=== PATIENT | female | born 1990 | race Caucasian/White ===

== ENCOUNTER 2018-01-30 10:51 | Outpatient (REF) | payer MEDICAID, SELFPAY ==
[2018-01-30 13:29] LABS: Bacteria Few HPF (Negative); C & S Indicated? No/Sq. Contamination; Casts Negative LPF (Negative); Crystals Negative HPF (Negative); Epithelial Cells Many HPF (Negative); Mucus Trace (Negative); RBC Negative (0-2); WBC 0-2 HPF (0-5)
== END 2018-01-30 11:11 ==
LOC: NCHCN 10:51
PROVIDERS: PCP Nurse Practitioner Family; Visit Provider Nurse Practitioner Family
DX: N39.0 Urinary tract infection, site not specified (principal); R10.9 Unspecified abdominal pain; Z87.442 Personal history of urinary calculi
CPT/HCPCS: 81015

== ENCOUNTER 2018-02-03 09:24 | Emergency (ER) | payer MEDICAID, SELFPAY ==
[2018-02-03 09:28] VITALS: BP 133/88; PULSE 123; RESP 16; TEMP 36.8; O2SAT 96
[2018-02-03 09:49] LABS: Bilirubin Negative (Negative); Blood Moderate (Negative); Clarity Cloudy; Glucose Negative (Negative); Ketones Trace mg/dL (Negative); Leukocyte Esterase Moderate (Negative); Nitrite Negative (Negative); Specific Gravity >= 1.030 (1.005-1.025); Urobilinogen 0.2 EU/dL (Up TO 0.2)
[2018-02-03 09:59] LABS: Epithelial Cells NT HPF (Negative); RBC NT (0-2)
[2018-02-03 10:00] LABS: Bacteria NT HPF (Negative); C & S Indicated? Yes; Casts NT LPF (Negative); Crystals NT HPF (Negative); Mucus NT (Negative)
--- NOTE | 2018-02-03 10:09 | ED.GENADUL_ITS ---
Discharge Plan Disposition Patient Disposition: HOME Condition: Improving Discharge Details Chief Complaint: FlankPain Clinical Impression: Pyelonephritis Primary Care Provider: Vicky Obrine ED Provider: Perla Abbott Home Meds and New Rx's Prescriptions: New sulfamethoxazole-trimethoprim [Bactrim DS] 800-160 mg tablet 1 tab PO BID 14 Days Qty: 28 RF: 0 ibuprofen [Motrin IB] 200 mg tablet 600 mg PO QID PRN (Reason: pain) Qty: 20 RF: 0 Continue methadone [Dolophine] 10 MG tablet 110 mg PO DAILY RF: 0 ibuprofen 400 MG tablet 800 mg PO TID PRNRF: 0 naproxen sodium [Aleve] 220 MG capsule 220 mg PO BID RF: 0 acetaminophen [Mapap Extra Strength] 500 MG tablet 1,000 mg PO Q6H 5 Days Qty: 60 RF: 0 lidocaine [Lidoderm] 1 PATCH adhesive patch,medicated 1 ea Topical Q24H Qty: 4 RF: 0 gabapentin 600 mg Tablet 600 mg PO BID RF: 0 paroxetine HCl [Paxil] 10 mg Tablet 10 mg PO DAILY RF: 0 amoxicillin 125 mg Tablet,Chewable 250 mg PO TID RF: 0 amitriptyline 10 mg Tablet 10 mg PO DAILY RF: 0 albuterol sulfate 90 mcg/actuation Hfa Aerosol Inhaler 1 puff INHALATION Q6H PRNRF: 0 fluticasone [Flovent HFA] 110 mcg/actuation Hfa Aerosol Inhaler 1 puff INHALATION BID RF: 0 acetaminophen [Tylenol] 325 MG tablet 650 mg PO Q4H PRN PRNRF: 0 polyethylene glycol 3350 17 GM powder in packet 17 gm PO DAILY PRN PRN (Reason: Constipation) RF: 0 Discharge Instructions Instructions: Urinary Tract Infection in Women (ED), Kidney Infection (ED) Additional Instructions: Take the antibiotics until finished. Alternate Tylenol and Motrin as needed and directed for pain. Immediately to the emergency department any worsening or new concerning symptoms. Follow-up with your urology at [place] as directed by your primary care doctor as planned. Discharge Data Discharge Date/Time-TO BE ENTERED AT DEPARTURE: 02/03/18 12:03 Discharge Physician: Perla Abbott Medical Decision Making 27-year-old female with left flank pain times 1 week, left lower and suprapubic abdominal pain with dysuria starting today. States symptoms feel similar to previous kidney stones. Heart rate 123 on arrival in triage, now 105 during evaluation room. Remainder vitals within normal limits. Afebrile. Left CVA tenderness and left lower quadrant and suprapubic tenderness. Differential diagnosis includes kidney stone, UTI, pyelonephritis, diverticulitis, muscle strain. Will place an IV, bolus IV fluids, labs, urinalysis and CT renal colic and will give a dose of Toradol and Compazine. 1100 -- Labs reviewed and urinalysis notes large amount of WBCs that obscure the microscopic exam. test negative. Remainder of labs note a normal white blood cell count of 10. CT negative for acute findings. Patient is complaining of pain. History of opiate drug abuse. As there is no acute findings on CT, she complained of left sided tenderness, this can be due to a UTI/Pyelonephritis. Will give a dose of valium for muscle relaxer and dose of antibiotics. 1120 --patient feels better after dose of Valium. She feels good and is requesting to go home. Was sent home with prescription for Bactrim. She also requests a prescription for Motrin. She is instructed to alternate Tylenol and Motrin, finish antibiotics and follow-up with her planned appointment with urology at [place]. She is instructed to return immediately if worse. HPI General Mode of arrival: ambulatory . Date/Time Provider Initiated Documentation: 02/03/18 09:34 . Limitations to Documentation: no limitations . Information obtained by: patient . HPI Narrative: Patient is a 27-year-old female w/ a h/o kidney stones who presents the ED with a complaint of left flank pain and fatigue times 1 week, and lower abdominal pain and dysuria today. States she had lower abdominal pain with urination 3 weeks ago but that improved and she thought she possibly passed a kidney stone. Patient states her pain for some like previous kidney stones he has had in the past. She states her abdominal pain burning and located in the suprapubic region and left lower quadrant. She admits to nausea but denies any vomiting, diarrhea, hematuria. She states she is sexually active with one partner and does not use protection but denies any vaginal discharge, lesions, or known exposure to STD. She states her last bowel movement was last night and within normal limits and denies any rectal bleeding. Past medical history: Asthma, depression, migraines, fibromyalgia, kidney stones , AVNRT Surgical history: , tubal ligation, thoracic spinal fusion, AV node ablation, lithotripsy, foot surgery Social history: Smokes tobacco, occasional alcohol use, daily marijuana. Previous history of heroin and prescription drug abuse Medications: Methadone, Motrin, Tylenol, amoxicillin for 5 days for a current tooth abscess Allergies: Demerol (anaphylaxis), lithium, Zoloft PCP: Vicky Obrien Related Data Home Medications Medication Instructions Recorded Confirmed methadone [Dolophine] 110 mg PO DAILY 12/25/15 02/03/18 acetaminophen [Tylenol] 650 mg PO Q4H PRN PRN tab 04/27/17 02/03/18 polyethylene glycol 3350 17 gm PO DAILY PRN PRN packet 04/27/17 02/03/18 acetaminophen [Mapap Extra 1,000 mg PO Q6H 5 Days #60 tab 11/19/17 02/03/18 Strength] ibuprofen 800 mg PO TID PRN 11/19/17 02/03/18 lidocaine [Lidoderm] 1 ea TOPICAL Q24H #4 patch 11/19/17 02/03/18 naproxen sodium [Aleve] 220 mg PO BID 11/19/17 02/03/18 albuterol sulfate 1 puff INHALATION Q6H PRN 02/03/18 02/03/18 amitriptyline 10 mg PO DAILY 02/03/18 02/03/18 amoxicillin 250 mg PO TID 02/03/18 02/03/18 fluticasone [Flovent HFA] 1 puff INHALATION BID 02/03/18 02/03/18 gabapentin 600 mg PO BID 02/03/18 02/03/18 ibuprofen [Motrin IB] 600 mg PO QID PRN #20 tab 02/03/18 paroxetine HCl [Paxil] 10 mg PO DAILY 02/03/18 02/03/18 sulfamethoxazole-trimethoprim 1 tab PO BID 14 Days #28 tab 02/03/18 [Bactrim DS] Previous Rx's Medication Instructions Recorded acetaminophen [Tylenol] 650 mg PO Q4H PRN PRN tab 04/27/17 polyethylene glycol 3350 17 gm PO DAILY PRN PRN packet 04/27/17 acetaminophen [Mapap Extra 1,000 mg PO Q6H 5 Days #60 tab 11/19/17 Strength] lidocaine [Lidoderm] 1 ea TOPICAL Q24H #4 patch 11/19/17 ibuprofen [Motrin IB] 600 mg PO QID PRN #20 tab 02/03/18 sulfamethoxazole-trimethoprim 1 tab PO BID 14 Days #28 tab 02/03/18 [Bactrim DS] Allergies Allergy/AdvReac Type Severity Reaction Status Date / Time meperidine HCl [From Demerol] Allergy Severe Anaphylaxsi Unverified 11/19/17 10: 09 s venom-honey bee Allergy Severe anaphylaxis Unverified 11/19/17 10:09 [bee venom (honey bee)] lithium AdvReac Mild NAUSEA Unverified 11/19/17 10:09 sertraline HCl [From Zoloft] AdvReac Mild NIGHTMARES Unverified 11/19/17 10:09 General Stated Complaint: FlankPain KALINA: 3 Review of Systems Review of Systems All systems reviewed & are unremarkable except as noted in HPI and below Constitutional Denies chills, Denies excessive sweating, Reports fatigue, Denies fever(s), Denies weakness and Denies weight loss Eyes Reports system reviewed and no additional complaints, except as docu and Denies blurry vision ENT Denies vertigo, Denies dizziness, Denies otalgia, Denies nasal congestion, Denies sore throat and Denies throat swelling Cardiovascular Denies chest pain, Denies syncope, Denies rapid heart rate and Denies dyspnea Respiratory Denies dyspnea Gastrointestinal Reports abdominal pain, Denies diarrhea, Reports nausea and Denies vomiting Genitourinary Denies hematuria, Denies dysuria and Reports flank pain Musculoskeletal Reports back pain and Denies joint swelling Integumentary/Breasts Denies lesions and Denies rash Neurologic Denies behavioral changes, Denies confusion, Denies vertigo, Denies dizziness, Denies syncope and Denies weakness Psychiatric Denies behavioral changes, Denies confusion and Denies depression Endocrine Denies excessive sweating and Reports fatigue Hematologic/Lymphatic Denies easy bruising and Denies lymphadenopathy Allergic/Immunologic Denies throat swelling PFSH Social History Smoking/Tobacco Use Status: Current every day Exam Const General: cooperative and healthy appearing Orientation: alert and awake HENFL Head: normal to inspection Ears: hearing grossly normal bilaterally and external ears normal General nose exam: external nose normal Face and sinus: normal facial exam Mouth: oral mucosae normal Eyes General: appearance normal, both eyes and all related structures Eyelids: eyelids normal EOM: EOM intact bilaterally Neck Neck: normal visual inspection Lymphatic: no lymphadenopathy noted Chest Chest: normal inspection of the chest Resp Effort & Inspection: normal respiratory effort and able to speak in complete sentences Auscultation: clear to auscultation bilaterally Cardio Rate: regular rate Rhythm: regular rhythm GI Inspection: normal to inspection Palpation: soft, not firm, no guarding, no hepatosplenomegaly, no masses and tender in the LLQ and suprapubicly Auscultation: normal bowel sounds Back/Spine/Pelvis Back: CVA tenderness (Left side) Thoracic/Lumbar Spine: surgical scar(s) present (extending along length of midline thoracic spine) Skin General skin exam: no rashes or lesions noted Neuro General: alert and awake Cognition: normal cognition Speech: speech normal Gait: normal gait Motor: muscle tone normal throughout Sensory Exam: no sensory deficits noted Extrem General: normal to inspection, full ROM and no edema Psych Appearance: grossly normal Mental Status: mental status grossly normal Speech and Movement: speech and movement normal Affect: normal affect Thought Process: normal Course Vital Signs Temperature 98.2 F 02/03/18 09:28 Pulse 123 H 02/03/18 09:28 Respiratory Rate 16 02/03/18 09:28 Blood Pressure 133/88 02/03/18 09:28 Pulse Oximetry 96 02/03/18 09:28 Temperature 98.2 F 02/03/18 09:28 Temperature Source Temporal Artery Scan 02/03/18 09:28 Pulse 123 H 02/03/18 09:28 Respiratory Rate 16 02/03/18 09:28 Respiratory Effort Non-Labored 02/03/18 09:31 Blood Pressure 133/88 02/03/18 09:28 Blood Pressure Position Sitting 02/03/18 09:28 Pulse Oximetry 96 02/03/18 09:28 Oxygen Delivery Method Room Air 02/03/18 09:28 Oxygen Flow Rate 0 02/03/18 09:28 Pain Level 6 02/03/18 09:32 Lab/Test Results Lab/Test Results: 02/03/18 09:41 Urine - Reflex from Ua Urine Culture - Pending Laboratory Tests Range/Units 02/03/18 09:41 Urine Color (Yellow) Yellow Urine Clarity Cloudy Urine pH (5-8) 6.0 Ur Specific [place] (1.005-1.025) >= 1.030 H Urine Protein (Negative) mg/dL 30 H Urine Ketones (Negative) mg/dL Trace H Urine Blood (Negative) Moderate H Urine Nitrite (Negative) Negative Urine Bilirubin (Negative) Negative Urine Urobilinogen (Up TO 0.2) EU/dL 0.2 Ur Leukocyte Esterase (Negative) Moderate H Urine RBC NT Urine WBC (0-5) HPF Ur Epithelial Cells NT Urine Crystals NT Urine Bacteria NT Urine Casts NT Urine Mucus NT Ur Culture Indicated? Yes Urine Glucose (Negative) mg/dL Negative
[2018-02-03 10:16] LABS: Abs Immature Grans 0.04 k/cumm (0.0-0.09); Absolute Basophil Count 0.02 k/cumm (0.0-0.2); Absolute Eosinophil Count 0.25 k/cumm (0.0-0.7); Absolute Lymphocyte Count 2.33 k/cumm (1.2-3.4); Absolute Monocyte Count 0.79 k/cumm (0.11-0.7); Absolute Neutrophil Count 6.85 k/cumm (1.2-6.7); Basophils % 0.2; Eosinophils % 2.4; HCT 39.6 % (36.0-46.0); HGB 13.1 g/dL (12.0-15.5); Immature Grans % 0.4; Lymphocytes % 22.7; Mean Corp. HGB Concentration 33.1 g/dL (32.0-36.0); Mean Corpuscular Hemoglobin 31.7 pg (27.0-33.0); Mean Corpuscular Volume 95.9 fL (80-95); Monocytes % 7.7; Neutrophils % 66.6; Platelet Count 283 x1000/uL (130-400); RBC 4.13 m/cumm (4.00-5.20); RBC Distribution Width 12.3 % (11.7-14.6); White Blood Cell Count 10.28 k/cumm (4.4-10.8)
[2018-02-03] MEDS: Normal Saline 1,000 ML 1000 ML IV (10:16)
[2018-02-03] MEDS: Ketorolac 30 MG/ML VIAL IVP (10:17)
[2018-02-03] MEDS: Prochlorperazine 10 MG/2 ML VIAL IVP (10:17)
[2018-02-03 10:29] LABS: ALT 66 U/L (12-78); AST 40 U/L (15-37); Albumin 3.2 g/dL (3.4-5.0); Alkaline Phosphatase 137 U/L (46-116); Anion Gap 7.5 mmol/L (3-11); BUN 14 mg/dL (7-18); Bilirubin, Total 0.2 mg/dL (0.2-1.0); CO2 30.5 mmol/L (21.0-32.0); CREATININE 0.85 mg/dL (0.55-1.02); Calcium 8.6 mg/dL (8.5-10.1); Chloride 103 mmol/L (98-107); Glucose 119 mg/dL (70-100); Lipase 73 U/L (73-393); Potassium 3.9 mmol/L (3.5-5.1); Sodium 141 mmol/L (136-145); Total Protein 7.6 g/dL (6.4-8.2)
--- NOTE | 2018-02-03 10:32 | DI.CT_ITS ---
SYMPTOMS/DIAGNOSIS: LEFT FLANK PAIN, ? KIDNEY STONE ABDOMINAL AND PELVIC CT: CT examination of the abdomen and pelvis was performed without contrast administration. There are Tejeda rods in the lower thoracic spine. Images obtained through the lung bases are unremarkable. There is biconvex thoracolumbar scoliosis. Visualized portions of the liver and spleen are unremarkable. Gallbladder, bile ducts and pancreas appear unremarkable. Adrenals and kidneys are normal in appearance. No evidence of urinary tract calcification or obstruction. No significant abdominal wall hernia is seen. No significant abdominal or pelvic adenopathy is seen. Appendix appears normal. COLLECTIONS TECHNICIAN structures appear intact. No evidence of diverticulitis or bowel obstruction. CONCLUSION: Negative examination of the abdomen and pelvis. No evidence of urinary tract obstruction or calcification.
--- NOTE | 2018-02-03 10:55 | DI.VRAD_ITS ---
EXAM: CT Abdomen and Pelvis Without Intravenous Contrast CLINICAL HISTORY: 27 years old, female; Pain; Abdominal pain; Flank; Left; Patient HX: Left flank pain x3 days, HX of kidney stones with removal on right side years ago. ; Additional info: Best images obtained due to artifact from scoliosis rodding in mid back. TECHNIQUE: Axial computed tomography images of the abdomen and pelvis without intravenous contrast. All CT scans at this facility use at least one of these dose optimization techniques: automated exposure control; mA and/or kV adjustment per patient size (includes targeted exams where dose is matched to clinical indication); or iterative reconstruction. Coronal and sagittal reformatted images were created and reviewed. COMPARISON: CT CHEST FOR PE, ABD PELVIS W 04/24/2017 12:00 AM FINDINGS: Appendix is normal. No renal or ureteral stones. Extensive sonya fixation of the thoracic spine. Normal appearing solid organs. No intestinal obstruction. No obstructive uropathy. No free fluid. No free air. No inflammatory changes. IMPRESSION: No specific etiology identified for the patient's symptoms. Dictated and Authenticated by: Al Garcia MD. Ordering:HALIMA DUPREE MD
[2018-02-03] MEDS: Diazepam 5 MG TAB PO (11:05)
[2018-02-03] MEDS: Sulfameth/Trimeth DS TAB 1 TAB PO (11:36)
[2018-02-03 12:02] VITALS: BP 126/85; PULSE 60; RESP 12; TEMP 36.6; O2SAT 98
== END 2018-02-03 12:03 | disposition home or self-care (01) ==
PROVIDERS: Emergency Provider Physician Assistant; PCP Nurse Practitioner Family
DX: N10 Acute pyelonephritis (principal); Z87.442 Personal history of urinary calculi
CPT/HCPCS: 36415; 80053; 83690; 87077; 96361; 96374; 96375; 99284; 74176; 81003; 81015; 85025; 87086; 87186; 99285; J0780; J1885

== ENCOUNTER 2018-02-14 22:11 | Emergency (ER) | payer MEDICAID, SELFPAY ==
[2018-02-14] VITALS (10 sets, daily range): BP systolic 126; BP diastolic 77; PULSE 71–94; RESP 11–23; TEMP 36.7; O2SAT 98
[2018-02-14 22:38] LABS: Bilirubin Negative (Negative); Blood Negative (Negative); Clarity Clear; Glucose Negative (Negative); Ketones Negative (Negative); Leukocyte Esterase Trace (Negative); Nitrite Negative (Negative); Specific Gravity 1.025 (1.005-1.025); Urobilinogen 0.2 EU/dL (Up TO 0.2); pH 6.5 (5-8)
[2018-02-14 22:46] LABS: Bacteria Few HPF (Negative); Epithelial Cells Many HPF (Negative); RBC Negative (0-2)
[2018-02-14 22:47] LABS: C & S Indicated? No/Sq. Contamination; Casts Negative LPF (Negative); Crystals Negative HPF (Negative); Mucus Negative (Negative)
[2018-02-14] MEDS: Promethazine 25 MG TAB PO (23:04)
[2018-02-14] MEDS: Ketorolac 15 MG/ML VIAL IVP (23:05)
[2018-02-14] MEDS: Normal Saline 1,000 ML 1000 ML IV (23:05)
[2018-02-14 23:09] LABS: Abs Immature Grans 0.03 k/cumm (0.0-0.09); Absolute Basophil Count 0.02 k/cumm (0.0-0.2); Absolute Eosinophil Count 0.29 k/cumm (0.0-0.7); Absolute Lymphocyte Count 2.44 k/cumm (1.2-3.4); Absolute Monocyte Count 0.58 k/cumm (0.11-0.7); Absolute Neutrophil Count 5.86 k/cumm (1.2-6.7); Basophils % 0.2; Eosinophils % 3.1; HCT 40.1 % (36.0-46.0); HGB 13.3 g/dL (12.0-15.5); Immature Grans % 0.3; Lymphocytes % 26.5; Mean Corp. HGB Concentration 33.2 g/dL (32.0-36.0); Mean Corpuscular Hemoglobin 31.7 pg (27.0-33.0); Mean Corpuscular Volume 95.7 fL (80-95); Mean Platelet Volume 10.5 fL (8.0-11.0); Monocytes % 6.3; Neutrophils % 63.6; Platelet Count 255 x1000/uL (130-400); RBC 4.19 m/cumm (4.00-5.20); RBC Distribution Width 12.4 % (11.7-14.6); White Blood Cell Count 9.22 k/cumm (4.4-10.8)
[2018-02-14 23:16] LABS: ALT 62 U/L (12-78); AST 38 U/L (15-37); Albumin 3.5 g/dL (3.4-5.0); Alkaline Phosphatase 125 U/L (46-116); Anion Gap 8.6 mmol/L (3-11); BUN 18 mg/dL (7-18); Bilirubin, Total 0.3 mg/dL (0.2-1.0); CO2 30.4 mmol/L (21.0-32.0); CREATININE 0.88 mg/dL (0.55-1.02); Chloride 101 mmol/L (98-107); Glucose 121 mg/dL (70-100); Potassium 3.6 mmol/L (3.5-5.1); Sodium 140 mmol/L (136-145); Total Protein 7.6 g/dL (6.4-8.2)
[2018-02-15] VITALS (30 sets, daily range): PULSE 67–95; RESP 8–18
--- NOTE | 2018-02-15 00:50 | W.ED.GENAD ---
Discharge Plan Disposition Patient Disposition: HOME Condition: Stable Discharge Details Chief Complaint: FlankPain Clinical Impression: UTI (urinary tract infection), Back pain Primary Care Provider: Vicky Obrien ED Provider: Macho Hinojosa Home Meds and New Rx's Prescriptions: New sulfamethoxazole-trimethoprim [Bactrim DS] 800-160 mg tablet 1 tab PO BID 7 Days Qty: 14 RF: 0 Continue methadone [Dolophine] 10 MG tablet 110 mg PO DAILY RF: 0 naproxen sodium [Aleve] 220 MG capsule 220 mg PO BID RF: 0 acetaminophen [Mapap Extra Strength] 500 MG tablet 1,000 mg PO Q6H 5 Days Qty: 60 RF: 0 gabapentin 600 mg Tablet 600 mg PO BID RF: 0 paroxetine HCl [Paxil] 10 mg Tablet 10 mg PO DAILY RF: 0 amitriptyline 10 mg Tablet 10 mg PO DAILY RF: 0 albuterol sulfate 90 mcg/actuation Hfa Aerosol Inhaler 1 puff INHALATION Q6H PRNRF: 0 fluticasone [Flovent HFA] 110 mcg/actuation Hfa Aerosol Inhaler 1 puff INHALATION BID RF: 0 ibuprofen [Motrin IB] 200 mg tablet 600 mg PO QID PRN (Reason: pain) Qty: 20 RF: 0 acetaminophen [Tylenol] 325 MG tablet 650 mg PO Q4H PRN PRNRF: 0 polyethylene glycol 3350 17 GM powder in packet 17 gm PO DAILY PRN PRN (Reason: Constipation) RF: 0 Discontinued sulfamethoxazole-trimethoprim [Bactrim DS] 800-160 mg tablet 1 tab PO BID 14 Days Qty: 28 RF: 0 Discharge Instructions Instructions: Urinary Tract Infection in Women (ED), Back Pain (ED) Additional Instructions: Return to the emergency department for any new or worsening symptoms otherwise feel your antibiotics and take them as prescribed. If you are not improving over the next week follow-up with your primary care provider for reassessed Referrals: Vicky Obrien [Primary Care Provider] - (As needed for reassessment or if not improving over the next) Discharge Data Discharge Date/Time-TO BE ENTERED AT DEPARTURE: 02/15/18 05:05 Medical Decision Making Patient presenting to the emergency department for chief complaint of urinary tract infection with back pain. Patient states that she has previously had symptoms like this with urinary frequency and urgency with some slight dysuria and ended up with a kidney infection. Patient states a couple weeks ago she was seen here in the emergency department for urinary tract infection and prescribed antibiotics which she never filled or started. Over the past couple days she has felt increased malaise, increased back pain, and her urinary symptoms. Patient states that she is concerned that she has a kidney infection. Physical exam shows diffuse back tenderness both with CVA testing but also to even light touch of the back which I feel is abnormal. Otherwise physical exam is unremarkable. Plan to check labs, give IV fluids, ketorolac Zofran and check urinalysis After review of urinalysis which shows only mild infection versus contamination and labs are otherwise unremarkable patient reassessed. Patient continues to have diffuse back tenderness to even light palpation. I feel that patient may have a borderline UTI and because she is symptomatic I do feel that she needs treatment. In regards to patient's back pain I doubt this is pyelonephritis due to diffuse even light touch of the shoulders patient states excruciating discomfort. Still plan to place patient on Bactrim DS twice daily for a week. In regards to her back pain, patient is sleeping in a hotel bed which I feel may be the source of the diffuse nonfocal tenderness. Patient is otherwise stable with no emergent concerns I feel that she is stable for discharge. Thoroughly discussed with patient need to complete antibiotic therapy if prescribed and significant risk for sepsis and if she does not follow recommended orders. After discussion of diagnosis and plan of care patient has no further needs, questions, or concerns and states clear understanding to return to the emergency department for any worsening symptoms. HPI General Mode of arrival: EMS. Date/Time Provider Initiated Documentation: 02/14/18 22:31. Limitations to Documentation: no limitations. Information obtained by: RN notes reviewed and old records reviewed. History of Present Illness 27 year old F presents to the emergency department with the chief complaint of UTI, with intensity rated at 6. Quality is described as aching, and is localized to the back. Patient started experiencing this day(s) (3) and it has been constant. No relieving factors improve symptom(s), No exacerbating factors reported . Patient notes no other symptoms.. Patient did receive the following treatments prior to arrival, none Related Data Home Medications Medication Instructions Recorded Confirmed methadone [Dolophine] 110 mg PO DAILY 12/25/15 02/14/18 acetaminophen [Tylenol] 650 mg PO Q4H PRN PRN tab 04/27/17 02/14/18 polyethylene glycol 3350 17 gm PO DAILY PRN PRN packet 04/27/17 02/14/18 acetaminophen [Mapap Extra 1,000 mg PO Q6H 5 Days #60 tab 11/19/17 02/14/18 Strength] naproxen sodium [Aleve] 220 mg PO BID 11/19/17 02/14/18 albuterol sulfate 1 puff INHALATION Q6H PRN 02/03/18 02/14/18 amitriptyline 10 mg PO DAILY 02/03/18 02/14/18 fluticasone [Flovent HFA] 1 puff INHALATION BID 02/03/18 02/14/18 gabapentin 600 mg PO BID 02/03/18 02/14/18 ibuprofen [Motrin IB] 600 mg PO QID PRN #20 tab 02/03/18 02/14/18 paroxetine HCl [Paxil] 10 mg PO DAILY 02/03/18 02/14/18 sulfamethoxazole-trimethoprim 1 tab PO BID 7 Days #14 tab 02/15/18 [Bactrim DS] Previous Rx's Medication Instructions Recorded acetaminophen [Tylenol] 650 mg PO Q4H PRN PRN tab 04/27/17 polyethylene glycol 3350 17 gm PO DAILY PRN PRN packet 04/27/17 acetaminophen [Mapap Extra 1,000 mg PO Q6H 5 Days #60 tab 11/19/17 Strength] ibuprofen [Motrin IB] 600 mg PO QID PRN #20 tab 02/03/18 sulfamethoxazole-trimethoprim 1 tab PO BID 7 Days #14 tab 02/15/18 [Bactrim DS] Allergies Allergy/AdvReac Type Severity Reaction Status Date / Time meperidine HCl [From Demerol] Allergy Severe Anaphylaxsi Unverified 02/14/18 22:24 s venom-honey bee Allergy Severe anaphylaxis Unverified 02/14/18 22:24 [bee venom (honey bee)] lithium AdvReac Mild NAUSEA Unverified 02/14/18 22:24 sertraline HCl [From Zoloft] AdvReac Mild NIGHTMARES Unverified 02/14/18 22:24 General Stated Complaint: FlankPain KALINA: 3 Review of Systems Constitutional Denies body ache(s), Reports chills, Reports fever(s), Denies malaise and Denies weakness Cardiovascular Denies chest pain Respiratory Reports system reviewed and no additional complaints, except as docu Gastrointestinal Denies abdominal pain, Denies nausea and Denies vomiting Genitourinary Reports as per HPI, Denies hematuria, Reports urinary frequency, Reports dysuria, Reports urinary hesitancy, Reports urinary urgency and Denies vaginal discharge Musculoskeletal Reports back pain Neurologic Denies confusion and Denies weakness Psychiatric Denies confusion [facility] Social History Smoking/Tobacco Use Status: Current every day Exam Const General: cooperative and no acute distress Orientation: alert, awake and oriented x3 Resp Effort & Inspection: normal respiratory effort and able to speak in complete sentences Auscultation: clear to auscultation bilaterally Cardio Rate: regular rate Rhythm: regular rhythm Heart Sounds: S1 normal and S2 normal GI Palpation: nontender Back/Spine/Pelvis Back: CVA tenderness and back tenderness (Diffuse nonfocal) Cervical Spine: cervical ROM normal Thoracic/Lumbar Spine: thoraco-lumbar ROM normal Neuro General: alert, awake and oriented x3 Extrem General: normal capillary refill Course Vital Signs Temperature 36.7 C 02/14/18 22:19 Pulse 90 02/14/18 22:19 Respiratory Rate 13 02/14/18 22:19 Blood Pressure 126/77 02/14/18 22:19 Pulse Oximetry 98 02/14/18 22:19 Temperature 36.7 C 02/14/18 22:19 Temperature Source Skin 02/14/18 22:19 Pulse 90 02/14/18 22:19 Respiratory Rate 13 02/14/18 22:19 Respiratory Effort Non-Labored 02/14/18 22:22 Blood Pressure 126/77 02/14/18 22:19 Blood Pressure Position Sitting 02/14/18 22:19 Pulse Oximetry 98 02/14/18 22:19 Oxygen Delivery Method Room Air 02/14/18 22:19 Oxygen Flow Rate 0 02/14/18 22:19 Pain Level 8 02/14/18 23:05 Lab/Test Results Lab/Test Results: Laboratory Tests Range/Units 02/14/18 02/14/18 02/14/18 22:15 22:40 22:40 WBC (4.4-10.8) k/cumm 9.22 RBC (4.00-5.20) m/cumm 4.19 Hgb (12.0-15.5) g/dL 13.3 Hct (36.0-46.0) % 40.1 MCV (80-95) fL 95.7 H MCH (27.0-33.0) pg 31.7 MCHC (32.0-36.0) g/dL 33.2 RDW (11.7-14.6) % 12.4 Plt Count (130-400) x1000/uL 255 MPV (8.0-11.0) fL 10.5 Immature Gran % 0.3 Neutrophils % 63.6 Lymphocytes % 26.5 Monocytes % 6.3 Eosinophils % 3.1 Basophils % 0.2 Absolute Neutrophils (1.2-6.7) k/cumm 5.86 Absolute Lymphocytes (1.2-3.4) k/cumm 2.44 Absolute Monocytes (0.11-0.7) k/cumm 0.58 Absolute Eosinophils (0.0-0.7) k/cumm 0.29 Absolute Basophils (0.0-0.2) k/cumm 0.02 Sodium (136-145) mmol/L 140 Potassium (3.5-5.1) mmol/L 3.6 Chloride (98-107) mmol/L 101 Carbon Dioxide (21.0-32.0) mmol/L 30.4 Anion Gap (3-11) mmol/L 8.6 BUN (7-18) mg/dL 18 Creatinine (0.55-1.02) mg/dL 0.88 Estimated GFR/1.73 m2 (mL/min/1.73m2) >= 60.00 Glucose (70-100) mg/dL 121 H Calcium (8.5-10.1) mg/dL 9.0 Total Bilirubin (0.2-1.0) mg/dL 0.3 AST (15-37) U/L 38 H ALT (12-78) U/L 62 Alkaline Phosphatase (46-116) U/L 125 H Total Protein (6.4-8.2) g/dL 7.6 Albumin (3.4-5.0) g/dL 3.5 Urine Color (Yellow) Yellow Urine Clarity Clear Urine pH (5-8) 6.5 Ur Specific [place] (1.005-1.025) 1.025 Urine Protein (Negative) mg/dL Negative Urine Ketones (Negative) mg/dL Negative Urine Blood (Negative) Negative Urine Nitrite (Negative) Negative Urine Bilirubin (Negative) Negative Urine Urobilinogen (Up TO 0.2) EU/dL 0.2 Ur Leukocyte Esterase (Negative) Trace H Urine RBC (0-2) Negative Urine WBC (0-5) HPF 5-10 Ur Epithelial Cells (Negative) HPF Many Urine Crystals (Negative) HPF Negative Urine Bacteria (Negative) HPF Few Urine Casts (Negative) LPF Negative Urine Mucus (Negative) Negative Ur Culture Indicated? No/sq. contamination Urine Glucose (Negative) mg/dL Negative
[2018-02-15] MEDS: Sulfameth/Trimeth DS TAB 1 TAB PO (01:56)
== END 2018-02-15 05:05 | disposition home or self-care (01) ==
PROVIDERS: Emergency Provider Nurse Practitioner Family; PCP Nurse Practitioner Family
DX: N39.0 Urinary tract infection, site not specified (principal); M54.9 Dorsalgia, unspecified
CPT/HCPCS: 80053; 96361; 96374; 99284; 81003; 81015; 85025; J1885

== ENCOUNTER 2018-03-01 15:54 | Outpatient (REF) | payer MEDICAID, SELFPAY | END 2018-03-01 16:14 | LOC: NCHCN 15:54 | PROVIDERS: PCP Nurse Practitioner Family; Visit Provider Nurse Practitioner | DX: N39.0 Urinary tract infection, site not specified (principal) | CPT/HCPCS: 87086 ==

== ENCOUNTER 2018-03-09 15:04 | Outpatient (CLI) | payer MEDICAID, SELFPAY ==
--- NOTE | 2018-03-09 14:55 | DI.RAD_ITS ---
SYMPTOMS/DIAGNOSIS: SHORTNESS OF BREATH, R06.02 PA AND LATERAL CHEST: Comparison 05/29/17. There are again spinal rods traversing the thoracic spine. There is again seen a right convex scoliosis of the thoracic spine. The heart size and pulmonary vasculature are within normal limits. The lungs are clear and well expanded. No effusions or pneumothoraces are identified. IMPRESSION: No acute pulmonary process.
== END 2018-03-09 15:24 ==
PROVIDERS: PCP Nurse Practitioner Family; Visit Provider Nurse Practitioner Family
DX: R06.02 Shortness of breath (principal)
CPT/HCPCS: 71046

== ENCOUNTER 2018-03-26 12:03 | Emergency (ER) | payer MEDICAID, SELFPAY ==
[2018-03-26] VITALS (32 sets, daily range): BP systolic 102–154; BP diastolic 58–93; PULSE 64–122; RESP 9–25; TEMP 36.8–37.3; O2SAT 85–99
--- NOTE | 2018-03-26 12:15 | W.ED.GENAD ---
Discharge Plan Disposition Patient Disposition: HOME Condition: Stable Discharge Details Chief Complaint: GenMedical Clinical Impression: Community acquired pneumonia Primary Care Provider: Vicky Obrien ED Provider: Charisma Islas Home Meds and New Rx's Prescriptions: New doxycycline hyclate 100 mg tablet 100 mg PO BID Qty: 19 RF: 0 Continue methadone [Dolophine] 10 MG tablet 120 mg PO DAILY RF: 0 naproxen sodium [Aleve] 220 MG capsule 220 mg PO BID RF: 0 acetaminophen [Mapap Extra Strength] 500 MG tablet 1,000 mg PO Q6H 5 Days Qty: 60 RF: 0 gabapentin 600 mg Tablet 600 mg PO BID RF: 0 paroxetine HCl [Paxil] 10 mg Tablet 10 mg PO DAILY RF: 0 albuterol sulfate 90 mcg/actuation Hfa Aerosol Inhaler 1 puff INHALATION Q6H PRNRF: 0 fluticasone [Flovent HFA] 110 mcg/actuation Hfa Aerosol Inhaler 1 puff INHALATION BID RF: 0 ibuprofen [Motrin IB] 200 mg tablet 600 mg PO QID PRN (Reason: pain) Qty: 20 RF: 0 acetaminophen [Tylenol] 325 MG tablet 650 mg PO Q4H PRN PRNRF: 0 polyethylene glycol 3350 17 GM powder in packet 17 gm PO DAILY PRN PRN (Reason: Constipation) RF: 0 Discharge Instructions Instructions: Sleep Apnea (GEN), Community Acquired Pneumonia (ED) Additional Instructions: Please return immediately to the emergency department if you develop any new or worsening symptoms or if you become otherwise concerned. It is extremely important that you make an appointment to be seen in follow-up for this visit by your primary care doctor within the next 1-2 weeks. Referrals: Vicky Obrien [Primary Care Provider] - Medical Decision Making Ghada Ervin is a 27-year-old woman with history of IV drug use, brain aneurysm status post coiling, AVNRT status post ablation, on methadone presenting to the emergency department with 1 month of fevers, cough, shortness of breath and vomiting/diarrhea since yesterday. On exam patient is well and nontoxic appearing. She is tachycardic without murmur, lungs are clear. There is no abdominal tenderness. There is no rash. No posterior calf tenderness. Neuro exam is grossly nonfocal. Patient is afebrile here concern for persistent UTI, pneumonia, metabolic/light derangement, dehydration less likely PE, endocarditis. Exam/history not consistent with meningitis, ACS, acute emergent intra-abdominal process. Plan for EKG, screening labs, IV fluid hydration, chest x-ray, UA. Will monitor and reassess. Chest x-ray shows possible PNA, labs show mild leukocytosis. Patient with intermittent O2 sat drops into high 80s while sleeping. Patient's boyfriend reports that he has noticed. Will patient breathes irregularly at night while sleeping. Possible sleep apnea. Patient with negative d-dimer, however given patient complaining of shortness of breath, chest pain will plan for CT chest. CT chest shows right middle and lower lobe pneumonia. Will treat with doxycycline to avoid QT prolonging medications. Lengthy discussion with patient regarding findings, return to emergency department precautions, and importance of outpatient follow-up with PCP for her pneumonia and possible sleep apnea. Patient is amenable to the plan. Medical Records Medical records reviewed: Yes I reviewed the patient's medical records. Imaging Data Radiologic Study: Attestation: I personally reviewed and interpreted this imaging study as follows: Radiologist's impression: PA AND LATERAL CHEST: Comparison 05/29/17 and 03/09/18. The heart size and pulmonary vasculature are stable. The spinal rods appear stable in position. There is a question of increased lung markings in the right base compared to prior examinations. The left lung is clear. No effusions or pneumothoraces are identified. IMPRESSION: Question of a right basilar infiltrate. This may represent a developing pneumonia. Clinical correlation is recommended. Lab Data Lab results reviewed: Yes I reviewed the patient's lab results. Lab results narrative: urine preg neg per nursing 03/26/18 13:20 Blood Blood Culture - Pending 03/26/18 13:05 Blood Blood Culture - Pending Laboratory Tests Range/Units 03/26/18 03/26/18 03/26/18 13:05 13:05 13:05 WBC (4.4-10.8) k/cumm RBC (4.00-5.20) m/cumm Hgb (12.0-15.5) g/dL Hct (36.0-46.0) % MCV (80-95) fL MCH (27.0-33.0) pg MCHC (32.0-36.0) g/dL RDW (11.7-14.6) % Plt Count (130-400) x1000/uL MPV (8.0-11.0) fL Immature Gran % Neutrophils % Lymphocytes % Monocytes % Eosinophils % Basophils % Absolute Neutrophils (1.2-6.7) k/cumm Absolute Lymphocytes (1.2-3.4) k/cumm Absolute Monocytes (0.11-0.7) k/cumm Absolute Eosinophils (0.0-0.7) k/cumm Absolute Basophils (0.0-0.2) k/cumm D-Dimer (<500) ng/mlFEU 446 Sodium (136-145) mmol/L 139 Potassium (3.5-5.1) mmol/L 4.3 Chloride (98-107) mmol/L 103 Carbon Dioxide (21.0-32.0) mmol/L 27.2 Anion Gap (3-11) mmol/L 8.8 BUN (7-18) mg/dL 19 H Creatinine (0.55-1.02) mg/dL 0.85 Estimated GFR/1.73 m2 (mL/min/1.73m2) >= 60.00 Glucose (70-100) mg/dL 93 Lactate (0.6-1.4) mmol/L Calcium (8.5-10.1) mg/dL 9.1 Total Bilirubin (0.2-1.0) mg/dL 0.3 AST (15-37) U/L 60 H ALT (12-78) U/L 75 Alkaline Phosphatase (46-116) U/L 119 H Troponin I (0.00-0.06) ng/mL < 0.02 Total Protein (6.4-8.2) g/dL 7.2 Albumin (3.4-5.0) g/dL 3.2 L TSH (0.358-3.74) uIU/mL 0.38 Urine Color (Yellow) Urine Clarity Urine pH (5-8) Ur Specific [place] (1.005-1.025) Urine Protein (Negative) mg/dL Urine Ketones (Negative) mg/dL Urine Blood (Negative) Urine Nitrite (Negative) Urine Bilirubin (Negative) Urine Urobilinogen (Up TO 0.2) EU/dL Ur Leukocyte Esterase (Negative) Urine Glucose (Negative) mg/dL Range/Units 03/26/18 03/26/1803/26/18 13:05 13:05 13:10 WBC (4.4-10.8) k/cumm 12.93 H RBC (4.00-5.20) m/cumm 3.78 L Hgb (12.0-15.5) g/dL 12.0 Hct (36.0-46.0) % 36.6 MCV (80-95) fL 96.8 H MCH (27.0-33.0) pg 31.7 MCHC (32.0-36.0) g/dL 32.8 RDW (11.7-14.6) % 13.3 Plt Count (130-400) x1000/uL 236 MPV (8.0-11.0) fL 11.2 H Immature Gran % 0.2 Neutrophils % 81.4 Lymphocytes % 11.5 Monocytes % 5.6 Eosinophils % 1.2 Basophils % 0.1 Absolute Neutrophils (1.2-6.7) k/cumm 10.53 H Absolute Lymphocytes (1.2-3.4) k/cumm 1.49 Absolute Monocytes (0.11-0.7) k/cumm 0.72 H Absolute Eosinophils (0.0-0.7) k/cumm 0.16 Absolute Basophils (0.0-0.2) k/cumm 0.01 D-Dimer (<500) ng/mlFEU Sodium (136-145) mmol/L Potassium (3.5-5.1) mmol/L Chloride (98-107) mmol/L Carbon Dioxide (21.0-32.0) mmol/L Anion Gap (3-11) mmol/L BUN (7-18) mg/dL Creatinine (0.55-1.02) mg/dL Estimated GFR/1.73 m2 (mL/min/1.73m2) Glucose (70-100) mg/dL Lactate (0.6-1.4) mmol/L 1.0 Calcium (8.5-10.1) mg/dL Total Bilirubin (0.2-1.0) mg/dL AST (15-37) U/L ALT (12-78) U/L Alkaline Phosphatase (46-116) U/L Troponin I (0.00-0.06) ng/mL Total Protein (6.4-8.2) g/dL Albumin (3.4-5.0) g/dL TSH (0.358-3.74) uIU/mL Urine Color (Yellow) Yellow Urine Clarity Clear Urine pH (5-8) 8.5 H Ur Specific [place] (1.005-1.025) 1.015 Urine Protein (Negative) mg/dL Negative Urine Ketones (Negative) mg/dL Negative Urine Blood (Negative) Negative Urine Nitrite (Negative) Negative Urine Bilirubin (Negative) Negative Urine Urobilinogen (Up TO 0.2) EU/dL 0.2 Ur Leukocyte Esterase (Negative) Negative Urine Glucose (Negative) mg/dL Negative ECG Data Attestation: I personally reviewed and interpreted this ECG (s) as follows: Interpretation: EKG shows sinus tachycardia at 102 with normal axis, no acute ischemic changes, nondiagnostic EKG HPI General Mode of arrival: ambulatory. Date/Time Provider Initiated Documentation: 03/26/18 12:15. Limitations to Documentation: no limitations. Information obtained by: patient, RN notes reviewed and old records reviewed. HPI Narrative: Ghada Ervin is a 27-year-old woman with history of IVDU in the past, AVNRT status post ablation, brain aneurysm status post coiling presenting to the emergency department with 1 month of fever. Patient reports that she has had daily fevers for the past month. She has also had a cough for a month and a half. She was seen here 02/15/18 and treated for UTI. Patient reports that she finished that course of antibiotics and has not had further urinary symptoms. She developed worsening cough and shortness of breath approximately 3 weeks ago, had a chest x-ray 03/09/18, negative for pneumonia, was treated with steroids which she has also finished. She reports that shortness of breath and cough seem unchanged after antibiotics. Patient reports that since symptoms began 1 month ago she has had increased fatigue and intermittent pleuritic left-sided chest pain. Chest pain is nonexertional. She denies having any other pain. Yesterday she developed vomiting and diarrhea without abdominal pain. She denies recent travel. Was eating and drinking normally up until yesterday when vomiting began. Last IV drug use was over 1 year ago. Related Data Home Medications Medication Instructions Recorded Confirmed methadone [Dolophine] 120 mg PO DAILY 12/25/15 03/26/18 acetaminophen [Tylenol] 650 mg PO Q4H PRN PRN tab 04/27/17 03/26/18 polyethylene glycol 3350 17 gm PO DAILY PRN PRN packet 04/27/17 03/26/18 acetaminophen [Mapap Extra 1,000 mg PO Q6H 5 Days #60 tab 11/19/17 02/14/18 Strength] naproxen sodium [Aleve] 220 mg PO BID 11/19/17 03/26/18 albuterol sulfate 1 puff INHALATION Q6H PRN 02/03/18 03/26/18 fluticasone [Flovent HFA] 1 puff INHALATION BID 02/03/18 03/26/18 gabapentin 600 mg PO BID 02/03/18 03/26/18 ibuprofen [Motrin IB] 600 mg PO QID PRN #20 tab 02/03/18 03/26/18 paroxetine HCl [Paxil] 10 mg PO DAILY 02/03/18 03/26/18 doxycycline hyclate 100 mg PO BID #19 tab 03/26/18 Previous Rx's Medication Instructions Recorded acetaminophen [Tylenol] 650 mg PO Q4H PRN PRN tab 04/27/17 polyethylene glycol 3350 17 gm PO DAILY PRN PRN packet 04/27/17 acetaminophen [Mapap Extra 1,000 mg PO Q6H 5 Days #60 tab 11/19/17 Strength] ibuprofen [Motrin IB] 600 mg PO QID PRN #20 tab 02/03/18 doxycycline hyclate 100 mg PO BID #19 tab 03/26/18 Allergies Allergy/AdvReac Type Severity Reaction Status Date / Time meperidine HCl [From Demerol] Allergy Severe Anaphylaxsi Unverified 03/26/18 12:09 s venom-honey bee Allergy Severe anaphylaxis Unverified 03/26/18 12:09 [bee venom (honey bee)] lithium AdvReac Mild NAUSEA Unverified 03/26/18 12:09 sertraline HCl [From Zoloft] AdvReac Mild NIGHTMARES Unverified 03/26/18 12:09 General Stated Complaint: GenMedical KALINA: 3 Review of Systems Review of Systems Constitutional: reports fatigue, fevers Eyes: denies eye pain ENT: denies facial pain, dental pain, sore throat Cardiovascular: denies edema, reports intermittent sharp chest pain Respiratory: Reports SOB, cough GI: denies abdominal pain, reports vomiting, diarrhea : denies flank pain, dysuria MSK: denies back pain, neck pain, arthralgias, myalgias Skin: denies rash Neuro: denies headaches, lightheadedness, weakness, reports intermittent tingling in all 4 extremities [facility] Social History Smoking/Tobacco Use Status: Current every day Exam Narrative Exam Narrative: Constitutional: well and [id number], pleasant, conversing normally HENT: head atraumatic, normocephalic normal inspection, mucous membranes moist Eyes: conjunctiva normal, sclera normal, pupils 3mm b/l Neck: no stridor, normal ROM, trachea midline Chest: normal inspection Resp: normal work of breathing, LCTAB Cardio: Tachycardic, normal rhythm, no murmur appreciated GI: abdomen soft, non-tender, non-distended Back: normal inspection, no rash Skin: warm, dry, normal color, no rash Neuro: alert, not altered, grossly non-focal, normal tone Ext: no edema, no posterior calf tenderness Psych: normal mood, normal affect, normal behavior Course Vital Signs Temperature 36.8 C 03/26/18 12:05 Pulse 122 H 03/26/18 12:05 Respiratory Rate 16 03/26/18 12:05 Blood Pressure 154/93 H 03/26/18 12:05 Pulse Oximetry 97 03/26/18 12:05 Temperature 36.8 C 03/26/18 12:05 Temperature Source Temporal Artery Scan 03/26/18 12:05 Pulse 122 H 03/26/18 12:05 Respiratory Rate 16 03/26/18 12:05 Respiratory Effort Non-Labored 03/26/18 12:08 Blood Pressure 154/93 H 03/26/18 12:05 Blood Pressure Position Sitting 03/26/18 12:05 Pulse Oximetry 97 03/26/18 12:05 Oxygen Delivery Method Room Air 03/26/18 12:05 Oxygen Flow Rate 0 03/26/18 12:05 Pain Level 0 03/26/18 12:05
[2018-03-26 13:18] LABS: Abs Immature Grans 0.03 k/cumm (0.0-0.09); Absolute Basophil Count 0.01 k/cumm (0.0-0.2); Absolute Lymphocyte Count 1.49 k/cumm (1.2-3.4); Absolute Monocyte Count 0.72 k/cumm (0.11-0.7); Absolute Neutrophil Count 10.53 k/cumm (1.2-6.7); Basophils % 0.1; Eosinophils % 1.2; HCT 36.6 % (36.0-46.0); Immature Grans % 0.2; Lymphocytes % 11.5; Mean Corp. HGB Concentration 32.8 g/dL (32.0-36.0); Mean Corpuscular Hemoglobin 31.7 pg (27.0-33.0); Mean Corpuscular Volume 96.8 fL (80-95); Mean Platelet Volume 11.2 fL (8.0-11.0); Monocytes % 5.6; Neutrophils % 81.4; Platelet Count 236 x1000/uL (130-400); RBC 3.78 m/cumm (4.00-5.20); RBC Distribution Width 13.3 % (11.7-14.6); White Blood Cell Count 12.93 k/cumm (4.4-10.8)
[2018-03-26 13:22] LABS: Bilirubin Negative (Negative); Blood Negative (Negative); Clarity Clear; Glucose Negative (Negative); Ketones Negative (Negative); Leukocyte Esterase Negative (Negative); Nitrite Negative (Negative); Specific Gravity 1.015 (1.005-1.025); Urobilinogen 0.2 EU/dL (Up TO 0.2); pH 8.5 (5-8)
[2018-03-26 13:22] LABS: Absolute Eosinophil Count 0.16 k/cumm (0.0-0.7)
[2018-03-26] MEDS: Normal Saline 1,000 ML 1000 ML IV (13:29)
[2018-03-26 13:34] LABS: ALT 75 U/L (12-78); AST 60 U/L (15-37); Albumin 3.2 g/dL (3.4-5.0); Alkaline Phosphatase 119 U/L (46-116); Anion Gap 8.8 mmol/L (3-11); BUN 19 mg/dL (7-18); Bilirubin, Total 0.3 mg/dL (0.2-1.0); CO2 27.2 mmol/L (21.0-32.0); CREATININE 0.85 mg/dL (0.55-1.02); Calcium 9.1 mg/dL (8.5-10.1); Chloride 103 mmol/L (98-107); Glucose 93 mg/dL (70-100); Potassium 4.3 mmol/L (3.5-5.1); Sodium 139 mmol/L (136-145); Total Protein 7.2 g/dL (6.4-8.2)
--- NOTE | 2018-03-26 13:37 | DI.RAD_ITS ---
SYMPTOMS/DIAGNOSIS: FEVER, COUGH PA AND LATERAL CHEST: Comparison 05/29/17 and 03/09/18. The heart size and pulmonary vasculature are stable. The spinal rods appear stable in position. There is a question of increased lung markings in the right base compared to prior examinations. The left lung is clear. No effusions or pneumothoraces are identified. IMPRESSION: Question of a right basilar infiltrate. This may represent a developing pneumonia. Clinical correlation is recommended.
[2018-03-26 13:41] LABS: TSH (W/Ref FT4) 0.38 uIU/mL (0.358-3.74)
[2018-03-26 13:43] LABS: Troponin I < 0.02 ng/mL (0.00-0.06)
[2018-03-26 13:59] LABS: D-Dimer 446 ng/mlFEU (<500)
--- NOTE | 2018-03-26 14:48 | DI.CT_ITS ---
SYMPTOMS/DIAGNOSIS: CHEST PAIN, FEVER CT SCAN OF THE CHEST: CT angiography was performed with multi slice acquisition and multi planar and 3D reconstruction. CT scan of the chest was performed according to the pulmonary embolus protocol. Comparison chest x-ray is from earlier in the day. There is no evidence of a pulmonary embolus. The thoracic aorta is of normal caliber. No aneurysm or dissection is seen. The heart size is within normal limits. No significant pericardial effusion is seen. No findings to suggest right ventricular dysfunction are present. There is a small hiatal hernia. No pleural effusion, thoracic adenopathy or pneumothorax is identified. There is a reticular nodular infiltrate in the right middle and right lower lobes. The lungs are otherwise clear. The bones are intact. Spinal rods are seen in the thoracic spine. IMPRESSION: 1. No evidence of a pulmonary embolus, thoracic aortic aneurysm or dissection. 2. Right middle and right lower lobe pneumonia.
[2018-03-26] MEDS: Ondansetron 4 MG/2 ML VIAL IVP (14:58)
[2018-03-26] MEDS: Omnipaque 350 MG/ML 100 ML BTL IV (15:31)
[2018-03-26] MEDS: Doxycycline Hyclate 100 MG CAP PO (16:21)
[2018-03-26] MEDS: Ondansetron O.D.T. 4 MG TABEF PO (16:22)
== END 2018-03-26 16:34 | disposition home or self-care (01) ==
PROVIDERS: Emergency Provider Student in an Organized Health Care Education/Training Program; PCP Nurse Practitioner Family
DX: J18.9 Pneumonia, unspecified organism (principal); R00.0 Tachycardia, unspecified; R07.81 Pleurodynia; R11.2 Nausea with vomiting, unspecified
CPT/HCPCS: 36415; 71275; 80053; 81025; 87040; 93005; 96361; 96374; 99285; 71046; 81003; 83605; 84443; 84484; 85025; 85379; 93010; 99284; J2405; J3490

== ENCOUNTER 2018-07-01 15:18 | Emergency (ER) | payer MEDICAID, SELFPAY ==
[2018-07-01 15:20] VITALS: BP 143/88; PULSE 104; RESP 16; TEMP 36.7; O2SAT 98
[2018-07-01 15:38] LABS: Bilirubin Negative (Negative); Blood Negative (Negative); Clarity Clear; Glucose Negative (Negative); Ketones Negative (Negative); Leukocyte Esterase Negative (Negative); Nitrite Negative (Negative); Urobilinogen 0.2 EU/dL (Up TO 0.2)
--- NOTE | 2018-07-01 16:12 | W.ED.GENAD ---
Discharge Plan Disposition Patient Disposition: HOME Discharge Details Chief Complaint: Abd Prob Clinical Impression: Pneumonia, Abdominal pain, epigastric Primary Care Provider: Greg Gresham ED Provider: Иван Islas Home Meds and New Rx's Prescriptions: New doxycycline hyclate 100 mg tablet 100 mg PO BID Qty: 13 RF: 0 docusate sodium [Docusil] 100 mg capsule 100 mg PO DAILY Qty: 60 RF: 0 omeprazole 40 mg capsule,delayed release(DR/EC) 40 mg PO DAILY Qty: 30 RF: 0 Continued methadone [Dolophine] 10 MG tablet 120 mg PO DAILY RF: 0 acetaminophen [Mapap Extra Strength] 500 MG tablet 1,000 mg PO Q6H 5 Days Qty: 60 RF: 0 paroxetine HCl [Paxil] 10 mg Tablet 10 mg PO DAILY RF: 0 albuterol sulfate 90 mcg/actuation Hfa Aerosol Inhaler 1 puff INHALATION Q6H PRNRF: 0 acetaminophen [Tylenol] 325 MG tablet 650 mg PO Q4H PRN PRNRF: 0 Discharge Instructions Instructions: Pneumonia (ED), Epigastric Pain (ED) Additional Instructions: Please drink plenty of fluids and allow for plenty of rest. Take antibiotic as prescribed. Please follow-up with your primary care physician. Call tomorrow. Regarding your epigastric pain, please follow-up with general surgery for scheduling an outpatient endoscopy. Return to the ER for any worsening or new concerning symptoms. Referrals: Greg Gresham [Primary Care Provider] - Edgar Cline MD [ [facility] STAFF PHYSICIAN] - Discharge Data Discharge Date/Time-TO BE ENTERED AT DEPARTURE: 07/01/18 19:10 Medical Decision Making 27yo f here with epigastric abdominal pain and cough. Patient is saturating well and no respiratory distress. Abdominal exam notable for tenderness in epigastrum with no peritoneal findings. Labs reviewed and nondiagnostic. Nl LFTs and lipase. cxr interpreted by radiology: concern for potential PNA. Plan to treat with doxycycline. Plan for close outpatient follow-up. I encouraged patient to contact PCP jeff. Patient verbalized understanding importance of timely followup. I have placed patient on care management referral list to expedite followup. Disposition decision was made weighing the risks and benefits of hospitalization versus outpatient treatment, the risk for further decompensation, and the patient's wishes. The patient was stable and requested discharge. Prior to discharge, my usual and customary return precautions were reviewed with the patient - this included follow-up instructions and reason to return to the emergency department if condition worsens, does not improve as expected, or other new concerns arise. Imaging Data Radiologic Study: Imaging: X-Ray Radiologist's impression: IMPRESSION: Question of possible developing interstitial disease in the right middle lobe. Remainder of the lungs are clear. HPI General Mode of arrival: ambulatory. Date/Time Provider Initiated Documentation: 07/01/18 15:35. Limitations to Documentation: no limitations. Information obtained by: patient. HPI Narrative: 27-year-old female with history of AVNRT, fibromyalgia, presents with abdominal pain and cough. Patient notes chronic abdominal pain. Pain is been present for years. Pain is localized to her upper abdomen. Patient has been informed by primary care physician that she has gastric reflux disease. Patient notes that she also has a cough. Cough is productive of green sputum. Cough is been going on for at least a few days and possibly a week. Has felt feverish at times. No SOB. Related Data Home Medications Medication Instructions Recorded Confirmed methadone [Dolophine] 120 mg PO DAILY 12/25/15 07/01/18 acetaminophen [Tylenol] 650 mg PO Q4H PRN PRN tab 04/27/17 03/26/18 acetaminophen [Mapap Extra 1,000 mg PO Q6H 5 Days #60 tab 11/19/17 02/14/18 Strength] albuterol sulfate 1 puff INHALATION Q6H PRN 02/03/18 03/26/18 paroxetine HCl [Paxil] 10 mg PO DAILY 02/03/18 07/01/18 docusate sodium [Docusil] 100 mg PO DAILY #60 cap 07/01/18 doxycycline hyclate 100 mg PO BID #13 tab 07/01/18 omeprazole 40 mg PO DAILY #30 cap 07/01/18 Previous Rx's Medication Instructions Recorded acetaminophen [Tylenol] 650 mg PO Q4H PRN PRN tab 04/27/17 acetaminophen [Mapap Extra 1,000 mg PO Q6H 5 Days #60 tab 11/19/17 Strength] docusate sodium [Docusil] 100 mg PO DAILY #60 cap 07/01/18 doxycycline hyclate 100 mg PO BID #13 tab 07/01/18 omeprazole 40 mg PO DAILY #30 cap 07/01/18 Allergies Allergy/AdvReac Type Severity Reaction Status Date / Time meperidine HCl [From Demerol] Allergy Severe Anaphylaxsi Unverified 03/26/18 12:09 s venom-honey bee Allergy Severe anaphylaxis Unverified 03/26/18 12:09 [bee venom (honey bee)] lithium AdvReac Mild NAUSEA Unverified 03/26/18 12:09 sertraline HCl [From Zoloft] AdvReac Mild NIGHTMARES Unverified 03/26/18 12:09 General Stated Complaint: Abd Prob KALINA: 3 Review of Systems Review of Systems All systems reviewed & are unremarkable except as noted in HPI and below Cardiovascular Denies dyspnea Respiratory Reports cough and Denies dyspnea Gastrointestinal Reports as per HPI PFSH Social History Smoking/Tobacco Use Status: Current every day Drug use: Socially Do you feel safe in your relationship?: Yes Exam Const General: cooperative and no acute distress HENMT Head: normocephalic and atraumatic Mouth: moist mucous membranes Eyes Conjunctivae: normal conjunctivae Sclera: normal sclerae Neck Neck: trachea midline and supple Resp Effort & Inspection: normal respiratory effort, able to speak in complete sentences and no respiratory distress Auscultation: rales on the right at the base, no rhonchi and no wheezes Cardio Jugular venous pressure: no JVD Rate: regular rate and not tachycardic Rhythm: regular rhythm GI Inspection: non-distended Palpation: soft, not firm, no guarding, no masses, not rigid and tender in the epigastrum (mild) Auscultation: normal bowel sounds Skin General skin exam: no rashes or lesions noted Neuro General: alert, awake, oriented x3 and tone normal Extrem General: no edema Psych Appearance: grossly normal Mental Status: mental status grossly normal Speech and Movement: speech and movement normal Course Vital Signs Temperature 36.7 C 07/01/18 15:20 Pulse 104 H 07/01/18 15:20 Respiratory Rate 16 07/01/18 15:20 Blood Pressure 143/88 H 07/01/18 15:20 Pulse Oximetry 98 07/01/18 15:20 Temperature 36.7 C 07/01/18 15:20 Temperature Source Temporal Artery Scan 07/01/18 15:20 Pulse 104 H 03/10/19 15:20 Respiratory Rate 16 07/01/18 15:20 Respiratory Effort Non-Labored 07/01/18 15:24 Blood Pressure 143/88 H 07/01/18 15:20 Blood Pressure Position Sitting 07/01/18 15:20 Pulse Oximetry 98 07/01/18 15:20 Oxygen Delivery Method Room Air 07/01/18 15:20 Oxygen Flow Rate 0 07/01/18 15:20 Pain Level 6 07/01/18 15:20 Lab/Test Results Lab/Test Results: Laboratory Tests Range/Units 07/01/18 15:30 Urine Color (Yellow) Yellow Urine Clarity Clear Urine pH (5-8) 7.0 Ur Specific [place] (1.005-1.025) 1.020 Urine Protein (Negative) mg/dL Negative Urine Ketones (Negative) mg/dL Negative Urine Blood (Negative) Negative Urine Nitrite (Negative) Negative Urine Bilirubin (Negative) Negative Urine Urobilinogen (Up TO 0.2) EU/dL 0.2 Ur Leukocyte Esterase (Negative) Negative Urine Glucose (Negative) mg/dL Negative POC- Test(urine) Negative
[2018-07-01 16:41] LABS: Lipase 65 U/L (73-393)
[2018-07-01 16:46] LABS: ALT 52 U/L (12-78); AST 37 U/L (15-37); Alkaline Phosphatase 108 U/L (46-116); Anion Gap 6.1 mmol/L (3-11); BUN 19 mg/dL (7-18); Bilirubin, Total 0.1 mg/dL (0.2-1.0); CO2 31.9 mmol/L (21.0-32.0); CREATININE 0.77 mg/dL (0.55-1.02); Calcium 8.8 mg/dL (8.5-10.1); Chloride 103 mmol/L (98-107); Glucose 105 mg/dL (70-100); Potassium 3.8 mmol/L (3.5-5.1); Sodium 141 mmol/L (136-145); Total Protein 7.1 g/dL (6.4-8.2)
[2018-07-01 16:51] LABS: Abs Immature Grans 0.01 k/cumm (0.0-0.09); Absolute Basophil Count 0.01 k/cumm (0.0-0.2); Absolute Eosinophil Count 0.22 k/cumm (0.0-0.7); Absolute Monocyte Count 0.58 k/cumm (0.11-0.7); Absolute Neutrophil Count 4.88 k/cumm (1.2-6.7); Basophils % 0.1; Eosinophils % 2.7; HCT 35.8 % (36.0-46.0); HGB 11.8 g/dL (12.0-15.5); Immature Grans % 0.1; Lymphocytes % 29.6; Mean Corpuscular Hemoglobin 30.8 pg (27.0-33.0); Mean Corpuscular Volume 93.5 fL (80-95); Mean Platelet Volume 10.7 fL (8.0-11.0); Monocytes % 7.2; Neutrophils % 60.3; Platelet Count 233 x1000/uL (130-400); RBC 3.83 m/cumm (4.00-5.20); RBC Distribution Width 12.4 % (11.7-14.6)
[2018-07-01] MEDS: Lactated Ringers 1,000 ML 125 ML IV (16:53)
[2018-07-01] MEDS: FAMOTIDINE 20 MG/50 ML BAG 100 MG IVPB (16:53)
--- NOTE | 2018-07-01 17:10 | DI.RAD_ITS ---
SYMPTOM/DIAGNOSIS: COUGH, CHEST/UPPER ABD PAIN PA AND LATERAL CHEST: Comparison is made with 03/09/18. Heart size and pulmonary vasculature are within normal limits. There are increased lung markings in the right base, not present on the examination from 03/09/18 and a developing infiltrate cannot be excluded. The lungs are otherwise clear. No effusions or pneumothoraces are identified. Spinal fixation instrumentation is again noted. IMPRESSION: Question of a right basilar interstitial infiltrate.
--- NOTE | 2018-07-01 17:21 | DI.VRAD_ITS ---
EXAM: XR Chest, 2 Views EXAM DATE/TIME: 07/01/2018 4:08 PM CLINICAL HISTORY: 27 years old, female; Signs and symptoms; Other: Cough, epigastric abdominal pain TECHNIQUE: XR of the chest, 2 views. COMPARISON: CR XR CHEST 2V PA LATERAL 03/26/2018 1:27 PM FINDINGS: Lungs: There is mild haziness in the right middle lobe with suggestion of mild bronchial wall thickening. Remainder of the lungs are clear. Pleural space: Unremarkable. No pleural effusion. No pneumothorax. Heart/Mediastinum: Stable cardiomediastinal silhouette. Bones/joints: Stable thoracic spine fixation/scoliosis treatment. No acute skeletal abnormality. IMPRESSION: Question of possible developing interstitial disease in the right middle lobe. Remainder of the lungs are clear. Dictated and Authenticated by: Festus Velasquez MD. Ordering:NIMESH Oates MD
[2018-07-01 17:47] VITALS: BP 139/86; PULSE 75; RESP 16; TEMP 36.7; O2SAT 99
[2018-07-01] MEDS: Prochlorperazine 10 MG/2 ML VIAL IVP (18:15)
[2018-07-01] MEDS: diphenhydrAMINE 50 MG/ML VIAL 25 MG IVP (18:15)
--- NOTE | 2018-07-01 18:18 | NUR.NOTE ---
patient medicated per MD order Nursing Note:
[2018-07-01 18:36] VITALS: BP 125/84; PULSE 78; RESP 18; TEMP 36.7; O2SAT 100
--- NOTE | 2018-07-01 18:36 | NUR.NOTE ---
patient reports feeling better, desires to go home and sleep, will inform MD Nursing Note:
[2018-07-01] MEDS: Doxycycline Hyclate 100 MG CAP PO (19:00)
--- NOTE | 2018-07-02 08:04 | CMPROGNOTE_ITS ---
Care Management Progress Note 07/02-Dr. Rafael Islas requested assistance with a PCP (Marga) f/u this week for pneumonia. Referral faxed to [facility] this am.
== END 2018-07-01 19:10 | disposition home or self-care (01) ==
PROVIDERS: Emergency Provider Student in an Organized Health Care Education/Training Program; PCP Specialist/Technologist Athletic Trainer
DX: J18.9 Pneumonia, unspecified organism (principal); R10.13 Epigastric pain
CPT/HCPCS: 36415; 80053; 81025; 83690; 96361; 96365; 96375; 99284; 71046; 81003; 85025; J0780; J1200

== ENCOUNTER 2018-08-30 12:14 | Emergency (ER) | payer MEDICAID, SELFPAY ==
[2018-08-30 12:22] VITALS: BP 112/62; PULSE 107; RESP 16; TEMP 36.7; O2SAT 98
[2018-08-30 12:55] LABS: Bilirubin Small (Negative); Blood Moderate (Negative); Clarity Clear; Glucose Negative (Negative); Ketones Negative (Negative); Leukocyte Esterase Negative (Negative); Nitrite Negative (Negative); Specific Gravity >= 1.030 (1.005-1.025)
[2018-08-30 13:02] LABS: Bacteria Few HPF (Negative); C & S Indicated? No/Sq. Contamination; Casts Negative LPF (Negative); Crystals Negative HPF (Negative); Epithelial Cells Many HPF (Negative); Mucus Moderate (Negative); RBC 0-2 (0-2); WBC 0-2 HPF (0-5)
[2018-08-30 13:16] LABS: Abs Immature Grans 0.02 k/cumm (0.0-0.09); Absolute Basophil Count 0.01 k/cumm (0.0-0.2); Absolute Eosinophil Count 0.22 k/cumm (0.0-0.7); Absolute Lymphocyte Count 1.82 k/cumm (1.2-3.4); Absolute Monocyte Count 0.64 k/cumm (0.11-0.7); Basophils % 0.2; Eosinophils % 3.8; HCT 39.7 % (36.0-46.0); Immature Grans % 0.3; Lymphocytes % 31.3; Mean Corp. HGB Concentration 32.7 g/dL (32.0-36.0); Mean Corpuscular Hemoglobin 30.7 pg (27.0-33.0); Mean Corpuscular Volume 93.6 fL (80-95); Mean Platelet Volume 10.5 fL (8.0-11.0); Neutrophils % 53.4; Platelet Count 296 x1000/uL (130-400); RBC 4.24 m/cumm (4.00-5.20); RBC Distribution Width 13.4 % (11.7-14.6); White Blood Cell Count 5.81 k/cumm (4.4-10.8)
[2018-08-30 13:35] LABS: ALT 66 U/L (12-78); AST 50 U/L (15-37); Albumin 3.2 g/dL (3.4-5.0); Alkaline Phosphatase 157 U/L (46-116); Anion Gap 8.3 mmol/L (3-11); BUN 16 mg/dL (7-18); Bilirubin, Total 0.3 mg/dL (0.2-1.0); CO2 27.7 mmol/L (21.0-32.0); CREATININE 0.81 mg/dL (0.55-1.02); Chloride 102 mmol/L (98-107); Glucose 102 mg/dL (70-100); Lipase 80 U/L (73-393); Potassium 3.7 mmol/L (3.5-5.1); Sodium 138 mmol/L (136-145); Total Protein 7.6 g/dL (6.4-8.2)
[2018-08-30 13:41] LABS: Calcium 8.6 mg/dL (8.5-10.1)
--- NOTE | 2018-08-30 14:04 | DI.CT_ITS ---
SYMPTOMS/DIAGNOSIS: RIGHT LOWER QUADRANT PAIN ABDOMINAL AND PELVIC CT: CT examination of the abdomen and pelvis was performed with an intravenous infusion of 100 cc of Omnipaque 350. Note is made of a thoracolumbar scoliosis with Tejeda rods in place in the thoracic spine. Images obtained through the lung bases are unremarkable. The liver, spleen and pancreas appear normal. Gallbladder and bile ducts are CT normal. Adrenals and kidneys are unremarkable in appearance. Abdominal aorta is of normal diameter and no major vascular abnormality is seen. Small fat-containing umbilical hernia noted. No abdominal or pelvic adenopathy seen. Appendix is normal. No evidence of diverticulitis or bowel obstruction. [employer] structures appear intact. CONCLUSION: No evidence of acute intraabdominal process.
[2018-08-30] MEDS: Ketorolac 30 MG/ML VIAL IVP (14:17)
[2018-08-30] MEDS: Ondansetron 4 MG/2 ML VIAL IVP (14:17)
[2018-08-30] MEDS: Omnipaque 350 MG/ML 100 ML BTL IJ (15:08)
--- NOTE | 2018-08-30 15:24 | W.ED.GENAD ---
Discharge Plan Disposition Patient Disposition: HOME Condition: Stable Discharge Details Chief Complaint: Abd Prob Clinical Impression: Abdominal pain Primary Care Provider: Greg Gresham ED Provider: Macho Hinojosa Home Meds and New Rx's Prescriptions: New promethazine 25 mg tablet 25 mg PO Q6H PRN (Reason: nausea and vomiting) Qty: 10 RF: 0 Continued methadone [Dolophine] 10 MG tablet 120 mg PO DAILY RF: 0 acetaminophen [Mapap Extra Strength] 500 MG tablet 1,000 mg PO Q6H 5 Days Qty: 60 RF: 0 paroxetine HCl [Paxil] 10 mg Tablet 10 mg PO HS RF: 0 albuterol sulfate 90 mcg/actuation Hfa Aerosol Inhaler 1 puff INHALATION Q6H PRNRF: 0 docusate sodium [Docusil] 100 mg capsule 100 mg PO DAILY Qty: 60 RF: 0 omeprazole 40 mg capsule,delayed release(DR/EC) 40 mg PO DAILY Qty: 30 RF: 0 [place] 1 tab PO QID RF: 0 Discharge Instructions Instructions: Abdominal Pain (ED) Additional Instructions: Continue to stay well-hydrated and advance her diet as tolerated. Return to the emergency department for any new or significant worsening of symptoms or further concerns. Otherwise you should follow-up with your primary care provider for reassessment if not improving over the next week. Referrals: Greg Gresham [Primary Care Provider] - (As needed for reassessment or if not improving) Discharge Data Discharge Date/Time-TO BE ENTERED AT DEPARTURE: 08/30/18 15:35 Medical Decision Making Patient presenting to the emergency department for chief complaint of abdominal pain. Patient states that this is been going on for the past 2 days and seemed periumbilical and migrated to the right side of the abdomen. She feels constipated due to her methadone and states subjective chills along with some nausea and decreased appetite. Physical exam shows tenderness to the right lower quadrant at point of McBurney's otherwise physical exam is nondiagnostic. Plan to check labs and CT imaging for concern of appendicitis or intra-abdominal pathology. Pending results patient given IV fluid, ketorolac and Zofran. Review of labs show normal-appearing CBC with no leukocytosis, CMP showing slight elevation of AST and alk phos otherwise nondiagnostic, and urinalysis that does show some blood cells present, no signs of infection, high specific gravity. CT imaging shows no acute intra-abdominal pathology to suggest patient's pain and discomfort. Patient was reassessed and states improvement of discomfort. Given this I feel the patient is able to be safely discharged with close return precautions and for patient to follow-up with primary care provider for reassessment. After discussion of diagnosis and plan of care patient has no further needs, questions, or concerns and states clear understanding to return to the emergency department for any worsening symptoms. HPI General Mode of arrival: ambulatory. Date/Time Provider Initiated Documentation: 08/30/18 12:27. Limitations to Documentation: no limitations. Information obtained by: patient and RN notes reviewed. History of Present Illness 27 year old F presents to the emergency department with the chief complaint of Abdominal pain, right lower quadrant, described as moderate, with intensity rated at 7. Quality is described as aching, and is localized to the abdomen and right (lower). Patient started experiencing this day(s) (2) and it has been constant. Movement worsens symptoms . Patient notes no other symptoms.. Patient did receive the following treatments prior to arrival, none Related Data Home Medications Medication Instructions Recorded Confirmed methadone [Dolophine] 120 mg PO DAILY 12/25/15 09/03/18 acetaminophen [Mapap Extra 1,000 mg PO Q6H 5 Days #60 tab 11/19/17 09/03/18 Strength] albuterol sulfate 1 puff INHALATION Q6H PRN 02/03/18 09/03/18 paroxetine HCl [Paxil] 10 mg PO HS 02/03/18 09/03/18 docusate sodium [Docusil] 100 mg PO DAILY #60 cap 07/01/18 09/03/18 omeprazole 40 mg PO DAILY #30 cap 07/01/18 09/03/18 [place] 1 tab PO QID 08/30/18 09/03/18 promethazine 25 mg PO Q6H PRN #10 tab 08/30/18 09/03/18 Previous Rx's Medication Instructions Recorded acetaminophen [Mapap Extra 1,000 mg PO Q6H 5 Days #60 tab 11/19/17 Strength] docusate sodium [Docusil] 100 mg PO DAILY #60 cap 07/01/18 omeprazole 40 mg PO DAILY #30 cap 07/01/18 promethazine 25 mg PO Q6H PRN #10 tab 08/30/18 Allergies Allergy/AdvReac Type Severity Reaction Status Date / Time meperidine HCl [From Demerol] Allergy Severe Anaphylaxsi Unverified 09/03/18 21:17 s venom-honey bee Allergy Severe anaphylaxis Unverified 09/03/18 21:17 [bee venom (honey bee)] lithium AdvReac Mild NAUSEA Unverified 09/03/18 21:17 sertraline HCl [From Zoloft] AdvReac Mild NIGHTMARES Unverified 09/03/18 21:17 General Stated Complaint: Abd Prob KALINA: 3 Review of Systems Constitutional Reports chills, Denies fever(s) and Reports poor appetite Cardiovascular Denies chest pain and Denies dyspnea Respiratory Denies cough and Denies dyspnea Gastrointestinal Reports as per HPI, Reports abdominal pain, Denies melena, Denies change in bowel habits, Denies constipation, Denies diarrhea, Reports nausea and Denies vomiting Genitourinary Denies hematuria, Denies urinary incontinence, Denies urinary hesitancy and Denies urinary urgency Integumentary/Breasts Denies rash PFSH Social History Smoking/Tobacco Use Status: Current every day Tobacco Type: cigarettes Quit status: considering quitting Drug use: Socially Substance use type: former substance user, marijuana, crack/cocaine, heroin, opiates and IV drugs Details: former heroin and cocaine user, 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 Household members: other Details: lives w/ cousin's ex- and her children Number of Children: 3 Do you feel safe at home: Yes Do you feel safe in your relationship?: Yes History History 2 Para 3 Hx # Term Pregnancies 2 Multiple births Hx # Pregnancies Ectopic pregnancies AB induced Hx Number of Living Children 3 AB spontaneous Exam Const General: cooperative Orientation: alert, awake and oriented x3 Resp Effort & Inspection: normal respiratory effort and able to speak in complete sentences Auscultation: clear to auscultation bilaterally Cardio Rate: regular rate Rhythm: regular rhythm Heart Sounds: S1 normal and S2 normal GI Palpation: soft, no hepatosplenomegaly, not firm, no guarding, no masses, no pulsatile masses, not rigid, no splenomegaly and tender at McBurney's point and periumbilically; Abdi's sign negative and Rovsing's sign negative Auscultation: normal bowel sounds Back/Spine/Pelvis Back: no CVA tenderness Neuro General: alert, awake, oriented x3, gait normal and moves all extremities Course Vital Signs Temperature 36.7 C 08/30/18 12:22 Pulse 107 H 08/30/18 12:22 Respiratory Rate 16 08/30/18 12:22 Blood Pressure 112/62 08/30/18 12:22 Pulse Oximetry 98 08/30/18 12:22 Temperature 36.7 C 08/30/18 12:22 Temperature Source Skin 08/30/18 12:22 Pulse 107 H 08/30/18 12:22 Respiratory Rate 16 08/30/18 12:22 Respiratory Effort 08/30/18 12:34 Blood Pressure 112/62 08/30/18 12:22 Blood Pressure Position Sitting 08/30/18 12:22 Pulse Oximetry 98 08/30/18 12:22 Oxygen Delivery Method Room Air 08/30/18 12:22 Oxygen Flow Rate 0 08/30/18 12:22 Pain Level 7 08/30/18 12:22 Comment 08/30/18 12:22 Lab/Test Results Lab/Test Results: Laboratory Tests Range/Units 08/30/18 08/30/18 08/30/18 12:45 12:50 12:50 WBC (4.4-10.8) k/cumm 5.81 RBC (4.00-5.20) m/cumm 4.24 Hgb (12.0-15.5) g/dL 13.0 Hct (36.0-46.0) % 39.7 MCV (80-95) fL 93.6 MCH (27.0-33.0) pg 30.7 MCHC (32.0-36.0) g/dL 32.7 RDW (11.7-14.6) % 13.4 Plt Count (130-400) x1000/uL 296 MPV (8.0-11.0) fL 10.5 Immature Gran % 0.3 Neutrophils % 53.4 Lymphocytes % 31.3 Monocytes % 11.0 Eosinophils % 3.8 Basophils % 0.2 Absolute Neutrophils (1.2-6.7) k/cumm 3.10 Absolute Lymphocytes (1.2-3.4) k/cumm 1.82 Absolute Monocytes (0.11-0.7) k/cumm 0.64 Absolute Eosinophils (0.0-0.7) k/cumm 0.22 Absolute Basophils (0.0-0.2) k/cumm 0.01 Sodium (136-145) mmol/L 138 Potassium (3.5-5.1) mmol/L 3.7 Chloride (98-107) mmol/L 102 Carbon Dioxide (21.0-32.0) mmol/L 27.7 Anion Gap (3-11) mmol/L 8.3 BUN (7-18) mg/dL 16 Creatinine (0.55-1.02) mg/dL 0.81 Estimated GFR/1.73 m2 (mL/min/1.73m2) >= 60.00 Glucose (70-100) mg/dL 102 H Calcium (8.5-10.1) mg/dL 8.6 Total Bilirubin (0.2-1.0) mg/dL 0.3 AST (15-37) U/L 50 H ALT (12-78) U/L 66 Alkaline Phosphatase (46-116) U/L 157 H Total Protein (6.4-8.2) g/dL 7.6 Albumin (3.4-5.0) g/dL 3.2 L Lipase (73-393) U/L 80 Urine Color (Yellow) Darlene Urine Clarity Clear Urine pH (5-8) 6.0 Ur Specific [place] (1.005-1.025) >= 1.030 H Urine Protein (Negative) mg/dL 30 H Urine Ketones (Negative) mg/dL Negative Urine Blood (Negative) Moderate H Urine Nitrite (Negative) Negative Urine Bilirubin (Negative) Small H Urine Urobilinogen (Up TO 0.2) EU/dL 1.0 H Ur Leukocyte Esterase (Negative) Negative Urine RBC (0-2) 0-2 Urine WBC (0-5) HPF 0-2 Ur Epithelial Cells (Negative) HPF Many Urine Crystals (Negative) HPF Negative Urine Bacteria (Negative) HPF Few Urine Casts (Negative) LPF Negative Urine Mucus (Negative) Moderate Ur Culture Indicated? No/sq. contamination Urine Glucose (Negative) mg/dL Negative POC- Test(urine) Negative
[2018-08-30 15:48] VITALS: BP 118/72; PULSE 84; RESP 16; TEMP 36.7; O2SAT 98
== END 2018-08-30 15:35 | disposition home or self-care (01) ==
PROVIDERS: Emergency Provider Nurse Practitioner Family; PCP Specialist/Technologist Athletic Trainer
DX: R10.33 Periumbilical pain (principal)
CPT/HCPCS: 36415; 80053; 83690; 96374; 96375; 99285; 74177; 81003; 81015; 85025; 99284; J1885; J2405; J3490

== ENCOUNTER 2018-09-03 21:08 | Inpatient (IN) | payer MEDICAID, SELFPAY ==
[2018-09-03] VITALS (13 sets, daily range): BP systolic 144–149; BP diastolic 87–116; PULSE 87–118; RESP 15–28; TEMP 37.5–37.7; O2SAT 97–99
--- NOTE | 2018-09-03 21:12 | W.ED.GENAD ---
Discharge Plan Disposition Patient Disposition: [facility] INPATIENT Condition: Serious Discharge Details Chief Complaint: Headache Clinical Impression: Headache, Pseudotumor cerebri syndrome Admit Date/Time: 09/04/18 02:46 Admit Provider: Mateusz Tucker Attending Provider: Mateusz Tucker Primary Care Provider: Greg Gresham ED Provider: Perla Abbott Hospital Course Hospital Course: Chief Complaint: Headache, Fever HPI: 27 year old woman with a prior history of Cerebral Aneurysm s/p coiling in 2015, admitted from [facility] Emergency Department on 09/04 with complaints of headache and fever. Ms. Ervin has a Past Medical History of Opiate Dependence and IVDA in remission, reportedly sober for over one year. Her other history includes Obesity, Hepatitis C (untreated), depression, Fibromyalgia, and Scoliosis s/p Surgery intervention in 2007. She has undergone an AV Korina Ablation in 2014 for SVTs, and coiling of an intracranial aneurysm in 2015 at [facility]. Patient also has a lengthy history of migraines, which has in the past led to medication overuse. She presented to the ED with worsening headaches and complaints of low grade fevers, found to be mildly febrile but without a source. Her LP was essentially normal - an opening pressure was not obtained due to patient cooperation, but noted elevated closing pressures in obese woman with significant discomfort at the time. Work-up initially also included a negative CT of the head. She was referred for admission for further evaluation and treatment. The patient did not experience any more fevers following admission. Her CXR and Urinalysis were negative, and Blood Cultures remain with no growth X24 hours. Her labwork was unremarkable, with the exception of a CRP that was elevated in the 7's, ESR that was high at 21, and a Procalcitonin value grossly elevated at 35. 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 Of note, the MRI also showed evidence of an old infarct in the right frontal lobe - Of note, old films were reviewed by local neurology, Dr. Zaidi - noted to have a normal CT of the head on 02/13, with evidence of an infarct in the right frontal lobe on 02/16. Following the unexpected discover of acute ischemic changes in the brain, and given patient's age and history, case was discussed with Neurology at [facility] on 09/04, and she was accepted in transfer [facility]. Prior to leaving [facility] Ms. Ervin also underwent further testing with an ECHO to rule out a PFO - results pending at time of admission. She had ultrasound ordered of the lower extremities, not performed as a bed became available at [facility]. At time of discharge she also has C ANCA/P ANCA, and Myeloperoxidase Ab pending. All of her imaging is being pushed electronically to [facility] as well. Discharge Data Discharge Date/Time-TO BE ENTERED AT DEPARTURE: 09/04/18 03:50 Discharge Physician: Perla Abbott Medical Decision Making <RICCO Dunne - Last Filed: 09/06/18 07:56> Patient is a 27 year old female, hx of daily headaches, opioid dependence, presenting today with c/c of headache. states that CUADRA began 30 minutes ago. States it started gradually but did reach maximal severity within a few minutes. states this is much worse than her typical headache. Denies trauma. Patient has history of aneurysm which was clipped. She reports feeling warm since onset of symptoms. Denies recent illness, was feeling well prior to the onset of symptoms. Denies visual changes, has not noted any weakness. Is experiencing nausea, photophobia. She reports that she gets sharp pains that radiate down her back. State that prior ot arrival she found stretching her back as straight as posible was of benefit to her pain. On exam, she is writhing in pain, she appears anxious and distressed. She is moving well, has sharp pain with movements of neck and back, appears meningitic. PERRLA, neuro exam intact. With patietns history, I am concerned for bleed although she did not describe thunderclap CUADRA. She is also endorsing feelign warm and has low grade fever at 37.7. Considered infectious source but the sudden onset of symptoms without any prior sxs is unlikely. Patient has hx of IV drug abuse, has not used in >17 months per her report. Will obtain CT, labs and reevaluate. Gave Compazine, Benadryl, Morphine for pain. Will obtain CT and CTA. CT reviewed by radiologist: FINDINGS: Brain: There is motion artifact on mobile slices overlying the cerebellum and to a lesser extent skull base. This slightly limits evaluation. Ventricles: Normal. No ventriculomegaly. Bones/joints: Unremarkable. No acute fracture. Sinuses: Visualized sinuses are unremarkable. No fluid levels. Mastoid air cells: Visualized mastoid air cells are well aerated. No mastoid effusion. Soft tissues: See Vasculature Finding. 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 There is severe focal metallic artifact which slightly limits evaluation. After accounting for this, no other abnormality is identified. IMPRESSION: 1. There is motion artifact on mobile slices overlying the cerebellum and to a lesser extent skull base. This slightly limits evaluation. 2. 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 There is severe focal metallic artifact which slightly limits evaluation. After accounting for this, no other abnormality is identified. No mass lesions are seen and there is no sinusitis evident in this patient with reported headache. CTA reviewed: FINDINGS: Right internal carotid artery: There is an endovascular coil in the right suprasellar region. Artifact from this limits assessment of the adjacent vasculature. Visualized intracranial segment is patent with no hemodynamically significant stenosis. Right anterior cerebral artery: Unremarkable. No occlusion or significant stenosis. No aneurysm. Right middle cerebral artery: Unremarkable. No occlusion or significant stenosis. No aneurysm. Right posterior cerebral artery: Unremarkable. No occlusion or significant stenosis. No aneurysm. Right vertebral artery: Unremarkable. No occlusion or significant stenosis. No aneurysm. Left internal carotid artery: Unremarkable. Intracranial segment is patent with no significant stenosis. No aneurysm. Left anterior cerebral artery: Unremarkable. No occlusion or significant stenosis. No aneurysm. Left middle cerebral artery: Unremarkable. No occlusion or significant stenosis. No aneurysm. Left posterior cerebral artery: Unremarkable. No occlusion or significant stenosis. No aneurysm. Left vertebral artery: Unremarkable. No occlusion or significant stenosis. No aneurysm. Basilar artery: Unremarkable. No occlusion or significant stenosis. No aneurysm. Other vasculature: Visualized venous structures are unremarkable. HEAD: Brain: There is a stable small region of encephalomalacia in the right parietal cortex. No abnormal intracranial enhancement. IMPRESSION: Right suprasellar endovascular coil. Artifact from this limits assessment of the adjacent vasculature. No other aneurysm, occlusion or dissection seen. Labs significant for minimally elevated ALT and alk phos, this is typical for the patient. Otherwise without signfiicant abnormality, awaiting urine. Patient continues to endorse severe pain despite the above interventions. Plan for LP. She has had one historically. We discussed risks/benefits of the procedure. This was also discussed with Dr. Islas who preformed the LP. Fluid clear. Closing pressure measured at 35. Awaiting CSF results. Patient may have pseudotumor cerebri. She is overweight and of child bearing age. She is much calmer at this time. She is now endorsing some visual changes that she describes as aura that have been present for the past few weeks. No acute change in this with onset of todays headache. At the end of my shift, CSF is pending. Care transitioned to Dr. Abbott <Perla Abbott, DO - Last Filed: 09/04/18 06:26> Please see RICCO Sykes's note for initial presentation, exam and plan. Patient is a 27-year-old female with a history of depression, fibromyalgia, migraines, AVNRT status post ablation in 2014, cerebral aneurysm status post coiling in 2014 who presents for headache for the past 3 days. Patient states that headache started gradually, is sharp and within her entire head. She also admits to intermittent blurry vision which she describes as occasional flashes of light. She also admits to photophobia and nausea and vomiting. States this feels different than her usual migraine in the location of pain as her migraines are usually one-sided and in the intensity and duration. Upon my examination, no focal deficits. Patient is sleepy status post a dose of Dilaudid. She states her headache is improved. Patient had lab work and imaging done on arrival. White blood cell count 4. Bands 8. Normal electrolytes. Urinalysis notes positive opiates. CT head and CTA head and neck noted prior coiling/clip but no other acute findings. Case endorsed to follow-up on CSF to rule out possible subarachnoid hemorrhage due to patient's previous history of cerebral aneurysm. Patient had no history of recorded fevers at home, no meningeal signs here, and normal white count, so appear less likely consistent with meningitis. CSF results noted it to be clear and colorless, WBC 2, RBC 1, monocyte 2, glucose 55, protein 27. Dr. Charisma Islas performed the LP and was unable to obtain an opening pressure but stated the closing pressure was 35. Concern now possibly for pseudotumor cerebri considering patient's body habitus and complaint of visual changes. Visual acuity was not obtained on arrival due to her significant headache and photophobia. Will page [facility] neurology for recommendations. Heart rate 110s. We will continue IV fluids. Patient otherwise sleeping and appears comfortable. 0215 --discussed with [facility] neurology -no beds available there. Agrees with plan for admission for observation. Could be consistent with possible pseudotumor cerebri. Would recommend MRI/MRV in the a.m. to assess for mass, pseudotumor, venous sinus thrombosis, empty sella syndrome. Also recommends a formal eye exam with ophthalmology. Once patient is able to be discharged, she can follow-up with neuro-ophthalmology at [facility]. If patient diagnosed with pseudotumor cerebri/idiopathic intracranial hypertension, would recommend weight loss, Topamax or Diamox if she does not have a history of kidney stones, and follow-up with neurology. 0245 --discussed with hospitalist -accepts patient for admission. Pt unlikely to be able to obtain MRI with h/o coiling. Patient informed of plan and is agreeable with admission. She does states she feels better since arrival. Medical Records Medical records reviewed: Yes I reviewed the patient's medical records. Imaging Data Radiologic Study: Radiologist's impression: CT Head Without Contrast EXAM DATE/TIME: 09/03/2018 9:15 PM FINDINGS: Brain: There is motion artifact on mobile slices overlying the cerebellum and to a lesser extent skull base. This slightly limits evaluation. Ventricles: Normal. No ventriculomegaly. Bones/joints: Unremarkable. No acute fracture. Sinuses: Visualized sinuses are unremarkable. No fluid levels. Mastoid air cells: Visualized mastoid air cells are well aerated. No mastoid effusion. Soft tissues: See Vasculature Finding. 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 There is severe focal metallic artifact which slightly limits evaluation. After accounting for this, no other abnormality is identified. IMPRESSION: 1. There is motion artifact on mobile slices overlying the cerebellum and to a lesser extent skull base. This slightly limits evaluation. 2. 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 There is severe focal metallic artifact which slightly limits evaluation. After accounting for this, no other abnormality is identified. No mass lesions are seen and there is no sinusitis evident in this patient with reported headache. ASSESSMENT: ASPECTS ([place] Stroke Program Early CT Score) is 10. Radiologic Study #2: Radiologist's impression: CT Angiography Head With Contrast EXAM DATE/TIME: 09/03/2018 9:19 PM FINDINGS: Right internal carotid artery: There is an endovascular coil in the right suprasellar region. Artifact from this limits assessment of the adjacent vasculature. Visualized intracranial segment is patent with no hemodynamically significant stenosis. Right anterior cerebral artery: Unremarkable. No occlusion or significant stenosis. No aneurysm. Right middle cerebral artery: Unremarkable. No occlusion or significant stenosis. No aneurysm. Right posterior cerebral artery: Unremarkable. No occlusion or significant stenosis. No aneurysm. Right vertebral artery: Unremarkable. No occlusion or significant stenosis. No aneurysm. Left internal carotid artery: Unremarkable. Intracranial segment is patent with no significant stenosis. No aneurysm. Left anterior cerebral artery: Unremarkable. No occlusion or significant stenosis. No aneurysm. Left middle cerebral artery: Unremarkable. No occlusion or significant stenosis. No aneurysm. Left posterior cerebral artery: Unremarkable. No occlusion or significant stenosis. No aneurysm. Left vertebral artery: Unremarkable. No occlusion or significant stenosis. No aneurysm. Basilar artery: Unremarkable. No occlusion or significant stenosis. No aneurysm. Other vasculature: Visualized venous structures are unremarkable. HEAD: Brain: There is a stable small region of encephalomalacia in the right parietal cortex. No abnormal intracranial enhancement. IMPRESSION: Right suprasellar endovascular coil. Artifact from this limits assessment of the adjacent vasculature. No other aneurysm, occlusion or dissection seen. CT Angiography Neck With Contrast EXAM DATE/TIME: 09/03/2018 9:19 PM FINDINGS: VASCULATURE: Right common carotid artery: Normal. No significant stenosis. No dissection or occlusion. Right internal carotid artery: Normal. Extracranial segment is patent with no significant stenosis. No dissection or occlusion. Right external carotid artery: Normal. No occlusion or significant stenosis. Right vertebral artery: Normal. No significant stenosis. No dissection or occlusion. Left common carotid artery: Normal. No significant stenosis. No dissection or occlusion. Left internal carotid artery: Normal. Extracranial segment is patent with no significant stenosis. No dissection or occlusion. Left external carotid artery: Normal. No occlusion or significant stenosis. Left vertebral artery: Normal. No significant stenosis. No dissection or occlusion. NECK: Bones/joints: Metallic rods are seen in the upper thoracic spine. Soft tissues: Normal. No significant soft tissue swelling. IMPRESSION: Unremarkable CT angiogram of the neck. Lab Data Lab results reviewed: Yes I reviewed the patient's lab results. 09/03/18 23:30 Cerebrospinal Fluid Body Fluid Culture - Pending 09/03/18 23:30 Cerebrospinal Fluid Gram Stain - Final Laboratory Tests Range/Units 09/03/18 09/03/18 09/03/18 21:20 21:20 21:20 WBC (4.4-10.8) k/cumm 4.48 RBC (4.00-5.20) m/cumm 3.97 L Hgb (12.0-15.5) g/dL 12.4 Hct (36.0-46.0) % 37.8 MCV (80-95) fL 95.2 H MCH (27.0-33.0) pg 31.2 MCHC (32.0-36.0) g/dL 32.8 RDW (11.7-14.6) % 13.1 Plt Count (130-400) x1000/uL 237 MPV (8.0-11.0) fL 10.2 Immature Gran % See Differential Neutrophils % 53.0 Band Neutrophils % % 8.0 Lymphocytes % 31.0 Atypical Lymphs % 2 Monocytes % 2.0 Eosinophils % 2.0 Basophils % 0.0 Metamyelocytes % % 2.0 Absolute Neutrophils (1.2-6.7) k/cumm 2.73 Absolute Lymphocytes (1.2-3.4) k/cumm 1.48 Absolute Monocytes (0.11-0.7) k/cumm 0.09 L Absolute Eosinophils (0.0-0.7) k/cumm 0.09 Absolute Basophils (0.0-0.2) k/cumm 0.00 Differential Comment Mandiff RBC Morphology Normal Xanthochromia ESR (0-20) MM/HR 14 PT Cancelled INR Cancelled APTT Cancelled Sodium (136-145) mmol/L 140 Potassium (3.5-5.1) mmol/L 3.6 Chloride (98-107) mmol/L 102 Carbon Dioxide (21.0-32.0) mmol/L 29.9 Anion Gap (3-11) mmol/L 8.1 BUN (7-18) mg/dL 18 Creatinine (0.55-1.02) mg/dL 1.02 Estimated GFR/1.73 m2 (mL/min/1.73m2) >= 60.00 Glucose (70-100) mg/dL 74 Calcium (8.5-10.1) mg/dL 8.5 Total Bilirubin (0.2-1.0) mg/dL 0.2 AST (15-37) U/L 45 H ALT (12-78) U/L 59 Alkaline Phosphatase (46-116) U/L 142 H Total Protein (6.4-8.2) g/dL 7.4 Albumin (3.4-5.0) g/dL 3.1 L CSF Tube Number CSF Color CSF Clarity CSF WBC (0-5) /mm3 CSF RBC (0-5) /mm3 CSF Neutrophils CSF Lymphocytes CSF Monos/Macrophages (3-37) % CSF Other Cells CSF Diff Comment CSF Glucose (40-70) mg/dL CSF Total Protein (15-45) mg/dL Urine Opiates Screen (Negative) Urine Methadone Screen (Negative) Ur Barbiturates Screen (Negative) Ur Tricyclics Screen (Negative) Ur Amphetamines Screen (Negative) U Benzodiazepines Scrn (Negative) Urine Cocaine Screen (Negative) Ur THC Screen (Negative) Ethyl Alcohol (<3) mg/dL < 3.0 Range/Units 09/03/18 09/03/18 09/03/18 22:40 23:30 23:30 WBC (4.4-10.8) k/cumm RBC (4.00-5.20) m/cumm Hgb (12.0-15.5) g/dL Hct (36.0-46.0) % MCV (80-95) fL MCH (27.0-33.0) pg MCHC (32.0-36.0) g/dL RDW (11.7-14.6) % Plt Count (130-400) x1000/uL MPV (8.0-11.0) fL Immature Gran % Neutrophils % Band Neutrophils % % Lymphocytes % Atypical Lymphs % Monocytes % Eosinophils % Basophils % Metamyelocytes % % Absolute Neutrophils (1.2-6.7) k/cumm Absolute Lymphocytes (1.2-3.4) k/cumm Absolute Monocytes (0.11-0.7) k/cumm Absolute Eosinophils (0.0-0.7) k/cumm Absolute Basophils (0.0-0.2) k/cumm Differential Comment RBC Morphology Xanthochromia Absent ESR (0-20) MM/HR PT INR APTT Sodium (136-145) mmol/L Potassium (3.5-5.1) mmol/L Chloride (98-107) mmol/L Carbon Dioxide (21.0-32.0) mmol/L Anion Gap (3-11) mmol/L BUN (7-18) mg/dL Creatinine (0.55-1.02) mg/dL Estimated GFR/1.73 m2 (mL/min/1.73m2) Glucose (70-100) mg/dL Calcium (8.5-10.1) mg/dL Total Bilirubin (0.2-1.0) mg/dL AST (15-37) U/L ALT (12-78) U/L Alkaline Phosphatase (46-116) U/L Total Protein (6.4-8.2) g/dL Albumin (3.4-5.0) g/dL CSF Tube Number 4 CSF Color Colorless CSF Clarity Clear CSF WBC (0-5) /mm3 2 CSF RBC (0-5) /mm3 1 CSF Neutrophils CSF Lymphocytes CSF Monos/Macrophages (3-37) % 2 L CSF Other Cells CSF Diff Comment CSF Glucose (40-70) mg/dL 55 CSF Total Protein (15-45) mg/dL 27 Urine Opiates Screen (Negative) Positive Urine Methadone Screen (Negative) Positive Ur Barbiturates Screen (Negative) Negative Ur Tricyclics Screen (Negative) Negative Ur Amphetamines Screen (Negative) Negative U Benzodiazepines Scrn (Negative) Negative Urine Cocaine Screen (Negative) Negative Ur THC Screen (Negative) Negative Ethyl Alcohol (<3) mg/dL Range/Units 09/03/18 23:40 WBC (4.4-10.8) k/cumm RBC (4.00-5.20) m/cumm Hgb (12.0-15.5) g/dL Hct (36.0-46.0) % MCV (80-95) fL MCH (27.0-33.0) pg MCHC (32.0-36.0) g/dL RDW (11.7-14.6) % Plt Count (130-400) x1000/uL MPV (8.0-11.0) fL Immature Gran % Neutrophils % Band Neutrophils % % Lymphocytes % Atypical Lymphs % Monocytes % Eosinophils % Basophils % Metamyelocytes % % Absolute Neutrophils (1.2-6.7) k/cumm Absolute Lymphocytes (1.2-3.4) k/cumm Absolute Monocytes (0.11-0.7) k/cumm Absolute Eosinophils (0.0-0.7) k/cumm Absolute Basophils (0.0-0.2) k/cumm Differential Comment RBC Morphology Xanthochromia Cancelled ESR (0-20) MM/HR PT INR APTT Sodium (136-145) mmol/L Potassium (3.5-5.1) mmol/L Chloride (98-107) mmol/L Carbon Dioxide (21.0-32.0) mmol/L Anion Gap (3-11) mmol/L BUN (7-18) mg/dL Creatinine (0.55-1.02) mg/dL Estimated GFR/1.73 m2 (mL/min/1.73m2) Glucose (70-100) mg/dL Calcium (8.5-10.1) mg/dL Total Bilirubin (0.2-1.0) mg/dL AST (15-37) U/L ALT (12-78) U/L Alkaline Phosphatase (46-116) U/L Total Protein (6.4-8.2) g/dL Albumin (3.4-5.0) g/dL CSF Tube Number Cancelled CSF Color Cancelled CSF Clarity Cancelled CSF WBC (0-5) /mm3 Cancelled CSF RBC (0-5) /mm3 Cancelled CSF Neutrophils Cancelled CSF Lymphocytes Cancelled CSF Monos/Macrophages (3-37) % Cancelled CSF Other Cells Cancelled CSF Diff Comment Cancelled CSF Glucose (40-70) mg/dL CSF Total Protein (15-45) mg/dL Urine Opiates Screen (Negative) Urine Methadone Screen (Negative) Ur Barbiturates Screen (Negative) Ur Tricyclics Screen (Negative) Ur Amphetamines Screen (Negative) U Benzodiazepines Scrn (Negative) Urine Cocaine Screen (Negative) Ur THC Screen (Negative) Ethyl Alcohol (<3) mg/dL <Charisma Islas MD - Last Filed: 09/04/18 15:19> Pt seen initially by Mony Kelly. Pt presented to the emergency department with progressive headaches in the past few months, but with severe headache that began suddenly today. Patient reports this headache is worse than her other headaches. She reports that she had a subarachnoid hemorrhage in the past, and her headache today feels similar to that. Patient was also found to be febrile upon initial presentation to the emergency department. Neurologic exam is nonfocal. Patient underwent CT of the head, CTA of the brain, and laboratory testing. CT head and CT brain significant for old aneurysm clipping, no acute process, no new aneurysm. Quality of headache and exam are consistent with subarachnoid hemorrhage and meningitis, antibiotics held pending CSF results. LP was performed by me, one attempt, no complications, however patient was moving at the time of initial CSF was obtained and therefore samples were taken without opening pressure. Closing pressure was obtained however and was 35 mmHg. Please see procedure note. Patient reported improvement in pain after LP, however she did receive 1 mg of Dilaudid prior to procedure. Patient was signed out to Dr. Abbott at time of shift change with CSF results pending. HPI <RICCO Dunne - Last Filed: 09/06/18 07:56> General Mode of arrival: wheelchair. Date/Time Provider Initiated Documentation: 09/03/18 21:12. Limitations to Documentation: no limitations. Information obtained by: patient and RN notes reviewed. History of Present Illness 27 year old F presents to the emergency department with the chief complaint of headache, described as severe, with intensity rated at >10. Quality is described as stabbing, and is localized to the head. Patient reports no radiation. Patient started experiencing this minute(s) (30, gradual onset) and it has been constant. No relieving factors improve symptom(s), Movement worsens symptoms (worse with movement of her back) . Patient notes fever/chills (has been feeling warm since onset of symptoms), headaches and nausea/vomiting; denies confusion, chest pain, cough, diaphoresis, rash, seizure, shortness of breath and syncope. Related Data Home Medications Medication Instructions Recorded Confirmed methadone [Dolophine] 120 mg PO DAILY 12/25/15 09/03/18 acetaminophen [Mapap Extra 1,000 mg PO Q6H 5 Days #60 tab 11/19/17 09/03/18 Strength] albuterol sulfate 1 puff INHALATION Q6H PRN 02/03/18 09/03/18 paroxetine HCl [Paxil] 10 mg PO HS 02/03/18 09/03/18 docusate sodium [Docusil] 100 mg PO DAILY #60 cap 07/01/18 09/03/18 omeprazole 40 mg PO DAILY #30 cap 07/01/18 09/03/18 [place] 1 tab PO QID 08/30/18 09/03/18 promethazine 25 mg PO Q6H PRN #10 tab 08/30/18 09/03/18 Previous Rx's Medication Instructions Recorded acetaminophen [Mapap Extra 1,000 mg PO Q6H 5 Days #60 tab 11/19/17 Strength] docusate sodium [Docusil] 100 mg PO DAILY #60 cap 07/01/18 omeprazole 40 mg PO DAILY #30 cap 07/01/18 promethazine 25 mg PO Q6H PRN #10 tab 08/30/18 Allergies Allergy/AdvReac Type Severity Reaction Status Date / Time meperidine HCl [From Demerol] Allergy Severe Anaphylaxsi Unverified 09/03/18 21:17 s venom-honey bee Allergy Severe anaphylaxis Unverified 09/03/18 21:17 [bee venom (honey bee)] lithium AdvReac Mild NAUSEA Unverified 09/03/18 21:17 sertraline HCl [From Zoloft] AdvReac Mild NIGHTMARES Unverified 09/03/18 21:17 General KALINA: 3 Review of Systems <RICCO Dunne - Last Filed: 09/06/18 07:56> Constitutional Reports as per HPI, Reports chills, Reports fatigue, Reports fever(s), Denies frequent falls, Reports headache(s) and Denies weakness Eyes Reports as per HPI, Denies change in vision, Denies eye discharge and Denies irritation ENT Reports as per HPI, Denies abnormal hearing, Denies vertigo, Denies dizziness and Reports headache(s) Cardiovascular Reports as per HPI, Denies chest pain, Denies syncope and Denies dyspnea Respiratory Reports as per HPI, Denies chest congestion, Denies cough and Denies dyspnea Gastrointestinal Reports as per HPI, Denies abdominal pain, Denies change in bowel habits, Denies nausea and Denies vomiting Musculoskeletal Denies abnormal gait, Denies numbness and Denies tingling Integumentary/Breasts Reports as per HPI and Denies rash Neurologic Reports as per HPI, Denies abnormal hearing, Denies abnormal movements, Denies abnormal speech, Denies abnormal gait, Denies confusion, Denies vertigo, Denies dizziness, Denies syncope, Denies frequent falls, Reports headache(s), Denies focal weakness, Denies numbness, Denies radicular pain, Denies sensory deficit, Denies tingling, Denies paresthesias and Denies weakness Psychiatric Denies confusion Endocrine Reports fatigue PFSH <RICCO Dunne - Last Filed: 09/06/18 07:56> Medical History Nephrolithiasis (Chronic) Scoliosis (Chronic) PTSD (post-traumatic stress disorder) (Chronic) History of intravenous drug abuse (Chronic) Depression (Chronic) Asthma (Chronic) Migraine headache with aura (Chronic ~2000) Hepatitis C infection (Chronic) Chronic daily headache (Chronic) Opioid dependence in controlled environment (Chronic) Blood bacterial culture positive (Resolved) Community acquired bacterial pneumonia (Resolved) S/P tubal ligation (Resolved) Therapeutic opioid induced constipation (Resolved) Surgical History History of (Resolved) History of cerebral aneurysm repair (Resolved ~2014) S/P cystoscopy with ureteral stent placement (Resolved) Status post thoracic spinal fusion (Resolved) Family History Paternal Aunt Cerebral aneurysm Social History Smoking/Tobacco Use Status: Current every day Tobacco Type: cigarettes Quit status: considering quitting Drug use: Socially Substance use type: former substance user, marijuana, crack/cocaine, heroin, opiates and IV drugs Details: former heroin and cocaine user, current enrolled in [facility] on methadone treatment program Household members: other Details: lives w/ cousin's ex- and her children Number of Children: 3 Do you feel safe at home: Yes Do you feel safe in your relationship?: Yes History History 2 Para 3 Hx # Term Pregnancies 2 Multiple births Hx # Pregnancies Ectopic pregnancies AB induced Hx Number of Living Children 3 AB spontaneous Exam <RICCO Dunne - Last Filed: 09/06/18 07:56> Const General: cooperative, healthy appearing, well developed, well groomed and acute distress (patient yelling, covering head, very anxious and in pain) moderate Nutritional Appearance: well nourished and overweight Orientation: alert and awake [facility] Head: normal to inspection, normocephalic and atraumatic Ears: hearing grossly normal bilaterally, external ears normal and TM's normal bilaterally General nose exam: external nose normal and nares normal Face and sinus: normal facial exam, sinuses nontender and face symmetric Mouth: oral mucosae normal, lip normal, tongue normal, oropharynx normal and moist mucous membranes Teeth and gingiva: dentition normal Throat: posterior oropharynx normal, tonsils normal and uvula midline Eyes General: appearance normal, both eyes and all related structures (patient has photophobita) Alignment and Position: alignment normal Periorbital: periorbital findings normal Eyelids: eyelids normal Conjunctivae: conjunctivae normal Sclera: sclerae normal Cornea: corneas normal Pupils: PERRL EOM: EOM intact bilaterally Direct ophthalmoscopy: normal light reflex Neck Neck: normal visual inspection, full ROM, no lymphadenopathy, no lymphadenopathy noted, negative Brudzinski's sign and positive Kernig's sign Resp Effort & Inspection: normal respiratory effort, able to speak in complete sentences and no respiratory distress Auscultation: clear to auscultation bilaterally, no rales, no rhonchi and no wheezes Cardio Rate: regular rate Rhythm: regular rhythm Heart Sounds: S1 normal and S2 normal GI Inspection: non-distended and obesity Palpation: soft, no hepatosplenomegaly, not firm, no guarding and nontender Back/Spine/Pelvis Thoracic/Lumbar Spine: thoracic and lumbar spine normal to inspection (no pain with palpation) Skin General skin exam: no rashes or lesions noted Neuro General: alert and awake Cognition: normal cognition Speech: speech normal Gait: normal gait Motor: muscle tone normal throughout, strength 5/5 throughout, no pronator drift, no movement abnormalities noted and no fasciculations Sensory Exam: no sensory deficits noted (no saddle paresthesias) DTR's: Rt Brachioradialis: 2+, Lt Brachioradialis: 2+, Rt Patellar: 2+, Lt Patellar: 2+, Rt Ankle: 2+ and Lt Ankle: 2+ Plantar Reflexes: Downgoing: bilateral Coordination: [id number] test normal, [id number] test normal and rapid alternating movement UE normal Extrem General: normal to inspection, normal capillary refill, no pedal edema and no calf tenderness Psych Appearance: grossly normal and well kempt Mental Status: mental status grossly normal Speech and Movement: speech and movement normal <Charisma Islas MD - Last Filed: 09/04/18 15:19> Lumbar Puncture Time Out Performed: Yes Patient Position: left lateral decubitus Skin Prep: Povidone-Iodine 1% Local Anesthetic: Lidocaine 1% Amount of anesthesia used (mL): 5 Spinal Needle Gauge: 22G Interspace Used: L4-L5 Fluid Initially Obtained: clear Complications: none Additional Comments: Unable to obtain opening pressure, closing pressure 35 Sign Out <RICCO Dunne - Last Filed: 09/06/18 07:56> Sign Out Data: Sign Out Comment: Care transitioned to Dr. Abbott with CSF pending. Last updated by Mony Kelly PA at 09/04/18 01:42
[2018-09-03] MEDS: Normal Saline 1,000 ML 1000 ML IV (21:24)
[2018-09-03] MEDS: diphenhydrAMINE 50 MG/ML VIAL 25 MG IVP (21:25)
[2018-09-03] MEDS: Prochlorperazine 10 MG/2 ML VIAL IVP (21:25)
[2018-09-03] MEDS: MORPHine 10 MG/ML VIAL 2 MG IVP (21:25)
[2018-09-03 21:40] LABS: Abs Immature Grans 0.21 k/cumm (0.0-0.09); HCT 37.8 % (36.0-46.0); HGB 12.4 g/dL (12.0-15.5); Mean Corp. HGB Concentration 32.8 g/dL (32.0-36.0); Mean Corpuscular Hemoglobin 31.2 pg (27.0-33.0); Mean Corpuscular Volume 95.2 fL (80-95); Mean Platelet Volume 10.2 fL (8.0-11.0); Platelet Count 237 x1000/uL (130-400); RBC 3.97 m/cumm (4.00-5.20); RBC Distribution Width 13.1 % (11.7-14.6); White Blood Cell Count 4.48 k/cumm (4.4-10.8)
--- NOTE | 2018-09-03 21:45 | DI.CT_ITS ---
SYMPTOMS/DIAGNOSIS: SUDDEN ONSET HEADACHE NONCONTRAST HEAD CT: Comparison is made with [id number]. The exam is limited by motion artifact. There is artifact from metallic aneurysm clip seen in the right suprasellar region. No intracranial hemorrhage, mass or acute infarct is seen. There is a small area of decreased attenuation in the right frontal region which does not appear changed from the previous exam. The orbits, sinuses and mastoid air cells are grossly unremarkable. IMPRESSION: Limited exam due to motion. No acute abnormality is identified.
--- NOTE | 2018-09-03 21:55 | DI.CT_ITS ---
SYMPTOMS/DIAGNOSIS: SUDDEN ONSET HEADACHE CTA OF THE HEAD AND NECK: CT angiography was performed with multi slice acquisition and multi planar and 3D reconstruction. The patient has an aneurysm coil in the right suprasellar region which creates artifact and limits evaluation of the adjacent vasculature. The visualized intracranial vessels show normal caliber. No occlusion or new aneurysm is identified. There is a small region of low attenuation peripherally in the right superior parietal region which appears unchanged from previous CT's. 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 No aneurysm, stenosis or occlusion is seen involving the visualized vessels. CTA OF THE NECK: There is no evidence of occlusion or significant stenosis or dissection in the common, internal or external carotid arteries. The vertebral arteries are unremarkable as well. Metallic rods are noted in the upper thoracic spine. The visualized portions of the lungs are unremarkable. The sinuses and mastoid air cells appear clear. IMPRESSION: Negative CT Angiography of the neck.
[2018-09-03 21:56] LABS: ALT 59 U/L (12-78); AST 45 U/L (15-37); Albumin 3.1 g/dL (3.4-5.0); Alkaline Phosphatase 142 U/L (46-116); Anion Gap 8.1 mmol/L (3-11); BUN 18 mg/dL (7-18); Bilirubin, Total 0.2 mg/dL (0.2-1.0); CO2 29.9 mmol/L (21.0-32.0); CREATININE 1.02 mg/dL (0.55-1.02); Calcium 8.5 mg/dL (8.5-10.1); Chloride 102 mmol/L (98-107); Glucose 74 mg/dL (70-100); Potassium 3.6 mmol/L (3.5-5.1); Sodium 140 mmol/L (136-145); Total Protein 7.4 g/dL (6.4-8.2)
[2018-09-03] MEDS: Omnipaque 350 MG/ML 100 ML BTL IJ (21:57)
[2018-09-03 22:04] LABS: ETHANOL BLOOD < 3.0 mg/dL (<3)
[2018-09-03 22:05] LABS: Absolute Eosinophil Count 0.09 k/cumm (0.0-0.7); Absolute Lymphocyte Count 1.48 k/cumm (1.2-3.4); Absolute Monocyte Count 0.09 k/cumm (0.11-0.7); Absolute Neutrophil Count 2.73 k/cumm (1.2-6.7); Atypical Lymphocytes % 2; RBC Morphology Normal
--- NOTE | 2018-09-03 22:15 | DI.VRAD_ITS ---
EXAM: CT Head Without Contrast EXAM DATE/TIME: 09/03/2018 9:15 PM CLINICAL HISTORY: 27 years old, female; Pain; Headache not specified; Prior surgery; Surgery type: Aneurysm in 2014 TECHNIQUE: Imaging protocol: Axial computed tomography images of the head without contrast. Coronal and sagittal reformatted images were created and reviewed. Other technique: STROKE PROTOCOL was implemented. COMPARISON: CT HEAD WITHOUT CONTRAST 02/16/2017 1:06 AM FINDINGS: Brain: There is motion artifact on mobile slices overlying the cerebellum and to a lesser extent skull base. This slightly limits evaluation. Ventricles: Normal. No ventriculomegaly. Bones/joints: Unremarkable. No acute fracture. Sinuses: Visualized sinuses are unremarkable. No fluid levels. Mastoid air cells: Visualized mastoid air cells are well aerated. No mastoid effusion. Soft tissues: See Vasculature Finding. 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 There is severe focal metallic artifact which slightly limits evaluation. After accounting for this, no other abnormality is identified. IMPRESSION: 1. There is motion artifact on mobile slices overlying the cerebellum and to a lesser extent skull base. This slightly limits evaluation. 2. 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 There is severe focal metallic artifact which slightly limits evaluation. After accounting for this, no other abnormality is identified. No mass lesions are seen and there is no sinusitis evident in this patient with reported headache. ASSESSMENT: ASPECTS ([place] Stroke Program Early CT Score) is 10. Dictated and Authenticated by: Stuart Ibarra MD. Ordering:RAHEL Sykes MD
[2018-09-03 22:24] LABS: ESR 14 MM/HR (0-20)
--- NOTE | 2018-09-03 22:26 | ED.GENADUL_ITS ---
Discharge Plan Disposition Patient Disposition: [facility] INPATIENT Condition: Serious Discharge Details Chief Complaint: Headache Clinical Impression: Headache, Pseudotumor cerebri syndrome Admit Date/Time: 09/04/18 02:46 Admit Provider: Mateusz Tucker Attending Provider: Mateusz Tucker Primary Care Provider: Greg Gresham ED Provider: Perla Abbott Hospital Course Hospital Course: Chief Complaint: Headache, Fever HPI: 27 year old woman with a prior history of Cerebral Aneurysm s/p coiling in 2015, admitted from [facility] Emergency Department on 09/04 with complaints of headache and fever. Ms. Ervin has a Past Medical History of Opiate Dependence and IVDA in remission, reportedly sober for over one year. Her other history includes Obesity, Hepatitis C (untreated), depression, Fibromyalgia, and Scoliosis s/p Surgery intervention in 2007. She has undergone an AV Korina Ablation in 2014 for SVTs, and coiling of an intracranial aneurysm in 2015 at [facility]. Patient also has a lengthy history of migraines, which has in the past led to medication overuse. She presented to the ED with worsening headaches and complaints of low grade fevers, found to be mildly febrile but without a source. Her LP was essentially normal - an opening pressure was not obtained due to patient cooperation, but noted elevated closing pressures in obese woman with significant discomfort at the time. Work-up initially also included a negative CT of the head. She was r eferred for admission for further evaluation and treatment. The patient did not experience any more fevers following admission. Her CXR and Urinalysis were negative, and Blood Cultures remain with no growth X24 hours. Her labwork was unremarkable, with the exception of a CRP that was elevated in the 7's, ESR that was high at 21, and a Procalcitonin value grossly elevated at 35. 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 Of note, the MRI also showed evidence of an old infarct in the right frontal lobe - Of note, old films were reviewed by local neurology, Dr. Zaidi - noted to have a normal CT of the head on 02/13, with evidence of an infarct in the right frontal lobe on 02/16. Following the unexpected discover of acute ischemic changes in the brain, and given patient's age and history, case was discussed with Neurology at [facility] on 09/04, and she was accepted in transfer for [facility]. Prior to leaving [facility] Ms. Ervin also underwent further testing with an ECHO to rule out a PFO - results pending at time of admission. She had ultrasound ordered of the lower extremities, not performed as a bed became available at [facility]. At time of discharge she also has C ANCA/P ANCA, and Myeloperoxidase Ab pending. All of her imaging is being pushed electronically to [facility] as well. Discharge Data Discharge Date/Time-TO BE ENTERED AT DEPARTURE: 09/04/18 03:50 Discharge Physician: Perla Abbott Medical Decision Making <RICCO Dunne - Last Filed: 09/06/18 07:56> Patient is a 27 year old female, hx of daily headaches, opioid dependence, presenting today with c/c of headache. states that CUADRA began 30 minutes ago. States it started gradually but did reach maximal severity within a few minutes. states this is much worse than her typical headache. Denies trauma. Patient has history of aneurysm which was clipped. She reports feeling warm since onset of symptoms. Denies recent illness, was feeling well prior to the onset of symptoms. Denies visual changes, has not noted any weakness. Is experiencing nausea, photophobia. She reports that she gets sharp pains that radiate down her back. State that prior ot arrival she found stretching her back as straight as posible was of benefit to her pain. On exam, she is writhing in pain, she appears anxious and distressed. She is moving well, has sharp pain with movements of neck and back, appears meningitic. PERRLA, neuro exam intact. With patietns history, I am concerned for bleed although she did not describe thunderclap CUADRA. She is also endorsing feelign warm and has low grade fever at 37.7. Considered infectious source but the sudden onset of symptoms without any prior sxs is unlikely. Patient has hx of IV drug abuse, has not used in >17 months per her report. Will obtain CT, labs and reevaluate. Gave Compazine, Benadryl, Morphine for pain. Will obtain CT and CTA. CT reviewed by radiologist: FINDINGS: Brain: There is motion artifact on mobile slices overlying the cerebellum and to a lesser extent skull base. This slightly limits evaluation. Ventricles: Normal. No ventriculomegaly. Bones/joints: Unremarkable. No acute fracture. Sinuses: Visualized sinuses are unremarkable. No fluid levels. Mastoid air cells: Visualized mastoid air cells are well aerated. No mastoid effusion. Soft tissues: See Vasculature Finding. 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 There is severe focal metallic artifact which slightly limits evaluation. After accounting for this, no other abnormality is identified. IMPRESSION: 1. There is motion artifact on mobile slices overlying the cerebellum and to a lesser extent skull base. This slightly limits evaluation. 2. 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 There is severe focal metallic artifact which slightly limits evaluation. After accounting for this, no other abnormality is identified. No mass lesions are seen and there is no sinusitis evident in this patient with reported headache. CTA reviewed: FINDINGS: Right internal carotid artery: There is an endovascular coil in the right suprasellar region. Artifact from this limits assessment of the adjacent vasculature. Visualized intracranial segment is patent with no hemodynamically significant stenosis. Right anterior cerebral artery: Unremarkable. No occlusion or significant stenosis. No aneurysm. Right middle cerebral artery: Unremarkable. No occlusion or significant stenosis. No aneurysm. Right posterior cerebral artery: Unremarkable. No occlusion or significant stenosis. No aneurysm. Right vertebral artery: Unremarkable. No occlusion or significant stenosis. No aneurysm. Left internal carotid artery: Unremarkable. Intracranial segment is patent with no significant stenosis. No aneurysm. Left anterior cerebral artery: Unremarkable. No occlusion or significant stenosis. No aneurysm. Left middle cerebral artery: Unremarkable. No occlusion or significant stenosis. No aneurysm. Left posterior cerebral artery: Unremarkable. No occlusion or significant stenosis. No aneurysm. Left vertebral artery: Unremarkable. No occlusion or significant stenosis. No aneurysm. Basilar artery: Unremarkable. No occlusion or significant stenosis. No aneurysm. Other vasculature: Visualized venous structures are unremarkable. HEAD: Brain: There is a stable small region of encephalomalacia in the right parietal cortex. No abnormal intracranial enhancement. IMPRESSION: Right suprasellar endovascular coil. Artifact from this limits assessment of the adjacent vasculature. No other aneurysm, occlusion or dissection seen. Labs significant for minimally elevated ALT and alk phos, this is typical for the patient. Otherwise without signfiicant abnormality, awaiting urine. Patient continues to endorse severe pain despite the above interventions. Plan for LP. She has had one historically. We discussed risks/benefits of the procedure. This was also discussed with Dr. Islas who preformed the LP. Fluid clear. Closing pressure measured at 35. Awaiting CSF results. Patient may have pseudotumor cerebri. She is overweight and of child bearing age. She is much calmer at this time. She is now endorsing some visual changes that she describes as aura that have been present for the past few weeks. No acute change in this with onset of todays headache. At the end of my shift, CSF is pending. Care transitioned to Dr. Abbott <Perla Abbott, DO - Last Filed: 09/04/18 06:26> Please see RICCO Sykes's note for initial presentation, exam and plan. Patient is a 27-year-old female with a history of depression, fibromyalgia, migraines, AVNRT status post ablation in 2014, cerebral aneurysm status post coiling in 2014 who presents for headache for the past 3 days. Patient states that headache started gradually, is sharp and within her entire head. She also admits to intermittent blurry vision which she describes as occasional flashes of light. She also admits to photophobia and nausea and vomiting. States this feels different than her usual migraine in the location of pain as her migraines are usually one-sided and in the intensity and duration. Upon my examination, no focal deficits. Patient is sleepy status post a dose of Dilaudid. She states her headache is improved. Patient had lab work and imaging done on arrival. White blood cell count 4. Bands 8. Normal electrolytes. Urinalysis notes positive opiates. CT head and CTA head and neck noted prior coiling/clip but no other acute findings. Case endorsed to follow-up on CSF to rule out possible subarachnoid hemorrhage due to patient's previous history of cerebral aneurysm. Patient had no history of recorded fevers at home, no meningeal signs here, and normal white count, so appear less likely consistent with meningitis. CSF results noted it to be clear and colorless, WBC 2, RBC 1, monocyte 2, glucose 55, protein 27. Dr. Charisma Islas performed the LP and was unable to obtain an opening pressure but stated the closing pressure was 35. Concern now possibly for pseudotumor cerebri considering patient's body habitus and complaint of visual changes. Visual acuity was not obtained on arrival due to her significant headache and photophobia. Will page [facility] neurology for recommendations. Heart rate 110s. We will continue IV fluids. Patient otherwise sleeping and appears comfortable. 0215 --discussed with [facility] neurology -no beds available there. Agrees with plan for admission for observation. Could be consistent with possible pseudotumor cerebri. Would recommend MRI/MRV in the a.m. to assess for mass, pseudotumor, venous sinus thrombosis, empty sella syndrome. Also recommends a formal eye exam with ophthalmology. Once patient is able to be discharged, she can follow-up with neuro-ophthalmology at [facility]. If patient diagnosed with pseudotumor cerebri/idiopathic intracranial hypertension, would recommend weight loss, Topamax or Diamox if she does not have a history of kidney stones, and follow-up with neurology. 0245 --discussed with hospitalist -accepts patient for admission. Pt unlikely to be able to obtain MRI with h/o coiling. Patient informed of plan and is agreeable with admission. She does states she feels better since arrival. Medical Records Medical records reviewed: Yes I reviewed the patient's medical records. Imaging Data Radiologic Study: Radiologist's impression: CT Head Without Contrast EXAM DATE/TIME: 09/03/2018 9:15 PM FINDINGS: Brain: There is motion artifact on mobile slices overlying the cerebellum and to a lesser extent skull base. This slightly limits evaluation. Ventricles: Normal. No ventriculomegaly. Bones/joints: Unremarkable. No acute fracture. Sinuses: Visualized sinuses are unremarkable. No fluid levels. Mastoid air cells: Visualized mastoid air cells are well aerated. No mastoid effusion. Soft tissues: See Vasculature Finding. 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 There is severe focal metallic artifact which slightly limits evaluation. After accounting for this, no other abnormality is identified. IMPRESSION: 1. There is motion artifact on mobile slices overlying the cerebellum and to a lesser extent skull base. This slightly limits evaluation. 2. 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 There is severe focal metallic artifact which slightly limits evaluation. After accounting for this, no other abnormality is identified. No mass lesions are seen and there is no sinusitis evident in this patient with reported headache. ASSESSMENT: ASPECTS (Jocelin Stroke Program Early CT Score) is 10. Radiologic Study #2: Radiologist's impression: CT Angiography Head With Contrast EXAM DATE/TIME: 09/03/2018 9:19 PM FINDINGS: Right internal carotid artery: There is an endovascular coil in the right suprasellar region. Artifact from this limits assessment of the adjacent vasculature. Visualized intracranial segment is patent with no hemodynamically significant stenosis. Right anterior cerebral artery: Unremarkable. No occlusion or significant stenosis. No aneurysm. Right middle cerebral artery: Unremarkable. No occlusion or significant stenosis. No aneurysm. Right posterior cerebral artery: Unremarkable. No occlusion or significant stenosis. No aneurysm. Right vertebral artery: Unremarkable. No occlusion or significant stenosis. No aneurysm. Left internal carotid artery: Unremarkable. Intracranial segment is patent with no significant stenosis. No aneurysm. Left anterior cerebral artery: Unremarkable. No occlusion or significant stenosis. No aneurysm. Left middle cerebral artery: Unremarkable. No occlusion or significant stenosis. No aneurysm. Left posterior cerebral artery: Unremarkable. No occlusion or significant stenosis. No aneurysm. Left vertebral artery: Unremarkable. No occlusion or significant stenosis. No aneurysm. Basilar artery: Unremarkable. No occlusion or significant stenosis. No aneurysm. Other vasculature: Visualized venous structures are unremarkable. HEAD: Brain: There is a stable small region of encephalomalacia in the right parietal cortex. No abnormal intracranial enhancement. IMPRESSION: Right suprasellar endovascular coil. Artifact from this limits assessment of the adjacent vasculature. No other aneurysm, occlusion or dissection seen. CT Angiography Neck With Contrast EXAM DATE/TIME: 09/03/2018 9:19 PM FINDINGS: VASCULATURE: Right common carotid artery: Normal. No significant stenosis. No dissection or occlusion. Right internal carotid artery: Normal. Extracranial segment is patent with no significant stenosis. No dissection or occlusion. Right external carotid artery: Normal. No occlusion or significant stenosis. Right vertebral artery: Normal. No significant stenosis. No dissection or occlusion. Left common carotid artery: Normal. No significant stenosis. No dissection or occlusion. Left internal carotid artery: Normal. Extracranial segment is patent with no significant stenosis. No dissection or occlusion. Left external carotid artery: Normal. No occlusion or significant stenosis. Left vertebral artery: Normal. No significant stenosis. No dissection or occlusion. NECK: Bones/joints: Metallic rods are seen in the upper thoracic spine. Soft tissues: Normal. No significant soft tissue swelling. IMPRESSION: Unremarkable CT angiogram of the neck. Lab Data Lab results reviewed: Yes I reviewed the patient's lab results. 09/03/18 23:30 Cerebrospinal Fluid Body Fluid Culture - Pending 09/03/18 23:30 Cerebrospinal Fluid Gram Stain - Final Laboratory Tests Range/Units 09/03/18 09/03/18 09/03/18 21:20 21:20 21:20 WBC (4.4-10.8) k/cumm 4.48 RBC (4.00-5.20) m/cumm 3.97 L Hgb (12.0-15.5) g/dL 12.4 Hct (36.0-46.0) % 37.8 MCV (80-95) fL 95.2 H MCH (27.0-33.0) pg 31.2 MCHC (32.0-36.0) g/dL 32.8 RDW (11.7-14.6) % 13.1 Plt Count (130-400) x1000/uL 237 MPV (8.0-11.0) fL 10.2 Immature Gran % See Differential Neutrophils % 53.0 Band Neutrophils % % 8.0 Lymphocytes % 31.0 Atypical Lymphs % 2 Monocytes % 2.0 Eosinophils % 2.0 Basophils % 0.0 Metamyelocytes % % 2.0 Absolute Neutrophils (1.2-6.7) k/cumm 2.73 Absolute Lymphocytes (1.2-3.4) k/cumm 1.48 Absolute Monocytes (0.11-0.7) k/cumm 0.09 L Absolute Eosinophils (0.0-0.7) k/cumm 0.09 Absolute Basophils (0.0-0.2) k/cumm 0.00 Differential Comment Mandiff RBC Morphology Normal Xanthochromia ESR (0-20) MM/HR 14 PT Cancelled INR Cancelled APTT Cancelled Sodium (136-145) mmol/L 140 Potassium (3.5-5.1) mmol/L 3.6 Chloride (98-107) mmol/L 102 Carbon Dioxide (21.0-32.0) mmol/L 29.9 Anion Gap (3-11) mmol/L 8.1 BUN (7-18) mg/dL 18 Creatinine (0.55-1.02) mg/dL 1.02 Estimated GFR/1.73 m2 (mL/min/1.73m2) >= 60.00 Glucose (70-100) mg/dL 74 Calcium (8.5-10.1) mg/dL 8.5 Total Bilirubin (0.2-1.0) mg/dL 0.2 AST (15-37) U/L 45 H ALT (12-78) U/L 59 Alkaline Phosphatase (46-116) U/L 142 H Total Protein (6.4-8.2) g/dL 7.4 Albumin (3.4-5.0) g/dL 3.1 L CSF Tube Number CSF Color CSF Clarity CSF WBC (0-5) /mm3 CSF RBC (0-5) /mm3 CSF Neutrophils CSF Lymphocytes CSF Monos/Macrophages (3-37) % CSF Other Cells CSF Diff Comment CSF Glucose (40-70) mg/dL CSF Total Protein (15-45) mg/dL Urine Opiates Screen (Negative) Urine Methadone Screen (Negative) Ur Barbiturates Screen (Negative) Ur Tricyclics Screen (Negative) Ur Amphetamines Screen (Negative) U Benzodiazepines Scrn (Negative) Urine Cocaine Screen (Negative) Ur THC Screen (Negative) Ethyl Alcohol (<3) mg/dL < 3.0 Range/Units 09/03/18 09/03/18 09/03/18 22:40 23:30 23:30 WBC (4.4-10.8) k/cumm RBC (4.00-5.20) m/cumm Hgb (12.0-15.5) g/dL Hct (36.0-46.0) % MCV (80-95) fL MCH (27.0-33.0) pg MCHC (32.0-36.0) g/dL RDW (11.7-14.6) % Plt Count (130-400) x1000/uL MPV (8.0-11.0) fL Immature Gran % Neutrophils % Band Neutrophils % % Lymphocytes % Atypical Lymphs % Monocytes % Eosinophils % Basophils % Metamyelocytes % % Absolute Neutrophils (1.2-6.7) k/cumm Absolute Lymphocytes (1.2-3.4) k/cumm Absolute Monocytes (0.11-0.7) k/cumm Absolute Eosinophils (0.0-0.7) k/cumm Absolute Basophils (0.0-0.2) k/cumm Differential Comment RBC Morphology Xanthochromia Absent ESR (0-20) MM/HR PT INR APTT Sodium (136-145) mmol/L Potassium (3.5-5.1) mmol/L Chloride (98-107) mmol/L Carbon Dioxide (21.0-32.0) mmol/L Anion Gap (3-11) mmol/L BUN (7-18) mg/dL Creatinine (0.55-1.02) mg/dL Estimated GFR/1.73 m2 (mL/min/1.73m2) Glucose (70-100) mg/dL Calcium (8.5-10.1) mg/dL Total Bilirubin (0.2-1.0) mg/dL AST (15-37) U/L ALT (12-78) U/L Alkaline Phosphatase (46-116) U/L Total Protein (6.4-8.2) g/dL Albumin (3.4-5.0) g/dL CSF Tube Number 4 CSF Color Colorless CSF Clarity Clear CSF WBC (0-5) /mm3 2 CSF RBC (0-5) /mm3 1 CSF Neutrophils CSF Lymphocytes CSF Monos/Macrophages (3-37) % 2 L CSF Other Cells CSF Diff Comment CSF Glucose (40-70) mg/dL 55 CSF Total Protein (15-45) mg/dL 27 Urine Opiates Screen (Negative) Positive Urine Methadone Screen (Negative) Positive Ur Barbiturates Screen (Negative) Negative Ur Tricyclics Screen (Negative) Negative Ur Amphetamines Screen (Negative) Negative U Benzodiazepines Scrn (Negative) Negative Urine Cocaine Screen (Negative) Negative Ur THC Screen (Negative) Negative Ethyl Alcohol (<3) mg/dL Range/Units 09/03/18 23:40 WBC (4.4-10.8) k/cumm RBC (4.00-5.20) m/cumm Hgb (12.0-15.5) g/dL Hct (36.0-46.0) % MCV (80-95) fL MCH (27.0-33.0) pg MCHC (32.0-36.0) g/dL RDW (11.7-14.6) % Plt Count (130-400) x1000/uL MPV (8.0-11.0) fL Immature Gran % Neutrophils % Band Neutrophils % % Lymphocytes % Atypical Lymphs % Monocytes % Eosinophils % Basophils % Metamyelocytes % % Absolute Neutrophils (1.2-6.7) k/cumm Absolute Lymphocytes (1.2-3.4) k/cumm Absolute Monocytes (0.11-0.7) k/cumm Absolute Eosinophils (0.0-0.7) k/cumm Absolute Basophils (0.0-0.2) k/cumm Differential Comment RBC Morphology Xanthochromia Cancelled ESR (0-20) MM/HR PT INR APTT Sodium (136-145) mmol/L Potassium (3.5-5.1) mmol/L Chloride (98-107) mmol/L Carbon Dioxide (21.0-32.0) mmol/L Anion Gap (3-11) mmol/L BUN (7-18) mg/dL Creatinine (0.55-1.02) mg/dL Estimated GFR/1.73 m2 (mL/min/1.73m2) Glucose (70-100) mg/dL Calcium (8.5-10.1) mg/dL Total Bilirubin (0.2-1.0) mg/dL AST (15-37) U/L ALT (12-78) U/L Alkaline Phosphatase (46-116) U/L Total Protein (6.4-8.2) g/dL Albumin (3.4-5.0) g/dL CSF Tube Number Cancelled CSF Color Cancelled CSF Clarity Cancelled CSF WBC (0-5) /mm3 Cancelled CSF RBC (0-5) /mm3 Cancelled CSF Neutrophils Cancelled CSF Lymphocytes Cancelled CSF Monos/Macrophages (3-37) % Cancelled CSF Other Cells Cancelled CSF Diff Comment Cancelled CSF Glucose (40-70) mg/dL CSF Total Protein (15-45) mg/dL Urine Opiates Screen (Negative) Urine Methadone Screen (Negative) Ur Barbiturates Screen (Negative) Ur Tricyclics Screen (Negative) Ur Amphetamines Screen (Negative) U Benzodiazepines Scrn (Negative) Urine Cocaine Screen (Negative) Ur THC Screen (Negative) Ethyl Alcohol (<3) mg/dL <Charisma Islas MD - Last Filed: 09/04/18 15:19> Pt seen initially by Mony Kelly. Pt presented to the emergency department with progressive headaches in the past few months, but with severe headache that began suddenly today. Patient reports this headache is worse than her other headaches. She reports that she had a subarachnoid hemorrhage in the past, and her headache today feels similar to that. Patient was also found to be febrile upon initial presentation to the emergency department. Neurologic exam is nonfocal. Patient underwent CT of the head, CTA of the brain, and laboratory testing. CT head and CT brain significant for old aneurysm clipping, no acute process, no new aneurysm. Quality of headache and exam are consistent with subarachnoid hemorrhage and meningitis, antibiotics held pending CSF results. LP was performed by me, one attempt, no complications, however patient was moving at the time of initial CSF was obtained and therefore samples were taken without opening pressure. Closing pressure was obtained however and was 35 mmHg. Please see procedure note. Patient reported improvement in pain after LP, however she did receive 1 mg of Dilaudid prior to procedure. Patient was signed out to Dr. Abbott at time of shift change with CSF results pending. HPI <RICCO Dunne - Last Filed: 09/06/18 07:56> General Mode of arrival: wheelchair . Date/Time Provider Initiated Documentation: 09/03/18 21:12 . Limitations to Documentation: no limitations . Information obtained by: patient and RN notes reviewed . History of Present Illness 27 year old F presents to the emergency department with the chief complaint of headache, described as severe, with intensity rated at >10. Quality is described as stabbing, and is localized to the head. Patient reports no radiation. Patient started experiencing this minute(s) (30, gradual onset) and it has been constant. No relieving factors improve symptom(s), Movement worsens symptoms (worse with movement of her back) . Patient notes fever/chills (has been feeling warm since onset of symptoms), headaches and nausea/vomiting; denies confusion, chest pain, cough, diaphoresis, rash, seizure, shortness of breath and syncope. Related Data Home Medications Medication Instructions Recorded Confirmed methadone [Dolophine] 120 mg PO DAILY 12/25/15 09/03/18 acetaminophen [Mapap Extra 1,000 mg PO Q6H 5 Days #60 tab 11/19/17 09/03/18 Strength] albuterol sulfate 1 puff INHALATION Q6H PRN 02/03/18 09/03/18 paroxetine HCl [Paxil] 10 mg PO HS 02/03/18 09/03/18 docusate sodium [Docusil] 100 mg PO DAILY #60 cap 07/01/18 09/03/18 omeprazole 40 mg PO DAILY #30 cap 07/01/18 09/03/18 [place] 1 tab PO QID 08/30/18 09/03/18 promethazine 25 mg PO Q6H PRN #10 tab 08/30/18 09/03/18 Previous Rx's Medication Instructions Recorded acetaminophen [Mapap Extra 1,000 mg PO Q6H 5 Days #60 tab 11/19/17 Strength] docusate sodium [Docusil] 100 mg PO DAILY #60 cap 07/01/18 omeprazole 40 mg PO DAILY #30 cap 07/01/18 promethazine 25 mg PO Q6H PRN #10 tab 08/30/18 Allergies Allergy/AdvReac Type Severity Reaction Status Date / Time meperidine HCl [From Demerol] Allergy Severe Anaphylaxsi Unverified 09/03/18 21:17 s venom-honey bee Allergy Severe anaphylaxis Unverified 09/03/18 21:17 [bee venom (honey bee)] lithium AdvReac Mild NAUSEA Unverified 09/03/18 21:17 sertraline HCl [From Zoloft] AdvReac Mild NIGHTMARES Unverified 09/03/18 21:17 General KALINA: 3 Review of Systems <RICCO Dunne - Last Filed: 09/06/18 07:56> Constitutional Reports as per HPI, Reports chills, Reports fatigue, Reports fever(s), Denies frequent falls, Reports headache(s) and Denies weakness Eyes Reports as per HPI, Denies change in vision, Denies eye discharge and Denies irritation ENT Reports as per HPI, Denies abnormal hearing, Denies vertigo, Denies dizziness and Reports headache(s) Cardiovascular Reports as per HPI, Denies chest pain, Denies syncope and Denies dyspnea Respiratory Reports as per HPI, Denies chest congestion, Denies cough and Denies dyspnea Gastrointestinal Reports as per HPI, Denies abdominal pain, Denies change in bowel habits, Denies nausea and Denies vomiting Musculoskeletal Denies abnormal gait, Denies numbness and Denies tingling Integumentary/Breasts Reports as per HPI and Denies rash Neurologic Reports as per HPI, Denies abnormal hearing, Denies abnormal movements, Denies abnormal speech, Denies abnormal gait, Denies confusion, Denies vertigo, Denies dizziness, Denies syncope, Denies frequent falls, Reports headache(s), Denies focal weakness, Denies numbness, Denies radicular pain, Denies sensory deficit, Denies tingling, Denies paresthesias and Denies weakness Psychiatric Denies confusion Endocrine Reports fatigue PFSH <RICCO Dunne - Last Filed: 09/06/18 07:56> Medical History Nephrolithiasis (Chronic) Scoliosis (Chronic) PTSD (post-traumatic stress disorder) (Chronic) History of intravenous drug abuse (Chronic) Depression (Chronic) Asthma (Chronic) Migraine headache with aura (Chronic ~2000) Hepatitis C infection (Chronic) Chronic daily headache (Chronic) Opioid dependence in controlled environment (Chronic) Blood bacterial culture positive (Resolved) Community acquired bacterial pneumonia (Resolved) S/P tubal ligation (Resolved) Therapeutic opioid induced constipation (Resolved) Surgical History History of (Resolved) History of cerebral aneurysm repair (Resolved ~2014) S/P cystoscopy with ureteral stent placement (Resolved) Status post thoracic spinal fusion (Resolved) Family History Paternal Aunt Cerebral aneurysm Social History Smoking/Tobacco Use Status: Current every day Tobacco Type: cigarettes Quit status: considering quitting Drug use: Socially Substance use type: former substance user, marijuana, crack/cocaine, heroin, opiates and IV drugs Details: former heroin and cocaine user, current enrolled in [facility] on methadone treatment program Household members: other Details: lives w/ cousin's ex- and her children Number of Children: 3 Do you feel safe at home: Yes Do you feel safe in your relationship?: Yes History History 2 Para 3 Hx # Term Pregnancies 2 Multiple births Hx # Pregnancies Ectopic pregnancies AB induced Hx Number of Living Children 3 AB spontaneous Exam <RICCO Dunne - Last Filed: 09/06/18 07:56> Const General: cooperative, healthy appearing, well developed, well groomed and acute distress (patient yelling, covering head, very anxious and in pain) moderate Nutritional Appearance: well nourished and overweight Orientation: alert and awake [facility] Head: normal to inspection, normocephalic and atraumatic Ears: hearing grossly normal bilaterally, external ears normal and TM's normal bilaterally General nose exam: external nose normal and nares normal Face and sinus: normal facial exam, sinuses nontender and face symmetric Mouth: oral mucosae normal, lip normal, tongue normal, oropharynx normal and moist mucous membranes Teeth and gingiva: dentition normal Throat: posterior oropharynx normal, tonsils normal and uvula midline Eyes General: appearance normal, both eyes and all related structures (patient has photophobita) Alignment and Position: alignment normal Periorbital: periorbital findings normal Eyelids: eyelids normal Conjunctivae: conjunctivae normal Sclera: sclerae normal Cornea: corneas normal Pupils: PERRL EOM: EOM intact bilaterally Direct ophthalmoscopy: normal light reflex Neck Neck: normal visual inspection, full ROM, no lymphadenopathy, no lymphadenopathy noted, negative Brudzinski's sign and positive Kernig's sign Resp Effort & Inspection: normal respiratory effort, able to speak in complete sentences and no respiratory distress Auscultation: clear to auscultation bilaterally, no rales, no rhonchi and no wheezes Cardio Rate: regular rate Rhythm: regular rhythm Heart Sounds: S1 normal and S2 normal GI Inspection: non-distended and obesity Palpation: soft, no hepatosplenomegaly, not firm, no guarding and nontender Back/Spine/Pelvis Thoracic/Lumbar Spine: thoracic and lumbar spine normal to inspection (no pain with palpation) Skin General skin exam: no rashes or lesions noted Neuro General: alert and awake Cognition: normal cognition Speech: speech normal Gait: normal gait Motor: muscle tone normal throughout, strength 5/5 throughout, no pronator drift, no movement abnormalities noted and no fasciculations Sensory Exam: no sensory deficits noted (no saddle paresthesias) DTR's: Rt Brachioradialis: 2+, Lt Brachioradialis: 2+, Rt Patellar: 2+, Lt Patellar: 2+, Rt Ankle: 2+ and Lt Ankle: 2+ Plantar Reflexes: Downgoing: bilateral Coordination: [id number] test normal, [id number] test normal and rapid alternating movement UE normal Extrem General: normal to inspection, normal capillary refill, no pedal edema and no calf tenderness Psych Appearance: grossly normal and well kempt Mental Status: mental status grossly normal Speech and Movement: speech and movement normal <Charisma Islas MD - Last Filed: 09/04/18 15:19> Lumbar Puncture Time Out Performed: Yes Patient Position: left lateral decubitus Skin Prep: Povidone-Iodine 1% Local Anesthetic: Lidocaine 1% Amount of anesthesia used (mL): 5 Spinal Needle Gauge: 22G Interspace Used: L4-L5 Fluid Initially Obtained: clear Complications: none Additional Comments: Unable to obtain opening pressure, closing pressure 35 Sign Out <RICCO Dunne - Last Filed: 09/06/18 07:56> Sign Out Data: Sign Out Comment: Care transitioned to Dr. Abbott with CSF pending. Last updated by Mony Kelly PA at 09/04/18 01:42
--- NOTE | 2018-09-03 22:29 | DI.VRAD_ITS ---
EXAM: CT Angiography Head With Contrast EXAM DATE/TIME: 09/03/2018 9:19 PM CLINICAL HISTORY: 27 years old, female; Pain; Headache; Prior surgery; Surgery date: 6+ months; Surgery type: Aneurysm in 2014 TECHNIQUE: Imaging protocol: Axial computed tomographic angiography images of the head with intravenous contrast using CT angiography protocol. Coronal and sagittal reformatted images were created and reviewed. 3D rendering: MIP reconstructed images were created and reviewed. COMPARISON: CT HEAD WO 09/03/2018 9:39 PM FINDINGS: Right internal carotid artery: There is an endovascular coil in the right suprasellar region. Artifact from this limits assessment of the adjacent vasculature. Visualized intracranial segment is patent with no hemodynamically significant stenosis. Right anterior cerebral artery: Unremarkable. No occlusion or significant stenosis. No aneurysm. Right middle cerebral artery: Unremarkable. No occlusion or significant stenosis. No aneurysm. Right posterior cerebral artery: Unremarkable. No occlusion or significant stenosis. No aneurysm. Right vertebral artery: Unremarkable. No occlusion or significant stenosis. No aneurysm. Left internal carotid artery: Unremarkable. Intracranial segment is patent with no significant stenosis. No aneurysm. Left anterior cerebral artery: Unremarkable. No occlusion or significant stenosis. No aneurysm. Left middle cerebral artery: Unremarkable. No occlusion or significant stenosis. No aneurysm. Left posterior cerebral artery: Unremarkable. No occlusion or significant stenosis. No aneurysm. Left vertebral artery: Unremarkable. No occlusion or significant stenosis. No aneurysm. Basilar artery: Unremarkable. No occlusion or significant stenosis. No aneurysm. Other vasculature: Visualized venous structures are unremarkable. HEAD: Brain: There is a stable small region of encephalomalacia in the right parietal cortex. No abnormal intracranial enhancement. IMPRESSION: Right suprasellar endovascular coil. Artifact from this limits assessment of the adjacent vasculature. No other aneurysm, occlusion or dissection seen. EXAM: CT Angiography Neck With Contrast EXAM DATE/TIME: 09/03/2018 9:19 PM CLINICAL HISTORY: 27 years old, female; Pain; Headache; Prior surgery; Surgery date: 6+ months; Surgery type: Aneurysm in 2014 TECHNIQUE: Imaging protocol: Axial computed tomographic angiography images of the neck with intravenous contrast using CT angiography protocol. Coronal and sagittal reformatted images were created and reviewed. 3D rendering: MIP reconstructed images were created and reviewed. COMPARISON: CT HEAD WO 09/03/2018 9:39 PM FINDINGS: VASCULATURE: Right common carotid artery: Normal. No significant stenosis. No dissection or occlusion. Right internal carotid artery: Normal. Extracranial segment is patent with no significant stenosis. No dissection or occlusion. Right external carotid artery: Normal. No occlusion or significant stenosis. Right vertebral artery: Normal. No significant stenosis. No dissection or occlusion. Left common carotid artery: Normal. No significant stenosis. No dissection or occlusion. Left internal carotid artery: Normal. Extracranial segment is patent with no significant stenosis. No dissection or occlusion. Left external carotid artery: Normal. No occlusion or significant stenosis. Left vertebral artery: Normal. No significant stenosis. No dissection or occlusion. NECK: Bones/joints: Metallic rods are seen in the upper thoracic spine. Soft tissues: Normal. No significant soft tissue swelling. IMPRESSION: Unremarkable CT angiogram of the neck. COMMENT: Reference per NASCET criteria for degree of stenosis: Mild: less than 50% stenosis. Moderate: 50-69% stenosis. Severe: 70-94% stenosis. Near occlusion: 95-99% stenosis. Dictated and Authenticated by: Elise Pedro MD. Ordering:RAHEL Sykes MD
[2018-09-03 22:56] LABS: *AMPHETAMINES SCREEN URINE Negative (Negative); *BARBITURATES SCREEN URINE Negative (Negative); *BENZODIAZEPINES SCREEN URINE Negative (Negative); Cannabinoids THC Negative (Negative); Cocaine Screen,Urine Negative (Negative); METHADONE URINE SCREEN POSITIVE (Negative); OPIATES URINE SCREEN POSITIVE (Negative)
[2018-09-03 22:59] LABS: Tricyclic Antidepressants Negative (Negative)
[2018-09-03] MEDS: Normal Saline Flush 10 ML SYR IVP (23:04)
[2018-09-03] MEDS: Ondansetron 4 MG/2 ML VIAL IVP (23:05)
[2018-09-03] MEDS: HYDROmorphone 2 MG/ML VIAL 1 MG IVP (23:05)
[2018-09-04] VITALS (47 sets, daily range): BP systolic 104–139; BP diastolic 59–80; PULSE 68–129; RESP 10–26; TEMP 36–38.4; O2SAT 88–98
[2018-09-04 00:11] LABS: Glucose (CSF) 55 mg/dL (40-70); Total Protein (CSF) 27 mg/dL (15-45)
[2018-09-04 00:55] LABS: Clarity Clear; RBC 1 /mm3 (0-5); Tube # 4; WBC 2 /mm3 (0-5); Xanthochromia Absent
[2018-09-04] MEDS: Normal Saline 1,000 ML 1000 ML IV (01:04)
[2018-09-04] MEDS: Mylanta Suspension 30 ML CUP PO (04:26)
[2018-09-04] MEDS: Dexamethasone 10 MG/ML VIAL IVP (04:27)
[2018-09-04] MEDS: Normal Saline Flush 10 ML SYR IVP ×2 (04:27→15:41)
[2018-09-04] MEDS: Acetaminophen 500 MG TAB 1000 MG PO ×4 (04:27→21:37)
[2018-09-04] MEDS: Omeprazole 20 MG CAPCR 40 MG PO ×2 (04:27→21:38)
--- NOTE | 2018-09-04 06:47 | W.PM.HP.N ---
Date of service: 09/04/18 Time of Service: 06:47 Assessment and Plan (1) Migraine headache with aura: Current visit: No Status: Chronic although she says that her headaches are different than her migraine headaches in that they are more severe and vise like and bilateral, they are associated w/ visual scotomata, photophobia, nausea and vomiting and sound migraine in nature. However with elevated CSF pressures, and worsening headaches it does raise concern for idiopathic intracranial hypertension. I am not sure that further MRI/MRV imaging can be done in setting of aneurysmal clips and coils. She has history of nephrolithiasis which makes treatment w/Diamox a contraindication. She could be treated w/ Topamax for migraine prevention. I am not sure the role of her fevers has to do w/ her headaches. The CSF appeared to be very benign and not suggestive of viral or bacterial meningoencephalitis. I have placed a call to [facility] transfer center for phone consultation with neurology to discuss further workup given her low grade fevers and benign CSF studies. I have also ordered further blood cultures and inflammatory markers including pro-calcitonin, ESR, CRP and will check UA and CXR to be sure that she has no other source for infection. If we can safely perform the MRI and MRV these should be done to rule out venous sinus thrombosis and tumor. Her CTA did not show any new aneurysms. (2) Acute febrile illness: Current visit: Yes Status: Acute further infectious workup as outlined above. (3) Dyspepsia: Current visit: Yes Status: Acute patient has been experiencing dyspepsia and epigastric abdominal pains and was seen in the ER on 08/30/2018 and this may be related to all the motrin she has been needing for her CUADRA's. She has gotten symptomatic relief w/ Zanatac and Prilosec. I will keep her on Prilosec and add Carafate particularly since she may need further motrin for her headaches. History of Present Illness Chief Complaint: headaches Narrative: 27-year-old female with past medical history of migraines since age of 10, cerebral aneurysm s/p clipping and coils in 2014, asthma, depression, PTSD, previous IV drug abuser who is been abstinent for 17 months, positive hepatitis C yet to be treated, presents with increasing headaches over the last 6 months. Initially she thought this was her usual migraines. She has been getting this couple times a week have been associated with viselike quality all of her head associated with blurred vision visual Renan Andrade strobe like flashing lights along with colored spots associate with nausea and vomiting. Pain comes and goes and goes from the top of her head down to the back of her neck. Last night her headaches were the worst of her life feeling severe pressure behind her eyes. These headaches for last week but accompanied with low-grade fevers up to 101 along with diaphoresis. There is been no history of ill contacts and no recent travel outside the country. Patient does not recall any tick bites or any other rashes. Patient was worked up in the emergency department by Dr. Shazia Islas and Mony Kelly CNP and Dr. Perla Abbott with CT scan of the head, routine labs including CBC chemistry profile and subsequently a lumbar puncture. Labs were unremarkable including normal CBC normal chemistry profile. CT of the head with contrast showed motion artifact over the images of the cerebellum and skull base. Right parasellar area had an aneurysmal clip with severe focal metallic artifact that limited evaluation. There is no mass lesion seen. CTA of the neck and brain was performed. CTA of the brain showed right suprasellar endovascular coil with no evidence of aneurysm occlusion or dissection. CTA of the neck was unremarkable. Patient subsequently underwent spinal tap. CSF was clear colorless with only 2 white cells 1 red cell. With normal glucose and protein levels. However her closing pressure was elevated at 35 mm. This raised the suggestion of possible pseudotumor cerebri also known as idiopathic intracranial hypertension. Treatment in the emergency room included multiple medications for her headache including Compazine, Dilaudid, morphine, Benadryl. Patient did get some symptomatic relief although is not clear whether it was because of the medications given or due to the therapeutic effects of the spinal tap. Dr. Abbott contacted [facility] neurology for possible transfer. No beds were available but she held a discussion with the [facility] neurologist on-call who recommended admission overnight for observation including follow-up MRI/MRV in the morning to assess for mass, pseudotumor, venous sinus thrombosis versus empty sella syndrome. He also recommended formal eye exam with ophthalmology and follow-up with neuro-ophthalmology at [facility] upon discharge. Further recommendations include weight loss and consideration for treatment Topamax or Diamox and follow-up with neurology. Review of Systems Constitutional Reports chills, Reports fatigue, Reports fever(s) and Reports headache(s) Eyes Reports blurry vision, Reports change in vision, Reports other visual disturbances, Reports seeing flashes, Reports photophobia and Reports spots in vision ENT Reports headache(s) Cardiovascular Reports system reviewed and no additional complaints, except as docu and Reports dyspnea on exertion Respiratory Reports dyspnea on exertion and Reports wheezing Gastrointestinal Reports dyspepsia, Reports heartburn, Reports nausea and Reports vomiting Genitourinary Reports system reviewed and no additional complaints, except as docu Musculoskeletal Reports as per HPI and Reports back pain Integumentary/Breasts Reports system reviewed and no additional complaints, except as docu Neurologic Reports as per HPI, Reports headache(s) and Reports other visual disturbances Psychiatric Reports system reviewed and no additional complaints, except as docu Endocrine Reports system reviewed and no additional complaints, except as docu and Reports fatigue Hematologic/Lymphatic Reports system reviewed and no additional complaints, except as docu Allergic/Immunologic Reports system reviewed and no additional complaints, except as docu and Reports wheezing PFSH Medical History Nephrolithiasis (Chronic) Scoliosis (Chronic) PTSD (post-traumatic stress disorder) (Chronic) History of intravenous drug abuse (Chronic) Depression (Chronic) Asthma (Chronic) Migraine headache with aura (Chronic ~2000) Hepatitis C infection (Chronic) Chronic daily headache (Chronic) Opioid dependence in controlled environment (Chronic) Blood bacterial culture positive (Resolved) Community acquired bacterial pneumonia (Resolved) S/P tubal ligation (Resolved) Therapeutic opioid induced constipation (Resolved) Surgical History History of (Resolved) History of cerebral aneurysm repair (Resolved ~2014) S/P cystoscopy with ureteral stent placement (Resolved) Status post thoracic spinal fusion (Resolved) Social History Smoking/Tobacco Use Status: Current every day Tobacco Type: cigarettes Smoking cigarettes per day: 5 Quit status: considering quitting Drug use: Socially Substance use type: former substance user, marijuana, crack/cocaine, heroin, opiates and IV drugs Details: former heroin and cocaine user, current enrolled in [facility] on methadone treatment program Household members: other Details: lives w/ cousin's ex- and her children Number of Children: 3 Do you feel safe at home: Yes Do you feel safe in your relationship?: Yes History History 2 Para 3 Hx # Term Pregnancies 2 Multiple births Hx # Pregnancies Ectopic pregnancies AB induced Hx Number of Living Children 3 AB spontaneous Meds Home Medications Medication Instructions Recorded Confirmed Type methadone [Dolophine] 120 mg PO DAILY 12/25/15 09/03/18 History acetaminophen [Mapap Extra 1,000 mg PO Q6H 5 Days #60 tab 11/19/17 09/03/18 Rx Strength] albuterol sulfate 1 puff INHALATION Q6H PRN 02/03/18 09/03/18 History paroxetine HCl [Paxil] 10 mg PO HS 02/03/18 09/03/18 History docusate sodium [Docusil] 100 mg PO DAILY #60 cap 07/01/18 09/03/18 Rx omeprazole 40 mg PO DAILY #30 cap 07/01/18 09/03/18 Rx [place] 1 tab PO QID 08/30/18 09/03/18 History promethazine 25 mg PO Q6H PRN #10 tab 08/30/18 09/03/18 Rx Allergies Allergy/AdvReac Type Severity Reaction Status Date / Time meperidine HCl [From Demerol] Allergy Severe Anaphylaxsi Unverified 09/03/18 21:17 s venom-honey bee Allergy Severe anaphylaxis Unverified 09/03/18 21:17 [bee venom (honey bee)] lithium AdvReac Mild NAUSEA Unverified 09/03/18 21:17 sertraline HCl [From Zoloft] AdvReac Mild NIGHTMARES Unverified 09/03/18 21:17 Exam Const General: cooperative, ill appearing acutely and lethargic Nutritional Appearance: obese Orientation: alert, awake and oriented x3 HENMT Head: normal to inspection, no palpable skull fracture, normocephalic and atraumatic Ears: hearing grossly normal bilaterally, external ears normal and TM's normal bilaterally General nose exam: external nose normal, nares normal and nasal mucous membranes and turbinates normal Face and sinus: normal facial exam, sinuses nontender and face symmetric Mouth: oral mucosae normal, lip normal, tongue normal, oropharynx normal and moist mucous membranes Teeth and gingiva: fair dentition and multiple restorations Throat: posterior oropharynx normal Eyes General: appearance normal, both eyes and all related structures Alignment and Position: alignment normal Periorbital: periorbital findings normal Eyelids: eyelids normal Conjunctivae: conjunctivae normal Sclera: sclerae normal Cornea: corneas normal Pupils: PERRL and pinpoint bilaterally EOM: EOM intact bilaterally Direct ophthalmoscopy: photophobia (unable to visualize macula and optic nerve d/t photophobia and small pupils) Neck Neck: normal visual inspection, full ROM, no lymphadenopathy, no meningeal signs, trachea midline, supple and no JVD Carotids: normal carotid upstroke Lymphatic: no lymphadenopathy noted Resp Effort & Inspection: normal respiratory effort and able to speak in complete sentences Auscultation: clear to auscultation bilaterally Cardio Jugular venous pressure: no JVD Palpation: normal PMI Rate: regular rate Rhythm: regular rhythm Heart Sounds: S1 normal, S2 normal, normal, physiologic split S2, no murmurs and no rubs Pulses: normal peripheral pulses GI Inspection: normal to inspection and obesity Palpation: soft, no hepatosplenomegaly and nontender Percussion: normal to percussion Auscultation: normal bowel sounds Back/Spine/Pelvis Back: no CVA tenderness Cervical Spine: cervical ROM normal, No cervical muscular tenderness and No cervical spinal tenderness Thoracic/Lumbar Spine: surgical scar(s) present (upper thoracic midline incision well healed) Skin General skin exam: no rashes or lesions noted and other (multiple tatoos over arms and legs and chest) Neuro General: alert, awake, oriented x3, moves all extremities, normal light touch, pain and propioception, no focal motor deficits and other (lethargic but arouseable and oriented) Cognition: normal cognition Speech: speech normal Motor: muscle tone normal throughout, strength 5/5 throughout, no movement abnormalities noted and no fasciculations Sensory Exam: no sensory deficits noted Extrem General: normal to inspection, full ROM, normal capillary refill and no joint enlargement Psych Appearance: grossly normal Mental Status: mental status grossly normal Speech and Movement: speech and movement normal Mood: congruent mood Affect: normal affect Attitude: cooperative Thought Process: normal Thought Content: normal Insight: insight good Judgment: judgment good Results Labs : 09/03/18 21:20 09/03/18 21:20 Laboratory Results - last 24 hr 09/03/18 09/03/18 09/03/18 21:20 21:20 21:20 WBC 4.48 RBC 3.97 L Hgb 12.4 Hct 37.8 MCV 95.2 H MCH 31.2 MCHC 32.8 RDW 13.1 Plt Count 237 MPV 10.2 Immature Gran % See Differential Neutrophils % 53.0 Band Neutrophils % 8.0 Lymphocytes % 31.0 Atypical Lymphs % 2 Monocytes % 2.0 Eosinophils % 2.0 Basophils % 0.0 Metamyelocytes % 2.0 Absolute Neutrophils 2.73 Absolute Lymphocytes 1.48 Absolute Monocytes 0.09 L Absolute Eosinophils 0.09 Absolute Basophils 0.00 Differential Comment Mandiff RBC Morphology Normal Xanthochromia ESR 14 PT Cancelled INR Cancelled APTT Cancelled Sodium 140 Potassium 3.6 Chloride 102 Carbon Dioxide 29.9 Anion Gap 8.1 BUN 18 Creatinine 1.02 Estimated GFR/1.73 m2 >= 60.00 Glucose 74 Calcium 8.5 Total Bilirubin 0.2 AST 45 H ALT 59 Alkaline Phosphatase 142 H Total Protein 7.4 Albumin 3.1 L CSF Tube Number CSF Color CSF Clarity CSF WBC CSF RBC CSF Neutrophils CSF Lymphocytes CSF Monos/Macrophages CSF Other Cells CSF Diff Comment CSF Glucose CSF Total Protein Urine Opiates Screen Urine Methadone Screen Ur Barbiturates Screen Ur Tricyclics Screen Ur Amphetamines Screen U Benzodiazepines Scrn Urine Cocaine Screen Ur THC Screen Ethyl Alcohol < 3.0 09/03/18 09/03/18 09/03/18 22:40 23:30 23:30 WBC RBC Hgb Hct MCV MCH MCHC RDW Plt Count MPV Immature Gran % Neutrophils % Band Neutrophils % Lymphocytes % Atypical Lymphs % Monocytes % Eosinophils % Basophils % Metamyelocytes % Absolute Neutrophils Absolute Lymphocytes Absolute Monocytes Absolute Eosinophils Absolute Basophils Differential Comment RBC Morphology Xanthochromia Absent ESR PT INR APTT Sodium Potassium Chloride Carbon Dioxide Anion Gap BUN Creatinine Estimated GFR/1.73 m2 Glucose Calcium Total Bilirubin AST ALT Alkaline Phosphatase Total Protein Albumin CSF Tube Number 4 CSF Color Colorless CSF Clarity Clear CSF WBC 2 CSF RBC 1 CSF Neutrophils CSF Lymphocytes CSF Monos/Macrophages 2 L CSF Other Cells CSF Diff Comment CSF Glucose 55 CSF Total Protein 27 Urine Opiates Screen Positive Urine Methadone Screen Positive Ur Barbiturates Screen Negative Ur Tricyclics Screen Negative Ur Amphetamines Screen Negative U Benzodiazepines Scrn Negative Urine Cocaine Screen Negative Ur THC Screen Negative Ethyl Alcohol 09/03/18 23:40 WBC RBC Hgb Hct MCV MCH MCHC RDW Plt Count MPV Immature Gran % Neutrophils % Band Neutrophils % Lymphocytes % Atypical Lymphs % Monocytes % Eosinophils % Basophils % Metamyelocytes % Absolute Neutrophils Absolute Lymphocytes Absolute Monocytes Absolute Eosinophils Absolute Basophils Differential Comment RBC Morphology Xanthochromia Cancelled ESR PT INR APTT Sodium Potassium Chloride Carbon Dioxide Anion Gap BUN Creatinine Estimated GFR/1.73 m2 Glucose Calcium Total Bilirubin AST ALT Alkaline Phosphatase Total Protein Albumin CSF Tube Number Cancelled CSF Color Cancelled CSF Clarity Cancelled CSF WBC Cancelled CSF RBC Cancelled CSF Neutrophils Cancelled CSF Lymphocytes Cancelled CSF Monos/Macrophages Cancelled CSF Other Cells Cancelled CSF Diff Comment Cancelled CSF Glucose CSF Total Protein Urine Opiates Screen Urine Methadone Screen Ur Barbiturates Screen Ur Tricyclics Screen Ur Amphetamines Screen U Benzodiazepines Scrn Urine Cocaine Screen Ur THC Screen Ethyl Alcohol Last Vital Signs Temp 37.3 C 09/04/18 05:27 Pulse 93 H 09/04/18 04:01 Resp 21 09/04/18 03:55 BP 116/76 09/04/18 04:01 Pulse Ox 95 09/04/18 04:01
[2018-09-04] MEDS: Methadone 10 MG TAB 120 MG PO (08:57)
[2018-09-04] MEDS: Docusate Sodium 100 MG CAP PO (08:57)
[2018-09-04 09:11] LABS: C-Reactive Protein 7.39 mg/dL (0.0-0.3)
[2018-09-04] MEDS: Topiramate 25 MG TAB PO (09:59)
[2018-09-04 10:02] LABS: ESR 21 MM/HR (0-20)
--- NOTE | 2018-09-04 10:39 | DI.RAD_ITS ---
SYMPTOMS/DIAGNOSIS: FEVERS PA AND LATERAL CHEST: Comparison is made with [id number]. Rods are again noted in the thoracic spine. The heart size is normal. There is no mediastinal widening. The lungs appear clear. IMPRESSION: No acute abnormality.
[2018-09-04] MEDS: Sucralfate 1 GM TAB PO ×2 (11:35→16:49)
--- NOTE | 2018-09-04 11:54 | PDOC.CMIN ---
- If Service Date Differs Date of service: 09/04/18 Time of Service: 11:54 Care Management Initial Assess REASON FOR HOSPITALIZATION:: Headache r/o pseudo tumor history of aneurysum coiling in 2014 PAST MEDICAL HISTORY/PAST SURGICAL HISTORY:: Nephrolithiasis (Chronic). Scoliosis (Chronic). PTSD (post-traumatic stress disorder) (Chronic). History of intravenous drug abuse (Chronic). Depression (Chronic). Asthma (Chronic). Migraine headache with aura (Chronic ~2000). Hepatitis C infection (Chronic). Chronic daily headache (Chronic). Opioid dependence in controlled environment (Chronic). Blood bacterial culture positive (Resolved). Community acquired bacterial pneumonia (Resolved). S/P tubal ligation (Resolved). Therapeutic opioid induced constipation (Resolved). Surgical History. History of . History of cerebral aneurysm repair. S/P cystoscopy with ureteral stent placement. Status post thoracic spinal fusion PREVIOUS FUNCTIONAL STATUS/SOCIAL/FAMILY SUPPORTS:: Ghada lives with a friend in [place], [place]. She has 3 young children that live with her Mom in [place], [place]. 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 She is also receiving services through the [employer] program to return to work. CURRENT FUNCTIONAL STATUS:: Ghada is sitting up in the bed she falls asleep several times during assessment. She is states she is tired and has been able to sleep well. She request contact number for her Chronic Aids Social Worker in the community which is able to provide. She reports good supports through [facility] and [facility]. She states that she is working with manager community outreach for housing. She states that she does not have a good relationship with her Mom or other family members. ADVANCE DIRECTIVES:: None on file Has patient been provided with information about the portal?: Yes Did the patient sign up for the portal?: No CODE STATUS:: Full Code INSURANCE COVERAGE / FINANCIAL ISSUES:: Medicaid [facility]RENT [facility] PRIMARY CARE PHYSICIAN:: RICCO Murray POTENTIAL DISCHARGE NEEDS:: Follow up with neurology and primary care as directed. She will resume services through [facility], and [facility]. PATIENT/FAMILY EDUCATION NEEDS:: Discharge education, limitations and follow up plan of care and ask me three. ANTICIPATED BARRIERS TO DISCHARGE:: None identified. TRANSPORTATION:: Via RCT at time of discharge. PLAN:: Ghada is awaiting to be cleared for a MRI she remains in the ICU as medical surgical patient. She is receiving IV fluids, and her outpatient treatment of methadone. She will be discharged home when she is medically cleared. CM provided information to contact her chronic care nurse. CM will continue to provide support discharge planning.
--- NOTE | 2018-09-04 12:02 | NUR.NOTE ---
MRI form reviewed w/pt and faxed to Radiology. Nursing Note:
--- NOTE | 2018-09-04 12:29 | INITIAL_ITS ---
- If Service Date Differs Date of service: 09/04/18 Time of Service: 11:54 Care Management Initial Assess REASON FOR HOSPITALIZATION:: Headache r/o pseudo tumor history of aneurysum coiling in 2014 PAST MEDICAL HISTORY/PAST SURGICAL HISTORY:: Nephrolithiasis (Chronic). Scoliosis (Chronic). PTSD (post-traumatic stress disorder) (Chronic). History of intravenous drug abuse (Chronic). Depression (Chronic). Asthma (Chronic). Migraine headache with aura (Chronic ~2000). Hepatitis C infection (Chronic). Chronic daily headache (Chronic). Opioid dependence in controlled environment (Chronic). Blood bacterial culture positive (Resolved). Community acquired bacterial pneumonia (Resolved). S/P tubal ligation (Resolved). Therapeutic opioid induced constipation (Resolved). Surgical History. History of C- section. History of cerebral aneurysm repair. S/P cystoscopy with ureteral stent placement. Status post thoracic spinal fusion PREVIOUS FUNCTIONAL STATUS/SOCIAL/FAMILY SUPPORTS:: Ghada lives with a friend in [place], [place]. She has 3 young children that live with her Mom in [place], [place]. 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 She is also receiving services through the [employer] program to return to work. CURRENT FUNCTIONAL STATUS:: Ghada is sitting up in the bed she falls asleep several times during assessment. She is states she is tired and has been able to sleep well. She request contact number for her Chronic Cost And Sales Record Supervisor in the community which is able to provide. She reports good supports through [facility] and [facility]. She states that she is working with community development technician for housing. She states that she does not have a good relationship with her Mom or other family members. ADVANCE DIRECTIVES:: None on file Has patient been provided with information about the portal?: Yes Did the patient sign up for the portal?: No CODE STATUS:: Full Code INSURANCE COVERAGE / FINANCIAL ISSUES:: Medicaid CURRENT [facility]UN[facility] PRIMARY CARE PHYSICIAN:: RICCO Murray POTENTIAL DISCHARGE NEEDS:: Follow up with neurology and primary care as directed. She will resume services through [facility], and [facility]. PATIENT/FAMILY EDUCATION NEEDS:: Discharge education, limitations and follow up plan of care and ask me three. ANTICIPATED BARRIERS TO DISCHARGE:: None identified. TRANSPORTATION:: Via RCT at time of discharge. PLAN:: Ghada is awaiting to be cleared for a MRI she remains in the ICU as medical surgical patient. She is receiving IV fluids, and her outpatient treatment of methadone. She will be discharged home when she is medically cleared. CM provided information to contact her chronic care nurse. CM will continue to provide support discharge planning.
--- NOTE | 2018-09-04 13:14 | PHARADMIT ---
Admission Pharmacy Clinical Review headache, r/o psuedtumor cerebri Code Status Full Code Current Weight 108.1 kg Renally Cleared and Narrow Therapeutic Index Meds Crcl ~ 95 mL/min using adjusted body weight current meds okay QTc Value / Action Taken QTc 443 BP Control, Fever BP 116/67 Tmax 38.4 Electrolytes reviewed within normal limits DVT Prophylaxis none Opiate Usage / Scheduled Bowel Regimen Ordered yovani/ yovani and prn Plt/SCr for Heparin / Enoxaparin plt 237 SCr 1.02 INR for Warfarin n/a H/H stable, WBC/Bands h/h 12.4/37.8 wbc 4.48 Antibiotic appropriateness n/a Cultures and Sensitivities CSF, blood and urine cultures pending Surgical ABX d/c within 24 hr n/a DM control / Insulin Dosing BG 74 none Heart Failure (Check EF%) (OVI's, B-Block, Diuretics) none IV to PO Switch n/a Home Meds Reviewed multiple LIFE MANAGEMENT TEACHER depressants- methadone, promethazine, Home Meds Not Ordered captiva Comments pt waiting to be cleared to have MRI
[2018-09-04 13:35] LABS: Bilirubin Negative (Negative); Blood Negative (Negative); Clarity Clear; Glucose Negative (Negative); Ketones Negative (Negative); Leukocyte Esterase Negative (Negative); Nitrite Negative (Negative); Specific Gravity 1.015 (1.005-1.025); Urobilinogen 0.2 EU/dL (Up TO 0.2); pH 7.5 (5-8)
[2018-09-04] MEDS: LORazepam 2 MG/ML VIAL 1 MG IVP (15:41)
--- NOTE | 2018-09-04 15:55 | DI.MRI_ITS ---
SYMPTOM/DIAGNOSIS: HEADACHE, FEVER, H/O CEREBRAL ANEURYSM MRA REDDING OF [place]: MR angiography of the [place] region was performed according to the usual protocol. The examination is of limited technical quality due to motion, however the internal carotid, middle cerebral, anterior cerebral and posterior cerebral arteries appear grossly unremarkable with no significant aneurysm or occlusion. Visualized vertebral and basilar artery appear intact. CONCLUSION: Limited study. No gross abnormality is seen. BRAIN MRI: MR examination of the brain was performed according to the usual protocol including post contrast coronal and axial T 1 weighted imaging. There is grossly normal flow void in the [place] vasculature. The orbital and temporal bone structures appear intact as does the pituitary. No significant signal abnormality identified on susceptibility weighted imaging to suggest the presence of intracranial hemorrhage. Diffusion weighted imaging shows areas of restricted diffusion in high right frontal and partial lobes, small right occipital foci of abnormal diffusion also noted with probable corresponding ADC map decreased signal. The findings are suggestive of multiple small foci of infarction consistent with embolic disease in the right hemisphere. Mildly abnormal signal seen on FLAIR and T 2 weighted images in the high right frontal region which does not necessarily correspond to any of the aforementioned foci of infarction but which could represent an old infarct or area of ischemia. Prior aneurysm clipping noted. Post contrast imaging shows no evidence of an intracranial mass lesion or enhancing lesion. CONCLUSION: Findings suggesting multiple small cortical infarcts in the right hemisphere which could represent embolic phenomenon. Possible area of ischemia in high right frontal lobe noted as well.
[2018-09-04] MEDS: Gadoterate meglumine 20 ML VIAL IVP (16:38)
--- NOTE | 2018-09-04 17:00 | DI.VRAD_ITS ---
Addendum created by Emily Vasquez MD on 09/04/2018 5:19:42 PM EDT THIS REPORT CONTAINS FINDINGS THAT MAY BE CRITICAL TO PATIENT CARE. The findings were verbally communicated via telephone conference with HESHAM MOODY at 5:19 PM EDT on 09/04/2018. The findings were acknowledged and understood. Initial report created on 09/04/2018 5:00:22 PM EDT EXAM: MR Head Without and With Contrast EXAM DATE/TIME: 09/04/2018 4:39 PM CLINICAL HISTORY: 27 years old, female; Signs and symptoms; Patient HX: Fever, headache TECHNIQUE: Imaging protocol: MR of the head without and with intravenous contrast. Contrast material: DOTAREM; Contrast volume: 20 ml; Contrast route: IV; COMPARISON: HEAD^MRA COW 09/04/2018 3:[address] from 09/03/2018 FINDINGS: Brain: The examination is degraded by patient motion. There is cavitary tissue loss/encephalomalacia noted in the right frontal lobe at the cerebral convexity best seen on axial images 16 through 20. Findings are consistent with remote ischemic change in the right MCA distribution, also seen on prior CT. The patient has had prior right supraclinoid ICA aneurysm coiling. There are also findings consistent with the recent, likely acute ischemic change in the right MCA distribution. There is restricted diffusion noted in the right parietal lobe best seen on series 4, images 65 through 67. There is also a focus of restricted diffusion noted in the posterior right frontal lobe best seen on image 64. Also seen is a small punctate focus of restricted diffusion in the right occipital lobe best seen on image 60. There is no definite corresponding flair, T2 abnormality suggesting recent/acute ischemic change. There is no significant susceptibility identified. No abnormal extra-axial collections are identified. There is no abnormal intracranial contrast enhancement identified. No significant parenchymal abnormality or restricted diffusion is identified within the left cerebral hemisphere, brainstem or posterior fossa. Ventricles: No significant ventricular enlargement. Bones/joints: Craniocervical junction is unremarkable Calvarium is unremarkable Soft tissues: Subcutaneous soft tissues are unremarkable Sinuses: No significant paranasal sinus opacification or fluid level Mastoid air cells: No significant mastoid opacification Orbits: Unremarkable. Sella: Sella, intrasellar structures are within normal limits. Other vasculature: Flow voids in the intracranial vessels are unremarkable on the sequences obtained. IMPRESSION: 1. Findings consistent with multiple small foci of recent/acute ischemic changes right cerebral hemisphere involving the right parietal lobe, posterior frontal lobe and right occipital lobe as described. Involvement of multiple vascular distributions suggests possible embolic disease. No significant mass effect, hemorrhage or shift. No abnormal intracranial contrast enhancement. 2. Remote ischemic changes right frontal lobe/right MCA distribution. 3. No acute findings left cerebral hemisphere, brainstem or posterior fossa Dictated and Authenticated by: Emily Vasquez MD. Ordering:SILVER Garner MD
--- NOTE | 2018-09-04 17:04 | DI.VRAD_ITS ---
EXAM: MR Angiogram Head Without and With Contrast, Arteries EXAM DATE/TIME: 09/04/2018 4:14 PM CLINICAL HISTORY: 27 years old, female; Signs and symptoms; Patient HX: Headache, fever TECHNIQUE: Imaging protocol: MR angiogram head without and with intravenous contrast. Exam focused on the arteries. 3D rendering: MIP reconstructed images were created and reviewed. COMPARISON: CT BRAIN NECK CTA 09/03/2018 9:46 PM FINDINGS: The examination is significantly degraded by patient motion limiting evaluation for subtle abnormality. There is susceptibility and signal dropout in association with the patient's prior supraclinoid right ICA aneurysm embolization. Flow is seen in both intracranial ICAs. A1 segments are present bilaterally and symmetric flow is seen distally in the anterior cerebral arteries. There is no high grade M1 segment stenosis. Flow is seen distally in the middle cerebral arteries. Vertebrobasilar junction is patent. PICA origins are not identified at this field of view. Anterior inferior cerebellar arteries and both superior circular arteries are identified. P1 segments are present bilaterally and relatively symmetric flow is seen distally in the industrial gas servicer. Evaluation for subtle abnormality is limited due to patient motion. No definite residual or recurrent aneurysm is identified. There is no high grade intracranial stenosis identified. IMPRESSION: Exam degraded by patient motion. Motion limits evaluation for subtle abnormality but no definite acute findings appreciated. Dictated and Authenticated by: Emily Vasquez MD. Ordering:SILVER Garner MD
[2018-09-04] MEDS: Aspirin 81 MG CHEW PO (20:22)
[2018-09-04] MEDS: PARoxetine 10 MG TAB PO (21:38)
[2018-09-05] VITALS (9 sets, daily range): BP systolic 97–135; BP diastolic 54–86; PULSE 66–89; RESP 8–18; TEMP 36.6–37; O2SAT 94–98
[2018-09-05] MEDS: Acetaminophen 500 MG TAB 1000 MG PO (04:49)
[2018-09-05] MEDS: Mylanta Suspension 30 ML CUP PO (04:50)
[2018-09-05] MEDS: Ibuprofen 800 MG TAB PO (07:03)
[2018-09-05] MEDS: Promethazine 25 MG TAB PO (07:04)
[2018-09-05 07:58] LABS: PTT Activated 28.3 sec (21.0-31.4)
[2018-09-05 08:32] LABS: Procalcitonin 35.3 ng/mL
--- NOTE | 2018-09-05 08:36 | W.NEUROCONSU ---
Date of service: 09/05/18 Time of Service: 08:36 Assessment and Plan (1) Stroke: Current visit: Yes Status: Chronic Qualifiers: CVA mechanism: unspecified Qualified Code(s): I63.9 - Cerebral infarction, unspecified (2) Status migrainosus: Current visit: Yes Status: Acute Ms. Ervin is a 27-year-old, right-handed woman with a past medical history of opiate dependence, unruptured cerebral aneurysm status post coiling, chronic pain, hepatitis C, and chronic daily migraine headaches complicated by medication overuse. She has 2 major issues at present. #1. Stroke, acute and previous. She has areas of acute ischemia in an embolic pattern in the right hemisphere as well as a history of previous stroke in 2017 under similar circumstances. This is complicated by fever and elevated inflammatory markers including ESR and CRP. This is certainly concerning for a vasculitis. She underwent a CTA head and neck which was complicated by coil artifact as well as an MRA head which is of poor quality study due to lack of dye and further reduced by motion artifact. Despite no obvious vascular findings on the studies, I do not think a vasculitis can be completely ruled out. Given her fevers, septic emboli remain in the differential, though she does not appear as ill as would be expected. Hypercoagulable state and other embolic etiologies remain in the differential. I recommend further work-up with TTE and likely transesophageal echocardiogram. DVTs of the left lower and upper extremities should also be performed. Continue cardiac monitoring. I recommend further laboratory work-up including ALFREDO, rheumatoid factor, LINDA, ANCA, complement panel, serum immunological panel, SPEP, cryoglobulins, Lyme and tick panel, HIV, TSH, and a hypercoagulable panel. I would also consider CT C/A/P if she continues to have fevers without a known source given recent/ongoing abdominal pain. The current plan is to transfer her to [facility]. As most of these are send out tests, we will hold these tests and defer to [facility]. She should continue aspirin 81 mg daily for stroke prevention at present. #2. Headache. She has known chronic daily migraine headaches complicated by medication overuse. She had a lumbar puncture done performed in the emergency room with an elevated closing pressure, however, I am not sure how reliable this is given her body habitus and the fact that this was recorded while she was under duress. Agree with ophthalmological evaluation as further work-up. I suspect that her increased headaches are due to her acute illness above, and I doubt she has IIH. She previously responded to tricyclic antidepressants and that may be worth starting at some point once she is medically stable. She has a questionable IIH diagnosis and I do not think it would be unreasonable to start Diamox or Topamax instead for ppx. She had previously been on Topamax 50 mg twice daily without any improvement in her headaches. She also has a history of renal stones. I would continue to manage headaches at present with current medications. Can consider switching Phenergan to Compazine with the addition of Benadryl which seemed to help in the emergency room. DISCLAIMER: This note was created using [employer] voice recognition software. History of Present Illness Chief Complaint: stroke Narrative: Handedness: right. HPI: Ms. Ervin is a 27-year-old woman with a past medical history of opiate dependence and previous IV drug abuse, sober x17 months, as well as depression, fibromyalgia, severe scoliosis status post Tejeda sonya and thoracic fusion in 2007, AV node ablation for SVT in 2014, PTSD, hepatitis C, and a history of a right paraclinoid/ICA non-ruptured aneurysm coiling with stent-assist in 2 stages in 2016. She has a long history of migraine headaches since age 10. Her headaches are generally right-sided and then progress to involve the entire head. She has a long history of medication overuse associated with her headaches including [id number] medications, Fioricet, Imitrex, and narcotic pain medications. She previously consulted with [facility] in 2014 but has otherwise not had any other neurological care for her headaches. Previous prophylactic medications include amitriptyline, Depakote, Topamax 50 mg twice daily, Lyrica, Savella, and occipital nerve blocks x1 in March 2015. Previous rescue medications include Zomig, Maxalt, Percocet, Fioricet, Imitrex, Excedrin, ibuprofen, Tylenol, Aleve, Excedrin, and hydroxyzine. She initially presented to the [facility] emergency room on 08/30/2018 with 2 days of right lower quadrant abdominal pain and mild fevers. The abdominal pain has improved but persists. She presented back to the ER on 09/03/2018 at which time she was admitted for increased headaches over the last 3 days with ongoing low-grade fevers. That morning she experienced brief bright flashing lights in her vision followed by increased headaches. She was also complaining of blurred vision. Today she expands on her history. She had been having increased headaches for the last several months. She takes a combination of Tylenol, ibuprofen, naproxen, and Excedrin on a daily basis. In addition, in the last 6 months, she has had mild left sided weakness and numbness. In the emergency room, she underwent a CT head which I was able to review and showed an old right frontal hypodensity in addition to artifact from her previous coiling. She has no known history of stroke. In review of her previous records. She presented to [facility] in January 2017 with a similar presentation of increased headaches for several months along with more recent fevers. She had a CT head on 02/13/2017 which was unremarkable. She had a repeat CT head on 02/16/2017 which clearly shows a new right frontal hypodensity that was not noted on the report. She was admitted at that time for headache control and treated with doxepin and hydroxyzine with modest improvement. She had 1 out of 2 blood cultures positive at that time with staph saprophyticus. This was thought to be contaminant. She had an LP that was unremarkable at that time. Further work-up in the emergency room included a lumbar puncture with 2 white blood cells, 1 red blood cell, 55 glucose, and protein 27. An opening pressure was not obtained due to patient discomfort. A closing pressure was obtained and was measured at 35. However, she does have an elevated BMI and was in significant distress at that time. She has not had an ophthalmologic exam as of yet. Laboratory work-up has been significant for an elevated ESR of 21 and a CRP of 7.39. Her serum white blood cell count has been normal. Blood cultures and urine cultures are pending along with CSF cultures. CSF gram stain was negative. Her procalcitonin was 35.3. UDS on admission was significant for methadone and opiates. She had negative cryoglobulins in March 2016. She underwent an MRI brain yesterday which I was able to review. It shows the old right frontal encephalomalacia but additionally shows areas of acute ischemia in the right occipital, parietal, and frontal lobes. An MRA of the head was limited by motion artifact but did not show any significant stenosis or aneurysmal formation. She had a CTA of her head and neck in the emergency room which was also unremarkable but complicated by artifact from her coiling. She is not on control as she had a tubal ligation in 2014. She has a family history of paternal aunt who from cerebral aneurysm in her 30s. She also has a family history of heart disease in her father. Consults Requesting physician: Pascual Barbour Review of Systems Review of Systems All systems reviewed & are unremarkable except as noted in HPI and below PFS Medical History Nephrolithiasis (Chronic) Scoliosis (Chronic) PTSD (post-traumatic stress disorder) (Chronic) History of intravenous drug abuse (Chronic) Depression (Chronic) Asthma (Chronic) Migraine headache with aura (Chronic ~2000) Hepatitis C infection (Chronic) Chronic daily headache (Chronic) Opioid dependence in controlled environment (Chronic) Blood bacterial culture positive (Resolved) Community acquired bacterial pneumonia (Resolved) S/P tubal ligation (Resolved) Therapeutic opioid induced constipation (Resolved) Surgical History History of (Resolved) History of cerebral aneurysm repair (Resolved ~2014) S/P cystoscopy with ureteral stent placement (Resolved) Status post thoracic spinal fusion (Resolved) Family History Paternal Aunt Cerebral aneurysm Social History Smoking/Tobacco Use Status: Current every day Tobacco Type: cigarettes Quit status: considering quitting Drug use: Socially Substance use type: former substance user, marijuana, crack/cocaine, heroin, opiates and IV drugs Details: former heroin and cocaine user, current enrolled in [facility] on methadone treatment program Household members: other Details: lives w/ cousin's ex- and her children Number of Children: 3 Do you feel safe at home: Yes Do you feel safe in your relationship?: Yes History History 2 Para 3 Hx # Term Pregnancies 2 Multiple births Hx # Pregnancies Ectopic pregnancies AB induced Hx Number of Living Children 3 AB spontaneous Visit Medication and Allergies Active Medications Generic Name Dose Route Start Last Admin Trade Name Freq PRN Reason Stop Dose Admin Acetaminophen 1,000 mg 09/04/18 04:00 09/05/18 04:49 Tylenol PO 1,000 mg Q6H SAMIR Administration Al Hydrox/Mg Hydrox/Simethicone 30 ml 09/04/18 02:48 09/05/18 04:50 Mylanta Liquid PO 30 ml Q2H PRN PRN Administration Albuterol Sulfate 1 puff 09/04/18 07:08 Ventolin Hfa IH Q6H PRN PRN Aspirin 81 mg 09/04/18 18:55 09/04/18 20:22 PO 81 mg DAILY SAMIR Administration Dimethicone/Zinc Oxide 0 gm 09/04/18 02:48 Sharon Protect Cream TP PRN PRN Docusate Sodium 100 mg 09/04/18 08:30 09/04/18 08:57 Colace PO 100 mg DAILY SAMIR Administration Sodium Chloride 1,000 mls @ 100 mls/hr 09/04/18 03:00 Saline 1000ml Bag IV INFUSION SAMIR IV Miscellaneous Supplies 1 each 09/03/18 21:15 IV DIRECTED SAMIR Ibuprofen 800 mg 09/04/18 09:08 09/05/18 07:03 Motrin PO 800 mg TID PRN PRN Administration Iohexol 100 ml 09/03/18 22:00 09/03/18 21:57 Omnipaque 350 IJ 10/03/18 23:59 100 ml DIRECTED SAMIR Administration Magnesium Hydroxide 30 ml 09/04/18 02:48 Milk Of Magnesia PO DAILY PRN PRN Methadone HCl 120 mg 09/04/18 08:30 09/04/18 08:57 Dolophine PO 120 mg DAILY SAMIR Administration Nicotine 30 cartridge 09/04/18 19:53 09/04/18 20:37 Nicotrol 30 Cartridges/Pack IH 1 applic Q2H PRN PRN Administration Omeprazole 40 mg 09/04/18 22:00 09/04/18 21:38 Prilosec PO 40 mg HS SAMIR Administration Paroxetine HCl 10 mg 09/04/18 22:00 09/04/18 21:38 Paxil PO 10 mg HS SAMIR Administration Polyethylene Glycol 17 gm 09/04/18 02:48 Miralax PO DAILY PRN PRN Constipation Promethazine HCl 25 mg 09/04/18 13:16 05/15/19 07:04 Phenergan PO 25 mg Q6H PRN PRN Administration nausea and vomiting Sodium Chloride 0 ml 09/03/18 21:12 09/04/18 15:41 Saline Flush 10 Ml Syringe IVP 10 ml PRN PRN Administration Allergies meperidine HCl [From Demerol] Allergy (Severe, Unverified 09/03/18 21:17) Anaphylaxsis venom-honey bee [bee venom (honey bee)] Allergy (Severe, Unverified 09/03/18 21:17) anaphylaxis lithium Adverse Reaction (Mild, Unverified 09/03/18 21:17) NAUSEA sertraline HCl [From Zoloft] Adverse Reaction (Mild, Unverified 09/03/18 21:17) NIGHTMARES Exam Narrative Exam Narrative: Physical Exam: Gen: Patient of apparent stated age, NAD, mild distress, BMI 43 Head and face: no facial or cranial abnormalities Neck: Supple, no meningismus, no occipital tenderness CV: + S1, S2, RRR, no murmur Resp: CTA B/L, +BS Abd: soft, nontender, nondistended Ext: No edema. No clubbing or cyanosis. No bony deformity. Neuro Exam: Language: fluency, naming, repetition, and comprehension intact; Mental Status: AAOx3, current events intact, fund of knowledge intact; Speech: no dysarthria Cranial nerves: Funduscopy: not performed CN II: visual ching intact though noted blurriness in right eye CN III, IV, : extraocular movements intact, no nystagmus, pupils symmetric and reactive to light CN V: face sensation intact to LT with decreased PP in left V1-V3; vibration split across the forehead; CN VII: no facial asymmetry noted CN VIII: hearing intact bilaterally CN IX, X: palate rises symmetrically CN XI: trapezius/SCM 5/5 bilaterally CN XII: protrudes tongue symmetrically Sensory: intact to LT in all extremities; reduced to PP and vibration in left hemibody; absent joint position throughout (gave opposite answers exactly every time) Motor: bulk and tone intact. Fine motor movements reduced on the left. No pronator drift. Strength 5/5 throughout on the right. Left hemibody testing complicated by give way weakness. Full strength distally in the left foot. Reflexes: 2+ at the biceps, triceps, brachioradialis, patella, and achilles tendons bilaterally; toes down going bilaterally; Coordination: FTN and HTS intact bilaterally Gait: deferred Results Last Vital Signs Temp 36.6 C 09/05/18 00:05 Pulse 66 09/05/18 02:01 Resp 18 09/05/18 02:01 BP 97/54 L 09/05/18 02:01 Pulse Ox 94 L 09/05/18 02:01 Labs : 09/03/18 21:20 09/03/18 21:20 Laboratory Results - last 24 hr 09/04/18 09/04/18 09/04/18 08:25 08:25 08:25 ESR 21 H PT INR APTT C-Reactive Protein 7.39 H Procalcitonin 35.3 Urine Color Urine Clarity Urine pH Ur Specific [place] Urine Protein Urine Ketones Urine Blood Urine Nitrite Urine Bilirubin Urine Urobilinogen Ur Leukocyte Esterase Urine Glucose 09/04/18 09/05/18 12:20 06:48 ESR PT 10.0 INR 1.0 APTT 28.3 C-Reactive Protein Procalcitonin Urine Color Yellow Urine Clarity Clear Urine pH 7.5 Ur Specific [place] 1.015 Urine Protein Negative Urine Ketones Negative Urine Blood Negative Urine Nitrite Negative Urine Bilirubin Negative Urine Urobilinogen 0.2 Ur Leukocyte Esterase Negative Urine Glucose Negative
--- NOTE | 2018-09-05 08:54 | NCONE_ITS ---
Date of service: 09/05/18 Time of Service: 08:36 Assessment and Plan (1) Stroke: Current visit: Yes Status: Chronic Qualifiers: CVA mechanism: unspecified Qualified Code(s): I63.9 - Cerebral infarction, unspecified (2) Status migrainosus: Current visit: Yes Status: Acute Ms. Ervin is a 27-year-old, right-handed woman with a past medical history of opiate dependence, unruptured cerebral aneurysm status post coiling, chronic pain, hepatitis C, and chronic daily migraine headaches complicated by medication overuse. She has 2 major issues at present. #1. Stroke, acute and previous. She has areas of acute ischemia in an embolic pattern in the right hemisphere as well as a history of previous stroke in 2017 under similar circumstances. This is complicated by fever and elevated inflammatory markers including ESR and CRP. This is certainly concerning for a vasculitis. She underwent a CTA head and neck which was complicated by coil artifact as well as an MRA head which is of poor quality study due to lack of dye and further reduced by motion artifact. Despite no obvious vascular findings on the studies, I do not think a vasculitis can be completely ruled out. Given her fevers, septic emboli remain in the differential, though she does not appear as ill as would be expected. Hypercoagulable state and other embolic etiologies remain in the differential. I recommend further work-up with TTE and likely transesophageal echocardiogram. DVTs of the left lower and upper extremities should also be performed. Continue cardiac monitoring. I recommend further laboratory work-up including ALFREDO, rheumatoid factor, LINDA, ANCA, complement panel, serum immunological panel, SPEP, cryoglobulins, Lyme and tick panel, HIV, TSH, and a hypercoagulable panel. I would also consider CT C/A/P if she continues to have fevers without a known source given recent/ongoing abdominal pain. The current plan is to transfer her to [facility]. As most of these are send out tests, we will hold these tests and defer to [facility]. She should continue aspirin 81 mg daily for stroke prevention at present. #2. Headache. She has known chronic daily migraine headaches complicated by medication overuse. She had a lumbar puncture done performed in the emergency room with an elevated closing pressure, however, I am not sure how reliable this is given her body habitus and the fact that this was recorded while she was under duress. Agree with ophthalmological evaluation as further work-up. I suspect that her increased headaches are due to her acute illness above, and I doubt she has IIH. She previously responded to tricyclic antidepressants and that may be worth starting at some point once she is medically stable. She has a questionable IIH diagnosis and I do not think it would be unreasonable to s tart Diamox or Topamax instead for ppx. She had previously been on Topamax 50 mg twice daily without any improvement in her headaches. She also has a history of renal stones. I would continue to manage headaches at present with current medications. Can consider switching Phenergan to Compazine with the addition of Benadryl which seemed to help in the emergency room. DISCLAIMER: This note was created using [employer] voice recognition software. History of Present Illness Chief Complaint: stroke Narrative: Handedness: right. HPI: Ms. Ervin is a 27-year-old woman with a past medical history of opiate dependence and previous IV drug abuse, sober x17 months, as well as depression, fibromyalgia, severe scoliosis status post Tejeda sonya and thoracic fusion in 2007, AV node ablation for SVT in 2014, PTSD, hepatitis C, and a history of a right paraclinoid/ICA non-ruptured aneurysm coiling with stent-assist in 2 stages in 2016. She has a long history of migraine headaches since age 10. Her headaches are generally right-sided and then progress to involve the entire head. She has a long history of medication overuse associated with her headaches including yxxm-lok-dhvtkky medications, Fioricet, Imitrex, and narcotic pain medications. She previously consulted with [facility] in 2014 but has otherwise not had any other neurological care for her headaches. Previous prophylactic medications include amitriptyline, Depakote, Topamax 50 mg twice daily, Lyrica, Savella, and occipital nerve blocks x1 in March 2015. Previous rescue medications include Zomig, Maxalt, Percocet, Fioricet, Imitrex, Excedrin, ibuprofen, Tylenol, Aleve, Excedrin, and hydroxyzine. She initially presented to the [facility] emergency room on 08/30/2018 with 2 days of right lower quadrant abdominal pain and mild fevers. The abdominal pain has improved but persists. She presented back to the ER on 09/03/2018 at which time she was admitted for increased headaches over the last 3 days with ongoing low- grade fevers. That morning she experienced brief bright flashing lights in her vision followed by increased headaches. She was also complaining of blurred vision. Today she expands on her history. She had been having increased headaches for the last several months. She takes a combination of Tylenol, ibuprofen, naproxen, and Excedrin on a daily basis. In addition, in the last 6 months, she has had mild left sided weakness and numbness. In the emergency room, she underwent a CT head which I was able to review and showed an old right frontal hypodensity in addition to artifact from her previous coiling. She has no known history of stroke. In review of her previous records. She presented to [facility] in January 2017 with a similar presentation of increased headaches for several months along with more recent fevers. She had a CT head on 02/13/2017 which was unremarkable. She had a repeat CT head on 02/16/2017 which clearly shows a new right frontal hypodensity that was not noted on the report. She was admitted at that time for headache control and treated with doxepin and hydroxyzine with modest improvement. She had 1 out of 2 blood cultures positive at that time with staph saprophyticus. This was thought to be contaminant. She had an LP that was unremarkable at that time. Further work-up in the emergency room included a lumbar puncture with 2 white blood cells, 1 red blood cell, 55 glucose, and protein 27. An opening pressure was not obtained due to patient discomfort. A closing pressure was obtained and was measured at 35. However, she does have an elevated BMI and was in significant distress at that time. She has not had an ophthalmologic exam as of yet. Laboratory work-up has been significant for an elevated ESR of 21 and a CRP of 7.39. Her serum white blood cell count has been normal. Blood cultures and urine cultures are pending along with CSF cultures. CSF gram stain was negative. Her procalcitonin was 35.3. UDS on admission was significant for methadone and opiates. She had negative cryoglobulins in March 2016. She underwent an MRI brain yesterday which I was able to review. It shows the old right frontal encephalomalacia but additionally shows areas of acute ischemia in the right occipital, parietal, and frontal lobes. An MRA of the head was limited by motion artifact but did not show any significant stenosis or aneurysmal formation. She had a CTA of her head and neck in the emergency room which was also unremarkable but complicated by artifact from her coiling. She is not on control as she had a tubal ligation in 2014. She has a family history of paternal aunt who from cerebral aneurysm in her 30s. She also has a family history of heart disease in her father. Consults Requesting physician: Pascual Barbour Review of Systems Review of Systems All systems reviewed & are unremarkable except as noted in HPI and below PFSH Medical History Nephrolithiasis (Chronic) Scoliosis (Chronic) PTSD (post-traumatic stress disorder) (Chronic) History of intravenous drug abuse (Chronic) Depression (Chronic) Asthma (Chronic) Migraine headache with aura (Chronic ~2000) Hepatitis C infection (Chronic) Chronic daily headache (Chronic) Opioid dependence in controlled environment (Chronic) Blood bacterial culture positive (Resolved) Community acquired bacterial pneumonia (Resolved) S/P tubal ligation (Resolved) Therapeutic opioid induced constipation (Resolved) Surgical History History of (Resolved) History of cerebral aneurysm repair (Resolved ~2014) S/P cystoscopy with ureteral stent placement (Resolved) Status post thoracic spinal fusion (Resolved) Family History Paternal Aunt Cerebral aneurysm Social History Smoking/Tobacco Use Status: Current every day Tobacco Type: cigarettes Quit status: considering quitting Drug use: Socially Substance use type: former substance user, marijuana, crack/cocaine, heroin, opiates and IV drugs Details: former heroin and cocaine user, current enrolled in [facility] on methadone treatment program Household members: other Details: lives w/ cousin's ex- and her children Number of Children: 3 Do you feel safe at home: Yes Do you feel safe in your relationship?: Yes History History 2 Para 3 Hx # Term Pregnancies 2 Multiple births Hx # Pregnancies Ectopic pregnancies AB induced Hx Number of Living Children 3 AB spontaneous Visit Medication and Allergies Active Medications Generic Name Dose Route Start Last Admin Trade Name Freq PRN Reason Stop Dose Admin Acetaminophen 1,000 mg 09/04/18 04:00 09/05/18 04:49 Tylenol PO 1,000 mg Q6H SAMIR Administration Al Hydrox/Mg Hydrox/Simethicone 30 ml 09/04/18 02:48 09/05/18 04:50 Mylanta Liquid PO 30 ml Q2H PRN PRN Administration Albuterol Sulfate 1 puff 09/04/18 07:08 Ventolin Hfa IH Q6H PRN PRN Aspirin 81 mg 09/04/18 18:55 09/04/18 20:22 PO 81 mg DAILY SAMIR Administration Dimethicone/Zinc Oxide 0 gm 09/04/18 02:48 Sharon Protect Cream TP PRN PRN Docusate Sodium 100 mg 09/04/18 08:30 09/04/18 08:57 Colace PO 100 mg DAILY SAMIR Administration Sodium Chloride 1,000 mls @ 100 mls/hr 09/04/18 03:00 Saline 1000ml Bag IV INFUSION COUNTS INCLUDE 234 BEDS AT THE [facility] IV Miscellaneous Supplies 1 each 09/03/18 21:15 IV DIRECTED SAMIR Ibuprofen 800 mg 09/04/18 09:08 09/05/18 07:03 Motrin PO 800 mg TID PRN PRN Administration Iohexol 100 ml 09/03/18 22:00 09/03/18 21:57 Omnipaque 350 IJ 10/03/18 23:59 100 ml DIRECTED SAMIR Administration Magnesium Hydroxide 30 ml 09/04/18 02:48 Milk Of Magnesia PO DAILY PRN PRN Methadone HCl 120 mg 09/04/18 08:30 09/04/18 08:57 Dolophine PO 120 mg DAILY SAMIR Administration Nicotine 30 cartridge 09/04/18 19:53 09/04/18 20:37 Nicotrol 30 Cartridges/Pack IH 1 applic Q2H PRN PRN Administration Omeprazole 40 mg 09/04/18 22:00 09/04/18 21:38 Prilosec PO 40 mg HS SAMIR Administration Paroxetine HCl 10 mg 09/04/18 22:00 09/04/18 21:38 Paxil PO 10 mg HS SAMIR Administration Polyethylene Glycol 17 gm 09/04/18 02:48 Miralax PO DAILY PRN PRN Constipation Promethazine HCl 25 mg 09/04/18 13:16 09/05/18 07:04 Phenergan PO 25 mg Q6H PRN PRN Administration nausea and vomiting Sodium Chloride 0 ml 09/03/18 21:12 09/04/18 15:41 Saline Flush 10 Ml Syringe IVP 10 ml PRN PRN Administration Allergies meperidine HCl [From Demerol] Allergy (Severe, Unverified 09/03/18 21:17) Anaphylaxsis venom-honey bee [bee venom (honey bee)] Allergy (Severe, Unverified 09/03/18 21:17) anaphylaxis lithium Adverse Reaction (Mild, Unverified 09/03/18 21:17) NAUSEA sertraline HCl [From Zoloft] Adverse Reaction (Mild, Unverified 09/03/18 21:17) NIGHTMARES Exam Narrative Exam Narrative: Physical Exam: Gen: Patient of apparent stated age, NAD, mild distress, BMI 43 Head and face: no facial or cranial abnormalities Neck: Supple, no meningismus, no occipital tenderness CV: + S1, S2, RRR, no murmur Resp: CTA B/L, +BS Abd: soft, nontender, nondistended Ext: No edema. No clubbing or cyanosis. No bony deformity. Neuro Exam: Language: fluency, naming, repetition, and comprehension intact; Mental Status: AAOx3, current events intact, fund of knowledge intact; Speech: no dysarthria Cranial nerves: Funduscopy: not performed CN II: visual ching intact though noted blurriness in right eye CN III, IV, : extraocular movements intact, no nystagmus, pupils symmetric and reactive to light CN V: face sensation intact to LT with decreased PP in left V1-V3; vibration split across the forehead; CN VII: no facial asymmetry noted CN VIII: hearing intact bilaterally CN IX, X: palate rises symmetrically CN XI: trapezius/SCM 5/5 bilaterally CN XII: protrudes tongue symmetrically Sensory: intact to LT in all extremities; reduced to PP and vibration in left hemibody; absent joint position throughout (gave opposite answers exactly every time) Motor: bulk and tone intact. Fine motor movements reduced on the left. No pronator drift. Strength 5/5 throughout on the right. Left hemibody testing complicated by give way weakness. Full strength distally in the left foot. Reflexes: 2+ at the biceps, triceps, brachioradialis, patella, and achilles tendons bilaterally; toes down going bilaterally; Coordination: FTN and HTS intact bilaterally Gait: deferred Results Last Vital Signs Temp 36.6 C 09/05/18 00:05 Pulse 66 09/05/18 02:01 Resp 18 09/05/18 02:01 BP 97/54 L 09/05/18 02:01 Pulse Ox 94 L 09/05/18 02:01 Labs : 09/03/18 21:20 09/03/18 21:20 Laboratory Results - last 24 hr 09/04/18 09/04/18 09/04/18 08:25 08:25 08:25 ESR 21 H PT INR APTT C-Reactive Protein 7.39 H Procalcitonin 35.3 Urine Color Urine Clarity Urine pH Ur Specific Lindon Urine Protein Urine Ketones Urine Blood Urine Nitrite Urine Bilirubin Urine Urobilinogen Ur Leukocyte Esterase Urine Glucose 09/04/18 09/05/18 12:20 06:48 ESR PT 10.0 INR 1.0 APTT 28.3 C-Reactive Protein Procalcitonin Urine Color Yellow Urine Clarity Clear Urine pH 7.5 Ur Specific [place]on 1.015 Urine Protein Negative Urine Ketones Negative Urine Blood Negative Urine Nitrite Negative Urine Bilirubin Negative Urine Urobilinogen 0.2 Ur Leukocyte Esterase Negative Urine Glucose Negative
--- NOTE | 2018-09-05 09:00 | MERGE_ITS ---
*[facility]* *[facility]* [address] [place] [address] Date of study: 09/05/2018 Transthoracic Echocardiography M-mode, complete 2D, complete spectral Doppler, and color Doppler *STUDY CONCLUSIONS* Summary: 1. Left ventricle: The cavity size was normal. The estimated ejection fraction was 65%. Diastolic parameters were normal. There was no evidence of elevated ventricular filling pressure by Doppler parameters. 2. Left atrium: The atrium was mildly dilated. 3. Right ventricle: The cavity size was normal. Wall thickness was normal. Systolic function was normal. 4. Atrial septum: No defect or patent foramen ovale was identified by color flow Doppler. Agitated saline was not technically adequate to assess atrial septum. 5. Pulmonary arteries: Pulmonary systolic pressure was in the range of 15mm Hg to 25mm Hg. 6. Inferior vena cava: The vessel was patent and normal in size. The respirophasic diameter changes were in the normal range (greater than or equal to 50%), consistent with normal central venous pressure. *PATIENT PRESENTATION* Height: 157.5cm ((62in) ) S/D Pressure: 97 / 54 Weight: 108kg ((237.5lb) ) BSA: 2.24m^2 Test start time: 09:10 AM. Test stop time: 10:10 AM. PERFORMING Unknown ORDERING Pascual Barbour REFERRING Pascual Barbour PERFORMING [facility] CONSULTING Greg Gresham FOOD BAGGING MACHINE OPERATOR RT Ghada (R)(CT), JACKIE *PROCEDURE DATA* Procedure information: The patient was identified by two identifiers. This study was interpreted by [facility]. Pertinent images and digital data are archived for permanent storage and are available for subsequent review. No prior study was available for comparison. Study status: Routine. Transthoracic echocardiography. M-mode, complete 2D, complete spectral Doppler, and color Doppler. A Transthoracic Echocardiogram was performed. Scanning was performed from the parasternal, apical, subcostal, and suprasternal notch acoustic windows. Images were obtained using an [id number] cardiac ultrasound machine. Image quality was adequate. Intravenous contrast (normal saline) was administered. A total amount of 30ml of saline was used. The saline was administered by anay HSU . Study completion: The patient tolerated the procedure well. History: PMH: Acute CVA r/o PFO. bubble study per [place]. *CARDIAC ANATOMY* Left ventricle: The cavity size was normal. The estimated ejection fraction was 65%. The tissue Doppler parameters were normal. Diastolic parameters were normal. There was no evidence of elevated ventricular filling pressure by Doppler parameters. Aortic valve: Trileaflet. Doppler: There was no stenosis. There was no regurgitation. VTI ratio of LVOT to aortic valve: 0.84. Valve area (VTI): 2.7cm^2. Indexed valve area (VTI): 1.2cm^2/m^2. Peak velocity ratio of LVOT to aortic valve: 0.79. Valve area (Vmax): 2.5cm^2. Indexed valve area (Vmax): 1.1cm^2/m^2. Mean velocity ratio of LVOT to aortic valve: 0.71. Valve area (Vmean): 2.2cm^2. Indexed valve area (Vmean): 1cm^2/m^2. Mean gradient (S): 5.4mm Hg. Peak gradient (S): 9.5mm Hg. Aorta: Aortic root: The aortic root was normal in size. Ascending aorta: The ascending aorta was normal in size. Mitral valve: Doppler: There was no evidence for stenosis. There was trivial regurgitation. Valve area by pressure half-time: 4.8cm^2. Indexed valve area by pressure half-time: 2.1cm^2/m^2. Peak gradient (D): 3.9mm Hg. Left atrium: The atrium was mildly dilated. Atrial septum: No defect or patent foramen ovale was identified. Right ventricle: The cavity size was normal. Wall thickness was normal. Systolic function was normal. Pulmonic valve: Doppler: There was no evidence for stenosis. There was no significant regurgitation. Peak gradient (S): 5.7mm Hg. Tricuspid valve: Doppler: There was mild regurgitation. Pulmonary artery: Poorly visualized. Pulmonary systolic pressure was in the range of 15mm Hg to 25mm Hg. Right atrium: The atrium was normal in size. Pericardium: There was no pericardial effusion. Systemic veins: Inferior vena cava: Well visualized. The vessel was patent and normal in size. The respirophasic diameter changes were in the normal range (greater than or equal to 50%), consistent with normal central venous pressure. Baseline ECG: Normal sinus rhythm. Measurements Left ventricle Value Reference LV ID, ED, PLAX 5.1 cm 3.5 - 6.0 LV ID, ES, PLAX 3.3 cm 2.1 - 4.0 LV PW thickness, ED, PLAX 0.9 cm LV end-diastolic volume, 1-p A2C 126 ml LV ejection fraction, 1-p A2C 61 % LV end-diastolic volume, 1-p A4C 144 ml LV ejection fraction, 1-p A4C 69 % LV e', lateral 0.142 m/sec LV E/e', lateral 7 LV e', medial 0.111 m/sec LV E/e', medial 9 LV e', average 0.127 m/sec LV E/e', average 8 Ventricular septum Value Reference IVS thickness, ED, PLAX 1.1 cm LVOT Value Reference LVOT ID, A-P 2.0 cm LVOT area 3.2 cm^2 LVOT peak velocity, S 1.22 m/sec LVOT mean velocity, S 0.78 m/sec LVOT VTI, S 27.8 cm LVOT peak gradient, S 6 mm Hg LVOT mean gradient, S 2.9 mm Hg Stroke volume (SV), LVOT DP 89 ml Stroke index (SV/bsa), LVOT DP 40 ml/m^2 Aortic valve Value Reference Aortic valve peak velocity, S 1.5 m/sec Aortic valve mean velocity, S 1.11 m/sec Aortic valve VTI, S 33.0 cm Aortic mean gradient, S 5.4 mm Hg Aortic peak gradient, S 9.5 mm Hg VTI ratio, LVOT/AV 0.84 Aortic valve area, VTI 2.7 cm^2 Velocity ratio, peak, LVOT/AV 0.79 Aortic valve area, peak velocity 2.5 cm^2 Velocity ratio, mean, LVOT/AV 0.71 Aortic valve area, mean velocity 2.2 cm^2 Aortic valve area/bsa, mean velocity 1 cm^2/m^2 Aorta Value Reference Aortic root ID, ED 2.9 cm Ascending aorta ID, A-P, S 1.9 cm Left atrium Value Reference LA ID, A-P, ES 3.7 cm LA ID/bsa, A-P 1.7 cm/m^2 <=2.2 LA area, ES, A4C (H) 24.8 cm^2 8.8 - 23.4 LA area, ES, A2C 18 cm^2 LA volume/bsa, ES, 1-p A4C 43 ml/m^2 LA volume, ES, 2-p 77 ml LA volume/bsa, ES, 2-p 34 ml/m^2 LA/aortic root ratio 1.29 Mitral valve Value Reference Mitral E-wave peak velocity 0.99 m/sec Mitral A-wave peak velocity 0.68 m/sec Mitral deceleration time 158 ms 150 - 230 Mitral pressure half-time 46 ms Mitral peak gradient, D 3.9 mm Hg Mitral E/A ratio, peak 1.47 Mitral valve area, PHT, DP 4.8 cm^2 Pulmonary veins Value Reference Pulmonary vein peak velocity, S 0.5 m/sec Pulmonary vein peak velocity, D 0.47 m/sec Pulmonary vein velocity ratio, peak, 1.07 S/D Tricuspid valve Value Reference Tricuspid regurg peak velocity 2.2 m/sec Tricuspid peak RV-RA gradient 19.9 mm Hg Right atrium Value Reference RA area, ES, A4C 18.4 cm^2 8.3 - 19.5 Pulmonic valve Value Reference Pulmonic peak gradient, S 5.7 mm Hg Legend: (L) and (H) tim values outside specified reference range. I have personally reviewed the images and have reviewed and edited the reported findings. Electronically signed by Andres Azul MD 09/05/2018 13:16
[2018-09-05] MEDS: Methadone 10 MG TAB 120 MG PO (09:03)
[2018-09-05] MEDS: Docusate Sodium 100 MG CAP PO (09:03)
[2018-09-05] MEDS: Aspirin 81 MG CHEW PO (09:03)
[2018-09-05] MEDS: Normal Saline Flush 10 ML SYR IVP ×2 (09:50→10:50)
--- NOTE | 2018-09-05 11:47 | W.PM.DS.N ---
Date of service: 09/05/18 Time of Service: 11:48 DS: Diagnosis Discharge Diagnosis (1) Stroke: Status: Chronic (2) Status migrainosus: Status: Acute (3) Acute CVA (cerebrovascular accident): Status: Acute Discharge Plan Disposition Patient Disposition: [facility] Condition: Serious Discharge Details Reason For Visit: HEADACHE; R/O PSEUDOTUMOR CEREBRI Admit Date/Time: 09/04/18 02:46 Admit Provider: Mateusz Tucker Attending Provider: Mateusz Tucker Primary Care Provider: Greg Gresham Hospital Course Hospital Course: Chief Complaint: Headache, Fever HPI: 27 year old woman with a prior history of Cerebral Aneurysm s/p coiling in 2015, admitted from [facility] Emergency Department on 09/04 with complaints of headache and fever. Ms. Ervin has a Past Medical History of Opiate Dependence and IVDA in remission, reportedly sober for over one year. Her other history includes Obesity, Hepatitis C (untreated), depression, Fibromyalgia, and Scoliosis s/p Surgery intervention in 2007. She has undergone an AV Korina Ablation in 2014 for SVTs, and coiling of an intracranial aneurysm in 2015 at [facility]. Patient also has a lengthy history of migraines, which has in the past led to medication overuse. She presented to the ED with worsening headaches and complaints of low grade fevers, found to be mildly febrile but without a source. Her LP was essentially normal - an opening pressure was not obtained due to patient cooperation, but noted elevated closing pressures in obese woman with significant discomfort at the time. Work-up initially also included a negative CT of the head. She was referred for admission for further evaluation and treatment. The patient did not experience any more fevers following admission. Her CXR and Urinalysis were negative, and Blood Cultures remain with no growth X24 hours. Her labwork was unremarkable, with the exception of a CRP that was elevated in the 7's, ESR that was high at 21, and a Procalcitonin value grossly elevated at 35. 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 Of note, the MRI also showed evidence of an old infarct in the right frontal lobe - Of note, old films were reviewed by local neurology, Dr. Van Straten - noted to have a normal CT of the head on 02/13, with evidence of an infarct in the right frontal lobe on 02/16. Following the unexpected discover of acute ischemic changes in the brain, and given patient's age and history, case was discussed with Neurology at [facility] on 09/04, and she was accepted in transfer for [facility] evaluation [facility]. Prior to leaving [facility] Ms. Ervin also underwent further testing with an ECHO to rule out a PFO - results pending at time of admission. She had ultrasound ordered of the lower extremities, not performed as a bed became available at [facility]. At time of discharge she also has C ANCA/P ANCA, and Myeloperoxidase Ab pending. All of her imaging is being pushed electronically to [facility] as well. Home Meds and New Rx's Prescriptions: Continued methadone [Dolophine] 10 MG tablet 120 mg PO DAILY RF: 0 acetaminophen [Mapap Extra Strength] 500 MG tablet 1,000 mg PO Q6H 5 Days Qty: 60 RF: 0 paroxetine HCl [Paxil] 10 mg Tablet 10 mg PO HS RF: 0 albuterol sulfate 90 mcg/actuation Hfa Aerosol Inhaler 1 puff INHALATION Q6H PRNRF: 0 docusate sodium [Docusil] 100 mg capsule 100 mg PO DAILY Qty: 60 RF: 0 omeprazole 40 mg capsule,delayed release(DR/EC) 40 mg PO DAILY Qty: 30 RF: 0 [employer] 1 tab PO QID RF: 0 promethazine 25 mg tablet 25 mg PO Q6H PRN (Reason: nausea and vomiting) Qty: 10 RF: 0 Discharge Instructions Activity:: Ambulate with Assistance Diet:: As Tolerated Discharge Orders Discharge Orders: Discharge Order (Routine); Ordered 09/05/18 Ordered By: Pascual Barbour DS: Data Vitals/I&O Vitals and I&O: Vital Signs Temperature 36.6 C 09/05/18 00:05 Temperature Source Temporal Artery Scan 09/05/18 00:05 Pulse 70 09/05/18 10:10 Pulse Rhythm Regular 09/04/18 15:30 Pulse 73 09/05/18 10:10 Respiratory Rate 14 09/05/18 10:10 Respiratory Effort Non-Labored 09/04/18 15:30 Respiratory Depth Normal 09/04/18 15:30 Respiratory Pattern Normal 09/04/18 15:30 Blood Pressure 108/77 09/05/18 10:10 Blood Pressure Mean 85 09/05/18 10:10 Blood Pressure Position Sitting 09/04/18 03:55 Pulse Oximetry 97 09/05/18 08:20 Oxygen Delivery Method Room Air 09/05/18 00:05 Oxygen Flow Rate 0 09/05/18 00:05 Pain Level 10 09/05/18 07:04 Comment 09/05/18 00:05 Intake & Output 09/04/18 09/04/18 09/05/18 11:59 23:59 11:59 Intake Total 1075 / 1315 240 / 1315 960 / 960 Output Total 700 / 1150 450 / 1150 750 / 750 Balance 375 / 165 -210 / 165 210 / 210 Weight 108.1 kg 107.5 kg Intake: IV 1000 / 1000 Oral 75 / 315 240 / 315 960 / 960 Output: Urine 700 / 1150 450 / 1150 750 / 750 Other: Urine Color Light Darlene Yellow Yellow Urine Appearance Clear Clear Clear Urine Odor None None None Comment S/P tubal ligation Voiding Methods Bedside Commode Bedside Commode Bedside Commode Completed studies during hospitalization [Text1]: Exam(s) 09/03/[address]:CT head wo SYMPTOMS/DIAGNOSIS: SUDDEN ONSET HEADACHE NONCONTRAST HEAD CT: Comparison is made with . The exam is limited by motion artifact. There is artifact from metallic aneurysm clip seen in the right suprasellar region. No intracranial hemorrhage, mass or acute infarct is seen. There is a small area of decreased attenuation in the right frontal region which does not appear changed from the previous exam. The orbits, sinuses and mastoid air cells are grossly unremarkable. IMPRESSION: Limited exam due to motion. No acute abnormality is identified. --------- Exam(s) 09/03/[address]:CT brain & neck CTA SYMPTOMS/DIAGNOSIS: SUDDEN ONSET HEADACHE CTA OF THE HEAD AND NECK: CT angiography was performed with multi slice acquisition and multi planar and 3D reconstruction. The patient has an aneurysm clip in the right suprasellar region which creates artifact and limits evaluation of the adjacent vasculature. The visualized intracranial vessels show normal caliber. No occlusion or new aneurysm is identified. There is a small region of low attenuation peripherally in the right superior parietal region which appears unchanged from previous CT's. 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 No aneurysm, stenosis or occlusion is seen involving the visualized vessels. CTA OF THE NECK: There is no evidence of occlusion or significant stenosis or dissection in the common, internal or external carotid arteries. The vertebral arteries are unremarkable as well. Metallic rods are noted in the upper thoracic spine. The visualized portions of the lungs are unremarkable. The sinuses and mastoid air cells appear clear. IMPRESSION: Negative CT Angiography of the neck. Exam(s) 09/04 a RAD:XR chest 2V PA & lateral SYMPTOMS/DIAGNOSIS: FEVERS PA AND LATERAL CHEST: Comparison is made with [id number]. Rods are again noted in the thoracic spine. The heart size is normal. There is no mediastinal widening. The lungs appear clear. IMPRESSION: No acute abnormality. EXAM: MR Angiogram Head Without and With Contrast, Arteries EXAM DATE/TIME: 09/04/2018 4:14 PM CLINICAL HISTORY: 27 years old, female; Signs and symptoms; Patient HX: Headache, fever COMPARISON: CT BRAIN NECK CTA 09/03/2018 9:46 PM FINDINGS: The examination is significantly degraded by patient motion limiting evaluation for subtle abnormality. There is susceptibility and signal dropout in association with the patient's prior supraclinoid right ICA aneurysm embolization. Flow is seen in both intracranial ICAs. A1 segments are present bilaterally and symmetric flow is seen distally in the anterior cerebral arteries. There is no high grade M1 segment stenosis. Flow is seen distally in the middle cerebral arteries. Vertebrobasilar junction is patent. PICA origins are not identified at this field of view. Anterior inferior cerebellar arteries and both superior circular arteries are identified. P1 segments are present bilaterally and relatively symmetric flow is seen distally in the modeling teacher. Evaluation for subtle abnormality is limited due to patient motion. No definite residual or recurrent aneurysm is identified. There is no high grade intracranial stenosis identified. IMPRESSION: Exam degraded by patient motion. Motion limits evaluation for subtle abnormality but no definite acute findings appreciated. Exam(s) 09/04/2018 Addendum created by Emily Vasquez MD on 09/04/2018 5:19:42 PM EDT THIS REPORT CONTAINS FINDINGS THAT MAY BE CRITICAL TO PATIENT CARE. The findings were verbally communicated via telephone conference with PASCUAL BARBOUR at 5:19 PM EDT on 09/04/2018. The findings were acknowledged and understood. Initial report created on 09/04/2018 5:00:22 PM EDT EXAM: MR Head Without and With Contrast EXAM DATE/TIME: 09/04/2018 4:39 PM CLINICAL HISTORY: 27 years old, female; Signs and symptoms; Patient HX: Fever, headache TECHNIQUE: Imaging protocol: MR of the head without and with intravenous contrast. Contrast material: DOTAREM; Contrast volume: 20 ml; Contrast route: IV; COMPARISON: HEAD^MRA COW 09/04/2018 3:[address] from 09/03/2018 FINDINGS: Brain: The examination is degraded by patient motion. There is cavitary tissue loss/encephalomalacia noted in the right frontal lobe at the cerebral convexity best seen on axial images 16 through 20. Findings are consistent with remote ischemic change in the right MCA distribution, also seen on prior CT. The patient has had prior right supraclinoid ICA aneurysm coiling. There are also findings consistent with the recent, likely acute ischemic change in the right MCA distribution. There is restricted diffusion noted in the right parietal lobe best seen on series 4, images 65 through 67. There is also a focus of restricted diffusion noted in the posterior right frontal lobe best seen on image 64. Also seen is a small punctate focus of restricted diffusion in the right occipital lobe best seen on image 60. There is no definite corresponding flair, T2 abnormality suggesting recent/acute ischemic change. There is no significant susceptibility identified. No abnormal extra-axial collections are identified. There is no abnormal intracranial contrast enhancement identified. No significant parenchymal abnormality or restricted diffusion is identified within the left cerebral hemisphere, brainstem or posterior fossa. Ventricles: No significant ventricular enlargement. Bones/joints: Craniocervical junction is unremarkable Calvarium is unremarkable Soft tissues: Subcutaneous soft tissues are unremarkable Sinuses: No significant paranasal sinus opacification or fluid level Mastoid air cells: No significant mastoid opacification Orbits: Unremarkable. Sella: Sella, intrasellar structures are within normal limits. Other vasculature: Flow voids in the intracranial vessels are unremarkable on the sequences obtained. IMPRESSION: 1. Findings consistent with multiple small foci of recent/acute ischemic changes right cerebral hemisphere involving the right parietal lobe, posterior frontal lobe and right occipital lobe as described. Involvement of multiple vascular distributions suggests possible embolic disease. No significant mass effect, hemorrhage or shift. No abnormal intracranial contrast enhancement. 2. Remote ischemic changes right frontal lobe/right MCA distribution. 3. No acute findings left cerebral hemisphere, brainstem or posterior fossa Pending studies at discharge: Blood Culture ( Age => 9 Yrs) Preliminary 09/05/18-1057 NO GROWTH 24 HOURS Fluid Culture Preliminary (CSF) 09/05/18-0859 Day 1 Result NO GROWTH 24 HOURS Day 2 Result NO GROWTH 48 HOURS Gram Stain Final 09/04/18-0024 GRAM STAIN Gram Stain performed on Cytospin concentrated smear Rare White Blood Cells No Bacteria Seen ESR - 21 CRP - 7.39 (Prior 0.83 10/31/2017) Procalcitonin - 35.3 ng/ml Urinalysis negative Labs on day of discharge: Labs from last 24 hours 09/05/18 09/04/18 09/04/18 06:48 19:50 12:20 PT 10.0 INR 1.0 APTT 28.3 Procalcitonin Urine Color Yellow Urine Clarity Clear Urine pH 7.5 Ur Specific Mitchell 1.015 Urine Protein Negative Urine Ketones Negative Urine Blood Negative Urine Nitrite Negative Urine Bilirubin Negative Urine Urobilinogen 0.2 Ur Leukocyte Esterase Negative Urine Glucose Negative Proteinase 3 (PR3) Pending Myeloperoxidase Ab Pending 09/04/18 08:25 PT INR APTT Procalcitonin 35.3 Urine Color Urine Clarity Urine pH Ur Specific Mitchell Urine Protein Urine Ketones Urine Blood Urine Nitrite Urine Bilirubin Urine Urobilinogen Ur Leukocyte Esterase Urine Glucose Proteinase 3 (PR3) Myeloperoxidase Ab 09/04/18 12:20 Urine - Voided Urine Culture - Pending Preliminary micro results at discharge 09/04/18 08:55 Blood Culture - Preliminary Blood NO GROWTH 24 HOURS 09/04/18 08:40 Blood Culture - Preliminary Blood NO GROWTH 24 HOURS 09/04/18 08:25 Blood Culture - Preliminary Blood NO GROWTH 24 HOURS 09/03/18 23:30 Body Fluid Culture - Preliminary Cerebrospinal Fluid 09/04/18 12:20 Urine Culture - Pending Urine - Voided [facility] Medical History Nephrolithiasis (Chronic) Scoliosis (Chronic) PTSD (post-traumatic stress disorder) (Chronic) History of intravenous drug abuse (Chronic) Depression (Chronic) Asthma (Chronic) Migraine headache with aura (Chronic ~2000) Hepatitis C infection (Chronic) Chronic daily headache (Chronic) Opioid dependence in controlled environment (Chronic) Blood bacterial culture positive (Resolved) Community acquired bacterial pneumonia (Resolved) S/P tubal ligation (Resolved) Therapeutic opioid induced constipation (Resolved) Surgical History History of (Resolved) History of cerebral aneurysm repair (Resolved ~2014) S/P cystoscopy with ureteral stent placement (Resolved) Status post thoracic spinal fusion (Resolved) Family History Paternal Aunt Cerebral aneurysm Social History Smoking/Tobacco Use Status: Current every day Tobacco Type: cigarettes Quit status: considering quitting Drug use: Socially Substance use type: former substance user, marijuana, crack/cocaine, heroin, opiates and IV drugs Details: former heroin and cocaine user, current enrolled in [facility] on methadone treatment program Household members: other Details: lives w/ cousin's ex- and her children Number of Children: 3 Do you feel safe at home: Yes Do you feel safe in your relationship?: Yes History History 2 Para 3 Hx # Term Pregnancies 2 Multiple births Hx # Pregnancies Ectopic pregnancies AB induced Hx Number of Living Children 3 AB spontaneous
--- NOTE | 2018-09-05 14:09 | CHAPLAIN ---
Ghada has just received Reiki before I arrived, and so she was sleeping. I left a prayer shawl for as she was being transferred to [facility] within the hour.
--- NOTE | 2018-09-05 16:40 | PDOC.CMPRO ---
- If Service Date Differs Date of service: 09/05/18 Time of Service: 16:40 Care Management Progress Note S/O: Ghada was transferred to [facility] neurology today r/t MRI imaging and needing further work up. Ghada is aware of the transfer and will be transported via ambulance coordinated by [facility]. A: Ghada is a 27 year old female admitted with headache, and found to have had an acute CVA during imaging. Ghada will be transferred to tertiary care. P: Transfer to [facility]. CM contacted chronic health care facilities inspector through [facility] and provide update related to transfer. CM provided contact number to Pt and she will also follow up with [facility] when discharged from [facility].
--- NOTE | 2018-09-05 16:44 | CMPROGNOTE_ITS ---
- If Service Date Differs Date of service: 09/05/18 Time of Service: 16:40 Care Management Progress Note S/O: Ghada was transferred to [facility] neurology today r/t MRI imaging and needing further work up. Ghada is aware of the transfer and will be transported via ambulance coordinated by Claims Collector. A: Ghada is a 27 year old female admitted with headache, and found to have had an acute CVA during imaging. Ghada will be transferred to tertiary care. P: Transfer to [facility]. CM contacted chronic hospice care sales consultant through [facility] and provide update related to transfer. CM provided contact number to Pt and she will also follow up with [facility] when discharged from [facility].
[2018-09-06 11:59] LABS: Myeloperoxidase Ab IgG <0.2 U; Proteinase 3 Ab (PR3) <0.2 U
== END 2018-09-05 12:35 | disposition short-term general hospital (02) | DRG 65 ==
LOC: ER 09-04 03:07 → ICU 09-04 08:44 → MS 09-13 16:18
PROVIDERS: Physician Assistant; Admitting Provider Internal Medicine; Emergency Provider Physician Assistant; PCP Specialist/Technologist Athletic Trainer; Visit Provider Internal Medicine
DX: I63.9 Cerebral infarction, unspecified (principal); F11.20 Opioid dependence, uncomplicated; G43.001 Migraine without aura, not intractable, with status migrainosus; R50.9 Fever, unspecified; E66.9 Obesity, unspecified; B19.20 Unspecified viral hepatitis C without hepatic coma; R10.13 Epigastric pain; Z87.442 Personal history of urinary calculi; F19.11 Other psychoactive substance abuse, in remission
CPT/HCPCS: 36415; 70496; 70498; 70544; 70553; 80053; 80307; 82945; 84145; 85652; 87040; 89050; 89051; 96361; 96374; 96375; 99220; 99239; 99255; 99285; 70450; 71046; 80320; 81003; 83516; 84157; 85025; 85610; 85730; 86140; 87070; 87086; 87205; 93306; 99284; G0378; J0780; J1100; J1200; J2060; J2270; J2405; J3490

== ENCOUNTER 2018-10-17 15:02 | Emergency (ER) | payer MEDICAID, SELFPAY ==
[2018-10-17] VITALS (30 sets, daily range): BP systolic 108–135; BP diastolic 48–78; PULSE 55–72; RESP 10–20; TEMP 36.5–36.6; O2SAT 86–100
[2018-10-17 15:52] LABS: Abs Immature Grans 0.01 k/cumm (0.0-0.09); Absolute Basophil Count 0.01 k/cumm (0.0-0.2); Absolute Eosinophil Count 0.19 k/cumm (0.0-0.7); Absolute Lymphocyte Count 2.63 k/cumm (1.2-3.4); Absolute Monocyte Count 0.53 k/cumm (0.11-0.7); Absolute Neutrophil Count 3.42 k/cumm (1.2-6.7); Basophils % 0.1; Eosinophils % 2.8; HCT 35.2 % (36.0-46.0); HGB 11.3 g/dL (12.0-15.5); Immature Grans % 0.1; Lymphocytes % 38.7; Mean Corp. HGB Concentration 32.1 g/dL (32.0-36.0); Mean Corpuscular Hemoglobin 30.6 pg (27.0-33.0); Mean Corpuscular Volume 95.4 fL (80-95); Mean Platelet Volume 10.3 fL (8.0-11.0); Monocytes % 7.8; Neutrophils % 50.5; Platelet Count 277 x1000/uL (130-400); RBC 3.69 m/cumm (4.00-5.20); RBC Distribution Width 13.3 % (11.7-14.6); White Blood Cell Count 6.79 k/cumm (4.4-10.8)
--- NOTE | 2018-10-17 16:14 | DI.CT_ITS ---
SYMPTOM/DIAGNOSIS: HEADACHE, RT HAND TINGLING, R/O THROMBOSIS CRANIAL CT: 10/[address] was performed. Note is made of an aneurysm slip in the suprasellar region on the right. No intracranial hemorrhage, mass effect or midline shift. Ventricular system is normal in appearance. Paranasal sinuses and mastoid air cells are clear as visualized. Orbital and temporal bone structures appear intact. CONCLUSION: No evidence of acute intracranial process. CT ANGIOGRAPHY CERVICAL CRANIAL REGION: 10/17/18 CT angiography was performed with multi slice acquisition and multi planar and 3D reconstruction. CT angiography of the cervical cranial region was performed with intravenous infusion of 100 cc Omnipaque 350. Images obtained through the lung apices are unremarkable. Tracheolaryngeal structures appear intact. No cervical mass or adenopathy. Salivary glands appear intact. Right thyroid 17 mm heterogeneous lesion noted. Correlation with thyroid ultrasound recommended. Aortic arch and visualized pulmonary arterial circulation appears intact. Common internal and external carotid arteries are unremarkable in the cervical region. Vertebral arteries are normal in the cervical region. There is an aneurysm clip of the right suprasellar region which obscures detail in the region of the [place]. Visualized intracranial internal carotic arteries appear intact. Middle anterior and posterior cerebral arteries appear intact. Basilar and vertebral arteries appear intact. Major vascular branches are unremarkable. CONCLUSION: Negative CT angiography, cervical cranial region. Evaluation of the [place] region somewhat limited due to artifact from right suprasellar aneurysm clip. Incidental 17 mm right thyroid lobe lesion, correlation with thyroid ultrasound recommended.
--- NOTE | 2018-10-17 16:15 | DI.RAD_ITS ---
SYMPTOM/DIAGNOSIS: ; H/O CA, STROKE-LIKE LESIONS, ASSESS MEDIASTINUM PA AND LATERAL CHEST: 10/17 There are Tejeda rods in place in the thoracic spine. Heart is not enlarged. The lungs are clear. No pleural effusion. CONCLUSION: No evidence of acute disease.
--- NOTE | 2018-10-17 16:33 | ED.GENADUL_ITS ---
Discharge Plan Disposition Patient Disposition: HOME Condition: Improving Discharge Details Chief Complaint: CVA/TIA Clinical Impression: Headache, Paresthesia Primary Care Provider: Greg Gresham ED Provider: Perla Abbott Home Meds and New Rx's Prescriptions: Continued methadone [Dolophine] 10 MG tablet 120 mg PO DAILY RF: 0 acetaminophen [Mapap Extra Strength] 500 MG tablet 1,000 mg PO Q6H 5 Days Qty: 60 RF: 0 paroxetine HCl [Paxil] 10 mg Tablet 20 mg PO HS RF: 0 albuterol sulfate 90 mcg/actuation Hfa Aerosol Inhaler 1 puff INHALATION Q6H PRNRF: 0 docusate sodium [Docusil] 100 mg capsule 100 mg PO DAILY Qty: 60 RF: 0 tizanidine 4 mg Tablet 4 mg PO TID RF: 0 sumatriptan succinate [Imitrex] 100 mg Tablet 100 mg PO DIRECTED PRNRF: 0 ondansetron HCl 4 mg Tablet 4 mg PO TID PRNRF: 0 clopidogrel [Plavix] 75 mg Tablet 75 mg PO DAILY RF: 0 aspirin [Aspir-81] 81 mg Tablet,Delayed Release (Dr/Ec) 81 mg PO DAILY RF: 0 amitriptyline 25 mg Tablet 25 mg PO QHS RF: 0 ranitidine HCl 150 mg Tablet 150 mg PO BID RF: 0 hydroxyzine HCl 25 mg Tablet 25 mg PO TID RF: 0 Flovent HFA 220 mcg/actuation Hfa Aerosol Inhaler 1 puff INHALATION BID RF: 0 lisinopril 5 mg Tablet 5 mg PO DAILY RF: 0 gabapentin 100 mg Capsule 100 mg PO TID RF: 0 metoprolol succinate 25 mg Tablet Extended Release 24 Hr 50 mg PO DAILY RF: 0 naproxen 375 mg Tablet,Delayed Release (Dr/Ec) 375 mg PO TID PRNRF: 0 ferrous gluconate 324 mg (37.5 mg iron) Tablet 324 mg PO DAILY RF: 0 Discharge Instructions Instructions: General Headache (ED) Additional Instructions: Drink plenty of fluids and take all of your regular medications as directed. Neurology at [facility] will call you tomorrow to schedule a follow up appointment. An outpatient MRI/MRA of your brain has been ordered. You will be notified by radiology when this has been scheduled. Follow up with RCT for your scheduled appointment with gastroenterology at [facility] tomorrow morning. Return immediately to the emergency department if you develop any worsening or concerning symptoms. Discharge Data Discharge Date/Time-TO BE ENTERED AT DEPARTURE: 10/17/18 21:10 Discharge Physician: Perla Abbott Medical Decision Making 27yo F w/ h/o cerebral aneursym repair in 2014 and acute ischemic cva last month thought to be due to thrombosed aneurysm clip vs cardioembolic due to PFO who presents with difficulty with concentration for the past few days, worse today and now associated with increased fatigue, blurry vision, headache and R distal arm tingling from R elbow to hand since yesterday. Pt is hemodynamically stable. She appears very drowsy, she is on methadone, she is easily arousable and able to answer questions. She has 4/5 MS LUE/LLE which is her new baseline since cva last night. No other focal deficits on exam. She is texting on phone at times. Labs done on arrival and unremarkable. Will send for stat CT head due to history. Will f/u CT head and call neurology for recommendations. She has followed up with cards and no plans for surgical intervention of PFO. Will determine if she had angiogram to assess for thrombosis of aneursym clip. Will d/w care management if she is able to be discharged, for assistance with ride to tomorrow for neuro f/u appt. Pt had a CTV pelvis, CTV brain CTA neck last month at which were negative for venous thrombosis. 1719 --CT head negative. CTA head and neck done due to h/o aneurysm and negative. 1900 --discussed case and imaging w/ [facility] neurology - No indication for any other acute recommendations at this time. Discussed that this could be migrainous in nature, and agrees with plan for treatment of migraine at this time. Discussed that it is concerning with patient's history of PFO, that this could be cardioembolic in nature and would recommend continued follow-up with cardiology for further discussions of any surgical intervention. No indication for admission or transfer at this time and recommends that patient follow-up with her scheduled appointment with neurology tomorrow. 2019 --patient feels much better and is requesting to go home. Her glucose was 62 while in ED and she was given juice and food and she felt much better. She was texting on her phone and easily ambulatory around the ED and to the bathroom and appeared in no acute distress. No focal deficits noted. She denies any headache or complaint of paresthesias or weakness. It was determined that patient's appointment tomorrow is actually with gastroenterology and not neurology. Case again was discussed with [facility] neurology Dr. Wiggins -- they will call patient on her available cell number tomorrow to schedule her appointment. He does not see any indication for emergent or urgent transfer for MRI brain but does recommend one as an outpatient considering her history. An outpatient MRI/MRA brain was ordered and order form given to radiology. Patient states she is now currently going to be staying with a family member this evening and does have an address to give RCT for her appointment with gastroenterology tomorrow. Pt has a follow-up appointment with cardiology on October 30 at [facility]. Medical Records Medical records reviewed: Yes I reviewed the patient's medical records. Imaging Data Radiologic Study: Radiologist's impression: CT head w/o contrast EXAM DATE/TIME: 10/17/2018 4:15 PM CLINICAL HISTORY: 27 years old, female; Prior surgery; Surgery type: Aneurysm 2014; Patient HX: R hand tingling, h/o CVA; Additional info: R/O CVA TECHNIQUE: Imaging protocol: Axial computed tomography images of the head without contrast. Coronal and sagittal reformatted images were created and reviewed. COMPARISON: CT HEAD WO 09/03/2018 9:39 PM FINDINGS: Limitations: Artifact from an aneurysm coil within the anterior right suprasellar region results in artifact slightly limiting evaluation of the basilar portions of the brain. Brain: Small areas of encephalomalacia within the right frontal lobe are unchanged compared to the prior head CT. No intracranial hemorrhage or mass effect is identified. There are prominent perivascular spaces at the inferior edges of the basal ganglia, bilaterally, as demonstrated on prior MRI performed on 09/03/2018. No CT scan evidence of acute stroke. Ventricles: Unremarkable. No ventriculomegaly. Bones/joints: Unremarkable. No acute fracture. Sinuses: Visualized sinuses are unremarkable. No fluid levels. Mastoid air cells: Visualized mastoid air cells are well aerated. No mastoid effusion. Soft tissues: Unremarkable. IMPRESSION: 1. No acute abnormality. Note should be made that early acute stroke may not be visible on initial CT scan. 2. Mild artifact from aneurysm coil as described above. 3. Small areas of encephalomalacia within the right frontal lobe, unchanged. XR Chest, 2 Views EXAM DATE/TIME: 10/17/2018 4:39 PM CLINICAL HISTORY: 27 years old, female; Other: H/o CVA, stroke like symptoms, assess mediastinum; Additional info: R/O CVA TECHNIQUE: Imaging protocol: XR of the chest, 2 views. COMPARISON: CR XR CHEST 2V PA LATERAL 09/04/2018 10:26 AM FINDINGS: Lungs: Unremarkable. No consolidation. Pleural space: Unremarkable. No pleural effusion. No pneumothorax. Heart/Mediastinum: Unremarkable. No cardiomegaly. Bones/joints: Posterior sonya instrumentation from the upper thoracic spine to the lower thoracic spine is present. No hardware failure is identified. There is scoliosis of the thoracic spine, apex to the right, unchanged. IMPRESSION: No acute abnormality. Lab Data Lab results reviewed: Yes I reviewed the patient's lab results. Laboratory Tests Range/Units 10/17/18 10/17/18 10/17/18 15:12 15:12 16:24 WBC (4.4-10.8) k/cumm 6.79 RBC (4.00-5.20) m/cumm 3.69 L Hgb (12.0-15.5) g/dL 11.3 L Hct (36.0-46.0) % 35.2 L MCV (80-95) fL 95.4 H MCH (27.0-33.0) pg 30.6 MCHC (32.0-36.0) g/dL 32.1 RDW (11.7-14.6) % 13.3 Plt Count (130-400) x1000/uL 277 MPV (8.0-11.0) fL 10.3 Immature Gran % 0.1 Neutrophils % 50.5 Lymphocytes % 38.7 Monocytes % 7.8 Eosinophils % 2.8 Basophils % 0.1 Absolute Neutrophils (1.2-6.7) k/cumm 3.42 Absolute Lymphocytes (1.2-3.4) k/cumm 2.63 Absolute Monocytes (0.11-0.7) k/cumm 0.53 Absolute Eosinophils (0.0-0.7) k/cumm 0.19 Absolute Basophils (0.0-0.2) k/cumm 0.01 Sodium (136-145) mmol/L 143 Potassium (3.5-5.1) mmol/L 4.3 Chloride (98-107) mmol/L 105 Carbon Dioxide (21.0-32.0) mmol/L 28.8 Anion Gap (3-11) mmol/L 9.2 BUN (7-18) mg/dL 19 H Creatinine (0.55-1.02) mg/dL 0.76 Estimated GFR/1.73 m2 (mL/min/1.73m2) >= 60.00 Glucose (70-100) mg/dL 76 Calcium (8.5-10.1) mg/dL 8.3 L Magnesium (1.8-2.4) mg/dL 1.8 Total Bilirubin (0.2-1.0) mg/dL 0.2 AST (15-37) U/L 50 H ALT (12-78) U/L 76 Alkaline Phosphatase (46-116) U/L 131 H Troponin I (0.00-0.06) ng/mL < 0.05 Total Protein (6.4-8.2) g/dL 6.6 Albumin (3.4-5.0) g/dL 3.2 L Urine Color (Yellow) Yellow Urine Clarity (Clear) Clear Urine pH (5-8) 5.5 Ur Specific [place] (1.005-1.025) 1.020 Urine Protein (Negative) mg/dL Negative Urine Ketones (Negative) mg/dL Negative Urine Blood (Negative) Negative Urine Nitrite (Negative) Negative Urine Bilirubin (Negative) Negative Urine Urobilinogen (Up TO 0.2) EU/dL 0.2 Ur Leukocyte Esterase (Negative) Negative Urine Glucose (Negative) mg/dL Negative Urine Opiates Screen (Negative) Urine Methadone Screen (Negative) Ur Barbiturates Screen (Negative) Ur Tricyclics Screen (Negative) Ur Amphetamines Screen (Negative) U Benzodiazepines Scrn (Negative) Urine Cocaine Screen (Negative) Ur THC Screen (Negative) Range/Units 10/17/18 16:24 WBC (4.4-10.8) k/cumm RBC (4.00-5.20) m/cumm Hgb (12.0-15.5) g/dL Hct (36.0-46.0) % MCV (80-95) fL MCH (27.0-33.0) pg MCHC (32.0-36.0) g/dL RDW (11.7-14.6) % Plt Count (130-400) x1000/uL MPV (8.0-11.0) fL Immature Gran % Neutrophils % Lymphocytes % Monocytes % Eosinophils % Basophils % Absolute Neutrophils (1.2-6.7) k/cumm Absolute Lymphocytes (1.2-3.4) k/cumm Absolute Monocytes (0.11-0.7) k/cumm Absolute Eosinophils (0.0-0.7) k/cumm Absolute Basophils (0.0-0.2) k/cumm Sodium (136-145) mmol/L Potassium (3.5-5.1) mmol/L Chloride (98-107) mmol/L Carbon Dioxide (21.0-32.0) mmol/L Anion Gap (3-11) mmol/L BUN (7-18) mg/dL Creatinine (0.55-1.02) mg/dL Estimated GFR/1.73 m2 (mL/min/1.73m2) Glucose (70-100) mg/dL Calcium (8.5-10.1) mg/dL Magnesium (1.8-2.4) mg/dL Total Bilirubin (0.2-1.0) mg/dL AST (15-37) U/L ALT (12-78) U/L Alkaline Phosphatase (46-116) U/L Troponin I (0.00-0.06) ng/mL Total Protein (6.4-8.2) g/dL Albumin (3.4-5.0) g/dL Urine Color (Yellow) Urine Clarity (Clear) Urine pH (5-8) Ur Specific [place] (1.005-1.025) Urine Protein (Negative) mg/dL Urine Ketones (Negative) mg/dL Urine Blood (Negative) Urine Nitrite (Negative) Urine Bilirubin (Negative) Urine Urobilinogen (Up TO 0.2) EU/dL Ur Leukocyte Esterase (Negative) Urine Glucose (Negative) mg/dL Urine Opiates Screen (Negative) Negative Urine Methadone Screen (Negative) Positive Ur Barbiturates Screen (Negative) Negative Ur Tricyclics Screen (Negative) Negative Ur Amphetamines Screen (Negative) Negative U Benzodiazepines Scrn (Negative) Negative Urine Cocaine Screen (Negative) Negative Ur THC Screen (Negative) Positive ECG Data Attestation: I personally reviewed and interpreted this ECG (s) as follows: Interpretation: rate of 57, sinus, incomplete RBBB. TWI in III. No acute ST T wave ischemic findings. QTc 440. QRS 112. HPI General Mode of arrival: EMS . Date/Time Provider Initiated Documentation: 10/17/18 15:08 . Limitations to Documentation: no limitations . Information obtained by: patient . HPI Narrative: Pt is a 27 yo F who presents to the ED from pcp office for weakness and stroke like symptoms. Pt has a h/o cerebral aneurysm repair in 2014 and most recently 1 month ago diagnosed with acute ischemic stroke found on MRI in R cerebral hemisphere involving R parietal lobe, posterior frontal lobe, and R occipital lobe transferred to [facility] after admitted to [facility] last month and was thought that her acute ischemic cva was due to either thrombosed aneurysm clip vs cardioembolic as she was found to have PFO on TTE. She has chronic L upper and lower extremity weakness s/p her recent cva. She presents from pcp office where she followed up for difficulty focusing and headaches for the past few days. She states she has a h/o chronic daily headaches due to her migraines but she states her headaches are usually left sided and this current headache since yesterday is R sided and aching and radiating to her R eye. She also admits to blurry vision, generalized weakness, and increased fatigue since this am. She admits to chronic nausea for months. She denies known fever, chest pain, sob, abdominal pain or urinary symptoms. She is on methadone for the past 18 months due to IVDA and prescription drug abuse. She denies any recent increase in the dose or any other change in her meds and states she has been taking all of them as directed. She states she has been sleeping normally and denies any drug use. She states her next neurologist appt is tomorrow but is going to cancel it as she does not have a ride and she states she is homeless and thus unable to use RCT. She states she did f/u with cardiology after her [facility] discharge last month and she states they had no plans for uncoming surgical intervention of her PFO. Related Data Home Medications Medication Instructions Recorded Confirmed methadone [Dolophine] 120 mg PO DAILY 12/25/15 10/17/18 acetaminophen [Mapap Extra 1,000 mg PO Q6H 5 Days #60 tab 11/19/17 10/17/18 Strength] albuterol sulfate 1 puff INHALATION Q6H PRN 02/03/18 10/17/18 paroxetine HCl [Paxil] 20 mg PO HS 02/03/18 10/17/18 docusate sodium [Docusil] 100 mg PO DAILY #60 cap 07/01/18 10/17/18 Flovent HFA 1 puff INHALATION BID 10/17/18 10/17/18 amitriptyline 25 mg PO QHS 10/17/18 10/17/18 aspirin [Aspir-81] 81 mg PO DAILY 10/17/18 10/17/18 clopidogrel [Plavix] 75 mg PO DAILY 10/17/18 10/17/18 ferrous gluconate 324 mg PO DAILY 10/17/18 10/17/18 gabapentin 100 mg PO TID 10/17/18 10/17/18 hydroxyzine HCl 25 mg PO TID 10/17/18 10/17/18 lisinopril 5 mg PO DAILY 10/17/18 10/17/18 metoprolol succinate 50 mg PO DAILY 10/17/18 10/17/18 naproxen 375 mg PO TID PRN 10/17/18 10/17/18 ondansetron HCl 4 mg PO TID PRN 10/17/18 10/17/18 ranitidine HCl 150 mg PO BID 10/17/18 10/17/18 sumatriptan succinate [Imitrex] 100 mg PO DIRECTED PRN 10/17/18 10/17/18 tizanidine 4 mg PO TID 10/17/18 10/17/18 Previous Rx's Medication Instructions Recorded acetaminophen [Mapap Extra 1,000 mg PO Q6H 5 Days #60 tab 11/19/17 Strength] docusate sodium [Docusil] 100 mg PO DAILY #60 cap 07/01/18 Allergies Allergy/AdvReac Type Severity Reaction Status Date / Time meperidine HCl [From Demerol] Allergy Severe Anaphylaxsi Unverified 10/17/18 16:02 s venom-honey bee Allergy Severe anaphylaxis Unverified 10/17/18 16:02 [bee venom (honey bee)] lithium AdvReac Mild NAUSEA Unverified 10/17/18 16:02 sertraline HCl [From Zoloft] AdvReac Mild NIGHTMARES Unverified 10/17/18 16:02 General Stated Complaint: CVA/TIA KALINA: 3 Review of Systems Review of Systems All systems reviewed & are unremarkable except as noted in HPI and below Constitutional Reports as per HPI, Denies chills, Denies fever(s), Reports headache(s) and Denies weakness Eyes Reports blurry vision ENT Denies dizziness, Reports headache(s), Denies sore throat and Denies throat swelling Cardiovascular Denies chest pain and Denies dyspnea Respiratory Denies cough and Denies dyspnea Gastrointestinal Denies abdominal pain, Denies diarrhea and Denies vomiting Genitourinary Denies hematuria and Denies dysuria Musculoskeletal Denies back pain, Denies numbness and Reports tingling Integumentary/Breasts Denies lesions and Denies rash Neurologic Denies dizziness, Reports headache(s), Denies focal weakness, Denies numbness, Reports tingling, Reports paresthesias and Denies weakness Allergic/Immunologic Denies throat swelling [facility] Medical History Nephrolithiasis (Chronic) Scoliosis (Chronic) PTSD (post-traumatic stress disorder) (Chronic) History of intravenous drug abuse (Chronic) Depression (Chronic) Asthma (Chronic) Migraine headache with aura (Chronic ~2000) Hepatitis C infection (Chronic) Chronic daily headache (Chronic) Opioid dependence in controlled environment (Chronic) Blood bacterial culture positive (Resolved) Community acquired bacterial pneumonia (Resolved) S/P tubal ligation (Resolved) Therapeutic opioid induced constipation (Resolved) Surgical History History of (Resolved) History of cerebral aneurysm repair (Resolved ~2014) S/P cystoscopy with ureteral stent placement (Resolved) Status post thoracic spinal fusion (Resolved) Family History Paternal Aunt Cerebral aneurysm Social History Smoking/Tobacco Use Status: Current every day Tobacco Type: cigarettes Quit status: considering quitting Drug use: Socially Substance use type: former substance user, marijuana, crack/cocaine, heroin, opiates and IV drugs Details: former heroin and cocaine user, current enrolled in [facility] on methadone treatment program Household members: other Details: lives w/ cousin's ex- and her children Number of Children: 3 Do you feel safe at home: Yes Do you feel safe in your relationship?: Yes History History 2 Para 3 Hx # Term Pregnancies 2 Multiple births Hx # Pregnancies Ectopic pregnancies AB induced Hx Number of Living Children 3 AB spontaneous Exam Const General: cooperative and healthy appearing Orientation: alert and awake HENMT Head: normal to inspection Ears: hearing grossly normal bilaterally, external ears normal and TM's normal bilaterally General nose exam: external nose normal Face and sinus: normal facial exam Mouth: oral mucosae normal Teeth and gingiva: dentition normal Throat: posterior oropharynx normal Eyes General: appearance normal, both eyes and all related structures Eyelids: eyelids normal Pupils: PERRL EOM: EOM intact bilaterally Neck Neck: normal visual inspection Lymphatic: no lymphadenopathy noted Chest Chest: normal inspection of the chest Resp Effort & Inspection: normal respiratory effort and able to speak in complete sentences Auscultation: clear to auscultation bilaterally Cardio Rate: regular rate Rhythm: regular rhythm GI Inspection: normal to inspection Palpation: soft, not firm, no guarding, no hepatosplenomegaly, no masses and nontender Auscultation: normal bowel sounds Back/Spine/Pelvis Back: no CVA tenderness Skin General skin exam: no rashes or lesions noted Neuro General: oriented x3 and other (drowsy but easily arousable to voice) Cranial Nerves: CN's II-XI intact bilaterally Cognition: normal cognition Speech: speech normal Gait: normal gait Motor: muscle tone normal throughout and strength 5/5 throughout Sensory Exam: no sensory deficits noted Extrem General: normal to inspection, full ROM and normal capillary refill Psych Appearance: grossly normal Mental Status: mental status grossly normal Speech and Movement: speech and movement normal Affect: normal affect Thought Process: normal Course Vital Signs Temperature 97.9 F 10/17/18 15:02 Pulse 59 L 10/17/18 15:02 Respiratory Rate 16 10/17/18 15:02 Blood Pressure 113/53 L 10/17/18 15:02 Pulse Oximetry 93 L 10/17/18 15:02 Temperature 97.9 F 10/17/18 15:02 Temperature Source Temporal Artery Scan 10/17/18 15:02 Pulse 59 L 10/17/18 15:02 Pulse 57 L 10/17/18 15:20 Respiratory Rate 10 L 10/17/18 15:20 Respiratory Effort 10/17/18 15:02 Blood Pressure 113/53 L 10/17/18 15:02 Pulse Oximetry 93 L 10/17/18 15:20 Oxygen Delivery Method Room Air 10/17/18 15:02 Oxygen Flow Rate 0 10/17/18 15:02 Lab/Test Results Lab/Test Results: Laboratory Tests Range/Units 10/17/18 15:12 WBC (4.4-10.8) k/cumm 6.79 RBC (4.00-5.20) m/cumm 3.69 L Hgb (12.0-15.5) g/dL 11.3 L Hct (36.0-46.0) % 35.2 L MCV (80-95) fL 95.4 H MCH (27.0-33.0) pg 30.6 MCHC (32.0-36.0) g/dL 32.1 RDW (11.7-14.6) % 13.3 Plt Count (130-400) x1000/uL 277 MPV (8.0-11.0) fL 10.3 Immature Gran % 0.1 Neutrophils % 50.5 Lymphocytes % 38.7 Monocytes % 7.8 Eosinophils % 2.8 Basophils % 0.1 Absolute Neutrophils (1.2-6.7) k/cumm 3.42 Absolute Lymphocytes (1.2-3.4) k/cumm 2.63 Absolute Monocytes (0.11-0.7) k/cumm 0.53 Absolute Eosinophils (0.0-0.7) k/cumm 0.19 Absolute Basophils (0.0-0.2) k/cumm 0.01
[2018-10-17 16:37] LABS: ALT 76 U/L (12-78); AST 50 U/L (15-37); Albumin 3.2 g/dL (3.4-5.0); Alkaline Phosphatase 131 U/L (46-116); Anion Gap 9.2 mmol/L (3-11); BUN 19 mg/dL (7-18); Bilirubin, Total 0.2 mg/dL (0.2-1.0); CO2 28.8 mmol/L (21.0-32.0); CREATININE 0.76 mg/dL (0.55-1.02); Calcium 8.3 mg/dL (8.5-10.1); Chloride 105 mmol/L (98-107); Glucose 76 mg/dL (70-100); Magnesium 1.8 mg/dL (1.8-2.4); Potassium 4.3 mmol/L (3.5-5.1); Sodium 143 mmol/L (136-145); Total Protein 6.6 g/dL (6.4-8.2)
[2018-10-17 16:42] LABS: Troponin I < 0.05 ng/mL (0.00-0.06)
[2018-10-17 16:47] LABS: Bilirubin Negative (Negative); Blood Negative (Negative); Clarity Clear (Clear); Glucose Negative (Negative); Ketones Negative (Negative); Leukocyte Esterase Negative (Negative); Nitrite Negative (Negative); Urobilinogen 0.2 EU/dL (Up TO 0.2); pH 5.5 (5-8)
--- NOTE | 2018-10-17 16:53 | DI.VRAD_ITS ---
EXAM: CT Head Without Contrast EXAM DATE/TIME: 10/17/2018 4:15 PM CLINICAL HISTORY: 27 years old, female; Prior surgery; Surgery type: Aneurysm 2015; Patient HX: R hand tingling, h/o CVA; Additional info: R/O CVA TECHNIQUE: Imaging protocol: Axial computed tomography images of the head without contrast. Coronal and sagittal reformatted images were created and reviewed. COMPARISON: CT HEAD WO 09/03/2018 9:39 PM FINDINGS: Limitations: Artifact from an aneurysm coil within the anterior right suprasellar region results in artifact slightly limiting evaluation of the basilar portions of the brain. Brain: Small areas of encephalomalacia within the right frontal lobe are unchanged compared to the prior head CT. No intracranial hemorrhage or mass effect is identified. There are prominent perivascular spaces at the inferior edges of the basal ganglia, bilaterally, as demonstrated on prior MRI performed on 09/03/2018. No CT scan evidence of acute stroke. Ventricles: Unremarkable. No ventriculomegaly. Bones/joints: Unremarkable. No acute fracture. Sinuses: Visualized sinuses are unremarkable. No fluid levels. Mastoid air cells: Visualized mastoid air cells are well aerated. No mastoid effusion. Soft tissues: Unremarkable. IMPRESSION: 1. No acute abnormality. Note should be made that early acute stroke may not be visible on initial CT scan. 2. Mild artifact from aneurysm coil as described above. 3. Small areas of encephalomalacia within the right frontal lobe, unchanged. Dictated and Authenticated by: Weston Amanda MD. Ordering:HALIMA Duncan MD
--- NOTE | 2018-10-17 16:55 | DI.VRAD_ITS ---
EXAM: XR Chest, 2 Views EXAM DATE/TIME: 10/17/2018 4:39 PM CLINICAL HISTORY: 27 years old, female; Other: H/o CVA, stroke like symptoms, assess mediastinum; Additional info: R/O CVA TECHNIQUE: Imaging protocol: XR of the chest, 2 views. COMPARISON: CR XR CHEST 2V PA LATERAL 09/04/2018 10:26 AM FINDINGS: Lungs: Unremarkable. No consolidation. Pleural space: Unremarkable. No pleural effusion. No pneumothorax. Heart/Mediastinum: Unremarkable. No cardiomegaly. Bones/joints: Posterior sonya instrumentation from the upper thoracic spine to the lower thoracic spine is present. No hardware failure is identified. There is scoliosis of the thoracic spine, apex to the right, unchanged. IMPRESSION: No acute abnormality. Dictated and Authenticated by: Weston Amanda MD. Ordering:HALIMA Duncan MD
[2018-10-17] MEDS: Normal Saline 500 ML IV ×2 (16:59→19:19)
[2018-10-17 17:21] LABS: *AMPHETAMINES SCREEN URINE Negative (Negative); *BARBITURATES SCREEN URINE Negative (Negative); *BENZODIAZEPINES SCREEN URINE Negative (Negative); Cannabinoids THC POSITIVE (Negative); Cocaine Screen,Urine Negative (Negative); METHADONE URINE SCREEN POSITIVE (Negative); OPIATES URINE SCREEN Negative (Negative); Tricyclic Antidepressants Negative (Negative)
[2018-10-17] MEDS: Omnipaque 350 MG/ML 100 ML BTL IV (18:09)
--- NOTE | 2018-10-17 18:39 | DI.VRAD_ITS ---
EXAM: CT Angiography Head With Contrast EXAM DATE/TIME: 10/17/2018 5:09 PM CLINICAL HISTORY: 27 years old, female; Pain; Prior surgery; Patient HX: Headache, R hand tingling; Additional info: R/O thrombosis TECHNIQUE: Imaging protocol: Axial computed tomographic angiography images of the head with intravenous contrast using CT angiography protocol. Coronal and sagittal reformatted images were created and reviewed. 3D rendering: MIP reconstructed images were created and reviewed. 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 Beam hardening artifact limits evaluation of right inaja of Tang structures. Visualized portions of right ICA are patent. Right anterior cerebral artery: No occlusion or significant stenosis. No aneurysm. Right middle cerebral artery: No occlusion or significant stenosis. No aneurysm. Right posterior cerebral artery: No occlusion or significant stenosis. No aneurysm. Right vertebral artery: No occlusion or significant stenosis. No aneurysm. Left internal carotid artery: Intracranial segment is patent with no evidence of hemodynamically significant stenosis. No aneurysm. Left anterior cerebral artery: No occlusion or significant stenosis. No aneurysm. Left middle cerebral artery: No occlusion or significant stenosis. No aneurysm. Left posterior cerebral artery: No occlusion or significant stenosis. No aneurysm. Left vertebral artery: No occlusion or significant stenosis. No aneurysm. Basilar artery: No occlusion or significant stenosis. No aneurysm. IMPRESSION: 1. No intracranial arterial occlusion or hemodynamically significant stenosis. 2. Other chronic findings, as above. EXAM: CT Angiography Neck With Contrast EXAM DATE/TIME: 10/17/2018 5:09 PM CLINICAL HISTORY: 27 years old, female; Pain; Prior surgery; Patient HX: Headache, R hand tingling; Additional info: R/O thrombosis TECHNIQUE: Imaging protocol: Axial computed tomographic angiography images of the neck with intravenous contrast using CT angiography protocol. Coronal and sagittal reformatted images were created and reviewed. 3D rendering: MIP reconstructed images were created and reviewed. COMPARISON: CT BRAIN NECK CTA 09/03/2018 9:46 PM FINDINGS: VASCULATURE: Right common carotid artery: No significant stenosis. No dissection or occlusion. Right internal carotid artery: Extracranial segment is patent with no significant stenosis (0% stenosis by NASCET criteria). No dissection or occlusion. Right external carotid artery: No occlusion or significant stenosis. Right vertebral artery: No significant stenosis. No dissection or occlusion. Left common carotid artery: No significant stenosis. No dissection or occlusion. Left internal carotid artery: Extracranial segment is patent with no significant stenosis (0% stenosis by NASCET criteria). No dissection or occlusion. Left external carotid artery: No occlusion or significant stenosis. Left vertebral artery: No significant stenosis. No dissection or occlusion. NECK: Thyroid: 1.7 cm heterogeneous nodule in the right lobe of the thyroid gland. Bones/joints: No acute fracture. Soft tissues: Unremarkable. IMPRESSION: 1. No occlusion or hemodynamically significant stenosis in the arteries of the neck. 2. 1.7 cm heterogeneous nodule in the right lobe of the thyroid gland. Recommend correlation with non-emergent thyroid ultrasound. COMMENT: Reference per NASCET criteria for degree of stenosis: Mild: less than 50% stenosis. Moderate: 50-69% stenosis. Severe: 70-94% stenosis. Near occlusion: 95-99% stenosis. Dictated and Authenticated by: Colt Sargent MD. Ordering:HALIMA Duncan MD
[2018-10-17] MEDS: diphenhydrAMINE 50 MG/ML VIAL 25 MG IVP (19:20)
[2018-10-17] MEDS: Dexamethasone 10 MG/ML VIAL IVP (19:20)
[2018-10-17] MEDS: Prochlorperazine 10 MG/2 ML VIAL IVP (19:21)
== END 2018-10-17 21:10 | disposition home or self-care (01) ==
PROVIDERS: Emergency Medicine; Emergency Provider Physician Assistant; PCP Specialist/Technologist Athletic Trainer
DX: R51 Headache (principal); R20.2 Paresthesia of skin; R53.83 Other fatigue; R53.1 Weakness; Z86.73 Personal history of transient ischemic attack (TIA), and cerebral infarction without residual deficits; Z59.0 Homelessness
CPT/HCPCS: 36415; 36416; 70496; 70498; 80053; 80307; 82962; 93005; 96361; 96374; 96375; 99285; 70450; 71046; 81003; 83735; 84484; 85025; 93010; J0780; J1100; J1200; J3490

== ENCOUNTER 2018-10-22 11:27 | Emergency (ER) | payer MEDICAID, SELFPAY ==
[2018-10-22] VITALS (24 sets, daily range): BP systolic 94–129; BP diastolic 53–90; PULSE 66–94; RESP 8–26; TEMP 36.8; O2SAT 89–97
--- NOTE | 2018-10-22 11:36 | W.ED.GENAD ---
Discharge Plan Disposition Patient Disposition: HOME Condition: Good Discharge Details Chief Complaint: Allergic Clinical Impression: Bee sting reaction Primary Care Provider: Greg Gresham ED Provider: Macho Hinojosa Home Meds and New Rx's Prescriptions: New epinephrine 0.3 mg/0.3 mL auto-injector 0.3 mg IM ONCE PRN (Reason: anaphylaxis) Qty: 1 RF: 1 Continued methadone [Dolophine] 10 MG tablet 120 mg PO DAILY RF: 0 acetaminophen [Mapap Extra Strength] 500 MG tablet 1,000 mg PO Q6H 5 Days Qty: 60 RF: 0 paroxetine HCl [Paxil] 10 mg Tablet 20 mg PO HS RF: 0 albuterol sulfate 90 mcg/actuation Hfa Aerosol Inhaler 1 puff INHALATION Q6H PRNRF: 0 docusate sodium [Docusil] 100 mg capsule 100 mg PO DAILY Qty: 60 RF: 0 tizanidine 4 mg Tablet 4 mg PO TID RF: 0 sumatriptan succinate [Imitrex] 100 mg Tablet 100 mg PO DIRECTED PRNRF: 0 ondansetron HCl 4 mg Tablet 4 mg PO TID PRNRF: 0 clopidogrel [Plavix] 75 mg Tablet 75 mg PO DAILY RF: 0 aspirin [Aspir-81] 81 mg Tablet,Delayed Release (Dr/Ec) 81 mg PO DAILY RF: 0 amitriptyline 25 mg Tablet 25 mg PO QHS RF: 0 ranitidine HCl 150 mg Tablet 150 mg PO BID RF: 0 hydroxyzine HCl 25 mg Tablet 25 mg PO TID RF: 0 Flovent HFA 220 mcg/actuation Hfa Aerosol Inhaler 1 puff INHALATION BID RF: 0 lisinopril 5 mg Tablet 5 mg PO DAILY RF: 0 gabapentin 100 mg Capsule 100 mg PO TID RF: 0 metoprolol succinate 25 mg Tablet Extended Release 24 Hr 50 mg PO DAILY RF: 0 naproxen 375 mg Tablet,Delayed Release (Dr/Ec) 375 mg PO TID PRNRF: 0 ferrous gluconate 324 mg (37.5 mg iron) Tablet 324 mg PO DAILY RF: 0 Discharge Instructions Instructions: Insect Bite or Sting (ED), Anaphylaxis (ED) Additional Instructions: Return immediately to the emergency department if you develop any return of shortness of breath or difficulty breathing, swelling to your lips tongue mouth or face, or any further concerns. Otherwise follow-up with your primary care provider as needed for reassessment Referrals: Greg Gresham [Primary Care Provider] - (As needed for reassessment) Discharge Data Discharge Date/Time-TO BE ENTERED AT DEPARTURE: 10/22/18 13:54 Medical Decision Making Patient presenting to the emergency department for chief complaint of bee sting. Patient states approximately 10 minutes prior to arrival she was stung by bee in the left hand. Patient states previous anaphylactic reaction and that she did not have an EpiPen so came straight to the emergency department. Patient has slight sting tim without stinger present onto the left hand with some redness and swelling, exam is otherwise unremarkable with no wheezing, no stridor, no swelling of the lips tongue mouth or face, no respiratory distress. Patient appears highly anxious and does state some shortness of breath but no physical exam findings are noted. Given patient's history patient given 0.4 mg of epinephrine, IV fluids, Benadryl, and Solu-Medrol. While I do not doubt patient having been stung by a bee but given patient's medical history and multiple emergency department visits I also suspect possibly more of anxiety causing her shortness of breath then any anaphylaxis we will continue to observe patient's condition Patient was observed in the emergency department for 2 hours and had full resolution of symptoms. Given that patient is fully improved and denies any symptoms at this time I feel that patient can be safely discharged home. She was represcribed her epinephrine given that she states that she is out of this at home and return precautions were discussed. Patient was informed that she should fill this medication immediately upon discharge from the emergency department. After discussion of diagnosis and plan of care patient has no further needs, questions, or concerns and states clear understanding to return to the emergency department for any worsening symptoms. HPI General Mode of arrival: ambulatory. Date/Time Provider Initiated Documentation: 10/22/18 11:28. Limitations to Documentation: no limitations. Information obtained by: patient and RN notes reviewed. History of Present Illness 27 year old F presents to the emergency department with the chief complaint of Bee sting, described as moderate, Quality is described as sharp, and is localized to the left. Patient started experiencing this minute(s) (10) and it has been constant. Patient notes shortness of breath. Patient did receive the following treatments prior to arrival, none Related Data Home Medications Medication Instructions Recorded Confirmed methadone [Dolophine] 120 mg PO DAILY 12/25/15 10/22/18 acetaminophen [Mapap Extra 1,000 mg PO Q6H 5 Days #60 tab 11/19/17 10/22/18 Strength] albuterol sulfate 1 puff INHALATION Q6H PRN 02/03/18 10/22/18 paroxetine HCl [Paxil] 20 mg PO HS 02/03/18 10/22/18 docusate sodium [Docusil] 100 mg PO DAILY #60 cap 07/01/18 10/22/18 Flovent HFA 1 puff INHALATION BID 10/17/18 10/22/18 amitriptyline 25 mg PO QHS 10/17/18 10/22/18 aspirin [Aspir-81] 81 mg PO DAILY 10/17/18 10/22/18 clopidogrel [Plavix] 75 mg PO DAILY 10/17/18 10/22/18 ferrous gluconate 324 mg PO DAILY 10/17/18 10/22/18 gabapentin 100 mg PO TID 10/17/18 10/22/18 hydroxyzine HCl 25 mg PO TID 10/17/18 10/22/18 lisinopril 5 mg PO DAILY 10/17/18 10/22/18 metoprolol succinate 50 mg PO DAILY 10/17/18 10/22/18 naproxen 375 mg PO TID PRN 10/17/18 10/22/18 ondansetron HCl 4 mg PO TID PRN 10/17/18 10/22/18 ranitidine HCl 150 mg PO BID 10/17/18 10/22/18 sumatriptan succinate [Imitrex] 100 mg PO DIRECTED PRN 10/17/18 10/22/18 tizanidine 4 mg PO TID 10/17/18 10/22/18 epinephrine 0.3 mg IM ONCE PRN #1 each 10/22/18 Previous Rx's Medication Instructions Recorded acetaminophen [Mapap Extra 1,000 mg PO Q6H 5 Days #60 tab 11/19/17 Strength] docusate sodium [Docusil] 100 mg PO DAILY #60 cap 07/01/18 epinephrine 0.3 mg IM ONCE PRN #1 each 10/22/18 Allergies Allergy/AdvReac Type Severity Reaction Status Date / Time meperidine HCl [From Demerol] Allergy Severe Anaphylaxsi Unverified 10/17/18 16:02 s venom-honey bee Allergy Severe anaphylaxis Unverified 10/17/18 16:02 [bee venom (honey bee)] lithium AdvReac Mild NAUSEA Unverified 10/17/18 16:02 sertraline HCl [From Zoloft] AdvReac Mild NIGHTMARES Unverified 10/17/18 16:02 General Stated Complaint: Allergic KALINA: 3 Review of Systems Constitutional Denies chills, Denies fever(s) and Denies malaise Cardiovascular Denies chest pain with activity, Denies irregular heart rhythm and Reports dyspnea Respiratory Reports dyspnea, Denies stridor and Denies wheezing Gastrointestinal Denies nausea and Denies vomiting Integumentary/Breasts Reports as per HPI and Denies rash Allergic/Immunologic Denies wheezing PFSH Medical History Nephrolithiasis (Chronic) Scoliosis (Chronic) PTSD (post-traumatic stress disorder) (Chronic) History of intravenous drug abuse (Chronic) Depression (Chronic) Asthma (Chronic) Migraine headache with aura (Chronic ~2000) Hepatitis C infection (Chronic) Chronic daily headache (Chronic) Opioid dependence in controlled environment (Chronic) Blood bacterial culture positive (Resolved) Community acquired bacterial pneumonia (Resolved) S/P tubal ligation (Resolved) Therapeutic opioid induced constipation (Resolved) Surgical History History of (Resolved) History of cerebral aneurysm repair (Resolved ~2014) S/P cystoscopy with ureteral stent placement (Resolved) Status post thoracic spinal fusion (Resolved) Family History Paternal Aunt Cerebral aneurysm Social History Smoking/Tobacco Use Status: Current every day Tobacco Type: cigarettes Quit status: considering quitting Alcohol Intake: current Alcohol Intake frequency: a few times a week Alcohol type: wine Drug use: Socially Substance use type: former substance user, marijuana, crack/cocaine, heroin, opiates and IV drugs Details: former heroin and cocaine user, current enrolled in [facility] on methadone treatment program Household members: other Details: lives w/ cousin's ex- and her children Number of Children: 3 Do you feel safe at home: Yes Do you feel safe in your relationship?: Yes History History 2 Para 3 Hx # Term Pregnancies 2 Multiple births Hx # Pregnancies Ectopic pregnancies AB induced Hx Number of Living Children 3 AB spontaneous Exam Const General: cooperative, healthy appearing, comfortable, no acute distress, anxious, not diaphoretic and not ill appearing Nutritional Appearance: average body habitus Orientation: alert, awake and oriented x3 HENMT Face and sinus: normal facial exam and no edema Mouth: oral mucosae normal, lip normal and tongue normal Throat: posterior oropharynx normal, tonsils normal and uvula midline Neck Neck: normal visual inspection, full ROM, trachea midline, supple and no anterior neck swelling Thyroid: thyroid normal Carotids: normal carotid upstroke and no bruits Chest Chest: normal inspection of the chest Resp Effort & Inspection: normal respiratory effort and able to speak in complete sentences Auscultation: clear to auscultation bilaterally Cardio Jugular venous pressure: no JVD Palpation: normal PMI Rate: regular rate Rhythm: regular rhythm Heart Sounds: S1 normal, S2 normal, no click, no gallops, no murmurs and no rubs Skin General skin exam: erythema (Circular erythema to left hand, mild swelling) Neuro General: alert, awake, oriented x3, tone normal and moves all extremities Course Vital Signs Temperature 36.8 C 10/22/18 11:29 Pulse 94 H 10/22/18 11:29 Respiratory Rate 22 10/22/18 11:29 Blood Pressure 94/56 L 10/22/18 11:29 Pulse Oximetry 97 10/22/18 11:29 Temperature 36.8 C 10/22/18 11:29 Temperature Source Tympanic 10/22/18 11:29 Pulse 94 H 10/22/18 11:29 Respiratory Rate 22 10/22/18 11:29 Respiratory Effort Non-Labored 10/22/18 11:33 Blood Pressure 94/56 L 10/22/18 11:29 Blood Pressure Position Sitting 10/22/18 11:29 Pulse Oximetry 97 10/22/18 11:29 Oxygen Delivery Method Room Air 10/22/18 11:29 Oxygen Flow Rate 0 10/22/18 11:29 Pain Level 2 10/22/18 11:29
[2018-10-22] MEDS: EPINEPHrine 1 MG/ML AMP pres-free (11:38)
[2018-10-22] MEDS: methylPREDNISolone SUCC 125 MG VIAL IVP (11:46)
[2018-10-22] MEDS: diphenhydrAMINE 50 MG/ML VIAL 25 MG IVP (11:46)
[2018-10-22] MEDS: Normal Saline 1,000 ML 1000 ML IV (11:47)
[2018-10-22] MEDS: Acetaminophen 325 MG TAB (12:29)
== END 2018-10-22 13:54 | disposition home or self-care (01) ==
PROVIDERS: Emergency Provider Nurse Practitioner Family; PCP Specialist/Technologist Athletic Trainer
DX: T63.441A Toxic effect of venom of bees, accidental (unintentional), initial encounter (principal); Z91.030 Bee allergy status
CPT/HCPCS: 96361; 96374; 96375; 99284; J0171; J1200; J2930

== ENCOUNTER 2019-01-02 12:12 | Outpatient (REF) | payer MEDICAID, SELFPAY ==
[2019-01-02 13:16] LABS: HCT 39.8 % (36.0-46.0); HGB 12.9 g/dL (12.0-15.5); Mean Corp. HGB Concentration 32.4 g/dL (32.0-36.0); Mean Corpuscular Hemoglobin 30.1 pg (27.0-33.0); Mean Platelet Volume 11.6 fL (8.0-11.0); Platelet Count 329 x1000/uL (130-400); RBC 4.28 m/cumm (4.00-5.20); RBC Distribution Width 12.4 % (11.7-14.6); White Blood Cell Count 7.88 k/cumm (4.4-10.8)
[2019-01-02 13:40] LABS: ALT 56 U/L (14-59); AST 43 U/L (15-37); Albumin 3.6 g/dL (3.4-5.0); Alkaline Phosphatase 181 U/L (46-116); Anion Gap 6.9 mmol/L (3-11); BUN 21 mg/dL (7-18); Bilirubin, Total 0.3 mg/dL (0.2-1.0); CO2 30.1 mmol/L (21.0-32.0); CREATININE 0.97 mg/dL (0.55-1.02); Calcium 9.4 mg/dL (8.5-10.1); Chloride 101 mmol/L (98-107); Glucose 93 mg/dL (70-100); Magnesium 1.6 mg/dL (1.8-2.4); Potassium 4.2 mmol/L (3.5-5.1); Sodium 138 mmol/L (136-145); Total Protein 7.4 g/dL (6.4-8.2)
[2019-01-03 10:41] LABS: Hepatitis B Surface Ag Negative (NEGAT)
[2019-01-03 10:51] LABS: HIV-1/2 Ag & Ab Screen Negative (NEGAT)
[2019-01-03 11:58] LABS: Hep B Core Antibody Negative (NEGAT)
[2019-01-03 14:44] LABS: HCV RNA Detection Quantitative 144746 IU/mL (UNDECT)
== END 2019-01-02 12:32 ==
LOC: NCHCN 12:12
PROVIDERS: PCP Specialist/Technologist Athletic Trainer; Visit Provider Family Medicine
DX: B18.2 Chronic viral hepatitis C (principal); E83.42 Hypomagnesemia
CPT/HCPCS: 80053; 81596; 85027; 86704; 87340; 87389; 83735; 87522

== ENCOUNTER 2019-01-30 16:56 | Emergency (ER) | payer MEDICAID, SELFPAY ==
[2019-01-30] VITALS (9 sets, daily range): BP systolic 111–151; BP diastolic 64–117; PULSE 94–104; RESP 16–18; TEMP 37; O2SAT 97–100
--- NOTE | 2019-01-30 17:05 | ED.GENADUL_ITS ---
Discharge Plan Disposition Patient Disposition: HOME Condition: Improving Discharge Details Chief Complaint: CVA/TIA Clinical Impression: Fall at home, Syncope, Contusion of multiple sites, Status post brain surgery Primary Care Provider: Frances Sorensen ED Provider: Perla Abbott Home Meds and New Rx's Prescriptions: Continued methadone [Dolophine] 10 MG tablet 120 mg PO DAILY RF: 0 acetaminophen [Mapap Extra Strength] 500 MG tablet 1,000 mg PO Q6H 5 Days Qty: 60 RF: 0 paroxetine HCl [Paxil] 10 mg Tablet 20 mg PO HS RF: 0 albuterol sulfate 90 mcg/actuation Hfa Aerosol Inhaler 1 puff INHALATION Q6H PRNRF: 0 docusate sodium [Docusil] 100 mg capsule 100 mg PO DAILY Qty: 60 RF: 0 epinephrine 0.3 mg/0.3 mL auto-injector 0.3 mg IM ONCE PRN (Reason: anaphylaxis) Qty: 1 RF: 1 sumatriptan succinate [Imitrex] 100 mg Tablet 100 mg PO DIRECTED PRNRF: 0 ondansetron HCl 4 mg Tablet 4 mg PO TID PRNRF: 0 clopidogrel [Plavix] 75 mg Tablet 75 mg PO DAILY RF: 0 aspirin [Aspir-81] 81 mg Tablet,Delayed Release (Dr/Ec) 81 mg PO DAILY RF: 0 amitriptyline 25 mg Tablet 25 mg PO QHS RF: 0 ranitidine HCl 150 mg Tablet 150 mg PO BID RF: 0 hydroxyzine HCl 25 mg Tablet 25 mg PO TID RF: 0 Flovent HFA 220 mcg/actuation Hfa Aerosol Inhaler 1 puff INHALATION BID RF: 0 lisinopril 5 mg Tablet 5 mg PO DAILY RF: 0 gabapentin 100 mg Capsule 100 mg PO TID RF: 0 metoprolol succinate 25 mg Tablet Extended Release 24 Hr 50 mg PO DAILY RF: 0 naproxen 375 mg Tablet,Delayed Release (Dr/Ec) 375 mg PO TID PRNRF: 0 ferrous gluconate 324 mg (37.5 mg iron) Tablet 324 mg PO DAILY RF: 0 Changed tizanidine 4 mg Tablet 4 mg PO TID PRN (Reason: muscle spasticity) Qty: 10 RF: 0 Discharge Instructions Instructions: Syncope (ED), Contusion in Adults (ED) Additional Instructions: Drink plenty of fluids and get plenty of rest. Take Tylenol as needed and directed for pain. Apply ice to the affected area several times daily for 20 minutes at a time. Call your primary care doctor tomorrow to schedule a follow-up appointment for reevaluation and for referral for outpatient quality assurance monitor body. Return immediately to the emergency department if you develop any worsening or new concerning symptoms. Discharge Data Discharge Date/Time-TO BE ENTERED AT DEPARTURE: 01/30/19 23:25 Discharge Physician: Perla Abbott Medical Decision Making 28-year-old female who is 9 days s/p pipeline stenting of left ophthalmic aneurysm at [facility] with history of coiling of right ophthalmic aneurysm in 2016 who presents status post multiple syncopal episodes today at home. Patient states she was standing in the shower today when she felt that she was about to pass out and then fell hitting multiple body parts on the bathtub. Per review of [facility] records from her recent surgical procedure, at time of discharge she was at her neurologic baseline. Hypertensive on arrival, which then normalized and vitals within normal limits. She is moving all extremities without obvious orthopedic deformity. She has multiple areas of ecchymosis to abdomen and bilateral lower extremities. EKG notes a rate of 94, sinus with no acute ST ischemic changes. Will check screening labs, give bolus IV fluids, and check CT head/cervical spine/facial bones/chest/abdomen/pelvis/thoracic and lumbar spine. We will also obtain bilateral femur, right knee, right tib-fib and left foot x-rays to rule out fracture. 2014 --labs and imaging reviewed and unremarkable. 1.5cm nodule in R thyroid gland - advised to f/u for outpatient nonemergent US. She was given a dose of IV Tylenol and felt much better. She was able to ambulate. She was advised to follow-up with her primary care doctor for reevaluation and for referral for outpatient quality assurance monitor body and to return here with any concerns. Medical Records Medical records reviewed: Yes I reviewed the patient's medical records. Imaging Data Radiologic Study: Radiologist's impression: XR Right Knee Exam date and time: 01/30/2019 6:50 PM Clinical history: 28 years old, female; Pain; Knee; Right TECHNIQUE: Imaging protocol: XR Right knee. Views: 3 views. COMPARISON: CR XR TIB/FIB RT 01/30/2019 6:12 PM FINDINGS: Bones/joints: Normal. Soft tissues: Normal. IMPRESSION: No acute findings. XR Left Foot Complete Exam date and time: 01/30/2019 6:49 PM Clinical history: 28 years old, female; Pain; Foot; Left TECHNIQUE: Imaging protocol: XR Left foot. Views: 3 or more views. COMPARISON: No relevant prior studies available. FINDINGS: Bones/joints: The patient is status post left first metatarsal head osteotomy and pinning. No acute fracture or dislocation. The alignment is anatomic. Soft tissues: Normal. IMPRESSION: No acute fracture or dislocation. XR Right Femur Exam date and time: 01/30/2019 6:49 PM Clinical history: 28 years old, female; Pain; Thigh; Right TECHNIQUE: Imaging protocol: XR Right femur. Views: 2 views. COMPARISON: CR XR TIB/FIB RT 01/30/2019 6:12 PM FINDINGS: Bones/joints: Unremarkable. No acute fracture. Soft tissues: Unremarkable. IMPRESSION: No acute findings. XR Right Tibia and Fibula Exam date and time: 01/30/2019 6:50 PM Clinical history: 28 years old, female; Pain; Lower leg; Right TECHNIQUE: Imaging protocol: XR Right tibia and fibula. Views: 2 views. COMPARISON: No relevant prior studies available. FINDINGS: Bones/joints: Normal. Soft tissues: Normal. IMPRESSION: No acute findings. XR Left Femur Exam date and time: 01/30/2019 6:50 PM Clinical history: 28 years old, female; Pain; Thigh; Left TECHNIQUE: Imaging protocol: XR Left femur. Views: 2 views. COMPARISON: No relevant prior studies available. FINDINGS: Bones/joints: Unremarkable. No acute fracture. Soft tissues: Unremarkable. IMPRESSION: No acute findings. CT Chest With Contrast Exam date and time: 01/30/2019 5:53 PM Clinical history: 28 years old, female; Injury or trauma; Fall; Initial encounter; Generalized; Blunt trauma (contusions or hematomas); Injury date: Unknown TECHNIQUE: Imaging protocol: Computed tomography of the chest with intravenous contrast. Radiation optimization: All CT scans at this facility use at least one of these dose optimization techniques: automated exposure control; mA and/or kV adjustment per patient size (includes targeted exams where dose is matched to clinical indication); or iterative reconstruction. COMPARISON: CT Vascular^PE XXL (Adult) 03/26/2018 3:01 PM FINDINGS: Lungs: Unremarkable. No consolidation. No masses. Pleural space: Unremarkable. No pneumothorax. No pleural effusion. Heart: Unremarkable. No cardiomegaly. No pericardial effusion. Aorta: Unremarkable. No aortic aneurysm. Lymph nodes: Unremarkable. No enlarged lymph nodes. Bones/joints: Unremarkable. No acute fracture. Soft tissues: Unremarkable. IMPRESSION: No acute findings. CT Head Without Contrast Exam date and time: 01/30/2019 5:26 PM Clinical history: 28 years old, female; Face pain; Neck pain; Prior surgery; Surgery date: 6+ months; Surgery type: HX of many strokes, TECHNIQUE: Imaging protocol: Computed tomography of the head without contrast. Radiation optimization: All CT scans at this facility use at least one of these dose optimization techniques: automated exposure control; mA and/or kV adjustment per patient size (includes targeted exams where dose is matched to clinical indication); or iterative reconstruction. COMPARISON: CT HEAD WO 10/17/2018 4:28 PM FINDINGS: Brain: A region of encephalomalacia in the right frontal lobe may be from prior infarct. There is no acute intracranial hemorrhage, mass effect or midline shift. Ventricles: Normal. No ventriculomegaly. Bones/joints: Unremarkable. No acute fracture. Sinuses: Visualized sinuses are unremarkable except for mild mucosal thickening in the ethmoid sinuses. No fluid levels. Mastoid air cells: Visualized mastoid air cells are well aerated. Soft tissues: Unremarkable. Vasculature: An aneurysm coil is seen in the region of the right internal carotid artery. There is streak artifact from this coil mass, limiting evaluation of the adjacent brain parenchyma. A left internal carotid artery stent is noted in the cavernous and supraclinoid segments. IMPRESSION: No acute intracranial hemorrhage, mass effect or midline shift. CT Maxillofacial Without Contrast Exam date and time: 01/30/2019 5:26 PM Clinical history: 28 years old, female; Face pain; Neck pain; Prior surgery; Surgery date: 6+ months; Surgery type: HX of many strokes, TECHNIQUE: Imaging protocol: Computed tomography images of the face without contrast. Radiation optimization: All CT scans at this facility use at least one of these dose optimization techniques: automated exposure control; mA and/or kV adjustment per patient size (includes targeted exams where dose is matched to clinical indication); or iterative reconstruction. COMPARISON: CT HEAD WO 10/17/2018 4:28 PM FINDINGS: Orbits: Orbits are normal. Globes are unremarkable. Sinuses: There is mild mucosal thickening in ethmoid sinuses. No air-fluid levels. Bones/joints: There is pneumatization of the right middle turbinate with leftward deviation of the nasal septum. Soft tissues: Unremarkable. IMPRESSION: No acute findings. CT Cervical Spine Without Contrast Exam date and time: 01/30/2019 5:26 PM Clinical history: 28 years old, female; Face pain; Neck pain; Prior surgery; Surgery date: 6+ months; Surgery type: HX of many strokes, TECHNIQUE: Imaging protocol: Computed tomography images of the cervical spine without contrast. Radiation optimization: All CT scans at this facility use at least one of these dose optimization techniques: automated exposure control; mA and/or kV adjustment per patient size (includes targeted exams where dose is matched to clinical indication); or iterative reconstruction. COMPARISON: CT HEAD WO 10/17/2018 4:28 PM FINDINGS: Vertebrae: No acute fracture. Normal alignment. Posterior spinal fusion in the thoracic spine is partially visualized. Discs/Spinal canal/Neural foramina: No spinal stenosis. No neural foraminal narrowing. Soft tissues: Unremarkable. Thyroid: A 1.5 cm region of hypodensity seen in the right thyroid gland, which may represent a nodule. Lungs: Lung apices are normal. IMPRESSION: 1. No acute fracture or listhesis. 2. 1.5 cm region of hypodensity in the right thyroid gland which may represent a nodule. A nonemergent ultrasound is recommended for further evaluation. Lab Data Lab results reviewed: Yes I reviewed the patient's lab results. Labs: Laboratory Tests Range/Units 01/30/19 01/30/19 01/30/19 17:27 17:27 17:27 WBC (4.4-10.8) k/cumm 6.88 RBC (4.00-5.20) m/cumm 3.55 L Hgb (12.0-15.5) g/dL 10.8 L Hct (36.0-46.0) % 33.2 L MCV (80-95) fL 93.5 MCH (27.0-33.0) pg 30.4 MCHC (32.0-36.0) g/dL 32.5 RDW (11.7-14.6) % 12.9 Plt Count (130-400) x1000/uL 305 MPV (8.0-11.0) fL 10.5 Immature Gran % 0.4 Neutrophils % 55.7 Lymphocytes % 31.0 Monocytes % 8.1 Eosinophils % 4.7 Basophils % 0.1 Absolute Neutrophils (1.2-6.7) k/cumm 3.83 Absolute Lymphocytes (1.2-3.4) k/cumm 2.13 Absolute Monocytes (0.11-0.7) k/cumm 0.56 Absolute Eosinophils (0.0-0.7) k/cumm 0.32 Absolute Basophils (0.0-0.2) k/cumm 0.01 Sodium (136-145) mmol/L 143 Potassium (3.5-5.1) mmol/L 3.3 L Chloride (98-107) mmol/L 105 Carbon Dioxide (21.0-32.0) mmol/L 27.6 Anion Gap (3-11) mmol/L 10.4 BUN (7-18) mg/dL 25 H Creatinine (0.55-1.02) mg/dL 1.18 H Estimated GFR/1.73 m2 (mL/min/1.73m2) 54.15 Glucose (70-100) mg/dL 84 Calcium (8.5-10.1) mg/dL 9.1 Magnesium (1.8-2.4) mg/dL 1.8 Total Bilirubin (0.2-1.0) mg/dL 0.7 AST (15-37) U/L 76 H ALT (14-59) U/L 64 H Alkaline Phosphatase (46-116) U/L 144 H Troponin I (0.00-0.06) ng/mL < 0.05 Total Protein (6.4-8.2) g/dL 7.8 Albumin (3.4-5.0) g/dL 3.6 Serum HCG, Qual Negative Range/Units 01/30/19 20:24 WBC (4.4-10.8) k/cumm RBC (4.00-5.20) m/cumm Hgb (12.0-15.5) g/dL Hct (36.0-46.0) % MCV (80-95) fL MCH (27.0-33.0) pg MCHC (32.0-36.0) g/dL RDW (11.7-14.6) % Plt Count (130-400) x1000/uL MPV (8.0-11.0) fL Immature Gran % Neutrophils % Lymphocytes % Monocytes % Eosinophils % Basophils % Absolute Neutrophils (1.2-6.7) k/cumm Absolute Lymphocytes (1.2-3.4) k/cumm Absolute Monocytes (0.11-0.7) k/cumm Absolute Eosinophils (0.0-0.7) k/cumm Absolute Basophils (0.0-0.2) k/cumm Sodium (136-145) mmol/L Potassium (3.5-5.1) mmol/L Chloride (98-107) mmol/L Carbon Dioxide (21.0-32.0) mmol/L Anion Gap (3-11) mmol/L BUN (7-18) mg/dL Creatinine (0.55-1.02) mg/dL Estimated GFR/1.73 m2 (mL/min/1.73m2) Glucose (70-100) mg/dL Calcium (8.5-10.1) mg/dL Magnesium (1.8-2.4) mg/dL Total Bilirubin (0.2-1.0) mg/dL AST (15-37) U/L ALT (14-59) U/L Alkaline Phosphatase (46-116) U/L Troponin I (0.00-0.06) ng/mL Cancelled Total Protein (6.4-8.2) g/dL Albumin (3.4-5.0) g/dL Serum HCG, Qual ECG Data Attestation: I personally reviewed and interpreted this ECG (s) as follows: Interpretation: Rate of 94, sinus, no acute ST elevation or depression. [place] 124. QTc 465. QRS 110. HPI General Mode of arrival: ambulatory . Date/Time Provider Initiated Documentation: 01/30/19 17:02 . Limitations to Documentation: no limitations . Information obtained by: patient . HPI Narrative: Patient is a 28-year-old female who is 3 years status post right ophthalmic aneurysm coiling and 9 days status post left ophthalmic aneurysm coiling who presents with multiple syncopal episodes and fall in bathtub today. Patient states she fell while in the bathtub last night hitting her abdomen and both legs on the edge of the tub. She states today she also had several syncopal episodes up to 15 and number. She admits to headache, neck pain, facial pain, chest pain, abdominal pain, back pain, bilateral thigh, bilateral knee, bilateral lower leg and bilateral feet pain. She is on methadone due to history of IV drug abuse. Related Data Home Medications Medication Instructions Recorded Confirmed methadone [Dolophine] 120 mg PO DAILY 12/25/15 10/22/18 acetaminophen [Mapap Extra 1,000 mg PO Q6H 5 Days #60 tab 11/19/17 10/22/18 Strength] albuterol sulfate 1 puff INHALATION Q6H PRN 02/03/18 10/22/18 paroxetine HCl [Paxil] 20 mg PO HS 02/03/18 10/22/18 docusate sodium [Docusil] 100 mg PO DAILY #60 cap 07/01/18 10/22/18 Flovent HFA 1 puff INHALATION BID 10/17/18 10/22/18 amitriptyline 25 mg PO QHS 10/17/18 10/22/18 aspirin [Aspir-81] 81 mg PO DAILY 10/17/18 10/22/18 clopidogrel [Plavix] 75 mg PO DAILY 10/17/18 10/22/18 ferrous gluconate 324 mg PO DAILY 10/17/18 10/22/18 gabapentin 100 mg PO TID 10/17/18 10/22/18 hydroxyzine HCl 25 mg PO TID 10/17/18 10/22/18 lisinopril 5 mg PO DAILY 10/17/18 10/22/18 metoprolol succinate 50 mg PO DAILY 10/17/18 10/22/18 naproxen 375 mg PO TID PRN 10/17/18 10/22/18 ondansetron HCl 4 mg PO TID PRN 10/17/18 10/22/18 ranitidine HCl 150 mg PO BID 10/17/18 10/22/18 sumatriptan succinate [Imitrex] 100 mg PO DIRECTED PRN 10/17/18 10/22/18 epinephrine 0.3 mg IM ONCE PRN #1 each 10/22/18 tizanidine 4 mg PO TID PRN #10 tab 01/30/19 Previous Rx's Medication Instructions Recorded acetaminophen [Mapap Extra 1,000 mg PO Q6H 5 Days #60 tab 11/19/17 Strength] docusate sodium [Docusil] 100 mg PO DAILY #60 cap 07/01/18 epinephrine 0.3 mg IM ONCE PRN #1 each 10/22/18 tizanidine 4 mg PO TID PRN #10 tab 01/30/19 Allergies Allergy/AdvReac Type Severity Reaction Status Date / Time meperidine HCl [From Demerol] Allergy Severe Anaphylaxsi Unverified 10/17/18 16:02 s venom-honey bee Allergy Severe anaphylaxis Unverified 10/17/18 16:02 [bee venom (honey bee)] lithium AdvReac Mild NAUSEA Unverified 10/17/18 16:02 sertraline HCl [From Zoloft] AdvReac Mild NIGHTMARES Unverified 10/17/18 16:02 General Stated Complaint: CVA/TIA KALINA: 2 Review of Systems Review of Systems ROS Unobtainable: All systems reviewed & are unremarkable except as noted in HPI and below Constitutional Constitutional: Reports as per HPI, Denies chills, Denies fever(s) and Reports headache(s) Eyes Eyes: Denies blurry vision ENT Ears, Nose, Mouth, and Throat: Denies dizziness, Reports headache(s), Reports neck pain, Denies sore throat and Denies throat swelling Cardiovascular Cardiovascular: Reports chest pain and Denies dyspnea Respiratory Respiratory: Denies cough and Denies dyspnea Gastrointestinal Gastrointestinal: Denies abdominal pain, Denies diarrhea and Denies vomiting Genitourinary Genitourinary: Denies hematuria and Denies dysuria Musculoskeletal Musculoskeletal: Reports back pain, Reports neck pain and Denies numbness Comments: b/l arm and leg pain Integumentary/Breasts Skin/Breast: Denies lesions and Denies rash Neurologic Neurologic: Denies dizziness, Reports headache(s), Denies focal weakness and Denies numbness Allergic/Immunologic Allergic/Immunologic: Denies throat swelling [facility] Medical History Asthma (Chronic) Blood bacterial culture positive (Resolved) Chronic daily headache (Chronic) Community acquired bacterial pneumonia (Resolved) Depression (Chronic) Hepatitis C infection (Chronic) History of intravenous drug abuse (Chronic) Migraine headache with aura (Chronic ~2000) Nephrolithiasis (Chronic) Opioid dependence in controlled environment (Chronic) PTSD (post-traumatic stress disorder) (Chronic) Scoliosis (Chronic) Therapeutic opioid induced constipation (Resolved) Surgical History History of (Resolved) History of cerebral aneurysm repair (Resolved ~2014) S/P cystoscopy with ureteral stent placement (Resolved) S/P tubal ligation (Resolved) Status post thoracic spinal fusion (Resolved) Family History Paternal Aunt Cerebral aneurysm Social History Smoking/Tobacco Use Status: Current every day Tobacco Type: cigarettes Quit status: considering quitting Alcohol Intake: current Alcohol Intake frequency: holidays/special occasions only Alcohol type: wine Drug use: Current Sobriety Substance use type: former substance user, marijuana, crack/cocaine, heroin, opiates and IV drugs Details: former heroin and cocaine user, 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 only drugs that she uses currently is marijuana Household members: other Details: lives w/ cousin's ex- and her children Number of Children: 3 Do you feel safe at home: Yes Do you feel safe in your relationship?: Yes History History 2 Para 3 Hx # Term Pregnancies 2 Multiple births Hx # Pregnancies Ectopic pregnancies AB induced Hx Number of Living Children 3 AB spontaneous Exam Const General: cooperative and acute distress mild (saying she has pain all over) Orientation: alert, awake and oriented x3 HENMT Head: normal to inspection Face and sinus: normal facial exam Eyes General: appearance normal, both eyes and all related structures Pupils: PERRL EOM: EOM intact bilaterally Neck Neck: normal visual inspection and No submandibular swelling Lymphatic: no lymphadenopathy noted Chest Chest: normal inspection of the chest and tenderness (anterior) Resp Effort & Inspection: normal respiratory effort and able to speak in complete sentences Auscultation: clear to auscultation bilaterally Cardio Rate: regular rate Rhythm: regular rhythm GI Inspection: normal to inspection Palpation: soft, not firm, not rigid and tender (upper abdomen) Auscultation: normal bowel sounds Back/Spine/Pelvis Back: other Cervical Spine: cervical spinal tenderness Thoracic/Lumbar Spine: thoracic spinal tenderness, lumbar spinal tenderness and other (well healed scar midline T spine) Pelvis: no pain with anterior-posterior compression Skin General skin exam: no rashes or lesions noted Neuro General: alert, awake and oriented x3 Cranial Nerves: CN's II-XI intact bilaterally Cognition: normal cognition Speech: speech normal Motor: muscle tone normal throughout and strength 5/5 throughout Sensory Exam: no sensory deficits noted Extrem General: normal to inspection, full ROM, normal capillary refill, no calf tenderness bilaterally and no edema Other: Multiple areas of scattered ecchymosis to bilateral lower extremities. No obvious orthopedic deformity. Full range of motion of bilateral lower upper extremities without obvious deformity or trauma. Psych Appearance: grossly normal Mental Status: mental status grossly normal Speech and Movement: speech and movement normal Affect: normal affect Course Vital Signs Vital signs: Vital Signs Temperature 98.6 F 01/30/19 16:55 Pulse 100 H 01/30/19 16:55 Respiratory Rate 18 01/30/19 16:55 Blood Pressure 151/117 H 01/30/19 16:55 Pulse Oximetry 99 01/30/19 16:55 Temperature 98.6 F 01/30/19 16:55 Temperature Source Skin 01/30/19 16:55 Pulse 100 H 01/30/19 16:55 Respiratory Rate 18 01/30/19 16:55 Blood Pressure 151/117 H 01/30/19 16:55 Blood Pressure Position Supine 01/30/19 16:55 Pulse Oximetry 99 01/30/19 16:55 Oxygen Delivery Method Room Air 01/30/19 16:55 Oxygen Flow Rate 0 01/30/19 16:55
--- NOTE | 2019-01-30 17:09 | NUR.NOTE ---
Nursing Note: MD Abbott at bedside to asses patient.
--- NOTE | 2019-01-30 17:20 | NUR.NOTE ---
Nursing Note: pt c/o cervical tenderness. pt states that she blacked out 15 times today. pt states that she hit her head ever time that she blacked out
--- NOTE | 2019-01-30 17:21 | DI.RAD_ITS ---
EXAM: XR FOOT LT COMPLETE INDICATION: s/p fall, r/o acute process. COMPARISON: No exams were available for comparison TECHNIQUE: 2D digital imaging was performed. FINDINGS: Three views were obtained. Prior 1st metatarsal osteotomy noted. Two fixation pins in place. No ev idence of acute fracture. IMPRESSION:
--- NOTE | 2019-01-30 17:21 | DI.CT_ITS ---
EXAM: CT CHEST/ABD/PEL W CLINICAL HISTORY: s/p fall, r/o acute process. TECHNIQUE: COMPARISON: CT BRAIN NECK CTA from 10/17/2018 FINDINGS: CT examination of the chest abdomen pelvis was performed with intravenous infusion 100 cc of Omnipaqu e 350. No fracture identified in the region surveyed. Tejeda rods noted in place in the thoraci c spine. No Please note that marked motion artifact limits evaluation of visceral organs. Lungs are clear. No pleural effusion. No he hemo thorax. Note tracheobronchial injury. No mediast inal injury. No vascular injury. Liver and spleen grossly unremarkable. Pancreas grossly intact. Gallbladder and bile ducts normal. Adrenals and kidneys unremarkable. No abdominal or pelvic vascular injury. No abdominal wall herni a or hematoma. Trace free fluid in the pelvis, nonspecific. No bowel injury or obstruction. IMPRESSION: CT reconstructions of the thoracic and lumbar spine were also obtained and show no evidence of fractu re. Conclusion no evidence of injury of the chest abdomen or pelvis.
--- NOTE | 2019-01-30 17:21 | DI.CT_ITS ---
EXAM: CT HEAD CERV SPINE FACIAL WO CLINICAL HISTORY: s/p fall, syncope, r/o acute process. TECHNIQUE: COMPARISON: No exams were available for comparison FINDINGS: Noncontrast cranial CT was performed. There an old area of apparent right frontal encephalomalacia. Prior annulus aneurysm clips in region of the right ICA and left ICA stent noted. No evidence of ac blu intracranial hemorrhage mass effect or midline shift. No calvarial fracture identified. Noncontrast CT examination of the cervical spine was obtained. No cervical adenopathy or mass. One point 2 cm right thyroid gland mass should be evaluated ultrasonographically. No additional mass [place] ntified. Tracheolaryngeal structures appear intact. No cervical fracture or dislocation. Multi slice facial CT obtained. No facial fracture. Orbital structures appear intact. Incidental c oncha bullosa right middle turbinate. Otherwise paranasal sinuses unremarkable as are the mastoid ai r cells. IMPRESSION: No evidence of acute injury to head neck or facial region. No intracranial hemorrhage.
--- NOTE | 2019-01-30 17:27 | DI.RAD_ITS ---
EXAM: XR FEMUR LT INDICATION: s/p fall, r/o acute fracture. COMPARISON: XR FEMUR RT from 01/30/2019 TECHNIQUE: 2D digital imaging was performed. FINDINGS: Four views of the femur were obtained. No fracture or other bony abnormality identified. IMPRESSION:
--- NOTE | 2019-01-30 17:27 | DI.RAD_ITS ---
EXAM: XR KNEE RT 3V AP,LAT,TERENCE INDICATION: s/p fall, r/o acute fracture. COMPARISON: No exams were available for comparison TECHNIQUE: 2D digital imaging was performed. FINDINGS: Three views were obtained. No fracture is identified. IMPRESSION:
--- NOTE | 2019-01-30 17:28 | DI.RAD_ITS ---
EXAM: XR TIB/FIB RT INDICATION: s/p fall, r/o acute fracture. COMPARISON: No exams were available for comparison TECHNIQUE: 2D digital imaging was performed. FINDINGS: Four views were obtained. No fracture is identified. IMPRESSION:
--- NOTE | 2019-01-30 17:33 | NUR.NOTE ---
Nursing Note: call out to CT scan to have patient transported. no answer. will attempt again
[2019-01-30 17:35] LABS: Abs Immature Grans 0.03 k/cumm (0.0-0.09); Absolute Basophil Count 0.01 k/cumm (0.0-0.2); Absolute Eosinophil Count 0.32 k/cumm (0.0-0.7); Absolute Lymphocyte Count 2.13 k/cumm (1.2-3.4); Absolute Monocyte Count 0.56 k/cumm (0.11-0.7); Absolute Neutrophil Count 3.83 k/cumm (1.2-6.7); Basophils % 0.1; Eosinophils % 4.7; HCT 33.2 % (36.0-46.0); HGB 10.8 g/dL (12.0-15.5); Immature Grans % 0.4; Mean Corp. HGB Concentration 32.5 g/dL (32.0-36.0); Mean Corpuscular Hemoglobin 30.4 pg (27.0-33.0); Mean Corpuscular Volume 93.5 fL (80-95); Mean Platelet Volume 10.5 fL (8.0-11.0); Monocytes % 8.1; Neutrophils % 55.7; Platelet Count 305 x1000/uL (130-400); RBC 3.55 m/cumm (4.00-5.20); RBC Distribution Width 12.9 % (11.7-14.6); White Blood Cell Count 6.88 k/cumm (4.4-10.8)
--- NOTE | 2019-01-30 17:45 | NUR.NOTE ---
Nursing Note: pt to CT scan with RN on monitor.
[2019-01-30] MEDS: Omnipaque 350 MG/ML 100 ML BTL IJ (17:53)
[2019-01-30] MEDS: Normal Saline Flush 10 ML SYR IVP (17:53)
[2019-01-30 17:57] LABS: HCG Qual (Serum) Negative
[2019-01-30 17:59] LABS: ALT 64 U/L (14-59); AST 76 U/L (15-37); Albumin 3.6 g/dL (3.4-5.0); Alkaline Phosphatase 144 U/L (46-116); Anion Gap 10.4 mmol/L (3-11); BUN 25 mg/dL (7-18); Bilirubin, Total 0.7 mg/dL (0.2-1.0); CO2 27.6 mmol/L (21.0-32.0); CREATININE 1.18 mg/dL (0.55-1.02); Calcium 9.1 mg/dL (8.5-10.1); Chloride 105 mmol/L (98-107); Estimated GFR 54.15 (mL/min/1.73m2); Glucose 84 mg/dL (70-100); Magnesium 1.8 mg/dL (1.8-2.4); Potassium 3.3 mmol/L (3.5-5.1); Sodium 143 mmol/L (136-145); Total Protein 7.8 g/dL (6.4-8.2)
[2019-01-30 18:04] LABS: Troponin I < 0.05 ng/mL (0.00-0.06)
--- NOTE | 2019-01-30 18:59 | DI.RAD_ITS ---
EXAM: XR FEMUR RT INDICATION: s/p fall, r/o fracture. COMPARISON: XR TIB/FIB RT from 01/30/2019 TECHNIQUE: 2D digital imaging was performed. FINDINGS: Four views were obtained. No fracture is seen. IMPRESSION:
--- NOTE | 2019-01-30 19:09 | DI.VRAD_ITS ---
PROCEDURE INFORMATION: Exam: CT Head Without Contrast Exam date and time: 01/30/2019 5:26 PM Clinical history: 28 years old, female; Face pain; Neck pain; Prior surgery; Surgery date: 6+ months; Surgery type: HX of many strokes, TECHNIQUE: Imaging protocol: Computed tomography of the head without contrast. Radiation optimization: All CT scans at this facility use at least one of these dose optimization techniques: automated exposure control; mA and/or kV adjustment per patient size (includes targeted exams where dose is matched to clinical indication); or iterative reconstruction. COMPARISON: CT HEAD WO 10/17/2018 4:28 PM FINDINGS: Brain: A region of encephalomalacia in the right frontal lobe may be from prior infarct. There is no acute intracranial hemorrhage, mass effect or midline shift. Ventricles: Normal. No ventriculomegaly. Bones/joints: Unremarkable. No acute fracture. Sinuses: Visualized sinuses are unremarkable except for mild mucosal thickening in the ethmoid sinuses. No fluid levels. Mastoid air cells: Visualized mastoid air cells are well aerated. Soft tissues: Unremarkable. Vasculature: An aneurysm coil is seen in the region of the right internal carotid artery. There is streak artifact from this coil mass, limiting evaluation of the adjacent brain parenchyma. A left internal carotid artery stent is noted in the cavernous and supraclinoid segments. IMPRESSION: No acute intracranial hemorrhage, mass effect or midline shift. PROCEDURE INFORMATION: Exam: CT Maxillofacial Without Contrast Exam date and time: 01/30/2019 5:26 PM Clinical history: 28 years old, female; Face pain; Neck pain; Prior surgery; Surgery date: 6+ months; Surgery type: HX of many strokes, TECHNIQUE: Imaging protocol: Computed tomography images of the face without contrast. Radiation optimization: All CT scans at this facility use at least one of these dose optimization techniques: automated exposure control; mA and/or kV adjustment per patient size (includes targeted exams where dose is matched to clinical indication); or iterative reconstruction. COMPARISON: CT HEAD WO 10/17/2018 4:28 PM FINDINGS: Orbits: Orbits are normal. Globes are unremarkable. Sinuses: There is mild mucosal thickening in ethmoid sinuses. No air-fluid levels. Bones/joints: There is pneumatization of the right middle turbinate with leftward deviation of the nasal septum. Soft tissues: Unremarkable. IMPRESSION: No acute findings. PROCEDURE INFORMATION: Exam: CT Cervical Spine Without Contrast Exam date and time: 01/30/2019 5:26 PM Clinical history: 28 years old, female; Face pain; Neck pain; Prior surgery; Surgery date: 6+ months; Surgery type: HX of many strokes, TECHNIQUE: Imaging protocol: Computed tomography images of the cervical spine without contrast. Radiation optimization: All CT scans at this facility use at least one of these dose optimization techniques: automated exposure control; mA and/or kV adjustment per patient size (includes targeted exams where dose is matched to clinical indication); or iterative reconstruction. COMPARISON: CT HEAD WO 10/17/2018 4:28 PM FINDINGS: Vertebrae: No acute fracture. Normal alignment. Posterior spinal fusion in the thoracic spine is partially visualized. Discs/Spinal canal/Neural foramina: No spinal stenosis. No neural foraminal narrowing. Soft tissues: Unremarkable. Thyroid: A 1.5 cm region of hypodensity seen in the right thyroid gland, which may represent a nodule. Lungs: Lung apices are normal. IMPRESSION: 1. No acute fracture or listhesis. 2. 1.5 cm region of hypodensity in the right thyroid gland which may represent a nodule. A nonemergent ultrasound is recommended for further evaluation. Dictated and Authenticated by: Deyanira Barraza MD. Ordering:HALIMA Duncan MD
--- NOTE | 2019-01-30 19:26 | DI.VRAD_ITS ---
PROCEDURE INFORMATION: Exam: XR Left Femur Exam date and time: 01/30/2019 6:50 PM Clinical history: 28 years old, female; Pain; Thigh; Left TECHNIQUE: Imaging protocol: XR Left femur. Views: 2 views. COMPARISON: No relevant prior studies available. FINDINGS: Bones/joints: Unremarkable. No acute fracture. Soft tissues: Unremarkable. IMPRESSION: No acute findings. Dictated and Authenticated by: Deyanira Barraza MD. Ordering:HALIMA Duncan MD
--- NOTE | 2019-01-30 19:26 | DI.VRAD_ITS ---
PROCEDURE INFORMATION: Exam: CT Chest With Contrast Exam date and time: 01/30/2019 5:53 PM Clinical history: 28 years old, female; Injury or trauma; Fall; Initial encounter; Generalized; Blunt trauma (contusions or hematomas); Injury date: Unknown TECHNIQUE: Imaging protocol: Computed tomography of the chest with intravenous contrast. Radiation optimization: All CT scans at this facility use at least one of these dose optimization techniques: automated exposure control; mA and/or kV adjustment per patient size (includes targeted exams where dose is matched to clinical indication); or iterative reconstruction. COMPARISON: CT Vascular^PE XXL (Adult) 03/26/2018 3:01 PM FINDINGS: Lungs: Unremarkable. No consolidation. No masses. Pleural space: Unremarkable. No pneumothorax. No pleural effusion. Heart: Unremarkable. No cardiomegaly. No pericardial effusion. Aorta: Unremarkable. No aortic aneurysm. Lymph nodes: Unremarkable. No enlarged lymph nodes. Bones/joints: Unremarkable. No acute fracture. Soft tissues: Unremarkable. IMPRESSION: No acute findings. PROCEDURE INFORMATION: Exam: CT Abdomen And Pelvis With Contrast Exam date and time: 01/30/2019 5:53 PM Clinical history: 28 years old, female; Injury or trauma; Fall; Initial encounter; Generalized; Blunt trauma (contusions or hematomas); Injury date: Unknown TECHNIQUE: Imaging protocol: Computed tomography of the abdomen and pelvis with intravenous contrast. Radiation optimization: All CT scans at this facility use at least one of these dose optimization techniques: automated exposure control; mA and/or kV adjustment per patient size (includes targeted exams where dose is matched to clinical indication); or iterative reconstruction. Contrast material: OMNIPAQUE 350; Contrast volume: 100 ml; Contrast route: IV; COMPARISON: CT Vascular^PE XXL (Adult) 03/26/2018 3:01 PM FINDINGS: The study is slightly limited secondary to motion and streak artifact from spinal hardware. Liver: Normal. No mass. Gallbladder and bile ducts: Normal. No calcified stones. No ductal dilation. Pancreas: Normal. No ductal dilation. Spleen: Normal. No splenomegaly. Adrenals: Normal. No mass. Kidneys and ureters: Normal. No hydronephrosis. Stomach and bowel: Unremarkable. No obstruction. No mucosal thickening. Appendix: No evidence of appendicitis. Intraperitoneal space: A small amount of fluid is seen in the left pelvis and left groin. No free air. No significant fluid collection. Vasculature: Unremarkable. No abdominal aortic aneurysm. Lymph nodes: Unremarkable. No enlarged lymph nodes. Bladder: Unremarkable as visualized. Reproductive: Unremarkable as visualized. Bones/joints: No acute fracture. There is a dextroscoliotic curvature of the thoracic spine status post posterior fusion. 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 Soft tissues: Unremarkable. IMPRESSION: 1. Limited examination due to motion and streak artifact. Within this limitation, no evidence of solid organ injury. 2. Small amount of fluid in the left pelvis, may be related to trace hematoma from acute trauma versus benign pelvic free fluid. Dictated and Authenticated by: Deyanira Barraza MD. Ordering:HALIMA Duncan MD
--- NOTE | 2019-01-30 19:26 | DI.VRAD_ITS ---
PROCEDURE INFORMATION: Exam: XR Right Tibia and Fibula Exam date and time: 01/30/2019 6:50 PM Clinical history: 28 years old, female; Pain; Lower leg; Right TECHNIQUE: Imaging protocol: XR Right tibia and fibula. Views: 2 views. COMPARISON: No relevant prior studies available. FINDINGS: Bones/joints: Normal. Soft tissues: Normal. IMPRESSION: No acute findings. Dictated and Authenticated by: Deyanira Barraza MD. Ordering:HALIMA Duncan MD
--- NOTE | 2019-01-30 19:27 | DI.VRAD_ITS ---
PROCEDURE INFORMATION: Exam: XR Right Femur Exam date and time: 01/30/2019 6:49 PM Clinical history: 28 years old, female; Pain; Thigh; Right TECHNIQUE: Imaging protocol: XR Right femur. Views: 2 views. COMPARISON: CR XR TIB/FIB RT 01/30/2019 6:12 PM FINDINGS: Bones/joints: Unremarkable. No acute fracture. Soft tissues: Unremarkable. IMPRESSION: No acute findings. Dictated and Authenticated by: Deyanira Barraza MD. Ordering:HALIMA Duncan MD
--- NOTE | 2019-01-30 19:29 | DI.VRAD_ITS ---
PROCEDURE INFORMATION: Exam: XR Left Foot Complete Exam date and time: 01/30/2019 6:49 PM Clinical history: 28 years old, female; Pain; Foot; Left TECHNIQUE: Imaging protocol: XR Left foot. Views: 3 or more views. COMPARISON: No relevant prior studies available. FINDINGS: Bones/joints: The patient is status post left first metatarsal head osteotomy and pinning. No acute fracture or dislocation. The alignment is anatomic. Soft tissues: Normal. IMPRESSION: No acute fracture or dislocation. Dictated and Authenticated by: Deyanira Barraza MD. Ordering:HALIMA Duncan MD
--- NOTE | 2019-01-30 19:31 | DI.VRAD_ITS ---
PROCEDURE INFORMATION: Exam: XR Right Knee Exam date and time: 01/30/2019 6:50 PM Clinical history: 28 years old, female; Pain; Knee; Right TECHNIQUE: Imaging protocol: XR Right knee. Views: 3 views. COMPARISON: CR XR TIB/FIB RT 01/30/2019 6:12 PM FINDINGS: Bones/joints: Normal. Soft tissues: Normal. IMPRESSION: No acute findings. Dictated and Authenticated by: Deyanira Barraza MD. Ordering:HALIMA Duncan MD
[2019-01-30] MEDS: ACETAMINOPHEN 1,000 MG/100 ML BTL 400 MG IVPB (20:15)
--- NOTE | 2019-01-30 20:30 | NUR.NOTE ---
Nursing Note: report given to kayli
--- NOTE | 2019-01-31 14:19 | CMPROGNOTE_ITS ---
Care Management Progress Note Follow up prior authorization for [facility] coordinated transport via the [employer]. Vickie of [employer] called and and requested prior authorization as [facility] will not pay as Ghada found another ride. CM faxed prior authorization.
== END 2019-01-30 23:25 | disposition home or self-care (01) ==
PROVIDERS: Emergency Provider Physician Assistant; PCP Nurse Practitioner Family
DX: R55 Syncope and collapse (principal); S80.01XA Contusion of right knee, initial encounter; S80.11XA Contusion of right lower leg, initial encounter; S70.11XA Contusion of right thigh, initial encounter; S90.32XA Contusion of left foot, initial encounter; I10 Essential (primary) hypertension; W18.2XXA Fall in (into) shower or empty bathtub, initial encounter; Z98.890 Other specified postprocedural states
CPT/HCPCS: 36415; 73552; 73562; 74177; 80053; 93005; 96374; 96375; 99285; 70450; 70486; 71260; 72125; 73590; 73630; 83735; 84484; 84703; 85025; 93010; J0131; J3490

== ENCOUNTER 2019-04-03 10:27 | Outpatient (CLI) | payer MEDICAID, SELFPAY ==
--- NOTE | 2019-04-03 12:40 | DI.US_ITS ---
EXAM: US SOFT TISSUE EXTREMITY CLINICAL HISTORY: LT LEG LUMP R22.9 TECHNIQUE: Ultrasound performed using standard protocol. FINDINGS: There is a 1.2 x 0.7 x 1.2 centimeter irregular hypoechoic region in the subcutaneous tissues of the left calf corresponding to the palpable abnormality. The area appears to represent complex fluid. No solid component is seen. This may represent a resolving hematoma or seroma in the appropriate clinica l setting. IMPRESSION: 1.2 x 0.7 x 1.2 centimeter complex fluid collection in the subcutaneous tissues of the calf. This cor responds to the palpable abnormality. In the appropriate clinical setting, this may represent a hemat ayse or seroma.
== END 2019-04-03 10:47 ==
PROVIDERS: PCP Nurse Practitioner Family; Visit Provider Nurse Practitioner Family
DX: R22.42 Localized swelling, mass and lump, left lower limb (principal)
CPT/HCPCS: 76881

== ENCOUNTER 2019-05-15 15:16 | Emergency (ER) | payer MEDICAID, SELFPAY ==
[2019-05-15 15:28] VITALS: BP 143/84; PULSE 74; RESP 16; TEMP 36.5; O2SAT 96
--- NOTE | 2019-05-15 16:03 | W.ED.GENAD ---
Discharge Plan Disposition Patient Disposition: HOME Condition: Stable Discharge Details Chief Complaint: Headache Clinical Impression: Headache Primary Care Provider: Frances Sorensen ED Provider: Andres Garcia Home Meds and New Rx's Prescriptions: Continued methadone [Dolophine] 10 MG tablet 116 mg PO DAILY RF: 0 acetaminophen [Mapap Extra Strength] 500 MG tablet 1,000 mg PO Q6H 5 Days Qty: 60 RF: 0 paroxetine HCl [Paxil] 10 mg Tablet 20 mg PO HS RF: 0 albuterol sulfate 90 mcg/actuation Hfa Aerosol Inhaler 1 puff INHALATION Q6H PRNRF: 0 docusate sodium [Docusil] 100 mg capsule 100 mg PO DAILY Qty: 60 RF: 0 epinephrine 0.3 mg/0.3 mL auto-injector 0.3 mg IM ONCE PRN (Reason: anaphylaxis) Qty: 1 RF: 1 tizanidine 4 mg Tablet 4 mg PO TID PRN (Reason: muscle spasticity) Qty: 10 RF: 0 ondansetron HCl 4 mg Tablet 4 mg PO TID PRNRF: 0 clopidogrel [Plavix] 75 mg Tablet 75 mg PO DAILY RF: 0 aspirin [Aspir-81] 81 mg Tablet,Delayed Release (Dr/Ec) 81 mg PO DAILY RF: 0 hydroxyzine HCl 25 mg Tablet 25 mg PO TID RF: 0 Flovent HFA 220 mcg/actuation Hfa Aerosol Inhaler 1 puff INHALATION BID RF: 0 lisinopril 5 mg Tablet 5 mg PO DAILY RF: 0 metoprolol succinate 25 mg Tablet Extended Release 24 Hr 50 mg PO DAILY RF: 0 naproxen 375 mg Tablet,Delayed Release (Dr/Ec) 375 mg PO TID PRNRF: 0 ferrous gluconate 324 mg (37.5 mg iron) Tablet 324 mg PO DAILY RF: 0 pregabalin [Lyrica] 75 mg Capsule See Rx Instructions .ROUTE .COMPLEX RF: 0 Discharge Instructions Instructions: General Headache (ED) Additional Instructions: follow up with your surgeon and primary care provider within 1-2 weeks if you have severe worsening pain, persistent vomit or fevers return to the emergency department Medical Decision Making 28 hyo female with prior history of brain aneurysms and prior stent placement last year comes in with 1 week of generalized headache with nausea. No fevers, neck stiffness, falls, recent trauma. She arrives in no distress with normal gait and no focal motor or sensation deficitis and CN II-XII are intact and is laughing and eating in no distress prior to my exam. She does get frequent headaches. HAd long discussion about ct and cta given number of prior ct's and after discussion of risks benefits she would like to proceed with imaging. Will obtain imaging and treat likely migraine. She has no findings on history or physical exam to suggest entities such as migration agent infection, cerebral venous thrombosis or central cavernous thrombosis pt feels significantly better after meds of compazine and decadron and still no deficits on neuro exam. Imaging shows no new acute findings. she feels well enough to go home and would like d/c. She is going to f/u with her surgeon and return precautions given Differential Diagnosis Differential Diagnosis: migraine, tension headache, aneurysm Imaging Data Radiologic Study: Attestation: I personally reviewed and interpreted this imaging study as follows: Imaging: CT Scan Radiologist's impression: no acute findings Lab Data Lab results reviewed: Yes I reviewed the patient's lab results. HPI General Mode of arrival: ambulatory. Date/Time Provider Initiated Documentation: 05/15/19 15:54. Limitations to Documentation: no limitations. Information obtained by: patient. History of Present Illness 28 year old F presents to the emergency department with the chief complaint of head pain, described as moderate, Patient started experiencing this week(s) (1) and it has been constant. No relieving factors improve symptom(s), No exacerbating factors reported . Patient did receive the following treatments prior to arrival, none Related Data Home Medications Medication Instructions Recorded Confirmed methadone [Dolophine] 116 mg PO DAILY 12/25/15 05/15/19 acetaminophen [Mapap Extra 1,000 mg PO Q6H 5 Days #60 tab 11/19/17 05/15/19 Strength] albuterol sulfate 1 puff INHALATION Q6H PRN 02/03/18 05/15/19 paroxetine HCl [Paxil] 20 mg PO HS 02/03/18 05/15/19 docusate sodium [Docusil] 100 mg PO DAILY #60 cap 07/01/18 05/15/19 Flovent HFA 1 puff INHALATION BID 10/17/18 05/15/19 aspirin [Aspir-81] 81 mg PO DAILY 10/17/18 05/15/19 clopidogrel [Plavix] 75 mg PO DAILY 10/17/18 05/15/19 ferrous gluconate 324 mg PO DAILY 10/17/18 05/15/19 hydroxyzine HCl 25 mg PO TID 10/17/18 05/15/19 lisinopril 5 mg PO DAILY 10/17/18 05/15/19 metoprolol succinate 50 mg PO DAILY 10/17/18 05/15/19 naproxen 375 mg PO TID PRN 10/17/18 05/15/19 ondansetron HCl 4 mg PO TID PRN 10/17/18 05/15/19 epinephrine 0.3 mg IM ONCE PRN #1 each 10/22/18 05/15/19 tizanidine 4 mg PO TID PRN #10 tab 01/30/19 05/15/19 pregabalin [Lyrica] See Rx Instructions .ROUTE .COMPLEX 05/15/19 05/15/19 Previous Rx's Medication Instructions Recorded acetaminophen [Mapap Extra 1,000 mg PO Q6H 5 Days #60 tab 11/19/17 Strength] docusate sodium [Docusil] 100 mg PO DAILY #60 cap 07/01/18 epinephrine 0.3 mg IM ONCE PRN #1 each 10/22/18 tizanidine 4 mg PO TID PRN #10 tab 01/30/19 Allergies Allergy/AdvReac Type Severity Reaction Status Date / Time meperidine HCl [From Demerol] Allergy Severe Anaphylaxsi Unverified 05/15/19 15:35 s venom-honey bee Allergy Severe anaphylaxis Unverified 05/15/19 15:35 [bee venom (honey bee)] lithium AdvReac Mild NAUSEA Unverified 05/15/19 15:35 sertraline HCl [From Zoloft] AdvReac Mild NIGHTMARES Unverified 05/15/19 15:35 General Stated Complaint: Headache KALINA: 2 Review of Systems All systems reviewed & are unremarkable except as noted in HPI and below Constitutional Constitutional: Denies chills, Denies fever(s) and Denies weakness ENT Ears, Nose, Mouth, and Throat: Denies change in voice Cardiovascular Cardiovascular: Denies chest pain and Denies dyspnea Respiratory Respiratory: Denies cough and Denies dyspnea Gastrointestinal Gastrointestinal: Denies abdominal pain Musculoskeletal Musculoskeletal: Denies joint swelling Neurologic Neurologic: Denies weakness [facility] Social History Smoking/Tobacco Use Status: Current every day Tobacco Type: cigarettes Quit status: considering quitting Alcohol Intake: current Alcohol Intake frequency: holidays/special occasions only Alcohol type: wine Drug use: Current Sobriety Substance use type: former substance user, marijuana, crack/cocaine, heroin, opiates and IV drugs Details: former heroin and cocaine user, 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 only drugs that she uses currently is marijuana Household members: other Details: lives w/ cousin's ex- and her children Number of Children: 3 Do you feel safe at home: Yes Do you feel safe in your relationship?: Yes History History 2 Para 3 Hx # Term Pregnancies 2 Multiple births Hx # Pregnancies Ectopic pregnancies AB induced Hx Number of Living Children 3 AB spontaneous Exam Const General: no acute distress Orientation: alert HENMT Head: normal to inspection Ears: external ears normal General nose exam: external nose normal Mouth: moist mucous membranes Eyes General: appearance normal, both eyes and all related structures Neck Neck: normal visual inspection Resp Effort & Inspection: normal respiratory effort and able to speak in complete sentences Cardio Rate: regular rate Skin General skin exam: no rashes or lesions noted Neuro General: alert and oriented x3 Extrem General: normal to inspection Psych Mental Status: mental status grossly normal Course Vital Signs Vital signs: Vital Signs Temperature 36.5 C 05/15/19 15:28 Pulse 74 05/15/19 15:28 Respiratory Rate 16 05/15/19 15:28 Blood Pressure 143/84 H 05/15/19 15:28 Pulse Oximetry 96 05/15/19 15:28 Temperature 36.5 C 05/15/19 15:28 Temperature Source Skin 05/15/19 15:28 Pulse 74 05/15/19 15:28 Respiratory Rate 16 05/15/19 15:28 Respiratory Effort Non-Labored 05/15/19 15:33 Blood Pressure 143/84 H 05/15/19 15:28 Blood Pressure Position Sitting 05/15/19 15:28 Pulse Oximetry 96 05/15/19 15:28 Oxygen Delivery Method Room Air 05/15/19 15:28 Oxygen Flow Rate 0 05/15/19 15:28 Pain Level 8 05/15/19 15:33
[2019-05-15] MEDS: Normal Saline 1,000 ML 1000 ML IV (16:15)
[2019-05-15] MEDS: Normal Saline Flush 10 ML SYR IVP (16:15)
[2019-05-15] MEDS: Dexamethasone 10 MG/ML VIAL IVP (16:26)
[2019-05-15] MEDS: Prochlorperazine 10 MG/2 ML VIAL IVP (16:27)
[2019-05-15 16:28] LABS: Abs Immature Grans 0.01 k/cumm (0.0-0.09); Absolute Basophil Count 0.01 k/cumm (0.0-0.2); Absolute Eosinophil Count 0.24 k/cumm (0.0-0.7); Absolute Lymphocyte Count 2.76 k/cumm (1.2-3.4); Absolute Monocyte Count 0.57 k/cumm (0.11-0.7); Absolute Neutrophil Count 3.44 k/cumm (1.2-6.7); Basophils % 0.1; Eosinophils % 3.4; HCT 33.9 % (36.0-46.0); HGB 10.7 g/dL (12.0-15.5); Immature Grans % 0.1 %; Lymphocytes % 39.3; Mean Corp. HGB Concentration 31.6 g/dL (32.0-36.0); Mean Corpuscular Hemoglobin 28.8 pg (27.0-33.0); Mean Corpuscular Volume 91.1 fL (80-95); Mean Platelet Volume 10.4 fL (8.0-11.0); Monocytes % 8.1; Platelet Count 283 x1000/uL (130-400); RBC 3.72 m/cumm (4.00-5.20); RBC Distribution Width 13.5 % (11.7-14.6); White Blood Cell Count 7.03 k/cumm (4.4-10.8)
[2019-05-15 16:39] LABS: ALT 33 U/L (14-59); AST 26 U/L (15-37); Alkaline Phosphatase 123 U/L (46-116); Anion Gap 5.7 mmol/L (3-11); BUN 16 mg/dL (7-18); Bilirubin, Total 0.1 mg/dL (0.2-1.0); CO2 30.3 mmol/L (21.0-32.0); CREATININE 0.61 mg/dL (0.55-1.02); Calcium 8.1 mg/dL (8.5-10.1); Chloride 104 mmol/L (98-107); Glucose 68 mg/dL (74-106); Magnesium 1.5 mg/dL (1.8-2.4); Potassium 3.9 mmol/L (3.5-5.1); Sodium 140 mmol/L (136-145); Total Protein 6.7 g/dL (6.4-8.2)
[2019-05-15 16:59] LABS: PTT Activated 25.5 sec (21.0-31.4); Prothrombin Time 9.6 sec (9.3-11.0)
--- NOTE | 2019-05-15 17:10 | DI.CT_ITS ---
EXAM: CT BRAIN CTA CLINICAL HISTORY: headaches, prior aneurysm stenting TECHNIQUE: Head CT without followed by axial CT angiography was performed with multi-slice acquisiti on and multi-planar and/or 3D reconstructions. COMPARISON: CT HEAD CERV SPINE FACIAL WO from 01/30/2019 CT CHEST/ABD/PEL W from 01/30/2019 FINDINGS: CT brain without: There are coils in the region of the right distal internal carotid artery consistent with prior aneur ysm coiling. There is an area of encephalomalacia involving the right frontal parietal lobe. This i s unchanged. No acute intracranial hemorrhage, midline shift or mass effect is present. The ventric les are intact. The basilar cisterns are patent. The visualized paranasal sinuses are clear. The c alvarium is intact. CT angiography of the brain: Internal carotid arteries: Right: Coils are seen in the region of the supraclinoid right internal carotid artery consistent with aneurysm coiling. The visualized portions of the right internal carotid artery are otherwise unrema rkable. Left: There is again seen a stent in the left internal carotid artery. Anterior cerebral arteries: Left: No occlusion, aneurysm or significant stenosis. Right: No occlusion, aneurysm or significant stenosis. Middle cerebral arteries: Left: No occlusion, aneurysm or significant stenosis. Right: No occlusion, aneurysm or significant stenosis. Posterior cerebral arteries: Left: No occlusion, aneurysm or significant stenosis. Right: No occlusion, aneurysm or significant stenosis. Vertebral arteries: Left: No occlusion, aneurysm or significant stenosis. Right: No occlusion, aneurysm or significant stenosis. Basilar artery: No occlusion, aneurysm or significant stenosis. IMPRESSION: 1. No acute intracranial process. 2. 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 3. Status post stent placement in the left internal carotid artery. 4. No acute arterial occlusion or significant stenosis.
[2019-05-15] MEDS: Omnipaque 350 MG/ML 100 ML BTL IJ (17:17)
[2019-05-15] MEDS: Normal Saline - Diluent 50 ML VIAL IV (17:18)
--- NOTE | 2019-05-15 17:24 | DI.VRAD_ITS ---
PROCEDURE INFORMATION: Exam: CT Angiography Head With Contrast Exam date and time: 05/15/2019 4:58 PM Age: 28 years old Clinical indication: Other: Headache, prior aneurysm stenting; Prior surgery; Surgery date: 6+ months TECHNIQUE: Imaging protocol: Computed tomography angiography of the head with intravenous contrast. 3D rendering: MIP and/or 3D reconstructed images were created by the technologist. Radiation optimization: All CT scans at this facility use at least one of these dose optimization techniques: automated exposure control; mA and/or kV adjustment per patient size (includes targeted exams where dose is matched to clinical indication); or iterative reconstruction. Contrast material: OMNIPAQUE 350; Contrast volume: 85 ml; Contrast route: IV; COMPARISON: CT BRAIN NECK CTA 10/17/2018 5:25 PM FINDINGS: Right internal carotid artery: Aneurysm coil mass in the region of the supraclinoid right ICA. Visualized portions of right ICA are patent. Right anterior cerebral artery: No occlusion or significant stenosis. No aneurysm. Right middle cerebral artery: No occlusion or significant stenosis. No aneurysm. Right posterior cerebral artery: No occlusion or significant stenosis. No aneurysm. Right vertebral artery: No occlusion or significant stenosis. No aneurysm. Left internal carotid artery: Interval placement of left ICA stent since prior CTA head from September 2018. Left ICA is patent. Left anterior cerebral artery: No occlusion or significant stenosis. No aneurysm. Left middle cerebral artery: No occlusion or significant stenosis. No aneurysm. Left posterior cerebral artery: No occlusion or significant stenosis. No aneurysm. Left vertebral artery: No occlusion or significant stenosis. No aneurysm. Basilar artery: No occlusion or significant stenosis. No aneurysm. IMPRESSION: 1. No intracranial arterial occlusion or significant stenosis. 2. Other chronic findings, as above. PROCEDURE INFORMATION: Exam: CT Head Without Contrast Exam date and time: 05/15/2019 4:58 PM Age: 28 years old Clinical indication: Other: Headache, prior aneurysm stenting; Prior surgery; Surgery date: 6+ months TECHNIQUE: Imaging protocol: Computed tomography of the head without contrast. COMPARISON: CT BRAIN NECK CTA 10/17/2018 5:25 PM FINDINGS: Brain: Coil mass in the region of the right ICA, compatible with prior aneurysm clipping. Chronic small region of encephalomalacia in the right frontal lobe. No intracranial hemorrhage or extra-axial fluid collection. No evidence of mass effect or midline shift. Scott-white matter differentiation is intact. Ventricles: No ventriculomegaly. Bones/joints: No acute osseus lesion or fracture. Sinuses: Unremarkable as visualized. Mastoid air cells: Unremarkable. Soft tissues: Unremarkable. IMPRESSION: 1. No acute intracranial pathology. 2. Other chronic findings, as above. Dictated and Authenticated by: Colt Sargent MD. Ordering:LAURA Campos MD
[2019-05-15 17:40] VITALS: BP 142/75; PULSE 96; RESP 18; TEMP 36.6; O2SAT 96
== END 2019-05-15 17:46 | disposition home or self-care (01) ==
PROVIDERS: Emergency Provider Emergency Medicine; PCP Nurse Practitioner Family
DX: R51 Headache (principal); Z86.79 Personal history of other diseases of the circulatory system
CPT/HCPCS: 70496; 80053; 96361; 96374; 96375; 99285; 83735; 85025; 85610; 85730; 99284; J0780; J1100; J3490

== ENCOUNTER 2019-07-14 20:57 | Observation (INO) | payer MEDICAID, SELFPAY ==
[2019-07-14] VITALS (13 sets, daily range): BP systolic 120–160; BP diastolic 66–121; PULSE 89–99; RESP 16; TEMP 36.9; O2SAT 96–100
--- NOTE | 2019-07-14 21:00 | DI.CT_ITS ---
EXAM: CT BRAIN NECK CTA CLINICAL HISTORY: known aneursyms, headache, right sided weakness TECHNIQUE: Axial CT angiography was performed with multi-slice acquisition and multi-planar and/or 3 D reconstructions. COMPARISON: CT BRAIN CTA from 05/15/2019 FINDINGS: Noncontrast cranial CT was performed followed by CT angiography of the head. The noncontrast cranial CT shows previously described right supraclinoid aneurysm clips and left ICA stent. No evidence of acute intracranial hemorrhage, mass effect, or midline shift. Paranasal sinus es and mastoid air cells are clear. The orbital and temporal structures appear intact. The lung apices are clear. Cervical scanning shows unremarkable appearance of tracheal laryngeal structures. No cervical mass o r adenopathy. Visualized aortic arch and major branch vessels appear intact. The common, internal, and external ca rotid arteries are unremarkable to the level of the cranium. Vertebral and basilar arteries are unre markable. No stenosis, aneurysm, or dissection. Intracranially, the internal carotid arteries are somewhat small, as are the posterior, middle, and a nterior cerebral arteries bilaterally. No occlusion or aneurysm identified. Left ICA stent appears patent. Unchanged focal narrowing of left ICA proximal to the stent, no hemodynamically significant stenosis seen. IMPRESSION: No evidence of acute intracranial process. Stable appearance of extracranial and intracranial circul ation, prior right supraclinoid aneurysm clips and left ICA supraclinoid stent in position.
--- NOTE | 2019-07-14 21:00 | DI.CT_ITS ---
EXAM: CT THORAX ABDOMEN CTA CLINICAL HISTORY: known anyurisms, headache, right sided weakness TECHNIQUE: Axial CT angiography was performed with multi-slice acquisition and multi-planar and/or 3 D reconstructions. COMPARISON: CT CHEST/ABD/PEL W from 01/30/2019 CT BRAIN NECK CTA from 07/14/2019 FINDINGS: CT angiography of chest, abdomen, pelvis was performed with a bolus infusion 185 cc of Omnipaque 350. There is marked patient motion which limits interpretation particularly in chest and upper abdomen. Tejeda rods noted in the thoracic spine with a pronounced right convex thoracic scoliosis and c ompensatory left lumbar scoliosis. Lungs are grossly clear. No gross pulmonary embolic disease in c entral vessels. Thoracic aorta suboptimally visualized but grossly unremarkable. No mass or adenopa thy in the mediastinum. Large hiatal hernia and fluid-filled esophagus which is distended. Tracheob ronchial tree grossly intact. No pleural effusion or pneumothorax. Liver and spleen grossly unremarkable. Splenic artery aneurysms poorly visualized due to motion but probably unchanged from prior study 01/30/2019. Contrast opacified urinary tract, no hydronephrosis. Doubt nephrolithiasis. No gross abdominal or pelvic adenopathy. No bowel obstruction. Pancreas g rossly unremarkable. Gallbladder and bile ducts unremarkable. Abdominal aorta is of normal diameter and major branch vessels are unremarkable as visualized. No significant abdominal wall hernia. Inna endix is unremarkable. No evidence of diverticulitis or bowel obstruction. Molder Shoulder Pad structures grossly i ntact as visualized. IMPRESSION: Limited scan due to patient motion. No evidence of acute abnormality. Large hiatal hernia with distended fluid-filled esophagus noted. Please correlate clinically, additi onal evaluation with endoscopy may be considered if clinically appropriate.
--- NOTE | 2019-07-14 21:16 | ED.GENADUL_ITS ---
Discharge Plan Disposition Patient Disposition: [facility] INPATIENT Condition: Stable Discharge Details Chief Complaint: GenMedical Clinical Impression: Stroke-like symptom, Acute right-sided muscle weakness Primary Care Provider: Frances Sorensen ED Provider: Woody Mo Home Meds and New Rx's Prescriptions: No Action methadone [Dolophine] 10 MG tablet 114 mg PO DAILY RF: 0 acetaminophen [Mapap Extra Strength] 500 MG tablet 1,000 mg PO Q6H 5 Days Qty: 60 RF: 0 paroxetine HCl [Paxil] 10 mg Tablet 20 mg PO HS RF: 0 albuterol sulfate 90 mcg/actuation Hfa Aerosol Inhaler 1 puff INHALATION Q6H PRNRF: 0 docusate sodium [Docusil] 100 mg capsule 100 mg PO DAILY Qty: 60 RF: 0 epinephrine 0.3 mg/0.3 mL auto-injector 0.3 mg IM ONCE PRN (Reason: anaphylaxis) Qty: 1 RF: 1 clopidogrel [Plavix] 75 mg Tablet 75 mg PO DAILY RF: 0 aspirin [Aspir-81] 81 mg Tablet,Delayed Release (Dr/Ec) 81 mg PO DAILY RF: 0 hydroxyzine HCl 25 mg Tablet 25 mg PO TID RF: 0 Flovent HFA 220 mcg/actuation Hfa Aerosol Inhaler 1 puff INHALATION BID RF: 0 lisinopril 5 mg Tablet 5 mg PO DAILY RF: 0 metoprolol succinate 25 mg Tablet Extended Release 24 Hr 50 mg PO DAILY RF: 0 naproxen 375 mg Tablet,Delayed Release (Dr/Ec) 375 mg PO TID PRNRF: 0 pregabalin [Lyrica] 75 mg Capsule See Rx Instructions .ROUTE .COMPLEX RF: 0 diphenhydramine HCl [Benadryl] 25 mg Capsule 25 mg PO QHS PRNRF: 0 cyclobenzaprine 5 mg Tablet 5 mg PO BID RF: 0 Medical Decision Making 28-year-old female with a past medical history of PTSD, TIAs and strokes, multiple aneurysms, 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 Patient presents today for weakness in the right lower extremity, right arm weakness. Patient states that this morning she had an episode which she described as a sudden pop-like sensation in her head, followed by uncontrolled twitching in her right arm and right leg. She also experience mild back pain at that time. Since then the headache has resolved, the back pain his first noticed continued weakness in the right leg, as well as what she describes as decreased dexterity in her right hand. Vision is stable, however she has noticed some mild slurred speech per her family throughout the day which is slowly and gradually improved. She also notes some occasional which she describes as firefly like visual disturbances in the lateral aspects of her vision bilaterally. She denies any chest pain, syncope, nausea vomiting or diarrhea. She denies any fever or chills. She has no other complaints at this time. She states she has been taking her medication as directed. She states that the symptoms feel slightly atypical of when she had her aneurysms before, but feels slightly similar to her previous described TIAs. Physical exam demonstrates no profound neurologic deficits, however she does have diminished strength on the right for both the upper and lower extremity when compared to the left. Babinski normal, patellar reflexes equal bilaterally at +1. Minimal dysdiadochokinesia and dysmetria on the right compared to left. Tongue is able to oscillate to both sides but does have some mild difficulty when transitioning to the right. No other significant deficits that I can appreciate at this time, no meningeal signs. Patient is not a candidate for lumbar puncture as she is on dual antiplatelet therapy at this time. Differential is broad but certainly includes aneurysm, thrombosis, or AAA in the differential in conjunction with her symptoms. I did discuss the risks and benefits of radiation exposure as she has been exposed, as well as my concern though with her notable history. Patient has agreed to additional imaging. We will get a CT scan of the head neck, as well as evaluate for AAA. With her deficits that seem to be new at this time I do feel that at the very least she would benefit from admission, and potential MRI and neurology evaluation tomorrow taking into consideration her history. We will continue to monitor closely. 12:[address] Hdez, discussed the case with her, she did request that I speak with [facility] neurology prior to potential admission case there was potential need for transfer at this time. I did speak with both neurosurgery Dr. Guillaume, as well as neurology , the case was discussed with both of them in depth, including images which they were able to review. At this time they to recommend holding off on any lumbar puncture secondary to her current dual antiplatelet therapy. With negative CT imaging at this time, they see no indication for emergent transfer, TPA, or surgery. They do recommend MRI, MRA, and MRV for further evaluation tomorrow. I also do feel that EEG may be potentially beneficial. No other additional recommendations at this time. We will reach out to hospitalist for admission. At this time symptoms appear clinically inconsistent with meningitis, significant dissection, large thrombotic stroke. Patient stable. Differential still includes small t hrombotic events that we cannot appreciate on CT imaging at this time. Potential small bleed not seen on CT imaging. 12:12 AM Discussed the case with the hospitalist, she agrees with assessment and plan. She will be placing orders. I have extensively reviewed the treatment plan with the patient. I have addressed all patient concerns at this time. I have also discussed the plan with the admitting physician and they agree with the current assessment and plan and have agreed to assume responsibility for the patient. All parties demonstrate verbal understanding and agreement with our assessment and plan at this time. EKG 21: 47 Rate 90, sinus rhythm, AZ 142, QTc 470, QRS 150, incomplete right bundle branch block, inverted T wave in V1, V4, and lead III. No significant ST elevations or depressions. No evidence of STEMI. Review of prior EKG from 01/30/2019 demonstrates identical findings. IMPRESSION: The cervical arteries are patent without flow-limiting stenosis or occlusion. Thank you for allowing us to participate in the care of your patient. Dictated and Authenticated by: Jer Leone MD 07/14/2019 11:13 PM Eastern Time ([place] & [place]) IMPRESSION: 1. No acute abnormality in the chest. No acute aortic injury as queried, though evaluation of the ascending aorta is somewhat limited by cardiac motion. Consider repeat CTA if there is persistent concern for acute aortic injury. 2. Moderate hiatal hernia. 3. Patulous fluid-filled esophagus places patient at risk for aspiration. IMPRESSION: 1. No acute abnormality in the abdomen and pelvis. No acute aortic injury. 2. Splenic artery aneurysms measuring up to 9 mm are grossly unchanged from prior though evaluation is mildly limited by motion and suboptimal contrast bolus timing. 3. Unchanged nonspecific hepatosplenomegaly. Thank you for allowing us to participate in the care of your patient. Dictated and Authenticated by: Jer Leone MD 07/14/2019 11:29 PM Eastern Time ([place] & [place]) IMPRESSION: 1. No acute intracranial abnormality. 2. Patent intracranial arteries without flow-limiting stenosis, occlusion, or aneurysm. 3. Patent left internal carotid artery stent with unchanged focal narrowing of the left internal carotid artery just proximal to the stent. HPI General Date/Time Provider Initiated Documentation: 07/14/19 21:00 . 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 Patient presents today for weakness in the right lower extremity, right arm weakness. Patient states that this morning she had an episode which she described as a sudden pop-like sensation in her head, followed by uncontrolled twitching in her right arm and right leg. She also experience mild back pain at that time. Since then the headache has resolved, the back pain his first noticed continued weakness in the right leg, as well as what she describes as decreased dexterity in her right hand. Vision is stable, however she has noticed some mild slurred speech per her family throughout the day which is slowly and gradually improved. She also notes some occasional which she describes as firefly like visual disturbances in the lateral aspects of her vision bilaterally. She denies any chest pain, syncope, nausea vomiting or diarrhea. She denies any fever or chills. She has no other complaints at this time. She states she has been taking her medication as directed. She states that the symptoms feel slightly atypical of when she had her aneurysms before, but feels slightly similar to her previous described TIAs. Related Data Home Medications Medication Instructions Recorded Confirmed methadone [Dolophine] 114 mg PO DAILY 12/25/15 07/14/19 acetaminophen [Mapap Extra 1,000 mg PO Q6H 5 Days #60 tab 11/19/17 07/14/19 Strength] albuterol sulfate 1 puff INHALATION Q6H PRN 02/03/18 07/14/19 paroxetine HCl [Paxil] 20 mg PO HS 02/03/18 07/14/19 docusate sodium [Docusil] 100 mg PO DAILY #60 cap 07/01/18 07/14/19 Flovent HFA 1 puff INHALATION BID 10/17/18 07/14/19 aspirin [Aspir-81] 81 mg PO DAILY 10/17/18 07/14/19 clopidogrel [Plavix] 75 mg PO DAILY 10/17/18 07/14/19 hydroxyzine HCl 25 mg PO TID 10/17/18 07/14/19 lisinopril 5 mg PO DAILY 10/17/18 07/14/19 metoprolol succinate 50 mg PO DAILY 10/17/18 07/14/19 naproxen 375 mg PO TID PRN 10/17/18 07/14/19 epinephrine 0.3 mg IM ONCE PRN #1 each 10/22/18 07/14/19 pregabalin [Lyrica] See Rx Instructions .ROUTE .COMPLEX 05/15/19 07/14/19 cyclobenzaprine 5 mg PO BID 07/14/19 07/14/19 diphenhydramine HCl [Benadryl] 25 mg PO QHS PRN 07/14/19 07/14/19 Previous Rx's Medication Instructions Recorded acetaminophen [Mapap Extra 1,000 mg PO Q6H 5 Days #60 tab 11/19/17 Strength] docusate sodium [Docusil] 100 mg PO DAILY #60 cap 07/01/18 epinephrine 0.3 mg IM ONCE PRN #1 each 10/22/18 Allergies Allergy/AdvReac Type Severity Reaction Status Date / Time meperidine HCl [From Demerol] Allergy Severe Anaphylaxsi Unverified 07/14/19 21:17 s venom-honey bee Allergy Severe anaphylaxis Unverified 07/14/19 21:17 [bee venom (honey bee)] lithium AdvReac Mild NAUSEA Unverified 07/14/19 21:17 sertraline HCl [From Zoloft] AdvReac Mild NIGHTMARES Unverified 07/14/19 21:17 General KALINA: 2 Review of Systems All systems reviewed & are unremarkable except as noted in HPI and below PFSH Medical History Asthma (Chronic) Blood bacterial culture positive (Resolved) Chronic daily headache (Chronic) Community acquired bacterial pneumonia (Resolved) Depression (Chronic) Hepatitis C infection (Chronic) History of intravenous drug abuse (Chronic) Migraine headache with aura (Chronic ~2000) Nephrolithiasis (Chronic) Opioid dependence in controlled environment (Chronic) PTSD (post-traumatic stress disorder) (Chronic) Scoliosis (Chronic) Therapeutic opioid induced constipation (Resolved) Surgical History History of (Resolved) History of cerebral aneurysm repair (Resolved ~2014) S/P cystoscopy with ureteral stent placement (Resolved) S/P tubal ligation (Resolved) Status post thoracic spinal fusion (Resolved) Family History Paternal Aunt Cerebral aneurysm Social History Smoking/Tobacco Use Status: Current every day Tobacco Type: cigarettes Quit status: considering quitting Alcohol Intake: former Drug use: Current Sobriety Substance use type: former substance user, marijuana, crack/cocaine, heroin, opiates and IV drugs Details: former heroin and cocaine user, 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 only drugs that she uses currently is marijuana Household members: other Details: lives w/ cousin's ex- and her children Number of Children: 3 Do you feel safe at home: Yes Do you feel safe in your relationship?: Yes History History 2 Para 3 Hx # Term Pregnancies 2 Multiple births Hx # Pregnancies Ectopic pregnancies AB induced Hx Number of Living Children 3 AB spontaneous Exam Narrative Exam Narrative: 1.Const: Well-nourished, Well-developed, appearing stated age 2.Eyes: PERRL, no conjunctival injection, and symmetrical lids. 3.ENT: Atraumatic external nose and ears. Moist MM. Neck: Symmetric, trachea midline, No thyromegaly. Patient demonstrates good movement of cervical neck. There is no nuchal rigidity, no nuchal tenderness. Patient is able to flex the neck without any difficulty or significant pain. Negative Kernig's and Brudzinski sign. 4.CVS: +S1/S2, No murmurs or gallops. Peripheral pulses 2+ and equal in all extremities. Brisk capillary refill in all extremities. 5.RESP: Unlabored respiratory effort. Clear to auscultation bilaterally. No wheezes rales or rhonchi 6.GI: Soft, Nontender/Nondistended, No hepatosplenomegaly. No guarding or rebound. No pulsatile abdominal mass 7.MSK: Normocephalic/Atraumatic, Extremities w/o deformity or ttp No cyanosis or clubbing, Normal movement of all extremities. 8.Skin: Warm, Dry. No rashes or lesions. 9.Neuro: All 6 cardinal planes of vision are fully intact. No evidence of rotatory or vertical nystagmus. The patient demonstrated a normal [id number] on the left upper extremity, but slightly inaccurate motion on the right, when compared to the left., good dexterity otherwise but she does have a subjective sensation of decreased dexterity on the right.. There was no evidence of dysdiadochokinesia however the right upper extremity did move a little bit slower than the left.. Patient was able to ambulate without difficulty, but did have a mild limp secondary to self-described weakness on the right lower extremity there was no wide-based gait. Romberg testing was normal. Mipv-os-[id number] testing was normal. Sensation was intact bilaterally as well as muscle strength bilaterally for all extremities however the right lower extremity demonstrated 3.5-4 muscle strength compared to the left which was 5 out of 5 muscle strength. Dorsiflexion of the great toe is equal bilaterally. Babinski reflex normal.. Patient was able to verbalize butter cup with no slurring, or miss pronunciation. 10.Psych: (AAO) x3. Appropriate mood and affect
--- NOTE | 2019-07-14 21:29 | NUR.NOTE ---
Nursing Note: Pt ambulatory to bathroom. Gait steady
[2019-07-14 21:47] LABS: Abs Immature Grans 0.01 k/cumm (0.0-0.09); Absolute Basophil Count 0.01 k/cumm (0.0-0.2); Absolute Eosinophil Count 0.25 k/cumm (0.0-0.7); Absolute Lymphocyte Count 3.05 k/cumm (1.2-3.4); Absolute Monocyte Count 0.49 k/cumm (0.11-0.7); Absolute Neutrophil Count 5.08 k/cumm (1.2-6.7); Basophils % 0.1; Eosinophils % 2.8; HCT 35.6 % (36.0-46.0); HGB 11.3 g/dL (12.0-15.5); Immature Grans % 0.1 %; Lymphocytes % 34.3; Mean Corp. HGB Concentration 31.7 g/dL (32.0-36.0); Mean Corpuscular Hemoglobin 28.9 pg (27.0-33.0); Mean Platelet Volume 10.1 fL (8.0-11.0); Monocytes % 5.5; Neutrophils % 57.2; Platelet Count 327 x1000/uL (130-400); RBC 3.91 m/cumm (4.00-5.20); White Blood Cell Count 8.89 k/cumm (4.4-10.8)
[2019-07-14 21:52] LABS: Bilirubin Negative (Negative); Blood Negative (Negative); Clarity Sl Cloudy (Clear); Glucose Negative (Negative); Ketones Negative (Negative); Leukocyte Esterase Negative (Negative); Nitrite Negative (Negative); Specific Gravity >= 1.030 (1.005-1.025); Urobilinogen 0.2 EU/dL (Up TO 0.2)
[2019-07-14] MEDS: Normal Saline 1,000 ML 1000 ML IV (22:00)
[2019-07-14 22:05] LABS: PTT Activated 26.8 sec (21.0-31.4); Prothrombin Time 9.6 sec (9.3-11.0)
[2019-07-14 22:09] LABS: ALT 38 U/L (14-59); AST 27 U/L (15-37); Albumin 3.3 g/dL (3.4-5.0); Alkaline Phosphatase 124 U/L (46-116); Anion Gap 7.2 mmol/L (3-11); BUN 17 mg/dL (7-18); Bilirubin, Total 0.2 mg/dL (0.2-1.0); CO2 29.8 mmol/L (21.0-32.0); CREATININE 0.83 mg/dL (0.55-1.02); Calcium 8.3 mg/dL (8.5-10.1); Chloride 105 mmol/L (98-107); Glucose 120 mg/dL (74-106); Sodium 142 mmol/L (136-145); TSH (W/Ref FT4) 0.86 uIU/mL (0.36-3.74); Total Protein 7.3 g/dL (6.4-8.2)
[2019-07-14] MEDS: Omnipaque 350 MG/ML 100 ML BTL IJ ×2 (22:55→22:56)
[2019-07-14] MEDS: Normal Saline - Diluent 50 ML VIAL IV ×2 (22:57→22:58)
[2019-07-14] MEDS: Normal Saline Flush 10 ML SYR IVP (22:59)
--- NOTE | 2019-07-14 23:13 | DI.VRAD_ITS ---
PROCEDURE INFORMATION: Exam: CT Angiography Head With Contrast Exam date and time: 07/14/2019 9:15 PM Age: 28 years old Clinical indication: Pain; Prior surgery; Surgery date: 1-6 months; Surgery type: Coil placed for anyurism; Patient HX: Known anyurisms, headache, right sided weakness TECHNIQUE: Imaging protocol: Computed tomography angiography of the head with intravenous contrast. 3D rendering: MIP and/or 3D reconstructed images were created by the technologist. Radiation optimization: All CT scans at this facility use at least one of these dose optimization techniques: automated exposure control; mA and/or kV adjustment per patient size (includes targeted exams where dose is matched to clinical indication); or iterative reconstruction. Contrast material: OMNIPAQUE 350; Contrast volume: 85 ml; Contrast route: IV RAC; COMPARISON: CT BRAIN CTA 05/15/2019 5:01 PM FINDINGS: Right internal carotid artery: The right internal carotid artery is patent through at least cavernous segment and with opacification of the right carotid terminus. The remaining right ICA is obscured by metallic streak artifact. Aneurysm coils in the region of the right paraclinoid ICA. Right anterior cerebral artery: No occlusion or significant stenosis. No aneurysm. Right middle cerebral artery: Similar appearing diminutive right MCA which is otherwise patent without flow-limiting stenosis or aneurysm. Right posterior cerebral artery: No occlusion or significant stenosis. No aneurysm. Right vertebral artery: No occlusion or significant stenosis. No aneurysm. Left internal carotid artery: Patent stent traversing the Left cavernous through carotid terminus internal carotid artery. The left ICA is otherwise patent with unchanged focal narrowing just proximal to the stent. Left anterior cerebral artery: No occlusion or significant stenosis. No aneurysm. Left middle cerebral artery: Similar appearing diminutive left middle cerebral artery which is otherwise patent without flow-limiting stenosis. Left posterior cerebral artery: No occlusion or significant stenosis. No aneurysm. Left vertebral artery: No occlusion or significant stenosis. No aneurysm. Basilar artery: No occlusion or significant stenosis. No aneurysm. Dural sinuses/cerebral veins: Dural venous sinuses are patent. HEAD: Brain: Right frontal encephalomalacia. IMPRESSION: 1. No acute intracranial abnormality. 2. Patent intracranial arteries without flow-limiting stenosis, occlusion, or aneurysm. 3. Patent left internal carotid artery stent with unchanged focal narrowing of the left internal carotid artery just proximal to the stent. PROCEDURE INFORMATION: Exam: CT Angiography Neck With Contrast Exam date and time: 07/14/2019 9:15 PM Age: 28 years old Clinical indication: Pain; Prior surgery; Surgery date: 1-6 months; Surgery type: Coil placed for anyurism; Patient HX: Known anyurisms, headache, right sided weakness TECHNIQUE: Imaging protocol: Computed tomography angiography of the neck with intravenous contrast. 3D rendering: MIP and/or 3D reconstructed images were created by the technologist. Radiation optimization: All CT scans at this facility use at least one of these dose optimization techniques: automated exposure control; mA and/or kV adjustment per patient size (includes targeted exams where dose is matched to clinical indication); or iterative reconstruction. Contrast material: OMNIPAQUE 350; Contrast volume: 85 ml; Contrast route: IV RAC; COMPARISON: CT BRAIN CTA 05/15/2019 5:01 PM FINDINGS: VASCULATURE: Right common carotid artery: No stenosis. No dissection or occlusion. Right internal carotid artery: No stenosis of the extracranial segment. No dissection or occlusion. Right external carotid artery: No occlusion or stenosis of the origin. Right vertebral artery: No stenosis. No dissection or occlusion. Left common carotid artery: No stenosis. No dissection or occlusion. Left internal carotid artery: No stenosis of the extracranial segment. No dissection or occlusion. Left external carotid artery: No occlusion or stenosis of the origin. Left vertebral artery: No stenosis. No dissection or occlusion. NECK: Thyroid: Stable asymmetric enlargement of the right thyroid lobe. Bones/joints: Partially visualized thoracic spine posterior fusion hardware appears intact. Soft tissues: Normal. No significant soft tissue swelling. Lungs: Visualized lungs are clear. IMPRESSION: The cervical arteries are patent without flow-limiting stenosis or occlusion. Dictated and Authenticated by: Jer Leone MD. Ordering:ALBA Mckay MD
--- NOTE | 2019-07-14 23:30 | DI.VRAD_ITS ---
PROCEDURE INFORMATION: Exam: CT Angiography Chest With Contrast Exam date and time: 07/14/2019 10:46 PM Age: 28 years old Clinical indication: Abdominal pain; Generalized; Prior surgery; Surgery date: 6+ months; Surgery type: Spine surgery; Patient HX: Known anyurisms, headache, right sided weakness, back pain TECHNIQUE: Imaging protocol: Computed tomographic angiography of the chest with intravenous contrast. 3D rendering: MIP and/or 3D reconstructed images were created by the technologist. Radiation optimization: All CT scans at this facility use at least one of these dose optimization techniques: automated exposure control; mA and/or kV adjustment per patient size (includes targeted exams where dose is matched to clinical indication); or iterative reconstruction. Contrast material: OMNIPAQUE 350; Contrast volume: 100 ml; Contrast route: IV RAC; COMPARISON: CTA THORAX/ABDOMEN/PELVIS 03/07/2017 10:32 PM FINDINGS: Pulmonary arteries: No central pulmonary embolism. Aorta: The aorta is normal. Lungs: Clear lungs. Pleural space: Unremarkable. No pneumothorax. No pleural effusion. Heart: Cardiac and respiratory motion somewhat limit evaluation. Mediastinum: Moderate hiatal hernia. Patulous, fluid-filled esophagus. Lymph nodes: Unremarkable. No enlarged lymph nodes. Bones/joints: Thoracic spine posterior fusion hardware without evidence of failure. Dextro levo scoliosis. Soft tissues: Unremarkable. IMPRESSION: 1. No acute abnormality in the chest. No acute aortic injury as queried, though evaluation of the ascending aorta is somewhat limited by cardiac motion. Consider repeat CTA if there is persistent concern for acute aortic injury. 2. Moderate hiatal hernia. 3. Patulous fluid-filled esophagus places patient at risk for aspiration. PROCEDURE INFORMATION: Exam: CT Angiography Abdomen With Contrast Exam date and time: 07/14/2019 10:46 PM Age: 28 years old Clinical indication: Abdominal pain; Generalized; Prior surgery; Surgery date: 6+ months; Surgery type: Spine surgery; Patient HX: Known anyurisms, headache, right sided weakness, back pain TECHNIQUE: Imaging protocol: Computed tomographic angiography images of the abdomen with intravenous contrast material. 3D rendering: MIP and/or 3D reconstructed images were created by the technologist. Radiation optimization: All CT scans at this facility use at least one of these dose optimization techniques: automated exposure control; mA and/or kV adjustment per patient size (includes targeted exams where dose is matched to clinical indication); or iterative reconstruction. Contrast material: OMNIPAQUE 350; Contrast volume: 100 ml; Contrast route: IV RAC; COMPARISON: CTA THORAX/ABDOMEN/PELVIS 03/07/2017 10:32 PM FINDINGS: Aorta: The aorta is normal. Celiac trunk and mesenteric arteries: No occlusion or significant stenosis. Similar splenic artery aneurysms measuring up to 9 mm. Renal arteries: No occlusion or significant stenosis. Liver: Enlarged liver is otherwise unremarkable. Gallbladder and bile ducts: The gallbladder is normal. Pancreas: The pancreas is normal. Spleen: Enlarged spleen is otherwise unremarkable. Adrenals: The adrenal glands are normal. Kidneys and ureters: The kidneys are normal. Stomach and bowel: Incidental duodenal diverticulum. Small and large bowel are otherwise unremarkable. Lymph nodes: Unremarkable. No enlarged lymph nodes. Intraperitoneal space: Unremarkable. No free air. No significant fluid collection. Bladder: The bladder is normal. Reproductive: Uterus and endometrium are within normal limits for premenopausal state. Left adnexal cyst is likely reactive. Bones/joints: Unremarkable. No acute fracture. No dislocation. Soft tissues: Unremarkable. IMPRESSION: 1. No acute abnormality in the abdomen and pelvis. No acute aortic injury. 2. Splenic artery aneurysms measuring up to 9 mm are grossly unchanged from prior though evaluation is mildly limited by motion and suboptimal contrast bolus timing. 3. Unchanged nonspecific hepatosplenomegaly. Dictated and Authenticated by: Jer Leone MD. Ordering:ALBA Mckay MD
[2019-07-15] VITALS (8 sets, daily range): BP systolic 115–133; BP diastolic 75–87; PULSE 75–99; RESP 4–18; TEMP 36–36.7; O2SAT 97–100
--- NOTE | 2019-07-15 | DI.MRI_ITS ---
EXAM: MR VENOUS BRAIN WO/W CLINICAL HISTORY: suspected CVA, venous sinus thrombosis. TECHNIQUE: Multiplanar multisequence MRI was performed. COMPARISON: MR BRAIN WO from 07/15/2019 FINDINGS: MR venogram was performed according to the usual protocol without and with injection of Dotarem.. Th e examination is of limited technical quality, however there is no evidence of an obstructive lesion or significant filling defect in the venous system of the neural cranium. IMPRESSION: Negative MR venogram of the brain. DATA REPOSITORY:
[2019-07-15] MEDS: Normal Saline 500 ML IV (00:28)
--- NOTE | 2019-07-15 00:39 | HPE_ITS ---
Date of service: 07/15/19 Time of Service: 00:40 Assessment and Plan Assessment and plan (1) Acute focal neurological deficit: Status: Acute Assessment and plan: DDx: TIA/CVA vs atypical migraine (patient has a h/o thereof) vs seizure. Patient states that she had seizures as a child, but not as an adult and does not take anticonvulsant medications. Per [facility] neurology recommendations, will obtain MRI/MRA/MRV brain, EEG, consult neurology. Neurochecks. Permissive hypertension Consult PT/OT. (2) Atypical chest pain: Status: Acute Assessment and plan: Unfortunately, I cannot locate the EKG done in ED. Will obtain a new one. Troponin neg x 1, repeat pending. Will monitor on tele. (3) Back pain: Status: Acute Assessment and plan: DDx: MSK vs potentially infectious etiology - does have a h/o IVD abuse. Check UDS. Obtain MRI LS spine. Neurology consult (4) History of intravenous drug abuse: Status: Chronic Assessment and plan: As above. Currently, on methadone through [facility] - continue while inpatient. (5) DVT prophylaxis: Status: Acute Assessment and plan: TEDs/SCDs (6) Discharge planning issues: Status: Acute Assessment and plan: Full code History of Present Illness History of Present Illness Chief Complaint: RUE/RLE weakness Narrative: Ms Ervin is a 28 year old female with PMHx of CVA, R paraclincoind/ICA nonruptured aneurysm coiling/stent, L ophthalmic A aneurysm s/p coiling, R paraophthalmic aneurysm s/p stent, on dual antiplatelet therapy, h/o PFO (per [facility] records), seizure disorder (per [facility] records), as well as h/o atypical migraines, h/o SVT s/p ablation, h/o opioid dependence on methadone, Hepatitis C, h/o drug abuse, ?vasculitis, who had presented to [facility] ED today complaining of R-sided weakness and slurred speech. The patient woke up without deficits this morning, but around 11 am experiences a flash-like sensation in her head of pressure from the inside, accompanied by a sudden shake in her RUE/RLE, followed by numbness and weakness in both. The patient states that because of this, she almost fell while trying to go up the stairs. She took a nap at around 3 pm and woke up with a new R facial droop and having difficulty pronouncing words. She also noticed an oily substance running out of her nostrils. She has continues to experience RUE/RLE sudden uncontrollable twinges. She also reports lower midline back pain starting yesterday. Denies numbess/tingling in genital area and has not had any difficulty urinating or incontinence. Does have chronic constipation. Denies fever, but felt cold yesterday. Denies sore throat. Endorses chest pain on and off for several hours yesterday. Denies SOB. Endorses nausea, but no vomiting. States her vision has been blurred all day and that she has been seeing fireflies out of the corner of the eye. Exam in the ED revealed dysdiadokinesis and dysmetria on the right as well as weakness RUE/RLE. CTA head/abdomen negative. Phone consultation with [facility] neuro/neurosurgery recommended that the patient stay at our facility for MRI/MRA/MRV of the brain and undergo a neurology evaluation. She may also benefit from an EEG. Review of Systems Narrative: 12 systems reviewed. Pertinent positives and negatives are as per HPI [facility] Medical History (Updated 07/15/19 @ 01:49 by Rosie Hdez MD) ADD (attention deficit disorder) (Acute) Aneurysm of ophthalmic artery (Acute) L, s/p stent Asthma (Chronic) Atrial septal aneurysm (Acute) Blood bacterial culture positive (Resolved) Chronic daily headache (Chronic) Chronic pain (Chronic) Chronic systolic CHF (congestive heart failure) (Acute) EF 50% in 08/2018 - [facility] Community acquired bacterial pneumonia (Resolved) Depression (Chronic) Fibromyalgia (Acute) Hepatitis C infection (Chronic) History of intravenous drug abuse (Chronic) Intracranial aneurysm (Acute) Migraine headache with aura (Chronic ~2000) Nephrolithiasis (Chronic) Opioid dependence in controlled environment (Chronic) PFO (patent foramen ovale) (Acute) PTSD (post-traumatic stress disorder) (Chronic) Scoliosis (Chronic) Seizures (Acute) Spondylosis of lumbar spine (Acute) SVT (supraventricular tachycardia) (Inactive) S/p ablation Therapeutic opioid induced constipation (Resolved) Surgical History (Updated 07/15/19 @ 01:03 by Rosie Hdez MD) H/O lithotripsy (Acute) History of (Resolved) History of cerebral aneurysm repair (Resolved ~2014) S/P cystoscopy with ureteral stent placement (Resolved) S/P tubal ligation (Resolved) Status post ablation operation for arrhythmia (Acute) SVT Status post thoracic spinal fusion (Resolved) Family History (Updated 07/15/19 @ 01:06 by Rosie Hdez MD) Paternal Aunt Cerebral aneurysm Diabetes Hypertension Maternal Aunt Migraines Maternal Grandmother Heart disease Hypertension Migraines Paternal Grandmother Heart disease Diabetes Father Diabetes Hypertension Maternal Grandfather Diabetes Paternal Uncle Diabetes Hypertension Paternal Grandfather Hypertension Brother Migraines Mother Migraines Social History Smoking/Tobacco Use Status: Current every day Tobacco Type: cigarettes Quit status: considering quitting Alcohol Intake: former Drug use: Current Sobriety Substance use type: former substance user, marijuana, crack/cocaine, heroin, opiates and IV drugs Details: former heroin and cocaine user, 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 only drugs that she uses currently is marijuana Household members: other Details: lives w/ cousin's ex- and her children Number of Children: 3 Do you feel safe at home: Yes Do you feel safe in your relationship?: Yes History History 2 Para 3 Hx # Term Pregnancies 2 Multiple births Hx # Pregnancies Ectopic pregnancies AB induced Hx Number of Living Children 3 AB spontaneous Meds Home Medications and Allergies Home Medications Medication Instructions Recorded Confirmed Type methadone [Dolophine] 114 mg PO DAILY 12/25/15 07/14/19 History acetaminophen [Mapap Extra 1,000 mg PO Q6H 5 Days #60 tab 11/19/17 07/14/19 Rx Strength] albuterol sulfate 1 puff INHALATION Q6H PRN 02/03/18 07/14/19 History paroxetine HCl [Paxil] 20 mg PO HS 02/03/18 07/14/19 History docusate sodium [Docusil] 100 mg PO DAILY #60 cap 07/01/18 07/14/19 Rx Flovent HFA 1 puff INHALATION BID 10/17/18 07/14/19 History aspirin [Aspir-81] 81 mg PO DAILY 10/17/18 07/14/19 History clopidogrel [Plavix] 75 mg PO DAILY 10/17/18 07/14/19 History hydroxyzine HCl 25 mg PO TID 10/17/18 07/14/19 History lisinopril 5 mg PO DAILY 10/17/18 07/14/19 History metoprolol succinate 50 mg PO DAILY 10/17/18 07/14/19 History naproxen 375 mg PO TID PRN 10/17/18 07/14/19 History epinephrine 0.3 mg IM ONCE PRN #1 each 10/22/18 07/14/19 Rx pregabalin [Lyrica] See Rx Instructions .ROUTE .COMPLEX 05/15/19 07/14/19 History cyclobenzaprine 5 mg PO BID 07/14/19 07/14/19 History diphenhydramine HCl [Benadryl] 25 mg PO QHS PRN 07/14/19 07/14/19 History Allergies Allergy/AdvReac Type Severity Reaction Status Date / Time meperidine HCl [From Demerol] Allergy Severe Anaphylaxsi Unverified 07/14/19 21:17 s venom-honey bee Allergy Severe anaphylaxis Unverified 07/14/19 21:17 [bee venom (honey bee)] lithium AdvReac Mild NAUSEA Unverified 07/14/19 21:17 sertraline HCl [From Zoloft] AdvReac Mild NIGHTMARES Unverified 07/14/19 21:17 Exam Narrative Exam Narrative: General: Pleasant obese female, A&Ox3, sitting comfortably in a chair, able to move all 4 extremities Neurological: EOMI, R facial droop visible only when smiling, 4/5 RUE/RLE strenght, 5/5/ LUE/LLE strength. Intact plantar responses, sensation seemingly intact. Does seem slightly uncoordinated with right hand. Speech is intact Psychiatric: mildly anxious Skin: two small areas of what looks like mild folliculitis on R forearm; otherwise, visible skin intact HEENT: Atraumatic, normocephalic, EOMI, MMM, clear oropharynx, no goiter or JVD, R facial droop Cardiovascular: RRR, no m/r/g Lungs: CTAB Gastrointestinal: soft, nontender, nondistended Genitourinary: deferred Extremities: no e/c/c BLE's, 2+ B pedal pulses; strength as above Results Imaging Additional studies: CTA brain: 1. No acute intracranial abnormality. 2. Patent intracranial arteries without flow-limiting stenosis, occlusion, or aneurysm. 3. Patent left internal carotid artery stent with unchanged focal narrowing of the left internal carotid artery just proximal to the stent. CTA neck: The cervical arteries are patent without flow-limiting stenosis or occlusion. CTA chest: 1. No acute abnormality in the chest. No acute aortic injury as queried, though evaluation of the ascending aorta is somewhat limited by cardiac motion. Consider repeat CTA if there is persistent concern for acute aortic injury. 2. Moderate hiatal hernia. 3. Patulous fluid-filled esophagus places patient at risk for aspiration. CTA abdomen/pelvis: 1. No acute abnormality in the abdomen and pelvis. No acute aortic injury. 2. Splenic artery aneurysms measuring up to 9 mm are grossly unchanged from prior though evaluation is mildly limited by motion and suboptimal contrast bolus timing. 3. Unchanged nonspecific hepatosplenomegaly. EKG ordered, pending Labs Result diagrams: 07/14/19 21:41 07/14/19 21:41 Labs: Laboratory Results - last 24 hr 07/14/19 07/14/19 07/14/19 21:41 21:41 21:41 WBC 8.89 RBC 3.91 L Hgb 11.3 L Hct 35.6 L MCV 91.0 MCH 28.9 MCHC 31.7 L RDW 15.0 H Plt Count 327 MPV 10.1 Immature Gran % 0.1 Neutrophils % 57.2 Lymphocytes % 34.3 Monocytes % 5.5 Eosinophils % 2.8 Basophils % 0.1 Absolute Neutrophils 5.08 Absolute Lymphocytes 3.05 Absolute Monocytes 0.49 Absolute Eosinophils 0.25 Absolute Basophils 0.01 PT 9.6 INR 1.0 APTT 26.8 Sodium 142 Potassium 4.0 Chloride 105 Carbon Dioxide 29.8 Anion Gap 7.2 BUN 17 Creatinine 0.83 Estimated GFR/1.73 m2 >= 60.00 Glucose 120 H Calcium 8.3 L Total Bilirubin 0.2 AST 27 ALT 38 Alkaline Phosphatase 124 H Total Protein 7.3 Albumin 3.3 L TSH 0.86 Urine Color Urine Clarity Urine pH Ur Specific [place] Urine Protein Urine Ketones Urine Blood Urine Nitrite Urine Bilirubin Urine Urobilinogen Ur Leukocyte Esterase Urine Glucose 07/14/19 21:41 WBC RBC Hgb Hct MCV MCH MCHC RDW Plt Count MPV Immature Gran % Neutrophils % Lymphocytes % Monocytes % Eosinophils % Basophils % Absolute Neutrophils Absolute Lymphocytes Absolute Monocytes Absolute Eosinophils Absolute Basophils PT INR APTT Sodium Potassium Chloride Carbon Dioxide Anion Gap BUN Creatinine Estimated GFR/1.73 m2 Glucose Calcium Total Bilirubin AST ALT Alkaline Phosphatase Total Protein Albumin TSH Urine Color Yellow Urine Clarity Sl cloudy Urine pH 6.0 Ur Specific [place] >= 1.030 H Urine Protein Negative Urine Ketones Negative Urine Blood Negative Urine Nitrite Negative Urine Bilirubin Negative Urine Urobilinogen 0.2 Ur Leukocyte Esterase Negative Urine Glucose Negative Last Vital Signs Temp 36.9 C 07/14/19 21:04 Pulse 99 H 07/14/19 23:01 Resp 16 07/14/19 21:15 BP 128/87 07/14/19 23:01 Pulse Ox 98 07/14/19 23:15
[2019-07-15 00:40] LABS: C-Reactive Protein 1.29 mg/dL (0.0-0.3)
[2019-07-15 00:41] LABS: Troponin I < 0.05 ng/Ml (<0.06)
[2019-07-15 01:13] LABS: ESR 24 mm/hr (0-20)
[2019-07-15 01:18] LABS: *AMPHETAMINES SCREEN URINE Negative (Negative); *BARBITURATES SCREEN URINE Negative (Negative); *BENZODIAZEPINES SCREEN URINE Negative (Negative); Cannabinoids THC Negative (Negative); Cocaine Screen,Urine Negative (Negative); METHADONE URINE SCREEN POSITIVE (Negative); OPIATES URINE SCREEN Negative (Negative)
[2019-07-15 01:56] LABS: Tricyclic Antidepressants Negative (Negative)
[2019-07-15] MEDS: Normal Saline 1,000 ML 150 ML IV ×2 (01:56→08:14)
[2019-07-15 02:23] LABS: Troponin I < 0.05 ng/Ml (<0.06)
[2019-07-15] MEDS: Acetaminophen 500 MG TAB 1000 MG PO ×4 (02:40→19:45)
[2019-07-15] MEDS: Naproxen 375 MG TAB PO (03:55)
[2019-07-15 06:32] LABS: Abs Immature Grans 0.02 k/cumm (0.0-0.09); Absolute Basophil Count 0.01 k/cumm (0.0-0.2); Absolute Eosinophil Count 0.18 k/cumm (0.0-0.7); Absolute Lymphocyte Count 2.39 k/cumm (1.2-3.4); Absolute Monocyte Count 0.57 k/cumm (0.11-0.7); Absolute Neutrophil Count 6.31 k/cumm (1.2-6.7); Basophils % 0.1; Eosinophils % 1.9; HCT 31.5 % (36.0-46.0); HGB 9.8 g/dL (12.0-15.5); Immature Grans % 0.2 %; Lymphocytes % 25.2; Mean Corp. HGB Concentration 31.1 g/dL (32.0-36.0); Mean Corpuscular Hemoglobin 28.7 pg (27.0-33.0); Mean Corpuscular Volume 92.1 fL (80-95); Mean Platelet Volume 10.2 fL (8.0-11.0); Neutrophils % 66.6; Platelet Count 254 x1000/uL (130-400); RBC 3.42 m/cumm (4.00-5.20); RBC Distribution Width 15.2 % (11.7-14.6); White Blood Cell Count 9.48 k/cumm (4.4-10.8)
[2019-07-15 06:45] LABS: BUN 14 mg/dL (7-18); CREATININE 0.75 mg/dL (0.55-1.02); Calcium 7.9 mg/dL (8.5-10.1); Chloride 106 mmol/L (98-107); Glucose 135 mg/dL (74-106); Magnesium 1.4 mg/dL (1.8-2.4); Sodium 140 mmol/L (136-145)
[2019-07-15 06:57] LABS: Calculated LDL 60 mg/dL (<100); Cholesterol 129 mg/dL (<200); HDL Cholesterol 46 mg/dL (40-60); Triglyceride 118 mg/dL (<150)
[2019-07-15 07:19] LABS: Anisocytosis 1+; Diff Comment RBC Morph Reviewed; Hypochromasia 1+
--- NOTE | 2019-07-15 07:40 | OTIE_ITS ---
Occupational Therapy Notes Inpatient Occupational Therapy Evaluation Date: 07/15/19 Referring Doctor:Rosie Hdez MD OT Orders: Non-Urgent- Limited Ability Precautions: Fall, Standard, Full code PATIENT PROFILE/ADMITTING DIAGNOSIS: Pt is a 28 year old female who presented to the Emergency Room with stroke-like symptoms, acute (R) sided muscle weakness after reporting a pop-like sensation in her head. She is currently being tx for the following including acute focal neurological deficit, atypical chest pain, back pain, hx if intravenous drug abuse which she is currently seeking help with through the [facility] program. Past Medical History- Medical History Asthma (Chronic) Blood bacterial culture positive (Resolved) Chronic daily headache (Chronic) Community acquired bacterial pneumonia (Resolved) Depression (Chronic) Hepatitis C infection (Chronic) History of intravenous drug abuse (Chronic) Migraine headache with aura (Chronic ~2000) Nephrolithiasis (Chronic) Opioid dependence in controlled environment (Chronic) PTSD (post-traumatic stress disorder) (Chronic) Scoliosis (Chronic) Therapeutic opioid induced constipation (Resolved) Surgical History History of (Resolved) History of cerebral aneurysm repair (Resolved ~2014) S/P cystoscopy with ureteral stent placement (Resolved) S/P tubal ligation (Resolved) Status post thoracic spinal fusion (Resolved) Social History/Home Situation: Pt reports that she lives in her mom's home with multiple other people as many as 10 at a time and her and her boyfriend have a room that they rent. She notes that she is relatively (I) in terms of her AD Ls/IADLs at her baseline level of function. She has had (R) sided weakness for over a year per pt report. She states that she does ask for (A) with dressing if her back is hurting. She otherwise reports that she drives (I), eats (I) and can functionally perform all of her ADLs with minimal (A). She has fallen in the shower due to blacking out with one time she reports she hit her head on the toilet. OT does feel that pt may benefit from a shower bench to decrease this risk as this is decreasing pts safety in her functional activities. Pt reports that she does have 3 children who are in the State's custody. She reports that she has not seen them. She has a boyfriend who also lives in her mom's home and they reside in [place], [place]. Pt reports that she utilizes a cane if she feels that she is having weakness. She states that otherwise she can walk without an (A) device. Equipment owned/DME: Cane SUBJECTIVE: Pt was sitting in her bed when OT arrived. She was agreeable to OT session. At beginning of session pt is unable to keep her eyes open, she requires vc to engage in verbal conversation. Then pt has a change in perception and was agreeable to OT session noting that she would like to eat her breakfast as she is starving. Pt reports that she is feeling better and would like to get out of the hospital as soon as possible. OBJECTIVE: General Observation: When engaged, pt is pleasant and able to answer questions appropriately. She has an IV in he (R) UE and is (R) hand dominant. She is able to sit without support to her back but notes pain in sacral area. Has on (B) RADHA stockings not over her toes per pt request. Pt is unable to keep her eyes open throughout session and during verbal communication. Mental Status: A&Ox3 Pain: Back pain 7/10, (R) knee pain 4/10. Pt reports that her back has been hurting since Monday and notes that her (B) knees hurt all the time especially without change of position. ROM: RUE Shoulder flexion AROM to 110*, elbow flexion/extension WNL, hand, wrist and digits WNL L UE Shoulder flexion AROM to 110*, elbow flexion/extension WNL, hand, wrist and digits WNL STRENGTH: RUE Shoulder flexion 2+/5, bicep 3/5, tricep 3/5, wrist flexors 3/5, wrist extensors 3+/5, mc kay stitcher is weak compared to (L) LUE Shoulder flexion 3/5, bicep 3/5, tricep 3/5, wrist flexors 4/5, wrist extensors 3+/5, mc kay stitcher is stronger than (L) 4/5 SENSATION: Pt reports that this is intact in (B) UE. FUNCTIONAL MOBILITY/ADLS: Transfers without (A) device at home except when feeling weak then states that she utilizes a cane. Sit-Stand (S) Stand-sit (S) Bed-Chair (S) Chair-bed (S) BATHING Bathing UE standing at sink, (I) with washing face and neck. Pt states that she showered before arriving and would like to hold on perform this. Bathing LE NT DRESSING Dressing UE Min (A) don and doffing hospital gown due to telemetry. Dressing LE Sitting in bed (I) with don and doffing (B) socks. (I) with pulling down and up pants when performing toileting routine. GROOMING Standing at sink with FWW for balance and first time standing, pt was able to stand with (S) (I) brushing her teeth with opening tooth paste hand to mouth performance and performance of teeth brushing without (A) provided. TOILETING On toilet with (S) for functional mobility to toilet, (I) with toile ting hygiene. EATING Sitting in bed with pillow behind back for support. Pt was was able to (I) open containers, (I) perform food to mouth translation, no issues with chewing or swallowing. Pt was able to cut her food with (B) hand use with use of silverware. She eats with fingers and demonstrates ideal control of pincer grasp. BALANCE: Static sitting Normal Dynamic Sitting Normal Static Standing Good Dynamic Standing Normal SPECIAL TESTS: Daily Activity Limitations Standardized Measure [facility] AM -PAC ?6 clicks? Daily Activity Inpatient Short Form: Raw score: 23 Standardized score: 51.12 CMS score: 15.86% INFORMED CONSENT/EDUCATION: Pt instructed in purpose of OT Consult and plan of care. ASSESSMENT: Patient is a 28-year-old female referred to occupational therapy services with diagnosis of acute focal neurological deficit, atypical chest pain, back pain, hx if intravenous drug abuse which she is currently seeking help with through the [facility] program. Patient presents with clinical signs and symptoms consistent with dx, as demonstrated by the following impairment level findings: Pain in lower back, pain in (B) knees with walking, decreased standing tolerance due to pain. Impairments are contributing to the following functional limitations: Decreased standing tolerance for performance of ADLs. Pt was seen for OT consult only. She is functioning at her baseline level of function at this time and feels that she can perform her ADLs as she could previously which was demonstrated through functional assessment at todays session. OT will plan to discharge pt from skilled OT services at this time. AMPAC score 23 Patient is assessed as a Low 23124 complexity based on the following: History: See above Examination: See functional limitations as noted above Presentation: Evolving Decision Making: AMPAC score-23 GOALS N/A seen for OT consult only. PLAN OF CARE/TREATMENT PLAN: 1x/day, 5 days/ week x 1week Initiate Occupational Therapy Services for bathing, dressing, grooming, toileting, eating, transfer training. DISCHARGE RECOMMENDATIONS OT recommends that pt return home with medically cleared per MD. Pt would benefit from a shower seat to increase her safety performance during bathing routine. TREATMENT TIME/MINUTES/CODES [id number], [id number], 45 minutes (07:35-08:15, 09:05- 09:10) Judit Mercedes OTR/[facility]
[2019-07-15] MEDS: Mometasone 220 MCG 14 DOSE INHALER IH ×2 (08:02→19:46)
[2019-07-15] MEDS: MAGNESIUM SULFATE 4 GM/100 ML BAG IVPB (08:14)
[2019-07-15] MEDS: Magnesium Oxide 400 MG TAB 800 MG PO (08:15)
[2019-07-15] MEDS: Cyclobenzaprine 10 MG TAB 5 MG PO ×2 (08:16→19:45)
[2019-07-15] MEDS: Docusate Sodium 100 MG CAP PO ×2 (08:16→19:45)
[2019-07-15] MEDS: Aspirin E.C. 81 MG TABEC PO (08:16)
[2019-07-15] MEDS: Clopidogrel 75 MG TAB PO (08:17)
[2019-07-15] MEDS: hydrOXYzine HCL 25 MG TAB PO ×3 (08:17→19:45)
[2019-07-15] MEDS: Pantoprazole 40 MG TABCR PO (08:17)
[2019-07-15] MEDS: Senna TAB 1 TAB PO ×2 (08:17→19:45)
[2019-07-15] MEDS: Metoprolol CR 25 MG TABCR 50 MG PO (08:18)
[2019-07-15] MEDS: Pregabalin 25 MG CAP 75 MG PO ×2 (08:18→13:49)
--- NOTE | 2019-07-15 09:27 | IN_ITS ---
PT Notes Visit Reasons: SUSPECTED ACUTE TIA/CVA VS ATYPICAL MIGRAINE Inpatient Physical Therapy Evaluation Date: 07/15/19 Referring Doctor: Dr. Hdez PT Orders: PT CONSULT: limited ability to ambulate Precautions: fall, standard Patient Profile/Admitting Diagnosis: Patient admitted for medical management and diagnostics after developing sudden onset RLE and RUE weakness. She has a h/o multiple TIAs, strokes and aneurysms. PMHX: ADD (attention deficit disorder) (Acute) Aneurysm of ophthalmic artery (Acute) L, s/p stent Asthma (Chronic) Atrial septal aneurysm (Acute) Blood bacterial culture positive (Resolved) Chronic daily headache (Chronic) Chronic pain (Chronic) Chronic systolic CHF (congestive heart failure) (Acute) EF 50% in 08/2018 - [facility] [place] Community acquired bacterial pneumonia (Resolved) Depression (Chronic) Fibromyalgia (Acute) Hepatitis C infection (Chronic) History of intravenous drug abuse (Chronic) Intracranial aneurysm (Acute) Migraine headache with aura (Chronic ~2000) Nephrolithiasis (Chronic) Opioid dependence in controlled environment (Chronic) PFO (patent foramen ovale) (Acute) PTSD (post-traumatic stress disorder) (Chronic) Scoliosis (Chronic) Seizures (Acute) Spondylosis of lumbar spine (Acute) SVT (supraventricular tachycardia) (Inactive) S/p ablation Therapeutic opioid induced constipation (Resolved) Social History/Home Situation: Patient lives in a rented room with her boyfriend. She has a cane at home, which she uses intermittently. States that she has had previous episodes of LE weakness necessitating use of cane, and she also occasionally relies on her boyfriend for support when walking. She reports a single fall in the past year, which occurred after a syncopal episode in the shower. Equipment Owned/DME: cane Subjective: Ghada states that she's extremely tired. She was in the ER until 4am and hasn't slept much. She describes central low back pain of 1 week duration, without exacerbating event. States the pain comes on when she leans forward, and is almost completely alleviated when she sits down. She denies any new onset numbness or tingling, although states that when her pain is bad she does feel it down both legs. She reports that she has Tejeda rods which were placed in 2007 at [facility]. Objective: General Observation: Resting in bed at initiation of session. Patient has teds hose, IV in RUE, and telemetry in place. Mental Status: Oriented x3. Patient is sleepy, closing eyes throughout session. With sustained conversation, she is able to maintain effective level of alertness. Pain: Central low back pain with prolonged standing ROM: Cervical and upper extremity range of motion are WFL. Lower extremity ROM WFL bilaterally Patient functionally demonstrates trunk flexion to 60 degrees, able to forward flex at sink, although with increased low back pain. She is additionally able to demonstrate seated trunk flexion with elbow support to thighs, although again with exacerbation of low back pain. Tolerates trunk extension to just beyond neutral. Strength: Right Upper Extremity: Shoulder flexion 3/5 or greater. Elbow flexion and extension 3/5 or greater. Patient Safety Sitter is weak on the right, diminished by approximately 50% as compared to the left. Left Upper Extremity: Shoulder flexion 3/5 or greater. Elbow flexion and extension 3/5 or greater. Patient Safety Sitter is weak on the right, diminished by approximately 50% as compared to the left. Right Lower Extremity: Hip flexion 3/5 or greater. Quads 4-/5 on the right. Ankle dorsiflexion 5/5. Left Lower Extremity: Hip flexion 3/5 or greater. Quads 5/5 . Ankle dorsiflexion 5/5. Sensation: Intact to light touch through the plantar aspect of both feet Bed Mobility/Transfers: Supine?sit: Independent Sit?supine: Independent Sit?stand: Supervision Stand?sit: Supervision Gait: Patient ambulates 125 feet with FW W and CGA. She demonstrates short distance ambulation (10 feet) in her room with supervision only and use of FW W. At end of session, she demonstrates independent transfer without upper extremity support for approximately 3 feet, with good safety awareness and functional strength. She is able to turn and transition stand to sit without upper extremity support and without loss of balance. Balance: Static Sitting: Good Dynamic Sitting: Good Static Standing: Good Dynamic Standing: Good Neuro: Coordination is diminished with rapid alternating movements of the lower extremities; intact with rapid alternating movements of the upper extremities. Kinesthetic awareness is normal. Patient is able to demonstrate effective visual tracking, although with symptoms of dizziness resulting. Special Tests: [facility] Mob[facility] Inpatient Short Form: Raw Score: 21 CMS Score: 29% deficit Informed Consent/Education: Patient instructed in purpose of PT consult and plan of care. Assessment: Patient is a 28 year old female referred to physical therapy services with the diagnosis of limited ability to ambulate. Patient presents with clinical signs and symptoms consistent with mobility deficits related to acute onset right lower extremity weakness. She has now been admitted into acute care for further work-up and medical management. She demonstrates baseline level of mobility, and effective safety with transfers and short distance ambulation. She is safe for discharge home once medically cleared. No further PT intervention required in acute care setting at this time. She currently demonstrates the following impairment level findings: 1. Lower extremity weakness 2. Decreased coordination Impairments are contributing to the following functional limitations: 1. Decreased tolerance to community distance ambulation Patient is assessed as Moderate 42834 complexity based on the following: History: 28-year-old female presenting with acute onset right lower extremity weakness, and the presence of mobility deficits related to multiple medical comorbidities. Complicating factors include history of multiple TIAs, strokes, and aneurysms, in addition to hep C, PTSD, and presence of Tejeda rods due to scoliosis. Examination: Functional imitations as noted above Presentation: evolving Decision Making: moderate complexity Plan of Care/Treatment Plan: No further PT intervention required in acute care setting. DISCHARGE RECOMMENDATIONS: Home without equipment needs TREATMENT CODE/TIME: 25 minutes ([id number]) Denise Bello, PT, DPT [facility]
[2019-07-15] MEDS: Methadone Liquid 10 MG/ML 114 MG PO (09:48)
[2019-07-15] MEDS: Albuterol/Ipratropium 3 ML UPD VIAL UPD (09:49)
--- NOTE | 2019-07-15 09:58 | INITIAL_ITS ---
- If Service Date Differs Date of service: 07/15/19 Time of Service: 09:58 Care Management Initial Assess REASON FOR HOSPITALIZATION:: Suspected Acute TIA/CVA vs Atypical Migraine PAST MEDICAL HISTORY/PAST SURGICAL HISTORY:: Medical History (Updated 07/15/19 @ 01:49 by Rosie Hdez MD). ADD (attention deficit disorder) (Acute). Aneurysm of ophthalmic artery (Acute). L, s/p stent. Asthma (Chronic). Atrial septal aneurysm (Acute). Blood bacterial culture positive (Resolved). Chronic daily headache (Chronic). Chronic pain (Chronic). Chronic systolic CHF (congestive heart failure) (Acute). EF 50% [place]2018 [place] [facility] [place] Community acquired bacterial pneumonia (Resolved). Depression (Chronic). Fibromyalgia (Acute). Hepatitis C infection (Chronic). History of intravenous drug abuse (Chronic). Intracranial aneurysm (Acute). Migraine headache with aura (Chronic ~2000). Nephrolithiasis (Chronic). Opioid dependence in controlled environment (Chronic). PFO (patent foramen ovale) (Acute). PTSD (post-traumatic stress disorder) (Chronic). Scoliosis (Chronic). Seizures (Acute). Spondylosis of lumbar spine (Acute). SVT (supraventricular tachycardia) (Inactive). S/p ablation. Therapeutic opioid induced constipation (Resolved). Surgical History (Updated 07/15/19 @ 01:03 by Rosie Hdez MD). H/O lithotripsy (Acute). History of (Resolved). History of cerebral aneurysm repair (Resolved ~2014). S/P cystoscopy with ureteral stent placement (Resolved). S/P tubal ligation (Resolved). Status post ablation operation for arrhythmia (Acute). SVT. Status post thoracic spinal fusion (Resolved) PREVIOUS FUNCTIONAL STATUS/SOCIAL/FAMILY SUPPORTS:: Ghada lives in [place] with family, where her and her boyfriend rent a room. She is currently unemployed, seeking disability, and is connected with [facility]. She also has support from a is project manager, Rafael. She has previously had support from Naz Saldivar at [facility], but states that she has not seen her recently. She is mostly independent with her ADL's, although her pain causes her difficulty at times to complete them. CURRENT FUNCTIONAL STATUS:: Ghada was sitting up in a wheelchair when CM met with her. She was getting ready to go to an MRI. She reported that she was feeling ok, and her only current concern was that she is looking for a shower bench, as it will help improve her quality of life, and ability to perform ADL's. Per report, OT has recommended it. CM will have orders signed and sent to [facility] for review. CM will continue to follow. ADVANCE DIRECTIVES:: None on file. Has patient been provided with information about the portal?: No Did the patient sign up for the portal?: No CODE STATUS:: Full Code INSURANCE COVERAGE / FINANCIAL ISSUES:: [facility] CURRENT HOME/COMMUNITY SERVICES/EQUIPMENT:: [facility], [facility], [facility]. Ghada currently has a cane, and is hoping to receive a shower bench. PRIMARY CARE PHYSICIAN:: Frances Sorensen POTENTIAL DISCHARGE NEEDS:: Follow up appointments, evaluations for further needs PATIENT/FAMILY EDUCATION NEEDS:: Review discharge instructions regarding activity levels and medications, discussion of self care needs including ask me three ANTICIPATED BARRIERS TO DISCHARGE:: None identified at this time. TRANSPORTATION:: Anticipate Ghada will transport via private vehcile by friends vs RCT PLAN:: Ghada will have additional testing today, and her discharge plan is TBD, based on the test results. There are consults in for PT/OT and Neuro. Further evaluations needed to determine appropriate discharge plan. CM will continue to follow.
[2019-07-15] MEDS: diazePAM 10 MG/2 ML SYR 5 MG IVP (11:19)
[2019-07-15] MEDS: Normal Saline Flush 10 ML SYR IVP (11:20)
--- NOTE | 2019-07-15 12:14 | DI.MRI_ITS ---
EXAM: MR BRAIN WO AND MR ANGIO BRAIN WO CLINICAL HISTORY: suspected CVA. TECHNIQUE: Multiplanar multisequence MRI was performed. COMPARISON: CT BRAIN NECK CTA from 07/14/2019 MR ANGIO BRAIN WO from 07/15/2019 FINDINGS: MR examination of the brain and MR angiography of the brain are interpreted in conjunction. The MR an giogram was performed according to the usual protocol including 3D [id number] imaging. The exami nation is of poor technical quality and, similar to the CT angiogram obtained yesterday, shows diffus amelie small intracerebral vessels with poor definition of the vessel contours on the MR. No gross evide nce of occlusion seen on evaluation of the raw [id number] images. The tumble images are very oakley ited due to artifact. There is an old right frontal cortical infarction. Areas of abnormal signal seen adjacent to the old infarct on T2 weighted and FLAIR imaging may represent adjacent areas of ischemia. Diffusion weighte d imaging shows no evidence of acute or subacute infarction in this area. Small old right lacunar inf arct. No other significant signal abnormality identified in the brain on routine imaging. Susceptibi lity weighted imaging shows 2 small foci of abnormal signal in left cerebral hemisphere, these do not correlate to any signal abnormality on the remaining MR sequences or on the recent cranial CT. The se may represent small old foci of hemorrhage. The orbital and temporal bone structures appear intact. IMPRESSION: No evidence of acute intracranial process. Apparent old right frontal cortical infarct. MR angiography very limited technically, please see recent CTA results for evaluation of the intracra nial circulation. DATA REPOSITORY:
--- NOTE | 2019-07-15 12:15 | DI.MRI_ITS ---
EXAM: MR BRAIN WO AND MR ANGIO BRAIN WO CLINICAL HISTORY: suspected CVA. TECHNIQUE: Multiplanar multisequence MRI was performed. COMPARISON: CT BRAIN NECK CTA from 07/14/2019 MR ANGIO BRAIN WO from 07/15/2019 FINDINGS: MR examination of the brain and MR angiography of the brain are interpreted in conjunction. The MR an giogram was performed according to the usual protocol including 3D [id number] imaging. The exami nation is of poor technical quality and, similar to the CT angiogram obtained yesterday, shows diffus amelie small intracerebral vessels with poor definition of the vessel contours on the MR. No gross evide nce of occlusion seen on evaluation of the raw [id number] images. The tumble images are very oakley ited due to artifact. There is an old right frontal cortical infarction. Areas of abnormal signal seen adjacent to the old infarct on T2 weighted and FLAIR imaging may represent adjacent areas of ischemia. Diffusion weighte d imaging shows no evidence of acute or subacute infarction in this area. Small old right lacunar inf arct. No other significant signal abnormality identified in the brain on routine imaging. Susceptibi lity weighted imaging shows 2 small foci of abnormal signal in left cerebral hemisphere, these do not correlate to any signal abnormality on the remaining MR sequences or on the recent cranial CT. The se may represent small old foci of hemorrhage. The orbital and temporal bone structures appear intact. IMPRESSION: No evidence of acute intracranial process. Apparent old right frontal cortical infarct. MR angiography very limited technically, please see recent CTA results for evaluation of the intracra nial circulation. DATA REPOSITORY:
[2019-07-15] MEDS: Gadoterate meglumine 20 ML VIAL IVP (12:38)
--- NOTE | 2019-07-15 12:53 | DI.MRI_ITS ---
EXAM: MR LUMBAR SPINE WO/W CLINICAL HISTORY: lower back pain. TECHNIQUE: Multiplanar multisequence MRI was performed. COMPARISON: No exams were available for comparison FINDINGS: MR examination of the lumbosacral spine was performed according to the usual protocol with additional pre and post contrast axial and sagittal T1 fat sat imaging. No bony signal abnormality seen in the lumbar region. There are Tejeda rods in place in the lower thoracic spine. The conus medullari s appears intact as visualized. No evidence of an epidural abscess. No enhancing lesion or mass les ion seen. No evidence of disc herniation. No central canal spinal stenosis or neural foraminal sten osis. SI joints appear intact as visualized. IMPRESSION: No evidence of acute process. Tejeda rods noted in the lower thoracic spine. DATA REPOSITORY:
--- NOTE | 2019-07-15 13:15 | W.NEUROCONSU ---
Date of service: 07/15/19 Time of Service: 16:07 Assessment and Plan Assessment and plan (1) Right hemiparesis: Status: Acute (2) Abnormal movements: Status: Acute (3) Altered mental status: Status: Acute (4) Hypersomnia: Status: Acute (5) Chronic headache: Status: Acute (6) Medication overuse headache: Status: Acute (7) PFO (patent foramen ovale): Status: Acute Assessment and plan: Ms. Ervin is a 28 year-old, right-handed woman with a complicated cerebrovascular history as detailed in the HPI. She was admitted with various symptoms including twitching, jerking, speech changes, and right-sided weakness. Her neurological exam is noted for right-sided weakness complicated by functional overlay. She has been discharged by PT this am, but her her current symptoms seem much worse from what they are describing. Further, this evening she was quite lethargic which I don't think can be explained by the prn Valium for her MRI. Work-up thus far has ruled out stroke or new aneurysm formation. Given waxing/waning symptoms, I am concerned about seizure. I agree with getting an EEG to look for possible seizure activity. She is at increased risk of seizures due to her prior strokes. Hold off on AEDs at this time. Consider repeat PT consult if still having right-sided weakness in am. Otherwise, some of the twitching/tremors sounded metabolic to me. She is on many centrally acting medications and given cognitive status today, I am concerned about overmedication. Consider reducing centrally acting medications. I also recommend a sleep study as an outpatient given hypersomnia and elevated BMI; she is at high risk for BRIAN. Her previous stroke was thought to be due to in-stent thrombosis which was not supported by later arteriogram. She has a large ASA/PFO. While she did not have a stroke at this time, I am still concerned about her stroke risk. I recommend following back up with cardiology for further evaluation as an outpatient. Finally, headaches continue to be a problem as well as medication overuse. We discussed repeat ONB while she was here in the hospital (she has numerous medication contraindications and many previous trials). She wants to think about this. We can come up with a formal headache treatment plan as an outpatient. We can also perform cognitive testing then as well. History of Present Illness History of Present Illness Chief Complaint: right hemiparesis Narrative: Handedness: right. HPI: Ms. Ervin is a 28-year-old woman with a past medical history of opiate dependence and previous IV drug abuse currently sober, as well as depression, fibromyalgia, severe scoliosis status post Tejeda sonya and thoracic fusion in 2007, AV node ablation for SVT in 2014, PTSD, and hepatitis C. She also has a complicated vascular and headache history as below. I previously met Ms. Ervin in August 2018 when she suffered a stroke in the setting of headache, mild fevers, and flashing lights in her vision. #1. Vascular history -2016: She underwent right paraclinoid/ICA non-ruptured aneurysm coiling with stent-assist in 2 stages. -Jan 2017: right frontal subclinical stroke in setting of increased headaches + fever. The CT head performed at that time was read by radiology as normal though there was a new right frontal hypodensity (comparing CTH from 02/13/17 with 02/16/17). Because the abnormality was not identified, neurology was not consulted for stroke and she was not started on antiplatelets at the time. She had 1 out of 2 blood cultures positive at that time with staph saprophyticus. This was thought to be contaminant. She had an LP that was unremarkable at that time. She was treated with doxepin and hydroxyzine with modest improvement in her headache. -August 2018: increased headaches, flashing lights, + fever. She was transferred to [facility] for further care. Etiology of her stroke was thought to be due to thrombosed aneurysm coil/stent vs cardioembolic. She was placed on ASA + Plavix for secondary stroke prevention. 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 She consulted with [facility] cardiology in September 2018 for ASA with large shunt/PFO. They did not recommend closure at that time unless she had further strokes. Work-up for August 2018 Stroke: -LP: 2 WBC, 1 RBC, 55 glucose, 27 protein; no OP due to pt discomfort; closing pressure was 35 complicated by elevated BMI and pain/distress; -MRI brain: old right frontal encephalomalacia but additionally shows multiple areas of small acute ischemia in the right occipital, parietal, and frontal lobes. -MRA head: limited by motion artifact but did not show any significant stenosis or aneurysmal formation. -CTA head and neck: unremarkable but complicated by artifact from her coiling. -CTV ([facility]): unremarkable -TTE ([facility]): LV mildly dilated with EF 45%; diffuse hypokinesis; LA mildly dilated; +PFO -SIOBHAN ([facility]): large aneurysmal inter-atrial septum with PFO (aka ASA with large shunt); otherwise unchanged from TTE -Cardiac MRI ([facility]): reduced EF at 41% with global hypokinesis; mildly dilated RV with normal function; no delayed enhancement to suggest previous infarct, myocarditis, or infiltrative disease of the LV or RV; -LE DVT scan: negative bilaterally -Fundoscopy at [facility] by ophtho: normal; no papilledema -Cerebral arteriogram (11/03/18 at [facility]): ?No substantial recurrence of right-sided periophthalmic aneurysm. No evidence of ICA stenosis. 3mm left ophthalmic aneurysm.? -Abnormal Labs: ESR 21 (25 at [facility]), CRP 7.39 (4.5 at [facility]) -Normal Labs: LDL 70, A1c 5.3 -Dec 2018: She underwent stent-assisted coiling of left ophthalmic non-ruptured aneurysm which on repeat examination had turned into 3 small aneurysms involving the left supraclinoid ICA. This was complicated by post-op bilateral UE and LLE numbness along with flashing lights in her vision/visual obscurations. An MRI of c-spine and L-spine were performed. They were both unremarkable except for mild lumbar curvature. She was seen in the [facility] ER on 01/30/19 for multiple episodes of LOC preceded by pre-syncope, one occurring in the shower. -June 2019, aka NOW: Ghada presented to the [facility] ER on 07/14/19. She is quite lethargic on my exam today. She has trouble recalling current events and gives a somewhat different story then she had to others. Of note, she was given Valium for her MRI >6 hours ago. She has had 1-2 weeks of bilateral UE twitches and tremors with occasional whole body vs limb jerks while sitting and resting. She was told by her family that her speech was slurred and stuttering on 3/21/20. On the day of admission while working around the house, she become suddenly lightheaded. She stopped what she was doing when she had a summon pressure in her head at the same time that her right arm and leg jerked out. It was all instantaneous like a camera flash. She didn't tell anyone, but she was very tired. She laid down and took a ~2hour nap. Sleeping in the day is apparently not unusual for her. She notes sleeping 9+ hours per night with long naps during the day. She has never had a sleep study. After she awoke, her BF noted something was wrong with her. She had a terrible headache. The BF noted slurred speech followed by non-sensical speech. He noted a facial droop (side?). When she got up, she noticed her right leg was giving out from under her and her right hand is clumsy. Initially she told me she has had right-sided weakness since her prior strokes, but then later she wasn't sure how long she has right-sided weakness (of note, her prior strokes were in the right hemisphere...and thus would not cause right-sided symptoms). She was seen by PT earlier today and discharged without any further needed treatment. Since admission, she notes no change in her weakness but improvement in her speech. She has also been noting intermittent twitching of her right face. She continues on ASA + Plavix. She has a reported history of childhood seizures. She is not on control as she had a tubal ligation in 2015. She has a family history of paternal aunt who from cerebral aneurysm in her 30s. She also has a family history of heart disease in her father. She never followed up with neurology after her stroke in August 2018 and has not followed up with neurosurgery since her recent coiling due to transportation issues. Work-up this admission: -CTH: no acute findings. I reviewed these images personally. -CTA head and neck: diminutive intracranially, but patent throughout. I reviewed these images personally. -MRI brain: no acute findings. Old right frontal infarct. 2 new but old areas of prior hemorrhage in the left parietal and frontal cortex (small), compared to 2019 MRI. This is presumably due to recent coiling. I reviewed these images personally. -MRA head: uninterpretable due to motion artifact. I reviewed these images personally. #2. Headaches. She has a long history of migraine headaches since age 10. Her headaches are generally right-sided and then progress to involve the entire head. She has a long history of medication overuse associated with her headaches including [id number] medications, Fioricet, Imitrex, and narcotic pain medications. She previously consulted with [facility] in 2014 but has otherwise not had any other neurological care for her headaches. Previous prophylactic medications include amitriptyline, Depakote, Topamax 50 mg twice daily, Lyrica, Savella, and occipital nerve blocks x1 in March 2015. Previous rescue medications include Zomig, Maxalt, Percocet, Fioricet, Imitrex, Excedrin, ibuprofen, Tylenol, Aleve, Excedrin, and hydroxyzine. During her August 2018 hospitalization, she was treated with APAP, tizainidine, and toradol with minimal improvement. She seemed to respond to IV Depakote 500mg TID, IV Mag 1gm daily and increasing her gabapentin. She recalls getting injections in her head (possibly Botox???) that she never wants to get again in (her) life, though it helped for several weeks. She did not recall having ONB in the past. She is currently using a combination of naproxen and hydroxyzine daily for seizures. Consults Requesting physician: Debra Haro Review of Systems All systems reviewed & are unremarkable except as noted in HPI and below [facility] History ADD (attention deficit disorder) (Acute) Aneurysm of ophthalmic artery (Acute) L, s/p stent Asthma (Chronic) Atrial septal aneurysm (Acute) Blood bacterial culture positive (Resolved) Chronic daily headache (Chronic) Chronic pain (Chronic) Chronic systolic CHF (congestive heart failure) (Acute) EF 50% in 08/2018 - [facility] Community acquired bacterial pneumonia (Resolved) Depression (Chronic) Fibromyalgia (Acute) Hepatitis C infection (Chronic) History of intravenous drug abuse (Chronic) Intracranial aneurysm (Acute) Migraine headache with aura (Chronic ~2000) Nephrolithiasis (Chronic) Opioid dependence in controlled environment (Chronic) PFO (patent foramen ovale) (Acute) PTSD (post-traumatic stress disorder) (Chronic) Scoliosis (Chronic) Seizures (Acute) Spondylosis of lumbar spine (Acute) SVT (supraventricular tachycardia) (Inactive) S/p ablation Therapeutic opioid induced constipation (Resolved) Surgical History H/O lithotripsy (Acute) History of (Resolved) History of cerebral aneurysm repair (Resolved ~2014) S/P cystoscopy with ureteral stent placement (Resolved) S/P tubal ligation (Resolved) Status post ablation operation for arrhythmia (Acute) SVT Status post thoracic spinal fusion (Resolved) Family History Paternal Aunt Cerebral aneurysm Diabetes Hypertension Maternal Aunt Migraines Maternal Grandmother Heart disease Hypertension Migraines Paternal Grandmother Heart disease Diabetes Father Diabetes Hypertension Maternal Grandfather Diabetes Paternal Uncle Diabetes Hypertension Paternal Grandfather Hypertension Brother Migraines Mother Migraines Social History Smoking/Tobacco Use Status: Current every day Tobacco Type: cigarettes Quit status: considering quitting Alcohol Intake: former Drug use: Current Sobriety Substance use type: former substance user, marijuana, crack/cocaine, heroin, opiates and IV drugs Details: former heroin and cocaine user, 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 only drugs that she uses currently is marijuana Household members: other Details: lives w/ cousin's ex- and her children Number of Children: 3 Do you feel safe at home: Yes Do you feel safe in your relationship?: Yes History History 2 Para 3 Hx # Term Pregnancies 2 Multiple births Hx # Pregnancies Ectopic pregnancies AB induced Hx Number of Living Children 3 AB spontaneous Visit Medication and Allergies Active Medications Generic Name Dose Route Start Last Admin Trade Name Freq PRN Reason Stop Dose Admin Acetaminophen 1,000 mg 07/15/19 02:00 07/15/19 08:15 Tylenol PO 1,000 mg Q6H SAMIR Administration Al Hydrox/Mg Hydrox/Simethicone 30 ml 07/15/19 00:10 Mylanta Liquid PO Q2H PRN PRN Albuterol Sulfate 0 puff 07/15/19 01:51 Ventolin Hfa IH Q6H PRN PRN Albuterol/Ipratropium 3 ml 07/15/19 13:00 Duoneb Updraft UPD Q4H PRN PRN Aspirin 81 mg 07/15/19 08:30 07/15/19 08:16 Ecotrin PO 81 mg DAILY SAMIR Administration Bisacodyl 5 mg 07/15/19 01:53 Dulcolax PO DAILY PRN PRN Clopidogrel Bisulfate 75 mg 07/15/19 08:30 07/15/19 08:17 Plavix PO 75 mg DAILY [facility] Administration Cyclobenzaprine HCl 5 mg 07/15/19 08:30 07/15/19 08:16 Flexeril PO 5 mg BID [facility] Administration Dimethicone/Zinc Oxide 0 gm 07/15/19 00:10 Sharon Protect Cream TP PRN PRN Diphenhydramine HCl 25 mg 07/15/19 01:51 Benadryl PO HS PRN PRN Docusate Sodium 100 mg 07/15/19 08:30 07/15/19 08:16 Colace PO 100 mg BID [facility] Administration Hydroxyzine HCl 25 mg 07/15/19 08:30 07/15/19 08:17 Atarax PO 25 mg TID [facility] Administration Sodium Chloride 1,000 mls @ 150 mls/hr 07/15/19 02:00 07/15/19 08:14 Saline 1000ml Bag IV 150 mls/hr INFUSION SAMIR Administration IV Miscellaneous Supplies 1 each 07/15/19 00:15 IV DIRECTED SAMIR Iohexol 100 ml 07/14/19 23:00 07/14/19 22:56 Omnipaque 350 IJ 08/13/19 23:59 85 ml DIRECTED [facility] Administration Magnesium Hydroxide 30 ml 07/15/19 00:10 Milk Of Magnesia PO DAILY PRN PRN Methadone HCl 114 mg 07/15/19 08:30 07/15/19 09:48 Dolophine Liquid PO 114 mg DAILY [facility] Administration Metoprolol Succinate 50 mg 07/15/19 08:30 07/15/19 08:18 Toprol Xl PO 50 mg DAILY [facility] Administration Mometasone Furoate 0 puff 07/15/19 08:30 07/15/19 08:02 Asmanex 220 Twisthaler IH 2 puffs BID [facility] Administration Naproxen 375 mg 07/15/19 01:51 07/15/19 03:55 Naprosyn PO 375 mg TID PRN PRN Administration Nicotine 30 cartridge 07/15/19 01:06 Nicotrol 30 Cartridges/Pack IH Q2H PRN PRN Pantoprazole Sodium 40 mg 07/15/19 07:30 07/15/19 08:17 Protonix PO 40 mg DAILY@0730 SAMIR Administration Paroxetine HCl 20 mg 07/15/19 22:00 Paxil PO HS SAMIR Pregabalin 75 mg 07/15/19 08:30 07/15/19 08:18 Lyrica PO 75 mg 0830,1400 SAMIR Administration Pregabalin 150 mg 07/15/19 22:00 Lyrica PO HS SAMIR Sennosides 1 tab 07/15/19 08:30 07/15/19 08:17 Senokot PO 1 tab BID SAMIR Administration Sodium Chloride 50 ml 07/14/19 23:00 07/14/19 22:58 Saline 50 Ml Diluent Vial IV 50 ml .FOR DI USE SAMIR Administration Sodium Chloride 0 ml 07/15/19 00:10 Saline Flush 10 Ml Syringe IVP PRN PRN Allergies meperidine HCl [From Demerol] Allergy (Severe, Unverified 07/14/19 21:17) Anaphylaxsis venom-honey bee [bee venom (honey bee)] Allergy (Severe, Unverified 07/14/19 21:17) anaphylaxis lithium Adverse Reaction (Mild, Unverified 07/14/19 21:17) NAUSEA sertraline HCl [From Zoloft] Adverse Reaction (Mild, Unverified 07/14/19 21:17) NIGHTMARES Exam Narrative Exam Narrative: Physical Exam: Gen: Patient of apparent stated age, NAD; very lethargic; unresponsive initially and then came to and talked with me; periodically unresponsive during the visit as well; Head and face: no facial or cranial abnormalities Neck: Supple, no meningismus, no occipital tenderness CV: + S1, S2, RRR, no murmur Resp: CTA B/L Abd: soft, nontender, nondistended Ext: No edema. No clubbing or cyanosis. No bony deformity. Neuro Exam: Language: fluency, naming, repetition, and comprehension intact; Mental Status: lethargic, current events and fund of knowledge impaired; Speech: ? subtle dysarthria Cranial nerves: Funduscopy: not performed CN II: visual ching intact CN III, IV, : extraocular movements intact, no nystagmus, pupils symmetric and reactive to light CN V: face sensation reduced to LT and PP on the right; split vibration across the forehead; CN VII: ?subtle R nasolabial fold flattening CN VIII: hearing intact bilaterally CN IX, X: palate rises symmetrically CN XI: trapezius/SCM 5/5 bilaterally CN XII: protrudes tongue symmetrically Sensory: intact to LT; reduced PP in right hemibody; reduced vibration in RUE only; joint position with exact opposite answers each time on the right; Motor: bulk and tone intact. Fine motor movements reduced on the right. No pronator drift. Strength 5/5 in the RUE complicated by give-way weakness. RLE weakness again complicated by give way weakness/effort. Reflexes: hyporeflexic throughout; toes down going bilaterally; Coordination: FTN and HTS intact bilaterally Gait: deferred due to right leg weakness/lethargy; unsafe to do so at this time; Results Last Vital Signs Temp 36.7 C 07/15/19 07:20 Pulse 84 07/15/19 07:20 Resp 18 07/15/19 07:20 BP 133/75 07/15/19 07:20 Pulse Ox 97 07/15/19 08:00 Labs Result diagrams: 07/15/19 06:03 07/15/19 06:03 Labs: Laboratory Results - last 24 hr 07/14/19 07/14/19 07/14/19 21:41 21:41 21:41 WBC 8.89 RBC 3.91 L Hgb 11.3 L Hct 35.6 L MCV 91.0 MCH 28.9 MCHC 31.7 L RDW 15.0 H Plt Count 327 MPV 10.1 Immature Gran % 0.1 Neutrophils % 57.2 Lymphocytes % 34.3 Monocytes % 5.5 Eosinophils % 2.8 Basophils % 0.1 Absolute Neutrophils 5.08 Absolute Lymphocytes 3.05 Absolute Monocytes 0.49 Absolute Eosinophils 0.25 Absolute Basophils 0.01 Differential Comment RBC Morphology Hypochromasia Anisocytosis ESR 24 H PT 9.6 INR 1.0 APTT 26.8 Sodium 142 Potassium 4.0 Chloride 105 Carbon Dioxide 29.8 Anion Gap 7.2 BUN 17 Creatinine 0.83 Estimated GFR/1.73 m2 >= 60.00 Glucose 120 H Calcium 8.3 L Magnesium Total Bilirubin 0.2 AST 27 ALT 38 Alkaline Phosphatase 124 H Troponin I < 0.05 C-Reactive Protein 1.29 H Total Protein 7.3 Albumin 3.3 L Triglycerides Total Cholesterol LDL Cholesterol, Calc HDL Cholesterol TSH 0.86 Urine Color Urine Clarity Urine pH Ur Specific Ubly Urine Protein Urine Ketones Urine Blood Urine Nitrite Urine Bilirubin Urine Urobilinogen Ur Leukocyte Esterase Urine Glucose Urine Opiates Screen Urine Methadone Screen Ur Barbiturates Screen Ur Tricyclics Screen Ur Amphetamines Screen U Benzodiazepines Scrn Urine Cocaine Screen Ur THC Screen 07/14/19 07/15/19 07/15/19 21:41 00:00 01:45 WBC RBC Hgb Hct MCV MCH MCHC RDW Plt Count MPV Immature Gran % Neutrophils % Lymphocytes % Monocytes % Eosinophils % Basophils % Absolute Neutrophils Absolute Lymphocytes Absolute Monocytes Absolute Eosinophils Absolute Basophils Differential Comment RBC Morphology Hypochromasia Anisocytosis ESR PT INR APTT Sodium Potassium Chloride Carbon Dioxide Anion Gap BUN Creatinine Estimated GFR/1.73 m2 Glucose Calcium Magnesium Total Bilirubin AST ALT Alkaline Phosphatase Troponin I < 0.05 C-Reactive Protein Total Protein Albumin Triglycerides Total Cholesterol LDL Cholesterol, Calc HDL Cholesterol TSH Urine Color Yellow Urine Clarity Sl cloudy Urine pH 6.0 Ur Specific Ubly >= 1.030 H Urine Protein Negative Urine Ketones Negative Urine Blood Negative Urine Nitrite Negative Urine Bilirubin Negative Urine Urobilinogen 0.2 Ur Leukocyte Esterase Negative Urine Glucose Negative Urine Opiates Screen Negative Urine Methadone Screen Positive A Ur Barbiturates Screen Negative Ur Tricyclics Screen Negative Ur Amphetamines Screen Negative U Benzodiazepines Scrn Negative Urine Cocaine Screen Negative Ur THC Screen Negative 07/15/19 07/15/19 06:03 06:03 WBC 9.48 RBC 3.42 L Hgb 9.8 L Hct 31.5 L MCV 92.1 MCH 28.7 MCHC 31.1 L RDW 15.2 H Plt Count 254 MPV 10.2 Immature Gran % 0.2 Neutrophils % 66.6 Lymphocytes % 25.2 Monocytes % 6.0 Eosinophils % 1.9 Basophils % 0.1 Absolute Neutrophils 6.31 Absolute Lymphocytes 2.39 Absolute Monocytes 0.57 Absolute Eosinophils 0.18 Absolute Basophils 0.01 Differential Comment Rbc morph reviewed RBC Morphology See below Hypochromasia 1+ Anisocytosis 1+ ESR PT INR APTT Sodium 140 Potassium 4.0 Chloride 106 Carbon Dioxide 29.0 Anion Gap 5.0 BUN 14 Creatinine 0.75 Estimated GFR/1.73 m2 >= 60.00 Glucose 135 H Calcium 7.9 L Magnesium 1.4 L Total Bilirubin AST ALT Alkaline Phosphatase Troponin I C-Reactive Protein Total Protein Albumin Triglycerides 118 Total Cholesterol 129 LDL Cholesterol, Calc 60 HDL Cholesterol 46 TSH Urine Color Urine Clarity Urine pH Ur Specific Ubly Urine Protein Urine Ketones Urine Blood Urine Nitrite Urine Bilirubin Urine Urobilinogen Ur Leukocyte Esterase Urine Glucose Urine Opiates Screen Urine Methadone Screen Ur Barbiturates Screen Ur Tricyclics Screen Ur Amphetamines Screen U Benzodiazepines Scrn Urine Cocaine Screen Ur THC Screen
--- NOTE | 2019-07-15 14:33 | W.NUTCONSULT ---
Date of service: 07/15/19 Time of Service: 14:34 Nutritional Consult ASSESSMENT: 28 year old female admitted with acute focal neurological deficiet, PMH: Hx of CVAs. Following Heart Healthy Diet and meeting 100% nutrient needs. BMI 45 indicates morbid obesity. Met with Ghada today, she reports no dysphagia but does report eating slowly and chewing her food well. Not at nutritional risk at this time. MONITORING AND EVALUATION: weight, po intake, weight Time Spent in Nutritional Counseling and Treatment: 10 min spent face to face
--- NOTE | 2019-07-15 17:08 | PGE_ITS ---
Date of Service Date of service: 07/15/19 Time of Service: 17:08 Subjective Subjective Interval history since last seen: Per Neurology recommendation will wean down sedation medication, as patient has been sleeping an average of 10 hours per day with naps. She was also falling asleep while sitting up. Will wean down atarax, and lyrica. Consider weaning down methadone Objective Objective Clinical Data: Abnormal lab results 07/14/19 07/14/19 07/14/19 Range/Units 21:41 21:41 21:41 RBC 3.91 L (4.00-5.20) m/cumm Hgb 11.3 L (12.0-15.5) g/dL Hct 35.6 L (36.0-46.0) % MCHC 31.7 L (32.0-36.0) g/dL RDW 15.0 H (11.7-14.6) % ESR 24 H (0-20) mm/hr Glucose 120 H (74-106) mg/dL Calcium 8.3 L (8.5-10.1) mg/dL Magnesium (1.8-2.4) mg/dL Alkaline Phosphatase 124 H (46-116) U/L C-Reactive Protein 1.29 H (0.0-0.3) mg/dL Albumin 3.3 L (3.4-5.0) g/dL Ur Specific [place] >= 1.030 H (1.005-1.025) Urine Methadone Screen (Negative) 07/15/19 07/15/19 07/15/19 Range/Units 00:00 06:03 06:03 RBC 3.42 L (4.00-5.20) m/cumm Hgb 9.8 L (12.0-15.5) g/dL Hct 31.5 L (36.0-46.0) % MCHC 31.1 L (32.0-36.0) g/dL RDW 15.2 H (11.7-14.6) % ESR (0-20) mm/hr Glucose 135 H (74-106) mg/dL Calcium 7.9 L (8.5-10.1) mg/dL Magnesium 1.4 L (1.8-2.4) mg/dL Alkaline Phosphatase (46-116) U/L C-Reactive Protein (0.0-0.3) mg/dL Albumin (3.4-5.0) g/dL Ur Specific [place] (1.005-1.025) Urine Methadone Screen Positive A (Negative) Vital Signs Temperature 36.7 C 07/15/19 07:20 Temperature Source Temporal Artery Scan 07/15/19 07:20 Pulse 84 07/15/19 07:20 Pulse Rhythm Regular 07/15/19 08:00 Respiratory Rate 18 07/15/19 07:20 Respiratory Effort Non-Labored 07/15/19 08:00 Respiratory Depth Normal 07/15/19 08:00 Respiratory Pattern Normal 07/15/19 08:00 Blood Pressure 133/75 07/15/19 07:20 Blood Pressure Mean 98 07/14/19 23:01 Pulse Oximetry 97 07/15/19 08:00 Oxygen Delivery Method Room Air 07/15/19 08:00 Oxygen Flow Rate 0 07/15/19 08:00 Pain Level 7 07/15/19 03:55 Comment 07/15/19 07:20 Intake & Output 07/14/19 07/15/19 07/15/19 23:59 11:59 23:59 Intake Total 2378.333 / 2378.333 Output Total 1000 / 1350 350 / 1350 Balance 1378.333 / 1028.333 -350 / 1028.333 Weight 104.326 kg 112.8 kg Intake: IV 2017.333 / 2017.333 Oral 360 / 360 Output: Urine 1000 / 1350 350 / 1350 Other: Urine Color Light Darlene Yellow Urine Appearance Clear Clear Urine Odor None Voiding Methods Toilet Toilet Laboratory Results WBC 9.48 k/cumm (4.4-10.8) 07/15/19 06:03 RBC 3.42 m/cumm (4.00-5.20) L 07/15/19 06:03 Hgb 9.8 g/dL (12.0-15.5) L 07/15/19 06:03 Hct 31.5 % (36.0-46.0) L 07/15/19 06:03 MCV 92.1 fL (80-95) 07/15/19 06:03 MCH 28.7 pg (27.0-33.0) 07/15/19 06:03 MCHC 31.1 g/dL (32.0-36.0) L 07/15/19 06:03 RDW 15.2 % (11.7-14.6) H 07/15/19 06:03 Plt Count 254 x1000/uL (130-400) 07/15/19 06:03 MPV 10.2 fL (8.0-11.0) 07/15/19 06:03 Immature Gran % 0.2 % 07/15/19 06:03 Neutrophils % 66.6 07/15/19 06:03 Lymphocytes % 25.2 07/15/19 06:03 Monocytes % 6.0 07/15/19 06:03 Eosinophils % 1.9 07/15/19 06:03 Basophils % 0.1 07/15/19 06:03 Absolute Neutrophils 6.31 k/cumm (1.2-6.7) 07/15/19 06:03 Absolute Lymphocytes 2.39 k/cumm (1.2-3.4) 07/15/19 06:03 Absolute Monocytes 0.57 k/cumm (0.11-0.7) 07/15/19 06:03 Absolute Eosinophils 0.18 k/cumm (0.0-0.7) 07/15/19 06:03 Absolute Basophils 0.01 k/cumm (0.0-0.2) 07/15/19 06:03 Differential Comment Rbc morph reviewed 07/15/19 06:03 RBC Morphology See below 07/15/19 06:03 Hypochromasia 1+ 07/15/19 06:03 Anisocytosis 1+ 07/15/19 06:03 ESR 24 mm/hr (0-20) H 07/14/19 21:41 PT 9.6 sec (9.3-11.0) 07/14/19 21:41 INR 1.0 (0.9-1.1) 07/14/19 21:41 APTT 26.8 sec (21.0-31.4) 07/14/19 21:41 Sodium 140 mmol/L (136-145) 07/15/19 06:03 Potassium 4.0 mmol/L (3.5-5.1) 07/15/19 06:03 Chloride 106 mmol/L (98-107) 07/15/19 06:03 Carbon Dioxide 29.0 mmol/L (21.0-32.0) 07/15/19 06:03 Anion Gap 5.0 mmol/L (3-11) 07/15/19 06:03 BUN 14 mg/dL (7-18) 07/15/19 06:03 Creatinine 0.75 mg/dL (0.55-1.02) 07/15/19 06:03 Estimated GFR/1.73 m2 >= 60.00 (mL/min/1.73m2) 07/15/19 06:03 Glucose 135 mg/dL (74-106) H 07/15/19 06:03 Calcium 7.9 mg/dL (8.5-10.1) L 07/15/19 06:03 Magnesium 1.4 mg/dL (1.8-2.4) L 07/15/19 06:03 Total Bilirubin 0.2 mg/dL (0.2-1.0) 07/14/19 21:41 AST 27 U/L (15-37) 07/14/19 21:41 ALT 38 U/L (14-59) 07/14/19 21:41 Alkaline Phosphatase 124 U/L (46-116) H 07/14/19 21:41 Troponin I < 0.05 ng/Ml (<0.06) 07/15/19 01:45 C-Reactive Protein 1.29 mg/dL (0.0-0.3) H 07/14/19 21:41 Total Protein 7.3 g/dL (6.4-8.2) 07/14/19 21:41 Albumin 3.3 g/dL (3.4-5.0) L 07/14/19 21:41 Triglycerides 118 mg/dL (<150) 07/15/19 06:03 Total Cholesterol 129 mg/dL (<200) 07/15/19 06:03 LDL Cholesterol, Calc 60 mg/dL (<100) 07/15/19 06:03 HDL Cholesterol 46 mg/dL (40-60) 07/15/19 06:03 TSH 0.86 uIU/mL (0.36-3.74) 07/14/19 21:41 Urine Color Yellow (Yellow) 07/14/19 21:41 Urine Clarity Sl cloudy (Clear) 07/14/19 21:41 Urine pH 6.0 (5-8) 07/14/19 21:41 Ur Specific [place] >= 1.030 (1.005-1.025) H 07/14/19 21:41 Urine Protein Negative mg/dL (Negative) 07/14/19 21:41 Urine Ketones Negative mg/dL (Negative) 07/14/19 21:41 Urine Blood Negative (Negative) 07/14/19 21:41 Urine Nitrite Negative (Negative) 07/14/19 21:41 Urine Bilirubin Negative (Negative) 07/14/19 21:41 Urine Urobilinogen 0.2 EU/dL (Up TO 0.2) 07/14/19 21:41 Ur Leukocyte Esterase Negative (Negative) 07/14/19 21:41 Urine Glucose Negative mg/dL (Negative) 07/14/19 21:41 Urine Opiates Screen Negative (Negative) 07/15/19 00:00 Urine Methadone Screen Positive (Negative) A 07/15/19 00:00 Ur Barbiturates Screen Negative (Negative) 07/15/19 00:00 Ur Tricyclics Screen Negative (Negative) 07/15/19 00:00 Ur Amphetamines Screen Negative (Negative) 07/15/19 00:00 U Benzodiazepines Scrn Negative (Negative) 07/15/19 00:00 Urine Cocaine Screen Negative (Negative) 07/15/19 00:00 Ur THC Screen Negative (Negative) 07/15/19 00:00
[2019-07-15] MEDS: Pregabalin 50 MG CAP 150 MG PO (22:11)
[2019-07-15] MEDS: PARoxetine 20 MG TAB PO (22:11)
[2019-07-16 00:16] VITALS: BP 145/77; PULSE 71; RESP 18; TEMP 36.1; O2SAT 96
[2019-07-16] MEDS: Acetaminophen 500 MG TAB 1000 MG PO ×2 (01:52→08:18)
[2019-07-16 04:00] VITALS: BP 135/74; PULSE 79; RESP 16; TEMP 36.4; O2SAT 97
[2019-07-16 07:18] VITALS: BP 150/86; PULSE 75; RESP 18; TEMP 36.6; O2SAT 98
[2019-07-16] MEDS: Mometasone 220 MCG 14 DOSE INHALER IH (07:42)
[2019-07-16] MEDS: Pregabalin 25 MG CAP 75 MG PO (08:16)
[2019-07-16] MEDS: Metoprolol CR 25 MG TABCR 50 MG PO (08:17)
[2019-07-16] MEDS: Methadone Liquid 10 MG/ML 114 MG PO (08:17)
[2019-07-16] MEDS: hydrOXYzine HCL 25 MG TAB PO (08:17)
[2019-07-16] MEDS: Clopidogrel 75 MG TAB PO (08:18)
[2019-07-16] MEDS: Senna TAB 1 TAB PO (08:18)
[2019-07-16] MEDS: Aspirin E.C. 81 MG TABEC PO (08:18)
[2019-07-16] MEDS: Pantoprazole 40 MG TABCR PO (08:18)
[2019-07-16] MEDS: Docusate Sodium 100 MG CAP PO (08:18)
[2019-07-16] MEDS: Cyclobenzaprine 10 MG TAB 5 MG PO (08:19)
--- NOTE | 2019-07-16 09:22 | DSE_ITS ---
Date of service: 07/16/19 Time of Service: 09:22 DS: Diagnosis Discharge Diagnosis (1) Right hemiparesis: Status: Acute (2) Abnormal movements: Status: Acute (3) Altered mental status: Status: Acute (4) Hypersomnia: Status: Acute (5) Chronic headache: Status: Acute (6) Medication overuse headache: Status: Acute (7) PFO (patent foramen ovale): Status: Acute Discharge Plan Disposition Patient Disposition: AGAINST MEDICAL ADVICE Condition: Stable Discharge Details Chief Complaint: GenMedical Clinical Impression: Stroke-like symptom, Acute right-sided muscle weakness Reason For Visit: SUSPECTED ACUTE TIA/CVA VS ATYPICAL MIGRAINE Admit Date/Time: 07/15/19 00:12 Admit Provider: Rosie Hdez Attending Provider: Rosie Hdez Primary Care Provider: Frances Sorensen ED Provider: Woody Mo Hospital Course Hospital Course: This is a 28 year old female with an extensive past medical history including CVA, R paraclincoind/ICA nonruptured aneurysm coiling/stent, L ophthalmic A aneurysm s/p coiling, R paraophthalmic aneurysm s/p stent, on dual antiplatelet therapy, h/o PFO (per [facility] records), seizure disorder (per [facility] records), as well as h/o atypical migraines, h/o SVT s/p ablation, h/o opioid dependence on methadone, Hepatitis C, h/o drug abuse, ?vasculitis, who had presented to [facility] ED complaining of R-sided weakness and slurred speech. The patient woke up without deficits this morning, but around 11 am experiences a flash-like sensation in her head of pressure from the inside, accompanied by a sudden shake in her RUE/RLE, followed by numbness and weakness in both. The patient states that because of this, she almost fell while trying to go up the stairs. She took a nap at around 3 pm and woke up with a new R facial droop and having difficulty pronouncing words. She also noticed an oily substance running out of her nostrils. She has continues to experience RUE/RLE sudden uncontrollable twinges. She also reports lower midline back pain starting yesterday. Denies numbness/tingling in genital area and has not had any difficulty urinating or incontinence. Does have chronic constipation. Denies fever, but felt cold yesterday. Denies sore throat. Endorses chest pain on and off for several hours yesterday. Denies SOB. Endorses nausea, but no vomiting. States her vision has been blurred all day and that she has been seeing fireflies out of the corner of the eye. Exam in the ED revealed dysdiadokinesis and dysmetria on the right as well as weakness RUE/RLE. CTA head/abdomen negative. Phone consultation with [facility] neuro/neurosurgery recommended that the patient stay at our facility for MRI/MRA/MRV of the brain and undergo a neurology evaluation. It was also recommended to consider an EEG. Work-up thus far has ruled out stroke or new aneurysm formation. She was evaluated by neurology with these recommendations: Given waxing/waning symptoms, concern for seizure. She is at increased risk of seizures due to her prior strokes. Hold off on AEDs at this time and obtain EEG. Patient left AMA prior to receiving EEG. Because she is on many centrally acting medications and given cognitive status, Dr Lay was most concerned about over-medication. she recommended reducing centrally acting medications. She also recommend a sleep study as an outpatient given hypersomnia and elevated BMI; she is at high risk for BRIAN. Her previous stroke was thought to be due to in-stent thrombosis which was not supported by later arteriogram. She has a large ASA/PFO. While she did not have a stroke at this time, she is still concerned about her stroke risk. she recommends following back up with cardiology for further evaluation as an outpatient. Finally, headaches continue to be a problem as well as medication overuse. She discussed repeat ONB while she was here in the hospital (she has numerous medication contraindications and many previous trials). The plan was to come up with a formal headache treatment plan as an outpatient, as well as cognitive testing. patient decided to leave BLESSING. Home Meds and New Rx's Prescriptions: Continued methadone [Dolophine] 10 MG tablet 114 mg PO DAILY RF: 0 acetaminophen [Mapap Extra Strength] 500 MG tablet 1,000 mg PO Q6H 5 Days Qty: 60 RF: 0 paroxetine HCl [Paxil] 10 mg Tablet 20 mg PO HS RF: 0 albuterol sulfate 90 mcg/actuation Hfa Aerosol Inhaler 1 puff INHALATION Q6H PRNRF: 0 docusate sodium [Docusil] 100 mg capsule 100 mg PO DAILY Qty: 60 RF: 0 epinephrine 0.3 mg/0.3 mL auto-injector 0.3 mg IM ONCE PRN (Reason: anaphylaxis) Qty: 1 RF: 1 clopidogrel [Plavix] 75 mg Tablet 75 mg PO DAILY RF: 0 aspirin [Aspir-81] 81 mg Tablet,Delayed Release (Dr/Ec) 81 mg PO DAILY RF: 0 hydroxyzine HCl 25 mg Tablet 25 mg PO TID RF: 0 Flovent HFA 220 mcg/actuation Hfa Aerosol Inhaler 1 puff INHALATION BID RF: 0 lisinopril 5 mg Tablet 5 mg PO DAILY RF: 0 metoprolol succinate 25 mg Tablet Extended Release 24 Hr 50 mg PO DAILY RF: 0 naproxen 375 mg Tablet,Delayed Release (Dr/Ec) 375 mg PO TID PRNRF: 0 pregabalin [Lyrica] 75 mg Capsule See Rx Instructions .ROUTE .COMPLEX RF: 0 diphenhydramine HCl [Benadryl] 25 mg Capsule 25 mg PO QHS PRNRF: 0 cyclobenzaprine 5 mg Tablet 5 mg PO BID RF: 0 Discharge Instructions Diet:: As Tolerated Discharge Orders Discharge Orders: Discharge Order (Routine); Ordered 07/16/19 Ordered By: Bessie Mishra Discharge Data Discharge Date/Time-TO BE ENTERED AT DEPARTURE: 07/16/19 09:03 DS: Summary Status at Discharge Functional status at discharge: independent ambulation Overall status at discharge: patient is not back to baseline Mental Status: other (not observed, patient left ama) Speech and Movement: other Mood: labile mood and other (not observed, patient left ama) Affect: other Exam Narrative Exam Narrative: patient left AMA prior to exam Psych Mental Status: other (not observed, patient left ama) Speech and Movement: other Mood: labile mood and other (not observed, patient left ama) Affect: other DS: Data Vitals/I&O Vitals and I&O: Vital Signs Temperature 36.6 C 07/16/19 07:18 Temperature Source Temporal Artery Scan 07/16/19 07:18 Pulse 75 07/16/19 07:18 Pulse Rhythm Regular 07/16/19 08:23 Respiratory Rate 18 07/16/19 07:18 Respiratory Effort 07/16/19 08:23 Respiratory Depth Normal 07/16/19 08:23 Respiratory Pattern Normal 07/16/19 08:23 Blood Pressure 150/86 H 07/16/19 07:18 Blood Pressure Mean 98 07/14/19 23:01 Pulse Oximetry 98 07/16/19 07:18 Oxygen Delivery Method Room Air 07/16/19 07:18 Oxygen Flow Rate 0 07/16/19 07:18 Pain Level 8 07/16/19 08:18 Comment 07/15/19 07:20 Intake & Output 07/15/19 07/15/19 07/16/19 11:59 23:59 11:59 Intake Total 2378.333 / 3858.333 1480 / 3858.333 Output Total 1000 / 1700 700 / 1700 250 / 250 Balance 1378.333 / 2158.333 780 / 2158.333 -250 / -250 Weight 112.8 kg 112.4 kg Intake: IV 2018.333 / 3018.333 1000 / 3018.333 Oral 360 / 840 480 / 840 Output: Urine 1000 / 1700 700 / 1700 250 / 250 Other: Urine Color Light Darlene Dark Darlene Yellow Urine Appearance Clear Clear Clear Urine Odor Normal Normal Voiding Methods Toilet Toilet [facility] Medical History ADD (attention deficit disorder) (Acute) Aneurysm of ophthalmic artery (Acute) L, s/p stent Asthma (Chronic) Atrial septal aneurysm (Acute) Blood bacterial culture positive (Resolved) Chronic daily headache (Chronic) Chronic pain (Chronic) Chronic systolic CHF (congestive heart failure) (Acute) EF 50% in 08/2018 - [facility] Community acquired bacterial pneumonia (Resolved) Depression (Chronic) Fibromyalgia (Acute) Hepatitis C infection (Chronic) History of intravenous drug abuse (Chronic) Intracranial aneurysm (Acute) Migraine headache with aura (Chronic ~2000) Nephrolithiasis (Chronic) Opioid dependence in controlled environment (Chronic) PFO (patent foramen ovale) (Acute) PTSD (post-traumatic stress disorder) (Chronic) Scoliosis (Chronic) Seizures (Acute) Spondylosis of lumbar spine (Acute) SVT (supraventricular tachycardia) (Inactive) S/p ablation Therapeutic opioid induced constipation (Resolved) Surgical History H/O lithotripsy (Acute) History of (Resolved) History of cerebral aneurysm repair (Resolved ~2014) S/P cystoscopy with ureteral stent placement (Resolved) S/P tubal ligation (Resolved) Status post ablation operation for arrhythmia (Acute) SVT Status post thoracic spinal fusion (Resolved) Family History Paternal Aunt Cerebral aneurysm Diabetes Hypertension Maternal Aunt Migraines Maternal Grandmother Heart disease Hypertension Migraines Paternal Grandmother Heart disease Diabetes Father Diabetes Hypertension Maternal Grandfather Diabetes Paternal Uncle Diabetes Hypertension Paternal Grandfather Hypertension Brother Migraines Mother Migraines Social History Smoking/Tobacco Use Status: Current every day Tobacco Type: cigarettes Quit status: considering quitting Alcohol Intake: former Drug use: Current Sobriety Substance use type: former substance user, marijuana, crack/cocaine, heroin, opiates and IV drugs Details: former heroin and cocaine user, 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 only drugs that she uses currently is marijuana Household members: other Details: lives w/ cousin's ex- and her children Number of Children: 3 Do you feel safe at home: Yes Do you feel safe in your relationship?: Yes History History 2 Para 3 Hx # Term Pregnancies 2 Multiple births Hx # Pregnancies Ectopic pregnancies AB induced Hx Number of Living Children 3 AB spontaneous
--- NOTE | 2019-07-16 11:07 | CMPROGNOTE_ITS ---
- If Service Date Differs Date of service: 07/16/19 Time of Service: 11:07 Care Management Progress Note S/O: [facility]NA contacted [facility] in [place] regarding the shower bench that was being coordinated by [facility]NA. [facility] reported that it had been approved 100% and needs to be picked up at their [place] location. [facility] instructed that their doors are locked and Ghada can call them and they will bring out the equipment. Ghada left AMA this morning. JUANA was not informed prior to her leaving. CM called and left a message regarding the shower bench. A: Ghada is a 28 year old female admitted to [facility] on 07/14/19 with suspected TIA/CVA vs Atypical Migraine. P: Ghada was being treated at [facility] and decided to leave AMA. She was driven home via private vehicle by family/friends. CM attempted to contact Ghada after she left, as JUANA was not informed of Ghada's decision to leave AMA. JUANA was able to obtain approval for the shower bench requested, and it is currently at [facility] [place] location awaiting citrus picker.
== END 2019-07-16 09:03 | disposition left against medical advice (07) ==
LOC: ER 07-15 00:13 → MS 07-15 01:02
PROVIDERS: Admitting Provider Internal Medicine; Emergency Provider Student in an Organized Health Care Education/Training Program; PCP Nurse Practitioner Family; Visit Provider Internal Medicine
DX: G81.91 Hemiplegia, unspecified affecting right dominant side (principal); Z53.29 Procedure and treatment not carried out because of patient's decision for other reasons; R25.9 Unspecified abnormal involuntary movements; Q21.1 Atrial septal defect; R41.82 Altered mental status, unspecified; G47.10 Hypersomnia, unspecified; G44.89 Other headache syndrome; F11.20 Opioid dependence, uncomplicated; Z86.73 Personal history of transient ischemic attack (TIA), and cerebral infarction without residual deficits; R07.89 Other chest pain; M54.5 Low back pain; F19.11 Other psychoactive substance abuse, in remission; F32.9 Major depressive disorder, single episode, unspecified; B19.20 Unspecified viral hepatitis C without hepatic coma; Z79.82 Long term (current) use of aspirin; Z79.02 Long term (current) use of antithrombotics/antiplatelets; K59.09 Other constipation; Z91.14 Patient's other noncompliance with medication regimen; F17.210 Nicotine dependence, cigarettes, uncomplicated; F12.10 Cannabis abuse, uncomplicated
CPT/HCPCS: 36415; 70496; 70498; 70544; 70546; 71275; 72158; 74175; 80048; 80053; 80061; 80307; 81025; 85652; 93005; 94640; 96360; 96361; 97162; 97165; 99217; 99220; 99255; 99285; NC; 70551; 81003; 83735; 84443; 84484; 85025; 85610; 85730; 86140; 93010; 97530; G0378; J3360; J3475; J3490; J7620

== ENCOUNTER 2019-07-22 11:17 | Outpatient (REF) | payer MEDICAID, SELFPAY ==
[2019-07-26 03:36] LABS: SARS-CoV-2 RNA Undetected (Undetected); SARS-CoV-2 Specimen Source Nasopharynx
== END 2019-07-22 11:37 ==
LOC: NCHCN 11:17
PROVIDERS: PCP Nurse Practitioner Family; Visit Provider Physician Assistant
DX: Z20.828 Contact with and (suspected) exposure to other viral communicable diseases (principal); J06.9 Acute upper respiratory infection, unspecified
CPT/HCPCS: U0003

== ENCOUNTER 2019-12-02 16:32 | Outpatient (REF) | payer MEDICAID, SELFPAY ==
[2019-12-06 01:18] LABS: SARS-CoV-2 RNA Undetected (Undetected); SARS-CoV-2 Specimen Source Nasopharynx
== END 2019-12-02 16:52 ==
LOC: NCHCN 16:32
PROVIDERS: PCP Nurse Practitioner Family; Visit Provider Nurse Practitioner Family
DX: R11.0 Nausea (principal)
CPT/HCPCS: U0003

== ENCOUNTER 2020-04-06 10:32 | Outpatient (CLI) | payer MEDICAID, SELFPAY ==
[2020-04-07 17:32] LABS: COVID-19 RT-PCR UVMMC Result Negative (Negative)
== END 2020-04-06 10:52 ==
LOC: NCHCO 10:33 → LBO 11:55
PROVIDERS: PCP Nurse Practitioner Family; Visit Provider Nurse Practitioner Family
DX: J06.9 Acute upper respiratory infection, unspecified (principal); R05 Cough; R50.9 Fever, unspecified; J02.9 Acute pharyngitis, unspecified
CPT/HCPCS: U0003

== ENCOUNTER 2020-04-12 23:57 | Emergency (ER) | payer MEDICAID, SELFPAY ==
--- NOTE | 2020-04-12 23:45 | RT.EKG_ITS ---
APPROVED REPORT Exam: Resting ECG Patient Location: E HR:114 bpm ECG Measurements Heart Rate 114 AXIS AR 143 P 51 QRSd 109 QRS -32 QT 354 T 1 QTc 487 Conclusion Sinus tachycardia...rate> 99 Left axis deviation...QRS axis (-30,-90) Physician: No stemi
[2020-04-13 00:04] VITALS: BP 144/83; PULSE 117; RESP 24; TEMP 36.7; O2SAT 100
--- NOTE | 2020-04-13 00:14 | ED.GENADUL_ITS ---
Discharge Plan Disposition Patient Disposition: AGAINST MEDICAL ADVICE Condition: Stable Discharge Details Clinical Impression: Headache, Dyspnea, Asthma exacerbation, Cough Primary Care Provider: Frances Sorensen ED Provider: Woody Mo Home Meds and New Rx's Prescriptions: Continued methadone [Dolophine] 10 MG tablet 114 mg PO DAILY RF: 0 acetaminophen [Mapap Extra Strength] 500 MG tablet 1,000 mg PO Q6H 5 Days Qty: 60 RF: 0 paroxetine HCl [Paxil] 10 mg Tablet 20 mg PO HS RF: 0 albuterol sulfate 90 mcg/actuation Hfa Aerosol Inhaler 1 puff INHALATION Q6H PRNRF: 0 docusate sodium [Docusil] 100 mg capsule 100 mg PO DAILY Qty: 60 RF: 0 epinephrine 0.3 mg/0.3 mL auto-injector 0.3 mg IM ONCE PRN (Reason: anaphylaxis) Qty: 1 RF: 1 aspirin [Aspir-81] 81 mg Tablet,Delayed Release (Dr/Ec) 81 mg PO DAILY RF: 0 hydroxyzine HCl 25 mg Tablet 25 mg PO TID PRNRF: 0 Flovent HFA 220 mcg/actuation Hfa Aerosol Inhaler 1 puff INHALATION BID RF: 0 lisinopril 5 mg Tablet 5 mg PO DAILY RF: 0 metoprolol succinate 25 mg Tablet Extended Release 24 Hr 50 mg PO DAILY RF: 0 naproxen 375 mg Tablet,Delayed Release (Dr/Ec) 375 mg PO TID PRNRF: 0 pregabalin [Lyrica] 75 mg Capsule See Rx Instructions .ROUTE .COMPLEX RF: 0 diphenhydramine HCl [Benadryl] 25 mg Capsule 25 mg PO QHS PRNRF: 0 cyclobenzaprine 5 mg Tablet 5 mg PO BID RF: 0 Discharge Instructions Instructions: Asthma (ED), Dyspnea (ED) Additional Instructions: At this time you are leaving against our recommendations. As we discussed together I do feel there is certainly a component of asthma exacerbation and a component of a migraine headache going on. Please make sure to take 2 puffs every 4-6 hours with your inhaler for the next 2 to 3 days. Drink plenty of fluids. If at any point you change your mind or wish to complete the test that we had discussed do not hesitate to return at all. If you notice any worsening of your symptoms, or any new symptoms such as vomiting, diarrhea, fever, chills, shortness of breath, chest pain, numbness, weakness, or fainting , please return immediately to the emergency department for reevaluation. Please follow up with your primary care provider as soon as possible for reassessment and reevaluation. As always, it was a pleasure participating in your medical care today. Referrals: Frances Sorensen [Primary Care Provider] - Medical Decision Making 29-year-old female with a past medical history of cerebral aneurysm requiring coil and stent, PFO, stroke, spine surgery, arthritis of unknown etiology, but potentially autoimmune and hereditary, fibromyalgia, PTSD, tobacco abuse, and methadone use. She presents today for evaluation of chest pain, shortness of breath and headache. Patient states that for the last week she has had cough with mild shortness of breath. She did have a negative Covid test a few days ago. She describes the cough as nonproductive. She feels short of breath with ambulation. She denies any significant pleuritic chest pain but does feel that it is slightly harder to get a deep breath. Today the pain slightly worsened, particularly around her left chest, which goes into her left arm. No exertional component for exacerbation of the pain. Additionally the patient states that 1 hour ago she developed sudden onset headache which she describes as being located in the front of her head and feeling atypical from her migraines. She also experienced total body tingling when this occurred which she felt was atypical. She is uncertain if this is similar to her previous strokes or aneurysms. She denies any focal weakness, she does admit to mild blurry vision. She denies any fever or chills. She denies any posterior neck pain. She denies any falls or trauma. No other complaints at this time. No other modifying factors. Physical exam is relatively unremarkable. Mild intermittent tachycardia, no focal neurologic deficits. Differential is broad especially with her known history of aneurysms and disposition for these. While her headache may be simply due to a migraine, repeat aneurysm that is remain on the differential. With her symptoms of cough for this prolonged episode I also do worry about Covid in spite of her previous negative test, but PE is also certainly on the differential. She may have a component of asthma, and we will give 2 breathing treatments to see if this changes anything. We will treat her headache with a migraine cocktail to help with pain however we will still be ruling out the acute life-threatening etiologies. Exam is notably inconsistent with meningitis. No indication for lumbar puncture. Since her pain and symptoms began within the hour, I do feel that a CT scan will be appropriate to evaluate for bleed at this time. We will gently rehydrate monitor closely and reassess 1:30 AM Patient has received 2 breathing treatments and migraine cocktail she has near complete resolution of her headache and notable improvement of her shortness of breath. She states that I feel great and would like to go home to sleep. The patient's work-up has not yet returned, she has not had her CAT scan for evaluation of aneurysm. Of her labs that have returned she has mild transaminitis which appears to have been present in the past, proBNP is normal and troponin is normal suggesting no signs of cardiac strain or ischemia. EKG shows no signs of significant right heart strain or STEMI. I made it unequivocally clear to the patient that I do feel that the imaging that we initially ordered is indicated, however in spite of this she states that she does understand however she still would like to go home. She states that if her symptoms change or worsen or return, she will come back, she also states that she will follow-up closely with her PCP to see if she needs to test later. . Patient is of an appropriate age to make decisions. Reassessment of vital signs demonstrates mild increase in heart rate after breathing treatments however oxygenation remained stable. Repeat pulmonary exam demonstrates improvement and resolution of the previously present wheeze. Repeat neurologic exam was performed and she has no neurologic deficits, no meningeal signs.Patient is of a appropriate age to make decisions. The patient is of sound mind, appears clinically sober, and has capacity to make decisions by my clinical exam. We have provided options for treatment and discussed the risks and benefits of these options and refusing these options, including and disability specific to the patient's pathology. Patient is able to discuss the risks and benefits and alternatives of treatment and refusing treatment. The patient chooses to leave before evaluation and treatment is complete AGAINST MEDICAL ADVICE. That being said the patient is very cordial and polite, there is no animosity at this time. She states that she really just wants to go home to rest as she feels so much better. I have extensively reviewed the treatment plan and discharge instructions with the patient. I have addressed all patient concerns at this time. The patient was made aware of what symptoms to monitor for that would warrant a return to the emergency department. Additionally I stated that she could return at any time to have the test that we discussed completed. Discussed the plan with the patient, they demonstrate verbal understanding and agreement with our assessment and plan at this time. EKG 0: 00 Sinus rhythm, sinus tachycardia, rate 114, intervals otherwise unremarkable. No STEMI. HPI General Date/Time Provider Initiated Documentation: 04/12/20 23:58 . HPI Narrative: 29-year-old female with a past medical history of cerebral aneurysm requiring coil and stent, PFO, stroke, spine surgery, arthritis of unknown etiology, but potentially autoimmune and hereditary, fibromyalgia, PTSD, tobacco abuse, and methadone use. She presents today for evaluation of chest pain, shortness of breath and headache. Patient states that for the last week she has had cough with mild shortness of breath. She did have a negative Covid test a few days ago. She describes the cough as nonproductive. She feels short of breath with ambulation. She denies any significant pleuritic chest pain but does feel that it is slightly harder to get a deep breath. Today the pain slightly worsened, particularly around her left chest, which goes into her left arm. No exertional component for exacerbation of the pain. Additionally the patient states that 1 hour ago she developed sudden onset headache which she describes as being located in the front of her head and feeling atypical from her migraines. She also experienced total body tingling when this occurred which she felt was atypical. She is uncertain if this is similar to her previous strokes or aneurysms. She denies any focal weakness, she does admit to mild blurry vision. She denies any fever or chills. She denies any posterior neck pain. She denies any falls or trauma. No other complaints at this time. No other modifying factors. Related Data Home Medications Medication Instructions Recorded Confirmed methadone [Dolophine] 114 mg PO DAILY 12/25/15 04/13/20 acetaminophen [Mapap Extra 1,000 mg PO Q6H 5 Days #60 tab 11/19/17 04/13/20 Strength] albuterol sulfate 1 puff INHALATION Q6H PRN 02/03/18 04/13/20 paroxetine HCl [Paxil] 20 mg PO HS 02/03/18 04/13/20 docusate sodium [Docusil] 100 mg PO DAILY #60 cap 07/01/18 04/13/20 Flovent HFA 1 puff INHALATION BID 10/17/18 07/14/19 aspirin [Aspir-81] 81 mg PO DAILY 10/17/18 04/13/20 hydroxyzine HCl 25 mg PO TID PRN 10/17/18 04/13/20 lisinopril 5 mg PO DAILY 10/17/18 04/13/20 metoprolol succinate 50 mg PO DAILY 10/17/18 04/13/20 naproxen 375 mg PO TID PRN 10/17/18 04/13/20 epinephrine 0.3 mg IM ONCE PRN #1 each 10/22/18 04/13/20 pregabalin [Lyrica] See Rx Instructions .ROUTE .COMPLEX 05/15/19 04/13/20 cyclobenzaprine 5 mg PO BID 07/14/19 04/13/20 diphenhydramine HCl [Benadryl] 25 mg PO QHS PRN 07/14/19 04/13/20 Previous Rx's Medication Instructions Recorded acetaminophen [Mapap Extra 1,000 mg PO Q6H 5 Days #60 tab 11/19/17 Strength] docusate sodium [Docusil] 100 mg PO DAILY #60 cap 07/01/18 epinephrine 0.3 mg IM ONCE PRN #1 each 10/22/18 Allergies Allergy/AdvReac Type Severity Reaction Status Date / Time meperidine HCl [From Demerol] Allergy Severe Anaphylaxsi Unverified 07/14/19 21:17 s venom-honey bee Allergy Severe anaphylaxis Unverified 07/14/19 21:17 [bee venom (honey bee)] lithium AdvReac Mild NAUSEA Unverified 07/14/19 21:17 sertraline HCl [From Zoloft] AdvReac Mild NIGHTMARES Unverified 07/14/19 21:17 General Stated Complaint: Headache KALINA: 2 Review of Systems All systems reviewed & are unremarkable except as noted in HPI and below [facility] Medical History (Updated 04/13/20 @ 01:25 by Woody Mo DO) ADD (attention deficit disorder) Aneurysm of ophthalmic artery L, s/p stent Asthma Atrial septal aneurysm Blood bacterial culture positive Chronic daily headache Chronic pain Chronic systolic CHF (congestive heart failure) [place] [facility] [place] Depression Fibromyalgia Hepatitis C infection History of intravenous drug abuse Intracranial aneurysm Migraine headache with aura (~2000) Nephrolithiasis Opioid dependence in controlled environment PFO (patent foramen ovale) PTSD (post-traumatic stress disorder) Scoliosis Seizures Spondylosis of lumbar spine SVT (supraventricular tachycardia) S/p ablation Therapeutic opioid induced constipation Surgical History H/O lithotripsy History of History of cerebral aneurysm repair (~2014) S/P cystoscopy with ureteral stent placement S/P tubal ligation Status post ablation operation for arrhythmia SVT Status post thoracic spinal fusion Family History Paternal Aunt Cerebral aneurysm Diabetes Hypertension Maternal Aunt Migraines Maternal Grandmother Heart disease Hypertension Migraines Paternal Grandmother Heart disease Diabetes Father Diabetes Hypertension Maternal Grandfather Diabetes Paternal Uncle Diabetes Hypertension Paternal Grandfather Hypertension Brother Migraines Mother Migraines Social History Smoking/Tobacco Use Status: Current every day Tobacco Type: cigarettes Quit status: considering quitting Smoking risk assessment performed?: Yes Alcohol Intake: former Drug use: Current Sobriety Substance use type: former substance user, marijuana, crack/cocaine, heroin, opiates and IV drugs Details: former heroin and cocaine user, 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 only drugs that she uses currently is marijuana Household members: other Details: lives w/ cousin's ex- and her children Number of Children: 3 Do you feel safe at home: Yes Do you feel safe in your relationship?: Yes History History 2 Para 3 Hx # Term Pregnancies 2 Multiple births Hx # Pregnancies Ectopic pregnancies AB induced Hx Number of Living Children 3 AB spontaneous Exam Narrative Exam Narrative: 1.Const: Well-nourished, Well-developed, appearing stated age 2.Eyes: PERRL, no conjunctival injection, and symmetrical lids. 3.ENT: Atraumatic external nose and ears. Moist MM. Neck: Symmetric, trachea midline, No thyromegaly. Patient demonstrates good movement of cervical neck. There is no nuchal rigidity, no nuchal tenderness. Patient is able to flex the neck without any difficulty or significant pain. Negative Kernig's and Brudzinski sign. 4.CVS: +S1/S2, No murmurs or gallops. Peripheral pulses 2+ and equal in all extremities. Brisk capillary refill in all extremities. Radial pulses +2 bilaterally. 5.RESP: Unlabored respiratory effort. Minimal wheeze in the left lung ching 6.GI: Soft, Nontender/Nondistended, No hepatosplenomegaly. No guarding or rebound. 7.MSK: Normocephalic/Atraumatic, Extremities w/o deformity or ttp No cyanosis or clubbing, Normal movement of all extremities, no calf tenderness. 8.Skin: Warm, Dry. No rashes or lesions. 9.Neuro: can operator II-XII grossly intact. Sensation grossly intact, no focal neurologic deficits. All 6 cardinal planes of vision are fully intact. No evidence of rotatory or vertical nystagmus. The patient demonstrated a normal [id number], good dexterity. There was no evidence of dysdiadochokinesia. Patient was able to ambulate without difficulty. There was no wide-based gait. Romberg testing was normal. Dqvz-je-lwgo testing was normal. Sensation was intact bilaterally as well as muscle strength bilaterally for all extremities. Patient was able to verbalize butter cup with no slurring, or miss pronunciation. 10.Psych: (AAO) x3. Appropriate mood and affect Course Vital Signs Vital signs: Vital Signs Temperature 36.7 C 04/13/20 00:04 Pulse 117 H 04/13/20 00:04 Respiratory Rate 24 04/13/20 00:04 Blood Pressure 144/83 H 04/13/20 00:04 Pulse Oximetry 100 04/13/20 00:04 Temperature 36.7 C 04/13/20 00:04 Pulse 117 H 04/13/20 00:04 Respiratory Rate 24 04/13/20 00:04 Respiratory Effort 04/13/20 00:10 Blood Pressure 144/83 H 04/13/20 00:04 Blood Pressure Position Supine 04/13/20 00:04 Pulse Oximetry 100 04/13/20 00:04 Oxygen Delivery Method Room Air 04/13/20 00:04 Oxygen Flow Rate 0 04/13/20 00:04 Pain Level 7 04/13/20 00:10
[2020-04-13] MEDS: Normal Saline 1,000 ML 1000 ML IV (00:29)
[2020-04-13] MEDS: Albuterol/Ipratropium 3 ML UPD VIAL 6 ML UPD (00:30)
[2020-04-13] MEDS: Prochlorperazine 10 MG/2 ML VIAL IVP (00:30)
[2020-04-13] MEDS: diphenhydrAMINE 50 MG/ML VIAL 25 MG IVP (00:30)
[2020-04-13] MEDS: ACETAMINOPHEN 1,000 MG/100 ML BTL 400 MG IVPB (00:30)
[2020-04-13] MEDS: methylPREDNISolone SUCC 125 MG VIAL IVP (00:30)
[2020-04-13 00:40] VITALS: BP 128/74; PULSE 99; RESP 21; O2SAT 99
[2020-04-13 01:02] LABS: Abs Immature Grans 0.05 10^3/uL (0.0-0.06); Absolute Basophil Count 0.01 10^3/uL (0.0-0.2); Absolute Eosinophil Count 0.16 10^3/uL (0.0-0.7); Absolute Lymphocyte Count 2.21 10^3/uL (1.2-3.4); Absolute Monocyte Count 0.66 10^3/uL (0.1-0.8); Absolute Neutrophil Count 3.57 10^3/uL (1.2-6.7); Basophils % 0.2; Eosinophils % 2.4; HCT 32.5 % (36.0-46.0); HGB 10.4 g/dL (11.2-15.7); Immature Grans % 0.8; Lymphocytes % 33.2; MCV 87.4 fL (80-95); MPV 10.7 fL (8.0-11.0); Monocytes % 9.9; Neutrophils % 53.5; Nucleated RBC 0 %; Platelet Count 284 10^3/uL (130-400); RBC 3.72 10^6/uL (3.93-5.22); RDW 13.9 % (11.7-14.6); RDW-SD 44.2 fL; WBC 6.66 10^3/uL (4.4-10.8)
[2020-04-13 01:16] LABS: PTT Activated 25.6 sec (21.0-27.5)
[2020-04-13 01:22] LABS: ALT 96 U/L (14-59); AST 83 U/L (15-37); Albumin 2.8 g/dL (3.4-5.0); Alkaline Phosphatase 168 U/L (46-116); Anion Gap 6.7 mmol/L (3-11); BUN 16 mg/dL (7-18); Bilirubin, Total 0.2 mg/dL (0.2-1.0); CO2 27.3 mmol/L (21.0-32.0); CREATININE 0.81 mg/dL (0.55-1.02); Calcium 8.2 mg/dL (8.5-10.1); Chloride 102 mmol/L (98-107); Glucose 85 mg/dL (74-106); NT-proBNP 198 pg/mL (<300); Potassium 3.5 mmol/L (3.5-5.1); Sodium 136 mmol/L (136-145); Total Protein 7.2 g/dL (6.4-8.2)
[2020-04-13 01:24] LABS: Troponin I < 0.05 ng/mL (<0.06)
[2020-04-13 01:25] VITALS: BP 143/110; PULSE 126; RESP 19; O2SAT 99
--- NOTE | 2020-04-13 01:26 | NUR.NOTE ---
Pt called RN to room, up pacing next to bed, states she wants to go home. States she is anxious sitting in the hospital. States she feels better after nebulizer and CUADRA meds. Aware CT is coming to take pt for testing, states she wants to go home and will have her PCP set up imaging as needed. DR Mo in to speak to pt, aware she is leaving AMA. states she will call her pcp tomorrow. benefits/risks discussed. IV removed.
[2020-04-14 19:01] LABS: COVID-19 RT-PCR UVMMC Result Negative (Negative)
== END 2020-04-13 01:40 | disposition left against medical advice (07) ==
PROVIDERS: Emergency Provider Student in an Organized Health Care Education/Training Program; PCP Nurse Practitioner Family
DX: G43.809 Other migraine, not intractable, without status migrainosus (principal); J45.901 Unspecified asthma with (acute) exacerbation; R06.00 Dyspnea, unspecified; Z53.29 Procedure and treatment not carried out because of patient's decision for other reasons; Z03.818 Encounter for observation for suspected exposure to other biological agents ruled out
CPT/HCPCS: 36415; 80053; 87449; 93005; 94640; 99284; U0003; 83880; 84484; 85025; 85610; 85730; 93010; 99285; J0131; J0780; J1200; J2930; J7620

== ENCOUNTER 2020-05-19 16:05 | Outpatient (REF) | payer MEDICAID, SELFPAY ==
--- NOTE | 2020-05-19 15:00 | PAPFT_PTH ---
PATIENT: Ghada Ervin LOC: [facility] U#:[id number] AGE/SX: 29/F ROOM: RE05/19/[address]: Frances Sorensen : 1990 BED: DIS: 05/19/2020 SPEC #: [id number] RECD: 05/20/20 13:05 STATUS: RO REBlaise #: [id number] ISIDRO: 05/19/20 15:[address]: Frances Sorensen DEPT: [facility] Cytology RECD BY: Marla Spivey Tissues: 1 - CX/ENDOCX FOR PAP SMEARS Procedures: PAP THIN PREP/UVM Screening HPV DNA PROBE Comments: [id number] (CHLAMYDIA/GC)
[2020-05-21 15:44] LABS: Chlamydia Result Negative (Negative); GC Result Negative (Negative)
== END 2020-05-19 16:25 ==
LOC: NCHCN 16:05
PROVIDERS: PCP Nurse Practitioner Family; Visit Provider Nurse Practitioner Family
DX: Z12.4 Encounter for screening for malignant neoplasm of cervix (principal); Z01.419 Encounter for gynecological examination (general) (routine) without abnormal findings; Z00.00 Encounter for general adult medical examination without abnormal findings; Z11.51 Encounter for screening for human papillomavirus (HPV); Z11.3 Encounter for screening for infections with a predominantly sexual mode of transmission
CPT/HCPCS: 87491; 87591; 88142; 87624

== ENCOUNTER 2020-08-20 16:50 | Outpatient (REF) | payer MEDICAID, SELFPAY ==
[2020-08-22 11:03] LABS: COVID-19 RT-PCR UVMMC Result Negative (Negative)
== END 2020-08-20 16:51 | disposition home or self-care (01) ==
LOC: NCHCN 16:50
PROVIDERS: PCP Nurse Practitioner Family; Visit Provider Family Medicine
DX: Z20.822 Contact with and (suspected) exposure to COVID-19 (principal); R06.02 Shortness of breath
CPT/HCPCS: U0003

== ENCOUNTER 2020-11-03 04:17 | Outpatient (CLI) | payer MEDICAID, SELFPAY | END 2020-11-03 04:18 | disposition home or self-care (01) | LOC: RT 04:17 | PROVIDERS: PCP Nurse Practitioner Family; Visit Provider Family Medicine | DX: R69 Illness, unspecified (principal) | CPT/HCPCS: 93005; 93010 ==

== ENCOUNTER 2020-11-05 07:49 | Outpatient (REF) | payer MEDICAID, SELFPAY ==
[2020-11-05 11:55] LABS: HCT 33.9 % (36.0-46.0); HGB 10.1 g/dL (11.2-15.7); MCH 24.3 pg (27.0-33.0); MCHC 29.8 % (32.0-36.0); MCV 81.5 fL (80-95); MPV 9.7 fL (8.0-11.0); Platelet Count 331 10^3/uL (130-400); RBC 4.16 10^6/uL (3.93-5.22); RDW-SD 45.7 fL; WBC 9.96 10^3/uL (4.4-10.8)
[2020-11-05 12:45] LABS: ALT 26 U/L (14-59); AST 20 U/L (15-37); Albumin 3.2 g/dL (3.4-5.0); Alkaline Phosphatase 117 U/L (46-116); Anion Gap 8.1 mmol/L (3-11); BUN 25 mg/dL (7-18); Bilirubin, Total 0.2 mg/dL (0.2-1.0); CO2 27.9 mmol/L (21.0-32.0); CREATININE 0.9 mg/dL (0.55-1.02); Calcium 8.7 mg/dL (8.5-10.1); Chloride 104 mmol/L (98-107); Glucose 160 mg/dL (74-106); Potassium 3.9 mmol/L (3.5-5.1); Sodium 140 mmol/L (136-145); Total Protein 7.8 g/dL (6.4-8.2)
[2020-11-06 08:23] LABS: HBs Antibody, Quant 566.7 mIU/mL (See Note); Hepatitis B Surface Ab Positive (See Note)
[2020-11-06 08:30] LABS: Hepatitis B Surface Ag Negative (Negative)
[2020-11-06 09:11] LABS: Hep B Core Antibody Negative (Negative)
[2020-11-06 09:27] LABS: HIV-1/2 Ag & Ab Screen Negative (Negative)
[2020-11-06 09:44] LABS: Hep A Total Ab w Rflx IgM Negative (Negative)
[2020-11-06 13:11] LABS: HCV RNA Qualitative Detected (Undetected)
[2020-11-09 10:10] LABS: ALT 18 U/L (7-45); ActiTest Grade A0; ActiTest Interpretation no activity; ActiTest Score 0.05; Alpha-2-Macroglobulin 158 mg/dL (100 - 280); Apoliprotein A1 117 mg/dL (>=140); Bilirubin, Total <0.2 mg/dL (<=1.2); FibroTest Interpretation no fibrosis; FibroTest Score 0.04; FibroTest Stage F0; GGT 42 U/L (5 - 36); Haptoglobin 235 mg/dL (30 - 200)
== END 2020-11-05 07:50 | disposition home or self-care (01) ==
LOC: LBO 07:49
PROVIDERS: PCP Nurse Practitioner Family; Visit Provider Family Medicine
DX: B18.2 Chronic viral hepatitis C (principal); Z11.4 Encounter for screening for human immunodeficiency virus [HIV]
CPT/HCPCS: 36415; 80053; 81596; 85027; 86704; 86706; 86709; 87340; 87389; 87522; 86705

== ENCOUNTER 2020-11-05 11:47 | Outpatient (REF) | payer MEDICAID, SELFPAY ==
--- NOTE | 2020-11-05 12:00 | RT.EKG_ITS ---
APPROVED REPORT Exam: Resting ECG Reason for Exam: HIGH RISK MEDICATION Patient Location: O HR:108 bpm ECG Measurements Heart Rate 108 AXIS MS 163 P 27 QRSd 107 QRS -15 QT 343 T 29 QTc 460 Conclusion Sinus tachycardia...rate> 99
== END 2020-11-05 11:48 | disposition home or self-care (01) ==
LOC: RT 11:47
PROVIDERS: PCP Nurse Practitioner Family; Visit Provider Family Medicine
DX: Z79.899 Other long term (current) drug therapy (principal)
CPT/HCPCS: 93005; 93010

== ENCOUNTER 2020-11-05 13:09 | Outpatient (CLI) | payer MEDICAID, SELFPAY | END 2020-11-05 13:10 | disposition home or self-care (01) | PROVIDERS: PCP Nurse Practitioner Family; Visit Provider Family Medicine | DX: Z79.899 Other long term (current) drug therapy (principal) | CPT/HCPCS: 93005; 93010 ==

== ENCOUNTER 2020-11-25 12:45 | Emergency (ER) | payer MEDICAID, SELFPAY ==
[2020-11-25] VITALS (39 sets, daily range): BP systolic 126–171; BP diastolic 67–109; PULSE 67–106; RESP 0–27; TEMP 36.6; O2SAT 81–99
[2020-11-25] MEDS: diphenhydrAMINE 50 MG/ML VIAL (13:12)
[2020-11-25] MEDS: methylPREDNISolone SUCC 125 MG VIAL IVP (13:16)
[2020-11-25] MEDS: FAMOTIDINE 20 MG/50 ML BAG 200 MG IVPB (13:17)
--- NOTE | 2020-11-25 15:10 | W.ED.GENAD ---
Discharge Plan Disposition Patient Disposition: HOME Condition: Stable Discharge Details Clinical Impression: Allergic reaction Primary Care Provider: Frances Sorensen ED Provider: Marla Meadows Home Meds and New Rx's Prescriptions: New epinephrine 0.3 mg/0.3 mL auto-injector 0.3 mg IM ONCE Qty: 2 RF: 0 prednisone 20 mg tablet 40 mg PO DAILY Qty: 8 RF: 0 Continued methadone [Dolophine] 10 MG tablet 114 mg PO DAILY RF: 0 acetaminophen [Mapap Extra Strength] 500 MG tablet 1,000 mg PO Q6H 5 Days Qty: 60 RF: 0 paroxetine HCl [Paxil] 10 mg Tablet 20 mg PO HS RF: 0 albuterol sulfate 90 mcg/actuation Hfa Aerosol Inhaler 1 puff INHALATION Q6H PRNRF: 0 docusate sodium [Docusil] 100 mg capsule 100 mg PO DAILY Qty: 60 RF: 0 epinephrine 0.3 mg/0.3 mL auto-injector 0.3 mg IM ONCE PRN (Reason: anaphylaxis) Qty: 1 RF: 1 aspirin [Aspir-81] 81 mg Tablet,Delayed Release (Dr/Ec) 81 mg PO DAILY RF: 0 hydroxyzine HCl 25 mg Tablet 25 mg PO TID PRNRF: 0 Flovent HFA 220 mcg/actuation Hfa Aerosol Inhaler 1 puff INHALATION BID RF: 0 lisinopril 5 mg Tablet 5 mg PO DAILY RF: 0 metoprolol succinate 25 mg Tablet Extended Release 24 Hr 50 mg PO DAILY RF: 0 naproxen 375 mg Tablet,Delayed Release (Dr/Ec) 375 mg PO TID PRNRF: 0 pregabalin [Lyrica] 75 mg Capsule See Rx Instructions .ROUTE .COMPLEX RF: 0 diphenhydramine HCl [Benadryl] 25 mg Capsule 25 mg PO QHS PRNRF: 0 cyclobenzaprine 5 mg Tablet 5 mg PO BID RF: 0 Discharge Instructions Instructions: General Allergic Reaction (ED) Additional Instructions: Take Benadryl. 100 mg every 6 hours for the next 3 days Take prednisone until completed, he received a dose today I have an EpiPen for you, you should carry this with you everywhere Discharge Data Discharge Date/Time-TO BE ENTERED AT DEPARTURE: 11/25/20 16:18 Medical Decision Making Patient is in Benadryl, Pepcid, and Solu-Medrol Observe for 3 hours, initially quite tired after receiving IV Benadryl, I suspect this is secondary to her being on such high dose of methadone She is ambulatory with steady gait, alert, oriented, of decisional capacity, on reassessment there is no evidence of anaphylaxis Patient will be supplied with an epinephrine pen, should prompt steroids for the next 3 days Treatment doctor to continue taking Benadryl, Pepcid 25 mg at BSA for days for her and she is given low threshold to return should she have new or worsening complaints Her vitals have stabilized Of note, she does have sleep apnea, secondary to Benadryl, patient was quite sleepy and when she did fall asleep, she did have periods of apnea, she was told that she has sleep apnea but has not followed up for sleep study officially, this was during her last hospitalization Blood pressure at home discharge home was 160/90, her respirations were 13, she has not hypoxic 90% on room air, her oropharynx is patent, her lungs are clear to auscultation She is completely alert and oriented ambulatory with steady gait bathroom, without hypoxia She is given low threshold to return with new or worsening complaints She is encouraged to follow-up for sleep study in the outpatient setting Medical Records Medical records reviewed: Yes I reviewed the patient's medical records. HPI General Mode of arrival: ambulatory. Date/Time Provider Initiated Documentation: 11/25/20 13:10. Limitations to Documentation: no limitations. Information obtained by: patient. 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 She was getting into her car when the event occurred. She did not have her EpiPen. She has not taken any medications prior to arrival today. She denies any chest pain or shortness of breath. She does states she is having some slight difficulty swallowing. She does report some mild hoarse voice. She denies chance of . She denies any symptoms prior to this testing. Denies any rash symptoms. Related Data Home Medications Medication Instructions Recorded Confirmed methadone [Dolophine] 114 mg PO DAILY 12/25/15 04/13/20 acetaminophen [Mapap Extra 1,000 mg PO Q6H 5 Days #60 tab 11/19/17 04/13/20 Strength] albuterol sulfate 1 puff INHALATION Q6H PRN 02/03/18 04/13/20 paroxetine HCl [Paxil] 20 mg PO HS 02/03/18 04/13/20 docusate sodium [Docusil] 100 mg PO DAILY #60 cap 07/01/18 04/13/20 Flovent HFA 1 puff INHALATION BID 10/17/18 07/14/19 aspirin [Aspir-81] 81 mg PO DAILY 10/17/18 04/13/20 hydroxyzine HCl 25 mg PO TID PRN 10/17/18 04/13/20 lisinopril 5 mg PO DAILY 10/17/18 04/13/20 metoprolol succinate 50 mg PO DAILY 10/17/18 04/13/20 naproxen 375 mg PO TID PRN 10/17/18 04/13/20 epinephrine 0.3 mg IM ONCE PRN #1 each 10/22/18 04/13/20 pregabalin [Lyrica] See Rx Instructions .ROUTE .COMPLEX 05/15/19 04/13/20 cyclobenzaprine 5 mg PO BID 07/14/19 04/13/20 diphenhydramine HCl [Benadryl] 25 mg PO QHS PRN 07/14/19 04/13/20 epinephrine 0.3 mg IM ONCE #2 ea 11/25/20 prednisone 40 mg PO DAILY #8 tab 11/25/20 Previous Rx's Medication Instructions Recorded acetaminophen [Mapap Extra 1,000 mg PO Q6H 5 Days #60 tab 11/19/17 Strength] docusate sodium [Docusil] 100 mg PO DAILY #60 cap 07/01/18 epinephrine 0.3 mg IM ONCE PRN #1 each 10/22/18 epinephrine 0.3 mg IM ONCE #2 ea 11/25/20 prednisone 40 mg PO DAILY #8 tab 11/25/20 Allergies Allergy/AdvReac Type Severity Reaction Status Date / Time meperidine HCl [From Demerol] Allergy Severe Anaphylaxsi Unverified 07/14/19 21:17 s venom-honey bee Allergy Severe anaphylaxis Unverified 07/14/19 21:17 [bee venom (honey bee)] lithium AdvReac Mild NAUSEA Unverified 07/14/19 21:17 sertraline HCl [From Zoloft] AdvReac Mild NIGHTMARES Unverified 07/14/19 21:17 General Stated Complaint: Allergic KALINA: 2 Review of Systems All systems reviewed & are unremarkable except as noted in HPI and below [facility] Medical History (Updated 11/25/20 @ 16:09 by RICCO Dent) ADD (attention deficit disorder) Aneurysm of ophthalmic artery L, s/p stent Asthma Atrial septal aneurysm Blood bacterial culture positive Chronic daily headache Chronic pain Chronic systolic CHF (congestive heart failure) [place] 50% [place] [facility] [place] bacterial pneumonia Depression Fibromyalgia Hepatitis C infection History of intravenous drug abuse Intracranial aneurysm Migraine headache with aura (~2000) Nephrolithiasis Opioid dependence in controlled environment PFO (patent foramen ovale) PTSD (post-traumatic stress disorder) Scoliosis Seizures Spondylosis of lumbar spine SVT (supraventricular tachycardia) S/p ablation Therapeutic opioid induced constipation Surgical History H/O lithotripsy History of History of cerebral aneurysm repair (~2014) S/P cystoscopy with ureteral stent placement S/P tubal ligation Status post ablation operation for arrhythmia SVT Status post thoracic spinal fusion Family History Paternal Aunt Cerebral aneurysm Diabetes Hypertension Maternal Aunt Migraines Maternal Grandmother Heart disease Hypertension Migraines Paternal Grandmother Heart disease Diabetes Father Diabetes Hypertension Maternal Grandfather Diabetes Paternal Uncle Diabetes Hypertension Paternal Grandfather Hypertension Brother Migraines Mother Migraines Social History Smoking/Tobacco Use Status: Current every day Tobacco Type: cigarettes Quit status: considering quitting Smoking risk assessment performed?: Yes Alcohol Intake: former Drug use: Current Sobriety Substance use type: former substance user, marijuana, crack/cocaine, heroin, opiates and IV drugs Details: former heroin and cocaine user, 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 only drugs that she uses currently is marijuana Household members: other Details: lives w/ cousin's ex- and her children Number of Children: 3 Do you feel safe at home: Yes Do you feel safe in your relationship?: Yes History History 2 Para 3 Hx # Term Pregnancies 2 Multiple births Hx # Pregnancies Ectopic pregnancies AB induced Hx Number of Living Children 3 AB spontaneous Exam Const General: cooperative Orientation: alert and oriented x3 HENMT Other: Uvula midline Oropharynx patent Eyes Pupils: PERRL Neck Other: no stridor Chest Chest: normal inspection of the chest Resp Effort & Inspection: normal respiratory effort Auscultation: clear to auscultation bilaterally Cardio Rate: regular rate Rhythm: regular rhythm GI Inspection: normal to inspection Auscultation: normal bowel sounds Skin General skin exam: no rashes or lesions noted Neuro General: patient alert and patient oriented x3 Extrem Other: No rashes or lesions Psych Appearance: grossly normal Course Vital Signs Vital signs: Vital Signs Temperature 36.6 C 11/25/20 12:50 Pulse 106 H 11/25/20 12:50 Respiratory Rate 15 11/25/20 12:50 Blood Pressure 155/108 H 11/25/20 12:50 Pulse Oximetry 98 11/25/20 12:50 Temperature 36.6 C 11/25/20 12:50 Temperature Source Temporal Artery Scan 11/25/20 12:50 Pulse 70 11/25/20 14:31 Pulse 72 11/25/20 14:31 Respiratory Rate 4 L 11/25/20 14:31 Respiratory Effort Non-Labored 11/25/20 12:53 Blood Pressure 155/100 H 11/25/20 14:31 Blood Pressure Mean 109 11/25/20 14:31 Blood Pressure Position Sitting 11/25/20 12:50 Pulse Oximetry 95 11/25/20 14:31 Oxygen Delivery Method Room Air 11/25/20 12:50 Oxygen Flow Rate 0 11/25/20 12:50 Pain Level 5 11/25/20 12:50
--- NOTE | 2020-11-25 15:16 | NUR.NOTE ---
pt observed in bed sleeping, no signs of pain or distress, noted, VS stable, will continue to monitor and maintain safety.
== END 2020-11-25 16:18 | disposition home or self-care (01) ==
PROVIDERS: Emergency Provider Physician Assistant; PCP Nurse Practitioner Family
DX: T63.441A Toxic effect of venom of bees, accidental (unintentional), initial encounter (principal); R13.10 Dysphagia, unspecified
CPT/HCPCS: 36415; 96365; 96375; 99284; J1200; J2930

== ENCOUNTER 2020-12-02 14:07 | Outpatient (REF) | payer MEDICAID, SELFPAY ==
[2020-12-03 12:44] LABS: COVID-19 RT-PCR UVMMC Result Negative (Negative)
== END 2020-12-02 14:08 | disposition home or self-care (01) ==
LOC: NCHCN 14:07
PROVIDERS: PCP Nurse Practitioner Family; Visit Provider Family Medicine
DX: Z20.822 Contact with and (suspected) exposure to COVID-19 (principal)
CPT/HCPCS: U0003

== ENCOUNTER 2021-02-23 16:22 | Outpatient (REF) | payer MEDICAID, SELFPAY ==
[2021-02-25 06:23] LABS: COVID-19 RT-PCR UVMMC Result Positive (Negative)
== END 2021-02-23 16:23 | disposition home or self-care (01) ==
LOC: LBN 16:22
PROVIDERS: PCP Nurse Practitioner Family; Visit Provider Physician Assistant
DX: Z20.822 Contact with and (suspected) exposure to COVID-19 (principal); R05.8 Other specified cough; R51.9 Headache, unspecified
CPT/HCPCS: U0003

== ENCOUNTER 2021-02-27 16:42 | Inpatient (IN) | payer MEDICAID, SELFPAY ==
[2021-02-27] VITALS (89 sets, daily range): BP systolic 92–132; BP diastolic 50–91; PULSE 77–98; RESP 10–26; TEMP 36.4–38; O2SAT 79–100
--- NOTE | 2021-02-27 16:45 | RT.EKG_ITS ---
APPROVED REPORT Exam: Resting ECG Reason for Exam: sob Patient Location: E HR:92 bpm ECG Measurements Heart Rate 92 AXIS MI 142 P 24 QRSd 114 QRS -7 QT 413 T -19 QTc 511 Conclusion Sinus rhythm...normal P axis, V-rate 60- 99 Incomplete right bundle branch block...QRSd >112, terminal axis(90,270) Prolonged QT interval...QTc >495mS
--- NOTE | 2021-02-27 17:16 | W.ED.GENAD ---
Discharge Plan Disposition Patient Disposition: [facility] INPATIENT Condition: Fair Discharge Details Clinical Impression: Pneumonia due to COVID-19 virus Admit Date/Time: 02/27/21 20:40 Admit Provider: Nicolas Dunbar Attending Provider: Nicolas Dunbar Primary Care Provider: Frances Sorensen ED Provider: Yanique Justice Medical Decision Making 30 year old female presents to the ER with Chief c/o of near syncope, increased fatigue and Right sided chest pain. Patient tested positive for Covid 19 on 02-23-21. She c/o greenish brown productive cough, Denies vomiting diarrhea.positive nausea. PMHX Hepatitis C, MHA, PTSD, Stroke, Hx IVD in remission, on methadone, living in a hotel. Reports she was told by [facility] department that she qualified for MAB. She is taking Doxycycline for presumed PNA, last dose this am. O2 sat 91% RA, after exertion. Patient reports that she is vaccinated for Covid she received her [employer] vaccination 2 to 3 months ago. 1751: Patient moved to a monitored room, O2 sat 84% on room air, patient placed on 2 L nasal cannula, labs show hemoglobin 9.1, hematocrit 31.3, BUN 31, creatinine 1.5 GFR 40.50, glucose 112 calcium 8.1 AST 40 alk phos 140 albumin 3.0 initial troponin elevated at 0.10.. 324 mg ASA ordered and given. Differential diagnosis includes vomiting to coronary artery disease, myocarditis, Covid pneumonia, PE 1919 for by medical staff physician that patient is wheezing. COMPARISON: CT THORAX ABDOMEN CTA 07/14/2019 10:44 PM FINDINGS: Pulmonary arteries: No filling defects within the pulmonary arteries are identified to suggest pulmonary embolism. Aorta: Unremarkable. No aortic aneurysm. No aortic dissection. Lungs: There are new patchy regions of tiny subcentimeter irregular nodular branching airspace opacities throughout the right lung, consistent with infectious small airways disease with multifocal regions of mild bronchopneumonia. The central airways are patent. There is mild central peribronchial thickening on the right. There is no bronchiectasis or bronchiolectasis. Pleural spaces: Unremarkable. No pneumothorax. No pleural effusion. Heart: There is no bowing of the interventricular septum or disproportionate enlargement of the right heart. There is no reflux of contrast into the IVC or hepatic veins. Heart size is normal. There is no pericardial effusion. Mediastinal space: The esophagus is not distended. Lymph nodes: There is no evidence of lymphadenopathy. Diaphragm: There is a small sliding hiatal hernia which appears decreased in size since prior study. Bones/joints: There is moderate thoracic dextroscoliosis. There is posterior fusion hardware which appears unchanged and grossly intact. There appears to be diffuse osseous fusion of the posterior elements of the mid and lower thoracic spine, as on prior study. Soft tissues: Unremarkable. IMPRESSION: 1. No pulmonary embolism identified. 2. New patchy regions of tiny subcentimeter nodular branching airspace opacities within the right lung suggesting multifocal infectious small airways disease with regions of mild bronchopneumonia. 3. New mild central peribronchial thickening within the right lung suggesting bronchitis. 4. Small sliding hiatal hernia. Thank you for allowing us to participate in the care of your patient. Dictated and Authenticated by: Alistair Howard MD Patient has scattered expiratory wheezes throughout, patient sat up in bed O2 decreased from 5 L nasal cannula to 2 L nasal cannula. DuoNeb ordered and dexamethasone 4 mg IV been given by medical staff physician. Repeat troponin ordered now. Patient c/o nausea, medical staff physician to give crackers, Zofran 4 mg IV ordered. 2026: RA trial desat 87%, Spoke with Dr. Dunbar he agrees to accept patient for admission. 2248: Patient transferred up to floor in hemodynamically stable condition. This text was generated using [employer] system, please disregard any oddities of phrase or misspellings. HPI General Mode of arrival: ambulatory. Date/Time Provider Initiated Documentation: 02/27/21 16:47. Limitations to Documentation: no limitations. Information obtained by: patient, RN notes reviewed and old records reviewed. HPI Narrative: 30 year old female presents to the ER with Chief c/o of near syncope, increased fatigue and Right sided chest pain. Patient tested positive for Covid 19 on 02-23-21. She c/o greenish brown productive cough, Denies vomiting diarrhea.positive nausea. PMHX Hepatitis C, MHA, PTSD, Stroke, Hx IVD in remission, on methadone, living in a hotel. Reports she was told by [facility] that she qualified for MAB. She is taking Doxycycline for presumed PNA, last dose this am. O2 sat 91% RA, after exertion. Patient reports that she is vaccinated for Covid she received her [employer] vaccination 2 to 3 months ago. Related Data Home Medications Medication Instructions Recorded Confirmed methadone [Dolophine] 114 mg PO DAILY 12/25/15 02/27/21 acetaminophen [Mapap Extra 1,000 mg PO Q6H 5 Days #60 tab 11/19/17 02/27/21 Strength] albuterol sulfate 1 puff INHALATION Q6H PRN 02/03/18 02/27/21 paroxetine HCl [Paxil] 20 mg PO HS 02/03/18 02/27/21 docusate sodium [Docusil] 100 mg PO DAILY #60 cap 07/01/18 02/27/21 Flovent HFA 1 puff INHALATION BID 10/17/18 02/27/21 aspirin [Aspir-81] 81 mg PO DAILY 10/17/18 02/27/21 hydroxyzine HCl 25 mg PO TID PRN 10/17/18 02/27/21 lisinopril 5 mg PO DAILY 10/17/18 02/27/21 metoprolol succinate 50 mg PO DAILY 10/17/18 02/27/21 naproxen 375 mg PO TID PRN 10/17/18 02/23/21 epinephrine 0.3 mg IM ONCE PRN #1 each 10/22/18 02/27/21 pregabalin [Lyrica] See Rx Instructions .ROUTE .COMPLEX 05/15/19 02/27/21 cyclobenzaprine 5 mg PO BID 07/14/19 02/27/21 diphenhydramine HCl [Benadryl] 25 mg PO QHS PRN 07/14/19 02/27/21 epinephrine 0.3 mg IM ONCE #2 ea 11/25/20 02/23/21 prednisone 40 mg PO DAILY #8 tab 11/25/20 02/23/21 amoxicillin-potassium clavulanate 2 tab PO BID #28 tab 02/23/21 02/23/21 1,000 mg-62.5 mg tablet,ext.rel 12hr benzonatate 100 mg capsule 100 mg PO TID PRN #14 cap 02/23/21 02/27/21 doxycycline hyclate 100 mg capsule 100 mg PO BID #14 cap 02/23/21 02/27/21 olanzapine 5 mg tablet 5 mg PO DAILY 11/02/21 11/06/21 Previous Rx's Medication Instructions Recorded acetaminophen [Mapap Extra 1,000 mg PO Q6H 5 Days #60 tab 11/19/17 Strength] docusate sodium [Docusil] 100 mg PO DAILY #60 cap 07/01/18 epinephrine 0.3 mg IM ONCE PRN #1 each 10/22/18 epinephrine 0.3 mg IM ONCE #2 ea 11/25/20 prednisone 40 mg PO DAILY #8 tab 11/25/20 amoxicillin-potassium clavulanate 2 tab PO BID #28 tab 02/23/21 1,000 mg-62.5 mg tablet,ext.rel 12hr benzonatate 100 mg capsule 100 mg PO TID PRN #14 cap 02/23/21 doxycycline hyclate 100 mg capsule 100 mg PO BID #14 cap 02/23/21 Allergies Allergy/AdvReac Type Severity Reaction Status Date / Time meperidine HCl [From Demerol] Allergy Severe Anaphylaxsi Unverified 02/27/21 16:59 s venom-honey bee Allergy Severe anaphylaxis Unverified 02/27/21 16:59 [bee venom (honey bee)] lithium AdvReac Mild NAUSEA Unverified 02/27/21 16:59 sertraline HCl [From Zoloft] AdvReac Mild NIGHTMARES Unverified 02/27/21 16:59 General Stated Complaint: Dizzy/Sync KALINA: 3 Review of Systems All systems reviewed & are unremarkable except as noted in HPI and below [facility] Medical History (Updated 02/27/21 @ 20:40 by Yanique Justice) ADD (attention deficit disorder) Aneurysm of ophthalmic artery L, s/p stent Asthma Atrial septal aneurysm Blood bacterial culture positive Chronic daily headache Chronic pain Chronic systolic CHF (congestive heart failure) EF 50% in 08/2018 [place] [facility] [place] acquired bacterial pneumonia Depression Fibromyalgia Hepatitis C infection History of intravenous drug abuse Intracranial aneurysm Migraine headache with aura (~2000) Nephrolithiasis Opioid dependence in controlled environment PFO (patent foramen ovale) PTSD (post-traumatic stress disorder) Scoliosis Seizures Spondylosis of lumbar spine SVT (supraventricular tachycardia) S/p ablation Therapeutic opioid induced constipation Surgical History H/O lithotripsy History of History of cerebral aneurysm repair (~2014) S/P cystoscopy with ureteral stent placement S/P tubal ligation Status post ablation operation for arrhythmia SVT Status post thoracic spinal fusion Family History Paternal Aunt Cerebral aneurysm Diabetes Hypertension Maternal Aunt Migraines Maternal Grandmother Heart disease Hypertension Migraines Paternal Grandmother Heart disease Diabetes Father Diabetes Hypertension Maternal Grandfather Diabetes Paternal Uncle Diabetes Hypertension Paternal Grandfather Hypertension Brother Migraines Mother Migraines Social History Smoking/Tobacco Use Status: Current every day Tobacco Type: cigarettes Quit status: considering quitting Smoking risk assessment performed?: Yes Alcohol Intake: former Drug use: Current Sobriety Substance use type: former substance user, marijuana, crack/cocaine, heroin, opiates and IV drugs Details: former heroin and cocaine user, 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 only drugs that she uses currently is marijuana Household members: other Details: lives w/ cousin's ex- and her children Number of Children: 3 Do you feel safe at home: Yes Do you feel safe in your relationship?: Yes History History 2 Para 3 Hx # Term Pregnancies 2 Multiple births Hx # Pregnancies Ectopic pregnancies AB induced Hx Number of Living Children 3 AB spontaneous Exam Narrative Exam Narrative: Constitutional: Alert and oriented x2, Slightly confused. Appears stated age. Normal body habitus. Head: Normocephalic, no trauma. Eyes: Pupils PERRL, Red reflex noted, EOM's intact. Eyelids symmetrical without lesions, discharge, or swelling. ENT: Bilateral TM's WNL, External ear normal to inspection, no mastoid TTP, swelling, or erythema, Nasal turbinates WNL, no nasal discharge. Normal dentition, Posterior pharynx WNL, no exudate. Chest: RRR, Normal S1, S2, distal pulses intact. Resp: Expiratory wheezes noted bilaterally, rhonchi in the bases. Abdomen: Soft, non-distended, Normoactive bowel sounds all 4 quads. Musculoskeletal: Unable to assess gait 5/5 strength to all four extremities. Skin: No suspicious rashes or lesions. Capillary refill less than 2 sec. Neurologic: Cranial nerves II-XII intact. Alert and oriented x 2. Motor: No deficits noted. Sensory: Intact bilaterally all 4 extremities. Reflexes: DTR's intact bilaterally. No focal defecits. Hematologic/Lymphatic: No ecchymosis, no lymphadenopathy. Course Vital Signs Vital signs: Vital Signs Temperature 37.6 C H 02/27/21 16:56 Pulse 98 H 02/27/21 16:56 Respiratory Rate 20 02/27/21 16:56 Blood Pressure 132/71 02/27/21 16:56 Pulse Oximetry 91 L 02/27/21 16:56 Temperature 37.6 C H 02/27/21 16:56 Temperature Source Temporal Artery Scan 02/27/21 16:56 Pulse 98 H 02/27/21 16:56 Respiratory Rate 20 02/27/21 16:56 Blood Pressure 132/71 02/27/21 16:56 Blood Pressure Position Supine 02/27/21 16:56 Pulse Oximetry 91 L 02/27/21 16:56 Oxygen Delivery Method Room Air 02/27/21 16:56 Oxygen Flow Rate 0 02/27/21 16:56
[2021-02-27] MEDS: Normal Saline 1,000 ML 1000 ML IV ×2 (17:26→19:50)
[2021-02-27 17:32] LABS: Abs Immature Grans 0.04 10^3/uL (0.0-0.06); Absolute Basophil Count 0.02 10^3/uL (0.0-0.2); Absolute Lymphocyte Count 2.73 10^3/uL (1.2-3.4); Absolute Monocyte Count 0.52 10^3/uL (0.1-0.8); Basophils % 0.2; HCT 31.3 % (36.0-46.0); HGB 9.1 g/dL (11.2-15.7); Immature Grans % 0.4; Lymphocytes % 27.5; MCH 24.4 pg (27.0-33.0); MCHC 29.1 % (32.0-36.0); MCV 83.9 fL (80-95); MPV 11.1 fL (8.0-11.0); Monocytes % 5.2; Neutrophils % 66.7; Nucleated RBC 0 %; Platelet Count 297 10^3/uL (130-400); RBC 3.73 10^6/uL (3.93-5.22); RDW 15.6 % (11.7-14.6); RDW-SD 47.5 fL; WBC 9.91 10^3/uL (4.4-10.8)
[2021-02-27 17:45] LABS: ALT 33 U/L (14-59); AST 40 U/L (15-37); Alkaline Phosphatase 140 U/L (46-116); Anion Gap 5.9 mmol/L (3-11); BUN 31 mg/dL (7-18); Bilirubin, Total 0.2 mg/dL (0.2-1.0); CO2 31.1 mmol/L (21.0-32.0); CREATININE 1.5 mg/dL (0.55-1.02); Calcium 8.1 mg/dL (8.5-10.1); Chloride 100 mmol/L (98-107); Glucose 112 mg/dL (74-106); Magnesium 1.9 mg/dL (1.8-2.4); Potassium 4.2 mmol/L (3.5-5.1); Sodium 137 mmol/L (136-145); Total Protein 8.2 g/dL (6.4-8.2)
[2021-02-27 17:49] LABS: HCG Qual (Serum) Negative
[2021-02-27] MEDS: Aspirin 81 MG CHEW 324 MG CH (17:57)
--- NOTE | 2021-02-27 18:10 | DI.CT_ITS ---
Exam(s) CT CHEST PE CTA EXAM: CT CHEST PE CTA CLINICAL HISTORY: Covid positive, R/O PE. TECHNIQUE: Imaging Protocol: Axial CT angiography was performed with multi-slice acquisition and mu lti-planar and/or 3D reconstructions. CONTRAST MATERIAL: Intravenous: Omnipaque 350 Contrast volume:structured data in ml COMPARISON: No exams were available for comparison FINDINGS: CT angiography of the chest was performed with intravenous infusion of 100 cc of Omnipaque 350. There are diffuse airspace opacities in the right lung suggesting AA multifocal bronchopneumonia. Le ft lung is predominantly clear with few minimal patchy airspace opacities noted period. No pleural e ffusion. Tracheobronchial tree appears intact. No evidence of pulmonary embolic disease. Thoracic aorta is of normal diameter, no thoracic aortic an eurysm or dissection, major branch vessels appear intact. No mediastinal or hilar adenopathy. Images obtained through the upper abdomen show unremarkable appearance of the visualized portions of the liver, spleen, pancreas, adrenals, and kidneys. IMPRESSION: No evidence of pulmonary embolic disease. There are are multifocal right lung opacities suggesting f or of pneumonitis, presumably a bronchopneumonia. RADIATION DOSE DELIVERED: 495.27mGy.cm Total DLP 495.27mGy.cm Total DLP 13.67mGy CTDIvol DATA REPOSITORY: All CT scans at this facility are submitted to the National Radiology Data Registry (NRDR) Dose Index Registry (DIR) with the [employer] (A[employer]). RADIATION OPTIMIZATION: All CT scans at this facility use at least one of these dose optimization te chniques: automated exposure control; mA and/or kV adjustment per patient size (includes targeted exa ms where dose is matched to clinical indication); or iterative reconstruction.
[2021-02-27] MEDS: Normal Saline - Diluent 50 ML VIAL IV (18:24)
[2021-02-27] MEDS: Omnipaque 350 MG/ML 100 ML BTL IJ (18:25)
--- NOTE | 2021-02-27 19:08 | DI.VRAD_ITS ---
PROCEDURE INFORMATION: Exam: CTA Chest With Contrast Exam date and time: 02/27/2021 5:51 PM Age: 30 years old Clinical indication: Other: Covid+; Prior surgery TECHNIQUE: Imaging protocol: Computed tomographic angiography of the chest with contrast. 3D rendering (Not supervised by radiologist): MIP and/or 3D reconstructed images were created by the technologist. Radiation optimization: All CT scans at this facility use at least one of these dose optimization techniques: automated exposure control; mA and/or kV adjustment per patient size (includes targeted exams where dose is matched to clinical indication); or iterative reconstruction. Contrast material: [id number]; Contrast volume: 100 ml; Contrast route: INTRAVENOUS (IV); COMPARISON: CT THORAX ABDOMEN CTA 07/14/2019 10:44 PM FINDINGS: Pulmonary arteries: No filling defects within the pulmonary arteries are identified to suggest pulmonary embolism. Aorta: Unremarkable. No aortic aneurysm. No aortic dissection. Lungs: There are new patchy regions of tiny subcentimeter irregular nodular branching airspace opacities throughout the right lung, consistent with infectious small airways disease with multifocal regions of mild bronchopneumonia. The central airways are patent. There is mild central peribronchial thickening on the right. There is no bronchiectasis or bronchiolectasis. Pleural spaces: Unremarkable. No pneumothorax. No pleural effusion. Heart: There is no bowing of the interventricular septum or disproportionate enlargement of the right heart. There is no reflux of contrast into the IVC or hepatic veins. Heart size is normal. There is no pericardial effusion. Mediastinal space: The esophagus is not distended. Lymph nodes: There is no evidence of lymphadenopathy. Diaphragm: There is a small sliding hiatal hernia which appears decreased in size since prior study. Bones/joints: There is moderate thoracic dextroscoliosis. There is posterior fusion hardware which appears unchanged and grossly intact. There appears to be diffuse osseous fusion of the posterior elements of the mid and lower thoracic spine, as on prior study. Soft tissues: Unremarkable. IMPRESSION: 1. No pulmonary embolism identified. 2. New patchy regions of tiny subcentimeter nodular branching airspace opacities within the right lung suggesting multifocal infectious small airways disease with regions of mild bronchopneumonia. 3. New mild central peribronchial thickening within the right lung suggesting bronchitis. 4. Small sliding hiatal hernia. Dictated and Authenticated by: Alistair Howard MD. Ordering:JAVIER Chanel MD
[2021-02-27 19:25] LABS: Source Nasal/Nares
[2021-02-27] MEDS: Dexamethasone 4 MG/ML VIAL IVP (19:26)
[2021-02-27] MEDS: Albuterol/Ipratropium 3 ML UPD VIAL UPD (19:26)
[2021-02-27 19:56] LABS: Troponin I 0.06 ng/mL (<0.06)
[2021-02-27] MEDS: Doxycycline Hyclate 100 MG CAP PO (20:02)
[2021-02-27 20:17] LABS: COVID-19 PCR POSITIVE (Negative)
[2021-02-27] MEDS: REMDESIVIR 200 MG in Normal Saline 250 ML 250 MG IVPB (23:53)
[2021-02-27] MEDS: Melatonin 3 MG TAB PO (23:54)
[2021-02-27] MEDS: Enoxaparin 40 MG/0.4 ML SYR SC (23:54)
[2021-02-27] MEDS: PARoxetine 10 MG TAB 20 MG PO (23:54)
[2021-02-27] MEDS: Normal Saline Flush 10 ML SYR IVP (23:56)
[2021-02-28] MEDS: Normal Saline 500 ML 30 ML IV (00:19)
[2021-02-28] MEDS: Famotidine 20 MG TAB PO ×3 (00:33→20:11)
--- NOTE | 2021-02-28 07:11 | HPE_ITS ---
Date of service: 02/27/21 Time of Service: 20:41 Assessment and Plan Assessment and plan (1) Pneumonia due to COVID-19 virus: Status: Acute Assessment and plan: Initial plan was mAb in the ED and d/c. However, her supplemental O2 requirements increased requiring admission. mAb was infused. Dexamethasone 6 mg IV daily. Remdesivir 200mg IV initially, then 100mg IV daily. Doxycycline 100mg IV BID. Consult Pulmonary medicine. Supplemental O2 as needed. Prone if possible; difficult for pt d/t her large body habitus. Vit D, C supplementation. (2) Atypical chest pain: Status: Acute Assessment and plan: Initial mild troponin elevation of 0.1, then normalized. Not likely myocarditis. Pain is with cough and deep breathing; likely pleuritic. (3) History of intravenous drug abuse: Status: Chronic Assessment and plan: Cont methadone. (4) Depression: Status: Chronic Assessment and plan: Cont paroxetine. (5) Asthma: Status: Chronic Assessment and plan: Albuterol HFA prn. Flovent HFA BID (6) Hepatitis C infection: Status: Chronic Assessment and plan: Not on active treatment. History of Present Illness History of Present Illness Chief Complaint: Dyspnea on exertion Narrative: This is a 30 year old female with a PMH of active Hepatitis C, opiod dependence on methadone, cardiac ablation, PFO, CVA, migraine CUADRA, nephrolithiasis, PTSD. She presented to the ER with Chief c/o of near PADRON, near syncope, increased fatigue and Right sided chest pain with cough and deep breath.=. Patient tested positive for Covid 19 on 02-23-21; now appx 2 weeks after onset of symptoms. She c/o greenish brown productive cough, Denies vomiting diarrhea.positive nausea. No fever. She is currently living in a hotel in [facility] while waiting for housing. Reports [facility]. She was prescribed Doxyycline for presumed PNA as an outpt; last dose on the am of admission . O2 sat 91% RA, after exertion; at rest in the mid 90's. Patient reports that she is vaccinated for Covid she received her [employer] vaccination 2 to 3 months ago. mAb was infused. While being evaluated, her O2 sat declined to 84% on room air. She was placed on 2 L nasal cannula. labs show hemoglobin 9.1, hematocrit 31.3, BUN 31, creatinine 1.5 GFR 40.50, glucose 112 calcium 8.1 AST 40 alk phos 140 albumin 3.0 initial troponin elevated at 0.10.. 324 mg ASA ordered and give. CTA chest: 1. No pulmonary embolism identified. 2. New patchy regions of tiny subcentimeter nodular branching airspace opacities within the right lung suggesting multifocal infectious small airways disease with regions of mild bronchopneumonia. 3. New mild central peribronchial thickening within the right lung suggesting bronchitis. 4. Small sliding hiatal hernia. Dexamethasone administered. Doxycycline given. Admitted for ongoing evaluation and treatment. Review of Systems All systems reviewed & are unremarkable except as noted in HPI and below [facility] Medical History ADD (attention deficit disorder) Aneurysm of ophthalmic artery L, s/p stent Asthma Atrial septal aneurysm Blood bacterial culture positive Chronic daily headache Chronic pain Chronic systolic CHF (congestive heart failure) EF 50% in 08/2018 - [facility] [place] Community acquired bacterial pneumonia Depression Fibromyalgia Hepatitis C infection History of intravenous drug abuse Intracranial aneurysm Migraine headache with aura (~2000) Nephrolithiasis Opioid dependence in controlled environment PFO (patent foramen ovale) PTSD (post-traumatic stress disorder) Scoliosis Seizures Spondylosis of lumbar spine SVT (supraventricular tachycardia) S/p ablation Therapeutic opioid induced constipation Surgical History H/O lithotripsy History of History of cerebral aneurysm repair (~2014) S/P cystoscopy with ureteral stent placement S/P tubal ligation Status post ablation operation for arrhythmia SVT Status post thoracic spinal fusion Family History Paternal Aunt Cerebral aneurysm Diabetes Hypertension Maternal Aunt Migraines Maternal Grandmother Heart disease Hypertension Migraines Paternal Grandmother Heart disease Diabetes Father Diabetes Hypertension Maternal Grandfather Diabetes Paternal Uncle Diabetes Hypertension Paternal Grandfather Hypertension Brother Migraines Mother Migraines Social History Smoking/Tobacco Use Status: Current every day Tobacco Type: cigarettes Quit status: considering quitting Smoking risk assessment performed?: Yes Alcohol Intake: former Drug use: Current Sobriety Substance use type: former substance user, marijuana, crack/cocaine, heroin, opiates and IV drugs Details: former heroin and cocaine user, 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 only drugs that she uses currently is marijuana Household members: other Details: lives w/ cousin's ex- and her children Number of Children: 3 Do you feel safe at home: Yes Do you feel safe in your relationship?: Yes History History 2 Para 3 Hx # Term Pregnancies 2 Multiple births Hx # Pregnancies Ectopic pregnancies AB induced Hx Number of Living Children 3 AB spontaneous Meds Allergies and Home Medications Allergies Allergy/AdvReac Type Severity Reaction Status Date / Time meperidine HCl [From Demerol] Allergy Severe Anaphylaxsi Unverified 02/27/21 16:59 s venom-honey bee Allergy Severe anaphylaxis Unverified 02/27/21 16:59 [bee venom (honey bee)] lithium AdvReac Mild NAUSEA Unverified 02/27/21 16:59 sertraline HCl [From Zoloft] AdvReac Mild NIGHTMARES Unverified 02/27/21 16:59 Home Medications Medication Instructions Recorded Confirmed Type methadone [Dolophine] 114 mg PO DAILY 12/25/15 02/27/21 History acetaminophen [Mapap Extra 1,000 mg PO Q6H 5 Days #60 tab 11/19/17 02/27/21 Rx Strength] albuterol sulfate 1 puff INHALATION Q6H PRN 02/03/18 02/27/21 History paroxetine HCl [Paxil] 20 mg PO HS 02/03/18 02/27/21 History docusate sodium [Docusil] 100 mg PO DAILY #60 cap 07/01/18 02/27/21 Rx Flovent HFA 1 puff INHALATION BID 10/17/18 02/27/21 History aspirin [Aspir-81] 81 mg PO DAILY 10/17/18 02/27/21 History hydroxyzine HCl 25 mg PO TID PRN 10/17/18 02/27/21 History lisinopril 5 mg PO DAILY 10/17/18 02/27/21 History metoprolol succinate 50 mg PO DAILY 10/17/18 02/27/21 History naproxen 375 mg PO TID PRN 10/17/18 02/23/21 History epinephrine 0.3 mg IM ONCE PRN #1 each 10/22/18 02/27/21 Rx pregabalin [Lyrica] See Rx Instructions .ROUTE .COMPLEX 05/15/19 02/27/21 History cyclobenzaprine 5 mg PO BID 07/14/19 02/27/21 History diphenhydramine HCl [Benadryl] 25 mg PO QHS PRN 07/14/19 02/27/21 History epinephrine 0.3 mg IM ONCE #2 ea 11/25/20 02/23/21 Rx prednisone 40 mg PO DAILY #8 tab 11/25/20 02/23/21 Rx amoxicillin-potassium clavulanate 2 tab PO BID #28 tab 02/23/21 02/23/21 Rx 1,000 mg-62.5 mg tablet,ext.rel 12hr benzonatate 100 mg capsule 100 mg PO TID PRN #14 cap 02/23/21 02/27/21 Rx doxycycline hyclate 100 mg capsule 100 mg PO BID #14 cap 02/23/21 02/27/21 Rx olanzapine 5 mg tablet 5 mg PO DAILY 02/23/21 02/27/21 History Exam Narrative Exam Narrative: Pleasant, obese female. Intermittent coarse cough noted. Const General: cooperative and no acute distress Nutritional Appearance: obese Orientation: alert and oriented x3 HENMT Head: normocephalic and atraumatic Ears: hearing grossly normal bilaterally Eyes General: appearance normal, both eyes and all related structures Sclera: sclerae normal Pupils: PERRL Neck Neck: full ROM and no JVD Resp Effort & Inspection: normal respiratory effort Auscultation: diminished lung sounds and wheezes expiratory wheezes Cardio Rate: regular rate Rhythm: regular rhythm Heart Sounds: S1 normal and S2 normal GI Inspection: obesity Palpation: soft and nontender Skin General skin exam: no rashes or lesions noted Neuro General: moves all extremities Cognition: normal cognition Speech: speech normal Extrem General: no pedal edema and no calf tenderness Psych Mood: congruent mood Affect: normal affect Attitude: cooperative Results Labs Result diagrams: 02/28/21 07:35 02/28/21 07:35 Labs: Laboratory Results - last 24 hr 02/27/21 02/27/21 02/27/21 17:17 17:17 17:17 WBC 9.91 RBC 3.73 L Hgb 9.1 L Hct 31.3 L MCV 83.9 MCH 24.4 L MCHC 29.1 L RDW 15.6 H Plt Count 297 MPV 11.1 H Immature Gran % 0.4 Neutrophils % 66.7 Lymphocytes % 27.5 Monocytes % 5.2 Eosinophils % 0.0 Basophils % 0.2 Nucleated RBC % 0 Absolute Neutrophils 6.60 Absolute Lymphocytes 2.73 Absolute Monocytes 0.52 Absolute Eosinophils 0.00 Absolute Basophils 0.02 Sodium 137 Potassium 4.2 Chloride 100 Carbon Dioxide 31.1 Anion Gap 5.9 BUN 31 H Creatinine 1.5 H Estimated GFR/1.73 m2 40.50 Glucose 112 H Calcium 8.1 L Magnesium 1.9 Total Bilirubin 0.2 AST 40 H ALT 33 Alkaline Phosphatase 140 H Troponin I 0.10 H* Total Protein 8.2 Albumin 3.0 L Serum HCG, Qual Negative COVID-19 Source SARS-CoV-2 (PCR) 02/27/21 02/27/21 19:15 19:30 WBC RBC Hgb Hct MCV MCH MCHC RDW Plt Count MPV Immature Gran % Neutrophils % Lymphocytes % Monocytes % Eosinophils % Basophils % Nucleated RBC % Absolute Neutrophils Absolute Lymphocytes Absolute Monocytes Absolute Eosinophils Absolute Basophils Sodium Potassium Chloride Carbon Dioxide Anion Gap BUN Creatinine Estimated GFR/1.73 m2 Glucose Calcium Magnesium Total Bilirubin AST ALT Alkaline Phosphatase Troponin I 0.06 Total Protein Albumin Serum HCG, Qual COVID-19 Source Nasal/Nares SARS-CoV-2 (PCR) POSITIVE A* Last Vital Signs Temp 36.4 C L 02/27/21 23:39 Pulse 77 02/27/21 23:39 Resp 21 02/27/21 23:39 BP 119/66 02/27/21 23:39 Pulse Ox 94 02/27/21 23:39
[2021-02-28 07:51] LABS: Abs Immature Grans 0.01 10^3/uL (0.0-0.06); Absolute Basophil Count 0.02 10^3/uL (0.0-0.2); Absolute Lymphocyte Count 2.43 10^3/uL (1.2-3.4); Absolute Monocyte Count 0.49 10^3/uL (0.1-0.8); Basophils % 0.3; HCT 30.2 % (36.0-46.0); HGB 8.6 g/dL (11.2-15.7); Immature Grans % 0.1; Lymphocytes % 31.4; MCH 24.2 pg (27.0-33.0); MCHC 28.5 % (32.0-36.0); MCV 84.8 fL (80-95); Monocytes % 6.3; Neutrophils % 61.9; Nucleated RBC 0 %; Platelet Count 238 10^3/uL (130-400); RBC 3.56 10^6/uL (3.93-5.22); RDW 15.8 % (11.7-14.6); RDW-SD 48.7 fL; WBC 7.75 10^3/uL (4.4-10.8)
[2021-02-28] MEDS: Cholecalciferol (Vitamin D3) 1,000 UNIT TAB 1000 UNITS PO (08:01)
[2021-02-28] MEDS: Cyclobenzaprine 10 MG TAB 5 MG PO ×2 (08:01→20:11)
[2021-02-28] MEDS: Docusate Sodium 100 MG CAP PO (08:01)
[2021-02-28] MEDS: Aspirin E.C. 81 MG TABEC PO (08:01)
[2021-02-28] MEDS: Metoprolol CR 25 MG TABCR 50 MG PO (08:01)
[2021-02-28] MEDS: Dexamethasone 10 MG/ML VIAL 6 MG IVP (08:01)
[2021-02-28] MEDS: OLANZapine 5 MG TAB PO (08:01)
[2021-02-28] MEDS: Ascorbic Acid 500 MG TAB 1000 MG PO ×2 (08:01→20:11)
[2021-02-28] MEDS: Normal Saline Flush 10 ML SYR IVP ×4 (08:02→20:14)
[2021-02-28 08:07] VITALS: BP 114/76; PULSE 64; RESP 16; TEMP 35.6; O2SAT 97
[2021-02-28 08:10] LABS: ALT 25 U/L (14-59); AST 21 U/L (15-37); Albumin 2.6 g/dL (3.4-5.0); Alkaline Phosphatase 120 U/L (46-116); Anion Gap 3.8 mmol/L (3-11); BUN 18 mg/dL (7-18); Bilirubin, Total 0.2 mg/dL (0.2-1.0); C-Reactive Protein 3.55 mg/dL (0.0-0.3); CO2 32.2 mmol/L (21.0-32.0); CREATININE 0.8 mg/dL (0.55-1.02); Chloride 105 mmol/L (98-107); Glucose 86 mg/dL (74-106); Potassium 4.6 mmol/L (3.5-5.1); Sodium 141 mmol/L (136-145); Total Protein 7.4 g/dL (6.4-8.2)
[2021-02-28 08:41] LABS: D-Dimer 509 ng/mlFEU (<500)
[2021-02-28 08:42] LABS: Ferritin 20 ng/mL (8-252)
[2021-02-28] MEDS: DOXYCYCLINE 100 MG in Normal Saline 100 ML IVPB ×2 (09:26→20:14)
[2021-02-28] MEDS: Mometasone 220 MCG 14 DOSE INHALER 2 PUFF IH ×2 (09:26→20:14)
--- NOTE | 2021-02-28 10:50 | INITIAL_ITS ---
- If Service Date Differs Date of service: 02/28/21 Time of Service: 11:40 Care Management Initial Assess REASON FOR HOSPITALIZATION:: Covid Pneumonia, Bronchitis PAST MEDICAL HISTORY/PAST SURGICAL HISTORY:: ADD (attention deficit disorder). Aneurysm of ophthalmic artery. L, s/p stent. Asthma. Atrial septal aneurysm. Blood bacterial culture positive. Chronic daily headache. Chronic pain. Chronic systolic CHF (congestive heart failure). EF 50% in 08/2018 - [facility] [place]. Community acquired bacterial pneumonia. Depression. Fibromyalgia. Hepatitis C infection. History of intravenous drug abuse. Intracranial aneurysm. Migraine headache with aura (~2000). Nephrolithiasis. Opioid dependence in controlled environment. PFO (patent foramen ovale). PTSD (post-traumatic stress disorder). Scoliosis. Seizures. Spondylosis of lumbar spine. SVT (s upraventricular tachycardia). S/p ablation. Therapeutic opioid induced constipation. H/O lithotripsy. History of . History of cerebral aneurysm repair (~2014). S/P cystoscopy with ureteral stent placement. S/P tubal ligation. Status post ablation operation for arrhythmia. SVT. Status post thoracic spinal fusion PREVIOUS FUNCTIONAL STATUS/SOCIAL/FAMILY SUPPORTS:: Ghada lives in [place] with family, where her and her boyfriend rent a room. She is currently unemployed, seeking disability, and is connected with [employer]. She also has support from a transplant case manager, Rafael. She has previously had support from Naz Saldivar at [facility], but states that she has not seen her recently. She is mostly independent with her ADL's, although her pain causes her difficulty at times to complete them. CURRENT FUNCTIONAL STATUS:: Ghada remains on Covid-19 precautions, per report she is on RA this afternoon, and making gains toward discharge. CM continues to follow. ADVANCE DIRECTIVES:: None on file, current HIPPA lists Deidre Ervin, Avtar Soler, Nicolas Garza. Has patient been provided with info about the portal/API?: Yes Did the patient sign up for the portal?: Yes (Previously) CODE STATUS:: Full Code INSURANCE COVERAGE / FINANCIAL ISSUES:: Medicaid CURRENT HOME/COMMUNITY SERVICES/EQUIPMENT:: Previous: [facility], [facility], [facility], [facility]. Ghada currently has a cane, and shower bench. PRIMARY CARE PHYSICIAN:: Frances Sorensen POTENTIAL DISCHARGE NEEDS:: Follow up appointments, evaluations for further needs PATIENT/FAMILY EDUCATION NEEDS:: Review discharge instructions regarding activity levels and medications, discussion of self care needs including ask me three ANTICIPATED BARRIERS TO DISCHARGE:: None identified at this time. TRANSPORTATION:: Anticipate Ghada will transport via private vehicle with a friend vs RCT PLAN:: Ghada is currently on CV-19 precautions, she was able to transition to room air this afternoon. Anticipate she will return home when medically cleared and transport via private vehicle with family/friend or RCT. CM will continue to follow.
[2021-02-28 11:45] VITALS: O2SAT 93
[2021-02-28 12:32] VITALS: BP 118/71; PULSE 61; RESP 20; TEMP 36.4; O2SAT 92
[2021-02-28 15:06] VITALS: PULSE 61
--- NOTE | 2021-02-28 16:11 | PGE_ITS ---
Date of Service Date of service: 02/28/21 Time of Service: 16:11 Assessment and Plan Assessment and plan (1) Pneumonia due to COVID-19 virus: Status: Acute Assessment and plan: S/p MAB, w/ dexamethasone/remdesivir/baricitinib initiated due to development of hypoxia (up to 3L overnight), with hypoxia quickly resolving. I question whether there is an obstructive sleep apnea component. Will monitor O2 sats tonight. Check procalcitonin. Until then, continue doxycycline. Vitamin supplementation. IS/acapella. (2) Atypical chest pain: Status: Acute Assessment and plan: Mild troponinemia normalized, may have been due to hypoxia. Echo is pending. Monitor on tele. (3) History of intravenous drug abuse: Status: Chronic Assessment and plan: Continue methadone. We were unable to verify dose of methadone with [facility] today as it is a Monday. (4) Asthma: Status: Chronic Assessment and plan: Continue Albuterol HFA prn and mometasone scheduled. (5) Depression: Status: Chronic Assessment and plan: Continue paroxetine. (6) Hepatitis C infection: Status: Chronic Assessment and plan: Not on active treatment. (7) Discharge planning issues: Status: Acute Assessment and plan: Full code C/s PT (8) DVT prophylaxis: Status: Acute Assessment and plan: SC enoxaparin Subjective Subjective Interval history since last seen: Ms Ervin required 3L of O2 at night but has now been weaned down to RA. She is saturating 92%. Denies dizziness, endorses pleuritic chest pain, denies shortnes sof breath. Feels clammy, nauseated, and has dairrhea. She thinks it is because she is going through methadone withdrawal. She states she takes 120 mg of methadone through [facility] daily. She says she also takes lyrica 150 mg BID as well as a 75 mg dose in am and has just gotten her script filled at [facility]. She only ambulates with a walker. Agrees to work with PT while here because she feels weak. Exam Narrative Exam Narrative: General: Pleasant obese female, A&Ox3, on RA, no dyspnea/tachypnea/cyanosis HEENT: EOMI, MMM Heart: RRR, no m/r/g Lungs: faint rhonchi throughout B lung ching Abdomen: soft, nontender, nondistended Extremities: no edema BLEs Objective Last Vital Signs Temp 36.4 C L 02/28/21 12:32 Pulse 61 02/28/21 12:32 Resp 20 02/28/21 12:32 BP 118/71 02/28/21 12:32 Pulse Ox 92 02/28/21 12:32 Laboratory Results - last 24 hr 02/27/21 02/27/21 02/27/21 17:17 17:17 17:17 WBC 9.91 RBC 3.73 L Hgb 9.1 L Hct 31.3 L MCV 83.9 MCH 24.4 L MCHC 29.1 L RDW 15.6 H Plt Count 297 MPV 11.1 H Immature Gran % 0.4 Neutrophils % 66.7 Lymphocytes % 27.5 Monocytes % 5.2 Eosinophils % 0.0 Basophils % 0.2 Nucleated RBC % 0 Absolute Neutrophils 6.60 Absolute Lymphocytes 2.73 Absolute Monocytes 0.52 Absolute Eosinophils 0.00 Absolute Basophils 0.02 D-Dimer Sodium 137 Potassium 4.2 Chloride 100 Carbon Dioxide 31.1 Anion Gap 5.9 BUN 31 H Creatinine 1.5 H Estimated GFR/1.73 m2 40.50 Glucose 112 H Calcium 8.1 L Magnesium 1.9 Ferritin Total Bilirubin 0.2 AST 40 H ALT 33 Alkaline Phosphatase 140 H Troponin I 0.10 H* C-Reactive Protein Total Protein 8.2 Albumin 3.0 L Serum HCG, Qual Negative COVID-19 Source SARS-CoV-2 (PCR) 02/27/21 02/27/21 02/28/21 19:15 19:30 07:35 WBC RBC Hgb Hct MCV MCH MCHC RDW Plt Count MPV Immature Gran % Neutrophils % Lymphocytes % Monocytes % Eosinophils % Basophils % Nucleated RBC % Absolute Neutrophils Absolute Lymphocytes Absolute Monocytes Absolute Eosinophils Absolute Basophils D-Dimer Sodium 141 Potassium 4.6 Chloride 105 Carbon Dioxide 32.2 H Anion Gap 3.8 BUN 18 D Creatinine 0.8 D Estimated GFR/1.73 m2 >= 60.00 Glucose 86 Calcium 8.0 L Magnesium Ferritin 20 Total Bilirubin 0.2 AST 21 ALT 25 Alkaline Phosphatase 120 H Troponin I 0.06 C-Reactive Protein 3.55 H Total Protein 7.4 Albumin 2.6 L Serum HCG, Qual COVID-19 Source Nasal/Nares SARS-CoV-2 (PCR) POSITIVE A* 02/28/21 02/28/21 07:35 07:35 WBC 7.75 RBC 3.56 L Hgb 8.6 L Hct 30.2 L MCV 84.8 MCH 24.2 L MCHC 28.5 L RDW 15.8 H Plt Count 238 MPV 10.0 Immature Gran % 0.1 Neutrophils % 61.9 Lymphocytes % 31.4 Monocytes % 6.3 Eosinophils % 0.0 Basophils % 0.3 Nucleated RBC % 0 Absolute Neutrophils 4.80 Absolute Lymphocytes 2.43 Absolute Monocytes 0.49 Absolute Eosinophils 0.00 Absolute Basophils 0.02 D-Dimer 509 H Sodium Potassium Chloride Carbon Dioxide Anion Gap BUN Creatinine Estimated GFR/1.73 m2 Glucose Calcium Magnesium Ferritin Total Bilirubin AST ALT Alkaline Phosphatase Troponin I C-Reactive Protein Total Protein Albumin Serum HCG, Qual COVID-19 Source SARS-CoV-2 (PCR)
[2021-02-28 16:41] LABS: Creatine Kinase 112 U/L (26-192)
[2021-02-28] MEDS: Loperamide 2 MG CAP 4 MG PO (16:46)
[2021-02-28] MEDS: Methadone Liquid 10 MG/ML 120 MG PO (17:21)
[2021-02-28 20:01] VITALS: BP 117/79; PULSE 63; RESP 18; TEMP 35.1; O2SAT 94
[2021-02-28] MEDS: Benzonatate 100 MG CAP PO (20:48)
[2021-02-28] MEDS: Melatonin 3 MG TAB PO (22:31)
[2021-02-28] MEDS: Enoxaparin 40 MG/0.4 ML SYR SC (22:31)
[2021-02-28] MEDS: PARoxetine 20 MG TAB PO (22:31)
[2021-02-28] MEDS: Pregabalin 50 MG CAP 150 MG PO (22:34)
[2021-02-28 23:42] VITALS: PULSE 57
[2021-03-01 03:55] VITALS: BP 121/77; PULSE 57; RESP 18; TEMP 35.2; O2SAT 98
[2021-03-01 07:00] VITALS: PULSE 56
[2021-03-01 07:37] LABS: Abs Immature Grans 0.01 10^3/uL (0.0-0.06); Absolute Basophil Count 0.01 10^3/uL (0.0-0.2); Absolute Eosinophil Count 0.01 10^3/uL (0.0-0.7); Absolute Lymphocyte Count 2.74 10^3/uL (1.2-3.4); Absolute Monocyte Count 0.29 10^3/uL (0.1-0.8); Absolute Neutrophil Count 2.22 10^3/uL (1.2-6.7); Basophils % 0.2; Eosinophils % 0.2; HCT 28.9 % (36.0-46.0); HGB 8.4 g/dL (11.2-15.7); Immature Grans % 0.2; Lymphocytes % 51.9; MCH 23.9 pg (27.0-33.0); MCHC 29.1 % (32.0-36.0); MCV 82.1 fL (80-95); MPV 10.5 fL (8.0-11.0); Monocytes % 5.5; Nucleated RBC 0 %; Platelet Count 195 10^3/uL (130-400); RBC 3.52 10^6/uL (3.93-5.22); RDW 15.7 % (11.7-14.6); RDW-SD 47.2 fL; WBC 5.28 10^3/uL (4.4-10.8)
--- NOTE | 2021-03-01 08:15 | RT.EKG_ITS ---
APPROVED REPORT Exam: Resting ECG Reason for Exam: QTc prolongation Patient Location: I HR:56 bpm ECG Measurements Heart Rate 56 AXIS TX 168 P 2 QRSd 110 QRS -14 QT 557 T -18 QTc 537 Conclusion Sinus bradycardia...rate< 60 Low voltage, precordial leads...precordial leads <1.0mV Prolonged QT interval...QTc >495mS
[2021-03-01 08:18] LABS: D-Dimer 329 ng/mlFEU (<500)
[2021-03-01 08:21] LABS: INR 1.1 (0.9-1.1)
[2021-03-01] MEDS: DOXYCYCLINE 100 MG in Normal Saline 100 ML IVPB (08:25)
[2021-03-01] MEDS: Dexamethasone 10 MG/ML VIAL 6 MG IVP (08:26)
[2021-03-01] MEDS: Cholecalciferol (Vitamin D3) 1,000 UNIT TAB 1000 UNITS PO (08:26)
[2021-03-01] MEDS: OLANZapine 5 MG TAB PO (08:26)
[2021-03-01 08:27] LABS: ALT 32 U/L (14-59); AST 29 U/L (15-37); Albumin 2.3 g/dL (3.4-5.0); Alkaline Phosphatase 103 U/L (46-116); Anion Gap 4.5 mmol/L (3-11); BUN 24 mg/dL (7-18); Bilirubin, Direct 0.1 mg/dL (0.0-0.2); Bilirubin, Total 0.2 mg/dL (0.2-1.0); C-Reactive Protein 1.82 mg/dL (0.0-0.3); CO2 32.5 mmol/L (21.0-32.0); CREATININE 0.7 mg/dL (0.55-1.02); Calcium 7.9 mg/dL (8.5-10.1); Chloride 105 mmol/L (98-107); Glucose 77 mg/dL (74-106); Magnesium 1.8 mg/dL (1.8-2.4); Potassium 3.9 mmol/L (3.5-5.1); Sodium 142 mmol/L (136-145); Total Protein 6.7 g/dL (6.4-8.2)
[2021-03-01] MEDS: Metoprolol CR 25 MG TABCR 50 MG PO (08:27)
[2021-03-01] MEDS: Ascorbic Acid 500 MG TAB 1000 MG PO (08:27)
[2021-03-01] MEDS: Famotidine 20 MG TAB PO (08:27)
[2021-03-01] MEDS: Docusate Sodium 100 MG CAP PO (08:27)
[2021-03-01] MEDS: Pregabalin 25 MG CAP 75 MG PO (08:27)
[2021-03-01] MEDS: Aspirin E.C. 81 MG TABEC PO (08:28)
[2021-03-01] MEDS: Cyclobenzaprine 10 MG TAB 5 MG PO (08:28)
[2021-03-01] MEDS: Mometasone 220 MCG 14 DOSE INHALER 2 PUFF IH (08:29)
[2021-03-01 08:39] VITALS: BP 138/88; PULSE 59; RESP 18; TEMP 35.5; O2SAT 94
[2021-03-01 08:54] LABS: Procalcitonin < 0.1 ng/mL
[2021-03-01 09:00] LABS: Ferritin 17 ng/mL (8-252)
--- NOTE | 2021-03-01 09:35 | PUCON_ITS ---
General Date Of Service Date of service: 03/01/21 Time of Service: 09:35 Reason for Consult: COVID bacterial PNA Assessment and Plan Assessment and plan (1) Pneumonia due to COVID-19 virus: Status: Acute (2) PFO (patent foramen ovale): Status: Acute (3) History of intravenous drug abuse: Status: Chronic (4) Asthma: Status: Chronic Qualifiers: Asthma severity: mild Asthma persistence: persistent Asthma complication type: uncomplicated Qualified Code(s): J45.30 - Mild persistent asthma, uncomplicated (5) Respiratory failure: Status: Acute Assessment and plan: 30-year-old female with history of asthma, PFO, cardiac ablation who was recently diagnosed with pneumonia as an outpatient as well as Covid on February 23, 2021 who presents to the emergency department with worsening symptoms. She was found to be hypoxic during her emergency department stay during her monoclonal antibody infusion which prompted her admission. She was started on dexamethasone, remdesivir, and doxycycline and improved greatly her admission. She is currently on room air and anxious to go home. Based on the appearance of her CAT scan I do feel as though the pattern of infiltrate (one-sided and nodular infiltrate) is more consistent with a bacterial pneumonia, despite a negative procalcitonin. Covid pneumonia presents with bilateral groundglass infiltrates and more dense consolidation. On discharge she should continue for a 7-day course of doxycycline with a prednisone taper. She was instructed to return to the emergency department if her symptoms begin to worsened. Hypoxic respiratory failure - resolved - ambulatory pulse ox Bacterial pneumonia - recommend doxycycline for 7 days - recommend prednisone 40mg for 5 days, 30mg for 4 days, 20mg for 4 days, 10mg for 3 days, 5mg for 3 days - recommend outpatient repeat chest CT in 3 months to ensure resolution of nodular infiltrates - can be completed by PCP Asthma - continue prn lisinopril - continue Flovent 2 puff bid upon discharge until she is feeling better and then can go back to 1 puff bid - rinse mouth after use Qualifiers: Chronicity: acute Respiratory failure complication: hypoxia Qualified Code(s): J96.01 - Acute respiratory failure with hypoxia History of Present Illness Narrative: This is a 30-year-old female with a past medical history of hepatitis C, opioid dependence on methadone, cardiac ablation and PFO who has had recurrent pneumonias in the past who comes to the emergency department after worsening shortness of breath and fatigue. She was Covid positive on 02/23/2021 and was started on doxycycline as an outpatient for pneumonia. Reports that which is what brought this emergency department. Admitted she states that she has improved greatly. She is on room air and feeling good. She is fully vaccinated for Covid and had medical antibody infusion completed in the ER (they had plan to discharge her from that until her O2 sats began decreasing). She was placed on remdesivir, dexamethasone and doxycycline on admission. Today on my assessment she is feeling quite well, she is saturating well on room air and is anxious to go home. She has a good appetite and her chest pain is improved. Review of Systems All systems reviewed & are unremarkable except as noted in HPI and below [facility] Medical History (Updated 03/01/21 @ 09:44 by Ghada Teague MD) ADD (attention deficit disorder) Aneurysm of ophthalmic artery L, s/p stent Asthma Atrial septal aneurysm Blood bacterial culture positive Chronic daily headache Chronic pain Chronic systolic CHF (congestive heart failure) [place]% [place] [facility] [place] bacterial pneumonia Depression Fibromyalgia Hepatitis C infection History of intravenous drug abuse Intracranial aneurysm Migraine headache with aura (~2000) Nephrolithiasis Opioid dependence in controlled environment PFO (patent foramen ovale) PTSD (post-traumatic stress disorder) Scoliosis Seizures Spondylosis of lumbar spine SVT (supraventricular tachycardia) S/p ablation Therapeutic opioid induced constipation Surgical History H/O lithotripsy History of History of cerebral aneurysm repair (~2014) S/P cystoscopy with ureteral stent placement S/P tubal ligation Status post ablation operation for arrhythmia SVT Status post thoracic spinal fusion Family History Paternal Aunt Cerebral aneurysm Diabetes Hypertension Maternal Aunt Migraines Maternal Grandmother Heart disease Hypertension Migraines Paternal Grandmother Heart disease Diabetes Father Diabetes Hypertension Maternal Grandfather Diabetes Paternal Uncle Diabetes Hypertension Paternal Grandfather Hypertension Brother Migraines Mother Migraines Social History Smoking/Tobacco Use Status: Current every day Tobacco Type: cigarettes Quit status: considering quitting Smoking risk assessment performed?: Yes Alcohol Intake: former Drug use: Current Sobriety Substance use type: former substance user, marijuana, crack/cocaine, heroin, opiates and IV drugs Details: former heroin and cocaine user, 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 only drugs that she uses currently is marijuana Household members: other Details: lives w/ cousin's ex- and her children Number of Children: 3 Do you feel safe at home: Yes Do you feel safe in your relationship?: Yes History History 2 Para 3 Hx # Term Pregnancies 2 Multiple births Hx # Pregnancies Ectopic pregnancies AB induced Hx Number of Living Children 3 AB spontaneous Visit Medication and Allergies Active Medications Generic Name Dose Route Start Last Admin Trade Name Freq PRN Reason Stop Dose Admin Acetaminophen 0 mg 02/27/21 20:40 Acetaminophen 325 Mg Tab PO Q4H PRN PRN Albuterol Sulfate 1 puff 03/01/21 07:25 Albuterol Hfa 8 Gm 60 Puff Inh IH Q6H PRN PRN Ascorbic Acid 1,000 mg 02/28/21 08:30 03/01/21 08:27 Ascorbic Acid 500 Mg Tab PO 1,000 mg BID SAMIR Administration Aspirin 81 mg 02/28/21 08:30 03/01/21 08:28 Aspirin E.C. 81 Mg Tabec PO 81 mg DAILY SAMIR Administration Baricitinib 4 mg 03/01/21 08:30 03/01/21 08:26 Baricitinib 1 Mg Tab PO 03/13/21 08:31 4 mg DAILY SAMIR Administration Benzonatate 100 mg 02/27/21 20:33 02/28/21 20:48 Benzonatate 100 Mg Cap PO 100 mg TID PRN Administration cough Cholecalciferol 1,000 units 02/28/21 08:30 03/01/21 08:26 Cholecalciferol (Vitamin D3) 1,000 Unit Tab PO 1,000 units DAILY SAMIR Administration Cyclobenzaprine HCl 5 mg 02/28/21 08:30 03/01/21 08:28 Cyclobenzaprine 10 Mg Tab PO 5 mg BID SAMIR Administration Device 1 each 02/27/21 21:00 Inhaler, Assist Device MC DIRECTED SAMIR Dexamethasone 6 mg 02/28/21 08:30 03/01/21 08:26 Dexamethasone 10 Mg/Ml Vial IVP 6 mg DAILY SAMIR Administration Dimethicone/Zinc Oxide 0 gm 02/27/21 20:40 Sharon Protect Cream 142 Gm Tube TP PRN PRN Diphenhydramine HCl 25 mg 02/27/21 23:05 Diphenhydramine 25 Mg Cap PO HS PRN Docusate Sodium 100 mg 02/28/21 08:30 03/01/21 08:27 Docusate Sodium 100 Mg Cap PO 100 mg DAILY SAMIR Administration Enoxaparin Sodium 40 mg 02/27/21 22:00 02/28/21 22:31 Enoxaparin 40 Mg/0.4 Ml Syr SC 40 mg Q24H SAMIR Administration Famotidine 20 mg 02/28/21 01:00 EST 03/01/21 08:27 Famotidine 20 Mg Tab PO 20 mg BID SAMIR Administration Sodium Chloride 500 mls @ 0 mls/hr 02/27/21 17:10 Saline 500ml Bag IV PRN PRN As Directed Doxycycline Hyclate 100 mg/ 100 mls @ 100 mls/hr 02/28/21 08:00 03/01/21 08:25 Sodium Chloride IVPB 100 mls/hr Q12H SAMIR Administration Remdesivir 100 mg/ Sodium 100 mls @ 100 mls/hr 02/28/21 22:00 02/28/21 23:35 Chloride IVPB 03/03/21 22:59 Infused Q24H SAMIR Infusion IV Miscellaneous Supplies 1 each 02/27/21 17:15 Iv Access IV DIRECTED SAMIR Loperamide HCl 2 mg 02/28/21 15:47 Loperamide 2 Mg Cap PO QLOOSE PRN Melatonin 3 mg 02/27/21 22:00 02/28/21 22:31 Melatonin 3 Mg Tab PO 3 mg HS SAMIR Administration Metoprolol Succinate 50 mg 02/28/21 08:30 03/01/21 08:27 Metoprolol Cr 25 Mg Tabcr PO 50 mg DAILY SAMIR Administration Mometasone Furoate 2 puff 02/28/21 08:30 03/01/21 08:29 Mometasone 220 Mcg 14 Dose Inhaler IH 2 puffs BID SAMIR Administration Nicotine 14 mg 02/27/21 20:40 Nicotine 14 Mg/24 Hr Patch TD DAILY PRN PRN Olanzapine 5 mg 02/28/21 08:30 03/01/21 08:26 Olanzapine 5 Mg Tab PO 5 mg DAILY SAMIR Administration Ondansetron HCl 4 mg 02/28/21 16:10 Ondansetron 4 Mg/2 Ml Vial IVP Q6H PRN PRN Paroxetine HCl 20 mg 02/28/21 22:00 02/28/21 22:31 Paroxetine 20 Mg Tab PO 20 mg HS SAMIR Administration Polyethylene Glycol 17 gm 02/27/21 20:40 Polyethylene Glycol 3350 17 Gm Packet PO DAILY PRN PRN Constipation Pregabalin 150 mg 02/28/21 22:00 02/28/21 22:34 Pregabalin 50 Mg Cap PO 150 mg BID@14,22 SAMIR Administration Pregabalin 75 mg 03/01/21 08:30 03/01/21 08:27 Pregabalin 25 Mg Cap PO 75 mg DAILY SAMIR Administration Allergies meperidine HCl [From Demerol] Allergy (Severe, Unverified 02/27/21 16:59) Anaphylaxsis venom-honey bee [bee venom (honey bee)] Allergy (Severe, Unverified 02/27/21 16:59) anaphylaxis lithium Adverse Reaction (Mild, Unverified 02/27/21 16:59) NAUSEA sertraline HCl [From Zoloft] Adverse Reaction (Mild, Unverified 02/27/21 16:59) NIGHTMARES Exam Const General: no acute distress Nutritional Appearance: obese HENMT Head: normocephalic Ears: external ears normal and no periauricular adenopathy General nose exam: nasal mucous membranes and turbinates normal Face and sinus: sinuses nontender Mouth: oropharynx normal and moist mucous membranes Teeth and gingiva: dentition normal Eyes General: appearance normal, both eyes and all related structures Pupils: PERRL Neck Neck: normal visual inspection and no lymphadenopathy Chest Chest: normal inspection of the chest Resp Effort & Inspection: normal respiratory effort Auscultation: clear to auscultation bilaterally, no rales, no rhonchi and no wheezes Cardio Rate: regular rate Rhythm: regular rhythm Heart Sounds: S1 normal, S2 normal and no murmurs Pulses: radial pulses present bilaterally GI Inspection: normal to inspection Palpation: soft Skin General skin exam: no rashes or lesions noted Neuro General: patient alert, patient awake and patient oriented x3 Extrem General: no clubbing, cyanosis or edema Psych Mental Status: mental status grossly normal Affect: normal affect Attitude: cooperative Results Last Vital Signs Temp 35.5 C L 03/01/21 08:39 Pulse 59 L 03/01/21 08:39 Resp 18 03/01/21 08:39 BP 138/88 03/01/21 08:39 Pulse Ox 94 03/01/21 08:39 Labs Result diagrams: 03/01/21 07:20 03/01/21 07:20 Labs: Laboratory Results - last 24 hr 02/28/21 03/01/21 03/01/21 07:35 07:20 07:20 WBC 5.28 D RBC 3.52 L Hgb 8.4 L Hct 28.9 L MCV 82.1 MCH 23.9 L MCHC 29.1 L RDW 15.7 H Plt Count 195 MPV 10.5 Immature Gran % 0.2 Neutrophils % 42.0 Lymphocytes % 51.9 Monocytes % 5.5 Eosinophils % 0.2 Basophils % 0.2 Nucleated RBC % 0 Absolute Neutrophils 2.22 Absolute Lymphocytes 2.74 Absolute Monocytes 0.29 Absolute Eosinophils 0.01 Absolute Basophils 0.01 PT INR D-Dimer Sodium 142 Potassium 3.9 Chloride 105 Carbon Dioxide 32.5 H Anion Gap 4.5 BUN 24 H Creatinine 0.7 Estimated GFR/1.73 m2 >= 60.00 Glucose 77 Calcium 7.9 L Magnesium 1.8 Ferritin 17 Total Bilirubin 0.2 Conjugated Bilirubin 0.1 AST 29 ALT 32 Alkaline Phosphatase 103 Creatine Kinase 112 C-Reactive Protein 1.82 H Total Protein 6.7 Albumin 2.3 L Procalcitonin 03/01/21 03/01/21 07:20 07:20 WBC RBC Hgb Hct MCV MCH MCHC RDW Plt Count MPV Immature Gran % Neutrophils % Lymphocytes % Monocytes % Eosinophils % Basophils % Nucleated RBC % Absolute Neutrophils Absolute Lymphocytes Absolute Monocytes Absolute Eosinophils Absolute Basophils PT 11.0 INR 1.1 D-Dimer 329 Sodium Potassium Chloride Carbon Dioxide Anion Gap BUN Creatinine Estimated GFR/1.73 m2 Glucose Calcium Magnesium Ferritin Total Bilirubin Conjugated Bilirubin AST ALT Alkaline Phosphatase Creatine Kinase C-Reactive Protein Total Protein Albumin Procalcitonin < 0.1
[2021-03-01 09:45] VITALS: PULSE 60; PULSE 62; PULSE 88; RESP 16; RESP 18; O2SAT 92; O2SAT 96
--- NOTE | 2021-03-01 12:16 | W.PM.DS.N ---
Date of service: 03/01/21 Time of Service: 12:17 DS: Diagnosis Discharge Diagnosis (1) Pneumonia due to COVID-19 virus: Status: Acute (2) Bacterial pneumonia: Status: Acute (3) Respiratory failure: Status: Resolved (4) QT prolongation: Status: Acute (5) PFO (patent foramen ovale): Status: Chronic (6) Asthma: Status: Chronic (7) History of intravenous drug abuse: Status: Chronic (8) Opioid dependence: Status: Chronic Discharge Plan Disposition Patient Disposition: HOME Condition: Fair Discharge Details Reason For Visit: Covid Pneumonia, Bronchitis Admit Date/Time: 02/27/21 20:40 Admit Provider: Nicolas Dunbar Attending Provider: Nicolas Dunbar Primary Care Provider: Frances Sorensen Hospital Course Hospital Course: Ms Ervin is a 30 year old female with PMHx of asthma, opioid dependence on methadone via BAART (120 mg daily), stroke w/ h/o PFO, hepatitis C, who was a patient on [facility] hospitalist service from 02/27/2021 until 03/01/21 for COVID-19 pneumonia with hypoxia and superimposed bacterial pneumonia. She ruled out for a PE by a negative CTA, though she had some pleuritic chest pain. She initially did not require oxygen and received MAB in the ED. However, she then developed an oxygen requirement (maximum of 3L). She did have a borderline elevated troponin in the setting of hypoxia, but it is not felt to indicate true ischemia. She improved markedly with the remdesivir, dexamethasone, and baricitinib therapy. She is now on room air. She did well on exercise oxymetry on room air. She will need to finish a 7 day course of doxycycline and a prednisone taper as recommended by Dr Teague, who saw the patient in consultation. The patient was noted to have QTc prolongation after receiving her methadone dose yesterday evening. We did inform [facility] of this, in case they want to change their therapy. The patient is medically stable for discharge home today. She should self-isolate for another two days after discharge. 45 minutes were spent on care for patient as well as completion of her discharge paperwork. Home Meds and New Rx's Prescriptions: New ascorbic acid (vitamin C) [Vitamin C] 500 mg Tablet 1,000 mg PO BID Qty: 120 RF: 0 famotidine 20 mg Tablet 20 mg PO BID Qty: 60 RF: 0 cholecalciferol (vitamin D3) 25 mcg (1,000 unit) Tablet 2,000 units PO DAILY Qty: 60 RF: 0 prednisone 10 mg tablet See Rx Instructions .ROUTE .COMPLEX Qty: 45 RF: 0 Continued olanzapine 5 mg tablet 5 mg PO DAILY RF: 0 benzonatate [Tessalon Perles] 100 mg capsule 100 mg PO TID PRN (Reason: cough) Qty: 14 RF: 0 acetaminophen [Mapap Extra Strength] 500 MG tablet 1,000 mg PO Q6H 5 Days Qty: 60 RF: 0 paroxetine HCl [Paxil] 10 mg Tablet 20 mg PO HS RF: 0 albuterol sulfate 90 mcg/actuation Hfa Aerosol Inhaler 1 puff INHALATION Q6H PRNRF: 0 docusate sodium [Docusil] 100 mg capsule 100 mg PO DAILY Qty: 60 RF: 0 epinephrine 0.3 mg/0.3 mL auto-injector 0.3 mg IM ONCE PRN (Reason: anaphylaxis) Qty: 1 RF: 1 epinephrine 0.3 mg/0.3 mL auto-injector 0.3 mg IM ONCE Qty: 2 RF: 0 aspirin [Aspir-81] 81 mg Tablet,Delayed Release (Dr/Ec) 81 mg PO DAILY RF: 0 hydroxyzine HCl 25 mg Tablet 25 mg PO TID PRNRF: 0 Flovent HFA 220 mcg/actuation Hfa Aerosol Inhaler 1 puff INHALATION BID RF: 0 lisinopril 5 mg Tablet 5 mg PO DAILY RF: 0 metoprolol succinate 25 mg Tablet Extended Release 24 Hr 50 mg PO DAILY RF: 0 naproxen 375 mg Tablet,Delayed Release (Dr/Ec) 375 mg PO TID PRNRF: 0 pregabalin [Lyrica] 75 mg Capsule See Rx Instructions .ROUTE .COMPLEX RF: 0 diphenhydramine HCl [Benadryl] 25 mg Capsule 25 mg PO QHS PRNRF: 0 cyclobenzaprine 5 mg Tablet 5 mg PO BID RF: 0 doxycycline hyclate 100 mg capsule 100 mg PO BID Qty: 14 RF: 0 Discontinued amoxicillin-pot clavulanate [Augmentin XR] 1,000-62.5 mg tablet extended release 12 hr 2 tab PO BID Qty: 28 RF: 0 methadone [Dolophine] 10 MG tablet 120 mg PO DAILY RF: 0 prednisone 20 mg tablet 40 mg PO DAILY Qty: 8 RF: 0 Discharge Instructions Instructions: COVID-19 (Coronavirus Disease 2019) (DC) Additional Instructions: Return to the hospital with any fever, bleeding, worsening chest pain, or shortness of breath. Complete your antibiotics and steroid taper as prescribed. Follow up with PCP In 1-2 weeks. Self isolate for 2 more days. Referrals: Frances Sorensen [Primary Care Provider] - Activity:: Activity as Tolerated Equipment/Supplies:: No Equipment Needed Diet:: As Tolerated Discharge Orders Discharge Orders: Discharge Order (Routine); Ordered 03/01/21 Ordered By: Rosie Hdez Discharge Data Discharge Date/Time-TO BE ENTERED AT DEPARTURE: 03/01/21 12:24 DS: Summary Time Spent with Patient providing and/or coordinating discharge services: Greater than 30 minutes Status at Discharge Functional status at discharge: uses cane/walker Overall status at discharge: patient is back to baseline Mental Status: mental status grossly normal Speech and Movement: speech and movement normal Mood: congruent mood Affect: normal affect Exam Narrative Exam Narrative: Exam conducted over the phone due to patient's improvement and her diagnosis of COVID-19. The patient was speaking fluently without dyspnea/tachypnea, and had appropriate concent. Psych Mental Status: mental status grossly normal Speech and Movement: speech and movement normal Mood: congruent mood Affect: normal affect DS: Data Vitals/I&O Vitals and I&O: Vital Signs Temperature 35.5 C L 03/01/21 08:39 Temperature Source Tympanic 03/01/21 08:39 Pulse 59 L 03/01/21 08:39 Pulse Rhythm Regular 03/01/21 10:56 Pulse 90 02/27/21 21:20 Respiratory Rate 18 03/01/21 08:39 Respiratory Effort Non-Labored 03/01/21 10:56 Respiratory Depth Normal 03/01/21 10:56 Respiratory Pattern Normal 03/01/21 10:56 Blood Pressure 138/88 03/01/21 08:39 Blood Pressure Mean 82 02/27/21 21:16 Blood Pressure Position Supine 02/27/21 16:56 Pulse Oximetry 94 03/01/21 08:39 Oxygen Delivery Method Room Air 03/01/21 08:39 Oxygen Flow Rate 0 03/01/21 08:39 Pain Level 6 03/01/21 08:39 Comment 02/27/21 18:47 Intake & Output 02/28/21 03/01/21 03/01/21 23:59 11:59 23:59 Intake Total 420 / 877.5 220 / 220 Output Total 350 / 350 Balance 420 / 877.5 -130 / -130 Intake: IV 220 / 677.5 20 / 20 Oral 200 / 200 200 / 200 Output: Urine 350 / 350 Other: Urine Color Yellow Urine Appearance Clear Clear Urine Odor Normal Comment patient is independent in her room Voiding Methods Toilet Data Completed and Pending Completed studies during hospitalization [Text1]: CTA chest: No evidence of pulmonary embolic disease. There are are multifocal right lung opacities suggesting for of pneumonitis, presumably a bronchopneumonia. Pending studies at discharge: Echo read (PCP to follow) Labs on day of discharge: Labs from last 24 hours 03/01/21 03/01/21 03/01/21 07:20 07:20 07:20 WBC 5.28 D RBC 3.52 L Hgb 8.4 L Hct 28.9 L MCV 82.1 MCH 23.9 L MCHC 29.1 L RDW 15.7 H Plt Count 195 MPV 10.5 Immature Gran % 0.2 Neutrophils % 42.0 Lymphocytes % 51.9 Monocytes % 5.5 Eosinophils % 0.2 Basophils % 0.2 Nucleated RBC % 0 Absolute Neutrophils 2.22 Absolute Lymphocytes 2.74 Absolute Monocytes 0.29 Absolute Eosinophils 0.01 Absolute Basophils 0.01 PT 11.0 INR 1.1 D-Dimer 329 Sodium Potassium Chloride Carbon Dioxide Anion Gap BUN Creatinine Estimated GFR/1.73 m2 Glucose Calcium Magnesium Ferritin Total Bilirubin Conjugated Bilirubin AST ALT Alkaline Phosphatase Creatine Kinase C-Reactive Protein Total Protein Albumin Procalcitonin < 0.1 03/01/21 02/28/21 07:20 07:35 WBC RBC Hgb Hct MCV MCH MCHC RDW Plt Count MPV Immature Gran % Neutrophils % Lymphocytes % Monocytes % Eosinophils % Basophils % Nucleated RBC % Absolute Neutrophils Absolute Lymphocytes Absolute Monocytes Absolute Eosinophils Absolute Basophils PT INR D-Dimer Sodium 142 Potassium 3.9 Chloride 105 Carbon Dioxide 32.5 H Anion Gap 4.5 BUN 24 H Creatinine 0.7 Estimated GFR/1.73 m2 >= 60.00 Glucose 77 Calcium 7.9 L Magnesium 1.8 Ferritin 17 Total Bilirubin 0.2 Conjugated Bilirubin 0.1 AST 29 ALT 32 Alkaline Phosphatase 103 Creatine Kinase 112 C-Reactive Protein 1.82 H Total Protein 6.7 Albumin 2.3 L Procalcitonin [facility] Medical History (Updated 03/01/21 @ 12:46 by Rosie Hdez MD) ADD (attention deficit disorder) Aneurysm of ophthalmic artery L, s/p stent Asthma Atrial septal aneurysm Blood bacterial culture positive Chronic daily headache Chronic pain Chronic systolic CHF (congestive heart failure) [place] [facility] [place] bacterial pneumonia Depression Fibromyalgia Hepatitis C infection History of intravenous drug abuse Intracranial aneurysm Migraine headache with aura (~2000) Nephrolithiasis Opioid dependence in controlled environment PFO (patent foramen ovale) PTSD (post-traumatic stress disorder) Scoliosis Seizures Spondylosis of lumbar spine SVT (supraventricular tachycardia) S/p ablation Therapeutic opioid induced constipation Surgical History H/O lithotripsy History of History of cerebral aneurysm repair (~2014) S/P cystoscopy with ureteral stent placement S/P tubal ligation Status post ablation operation for arrhythmia SVT Status post thoracic spinal fusion Family History Paternal Aunt Cerebral aneurysm Diabetes Hypertension Maternal Aunt Migraines Maternal Grandmother Heart disease Hypertension Migraines Paternal Grandmother Heart disease Diabetes Father Diabetes Hypertension Maternal Grandfather Diabetes Paternal Uncle Diabetes Hypertension Paternal Grandfather Hypertension Brother Migraines Mother Migraines Social History Smoking/Tobacco Use Status: Current every day Tobacco Type: cigarettes Quit status: considering quitting Smoking risk assessment performed?: Yes Alcohol Intake: former Drug use: Current Sobriety Substance use type: former substance user, marijuana, crack/cocaine, heroin, opiates and IV drugs Details: former heroin and cocaine user, 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 only drugs that she uses currently is marijuana Household members: other Details: lives w/ cousin's ex- and her children Number of Children: 3 Do you feel safe at home: Yes Do you feel safe in your relationship?: Yes History History 2 Para 3 Hx # Term Pregnancies 2 Multiple births Hx # Pregnancies Ectopic pregnancies AB induced Hx Number of Living Children 3 AB spontaneous
--- NOTE | 2021-03-01 12:45 | PDOC.CMDIS ---
- If Service Date Differs Date of service: 03/01/21 Time of Service: 12:45 LACE Index Scoring Tool - Questions: Length of Stay (in days): 2 Acuity (Admit via E.D.?): Yes Comorbidities: Cerebrovascular Disease E.D. Visits: 3 - Answers: Total Score: 9 Risk of Readmission: Low Risk Care Management Discharge Reason for Hospitalization: Covid Pneumonia, Bronchitis Discharge Plan: Ghada was discharged, although she left prior to receiving her discharge instructions. JUANA assisted in obtaining a last dose letter from , and faxed it to [facility], at their request, after speaking to [facility] over the phone. She coordinated her own transportation. She will follow up with her PCP and discharge plan of care. Patient/Family Education Needs: Review discharge instructions and limitations, discussion of self care needs including ask me three.
== END 2021-03-01 12:24 | disposition home or self-care (01) | DRG 177 ==
LOC: ER 20:40 → MS 22:50
PROVIDERS: Internal Medicine; Admitting Provider Family Medicine; Emergency Provider Registered Nurse Emergency; PCP Nurse Practitioner Family; Visit Provider Family Medicine
DX: U07.1 COVID-19 (principal); J12.82 Pneumonia due to coronavirus disease 2019; J96.01 Acute respiratory failure with hypoxia; Z68.42 Body mass index [BMI] 45.0-49.9, adult; F11.20 Opioid dependence, uncomplicated; Q21.1 Atrial septal defect; I50.22 Chronic systolic (congestive) heart failure; E66.01 Morbid (severe) obesity due to excess calories; G47.33 Obstructive sleep apnea (adult) (pediatric); M06.9 Rheumatoid arthritis, unspecified; R07.89 Other chest pain; F32.A Depression, unspecified; B18.2 Chronic viral hepatitis C; Z86.73 Personal history of transient ischemic attack (TIA), and cerebral infarction without residual deficits; G43.909 Migraine, unspecified, not intractable, without status migrainosus; F43.10 Post-traumatic stress disorder, unspecified; F98.8 Other specified behavioral and emotional disorders with onset usually occurring in childhood and adolescence; M79.7 Fibromyalgia; G40.909 Epilepsy, unspecified, not intractable, without status epilepticus; M47.816 Spondylosis without myelopathy or radiculopathy, lumbar region; K59.03 Drug induced constipation; T40.2X5A Adverse effect of other opioids, initial encounter; F17.210 Nicotine dependence, cigarettes, uncomplicated; F12.90 Cannabis use, unspecified, uncomplicated; J45.30 Mild persistent asthma, uncomplicated; R94.31 Abnormal electrocardiogram [ECG] [EKG]
CPT/HCPCS: 36415; 71275; 80048; 80053; 80076; 82550; 84145; 87635; 93005; 94618; 94640; 96360; 96361; 96365; 96374; 99285; J1650; 82728; 83735; 84484; 84703; 85025; 85379; 85610; 86140; 93010; 93306; 99223; 99232; 99239; J1100; J3490; J7620

== ENCOUNTER 2021-03-15 10:41 | Emergency (ER) | payer MEDICAID, SELFPAY ==
[2021-03-15] VITALS (49 sets, daily range): BP systolic 113–156; BP diastolic 58–122; PULSE 69–101; RESP 11–28; TEMP 36.8; O2SAT 92–96
--- NOTE | 2021-03-15 10:30 | DI.CT_ITS ---
Exam(s) CT HEAD - STROKE PROTOCOL EXAM: CT HEAD - STROKE PROTOCOL CLINICAL HISTORY: left sided deficit. TECHNIQUE: Imaging Protocol: Axial computed tomography images with coronal and sagittal reformatted images were created and reviewed COMPARISON: CT CT BRAIN NECK CTA from 07/14/2019 MR MR BRAIN WO from 07/15/2019 MR MR VENOUS BRAIN WO/W from 07/15/2019 MR MR BRAIN WO from 07/15/2019 MR MR VENOUS BRAIN WO/W from 07/15/2019 FINDINGS: Left ICA stent. Aneurysm coil supraclinoid right ICA. Ventricles and Extra axial spaces: Normal in size and morphology for the patient's age. Hemorrhage: None. 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 No new infarct. No s ignificant atrophy. Midline shift: None. Brainstem/Cerebellum: Normal. Calvarium: Normal. Visualized Paranasal sinuses/Mastoids: Mild mucosal thickening. Soft Tissues: Unremarkable. IMPRESSION: No acute intracranial process. RADIATION DOSE DELIVERED: Total DLP DATA REPOSITORY: All CT scans at this facility are submitted to the National Radiology Data Registry (NRDR) Dose Index Registry (DIR) with the [employer] ([employer]). RADIATION OPTIMIZATION: All CT scans at this facility use at least one of these dose optimization te chniques: automated exposure control; mA and/or kV adjustment per patient size (includes targeted exa ms where dose is matched to clinical indication); or iterative reconstruction.
--- NOTE | 2021-03-15 10:30 | RT.EKG_ITS ---
APPROVED REPORT Exam: Resting ECG Reason for Exam: left sided weakness Patient Location: E HR:83 bpm ECG Measurements Heart Rate 83 AXIS NC 143 P 28 QRSd 109 QRS -17 QT 385 T 2 QTc 452 Conclusion Sinus rhythm...normal P axis, V-rate 60- 99 no STEMI, non-diagnostic EKG I have reviewed and interpreted ECG and agree with software generated interpretation.
--- NOTE | 2021-03-15 11:06 | W.ED.GENAD ---
Discharge Plan Disposition Patient Disposition: AGAINST MEDICAL ADVICE Condition: Serious Discharge Details Clinical Impression: Acute CVA (cerebrovascular accident) Primary Care Provider: Frances Sorensen ED Provider: Yanique Justice [place] Meds and New Rx's Prescriptions: Continued olanzapine 5 mg tablet 10 mg PO DAILY RF: 0 benzonatate [Tessalon Perles] 100 mg capsule 100 mg PO TID PRN (Reason: cough) Qty: 14 RF: 0 acetaminophen [Mapap Extra Strength] 500 MG tablet 1,000 mg PO Q6H 5 Days Qty: 60 RF: 0 paroxetine HCl [Paxil] 10 mg Tablet 20 mg PO HS RF: 0 albuterol sulfate 90 mcg/actuation Hfa Aerosol Inhaler 1 puff INHALATION Q6H PRNRF: 0 docusate sodium [Docusil] 100 mg capsule 100 mg PO DAILY Qty: 60 RF: 0 epinephrine 0.3 mg/0.3 mL auto-injector 0.3 mg IM ONCE Qty: 2 RF: 0 sennosides [Senna Laxative] 8.6 mg tablet 17.2 mg PO DAILY RF: 0 methadone 10 mg/5 mL Solution 120 mg PO DAILY RF: 0 fluticasone propion-salmeterol [Advair Diskus] 500-50 mcg/dose blister with device 1 inh INHALATION BID RF: 0 hydroxychloroquine 200 mg tablet 400 mg PO DAILY RF: 0 esomeprazole magnesium 20 mg capsule,delayed release(DR/EC) 20 mg PO DAILY RF: 0 polyethylene glycol Powder 17 pwd MISCELLANEOUS DAILY PRNRF: 0 Mavyret 100-40 mg Tablet 3 tab PO DAILY RF: 0 aspirin [Aspir-81] 81 mg Tablet,Delayed Release (Dr/Ec) 81 mg PO DAILY RF: 0 hydroxyzine HCl 25 mg Tablet 25 mg PO TID PRNRF: 0 lisinopril 5 mg Tablet 5 mg PO DAILY RF: 0 metoprolol succinate 25 mg Tablet Extended Release 24 Hr 50 mg PO DAILY RF: 0 naproxen 375 mg Tablet,Delayed Release (Dr/Ec) 375 mg PO TID PRNRF: 0 pregabalin [Lyrica] 75 mg Capsule See Rx Instructions .ROUTE .COMPLEX RF: 0 diphenhydramine HCl [Benadryl] 25 mg Capsule 25 mg PO QHS PRNRF: 0 cyclobenzaprine 5 mg Tablet 5 mg PO BID RF: 0 ascorbic acid (vitamin C) [Vitamin C] 500 mg Tablet 1,000 mg PO BID Qty: 120 RF: 0 cholecalciferol (vitamin D3) 25 mcg (1,000 unit) Tablet 2,000 units PO DAILY Qty: 60 RF: 0 Discharge Instructions Instructions: Ischemic Stroke (DC), Self Care Measures After a Stroke (ED) Additional Instructions: At this time you have decided to leave AGAINST MEDICAL ADVICE. Please call first thing in the morning to your neurologist to make a follow-up appointment. I encourage you to return if you have any return of symptoms of weakness, dizziness, headache trouble seeing or problems using your legs. Please understand that leaving AGAINST MEDICAL ADVICE means that you could be permanently disabled, worsening of your condition up to and including . Please continue to take the 81 mg aspirin previously prescribed. Referrals: NEUROLOGY,[facility] [OTHER] - Stefanie Zaidi MD [ [facility] STAFF PHYSICIAN] - Frances Sorensen [Primary Care Provider] - 2 days Discharge Data Discharge Date/Time-TO BE ENTERED AT DEPARTURE: 03/15/21 21:03 Medical Decision Making <RICCO Dunne - Last Filed: 03/16/21 22:58> Patient is a 30-year-old female presents here to complaint of strokelike symptoms. She reports that at 930 this morning she was standing outside talking to her friend when her became tingly. Has left-sided deficit per EMS. Patient was immediately evaluated on her arrival. No facial droop is appreciated. Patient is mentating and phonating well. Slight weakness of the left upper extremity compared to contralateral side. Glucose per EMS 120. We will send immediately for CT head. Patient does have a history of CVA. Reports headache. Contacted by radiologist. She notes no acute abnormality, no bleed. Sees evidence of previous CVA as well as aneurysm coil NIH stroke scale performed patient returned. She reports that she is feeling improved. States that this morning the symptoms have been waxing and waning. Has not had any persistent symptoms. Her NIH score this time is 0. Patient appears under the influence but denies any drugs or alcohol intake. Vital signs are stable. Past medical history pertinent for fibromyalgia, migraines, SVT, seizures, kidney stones, depression, CVA, HFrEF. Patient feels at this time is likely a migraine. She reports that she has had similar complex migraines historically with neurological present. States she has had a headache intermittent for the past few days. Will give Compazine and Benadryl. Patient does appear intoxicated but denies any drug or alcohol use. She continues to improve in regard to her initial feelings of deficit. She denies any missed medications. She does report that she began increased dosing of her olanzapine last night. She reports that since taking this medication she has had increased fatigue and believes that her fatigue currently is with causing her to appear under the influence. Patient had relief with treatment of her migraine including Compazine and Benadryl. Denies any continued headache or weakness. Her intermittent numbness has subsided. Labs reviewed. No leukocytosis. Patient is anemic with a hemoglobin of 9.3 which appears to be her baseline. CMP significant for magnesium 1.7. Troponin within normal limits. I did obtain a hemoglobin A1c and the patient's glucose here was 246. Hemoglobin A1c 5.9%. Urinalysis obtained without significant abnormality. UDS is positive for methadone, tricyclics and THC. Patient is on daily methadone. Contacted by radiologist who reviewed the patient's CTA. She noted carotid artery stent as well as right aneurysm coil with no acute abnormalities noted. Reevaluated patient, she continues to be asymptomatic. Is texting on her phone, eating and drinking. Consulted with Dr. Garcia. Discussed history, presentation and exam. Patient does have a very complex past medical history. Dr. Zaidi recommends obtaining MRI for further evaluation. Patient has had an MRI here since coil placement in April of 2019, appears to be compatable. Patient reports that she had her coil placed is 6 years ago and that all of her hardware is MRI compatible and that she has had MRIs since placement of stent as well as her coil. Patient has anxiety associated with MRI, 1 mg of Ativan was given IV prior to transfer to diagnostic imaging. At the end of my shift, care transition to Elvira Justice NP, with imaging and disposition pending. Contacted by radiologist. They note multifocal small acute infarct along the bilateral MCA distributions right more than the left. She advised that these lesions are fairly punctate. <Yanique Justice - Last Filed: 03/15/21 21:58> Care assumed from provider (RICCO Tran) Please see their initial HPI, PE, and documentation. Discussed patient details and case and pending workup and disposition. Patient is hemodynamically stable, and alert and oriented. At the time of signout MRI result per V rad shows the above. Radiology to push images to [facility] neurology department. Will consult with [facility] Neurology, discuss findings with patient and recommend admission. 1645: BS evaluation accompanyied by Mrs. Kelly, patient is awake, groggy, c/o small mild right temporal CUADRA, Denies any current numbness, tingling, or weakness. Discussed MRI findings and plan of care with patient including consult with Neurology and probable admission, patient verbalizes understanding. 1702: [facility] transfer Center contacted to speak with Neurology, images requested to be pushed to Neurology. Imaging protocol: MR of the head without contrast. COMPARISON: CT HEAD - STROKE PROTOCOL 03/15/2021 10:48 AM FINDINGS: Brain: Multifocal small regions of acute infarcts in the bilateral frontal lobes, bilateral parietal lobes and right occipitotemporal lobe demonstrating diffusion restriction and FLAIR hyperintense signal abnormality. Small foci of microhemorrhage in the bilateral frontal lobes and left parietal lobe. No confluent parenchymal hematoma. Localized mass effect on the adjacent brain parenchyma. No midline shift. Remote infarct with encephalomalacia of the posterolateral right frontal lobe, corresponding to abnormality seen on the prior head CT. Postoperative changes of prior coil embolization of the right internal carotid artery terminus and distal left ICA stent placement. Cerebral ventricles: No hydrocephalus. Bones/joints: No suspicious calvarial lesion. Paranasal sinuses: Mild ethmoid sinus disease. Mastoid air cells: No mastoid effusion. Orbital cavity: Unremarkable. Soft tissues: Unremarkable. IMPRESSION: 1. Multifocal small regions of acute infarcts in the bilateral frontal lobes, bilateral parietal lobes and right occipitotemporal lobe. 2. Small foci of microhemorrhage in the bilateral frontal lobes and left parietal lobe. No confluent parenchymal hematoma. 3. Remote infarct with encephalomalacia of the posterolateral right frontal lobe, corresponding to abnormality of on the recent head CT. 4. Postoperative changes of prior coil embolization of the right internal carotid artery terminus and distal left ICA stent placement. 1815: Spoke with [facility] neurologist Dr. Dobbs regarding patient case and details. She does recommend transfer for further work-up however at this time there is no bed capacity at [facility] and they do not list for neuro beds. She does recommend admission with telemetry status and an echo transthoracic echocardiogram and possibly a transesophageal echocardiogram she also recommends further work-up to rule out hypercoagulable states, she also did say to consider possible EEG. Will speak with hospitalist regarding patient. 1845: Spoke with Dr. Nesbitt regarding patient case and details, he agrees to see patient here in ED. 1928: Call made to [facility] for transfer at the request of Dr. Nesbitt 1953: Spoke with Dr. Arias with [facility] Neurology regarding patient case and details Dc center reports no beds at this time, patient will be placed on admission list for 24 to 48 hours for transfer, he also recommends further workup again to R/O hypercoagulopathy, He reports that the micro-hemorrhages appear old. 2010: Dr. Arias with [facility] neurology recommend continued aspirin 81 mg that she is on currently, no anticoagulation until further stroke mechanism can be determined. Dr. Nesbitt here in Dept, for patient evaluation. Informed by staff that patient is requesting to leave AGAINST MEDICAL ADVICE. I did confirm this with Dr. Nesbitt he does also confirm that patient does want to leave AGAINST MEDICAL ADVICE. I did discuss the risks regarding leaving AGAINST MEDICAL ADVICE patient verbalized understanding patient reports that she will call neurology department first thing in the morning. I did discuss strict return instructions with her. Patient requesting to leave AMA. The patient appears clinically sober and is not under the influence of any known substances. She is alert and oriented x3 at this time. Discussed risks and benefits with patient. Patient verbalizes understanding of situation and the risks of leaving including worsening condition, developing disability, including but not limited to . Discussed results of labs and imaging, if they were performed and recommendations for further treatment and/or observation. The patient verbalizes understanding of the results discussed. At this time patient has opted to leave against medical advice. Patient is alert and oriented and has the capacity to make own decisions. HPI <RICCO Dunne - Last Filed: 03/16/21 22:58> General Mode of arrival: EMS. Date/Time Provider Initiated Documentation: 03/15/21 11:06. Limitations to Documentation: no limitations. Information obtained by: patient, RN/MD (contacted by PCP prior to arrival), RN notes reviewed and old records reviewed. History of Present Illness 30 year old F presents to the emergency department with the chief complaint of left sided weakness, tingling face, described as moderate and similar to prior episodes, Quality is described as other (patient denies any pain), and is localized to the face, left and upper extremity. Patient reports no radiation. Patient started experiencing this hour(s) (0930) and it has been intermittent. No relieving factors improve symptom(s), No exacerbating factors reported . Patient notes no other symptoms. and weakness; denies confusion, chest pain, cough, fever/chills, headaches, nausea/vomiting, rash and shortness of breath. Patient did receive the following treatments prior to arrival, none Related Data Home Medications Medication Instructions Recorded Confirmed acetaminophen [Mapap Extra 1,000 mg PO Q6H 5 Days #60 tab 11/19/17 03/15/21 Strength] albuterol sulfate 1 puff INHALATION Q6H PRN 02/03/18 03/15/21 paroxetine HCl [Paxil] 20 mg PO HS 02/03/18 03/15/21 docusate sodium [Docusil] 100 mg PO DAILY #60 cap 07/01/18 03/15/21 aspirin [Aspir-81] 81 mg PO DAILY 10/17/18 03/15/21 hydroxyzine HCl 25 mg PO TID PRN 10/17/18 03/15/21 lisinopril 5 mg PO DAILY 10/17/18 03/15/21 metoprolol succinate 50 mg PO DAILY 10/17/18 03/15/21 naproxen 375 mg PO TID PRN 10/17/18 03/15/21 pregabalin [Lyrica] See Rx Instructions .ROUTE .COMPLEX 05/15/19 03/15/21 cyclobenzaprine 5 mg PO BID 07/14/19 03/15/21 diphenhydramine HCl [Benadryl] 25 mg PO QHS PRN 07/14/19 03/15/21 epinephrine 0.3 mg IM ONCE #2 ea 11/25/20 03/15/21 benzonatate 100 mg capsule 100 mg PO TID PRN #14 cap 02/23/21 03/15/21 olanzapine 5 mg tablet 10 mg PO DAILY 02/23/21 03/15/21 ascorbic acid (vitamin C) [Vitamin 1,000 mg PO BID #120 tab 03/01/21 03/15/21 C] cholecalciferol (vitamin D3) 2,000 units PO DAILY #60 tab 03/01/21 03/15/21 Mavyret 3 tab PO DAILY 03/15/21 03/15/21 esomeprazole magnesium 20 mg PO DAILY 03/15/21 03/15/21 fluticasone propion-salmeterol 1 inh INHALATION BID 03/15/21 03/15/21 [Advair Diskus] hydroxychloroquine 400 mg PO DAILY 03/15/21 03/15/21 methadone 120 mg PO DAILY 03/15/21 03/15/21 polyethylene glycol 17 pwd MISCELLANEOUS DAILY PRN 03/15/21 03/15/21 sennosides [Senna Laxative] 17.2 mg PO DAILY 03/15/21 03/15/21 Previous Rx's Medication Instructions Recorded acetaminophen [Mapap Extra 1,000 mg PO Q6H 5 Days #60 tab 11/19/17 Strength] docusate sodium [Docusil] 100 mg PO DAILY #60 cap 07/01/18 epinephrine 0.3 mg IM ONCE #2 ea 11/25/20 benzonatate 100 mg capsule 100 mg PO TID PRN #14 cap 02/23/21 ascorbic acid (vitamin C) [Vitamin 1,000 mg PO BID #120 tab 03/01/21 C] cholecalciferol (vitamin D3) 2,000 units PO DAILY #60 tab 03/01/21 Allergies Allergy/AdvReac Type Severity Reaction Status Date / Time meperidine HCl [From Demerol] Allergy Severe Anaphylaxsi Unverified 03/15/21 12:13 s venom-honey bee Allergy Severe anaphylaxis Unverified 03/15/21 12:13 [bee venom (honey bee)] lithium AdvReac Mild NAUSEA Unverified 03/15/21 12:13 sertraline HCl [From Zoloft] AdvReac Mild NIGHTMARES Unverified 03/15/21 12:13 General Stated Complaint: CVA/TIA KALINA: 2 Review of Systems <RICCO Dunne - Last Filed: 03/16/21 22:58> Constitutional Constitutional: Reports as per HPI, Denies chills, Reports fatigue, Denies fever(s), Denies frequent falls, Reports headache(s) and Reports weakness Eyes Eyes: Reports as per HPI, Reports change in vision (feels more blurry than typical) and Reports photophobia ENT Ears, Nose, Mouth, and Throat: Denies vertigo, Reports headache(s) and Denies neck pain Cardiovascular Cardiovascular: Reports as per HPI, Denies chest pain, Denies lightheadedness, Denies radiating jaw, neck or arm pain, Denies dyspnea and Denies dyspnea on exertion Respiratory Respiratory: Reports as per HPI, Denies chest congestion, Denies cough, Denies dyspnea, Denies dyspnea on exertion and Denies wheezing Gastrointestinal Gastrointestinal: Reports as per HPI, Denies abdominal pain, Denies change in bowel habits, Denies nausea and Denies vomiting Musculoskeletal Musculoskeletal: Reports as per HPI, Denies back pain, Denies myalgias, Denies muscle cramps, Denies neck pain and Reports tingling (intermittent tingling in lips) Integumentary/Breasts Skin/Breast: Reports as per HPI and Denies rash Neurologic Neurologic: Reports as per HPI, Denies abnormal movements, Denies abnormal speech, Denies behavioral changes, Denies confusion, Denies vertigo, Denies frequent falls, Reports headache(s), Denies sensory deficit, Reports tingling (intermittent tingling in lips) and Reports weakness Psychiatric Psychiatric: Denies behavioral changes and Denies confusion Endocrine Endocrine: Reports fatigue Allergic/Immunologic Allergic/Immunologic: Denies wheezing PFSH <RICCO Dunne - Last Filed: 03/16/21 22:58> Active Problem List TIA (transient ischemic attack) (Acute) Bacterial pneumonia (Acute) Opioid dependence (Chronic) QT prolongation (Acute) Pneumonia due to COVID-19 virus (Acute) Allergic reaction (Acute) Medication overuse headache (Acute) Chronic headache (Acute) PFO (patent foramen ovale) (Chronic) Hypersomnia (Acute) Altered mental status (Acute) Abnormal movements (Acute) Right hemiparesis (Acute) Discharge planning issues (Acute) DVT prophylaxis (Acute) Back pain (Acute) Atypical chest pain (Acute) Acute focal neurological deficit (Acute) Stroke-like symptom (Acute) Acute right-sided muscle weakness (Acute) Acute CVA (cerebrovascular accident) (Acute) Status migrainosus (Acute) Stroke (Chronic) Dyspepsia (Acute) Acute febrile illness (Acute) Nephrolithiasis (Chronic) Scoliosis (Chronic) PTSD (post-traumatic stress disorder) (Chronic) History of intravenous drug abuse (Chronic) Depression (Chronic) Asthma (Chronic) Migraine headache with aura (Chronic ~2000) Hepatitis C infection (Chronic) Chronic daily headache (Chronic) Opioid dependence in controlled environment (Chronic) Medical History ADD (attention deficit disorder) Aneurysm of ophthalmic artery L, s/p stent Atrial septal aneurysm Blood bacterial culture positive Chronic pain Chronic systolic CHF (congestive heart failure) EF 50% in 08/2018 - [facility] Community acquired bacterial pneumonia Fibromyalgia Intracranial aneurysm Seizures Spondylosis of lumbar spine SVT (supraventricular tachycardia) S/p ablation Therapeutic opioid induced constipation Surgical History H/O lithotripsy History of History of cerebral aneurysm repair (~2014) S/P cystoscopy with ureteral stent placement S/P tubal ligation Status post ablation operation for arrhythmia SVT Status post thoracic spinal fusion Family History Paternal Aunt Cerebral aneurysm Diabetes Hypertension Maternal Aunt Migraines Maternal Grandmother Heart disease Hypertension Migraines Paternal Grandmother Heart disease Diabetes Father Diabetes Hypertension Maternal Grandfather Diabetes Paternal Uncle Diabetes Hypertension Paternal Grandfather Hypertension Brother Migraines Mother Migraines Social History Smoking/Tobacco Use Status: Current every day Tobacco Type: cigarettes Quit status: considering quitting Smoking risk assessment performed?: Yes Alcohol Intake: former Drug use: Current Sobriety Substance use type: former substance user, marijuana, crack/cocaine, heroin, opiates and IV drugs Details: former heroin and cocaine user, 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 only drugs that she uses currently is marijuana Household members: other Details: lives w/ cousin's ex- and her children Number of Children: 3 Do you feel safe at home: Yes Do you feel safe in your relationship?: Yes History History 2 Para 3 Hx # Term Pregnancies 2 Multiple births Hx # Pregnancies Ectopic pregnancies AB induced Hx Number of Living Children 3 AB spontaneous Exam <RICCO Dunne - Last Filed: 03/16/21 22:58> Const General: cooperative, comfortable, no acute distress, well developed, well groomed and ill appearing acutely and chronically Nutritional Appearance: well nourished and overweight Orientation: alert, awake and oriented x3 [facility] Head: normal to inspection, no palpable skull fracture, normocephalic and atraumatic Ears: hearing grossly normal bilaterally, external ears normal and TM's normal bilaterally General nose exam: external nose normal Mouth: oral mucosae normal and moist mucous membranes Throat: posterior oropharynx normal Eyes General: appearance normal, both eyes and all related structures Visual Hay: normal visual hay by confrontation Alignment and Position: alignment normal Periorbital: periorbital findings normal Eyelids: eyelids normal Sclera: sclerae normal Cornea: corneas normal Pupils: PERRL EOM: EOM intact bilaterally Neck Neck: normal visual inspection, full ROM, no lymphadenopathy and no meningeal signs Resp Effort & Inspection: normal respiratory effort, able to speak in complete sentences and no respiratory distress Auscultation: clear to auscultation bilaterally, no rales, no rhonchi and no wheezes Cardio Rate: regular rate Rhythm: regular rhythm Heart Sounds: S1 normal and S2 normal GI Inspection: normal to inspection and non-distended Palpation: soft, no hepatosplenomegaly, not firm, no guarding, not rigid and nontender Percussion: normal to percussion Auscultation: normal bowel sounds Back/Spine/Pelvis Cervical Spine: normal cervical lordosis and cervical ROM normal Skin General skin exam: no rashes or lesions noted Neuro General: patient alert, patient awake and patient oriented x3 Cranial Nerves: CN's II-XI intact bilaterally Cognition: normal cognition Speech: speech normal Gait: normal gait Motor: muscle tone normal throughout, strength 5/5 throughout, no pronator drift (patient initially had left arm held lower than right, resolved on reeval ), no movement abnormalities noted and no fasciculations Sensory Exam: no sensory deficits noted DTR's: Rt Biceps: 2+, Lt Biceps: 2+, Rt Brachioradialis: 2+, Lt Brachioradialis: 2+, Rt Patellar: 1+, Lt Patellar: 1+, Rt Ankle: 2+ and Lt Ankle: 2+ Coordination: [id number] test normal, [id number] test normal, Romberg test normal, Does not sway with eyes open and rapid alternating movement UE normal Extrem General: normal to inspection, capillary refill normal, no pedal edema and no calf tenderness Psych Appearance: grossly normal and well kempt Mental Status: mental status grossly normal Speech and Movement: speech and movement normal Course <RICCO Dunne - Last Filed: 03/16/21 22:58> Vital Signs Vital signs: Vital Signs Temperature 36.8 C 03/15/21 10:43 Pulse 85 03/15/21 10:43 Respiratory Rate 15 03/15/21 10:43 Blood Pressure 135/70 03/15/21 10:43 Pulse Oximetry 96 03/15/21 10:43 Temperature 36.8 C 03/15/21 10:43 Temperature Source Skin 03/15/21 10:43 Pulse 85 03/15/21 10:43 Respiratory Rate 15 03/15/21 10:43 Blood Pressure 135/70 03/15/21 10:43 Blood Pressure Position Supine 03/15/21 10:43 Pulse Oximetry 96 03/15/21 10:43 Oxygen Delivery Method Room Air 03/15/21 10:43 Oxygen Flow Rate 0 03/15/21 10:43 Pain Level 6 03/15/21 10:43 Sign Out <RICCO Dunne - Last Filed: 03/16/21 22:58> Sign Out Data: Sign Out Comment: . Care transition to Elvira Prather NP with imaging and disposition pending. Patient presented this morning with left-sided deficits which wax and wane. Had complete resolution of headache and neurologic deficit after treatment of her migraine with Compazine and Benadryl. Patient did begin to increase olanzapine last night. Has a history of seizure disorder, CVA, TIA. She has a carotid stent as well as coil and aneurysm. Patient is currently undergoing an MRI at the advisement of Dr. Zaidi. Work-up thus far has been unremarkable Last updated by Mony Kelly PA at 03/15/21 15:53
[2021-03-15 11:12] LABS: Abs Immature Grans 0.02 10^3/uL (0.0-0.06); Absolute Basophil Count 0.02 10^3/uL (0.0-0.2); Absolute Eosinophil Count 0.17 10^3/uL (0.0-0.7); Absolute Lymphocyte Count 1.79 10^3/uL (1.2-3.4); Absolute Monocyte Count 0.46 10^3/uL (0.1-0.8); Absolute Neutrophil Count 6.61 10^3/uL (1.2-6.7); Basophils % 0.2; Eosinophils % 1.9; HCT 31.6 % (36.0-46.0); HGB 9.3 g/dL (11.2-15.7); Immature Grans % 0.2; Lymphocytes % 19.7; MCH 24.2 pg (27.0-33.0); MCHC 29.4 % (32.0-36.0); MCV 82.1 fL (80-95); MPV 11.7 fL (8.0-11.0); Monocytes % 5.1; Neutrophils % 72.9; Nucleated RBC 0 %; Platelet Count 202 10^3/uL (130-400); RBC 3.85 10^6/uL (3.93-5.22); RDW 16.7 % (11.7-14.6); RDW-SD 48.5 fL; WBC 9.07 10^3/uL (4.4-10.8)
[2021-03-15 11:28] LABS: PTT Activated 24.3 sec (21.0-27.5); Prothrombin Time 10.3 sec (9.3-11.0)
--- NOTE | 2021-03-15 11:30 | DI.CT_ITS ---
Exam(s) CT BRAIN NECK CTA EXAM: CT BRAIN NECK CTA CLINICAL HISTORY: intermittent left sided weakness, numbness. TECHNIQUE: Imaging Protocol: Axial CT angiography was performed with multi-slice acquisition and mu lti-planar and/or 3D reconstructions. CONTRAST MATERIAL: Intravenous: Omnipaque 350 Contrast volume:100 ml COMPARISON: CT CT BRAIN CTA from 05/15/[address] CHEST PE CTA from 02/27/2021 FINDINGS: CT Head W/O and W contrast: Prior aneurysm coiling right distal internal carotid artery. Left internal carotid artery stent, pat ent. Ventricles and Extra axial spaces: Normal in size and morphology for the patient's age. Hemorrhage: None. Cerebral parenchyma: Stable area of old infarct right frontal lobe. Midline shift: None. Brainstem/Cerebellum: Normal. Calvarium: Normal. Visualized Paranasal sinuses/Mastoids: Clear. Soft Tissues: Unremarkable. Enhancement: Normal. No venous sinus thrombosis. CTA Brain W: Internal Carotid Arteries: Petrous: Normal. Cavernous: Normal. Cerebral: Normal. Middle Cerebral Arteries: Right: No aneurysm, occlusion or significant stenosis. Left: No aneurysm, occlusion or significant stenosis. Anterior Cerebral Arteries: Right: No aneurysm, occlusion or significant stenosis. Left: No aneurysm, occlusion or significant stenosis. Posterior cerebral Arteries: Right: No aneurysm, occlusion or significant stenosis. Left: No aneurysm, occlusion or significant stenosis. Vertebral Arteries: Right: No aneurysm, occlusion or significant stenosis. Left: No aneurysm, occlusion or significant stenosis. Basilar Artery: No aneurysm, occlusion or significant stenosis. CTA Neck W: Common Carotid: Right: No aneurysm, occlusion or significant stenosis. Left: No aneurysm, occlusion or significant stenosis. External Carotid: Right: No aneurysm, occlusion or significant stenosis. Left: No aneurysm, occlusion or significant stenosis. Internal Carotid: Right: No aneurysm, occlusion or significant stenosis. Left: No aneurysm, occlusion or significant stenosis. Vertebral Artery: Right: No aneurysm, occlusion or significant stenosis. Left: No aneurysm, occlusion or significant stenosis. Lung Apices: Normal. Bones: Normal. Soft Tissues: Normal. IMPRESSION: 1. Left distal internal carotid artery stent, patent. Right aneurysm coil. No acute occlusion or si gnificant stenosis.. 2. Stable posterior right frontal infarct.. 3. Normal CTA examination of the neck. 4. Findings called to Mony Kelly after completion of the exam. RADIATION DOSE DELIVERED: 1,278.36mGy.cm Total DLP DATA REPOSITORY: All CT scans at this facility are submitted to the National Radiology Data Registry (NRDR) Dose Index Registry (DIR) with the [employer] (ACR). RADIATION OPTIMIZATION: All CT scans at this facility use at least one of these dose optimization te chniques: automated exposure control; mA and/or kV adjustment per patient size (includes targeted exa ms where dose is matched to clinical indication); or iterative reconstruction.
[2021-03-15 11:35] LABS: ALT 34 U/L (14-59); AST 33 U/L (15-37); Albumin 2.7 g/dL (3.4-5.0); Alkaline Phosphatase 116 U/L (46-116); Anion Gap 4.4 mmol/L (3-11); BUN 18 mg/dL (7-18); Bilirubin, Total 0.3 mg/dL (0.2-1.0); CO2 29.6 mmol/L (21.0-32.0); CREATININE 0.7 mg/dL (0.55-1.02); Calcium 8.4 mg/dL (8.5-10.1); Chloride 105 mmol/L (98-107); Glucose 145 mg/dL (74-106); Magnesium 1.7 mg/dL (1.8-2.4); Potassium 4.8 mmol/L (3.5-5.1); Sodium 139 mmol/L (136-145); Total Protein 7.5 g/dL (6.4-8.2)
[2021-03-15 11:36] LABS: Troponin I < 0.05 ng/mL (<0.06)
[2021-03-15] MEDS: Prochlorperazine 10 MG/2 ML VIAL IVP (11:36)
[2021-03-15] MEDS: diphenhydrAMINE 50 MG/ML VIAL 25 MG IVP (11:37)
[2021-03-15] MEDS: Normal Saline 500 ML IV (11:37)
[2021-03-15 12:02] LABS: Hemoglobin A1C 5.9 % (<5.7)
[2021-03-15] MEDS: Omnipaque 350 MG/ML 100 ML BTL IV (12:59)
[2021-03-15 13:23] LABS: Bilirubin Negative (Negative); Blood Negative (Negative); Clarity Clear (Clear); Glucose Negative (Negative); Ketones Negative (Negative); Leukocyte Esterase Negative (Negative); Nitrite Negative (Negative); Specific Gravity 1.025 (1.005-1.025); Urobilinogen 0.2 EU/dL (Up TO 0.2)
[2021-03-15 13:33] LABS: *AMPHETAMINES SCREEN URINE Negative (Negative); *BARBITURATES SCREEN URINE Negative (Negative); *BENZODIAZEPINES SCREEN URINE Negative (Negative); Cannabinoids THC Positive (Negative); Cocaine Screen,Urine Negative (Negative); METHADONE URINE SCREEN Positive (Negative); OPIATES URINE SCREEN Negative (Negative)
[2021-03-15 13:38] LABS: Tricyclic Antidepressants Positive (Negative)
--- NOTE | 2021-03-15 14:00 | DI.MRI_ITS ---
Exam(s) MR BRAIN WO EXAM: MR BRAIN WO CLINICAL HISTORY: CVA symptoms, left sided weakness TECHNIQUE: Multiplanar multisequence MRI of the brain was performed. COMPARISON: MR MR VENOUS BRAIN WO/W from 07/15/2019 MR MR VENOUS BRAIN WO/W from 07/15/2019 MR MR BRAIN WO from 07/15/2019 MR MR BRAIN WO from 07/15/[address] BRAIN NECK CTA from 03/15/[address] BRAIN NECK CTA from 03/15/2021 FINDINGS: The ventricular system is normal in appearance. There are signal abnormalities in right frontal lobe consistent with old infarct with localized encep halomalacia, cysts similar findings were seen on prior brain MRI of June 2019 although there has bee n some increase in size of the area of encephalomalacia. There are multiple areas of diffusion restriction in the brain, these are predominantly cortical in l ocation and most prominent in right frontoparietal region but also involving left parietal and right occipital temporal region. There are areas of microhemorrhage present in both hemispheres. These li e in bilateral parietal and left frontal lobes. The least the majority of these were present on the prior study. The orbital and temporal bone structures appear intact as does the pituitary. There is normal flow void in the [place] vasculature. IMPRESSION: Old right frontoparietal infarct, there are also multiple areas of acute or subacute infarction in zi th hemispheres as described above. Multiple microhemorrhages noted in both hemispheres, most of these or perhaps all these appear to hav e been present on prior study of June 2019. DATA REPOSITORY:
[2021-03-15] MEDS: LORazepam 2 MG/ML VIAL (15:33)
[2021-03-15 16:07] LABS: Troponin I < 0.05 ng/mL (<0.06)
--- NOTE | 2021-03-15 16:25 | DI.VRAD_ITS ---
PROCEDURE INFORMATION: Exam: MR Head Without Contrast Exam date and time: 03/15/2021 3:55 PM Age: 30 years old Clinical indication: Weakness, extremity and other: Stroke symptoms, left sided weakness; Prior surgery; Surgery date: 6+ months TECHNIQUE: Imaging protocol: MR of the head without contrast. COMPARISON: CT HEAD - STROKE PROTOCOL 03/15/2021 10:48 AM FINDINGS: Brain: Multifocal small regions of acute infarcts in the bilateral frontal lobes, bilateral parietal lobes and right occipitotemporal lobe demonstrating diffusion restriction and FLAIR hyperintense signal abnormality. Small foci of microhemorrhage in the bilateral frontal lobes and left parietal lobe. No confluent parenchymal hematoma. Localized mass effect on the adjacent brain parenchyma. No midline shift. Remote infarct with encephalomalacia of the posterolateral right frontal lobe, corresponding to abnormality seen on the prior head CT. Postoperative changes of prior coil embolization of the right internal carotid artery terminus and distal left ICA stent placement. Cerebral ventricles: No hydrocephalus. Bones/joints: No suspicious calvarial lesion. Paranasal sinuses: Mild ethmoid sinus disease. Mastoid air cells: No mastoid effusion. Orbital cavity: Unremarkable. Soft tissues: Unremarkable. IMPRESSION: 1. Multifocal small regions of acute infarcts in the bilateral frontal lobes, bilateral parietal lobes and right occipitotemporal lobe. 2. Small foci of microhemorrhage in the bilateral frontal lobes and left parietal lobe. No confluent parenchymal hematoma. 3. Remote infarct with encephalomalacia of the posterolateral right frontal lobe, corresponding to abnormality seen on the recent head CT. 4. Postoperative changes of prior coil embolization of the right internal carotid artery terminus and distal left ICA stent placement. COMMENTS: THIS REPORT CONTAINS FINDINGS THAT MAY BE CRITICAL TO PATIENT CARE. The findings were verbally communicated via telephone conference at 4:22 PM EST on 03/15/2021 with ALONSO LUCIO. The findings were acknowledged and understood. Dictated and Authenticated by: Jhoana Reddy MD. Ordering:RAHEL Sykes MD
--- NOTE | 2021-03-15 20:21 | W.MEDCONSULT ---
Date of service: 03/15/21 Time of Service: 20:21 Assessment and Plan Assessment and plan (1) TIA (transient ischemic attack): Status: Acute Assessment and plan: Unclear exactly what is occurring, but I think TIA generally is adequate description. Presence of bilateral infarcts suggests likelihood of either cardioembolic source, PFO (with unspecified source of clot), unspecified angiopathy, or hypercoaguable state. I would agree with continuing ASA for the moment, but advise prompt w/u to identify underlying pathology, including SIOBHAN with bubble study; hypercoag labs, and f/u with neuro, cardiology and vascular. Patient understands, and I have relayed these recommendations to ER. Patient advises again she will be leaving AMA. History of Present Illness History of Present Illness Chief Complaint: left hemianaesthesia Narrative: 30 female with h/o CVA. To my knowledge the etiology of this event has not been elucidated. Prior w/u has been of note for identifying unruptured right sided rodriguez aneurysm, which has been coiled (in process of which she also had left ICA stent placed as well). She also has known PFO. During visit in 2019 questions were raised as to possible vasculitis or hypercoaguable state as well, but I have no records of w/u for such and patient is not aware of any.. She is currently on ASA, but states she was previously on Plavix. She came in today with what she describes as 30 minutes of left sided numbness, affecting the face and then the arm and to a lesser degree as well the leg. Evaluation in the ER initially described a left pronator drift, but during course of stay she has been asymptomatic and the exam has normalized. CT head shows old right frontal infarct; MRI shows multiple bilateral frontoparietal infarcts and bilateral microhemorrhages. in addition to known prior frontal infarct. CTA shows known right sided ICA coil and left ICA stent. Case reviewed with [facility] neuro who advise continued ASA, cardiac ECHO and hypercoag w/u. I was asked to evaluate for admission. At this time patient states she feels fine and wishes to go home. [facility] Active Problem List (Updated 03/15/21 @ 20:40 by Johnnie Nesbitt MD) TIA (transient ischemic attack) (Acute) Bacterial pneumonia (Acute) Opioid dependence (Chronic) QT prolongation (Acute) Pneumonia due to COVID-19 virus (Acute) Allergic reaction (Acute) Medication overuse headache (Acute) Chronic headache (Acute) PFO (patent foramen ovale) (Chronic) Hypersomnia (Acute) Altered mental status (Acute) Abnormal movements (Acute) Right hemiparesis (Acute) Discharge planning issues (Acute) DVT prophylaxis (Acute) Back pain (Acute) Atypical chest pain (Acute) Acute focal neurological deficit (Acute) Stroke-like symptom (Acute) Acute right-sided muscle weakness (Acute) Acute CVA (cerebrovascular accident) (Acute) Status migrainosus (Acute) Stroke (Chronic) Dyspepsia (Acute) Acute febrile illness (Acute) Nephrolithiasis (Chronic) Scoliosis (Chronic) PTSD (post-traumatic stress disorder) (Chronic) History of intravenous drug abuse (Chronic) Depression (Chronic) Asthma (Chronic) Migraine headache with aura (Chronic ~2000) Hepatitis C infection (Chronic) Chronic daily headache (Chronic) Opioid dependence in controlled environment (Chronic) Medical History (Updated 03/15/21 @ 20:40 by Johnnie Nesbitt MD) ADD (attention deficit disorder) Aneurysm of ophthalmic artery L, s/p stent Atrial septal aneurysm Blood bacterial culture positive Chronic pain Chronic systolic CHF (congestive heart failure) EF 50% in 08/2018 - [facility] Community acquired bacterial pneumonia Fibromyalgia Intracranial aneurysm Seizures Spondylosis of lumbar spine SVT (supraventricular tachycardia) S/p ablation Therapeutic opioid induced constipation Surgical History H/O lithotripsy History of History of cerebral aneurysm repair (~2014) S/P cystoscopy with ureteral stent placement S/P tubal ligation Status post ablation operation for arrhythmia SVT Status post thoracic spinal fusion Family History Paternal Aunt Cerebral aneurysm Diabetes Hypertension Maternal Aunt Migraines Maternal Grandmother Heart disease Hypertension Migraines Paternal Grandmother Heart disease Diabetes Father Diabetes Hypertension Maternal Grandfather Diabetes Paternal Uncle Diabetes Hypertension Paternal Grandfather Hypertension Brother Migraines Mother Migraines Social History Smoking/Tobacco Use Status: Current every day Tobacco Type: cigarettes Quit status: considering quitting Smoking risk assessment performed?: Yes Alcohol Intake: former Drug use: Current Sobriety Substance use type: former substance user, marijuana, crack/cocaine, heroin, opiates and IV drugs Details: former heroin and cocaine user, 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 only drugs that she uses currently is marijuana Household members: other Details: lives w/ cousin's ex- and her children Number of Children: 3 Do you feel safe at home: Yes Do you feel safe in your relationship?: Yes History History 2 Para 3 Hx # Term Pregnancies 2 Multiple births Hx # Pregnancies Ectopic pregnancies AB induced Hx Number of Living Children 3 AB spontaneous Exam Narrative Exam Narrative: 115/74, 88, 36.8, 16, 96% RA. HEENT atraumatic; neck supple; lungs clear; heart RRR w/o MRG; abdomen soft and NT; extremities w/o edema, pulses 2+/=; neuro Ox3, lucid, PERRL, EOMI, no facial asymmetry, tongue protrudes midline; motor 5/5, no pronator drift; sensory intact light touch Results Last Vital Signs Temp 36.8 C 03/15/21 10:43 Pulse 88 03/15/21 18:00 Resp 16 03/15/21 18:10 BP 115/74 03/15/21 18:00 Pulse Ox 96 03/15/21 11:01 Labs Result diagrams: 03/15/21 11:04 03/15/21 11:04 Labs: Laboratory Results - last 24 hr 03/15/21 03/15/21 03/15/21 11:04 11:04 11:04 WBC 9.07 RBC 3.85 L Hgb 9.3 L Hct 31.6 L MCV 82.1 MCH 24.2 L MCHC 29.4 L RDW 16.7 H Plt Count 202 MPV 11.7 H Immature Gran % 0.2 Neutrophils % 72.9 Lymphocytes % 19.7 Monocytes % 5.1 Eosinophils % 1.9 Basophils % 0.2 Nucleated RBC % 0 Absolute Neutrophils 6.61 Absolute Lymphocytes 1.79 Absolute Monocytes 0.46 Absolute Eosinophils 0.17 Absolute Basophils 0.02 PT 10.3 INR 1.0 APTT 24.3 Sodium 139 Potassium 4.8 Chloride 105 Carbon Dioxide 29.6 Anion Gap 4.4 BUN 18 Creatinine 0.7 Estimated GFR/1.73 m2 >= 60.00 Glucose 145 H Hemoglobin A1c Calcium 8.4 L Magnesium 1.7 L Total Bilirubin 0.3 AST 33 ALT 34 Alkaline Phosphatase 116 Troponin I < 0.05 Total Protein 7.5 Albumin 2.7 L Urine Color Urine Clarity Urine pH Ur Specific [place] Urine Protein Urine Ketones Urine Blood Urine Nitrite Urine Bilirubin Urine Urobilinogen Ur Leukocyte Esterase Urine Glucose Urine Opiates Screen Urine Methadone Screen Ur Barbiturates Screen Ur Tricyclics Screen Ur Amphetamines Screen U Benzodiazepines Scrn Urine Cocaine Screen Ur THC Screen 03/15/21 03/15/21 03/15/21 11:04 13:10 13:10 WBC RBC Hgb Hct MCV MCH MCHC RDW Plt Count MPV Immature Gran % Neutrophils % Lymphocytes % Monocytes % Eosinophils % Basophils % Nucleated RBC % Absolute Neutrophils Absolute Lymphocytes Absolute Monocytes Absolute Eosinophils Absolute Basophils PT INR APTT Sodium Potassium Chloride Carbon Dioxide Anion Gap BUN Creatinine Estimated GFR/1.73 m2 Glucose Hemoglobin A1c 5.9 H Calcium Magnesium Total Bilirubin AST ALT Alkaline Phosphatase Troponin I Total Protein Albumin Urine Color Yellow Urine Clarity Clear Urine pH 7.0 Ur Specific [place] 1.025 Urine Protein Negative Urine Ketones Negative Urine Blood Negative Urine Nitrite Negative Urine Bilirubin Negative Urine Urobilinogen 0.2 Ur Leukocyte Esterase Negative Urine Glucose Negative Urine Opiates Screen Negative Urine Methadone Screen Positive A Ur Barbiturates Screen Negative Ur Tricyclics Screen Positive A Ur Amphetamines Screen Negative U Benzodiazepines Scrn Negative Urine Cocaine Screen Negative Ur THC Screen Positive A 03/15/21 15:35 WBC RBC Hgb Hct MCV MCH MCHC RDW Plt Count MPV Immature Gran % Neutrophils % Lymphocytes % Monocytes % Eosinophils % Basophils % Nucleated RBC % Absolute Neutrophils Absolute Lymphocytes Absolute Monocytes Absolute Eosinophils Absolute Basophils PT INR APTT Sodium Potassium Chloride Carbon Dioxide Anion Gap BUN Creatinine Estimated GFR/1.73 m2 Glucose Hemoglobin A1c Calcium Magnesium Total Bilirubin AST ALT Alkaline Phosphatase Troponin I < 0.05 Total Protein Albumin Urine Color Urine Clarity Urine pH Ur Specific [place] Urine Protein Urine Ketones Urine Blood Urine Nitrite Urine Bilirubin Urine Urobilinogen Ur Leukocyte Esterase Urine Glucose Urine Opiates Screen Urine Methadone Screen Ur Barbiturates Screen Ur Tricyclics Screen Ur Amphetamines Screen U Benzodiazepines Scrn Urine Cocaine Screen Ur THC Screen
--- NOTE | 2021-03-16 11:29 | NUR.NOTE ---
Nursing Note: [id number] lab called stating that there was an order for a COVID swab but they do not have a specimen. Due to no specimen they are going to cancel the order. Ivett Mancia
== END 2021-03-15 21:03 | disposition left against medical advice (07) ==
PROVIDERS: Physician Assistant; Emergency Provider Registered Nurse Emergency; PCP Nurse Practitioner Family
DX: I63.9 Cerebral infarction, unspecified (principal); G81.94 Hemiplegia, unspecified affecting left nondominant side; F11.20 Opioid dependence, uncomplicated; Z53.29 Procedure and treatment not carried out because of patient's decision for other reasons
CPT/HCPCS: 36415; 36416; 70496; 70498; 80053; 80307; 82962; 87635; 93005; 96361; 96374; 96375; 99283; 99285; 70450; 70551; 81003; 83036; 83735; 84484; 85025; 85610; 85730; 93010; J0780; J1200; J2060; J3490

== ENCOUNTER 2021-03-22 10:20 | Outpatient (REF) | payer MEDICAID, SELFPAY ==
[2021-03-23 10:19] LABS: Lyme Ab w Rflx to Lyme Confirm Negative (Negative)
[2021-03-24 17:52] LABS: Anaplasma phagocytophilum Negative (Negative); B. miyamotoi PCR Negative (Negative); Babesia divergens/MO-1 Negative (Negative); Babesia duncani Negative (Negative); Babesia microti Negative (Negative); Ehrlichia chaffeensis Negative (Negative); Ehrlichia ewingii/canis Negative (Negative); Ehrlichia muris eauclairensis Negative (Negative)
== END 2021-03-22 10:21 | disposition home or self-care (01) ==
LOC: LBN 10:20
PROVIDERS: PCP Nurse Practitioner Family; Visit Provider Nurse Practitioner Family
DX: R53.83 Other fatigue (principal)
CPT/HCPCS: 87798; 86618

== ENCOUNTER 2021-04-01 11:25 | Emergency (ER) | payer MEDICAID, SELFPAY ==
[2021-04-01] VITALS (61 sets, daily range): BP systolic 103–150; BP diastolic 56–103; PULSE 71–104; RESP 4–49; TEMP 36.8; O2SAT 85–98
--- NOTE | 2021-04-01 11:15 | RT.EKG_ITS ---
APPROVED REPORT Exam: Resting ECG Reason for Exam: possbile stroke Patient Location: E HR:94 bpm ECG Measurements Heart Rate 94 AXIS NM 135 P 47 QRSd 107 QRS -23 QT 366 T 8 QTc 459 Conclusion Sinus rhythm...normal P axis, V-rate 60- 99
--- NOTE | 2021-04-01 11:30 | DI.CT_ITS ---
Exam(s) CT HEAD - STROKE PROTOCOL EXAM: CT HEAD - STROKE PROTOCOL CLINICAL HISTORY: stroke symptoms. TECHNIQUE: Imaging Protocol: Axial computed tomography images with coronal and sagittal reformatted images were created and reviewed COMPARISON: CT CT HEAD - STROKE PROTOCOL from 03/15/[address] BRAIN NECK CTA from 03/15/2021 FINDINGS: There are no skull fractures nor fluid in the visualized paranasal sinuses. Again noted is a previously described area of abnormal hypodensity in the posterior right frontal lob e consistent with prior infarct. No hemorrhage at this level. No additional areas of infarct noted. There is an intracranial vascular stent again noted within the intra cavernous-supraclinoid left inte rnal carotid artery. Embolization coil noted within the right intracavernous internal carotid artery , the these findings unchanged. There is no evidence of intracranial hemorrhage, intra or extra-axial. Ventricles are not enlarged o r shifted and there is no blood within the ventricular system nor within basal cisterns. No new find ings in the cerebellar hemispheres nor within the olivia, midbrain, and thalami nor within the supraten torial white matter. IMPRESSION: No acute intracranial findings on this noninfused CT scan of the brain. No significant change compar ed to prior study of 03/15/2021. Right posterior frontal lobe infarct again noted, unchanged. Left intracavernous internal carotid artery stent appears unchanged in position and there also again noted right internal carotid artery coil material again noted. RADIATION DOSE DELIVERED: 838.1mGy.cm Total DLP DATA REPOSITORY: All CT scans at this facility are submitted to the National Radiology Data Registry (NRDR) Dose Index Registry (DIR) with the [employer] (ACR). RADIATION OPTIMIZATION: All CT scans at this facility use at least one of these dose optimization te chniques: automated exposure control; mA and/or kV adjustment per patient size (includes targeted exa ms where dose is matched to clinical indication); or iterative reconstruction.
--- NOTE | 2021-04-01 11:38 | W.ED.GENAD ---
Discharge Plan Disposition Patient Disposition: HOME Condition: Stable Discharge Details Clinical Impression: CVA (cerebrovascular accident) Primary Care Provider: Frances Sorensen ED Provider: Andres Garcia [place] Meds and New Rx's Prescriptions: New clopidogrel [Plavix] 75 mg tablet 75 mg PO DAILY Qty: 60 RF: 0 Continued olanzapine 5 mg tablet 10 mg PO DAILY RF: 0 benzonatate [Tessalon Perles] 100 mg capsule 100 mg PO TID PRN (Reason: cough) Qty: 14 RF: 0 doxycycline hyclate 100 mg capsule 100 mg PO BID Qty: 6 RF: 0 acetaminophen [Mapap Extra Strength] 500 MG tablet 1,000 mg PO Q6H 5 Days Qty: 60 RF: 0 paroxetine HCl [Paxil] 10 mg Tablet 20 mg PO HS RF: 0 albuterol sulfate 90 mcg/actuation Hfa Aerosol Inhaler 1 puff INHALATION Q6H PRNRF: 0 docusate sodium [Docusil] 100 mg capsule 100 mg PO DAILY Qty: 60 RF: 0 epinephrine 0.3 mg/0.3 mL auto-injector 0.3 mg IM ONCE Qty: 2 RF: 0 sennosides [Senna Laxative] 8.6 mg tablet 17.2 mg PO DAILY RF: 0 methadone 10 mg/5 mL Solution 120 mg PO DAILY RF: 0 fluticasone propion-salmeterol [Advair Diskus] 500-50 mcg/dose blister with device 1 inh INHALATION BID RF: 0 hydroxychloroquine 200 mg tablet 400 mg PO DAILY RF: 0 esomeprazole magnesium 20 mg capsule,delayed release(DR/EC) 20 mg PO DAILY RF: 0 polyethylene glycol Powder 17 pwd MISCELLANEOUS DAILY PRNRF: 0 Mavyret 100-40 mg Tablet 3 tab PO DAILY RF: 0 aspirin [Aspir-81] 81 mg Tablet,Delayed Release (Dr/Ec) 81 mg PO DAILY RF: 0 hydroxyzine HCl 25 mg Tablet 25 mg PO TID PRNRF: 0 lisinopril 5 mg Tablet 5 mg PO DAILY RF: 0 metoprolol succinate 25 mg Tablet Extended Release 24 Hr 50 mg PO DAILY RF: 0 naproxen 375 mg Tablet,Delayed Release (Dr/Ec) 375 mg PO TID PRNRF: 0 pregabalin [Lyrica] 75 mg Capsule See Rx Instructions .ROUTE .COMPLEX RF: 0 diphenhydramine HCl [Benadryl] 25 mg Capsule 25 mg PO QHS PRNRF: 0 cyclobenzaprine 5 mg Tablet 5 mg PO BID RF: 0 ascorbic acid (vitamin C) [Vitamin C] 500 mg Tablet 1,000 mg PO BID Qty: 120 RF: 0 cholecalciferol (vitamin D3) 25 mcg (1,000 unit) Tablet 2,000 units PO DAILY Qty: 60 RF: 0 Discharge Instructions Additional Instructions: Your images were reviewed by the neurology team at [facility] and at this time they do not feel you require hospitalization start taking aspirin 81mg daily along with plavix if you feel more ill, have severe worsening pain or fevers reutrn to the emergency department you should be contacted by neurology at [facility] if you don't hear back from them call them at [phone]. I spoke with Dr. Dylon carranza from neurology Medical Decision Making 30 yo female with hx of prior cva, and had mri done in February while in the ED showing areas of acute and subacute cva and microhemorrhages, and then left ama. She states the last 2 days she has had slurred speech and feels weak on the left side. Last known normal was 3 days ago. She denies fevers, chills, chest pain, dyspnea. She has a normal gait on arrival. 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 EOMI, perrl, flat nasolabial fold and smile assymetry on the left. Her left arm and leg drift but do not hit the bed. NIH of 4 on arrival (1 for facial palsy, 1 for left arm drift, 1 for left leg drift, 1 for dysarthria, very mild slurring of speech). Based on her exam suspect this is another cva with her recent mri showing acute and subacute cva, will obtain ct head and labs and reassess. labs and head ct unremarkable, her headache is significantly improved and she does feel better, her weakness seems to be improving, only has very mild drift in the left arm now. We do not have beds avaiable here and she is not interested in being transferred unless it's a local hospital or [facility] none of which at present have beds. We may have a bed later, in the mean time will obtian brain MRI MRI per Dr. Grimes is showing continued areas of infarction that are worsening on the left side, stable right sided micro hemorrhages. She remains stable, eating and drinking normally, will consult with neurology at [facility] Apparently phone systems were down at [facility] and is delaying the consult, patient stable and was able to ambulate to the bathroom Dr. Garza from neurology called back and the images were delayed being sent due to their phone systems being down, he is reviewing the images and will call back. Spoke with Dr. Garza who reviewed all her imaging from tonights visit and last visit in February and her history at [facility]. She is supposed to be on asa and plavix but has not been taking theses. He feels the mri today is consistent with subacute infarcts. He states she has had numerous cardiac workups and feels her cva is likely related to stenosis of the right cerebral vesels which she can f/u with them as an outpatient and doesn't need acute transfer or even admission. The neurology team at [facility] will reach out to her to arrange follow up. I informed her of this and she is quite happy as she did not want to stay anyway. She will start the aspirin and plavix and return precautions given Differential Diagnosis Differential Diagnosis: cva, tia, electrolyte abnormalities Medical Records Medical records reviewed: Yes I reviewed the patient's medical records. Imaging Data Radiologic Study: Attestation: I personally reviewed and interpreted this imaging study as follows: Imaging: CT Scan Radiologist's impression: IMPRESSION: No acute intracranial findings on this noninfused CT scan of the brain. No significant change compared to prior study of 03/15/2021. Right posterior frontal lobe infarct again noted, unchanged. Left intracavernous internal carotid artery stent appears unchanged in position and there also again noted right internal carotid artery coil material again noted. Radiologic Study #2: Attestation: I personally reviewed and interpreted this imaging study as follows: Imaging: MRI Radiologist's impression: COMPARISON: Compared to prior brain MRI scan performed 03/15/2021. CT scan earlier today as well as prior CT scans reviewed. FINDINGS: CEREBRAL PARENCHYMA: This patient has in intravascular stent in her left intracavernous internal carotid artery as well as coil material in the upper right intracavernous-supraclinoid ICA. Amount of restricted diffusion seen on DWI at cortical location in the right frontoparietal and right occipital temporal regions is further increasing when compared to 03/15/21. There is also corresponding increasing hypointensity at these locations on the ADC map, consistent with increasing infarct ischemia at these levels.. At the high right parietal regions of increased in signal abnormality there is also right gyral T1 signal at these levels, not previously present and most probably related to laminar necrosis. There is no blooming on the susceptibility weighted images at these levels. Micro hemorrhages in the opposite side of the brain on the SWI are again noted, unchanged. No new significant findings in the cerebellar hemispheres nor within the olivia, midbrain, and thalami. FLOW VOIDS: On T2 images the flow voids appear unchanged from serrato 06/13/2020. PARANASAL SINUSES: The visualized paranasal sinuses appear unremarkable. No obvious finding ORBITS: No obvious findings. IMPRESSION: As above. Further progression of multilevel right-sided ischemic infarcts when compared to 03/15/2021. Findings discussed by phone with the ER physician 04/01/2021 4:25 p.m. Lab Data Lab results reviewed: Yes I reviewed the patient's lab results. ECG Data Attestation: I personally reviewed and interpreted this ECG (s) as follows: Prior ECG tracings: available for review Interpretation: sinus rhythm, rate of 94, no acute st t wave ischemic findings HPI General Mode of arrival: ambulatory. Date/Time Provider Initiated Documentation: 04/01/21 11:25. Limitations to Documentation: no limitations. Information obtained by: patient. History of Present Illness 30 year old F presents to the emergency department with the chief complaint of left sided weakness, described as moderate, Patient reports no radiation. Patient started experiencing this day(s) (2) and it has been constant. No relieving factors improve symptom(s), No exacerbating factors reported . Patient notes headaches. Patient did receive the following treatments prior to arrival, none Related Data Home Medications Medication Instructions Recorded Confirmed acetaminophen [Mapap Extra 1,000 mg PO Q6H 5 Days #60 tab 11/19/17 03/22/21 Strength] albuterol sulfate 1 puff INHALATION Q6H PRN 02/03/18 03/22/21 paroxetine HCl [Paxil] 20 mg PO HS 02/03/18 03/22/21 docusate sodium [Docusil] 100 mg PO DAILY #60 cap 07/01/18 03/22/21 aspirin [Aspir-81] 81 mg PO DAILY 10/17/18 03/22/21 hydroxyzine HCl 25 mg PO TID PRN 10/17/18 03/22/21 lisinopril 5 mg PO DAILY 10/17/18 03/22/21 metoprolol succinate 50 mg PO DAILY 10/17/18 03/22/21 naproxen 375 mg PO TID PRN 10/17/18 03/22/21 pregabalin [Lyrica] See Rx Instructions .ROUTE .COMPLEX 05/15/19 03/22/21 cyclobenzaprine 5 mg PO BID 07/14/19 03/22/21 diphenhydramine HCl [Benadryl] 25 mg PO QHS PRN 07/14/19 03/22/21 epinephrine 0.3 mg IM ONCE #2 ea 11/25/20 03/22/21 benzonatate 100 mg capsule 100 mg PO TID PRN #14 cap 02/23/21 03/22/21 olanzapine 5 mg tablet 10 mg PO DAILY 02/23/21 03/22/21 ascorbic acid (vitamin C) [Vitamin 1,000 mg PO BID #120 tab 03/01/21 03/22/21 C] cholecalciferol (vitamin D3) 2,000 units PO DAILY #60 tab 03/01/21 03/22/21 Mavyret 3 tab PO DAILY 03/15/21 03/22/21 esomeprazole magnesium 20 mg PO DAILY 03/15/21 03/22/21 fluticasone propion-salmeterol 1 inh INHALATION BID 03/15/21 03/22/21 [Advair Diskus] hydroxychloroquine 400 mg PO DAILY 03/15/21 03/22/21 methadone 120 mg PO DAILY 03/15/21 03/22/21 polyethylene glycol 17 pwd MISCELLANEOUS DAILY PRN 03/15/21 03/22/21 sennosides [Senna Laxative] 17.2 mg PO DAILY 03/15/21 03/22/21 doxycycline hyclate 100 mg capsule 100 mg PO BID #6 cap 03/22/21 03/22/21 clopidogrel [Plavix] 75 mg PO DAILY #60 tab 04/01/21 Previous Rx's Medication Instructions Recorded acetaminophen [Mapap Extra 1,000 mg PO Q6H 5 Days #60 tab 11/19/17 Strength] docusate sodium [Docusil] 100 mg PO DAILY #60 cap 07/01/18 epinephrine 0.3 mg IM ONCE #2 ea 11/25/20 benzonatate 100 mg capsule 100 mg PO TID PRN #14 cap 02/23/21 ascorbic acid (vitamin C) [Vitamin 1,000 mg PO BID #120 tab 03/01/21 C] cholecalciferol (vitamin D3) 2,000 units PO DAILY #60 tab 03/01/21 doxycycline hyclate 100 mg capsule 100 mg PO BID #6 cap 03/22/21 clopidogrel [Plavix] 75 mg PO DAILY #60 tab 04/01/21 Allergies Allergy/AdvReac Type Severity Reaction Status Date / Time meperidine HCl [From Demerol] Allergy Severe Anaphylaxsi Verified 03/22/21 09:11 s venom-honey bee Allergy Severe anaphylaxis Verified 03/22/21 09:11 [bee venom (honey bee)] lithium AdvReac Mild NAUSEA Verified 03/22/21 09:11 sertraline HCl [From Zoloft] AdvReac Mild NIGHTMARES Verified 03/22/21 09:11 General Stated Complaint: CVA/TIA KALINA: 2 Review of Systems All systems reviewed & are unremarkable except as noted in HPI and below Constitutional Constitutional: Denies chills and Denies fever(s) Cardiovascular Cardiovascular: Denies chest pain and Denies dyspnea Respiratory Respiratory: Denies cough and Denies dyspnea Gastrointestinal Gastrointestinal: Denies abdominal pain, Denies nausea and Denies vomiting Musculoskeletal Musculoskeletal: Denies joint swelling Psychiatric Psychiatric: Denies depression PFSH All Active Problems (Updated 04/01/21 @ 19:29 by Andres Garcia MD) CVA (cerebrovascular accident) (Chronic) TIA (transient ischemic attack) (Acute) Bacterial pneumonia (Acute) Opioid dependence (Chronic) QT prolongation (Acute) Pneumonia due to COVID-19 virus (Acute) Allergic reaction (Acute) Medication overuse headache (Acute) Chronic headache (Acute) PFO (patent foramen ovale) (Chronic) Hypersomnia (Acute) Altered mental status (Acute) Abnormal movements (Acute) Right hemiparesis (Acute) Discharge planning issues (Acute) DVT prophylaxis (Acute) Back pain (Acute) Atypical chest pain (Acute) Acute focal neurological deficit (Acute) Stroke-like symptom (Acute) Acute right-sided muscle weakness (Acute) Acute CVA (cerebrovascular accident) (Acute) Status migrainosus (Acute) Stroke (Chronic) Dyspepsia (Acute) Acute febrile illness (Acute) Nephrolithiasis (Chronic) Scoliosis (Chronic) PTSD (post-traumatic stress disorder) (Chronic) History of intravenous drug abuse (Chronic) Depression (Chronic) Asthma (Chronic) Migraine headache with aura (Chronic ~2000) Hepatitis C infection (Chronic) Chronic daily headache (Chronic) Opioid dependence in controlled environment (Chronic) Medical History (Updated 04/01/21 @ 19:29 by Andres Garcia MD) ADD (attention deficit disorder) Aneurysm of ophthalmic artery L, s/p stent Atrial septal aneurysm Blood bacterial culture positive Chronic pain Chronic systolic CHF (congestive heart failure) EF 50% in 08/2018 - [facility] Community acquired bacterial pneumonia Fibromyalgia Intracranial aneurysm Seizures Spondylosis of lumbar spine SVT (supraventricular tachycardia) S/p ablation Therapeutic opioid induced constipation Surgical History H/O lithotripsy History of History of cerebral aneurysm repair (~2014) S/P cystoscopy with ureteral stent placement S/P tubal ligation Status post ablation operation for arrhythmia SVT Status post thoracic spinal fusion Family History Paternal Aunt Cerebral aneurysm Diabetes Hypertension Maternal Aunt Migraines Maternal Grandmother Heart disease Hypertension Migraines Paternal Grandmother Heart disease Diabetes Father Diabetes Hypertension Maternal Grandfather Diabetes Paternal Uncle Diabetes Hypertension Paternal Grandfather Hypertension Brother Migraines Mother Migraines Social History Smoking/Tobacco Use Status: Current every day Tobacco Type: cigarettes Quit status: considering quitting Smoking risk assessment performed?: Yes Alcohol Intake: former Drug use: Current Sobriety Substance use type: former substance user, marijuana, crack/cocaine, heroin, opiates and IV drugs Details: former heroin and cocaine user, 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 only drugs that she uses currently is marijuana Household members: other Details: lives w/ cousin's ex- and her children Number of Children: 3 Do you feel safe at home: Yes Do you feel safe in your relationship?: Yes History History 2 Para 3 Hx # Term Pregnancies 2 Multiple births Hx # Pregnancies Ectopic pregnancies AB induced Hx Number of Living Children 3 AB spontaneous Exam Const General: no acute distress Orientation: alert HENMT Head: normal to inspection Ears: external ears normal General nose exam: external nose normal Mouth: moist mucous membranes Eyes General: appearance normal, both eyes and all related structures Neck Neck: normal visual inspection Resp Effort & Inspection: normal respiratory effort and able to speak in complete sentences Cardio Rate: regular rate Skin General skin exam: no rashes or lesions noted Neuro General: patient alert and patient oriented x3 Extrem General: normal to inspection Psych Mental Status: mental status grossly normal Course Vital Signs Vital signs: Vital Signs Temperature 36.8 C 04/01/21 11:32 Pulse 89 04/01/21 11:32 Respiratory Rate 19 04/01/21 11:32 Blood Pressure 146/103 H 04/01/21 11:32 Pulse Oximetry 94 04/01/21 11:32 Temperature 36.8 C 04/01/21 11:32 Temperature Source Oral 04/01/21 11:32 Pulse 89 04/01/21 11:32 Respiratory Rate 19 04/01/21 11:32 Blood Pressure 146/103 H 04/01/21 11:32 Blood Pressure Position Supine 04/01/21 11:32 Pulse Oximetry 94 04/01/21 11:32 Oxygen Delivery Method Room Air 04/01/21 11:32 Oxygen Flow Rate 0 04/01/21 11:32 Pain Level 7 04/01/21 11:32 Lab/Test Results Lab/Test Results: 04/01/21 11:32 Blood Blood Culture - Pending 04/01/21 11:32 Blood Blood Culture - Pending
[2021-04-01 12:20] LABS: Source Nasal/Nares
[2021-04-01 12:22] LABS: Abs Immature Grans 0.03 10^3/uL (0.0-0.06); Absolute Basophil Count 0.02 10^3/uL (0.0-0.2); Absolute Eosinophil Count 0.21 10^3/uL (0.0-0.7); Absolute Lymphocyte Count 1.81 10^3/uL (1.2-3.4); Absolute Monocyte Count 0.54 10^3/uL (0.1-0.8); Absolute Neutrophil Count 4.05 10^3/uL (1.2-6.7); Basophils % 0.3; Eosinophils % 3.2; HCT 32.1 % (36.0-46.0); HGB 9.3 g/dL (11.2-15.7); Immature Grans % 0.5; Lymphocytes % 27.2; MCH 24.1 pg (27.0-33.0); MCV 83.2 fL (80-95); Monocytes % 8.1; Neutrophils % 60.7; Nucleated RBC 0 %; Platelet Count 248 10^3/uL (130-400); RBC 3.86 10^6/uL (3.93-5.22); RDW 17.2 % (11.7-14.6); RDW-SD 51.3 fL; WBC 6.66 10^3/uL (4.4-10.8)
[2021-04-01] MEDS: diphenhydrAMINE 50 MG/ML VIAL IVP (12:35)
[2021-04-01] MEDS: Prochlorperazine 10 MG/2 ML VIAL IVP (12:36)
[2021-04-01] MEDS: Normal Saline Flush 10 ML SYR IVP (12:37)
[2021-04-01] MEDS: Dexamethasone 10 MG/ML VIAL IVP (12:38)
[2021-04-01 12:45] LABS: ALT 82 U/L (14-59); AST 58 U/L (15-37); Albumin 2.7 g/dL (3.4-5.0); Alkaline Phosphatase 169 U/L (46-116); Anion Gap 3.6 mmol/L (3-11); BUN 20 mg/dL (7-18); Bilirubin, Total 0.2 mg/dL (0.2-1.0); CO2 32.4 mmol/L (21.0-32.0); CREATININE 0.8 mg/dL (0.55-1.02); Calcium 8.3 mg/dL (8.5-10.1); Chloride 103 mmol/L (98-107); Glucose 174 mg/dL (74-106); Lipase 34 U/L (73-393); Magnesium 1.9 mg/dL (1.8-2.4); Potassium 3.9 mmol/L (3.5-5.1); Sodium 139 mmol/L (136-145); TSH (W/Ref FT4) 0.22 uIU/mL (0.36-3.74); Total Protein 7.5 g/dL (6.4-8.2)
--- NOTE | 2021-04-01 12:45 | DI.MRI_ITS ---
Exam(s) MR BRAIN WO EXAM: MR BRAIN WO CLINICAL HISTORY: ?cva TECHNIQUE: Multiplanar multisequence MRI of the brain was performed. COMPARISON: Compared to prior brain MRI scan performed 03/15/2021. CT scan earlier today as well as prior CT scans reviewed. FINDINGS: CEREBRAL PARENCHYMA: This patient has in intravascular stent in her left intracavernous internal carotid artery as well as coil material in the upper right intracavernous-supraclinoid ICA. Amount of restricted diffusion seen on DWI at cortical location in the right frontoparietal and right occipital temporal regions is further increasing when compared to 03/15/21. There is also correspon ding increasing hypointensity at these locations on the ADC map, consistent with increasing infarct i schemia at these levels.. At the high right parietal regions of increased in signal abnormality ther e is also right gyral T1 signal at these levels, not previously present and most probably related to laminar necrosis. There is no blooming on the susceptibility weighted images at these levels. Micro hemorrhages in the opposite side of the brain on the SWI are again noted, unchanged. No new significant findings in the cerebellar hemispheres nor within the olivia, midbrain, and thalami. FLOW VOIDS: On T2 images the flow voids appear unchanged from serrato 06/13/2020. PARANASAL SINUSES: The visualized paranasal sinuses appear unremarkable. No obvious finding ORBITS: No obvious findings. IMPRESSION: As above. Further progression of multilevel right-sided ischemic infarcts when compared to 1. Findings discussed by phone with the ER physician 04/01/2021 4:25 p.m. DATA REPOSITORY:
[2021-04-01 12:48] LABS: ETHANOL BLOOD < 3.0 mg/dL (<10); Troponin I < 0.05 ng/mL (<0.06)
[2021-04-01 13:07] LABS: FREE T4 1.15 ng/dL (0.76-1.46)
--- NOTE | 2021-04-01 14:23 | NUR.NOTE ---
Nursing Note: Pt resting on stretcher, MRI questionnaire filled out, reports CUADRA slightly improved, continue to monitor. Pt aware of need for UA, not able to urinate at this time.
--- NOTE | 2021-04-01 14:41 | NUR.NOTE ---
Nursing Note: Pt ambulatory to BR to give urine sample, cont. to monitor.
[2021-04-01] MEDS: LORazepam 2 MG/ML VIAL 1 MG IVP (15:11)
--- NOTE | 2021-04-01 15:12 | NUR.NOTE ---
Nursing Note: Pt medicated w/IV ativan per order prior to MRI, to MRI w/tech via stretcher, states CUADRA had improved but was coming back, continue to monitor.
[2021-04-01 15:13] LABS: Bilirubin Negative (Negative); Blood Negative (Negative); Clarity Clear (Clear); Glucose Negative (Negative); Ketones Trace mg/dL (Negative); Leukocyte Esterase Negative (Negative); Nitrite Negative (Negative); Specific Gravity >= 1.030 (1.005-1.025)
[2021-04-01 16:03] LABS: *AMPHETAMINES SCREEN URINE Positive (Negative); *BARBITURATES SCREEN URINE Negative (Negative); *BENZODIAZEPINES SCREEN URINE Negative (Negative); Cannabinoids THC Positive (Negative); Cocaine Screen,Urine Negative (Negative); METHADONE URINE SCREEN Positive (Negative); OPIATES URINE SCREEN Negative (Negative)
[2021-04-01 16:10] LABS: Tricyclic Antidepressants Positive (Negative)
--- NOTE | 2021-04-01 17:22 | NUR.NOTE ---
Nursing Note:Pt ambulatory to bathroom, sitting up on side of stretcher to eat dinner, no new or increase in complaints, cont. to monitor.
--- NOTE | 2021-04-01 17:39 | NUR.NOTE ---
Nursing Note: Pt ate dinner and reports she had enough, states CUADRA not bad at this time, continue to monitor. Pt denies needs at this time.
[2021-04-01] MEDS: Acetaminophen 500 MG TAB 1000 MG PO (19:10)
[2021-04-01] MEDS: Clopidogrel 300 MG TAB PO (19:37)
[2021-04-01] MEDS: Aspirin 81 MG CHEW (19:41)
[2021-04-01 22:39] LABS: COVID-19 PCR Negative (Negative)
--- NOTE | 2021-04-02 09:47 | NUR.NOTE ---
Attempted to reach patient with Covid results, no answer.
== END 2021-04-01 19:55 | disposition home or self-care (01) ==
PROVIDERS: Emergency Provider Emergency Medicine; PCP Nurse Practitioner Family
DX: I63.9 Cerebral infarction, unspecified (principal); R47.81 Slurred speech; G81.94 Hemiplegia, unspecified affecting left nondominant side; Z91.14 Patient's other noncompliance with medication regimen; F17.210 Nicotine dependence, cigarettes, uncomplicated
CPT/HCPCS: 36415; 80053; 80307; 81025; 83690; 87040; 87635; 93005; 96374; 96375; 99285; 70450; 70551; 80320; 81003; 83735; 84439; 84443; 84484; 85025; 93010; J0780; J1100; J1200; J2060

== ENCOUNTER 2021-05-21 18:34 | Outpatient (REF) | payer MEDICAID, SELFPAY ==
[2021-05-23 12:14] LABS: COVID-19 RT-PCR UVMMC Result Negative (Negative)
== END 2021-05-21 18:35 | disposition home or self-care (01) ==
LOC: NCHCN 18:34
PROVIDERS: PCP Nurse Practitioner Family; Visit Provider Nurse Practitioner Family
DX: Z20.822 Contact with and (suspected) exposure to COVID-19 (principal); J31.0 Chronic rhinitis
CPT/HCPCS: U0003

== ENCOUNTER 2021-06-30 13:49 | Outpatient (REF) | payer MEDICAID, SELFPAY ==
[2021-07-01 13:50] LABS: COVID-19 RT-PCR UVMMC Result Negative (Negative)
== END 2021-06-30 13:50 | disposition home or self-care (01) ==
LOC: NCHCN 13:49
PROVIDERS: PCP Nurse Practitioner Family; Visit Provider Nurse Practitioner Family
DX: Z20.822 Contact with and (suspected) exposure to COVID-19 (principal); J31.0 Chronic rhinitis
CPT/HCPCS: U0003

== ENCOUNTER 2021-07-08 09:25 | Outpatient (CLI) | payer MEDICAID, SELFPAY ==
--- NOTE | 2021-07-08 06:00 | DI.RAD_ITS ---
Exam(s) XR PAIN CLINIC LUMBAR SP 2V EXAM: XR PAIN CLINIC LUMBAR SP 2V CLINICAL HISTORY: Dx: Lumbar Spondylosis TECHNIQUE: 2D and realtime digital imaging was performed. Radiologist not present. CONTRAST MATERIAL: None. COMPARISON: No exams were available for comparison FINDINGS: Fluoroscopy was provided for pain management therapy. Please refer to procedure report or details. Cumulative dose: Kar=51.0 mGy IMPRESSION: RADIATION DOSE DELIVERED:
[2021-07-08 09:46] VITALS: BP 133/96; PULSE 93; RESP 18; TEMP 37.1; O2SAT 96
[2021-07-08] MEDS: Omnipaque 240 MG/ML 50 ML BTL IJ (10:12)
--- NOTE | 2021-07-08 10:21 | PDOC.PAIN ---
Pain Clinic Procedure Note Procedure Note Procedure Note: Lumbar/Sacral Medial Branch Blocks Ghada Ervin has been referred to the [facility] for lumbar/sacral medial branch blocks. COMMENTS: I evaluated the patient in our clinic on 05/05/21. Her pre-procedure pain VAS was 8/10. Dx: Lumbosacral spondylosis without myelopathy Patient was interviewed and the medical record reviewed. There were no medical, pharmacologic, radiographic or other structural contraindications to attempting fluoroscopically guided local anesthetic lumbar/sacral medial branch blocks. Risks and expected side effects as well as potential benefit of the procedure were reviewed and voiced concerns addressed. The printed consent form was signed and witnessed. Standard time-out procedure was performed. Patient was placed in the prone position on the fluoroscopy table and automated blood pressure cuff and pulse oximeter applied. The skin entry points for approaching the anatomic target points of the segmental medial branches of bilateral L3-L5DR were identified with anfluoroscopy and marked. Following thorough Chlorhexadine preparation of the skin and draping, a 22 gauge spinal 5 needle was placed under fluoroscopic guidance down on to the target point for each respective segmental medial branch.Position was confirmed in A/P, oblique and lateral views with 0.25ml of omnipaque 240. At this point, 0.5ml of 0.5% Bupivacaine was injected at each sensory nerve. Vital signs were stable throughout the procedure and were as recorded in the docflowsheet by the nursing staff. Follow up plans and appointments were discussed and was instructed to keep careful note of how the usual pain was modified by these injections. Specifically was asked to keep a pain diary for the next 24 hours using a numeric pain scale of 0-10 and report these results at the follow-up visit. Post procedure instruction was given as documented in the nursing documentation and having met discharge criteria. Patient was discharged from the [facility]. Based on the medial branches blocked today, if the patient has adequate relief and we are able to proceed to radiofrequency ablation, the treatment should result in the denervation of the bilateral L4-L5 and [id number] JOINTS. We would expect to denervate a total of 4 facets during the radiofrequency ablation. COMMENTS: Post-procedure pain VAS was 0/10 Johnnie Morales DO, MPH [facility] CC: Frances Sorensen
[2021-07-08 10:27] VITALS: BP 141/103; PULSE 97; RESP 18; O2SAT 95
[2021-07-08] MEDS: Bupivacaine 0.5% Pres-Free 10 ML VIAL IJ (10:27)
== END 2021-07-08 09:26 | disposition home or self-care (01) ==
LOC: PC 09:27
PROVIDERS: PCP Nurse Practitioner Family; Visit Provider Preventive Medicine Occupational Medicine
DX: M47.817 Spondylosis without myelopathy or radiculopathy, lumbosacral region (principal)
CPT/HCPCS: 64493; 64494; 72100; Q9967

== ENCOUNTER 2021-07-09 00:10 | Outpatient (CLI) | payer MEDICAID, SELFPAY ==
--- NOTE | 2021-07-09 10:10 | DI.RAD_ITS ---
Exam(s) XR SHOULDER RT COMPLETE 2+V EXAM: XR SHOULDER RT COMPLETE 2+V CLINICAL HISTORY: RT SHOULDER JOINT PAIN,M25.511 TECHNIQUE: COMPARISON: No exams were available for comparison FINDINGS: Five views were obtained. Cartilaginous joint space of the glenohumeral joint appears well maintaine d. No bony or soft tissue abnormality seen. There are Tejeda rods in place in thoracic spine. IMPRESSION: RADIATION DOSE DELIVERED: Total DLP
== END 2021-07-09 00:30 ==
PROVIDERS: PCP Nurse Practitioner Family; Visit Provider Nurse Practitioner Family
DX: M25.511 Pain in right shoulder (principal)
CPT/HCPCS: 73030

== ENCOUNTER 2021-07-28 08:53 | Observation (INO) | payer MEDICAID, SELFPAY ==
[2021-07-28] VITALS (36 sets, daily range): BP systolic 100–152; BP diastolic 58–86; PULSE 75–97; RESP 6–25; TEMP 36.5–36.6; O2SAT 76–98
--- NOTE | 2021-07-28 08:45 | RT.EKG_ITS ---
APPROVED REPORT Exam: Resting ECG Reason for Exam: SOB? Patient Location: E HR:76 bpm ECG Measurements Heart Rate 76 AXIS KS 148 P -14 QRSd 110 QRS -16 QT 411 T 4 QTc 463 Conclusion Sinus rhythm...normal P axis, V-rate 60- 99
--- NOTE | 2021-07-28 09:15 | DI.CT_ITS ---
Exam(s) CT BRAIN NECK CTA EXAM: CT BRAIN NECK CTA CLINICAL HISTORY: left sided weakness. TECHNIQUE: Imaging Protocol: Axial CT angiography was performed with multi-slice acquisition and mu lti-planar and/or 3D reconstructions. CONTRAST MATERIAL: Intravenous: Omnipaque 350 Contrast volume:structured data in ml COMPARISON: CT CT BRAIN NECK CTA from 03/15/2021 MR MR BRAIN WO from 03/15/[address] HEAD - STROKE PROTOCOL from 04/01/2021 FINDINGS: CTA Neck W: Aortic arch anatomy: The aortic arch anatomy is conventional. No significant stenosis at the origin t he great vessels off the aortic arch. Anterior circulation: Both common carotid arteries ascend with normal luminal diameters and there is no evidence of signifi cant atherosclerotic disease/narrowing at the carotid bifurcations and proximal internal carotid ryan shanta on either side. Both internal carotid arteries are demonstrated to be nicely patent neck and sk ull base-carotid canals. Posterior circulation: Both vertebral arteries originated conventional fashion off subclavian arteries without significant s tenosis at their origins and both vertebral arteries ascend with equal normal luminal diameters in th e foramen transverse area no evidence of intraluminal thrombus nor dissection. At the skull base bot h vertebral arteries contribute to the formation of the patent basilar artery. CTA Brain W: Anterior circulation: There is an intracranial vascular stent again noted within the intracavernous-supraclinoid left inter nal carotid artery. Embolization coil also noted within the right intracavernous internal carotid ar boyd, these findings unchanged. Both A1 segments are opacified as are the anterior cerebral arteries and there is no aneurysm at the level of the anterior communicating artery. Both middle cerebral arteries appear patent-unchanged. Posterior circulation: Basilar artery is sends in the midline with normal luminal diameter. Distally gives off superior cer ebellar arteries and above this level terminates as patent bilateral posterior cerebral arteries. Th ere is no aneurysm of the tip of the basilar artery CT BRAIN: There is no evidence of intracranial hemorrhage, mass effect, or shift of midline structures. There are no extra-axial fluid collections. Ventricles are not enlarged or shifted. There are no ring enh ancing lesions in the brain and no abnormal meningeal enhancement. Area of prior infarct in the right frontal lobe again noted, unchanged. No new infarct areas evident . There are no ring enhancing lesions in the brain. No new abnormal meningeal enhancement. IMPRESSION: 1. Findings appear unchanged from 03/15/2021. Again noted is an endovascular stent in the intracavern ous left internal carotid artery and right sided aneurysm coil material. 2. No evidence of acute occlusion or significant stenosis. 3. Stable posterior right frontal infarct. No new CT a findings in the neck. Called by myself to ER provider RADIATION DOSE DELIVERED: 2,351.6mGy.cm Total DLP DATA REPOSITORY: All CT scans at this facility are submitted to the National Radiology Data Registry (NRDR) Dose Index Registry (DIR) with the [employer] (ACR). RADIATION OPTIMIZATION: All CT scans at this facility use at least one of these dose optimization te chniques: automated exposure control; mA and/or kV adjustment per patient size (includes targeted exa ms where dose is matched to clinical indication); or iterative reconstruction.
[2021-07-28 09:26] LABS: Abs Immature Grans 0.04 10^3/uL (0.0-0.06); Absolute Basophil Count 0.02 10^3/uL (0.0-0.2); Absolute Eosinophil Count 0.27 10^3/uL (0.0-0.7); Absolute Lymphocyte Count 2.67 10^3/uL (1.2-3.4); Absolute Monocyte Count 0.74 10^3/uL (0.1-0.8); Absolute Neutrophil Count 5.77 10^3/uL (1.2-6.7); Basophils % 0.2; Eosinophils % 2.8; HCT 34.4 % (36.0-46.0); HGB 9.9 g/dL (11.2-15.7); Immature Grans % 0.4; Lymphocytes % 28.1; MCH 24.3 pg (27.0-33.0); MCHC 28.8 % (32.0-36.0); MCV 84.3 fL (80-95); MPV 10.3 fL (8.0-11.0); Monocytes % 7.8; Neutrophils % 60.7; Nucleated RBC 0 %; Platelet Count 277 10^3/uL (130-400); RBC 4.08 10^6/uL (3.93-5.22); RDW 16.2 % (11.7-14.6); RDW-SD 49.8 fL; WBC 9.51 10^3/uL (4.4-10.8)
--- NOTE | 2021-07-28 09:27 | ED.GENADUL_ITS ---
Discharge Plan Disposition Patient Disposition: [facility] INPATIENT Condition: Serious Discharge Details Clinical Impression: Nodule of right lobe of thyroid gland, Brain TIA, Altered mental status Primary Care Provider: Frances Sorensen ED Provider: Иван Islas Home Meds and New Rx's Prescriptions: No Action Vyvanse 40 mg capsule 50 mg PO DAILY 0RF olanzapine 5 mg tablet 15 mg PO DAILY 0RF paroxetine HCl [Paxil] 10 mg Tablet 20 mg PO HS 0RF albuterol sulfate 90 mcg/actuation Hfa Aerosol Inhaler 2 puff INHALATION Q4H PRN0RF docusate sodium [Docusil] 100 mg capsule 100 mg PO DAILY Qty: 60 0RF sennosides [Senna Laxative] 8.6 mg tablet 17.2 mg PO DAILY 0RF Label Comments: TAKE TWO TABLETS BY MOUTH EVERY DAY methadone 10 mg/5 mL Solution 90 mg PO DAILY 0RF hydroxychloroquine 200 mg tablet 400 mg PO DAILY 0RF Label Comments: TAKE TWO TABLETS BY MOUTH EVERY DAY esomeprazole magnesium 20 mg capsule,delayed release(DR/EC) 20 mg PO DAILY 0RF Label Comments: TAKE ONE CAPSULE BY MOUTH EVERY DAY polyethylene glycol Powder 17 pwd MISCELLANEOUS DAILY PRN0RF clopidogrel [Plavix] 75 mg tablet 75 mg PO DAILY Qty: 60 0RF aspirin [Aspir-81] 81 mg Tablet,Delayed Release (Dr/Ec) 81 mg PO DAILY 0RF hydroxyzine HCl 25 mg Tablet 25 mg PO TID PRN0RF lisinopril 5 mg Tablet 5 mg PO DAILY 0RF metoprolol succinate 25 mg Tablet Extended Release 24 Hr 50 mg PO DAILY 0RF naproxen 375 mg Tablet,Delayed Release (Dr/Ec) 375 mg PO BID 0RF pregabalin [Lyrica] 75 mg Capsule 150 mg PO BID 0RF diphenhydramine HCl [Benadryl] 25 mg Capsule 25 mg PO QHS PRN0RF Rx Instructions: Pt took 50 mg tonight cyclobenzaprine 5 mg Tablet 5 mg PO BID 0RF ascorbic acid (vitamin C) [Vitamin C] 500 mg Tablet 1,000 mg PO BID Qty: 120 0RF cholecalciferol (vitamin D3) 25 mcg (1,000 unit) Tablet 2,000 units PO DAILY Qty: 60 0RF fluticasone propion-salmeterol [Advair Diskus] 500-50 mcg/dose blister with device 1 inh INHALATION BID 0RF diclofenac sodium 1 % gel 1 applic TOPICAL QID 0RF Label Comments: APPLY A SMALL AMOUNT TO AFFECTED AREA FOUR TIMES A DAY NEEDED - MAX TOTAL BODY DOSE ( ALL COMBINED AREAS) 32 GRAMS PER DAY ibuprofen 400 mg Tablet 400 - 800 mg PO Q8H PRN0RF acetaminophen 500 MG tablet 650 mg PO Q6H 0RF epinephrine 0.3 mg/0.3 mL auto-injector 0.3 mg IM ONCE PRN0RF Rx Instructions: as a single dose; may repeat once Medical Decision Making 930 --30-year-old female with history of prior CVA, cerebral aneurysm repair, PFO, opioid use disorder, on methadone, here with left-sided weakness that started yesterday morning upon waking and associated headache and slurred speech. NIH stroke scale 6. Concern for acute CVA. EKG was reviewed and interpreted by me: Sinus rhythm 76 bpm, T wave inversion noted in lead III, no STEMI, nondiagnostic. Plan to proceed to stat CT head and CTA of the brain and neck. Patient is somewhat somnolent and intermittently hypoxic tray in the 80s. She has clear lungs bilaterally and no chest pain. Will place nasal cannula oxygen and continue to monitor. Suspect recent methadone dosing may be contributing to somnolence. -- CTA and CT head interpreted by radiology: 1. Findings appear unchanged from 03/15/2021. Again noted is an endovascular stent in the intracavernous left internal carotid artery and right sided aneurysm coil material. 2.? No evidence of acute occlusion or significant stenosis. 3. ? Stable posterior right frontal infarct. -- CT chest PE protocol interpreted by radiology: 1. No evidence of acute pulmonary emboli.? No evidence of pulmonary infarction.No pleural effusions. 2. Mild cardiomegaly.? No pericardial effusion. 3. Right thyroid lobe nodule is noted.? This can be further studied with ultrasound. 1050 -- I called [facility] to request transfer. Will send images for review. Awaiting call back. 1130 -- [facility] has no capacity to accept. Will speak with hospitalist. 1140 -- I spoke with hospitalist, recommending discussion with [facility] transfer center contacted. -- I spoke with Dr. Richards ([facility] neurology) and discussed ED presentation course including diagnostics. She does not feel emergent intervention is necessary and recommends continued work-up including MRI of the brain. 1522 --MRI of brain interpreted by radiology: No acute changes. IMPRESSION: Findings as above but without evidence of new ischemic event(s) when compared to the most recent MRI of 04/01/2021.? Also no evidence of new intracranial hemorrhage. Patient was reassessed and continues to exhibit somnolence. She does arouse to verbal stimuli and is somewhat confused. She is now moving her left lower extremity and left upper extremity with greater strength than on initial presentation. Plan for admission to hospitalist service for continued work-up to include likely EEG and neurology consultation. I spoke with Dr. Hdez and discussed ED presentation and course, she will admit the patient. I spoke again with Dr. Rosas Carpenter I discussed MRI results. She does recommend EEG given concern for potential Francisco's paralysis. She also recommends continuing antiplatelet therapy. She did note she was available for phone consultation. MRI to be sent for review. HPI General Mode of arrival: EMS . Date/Time Provider Initiated Documentation: 07/28/21 09:14 . Limitations to Documentation: no limitations . Information obtained by: patient . HPI Narrative: 30-year-old female with multiple medical problems including history of prior CVA, PFO, opioid use disorder, now on methadone, hepatitis C infection, asthma, smoker, presents today by EMS with left-sided weakness and slurred speech. Symptoms started yesterday morning upon waking. Symptoms are moderate. No modifiers. She has associated headache. Patient also has associated fatigue. She does note taking her methadone this morning. Patient was seen at primary care clinic this morning and recommended that she seek treatment in the emergency department. Related Data Home Medications Medication Instructions Recorded Confirmed albuterol sulfate 90 mcg/actuation 2 puff INHALATION Q4H PRN 02/03/18 07/28/21 aerosol inhaler paroxetine HCl 10 mg tablet (Paxil) 20 mg PO HS 02/03/18 07/28/21 docusate sodium 100 mg capsule 100 mg PO DAILY #60 cap 07/01/18 07/28/21 (Docusil) aspirin 81 mg tablet,delayed 81 mg PO DAILY 10/17/18 07/28/21 release (Aspir-) hydroxyzine HCl 25 mg tablet 25 mg PO TID PRN 10/17/18 07/28/21 lisinopril 5 mg tablet 5 mg PO DAILY 10/17/18 07/28/21 metoprolol succinate 25 mg 50 mg PO DAILY 10/17/18 07/28/21 tablet,extended release 24 hr naproxen 375 mg tablet,delayed 375 mg PO BID 10/17/18 07/28/21 release pregabalin 75 mg capsule (Lyrica) 150 mg PO BID 05/15/19 07/28/21 cyclobenzaprine 5 mg tablet 5 mg PO BID 07/14/19 07/28/21 diphenhydramine HCl 25 mg capsule 25 mg PO QHS PRN 07/14/19 07/08/21 (Benadryl) olanzapine 5 mg tablet 15 mg PO DAILY 02/23/21 07/28/21 ascorbic acid (vitamin C) 500 mg 1,000 mg PO BID #120 tab 03/01/21 07/08/21 tablet (Vitamin C) cholecalciferol (vitamin D3) 25 2,000 units PO DAILY #60 tab 03/01/21 07/08/21 mcg (1,000 unit) tablet esomeprazole magnesium 20 mg 20 mg PO DAILY 03/15/21 07/08/21 capsule,delayed release hydroxychloroquine 200 mg tablet 400 mg PO DAILY 03/15/21 07/28/21 methadone 10 mg/5 mL oral solution 90 mg PO DAILY 03/15/21 07/28/21 polyethylene glycol 17 pwd MISCELLANEOUS DAILY PRN 03/15/21 07/28/21 sennosides 8.6 mg tablet (Senna 17.2 mg PO DAILY 03/15/21 07/28/21 Laxative) clopidogrel 75 mg tablet (Plavix) 75 mg PO DAILY #60 tab 04/01/21 07/28/21 lisdexamfetamine 40 mg capsule 50 mg PO DAILY 05/05/21 07/28/21 (Vyvanse) acetaminophen 500 mg tablet 650 mg PO Q6H 07/28/21 07/28/21 diclofenac sodium 1 % topical gel 1 applic TOPICAL QID 07/28/21 07/28/21 epinephrine 0.3 mg/0.3 mL 0.3 mg IM ONCE PRN 07/28/21 07/28/21 injection, auto-injector fluticasone 500 mcg-salmeterol 50 1 inh INHALATION BID 07/28/21 07/28/21 mcg/dose blistr powdr for inhalation (Advair Diskus) ibuprofen 400 mg tablet 400 - 800 mg PO Q8H PRN 07/28/21 07/28/21 Previous Rx's Medication Instructions Recorded docusate sodium 100 mg capsule 100 mg PO DAILY #60 cap 07/01/18 (Docusil) ascorbic acid (vitamin C) 500 mg 1,000 mg PO BID #120 tab 03/01/21 tablet (Vitamin C) cholecalciferol (vitamin D3) 25 2,000 units PO DAILY #60 tab 03/01/21 mcg (1,000 unit) tablet clopidogrel 75 mg tablet (Plavix) 75 mg PO DAILY #60 tab 04/01/21 Allergies Allergy/AdvReac Type Severity Reaction Status Date / Time meperidine HCl [From Demerol] Allergy Severe Anaphylaxsi Verified 07/28/21 09:54 s venom-honey bee Allergy Severe anaphylaxis Verified 07/28/21 09:54 [bee venom (honey bee)] lithium AdvReac Mild NAUSEA Verified 07/28/21 09:54 sertraline HCl [From Zoloft] AdvReac Mild NIGHTMARES Verified 07/28/21 09:54 General Stated Complaint: CVA/TIA KALINA: 2 PFSH All Active Problems (Updated 07/28/21 @ 16:06 by Иван Islas MD) Nodule of right lobe of thyroid gland (Acute) Brain TIA (Acute) Altered mental status (Acute) Lumbosacral spondylosis without myelopathy (Acute) CVA (cerebrovascular accident) (Chronic) TIA (transient ischemic attack) (Acute) Bacterial pneumonia (Acute) Opioid dependence (Chronic) QT prolongation (Acute) Pneumonia due to COVID-19 virus (Acute) Allergic reaction (Acute) Medication overuse headache (Acute) Chronic headache (Acute) PFO (patent foramen ovale) (Chronic) Hypersomnia (Acute) Altered mental status (Acute) Abnormal movements (Acute) Right hemiparesis (Acute) Discharge planning issues (Acute) DVT prophylaxis (Acute) Back pain (Acute) Atypical chest pain (Acute) Acute focal neurological deficit (Acute) Stroke-like symptom (Acute) Acute right-sided muscle weakness (Acute) Acute CVA (cerebrovascular accident) (Acute) Status migrainosus (Acute) Stroke (Chronic) Dyspepsia (Acute) Acute febrile illness (Acute) Nephrolithiasis (Chronic) Scoliosis (Chronic) PTSD (post-traumatic stress disorder) (Chronic) History of intravenous drug abuse (Chronic) Depression (Chronic) Asthma (Chronic) Migraine headache with aura (Chronic ~2000) Hepatitis C infection (Chronic) Chronic daily headache (Chronic) Opioid dependence in controlled environment (Chronic) Medical History (Updated 07/28/21 @ 16:06 by Иван Islas MD) ADD (attention deficit disorder) Aneurysm of ophthalmic artery L, s/p stent Atrial septal aneurysm Blood bacterial culture positive Chronic pain Chronic systolic CHF (congestive heart failure) EF 50% in 08/2018 - [facility] Community acquired bacterial pneumonia Fibromyalgia Intracranial aneurysm Seizures Spondylosis of lumbar spine SVT (supraventricular tachycardia) S/p ablation Therapeutic opioid induced constipation Surgical History H/O lithotripsy History of History of cerebral aneurysm repair (~2014) S/P cystoscopy with ureteral stent placement S/P tubal ligation Status post ablation operation for arrhythmia SVT Status post thoracic spinal fusion Family History Paternal Aunt Cerebral aneurysm Diabetes Hypertension Maternal Aunt Migraines Maternal Grandmother Heart disease Hypertension Migraines Paternal Grandmother Heart disease Diabetes Father Diabetes Hypertension Maternal Grandfather Diabetes Paternal Uncle Diabetes Hypertension Paternal Grandfather Hypertension Brother Migraines Mother Migraines Social History Smoking/Tobacco Use Status: Current every day Tobacco Type: cigarettes Quit status: considering quitting Smoking risk assessment performed?: Yes (0.5 ppd) Alcohol Intake: former Details: pt reports social use Drug use: Current Sobriety Substance use type: former substance user, marijuana, crack/cocaine, heroin, opiates and IV drugs Details: former heroin and cocaine user, 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 only drugs that she uses currently is marijuana couple hits a day Household members: none Number of Children: 3 Do you feel safe at home: Yes Do you feel safe in your relationship?: Yes History History 2 Para 3 Hx # Term Pregnancies 2 Multiple births Hx # Pregnancies Ectopic pregnancies AB induced Hx Number of Living Children 3 AB spontaneous Exam Const General: cooperative, well developed and not diaphoretic Nutritional Appearance: obese Orientation: oriented x3 and other (fatigued) [facility] Head: normocephalic and atraumatic Mouth: mucous membranes dry Eyes Visual Hay: normal visual hay by confrontation Conjunctivae: normal conjunctivae Sclera: normal sclerae Pupils: pupil size bilaterally 3 EOM: EOM intact bilaterally Neck Neck: trachea midline and supple Resp Auscultation: clear to auscultation bilaterally, no rales, no rhonchi and no wheezes Cardio Rate: regular rate and not tachycardic Rhythm: regular rhythm GI Palpation: soft, not firm, no guarding, no masses, not rigid and nontender Skin General skin exam: no rashes or lesions noted Neuro General: patient oriented x3 and tone normal Speech: abnormal speech slurred Motor: strength abnormal (2/5 LLE, 3/5 LUE, left facial droop) Sensory Exam: no sensory deficits noted Other: NIH stroke scale (9:15a): 6 Extrem General: no edema Psych Appearance: grossly normal Course Vital Signs Vital signs: Vital Signs Temperature 36.5 C 07/28/21 08:53 Pulse 80 07/28/21 08:53 Respiratory Rate 10 L 07/28/21 08:53 Blood Pressure 141/70 H 07/28/21 08:53 Pulse Oximetry 97 07/28/21 08:53 Temperature 36.5 C 07/28/21 08:53 Temperature Source Skin 07/28/21 08:53 Pulse 80 07/28/21 08:53 Respiratory Rate 10 L 07/28/21 08:53 Respiratory Effort 07/28/21 09:13 Blood Pressure 141/70 H 07/28/21 08:53 Pulse Oximetry 97 07/28/21 08:53 Oxygen Delivery Method Room Air 07/28/21 08:53 Oxygen Flow Rate 0 07/28/21 08:53 Pain Level 7 07/28/21 08:53 Comment 07/28/21 08:53 Lab/Test Results Lab/Test Results: Laboratory Tests Range/Units 07/28/21 09:15 WBC (4.4-10.8) 10^3/uL 9.51 RBC (3.93-5.22) 10^6/uL 4.08 Hgb (11.2-15.7) g/dL 9.9 L Hct (36.0-46.0) % 34.4 L MCV (80-95) fL 84.3 MCH (27.0-33.0) pg 24.3 L MCHC (32.0-36.0) % 28.8 L RDW (11.7-14.6) % 16.2 H Plt Count (130-400) 10^3/uL 277 MPV (8.0-11.0) fL 10.3 Immature Gran % 0.4 Neutrophils % 60.7 Lymphocytes % 28.1 Monocytes % 7.8 Eosinophils % 2.8 Basophils % 0.2 Nucleated RBC % % 0 Absolute Neutrophils (1.2-6.7) 10^3/uL 5.77 Absolute Lymphocytes (1.2-3.4) 10^3/uL 2.67 Absolute Monocytes (0.1-0.8) 10^3/uL 0.74 Absolute Eosinophils (0.0-0.7) 10^3/uL 0.27 Absolute Basophils (0.0-0.2) 10^3/uL 0.02
--- NOTE | 2021-07-28 09:30 | DI.CT_ITS ---
Exam(s) CT CHEST PE CTA EXAM: CT CHEST PE CTA CLINICAL HISTORY: shortness of breath, hypoxia. TECHNIQUE: Imaging Protocol: CT angiography of the chest was performed using pulmonary embolus estelita col. Multi planar reconstructions were performed. CONTRAST MATERIAL: Intravenous: Omnipaque 350 Contrast volume: 100 cc COMPARISON: CT CT BRAIN NECK CTA from 07/28/2021 FINDINGS: CHEST: PULMONARY ARTERIES: There are no obvious intraluminal filling defects to suggest acute pulmonary embo li. LUNGS: There are no confluent infiltrates nor evidence of pulmonary infarction.. There are no pleural effusions. There are no significant focal findings in the trachea and mainstem bronchi. MEDIASTINUM: There is no hilar nor mediastinal adenopathy. There appears to be a nodule in the right thyroid lobe. CARDIAC: Heart size minimally prominent. No pericardial effusion.Caliber of the thoracic aorta is wi thin normal limits. No evidence of dissection. There there is no significant shift of the interventr icular septum. PARTIALLY VISUALIZED UPPERMOST ABDOMEN: Hiatal hernia noted OSSEOUS: Scoliosis and Tejeda rods noted. No significant osseous lesions. IMPRESSION: 1. No evidence of acute pulmonary emboli. No evidence of pulmonary infarction.No pleural effusions. 2. Mild cardiomegaly. No pericardial effusion. 3. Right thyroid lobe nodule is noted. This can be further studied with ultrasound. Report called myself to ER provider RADIATION DOSE DELIVERED: 201.46 mGy.cm Total DLP DATA REPOSITORY: All CT scans at this facility are submitted to the National Radiology Data Registry (NRDR) Dose Index Registry (DIR) with the [employer] (ACR). RADIATION OPTIMIZATION: All CT scans at this facility use at least one of these dose optimization te chniques: automated exposure control; mA and/or kV adjustment per patient size (includes targeted exa ms where dose is matched to clinical indication); or iterative reconstruction.
[2021-07-28 09:45] LABS: ALT 35 U/L (14-59); AST 27 U/L (15-37); Albumin 2.9 g/dL (3.4-5.0); Alkaline Phosphatase 184 U/L (46-116); Anion Gap 2.9 mmol/L (3-11); BUN 21 mg/dL (7-18); Bilirubin, Total 0.2 mg/dL (0.2-1.0); CO2 33.1 mmol/L (21.0-32.0); CREATININE 0.7 mg/dL (0.55-1.02); Calcium 7.9 mg/dL (8.5-10.1); Chloride 105 mmol/L (98-107); Glucose 109 mg/dL (74-106); Potassium 4.1 mmol/L (3.5-5.1); Sodium 141 mmol/L (136-145); Total Protein 7.9 g/dL (6.4-8.2); Troponin I < 50 ng/L (<or=60)
[2021-07-28] MEDS: Lactated Ringers 500 ML IV (10:20)
[2021-07-28 10:25] LABS: Source Nasal/Nares
[2021-07-28] MEDS: Omnipaque 350 MG/ML 100 ML BTL IJ (10:26)
[2021-07-28 11:24] LABS: Bilirubin Negative (Negative); Blood Negative (Negative); Clarity Clear (Clear); Glucose Negative (Negative); Ketones Negative (Negative); Leukocyte Esterase Negative (Negative); Nitrite Positive (Negative); Urobilinogen 0.2 EU/dL (Up TO 0.2)
[2021-07-28 11:33] LABS: Bacteria Moderate HPF (Negative); Crystals Negative HPF (Negative); Epithelial Cells Few HPF (Negative); Other Cells Negative (Negative); RBC 0-2 HPF (0-2); WBC 0-2 HPF (0-5)
[2021-07-28 11:34] LABS: C & S Indicated? Yes; Casts Negative LPF (Negative); Mucus Moderate (Negative)
[2021-07-28 11:46] LABS: *AMPHETAMINES SCREEN URINE Negative (Negative); *BARBITURATES SCREEN URINE Negative (Negative); *BENZODIAZEPINES SCREEN URINE Negative (Negative); Cannabinoids THC Positive (Negative); Cocaine Screen,Urine Negative (Negative); METHADONE URINE SCREEN Positive (Negative); OPIATES URINE SCREEN Negative (Negative); Tricyclic Antidepressants Positive (Negative)
[2021-07-28 12:37] LABS: Troponin I < 50 ng/L (<or=60)
[2021-07-28 12:50] LABS: COVID-19 PCR Negative (Negative)
[2021-07-28] MEDS: ALPRAZolam 0.25 MG TAB PO (13:13)
--- NOTE | 2021-07-28 13:40 | DI.MRI_ITS ---
Exam(s) MR BRAIN WO EXAM: MR BRAIN WO CLINICAL HISTORY: left sided weakness, slurred speech TECHNIQUE: Multiplanar multisequence MRI of the brain was performed. COMPARISON: MR MR BRAIN WO from 04/01/2021 FINDINGS: This patient has an intravascular stent in the intracavernous aspect of the left internal carotid art santino as well as coil material in the upper right intracavernous supraclinoid ICA. CEREBRAL PARENCHYMA: Areas of signal abnormality in the right frontal and parietal lobes evident on FLAIR imaging are agai n noted. No new abnormal FLAIR signal. In addition, on the present study there are no new areas of restricted diffusion evident on DWI imaging. Also no new areas of hypointensity on the ADC map. Lef t-sided microhemorrhages on SWI are unchanged. There is no evidence of intracranial hemorrhage, mass effect, or shift of midline structures. There are no extra-axial fluid collections. Ventricles are not enlarged or shifted. There is no new significant focal signal abnormality in the cerebellar hemispheres nor within the brandon s, midbrain, and thalami. There is no new abnormal signal abnormality in the periventricular white matter. There is no significant focal signal abnormality evident on diffusion imaging to suggest acute ischem ic event. FLOW VOIDS: Appear unchanged PITUITARY GLAND: No mass nor parasellar abnormality. No obvious abnormality in the cavernous sinuses. PARANASAL SINUSES: The visualized paranasal sinuses appear unremarkable. No obvious finding ORBITS: No obvious findings. IMPRESSION: Findings as above but without evidence of new ischemic event(s) when compared to the most recent MRI of 04/01/2021. Also no evidence of new intracranial hemorrhage. Report called by myself to ER physician. DATA REPOSITORY:
[2021-07-28] MEDS: Clopidogrel 75 MG TAB PO (15:16)
[2021-07-28] MEDS: Aspirin E.C. 325 MG TABEC PO (15:16)
--- NOTE | 2021-07-28 16:24 | W.NEUROCONSU ---
Date of service: 07/28/21 Time of Service: 16:24 Assessment and Plan Assessment and plan (1) Left hemiparesis: Status: Acute (2) Altered mental status: Status: Acute (3) Chronic headache: Status: Chronic (4) Seizures: Assessment and plan: Ms. Ervin is a 30 year-old, right-handed woman with a complicated past medical history: #1. Admitted with acute on chronic left hemiparesis, with MRI brain showing no acute stroke. She was also noted to be somnolent as well as hypoxic - with all of her symptoms improving with time. Ddx includes: #1. Toxic-metabolic process (with recrudescence from prior strokes). She is on numerous centrally-acting medications with reported recent increase in methadone dose. #2. Seizure. #3. She also has risk factors for sleep apnea which could be contributing - she has an outpatient Sleep Clinic appt upcoming. Honestly, I wonder if her symptoms/presentation aren't due to a combination of all of these. -I would consider reducing centrally acting medications -EEG tomorrow or overnight EEG if not discharged tomorrow as I would like to see what is happening during sleep -Start topiramate 50mg BID for both seizure prevention and headache prevention. We will increase this to 100mg BID in 1 week. ADRs discussed with her. She has been on this in the past and tolerated well. -For acute headache treatment, can use Compazine 5-10mg q8hr prn. She previously seemed to respond to IV Depakote 500mg TID prn and IV Mag 1gm TID prn (latter must be given quickly over 20min to be effective). -Continue ASA +clopidogrel for stroke prevention. -PT/OT History of Present Illness History of Present Illness Chief Complaint: left hemiparesis Narrative: Handedness: right. HPI: Ms. Ervin is a 30 year-old young woman with opiate dependence and previous IV drug abuse currently sober, hypertension, pre-diabetes, depression, fibromyalgia, severe scoliosis status post Tejeda sonya and thoracic fusion in 2007, AV node ablation for SVT in 2014, PTSD, ADHD, migraine headaches, GERD, and hepatitis C.? She also has an large PFO, cerebral aneursysms, and prior strokes. She presented to the ER today reporting increased left hemiparesis compared to baseline, dysarthria, and headache since waking up yesterday. She apparently had a regularly scheduled appointment at her PCP's office today during which she was noted to be somnolent and at times hypoxic such that she was directed to the ER. In the ER, she was somnolent and intermittently hypoxic in the 80s for which she was placed on O2. She underwent the work-up as below. During her time in the ER, she remained quite somnolent, however, her left hemiparesis did improve. She appears much more alert now but still has a glazed look about her and she confirms she still feels a bit out of it. She was not clear if her left weakness was still worse than baseline or not. She notes severe headache. She states compliance with ASA + clopidogrel at present. She is otherwise on numerous centrally acting medications. Her methadone dose was increased about 1month ago. She notes stable doses of Flexeril and Lyrica. She also has [employer] Rx for hydroxyzine, olanzapine, and paroxetine. Work-up: -Labs (07/28/21): W 9.51, Hgb 9.9, Plt 277, Na 141, K 4.1, HCO2 33.1, AG 2.9, BUN 21, Cr 0.7, AlkP 184 with normal ASA/ALT/bili, trop neg x2, alb 2.9 -Urine (07/28/21): UA neg; UDS +methadone, TCA, and THC -CT chest (07/28/21): no PE. Mild cardiomegaly. R thyroid nodule. -CTH (07/28/21): no acute findings. Old right frontal stroke. I reviewed these images personally and this is my personal interpretation. -CTA head/neck (07/28/21): s/p bilateral ICA coiling/stents - stable. No stenosis. I reviewed these images personally and this is my personal interpretation. -MRI brain (07/28/21): No acute findings. Old right frontal and parietal strokes. Old left parietal and frontal microhemorrages with ?old microhemorrages in R posterior temporal and R frontal lobes as well. I reviewed these images personally and this is my personal interpretation. #1. History of ?seizures. She recalls having childhood petit mal seizures which was treated with medications. Prior clinic notes indicate a remote history of seizures secondary to escitalopram but she denies this today. Between [id number], she had several events of seizure-like activity described below. She was seen by neurologist Dr. Durant at that time who recommended EEG which was never completed. She was treated with lamotrigine for some time, up to dose of 225mg BID. -Jan 2019: She was seen in the [facility] ER on 01/30/19 for multiple episodes of LOC preceded by pre-syncope, one occurring in the shower. -Mar 2019. She fell in her kitchen, ?hit her head. She was able to get up and walk to her bedroom/BF where she was witnessed to fall, eyes rolled back, GTC x 10-20min. No B/B/T. Sleepy x days after. -Apr 2019. Hit in head by napkin box door at [place]. In the car on the way home, she had 2 episodes of head turning and eyes rolling back with unresponsiveness. Sleepy x days after. -Apr 2019. She was coughing. Fell forward from seated position. ?LOC. Then apparently stood up to fall again with GTC x 5-10min. Nose bleed. Awoke to right leg jerking. -June 2019 - admit to [facility] with intermittent waxing/waning?twitching, jerking, speech changes, and right-sided weakness.? Her neurological exam was noted for right-sided weakness complicated by functional overlay. Negative stroke work-up. She was not on lamotrigine at that time. She was also somnlent. Rec'd EEG. She left AMA. She has seizure risk factors including nocturnal tongue biting as recently as last week (healing lesion seen on left lateral posterior tongue) as well as nocturnal incontinence - though she also has daytime incontinence. She sleeps by herself. She has been referred to the sleep clinic already for ?BRIAN. 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 #2. Cerebral aneurysms. She has a family history of a paternal aunt who from cerebral aneurysm in her 30s.? -2016: She underwent right paraclinoid/ICA non-ruptured aneurysm coiling with stent-assist in 2 stages. -2019: She underwent stent-assisted coiling of left ophthalmic non-ruptured aneurysm which on repeat examination had turned into 3 small aneurysms involving the left supraclinoid ICA - stent successfully placed across all 3.? This was complicated by post-op bilateral UE and LLE numbness along with flashing lights in her vision/visual obscurations.? An MRI of c-spine and L-spine were performed.? They were both unremarkable except for mild lumbar curvature. -Cerebral arteriogram (11/03/18 at [facility] ?No substantial recurrence of right-sided periophthalmic aneurysm. No evidence of ICA stenosis.? 3mm left ophthalmic aneurysm.? -Cerebral arteriogram (05/08/20 at [facility]): ...L ICA s/p pipeline stent placement demonstrating expected endothelialization with complete opacification of the terminal ICA with uninhibited transit of contrast to the terminal branches. No evidence of residual or new aneurysm in left hemisphere. #3. History of strokes. -Jan 2017: right frontal subclinical stroke in setting of increased headaches + fever. The CT head performed at that time was read by radiology as normal though there was a new right frontal hypodensity (comparing CTH from 02/13/17 with 02/16/17).? Because the abnormality was not identified, neurology was not consulted for stroke and she was not started on antiplatelets at the time.?She had 1 out of 2 blood cultures positive at that time with staph saprophyticus.? This was thought to be contaminant. She had an LP that was unremarkable at that time. She was treated with doxepin and hydroxyzine with modest improvement in her headache. -August 2018: increased headaches, flashing lights, + fever found to have new subacute strokes in the right occipital, parietal, and frontal lobes. She was transferred to [facility] [place] further care. Etiology of her stroke was thought to be due to thrombosed aneurysm coil/stent vs cardioembolic.? She was placed on ASA + Plavix for secondary stroke prevention.? 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 She consulted with [facility] cardiology in September 2018 for ASA with large shunt/PFO.? They did not recommend closure at that time unless she had further strokes.? -Feb 2021: She presented to the [facility] ER with left hemiparesis and tinging in her L face. Found to have new strokes as below. She was not taking her anit-platelets at the time. She left AMA. -Mar 2021: She presented again to [facility] ER with left hemiparesis. Again notes to have new infarct. Again not taking her anti-platelet medications. Recommended to re-start those and outpatient follow-up. She consulted with [facility]iology Apr 2021 regarding PFO closure. They did not recommend closure as they attributed all prior strokes to complications from anti-platelet non-compliance in the setting of stents. She has persistent left hemiparesis following this stroke. Prior Imaging: -MRI brain (August 2019): no acute findings.? Old right frontal infarct. 2 new but old areas of prior hemorrhage in the left parietal and frontal cortex (small), compared to 2019 MRI. This is presumably due to recent coiling.? -MRI brain (03/15/21): Subacute infarcts in right frontal and parietal lobes in watershed distribution along with 2 areas of small infarction the left parietal and frontal lobes. I reviewed these images personally and this is my personal interpretation. -MRI brain (04/01/21): More extensive new subacute infarcts in the right frontal, parietal, and occipital lobes. Stable prior micorhemorrhages. I reviewed these images personally and this is my personal interpretation. #4. Chronic migraine headaches. She has a long history of migraine headaches since age 10.? Her headaches are generally right-sided and then progress to involve the entire head.? She has a long history of medication overuse associated with her headaches including [id number] medications, Fioricet, Imitrex, and narcotic pain medications.? She previously consulted with [facility] in 2014.? -Previous prophylactic medications: metoprolol, amitriptyline, Depakote, Topamax 50 mg twice daily, Lyrica, Savella, occipital nerve blocks x1 in March 2015 -Previous rescue medications: Zomig, Maxalt, Percocet, Fioricet, Imitrex, Excedrin, ibuprofen, Tylenol, Aleve, Excedrin, hydroxyzine. *During her August 2018 hospitalization, she was treated with APAP, tizainidine, and toradol with minimal improvement.? She seemed to respond to IV Depakote 500mg TID, IV Mag 1gm daily and increasing her gabapentin.? ?#5. Other issues -she has had no menses x 6months -chronic urinary incontinence with recent vulvar sore which she thinks is due to wearing pads. She has not had this evaluated. Review of Systems All systems reviewed & are unremarkable except as noted in HPI and below PFSH All Active Problems (Updated 07/28/21 @ 19:12 by Rosie Hdez MD) Discharge planning issues (Acute) DVT prophylaxis (Acute) Hypoxia (Acute) Left hemiparesis (Acute) Nodule of right lobe of thyroid gland (Acute) Brain TIA (Acute) Altered mental status (Acute) Lumbosacral spondylosis without myelopathy (Acute) CVA (cerebrovascular accident) (Chronic) TIA (transient ischemic attack) (Acute) Bacterial pneumonia (Acute) Opioid dependence (Chronic) QT prolongation (Acute) Pneumonia due to COVID-19 virus (Acute) Allergic reaction (Acute) Medication overuse headache (Acute) Chronic headache (Chronic) PFO (patent foramen ovale) (Chronic) Hypersomnia (Acute) Altered mental status (Acute) Abnormal movements (Acute) Right hemiparesis (Acute) Discharge planning issues (Acute) DVT prophylaxis (Acute) Back pain (Acute) Atypical chest pain (Acute) Acute focal neurological deficit (Acute) Stroke-like symptom (Acute) Acute right-sided muscle weakness (Acute) Acute CVA (cerebrovascular accident) (Acute) Status migrainosus (Acute) Stroke (Chronic) Dyspepsia (Acute) Acute febrile illness (Acute) Nephrolithiasis (Chronic) Scoliosis (Chronic) PTSD (post-traumatic stress disorder) (Chronic) History of intravenous drug abuse (Chronic) Depression (Chronic) Asthma (Chronic) Migraine headache with aura (Chronic ~2000) Hepatitis C infection (Chronic) Chronic daily headache (Chronic) Opioid dependence in controlled environment (Chronic) Medical History (Updated 07/28/21 @ 19:12 by Rosie Hdez MD) ADD (attention deficit disorder) Aneurysm of ophthalmic artery L, s/p stent Atrial septal aneurysm Blood bacterial culture positive Chronic pain Chronic systolic CHF (congestive heart failure) EF 50% in 08/2018 - [facility] Community acquired bacterial pneumonia Fibromyalgia Intracranial aneurysm Seizures Spondylosis of lumbar spine SVT (supraventricular tachycardia) S/p ablation Therapeutic opioid induced constipation Surgical History H/O lithotripsy History of History of cerebral aneurysm repair (~2014) S/P cystoscopy with ureteral stent placement S/P tubal ligation Status post ablation operation for arrhythmia SVT Status post thoracic spinal fusion Family History Paternal Aunt Cerebral aneurysm Diabetes Hypertension Maternal Aunt Migraines Maternal Grandmother Heart disease Hypertension Migraines Paternal Grandmother Heart disease Diabetes Father Diabetes Hypertension Maternal Grandfather Diabetes Paternal Uncle Diabetes Hypertension Paternal Grandfather Hypertension Brother Migraines Mother Migraines Social History Smoking/Tobacco Use Status: Current every day Tobacco Type: cigarettes Quit status: considering quitting Smoking risk assessment performed?: Yes (0.5 ppd) Alcohol Intake: former Details: pt reports social use Drug use: Current Sobriety Substance use type: former substance user, marijuana, crack/cocaine, heroin, opiates and IV drugs Details: former heroin and cocaine user, 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 only drugs that she uses currently is marijuana Household members: none Number of Children: 3 Do you feel safe at home: Yes Do you feel safe in your relationship?: Yes History History 2 Para 3 Hx # Term Pregnancies 2 Multiple births Hx # Pregnancies Ectopic pregnancies AB induced Hx Number of Living Children 3 AB spontaneous Visit Medication and Allergies Active Medications Generic Name Dose Route Start Last Admin Trade Name Freq PRN Reason Stop Dose Admin Acetaminophen 0 mg 07/28/21 15:04 Acetaminophen 325 Mg Tab PO Q4H PRN PRN Al Hydrox/Mg Hydrox/Simethicone 30 ml 07/28/21 15:04 Mylanta Suspension 30 Ml Cup PO Q2H PRN PRN Albuterol Sulfate 2.5 mg 07/28/21 15:04 Albuterol 2.5 Mg/3 Ml Inh Soln Vial UPD Q2H PRN PRN Dimethicone/Zinc Oxide 0 gm 07/28/21 14:59 Sharon Protect Cream 142 Gm Tube TP PRN PRN Docusate Sodium 100 mg 07/28/21 15:04 Docusate Sodium 100 Mg Cap PO TID PRN PRN Heparin Sodium (Porcine) 5,000 units 07/28/21 18:00 Heparin 5,000 Units/Ml Vial SC Q8H SAMIR Sodium Chloride 500 mls @ 0 mls/hr 07/28/21 09:14 Saline 500ml Bag IV PRN PRN As Directed IV Miscellaneous Supplies 1 each 07/28/21 09:15 Iv Access IV DIRECTED SAMIR Iohexol 100 ml 07/28/21 10:30 07/28/21 10:26 Omnipaque 350 Mg/Ml 100 Ml Btl IJ 08/27/21 23:59 100 ml DIRECTED SAMIR Administration Magnesium Hydroxide 30 ml 07/28/21 15:04 Milk Of Magnesia 30 Ml Cup PO DAILY PRN PRN Sodium Chloride 0 ml 07/28/21 09:14 Normal Saline Flush 10 Ml Syr IVP PRN PRN Allergies meperidine HCl [From Demerol] Allergy (Severe, Verified 07/28/21 09:54) Anaphylaxsis venom-honey bee [bee venom (honey bee)] Allergy (Severe, Verified 07/28/21 09:54) anaphylaxis lithium Adverse Reaction (Mild, Verified 07/28/21 09:54) NAUSEA sertraline HCl [From Zoloft] Adverse Reaction (Mild, Verified 07/28/21 09:54) NIGHTMARES Exam Narrative Exam Narrative: Physical Exam: Gen: Patient of apparent stated age, NAD, appears drowsy/dazed Head and face: no facial or cranial abnormalities; healing left lateral tongue laceration Neck: Supple, no meningismus, no occipital tenderness CV: + S1, S2, RRR, no murmur Resp: CTA B/L Abd: soft, nontender, nondistended, BMI 50 Ext: No edema. No clubbing or cyanosis. No bony deformity. Neuro Exam: Language: fluency, naming, repetition, and comprehension intact; Mental Status: tired/somnolent, Ox3, current events intact, fund of knowledge intact; Speech: no dysarthria Cranial nerves: Funduscopy: not performed CN II: visual ching intact CN III, IV, : extraocular movements intact, no nystagmus, pupils symmetric and reactive to light CN V: reduced sensation left face CN VII: no facial asymmetry noted CN VIII: hearing intact bilaterally CN IX, X: palate rises symmetrically CN XI: trapezius/SCM 5/5 bilaterally CN XII: protrudes tongue symmetrically Sensory: reduced sensation LT/PP in left hemibody Motor: bulk and tone intact. Fine motor movements slightly reduced on the left. No pronator drift. Subtle 4++/5 LUE weakness. LLE 4-/5 proximally and 4+/5 distally. 5/5 strength R hemibody. Reflexes: 2+ at the biceps, triceps, and brachioradialis; reduced in bilateral patella and achilles tendons bilaterally; toes down going bilaterally; Coordination: FTN and HTS intact bilaterally Gait: not tested due to somnolence Results Last Vital Signs Temp 97.7 F 07/28/21 08:53 Pulse 82 07/28/21 14:00 Resp 6 L 07/28/21 14:00 BP 111/58 L 07/28/21 14:00 Pulse Ox 97 07/28/21 14:00 Labs Result diagrams: 07/28/21 09:15 07/28/21 09:15 Labs: Laboratory Results - last 24 hr 07/28/21 07/28/21 07/28/21 09:15 09:15 10:10 WBC 9.51 RBC 4.08 Hgb 9.9 L Hct 34.4 L MCV 84.3 MCH 24.3 L MCHC 28.8 L RDW 16.2 H Plt Count 277 MPV 10.3 Immature Gran % 0.4 Neutrophils % 60.7 Lymphocytes % 28.1 Monocytes % 7.8 Eosinophils % 2.8 Basophils % 0.2 Nucleated RBC % 0 Absolute Neutrophils 5.77 Absolute Lymphocytes 2.67 Absolute Monocytes 0.74 Absolute Eosinophils 0.27 Absolute Basophils 0.02 Sodium 141 Potassium 4.1 Chloride 105 Carbon Dioxide 33.1 H Anion Gap 2.9 L BUN 21 H Creatinine 0.7 Estimated GFR/1.73 m2 >= 60.00 Glucose 109 H Calcium 7.9 L Total Bilirubin 0.2 AST 27 ALT 35 Alkaline Phosphatase 184 H Troponin I < 50 Total Protein 7.9 Albumin 2.9 L Urine Color Urine Clarity Urine pH Ur Specific [place] Urine Protein Urine Ketones Urine Blood Urine Nitrite Urine Bilirubin Urine Urobilinogen Ur Leukocyte Esterase Urine RBC Urine WBC Ur Epithelial Cells Urine Crystals Urine Bacteria Urine Casts Urine Mucus Urine Other Ur Culture Indicated? Urine Glucose Urine Opiates Screen Urine Methadone Screen Ur Barbiturates Screen Ur Tricyclics Screen Ur Amphetamines Screen U Benzodiazepines Scrn Urine Cocaine Screen Ur THC Screen COVID-19 Source Nasal/Nares SARS-CoV-2 (PCR) Negative 07/28/21 07/28/21 07/28/21 11:10 11:10 12:15 WBC RBC Hgb Hct MCV MCH MCHC RDW Plt Count MPV Immature Gran % Neutrophils % Lymphocytes % Monocytes % Eosinophils % Basophils % Nucleated RBC % Absolute Neutrophils Absolute Lymphocytes Absolute Monocytes Absolute Eosinophils Absolute Basophils Sodium Potassium Chloride Carbon Dioxide Anion Gap BUN Creatinine Estimated GFR/1.73 m2 Glucose Calcium Total Bilirubin AST ALT Alkaline Phosphatase Troponin I < 50 Total Protein Albumin Urine Color Yellow Urine Clarity Clear Urine pH 7.0 Ur Specific [place] 1.020 Urine Protein Negative Urine Ketones Negative Urine Blood Negative Urine Nitrite Positive H Urine Bilirubin Negative Urine Urobilinogen 0.2 Ur Leukocyte Esterase Negative Urine RBC 0-2 Urine WBC 0-2 Ur Epithelial Cells Few Urine Crystals Negative Urine Bacteria Moderate Urine Casts Negative Urine Mucus Moderate Urine Other Negative Ur Culture Indicated? Yes Urine Glucose Negative Urine Opiates Screen Negative Urine Methadone Screen Positive A Ur Barbiturates Screen Negative Ur Tricyclics Screen Positive A Ur Amphetamines Screen Negative U Benzodiazepines Scrn Negative Urine Cocaine Screen Negative Ur THC Screen Positive A COVID-19 Source SARS-CoV-2 (PCR)
--- NOTE | 2021-07-28 17:31 | HPE_ITS ---
Date of service: 07/28/21 Time of Service: 17:31 Assessment and Plan Assessment and plan (1) Left hemiparesis: Status: Acute Assessment and plan: Acute on chronic. Ddx: less likely CVA/TIA as MRI negative. Migraine vs seizure. Discussed with Dr Zaidi: will trial topamax, compazine. Neurochecks. EEG in am (2) Hypoxia: Status: Acute Assessment and plan: COVID-19 negative. ?BRIAN/OHS vs CHF. Will check echo. Monitor O2 sats. No evidence of infectious process or PE by CTA. Needs a sleep study. (3) Chronic systolic CHF (congestive heart failure): Assessment and plan: As above Check echo. Check proBNP. (4) Chronic headache: Status: Chronic Assessment and plan: As above Trialing compazine, topamax. (5) DVT prophylaxis: Status: Acute Assessment and plan: sc heparin (6) Discharge planning issues: Status: Acute Assessment and plan: Full code History of Present Illness History of Present Illness Chief Complaint: L-sided weakness, dysarthria Narrative: Ms Ervin is a 30 year old female with PMHx of prior CVA with residual L sided weakness, s/p coiling of R paraclinoid/ICA nonruptured anuerysm, L ophthalmic A aneurysm s/p coiling, R paraophthalmic aneurysm s/p stent, PFO, asthma, opioid dependence on methadone therapy through [facility], who is normally on dual antiplatelet therapy, who presented to [facility] ED today from her PCP's office with headache since this morning, dysarthria since last night, and worsening of L sided weakness since this am. She has had a hard time walking and has been dropping objects from her L hand, but the dropping of objects is normal for her. The patient states that she was surprised when the O2 sats at the PCP's office (routine appointment) were in the 80s, though she does endorse feeling a little short of breath, especially in bed, over the last 2 months. She endorses nasal congestion for one week, denies cough, endorses occasional wheezing. Denies sick contacts. She is scheduled to meet with a sleep medicine provider next week. In the ED, she was indeed found to have L-sided weakness and slurred speech with an NIH stroke scale of 6. CT/CTA head showed stable findings from CT done on 03/15/21 with endovascular stent in intracavernous L internal carotid artery and coil in R sided aneurysm. There was no evidence of any acute occlusion or stenosis, and stable posterior R front infarct was seen. Transfer to [facility] was pursued but denied for capacity. [facility] was contacted, and neurology recommended obtaining an MRI and an EEG. MRI w/o contrast ruled out new ischemic stroke or intracranial hemorrhage. EEG is not available today. The patient was also mildly hypoxic on RA to the 80s while in the ED and was placed on 2L of O2. She received xanax for anxiety prior to MRI, after which she was somewhat more sedated, but arousable. After the MRI, her symptoms were much better. She continued to report a headache. Review of Systems All systems reviewed & are unremarkable except as noted in HPI and below PFSH All Active Problems (Updated 07/28/21 @ 19:12 by Rosie Hdez MD) Discharge planning issues (Acute) DVT prophylaxis (Acute) Hypoxia (Acute) Left hemiparesis (Acute) Nodule of right lobe of thyroid gland (Acute) Brain TIA (Acute) Altered mental status (Acute) Lumbosacral spondylosis without myelopathy (Acute) CVA (cerebrovascular accident) (Chronic) TIA (transient ischemic attack) (Acute) Bacterial pneumonia (Acute) Opioid dependence (Chronic) QT prolongation (Acute) Pneumonia due to COVID-19 virus (Acute) Allergic reaction (Acute) Medication overuse headache (Acute) Chronic headache (Chronic) PFO (patent foramen ovale) (Chronic) Hypersomnia (Acute) Altered mental status (Acute) Abnormal movements (Acute) Right hemiparesis (Acute) Discharge planning issues (Acute) DVT prophylaxis (Acute) Back pain (Acute) Atypical chest pain (Acute) Acute focal neurological deficit (Acute) Stroke-like symptom (Acute) Acute right-sided muscle weakness (Acute) Acute CVA (cerebrovascular accident) (Acute) Status migrainosus (Acute) Stroke (Chronic) Dyspepsia (Acute) Acute febrile illness (Acute) Nephrolithiasis (Chronic) Scoliosis (Chronic) PTSD (post-traumatic stress disorder) (Chronic) History of intravenous drug abuse (Chronic) Depression (Chronic) Asthma (Chronic) Migraine headache with aura (Chronic ~2000) Hepatitis C infection (Chronic) Chronic daily headache (Chronic) Opioid dependence in controlled environment (Chronic) Medical History (Updated 07/28/21 @ 19:12 by Rosie Hdez MD) ADD (attention deficit disorder) Aneurysm of ophthalmic artery L, s/p stent Atrial septal aneurysm Blood bacterial culture positive Chronic pain Chronic systolic CHF (congestive heart failure) EF 50% in 08/2018 - [facility] Community acquired bacterial pneumonia Fibromyalgia Intracranial aneurysm Seizures Spondylosis of lumbar spine SVT (supraventricular tachycardia) S/p ablation Therapeutic opioid induced constipation Surgical History H/O lithotripsy History of History of cerebral aneurysm repair (~2014) S/P cystoscopy with ureteral stent placement S/P tubal ligation Status post ablation operation for arrhythmia SVT Status post thoracic spinal fusion Family History Paternal Aunt Cerebral aneurysm Diabetes Hypertension Maternal Aunt Migraines Maternal Grandmother Heart disease Hypertension Migraines Paternal Grandmother Heart disease Diabetes Father Diabetes Hypertension Maternal Grandfather Diabetes Paternal Uncle Diabetes Hypertension Paternal Grandfather Hypertension Brother Migraines Mother Migraines Social History Smoking/Tobacco Use Status: Current every day Tobacco Type: cigarettes Quit status: considering quitting Smoking risk assessment performed?: Yes (0.5 ppd) Alcohol Intake: former Details: pt reports social use Drug use: Current Sobriety Substance use type: former substance user, marijuana, crack/cocaine, heroin, opiates and IV drugs Details: former heroin and cocaine user, 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 only drugs that she uses currently is marijuana Household members: none Number of Children: 3 Do you feel safe at home: Yes Do you feel safe in your relationship?: Yes History History 2 Para 3 Hx # Term Pregnancies 2 Multiple births Hx # Pregnancies Ectopic pregnancies AB induced Hx Number of Living Children 3 AB spontaneous Meds Allergies and Home Medications Allergies Allergy/AdvReac Type Severity Reaction Status Date / Time meperidine HCl [From Demerol] Allergy Severe Anaphylaxsi Verified 07/28/21 09:54 s venom-honey bee Allergy Severe anaphylaxis Verified 07/28/21 09:54 [bee venom (honey bee)] lithium AdvReac Mild NAUSEA Verified 07/28/21 09:54 sertraline HCl [From Zoloft] AdvReac Mild NIGHTMARES Verified 07/28/21 09:54 Home Medications Medication Instructions Recorded Confirmed Type albuterol sulfate 90 mcg/actuation 2 puff INHALATION Q4H PRN 02/03/18 07/28/21 History aerosol inhaler paroxetine HCl 10 mg tablet (Paxil) 20 mg PO HS 02/03/18 07/28/21 History docusate sodium 100 mg capsule 100 mg PO DAILY #60 cap 07/01/18 07/28/21 Rx (Docusil) aspirin 81 mg tablet,delayed 81 mg PO DAILY 10/17/18 07/28/21 History release (Aspir-) hydroxyzine HCl 25 mg tablet 25 mg PO TID PRN 10/17/18 07/28/21 History lisinopril 5 mg tablet 5 mg PO DAILY 10/17/18 07/28/21 History metoprolol succinate 25 mg 50 mg PO DAILY 10/17/18 07/28/21 History tablet,extended release 24 hr naproxen 375 mg tablet,delayed 375 mg PO BID 10/17/18 07/28/21 History release cyclobenzaprine 5 mg tablet 5 mg PO BID 07/14/19 07/28/21 History olanzapine 5 mg tablet 15 mg PO HS 02/23/21 07/28/21 History methadone 10 mg/5 mL oral solution 90 mg PO DAILY 03/15/21 07/28/21 History polyethylene glycol 17 pwd MISCELLANEOUS DAILY PRN 03/15/21 07/28/21 History sennosides 8.6 mg tablet (Senna 17.2 mg PO DAILY 03/15/21 07/28/21 History Laxative) clopidogrel 75 mg tablet (Plavix) 75 mg PO DAILY #60 tab 04/01/21 07/28/21 Rx lisdexamfetamine 40 mg capsule 50 mg PO DAILY 05/05/21 07/28/21 History (Vyvanse) acetaminophen 500 mg tablet 650 mg PO Q6H 07/28/21 07/28/21 History diclofenac sodium 1 % topical gel 1 applic TOPICAL QID 07/28/21 07/28/21 History epinephrine 0.3 mg/0.3 mL 0.3 mg IM ONCE PRN 07/28/21 07/28/21 History injection, auto-injector fluticasone 500 mcg-salmeterol 50 1 inh INHALATION BID 07/28/21 07/28/21 History mcg/dose blistr powdr for inhalation (Advair Diskus) ibuprofen 400 mg tablet 400 - 800 mg PO Q8H PRN 07/28/21 07/28/21 History pregabalin 150 mg capsule 150 mg PO BID 07/28/21 07/28/21 History pregabalin 75 mg capsule 75 mg PO DAILY 07/28/21 07/28/21 History Exam Narrative Exam Narrative: General: Pleasant obese female who is A&Ox3, able to provide history, moving all 4 extremities Neurological: A&Ox3, CN II-XII intact, though speech somewhat slurred, mild numbness L foot - otherwise, sensory intact. 4/5 LUE strength, 5/5 RUE strength, 3/5 LLE strength, 5/5 RLE strenth, DTRs difficult to illicit, plantar response flexion on R, equivocal on L, no clonus Psychiatric: Appropriate speech pattern/content Skin: Visible skin intact HEENT: Atraumatic, normocephalic, EOMI, MMM, clear oropharynx, Malampati 4, healing L tongue bite, no submandibular or cervical lymphadenopathy, no goiter or JVD Cardiovascular: RRR, no m/r/g Lungs: upper respiratory wheeze Gastrointestinal: soft, nontender, nondistended Genitourinary: deferred Extremities: no edema BLE's, 1+ pedal pulses B Results Imaging Additional studies: CT/CTA head/neck: 1. Findings appear unchanged from 03/15/2021. Again noted is an endovascular stent in the intracavernous left internal carotid artery and right sided aneurysm coil material. 2.? No evidence of acute occlusion or significant stenosis. 3. ? Stable posterior right frontal infarct. CTA chest; 1. No evidence of acute pulmonary emboli.? No evidence of pulmonary infarction.No pleural effusions. 2. Mild cardiomegaly.? No pericardial effusion. 3. Right thyroid lobe nodule is noted.? This can be further studied with ultrasound. MRI brain w/o contrast: Findings as above but without evidence of new ischemic event(s) when compared to the most recent MRI of 04/01/2021.? Also no evidence of new intracranial hemorrhage. EKG: HR 76, NSR, no acute ischemia Labs Result diagrams: 07/28/21 09:15 07/28/21 09:15 Labs: Laboratory Results - last 24 hr 07/28/21 07/28/21 07/28/21 09:15 09:15 10:10 WBC 9.51 RBC 4.08 Hgb 9.9 L Hct 34.4 L MCV 84.3 MCH 24.3 L MCHC 28.8 L RDW 16.2 H Plt Count 277 MPV 10.3 Immature Gran % 0.4 Neutrophils % 60.7 Lymphocytes % 28.1 Monocytes % 7.8 Eosinophils % 2.8 Basophils % 0.2 Nucleated RBC % 0 Absolute Neutrophils 5.77 Absolute Lymphocytes 2.67 Absolute Monocytes 0.74 Absolute Eosinophils 0.27 Absolute Basophils 0.02 Sodium 141 Potassium 4.1 Chloride 105 Carbon Dioxide 33.1 H Anion Gap 2.9 L BUN 21 H Creatinine 0.7 Estimated GFR/1.73 m2 >= 60.00 Glucose 109 H Calcium 7.9 L Total Bilirubin 0.2 AST 27 ALT 35 Alkaline Phosphatase 184 H Troponin I < 50 Total Protein 7.9 Albumin 2.9 L Urine Color Urine Clarity Urine pH Ur Specific [place] Urine Protein Urine Ketones Urine Blood Urine Nitrite Urine Bilirubin Urine Urobilinogen Ur Leukocyte Esterase Urine RBC Urine WBC Ur Epithelial Cells Urine Crystals Urine Bacteria Urine Casts Urine Mucus Urine Other Ur Culture Indicated? Urine Glucose Urine Opiates Screen Urine Methadone Screen Ur Barbiturates Screen Ur Tricyclics Screen Ur Amphetamines Screen U Benzodiazepines Scrn Urine Cocaine Screen Ur THC Screen COVID-19 Source Nasal/Nares SARS-CoV-2 (PCR) Negative 07/28/21 07/28/21 07/28/21 11:10 11:10 12:15 WBC RBC Hgb Hct MCV MCH MCHC RDW Plt Count MPV Immature Gran % Neutrophils % Lymphocytes % Monocytes % Eosinophils % Basophils % Nucleated RBC % Absolute Neutrophils Absolute Lymphocytes Absolute Monocytes Absolute Eosinophils Absolute Basophils Sodium Potassium Chloride Carbon Dioxide Anion Gap BUN Creatinine Estimated GFR/1.73 m2 Glucose Calcium Total Bilirubin AST ALT Alkaline Phosphatase Troponin I < 50 Total Protein Albumin Urine Color Yellow Urine Clarity Clear Urine pH 7.0 Ur Specific [place] 1.020 Urine Protein Negative Urine Ketones Negative Urine Blood Negative Urine Nitrite Positive H Urine Bilirubin Negative Urine Urobilinogen 0.2 Ur Leukocyte Esterase Negative Urine RBC 0-2 Urine WBC 0-2 Ur Epithelial Cells Few Urine Crystals Negative Urine Bacteria Moderate Urine Casts Negative Urine Mucus Moderate Urine Other Negative Ur Culture Indicated? Yes Urine Glucose Negative Urine Opiates Screen Negative Urine Methadone Screen Positive A Ur Barbiturates Screen Negative Ur Tricyclics Screen Positive A Ur Amphetamines Screen Negative U Benzodiazepines Scrn Negative Urine Cocaine Screen Negative Ur THC Screen Positive A COVID-19 Source SARS-CoV-2 (PCR) Last Vital Signs Temp 36.5 C 07/28/21 16:58 Pulse 97 H 07/28/21 16:58 Resp 16 07/28/21 16:58 BP 121/79 07/28/21 16:58 Pulse Ox 91 L 07/28/21 16:58
[2021-07-28] MEDS: Heparin 5,000 UNITS/ML VIAL 5000 UNITS SC (17:41)
[2021-07-28] MEDS: Acetaminophen 325 MG TAB PO (17:45)
[2021-07-28] MEDS: Cyclobenzaprine 10 MG TAB 5 MG PO (19:57)
[2021-07-28] MEDS: Topiramate 50 MG TAB PO (19:58)
[2021-07-28] MEDS: PARoxetine 10 MG TAB 20 MG PO (22:44)
[2021-07-28] MEDS: Pregabalin 50 MG CAP 150 MG PO (22:44)
[2021-07-28] MEDS: OLANZapine 5 MG TAB 15 MG PO (22:44)
[2021-07-29] VITALS (9 sets, daily range): BP systolic 122–150; BP diastolic 83–96; PULSE 78–104; RESP 14–17; TEMP 35.9–36.8; O2SAT 95–98
[2021-07-29] MEDS: Heparin 5,000 UNITS/ML VIAL 5000 UNITS SC ×3 (03:33→17:56)
[2021-07-29 07:06] LABS: Abs Immature Grans 0.03 10^3/uL (0.0-0.06); Absolute Basophil Count 0.02 10^3/uL (0.0-0.2); Absolute Eosinophil Count 0.25 10^3/uL (0.0-0.7); Absolute Lymphocyte Count 2.04 10^3/uL (1.2-3.4); Absolute Monocyte Count 0.53 10^3/uL (0.1-0.8); Absolute Neutrophil Count 3.85 10^3/uL (1.2-6.7); Basophils % 0.3; Eosinophils % 3.7; HCT 33.7 % (36.0-46.0); HGB 9.5 g/dL (11.2-15.7); Immature Grans % 0.4; Lymphocytes % 30.4; MCH 23.9 pg (27.0-33.0); MCHC 28.2 % (32.0-36.0); MCV 84.7 fL (80-95); MPV 10.7 fL (8.0-11.0); Monocytes % 7.9; Neutrophils % 57.3; Nucleated RBC 0 %; Platelet Count 246 10^3/uL (130-400); RBC 3.98 10^6/uL (3.93-5.22); RDW 15.9 % (11.7-14.6); RDW-SD 50.1 fL; WBC 6.72 10^3/uL (4.4-10.8)
[2021-07-29 07:23] LABS: Anion Gap 1.2 mmol/L (3-11); BUN 20 mg/dL (7-18); CO2 34.8 mmol/L (21.0-32.0); CREATININE 0.8 mg/dL (0.55-1.02); Calcium 8.3 mg/dL (8.5-10.1); Chloride 103 mmol/L (98-107); Glucose 146 mg/dL (74-106); Potassium 3.8 mmol/L (3.5-5.1); Sodium 139 mmol/L (136-145)
[2021-07-29 07:36] LABS: Calculated LDL 90 mg/dL (<100); Cholesterol 161 mg/dL (<200); HDL Cholesterol 48 mg/dL (40-60); TSH (W/Ref FT4) 0.45 uIU/mL (0.36-3.74); Triglyceride 115 mg/dL (<150)
[2021-07-29 07:58] LABS: NT-proBNP 88 pg/mL (<300)
--- NOTE | 2021-07-29 08:00 | DI.US_ITS ---
APPROVED REPORT EXAM: Comprehensive 2D, Doppler, and color-flow Echocardiogram Patient Location: In-Patient Room/Bed: [address] [employer] Analyst: Becki Samaniego RDCS (AE) Indications: CHF Other Information Study Quality: Fair. Technically limited study due to body habitus. Conclusion Normal left ventricular wall thickness and chamber size. Estimated ejection fraction is 60%. Wall m otion is normal Normal right ventricular size and systolic function Both atria are normal in size There is no structural or hemodynamically significant valvular disease Wall motion Left Ventricle The left ventricle is normal size. The left ventricular systolic function is normal. The left ventric ular ejection fraction is within the normal range. There is normal left ventricular wall thickness. T here is normal LV segmental wall motion. There is no ventricular septal defect visualized. LVEF is 58 %. Right Ventricle The right ventricle is normal size. The right ventricular systolic function is normal. Atria The left atrium size is normal. The right atrium size is normal. The interatrial septum is intact wit h no evidence for an atrial septal defect. Aortic Valve The aortic valve is normal in structure. Aortic valve is trileaflet. There is no aortic valvular sten osis. No aortic regurgitation is present. Mitral Valve The mitral valve is normal in structure. No evidence of mitral valve stenosis. Trace mitral regurgita tion. Tricuspid Valve The tricuspid valve is normal in structure. There is no tricuspid valve stenosis. Trace tricuspid reg urgitation. Pulmonic Valve The pulmonary valve is normal in structure. There is no pulmonic valvular stenosis. Trace pulmonic re gurgitation. Great Vessels The aortic root is normal in size. The ascending aorta is normal in size. Aortic arch is not well vis ualized. IVC is normal in size and collapses >50% with inspiration. Pericardium There is no pericardial effusion. 2D Dimensions IVSD d PLAX 1.02 cm F: 0.6-1.0 LV Vol A2C d MOD 171.8 mL LVPW d PLAX 1.02 cm F: 0.6 - 1.0 LV Vol A4C d MOD 81.4 mL LVID d PLAX 5.12 cm F: 3.8 - 5.2 LV EF A4C MOD 57.8 % LVDs 3.60 cm F: 2.2 - 3.5 LV EF A2C MOD 58.2 % Ao Root d 2.81 cm F: 2.7 - 3.3 LV EF Biplane MOD 59.1 % RA Area A4C 13.88 cm2 SV 73.32 mL RA Vol/ BSA A4C s A-L 16.8 mL/m2 SV Index 33.55 mL/m2 Ao Asc Diam d 2.68 cm F: 2.3 - 3.1 LV EF Teichholz 56.3 % LVEF (Marcano's) 59.06 % F: 54 - 74 LV Volume 90.47 mL F: 46 - 106 LV Volume Index 41.50 mL/m2 F: 29 - 61 LV Vol Biplane MOD 124.1 mL FS 29.55 % M-Mode TAPSE 3.18 cm (M/F) >1.7 LV Diastology MV E' medial 0.085 (>0.07 m/s) E/A Ratio 1.2 LV E/e MED 9.55 (<14) MV E Vmax 0.81 (0.4-1.3 m/s) MV E' lateral 0.158 (>0.1 m/s) MV A Vmax 0.65 (0.4-1.3 m/s) LV E/e LAT 5.10 (<14) MV E/A Ratio 1.22 MV E/E' medial 9.58 MV E/E' lateral 5.13 Aortic Valve LVOT Area 3.22 cm2 AoV Area Vmax 1.93 cm2 LVOT Vmax 0.99 m/s AoV Area/ BSA (Vmax) 0.88 cm2/m2 LVOT Mean Ruiz. 0.62 m/s CHYNA Mean Ruiz. 1.71 cm2 LVOT Peak Grad 3.9 mmHg CHYNA Mean Ruiz. Index 0.78 cm2/m2 LVOT Mean Grad 1.9 mmHg LVOT VTI 0.199 m LVOT Diam s 2.00 cm AoV Vmax 1.65 m/s Velocity Ratio 0.60 AoV Mean Ruiz. 1.17 m/s AoV Peak Grad 10.8 mmHg LVOT SV 64.06 mL AoV Mean Grad 6.0 mmHg AoV VTI 0.282 m AoV Area VTI 2.27 cm2 AoV Area/ BSA (VTI) 1.04 cm/m2 Mitral Valve MV DT 203 (160-240 msec) MV PHT 59 msec MV Area PHT 3.74 cm2 MV VTI 0.330 m MV Area VTI 1.94 (4.0-6.0 cm2) Pulmonary Valve PV Vmax 1.10 (0.5-1.5 m/s) RVOT Peak Gr. 2.32 mmHg PV Peak Grad 4.9 mmHg RVOT Mean Gr. 1.00 mmHg PV Mean Grad 2.6 mmHg RVOT VTI 0.163 m PV VTI 0.221 m RVOT Vmax 0.76 m/s Tricuspid Valve TR Peak Grad 12.5 mmHg TR Vmax 1.77 m/s
[2021-07-29] MEDS: Cyclobenzaprine 10 MG TAB 5 MG PO ×2 (08:10→20:35)
[2021-07-29] MEDS: Methadone 10 MG TAB 90 MG PO (08:12)
[2021-07-29] MEDS: Senna TAB 2 TAB PO (08:12)
[2021-07-29] MEDS: Pregabalin 25 MG CAP 75 MG PO (08:14)
[2021-07-29] MEDS: Aspirin E.C. 81 MG TABEC PO (08:14)
[2021-07-29] MEDS: Docusate Sodium 100 MG CAP PO (08:14)
[2021-07-29] MEDS: Budesonide/Formoterol 160/4.5 6 GM 60 PUFF INH IH ×2 (08:15→20:34)
[2021-07-29] MEDS: Topiramate 50 MG TAB PO ×2 (08:15→20:35)
[2021-07-29] MEDS: Clopidogrel 75 MG TAB PO (08:15)
[2021-07-29] MEDS: Diclofenac 1% Gel 100 GM TUBE TP ×4 (08:16→20:34)
--- NOTE | 2021-07-29 08:30 | OT.INIE ---
Occupational Therapy Notes Inpatient Occupational Therapy Evaluation Date: 07/29/21 Referring Doctor:Rosie Hdez MD OT Orders: Non-Urgent- Limited Ability Precautions: Fall, Standard, Full code PATIENT PROFILE/ADMITTING DIAGNOSIS: Pt is a 30 year old female who presented to the Emergency Room with hypoxia, (L) hemiparesis, nodule of (R) lobe of thyroid gland, Brain TIA, altered mental status, lumbosacral sypondylisis with myelopathy, CVA, TIA, bacterial pneumonia, opiod dependence. Past Medical History- All Active Problems?(Updated 07/28/21 @ 19:12 by Rosie Hdez MD) Discharge planning issues (Acute) DVT prophylaxis (Acute) Hypoxia (Acute) Left hemiparesis (Acute) Nodule of right lobe of thyroid gland (Acute) Brain TIA (Acute) Altered mental status (Acute) Lumbosacral spondylosis without myelopathy (Acute) CVA (cerebrovascular accident) (Chronic) TIA (transient ischemic attack) (Acute) Bacterial pneumonia (Acute) Opioid dependence (Chronic) QT prolongation (Acute) Pneumonia due to COVID-19 virus (Acute) Allergic reaction (Acute) Medication overuse headache (Acute) Chronic headache (Chronic) PFO (patent foramen ovale) (Chronic) Hypersomnia (Acute) Altered mental status (Acute) Abnormal movements (Acute) Right hemiparesis (Acute) Discharge planning issues (Acute) DVT prophylaxis (Acute) Back pain (Acute) Atypical chest pain (Acute) Acute focal neurological deficit (Acute) Stroke-like symptom (Acute) Acute right-sided muscle weakness (Acute) Acute CVA (cerebrovascular accident) (Acute) Status migrainosus (Acute) Stroke (Chronic) Dyspepsia (Acute) Acute febrile illness (Acute) Nephrolithiasis (Chronic) Scoliosis (Chronic) PTSD (post-traumatic stress disorder) (Chronic) History of intravenous drug abuse (Chronic) Depression (Chronic) Asthma (Chronic) Migraine headache with aura (Chronic ~2000) Hepatitis C infection (Chronic) Chronic daily headache (Chronic) Opioid dependence in controlled environment (Chronic) Medical History?(Updated 07/28/21 @ 19:12 by Rosie Hdez MD) ADD (attention deficit disorder) Aneurysm of ophthalmic artery L, s/p stentAtrial septal aneurysm Blood bacterial culture positive Chronic pain Chronic systolic CHF (congestive heart failure) [place] [place] [facility] [place] Fibromyalgia Intracranial aneurysm Seizures Spondylosis of lumbar spine SVT (supraventricular tachycardia) S/p ablationTherapeutic opioid induced constipation Surgical History? H/O lithotripsy History of History of cerebral aneurysm repair (~2014) S/P cystoscopy with ureteral stent placement S/P tubal ligation Status post ablation operation for arrhythmia SVTStatus post thoracic spinal fusion Social History/Home Situation: Pt reports that she lives with her friend and has for about a month now. She notes that she is relatively (I) in terms of her ADLs/IADLs at her baseline level of function. She has had (R) sided weakness for over a year per pt report. She reports that she drives (I) but doesn't have a car currently, eats (I) but notes increased idfficulty with swallowing her foods. She reports that this is more due to solid foods and not being able to get the food down. Pt can functionally perform all of her ADLs with minimal (A). She has fallen in the shower in the past due to blacking out with one time she reports she hit her head on the toilet. OT does feel that pt may benefit from a shower bench to decrease this risk as this is decreasing pts safety in her functional activities. Pt reports that she does have 3 children who are in the State's custody. She reports that she has not seen them. She utilizes a cane if she feels that she is having weakness. She has a tub shower in her current home which she states that she is able to get in and out ok but sometimes has difficulty with balance. Equipment owned/DME: Cane SUBJECTIVE:??Pt was sitting in her chair when OT arrived. She is agreeable to OT session and notes that she is feeling like she is at her baseline in terms of her ADLS. OBJECTIVE:? General Observation: Telemetry in place, IV in (L) UE Mental Status: A&Ox3 Pain:pt has pain in her (B) hands which she states is due to her arthritis. ROM: RUE Shoulder flexion AROM to 110*, elbow flexion/extension WNL, hand, wrist and digits WNL L UE Shoulder flexion AROM to 110*, elbow flexion/extension WNL, hand, wrist and digits WNL STRENGTH: RUE Shoulder flexion 3+/5, bicep 3/5, tricep 3/5, wrist flexors 3/5, wrist extensors 3+/5, critical systems technician is weak compared to (L) LUE Shoulder flexion 3/5, bicep 3/5, tricep 4/5, wrist flexors 4/5, wrist extensors 3+/5, critical systems technician is stronger than (L) 4/5 SENSATION: Pt reports that this is intact in (B) UE. FUNCTIONAL MOBILITY/ADLS:? Transfers without (A) device at home except when feeling weak then states that she utilizes a cane. Sit-Stand (S) Stand-sit (S) BATHING Pt denies fully performing her bathing routine but is agreeable to assessment of her AROM for bathing tasks. DRESSING Dressing UE Min (A) don and doffing hospital gown due to telemetry. Dressing LE Sitting in bed (I) with don and doffing (B) socks. GROOMING (I) with her hair. She denies her oral hygiene but states that she is able to perform this (I). TOILETING NT with OT however pt states that she has no difficulty getting on and off the toilet. She is (I) With toileting hygiene and demonstrates this in the standing position with AROM. EATING Sitting in chair, pt is (I) with her eating demands, she is able to appropriately use her silverware, she has ideal grasp with her hands and no limitations in chewing. However she notes difficulty with her swallowing. OT recommends that pt have an WINDING INSPECTOR consult due to this. BALANCE: Static sitting Normal Dynamic Sitting Normal Static Standing Good Dynamic Standing Normal SPECIAL TESTS:? Daily Activity Limitations Standardized Measure [facility] ? AM -PAC ? ?6 clicks? Daily Activity Inpatient Short Form: Raw score: 23? Standardized score: 51.12 ? CMS score: 15.86% ? INFORMED CONSENT/EDUCATION: Pt instructed in purpose of OT Consult and plan of care. ASSESSMENT:?? Patient is a 30-year-old female referred to occupational therapy services with diagnosis of hypoxia, (L) hemiparesis, nodule of (R) lobe of thyroid gland, Brain TIA, altered mental status, lumbosacral sypondylisis with myelopathy, CVA, TIA, bacterial pneumonia, opiod dependence. Pt feels that she is at her baseline level of function. She states that she is at her baseline level of function. She is able to perform her ADLs in an appropriate manner and with increased (I) throughout. AMPAC score 23 Patient is assessed as a? Low 27051 complexity based on the following: History: See above Examination: See functional limitations as noted above Presentation: Evolving Decision Making: AMPAC score-23 GOALS N/A seen for OT consult only. PLAN OF CARE/TREATMENT PLAN: Discharge from skilled OT services. OT recommends WINDING INSPECTOR consult as pt states that he has difficulty with swallowing since her stroke and this is sometimes bothersome to her and limits her in her eating routines DISCHARGE RECOMMENDATIONS OT recommends that pt return home with medically cleared per MD. Pt would benefit from a shower seat to increase her safety performance during bathing routine. TREATMENT TIME/MINUTES/CODES 08342, 15 minutes (08:15) Judit Mercedes OTR/L [facility]
[2021-07-29] MEDS: Normal Saline Flush 10 ML SYR IVP (08:39)
--- NOTE | 2021-07-29 08:49 | STREC_ITS ---
Date of service: 07/29/21 Time of Service: 08:49 Speech Therapy Recommendations Report ST Recommendations: CUSTOMER SERVICE ASSISTANT Communication / Non-Treatment Note Consult order received; chart reviewed. CUSTOMER SERVICE ASSISTANT spoke with patient's RN, Claudia schmidt: current patient status, reason for consult ie referral from Dr Hdez for CSE and communication assessment, given Ddx at time of admission for TIA vs migraine vs seizure. RN reports patient has slurred speech, takes a minute to think to get ideas out; also is able to tolerate regular/thin diet and adequate appetite, but does has some coughing, unclear if this is related to dysphagia. Plan: CUSTOMER SERVICE ASSISTANT to returnthis AM during medication administration with RN also present for full assessment/screening as appropriate, provide updated recommendations at that time. Sabrina Espinosa MA CCC-CUSTOMER SERVICE ASSISTANT Speech-Language Pathologist MA#[phone] Coding
--- NOTE | 2021-07-29 09:32 | PDOC.CMIN ---
- If Service Date Differs Date of service: 07/29/21 Time of Service: 09:33 Care Management Initial Assess REASON FOR HOSPITALIZATION:: Recurrent L sided weakness PAST MEDICAL HISTORY/PAST SURGICAL HISTORY:: Ms. Ervin is a 30 year-old young woman with opiate dependence and previous IV drug abuse-currently sober, hypertension, pre-diabetes, depression, fibromyalgia, severe scoliosis status post Tejeda sonya and thoracic fusion in 2007, AV node ablation for SVT in 2014, PTSD, ADHD, migraine headaches, GERD, and hepatitis C.? She also has an large PFO, cerebral aneursysms, and prior strokes. She presented to the ER today reporting increased left hemiparesis compared to baseline, dysarthria, and headache since waking up yesterday. She apparently had a regularly scheduled appointment at her PCP's office today during which she was noted to be somnolent and at times hypoxic such that she was directed to the ER. PREVIOUS FUNCTIONAL STATUS/SOCIAL/FAMILY SUPPORTS:: Resides in [facility] with significant other, Dino. Her mother, Deidre resides nearby as well. CURRENT FUNCTIONAL STATUS:: Ghada is now on room air, and cleared mentally per MD. She is out of the room when CM attempts to meet with her. Has patient been provided with info about the portal/API?: Yes Did the patient sign up for the portal?: No CODE STATUS:: Full Code INSURANCE COVERAGE / FINANCIAL ISSUES:: Medicaid CURRENT [place]UNITY [place] [facility] [place] PRIMARY CARE PHYSICIAN:: Frances Sorensen POTENTIAL DISCHARGE NEEDS:: Follow up appointments, further work-up. PATIENT/FAMILY EDUCATION NEEDS:: Review discharge instructions, discuss Ask Me Three. ANTICIPATED BARRIERS TO DISCHARGE:: None identifed at this time. TRANSPORTATION:: Via private vehicle with family or RCT. PLAN:: Ghada will discharge home when ready per MD. She will follow up with her PCP and plan of care as prescribed including outpatient follow up. Speech Therapist requested outpatient swallow study to be ordered upon discharge; CM notified Dr. Hdez of request. Anticipate Ghada will transport via private vehicle with a friend or RCT.
--- NOTE | 2021-07-29 10:14 | PT.INIE ---
Date of service: 07/29/21 Time of Service: 10:14 PT Notes Visit Reasons: Recurrent L Sided Weakness Physical Therapy Inpatient Initial Evaluation Date: 07/29/2021 Referring Doctor: Rosie Hdez MD PT Orders: PT CONSULT: Limited sbility Precautions: Fall. Standard. Activity as tolerated. Seizure-prone. Patient Profile/Admitting Diagnosis: Ghada is a 30-year-old female with past medical history significant for CVA, PFO, spinal fusion, opiate dependence and previous IV use who presented to the ED on 07/28/2021 with increasing L-side weakness, slurred speech, headache, and increasing somnolence. Patient is diagnosed with acute on chronic L hemiparesis, altered mental status, chrininc headache, and seizures. PMHX: All Active Problems?(Updated 07/28/21 @ 19:12 by Rosie Hdez MD) Discharge planning issues (Acute) DVT prophylaxis (Acute) Hypoxia (Acute) Left hemiparesis (Acute) Nodule of right lobe of thyroid gland (Acute) Brain TIA (Acute) Altered mental status (Acute) Lumbosacral spondylosis without myelopathy (Acute) CVA (cerebrovascular accident) (Chronic) TIA (transient ischemic attack) (Acute) Bacterial pneumonia (Acute) Opioid dependence (Chronic) QT prolongation (Acute) Pneumonia due to COVID-19 virus (Acute) Allergic reaction (Acute) Medication overuse headache (Acute) Chronic headache (Chronic) PFO (patent foramen ovale) (Chronic) Hypersomnia (Acute) Altered mental status (Acute) Abnormal movements (Acute) Right hemiparesis (Acute) Discharge planning issues (Acute) DVT prophylaxis (Acute) Back pain (Acute) Atypical chest pain (Acute) Acute focal neurological deficit (Acute) Stroke-like symptom (Acute) Acute right-sided muscle weakness (Acute) Acute CVA (cerebrovascular accident) (Acute) Status migrainosus (Acute) Stroke (Chronic) Dyspepsia (Acute) Acute febrile illness (Acute) Nephrolithiasis (Chronic) Scoliosis (Chronic) PTSD (post-traumatic stress disorder) (Chronic) History of intravenous drug abuse (Chronic) Depression (Chronic) Asthma (Chronic) Migraine headache with aura (Chronic ~2000) Hepatitis C infection (Chronic) Chronic daily headache (Chronic) Opioid dependence in controlled environment (Chronic) Medical History?(Updated 07/28/21 @ 19:12 by Rosie Hdez MD) ADD (attention deficit disorder) Aneurysm of ophthalmic artery L, s/p stentAtrial septal aneurysm Blood bacterial culture positive Chronic pain Chronic systolic CHF (congestive heart failure) [place] [facility] [place] Fibromyalgia Intracranial aneurysm Seizures Spondylosis of lumbar spine SVT (supraventricular tachycardia) S/p ablationTherapeutic opioid induced constipation Surgical History? 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 Independent with no AD, uses SPC occasionally. 2-3 steps to enter. Fell once in the past 12 months. Equipment Owned/DME: SPC Subjective: Reports headache at 8/10 at rest and with ambulation. States that she feels like she is almost back to baseline at time of evaluation. Willing to try out SPC after walking with FWW. Wondering if she can take a single point cane home. Objective: General Observation: Seated at edge of bed. High BMI. Telemetry monitoring in place. Mental Status: Alert and oriented as to person, place, time, and purpose. Able to pay attention, focus, and respond appropriately. Pain: 8/10 headache Vital Signs: WNL as closely monitored by nursing staff ROM: Right Upper Extremity: Shoulder Flexion 90 degrees. Shoulder abduction 90 degrees . Elbow flexion WFL. Wrist flexion WFL. Functional opening and closing of hand WFL. Left Upper Extremity: Shoulder Flexion 90 degrees. Shoulder abduction 90 degrees . Elbow flexion WFL. Wrist flexion WFL. Functional opening and closing of hand WFL. Right Lower Extremity: Hip flexion unable beyond 90 while seated at edge of bed. Hip abduction Hip flexion unable beyond 90 while seated at edge of bed. Knee flexion WFL. Ankle dorsiflexion WFL. Ankle plantarflexion WFL. Left Lower Extremity: Hip flexion unable beyond 90 while seated at edge of bed. Hip abduction Hip flexion unable beyond 90 while seated at edge of bed. Knee flexion WFL. Ankle dorsiflexion WFL. Ankle plantarflexion WFL. Strength: Right Upper Extremity: Shoulder flexors 3-/5. Shoulder abductors 3-/5. Elbow flexors 5/5. Elbow extensors 5/5. Car Refinisher strong. Left Upper Extremity: Shoulder flexors 3-/5. Shoulder abductors 3-/5. Elbow flexors 4-/5. Elbow extensors 4-/5. Car Refinisher weaker than R but functional. Right Lower Extremity: Hip flexors 3-/5. Hip abductors 4/5. Knee flexors 4/5. Knee extensors 4/5. Ankle dorsiflexors 4/5. Ankle plantarflexors 4/5. Left Lower Extremity: Hip flexors 3-/5. Hip abductors 4-/5. Knee flexors 3+/5. Knee extensors 3+/5. Ankle dorsiflexors 4-/5. Ankle plantarflexors 4-/5. Bed Mobility/Transfers: Rolling with independence Supine to sit with independence Sit to supine with supervision Sit to stand with supervision Stand to sit with supervision Bed to toilet seat with supervision Toilet seat to back to bed supervision Bed to reclining chair with supervision Gait: Instructed patient with level surface ambulation of 50 feet requiring stand by assist. Daly decreased. No loss of balance. No shortness of breath. No path deviation. Balance: Static Sitting: Normal Dynamic Sitting: Normal Static Standing: Good fair Dynamic Standing: Special Tests: Mobility Limitations Standardized Measure [facility] AM-PAC 6 clicks Basic Mobility Inpatient Short Form: Raw Score: 23 CMS Score: 11% deficit Informed Consent/Education: Patient was instructed in purpose of PT consult and plan of care. Agreeable to proceed with established PT POC to achieve personal goals. ASSESSMENT: Chronic L-sided hemiparesis severity almost back to baseline. Patient only requiring supervision assist with ambulation using single-point cane. Limited only by headache. 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 No tonal issues in L UE/LE. No perceptual deficits seen. No reports of back pain. Patient presents with clinical signs and symptoms consistent with current/admitting diagnoses that have resulted to mobility limitations, gait instability, generalized weakness, and overall ADL decline as demonstrated by the following impairment level findings: 1. Decreased strength to B shoudler muscles and L UE/LE major muscle groups 2. Impaired activity tolerance 4. Limitation of joint range of motion in B shoulders 5. Headache Impairments are contributing to the following functional limitations: 1. Difficulty with ambulation without AD 2. Increased completion time for mobility ADL performance 3. Increased risk for falls Patient is assessed as a 27158 moderate complexity based on the following: History: 30-year-old female with past medical history as indicated above Examination: Demonstrable impairment in strength, balance, and mobility level with underlying impairments and functional limitations as exhibited above as well as deficit score of 11% utilizing the [facility] Mobility Inpatient Short Form Presentation: Evolving Decision Makin moderate complexity Goals: Goals X1 week 1. Supine-Sit independent 2. Sit-Supine independent 3. Sit-Stand independent 4. Stand-Sit independent with SPC 5. Bed-Chair independent with SPC 6. Chair-Bed independent with SPC 7. Independent gait on level surface with use of SPC for at least 300 feet without report of pain nor dyspnea 8. Independent stair negotiation while holding onto 1 rails for at least 3 steps without report of pain nor dyspnea 9. Independent with home exercise program 10. Good static and dynamic standing balance/tolerance Plan of Care/Treatment Plan: 1-2x/day, 7 days/week x 1 week. Plan of care has been reviewed with the AUTOMATION ARCHITECT providing the service under Physical Therapy direction. Initiate Physical Therapy intervention for pain management as needed, strengthening, bed mobility, transfers, gait, stairs, balance training, and use of assistive device. DISCHARGE RECOMMENDATIONS: [] Home with no services [] [X] Home with services. Home when medically cleared by hospitalist. Patient will benefit from home health PT services in order to progress mobility level using least restrictive assistive ambulatory device, assess home safety, identify additional equipment needs, and establish a functional maintenance program that will increase ability of patient to remain at home. [] Home with outpatient PT [] [] SNF for continued rehabilitation [] [] Quality Assurance Nurse Care [] [] SNF versus LTC based on ability to participate and progress [] TREATMENT CODE/TIME: 35626 x 18 minutes beginning at 10:14 AM. Thank you for the opportunity to participate in the care of this patient. Kandice Holder PT, DPT, CLT [facility] [place], [place]
--- NOTE | 2021-07-29 11:01 | SP_ITS ---
Date of service: 07/29/21 Time of Service: 11:01 Subjective Patient received awake, yet lethargic, agreeable to evaluation, seated upright in chair. Reports continued headache. Able to communicate wants/needs effectively; RN reports patient has slurred speech, takes a minute to think to get ideas out; some coughing with meals. Patient is able to demonstrate comprehension of recommendations for safe p.o. intake upon discharge once deemed medically stable, including recommendation for outpatient VFSE/MBSS with [facility] department. Objective Objective Clinical (Bedside) Swallow Evaluation Speech Language Pathology HPI: Pt is a 30 year-old young woman with opiate dependence and previous IV drug abuse currently sober, hypertension, pre-diabetes, depression, fibromyalgia, severe scoliosis status post Tejeda sonya and thoracic fusion in 2007, AV node ablation for SVT in 2014, PTSD, ADHD, migraine headaches, GERD, and hepatitis C. She also has an large PFO, cerebral aneursysms, and prior strokes. She presented to the ER today reporting increased left hemiparesis compared to baseline, dysarthria, and headache since waking up yesterday. She apparently had a regularly scheduled appointment at her PCP's office today during which she was noted to be somnolent and at times hypoxic such that she was directed to the ER. In the ER, she was somnolent and intermittently hypoxic in the 80s for which she was placed on O2. She underwent the work-up as below. During her time in the ER, she remained quite somnolent, however, her left hemiparesis did improve. [facility] consulted by Dr. Hdez for CSE and communication evaluation, given Ddx at time of admission for TIA vs migraine vs seizure. Precautions: Fall, Standard, Full code ? PFSH All Active Problems?(Updated 07/28/21 @ 19:12 by Rosie Hdez MD) Discharge planning issues (Acute) DVT prophylaxis (Acute) Hypoxia (Acute) Left hemiparesis (Acute) Nodule of right lobe of thyroid gland (Acute) Brain TIA (Acute) Altered mental status (Acute) Lumbosacral spondylosis without myelopathy (Acute) CVA (cerebrovascular accident) (Chronic) TIA (transient ischemic attack) (Acute) Bacterial pneumonia (Acute) Opioid dependence (Chronic) QT prolongation (Acute) Pneumonia due to COVID-19 virus (Acute) Allergic reaction (Acute) Medication overuse headache (Acute) Chronic headache (Chronic) PFO (patent foramen ovale) (Chronic) Hypersomnia (Acute) Altered mental status (Acute) Abnormal movements (Acute) Right hemiparesis (Acute) Discharge planning issues (Acute) DVT prophylaxis (Acute) Back pain (Acute) Atypical chest pain (Acute) Acute focal neurological deficit (Acute) Stroke-like symptom (Acute) Acute right-sided muscle weakness (Acute) Acute CVA (cerebrovascular accident) (Acute) Status migrainosus (Acute) Stroke (Chronic) Dyspepsia (Acute) Acute febrile illness (Acute) Nephrolithiasis (Chronic) Scoliosis (Chronic) PTSD (post-traumatic stress disorder) (Chronic) History of intravenous drug abuse (Chronic) Depression (Chronic) Asthma (Chronic) Migraine headache with aura (Chronic ~2000) Hepatitis C infection (Chronic) Chronic daily headache (Chronic) Opioid dependence in controlled environment (Chronic) Medical History?(Updated 07/28/21 @ 19:12 by Rosie Hdez MD) ADD (attention deficit disorder) Aneurysm of ophthalmic artery L, s/p stentAtrial septal aneurysm Blood bacterial culture positive Chronic pain Chronic systolic CHF (congestive heart failure) [facility] [place] [place] [facility] Fibromyalgia Intracranial aneurysm Seizures Spondylosis of lumbar spine SVT (supraventricular tachycardia) S/p ablationTherapeutic opioid induced constipation Surgical History? H/O lithotripsy History of History of cerebral aneurysm repair (~2014) S/P cystoscopy with ureteral stent placement S/P tubal ligation Status post ablation operation for arrhythmia SVTStatus post thoracic spinal fusion Family History? Paternal Aunt?? Cerebral aneurysm Diabetes HypertensionMaternal Aunt MigrainesMaternal Grandmother Heart disease Hypertension MigrainesPaternal Grandmother Heart disease DiabetesFather Diabetes HypertensionMaternal Grandfather DiabetesPaternal Uncle Diabetes HypertensionPaternal Grandfather HypertensionBrother MigrainesMother Migraines Social History? Smoking/Tobacco Use Status:? Current every day Tobacco Type: cigarettes Quit status:? considering quitting Smoking risk assessment performed?:? Yes (0.5 ppd) Alcohol Intake:? former Details:? pt reports social use Drug use:? Current Sobriety Substance use type:? former substance user, marijuana, crack/cocaine, heroin, opiates and IV drugs Details:? former heroin and cocaine user, 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 only drugs that she uses currently is marijuana Household members:? none Number of Children:? 3 Do you feel safe at home:? Yes Do you feel safe in your relationship?:? Yes History History ? ? ? 2 ? Para ? ? ? 3 Hx # Term Pregnancies ? ? ? 2 ? Multiple births ? Hx # Pregnancies ? Ectopic pregnancies ? AB induced ? Hx Number of Living Children ? ? ? 3 AB spontaneous ? Visit Medication and Allergies Active Medications Generic Name Dose Route Start Last Admin ? Trade Name Freq? PRN Reason Stop Dose Admin Acetaminophen ?0 mg ?07/28/21 15:04 ? ? Acetaminophen 325 Mg Tab ?PO ?Q4H PRN PRN ? ? Al Hydrox/Mg Hydrox/Simethicone ?30 ml ?07/28/21 15:04 ? ? Mylanta Suspension 30 Ml Cup ?PO ?Q2H PRN PRN ? ? Albuterol Sulfate ?2.5 mg ?07/28/21 15:04 ? ? Albuterol 2.5 Mg/3 Ml Inh Soln Vial ?UPD ?Q2H PRN PRN ? ? Dimethicone/Zinc Oxide ?0 gm ?07/28/21 14:59 ? ? Sharon Protect Cream 142 Gm Tube ?TP ?PRN PRN ? ? Docusate Sodium ?100 mg ?07/28/21 15:04 ? ? Docusate Sodium 100 Mg Cap ?PO ?TID PRN PRN ? ? Heparin Sodium (Porcine) ?5,000 units ?07/28/21 18:00 ? ? Heparin 5,000 Units/Ml Vial ?SC ?Q8H SAMIR ? ? Sodium Chloride ?500 mls @ 0 mls/hr ?07/28/21 09:14 ? ? Saline 500ml Bag ?IV ?PRN PRN ?As Directed ? ? IV Miscellaneous Supplies ?1 each ?07/28/21 09:15 ? ? Iv Access ?IV ? DIRECTED SAMIR ? ? Iohexol ?100 ml ?07/28/21 10:30 ?07/28/21 10:26 ? Omnipaque 350 Mg/Ml 100 Ml Btl ?IJ ?08/27/21 23:59 ?100 ml ? ? DIRECTED SAMIR ? ?Administration Magnesium Hydroxide ?30 ml ?07/28/21 15:04 ? ? Milk Of Magnesia 30 Ml Cup ?PO ?DAILY PRN PRN ? ? Sodium Chloride ?0 ml ?07/28/21 09:14 ? ? Normal Saline Flush 10 Ml Syr ?IVP ?PRN PRN ? ? Allergies meperidine HCl [From Demerol] Allergy (Severe, Verified 07/28/21 09:54) Anaphylaxsisvenom-honey bee [bee venom (honey bee)] Allergy (Severe, Verified 07/28/21 09:54) anaphylaxislithium Adverse Reaction (Mild, Verified 07/28/21 09:54) NAUSEAsertraline HCl [From Zoloft] Adverse Reaction (Mild, Verified 07/28/21 09:54) NIGHTMARES ? Social History/Home Situation: Per chart review / Social Service note dated 05/05/21, pt has recent hx homelessness,?living at [facility], had been working with [employer] and has completed many subsidized housing applications. Pt currently reports that she lives with her friend and has for about a month now, is able to access transportation via [employer] as needed. Pt reports that she does have 3 children who are in the State's custody. ? OBJECTIVE: Predisposing dysphagia risk factors: recent hypoxia, hx (L) hemiparesis, Brain TIA, altered mental status, lumbosacral sypondylisis with myelopathy, CVA, bacterial pneumonia, opioid dependence Clinical signs of possible chronic dysphagia: reported cough with po intake, reports occasionally she does aspirate and this results in coughing fit Precipitating dysphagia risk factors / triggering event: see above. Patient appe ars to be at baseline with regard to dysphagia presentation. ? Temp: 97.2 F Sp02: 97% RR: 14, 2L oxygen via NC ? Cranial nerve exam / Oral Motor: CN V: facial sensation impaired on L to light touch labial protrusion symmetrical labial coordination/ROM mildly impaired Jaw excursion/lateralization intact mastication intact lingual/labial sensation intact suspect superior hyoid movement is reduced CN VII: lateral sulcus residue absent anterior spillage not observed salivation intact CN IX/X: palatal elevation - symmetrical Vocal Quality - hoarse; reports this is her baseline taste - WFL onset of swallow - suspect possible delay pharyngeal residue - suspect may be present nasopharyngeal regurgitation - denies CN XII: Intact b/l bolus preparation/manipulation/control - WFL AP transit - WFL lingual protrusion? symmetrical lingual ROM - grossly WFL lingual coordination -question ?mild impairment; also noted small L sided area redness lingual residue absent Oral hygiene appears adequate Language: occasional halting speech, occasionally requires additional processing time, otherwise verbal expression/fluency, naming, repetition, and auditory comprehension WFL Hearing: WFL Mental Status: AAOx3, recall of current events intact Speech: mild-moderately dysarthric, intelligible ? Laryngeal function exam: Secretions: WFL Vocal quality: WFL Pitch range: WFL Cough: (volitional) perceptually WFL ? PO intake IDDSI 0: thin liquids 3ml via cup (-) overt s/sx aspiration IDDSI 7: endorses difficulties with pharyngeal swallow onset with solid foods, (-) overt s/sx aspiration Pill/tablet: denies issues, (-) overt s/sx aspiration [place] Swallow Protocol: Pass Assessment Recommendations: Instrumentation: *outpatient VFSE/MBSS Diet Texture Modification(s): IDDSI Level(s) 7-Regular Solids, 0-Thin Liquids Medication Intake: Whole with 0-Thin Liquids or as tolerated Alter medications only as advised by MD or Pharmacist RISK MANAGEMENT: Oral hygiene BID/2x per day and before/after PO intake using friction with toothbrush on all oral structures as tolerated HOB upright as tolerated; upright for all PO intake. Encourage physical mobility as tolerated. Level of Assistance/Supervision: Independent Strategies/Adaptations/Assistive Equipment: Reduce auditory and/or visual distractions when eating, Small sips and bites when eating, Slow rate of intake, Alternate intake of liquids and solids, Sensory enhancement as needed to assist in swallow onset timing (ie, carbonation, flavor, texture, temperature), Small+frequent meals throughout day Posture/Positioning Needs: Maintain upright position at least 30 minutes after meals, Avoid meals/snacks 2- 3 hours prior to reclining/sleeping, Sleep with head of bed elevated to reduce likelihood of nocturnal reflux Therapy: On outpatient basis PRN Plan: - Patient is recommended for outpatient VFSE/MBSS with [facility] department to further assess oropharyngeal swallow and develop treatment plan of care as outlined. - No further acute [facility] services warranted at this time. Please re-consult as needed while on unit. Sabrina Espinosa MA [facility] Speech-Language Pathologist [phone] ? [facility] CPT Code: 12573 Clinical Swallowing Evaluation Coding Diagnoses Dysphagia R13.10 Assessment and Plan Assessment and plan (1) Dysphagia: Status: Acute Assessment and plan: IMPRESSIONS: Patient is at moderate risk for aspiration-related pulmonary complication at her baseline per clinical evaluation today, given adequate oral hygiene & presumed reduced immunocompetence given complex medical history, including pneumonia within past year; improvements in physical mobility and overall pulmonary function likely to further reduce this risk. Provided education to patient re: anatomy/physiology of swallowing mechanism, overt s/sx to monitor for re: potential aspiration of food / liquids, importance of thorough oral care, relationship between respiratory function changes and deglutition, as well as hx of CVA, TIA, information re: VFSE/MBSS and rationale Patient does not demonstrate overt s/sx aspiration with [place] Swallow Protocol, is able to express wants/needs appropriately with 85-90% intelligibility in context of mild-moderate dysarthria, with adequate comprehension by communication partners (ie medical staff per interview, conversation with this clinician). Patient does indicate relatively recent hx of PNA within past year and confirms history of stroke(s), reporting that she has had difficulties with swallowing since this has happened, but this has been her baseline for some time now; reports she will occasionally aspirate and go into coughing fit; also reports difficulties with swallow initiation (vs globus) with solid foods at times, particularly Level 7. - Patient is recommended for outpatient VFSE/MBSS with [facility] department to further assess oropharyngeal swallow and develop treatment plan of care as outlined, which patient is in agreement with. Communicated recommendations with RN, JUANA, also cc'd.
--- NOTE | 2021-07-29 11:56 | PGE_ITS ---
Date of Service Date of service: 07/29/21 Time of Service: 11:57 Assessment and Plan Assessment and plan (1) Left hemiparesis: Status: Acute (2) Altered mental status: Status: Acute (3) Chronic headache: Status: Chronic (4) Seizures: Assessment and plan: Ms. Ervin is a 30 year-old, right-handed woman with a complicated past medical history: #1. Admitted with acute on chronic left hemiparesis, with MRI brain showing no acute stroke. She was also noted to be somnolent as well as hypoxic - with all of her symptoms improving with time. Ddx includes: #1. Toxic-metabolic process (with recrudescence from prior strokes). She is on numerous centrally-acting medications with reported recent increase in methadone dose. #2. Seizure. #3. She also has risk factors for sleep apnea which could be contributing - she has an outpatient Sleep Clinic appt upcoming. Honestly, I wonder if her symptoms/presentation aren't due to a combination of all of these. -Consider reducing centrally acting medications -EEG has been started and will be worn overnight. Prelim read by me shows intermittent slowly consistent with encephalopathy. Full report tomorrow. -Continue topiramate 50mg BID for both seizure prevention and headache prevention x1 week, then increase to 100mg BID. -For acute headache treatment, can use Compazine 5-10mg q8hr prn - consider PO since she refused IM. She previously seemed to respond to IV Depakote 500mg TID prn and IV Mag 1gm TID prn (latter must be given quickly over 20min to be effective). Triptans are contraindicated due to history of stroke. Would avoid fioricet/fiorinal. -Continue ASA +clopidogrel for stroke prevention. She has f/up scheduled with Vascular Neurologist Dr. Garza at [facility] on 08/25/21. She should follow-up with me for management of headaches and further work-up of seizures in 4-6 weeks. Subjective Subjective Interval history since last seen: Patient out of room for testing at this time. Hypoxic overnight. Back to baseline per OT. Will see her later this afternoon. I was able to see Ghada this afternoon around 1645. She notes improved left hemiparesis, but not quite back to baseline. She has been reportedly more alert today, however, she tells me she is still very sleepy/tired. Her headache has improved but is still present. She told me that she was to be given medication yesterday but then they didn't give it to her. Chart notes indicate she refused the IM Compazine. Seen and discharged by PT -with a cane - and OT. ST evaluated her and recommend outpatient VFSE/MBSS with [facility] department. She had a TTE today which was unremarkable. She was not assessed for shunt. Exam Narrative Exam Narrative: Physical Exam: Constitutional: Patient of apparent stated age, well nourished, well developed, no acute distress; Neuro: MS/Language/Speech: Alert, oriented, clear language (fluency and comprehension), no dysarthria Motor: Normal bulk and tone. FMM intact, no pronator drift. 5/5 strength in bilateral upper and lower extremities. Sensation: reduced to light touch left hemibody Coordination: Finger to nose performed without dysmetria Objective Last Vital Signs Temp 97.2 F L 07/29/21 11:19 Pulse 78 07/29/21 11:19 Resp 14 07/29/21 11:19 BP 150/96 H 07/29/21 11:19 Pulse Ox 97 07/29/21 11:19 Laboratory Results - last 24 hr 07/28/21 07/28/21 07/29/21 10:10 12:15 06:50 WBC RBC Hgb Hct MCV MCH MCHC RDW Plt Count MPV Immature Gran % Neutrophils % Lymphocytes % Monocytes % Eosinophils % Basophils % Nucleated RBC % Absolute Neutrophils Absolute Lymphocytes Absolute Monocytes Absolute Eosinophils Absolute Basophils Sodium Potassium Chloride Carbon Dioxide Anion Gap BUN Creatinine Estimated GFR/1.73 m2 Glucose Hemoglobin A1c Calcium Magnesium 2.0 Troponin I < 50 NT-Pro-B Natriuret Pep 88 Triglycerides 115 Total Cholesterol 161 LDL Cholesterol, Calc 90 HDL Cholesterol 48 TSH 0.45 SARS-CoV-2 (PCR) Negative 07/29/21 07/29/21 07/29/21 06:50 06:50 06:50 WBC 6.72 RBC 3.98 Hgb 9.5 L Hct 33.7 L MCV 84.7 MCH 23.9 L MCHC 28.2 L RDW 15.9 H Plt Count 246 MPV 10.7 Immature Gran % 0.4 Neutrophils % 57.3 Lymphocytes % 30.4 Monocytes % 7.9 Eosinophils % 3.7 Basophils % 0.3 Nucleated RBC % 0 Absolute Neutrophils 3.85 Absolute Lymphocytes 2.04 Absolute Monocytes 0.53 Absolute Eosinophils 0.25 Absolute Basophils 0.02 Sodium 139 Potassium 3.8 Chloride 103 Carbon Dioxide 34.8 H Anion Gap 1.2 L BUN 20 H Creatinine 0.8 Estimated GFR/1.73 m2 >= 60.00 Glucose 146 H Hemoglobin A1c 7.0 H Calcium 8.3 L Magnesium Troponin I NT-Pro-B Natriuret Pep Triglycerides Total Cholesterol LDL Cholesterol, Calc HDL Cholesterol TSH SARS-CoV-2 (PCR)
[2021-07-29] MEDS: Pregabalin 50 MG CAP 150 MG PO ×2 (12:26→22:20)
[2021-07-29] MEDS: Mylanta Suspension 30 ML CUP PO (14:58)
--- NOTE | 2021-07-29 14:58 | W.PM.DS.N ---
Date of service: 07/29/21 Time of Service: 14:58 DS: Diagnosis Discharge Diagnosis (1) Dysphagia: Status: Acute Discharge Plan Disposition Condition: Serious Discharge Details Reason For Visit: Recurrent L Sided Weakness Admit Date/Time: 07/28/21 15:02 Admit Provider: Rosie Hdez Attending Provider: Rosie Hdez Primary Care Provider: Frances Sorensen Home Meds and New Rx's Prescriptions: No Action Vyvanse 40 mg capsule 50 mg PO DAILY 0RF olanzapine 5 mg tablet 15 mg PO HS 0RF paroxetine HCl [Paxil] 10 mg Tablet 20 mg PO HS 0RF albuterol sulfate 90 mcg/actuation Hfa Aerosol Inhaler 2 puff INHALATION Q4H PRN0RF docusate sodium [Docusil] 100 mg capsule 100 mg PO DAILY Qty: 60 0RF sennosides [Senna Laxative] 8.6 mg tablet 17.2 mg PO DAILY 0RF Label Comments: TAKE TWO TABLETS BY MOUTH EVERY DAY methadone 10 mg/5 mL Solution 90 mg PO DAILY 0RF polyethylene glycol Powder 17 pwd MISCELLANEOUS DAILY PRN0RF clopidogrel [Plavix] 75 mg tablet 75 mg PO DAILY Qty: 60 0RF aspirin [Aspir-81] 81 mg Tablet,Delayed Release (Dr/Ec) 81 mg PO DAILY 0RF hydroxyzine HCl 25 mg Tablet 25 mg PO TID PRN0RF lisinopril 5 mg Tablet 5 mg PO DAILY 0RF metoprolol succinate 25 mg Tablet Extended Release 24 Hr 50 mg PO DAILY 0RF naproxen 375 mg Tablet,Delayed Release (Dr/Ec) 375 mg PO BID 0RF cyclobenzaprine 5 mg Tablet 5 mg PO BID 0RF fluticasone propion-salmeterol [Advair Diskus] 500-50 mcg/dose blister with device 1 inh INHALATION BID 0RF diclofenac sodium 1 % gel 1 applic TOPICAL QID 0RF Label Comments: APPLY A SMALL AMOUNT TO AFFECTED AREA FOUR TIMES A DAY NEEDED - MAX TOTAL BODY DOSE ( ALL COMBINED AREAS) 32 GRAMS PER DAY ibuprofen 400 mg Tablet 400 - 800 mg PO Q8H PRN0RF acetaminophen 500 MG tablet 650 mg PO Q6H 0RF epinephrine 0.3 mg/0.3 mL auto-injector 0.3 mg IM ONCE PRN0RF Rx Instructions: as a single dose; may repeat once pregabalin 75 mg capsule 75 mg PO DAILY 0RF Label Comments: TAKE ONE CAPSULE BY MOUTH EVERY DAY pregabalin 150 mg capsule 150 mg PO BID 0RF Label Comments: TAKE 1 CAP BY MOUTH TWO TIMES A DAY DS: Data Vitals/I&O Vitals and I&O: Vital Signs Temperature 36.2 C L 07/29/21 11:19 Temperature Source Skin 07/29/21 11:19 Pulse 78 07/29/21 11:19 Pulse Rhythm Regular 07/29/21 08:30 Pulse 84 07/28/21 14:00 Respiratory Rate 14 07/29/21 11:19 Respiratory Effort 07/29/21 08:30 Respiratory Depth Normal 07/29/21 08:30 Respiratory Pattern Normal 07/29/21 08:30 Blood Pressure 150/96 H 07/29/21 11:19 Blood Pressure Mean 71 07/28/21 14:00 Pulse Oximetry 97 07/29/21 11:19 Oxygen Delivery Method Nasal Cannula 07/29/21 11:19 Oxygen Flow Rate 2 07/29/21 11:19 Pain Level 5 07/29/21 11:19 Comment 07/28/21 08:53 Intake & Output 07/28/21 07/29/21 07/29/21 23:59 11:59 23:59 Intake Total 120 / 630 120 / 120 0 / 120 Output Total 590 / 890 1500 / 1500 Balance -470 / -260 -1380 / -1380 0 / -1380 Weight 124.2 kg Intake: Oral 120 / 120 120 / 120 0 / 120 Output: Urine 590 / 890 1500 / 1500 Other: Urine Color Yellow Light Darlene Urine Appearance Clear Cloudy Urine Odor Normal Normal Voiding Methods Toilet Toilet Data Completed and Pending Labs on day of discharge: Labs from last 24 hours 07/29/21 07/29/21 07/29/21 06:50 06:50 06:50 WBC 6.72 RBC 3.98 Hgb 9.5 L Hct 33.7 L MCV 84.7 MCH 23.9 L MCHC 28.2 L RDW 15.9 H Plt Count 246 MPV 10.7 Immature Gran % 0.4 Neutrophils % 57.3 Lymphocytes % 30.4 Monocytes % 7.9 Eosinophils % 3.7 Basophils % 0.3 Nucleated RBC % 0 Absolute Neutrophils 3.85 Absolute Lymphocytes 2.04 Absolute Monocytes 0.53 Absolute Eosinophils 0.25 Absolute Basophils 0.02 Sodium 139 Potassium 3.8 Chloride 103 Carbon Dioxide 34.8 H Anion Gap 1.2 L BUN 20 H Creatinine 0.8 Estimated GFR/1.73 m2 >= 60.00 Glucose 146 H Hemoglobin A1c 7.0 H Calcium 8.3 L Magnesium NT-Pro-B Natriuret Pep Triglycerides Total Cholesterol LDL Cholesterol, Calc HDL Cholesterol TSH 07/29/21 06:50 WBC RBC Hgb Hct MCV MCH MCHC RDW Plt Count MPV Immature Gran % Neutrophils % Lymphocytes % Monocytes % Eosinophils % Basophils % Nucleated RBC % Absolute Neutrophils Absolute Lymphocytes Absolute Monocytes Absolute Eosinophils Absolute Basophils Sodium Potassium Chloride Carbon Dioxide Anion Gap BUN Creatinine Estimated GFR/1.73 m2 Glucose Hemoglobin A1c Calcium Magnesium 2.0 NT-Pro-B Natriuret Pep 88 Triglycerides 115 Total Cholesterol 161 LDL Cholesterol, Calc 90 HDL Cholesterol 48 TSH 0.45 Preliminary micro results at discharge 07/28/21 11:10 Urine Culture - Preliminary Urine - Reflex from Ua Escherichia coli PFSH All Active Problems (Updated 07/29/21 @ 11:26 by Sabrina Espinosa) Dysphagia (Acute) Discharge planning issues (Acute) DVT prophylaxis (Acute) Hypoxia (Acute) Left hemiparesis (Acute) Nodule of right lobe of thyroid gland (Acute) Brain TIA (Acute) Altered mental status (Acute) Lumbosacral spondylosis without myelopathy (Acute) CVA (cerebrovascular accident) (Chronic) TIA (transient ischemic attack) (Acute) Bacterial pneumonia (Acute) Opioid dependence (Chronic) QT prolongation (Acute) Pneumonia due to COVID-19 virus (Acute) Allergic reaction (Acute) Medication overuse headache (Acute) Chronic headache (Chronic) PFO (patent foramen ovale) (Chronic) Hypersomnia (Acute) Altered mental status (Acute) Abnormal movements (Acute) Right hemiparesis (Acute) Discharge planning issues (Acute) DVT prophylaxis (Acute) Back pain (Acute) Atypical chest pain (Acute) Acute focal neurological deficit (Acute) Stroke-like symptom (Acute) Acute right-sided muscle weakness (Acute) Acute CVA (cerebrovascular accident) (Acute) Status migrainosus (Acute) Stroke (Chronic) Dyspepsia (Acute) Acute febrile illness (Acute) Nephrolithiasis (Chronic) Scoliosis (Chronic) PTSD (post-traumatic stress disorder) (Chronic) History of intravenous drug abuse (Chronic) Depression (Chronic) Asthma (Chronic) Migraine headache with aura (Chronic ~2000) Hepatitis C infection (Chronic) Chronic daily headache (Chronic) Opioid dependence in controlled environment (Chronic) Medical History (Updated 07/29/21 @ 11:26 by Sabrina Espinosa) ADD (attention deficit disorder) Aneurysm of ophthalmic artery L, s/p stent Atrial septal aneurysm Blood bacterial culture positive Chronic pain Chronic systolic CHF (congestive heart failure) EF 50% in 08/2018 - [facility] [place] acquired bacterial pneumonia Fibromyalgia Intracranial aneurysm Seizures Spondylosis of lumbar spine SVT (supraventricular tachycardia) S/p ablation Therapeutic opioid induced constipation Surgical History H/O lithotripsy History of History of cerebral aneurysm repair (~2014) S/P cystoscopy with ureteral stent placement S/P tubal ligation Status post ablation operation for arrhythmia SVT Status post thoracic spinal fusion Family History Paternal Aunt Cerebral aneurysm Diabetes Hypertension Maternal Aunt Migraines Maternal Grandmother Heart disease Hypertension Migraines Paternal Grandmother Heart disease Diabetes Father Diabetes Hypertension Maternal Grandfather Diabetes Paternal Uncle Diabetes Hypertension Paternal Grandfather Hypertension Brother Migraines Mother Migraines Social History Smoking/Tobacco Use Status: Current every day Tobacco Type: cigarettes Quit status: considering quitting Smoking risk assessment performed?: Yes (0.5 ppd) Alcohol Intake: former Details: pt reports social use Drug use: Current Sobriety Substance use type: former substance user, marijuana, crack/cocaine, heroin, opiates and IV drugs Details: former heroin and cocaine user, 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 only drugs that she uses currently is marijuana Household members: none Number of Children: 3 Do you feel safe at home: Yes Do you feel safe in your relationship?: Yes History History 2 Para 3 Hx # Term Pregnancies 2 Multiple births Hx # Pregnancies Ectopic pregnancies AB induced Hx Number of Living Children 3 AB spontaneous
--- NOTE | 2021-07-29 15:12 | PTTR_ITS ---
Date of service: 07/29/21 Time of Service: 14:45 PT Notes Visit Reasons: Recurrent L Sided Weakness Inpatient Physical Therapy Treatment Note [facility] Date: 07/29/2021 PRECAUTIONS: Fall, Activity as tolerated SUBJECTIVE: Ghada states that she is feeling much better than when she came to the hospital. She does report significant fatigue, and states that she hopes to be discharged to home today. She reports feeling that she is at her baseline level of function. She is pleasant and agreeable to participating in PT. OBJECTIVE: Patient was issued SPC and completed [facility] form which was submitt ed to Care Management. PAIN: No c/o pain BED MOBILITY/TRANSFERS Supine-sit: I Sit-supine: I Sit-stand: I Stand-sit: I Bed-Chair: I Chair-bed: I GAIT Assistive Device: SPC Weight bearing: Full Assist: I Distance: 350' Deviation: None STAIRS: Up/down 3x4 and 2x6 using SPC and a step-to pattern with supervision ASSESSMENT: Patient tolerated session well without complaint. She was able to tolerate a progression in gait distance with SPC support demonstrating appropriate gait and pacing and improved safety. PLAN: Patient to discharge to home later today, per provider. TREATMENT CODE/TIME: 15 minutes; 11251 (14:45)
--- NOTE | 2021-07-29 15:30 | CHAPLAIN ---
Ghada was resting in bed and her room was dark when I visited. She said she is mostly tired and wanting to sleep. We had a brief visit.
--- NOTE | 2021-07-29 17:00 | INDS_ITS ---
Date of service: 07/29/21 PT Notes Visit Reasons: Recurrent L Sided Weakness Physical Therapy Discharge Summary Date: 07/29/2021 Dates of Service: 07/29/2021 only Referring Doctor:? Rosie Hdez MD PT Orders: PT CONSULT: Limited sbility Precautions: Fall. Standard. Activity as tolerated. Seizure-prone. Patient Profile/Admitting Diagnosis:? Ghada is a 30-year-old female with past medical history significant for CVA, PFO, spinal fusion, opiate dependence and previous IV use who presented to the ED on 07/28/2021 with increasing L-side weakness, slurred speech, headache, and increasing somnolence.? Patient is diagnosed with acute on chronic L hemiparesis, altered mental status, chrininc headache, and seizures. PMHX: All Active Problems?(Updated 07/28/21 @ 19:12 by Rosie Hdez MD) Discharge planning issues (Acute) DVT prophylaxis (Acute) Hypoxia (Acute) Left hemiparesis (Acute) Nodule of right lobe of thyroid gland (Acute) Brain TIA (Acute) Altered mental status (Acute) Lumbosacral spondylosis without myelopathy (Acute) CVA (cerebrovascular accident) (Chronic) TIA (transient ischemic attack) (Acute) Bacterial pneumonia (Acute) Opioid dependence (Chronic) QT prolongation (Acute) Pneumonia due to COVID-19 virus (Acute) Allergic reaction (Acute) Medication overuse headache (Acute) Chronic headache (Chronic) PFO (patent foramen ovale) (Chronic) Hypersomnia (Acute) Altered mental status (Acute) Abnormal movements (Acute) Right hemiparesis (Acute) Discharge planning issues (Acute) DVT prophylaxis (Acute) Back pain (Acute) Atypical chest pain (Acute) Acute focal neurological deficit (Acute) Stroke-like symptom (Acute) Acute right-sided muscle weakness (Acute) Acute CVA (cerebrovascular accident) (Acute) Status migrainosus (Acute) Stroke (Chronic) Dyspepsia (Acute) Acute febrile illness (Acute) Nephrolithiasis (Chronic) Scoliosis (Chronic) PTSD (post-traumatic stress disorder) (Chronic) History of intravenous drug abuse (Chronic) Depression (Chronic) Asthma (Chronic) Migraine headache with aura (Chronic ~2000) Hepatitis C infection (Chronic) Chronic daily headache (Chronic) Opioid dependence in controlled environment (Chronic) Medical History?(Updated 07/28/21 @ 19:12 by Rosie Hdez MD) ADD (attention deficit disorder) Aneurysm of ophthalmic artery L, s/p stentAtrial septal aneurysm Blood bacterial culture positive Chronic pain Chronic systolic CHF (congestive heart failure) [place] [facility] [place] Fibromyalgia Intracranial aneurysm Seizures Spondylosis of lumbar spine SVT (supraventricular tachycardia) S/p ablationTherapeutic opioid induced constipation Surgical History? 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 Independent with no AD, uses SPC occasionally.? 2-3 steps to enter.? Fell once in the past 12 months. Equipment Owned/DME: SPC Subjective: NT. See most recent [employer] OPERATIONS MANAGER notes. Objective: General Observation: NT. See most recent BI[employer] OPERATIONS MANAGER notes. Mental Status: NT. See most recent BI[employer] OPERATIONS MANAGER notes. Pain:NT. See most recent [employer] OPERATIONS MANAGER notes. Vital Signs: NT. See most recent [employer] OPERATIONS MANAGER notes. ROM: Right Upper Extremity: ? Shoulder Flexion 90 degrees. Shoulder abduction 90 degrees . Elbow flexion WFL. Wrist flexion WFL. Functional opening and closing of hand WFL. Left Upper Extremity:? Shoulder Flexion 90 degrees. Shoulder abduction 90 degrees . Elbow flexion WFL. Wrist flexion WFL. Functional opening and closing of hand WFL. Right Lower Extremity: Hip flexion unable beyond 90 while seated at edge of bed. Hip abduction Hip flexion unable beyond 90 while seated at edge of bed. Knee flexion WFL. Ankle dorsiflexion WFL. Ankle plantarflexion WFL. Left Lower Extremity: Hip flexion unable beyond 90 while seated at edge of bed. Hip abduction Hip flexion unable beyond 90 while seated at edge of bed. Knee flexion WFL. Ankle dorsiflexion WFL. Ankle plantarflexion WFL. Strength: Right Upper Extremity: Shoulder flexors 3-/5. Shoulder abductors 3-/5. Elbow flexors 5/5. Elbow extensors 5/5. Computerized Machine Fabric Cutter strong. Left Upper Extremity: Shoulder flexors 3-/5. Shoulder abductors 3-/5. Elbow flexors 4-/5. Elbow extensors 4-/5. Computerized Machine Fabric Cutter weaker than R but functional. Right Lower Extremity: Hip flexors 3-/5. Hip abductors 4/5. Knee flexors 4/5. Knee extensors 4/5. Ankle dorsiflexors 4/5. Ankle plantarflexors 4/5. Left Lower Extremity: Hip flexors 3-/5. Hip abductors 4-/5. Knee flexors 3+/5. Knee extensors 3+/5. Ankle dorsiflexors 4-/5. Ankle plantarflexors 4-/5. Bed Mobility/Transfers: Rolling with independence Supine to sit with independence Sit to supine with supervision Sit to stand with? supervision Stand to sit with? supervision Bed to toilet seat with supervision Toilet seat to back to bed supervision Bed to reclining chair with supervision Gait: Independent with SPC for 350 feet. Up and down 3 x 4 and 2 X 6 without rails. Balance: Static Sitting: Normal Dynamic Sitting: Normal Static Standing: Good Dynamic Standing: Fair ASSESSMENT: Chronic L-sided hemiparesis severity almost back to baseline.? Patient only requiring supervision assist with ambulation using single-point cane.? Limited only by headache.? 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 No tonal issues in L UE/LE.? No perceptual deficits seen. No reports of back pain. Patient presents with clinical signs and symptoms consistent with current/admitting diagnoses that have resulted to mobility limitations, gait instability, generalized weakness, and overall ADL decline as demonstrated by the following impairment level findings: 1.? Decreased strength to B shoudler muscles and L UE/LE major muscle groups 2.? Impaired activity tolerance 4.? Limitation of joint range of motion in B shoulders 5.? Headache Impairments are contributing to the following functional limitations: 1.? Difficulty with ambulation without AD 2.? Increased completion time for mobility ADL performance 3.? Increased risk for falls Patient is assessed as a [id number] moderate complexity based on the following: History: 30-year-old female with past medical history as indicated above Examination: Demonstrable impairment in strength, balance, and mobility level with underlying impairments and functional limitations as exhibited above as well as deficit score of 11% utilizing the [facility] Mobility Inpatient Short Form Presentation: Evolving Decision Makin moderate complexity Goals: Goals X1 week 1. Supine-Sit independent MET 2. Sit-Supine independent MET 3. Sit-Stand independent MET 4. Stand-Sit independent with SPC MET 5. Bed-Chair independent with SPC MET 6. Chair-Bed independent with SPC MET 7. Independent gait on level surface with use of SPC for at least 300 feet without report of pain nor dyspnea MET 8. Independent stair negotiation while holding onto 1 rails for at least 3 steps without report of pain nor dyspnea MET 9. Independent with home exercise program MET 10. Good static and dynamic standing balance/tolerance MET DISCHARGE RECOMMENDATIONS: [] ? Home with no services [] [X] ? Home with services.? Home when medically cleared by hospitalist.? Patient will benefit from home health PT services in order to progress mobility level using least restrictive assistive ambulatory device, assess home safety, identify additional equipment needs, and establish a functional maintenance program that will increase ability of patient to remain at home. [] ? Home with outpatient PT [] [] ? SNF for continued rehabilitation [] [] ? Legal Billing Coordinator Care [] [] ? SNF versus LTC based on ability to participate and progress [] TREATMENT CODE/TIME: NC Thank you for the opportunity to participate in the care of this patient. Kandice Holder PT, DPT, CLT [facility] [place], [place]
[2021-07-29] MEDS: Acetaminophen 325 MG TAB PO (17:06)
--- NOTE | 2021-07-29 17:29 | W.PM.PROGNOT ---
Date of Service Date of service: 07/29/21 Time of Service: 17:29 Assessment and Plan Assessment and plan (1) Left hemiparesis: Status: Acute Assessment and plan: Acute on chronic, better. No evidence of CVA by MRI. Differential remains migraine vs seizure vs reenactment of old deficits in setting of too many centrally acting medications. Doing better today. Continue working with PT. For overnight EEG. PT recommends a cane. (2) Hypoxia: Status: Acute Assessment and plan: COVID-19 negative. No acute respiratory process - suspect, this is baseline. Awaiting sleep study as outpatient. Exercise oximetry prior to discharge. Would benefit from noctural oximetry at home if does not qualify for O2 on exercise oximetry. Could be consequence of prior COVID infection as well. Would benefit from pulmonary follow up. (3) Chronic daily headache: Status: Chronic Assessment and plan: Started on topamax 50 mg PO BID and prn compazine - improved. (4) Dysphagia: Status: Acute Assessment and plan: Will need outpatient MBS. (5) Opioid dependence: Status: Chronic Assessment and plan: Continue methadone via BAART (6) DVT prophylaxis: Status: Acute Assessment and plan: SC heparin (7) Discharge planning issues: Status: Acute Assessment and plan: Full code Anticipate discharge home tomorrow Subjective Subjective Interval history since last seen: Ms Ervin is feeling better today. Headache is better. Denies chest pain, shortness of breath is better with O2 on, denies n/v. Was on 2L of O2 last night, came off of O2 this morning, but it was again put on her during the EEG today. She will be undergoing overnight EEG tonight. Exam Narrative Exam Narrative: General:? Pleasant obese female, A&Ox3, much more alert today, moving all 4 extremities, speech better than yesterday Neurological:? A&Ox3, CN II-XII intact, speech better, 5/5 LUE strength, 5/5 RUE strength, 5/5 LLE strength, 5/5 RLE strenth HEENT: Atraumatic, normocephalic, EOMI, MMM Cardiovascular: RRR, no m/r/g Lungs: CTAB Gastrointestinal: soft, nontender, nondistended Extremities: no edema BLE's, 1+ pedal pulses B Objective Last Vital Signs Temp 36.5 C 07/29/21 14:59 Pulse 85 07/29/21 15:04 Resp 16 07/29/21 14:59 BP 131/86 07/29/21 14:59 Pulse Ox 98 07/29/21 14:59 Laboratory Results - last 24 hr 07/29/21 07/29/21 07/29/21 06:50 06:50 06:50 WBC RBC Hgb Hct MCV MCH MCHC RDW Plt Count MPV Immature Gran % Neutrophils % Lymphocytes % Monocytes % Eosinophils % Basophils % Nucleated RBC % Absolute Neutrophils Absolute Lymphocytes Absolute Monocytes Absolute Eosinophils Absolute Basophils Sodium 139 Potassium 3.8 Chloride 103 Carbon Dioxide 34.8 H Anion Gap 1.2 L BUN 20 H Creatinine 0.8 Estimated GFR/1.73 m2 >= 60.00 Glucose 146 H Hemoglobin A1c 7.0 H Calcium 8.3 L Magnesium 2.0 NT-Pro-B Natriuret Pep 88 Triglycerides 115 Total Cholesterol 161 LDL Cholesterol, Calc 90 HDL Cholesterol 48 TSH 0.45 07/29/21 06:50 WBC 6.72 RBC 3.98 Hgb 9.5 L Hct 33.7 L MCV 84.7 MCH 23.9 L MCHC 28.2 L RDW 15.9 H Plt Count 246 MPV 10.7 Immature Gran % 0.4 Neutrophils % 57.3 Lymphocytes % 30.4 Monocytes % 7.9 Eosinophils % 3.7 Basophils % 0.3 Nucleated RBC % 0 Absolute Neutrophils 3.85 Absolute Lymphocytes 2.04 Absolute Monocytes 0.53 Absolute Eosinophils 0.25 Absolute Basophils 0.02 Sodium Potassium Chloride Carbon Dioxide Anion Gap BUN Creatinine Estimated GFR/1.73 m2 Glucose Hemoglobin A1c Calcium Magnesium NT-Pro-B Natriuret Pep Triglycerides Total Cholesterol LDL Cholesterol, Calc HDL Cholesterol TSH Objective Narrative Objective Narrative: Echo: Normal left ventricular wall thickness and chamber size.? Estimated ejection fraction is 60%.? Wall motion is normal Normal right ventricular size and systolic function Both atria are normal in size There is no structural or hemodynamically significant valvular disease
[2021-07-29] MEDS: OLANZapine 5 MG TAB 15 MG PO (22:19)
[2021-07-29] MEDS: PARoxetine 10 MG TAB 20 MG PO (22:20)
[2021-07-30] MEDS: Heparin 5,000 UNITS/ML VIAL 5000 UNITS SC ×2 (02:48→10:19)
[2021-07-30 04:00] VITALS: BP 120/83; PULSE 92; RESP 16; TEMP 36.8; O2SAT 95
[2021-07-30 07:00] VITALS: PULSE 92
[2021-07-30 07:49] VITALS: BP 151/84; PULSE 103; RESP 16; TEMP 36.3
[2021-07-30] MEDS: Budesonide/Formoterol 160/4.5 6 GM 60 PUFF INH IH (08:03)
[2021-07-30] MEDS: Cyclobenzaprine 10 MG TAB 5 MG PO (08:50)
[2021-07-30] MEDS: Topiramate 50 MG TAB PO (08:50)
[2021-07-30] MEDS: Methadone 10 MG TAB 90 MG PO (08:50)
[2021-07-30] MEDS: Docusate Sodium 100 MG CAP PO (08:51)
[2021-07-30] MEDS: Clopidogrel 75 MG TAB PO (08:51)
[2021-07-30] MEDS: Senna TAB 2 TAB PO (08:51)
[2021-07-30] MEDS: Pregabalin 25 MG CAP 75 MG PO (08:52)
[2021-07-30] MEDS: Aspirin E.C. 81 MG TABEC PO (08:52)
[2021-07-30] MEDS: Diclofenac 1% Gel 100 GM TUBE TP ×2 (08:52→11:34)
[2021-07-30 10:24] VITALS: PULSE 136; PULSE 92; PULSE 94; RESP 16; RESP 18; O2SAT 93; O2SAT 98
--- NOTE | 2021-07-30 11:21 | PDOC.EEG ---
Neurology EEG EEG: Department of Neurology INPATIENT OVERNIGHT EEG REPORT Date of Recordin07/29/21 at 15:32:35 to 16:14:19 and 07/29/21 at 16:35:53 to 07/30/21 at 07:52:59 Interpreting Physician: Dr. Stefanie Zaidi Reason for study: Ms. Ervin is a 30 year-old woman with prior strokes with waxing/waning left hemiparesis concerning for seizure. Current Medications: Current Medications Acetaminophen (Acetaminophen 325 Mg Tab) 0 mg PO Q4H PRN PRN Last Admin: 07/29/21 17:06 Dose: 650 mg Al Hydrox/Mg Hydrox/Simethicone (Mylanta Suspension 30 Ml Cup) 30 ml PO Q2H PRN PRN Last Admin: 07/29/21 14:58 Dose: 30 ml Albuterol Sulfate (Albuterol 2.5 Mg/3 Ml Inh Soln Vial) 2.5 mg UPD Q2H PRN PRN Albuterol Sulfate (Albuterol Hfa 8 Gm 60 Puff Inh) 2 puff IH Q4H PRN PRN Aspirin (Aspirin E.C. 81 Mg Tabec) 81 mg PO DAILY [facility] Last Admin: 07/30/21 08:52 Dose: 81 mg Budesonide/Formoterol Fumarate (Budesonide/Formoterol 160/4.5 6 Gm 60 Puff Inh) 2 puff IH BID [facility] Last Admin: 07/30/21 08:03 Dose: 2 puffs Clopidogrel Bisulfate (Clopidogrel 75 Mg Tab) 75 mg PO DAILY [facility] Last Admin: 07/30/21 08:51 Dose: 75 mg Cyclobenzaprine HCl (Cyclobenzaprine 10 Mg Tab) 5 mg PO BID [facility] Last Admin: 07/30/21 08:50 Dose: 5 mg Device (Inhaler, Assist Device) 1 each DIRECTED [facility] Diclofenac Sodium (Diclofenac 1% Gel 100 Gm Tube) 0 gm TP QID [facility] Last Admin: 07/30/21 08:52 Dose: 1 applic Dimethicone/Zinc Oxide (Sharon Protect Cream 142 Gm Tube) 0 gm TP PRN PRN Docusate Sodium (Docusate Sodium 100 Mg Cap) 100 mg PO TID PRN PRN Docusate Sodium (Docusate Sodium 100 Mg Cap) 100 mg PO DAILY [facility] Last Admin: 07/30/21 08:51 Dose: 100 mg Heparin Sodium (Porcine) (Heparin 5,000 Units/Ml Vial) 5,000 units SC Q8H [facility] Last Admin: 07/30/21 10:19 Dose: 5,000 units Hydroxyzine HCl (Hydroxyzine Hcl 25 Mg Tab) 25 mg PO TID PRN PRN Sodium Chloride (Saline 500ml Bag) 500 mls @ 0 mls/hr IV PRN PRN IV Miscellaneous Supplies (Iv Access) 1 each IV DIRECTED [facility] Magnesium Hydroxide (Milk Of Magnesia 30 Ml Cup) 30 ml PO DAILY PRN PRN Methadone HCl (Methadone 10 Mg Tab) 90 mg PO DAILY [facility] Last Admin: 07/30/21 08:50 Dose: 90 mg Mometasone Furoate (Mometasone Nasal 17 Gm Btl) 0 gm NS DAILY [facility] Last Admin: 07/30/21 08:52 Dose: 2 sprays Olanzapine (Olanzapine 5 Mg Tab) 15 mg PO HS [facility] Last Admin: 07/29/21 22:19 Dose: 15 mg Paroxetine HCl (Paroxetine 10 Mg Tab) 20 mg PO HS [facility] Last Admin: 07/29/21 22:20 Dose: 20 mg Pt's Own Lisdexamfetamine [ Vyvanse] 50 Mg Cap 1 each PO DAILY [facility] Last Admin: 07/30/21 08:53 Dose: Not Given Polyethylene Glycol (Polyethylene Glycol 3350 17 Gm Packet) 17 gm PO DAILY PRN PRN Pregabalin (Pregabalin 25 Mg Cap) 75 mg PO DAILY [facility] Last Admin: 07/30/21 08:52 Dose: 75 mg Pregabalin (Pregabalin 50 Mg Cap) 150 mg PO 1200,2200 [facility] Last Admin: 07/29/21 22:20 Dose: 150 mg Prochlorperazine Edisylate (Prochlorperazine 10 Mg/2 Ml Vial) 10 mg IVP Q4H PRN PRN Sennosides (Senna Tab) 2 tab PO DAILY [facility] Last Admin: 07/30/21 08:51 Dose: 2 tab Sodium Chloride (Normal Saline Flush 10 Ml Syr) 0 ml IVP PRN PRN Last Admin: 07/29/21 08:39 Dose: 10 ml Topiramate (Topiramate 50 Mg Tab) 50 mg PO BID [facility] Last Admin: 07/30/21 08:50 Dose: 50 mg METHODS: A 21 channel digitized electroencephalogram was performed in the Med/Surg Floor or ICU. The 10/20 international system of electrode placement was used and bipolar and referential electrode montages were recorded. In addition to EEG the patient was monitored for EKG and lateral/vertical eye movements. Activation procedures of photic stimulation and hyperventilation were performed if applicable. Video was used during activation procedures and during events where applicable. The duration of the recording was ~16 hours. DESCRIPTION OF EEG: Waking background activity: During maximal wakefulness an 8-Hz posterior background rhythm was present which was well-modulated, symmetrical, reactive to eye opening, and of moderate voltage. Faster frequencies were present in the bilateral anterior head regions. There was a normal anterior-posterior voltage gradient. Drowsy and sleeping background activity: During drowsiness, there was attenuation of the posterior dominant background rhythm and vertex waves. Normal stage II and III sleep was present with symmetrical sleep spindles, K-complexes, and vertex waves with slowing of the background rhythm to delta/theta frequencies. REM sleep manifested by rapid lateral eye movements and faster background rhythms was recorded. Arousal was unremarkable. Interictal abnormalities: There was very little wakefulness during the recording. But when it was seen, there was generalized, polymorphic theta slowing with bursts of generalized, polymorphic, high-amplitude delta slowing lasting 2-5 seconds at a time. Ictal findings: No events were recorded. Activating Procedures: Photic stimulation was performed which produced no posterior driving response. Hyperventilation was not performed. EKG: EKG revealed normal sinus rhythm. INTERPRETATION: This long-term EEG is abnormal due to slowing of the PDR and generalized slowing during wakefulness. PRIOR EEG: none CLINICAL CORRELATION: The background and generalized slowing are suggestive of a mild diffuse cerebral encephalopathy of broad differential including toxic-metabolic etiology. No focal regions of cerebral dysfunction or epileptiform activity was present. Clinical correlation is advised. Stefanie Zaidi MD
[2021-07-30 11:24] VITALS: BP 132/86; PULSE 110; RESP 20; TEMP 36.6; O2SAT 95
[2021-07-30] MEDS: Pregabalin 50 MG CAP 150 MG PO (11:34)
[2021-07-30] MEDS: Metoprolol CR 50 MG TABCR PO (12:44)
--- NOTE | 2021-07-30 13:26 | DSE_ITS ---
Date of service: 07/30/21 Time of Service: 13:26 DS: Diagnosis Discharge Diagnosis (1) Left hemiparesis: Status: Acute (2) Encephalopathy acute: Status: Acute (3) Hypoxia: Status: Acute (4) Chronic headache: Status: Chronic (5) Seizures: Asessment and Plan: EEG negative for epileptiform activity on this admission (6) Opioid dependence: Status: Chronic Asessment and Plan: on methadone therapy through [facility] (7) Dysphagia: Status: Acute (8) Asymptomatic bacteriuria: Status: Acute (9) Nodule of right lobe of thyroid gland: Status: Acute Asessment and Plan: PCP to follow up with ultrasound Discharge Plan Disposition Patient Disposition: HOME Condition: Stable Discharge Details Reason For Visit: Recurrent L Sided Weakness Admit Date/Time: 07/28/21 15:02 Admit Provider: Rosie Hdez Attending Provider: Rosie Hdez Primary Care Provider: Frances Sorensen [facility] Hospital Course: Ms Ervin is a 30 year old female with PMHx of prior CVA with residual L-sided weakness, as well as h/o headache, seizures, obesity with BMI of 50.7 kg/m2, and resolved COVID-19 in February, who was observed on [facility] hospitalist service from 07/28/21 until 07/30/21, having presented with worsening of her L-sided weakness, new dysarthria, altered mental status, and hypoxia, which was a new finding, but may have been going on for some time, as there was no evidence of an acute respiratory process. Her workup in the ED included an unchanged CT/CTA head/neck with endovascular stent in the intracavernous Left internal carotid artery and R-sided aneurysm coil and a stable right frontal infarct. CT of the chest did not show acute PE or any other acute pulmonary process, though it did reveal a right thyroid lobe nodule, which will need to be followed up with an ultrasound as an outpatient by PCP. The case was discussed with [facility] transfer center by ER, but unfortunately no beds were available. [facility] neurology had recommended obtaining an MRI and an EEG. MRI brain showed no new abnormalities and no areas of restricted diffusion on DWI, and the left sided microhemorrhages were unchanged. Transfer to [facility] was not pursued as CVA was ruled out. She was evaluated by Dr Zaidi of neurology here. She was initiated on topamax to help with both headaches and possible recurrent seizures, both of which remain on differential for what may have brought the patient in. For her headache, she was treated with compazine, which did help, and atypical migraine is high on differential. Her EEG showed encephalopathy and no epileptiform activity. There is a concern that the patient might be on excessive doses of centrally acting m edications and that this should be addressed as outpatient, but the patient's mental status normalized within 24 hrs on all her outpatient medications. There is a concern that there may be underlying sleep apnea/OHS which could be contributing to encephalopathy and hypoxia. In the ED, while somnolent, she was requiring 2L of O2 by NC, desaturating to 88% on RA. Oxygen requirement improved throughout the following day. The patient already has a sleep medicine referral in place and an appointment scheduled for near future. On day of discharge, she is not requiring oxygen while at rest and awake or ambulating. She is being sent home with an order for overnight oximetry to ensure that she does not have nocturnal hypoxia which could be treated while awaiting a sleep study. Her echo did not reveal pulmonary hypertension, valvular heart disease, or systolic dysfunction. She is being sent home with a referral for home health nursing, PT, OT, STORE OPERATIONS MANAGER, and speech therapy. Our physical therapy recommends a musa on discharge, and our speech therapy recommended a modified barium swallow exam as outpatient for her dysphagia. The patient is medically stable for discharge home today with follow ups with PCP, [facility] neurology as well as with Dr Zaidi, Pulmonology, Sleep medicine. Care for patient as well as completion of her discharge summary on day of discharge took 60 minutes. Home Meds and New Rx's Prescriptions: New topiramate 50 mg Tablet 50 mg PO BID Qty: 10 0RF topiramate 100 mg tablet 100 mg PO BID Qty: 60 0RF Rx Instructions: start after finishing 10 doses of topiramate 50 mg twice daily Continued Vyvanse 40 mg capsule 50 mg PO DAILY 0RF olanzapine 5 mg tablet 15 mg PO HS 0RF paroxetine HCl [Paxil] 10 mg Tablet 20 mg PO HS 0RF albuterol sulfate 90 mcg/actuation Hfa Aerosol Inhaler 2 puff INHALATION Q4H PRN0RF docusate sodium [Docusil] 100 mg capsule 100 mg PO DAILY Qty: 60 0RF sennosides [Senna Laxative] 8.6 mg tablet 17.2 mg PO DAILY 0RF Label Comments: TAKE TWO TABLETS BY MOUTH EVERY DAY methadone 10 mg/5 mL Solution 90 mg PO DAILY 0RF polyethylene glycol Powder 17 pwd MISCELLANEOUS DAILY PRN0RF clopidogrel [Plavix] 75 mg tablet 75 mg PO DAILY Qty: 60 0RF aspirin [Aspir-81] 81 mg Tablet,Delayed Release (Dr/Ec) 81 mg PO DAILY 0RF hydroxyzine HCl 25 mg Tablet 25 mg PO TID PRN0RF metoprolol succinate 25 mg Tablet Extended Release 24 Hr 50 mg PO DAILY 0RF naproxen 375 mg Tablet,Delayed Release (Dr/Ec) 375 mg PO BID 0RF cyclobenzaprine 5 mg Tablet 5 mg PO BID 0RF fluticasone propion-salmeterol [Advair Diskus] 500-50 mcg/dose blister with device 1 inh INHALATION BID 0RF diclofenac sodium 1 % gel 1 applic TOPICAL QID 0RF Label Comments: APPLY A SMALL AMOUNT TO AFFECTED AREA FOUR TIMES A DAY NEEDED - MAX TOTAL BODY DOSE ( ALL COMBINED AREAS) 32 GRAMS PER DAY acetaminophen 500 MG tablet 650 mg PO Q6H 0RF epinephrine 0.3 mg/0.3 mL auto-injector 0.3 mg IM ONCE PRN0RF Rx Instructions: as a single dose; may repeat once pregabalin 75 mg capsule 75 mg PO DAILY 0RF Label Comments: TAKE ONE CAPSULE BY MOUTH EVERY DAY pregabalin 150 mg capsule 150 mg PO BID 0RF Label Comments: TAKE 1 CAP BY MOUTH TWO TIMES A DAY Discontinued lisinopril 5 mg Tablet 5 mg PO DAILY 0RF ibuprofen 400 mg Tablet 400 - 800 mg PO Q8H PRN0RF Discharge Instructions Instructions: Topiramate (By mouth), Sleep Apnea (DC), Migraine Headache (GEN), Altered Mental Status (ED), Hypoxia (ED) Additional Instructions: Return to the hospital with any new neurological deficits, fever, bleeding, chest pain, or shortness of breath. Follow up with Dr Garza (Neurology at [facility]) on 08/25/21. Follow up with Dr Zaidi (Neurology at [facility]) in 4-6 weeks. Follow up with your PCP in 1-2 weeks. Follow up with pulmonology in 3-4 weeks. Follow up for modified barium swallow and with speech therapy. Follow up with sleep medicine. Care Plan Goals: Home with home health nursing, PT, OT, STORE OPERATIONS MANAGER, speech therapy. Stand Alone Forms: Nursing Discharge Form Referrals: [facility] Radiology [Other] (Please call to make appointment for Modified speech ba swallow.) Sabrina Espinosa [SPEECH LANGUAGE PATHOLOGIST] - Ghada Teague MD [ [facility] STAFF PHYSICIAN] - 08/18/21 3:00 pm Jhonathan Garza [ NON-[facility] STAFF PHYSICIAN] - 08/25/21 Stefanie Zaidi MD [ [facility] STAFF PHYSICIAN] - (Please call to make a follow up appointment) Frances Sorensen [Primary Care Provider] - 08/10/21 9:30 am Activity:: Activity as Tolerated Equipment/Supplies:: single point musa Diet:: Low Sodium Discharge Orders Discharge Orders: Discharge Order (Routine); Ordered 07/30/21 Ordered By: Rosie Hdez Other Ambulatory Orders: RF modified speech ba swallow (Routine) Timeframe: 2 Weeks Facility: [facility] - Location: DIAGNOSTIC IMAGING Ordered By: Rosie Hdez SaO2 Overnight Study (Outpt) (ONCE) Timeframe: [id number] Facility: [facility] - Location: Respiratory Therapy Ordered By: Rosie Hdez DS: Summary Time Spent with Patient providing and/or coordinating discharge services: Greater than 30 minutes Status at Discharge Functional status at discharge: uses cane/walker Overall status at discharge: patient is back to baseline Mental Status: mental status grossly normal Speech and Movement: speech and movement normal Mood: congruent mood Affect: normal affect Exam Narrative Exam Narrative: General:? Pleasant obese female, A&Ox3, very awake, moving all 4 extremities, speech better Neurological:? A&Ox3, CN II-XII intact, speech better, 5/5 LUE strength, 5/5 RUE strength, 5/5 LLE strength, 5/5 RLE strenth HEENT: Atraumatic, normocephalic, EOMI, MMM Cardiovascular: RRR, no m/r/g Lungs: CTAB Gastrointestinal: soft, nontender, nondistended Extremities: no edema BLE's, 1+ pedal pulses B Psych Mental Status: mental status grossly normal Speech and Movement: speech and movement normal Mood: congruent mood Affect: normal affect DS: Data Vitals/I&O Vitals and I&O: Vital Signs Temperature 36.6 C 07/30/21 11:24 Temperature Source Tympanic 07/30/21 11:24 Pulse 110 H 07/30/21 11:24 Pulse Rhythm Regular 07/30/21 08:50 Pulse 84 07/28/21 14:00 Respiratory Rate 20 07/30/21 11:24 Respiratory Effort 07/30/21 08:50 Respiratory Depth Normal 07/30/21 08:50 Respiratory Pattern Normal 07/30/21 08:50 Blood Pressure 132/86 07/30/21 11:24 Blood Pressure Mean 71 07/28/21 14:00 Pulse Oximetry 95 07/30/21 11:24 Oxygen Delivery Method Room Air 07/30/21 11:24 Oxygen Flow Rate 0 07/30/21 11:24 Pain Level 2 07/30/21 11:24 Comment 07/28/21 08:53 Intake & Output 07/29/21 07/30/21 07/30/21 23:59 11:59 23:59 Intake Total 0 / 120 Output Total 1300 / 2800 800 / 800 Balance -1300 / -2680 -800 / -800 Weight 125.7 kg Intake: Oral 0 / 120 Output: Urine 1300 / 2800 800 / 800 Other: Urine Color Yellow Yellow Urine Appearance Cloudy Cloudy Urine Odor Normal Strong Voiding Methods Bedside Commode Toilet Data Completed and Pending Completed studies during hospitalization [Text1]: CT/CTA head/neck: 1. Findings appear unchanged from 03/15/2021. Again noted is an endovascular stent in the intracavernous left internal carotid artery and right sided aneurysm coil material. 2.? No evidence of acute occlusion or significant stenosis. 3. ? Stable posterior right frontal infarct. CTA chest: 1. No evidence of acute pulmonary emboli.? No evidence of pulmonary infarction.No pleural effusions. 2. Mild cardiomegaly.? No pericardial effusion. 3. Right thyroid lobe nodule is noted.? This can be further studied with ultrasound. Brain MRI: Findings as above but without evidence of new ischemic event(s) when compared to the most recent MRI of 04/01/2021.? Also no evidence of new intracranial hemorrhage. Echo: Normal left ventricular wall thickness and chamber size.? Estimated ejection fraction is 60%.? Wall motion is normal Normal right ventricular size and systolic function Both atria are normal in size There is no structural or hemodynamically significant valvular disease EEG: This long-term EEG is abnormal due to slowing of the PDR and generalized slowing during wakefulness.v CLINICAL CORRELATION: The background and generalized slowing are suggestive of a mild diffuse cerebral encephalopathy of broad differential including toxic-metabolic etiology.? No focal regions of cerebral dysfunction or epileptiform activity was present.? Clinical correlation is advised. PFSH All Active Problems (Updated 07/30/21 @ 13:30 by Rosie Hdez MD) Asymptomatic bacteriuria (Acute) Encephalopathy acute (Acute) Dysphagia (Acute) Discharge planning issues (Acute) DVT prophylaxis (Acute) Hypoxia (Acute) Left hemiparesis (Acute) Nodule of right lobe of thyroid gland (Acute) Brain TIA (Acute) Lumbosacral spondylosis without myelopathy (Acute) CVA (cerebrovascular accident) (Chronic) TIA (transient ischemic attack) (Acute) Bacterial pneumonia (Acute) Opioid dependence (Chronic) QT prolongation (Acute) Pneumonia due to COVID-19 virus (Acute) Allergic reaction (Acute) Medication overuse headache (Acute) Chronic headache (Chronic) PFO (patent foramen ovale) (Chronic) Hypersomnia (Acute) Altered mental status (Acute) Abnormal movements (Acute) Right hemiparesis (Acute) Discharge planning issues (Acute) DVT prophylaxis (Acute) Back pain (Acute) Atypical chest pain (Acute) Acute focal neurological deficit (Acute) Stroke-like symptom (Acute) Acute right-sided muscle weakness (Acute) Acute CVA (cerebrovascular accident) (Acute) Status migrainosus (Acute) Stroke (Chronic) Dyspepsia (Acute) Acute febrile illness (Acute) Nephrolithiasis (Chronic) Scoliosis (Chronic) PTSD (post-traumatic stress disorder) (Chronic) History of intravenous drug abuse (Chronic) Depression (Chronic) Asthma (Chronic) Migraine headache with aura (Chronic ~2000) Hepatitis C infection (Chronic) Chronic daily headache (Chronic) Opioid dependence in controlled environment (Chronic) Medical History (Updated 07/30/21 @ 13:30 by Rosie Hdez MD) ADD (attention deficit disorder) Aneurysm of ophthalmic artery L, s/p stent Atrial septal aneurysm Blood bacterial culture positive Chronic pain Chronic systolic CHF (congestive heart failure) EF 50% in 08/2018 - [facility] Community acquired bacterial pneumonia Fibromyalgia Intracranial aneurysm Seizures Spondylosis of lumbar spine SVT (supraventricular tachycardia) S/p ablation Therapeutic opioid induced constipation Surgical History H/O lithotripsy History of History of cerebral aneurysm repair (~2014) S/P cystoscopy with ureteral stent placement S/P tubal ligation Status post ablation operation for arrhythmia SVT Status post thoracic spinal fusion Family History Paternal Aunt Cerebral aneurysm Diabetes Hypertension Maternal Aunt Migraines Maternal Grandmother Heart disease Hypertension Migraines Paternal Grandmother Heart disease Diabetes Father Diabetes Hypertension Maternal Grandfather Diabetes Paternal Uncle Diabetes Hypertension Paternal Grandfather Hypertension Brother Migraines Mother Migraines Social History Smoking/Tobacco Use Status: Current every day Tobacco Type: cigarettes Quit status: considering quitting Smoking risk assessment performed?: Yes (0.5 ppd) Alcohol Intake: former Details: pt reports social use Drug use: Current Sobriety Substance use type: former substance user, marijuana, crack/cocaine, heroin, opiates and IV drugs Details: former heroin and cocaine user, 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 only drugs that she uses currently is marijuana Household members: none Number of Children: 3 Do you feel safe at home: Yes Do you feel safe in your relationship?: Yes History History 2 Para 3 Hx # Term Pregnancies 2 Multiple births Hx # Pregnancies Ectopic pregnancies AB induced Hx Number of Living Children 3 AB spontaneous
--- NOTE | 2021-07-30 13:50 | PDOC.HHF2F ---
Home Health Certification Home Health Certification: 1. Encounter Date and Reason I certify that Ghada Ervin was seen by Rosie Hdez on 07/30/21 and that I had a [id number] encounter with this patient that meets the physician face to face encounter requirements. 2. Clinical Findings Supporting Skilled Need and Homebound Status I certify that home health services are medically necessary, include either intermittent half-way and/or physical/speech therapy, and that this patient is homebound in that absences from the home require considerable and taxing effort and are infrequent or of short duration, or are attributable to the need to receive medical care. [X] (a) Attached documentation from encounter provides clinical findings supporting skilled need and homebound status (including what assistance patient requires to leave the home). The encounter with the patient was in whole, or in part, for the following medical condition, which is the primary reason for home health care: Recurrent L Sided Weakness [facility]: recurrent neurological deficits, h/o CVA, migraines and seizures. Physical Therapy: eval and treat Occupational Therapy: eval and treat Speech Therapy: dysphagia - eval and treat TERMINAL SUPERVISOR: evaluate the need for resources in the community. 3. Certification and Authentication I certify that I composed the above information based on my clinical judgement relating to this patient's medical condition and, if applicable, clinical findings communicated to me by the NPP or inpatient physician who performed the Home Health Referral. All further orders will be obtained through Frances Sorensen (Community Based Physician - PCP)
[2021-07-30 13:56] VITALS: PULSE 90
--- NOTE | 2021-07-30 15:46 | PDOC.CMDIS ---
- If Service Date Differs Date of service: 07/30/21 Time of Service: 15:46 LACE Index Scoring Tool - Questions: Length of Stay (in days): 2 Acuity (Admit via E.D.?): Yes Comorbidities: Cerebrovascular Disease, Congestive Heart Failure E.D. Visits: 5 - Answers: Total Score: 12 Risk of Readmission: High Risk Care Management Discharge Reason for Hospitalization: Recurrent L sided weakness Discharge Plan: Ghada will discharge home when ready per MD with new orders for [facility] RN/PT/OT/ST/APPLIED RESEARCH DIRECTOR. She will follow up with her PCP and plan of care as prescribed including outpatient follow up. Speech Therapist requested outpatient swallow study to be ordered upon discharge as well. Ghada will transport via private vehicle with family. Patient/Family Education Needs: Review discharge instructions, discuss Ask Me Three. Services Needed at Discharge: Home Health Care Services (Wrap)
== END 2021-07-30 14:57 | disposition home or self-care (01) ==
LOC: ER 15:26 → MS 16:24
PROVIDERS: Admitting Provider Internal Medicine; Emergency Provider Student in an Organized Health Care Education/Training Program; PCP Nurse Practitioner Family; Visit Provider Internal Medicine
DX: I69.354 Hemiplegia and hemiparesis following cerebral infarction affecting left non-dominant side (principal); R09.02 Hypoxemia; R47.1 Dysarthria and anarthria; R56.9 Unspecified convulsions; J45.909 Unspecified asthma, uncomplicated; F11.20 Opioid dependence, uncomplicated; R06.02 Shortness of breath; R51.9 Headache, unspecified; R29.706 NIHSS score 6; I50.32 Chronic diastolic (congestive) heart failure; Q21.1 Atrial septal defect; F32.A Depression, unspecified; Z20.822 Contact with and (suspected) exposure to COVID-19; R13.10 Dysphagia, unspecified; R94.01 Abnormal electroencephalogram [EEG]; E04.1 Nontoxic single thyroid nodule; R82.71 Bacteriuria; G93.40 Encephalopathy, unspecified; E66.9 Obesity, unspecified; Z68.43 Body mass index [BMI] 50.0-59.9, adult; Z79.02 Long term (current) use of antithrombotics/antiplatelets; Z79.82 Long term (current) use of aspirin; Z86.16 Personal history of COVID-19
CPT/HCPCS: 36415; 36416; 51701; 70496; 70498; 71275; 80048; 80053; 80061; 80307; 81025; 82962; 87077; 87635; 93005; 94618; 94640; 95714; 96360; 96372; 97162; 97165; 97530; 99285; 70551; 81003; 81015; 83036; 83735; 83880; 84443; 84484; 85025; 87086; 87186; 93010; 93306; 99217; 99220; 99226; G0378; J1644; J3490

== ENCOUNTER 2021-09-28 21:10 | Outpatient (REF) | payer MEDICARE, MEDICAID, SELFPAY ==
[2021-09-28 19:18] LABS: Iron 23 ug/dL (50-170); Total Iron Binding Capacity 389 ug/dL (250-450); Transferrin Sat 6 % (15-50)
[2021-09-28 19:26] LABS: HCT 37.2 % (36.0-46.0); HGB 10.8 g/dL (11.2-15.7); MCH 24.2 pg (27.0-33.0); MCV 83 fL (80-95); MPV 11.5 fL (8.0-11.0); Platelet Count 299 10^3/uL (130-400); RBC 4.47 10^6/uL (3.93-5.22); RDW 16.7 % (11.7-14.6)
[2021-09-28 19:32] LABS: ALT 36 U/L (14-59); AST 23 U/L (15-37); Alkaline Phosphatase 157 U/L (46-116); BUN 15 mg/dL (7-18); Bilirubin, Total 0.2 mg/dL (0.2-1.0); CREATININE 0.8 mg/dL (0.55-1.02); Calcium 8.5 mg/dL (8.5-10.1); Chloride 104 mmol/L (98-107); Glucose 130 mg/dL (74-106); Potassium 3.8 mmol/L (3.5-5.1); Sodium 143 mmol/L (136-145); Total Protein 7.4 g/dL (6.4-8.2)
[2021-09-28 19:36] LABS: HCG Qual (Serum) Negative
[2021-09-28 20:45] LABS: Ferritin 12 ng/mL (8-252); Folate 10.3 ng/mL (8.6-20.0); TSH (W/Ref FT4) 0.55 uIU/mL (0.36-3.74); Vitamin B12 457 pg/mL (193-986)
[2021-09-29 18:46] LABS: FSH 1.6 mIU/mL (See Note); LH 0.4 mIU/mL (See Note); Prolactin 10.3 ng/mL (See Note)
[2021-09-30 10:05] LABS: Hep B Core Antibody Negative (Negative)
[2021-09-30 10:20] LABS: HIV-1/2 Ag & Ab Screen Negative (Negative)
[2021-09-30 11:38] LABS: Hepatitis B Surface Ag Negative (Negative)
[2021-09-30 15:21] LABS: HCV RNA Detection Quantitative 346000 IU/mL (Undetected); HCV RNA Qualitative Detected (Undetected)
== END 2021-09-28 21:11 | disposition home or self-care (01) ==
LOC: NCHCN 21:10
PROVIDERS: PCP Nurse Practitioner Family; Visit Provider Family Medicine
DX: B18.2 Chronic viral hepatitis C (principal); N91.1 Secondary amenorrhea; D64.9 Anemia, unspecified; E04.1 Nontoxic single thyroid nodule; R68.89 Other general symptoms and signs; Z11.4 Encounter for screening for human immunodeficiency virus [HIV]
CPT/HCPCS: 80053; 85027; 86704; 87340; 87389; 87522; 82607; 82728; 82746; 83001; 83002; 83540; 83550; 84146; 84443; 84703

== ENCOUNTER 2021-12-20 09:47 | Emergency (ER) | payer MEDICARE, MEDICAID, SELFPAY ==
[2021-12-20] VITALS (36 sets, daily range): BP systolic 90–115; BP diastolic 44–79; PULSE 0–113; RESP 4–24; TEMP 37.4; O2SAT 80–98
--- NOTE | 2021-12-20 10:43 | W.ED.GENAD ---
Discharge Plan Disposition Patient Disposition: AGAINST MEDICAL ADVICE Condition: Stable Discharge Details Clinical Impression: Pneumonia, Opiate overdose Primary Care Provider: Alistair Ramos ED Provider: Mony Kelly Home Meds and New Rx's Prescriptions: New doxycycline hyclate 100 mg tablet 100 mg PO BID 7 Days Qty: 14 0RF prednisone 20 mg tablet 40 mg PO DAILY 4 Days Qty: 8 0RF Continued Vyvanse 40 mg capsule 50 mg PO DAILY olanzapine 5 mg tablet 15 mg PO HS paroxetine HCl [Paxil] 10 mg Tablet 20 mg PO HS albuterol sulfate 90 mcg/actuation Hfa Aerosol Inhaler 2 puff INHALATION Q4H PRN docusate sodium [Docusil] 100 mg capsule 100 mg PO DAILY Qty: 60 0RF sennosides [Senna Laxative] 8.6 mg tablet 17.2 mg PO DAILY Label Comments: TAKE TWO TABLETS BY MOUTH EVERY DAY methadone 10 mg/5 mL Solution 90 mg PO DAILY polyethylene glycol Powder 17 pwd MISCELLANEOUS DAILY PRN clopidogrel [Plavix] 75 mg tablet 75 mg PO DAILY Qty: 60 0RF aspirin [Aspir-81] 81 mg Tablet,Delayed Release (Dr/Ec) 81 mg PO DAILY hydroxyzine HCl 25 mg Tablet 25 mg PO TID PRN metoprolol succinate 25 mg Tablet Extended Release 24 Hr 50 mg PO DAILY naproxen 375 mg Tablet,Delayed Release (Dr/Ec) 375 mg PO BID cyclobenzaprine 5 mg Tablet 5 mg PO BID fluticasone propion-salmeterol [Advair Diskus] 500-50 mcg/dose blister with device 1 inh INHALATION BID diclofenac sodium 1 % gel 1 applic TOPICAL QID Label Comments: APPLY A SMALL AMOUNT TO AFFECTED AREA FOUR TIMES A DAY NEEDED - MAX TOTAL BODY DOSE ( ALL COMBINED AREAS) 32 GRAMS PER DAY acetaminophen 500 MG tablet 650 mg PO Q6H epinephrine 0.3 mg/0.3 mL auto-injector 0.3 mg IM ONCE PRN Rx Instructions: as a single dose; may repeat once pregabalin 75 mg capsule 75 mg PO DAILY Label Comments: TAKE ONE CAPSULE BY MOUTH EVERY DAY pregabalin 150 mg capsule 150 mg PO BID Label Comments: TAKE 1 CAP BY MOUTH TWO TIMES A DAY topiramate [Topamax] 50 mg tablet 50 mg PO BID Qty: 10 0RF topiramate [Topamax] 100 mg tablet 100 mg PO BID Qty: 60 0RF Rx Instructions: start after finishing topamax 50 mg twice daily Discharge Instructions Instructions: Narcotic Safety (ED), Pneumonia (ED) Additional Instructions: Your CT images are concerning for pneumonia. I am also concerned that your asthma is worsening associated with the infection. Please take the antibiotic and steroids as prescribed. Please encourage hydration. I would like for you to follow-up with your primary care soon as possible. As we discussed, you are leaving AGAINST MEDICAL ADVICE. Your oxygen was low here. This might be associated in part due to your respiratory infection and reactive airway. However, I am also concerned that your rare dosing of methadone yes today and normal morning dose today increase your overall opiate amount and cause you to have overdose symptoms. These symptoms may last well beyond small amount of Narcan we gave you here today and can recur. Please stay with people as much as possible and keep the Narcan were giving you with you at all times. Please continue to cut back on your smoking. If at any point you change your mind and would like to continue to have your care here, we are happy to treat you. In particular, please return immediately if you develop increased shortness of breath, difficulty breathing, fever/chills or other new/worsening symptoms. Referrals: Alistair Ramos [Primary Care Provider] - Discharge Data Discharge Date/Time-TO BE ENTERED AT DEPARTURE: 12/20/21 14:53 Medical Decision Making Patient is a pleasant 31-year-old female with past medical history pertinent for CVA, opioid dependence, QT prolongation, PFO, right-sided hemiparesis, PTSD, depression, asthma, hepatitis C, presenting today with chief complaint of cough and shortness of breath. She reports that she began having cough, fevers, general malaise, shortness of breath about 2 days ago and symptoms have progressively increasing. She reports she has been using her inhaler with no relief. She reports that she does have a history of blood clot, denies any CP. Patient is chronically on methadone, did receive her methadone this morning just prior to arrival. Reports that this feels similar to when she had pneumonia historically. On exam, patient appears acutely ill and intoxicated. Her pupils are pinpoint, seems groggy and out of it. She does report that she did have her methadone just prior to arrival which certainly could account for her appearance. She is also noted to be tachycardic, hypertensive and hypoxic. Was started on 2 L with good response. She has diffuse expiratory wheezing. I did not hear any crackles or suggestions of pneumonia. Abdomen is benign. No lower extremity edema or calf tenderness. Concern for potential COVID-19. Will obtain portable chest x-ray and rapid testing but also consider pneumonia, asthma exacerbation, PE. She medrysone with chest discomfort to suggest ACS. No recent trauma. She reports she has been taking her clopidogrel with no missed doses. Patient became more lethargic. When aroused her speech is much more garbled and confusing. Consistent with opiate intoxication. Her pupils are pinpoint. Her oxygen did drop to 60% but once aroused this did improve. No focal deficits. This would be consistent with the timeline when the patient receives her methadone. We will give a small aliquots of Narcan. She is harder to arouse, falls asleep much more quickly and slows her breathing. Her breath sounds are improved after nebulizer, fewer wheezes but does continue to have some scattered wheezes, particularly in the upper lobe and will give a repeat DuoNeb. Her chest x-ray was reviewed by radiologist with no acute pulmonary findings. She has no leukocytosis. Stable hemoglobin. D-dimer is elevated at 534, will obtain CTA. Added VBG. CMP is significant for an AST elevated at 64 which has been intermittently elevated in the past. Her albumin is low at 2.7 which also appears to be chronic. COVID testing is negative.. Patient received 0.1 mg IV Narcan. This greatly improved her respiratory drive, she is speaking more clearly than I have seen her time since she has been here, she is awake spontaneously. However, the patient is very angry about having to receive a Narcan at all. I advised her that I was quite concerned about her increasing oxygen demand, slurred speech, confusion and increased difficulty to arouse. During her time of being angry, she began yelling and calling me a bitch. She and I discussed the labs and need for furthe rimaging, she is in agreement to move forward but remains angry about the narcan. She was abl eto come off of the [place] O2. CT reviewed by radiogist who called to advise that there is concern for possible small pneumonia vs. nodule. He recommended that given timeline since her last CT, more likely to be infectious etiology and encouraged that she be treated for pneumonia but undergo repeat imaging in a few months. Discussed with patient. She remains stable off of the O2. Will start on Doxycycline for pneumonia, prednisone for asthma exacerbation. She feels much imrpved. Will road test the patient. Patients O2 dropped into the 80s. I recommended admission for her hypoxia as well as my concern for her still having opiates on board and that she is unsafe to be alone. She advised that she believes her opiate intoxication is from taking her methadone late last night and then having her typical AM dosing. She also reports that her methadone dosing increased one week ago from 90 to 110. I advised that she would be leaving against medical advise as she is at high risk for respiratory compromise, respiratory arrest or . She still is requesting to leave. She is much more appropriate at this time and demonstrates capacity to do so. She states she lives with her mom and will have her watch her. Will send home with narcan, she states that she does already have some. Will send further prednisone and abx prescription to her pharamcy. I encouraged that she f/u with PCP GEORGINA and advised that she may return at any time for continued evaluation, intervention and care. She voiced understanding. HPI General Date/Time Provider Initiated Documentation: 12/20/21 10:05. Limitations to Documentation: no limitations (patient falls asleep frequently but is arousable and appropriate). Information obtained by: patient and RN notes reviewed. History of Present Illness 31 year old F presents to the emergency department with the chief complaint of cough, SOB, described as moderate and similar to prior episodes (states it feels like when she has had pneumonia in the past), and is localized to the chest. Patient reports no radiation. Patient started experiencing this day(s) and it has been constant. No relieving factors improve symptom(s), No exacerbating factors reported . Patient notes cough, fever/chills and shortness of breath; denies chest pain, diaphoresis, headaches, nausea/vomiting, rash, syncope and weakness. Patient did receive the following treatments prior to arrival, other (inhaler) Related Data Home Medications Medication Instructions Recorded Confirmed albuterol sulfate 90 mcg/actuation 2 puff inhalation Q4H PRN 02/03/18 07/28/21 aerosol inhaler paroxetine HCl 10 mg tablet (Paxil) 20 mg PO HS 02/03/18 07/28/21 docusate sodium 100 mg capsule 100 mg PO DAILY #60 caps 07/01/18 07/28/21 (Docusil) aspirin 81 mg tablet,delayed 81 mg PO DAILY 10/17/18 07/28/21 release (Aspir-) hydroxyzine HCl 25 mg tablet 25 mg PO TID PRN 10/17/18 07/28/21 metoprolol succinate 25 mg 50 mg PO DAILY 10/17/18 07/28/21 tablet,extended release 24 hr naproxen 375 mg tablet,delayed 375 mg PO BID 10/17/18 07/28/21 release cyclobenzaprine 5 mg tablet 5 mg PO BID 07/14/19 07/28/21 olanzapine 5 mg tablet 15 mg PO HS 02/23/21 07/28/21 methadone 10 mg/5 mL oral solution 90 mg PO DAILY 03/15/21 07/28/21 polyethylene glycol 17 pwd miscellaneous DAILY PRN 03/15/21 07/28/21 sennosides 8.6 mg tablet (Senna 17.2 mg PO DAILY 03/15/21 07/28/21 Laxative) clopidogrel 75 mg tablet (Plavix) 75 mg PO DAILY #60 tabs 04/01/21 07/28/21 lisdexamfetamine 40 mg capsule 50 mg PO DAILY 05/05/21 07/28/21 (Vyvanse) acetaminophen 500 mg tablet 650 mg PO Q6H 07/28/21 07/28/21 diclofenac sodium 1 % topical gel 1 applic topical QID 07/28/21 07/28/21 epinephrine 0.3 mg/0.3 mL 0.3 mg IM ONCE PRN 07/28/21 07/28/21 injection, auto-injector fluticasone 500 mcg-salmeterol 50 1 inh inhalation BID 07/28/21 07/28/21 mcg/dose blistr powdr for inhalation (Advair Diskus) pregabalin 150 mg capsule 150 mg PO BID 07/28/21 07/28/21 pregabalin 75 mg capsule 75 mg PO DAILY 07/28/21 07/28/21 topiramate 100 mg tablet (Topamax) 100 mg PO BID #60 tabs 07/30/21 topiramate 50 mg tablet (Topamax) 50 mg PO BID #10 tabs 07/30/21 doxycycline hyclate 100 mg tablet 100 mg PO BID 7 days #14 tabs 12/20/21 prednisone 20 mg tablet 40 mg PO DAILY 4 days #8 tabs 12/20/21 Previous Rx's Medication Instructions Recorded docusate sodium 100 mg capsule 100 mg PO DAILY #60 caps 07/01/18 (Docusil) clopidogrel 75 mg tablet (Plavix) 75 mg PO DAILY #60 tabs 04/01/21 topiramate 100 mg tablet (Topamax) 100 mg PO BID #60 tabs 07/30/21 topiramate 50 mg tablet (Topamax) 50 mg PO BID #10 tabs 07/30/21 doxycycline hyclate 100 mg tablet 100 mg PO BID 7 days #14 tabs 12/20/21 prednisone 20 mg tablet 40 mg PO DAILY 4 days #8 tabs 12/20/21 Allergies Allergy/AdvReac Type Severity Reaction Status Date / Time meperidine HCl [From Demerol] Allergy Severe Anaphylaxsi Verified 07/28/21 09:54 s venom-honey bee Allergy Severe anaphylaxis Verified 07/28/21 09:54 [bee venom (honey bee)] lithium AdvReac Mild NAUSEA Verified 07/28/21 09:54 sertraline HCl [From Zoloft] AdvReac Mild NIGHTMARES Verified 07/28/21 09:54 General Stated Complaint: SOB KALINA: 3 Review of Systems Constitutional Constitutional: Reports as per HPI and Denies headache(s) Eyes Eyes: Reports as per HPI, Denies eye discharge and Denies irritation ENT Ears, Nose, Mouth, and Throat: Reports as per HPI and Denies headache(s) Cardiovascular Cardiovascular: Reports as per HPI and Denies chest pain Respiratory Respiratory: Reports as per HPI Gastrointestinal Gastrointestinal: Reports as per HPI, Denies abdominal pain, Denies change in bowel habits, Denies nausea and Denies vomiting Integumentary/Breasts Skin/Breast: Reports as per HPI and Denies rash Neurologic Neurologic: Reports as per HPI and Denies headache(s) PFSH All Active Problems (Updated 12/20/21 @ 13:56 by RICCO Dunne) Pneumonia (Acute) Opiate overdose (Acute) Nocturnal hypoxia (Acute) Asymptomatic bacteriuria (Acute) Encephalopathy acute (Acute) Dysphagia (Acute) Left hemiparesis (Acute) Nodule of right lobe of thyroid gland (Acute) Lumbosacral spondylosis without myelopathy (Acute) CVA (cerebrovascular accident) (Chronic) TIA (transient ischemic attack) (Acute) Opioid dependence (Chronic) QT prolongation (Acute) Pneumonia due to COVID-19 virus (Acute) Allergic reaction (Acute) Medication overuse headache (Acute) Chronic headache (Chronic) PFO (patent foramen ovale) (Chronic) Hypersomnia (Acute) Altered mental status (Acute) Abnormal movements (Acute) Right hemiparesis (Acute) Discharge planning issues (Acute) DVT prophylaxis (Acute) Back pain (Acute) Atypical chest pain (Acute) Acute focal neurological deficit (Acute) Stroke-like symptom (Acute) Acute right-sided muscle weakness (Acute) Acute CVA (cerebrovascular accident) (Acute) Status migrainosus (Acute) Stroke (Chronic) Dyspepsia (Acute) Acute febrile illness (Acute) Nephrolithiasis (Chronic) Scoliosis (Chronic) PTSD (post-traumatic stress disorder) (Chronic) History of intravenous drug abuse (Chronic) Depression (Chronic) Asthma (Chronic) Migraine headache with aura (Chronic ~2000) Hepatitis C infection (Chronic) Chronic daily headache (Chronic) Opioid dependence in controlled environment (Chronic) Medical History (Updated 12/20/21 @ 13:56 by RICCO Dunne) ADD (attention deficit disorder) Aneurysm of ophthalmic artery L, s/p stent Atrial septal aneurysm Bacterial pneumonia Blood bacterial culture positive Brain TIA Chronic pain Chronic systolic CHF (congestive heart failure) [place] [facility] [place] Fibromyalgia Hypoxia Intracranial aneurysm Seizures Spondylosis of lumbar spine SVT (supraventricular tachycardia) S/p ablation Therapeutic opioid induced constipation Surgical History H/O lithotripsy History of History of cerebral aneurysm repair (~2014) S/P cystoscopy with ureteral stent placement S/P tubal ligation Status post ablation operation for arrhythmia SVT Status post thoracic spinal fusion Family History Paternal Aunt Cerebral aneurysm Diabetes Hypertension Maternal Aunt Migraines Maternal Grandmother Heart disease Hypertension Migraines Paternal Grandmother Heart disease Diabetes Father Diabetes Hypertension Maternal Grandfather Diabetes Paternal Uncle Diabetes Hypertension Paternal Grandfather Hypertension Brother Migraines Mother Migraines Social History Smoking/Tobacco Use Status: Current every day Tobacco Type: cigarettes Quit status: considering quitting Smoking risk assessment performed?: Yes (0.5 ppd) Alcohol Intake: former Details: pt reports social use Drug use: Current Sobriety Substance use type: former substance user, marijuana, crack/cocaine, heroin, opiates and IV drugs Details: former heroin and cocaine user, 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 only drugs that she uses currently is marijuana Household members: none Number of Children: 3 Do you feel safe at home: Yes Do you feel safe in your relationship?: Yes History History 2 Para 3 Hx # Term Pregnancies 2 Multiple births Hx # Pregnancies Ectopic pregnancies AB induced Hx Number of Living Children 3 AB spontaneous Exam Const General: cooperative, comfortable, no acute distress, well developed and intoxicated appearing (pin point pupils, slight slurring of words, falls asleep frequently) Nutritional Appearance: well nourished and obese Orientation: alert, awake and oriented x3 (appropriate when awake, easy to arouse with verbal stimuli) HENMT Head: normal to inspection, normocephalic and atraumatic Ears: hearing grossly normal bilaterally, external ears normal and TM's normal bilaterally General nose exam: external nose normal and nares normal Face and sinus: normal facial exam, sinuses nontender and face symmetric Mouth: oral mucosae normal, lip normal, tongue normal, oropharynx normal and moist mucous membranes Teeth and gingiva: dentition normal Throat: posterior oropharynx normal, tonsils normal and uvula midline Eyes General: appearance normal, both eyes and all related structures Neck Neck: normal visual inspection, full ROM, no lymphadenopathy and no meningeal signs Resp Effort & Inspection: normal respiratory effort, able to speak in complete sentences and no respiratory distress Auscultation: no rales, no rhonchi and wheezes expiratory wheezes and scattered wheezes Cardio Rate: tachycardic Rhythm: regular rhythm Heart Sounds: S1 normal and S2 normal GI Inspection: normal to inspection Palpation: soft and nontender Skin General skin exam: no rashes or lesions noted Neuro General: patient alert and patient awake Cognition: normal cognition Speech: speech normal Gait: normal gait Extrem General: normal to inspection, no pedal edema and no calf tenderness Psych Appearance: disheveled Mental Status: mental status grossly normal (appears intoxicatted) Course Vital Signs Vital signs: Vital Signs Temperature 37.4 C 12/20/21 10:02 Pulse 105 H 12/20/21 10:02 Respiratory Rate 20 12/20/21 10:02 Blood Pressure 112/44 L 12/20/21 10:02 Pulse Oximetry 85 L 12/20/21 10:02 Temperature 37.4 C 12/20/21 10:02 Temperature Source Temporal Artery Scan 12/20/21 10:02 Pulse 105 H 12/20/21 10:02 Respiratory Rate 20 12/20/21 10:02 Blood Pressure 112/44 L 12/20/21 10:02 Blood Pressure Position Sitting 12/20/21 10:02 Pulse Oximetry 85 L 12/20/21 10:02 Oxygen Delivery Method Room Air 12/20/21 10:02 Oxygen Flow Rate 0 12/20/21 10:02 Pain Level 7 12/20/21 10:02
--- NOTE | 2021-12-20 10:45 | DI.RAD_ITS ---
Exam(s) XR PORTABLE CHEST AP EXAM: XR PORTABLE CHEST AP CLINICAL HISTORY: cough, SOB TECHNIQUE: 2D digital imaging was performed of the chest. One image was obtained. An AP view was ob tained. COMPARISON: CR XR CHEST 2V PA LATERAL from 10/17/2018 FINDINGS: MEDIASTINUM: Normal. HEART: Normal. PULMONARY VASCULATURE: Normal. LUNGS: Clear. PLEURAL SPACE: No pleural effusion or pneumothorax. BONE:Within normal limits for the patient's age. Stable postsurgical changes in the thoracic spine. OTHER FINDINGS:Normal. IMPRESSION: No acute pulmonary findings. DATA REPOSITORY: RADIATION DOSE DELIVERED:
[2021-12-20 11:16] LABS: Lactate 0.8 mmol/L (0.6-1.4)
[2021-12-20 11:18] LABS: Abs Immature Grans 0.05 10^3/uL (0.0-0.06); Absolute Basophil Count 0.02 10^3/uL (0.0-0.2); Absolute Eosinophil Count 0.32 10^3/uL (0.0-0.7); Absolute Lymphocyte Count 1.83 10^3/uL (1.2-3.4); Absolute Monocyte Count 0.58 10^3/uL (0.1-0.8); Absolute Neutrophil Count 7.05 10^3/uL (1.2-6.7); Basophils % 0.2; Eosinophils % 3.2; HCT 35.8 % (36.0-46.0); HGB 10.6 g/dL (11.2-15.7); Immature Grans % 0.5; Lymphocytes % 18.6; MCH 23.9 pg (27.0-33.0); MCHC 29.6 % (32.0-36.0); MCV 81 fL (80-95); MPV 10.2 fL (8.0-11.0); Monocytes % 5.9; Neutrophils % 71.6; Platelet Count 278 10^3/uL (130-400); RBC 4.44 10^6/uL (3.93-5.22); RDW 18.1 % (11.7-14.6); RDW-SD 52.7 fL; WBC 9.85 10^3/uL (4.4-10.8)
[2021-12-20 11:22] LABS: Source Nasal/Nares
[2021-12-20 11:37] LABS: ALT 46 U/L (14-59); AST 64 U/L (15-37); Albumin 2.7 g/dL (3.4-5.0); Alkaline Phosphatase 136 U/L (46-116); BUN 21 mg/dL (7-18); Bilirubin, Total 0.2 mg/dL (0.2-1.0); Calcium 8.7 mg/dL (8.5-10.1); Chloride 102 mmol/L (98-107); Glucose 176 mg/dL (74-106); Potassium 4.2 mmol/L (3.5-5.1); Sodium 140 mmol/L (136-145)
[2021-12-20] MEDS: Albuterol/Ipratropium 3 ML UPD VIAL UPD (11:37)
[2021-12-20 11:54] LABS: D-Dimer 534 ng/mlFEU (<500)
[2021-12-20 11:54] LABS: COVID-19 PCR Negative (Negative)
--- NOTE | 2021-12-20 12:15 | DI.CT_ITS ---
Exam(s) CT CHEST PE CTA EXAM: CT CHEST PE CTA CLINICAL HISTORY: SOB, elevated d-dimer. TECHNIQUE: Imaging Protocol: Axial CT angiography was performed with multi-slice acquisition and mu lti-planar and/or 3D reconstructions. CONTRAST MATERIAL: Intravenous: Omnipaque 350 contrast volume:100 mL COMPARISON: CT CT CHEST PE CTA from 07/28/2021 CR XR PORTABLE CHEST AP from 12/20/2021 FINDINGS: Tracheobronchial tree: Patent where visualized. Pulmonary parenchyma: There is a new 1.5 cm rounded opacity in the right lower lobe. Smaller nodular infiltrates are seen in the lower lobes bilaterally. No architectural distortion. Pulmonary Arteries: No evidence of filling defect to suggest pulmonary emboli. Mediastinum and Shara: No dominant adenopathy or fluid collection. The esophagus is unremarkable. Th ere is a small hiatal hernia. Visualized thyroid gland: Stable right thyroid nodule. Pleura: No effusion or pneumothorax. Heart: Mild cardiomegaly. No coronary artery calcifications are seen. No pericardial effusion. Aorta: Thoracic aorta non-dilated. No evidence of dissection. Upper abdomen: Unremarkable. Soft tissues: Unremarkable. Bones: Within normal limits for the patient's age.Postsurgical changes are again seen in the thoracic spine. There is a right convex thoracic scoliosis. There is a healing fracture of the anterior asp ect of the right 7th rib. IMPRESSION: 1. No evidence of pulmonary embolism, thoracic aortic dissection or aneurysm. 2. Small nodular infiltrate in the lower lobes bilaterally. New 1.5 cm rounded opacity in the right lower lobe. These may be related in reflect an infectious or inflammatory process. A follow-up CT s can in 1 month is recommended for re-evaluation. 3. Results of this exam have been verbally communicated with provider. RADIATION DOSE DELIVERED: 547.85mGy.cm Total DLP DATA REPOSITORY: All CT scans at this facility are submitted to the National Radiology Data Registry (NRDR) Dose Index Registry (DIR) with the [employer] (A[employer]). RADIATION OPTIMIZATION: All CT scans at this facility use at least one of these dose optimization te chniques: automated exposure control; mA and/or kV adjustment per patient size (includes targeted exa ms where dose is matched to clinical indication); or iterative reconstruction.
[2021-12-20] MEDS: Naloxone 0.4 MG/ML VIAL 0.1 MG IVP (12:40)
[2021-12-20] MEDS: Omnipaque 350 MG/ML 100 ML BTL IJ (13:23)
[2021-12-20] MEDS: Doxycycline Hyclate 100 MG CAP PO (14:07)
[2021-12-20] MEDS: Acetaminophen 500 MG TAB 1000 MG PO (14:28)
[2021-12-20] MEDS: predniSONE 20 MG TAB 40 MG PO (14:29)
== END 2021-12-20 14:53 | disposition left against medical advice (07) ==
PROVIDERS: Emergency Provider Physician Assistant; PCP Family Medicine
DX: J18.9 Pneumonia, unspecified organism (principal); T40.3X1A Poisoning by methadone, accidental (unintentional), initial encounter; J45.909 Unspecified asthma, uncomplicated; R00.0 Tachycardia, unspecified; I50.22 Chronic systolic (congestive) heart failure; F17.210 Nicotine dependence, cigarettes, uncomplicated; R09.02 Hypoxemia; Z20.822 Contact with and (suspected) exposure to COVID-19; Z86.73 Personal history of transient ischemic attack (TIA), and cerebral infarction without residual deficits; Z79.82 Long term (current) use of aspirin; Z79.51 Long term (current) use of inhaled steroids
CPT/HCPCS: 71275; 80053; 82805; 87040; 87635; 96374; 99284; 99285; 71045; 83605; 83735; 85025; 85379; J2310; J3490; J7512; J7620

== ENCOUNTER 2022-02-15 14:10 | Outpatient (REF) | payer MEDICARE, MEDICAID, SELFPAY ==
[2022-02-15 16:49] LABS: HCT 35.2 % (36.0-46.0); HGB 10.5 g/dL (11.2-15.7); MCHC 29.8 % (32.0-36.0); MCV 84 fL (80-95); MPV 11.6 fL (8.0-11.0); Platelet Count 315 10^3/uL (130-400); RDW-SD 55.3 fL
[2022-02-15 17:24] LABS: ALT 19 U/L (14-59); AST 23 U/L (15-37); Alkaline Phosphatase 150 U/L (46-116); Anion Gap 6.6 mmol/L (3-11); BUN 22 mg/dL (7-18); Bilirubin, Total 0.2 mg/dL (0.2-1.0); CO2 30.4 mmol/L (21.0-32.0); CREATININE 0.8 mg/dL (0.55-1.02); Calcium 8.9 mg/dL (8.5-10.1); Chloride 102 mmol/L (98-107); Estimated GFR 100.33 (mL/min/1.73m2); Glucose 145 mg/dL (74-106); Potassium 4.2 mmol/L (3.5-5.1); Sodium 139 mmol/L (136-145); Total Protein 8.3 g/dL (6.4-8.2)
[2022-02-17 12:57] LABS: HCV RNA Qualitative Undetected (Undetected)
== END 2022-02-15 14:11 | disposition home or self-care (01) ==
LOC: LBN 14:10
PROVIDERS: PCP Family Medicine; Visit Provider Family Medicine
DX: B18.2 Chronic viral hepatitis C (principal)
CPT/HCPCS: 80053; 85027; 87522

== ENCOUNTER → 2022-03-28 02:13 | Outpatient (CLI) | payer MEDICARE, MEDICAID, SELFPAY ==
--- NOTE | 2022-03-28 | DI.US_ITS ---
Exam(s) US THYROID EXAM: US THYROID CLINICAL HISTORY: THYROID NODULE, E04.1. TECHNIQUE: Ultrasound thyroid performed using standard protocol. COMPARISON: No exams were available for comparison FINDINGS: ISTHMUS: 4.6 mm RIGHT LOBE: Size: 5.6 x 2.0 x 2.5 cm Echogenicity: Mildly heterogeneous. Vascularity: Normal. Nodules: 2.2 x 1.8 x 2 centimeter misc cystic and solid lesion mid right lobe. It is isoechoic, with lobulated margins. No echogenic foci. TR 4. LEFT LOBE: Size: 5.4 x 1.6 x 2.3 cm Echogenicity: Normal. Vascularity: Normal. Nodules: None. OTHER FINDINGS: 1.9 centimeter lymph node without suspicious features left side of the neck. IMPRESSION: 2.2 centimeter TI-RADS category 4 nodule. FNA is recommended. DATA REPOSITORY:
== END ==
PROVIDERS: PCP Family Medicine; Visit Provider Nurse Practitioner Family
DX: E04.1 Nontoxic single thyroid nodule (principal)
CPT/HCPCS: 76536

== ENCOUNTER 2022-03-31 08:56 | Outpatient (CLI) | payer MEDICARE, MEDICAID, SELFPAY ==
--- NOTE | 2022-03-31 09:00 | RT.EKG_ITS ---
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
== END 2022-03-31 08:57 | disposition home or self-care (01) ==
PROVIDERS: PCP Family Medicine; Visit Provider Family Medicine
DX: Z79.899 Other long term (current) drug therapy
CPT/HCPCS: 93005; 93010

== ENCOUNTER 2022-05-28 15:27 | Outpatient (CLI) | payer MEDICARE, MEDICAID, SELFPAY ==
--- NOTE | 2022-05-28 15:45 | DI.RAD_ITS ---
Exam(s) XR CHEST 2V PA LATERAL EXAM: XR CHEST 2V PA LATERAL CLINICAL HISTORY: COUGH TECHNIQUE: 2D digital imaging was performed of the chest. Two images were obtained. PA and lateral views were obtained. COMPARISON: CR XR PORTABLE CHEST AP from 12/20/2021 FINDINGS: MEDIASTINUM: Normal. HEART: Normal. PULMONARY VASCULATURE: Normal. LUNGS: Clear. PLEURAL SPACE: No pleural effusion or pneumothorax. BONE:Within normal limits for the patient's age. Tejeda rods are seen in the spine. OTHER FINDINGS:Normal. IMPRESSION: No acute pulmonary findings. DATA REPOSITORY: RADIATION DOSE DELIVERED:
--- NOTE | 2022-05-28 16:07 | DI.VRAD_ITS ---
PROCEDURE INFORMATION: Exam: XR Chest Exam date and time: 05/28/2022 3:42 PM Age: 31 years old Clinical indication: Cough TECHNIQUE: Imaging protocol: Radiologic exam of the chest. Views: 2 views. COMPARISON: CR XR PORTABLE CHEST AP 12/20/2021 11:08 AM FINDINGS: Lungs: Unremarkable. No consolidation. Pleural spaces: Unremarkable. No pleural effusion. No pneumothorax. Heart/Mediastinum: Unremarkable. No cardiomegaly. Bones/joints: There are posterior spinal rods again noted with mild dextroscoliosis. IMPRESSION: No evidence for acute abnormality in the chest. Dictated and Authenticated by: Rebecca Quiorz MD. Ordering:HENRIQUE MCCRAY MD
== END 2022-05-28 15:47 ==
PROVIDERS: PCP Family Medicine; Visit Provider Nurse Practitioner Family
DX: R05.8 Other specified cough (principal)
CPT/HCPCS: 71046

== ENCOUNTER 2022-05-31 03:05 | Outpatient (CLI) | payer MEDICARE, MEDICAID, SELFPAY ==
--- NOTE | 2022-05-31 | DI.RAD_ITS ---
Exam(s) XR LUMBAR SPINE AP, LAT EXAM: XR LUMBAR SPINE AP, LAT CLINICAL HISTORY: PSORIASIS, L40.9. TECHNIQUE: 2D digital imaging was performed. COMPARISON: No exams were available for comparison FINDINGS: 3 views Scoliosis convex left. Lower aspect of Tejeda rods are seen at T12 level. There is no hardware in the 5 lumbar vertebrae which exhibit concave left scoliosis. There is no evidence of fracture or listhesis of lumbar vertebrae nor significant disc space narrowin g with the exception of asymmetric narrowing of the right side of L2-3 disc space which is the epicen ter of the scoliosis here. No pars defects. Facets unremarkable. SI joints unremarkable. Bone den sity normal. No osseous lesions.. IMPRESSION: As above. DATA REPOSITORY: RADIATION DOSE DELIVERED:
== END 2022-05-31 03:25 ==
PROVIDERS: PCP Family Medicine; Visit Provider Physician Assistant
DX: M41.86 Other forms of scoliosis, lumbar region (principal); M51.36 Other intervertebral disc degeneration, lumbar region; M54.59 Other low back pain
CPT/HCPCS: 72100

== ENCOUNTER 2022-06-07 01:00 | Outpatient (CLI) | payer MEDICARE, MEDICAID, SELFPAY ==
--- OUTSIDE RECORDS SUMMARY | 2022-06-07 01:02 | XMS_ITS ---
Author Name Dawson Cox Address [address], [place] [id number] Organization [facility] Address [address], [place] [id number] Care Team Providers Care Marine Services Technician Name Role Phone Dawson Cox Unavailable [phone] PROBLEMS Type Condition ICD9-CM Code BMA17-AM Code Onset Dates Condition Status SNOMED Code Problem Weakness of muscles 728.87 Active 2654 4005 Problem Paresthesia 782.0 Active 81292800 Problem Migraine without aura, with intractable migraine, with status migrainosus 346.13 Active 948279876 Problem Vitamin D deficiency NOS 268.9 Active 86330599 Problem Arthralgia of multiple joints 719.49 Active 12368188 Problem 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 Active 20510842 Problem Anxiety F41.9 Active 02415239 Problem Psoriasis L40.9 Active 2467930 Problem Chronic pain syndrome 338.4 Active 215951679 Problem Other chronic pain G89.29 Active 00900 001 Problem Scoliosis, idiopathic 737.30 Active 700025043 Problem Encounter for gynecological examination (general) (routine) without abnormal findings Z01.419 Active [id number] Problem Decreased appetite R63.0 Active 11899 006 Problem Oropharyngeal dysphagia R13.12 Active 14762631 Problem Encounter for screening for other viral diseases Z11.59 Active 486738349 ALLERGIES Substance Reaction Event Type Date Status Zoloft Unknown Drug Allergy 14 Jan, 2022 Active Bee Stings Anaphylaxis Non Drug Allergy Jan, Activ e [place] [place] Carbonate Unknown Drug Allergy Jan, Act amber Demerol Anaphylaxis Drug Allergy Jan, Active ENCOUNTERS Encounter Location Date Diagnosis [facility] [address], [address] [place], [place] [id number] Jan, [facility] [address] [place] [address] [place] [id number] Jan, [facility] [address], [address] [place], [place] [id number] Jan, Psoriasis L40.9 ; Low back pain, unspecified M54.50 and Other chronic pain G89.29 [facility] [address], [address] [place], [place] [id number] Jan, [facility] [address] [place] [id number] May, [facility] [address] [place] [id number] May, Dyspepsia R10.13 ; Pyrosis R12 ; Oropharyngeal dysphagia R13.12 ; Non-intractable vomiting without nausea, unspecified vomiting type R11.11 ; Decreased appetite R63.0 ; Drug-induced constipation K59.03 ; Chronic, continuous use of opioids F11.90 and Hematochezia K92.[address] [place] [id number] May, [facility] [address] [place] [address] [id number] Mar, [facility] [address] [place] [address] [id number] Mar, Encounter for screening for other viral diseases Z11.[address] [place] [id number] Feb, [facility] [address] [place] [address] [id number] Feb, Dyspepsia R10.13 ; Pyrosis R12 ; Oropharyngeal dysphagia R13.12 ; Non-intractable vomiting without nausea, unspecified vomiting type R11.11 ; Decreased appetite R63.0 ; Drug-induced constipation K59.03 ; Chronic, continuous use of opioids F11.90 and Hematochezia K92.[address] [place] [id number] Jan, [facility] [address] [id number] Feb, Personal history of urinary (tract) infections Z87.440 and Upper abdominal pain, unspecified R10.10 [facility] [address] [id number] Jan, Calculus of ureter N20.1 [facility] [address] [id number] Nov, [address] [id number] Nov, [facility] [address] [id number] Nov, [facility] [address] [id number] Nov, Kidney stones 592.0 ; Anxiety 300.00 ; Bipolar affective disorder, depressed 296.50 ; Chronic pain syndrome 338.4 ; UTI (lower urinary tract infection) 599.0 and Ureteral calculus 592.1 [facility] [address] [id number] Nov, [address] [id number] Jun, ROUT POSTPART FOLLOW-UP V24.2 and Migraine without aura, with intractable migraine, with status migrainosus 346.[address] [id number] May, [address] [id number] May, [address] [id number] May, Postop check V67.[address] [id number] May, [address] [id number] Apr, [address] [id number] Apr, SUPERVIS OTH NORMAL PREG V22.1 ; Twin gestation, unable to determine number of placenta and number of amniotic sacs V91.09 ; Abnormal glucose in , antepartum 648.83 and Previous delivery, antepartum 654.[address] [id number] Apr, SUPERVIS OTH NORMAL PREG V22.[address] [id number] Apr, [address] [id number] Mar, SUPERVIS OTH NORMAL PREG V22.1 and Twin gestation, unable to determine number of placenta and number of amniotic sacs V91.[address] [id number] Mar, SUPERVIS OTH NORMAL PREG V22.1 and Twin gestation, monochorionic/diamniotic (one placenta, two amniotic sacs) 651.[address] [id number] Mar, SUPERVIS OTH NORMAL PREG V22.1 ; GERD (gastroesophageal reflux disease) 530.81 and Twin gestation, monochorionic/diamniotic (one placenta, two amniotic sacs) 651.[address] [id number] Feb, Abnormal glucose in , antepartum 648.[address] [id number] Feb, SUPERVIS OTH NORMAL PREG V22.1 ; THREAT ROSALVA LABOR-UNSPEC 644.00 and Twin gestation, unable to determine number of placenta and number of amniotic sacs V91.[address] [id number] Feb, [address] [id number] Feb, [address] [id number] Jan, [facility] [address] [facility] [address] [place] [address] [id number] Jan, SUPERVIS OTH NORMAL PREG V22.1 ; Tobacco use disorder 305.1 and Twin gestation, unable to determine number of placenta and number of amniotic sacs V91.[address] [place] [address] [id number] Dec, SUPERVIS OTH NORMAL PREG V22.1 and Twin gestation, unable to determine number of placenta and number of amniotic sacs V91.[address] [place] [address] [id number] Dec, Heart palpitations 785.[address] [id number] Dec, [address] [id number] Dec, [facility] [address] [id number] Nov, Migraine without aura, with intractable migraine, with status migrainosus 346.13 and PREG COMPL NEC-UNSPEC 646.[address] [id number] Nov, SUPERVIS OTH NORMAL PREG V22.1 and Twin gestation, unable to determine number of placenta and number of amniotic sacs V91.[address] [id number] Nov, [address] [place] [address] [id number] Nov, [address] [place] [address] [id number] Oct, Supervision of other normal V22.1 and GERD 530.[address] [id number] Oct, [address] [place] [address] [id number] Oct, Nausea & vomiting 787.[address] [place] [address] [id number] Oct, Dysuria 788.1 [place] [address] [facility] [address] [place] [address] [id number] Oct, [facility] [address] [facility] [address] [place] [address] [id number] Oct, Irregular menses 626.4 and Tobacco use disorder 305.1 [facility] [address] [facility] [address] [place], [place] [id number] Mar, [facility] [address] [facility] [address] [place], [place] [id number] Mar, 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 ; Chronic pain syndrome 338.4 and Vitamin D deficiency NOS 268.9 [facility] [address] [place], [place] [id number] Mar, [facility] [address] [place], [place] [id number] Mar, Arthralgia of multiple joints 719.49 ; 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 ; Vitamin D deficiency NOS 268.9 and Weakness of muscles 728.87 [facility] [address] [facility] [address] [place], [place] [id number] Feb, [address] [place] [address] [id number] Oct, Contraception management V25.[address] [place] [address] [id number] Oct, FOLLOW-UP SURGERY NOS V67.[address] [place] [address] [id number] Oct, FOLLOW-UP SURGERY NOS V67.[address] [place] [address] [id number] Oct, FOLLOW-UP SURGERY NOS V67.[address] [place] [address] [id number] Sep, [address] [place] [address] [id number] Sep, FOLLOW-UP SURGERY NOS V67.00 [facility] [address] [facility] [address] [place] [address] [id number] Sep, [address] [place] [address] [id number] Sep, FOLLOW-UP SURGERY NOS V67.00 [facility] [address] [facility] [address] [place], [place] [id number] 17 Sep, [address] [place] [address] [id number] 14 Sep, [address] [id number] 12 Sep, 2012 Anemia complicating , childbirth, and the puerperium, delivered, w 648.[address] [place] [address] [id number] Sep, [address] [id number] Sep, Other threatened labor, antepartum condition or complication 644.[address] [id number] Sep, SUPERVIS NORMAL 1ST PREG V22.[address] [id number] August, SUPERVIS NORMAL 1ST PREG V22.[address] [id number] August, Other threatened labor, antepartum condition or complication 644.13 and SUPERVIS NORMAL 1ST PREG V22.[address] [id number] August, SUPERVIS NORMAL 1ST PREG V22.[address] [id number] August, SUPERVIS NORMAL 1ST PREG V22.[address] [id number] August, SUPERVIS NORMAL 1ST PREG V22.0 and Other threatened labor, antepartum condition or complication 644.[address] [id number] August, SUPERVIS NORMAL 1ST PREG V22.0 ; SUPERVIS OTH NORMAL PREG V22.1 and Low back pain 724.[address] [id number] August, SUPERVIS OTH NORMAL PREG V22.1 and Low back pain 724.[address] [place], [place] [id number] Jul, [facility] [address] [facility] [address] [place] [address] [id number] Jul, [facility] [address] [facility] [address] [place] [address] [id number] Jul, SUPERVIS NORMAL 1ST PREG V22.0 [facility] [address] [facility] [address] [place] [address] [id number] Jul, SUPERVIS NORMAL 1ST PREG V22.0 and Placenta previa 762.[address] [place] [address] [id number] Jun, SUPERVIS NORMAL 1ST PREG V22.0 and Low back pain 724.[address] [place] [address] [id number] May, SUPERVIS NORMAL 1ST PREG V22.0 and VACCIN FOR INFLUENZA V04.[address] [place] [address] [id number] Apr, SUPERVIS NORMAL 1ST PREG V22.[address] [place] [address] [id number] Apr, [facility] [address] [facility] [address] [place] [address] [id number] Apr, [address] [place] [address] [id number] Apr, [address] [id number] Apr, SUPERVIS NORMAL 1ST PREG V22.[address] [place] [address] [id number] Mar, [address] [place] [address] [id number] Feb, SUPERVIS NORMAL 1ST PREG V22.[address] [facility] [address] [place], [place] [id number] Feb, Migraine without aura, with intractable migraine, with status migrainosus 346.13 and PREG COMPL NEC-UNSPEC 646.[address] [place] [address] [id number] Feb, [address] [place], [place] [id number] Jan, SUPERVIS NORMAL 1ST PREG V22.[address] [id number] Jan, [address] [id number] Jan, [address] [id number] Jan, Irregular menstrual cycle 626.[address] [id number] Jan, Irregular menstrual cycle 626.4 ; Tobacco use disorder 305.1 and Fatigue 780.79 [facility] [address] [id number] Jul, [facility] [address] [id number] Jun, [facility] [address] [id number] Jun, Weakness of muscles 728.87 ; Paresthesia 782.0 and Vitamin D deficiency NOS 268.9 [facility] [address] [id number] May, [facility] [address] [id number] May, Weakness of muscles 728.87 and Paresthesia 782.0 IMMUNIZATIONS Vaccine Route Administration Date Status TRIPP - Flu VACC 6 MONTHS > IM Intramuscular May 28 3 Administered SOCIAL HISTORY Never Assessed REASON FOR REFERRAL FUNCTIONAL STATUS PLAN OF CARE Activity Details VITAL SIGNS Height 5 ft 2 in in 2022-02-04 Height 62 in 2020-06-10 Height 62 in 2015-03-03 Height 62 in 2014-11-26 Height 62 in 2014-06-30 Height 62 in 2014-05-28 Height 62 in 2013-12-17 Height 62 in 2013-10-31 Height N/A in 2013-04-16 Height 62 in 2013-04-02 Height 62 in 2012-11-14 Height N/A in 2012-10-26 Height 62 in 2012-10-22 Height 62 in 2012-10-17 Height 62 in 2012-10-12 Height N/A in 2012-03-12 Height 62 in 2012-01-31 Height 62 in 2012-01-25 Height 62 in 2011-06-09 Weight 240 lbs 2022-02-04 Weight 260 lbs 2020-06-10 Weight 160.8 lbs 2015-03-03 Weight 162 lb 8 oz lbs 2014-11-26 Weight 158.2 lbs 2014-06-30 Weight 178.2 lbs 2014-05-28 Weight 187.4 lbs 2014-05-12 Weight 181 lbs 2014-05-05 Weight 179 lbs 2014-04-18 Weight 183 lbs 2014-04-10 Weight 185 lbs 2014-03-25 Weight 180.6 lbs 2014-03-04 Weight 189 lbs 2014-02-17 Weight 181.4 lbs 2014-01-17 Weight 176.8 lbs 2014-01-10 Weight 172 lbs 2013-12-17 Weight 170 lbs 2013-12-16 Weight 162.4 lbs 2013-11-19 Weight 171 lbs 2013-10-31 Weight 179 lbs 2013-04-16 Weight 178 lbs 2013-04-02 Weight 165.2 lbs 2012-11-14 Weight 164 lbs 2012-10-26 Weight 165 lb 0 oz lbs 2012-10-22 Weight 164.2 lbs 2012-10-17 Weight 168 lb 2 oz lbs 2012-10-12 Weight 188.2 lbs 2012-09-24 Weight 189.2 lbs 2012-09-19 Weight 187 lbs 2012-09-12 Weight 188.2 lbs 2012-09-05 Weight 189 lbs 2012-08-29 Weight 185.6 lbs 2012-08-22 Weight 180.2 lbs 2012-08-08 Weight 180.8 lbs 2012-07-27 Weight 180.4 lbs 2012-06-27 Weight 177.0 lbs 2012-05-28 Weight 179.2 lbs 2012-05-22 Weight 172.4 lbs 2012-04-26 Weight 173.0 lbs 2012-03-21 Weight 171 lbs 2012-03-12 Weight 171.0 lbs 2012-02-22 Weight 174.8 lbs 2012-01-31 Weight 174.4 lbs 2012-01-25 Weight 180.4 lbs 2011-06-09 Temperature 97.8 degrees Fahrenheit Temperature Tympanic:97.6 degrees Fahrenheit 2012-10-22 Heart Rate 109 /min 2022-02-04 Heart Rate 123 /min 2020-06-10 Heart Rate 73 /min 2015-03-03 Heart Rate 89 /min 2014-11-26 Heart Rate 96 /min 2013-12-17 Heart Rate 82 /min 2013-04-16 Heart Rate 88 /min 2013-04-02 Heart Rate 70 /min 2012-03-12 Heart Rate 76 /min 2011-06-09 Oximetry 96 2022-02-04 Oximetry 97 2020-06-10 Oximetry 100 2014-11-26 BMI 43.89 kg/m2 2022-02-04 BMI 47.55 kg/m2 2020-06-10 BMI 29.41 kg/m2 2015-03-03 BMI 29.72 kg/m2 2014-11-26 BMI 28.93 kg/m2 2014-06-30 BMI 32.59 kg/m2 2014-05-28 BMI 31.46 kg/m2 2013-12-17 BMI 31.27 kg/m2 2013-10-31 BMI 32.74 kg/m2 2013-04-16 BMI 32.55 kg/m2 2013-04-02 BMI 30.21 kg/m2 2012-11-14 BMI 29.99 kg/m2 2012-10-26 BMI 30.18 kg/m2 2012-10-22 BMI 30.03 kg/m2 2012-10-17 BMI 30.75 kg/m2 2012-10-12 BMI 31.27 kg/m2 2012-03-12 BMI 31.97 kg/m2 2012-01-31 BMI 31.89 kg/m2 2012-01-25 BMI 32.99 kg/m2 2011-06-09 Blood pressure systolic 110 mm Hg Blood pressure diastolic 80 mm Hg 2022-01 MEDICATIONS Medication Instructions Dosage Frequency Start Date End Date Duration Status Betamethasone Valerate 0.1 % Externally Twice a day 1 application 12h Not-Elio ing Hydroxychloroquine Sulfate 200 MG Orally Once a day 2 tablets 24h Active Cyclobenzaprine HCl 5 MG Orally Once a day 1 tablet at bedtime as needed 24h 30 day(s) Not-Elio ing Lyrica 150 MG Orally Twice a day 1 capsule 12h Active PARoxetine HCl 20 MG Orally Once a day 1 tablet in the morning 24h 30 day(s) Active Paxil 20 MG Orally Once a day 1 tablet in the morning 24h 30 day(s) Not-Elio ing Vyvanse 50 MG Orally Once a day 1 capsule in the morning 24h Not-Elio ing Famotidine 10 MG Orally Twice a day 1 tablet as needed 12h Active EpiPen 2-Carlos 0.3 MG/0.3ML as directed Active Methadone HCl 10 MG/5ML Orally every 12 hrs 5 ml as needed 12h Active Ibuprofen 400 MG Orally Q6-8H PRN 1 tablet with food or milk as needed Active Topiramate 50 MG Orally Twice a day 1 tablet 12h Active Metoprolol Succinate ER 25 MG Orally Once a day 2 tablets 24h Active Voltaren 1 % as directed Active Aspirin 81 MG Orally Once a day 1 tablet 24h 30 day(s) Active Senna 8.6 MG Orally Once a day 2 tablets 24h Not-Elio ing Naproxen 375 MG Orally every 12 hrs 1 tablet as needed 12h Active Mavyret Active Plavix 75 MG Orally Once a day 1 tablet 24h 30 day(s) Active NexIUM 20 MG Orally Once a day 1 capsule 24h 30 day(s) Not-Elio ing Tums 500 mg Orally Once a day 2 tablet 24h Not-Elio ing Lyrica 150 MG Orally Twice a day 1 capsule 12h Not-Elio ing MiraLax 17 GM Orally Once a day 1 packet mixed with 8 ounces of fluid 24h 30 day(s) Active Tylenol 325 MG Orally Q6H 1-2 tablets Active Ipratropium-Albutero l 0.5-2.5 (3) MG/3ML Nebulization every 6 hrs 3 mL as needed 6h Active OLANZapine 10 MG Orally Once a day 1.5 tablet 24h Active Lisinopril 10 MG Orally Once a day 1 tablet 24h 30 day(s) Not-Elio ing PROCEDURES Procedure Date Ordered Result Body Site SUBSEQUENT CARE May 12, 2014 SUBSEQUENT CARE Jan 10, 2014 IMMUNIZATION ADMINISTRATION May 28, 2012 INITIAL CARE VISIT Feb 22, 2012 SUBSEQUENT CARE August 29, 2012 SUBSEQUENT CARE August 08, 2012 SUBSEQUENT CARE June 27, 2012 SUBSEQUENT CARE Jan 17, 2014 CARE VISIT May 28, 2014 IH URINALYSIS NONAUTO W/O SCOPE Mar 04, 2014 SUBSEQUENT CARE September 18, 2012 CARE VISIT June 30, 2014 SUBSEQUENT CARE September 05, 2012 SUBSEQUENT CARE September 19, 2012 URINE TEST October 31, 2013 SUBSEQUENT CARE Mar 25, 2014 SUBSEQUENT CARE Mar 04, 2014 SUBSEQUENT CARE July 27, 2012 SUBSEQUENT CARE September 24, 2012 SUBSEQUENT CARE Apr 10, 2014 SUBSEQUENT CARE May 05, 2014 SUBSEQUENT CARE Apr 26, 2012 SUBSEQUENT CARE Dec 16, 2013 TRIPP - Flu VACC 6 MONTHS > May 28, 2012 SUBSEQUENT CARE Feb 17, 2014 SUBSEQUENT CARE Mar 21, 2012 INITIAL CARE VISIT November 19, 2013 SUBSEQUENT CARE August 22, 2012 SUBSEQUENT CARE May 28, 2012 SUBSEQUENT CARE May 22, 2012 SUBSEQUENT CARE September 12, 2012 IH URINALYSIS NONAUTO W/O SCOPE November 04, 2013 SUBSEQUENT CARE September 25, 2012 URINALYSIS NONAUTO W/O SCOPE Mar 03, 2015 SUBSEQUENT CARE Apr 18, 2014 RESULTS Name Result Date Reference Range CALCIUM CALCIUM CBC, WITH MANUAL DIFF 2021-08-23 WBC 5.9 4.8-10.8 RBC 4.20 4.20-5.40 HGB 10.2 12.0-16.0 HCT 35.4 37.0-47.0 MCV 84.3 81.0-99.0 MCH 24.3 27.0-31.0 MCHC 28.8 32.0-37.0 RDW-CV 16.3 11.5-14.5 PLT 245 130-400 MPV 10.9 7.4-10.4 MANUAL DIFF MANUAL DIFFERENTIAL SEGS 55 42-75 BANDS 3 0-6 LYMPHS 34 20-51 LOGAN. LYMPHS 1 <=1 MONOS 5 2-9 EOS 2 0-3 BASO 0-1 METAS MYELOS NRBC PLT ESTIMATE ADEQUATE ADEQUATE RBC MORPH ABNORMAL NORMAL ANISO POIK MICRO MACRO HYPO 1+ POLYCHROM PT/APTT PANEL 2021-08-23 PROTIME 10.0 9.1-10.6 INR 1.0 0.9-1.1 INR_TEXT THERAPEUTIC INR RANG ES FOR WARFARIN Uncomplicated venous thromboembolic disease 2 - 3 Lupus Anticoagulant and recurrent thrombosis 3 - 3.5 Mechanical prosthetic valve or recurrent thrombosis 2.5 - 3.5 APTT 25.3 21.3-28.4 BNP 2021-08-23 BNP 71 <=100 COMPREHENSIVE METABOLIC PROFILE 2021-08-23 SODIUM 138 134-143 POTASSIUM 3.2 3.5-5.1 CHLORIDE 99 98-111 CO2 27 22-32 CALCIUM 8.7 8.9-10.3 GLUCOSE 214 74-106 BUN 25 8-26 CREATININE 0.86 0.44-1.00 TOTAL BILIRUBIN 0.3 0.3-1.2 TOTAL PROTEIN 7.9 6.5-8.1 ALBUMIN 3.4 3.5-5.0 ALKALINE PHOS 137 38-130 AST 27 15-41 ALT 30 14-54 A/GAP 12.0 3.0-12.0 B/CR 29.1 8.0-20.0 OSMOLARITY 286 275-295 GLOBULIN 4.5 2.3-3.5 A/G 0.8 1.0-2.5 HCG SCREEN, SERUM 2021-08-23 HCG SERUM NEGATIVE NEGATIVE MAGNESIUM 2021-08-23 MAGNESIUM 1.7 1.8-2.5 TROPONIN I 2021-08-23 TROPONIN I <0.01 <=0.05 TROP HEAD Elevated levels of T roponin I are detectable in plasma within 3-6 hours after onset of myocardial infarction, reach peak concentrations in approximately 12-16 hours, and remain elevated for 4-9 days following an AMI. Any conditions resulting in myocardial damage can potentially increase cardiac Troponin I levels above the expected values. Clinical studies have documented these conditions to include: unstable angina, congestive heart failure, myocarditis, cardiac surgery, or invasive testing procedures. Arteritis, coronary embolism, and cocaine or amphetamine use potentially lead to elevated levels. URINALYSIS DIP w/REFLEX MICRO 2021-08-23 COLOR Yellow YELLOW CLARITY Clear CLEAR SPECIFIC GRAVITY 1.020 1.000-1.030 pH 5.0 5.0-8.0 PROTEIN Negative NEGATIVE GLUCOSE Negative NEGATIVE KETONES Negative NEGATIVE UROBILINOGEN 0.2 E.U./dL 0.2 E.U./DL BILIRUBIN Negative NEGATIVE BLOOD Negative NEGATIVE LEUKOCYTES Negative NEGATIVE NITRITES Negative NEGATIVE CT ANGIO HEAD 2021-08-23 CT ANGIO NECK 2021-08-23 XR CHEST 2 VIEW 2021-08-23 BASIC METABOLIC PROFILE 2018-04-21 SODIUM 145 136-145 POTASSIUM 4.4 3.5-5.1 CHLORIDE 111 98-111 CO2 31 22-32 CALCIUM 8.6 8.9-10.3 BUN 20 8-26 CREATININE 0.74 0.44-1.00 EGFR >60 EGFR CMT Multiply calculated EGFR by 1.025 for Afro-americans. A/GAP 3.0 3.0-12.0 OSMOLARITY 291 275-295 B/CR 27.0 8.0-20.0 CBC, WITH AUTO DIFF 2018-04-21 WBC 4.6 4.8-10.8 RBC 3.20 4.20-5.40 HGB 9.9 12.0-16.0 HCT 32.0 37.0-47.0 MCV 100.0 81.0-99.0 MCH 30.9 27.0-31.0 MCHC 30.9 32.0-37.0 RDW-CV 13.2 11.5-14.5 PLT 183 130-400 MPV 11.4 7.4-10.4 NE% 33.6 42.2-75.2 LY% 51.0 20.5-51.1 MO% 10.0 1.7-9.3 EO% 5.0 0.9-2.9 BA% 0.2 0.0-0.8 NE# 1.6 1.4-6.5 LY# 2.4 1.2-3.4 MO# 0.5 0.1-0.6 EO# 0.2 0.0-0.2 BA# 0.0 0.0-0.2 SMEAR COMMENT SEE COMMENTS SEE COMMENTS MAGNESIUM 2018-04-21 MAGNESIUM 1.6 1.8-2.5 UA Multistix (URO) 2015-03-03 Color yellow Clarity slightly cloudy Bilirubin Ketones neg Specific [place] Blood neg Glucose neg ph 8 Protein neg Leukocytes trace Nitrates neg Uro Leukocytes CBC, NO DIFF 2014-11-28 WBC 7.2 4.8-10.8 RBC 3.96 4.20-5.40 HGB 12.5 12.0-16.0 HCT 37.6 37.0-47.0 MCV 94.9 81.0-99.0 MCH 31.6 27.0-31.0 MCHC 33.2 32.0-37.0 RDW-CV 12.5 11.5-14.5 PLT 267 130-400 CULTURE URINE & COLONY COUNT 2014-11-26 X URINALYSIS, DIP ONLY 2014-11-26 CLARITY Clear COLOR Dk Yellow NITRITES Neg REDUCING SUBSTANCES SPECIFIC GRAVITY UROBILINOGEN BILIRUBIN BLOOD Trace GLUCOSE Neg KETONES Neg pH 5 PROTEIN Trace LEUKOCYTES Trace HEMATOCRIT 2014-05-23 HCT 25.2 37.0-47.0 HEMOGLOBIN/HEMATOCRIT 2014-05-22 HGB 6.0 12.0-16.0 HCT 19.6 37.0-47.0 HEMOGLOBIN/HEMATOCRIT 2014-05-21 HGB 5.4 12.0-16.0 HCT 17.1 37.0-47.0 CBC, WITH AUTO DIFF 2014-05-20 WBC 6.7 4.8-10.8 RBC 3.46 4.20-5.40 HGB 9.9 12.0-16.0 HCT 31.3 37.0-47.0 MCV 90.5 81.0-99.0 MCH 28.6 27.0-31.0 MCHC 31.6 32.0-37.0 RDW-CV 12.3 11.5-14.5 PLT 143 130-400 MPV 12.3 7.4-10.4 NE% 51.9 42.2-75.2 LY% 38.5 20.5-51.1 MO% 7.7 1.7-9.3 EO% 0.9 0.9-2.9 BA% 0.2 0.0-0.8 NE# 3.5 1.4-6.5 LY# 2.6 1.2-3.4 MO# 0.5 0.1-0.6 EO# 0.1 0.0-0.2 BA# 0.0 0.0-0.2 IMMEDIATE SPIN CROSSMATCH 2014-05-20 PT ABORh: O POSITIVE UNIT ABORh: O POSITIVE UNIT #: [id number] UNIT EXP DATE: 06/11/2014 BLOOD COMPONENT LRBC CROSSMATCH INTERP: COMPATIBLE RBC VOLUME APPROXIMATELY 350 mL. RBC COMP CHART RED CELL ABO COMPATI BILITY PATIENT TYPE COMP RBCs O POSITIVE O +/= A POSITIVE A +/=;O +/= B POSITIVE TRXN PROC IF THERE IS A SUSPEC RADHA TRANSFUSION REACTION 1. Stop the transfusion. 2. Notify the pt's MD and the laboratory. 3. Unless only urticaria, return the unit with all attached fluids and tubin PACKED RED BLOOD CELLS 3 UNITS 2014-05-20 COMPLETE: YES IMMEDIATE SPIN CROSSMATCH 2014-05-20 PT ABORh: O POSITIVE UNIT ABORh: O POSITIVE UNIT #: [id number] UNIT EXP DATE: 06/11/2014 BLOOD COMPONENT LRBC CROSSMATCH INTERP: COMPATIBLE RBC VOLUME APPROXIMATELY 350 mL. RBC COMP CHART RED CELL ABO COMPATI BILITY PATIENT TYPE COMP RBCs O POSITIVE O +/= A POSITIVE A +/=;O +/= B POSITIVE TRXN PROC IF THERE IS A SUSPEC RADHA TRANSFUSION REACTION 1. Stop the transfusion. 2. Notify the pt's MD and the laboratory. 3. Unless only urticaria, return the unit with all attached fluids and tubin IMMEDIATE SPIN CROSSMATCH 2014-05-20 PT ABORh: O POSITIVE UNIT ABORh: O POSITIVE UNIT #: [id number] UNIT EXP DATE: 06/17/2014 BLOOD COMPONENT LRBC CROSSMATCH INTERP: COMPATIBLE RBC VOLUME APPROXIMATELY 350 mL. RBC COMP CHART RED CELL ABO COMPATI BILITY PATIENT TYPE COMP RBCs O POSITIVE O +/= A POSITIVE A +/=;O +/= B POSITIVE TRXN PROC IF THERE IS A SUSPEC RADHA TRANSFUSION REACTION 1. Stop the transfusion. 2. Notify the pt's MD and the laboratory. 3. Unless only urticaria, return the unit with all attached fluids and tubin URINE DIP ([facility]) 2014-05-12 Color Clarity Glucose normal Bilirubin Ketones Specific [place] Blood PH Protein negative Uro Nitrates Leukocytes URINE DIP ([facility]) 2014-05-05 Color Clarity Glucose normal Bilirubin Ketones Specific [place] Blood PH Protein trace Uro Nitrates Leukocytes URINE DIP ([facility]) 2014-04-18 Color Clarity Glucose normal Bilirubin Ketones Specific [place] Blood PH Protein negative Uro Nitrates Leukocytes US OB GREATER THAN 14 WEEKS AND GESTATIONS 2014-05-05 URINE DIP ([facility]) 2014-04-10 Color Clarity Glucose negative Bilirubin Ketones Specific [place] Blood PH Protein trace Uro Nitrates Leukocytes URINE DIP ([facility]) 2014-03-25 Color Clarity Glucose +250 Bilirubin Ketones Specific [place] Blood PH Protein negative Uro Nitrates Leukocytes US OB FOLLOW UP 2014-04-10 US OB GREATER THAN 14 WEEKS AND GESTATIONS 2014-04-10 GLUCOSE JM - 3HR 2014-03-13 FASTING 82 <=95 1 HOUR GLUCOSE 169 <=180 2 HR GLUCOSE 131 <=155 3 HR GLUCOSE 83 <=140 URINE DIP ([facility]) 2014-03-04 Color dk yellow Clarity cloudy Glucose +100 Bilirubin neg Ketones ++ Specific [place] 1.015 Blood trace PH 6 Protein trace Uro neg Nitrates neg Leukocytes + CULTURE URINE 2014-03-04 FIBRONECTIN 2014-03-04 FIBRONECTIN NEGATIVE NEGATIVE FFN_TEXT Interpretation of NE GATIVE result: a) 124 out of 125 symptomatic women with a negative result will not deliver within the next 14 days. b) 15 out of 16 high-risk asymptomatic women with a negative r CBC, WITH AUTO DIFF 2014-03-04 WBC 9.7 4.8-10.8 RBC 3.33 4.20-5.40 HGB 11.0 12.0-16.0 HCT 32.8 37.0-47.0 MCV 98.5 81.0-99.0 MCH 33.0 27.0-31.0 MCHC 33.5 32.0-37.0 RDW-CV 12.6 11.5-14.5 PLT 196 130-400 MPV 11.3 7.4-10.4 NE% 69.9 42.2-75.2 LY% 19.9 20.5-51.1 EO% 1.0 0.9-2.9 BA% 0.2 0.0-0.8 NE# 6.8 1.4-6.5 LY# 1.9 1.2-3.4 MO# 0.8 0.1-0.6 EO# 0.1 0.0-0.2 BA# 0.0 0.0-0.2 MAN DIFF? NO HIV 1/0/2 ANTIBODIES

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
--- NOTE | 2022-06-07 11:30 | PAPNONF_PTH ---
PATIENT: Ghada Ervin LOC: [facility] U#:[id number] AGE/SX: 31/F ROOM: RE06/07/[address]: Espinoza Rao MD : [id number] BED: DIS: 06/07/2022 SPEC #: [id number] RECD: 06/07/22 12:54 STATUS: DANIELLEHéctor REQ #: [id number] ISIDRO: 06/07/22 11:[address]: Espinoza Rao DEPT: [facility] Cytology RECD BY: Marla Spivey ENTERED: 06/07/22 12:56 SP TYPE: KADIE GRAVES DR: Alistair Ramos Tissues: 1 - BODY FLUID CYTO-FINE NEEDLE ASPIRATE-[facility] Procedures: BODY FLUID CYTO-FINE NEEDLE ASPIRATE-[facility] Comments: [id number] (PATH FNA CONSULT) (REFRIGERATED)
--- NOTE | 2022-06-07 11:50 | W.PROCNOTE ---
Date of service: 06/07/22 Time of Service: 11:50 Procedure Note Date of procedure: 06/07/22 Procedure: Ultrasound-guided FNA, right thyroid nodule, pathology available Procedure Diagnosis: Right thyroid nodule Procedure Indications: Patient has a right-sided thyroid nodule that meets criteria for biopsy. Options were explained to the patient regarding further management. She elected to removing the procedure. Pathology was available to check for cellular adequacy. Consent was filled out and signed prior to surgery. She stopped her Plavix 7 days prior to procedure. Procedure Description: The patient was positioned in supine position with her head extended. Ultrasound was used to localize the right-sided thyroid nodule, and then the patient was prepped and draped in appropriate fashion. 1% lidocaine with 1/100,000 epinephrine was injected in the skin and subcutaneous tissues medial to the nodule and then a 25-gauge needle passed into the thyroid nodule, and checking for placement using the ultrasound. Specimen was examined by pathology revealing adequate cellularity. 2 additional passes were made for Afirma testing in case this was deemed necessary. There was no significant bleeding. Sterile dressing was applied. The patient was allowed to sit up and ambulate. Her vital signs remained stable. She will remove the bandage tonight. She will call if she does not hear from us by next Monday with regard to the results of the pathology. She will restart her Plavix. She will do this tomorrow. She had no further questions. She will call with any signs of infection or any other concerns. I was present throughout the entire procedure.
== END 2022-06-07 01:20 ==
LOC: DI 01:01
PROVIDERS: PCP Family Medicine; Visit Provider Otolaryngology
DX: E04.1 Nontoxic single thyroid nodule (principal)
CPT/HCPCS: 76942; 88104

== ENCOUNTER 2022-08-16 15:58 | Emergency (ER) | payer MEDICARE, MEDICAID, SELFPAY ==
--- NOTE | 2022-08-16 16:00 | RT.EKG_ITS ---
APPROVED REPORT Exam: Resting ECG Reason for Exam: SOB Patient Location: E HR:80 bpm ECG Measurements Heart Rate 80 AXIS MD 142 P 0 QRSd 108 QRS -17 QT 389 T 26 QTc 450 Conclusion Sinus rhythm...normal P axis, V-rate 60- 99
[2022-08-16 16:02] VITALS: BP 151/99; PULSE 106; RESP 20; O2SAT 94
--- OUTSIDE RECORDS SUMMARY | 2022-08-16 16:10 | XMS_ITS ---
Author Name Dawson Cox Address [address] [place], [place] [id number] Organization [facility] Address [address], [place] [id number] Care Team Providers Care Trauma Manager Name Role Phone Dawson Cox Unavailable [phone] PROBLEMS Type Condition ICD9-CM Code DLO25-FD Code Onset Dates Condition Status SNOMED Code Problem Weakness of muscles 728.87 Active 2654 4005 Problem Paresthesia 782.0 Active 87640866 Problem Migraine without aura, with intractable migraine, with status migrainosus 346.13 Active 906813528 Problem Vitamin D deficiency NOS 268.9 Active 30884127 Problem Arthralgia of multiple joints 719.49 Active 01401028 Problem 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 Active 75007459 Problem Anxiety F41.9 Active 63608632 Problem Psoriasis L40.9 Active 4804527 Problem Chronic pain syndrome 338.4 Active 591660432 Problem Other chronic pain G89.29 Active 27015 001 Problem Scoliosis, idiopathic 737.30 Active 859341100 Problem Encounter for gynecological examination (general) (routine) without abnormal findings Z01.419 Active 912815249172514 Problem Decreased appetite R63.0 Active 88787 006 Problem Oropharyngeal dysphagia R13.12 Active 88325584 Problem Encounter for screening for other viral diseases Z11.59 Active 204792992 ALLERGIES Substance Reaction Event Type Date Status Zoloft Unknown Drug Allergy 14 Jan, 2022 Active Bee Stings Anaphylaxis Non Drug Allergy Jan, Activ e [place] Carbonate Unknown Drug Allergy Jan, Act amber Demerol Anaphylaxis Drug Allergy Jan, Active ENCOUNTERS Encounter Location Date Diagnosis [facility] [address], [address] [place], [place] [id number] Jan, [facility] [address] [place] [address] [place] [id number] Jan, [facility] [address], [address] [place], [place] [id number] Jan, Psoriasis L40.9 ; Low back pain, unspecified M54.50 and Other chronic pain G89.29 [facility] [address], [address] [place], [place] [id number] Jan, [facility] [address] [place] [id number] May, [facility] [address] [place] [address] [id number] May, Dyspepsia R10.13 ; Pyrosis R12 ; Oropharyngeal dysphagia R13.12 ; Non-intractable vomiting without nausea, unspecified vomiting type R11.11 ; Decreased appetite R63.0 ; Drug-induced constipation K59.03 ; Chronic, continuous use of opioids F11.90 and Hematochezia K92.[address] [place] [id number] May, [facility] [address] [place] [address] [id number] Mar, [facility] [address] [place] [id number] Mar, Encounter for screening for other viral diseases Z11.[address] [place] [id number] Feb, [facility] [address] [place] [address] [id number] Feb, Dyspepsia R10.13 ; Pyrosis R12 ; Oropharyngeal dysphagia R13.12 ; Non-intractable vomiting without nausea, unspecified vomiting type R11.11 ; Decreased appetite R63.0 ; Drug-induced constipation K59.03 ; Chronic, continuous use of opioids F11.90 and Hematochezia K92.[address] [place] [id number] Jan, [facility] [address] [id number] Feb, Personal history of urinary (tract) infections Z87.440 and Upper abdominal pain, unspecified R10.[address] [facility] [address] [id number] Jan, Calculus of ureter N20.[address] [facility] [address] [id number] Nov, [address] [id number] Nov, [facility] [address] [id number] Nov, [facility] [address] [id number] Nov, Kidney stones 592.0 ; Anxiety 300.00 ; Bipolar affective disorder, depressed 296.50 ; Chronic pain syndrome 338.4 ; UTI (lower urinary tract infection) 599.0 and Ureteral calculus 592.[address] [facility] [address] [id number] Nov, [address] [id number] Jun, ROUT POSTPART FOLLOW-UP V24.2 and Migraine without aura, with intractable migraine, with status migrainosus 346.[address] [id number] May, [address] [id number] May, [address] [id number] May, Postop check V67.[address] [id number] May, [address] [id number] Apr, [address] [id number] Apr, SUPERVIS OTH NORMAL PREG V22.1 ; Twin gestation, unable to determine number of placenta and number of amniotic sacs V91.09 ; Abnormal glucose in , antepartum 648.83 and Previous delivery, antepartum 654.[address] [id number] Apr, SUPERVIS OTH NORMAL PREG V22.[address] [id number] Apr, [address] [id number] Mar, SUPERVIS OTH NORMAL PREG V22.1 and Twin gestation, unable to determine number of placenta and number of amniotic sacs V91.[address] [id number] Mar, SUPERVIS OTH NORMAL PREG V22.1 and Twin gestation, monochorionic/diamniotic (one placenta, two amniotic sacs) 651.[address] [id number] Mar, SUPERVIS OTH NORMAL PREG V22.1 ; GERD (gastroesophageal reflux disease) 530.81 and Twin gestation, monochorionic/diamniotic (one placenta, two amniotic sacs) 651.[address] [id number] Feb, Abnormal glucose in , antepartum 648.[address] [id number] Feb, SUPERVIS OTH NORMAL PREG V22.1 ; THREAT ROSALVA LABOR-UNSPEC 644.00 and Twin gestation, unable to determine number of placenta and number of amniotic sacs V91.[address] [id number] Feb, [address] [id number] Feb, [address] [id number] Jan, [facility] [address] [facility] [address] [place] [id number] Jan, SUPERVIS OTH NORMAL PREG V22.1 ; Tobacco use disorder 305.1 and Twin gestation, unable to determine number of placenta and number of amniotic sacs V91.[address] [place] [address] [id number] Dec, SUPERVIS OTH NORMAL PREG V22.1 and Twin gestation, unable to determine number of placenta and number of amniotic sacs V91.[address] [place] [address] [id number] Dec, Heart palpitations 785.[address] [id number] Dec, [address] [id number] Dec, [facility] [address] [id number] Nov, Migraine without aura, with intractable migraine, with status migrainosus 346.13 and PREG COMPL NEC-UNSPEC 646.[address] [id number] Nov, SUPERVIS OTH NORMAL PREG V22.1 and Twin gestation, unable to determine number of placenta and number of amniotic sacs V91.[address] [id number] Nov, [address] [place] [address] [id number] Nov, [address] [place] [address] [id number] Oct, Supervision of other normal V22.1 and GERD 530.[address] [id number] Oct, [address] [place] [address] [id number] Oct, Nausea & vomiting 787.[address] [place] [address] [id number] Oct, Dysuria 788.1 [place] [address] [facility] [address] [place] [address] [id number] Oct, [facility] [address] [facility] [address] [place] [address] [id number] Oct, Irregular menses 626.4 and Tobacco use disorder 305.1 [facility] [address] [facility] [address] [place] [id number] Mar, [facility] [address] [facility] [address] [place] [id number] Mar, 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 ; Chronic pain syndrome 338.4 and Vitamin D deficiency NOS 268.9 [facility] [address] [place], [place] [id number] Mar, [facility] [address] [place], [place] [id number] Mar, Arthralgia of multiple joints 719.49 ; 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 ; Vitamin D deficiency NOS 268.9 and Weakness of muscles 728.87 [facility] [address] [facility] [address] [place] [id number] Feb, [address] [place] [address] [id number] Oct, Contraception management V25.[address] [place] [address] [id number] Oct, FOLLOW-UP SURGERY NOS V67.[address] [place] [address] [id number] Oct, FOLLOW-UP SURGERY NOS V67.[address] [place] [address] [id number] Oct, FOLLOW-UP SURGERY NOS V67.[address] [place] [address] [id number] Sep, [address] [place] [address] [id number] Sep, FOLLOW-UP SURGERY NOS V67.00 [facility] [address] [facility] [address] [place] [address] [id number] Sep, [address] [place] [address] [id number] Sep, FOLLOW-UP SURGERY NOS V67.00 [facility] [address] [facility] [address] [place], [place] [id number] Sep, [address] [place] [address] [id number] 14 Sep, [address] [id number] 12 Sep, 2012 Anemia complicating , childbirth, and the puerperium, delivered, w 648.[address] [place] [address] [id number] Sep, [address] [id number] Sep, Other threatened labor, antepartum condition or complication 644.[address] [id number] Sep, SUPERVIS NORMAL 1ST PREG V22.[address] [id number] August, SUPERVIS NORMAL 1ST PREG V22.[address] [id number] August, Other threatened labor, antepartum condition or complication 644.13 and SUPERVIS NORMAL 1ST PREG V22.[address] [id number] August, SUPERVIS NORMAL 1ST PREG V22.[address] [id number] August, SUPERVIS NORMAL 1ST PREG V22.[address] [id number] August, SUPERVIS NORMAL 1ST PREG V22.0 and Other threatened labor, antepartum condition or complication 644.[address] [id number] August, SUPERVIS NORMAL 1ST PREG V22.0 ; SUPERVIS OTH NORMAL PREG V22.1 and Low back pain 724.[address] [id number] August, SUPERVIS OTH NORMAL PREG V22.1 and Low back pain 724.[address] [place], [place] [id number] Jul, [facility] [address] [facility] [address] [place] [address] [id number] Jul, [facility] [address] [facility] [address] [place] [address] [id number] Jul, SUPERVIS NORMAL 1ST PREG V22.0 [facility] [address] [facility] [address] [place] [address] [id number] Jul, SUPERVIS NORMAL 1ST PREG V22.0 and Placenta previa 762.[address] [place] [address] [id number] Jun, SUPERVIS NORMAL 1ST PREG V22.0 and Low back pain 724.[address] [place] [address] [id number] May, SUPERVIS NORMAL 1ST PREG V22.0 and VACCIN FOR INFLUENZA V04.[address] [place] [address] [id number] Apr, SUPERVIS NORMAL 1ST PREG V22.[address] [place] [address] [id number] Apr, [facility] [address] [facility] [address] [place] [address] [id number] Apr, [address] [place] [address] [id number] Apr, [address] [id number] Apr, SUPERVIS NORMAL 1ST PREG V22.[address] [place] [address] [id number] Mar, [address] [place] [address] [id number] Feb, SUPERVIS NORMAL 1ST PREG V22.0 [facility] [address] [place], [place] [id number] Feb, Migraine without aura, with intractable migraine, with status migrainosus 346.13 and PREG COMPL NEC-UNSPEC 646.[address] [place] [address] [id number] Feb, [address] [place], [place] [id number] Jan, SUPERVIS NORMAL 1ST PREG V22.[address] [id number] Jan, [address] [id number] Jan, [address] [id number] Jan, Irregular menstrual cycle 626.[address] [id number] Jan, Irregular menstrual cycle 626.4 ; Tobacco use disorder 305.1 and Fatigue 780.79 [facility] [address] [id number] Jul, [facility] [address] [id number] Jun, [facility] [address] [id number] Jun, Weakness of muscles 728.87 ; Paresthesia 782.0 and Vitamin D deficiency NOS 268.9 [facility] [address] [id number] May, [facility] [address] [id number] May, Weakness of muscles 728.87 and Paresthesia [...] Date Ordered Result Body Site SUBSEQUENT CARE Apr 18, 2014 URINALYSIS NONAUTO W/O SCOPE Mar 03, 2015 SUBSEQUENT CARE August 22, 2012 INITIAL CARE VISIT Feb 22, 2012 SUBSEQUENT CARE Dec 16, 2013 SUBSEQUENT CARE August 08, 2012 SUBSEQUENT CARE May 05, 2014 SUBSEQUENT CARE June 27, 2012 SUBSEQUENT CARE September 25, 2012 CARE VISIT May 28, 2014 URINE TEST October 31, 2013 IH URINALYSIS NONAUTO W/O SCOPE November 04, 2013 SUBSEQUENT CARE September 05, 2012 SUBSEQUENT CARE September 19, 2012 SUBSEQUENT CARE Jan 10, 2014 IMMUNIZATION ADMINISTRATION May 28, 2012 SUBSEQUENT CARE Mar 04, 2014 SUBSEQUENT CARE Mar 21, 2012 IH URINALYSIS NONAUTO W/O SCOPE Mar 04, 2014 SUBSEQUENT CARE May 22, 2012 SUBSEQUENT CARE Apr 10, 2014 SUBSEQUENT CARE September 24, 2012 TRIPP - Flu VACC 6 MONTHS > May 28, 2012 SUBSEQUENT CARE Jan 17, 2014 INITIAL CARE VISIT November 19, 2013 SUBSEQUENT CARE May 12, 2014 SUBSEQUENT CARE July 27, 2012 CARE VISIT June 30, 2014 SUBSEQUENT CARE Apr 26, 2012 SUBSEQUENT CARE September 12, 2012 SUBSEQUENT CARE August 29, 2012 SUBSEQUENT CARE Feb 17, 2014 SUBSEQUENT CARE September 18, 2012 SUBSEQUENT CARE Mar 25, 2014 SUBSEQUENT CARE May 28, 2012 RESULTS Name Result Date Reference Range CALCIUM [...] Clarity slightly cloudy Bilirubin Ketones neg Specific [place] Blood neg Glucose neg ph 8 Protein [...] ABORh: O POSITIVE UNIT #: [id number] UNIT EXP DATE: 06/11/2014 BLOOD COMPONENT [...] POSITIVE UNIT ABORh: O POSITIVE UNIT #: [id number] UNIT EXP DATE: 06/11/2014 BLOOD COMPONENT LRBC [...] ABORh: O POSITIVE UNIT #: [id number] UNIT EXP DATE: 06/17/2014 BLOOD COMPONENT [...] all attached fluids and tubin URINE DIP ([facility]) 2014-05-12 Color Clarity Glucose normal Bilirubin Ketones Specific [place] Blood PH Protein negative Uro Nitrates Leukocytes URINE DIP ([facility]) 2014-05-05 Color Clarity Glucose normal Bilirubin Ketones Specific [place] Blood PH Protein trace Uro Nitrates Leukocytes URINE DIP ([facility]) 2014-04-18 Color Clarity Glucose normal Bilirubin Ketones Specific [place] Blood PH Protein negative Uro Nitrates Leukocytes US OB GREATER THAN 14 WEEKS AND GESTATIONS 2014-05-05 URINE DIP ([facility]) 2014-04-10 Color Clarity Glucose negative Bilirubin Ketones Specific [place] Blood PH Protein trace Uro Nitrates Leukocytes URINE DIP ([facility]) 2014-03-25 Color Clarity Glucose +250 Bilirubin Ketones Specific [place] Blood PH Protein negative Uro Nitrates Leukocytes US OB FOLLOW UP 2014-04-10 US OB GREATER THAN 14 WEEKS AND GESTATIONS 2014-04-10 GLUCOSE JM - 3HR 2014-03-13 FASTING 82 <=95 1 HOUR GLUCOSE 169 <=180 2 HR GLUCOSE 131 <=155 3 HR GLUCOSE 83 <=140 URINE DIP ([facility]) 2014-03-04 Color dk yellow Clarity cloudy Glucose +100 Bilirubin neg Ketones ++ Specific [place] 1.015 Blood trace PH 6 Protein trace [...] 1 HR POST 189 <=135 URINE DIP ([facility]) 2014-02-17 Color Clarity Glucose 50 Bilirubin Ketones Specific [place] Blood PH Protein trace Uro Nitrates Leukocytes GLUCOSE JM GESTATIONAL(50GM) 2014-03-04 GLUCOSE - 1 HR POST US OB FOLLOW UP 2014-03-04 OB GREATER THAN 14 WEEKS AND GESTATIONS 2014-03-04 URINE DIP ([facility]) 2014-01-17 Color Clarity Glucose +100 Bilirubin Ketones Specific [place] Blood PH Protein negative Uro Nitrates Leukocytes [...] Color Clarity Glucose negative Bilirubin Ketones Specific [place] Blood PH Protein trace Uro Nitrates Leukocytes [...] TYPE ANTIBODY SCREEN TS COMMENT URINE DIP ([facility]) Color eder Clarity cloudy Glucose negative Bilirubin negative Ketones negative Specific [place] 1.020 Blood trace PH 6 Protein trace Uro negative Nitrates negative Leukocytes 2 + CULTURE URINE 2013-11-04 Test (Rapid) Urine 2013-10-31 Result positive Control Passed US OB LESS THAN 14 WEEKS 2013-11-19 ALDOLASE ([id number]) 2013-04-02 Aldolase 5.7 1.2-7.6 CBC, WITH AUTO [...] RATE 2013-04-02 ESR 10 <=20 ALFREDO W/REFLEX ([id number]) 2013-04-02 ALFREDO Direct Negative Negative ANTI-CCP IgG ANTIBODY ([id number]) 2013-04-02 CCP Antibodies IgG/IgA 5 0-19 CREATINE [...] (CRP) 2013-04-02 CRP 3.3 <=9.0 RHEUMATOID FACTOR ([id number]) 2013-04-02 RA Latex Turbid 8.3 0.0-13.9 URIC [...] 2012-09-27 ABORH TYPE O POSITIVE URINE DIP ([facility]) 2012-09-24 Color Clarity Glucose negative Bilirubin Ketones Specific [place] Blood PH Protein negative Uro Nitrates Leukocytes URINE DIP ([facility]) 2012-09-19 Color Clarity Glucose negative Bilirubin Ketones Specific [place] Blood PH Protein negative Uro Nitrates Leukocytes URINE DIP ([facility]) Color Clarity Glucose negative Bilirubin Ketones Specific [place] Blood PH Protein negative Uro Nitrates Leukocytes URINE DIP ([facility]) 2012-09-05 Color Clarity Glucose negative Bilirubin Ketones Specific [place] Blood PH Protein negative Uro Nitrates Leukocytes GROUP-B STREP SCREEN - RAPID PCR 2012-08-29 Group B Strep by PCR NEGATIVE NEGATIV E URINE DIP ([facility]) 2012-08-22 Color Clarity Glucose negative Bilirubin Ketones Specific [place] Blood PH Protein negative Uro Nitrates Leukocytes URINE DIP ([facility]) 2012-08-08 Color Clarity Glucose negative Bilirubin Ketones Specific [place] Blood PH Protein negative Uro Nitrates Leukocytes URINE DIP ([facility]) 2012-07-27 Color Clarity Glucose negative Bilirubin Ketones Specific [place] Blood PH Protein trace Uro Nitrates Leukocytes US OB LIMITED 2012-08-08 CBC, WITH AUTO DIFF 2012-06-27 SMEAR? YES SMEAR COMMENT SEE COMMENTS SEE COMMENTS GLUCOSE JM GESTATIONAL(50GM) 2012-06-27 URINE DIP ([facility]) 2012-06-27 Color Clarity Glucose negative Bilirubin Ketones Specific [place] Blood PH Protein trace Uro Nitrates Leukocytes URINE DIP ([facility]) Color Clarity Glucose negative Bilirubin Ketones Specific [place] Blood PH Protein negative Uro Nitrates Leukocytes URINE DIP ([facility]) 2012-04-26 Color Clarity Glucose 100 Bilirubin Ketones Specific [place] Blood PH Protein negative Uro Nitrates Leukocytes URINE DIP ([facility]) 2012-03-21 Color Clarity Glucose negative Bilirubin Ketones Specific [place] Blood PH Protein negative Uro Nitrates Leukocytes [...] Color Clarity Glucose negative Bilirubin Ketones Specific [place] Blood PH Protein negative Uro Nitrates Leukocytes [...] (CK) 2011-06-09 GLUCOSE 2011-06-09 PROTEIN ELECTROPHORESIS, SERUM ([id number]) 2011-06-09 Protein, Total, Serum 6.6 6.0-8. 5 Albumin 3.7 3.2-5.6 Oevmp-6-Ovszxzzr 0.3 0.1-0.4 Krukp-1-Mbapdpvr 0.8 0.4-1.2 Beta Globulin 0.9 0.6-1.3 Gamma Globulin 0.9 0.5-1.6 M-Logan Not Observed Not Observed Globulin, Total 2.9 2.0-4.5 A/G Ratio 1.3 0.7-2.0 Please note: Comment 25-HYDROXYVITAMIN D LCMS D2+D3 ([id number]) 2011-06-09 REASON FOR VISIT ENT- Psoriasis 1 mo check, SORILUX, ENT- Psoriasis, CHART PRELOAD, GI- COLO EGD 2 week f/u, GI- COLO EGD , MEDICATION UPDATE , talk about having a colooscopy , waiting Questions/colonoscopy, pt needsappt w/Silke, GI- GI COLO EGD 2 week f/u, GI- COLO EGD , COVID TEST , Cardiac Clearance , GI-Dyspepsia., LVM to reschedule appointment, GI-Dyspepsia, 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 Greenberg pt). , low K and Mg levels , unable to make this appt, pain, URO-cysto, L retrograde, possible ureteroscopy, holmium laser/stent, patient, URO-recurrent UTI's, ureteral calculus, renal calculus, s/w nurse abt illness, OB 6 week post op , pain, *Oxycodone, pt seen 05/28/14, WIRE WORKER continued swelling and pain, migraines restarted, pain medication, WIRE WORKER twin , OB follow up ob , Preop for Cearean with BTL, OB ob fu ultrasound scheduled for 05/05/14 @ 9:00, swollen leg, OB follow up ob, getting more uncomfortable, palpitations, occasioal emesis, OB ob fu [id number]/18/14 @ 2:00, OB ob fu, 3 hr [...] tox screen, car trouble, script request, migraine, WIRE WORKER fu ultrasound, *what to take for pain - FYI, morning sickness/vomiting, WIRE WORKER - UTI symptoms, ?U TI - FYI, WIRE WORKER + test-has a lot of questions regarding her pain meds, RHE f/u on tests, Hands swollen and joints aching , fell and hurt right knee the other day /KN, Corrected sed rate, RHE r/s to dec due to ins., Being seen at [facility] [place] , pain is all over /KN, Has not started the Oxycontin yet , because of insurance /Kn, RHE r/s to dec due to ins., sent out paper work , WIRE WORKER 7 wks post ; 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 oozing brown fluid, swollen and painful, FYI-incision concerns, WIRE WORKER issues with incision; still draining blood and 8/10 pain when not taking pain medications, pain, WIRE WORKER 1 wk follow up-swelling has gone down considerably. is tender on the sides of incision, is still draining some blood, incision concerns, script, WIRE WORKER not feeling well, plan, OB ? labor, [...] with robitussin. isn't really helping, sick, migraines, WIRE WORKER follow up after u ltrasound-ultrasound showed 6 week + fetus, WIRE WORKER follow up after ultrasound, WIRE WORKER + preg test at [facility]/meet and [...] Group No [place] MED[place] [address] [facility] [id number] [phone] [place] self Ghada Ervin [id number] [place] [address] [facility] [id number] [phone] [place] self Ghada Arcadio [id number]
--- NOTE | 2022-08-16 16:12 | W.ED.GENAD ---
Discharge Plan Disposition Patient Disposition: Home Condition: Good Discharge Details Clinical Impression: Achilles bursitis or tendinitis Primary Care Provider: Alistair Ramos ED Provider: Saul Hernánedz Home Meds and New Rx's Prescriptions: New naproxen 375 mg tablet 375 mg PO BID PRNQty: 20 0RF Continued Vyvanse 40 mg capsule 50 mg PO DAILY Patient Comments: pt states im not on it anymore olanzapine 5 mg tablet 15 mg PO HS ferrous sulfate 325 mg (65 mg iron) tablet 325 mg PO DAILY dimenhydrinate 50 mg tablet 50 mg PO Q8H PRN famotidine 10 mg tablet 10 mg PO DAILY methadone 10 mg/5 mL solution 5 mg PO DIRECTED paroxetine HCl [Paxil] 10 mg Tablet 20 mg PO HS albuterol sulfate 90 mcg/actuation Hfa Aerosol Inhaler 2 puff INHALATION Q4H PRN docusate sodium [Docusil] 100 mg capsule 100 mg PO DAILY Qty: 60 0RF Patient Comments: do not take anymore sennosides [Senna Laxative] 8.6 mg tablet 17.2 mg PO DAILY Patient Comments: pt states no I dont take that methadone 10 mg/5 mL Solution 90 mg PO DAILY Patient Comments: duplicate order polyethylene glycol Powder 17 pwd MISCELLANEOUS DAILY PRN clopidogrel [Plavix] 75 mg tablet 75 mg PO DAILY Qty: 60 0RF aspirin [Aspir-81] 81 mg Tablet,Delayed Release (Dr/Ec) 81 mg PO DAILY hydroxyzine HCl 25 mg Tablet 25 mg PO TID PRN Patient Comments: does not take metoprolol succinate 25 mg Tablet Extended Release 24 Hr 50 mg PO DAILY naproxen 375 mg Tablet,Delayed Release (Dr/Ec) 375 mg PO BID Patient Comments: pateint states I do not take that cyclobenzaprine 5 mg Tablet 5 mg PO BID fluticasone propion-salmeterol [Advair Diskus] 500-50 mcg/dose blister with device 1 inh INHALATION BID diclofenac sodium 1 % gel 1 applic TOPICAL QID Patient Comments: APPLY A SMALL AMOUNT TO AFFECTED AREA FOUR TIMES A DAY NEEDED - MAX TOTAL BODY DOSE ( ALL COMBINED AREAS) 32 GRAMS PER DAY acetaminophen 500 MG tablet 650 mg PO Q6H epinephrine 0.3 mg/0.3 mL auto-injector 0.3 mg IM ONCE PRN Rx Instructions: as a single dose; may repeat once pregabalin 75 mg capsule 75 mg PO DAILY Patient Comments: pateint explained she does not take anymore provider changed does pregabalin 150 mg capsule 150 mg PO BID Patient Comments: TAKE 1 CAP BY MOUTH TWO TIMES A DAY topiramate [Topamax] 50 mg tablet 50 mg PO BID Qty: 10 0RF Patient Comments: pateint states Im not on that anymore topiramate [Topamax] 100 mg tablet 100 mg PO BID Qty: 60 0RF Patient Comments: pateint states Im not on that anymore Rx Instructions: start after finishing topamax 50 mg twice daily No Action lisinopril 5 mg tablet 10 mg PO DAILY Discharge Instructions Stand Alone Forms: Work Release Discharge Data Discharge Physician: Saul Hernández Medical Decision Making Summary: Patient with left lower extremity Achilles and calf tenderness was concerned she may have a DVT. [id number] ultrasound of the left lower extremity deep venous system was done by me as a limited study with good visibility of the deep venous system starting from the saphenous vein in the common femoral vein with good compressibility down to the mid superficial femoral vein and the popliteal veins with good compressibility good Doppler flow and augmentation. Ultrasound of the calf and the Achilles tendon was done which shows mild lymphedema of the subcutaneous tissue of the tissues around the ankle but no abnormality. Shared disposition patient most likely with tendinitis of the Achilles tendon and calf which has been fair when she stands on her feet a lot. Patient was given Naprosyn prescription and have given a work note so she sits for the next 3 days with limited activity at work. Patient understands instructions and agrees and will be discharged home Differential Diagnosis Differential Diagnosis: 1. Deep vein thrombosis 2. Achillis tendinitis 3 calf muscle strain Medical Records Medical records reviewed: Yes I reviewed the patient's medical records. HPI General Date/Time Provider Initiated Documentation: 08/16/22 16:12. Related Data Home Medications Medication Instructions Recorded Confirmed albuterol sulfate 90 mcg/actuation 2 puff inhalation Q4H PRN 02/03/18 08/16/22 aerosol inhaler paroxetine HCl 10 mg tablet (Paxil) 20 mg PO HS 02/03/18 08/16/22 docusate sodium 100 mg capsule 100 mg PO DAILY #60 caps 07/01/18 05/02/22 (Docusil) aspirin 81 mg tablet,delayed 81 mg PO DAILY 10/17/18 08/16/22 release (Aspir-) hydroxyzine HCl 25 mg tablet 25 mg PO TID PRN 10/17/18 05/02/22 metoprolol succinate 25 mg 50 mg PO DAILY 10/17/18 08/16/22 tablet,extended release 24 hr naproxen 375 mg tablet,delayed 375 mg PO BID 10/17/18 05/02/22 release cyclobenzaprine 5 mg tablet 5 mg PO BID 07/14/19 08/16/22 olanzapine 5 mg tablet 15 mg PO HS 02/23/21 08/16/22 methadone 10 mg/5 mL oral solution 90 mg PO DAILY 03/15/21 05/02/22 polyethylene glycol 17 pwd miscellaneous DAILY PRN 03/15/21 08/16/22 sennosides 8.6 mg tablet (Senna 17.2 mg PO DAILY 03/15/21 05/02/22 Laxative) clopidogrel 75 mg tablet (Plavix) 75 mg PO DAILY #60 tabs 04/01/21 08/16/22 lisdexamfetamine 40 mg capsule 50 mg PO DAILY 05/05/21 07/28/21 (Vyvanse) acetaminophen 500 mg tablet 650 mg PO Q6H 07/28/21 08/16/22 diclofenac sodium 1 % topical gel 1 applic topical QID 07/28/21 08/16/22 epinephrine 0.3 mg/0.3 mL 0.3 mg IM ONCE PRN 07/28/21 08/16/22 injection, auto-injector fluticasone 500 mcg-salmeterol 50 1 inh inhalation BID 07/28/21 08/16/22 mcg/dose blistr powdr for inhalation (Advair Diskus) pregabalin 150 mg capsule 150 mg PO BID 07/28/21 08/16/22 pregabalin 75 mg capsule 75 mg PO DAILY 07/28/21 05/02/22 topiramate 100 mg tablet (Topamax) 100 mg PO BID #60 tabs 07/30/21 05/02/22 topiramate 50 mg tablet (Topamax) 50 mg PO BID #10 tabs 07/30/21 05/02/22 dimenhydrinate 50 mg tablet 50 mg PO Q8H PRN 04/13/22 08/16/22 famotidine 10 mg tablet 10 mg PO DAILY 04/13/22 08/16/22 ferrous sulfate 325 mg (65 mg 325 mg PO DAILY 04/13/22 08/16/22 iron) tablet methadone 10 mg/5 mL oral solution 5 mg PO DIRECTED 04/13/22 08/16/22 lisinopril 5 mg tablet 10 mg PO DAILY 08/16/22 08/16/22 naproxen 375 mg tablet 375 mg PO BID PRN #20 tabs 08/16/22 Previous Rx's Medication Instructions Recorded docusate sodium 100 mg capsule 100 mg PO DAILY #60 caps 07/01/18 (Docusil) clopidogrel 75 mg tablet (Plavix) 75 mg PO DAILY #60 tabs 04/01/21 topiramate 100 mg tablet (Topamax) 100 mg PO BID #60 tabs 07/30/21 topiramate 50 mg tablet (Topamax) 50 mg PO BID #10 tabs 07/30/21 naproxen 375 mg tablet 375 mg PO BID PRN #20 tabs 08/16/22 Allergies Allergy/AdvReac Type Severity Reaction Status Date / Time meperidine HCl [From Demerol] Allergy Severe Anaphylaxsi Verified 08/16/22 17:14 s venom-honey bee Allergy Severe anaphylaxis Verified 08/16/22 17:14 [bee venom (honey bee)] lithium AdvReac Mild NAUSEA Verified 08/16/22 17:14 sertraline HCl [From Zoloft] AdvReac Mild NIGHTMARES Verified 08/16/22 17:14 General Stated Complaint: RespSymp KALINA: 3 PFSH All Active Problems (Updated 08/16/22 @ 17:13 by Saul Hernández MD) Achilles bursitis or tendinitis (Acute) Nocturnal hypoxia (Acute) Asymptomatic bacteriuria (Acute) Encephalopathy acute (Acute) Dysphagia (Acute) Left hemiparesis (Acute) Nodule of right lobe of thyroid gland (Acute) Lumbosacral spondylosis without myelopathy (Acute) CVA (cerebrovascular accident) (Chronic) TIA (transient ischemic attack) (Acute) Opioid dependence (Chronic) QT prolongation (Acute) Pneumonia due to COVID-19 virus (Acute) Allergic reaction (Acute) Medication overuse headache (Acute) Chronic headache (Chronic) PFO (patent foramen ovale) (Chronic) Hypersomnia (Acute) Altered mental status (Acute) Abnormal movements (Acute) Right hemiparesis (Acute) Discharge planning issues (Acute) DVT prophylaxis (Acute) Back pain (Acute) Atypical chest pain (Acute) Acute focal neurological deficit (Acute) Stroke-like symptom (Acute) Acute right-sided muscle weakness (Acute) Acute CVA (cerebrovascular accident) (Acute) Status migrainosus (Acute) Stroke (Chronic) Dyspepsia (Acute) Acute febrile illness (Acute) Nephrolithiasis (Chronic) Scoliosis (Chronic) PTSD (post-traumatic stress disorder) (Chronic) History of intravenous drug abuse (Chronic) Depression (Chronic) Asthma (Chronic) Migraine headache with aura (Chronic ~2000) Hepatitis C infection (Chronic) Chronic daily headache (Chronic) Opioid dependence in controlled environment (Chronic) Medical History (Updated 08/16/22 @ 17:13 by Saul Hernández MD) Acute adjustment disorder with anxiety ADD (attention deficit disorder) Anemia Aneurysm of ophthalmic artery L, s/p stent Arthritis Asthma, chronic Atrial septal aneurysm Bacterial pneumonia Bipolar 1 disorder Blood bacterial culture positive Brain TIA Cardiomyopathy Chronic constipation Chronic pain Chronic systolic CHF (congestive heart failure) [place] [facility] [place] Community acquired bacterial pneumonia Dental abscess Fibromyalgia GERD (gastroesophageal reflux disease) History of intracranial aneurysm Hypomagnesemia Hypoxia Insomnia related to another mental disorder Intracranial aneurysm Knee joint pain Lumbar back pain Lung nodule Obesity Polyarthralgia Poor dentition Prediabetes Secondary amenorrhea Seizures SOB (shortness of breath) Spondylosis of lumbar spine Stress incontinence SVT (supraventricular tachycardia) S/p ablation Tachycardia Therapeutic opioid induced constipation Thyroid nodule Tinea Surgical History H/O lithotripsy History of History of cerebral aneurysm repair (~2014) S/P cystoscopy with ureteral stent placement S/P tubal ligation Status post ablation operation for arrhythmia SVT Status post thoracic spinal fusion Family History Paternal Aunt Cerebral aneurysm Diabetes Hypertension Maternal Aunt Migraines Maternal Grandmother Heart disease Hypertension Migraines Paternal Grandmother Heart disease Diabetes Father Diabetes Hypertension Maternal Grandfather Diabetes Paternal Uncle Diabetes Hypertension Paternal Grandfather Hypertension Brother Migraines Mother Migraines Social History Smoking/Tobacco Use Status: Current every day Tobacco Type: cigarettes Quit status: considering quitting Smoking risk assessment performed?: Yes (0.5 ppd) Alcohol Intake: current Alcohol Intake frequency: holidays/special occasions only Alcohol type: wine Details: pt reports social use Drug use: Current Sobriety Substance use type: former substance user, marijuana, crack/cocaine, heroin, opiates and IV drugs Details: former heroin and cocaine user, pt states that she has been sober 3 years as of 07/2022. only drugs that she uses currently is marijuana Household members: none Number of Children: 3 Do you feel safe at home: Yes Do you feel safe in your relationship?: Yes History History 2 Para 3 Hx # Term Pregnancies 2 Multiple births Hx # Pregnancies Ectopic pregnancies AB induced Hx Number of Living Children 3 AB spontaneous Course Patient with tenderness to the Achilles tendon and calf with mild swelling of the left ankle who has been favoring that left ankle for she had right neck pain and is on her feet all the time at work Vital Signs Vital signs: Vital Signs Pulse 106 H 08/16/22 16:02 Respiratory Rate 20 08/16/22 16:02 Blood Pressure 151/99 H 08/16/22 16:02 Pulse Oximetry 94 08/16/22 16:02 Pulse 106 H 08/16/22 16:02 Respiratory Rate 20 08/16/22 16:02 Blood Pressure 151/99 H 08/16/22 16:02 Blood Pressure Position Sitting 08/16/22 16:02 Pulse Oximetry 94 08/16/22 16:02 Oxygen Delivery Method Room Air 08/16/22 16:02 Oxygen Flow Rate 0 08/16/22 16:02
--- NOTE | 2022-08-16 16:15 | DI.RAD_ITS ---
Exam(s) XR PORTABLE CHEST AP EXAM: XR PORTABLE CHEST AP CLINICAL HISTORY: cough and pleuritic chest pain TECHNIQUE: 2D digital imaging was performed. COMPARISON: CR,XR XR CHEST 2V PA LATERAL from 05/28/2022 FINDINGS: Exam is limited by patient body habitus and under penetration. Monitoring leads overlying the chest. The lungs are suboptimally inflated. LUNGS: Question of increased basilar opacities could represent artifact versus infiltrates and/or sma ll effusions. No pleural abnormality seen. HEART: Normal size. AORTA: Normal diameter. BONES: Rods are noted in the spine. Soft tissues: Unremarkable. IMPRESSION: Limited exam. Question of bibasilar densities versus artifacts. DATA REPOSITORY: RADIATION DOSE DELIVERED:
[2022-08-16 16:46] LABS: Abs Immature Grans 0.04 10^3/uL (0.0-0.06); Absolute Basophil Count 0.03 10^3/uL (0.0-0.2); Absolute Eosinophil Count 0.36 10^3/uL (0.0-0.7); Absolute Lymphocyte Count 2.06 10^3/uL (1.2-3.4); Absolute Monocyte Count 0.67 10^3/uL (0.1-0.8); Absolute Neutrophil Count 3.37 10^3/uL (1.2-6.7); Basophils % 0.5; Eosinophils % 5.5; HCT 32.5 % (36.0-46.0); HGB 9.8 g/dL (11.2-15.7); Immature Grans % 0.6; Lymphocytes % 31.5; MCH 26.1 pg (27.0-33.0); MCHC 30.2 % (32.0-36.0); MCV 86 fL (80-95); Monocytes % 10.3; Neutrophils % 51.6; Platelet Count 314 10^3/uL (130-400); RBC 3.76 10^6/uL (3.93-5.22); RDW 17.2 % (11.7-14.6); RDW-SD 54.4 fL; WBC 6.53 10^3/uL (4.4-10.8)
[2022-08-16 16:55] VITALS: RESP 18; RESP 4
[2022-08-16] MEDS: Albuterol/Ipratropium 3 ML UPD VIAL UPD (16:55)
[2022-08-16] MEDS: predniSONE 20 MG TAB 60 MG PO (16:55)
[2022-08-16 16:59] LABS: ALT 16 U/L (14-59); AST 14 U/L (15-37); Albumin 2.2 g/dL (3.4-5.0); Alkaline Phosphatase 117 U/L (46-116); Anion Gap 4.7 mmol/L (3-11); BUN 16 mg/dL (7-18); Bilirubin, Total 0.1 mg/dL (0.2-1.0); CO2 32.3 mmol/L (21.0-32.0); CREATININE 0.8 mg/dL (0.55-1.02); Chloride 103 mmol/L (98-107); Estimated GFR 100.33 (mL/min/1.73m2); Glucose 132 mg/dL (74-106); Potassium 3.8 mmol/L (3.5-5.1); Sodium 140 mmol/L (136-145); Total Protein 8.5 g/dL (6.4-8.2)
--- NOTE | 2022-08-16 17:34 | DI.VRAD_ITS ---
PROCEDURE INFORMATION: Exam: XR Chest Exam date and time: 08/16/2022 5:07 PM Age: 31 years old Clinical indication: Pain; Cough; Pleuordynia; Prior surgery TECHNIQUE: Imaging protocol: Radiologic exam of the chest. Views: 1 view. COMPARISON: CR XR CHEST 2V PA LATERAL 05/28/2022 3:42 PM FINDINGS: Lungs: There is new focal airspace opacity at the lateral right lung base. Lungs otherwise clear. There is no pulmonary vascular congestion. Pleural spaces: Findings suggest new small right pleural effusion. There is no evidence of pneumothorax. Heart/Mediastinum: Heart size is likely near the upper limits of normal. Bones/joints: Again noted is posterior fusion hardware involving the thoracic spine, without clear change. There is [id number] thoracic dextroscoliosis, stable. IMPRESSION: Findings suggest new small right pleural effusion with adjacent right basilar airspace opacity which may represent atelectasis or pneumonia. Recommend clinical correlation. Dictated and Authenticated by: Alistair Howard MD. Ordering:BRENDEN Hughes MD
--- NOTE | 2022-08-16 17:34 | ED.GENADUL_ITS ---
Discharge Plan Disposition Patient Disposition: Home Condition: Good Discharge Details Clinical Impression: Achilles bursitis or tendinitis Primary Care Provider: Des Ramos ED Provider: Saul Hernández Home Meds and New Rx's Prescriptions: New naproxen 375 mg tablet 375 mg PO BID PRNQty: 20 0RF Continued Vyvanse 40 mg capsule 50 mg PO DAILY Patient Comments: pt states im not on it anymore olanzapine 5 mg tablet 15 mg PO HS ferrous sulfate 325 mg (65 mg iron) tablet 325 mg PO DAILY dimenhydrinate 50 mg tablet 50 mg PO Q8H PRN famotidine 10 mg tablet 10 mg PO DAILY methadone 10 mg/5 mL solution 5 mg PO DIRECTED paroxetine HCl [Paxil] 10 mg Tablet 20 mg PO HS albuterol sulfate 90 mcg/actuation Hfa Aerosol Inhaler 2 puff INHALATION Q4H PRN docusate sodium [Docusil] 100 mg capsule 100 mg PO DAILY Qty: 60 0RF Patient Comments: do not take anymore sennosides [Senna Laxative] 8.6 mg tablet 17.2 mg PO DAILY Patient Comments: pt states no I dont take that methadone 10 mg/5 mL Solution 90 mg PO DAILY Patient Comments: duplicate order polyethylene glycol Powder 17 pwd MISCELLANEOUS DAILY PRN clopidogrel [Plavix] 75 mg tablet 75 mg PO DAILY Qty: 60 0RF aspirin [Aspir-81] 81 mg Tablet,Delayed Release (Dr/Ec) 81 mg PO DAILY hydroxyzine HCl 25 mg Tablet 25 mg PO TID PRN Patient Comments: does not take metoprolol succinate 25 mg Tablet Extended Release 24 Hr 50 mg PO DAILY naproxen 375 mg Tablet,Delayed Release (Dr/Ec) 375 mg PO BID Patient Comments: pateint states I do not take that cyclobenzaprine 5 mg Tablet 5 mg PO BID fluticasone propion-salmeterol [Advair Diskus] 500-50 mcg/dose blister with device 1 inh INHALATION BID diclofenac sodium 1 % gel 1 applic TOPICAL QID Patient Comments: APPLY A SMALL AMOUNT TO AFFECTED AREA FOUR TIMES A DAY NEEDED - MAX TOTAL BODY DOSE ( ALL COMBINED AREAS) 32 GRAMS PER DAY acetaminophen 500 MG tablet 650 mg PO Q6H epinephrine 0.3 mg/0.3 mL auto-injector 0.3 mg IM ONCE PRN Rx Instructions: as a single dose; may repeat once pregabalin 75 mg capsule 75 mg PO DAILY Patient Comments: pateint explained she does not take anymore provider changed does pregabalin 150 mg capsule 150 mg PO BID Patient Comments: TAKE 1 CAP BY MOUTH TWO TIMES A DAY topiramate [Topamax] 50 mg tablet 50 mg PO BID Qty: 10 0RF Patient Comments: pateint states Im not on that anymore topiramate [Topamax] 100 mg tablet 100 mg PO BID Qty: 60 0RF Patient Comments: pateint states Im not on that anymore Rx Instructions: start after finishing topamax 50 mg twice daily No Action lisinopril 5 mg tablet 10 mg PO DAILY Discharge Instructions Stand Alone Forms: Work Release Discharge Data Discharge Physician: Saul Hernández Medical Decision Making Summary: Patient presented with pleuritic type chest pain when she breathes radiates to her back and wheezing she received a DuoNeb and prednisone Labs were sent which shows a very elevated D-dimer reason she will have a CT angiogram. Patient will be signed out to Dr. Woody Mo to follow-up with his CT angiogram Differential Diagnosis Differential Diagnosis: 1. Asthma exacerbation 2 pleurisy 3 pulmonary embolus Medical Records Medical records reviewed: Yes I reviewed the patient's medical records. Imaging Data Radiologic Study: Imaging: X-Ray Radiologist's impression: Questionable right pleural effusion Lab Data Lab results reviewed: Yes I reviewed the patient's lab results. Lab results narrative: Labs unremarkable except for an elevated D-dimer and an elevated beta naatretic peptide ECG Data Attestation: I personally reviewed and interpreted this ECG (s) as follows: Prior ECG tracings: available for review Interpretation: Heart rate of 80 normal sinus rhythm normal axis no acute ST-T changes unchanged from previous EKG HPI General Date/Time Provider Initiated Documentation: 08/16/22 16:12 . HPI Narrative: Patient presents to the emergency department complaining of cough congestion for the last 3 days with increased shortness of breath and pleuritic type chest pa in which she says is worse when she takes a breath that radiates to her scapula and back. Denies any fever denies any chills but does report cough productive yellow sputum which exacerbates the pain which she reports is about a 6/10. Denies syncope Related Data Home Medications Medication Instructions Recorded Confirmed albuterol sulfate 90 mcg/actuation 2 puff inhalation Q4H PRN 02/03/18 08/16/22 aerosol inhaler paroxetine HCl 10 mg tablet (Paxil) 20 mg PO HS 02/03/18 08/16/22 docusate sodium 100 mg capsule 100 mg PO DAILY #60 caps 07/01/18 05/02/22 (Docusil) aspirin 81 mg tablet,delayed 81 mg PO DAILY 10/17/18 08/16/22 release (Aspir-) hydroxyzine HCl 25 mg tablet 25 mg PO TID PRN 10/17/18 05/02/22 metoprolol succinate 25 mg 50 mg PO DAILY 10/17/18 08/16/22 tablet,extended release 24 hr naproxen 375 mg tablet,delayed 375 mg PO BID 10/17/18 05/02/22 release cyclobenzaprine 5 mg tablet 5 mg PO BID 07/14/19 08/16/22 olanzapine 5 mg tablet 15 mg PO HS 02/23/21 08/16/22 methadone 10 mg/5 mL oral solution 90 mg PO DAILY 03/15/21 05/02/22 polyethylene glycol 17 pwd miscellaneous DAILY PRN 03/15/21 08/16/22 sennosides 8.6 mg tablet (Senna 17.2 mg PO DAILY 03/15/21 05/02/22 Laxative) clopidogrel 75 mg tablet (Plavix) 75 mg PO DAILY #60 tabs 04/01/21 08/16/22 lisdexamfetamine 40 mg capsule 50 mg PO DAILY 05/05/21 07/28/21 (Vyvanse) acetaminophen 500 mg tablet 650 mg PO Q6H 07/28/21 08/16/22 diclofenac sodium 1 % topical gel 1 applic topical QID 07/28/21 08/16/22 epinephrine 0.3 mg/0.3 mL 0.3 mg IM ONCE PRN 07/28/21 08/16/22 injection, auto-injector fluticasone 500 mcg-salmeterol 50 1 inh inhalation BID 07/28/21 08/16/22 mcg/dose blistr powdr for inhalation (Advair Diskus) pregabalin 150 mg capsule 150 mg PO BID 07/28/21 08/16/22 pregabalin 75 mg capsule 75 mg PO DAILY 07/28/21 05/02/22 topiramate 100 mg tablet (Topamax) 100 mg PO BID #60 tabs 07/30/21 05/02/22 topiramate 50 mg tablet (Topamax) 50 mg PO BID #10 tabs 07/30/21 05/02/22 dimenhydrinate 50 mg tablet 50 mg PO Q8H PRN 04/13/22 08/16/22 famotidine 10 mg tablet 10 mg PO DAILY 04/13/22 08/16/22 ferrous sulfate 325 mg (65 mg 325 mg PO DAILY 04/13/22 08/16/22 iron) tablet methadone 10 mg/5 mL oral solution 5 mg PO DIRECTED 04/13/22 08/16/22 lisinopril 5 mg tablet 10 mg PO DAILY 08/16/22 08/16/22 naproxen 375 mg tablet 375 mg PO BID PRN #20 tabs 08/16/22 Previous Rx's Medication Instructions Recorded docusate sodium 100 mg capsule 100 mg PO DAILY #60 caps 07/01/18 (Docusil) clopidogrel 75 mg tablet (Plavix) 75 mg PO DAILY #60 tabs 04/01/21 topiramate 100 mg tablet (Topamax) 100 mg PO BID #60 tabs 07/30/21 topiramate 50 mg tablet (Topamax) 50 mg PO BID #10 tabs 07/30/21 naproxen 375 mg tablet 375 mg PO BID PRN #20 tabs 08/16/22 Allergies Allergy/AdvReac Type Severity Reaction Status Date / Time meperidine HCl [From Demerol] Allergy Severe Anaphylaxsi Verified 08/16/22 17:14 s venom-honey bee Allergy Severe anaphylaxis Verified 08/16/22 17:14 [bee venom (honey bee)] lithium AdvReac Mild NAUSEA Verified 08/16/22 17:14 sertraline HCl [From Zoloft] AdvReac Mild NIGHTMARES Verified 08/16/22 17:14 General Stated Complaint: RespSymp KALINA: 3 Review of Systems All systems reviewed & are unremarkable except as noted in HPI and below Constitutional Constitutional: Reports as per HPI, Reports body ache(s) and Reports lethargy Eyes Eyes: Reports as per HPI and Reports system reviewed and no additional complaints, except as documented ENT Ears, Nose, Mouth, and Throat: Reports system reviewed and no additional complaints, except as documented and Reports as per HPI Cardiovascular Cardiovascular: Reports as per HPI and Reports system reviewed and no additional complaints, except as documented Respiratory Respiratory: Reports as per HPI and Reports system reviewed and no additional complaints, except as documented Gastrointestinal Gastrointestinal: Reports system reviewed and no additional complaints, except as documented Musculoskeletal Musculoskeletal: Reports system reviewed and no additional complaints, except as documented Neurologic Neurologic: Reports system reviewed and no additional complaints, except as documented Psychiatric Psychiatric: Reports system reviewed and no additional complaints, except as documented Endocrine Endocrine: Reports system reviewed and no additional complaints, except as documented Hematologic/Lymphatic Hematologic/Lymphatic: Reports system reviewed and no additional complaints, except as documented PFSH All Active Problems Achilles bursitis or tendinitis (Acute) Nocturnal hypoxia (Acute) Asymptomatic bacteriuria (Acute) Encephalopathy acute (Acute) Dysphagia (Acute) Left hemiparesis (Acute) Nodule of right lobe of thyroid gland (Acute) Lumbosacral spondylosis without myelopathy (Acute) CVA (cerebrovascular accident) (Chronic) TIA (transient ischemic attack) (Acute) Opioid dependence (Chronic) QT prolongation (Acute) Pneumonia due to COVID-19 virus (Acute) Allergic reaction (Acute) Medication overuse headache (Acute) Chronic headache (Chronic) PFO (patent foramen ovale) (Chronic) Hypersomnia (Acute) Altered mental status (Acute) Abnormal movements (Acute) Right hemiparesis (Acute) Discharge planning issues (Acute) DVT prophylaxis (Acute) Back pain (Acute) Atypical chest pain (Acute) Acute focal neurological deficit (Acute) Stroke-like symptom (Acute) Acute right-sided muscle weakness (Acute) Acute CVA (cerebrovascular accident) (Acute) Status migrainosus (Acute) Stroke (Chronic) Dyspepsia (Acute) Acute febrile illness (Acute) Nephrolithiasis (Chronic) Scoliosis (Chronic) PTSD (post-traumatic stress disorder) (Chronic) History of intravenous drug abuse (Chronic) Depression (Chronic) Asthma (Chronic) Migraine headache with aura (Chronic ~2000) Hepatitis C infection (Chronic) Chronic daily headache (Chronic) Opioid dependence in controlled environment (Chronic) Medical History Acute adjustment disorder with anxiety ADD (attention deficit disorder) Anemia Aneurysm of ophthalmic artery L, s/p stent Arthritis Asthma, chronic Atrial septal aneurysm Bacterial pneumonia Bipolar 1 disorder Blood bacterial culture positive Brain TIA Cardiomyopathy Chronic constipation Chronic pain Chronic systolic CHF (congestive heart failure) EF 50% in 08/2018 - [facility] [place] Cocaine abuse Community acquired bacterial pneumonia Dental abscess Fibromyalgia GERD (gastroesophageal reflux disease) History of intracranial aneurysm Hypomagnesemia Hypoxia Insomnia related to another mental disorder Intracranial aneurysm Knee joint pain Lumbar back pain Lung nodule Obesity Polyarthralgia Poor dentition Prediabetes Secondary amenorrhea Seizures SOB (shortness of breath) Spondylosis of lumbar spine Stress incontinence SVT (supraventricular tachycardia) S/p ablation Tachycardia Therapeutic opioid induced constipation Thyroid nodule Tinea Surgical History H/O lithotripsy History of History of cerebral aneurysm repair (~2014) S/P cystoscopy with ureteral stent placement S/P tubal ligation Status post ablation operation for arrhythmia SVT Status post thoracic spinal fusion Family History Paternal Aunt Cerebral aneurysm Diabetes Hypertension Maternal Aunt Migraines Maternal Grandmother Heart disease Hypertension Migraines Paternal Grandmother Heart disease Diabetes Father Diabetes Hypertension Maternal Grandfather Diabetes Paternal Uncle Diabetes Hypertension Paternal Grandfather Hypertension Brother Migraines Mother Migraines Social History Smoking/Tobacco Use Status: Current every day Tobacco Type: cigarettes Quit status: considering quitting Smoking risk assessment performed?: Yes (0.5 ppd) Alcohol Intake: current Alcohol Intake frequency: holidays/special occasions only Alcohol type: wine Details: pt reports social use Drug use: Current Sobriety Substance use type: former substance user, marijuana, crack/cocaine, heroin, opiates and IV drugs Details: former heroin and cocaine user, pt states that she has been sober 3 years as of 07/2022. only drugs that she uses currently is marijuana Household members: none Number of Children: 3 Do you feel safe at home: Yes Do you feel safe in your relationship?: Yes History History 2 Para 3 Hx # Term Pregnancies 2 Multiple births Hx # Pregnancies Ectopic pregnancies AB induced Hx Number of Living Children 3 AB spontaneous Exam Const General: cooperative, no acute distress and well developed HENMT Head: normal to inspection, normocephalic and atraumatic Ears: hearing grossly normal bilaterally Face and sinus: normal facial exam Mouth: oral mucosae normal Eyes General: appearance normal, both eyes and all related structures Visual Hay: normal visual hay by confrontation Alignment and Position: alignment normal Cornea: corneas normal Pupils: PERRL EOM: EOM intact bilaterally Neck Neck: normal visual inspection and no lymphadenopathy Chest Chest: normal inspection of the chest Resp Effort & Inspection: normal respiratory effort, able to speak in complete sentences and audible wheezes Cardio Rate: tachycardic Rhythm: regular rhythm Heart Sounds: S1 normal and S2 normal GI Inspection: normal to inspection Auscultation: normal bowel sounds Back/Spine/Pelvis Back: no CVA tenderness Skin General skin exam: no rashes or lesions noted Neuro General: patient alert and patient oriented x3 Cranial Nerves: CN's II-XI intact bilaterally Cognition: normal cognition Sensory Exam: no sensory deficits noted Extrem General: normal to inspection, full ROM, capillary refill normal and pedal edema present Course Reevaluation(s) Time: 19:29 Reevaluation: Patient who came with dyspnea and wheezes who received a DuoNeb and prednisone and feels somewhat better but the D-dimer is positive so she will have a CT angiogram of the chest to rule out pulmonary embolus before she has coagulation disorder Vital Signs Vital signs: Vital Signs Pulse 106 H 08/16/22 16:02 Respiratory Rate 20 08/16/22 16:02 Blood Pressure 151/99 H 08/16/22 16:02 Pulse Oximetry 94 08/16/22 16:02 Pulse 106 H 08/16/22 16:02 Respiratory Rate 18 08/16/22 16:55 Respiratory Effort Normal, Non-Labored 08/16/22 16:10 Respiratory Depth Normal 08/16/22 16:10 Blood Pressure 151/99 H 08/16/22 16:02 Blood Pressure Position Sitting 08/16/22 16:02 Pulse Oximetry 94 08/16/22 16:02 Oxygen Delivery Method Room Air 08/16/22 16:55 Oxygen Flow Rate 0 08/16/22 16:55 Lab/Test Results Lab/Test Results: Laboratory Tests Range/Units 08/16/22 08/16/22 16:35 16:35 WBC (4.4-10.8) 10^3/uL 6.53 RBC (3.93-5.22) 10^6/uL 3.76 L Hgb (11.2-15.7) g/dL 9.8 L Hct (36.0-46.0) % 32.5 L MCV (80-95) fL 86 MCH (27.0-33.0) pg 26.1 L MCHC (32.0-36.0) % 30.2 L RDW (11.7-14.6) % 17.2 H Plt Count (130-400) 10^3/uL 314 MPV (8.0-11.0) fL 10.0 Immature Gran % 0.6 Neutrophils % 51.6 Lymphocytes % 31.5 Monocytes % 10.3 Eosinophils % 5.5 Basophils % 0.5 Nucleated RBC % (0.0-0.3) % 0.0 Absolute Neutrophils (1.2-6.7) 10^3/uL 3.37 Absolute Lymphocytes (1.2-3.4) 10^3/uL 2.06 Absolute Monocytes (0.1-0.8) 10^3/uL 0.67 Absolute Eosinophils (0.0-0.7) 10^3/uL 0.36 Absolute Basophils (0.0-0.2) 10^3/uL 0.03 Sodium (136-145) mmol/L 140 Potassium (3.5-5.1) mmol/L 3.8 Chloride (98-107) mmol/L 103 Carbon Dioxide (21.0-32.0) mmol/L 32.3 H Anion Gap (3-11) mmol/L 4.7 BUN (7-18) mg/dL 16 Creatinine (0.55-1.02) mg/dL 0.8 Est GFR (CKD-EPI 2020) (mL/min/1.73m2) 100.33 Glucose (74-106) mg/dL 132 H Calcium (8.5-10.1) mg/dL 9.0 Total Bilirubin (0.2-1.0) mg/dL 0.1 L AST (15-37) U/L 14 L ALT (14-59) U/L 16 Alkaline Phosphatase (46-116) U/L 117 H Total Protein (6.4-8.2) g/dL 8.5 H Albumin (3.4-5.0) g/dL 2.2 L RUN DATE: 08/16/22 [facility] PAGE 1 RUN TIME: [address] RUN USER: [place] [address] Lissy Douglas MD PATIENT REPORT PATIENT: Ghada Ervin LOC: ER U #: [id number] /SX: 1990 F ROOM: RE08/16/[address]: Saul Hernández M.D. STATUS: REG ER BED: DIS: SPEC #: [id number] ISIDRO: 08/16/22-1635 STATUS: COMP REQ #: [id number] RECD: 08/16/22-[address]: Saul Hernández M.D. ENTERED: 08/16/[address]: DES RAMOS MD FAX #: ORDERED: D-Dimer Test Result Flag Reference Verified N D-Dimer 3771 H <500 ng/mlFEU 08/16/22-182 *Literature supports the exclusion of DVT and/or PE with a result less than 500 ng/ml FEU with this method.* A Patient: Ghada Ervin LABORATORY Acct#[id number] Unit#[id number] PAWSS Have you Been Recently Intoxicated or Drunk Within the Last 30 days?: No Have you Ever Experienced Previous Episodes of Alcohol Withdrawal?: No Have you ever Experienced Withdrawal Seizures?: No Have you ever Experienced Delirium Tremens(DT)s?: No Have you ever undergone Alcohol Rehabilitation Treatment (i.e, inpt ot outpatient treatment programs)?: No Have you ever Experienced Blackouts?: No Have you ever Combined Alcohol with other Downers within the last 90 days?: No Have you ever Combined Alcohol with any other Substance of Abuse during the last 90 days?: No Result: 0
[2022-08-16 18:21] LABS: NT-proBNP 745 pg/mL (<300)
[2022-08-16 18:27] LABS: D-Dimer 3771 ng/mlFEU (<500)
--- NOTE | 2022-08-16 19:15 | DI.CT_ITS ---
Exam(s) CT CHEST PE CTA EXAM: CT CHEST PE CTA CLINICAL HISTORY: chest pain sob. TECHNIQUE: Imaging Protocol: Axial CT angiography was performed with multi-slice acquisition and mu lti-planar reconstructions as well as axial, coronal and sagittal MIP reconstructions. CONTRAST MATERIAL: Intravenous: Omnipaque 350 Contrast volume:100 ml COMPARISON: CT CT CHEST PE CTA from 12/20/2021 FINDINGS: Exam is somewhat limited by motion and streak artifact due to spinal rods. Pulmonary Arteries: No evidence of filling defect to suggest pulmonary emboli. Tracheobronchial tree: Patent where visualized. Mediastinum and Shara: Mild bilateral hilar and subcarinal adenopathy. Pulmonary parenchyma: Areas of consolidation anterior right lower lobe and posterior left lower lobe. Pleura: Small right pleural effusion. Heart: The heart is not dilated. No coronary artery calcifications are seen. Aorta: Thoracic aorta non-dilated. No aneurysm. No dissection. Upper abdomen: Unremarkable. Bones: Scoliosis and spinal rods. Soft tissues: Thyroid nodule again noted. IMPRESSION: No evidence of pulmonary embolism. Small right pleural effusion. Bilateral lower lobe pneumonia. RADIATION DOSE DELIVERED: 795.36mGy.cm Total DLP DATA REPOSITORY: All CT scans at this facility are submitted to the National Radiology Data Registry (NRDR) Dose Index Registry (DIR) with the [employer] ([employer]). RADIATION OPTIMIZATION: All CT scans at this facility use at least one of these dose optimization te chniques: automated exposure control; mA and/or kV adjustment per patient size (includes targeted exa ms where dose is matched to clinical indication); or iterative reconstruction.
[2022-08-16] MEDS: Omnipaque 350 MG/ML 100 ML BTL IJ (19:45)
[2022-08-16] MEDS: Normal Saline - Diluent 50 ML VIAL IJ (19:46)
[2022-08-16] MEDS: Normal Saline Flush 10 ML SYR IVP (19:52)
--- NOTE | 2022-08-16 20:36 | DI.VRAD_ITS ---
PROCEDURE INFORMATION: Exam: CTA Chest With Contrast Exam date and time: 08/16/2022 7:43 PM Age: 31 years old Clinical indication: Cough and shortness of breath; Prior surgery; Surgery date: 6+ months; Surgery type: Back surgery; Patient HX: Chest pain, SOB TECHNIQUE: Imaging protocol: Computed tomographic angiography of the chest with contrast. 3D rendering (Not supervised by radiologist): MIP and/or 3D reconstructed images were created by the technologist. Radiation optimization: All CT scans at this facility use at least one of these dose optimization techniques: automated exposure control; mA and/or kV adjustment per patient size (includes targeted exams where dose is matched to clinical indication); or iterative reconstruction. Contrast material: OMNIPAQUE 350; Contrast volume: 98 ml; Contrast route: INTRAVENOUS (IV); COMPARISON: CT CHEST PE CTA 12/20/2021 1:13 PM FINDINGS: Pulmonary arteries: No filling defects within the pulmonary arteries are identified to suggest pulmonary embolism. Aorta: Unremarkable. No aortic aneurysm. No aortic dissection. Thyroid: There is a poorly defined low-dense right thyroid lobe lesion measuring approximately 1.7 x 2.3 cm, without clear change. Lungs: There are new patchy airspace opacities within both lower lobes, right greater than left, suggesting multifocal pneumonia. The largest focal airspace opacity resides within the anterolateral base of the right lower lobe measuring up to 4.4 x 5.0 cm. Findings suggest superimposed regions of atelectasis within the posterior lung bases as well. There appear to be regions of peribronchial thickening of basilar lower lobe segmental bronchi, new since prior study, suggesting bronchitis. Pleural spaces: There is a new small free layering right pleural effusion. Heart: Heart size is near the upper limits of normal. There is no pericardial effusion. Lymph nodes: There is mild bilateral hilar adenopathy, which is overall mildly increased from prior study with lymph nodes measuring to 1.3 cm. Bones/joints: Again noted is moderate dextroscoliosis of the thoracic spine. There are posterior fusion rods in place which appear unchanged and intact. Soft tissues: Unremarkable. IMPRESSION: 1. No pulmonary embolism identified. 2. New basilar airspace opacities, as described above, suggesting multifocal pneumonia. Recommend clinical correlation. 3. Increased mild bilateral hilar adenopathy, likely reactive. 4. New small free layering right pleural effusion 5. Poorly defined right thyroid lobe lesion measuring up to 1.7 x 2.3 cm, without clear change. Follow-up non-emergent thyroid ultrasound is recommended. Dictated and Authenticated by: Alistair Howard MD. Ordering:BRENDEN Hughes MD
--- NOTE | 2022-08-16 21:01 | W.EDPROG ---
Date of service: 08/16/22 Time of Service: 21:02 Medical Decision Making Patient was signed out to me by my colleague. Please refer to his HPI, physical exam, assessment and plan. Patient was diagnosed with tendinitis, however she also had a notable cough. Labs were ordered, D-dimer was positive, concern was for PE with her cough and mild chest pain. CTA was ordered and demonstrates no evidence of pulmonary embolism, but does show evidence of multifocal pneumonia. Oxygenation is stable, heart rate stable, patient feels comfortable going home. No current indication for inpatient admission at the patient's current clinical status. We will give doxycycline here and a prescription for home use. Patient agrees with the plan. Otherwise patient's work-up is stable, and she shows no signs of respiratory distress, ACS, PE or dissection. Discussed red flags for which to return. I have extensively reviewed the treatment plan and discharge instructions with the patient. I have addressed all patient concerns at this time. The patient was made aware of what symptoms to monitor for that would warrant a return to the emergency department. Discussed the plan with the patient, they demonstrate verbal understanding and agreement with our assessment and plan at this time. The documentation in this chart was dictated using [employer] dictation software. Please excuse any dictation errors. FINDINGS: Pulmonary arteries: No filling defects within the pulmonary arteries are identified to suggest pulmonary embolism. Aorta: Unremarkable. No aortic aneurysm. No aortic dissection. Thyroid: There is a poorly defined low-dense right thyroid lobe lesion measuring approximately 1.7 x 2.3 cm, without clear change. Lungs: There are new patchy airspace opacities within both lower lobes, right greater than left, suggesting multifocal pneumonia. The largest focal airspace opacity resides within the anterolateral base of the right lower lobe measuring up to 4.4 x 5.0 cm. Findings suggest superimposed regions of atelectasis within the posterior lung bases as well. There appear to be regions of peribronchial thickening of basilar lower lobe segmental bronchi, new since prior study, suggesting bronchitis. Pleural spaces: There is a new small free layering right pleural effusion. Heart: Heart size is near the upper limits of normal. There is no pericardial effusion. Lymph nodes: There is mild bilateral hilar adenopathy, which is overall mildly increased from prior study with lymph nodes measuring to 1.3 cm. Bones/joints: Again noted is moderate dextroscoliosis of the thoracic spine. There are posterior fusion rods in place which appear unchanged and intact. Soft tissues: Unremarkable. IMPRESSION: 1. No pulmonary embolism identified. 2. New basilar airspace opacities, as described above, suggesting multifocal pneumonia. Recommend clinical correlation. 3. Increased mild bilateral hilar adenopathy, likely reactive. 4. New small free layering right pleural effusion 5. Poorly defined right thyroid lobe lesion measuring up to 1.7 x 2.3 cm, without clear change. Follow-up non-emergent thyroid ultrasound is recommended. Thank you for allowing us to participate in the care of your patient. Dictated and Authenticated by: Alistair Howard MD 08/16/2022 8:36 PM Eastern Time ([place] & [place]) Discharge Plan Disposition Patient Disposition: Home Condition: Good Discharge Details Clinical Impression: Achilles bursitis or tendinitis, Pneumonia Primary Care Provider: Alistair Ramos ED Provider: Woody Mo Home Meds and New Rx's Prescriptions: New naproxen 375 mg tablet 375 mg PO BID PRNQty: 20 0RF doxycycline hyclate 100 mg tablet 100 mg PO BID Qty: 20 0RF Continued Vyvanse 40 mg capsule 50 mg PO DAILY Patient Comments: pt states im not on it anymore olanzapine 5 mg tablet 15 mg PO HS ferrous sulfate 325 mg (65 mg iron) tablet 325 mg PO DAILY dimenhydrinate 50 mg tablet 50 mg PO Q8H PRN famotidine 10 mg tablet 10 mg PO DAILY methadone 10 mg/5 mL solution 5 mg PO DIRECTED paroxetine HCl [Paxil] 10 mg Tablet 20 mg PO HS albuterol sulfate 90 mcg/actuation Hfa Aerosol Inhaler 2 puff INHALATION Q4H PRN docusate sodium [Docusil] 100 mg capsule 100 mg PO DAILY Qty: 60 0RF Patient Comments: do not take anymore sennosides [Senna Laxative] 8.6 mg tablet 17.2 mg PO DAILY Patient Comments: pt states no I dont take that methadone 10 mg/5 mL Solution 90 mg PO DAILY Patient Comments: duplicate order polyethylene glycol Powder 17 pwd MISCELLANEOUS DAILY PRN clopidogrel [Plavix] 75 mg tablet 75 mg PO DAILY Qty: 60 0RF aspirin [Aspir-81] 81 mg Tablet,Delayed Release (Dr/Ec) 81 mg PO DAILY hydroxyzine HCl 25 mg Tablet 25 mg PO TID PRN Patient Comments: does not take metoprolol succinate 25 mg Tablet Extended Release 24 Hr 50 mg PO DAILY naproxen 375 mg Tablet,Delayed Release (Dr/Ec) 375 mg PO BID Patient Comments: pateint states I do not take that cyclobenzaprine 5 mg Tablet 5 mg PO BID fluticasone propion-salmeterol [Advair Diskus] 500-50 mcg/dose blister with device 1 inh INHALATION BID diclofenac sodium 1 % gel 1 applic TOPICAL QID Patient Comments: APPLY A SMALL AMOUNT TO AFFECTED AREA FOUR TIMES A DAY NEEDED - MAX TOTAL BODY DOSE ( ALL COMBINED AREAS) 32 GRAMS PER DAY acetaminophen 500 MG tablet 650 mg PO Q6H epinephrine 0.3 mg/0.3 mL auto-injector 0.3 mg IM ONCE PRN Rx Instructions: as a single dose; may repeat once pregabalin 75 mg capsule 75 mg PO DAILY Patient Comments: pateint explained she does not take anymore provider changed does pregabalin 150 mg capsule 150 mg PO BID Patient Comments: TAKE 1 CAP BY MOUTH TWO TIMES A DAY topiramate [Topamax] 50 mg tablet 50 mg PO BID Qty: 10 0RF Patient Comments: pateint states Im not on that anymore topiramate [Topamax] 100 mg tablet 100 mg PO BID Qty: 60 0RF Patient Comments: pateint states Im not on that anymore Rx Instructions: start after finishing topamax 50 mg twice daily No Action lisinopril 5 mg tablet 10 mg PO DAILY Discharge Instructions Instructions: Pneumonia (ED) Additional Instructions: At this time you do have evidence of pneumonia, please take the antibiotic doxycycline as directed. Please make sure to take this with food otherwise it can cause nausea and vomiting. Please continue to use Tylenol and Motrin and heating pad as needed. If you notice any worsening of your symptoms, or any new symptoms such as vomiting, diarrhea, fever, chills, shortness of breath, chest pain, numbness, weakness, or fainting , please return immediately to the emergency department for reevaluation. Please follow up with your primary care provider as soon as possible for reassessment and reevaluation. As always, it was a pleasure participating in your medical care today. Stand Alone Forms: Work Release Referrals: Alistair Ramos [Primary Care Provider] - Discharge Data Discharge Physician: Saul Hernández
[2022-08-16 21:05] VITALS: PULSE 93; RESP 25; TEMP 36.8; O2SAT 94
[2022-08-16] MEDS: Doxycycline Hyclate 100 MG, 2 CAPS/BTL PO (21:05)
[2022-08-16] MEDS: Doxycycline Hyclate 100 MG CAP PO (21:05)
== END 2022-08-16 21:13 | disposition home or self-care (01) ==
PROVIDERS: Emergency Medicine Emergency Medical Services; Emergency Provider Student in an Organized Health Care Education/Training Program; PCP Family Medicine
DX: M76.62 Achilles tendinitis, left leg (principal); R79.1 Abnormal coagulation profile; R00.0 Tachycardia, unspecified; J45.909 Unspecified asthma, uncomplicated; Z79.82 Long term (current) use of aspirin; Z86.73 Personal history of transient ischemic attack (TIA), and cerebral infarction without residual deficits; Z79.51 Long term (current) use of inhaled steroids
CPT/HCPCS: 71275; 80053; 93005; 94640; 99285; 71045; 83880; 85025; 85379; 93010; 99284; J3490; J7512; J7620

== ENCOUNTER 2022-09-12 13:40 | Outpatient (REF) | payer MEDICARE, MEDICAID, SELFPAY ==
[2022-09-12 16:13] LABS: Abs Immature Grans 0.02 10^3/uL (0.0-0.06); Absolute Basophil Count 0.03 10^3/uL (0.0-0.2); Absolute Eosinophil Count 0.23 10^3/uL (0.0-0.7); Absolute Lymphocyte Count 1.65 10^3/uL (1.2-3.4); Absolute Monocyte Count 0.53 10^3/uL (0.1-0.8); Absolute Neutrophil Count 5.19 10^3/uL (1.2-6.7); Basophils % 0.4; HCT 27.7 % (36.0-46.0); HGB 8.2 g/dL (11.2-15.7); Immature Grans % 0.3; Lymphocytes % 21.6; MCH 26.5 pg (27.0-33.0); MCHC 29.6 % (32.0-36.0); MCV 89 fL (80-95); MPV 11.1 fL (8.0-11.0); Monocytes % 6.9; Neutrophils % 67.8; Platelet Count 388 10^3/uL (130-400); RDW 17.7 % (11.7-14.6); RDW-SD 57.3 fL; WBC 7.65 10^3/uL (4.4-10.8)
[2022-09-12 17:43] LABS: ALT 19 U/L (14-59); AST 19 U/L (15-37); Albumin 2.4 g/dL (3.4-5.0); Alkaline Phosphatase 165 U/L (46-116); Anion Gap 10.4 mmol/L (3-11); BUN 16 mg/dL (7-18); Bilirubin, Total 0.1 mg/dL (0.2-1.0); CO2 27.6 mmol/L (21.0-32.0); CREATININE 1.5 mg/dL (0.55-1.02); Calcium 8.9 mg/dL (8.5-10.1); Chloride 99 mmol/L (98-107); Estimated GFR 47.19 (mL/min/1.73m2); Glucose 204 mg/dL (74-106); Potassium 4.1 mmol/L (3.5-5.1); Sodium 137 mmol/L (136-145); Total Protein 9.2 g/dL (6.4-8.2)
[2022-09-12 17:44] LABS: Iron 18 ug/dL (50-170); Total Iron Binding Capacity 251 ug/dL (250-450); Transferrin Sat 7 % (15-50)
[2022-09-13 12:12] LABS: Hemoglobin A1C 6.1 % (<5.7)
[2022-09-14 11:37] LABS: HCV RNA Qualitative Undetected (Undetected)
== END 2022-09-12 13:41 | disposition home or self-care (01) ==
LOC: NCHCN 13:40
PROVIDERS: PCP Family Medicine; Visit Provider Family Medicine
DX: B18.2 Chronic viral hepatitis C (principal); J18.9 Pneumonia, unspecified organism; R73.03 Prediabetes; D50.9 Iron deficiency anemia, unspecified
CPT/HCPCS: 80053; 87522; 83036; 83540; 83550; 85025

== ENCOUNTER 2022-09-23 12:30 | Outpatient (REF) | payer MEDICARE, MEDICAID, SELFPAY ==
[2022-09-23 19:01] LABS: Abs Immature Grans 0.03 10^3/uL (0.0-0.06); Absolute Basophil Count 0.02 10^3/uL (0.0-0.2); Absolute Eosinophil Count 0.13 10^3/uL (0.0-0.7); Absolute Lymphocyte Count 2.22 10^3/uL (1.2-3.4); Absolute Neutrophil Count 4.64 10^3/uL (1.2-6.7); Basophils % 0.3; Eosinophils % 1.7; HCT 29.8 % (36.0-46.0); HGB 9.1 g/dL (11.2-15.7); Immature Grans % 0.4; Lymphocytes % 29.4; MCH 27.1 pg (27.0-33.0); MCHC 30.5 % (32.0-36.0); MCV 89 fL (80-95); MPV 10.7 fL (8.0-11.0); Monocytes % 6.6; Neutrophils % 61.6; Platelet Count 345 10^3/uL (130-400); RBC 3.36 10^6/uL (3.93-5.22); RDW 17.8 % (11.7-14.6); RDW-SD 56.5 fL; WBC 7.54 10^3/uL (4.4-10.8)
[2022-09-23 19:10] LABS: ALT 27 U/L (14-59); AST 22 U/L (15-37); Albumin 2.8 g/dL (3.4-5.0); Alkaline Phosphatase 172 U/L (46-116); Anion Gap 8.4 mmol/L (3-11); BUN 15 mg/dL (7-18); Bilirubin, Total 0.2 mg/dL (0.2-1.0); CO2 27.6 mmol/L (21.0-32.0); CREATININE 1.5 mg/dL (0.55-1.02); Calcium 9.4 mg/dL (8.5-10.1); Chloride 97 mmol/L (98-107); Estimated GFR 47.19 (mL/min/1.73m2); Glucose 253 mg/dL (74-106); Potassium 4.6 mmol/L (3.5-5.1); Sodium 133 mmol/L (136-145); Total Protein 9.2 g/dL (6.4-8.2)
== END 2022-09-23 12:31 | disposition home or self-care (01) ==
LOC: NCHCN 12:30
PROVIDERS: PCP Family Medicine; Visit Provider Family Medicine
DX: J18.9 Pneumonia, unspecified organism (principal)
CPT/HCPCS: 80053; 85025

== ENCOUNTER 2022-10-03 13:42 | Outpatient (REF) | payer MEDICARE, MEDICAID, SELFPAY ==
[2022-10-03 15:48] LABS: Abs Immature Grans 0.03 10^3/uL (0.0-0.06); Absolute Basophil Count 0.02 10^3/uL (0.0-0.2); Absolute Eosinophil Count 0.17 10^3/uL (0.0-0.7); Absolute Lymphocyte Count 2.25 10^3/uL (1.2-3.4); Absolute Monocyte Count 0.41 10^3/uL (0.1-0.8); Absolute Neutrophil Count 5.79 10^3/uL (1.2-6.7); Basophils % 0.2; HCT 29.7 % (36.0-46.0); HGB 8.9 g/dL (11.2-15.7); Immature Grans % 0.3; MCH 27.3 pg (27.0-33.0); MCV 91 fL (80-95); MPV 11.8 fL (8.0-11.0); Monocytes % 4.7; Neutrophils % 66.8; Platelet Count 246 10^3/uL (130-400); RBC 3.26 10^6/uL (3.93-5.22); RDW 18.4 % (11.7-14.6); RDW-SD 61.3 fL; WBC 8.67 10^3/uL (4.4-10.8)
[2022-10-03 16:11] LABS: ALT 23 U/L (14-59); AST 22 U/L (15-37); Albumin 2.5 g/dL (3.4-5.0); Alkaline Phosphatase 149 U/L (46-116); Anion Gap 5.2 mmol/L (3-11); BUN 14 mg/dL (7-18); Bilirubin, Total 0.2 mg/dL (0.2-1.0); C-Reactive Protein 2.92 mg/dL (0.0-0.3); CO2 30.8 mmol/L (21.0-32.0); CREATININE 1.2 mg/dL (0.55-1.02); Calcium 9.5 mg/dL (8.5-10.1); Chloride 100 mmol/L (98-107); Estimated GFR 61.68 (mL/min/1.73m2); Glucose 135 mg/dL (74-106); Potassium 5.1 mmol/L (3.5-5.1); Sodium 136 mmol/L (136-145); Total Protein 8.4 g/dL (6.4-8.2)
== END 2022-10-03 13:43 | disposition home or self-care (01) ==
LOC: NCHCN 13:42
PROVIDERS: PCP Family Medicine; Visit Provider Family Medicine
DX: J18.9 Pneumonia, unspecified organism (principal)
CPT/HCPCS: 80053; 85025; 86140

== ENCOUNTER 2022-12-01 18:35 | Outpatient (REF) | payer MEDICARE, MEDICAID, SELFPAY ==
[2022-12-01 16:31] LABS: HCT 33.9 % (36.0-46.0); HGB 10.3 g/dL (11.2-15.7); MCH 27.8 pg (27.0-33.0); MCHC 30.4 % (32.0-36.0); MCV 92 fL (80-95); MPV 11.4 fL (8.0-11.0); Platelet Count 234 10^3/uL (130-400); RDW 15.3 % (11.7-14.6); RDW-SD 51.1 fL; WBC 10.68 10^3/uL (4.4-10.8)
[2022-12-01 16:58] LABS: Iron 31 ug/dL (50-170); Total Iron Binding Capacity 330 ug/dL (250-450); Transferrin Sat 9 % (15-50)
[2022-12-01 17:14] LABS: Estimated GFR 76.29 (mL/min/1.73m2); Ferritin 25 ng/mL (8-252)
[2022-12-01 17:23] LABS: C-Reactive Protein 4.85 mg/dL (0.0-0.3)
== END 2022-12-01 18:36 | disposition home or self-care (01) ==
LOC: NCHCN 18:35
PROVIDERS: PCP Family Medicine; Visit Provider Family Medicine
DX: D50.9 Iron deficiency anemia, unspecified (principal); J15.20 Pneumonia due to staphylococcus, unspecified; N28.9 Disorder of kidney and ureter, unspecified; R79.82 Elevated C-reactive protein (CRP)
CPT/HCPCS: 85027; 82565; 82728; 83540; 83550; 86140

== ENCOUNTER 2023-08-04 18:03 | Outpatient (REF) | payer MEDICARE, MEDICAID, SELFPAY ==
[2023-08-04 19:09] LABS: HCT 43.4 % (36.0-46.0); MCH 27.7 pg (27.0-33.0); MCV 92 fL (80-95); MPV 11.4 fL (8.0-11.0); Platelet Count 318 10^3/uL (130-400); RDW 14.7 % (11.7-14.6); RDW-SD 50.4 fL; WBC 11.07 10^3/uL (4.4-10.8)
[2023-08-04 19:43] LABS: Hemoglobin A1C 5.8 % (<5.7); Iron 38 ug/dL (50-170); Total Iron Binding Capacity 377 ug/dL (250-450); Transferrin Sat 10 % (15-50)
[2023-08-04 20:04] LABS: ALT 23 U/L (14-59); AST 15 U/L (15-37); Albumin 3.2 g/dL (3.4-5.0); Alkaline Phosphatase 112 U/L (46-116); Anion Gap 7.5 mmol/L (3-11); BUN 17 mg/dL (7-18); Bilirubin, Total 0.3 mg/dL (0.2-1.0); CO2 30.5 mmol/L (21.0-32.0); Calcium 9.5 mg/dL (8.5-10.1); Chloride 103 mmol/L (98-107); Estimated GFR 76.29 (mL/min/1.73m2); Ferritin 41 ng/mL (8-252); Glucose 107 mg/dL (74-106); Potassium 4.4 mmol/L (3.5-5.1); Sodium 141 mmol/L (136-145); TSH (W/Ref FT4) 1.12 uIU/mL (0.36-3.74); Total Protein 7.9 g/dL (6.4-8.2); Vitamin B12 482 pg/mL (193-986)
[2023-08-05 22:02] LABS: CRP, High Sensitivity >15.00 mg/L (See Note)
== END 2023-08-04 18:04 | disposition home or self-care (01) ==
LOC: NCHCN 18:03
PROVIDERS: PCP Family Medicine; Visit Provider Family Medicine
DX: D50.9 Iron deficiency anemia, unspecified (principal); R53.83 Other fatigue; E83.42 Hypomagnesemia
CPT/HCPCS: 80053; 85027; 86141; 82607; 82728; 83036; 83540; 83550; 83735; 84443

== ENCOUNTER 2023-10-04 12:19 | Emergency (ER) | payer MEDICARE, MEDICAID, SELFPAY ==
[2023-10-04] VITALS (20 sets, daily range): BP systolic 99–132; BP diastolic 42–97; PULSE 72–96; RESP 0–26; TEMP 36.6; O2SAT 84–98
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
--- NOTE | 2023-10-04 12:52 | W.ED.GENAD ---
Discharge Plan Disposition Patient Disposition: Home Condition: Stable Discharge Details Clinical Impression: Fracture of nasal bone, Frequent falls, Head injury, closed, with brief LOC Primary Care Provider: SORAIDA ALMEIDA ED Provider: Yanique Justice Home Meds and New Rx's Prescriptions: Continued diclofenac sodium [Voltaren Arthritis Pain] 1 % gel 2 g topical QID Rx Instructions: apply to single elbow, wrist or hand; for hand includes palm/fingers/back of hand albuterol sulfate 90 mcg/actuation HFA aerosol inhaler 2 puff inhalation Q6H PRN clopidogrel [Plavix] 75 mg tablet 75 mg PO DAILY Qty: 60 0RF Hold Instructions: while taking Eliquis acetaminophen 500 MG tablet 650 mg PO Q6H epinephrine 0.3 mg/0.3 mL auto-injector 0.3 mg IM ONCE PRN Rx Instructions: as a single dose; may repeat once Held aspirin 81 mg tablet,delayed release (DR/EC) 81 mg PO DAILY Hold Instructions: Resume on 10/06/23. No Action ferrous sulfate 325 mg (65 mg iron) tablet 325 mg PO DAILY Taltz Autoinjector 80 mg/mL auto-injector 80 mg subcut Q4W escitalopram oxalate 10 mg tablet 10 mg PO DAILY metoprolol succinate 25 mg tablet extended release 24 hr 50 mg PO BID lisinopril 5 mg tablet 5 mg PO DAILY methadone 10 mg/5 mL solution 90 mg PO DAILY olanzapine 10 mg tablet 15 mg PO QHS Relistor 150 mg tablet 150 mg PO DAILY sennosides-docusate sodium [Senexon-S] 8.6-50 mg tablet 2 tab-cap PO DAILY cyclobenzaprine 5 mg Tablet 5 mg PO BID pregabalin 150 mg capsule 150 mg PO BID Patient Comments: TAKE 1 CAP BY MOUTH TWO TIMES A DAY topiramate [Topamax] 50 mg tablet 50 mg PO BID Qty: 10 0RF Discharge Instructions Instructions: Nose Fracture ED, Head injury observation in adults Additional Instructions: At this time no evidence of intracranial bleed, you have a broken nose, there is some significant swelling in your face, please discuss your medications with your primary care provider. I do think that you may be oversedated and not metabolizing the methadone and olanzapine which may be leading you to have frequent falls. Please get up slowly, ask for help before you stand up from a sitting or lying position. At this time admission was offered to you declined at this time. However, if anything changes, worsening headache, double vision, visual disturbances vomiting, confusion abdominal pain chest pain or another frequent falls please return to the emergency department or call 911. Do not blow your nose, do not put anything in your nose. Ice your face least 3 times a day for the next few days. Referrals: SORAIDA ALMEIDA, [employer]CH[employer] SAL[employer] REPRESENTATIVE [Primary Care Provider] - 3 days HPI General Mode of arrival: EMS. Date/Time Provider Initiated Documentation: 10/04/23 12:23. Limitations to Documentation: no limitations. Information obtained by: patient, EMS, RN notes reviewed and old records reviewed. HPI Narrative: 32-year-old female presents to the ER via EMS with chief complaint of head injury, she has had increased falls over the past month, gets dizzy, last night patient was sitting on the edge of the bed and then woke up on the floor. She is on clopidogrel, aspirin, methadone, pregabalin. She denies any illicit substance use or alcohol. She does have significant swelling noted to her face, teeth are intact, she does have some midline C-spine tenderness with palpation, denies any chest pain abdominal pain nausea vomiting or diarrhea. She is alert and oriented x 3. Other past medical history includes migraine, hep C, anxiety, DVTs, sleep apnea renal insufficiency, GERD cardiomyopathy bipolar 1 disorder,, TIA, CHF, SVT ADHD. Related Data Home Medications Medication Instructions Recorded Confirmed cyclobenzaprine 5 mg tablet 5 mg PO BID 07/14/19 10/04/23 clopidogrel 75 mg tablet (Plavix) 75 mg PO DAILY #60 tabs 04/01/21 10/04/23 acetaminophen 500 mg tablet 650 mg PO Q6H 07/28/21 10/04/23 epinephrine 0.3 mg/0.3 mL 0.3 mg IM ONCE PRN 07/28/21 10/04/23 injection, auto-injector pregabalin 150 mg capsule 150 mg PO BID 07/28/21 10/04/23 topiramate 50 mg tablet (Topamax) 50 mg PO BID #10 tabs 07/30/21 10/04/23 ferrous sulfate 325 mg (65 mg 325 mg PO DAILY 04/13/22 10/04/23 iron) tablet ixekizumab 80 mg/mL subcutaneous 80 mg subcut Q4W 01/09/23 10/04/23 auto-injector (Taltz Autoinjector) aspirin 81 mg tablet,delayed 81 mg PO DAILY 02/23/23 10/04/23 release escitalopram oxalate 10 mg tablet 10 mg PO DAILY 02/23/23 10/04/23 metoprolol succinate 25 mg 50 mg PO BID 02/23/23 10/04/23 tablet,extended release 24 hr albuterol sulfate 90 mcg/actuation 2 puff inhalation Q6H PRN 09/27/23 10/04/23 aerosol inhaler diclofenac sodium 1 % topical gel 2 g topical QID 09/27/23 10/04/23 (Voltaren Arthritis Pain) lisinopril 5 mg tablet 5 mg PO DAILY 09/27/23 10/04/23 methadone 10 mg/5 mL oral solution 90 mg PO DAILY 09/27/23 10/04/23 methylnaltrexone 150 mg tablet 150 mg PO DAILY 09/27/23 10/04/23 (Relistor) olanzapine 10 mg tablet 15 mg PO QHS 09/27/23 10/04/23 sennosides 8.6 mg-docusate sodium 2 tab-cap PO DAILY 09/27/23 10/04/23 50 mg tablet (Senexon-S) Previous Rx's Medication Instructions Recorded clopidogrel 75 mg tablet (Plavix) 75 mg PO DAILY #60 tabs 04/01/21 topiramate 50 mg tablet (Topamax) 50 mg PO BID #10 tabs 07/30/21 Allergies Allergy/AdvReac Type Severity Reaction Status Date / Time meperidine HCl [From Demerol] Allergy Severe Anaphylaxsi Verified 10/04/23 12:30 s venom-honey bee Allergy Severe anaphylaxis Verified 10/04/23 12:30 [bee venom (honey bee)] lithium AdvReac Mild NAUSEA Verified 10/04/23 12:30 sertraline HCl [From Zoloft] AdvReac Mild NIGHTMARES Verified 10/04/23 12:30 General Stated Complaint: HeadInjury KALINA: 3 Review of Systems All systems reviewed & are unremarkable except as noted in HPI and below Constitutional Constitutional: Reports as per HPI, Denies body ache(s), Denies chills, Reports daytime sleepiness, Denies fever(s) and Reports frequent falls ENT Ears, Nose, Mouth, and Throat: Reports as per HPI Cardiovascular Cardiovascular: Denies chest pain, Reports syncope, Denies leg edema, Reports lightheadedness and Denies dyspnea Respiratory Respiratory: Denies chest congestion, Denies cough, Denies dyspnea and Denies wheezing Gastrointestinal Gastrointestinal: Denies abdominal pain, Denies nausea and Denies vomiting Neurologic Neurologic: Reports as per HPI, Denies confusion, Reports syncope, Reports frequent falls and Denies convulsions Psychiatric Psychiatric: Denies confusion Allergic/Immunologic Allergic/Immunologic: Denies wheezing Exam Narrative Exam Narrative: General: Obese, patient is slightly somnolent however, responds to verbal stimulation, conversant. Skin: Warm and Dry HEENT: Head: No palpable deformities, Normocephalic Eyes: Pupils PERRLA, sluggish, 2 mm bilaterally, by hospitalist. EOM's intact. No periorbital eccymosis or step off Ears: Canal patent. Tympanic membranes are clear . No williamson's sign, no hemptympanum. Nose/Face: Significant facial swelling, nasal tenderness, superficial laceration with bleeding controlled to the bridge of her nose, and stable with manipulation. Mouth/Throat: Upper lip swelling, small laceration noted to her upper lip, bleeding controlled upon arrival. Teeth and mandible are intact. Neck: Midline C-spine tenderness, patient placed in c-collar upon arrival, no step off, no deformity to palpation of C-spine. Trachea midline. Chest: No surface trauma. Nontender without crepitus or deformity. Lungs clear to ausculatation bilaterally. Heart: RRR, no rubs, murmurs or gallop. Abdomen: No abrasions, ecchymosis, or surface trauma. Nondistended. Nontender to palpation no guarding, rebound, or rigidity. Pelvis: Nontender to palpation and stable to compression. Femoral pulses strong and equal Extremities: no surface trauma. Sensation intact. Peripheral pulses intact and equal. Neuro: ANO x4, GCS 15, cranial nerves II through XII intact. Motor and sensory exam nonfocal. Reflexes are symmetric. Course Vital Signs Vital signs: Vital Signs Temperature 36.6 C 10/04/23 12:21 Pulse 92 H 10/04/23 12:21 Respiratory Rate 18 10/04/23 12:21 Blood Pressure 120/63 10/04/23 12:21 Pulse Oximetry 96 10/04/23 12:21 Temperature 36.6 C 10/04/23 12:21 Temperature Source Temporal Artery Scan 10/04/23 12:21 Pulse 92 H 10/04/23 12:21 Respiratory Rate 18 10/04/23 12:21 Blood Pressure 120/63 10/04/23 12:21 Blood Pressure Position Sitting 10/04/23 12:21 Pulse Oximetry 96 10/04/23 12:21 Oxygen Delivery Method Room Air 10/04/23 12:21 Oxygen Flow Rate 0 10/04/23 12:21 Pain Level 4 10/04/23 12:21 Medical Decision Making 32-year-old female presents to the ER via EMS with chief complaint of head injury, she has had increased falls over the past month, gets dizzy, last night patient was sitting on the edge of the bed and then woke up on the floor. She is on clopidogrel, aspirin, methadone, pregabalin. She denies any illicit substance use or alcohol. She does have significant swelling noted to her face, teeth are intact, she does have some midline C-spine tenderness with palpation, denies any chest pain abdominal pain nausea vomiting or diarrhea. She is alert and oriented x 3. Other past medical history includes migraine, hep C, anxiety, DVTs, sleep apnea renal insufficiency, GERD cardiomyopathy bipolar 1 disorder,, TIA, CHF, SVT ADHD. Please see physical exam, she is slightly sleepy, does awaken easily to verbal stimulus. She was placed in a c-collar upon arrival, Workup ordered including labs, PT PTT, UDS, hCG qualitative, CT head facial C-spine without contrast. Differential diagnosis includes but limited to CVA, subdural hematoma, substance abuse, CAD, will also order EKG. EKG was reviewed by Dr. Spear. ER attending, old EKG available for review, normal sinus rhythm, Labs are largely at baseline, positive nitrites, urinalysis shows squamous contamination, positive for methadone. UDS otherwise negative, I do suspect may be over-sedation from metabolism of medications including methadone and olanzapine. I did discuss this with the patient she verbalized understanding. Patient continues to deny any chest pain abdominal pain, worsening headache. I did discuss strict return instructions she verbalized understanding. She does have a ride she does live in a alf. Patient has been ambulatory up to the bathroom while in department, I did discuss admission with her she declined at this time after shared decision-making and lengthy discussion on strict return instructions and red flags to watch for she will be discharged home to her alf. She does have a friend who is here to give her a ride. I did discuss ice therapy, discussion of her medications with her PCP and strict return instructions. Medical Records Medical records reviewed: Yes I reviewed the patient's medical records. Medical records narrative: Patient has significant comorbidities Imaging Data Radiologic Study: Imaging: CT Scan Radiologist's impression: CLINICAL HISTORY: Facial trauma last PM, On Anticoagulation, trauma, C-spine pain. TECHNIQUE: Imaging Protocol: Axial computed tomography images with coronal and sagittal reformatted images were created and reviewed COMPARISON: CT CT BRAIN NECK CTA from 07/28/2021 FINDINGS: CT BRAIN: No skull fractures evident but there is left side nasal bone fracture demonstrated. In the intracranial compartment there is again noted a endovascular stent within the intracavernous left internal carotid artery. There is also embolization [place] material noted in similar location on the right side. There is no evidence of intracranial hemorrhage, mass effect, or shift of midline structures. There are no extra-axial fluid collections. The ventricles are not enlarged or shifted and there is no blood within the ventricular system nor within the basal cisterns. Area of abnormal hypodensity in the right frontal lobe from prior infarct appears unchanged. No new obvious infarcts evident. No hemorrhage. CT MAXILLOFACIAL BONES: Left-sided nasal bone fracture evident. No evidence of orbital blowout fracture or other facial fractures. CT CERVICAL SPINE: There is no evidence of fracture nor listhesis. No significant prevertebral soft tissue swelling. No facet malalignment evident. No significant osseous lesions evident. IMPRESSION: No acute intracranial findings on this noninfused CT scan of the brain.Again noted is an endovascular stent in the intracavernous left internal carotid artery and [place] material on the right side. 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 Left-sided nasal bone fracture now evident. No other facial fractures identified. No evidence of cervical spine fracture, malalignment, nor acute compromise of the cervical spinal canal. Lab Data Lab results reviewed: Yes I reviewed the patient's lab results. Labs: Laboratory Tests Range/Units 10/04/23 10/04/23 10/04/23 12:35 12:42 12:58 WBC (4.4-10.8) 10^3/uL 8.95 RBC (3.93-5.22) 10^6/uL 3.83 L Hgb (11.2-15.7) g/dL 11.3 Hct (36.0-46.0) % 36.5 MCV (80-95) fL 95 MCH (27.0-33.0) pg 29.5 MCHC (32.0-36.0) % 31.0 L RDW (11.7-14.6) % 16.4 H Plt Count (130-400) 10^3/uL 234 MPV (8.0-11.0) fL 11.0 Immature Gran % % 0.7 Neutrophils % % 69.4 Lymphocytes % % 21.8 Monocytes % % 6.1 Eosinophils % % 1.7 Basophils % % 0.3 Nucleated RBC % (0.0-0.3) % 0.0 Absolute Neutrophils (1.2-6.7) 10^3/uL 6.21 Absolute Lymphocytes (1.2-3.4) 10^3/uL 1.95 Absolute Monocytes (0.1-0.8) 10^3/uL 0.55 Absolute Eosinophils (0.0-0.7) 10^3/uL 0.15 Absolute Basophils (0.0-0.2) 10^3/uL 0.03 PT Cancelled 9.7 INR Cancelled 1.0 APTT (23.6-32.8) sec 25.2 Sodium (136-145) mmol/L 141 Potassium (3.5-5.1) mmol/L 4.8 Chloride (98-107) mmol/L 103 Carbon Dioxide (21.0-32.0) mmol/L 34.0 H Anion Gap (3-11) mmol/L 4.0 BUN (7-18) mg/dL 23 H Creatinine (0.55-1.02) mg/dL 1.0 Est GFR (CKD-EPI 2020) (mL/min/1.73m2) 76.29 Glucose (74-106) mg/dL 196 H Calcium (8.5-10.1) mg/dL 9.3 Total Bilirubin (0.2-1.0) mg/dL 0.1 L AST (15-37) U/L 23 ALT (14-59) U/L 37 Alkaline Phosphatase (46-116) U/L 134 H Total Protein (6.4-8.2) g/dL 8.0 Albumin (3.4-5.0) g/dL 3.0 L Serum HCG, Qual Negative Urine Color (Yellow) Urine Clarity (Clear) Urine pH (5-8) Ur Specific [place] (1.005-1.025) Urine Protein (Neg-Trace) mg/dL Urine Ketones (Negative) mg/dL Urine Blood (Negative) Urine Nitrite (Negative) Urine Bilirubin (Negative) Urine Urobilinogen (Up to 0.2) mg/dL Ur Leukocyte Esterase (Negative) Urine RBC (0-2) HPF Urine WBC (0-5) HPF Ur Epithelial Cells (Negative) HPF Urine Crystals (Negative) HPF Urine Bacteria (Negative) HPF Urine Casts (Negative) LPF Urine Mucus (Negative) Ur Culture Indicated? Urine Glucose (Negative) mg/dL Urine Opiates Screen (Negative) Urine Methadone Screen (Negative) Ur Barbiturates Screen (Negative) Ur Tricyclics Screen (Negative) Ur Amphetamines Screen (Negative) U Benzodiazepines Scrn (Negative) Urine Cocaine Screen (Negative) Ur THC Screen (Negative) ABO/Rh O Positive Antibody Screen NEGATIVE Range/Units 10/04/23 13:55 WBC (4.4-10.8) 10^3/uL RBC (3.93-5.22) 10^6/uL Hgb (11.2-15.7) g/dL Hct (36.0-46.0) % MCV (80-95) fL MCH (27.0-33.0) pg MCHC (32.0-36.0) % RDW (11.7-14.6) % Plt Count (130-400) 10^3/uL MPV (8.0-11.0) fL Immature Gran % % Neutrophils % % Lymphocytes % % Monocytes % % Eosinophils % % Basophils % % Nucleated RBC % (0.0-0.3) % Absolute Neutrophils (1.2-6.7) 10^3/uL Absolute Lymphocytes (1.2-3.4) 10^3/uL Absolute Monocytes (0.1-0.8) 10^3/uL Absolute Eosinophils (0.0-0.7) 10^3/uL Absolute Basophils (0.0-0.2) 10^3/uL PT INR APTT (23.6-32.8) sec Sodium (136-145) mmol/L Potassium (3.5-5.1) mmol/L Chloride (98-107) mmol/L Carbon Dioxide (21.0-32.0) mmol/L Anion Gap (3-11) mmol/L BUN (7-18) mg/dL Creatinine (0.55-1.02) mg/dL Est GFR (CKD-EPI 2020) (mL/min/1.73m2) Glucose (74-106) mg/dL Calcium (8.5-10.1) mg/dL Total Bilirubin (0.2-1.0) mg/dL AST (15-37) U/L ALT (14-59) U/L Alkaline Phosphatase (46-116) U/L Total Protein (6.4-8.2) g/dL Albumin (3.4-5.0) g/dL Serum HCG, Qual Urine Color (Yellow) Yellow Urine Clarity (Clear) Sl Cloudy Urine pH (5-8) 6.0 Ur Specific [place] (1.005-1.025) >= 1.030 H Urine Protein (Neg-Trace) mg/dL Negative Urine Ketones (Negative) mg/dL Negative Urine Blood (Negative) Negative Urine Nitrite (Negative) Positive H Urine Bilirubin (Negative) Negative Urine Urobilinogen (Up to 0.2) mg/dL 0.2 Ur Leukocyte Esterase (Negative) Negative Urine RBC (0-2) HPF 0-2 Urine WBC (0-5) HPF 0-2 Ur Epithelial Cells (Negative) HPF Many Urine Crystals (Negative) HPF Negative Urine Bacteria (Negative) HPF Many Urine Casts (Negative) LPF Negative Urine Mucus (Negative) Negative Ur Culture Indicated? No/Sq. Contamination Urine Glucose (Negative) mg/dL Negative Urine Opiates Screen (Negative) Negative Urine Methadone Screen (Negative) Positive A Ur Barbiturates Screen (Negative) Negative Ur Tricyclics Screen (Negative) Negative Ur Amphetamines Screen (Negative) Negative U Benzodiazepines Scrn (Negative) Negative Urine Cocaine Screen (Negative) Negative Ur THC Screen (Negative) Negative ABO/Rh Antibody Screen Quality:SDOH Health Related Social Needs: No Data to Display PFSH All Active Problems (Updated 10/04/23 @ 15:38 by Yanique Justice NP) Head injury, closed, with brief LOC (Acute) Frequent falls (Acute) Fracture of nasal bone (Acute) Nocturnal hypoxia (Acute) Asymptomatic bacteriuria (Acute) Encephalopathy acute (Acute) Dysphagia (Acute) Left hemiparesis (Acute) Nodule of right lobe of thyroid gland (Acute) Lumbosacral spondylosis without myelopathy (Acute) CVA (cerebrovascular accident) (Chronic) TIA (transient ischemic attack) (Acute) Opioid dependence (Chronic) QT prolongation (Acute) Pneumonia due to COVID-19 virus (Acute) Allergic reaction (Acute) Medication overuse headache (Acute) Chronic headache (Chronic) PFO (patent foramen ovale) (Chronic) Hypersomnia (Acute) Altered mental status (Acute) Abnormal movements (Acute) Right hemiparesis (Acute) Discharge planning issues (Acute) DVT prophylaxis (Acute) Back pain (Acute) Atypical chest pain (Acute) Acute focal neurological deficit (Acute) Stroke-like symptom (Acute) Acute right-sided muscle weakness (Acute) Acute CVA (cerebrovascular accident) (Acute) Status migrainosus (Acute) Stroke (Chronic) Dyspepsia (Acute) Acute febrile illness (Acute) Nephrolithiasis (Chronic) Scoliosis (Chronic) PTSD (post-traumatic stress disorder) (Chronic) History of intravenous drug abuse (Chronic) Depression (Chronic) Asthma (Chronic) Migraine headache with aura (Chronic ~2000) Hepatitis C infection (Chronic) Chronic daily headache (Chronic) Opioid dependence in controlled environment (Chronic) Medical History (Updated 10/04/23 @ 15:38 by Yanique Justice NP) Migraine Personal history of urinary calculi Opioid dependence in remission Hx of hepatitis C Anxiety Arthralgia of multiple sites History of prediabetes Staphylococcal pneumonia DVT of upper extremity (deep vein thrombosis) Sleep apnea Renal insufficiency GERD (gastroesophageal reflux disease) Hypomagnesemia History of intracranial aneurysm Tachycardia Cardiomyopathy Cocaine abuse Insomnia related to another mental disorder Acute adjustment disorder with anxiety Bipolar 1 disorder Obesity Chronic constipation Polyarthralgia SOB (shortness of breath) Lumbar back pain Poor dentition Dental abscess Thyroid nodule Asthma, chronic Tinea Stress incontinence Knee joint pain Secondary amenorrhea Arthritis Anemia Lung nodule Prediabetes Hypoxia Brain TIA Bacterial pneumonia Atrial septal aneurysm Chronic systolic CHF (congestive heart failure) [place] [facility] [place] Aneurysm of ophthalmic artery L, s/p stent Intracranial aneurysm Spondylosis of lumbar spine SVT (supraventricular tachycardia) S/p ablation ADD (attention deficit disorder) Fibromyalgia Chronic pain Therapeutic opioid induced constipation Community acquired bacterial pneumonia Blood bacterial culture positive Surgical History (Updated 09/27/23 @ 11:09 by Reina Harris RN, RN) History of bunionectomy of left great toe H/O lithotripsy Status post ablation operation for arrhythmia SVT History of S/P cystoscopy with ureteral stent placement History of cerebral aneurysm repair (~2014) [place] paraphthalmic artery [place] [facility] [place] Status post thoracic spinal fusion S/P tubal ligation Family History (Updated 09/27/23 @ 11:06 by Reina Harris RN, RN) Paternal Aunt Cerebral aneurysm Diabetes Hypertension Maternal Aunt Migraines Bipolar 1 disorder Maternal Grandmother Heart disease Hypertension Migraines Paternal Grandmother Heart disease Diabetes Father Diabetes Hypertension Hyperlipidemia Alcohol use disorder Depression Maternal Grandfather Hypertension Hyperlipidemia Alcohol use disorder Paternal Uncle Colon cancer Paternal Grandfather Hypertension Fibromyalgia Diabetes Bipolar 1 disorder Brother Migraines Mother Migraines Social History Smoking/Tobacco Use Status: Current every day Tobacco Type: cigarettes Quit status: considering quitting Smoking risk assessment performed?: Yes (0.5 ppd) Alcohol Intake: current Alcohol Intake frequency: holidays/special occasions only Alcohol type: wine Details: pt reports social use Drug use: Current Sobriety Substance use type: former substance user, marijuana, crack/cocaine, heroin, opiates and IV drugs Details: former heroin and cocaine user, pt states that she has been sober 3 years as of 07/2022. only drugs that she uses currently is marijuana Household members: none Number of Children: 3 Do you feel safe at home: Yes Do you feel safe in your relationship?: Yes History History 2 Para 3 Hx # Term Pregnancies 2 Multiple births Hx # Pregnancies Ectopic pregnancies AB induced Hx Number of Living Children 3 AB spontaneous
[2023-10-04 12:55] LABS: Abs Immature Grans 0.06 10^3/uL (0.0-0.06); Absolute Basophil Count 0.03 10^3/uL (0.0-0.2); Absolute Eosinophil Count 0.15 10^3/uL (0.0-0.7); Absolute Lymphocyte Count 1.95 10^3/uL (1.2-3.4); Absolute Monocyte Count 0.55 10^3/uL (0.1-0.8); Absolute Neutrophil Count 6.21 10^3/uL (1.2-6.7); Basophils % 0.3 %; Eosinophils % 1.7 %; HCT 36.5 % (36.0-46.0); HGB 11.3 g/dL (11.2-15.7); Immature Grans % 0.7 %; Lymphocytes % 21.8 %; MCH 29.5 pg (27.0-33.0); MCV 95 fL (80-95); Monocytes % 6.1 %; Neutrophils % 69.4 %; Platelet Count 234 10^3/uL (130-400); RBC 3.83 10^6/uL (3.93-5.22); RDW 16.4 % (11.7-14.6); RDW-SD 57.5 fL; WBC 8.95 10^3/uL (4.4-10.8)
[2023-10-04 13:08] LABS: PTT Activated 25.2 sec (23.6-32.8); Prothrombin Time 9.7 sec (9.1-11.1)
[2023-10-04 13:15] LABS: ALT 37 U/L (14-59); AST 23 U/L (15-37); Alkaline Phosphatase 134 U/L (46-116); BUN 23 mg/dL (7-18); Bilirubin, Total 0.1 mg/dL (0.2-1.0); Calcium 9.3 mg/dL (8.5-10.1); Chloride 103 mmol/L (98-107); Estimated GFR 76.29 (mL/min/1.73m2); Glucose 196 mg/dL (74-106); Potassium 4.8 mmol/L (3.5-5.1); Sodium 141 mmol/L (136-145)
[2023-10-04 13:33] LABS: HCG Qual (Serum) Negative
[2023-10-04 14:06] LABS: Bilirubin Negative (Negative); Blood Negative (Negative); Clarity Sl Cloudy (Clear); Glucose Negative (Negative); Ketones Negative (Negative); Leukocyte Esterase Negative (Negative); Nitrite Positive (Negative); Specific Gravity >= 1.030 (1.005-1.025); Urobilinogen 0.2 mg/dL (Up to 0.2)
[2023-10-04 14:13] LABS: Bacteria Many HPF (Negative); C & S Indicated? No/Sq. Contamination; Casts Negative LPF (Negative); Crystals Negative HPF (Negative); Epithelial Cells Many HPF (Negative); Mucus Negative (Negative); RBC 0-2 HPF (0-2); WBC 0-2 HPF (0-5)
[2023-10-04 14:23] LABS: *AMPHETAMINES SCREEN URINE Negative (Negative); *BARBITURATES SCREEN URINE Negative (Negative); *BENZODIAZEPINES SCREEN URINE Negative (Negative); Cannabinoids THC Negative (Negative); Cocaine Screen,Urine Negative (Negative); METHADONE URINE SCREEN Positive (Negative); OPIATES URINE SCREEN Negative (Negative)
[2023-10-04 14:24] LABS: Tricyclic Antidepressants Negative (Negative)
--- NOTE | 2023-10-04 15:46 | NUR.NOTE ---
PT reported increased discomfort w/ placed cervial collar at apprx 1530 today. PT requested that it be removed. After advising the PT regarding its purpose and that we have NOT yet cleared her of potential injury, the PT decided that she wanted it removed anyway. Adivsed the PT that i could not remove it at this time and would not suggest its removal. Advised the PT of risks of taking the cervial colar off and the risks of injury. PT stated that she understood the advise and removed it on her own with no assistance from staff.
== END 2023-10-04 15:58 | disposition home or self-care (01) ==
LOC: ER 16:20
PROVIDERS: Emergency Provider Registered Nurse Emergency; PCP Nurse Practitioner Family
DX: S02.2XXA Fracture of nasal bones, initial encounter for closed fracture; W19.XXXA Unspecified fall, initial encounter; R29.6 Repeated falls; Z79.82 Long term (current) use of aspirin; Z79.899 Other long term (current) drug therapy; F11.20 Opioid dependence, uncomplicated; S06.9X1A Unspecified intracranial injury with loss of consciousness of 30 minutes or less, initial encounter; Z86.73 Personal history of transient ischemic attack (TIA), and cerebral infarction without residual deficits; I50.9 Heart failure, unspecified
CPT/HCPCS: 80053; 80307; 86850; 86900; 86901; 93005; 99285; 70450; 70486; 72125; 81003; 81015; 84703; 85025; 85610; 85730; 93010

== ENCOUNTER 2023-12-27 16:41 | Emergency (ER) | payer MEDICARE, MEDICAID, SELFPAY ==
[2023-12-27] VITALS (46 sets, daily range): BP systolic 57–190; BP diastolic 21–166; PULSE 73–156; RESP 9–25; TEMP 36.1–36.4; O2SAT 90–100
--- NOTE | 2023-12-27 16:30 | RT.EKG_ITS ---
APPROVED REPORT Exam: Resting ECG Reason for Exam: Low BP Patient Location: E HR:79 bpm ECG Measurements Heart Rate 79 AXIS ID 134 P 20 QRSd 110 QRS -15 QT 410 T 25 QTc 470 Conclusion Sinus rhythm...normal P axis, V-rate 60- 99 Physician: EKG: Sinus rhythm, rate 79, QT 410, QRS 110, no STEMI.
[2023-12-27 17:01] LABS: BE (Venous) -4 mmol/L (-2-3); HCO3 (Venous) 24 mmol/L (23-28); O2 Sat (Venous) 50 %; TCO2 (Venous) 23 mmol/L (24-29); pCO2 (Venous) 57 mmHg (41-51); pH (Venous) 7.22 (7.31-7.41); pO2 (Venous) 31 mmHg
[2023-12-27 17:02] LABS: Abs Immature Grans 0.14 10^3/uL (0.0-0.06); Absolute Basophil Count 0.03 10^3/uL (0.0-0.2); Absolute Eosinophil Count 0.09 10^3/uL (0.0-0.7); Absolute Lymphocyte Count 1.28 10^3/uL (1.2-3.4); Absolute Neutrophil Count 12.32 10^3/uL (1.2-6.7); Basophils % 0.2 %; Eosinophils % 0.6 %; HCT 39.6 % (36.0-46.0); HGB 12.1 g/dL (11.2-15.7); Lymphocytes % 8.8 %; MCH 28.7 pg (27.0-33.0); MCHC 30.6 % (32.0-36.0); MCV 94 fL (80-95); MPV 10.3 fL (8.0-11.0); Monocytes % 4.9 %; Neutrophils % 84.5 %; Platelet Count 324 10^3/uL (130-400); RBC 4.22 10^6/uL (3.93-5.22); RDW 14.9 % (11.7-14.6); RDW-SD 51.3 fL; WBC 14.58 10^3/uL (4.4-10.8)
[2023-12-27 17:03] LABS: Absolute Monocyte Count 0.71 10^3/uL (0.1-0.8)
[2023-12-27 17:15] LABS: INR 1.1 (0.9-1.1); PTT Activated 26.1 sec (23.6-32.8); Prothrombin Time 10.7 sec (9.1-11.1)
[2023-12-27 17:26] LABS: NT-proBNP 124 pg/mL (<300); Troponin I < 50 ng/L (< or =60)
[2023-12-27 17:29] LABS: ALT 26 U/L (14-59); AST 30 U/L (15-37); Albumin 2.8 g/dL (3.4-5.0); Alkaline Phosphatase 137 U/L (46-116); Anion Gap 9.7 mmol/L (3-11); BUN 46 mg/dL (7-18); Bilirubin, Total 0.33 mg/dL (0.2-1.0); CO2 25.3 mmol/L (21.0-32.0); CREATININE 5.1 mg/dL (0.55-1.02); Calcium 9.5 mg/dL (8.5-10.1); Chloride 102 mmol/L (98-107); Estimated GFR 10.73 (mL/min/1.73m2); Glucose 173 mg/dL (74-106); Potassium 4.6 mmol/L (3.5-5.1); Sodium 137 mmol/L (136-145); TSH (W/Ref FT4) 0.77 uIU/mL (0.36-3.74); Total Protein 8.1 g/dL (6.4-8.2)
--- NOTE | 2023-12-27 17:45 | DI.CT_ITS ---
Exam(s) CT HEAD WO EXAM: CT HEAD WO CLINICAL HISTORY: hx of bleed and stroke, eval for bleed. TECHNIQUE: Imaging Protocol: Axial computed tomography images with coronal and sagittal reformatted images were created and reviewed COMPARISON: CT CT HEAD CERV SPINE FACIAL WO from 10/04/2023 FINDINGS: There are no skull fractures. There is no fluid in the visualized paranasal sinuses. Again noted is an endovascular stent throughout the length of the left intra cavernous internal carot id artery. There is also again noted marker devices in the proximal and distal aspects of the intra cavernous right internal carotid artery as well as embolization coil material again noted within the intra cavernous right internal carotid artery. There is no evidence of intracranial hemorrhage, mass effect, or shift of midline structures. There are no extra-axial fluid collections. The ventricles are not enlarged or shifted and there is no blo od within the ventricular system nor within the basal cisterns. There is unchanged abnormal hypodensity in the right frontal lobe convexity from prior infarct, uncha nged. No new areas of obvious new infarct nor hemorrhage in the brain, intra or extra-axial. Two findings in the orbits. IMPRESSION: No acute intracranial findings. Again noted is endovascular stent throughout the length of the intra cavernous left internal carotid artery as well as embolization coil material within the intracavernou s right internal carotid artery. Right frontal lobe convexity infarct again noted, unchanged. No evidence of intracranial hemorrhage, intra or extra-axial and no obvious new infarcts evident. RADIATION DOSE DELIVERED: 921.25mGy.cm Total DLP DATA REPOSITORY: All CT scans at this facility are submitted to the National Radiology Data Registry (NRDR) Dose Index Registry (DIR) with the [employer] (ACR). RADIATION OPTIMIZATION: All CT scans at this facility use at least one of these dose optimization te chniques: automated exposure control; mA and/or kV adjustment per patient size (includes targeted exa ms where dose is matched to clinical indication); or iterative reconstruction.
--- NOTE | 2023-12-27 17:46 | DI.CT_ITS ---
Exam(s) CT CHEST/ABD/PEL WO EXAM: CT CHEST/ABD/PEL WO CLINICAL HISTORY: acute renal failure, chest pain. TECHNIQUE: Imaging Protocol: Axial computed tomography images with coronal and sagittal reformatted images were created and reviewed CONTRAST MATERIAL: Intravenous: none Oral: None COMPARISON: CT CT CHEST PE CTA from 08/16/2022 FINDINGS: CHEST: Scoliosis and Tejeda rods throughout the thoracic spinal column again noted. LUNGS: Right lung is clear. The infiltrate in the right lung which was evident on CT scan of 023 has resolved, as has the right pleural effusion.. In addition, the confluent infiltrate which wa s previously present in the left lower lobe has also resolved. However, presently there is ground-gl ass infiltrate throughout the left lower lobe as well as in the left upper lobe including the lingula r segment. No associated left-side pleural effusion. No significant focal findings in the trachea a nd mainstem bronchi. No bronchiectasis. MEDIASTINUM: No obvious hilar nor mediastinal adenopathy. No subcarinal adenopathy.Partially visualiz ed thyroid unremarkable. CARDIAC: Heart size is normal. There is no pericardial effusion.Caliber of the thoracic aorta is wit hin normal limits. OSSEOUS: Scoliosis and Tejeda rods in the thoracic spine.. ABDOMEN: There is no ascites. LIVER: There are no obvious focal hepatic lesions evident of this noninfused study. GALLBLADDER/BILIARY: No obvious gallbladder pathology. CBD is not dilated. PANCREAS: No evidence of obvious pancreatic mass nor dilatation of the pancreatic duct. SPLEEN: There is splenomegaly. Craniocaudal measurement of the spleen is 16.6 cm. ADRENALS: There are no significant adrenal masses. KIDNEYS: No calculi nor hydronephrosis. No obvious solid renal masses. No cysts evident. ABDOMINAL AORTA: Abdominal aorta is not enlarged. LYMPH NODES: There is no retroperitoneal nor para-aortic adenopathy. ABDOMINAL WALL/GI: No evidence of significant anterior abdominal wall nor inguinal hernia. No evidence of bowel obstruction. PELVIS: LYMPH NODES: There is no intrapelvic nor inguinal adenopathy. GI: No evidence of appendicitis.As abundant fecal material in the left side of the colon and sigmoid. No evidence of significant diverticular disease. URINARY BLADDER: No calculi nor obvious masses evident REPRODUCTIVE: Uterus size normal. Ovarian size normal. Small calcifications are noted in both ovari es. There is no fluid in the adnexal regions and cul-de-sac. OSSEOUS: No fractures. No significant osseous lesions. Subtle evidence of sacroiliitis. IMPRESSION: 1. Compared to prior CT scan of 08/16/2022 there has been clearing of the previously present confluen t bilateral lung infiltrates and right pleural effusion. Presently the right lung is clear, however, there is now different type of infiltrate throughout the left lower lobe as well as the superior kimberley gular segment of the left lung, this being patchy/ground-glass. No associated pleural effusion. No significant secretions evident in the trachea and mainstem bronchi. No intrathoracic adenopathy a t this time. 2. There is splenomegaly again noted. No adenopathy. The CT reports called by myself to ER physician 12/27/2023 6:20 p.m. RADIATION DOSE DELIVERED: 785.32mGy.cm Total DLP DATA REPOSITORY: All CT scans at this facility are submitted to the National Radiology Data Registry (NRDR) Dose Index Registry (DIR) with the [employer] (ACR). RADIATION OPTIMIZATION: All CT scans at this facility use at least one of these dose optimization te chniques: automated exposure control; mA and/or kV adjustment per patient size (includes targeted exa ms where dose is matched to clinical indication); or iterative reconstruction.
--- NOTE | 2023-12-27 19:25 | DI.RAD_ITS ---
Exam(s) XR PORTABLE CHEST AP POST LINE EXAM: XR PORTABLE CHEST AP POST LINE CLINICAL HISTORY: s/p central line placement. TECHNIQUE: 2D digital imaging was performed. COMPARISON: CR,XR XR PORTABLE CHEST AP from 08/16/2022 FINDINGS: Single AP portable view. Distal tip the newly placed right jugular central line is at the SVC-RA junction Heart size is slightly prominent, unchanged. No obvious pulmonary infiltrates nor pleural effusions. No pneumothorax. Tejeda rods again noted in the thoracic spine. IMPRESSION: Distal tip of right jugular central line is at the SVC-RA junction No acute pulmonary findings although please note that CT scan performed today revealed subtle infiltr ate in the left lower lobe and lingular segment of the upper lobe. No infiltrates in the right lung. No pleural effusions. DATA REPOSITORY: RADIATION DOSE DELIVERED:
--- OUTSIDE RECORDS SUMMARY | 2023-12-27 19:42 | XMS_ITS ---
Author Organization [facility] Billing Info Address [address] [place], [place] [address] Care Team Providers Care Optometric Assistant Name Role Phone No Primary Care, XX Primary Care Provider MISTY Mead Unavailable [phone] Allergies Allergen (clinical drug ingredient) Drug/Non Drug Allergy documented on EMR Reaction Allergy Type Onset Date Status lithium [place] Unknown Drug Allergy Active meperidine Meperidine Unknown Drug Allergy Activ e sertraline Sertraline Unknown Drug Allergy Activ e REASON FOR VISIT Hosp F/U - left lung loculated effusion, pneumonia Medications Medication SIG (Take, Route, Frequency, Duration) Notes Start Date End Date Status Methadone HCl 10 MG 1 tablet Orally Once a day Active Nicorette 2 MG 1 piece chew for 30 minutes as needed Mouth/Throat every 8 hrs Active Metoprolol Succinate 25 MG 1 capsule Ora lly Once a day for 30 day(s) Active Nicoderm CQ 14 MG/24HR 1 patch to skin Transdermal Once a day for 30 day(s) Active Olanzapine 15 MG 1 tablet Orally Once a day for 30 day(s) Active Lidocaine 5 % 1 patch remove after 12 hours Externally Once a day Active Cyclobenzaprine HCl 10 MG 1 tablet at be dtime as needed Orally Once a day for 30 day(s) Active Ferrous Sulfate 325 (65 Fe) MG 1 tablet Orally Once a day for 30 day(s) Active Amoxicillin-Pot Clavulanate 875-125 MG 1 tablet Orally every 12 hrs for 10 day(s) Active Apixaban 5 MG 1 tablet Orally Twic e a day for 30 day(s) Active Pregabalin 75 MG 1 capsule Orally Twi ce a day Active Sulfamethoxazole-Trimethopri m 800-160 MG 1 tablet Orally Twice a day for 10 day(s) Active Acetaminophen 500 MG 2 tablet as needed Orally every 6 hrs Active Paroxetine HCl 20 MG 1 tablet in the mor no Orally Once a day for 30 day(s) Active Social History Tobacco Use: Social History Observation Description Date Details (start date - stop date) Current Smoker NA - NA Tobacco Status: Question Answer Notes Patient is a current every day smoker Encounters Encounter Location Date Provider Diagnosis [id number] [address] [facility] [place] [address] 09/21/2022 MISTY AVALOS Plan Of Treatment No Information
--- OUTSIDE RECORDS SUMMARY | 2023-12-27 19:42 | XMS_ITS ---
Author Organization [facility] Billing Info Address [address] [place], [place] [address] Care Team Providers Care Community Planning Technician Name Role Phone No Primary Care, XX Primary Care Provider MISTY Mead Unavailable [phone] Allergies Allergen (clinical drug ingredient) Drug/Non Drug Allergy documented on EMR Reaction Allergy Type Onset Date Status lithium [place] Unknown Drug Allergy Active meperidine Meperidine Unknown Drug Allergy Activ e sertraline Sertraline Unknown Drug Allergy Activ e REASON FOR VISIT d effusion, pneumonia Medications Medication SIG (Take, Route, Frequency, Duration) Notes Start Date End Date Status Apixaban 5 MG 1 tablet Orally Twic e a day for 30 day(s) Active Pregabalin 75 MG 1 capsule Orally Twi ce a day Active Lidocaine 5 % 1 patch remove after 12 hours Externally Once a day Active Acetaminophen 500 MG 2 tablet as needed Orally every 6 hrs Active Methadone HCl 10 MG 1 tablet Orally Once a day Active Ferrous Sulfate 325 (65 Fe) MG 1 tablet Orally Once a day for 30 day(s) Active Olanzapine 15 MG 1 tablet Orally Once a day for 30 day(s) Active Paroxetine HCl 20 MG 1 tablet in the morning Orally Once a day for 30 day(s) Active Metoprolol Succinate 25 MG 1 capsule Ora lly Once a day for 30 day(s) Active Cyclobenzaprine HCl 10 MG 1 tablet at be dtime as needed Orally Once a day for 30 day(s) Active Nicoderm CQ 14 MG/24HR 1 patch to skin Transdermal Once a day for 30 day(s) Not-Taking Nicorette 2 MG 1 piece chew for 30 minutes as needed Mouth/Throat every 8 hrs Not-Taking Amoxicillin-Pot Clavulanate 875-125 MG 1 tablet Orally every 12 hrs for 10 day(s) Not-Taking Sulfamethoxazole-Trimethop rim 800-160 MG 1 tablet Orally Twice a day for 10 day(s) Not-Taking Social History Tobacco Use: Social History Observation Description Date Details (start date - stop date) Current Smoker NA - NA Tobacco Status: Question Answer Notes Patient is a current every day smoker Encounters Encounter Location Date Provider Diagnosis 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
--- OUTSIDE RECORDS SUMMARY | 2023-12-27 19:42 | XMS_ITS | Patient Health Record ---
Author Organization [facility] Billing Info Address [address] [place] [address] Care Team Providers Care Supervisor Shipping Room Name Role Phone No Primary Care, XX Primary Care Provider Unavai lable Allergies Allergen (clinical drug ingredient) Drug/Non Drug Allergy documented on EMR Reaction Allergy Type Onset Date Status lithium [place] Unknown Drug Allergy Active meperidine Meperidine Unknown Drug Allergy Activ e sertraline Sertraline Unknown Drug Allergy Activ e Reason For Referral No Information Medications Medication SIG (Take, Route, Frequency, Duration) Notes Start Date End Date Status Nicoderm CQ 14 MG/24HR 1 patch to skin Transdermal Once a day for 30 day(s) Not-Taking Apixaban 5 MG 1 tablet Orally Twic e a day for 30 day(s) Active Ferrous [...] Once a day for 30 day(s) Active Nicorette 2 MG 1 piece chew for 30 minutes as needed Mouth/Throat every 8 hrs Not-Taking Pregabalin 75 MG 1 capsule Orally Twi ce a day Active Lidocaine 5 % 1 patch remove after 12 hours Externally Once a day Active Amoxicillin-Pot Clavulanate 875-125 MG 1 tablet Orally every 12 hrs for 10 day(s) Not-Taking Acetaminophen 500 MG 2 tablet as needed Orally every 6 hrs Active Sulfamethoxazole-Trimethop rim 800-160 MG 1 tablet Orally Twice a day for 10 day(s) Not-Taking Methadone HCl 10 MG 1 tablet Orally Once a day Active Social History Tobacco Use: Social History Observation Description Date Details (start date - stop date) Current Smoker NA - NA Tobacco Status: Question Answer Notes Patient is a current every day smoker Plan Of Treatment Pending Test Test Name Order Date XR- CHEST 2V ([id number]) (PRHP-CXR2V) 2022 Insurance Providers Payer Name Payer Address Payer Phone Subscriber Number Group Number Insured Name Patient Relationship to Insured Coverage Start Date Coverage End Date [place]ICARE [place] [address] [email or web address] MADALYN CÁRDENAS [id number] Ghada Ervin Self - patient is the insured 3 [facility] [employer] [address] [place], [place] [phone] [id number] Ghada Ervin Self - patient is the insured 3 Medical (General) History Medical History History ICD Code Sepsis PNA Asthma Morbid obesity Brain aneurysm Tobacco abuse CVA Chronic pain Rt sided pneumonia Emphyema RUE DVT Acute hypercarbic respiratory depression - resolved CACHORRO Normocytic anemia R thyroid nodule HTN Surgical History Surgery Date(Month/Year) Right VATS, Drainage of Empyema and Deco rtication 09/01/22
--- OUTSIDE RECORDS SUMMARY | 2023-12-27 19:42 | XMS_ITS ---
Author Organization [facility] Billing Info Address [address] [place], [place] [address] Care Team Providers Care Equity Manager Name Role Phone No Primary Care, XX Primary Care Provider DES Spencer Unavailable [phone] Allergies Allergen (clinical drug ingredient) Drug/Non Drug Allergy documented on EMR Reaction Allergy Type Onset Date Status lithium [place] Unknown Drug Allergy Active meperidine Meperidine Unknown Drug Allergy Activ e sertraline Sertraline Unknown Drug Allergy Activ e REASON FOR VISIT PRH d/c and appt Medications Medication SIG (Take, Route, Frequency, Duration) Notes Start Date End Date Status Lidocaine 5 % 1 patch remove after 12 hours Externally Once a day Active Nicorette 2 MG 1 piece chew for 30 minutes as needed Mouth/Throat every 8 hrs Active Apixaban 5 MG 1 tablet Orally Twic e a day for 30 day(s) Active Methadone HCl 10 MG 1 tablet Orally Once a day Active Acetaminophen 500 MG 2 tablet as needed Orally every 6 hrs Active Pregabalin 75 MG 1 capsule Orally Twi ce a day Active Cyclobenzaprine HCl 10 MG [...] Once a day for 30 day(s) Active Sulfamethoxazole-Trimethopri m 800-160 MG 1 tablet Orally Twice a day for 10 day(s) Active Ferrous Sulfate 325 (65 Fe) MG 1 tablet Orally Once a day for 30 day(s) Active Amoxicillin-Pot Clavulanate 875-125 MG 1 tablet Orally every 12 hrs for 10 day(s) Active Social History Tobacco Use: Social History Observation Description Date Details (start date - stop date) Current Smoker NA - NA Tobacco Status: Question Answer Notes Patient is a current every day smoker Encounters Encounter Location Date Provider Diagnosis [id number] [address] [facility] [address] [place], [place] [id number] 09/08/2022 DES HAWKINS 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
--- OUTSIDE RECORDS SUMMARY | 2023-12-27 19:43 | XMS_ITS | Encounter Summary ---
Author Organization [facility] [place] [address] Care Team Providers Care Telephoto Engineer Name Role Phone Alistair Ramos MD Primary Care Provider [phone] Reason for Visit * Reason Comments Specialty Pharmacy Review Encounter Details Date Type Department Care Team (Late st Contact Info) Description 08/02/2022 Specialty [place] [address] Jose Alejandro Moya, [facility] Social History Tobacco Use Types Packs/Day Years Used Date Smoking Tobacco: Every Day Cigarettes Smokeless Tobacco: Never Comments:5-8 Cigs a day Alcohol Use Standard Drinks/Week Comments Not Currently 0 (1 standard drink = 0.6 oz pur e alcohol) seldom Sex and Gender Information Value Date Recorded Sex Assigned at Not on file Gender Identity Not on file Sexual Orientation Not on file documented as of this encounter Progress Notes * Jose Alejandro Moya - 08/02/2022 11:59 PM EDT [facility] has completed a benefits investigation for Ghada Ervin to review their eligibility to fill at [facility]. Per patient's medication list they are prescribed TALTZ AUTOINJECTOR 80 MG/ML and the medication is currently filled at the [facility]. documented in this encounter Plan of Treatment Upcoming Encounters Date Type Department Care Team (Late st Contact Info) Description 01/24/2024 3:40 PM EDT Office Visit Cardiology at [address] [phone] Rangel Willams MD [facility] [place] [address] documented as of this encounter Visit Diagnoses Not on filedocumented in this encounter Care Teams Telephoto Engineer Relationship Specialty Start Date End Date Alistair Ramos MD [address] [place] [address] PCP - General Family Medicine 02/16/22 documented as of this encounter
--- OUTSIDE RECORDS SUMMARY | 2023-12-27 19:43 | XMS_ITS | Encounter Summary ---
Author Organization [facility] [place] [address] Care Team Providers Care Adult Basic Education Manager Name Role Phone Alistair Ramos MD Primary Care Provider [phone] Encounter Details Date Type Department Care Team (Latest Contact Info) Description 04/25/2023 Travel Social History Tobacco Use Types Packs/Day Years Used Date Smoking Tobacco: Every Day Cigarettes 0.5 8 Smokeless Tobacco: Never Comments:5-8 Cigs a day Alcohol Use Standard Drinks/Week Comments Not Currently 0 (1 standard drink = 0.6 oz pur e alcohol) seldom Sex and Gender Information Value Date Recorded Sex Assigned at Not on file Gender Identity Not on file Sexual Orientation Not on file documented as of this encounter Plan of Treatment Upcoming Encounters Date Type Department Care Team (Late st Contact Info) Description 01/24/2024 3:40 PM EDT Office Visit Cardiology at [address] [address] Rangel Willams MD [facility] [place] [address] documented as of this encounter Visit Diagnoses Not on filedocumented in this encounter Care Teams Adult Basic Education Manager Relationship Specialty Start Date End Date Alistair Ramos MD [address] [place] [address] [place] [phone] PCP - General Family Medicine 02/16/22 documented as of this encounter
--- OUTSIDE RECORDS SUMMARY | 2023-12-27 19:43 | XMS_ITS | Encounter Summary ---
[place] [address] Care Team Providers Care Express Manager Name Role Phone Alistair Ramos MD Primary Care Provider Reason for Visit * Reason Comments Prior Authorization Taltz 80mg/mL SOAJ Encounter Details Date Type Department Care Team (Late st Contact Info) Description 08/02/2022 Specialty [place] [phone] Tucker Barnard, [facility] Social History Tobacco Use Types Packs/Day Years [...] as of this encounter Progress Notes * Tucker Barnard - 08/02/2022 1:00 PM EDT [facility], Medication Prior Authorization Submission Patient: Ghada Ervin Patient : 1990 Patient Address: [address] [place] [id number] (home) Medication Name: TALTZ AUTOINJECTOR 80 MG/ML SUBCUTANEOUS Medication ID: [id number] Subscriber Insurance: [place] Medicaid Subscriber Insurance Comment: Fax: Physician: JOHN MENSAH Physician Comment: Sent Via: Fax Roldan: Ref/Case/PA#: Medication Strength Frequency Requested: Taltz 80mg/mL SOAJ. Inject the contents of one pen (80mg) SQ every 4 weeks. Qty/Day Supply: 05/21 New Start: Renewal Diagnosis & ICD-10 Code: Psoriasis L40.9 Patient Notified: Yes Submission Notes: None Tucker Barnard 08/02/22 1:02 PM * Tucker Barnard - 08/02/2022 1:00 PM EDT [facility], Prior Authorization Approval Medication Name: TALTZ AUTOINJECTOR 80 MG/ML SUBCUTANEOUS Medication ID: [id number] Approval Dates: 08/02/2022 to 08/03/2023 Insurance requirements/notes: None Other Notes: None Case/Reference #: [id number] Approval notification Received via: Fax Copay: $ 3.00 Copay assistance: None Copay Notes: Insurance mandated Pharmacy: [facility] Fillable at [facility]: Yes Patient Notified: No Pharmacy staff will be reaching out to the patient to inform them of their medication's [facility]. If applicable, a pharmacist will speak with the patient to offer our specialty pharmacy services and to arrange delivery of their medication. Tucker Barnard 08/02/22 1:43 PM documented in this encounter Plan of Treatment Upcoming Encounters Date Type Department Care Team (Late st Contact Info) Description 01/24/2024 3:40 PM EDT Office Visit Cardiology at [address] [phone] Rangel Willams MD [facility] [place] [address] documented as of this encounter Visit Diagnoses Not on filedocumented in this encounter Care Teams Express Manager Relationship Specialty Start Date End Date lAistair Ramos MD [address] [place] [address] [place] [phone] PCP - General Family Medicine 02/16/22 documented as of this encounter
--- OUTSIDE RECORDS SUMMARY | 2023-12-27 19:43 | XMS_ITS | Encounter Summary ---
Author Organization [facility] [place] [address] Care Team Providers Care Jet Engine Mechanic Name Role Phone Alistair Ramos MD Primary Care Provider [phone] Encounter Details Date Type Department Care Team (Late st Contact Info) Description 10/18/2023 Refill Dermatology at [address] [address] Johnnie Tompkins MD [facility] [address] [place] [address] Psoriasis Social History Tobacco Use Types Packs/Day Years [...] 3:40 PM EDT Office Visit Cardiology at [address] [address] Rangel Willams MD [facility] [place] [address] documented as of this encounter Visit Diagnoses Diagnosis Psoriasis Other psoriasis documented in this encounter Care Teams Jet Engine Mechanic Relationship Specialty Start Date End Date Alistair Ramos MD [facility] [address] [place] [phone] PCP - General Family Medicine 02/16/22 documented as of this encounter
--- OUTSIDE RECORDS SUMMARY | 2023-12-27 19:43 | XMS_ITS | Encounter Summary ---
[place] [address] Care Team Providers Care Beauty Sales Advisor Name Role Phone Alistair Ramos MD Primary Care Provider [phone] Encounter Details Date Type Department Care Team (Latest Contact Info) Description 10/18/2023 Specialty [place] [address] Isela Dhillon RPH Refill Coordination - 28 day recurrence (ixekizumab) for Dermatology, Clinical Assessment - 10 month recurrence (ixekizumab) for Dermatology Social History Tobacco Use Types Packs/Day Years [...] as of this encounter Progress Notes * Isela Dhillon RPH - 10/18/2023 11:08 AM EDT Specialty Pharmacy Ongoing Clinical Assessment Note Comprehensive Medication Management (CMM): Specialty Consult, Opt Out Ghadatamra Ervin is a 32 y.o. (1990) female, who is being followed by [facility] for service of Ixekizumab. A review of the medication therapy was performed. The medication was Refilled as scheduled, and all medication related questions and concerns were addressed. The specialty pharmacy staff will follow up with the patient 5-7 days prior to next refill. Is patient willing to proceed with Clinical Assessment?: No Summary and Recommendations: Spoke to patient in regards to Taltz. Medication, allergies, and health conditions were confirmed. Patient notes no issues, changes, or concerns; she would like to opt out of consultation at this time. We will continue to follow up with patient accordingly. Allergies and Drug intolerance: Allergies Allergen Reactions Bee Pollen Anaphylaxis Meperidine Hcl Anaphylaxis and Other (See Comments) flushing, respiratory trouble Bemiss Other (See Comments) Flu like sx Zoloft [Sertraline] Other (See Comments) Flu like sx Problem List: Patient Active Problem List Diagnosis Code Heart palpitations R00.2 Chronic pain syndrome G89.4 Fibromyalgia M79.7 Migraines G43.909 ADD (attention deficit disorder) F98.8 Scoliosis M41.9 SVT (supraventricular tachycardia) I47.10 Encounter for long-term (current) use of other medications Z79.899 Chronic migraine without aura without status migrainosus, not intractable G43.709 Spondylosis of lumbar region without myelopathy or radiculopathy M47.816 Seizures R56.9 Patient non adherence Z91.199 Kidney stones N20.0 Depression F32.A Back pain M54.9 Stroke I63.9 HFrEF (heart failure with reduced ejection fraction) I50.20 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 escitalopram (Lexapro) 10 mg tablet Take 10 mg by mouth daily. ixekizumab (Taltz Autoinjector) 80 mg/mL Auto-Injector Inject the contents of one autoinjector (80 mg) under the skin once every 4 weeks 1 mL 3 ixekizumab (Taltz Autoinjector, 3 Pack,) 80 mg/mL Auto-Injector Inject the contents of two autoinjectors (160 mg) under the skin once on week 0, then inject the contents of one autoinjector (80 mg) once on weeks 2, 4, 6, 8, 10, 12 and once every 4 weeks thereafter 3 mL 0 ixekizumab (Taltz Autoinjector, 2 Pack,) 80 mg/mL Auto-Injector Inject the contents of one autoinjector (80 mg) under the skin once on weeks 4, 6, 8, 10, 12 and once every 4 weeks thereafter 2 mL 1 fluocinolone (DERMA-SMOOTHE) 0.01 % Oil Apply a thin film onto scalp and massage thoroughly into wet or dampened hair/scalp; cover with shower cap. Leave on overnight (or for at least 4 hours). Remove by washing hair with shampoo and rinsing thoroughly. Please do this 3 days in a row then take 1 week off. Repeat this cycle as needed. (Patient not taking: Reported on 04/25/2023) 120 mL 2 OLANZapine (ZyPREXA) 15 mg Tablet Take 15 mg by mouth daily. hydrOXYchloroQUINE (Plaquenil) 200 mg Tablet Take 200 mg by mouth daily. Vyvanse 40 mg Capsule Take 40 mg by mouth daily. pregabalin (LYRICA) 150 mg Capsule Take 150 mg by mouth 2 times daily. aspirin EC 81 mg Tablet, Delayed Release (E.C.) Take 1 tablet by mouth daily. 30 tablet 3 hydrOXYzine (Atarax) 25 mg Tablet TAKE ONE TABLET BY MOUTH THREE TIMES A DAY NEEDED ( USE IN COMBINATION WITH NAPROXEN FOR MIGRAINE ) 30 tablet 3 clopidogrel (PLAVIX) 75 mg Tablet Take 1 tablet by mouth daily. 90 tablet 2 pregabalin (LYRICA) 75 mg Capsule 2 times daily. EPINEPHrine 0.3 mg/0.3 mL Auto-Injector INJECT INTO THE MUSCLE ONCE DIRECTED NEEDED 0 naproxen sodium (ANAPROX) 550 mg Tablet Take 1 tablet by mouth 3 times daily as needed (Use in combination with Hydroxyzine for migraine ). 60 tablet 3 lisinopril (PRINIVIL;ZESTRIL) 5 mg Tablet Take 1 tablet by mouth daily. 90 tablet 3 Miscellaneous Medical Supply [facility] Measure blood pressure daily. Record pressure (Patient not taking: Reported on 04/25/2023) 1 each 0 metoprolol succinate (TOPROL-XL) 25 mg Tablet Sustained Release 24 hr Take 2 tablets by mouth daily. 30 tablet 3 ondansetron (ZOFRAN) 4 mg Tablet Take 1 tablet by mouth every 8 hours. (Patient not taking: Reported on 04/25/2023) 20 tablet 0 pantoprazole (PROTONIX) 40 mg Tablet, Delayed Release (E.C.) Take 2 tablets by mouth daily. (Patient not taking: Reported on 04/25/2023) 90 tablet 3 PARoxetine (PAXIL) 20 mg Tablet Take 20 mg by mouth every morning. PROAIR HFA 90 mcg/actuation HFA Aerosol Inhaler docusate sodium (COLACE) 100 mg Capsule TAKE ONE CAPSULE BY MOUTH TWICE A DAY 1 FLOVENT HFA 220 mcg/actuation HFA Aerosol Inhaler acetaminophen (TYLENOL) 325 mg Tablet Take 2 tablets by mouth every 4 hours as needed for Pain (mild pain). 30 tablet 1 No current facility-administered medications for this visit. Therapy Assessment and Recommendations: 10/18/2023 Clinical Assessment Review Therapy start date 05/18/2022 What date will you need this fill by? 10/26/2023 Appropriate Therapy Yes Additional equipment/supplies required No Care Plan reviewed and approved by pharmacist Yes Medication reconciliation discrepancies (compared to [facility] med list) Yes Medication Reconciliation Discrepancies now on methylnaltrexone Pharmacist follow-up needed Yes Comments yearly follow-up Patient informed of specialty services: Yes Patient is aware a licensed pharmacist is available 24 hours a day, 7 days a week to discuss medication-related questions and concerns: Yes Patient verbalizes understanding of the common side effect profile of their medication(s).The patient is able to call 911 or seek urgent care if signs/symptoms of allergy or harmful adverse reactionsoccur: Yes Patient understands no change to current drug regimen were made at the appointment and that [facility] is providing recommendations (summary at top of note) for provider review and follow up: Yes Medication Therapy Recommendations No medication therapy recommendations to display Isela Dhillon RPH 10/18/23 11:15 AM documented in this encounter Plan of Treatment Upcoming Encounters Date Type Department Care Team (Late st Contact Info) Description 01/24/2024 3:40 PM EDT Office Visit Cardiology at [address] [address] Rangel Willams MD [facility] [place] [address] documented as of this encounter Visit Diagnoses Diagnosis Psoriasis Other psoriasis documented in this encounter Care Teams Beauty Sales Advisor Relationship Specialty Start Date End Date Alistair Ramos MD [address] [place] [address] PCP - General Family Medicine 02/16/22 documented as of this encounter
--- OUTSIDE RECORDS SUMMARY | 2023-12-27 19:43 | XMS_ITS | Encounter Summary ---
[place] [address] Care Team Providers Care Bioinformaticist Name Role Phone Alistair Ramos MD Primary Care Provider [phone] Reason for Visit * Reason Comments Medication Refill Encounter Details Date Type Department Care Team (Late st Contact Info) Description 08/24/2022 Specialty [place] [address] Eugenio Vazquez RPH Social History Tobacco Use Types Packs/Day Years [...] as of this encounter Progress Notes * Eugenio Vazquez RPH - 08/24/2022 2:00 PM EDT Clinical Management Plan: Refill Specialty Pharmacy Consultation; Eugenio Vazquez RPH Comprehensive Medication Management (CMM) Ghada Ervin Ms. Ghada Ervin is a 31 y.o. (1990) female who was contacted in regard to a specialty medication refill reminder. Contact made with patient regarding gio. A review of the medication therapy was performed. The medication was refilled as scheduled, and all medication related questions and concerns were addressed. The specialty pharmacy staff will follow up with the patient 5-7 days prior to next refill. Was a change made to the Care Plan: No Allergies and Drug intolerance: Allergies Allergen Reactions ??? Bee Pollen Anaphylaxis ??? Meperidine Hcl Anaphylaxis and Other (See Comments) flushing, respiratory trouble ??? Sharon Other (See Comments) Flu like sx ??? Zoloft [Sertraline] Other (See Comments) Flu like sx Medication Reconciliation Discrepancies (compared to [facility] med list) No Specialty Pharmacy Refill Questionnaire 08/24/2022 Refill Questionnaire What is the name of the specialty medication you are refilling? Taltz Are you taking any new medications? No Any new medical condition? No Any new allergies? No Any new side effects that are bothersome? No What date will you need this fill by? 08/31/2022 Adherence: Any missed doses? No Patient understands no changes to current drug regimen were made. Eugenio Vazquez RPH 08/24/22 2:01 PM documented in this encounter Plan of Treatment Upcoming Encounters Date Type Department Care Team (Late st Contact Info) Description 01/24/2024 3:40 PM EDT Office Visit Cardiology at [address] [address] Rangel Willams MD [facility] [place] [place] [address] documented as of this encounter Visit Diagnoses Not on filedocumented in this encounter Care Teams Bioinformaticist Relationship Specialty Start Date End Date Alistair Ramos MD [facility] [place] [address] PCP - General Family Medicine 02/16/22 documented as of this encounter
--- OUTSIDE RECORDS SUMMARY | 2023-12-27 19:43 | XMS_ITS | Encounter Summary ---
[place] [address] Care Team Providers Care Visor Installer Name Role Phone Alistair Ramos MD Primary Care Provider [phone] Reason for Visit * Reason Comments Prior Authorization Taltz 80mg/mL SOAJ Encounter Details Date Type Department Care Team (Late st Contact Info) Description 06/30/2023 Specialty [place] [id number] Tucker Barnard, [facility] Social History Tobacco Use Types Packs/Day Years [...] encounter Progress Notes * Tucker Barnard - 06/30/2023 11:08 AM EST [facility], Medication Prior Authorization Submission Patient: Ghada Ervin Patient : 1990 Patient Address: [address] [place] [id number] (home) Medication Name: TALTZ AUTOINJECTOR 80 MG/ML SUBCUTANEOUS Medication ID: Subscriber Insurance: [place] Subscriber Insurance Comment: Fax: Physician: CESAR SUMMERS Physician Comment: Sent Via: [facility] Roldan: [id number] Ref/Case/PA#: [id number] Medication Strength Frequency Requested: Taltz 80mg/mL SOAJ. Inject the contents of one pen (80mg) SQ every 4 weeks Qty/Day Supply: 05/21 New Start: Insurance Change Diagnosis & ICD-10 Code: Psoriasis L40.9 Patient Notified: Yes Submission Notes: None Tucker Barnard 06/30/23 11:11 AM * Tucker Barnard - 06/30/2023 11:08 AM EST [facility], Prior Authorization Approval Medication Name: TALTZ AUTOINJECTOR 80 MG/ML SUBCUTANEOUS Medication ID: Approval Dates: 06/30/2023 to 04/23/2039 Insurance requirements/notes: None Other Notes: None Case/Reference #: [id number] Approval notification Received via: Fax Copay: Copay assistance: Copay Card Copay Notes: Insurance mandated Pharmacy: [facility] Fillable at [facility]: Yes Patient Notified: Left Voicemessage Pharmacy staff will be reaching out to the patient to inform them [facility]. If applicable, a pharmacist will speak with the patient to offer our specialty pharmacy services and to arrange delivery of their medication. Tucker Barnard 07/03/23 7:58 AM documented in this encounter Plan of Treatment Upcoming Encounters Date Type Department Care Team (Late st Contact Info) Description 01/24/2024 3:40 PM EDT Office Visit Cardiology at [address] [address] Rangel Willams MD [facility] [place] [address] documented as of this encounter Visit Diagnoses Not on filedocumented in this encounter Care Teams Visor Installer Relationship Specialty Start Date End Date Alistair Ramos MD [address] [place] [address] [place] [address] PCP - General Family Medicine 02/16/22 documented as of this encounter
--- OUTSIDE RECORDS SUMMARY | 2023-12-27 19:43 | XMS_ITS | Clinical Summary ---
[facility] [place] [address] Care Team Providers Care [employer] Name Role Phone Alistair Ramos MD Primary Care Provider [phone] Allergies Active Allergy Reactions Criticality Noted Date Comments Bee Pollen Anaphylaxis High 01/15/2014 [place] Other (See Comments) 01/30/2015 Flu like sx Meperidine Hcl Anaphylaxis,Other (S ee Comments) High flushing, respiratory trouble Sertraline Other (See Comments) 01/30/2015 Flu like sx Medications Medication Sig Dispensed Refills Start Date End Date Status acetaminophen (TYLENOL) 325 mg Tablet Take 2 tablets by mouth every 4 hours as needed for Pain (mild pain). 30 tablet 1 05/12/2015 Active PROAIR HFA 90 mcg/actuation HFA Aerosol Inhaler 02/02/2018 Active docusate sodium (COLACE) 100 mg Capsule TAKE ONE CAPSULE BY MOUTH TWICE A DAY 1 10/31/2017 Active FLOVENT HFA 220 mcg/actuation HFA Aerosol Inhaler 02/02/2018 Active PARoxetine (PAXIL) 20 mg Tablet Take 20 mg by mouth every morning. Active ondansetron (ZOFRAN) 4 mg Tablet Take 1 tablet by mouth every 8 hours. 20 tablet 09/12/2018 Active Additional Information Patient not taking.Reported on 04/25/2023 pantoprazole (PROTONIX) 40 mg Tablet, Delayed Release (E.C.) Take 2 tablets by mouth daily. 90 tablet 3 09/12/2018 Active Additional Information Patient not taking.Reported on 04/25/2023 metoprolol succinate (TOPROL-XL) 25 mg Tablet Sustained Release 24 hr Take 2 tablets by mouth daily. 30 tablet 3 10/09/2018 Active Miscellaneous Medical Supply [facility] Measure blood pressure daily. Record pressure 1 each 10/24/2018 Active Additional Information Patient not taking.Reported on 04/25/2023 lisinopril (PRINIVIL;ZESTRIL) 5 mg Tablet Take 1 tablet by mouth daily. 90 tablet 3 12/30/2018 Active pregabalin (LYRICA) 75 mg Capsule 2 times daily. 01/10/2019 Active EPINEPHrine 0.3 mg/0.3 mL Auto-Injector INJECT INTO THE MUSCLE ONCE DIRECTED NEEDED 0 12/12/2018 Active naproxen sodium (ANAPROX) 550 mg Tablet Take 1 tablet by mouth 3 times daily as needed (Use in combination with Hydroxyzine for migraine ). 60 tablet 3 01/15/2019 Active clopidogrel (PLAVIX) 75 mg Tablet Take 1 tablet by mouth daily. 90 tablet 2 01/23/2019 Active hydrOXYzine (Atarax) 25 mg Tablet TAKE ONE TABLET BY MOUTH THREE TIMES A DAY NEEDED ( USE IN COMBINATION WITH NAPROXEN FOR MIGRAINE ) 30 tablet 3 06/14/2019 Active OLANZapine (ZyPREXA) 15 mg Tablet Take 15 mg by mouth daily. 04/26/2021 Active hydrOXYchloroQUINE (Plaquenil) 200 mg Tablet Take 200 mg by mouth daily. 02/24/2021 Active Vyvanse 40 mg Capsule Take 40 mg by mouth daily. 04/27/2021 Active pregabalin (LYRICA) 150 mg Capsule Take 150 mg by mouth 2 times daily. 02/25/2021 Active aspirin EC 81 mg Tablet, Delayed Release (E.C.) Take 1 tablet by mouth daily. 30 tablet 3 04/29/2021 Active fluocinolone (DERMA-SMOOTHE) 0.01 % OilIndications:Pso riasis Apply a thin film onto scalp and massage thoroughly into wet or dampened hair/scalp; cover with shower cap. Leave on overnight (or for at least 4 hours). Remove by washing hair with shampoo and rinsing thoroughly. Please do this 3 days in a row then take 1 week off. Repeat this cycle as needed. 120 mL 2 03/23/2022 Active Additional Information Patient not taking.Reported on 04/25/2023 ixekizumab (Taltz Autoinjector) 80 mg/mL Auto-InjectorIndic ations:Psoriasis Inject the contents of one autoinjector (80 mg) under the skin once every 4 weeks 1 mL 3 03/01/2023 Active escitalopram (Lexapro) 10 mg tablet Take 10 mg by mouth daily. Active methylnaltrexone (Relistor) 150 mg tablet Take 450 mg by mouth daily. Active Active Problems Patient Care Coordination No te Formatting of this note migh t be different from the original. Pt's phone turned off, best number to reach her is [phone] [facility] Medical Marijuana Registry Signed with Pain Clinic on 09/04/2015. NARCOTIC CONTRACT with Pain Management on 10/28/2015. Violated Contract-No More Opioids. Primary H/A Provider: NONE NO SHOW in Neurology / Headache Clinic for new patient visit with Dr. Hill on 05/24/17 Problem Noted Date Diagnosed Date Psoriasis 09/27/2023 PFO with atrial septal aneurysm 05/09/2019 Overview (10/08/2021): SIOBHAN 09/12/2018: SUMMARY: 1. There is an aneurysmal inter-atrial septum present with a PFO noted by both color and agitated saline injections. 2. Global left ventricular systolic function is mildly reduced. Ejection fraction is estimated to be 50%. There is diffuse hypokinesis present. 3. The right ventricle is normal in size. Right ventricular global systolic function is normal. 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 Diagnostic cerebral angiogram.?? Vessels injected:?? Right internal carotid artery. 2.?? 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 06/01/15 Stage II coil embolization of paraclinoid aneurysm on the right HFrEF (heart failure with reduced ejection fract ion) 09/24/2018 Overview (08/18/2021): SIOBHAN on 09/12/18 which showed interatrial aneurysm with PFO and mild reduced EF Left Ventricle: Global left ventricular systolic function is mildly reduced. Ejection fraction is estimated to be 50%. There is diffuse hypokinesis present. TTE 03/01/2021: SUMMARY: 1. Poor endocardial definition. 2. Grossly normal study. 3. Compared with the prior TTE of 09/06/2018, the estimated LVEF is Higher. Left Ventricle: The left ventricular chamber size is normal. Left ventricular wall thickness is normal. No ventricular septal defect is visualized. There is normal global left ventricular systolic function. The quantitative left ventricular ejection fraction by biplane Marcano's method is 58%. There are no left ventricular segmental wall motion abnormalities. Left ventricular diastolic function is normal. Doppler assessment is consistent with normal left sided filling pressure. CHF Exac 07-30-21 (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 Chronic migraine without aur a without status migrainosus, not intractable 03/25/2015 Encounter for long-term (current) use of other m edications 10/14/2014 SVT (supraventricular tachycardia) 10/10/2014 ADD (attention deficit disorder) 09/18/2014 Scoliosis 09/18/2014 Heart palpitations 01/15/2014 Overview (03/12/2014): Echo: normal heart size and function, trivial MR and TR Loop recorder: SVT rate 212 BPM Chronic pain syndrome 01/15/2014 Fibromyalgia 01/15/2014 Migraines 01/15/2014 Seizures Patient non adherence Kidney stones Depression Back pain Resolved Problems Problem Noted Date Diagnosed Date Resolved Date 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 Diagnostic cerebral angiogram.?? Vessels injected:?? Right internal carotid artery. 2.?? 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 06/01/15 Stage II coil embolization of paraclinoid aneurysm on the right CIS - Entered not Verified 04/22/2010 1 CIS - Follow up: Scoloiosis 01/24/2014 Encounters Date Type Department Care Team Description 10/23/2023 Orders Only Dermatology at [address] [place] [address] Johnnie Tompkins MD High risk medication use 10/18/2023 Refill Dermatology at [facility] [address] [place] [address] Johnnie Tompkins MD Psoriasis 10/18/2023 Specialty [place] [address] Isela Dhillon RPH Refill Coordination - 28 day recurrence (ixekizumab) for Dermatology, Clinical Assessment - 10 month recurrence (ixekizumab) for Dermatology from Last 3 Months Immunizations Name Administration Dates Next Due Influenza PF, Split 01/13/2015 Family History Medical History Relation Comments Migraines Brother Depression Father Diabetes Father Hypertension Father Migraines Maternal Aunt Diabetes Maternal Grandfather Coronary Artery Disease Maternal Grandmother Hypertension Maternal Grandmother Migraines Maternal Grandmother Depression Mother Migraines Mother Diabetes Paternal Aunt Hypertension Paternal Aunt Hypertension Paternal Grandfather Coronary Artery Disease Paternal Grandmother Diabetes Paternal Grandmother Diabetes Paternal Uncle Hypertension Paternal Uncle Relation Status Comments Brother Father Alive Maternal Aunt Maternal Grandfather Maternal Grandmother Mother Alive Paternal Aunt Paternal Grandfather Paternal Grandmother Paternal Uncle Social History Tobacco Use Types Packs/Day Years Used Date Smoking Tobacco: Every Day Cigarettes 0.5 8 Smokeless Tobacco: Never Tobacco Cessation:Ready to Q uit: Not Asked; Counseling Given: Not Answered Comments:5-8 Cigs a day Alcohol Use Standard Drinks/Week Comments Not Currently 0 (1 standard drink = 0.6 oz pur e alcohol) seldom Sex and Gender Information Value Date Recorded Sex Assigned at Not on file Gender Identity Not on file Sexual Orientation Not on file Last Filed Vital Signs Vital Sign Reading Time Taken Comments Blood Pressure 130/77 04/25/2023 1:37 PM EST Pulse 88 04/25/2023 1:37 PM EST Temperature 36.2 ??C (97.2 ??F) 05/08/2020 8:55 AM ES T Respiratory Rate 18 05/08/2020 10:45 AM EST Oxygen Saturation 97% 04/25/2023 1:37 PM EST Inhaled Oxygen Concentration - - Weight 113.6 kg (250 lb 8 oz) 04/25/2023 1:37 PM EST Height 157.5 cm (5' 2) 04/25/2023 1:37 PM EST Body Mass Index 45.82 04/25/2023 1:37 PM EST Plan of Treatment Upcoming Encounters Date Type Department Care Team (Late st Contact Info) Description 01/24/2024 3:40 PM EDT Office Visit Cardiology at [address] [address] Rangel Willams MD [facility] [address] Health Maintenance Due Date Last Done Comments Pneumococcal Vaccine: At-Ris k 5-64yrs (1 of 2 - PCV) 11/02/1995 Tdap adult 2008 Tetanus vaccine 2008 HPV test 11/02/2019 PAP Smear 11/02/2019 Lipid Screening 09/07/2023 09/06/2018, 09/06/2018 Covid-19 Vaccine ( season) 2023 Influenza (Flu) vaccine (1 o f 1 - Influenza standard series) 12/24/2023 01/13/2015 HIV screen Completed 09/08/2018 Hepatitis C Screening Completed 03/23/2022 , 09/10/2018, 09/08/2018 Medical Devices Implanted Type Area Chief Passenger Ship Steward/Stewardess Device Identifier Shelf Expiration Date Model / Serial / Lot Coil-06/01/2015 Implanted:Qty: 1 on 06/01/2015 by Johnny Bass MD Coil [employer] - [id number] 03/23/2018 [id number] / / [id number] Description:placed in the ri ght paraophtalmic artery Coil-06/01/2015 Implanted:Qty: 2 on 06/01/2015 by Johnny Bass MD [employer] - [id number] 06/01/2017 [id number] / / [id number] Description:placed in the ri ght paraophtalmic artery Coil-06/01/2015 Implanted:Qty: 1 on 06/01/2015 by Johnny Bass MD [employer]il [employer] - [id number] 03/23/2018 [id number] / / [id number] Description:placed in the ri ght paraophthalmic artery Coil-06/01/2015 Implanted:Qty: 1 on 06/01/2015 by Johnny Bass MD [employer] - [id number] 01/21/2018 [id number] / / [id number] Description:placed in the ri ght paraopthalmic artery Coil-06/01/2015 Implanted:Qty: 1 on 06/01/2015 by Johnny Bass MD [employer]il [employer] - [id number] 03/23/2018 [id number] / / [id number] Description:placed in right paraopthalmic artery Devic,Piplin,Embl ztn,4.0x20mm ([id number])-01/22/20 Implanted:Qty: 1 on 01/21/2019 by Ayaan Castro MD IMPLANTS Left: Arterial [employer] - [employer] PED-400- 20 / / [id number] Description:lica aneursym st ent Devic,Embol,Pipel n,Flx,4.25x14 ([id number])-01/22/20 Implanted:Qty: 1 on 01/21/2019 by Ayaan Castro MD IMPLANTS Left: Arterial [employer] - [employer] PED-425- 14 / / [id number] Description:lica stwnt Nueroform Ez 3-05/11/2015 Implanted:Qty: 1 on 05/11/2015 by Johnny Bass MD Stent Right: Arterial [employer] - [id number] / / [id number] Description:DOUGLAS NEUROFROM E Z 3 STENT [id number] Procedures Procedure Name Priority Date/Time Associated Diagnosis Comments HC VENIPUNCTURE Routine 03/23/2022 4:50 PM EST High risk medication use HIV SCREEN, 4TH GENERATION ([facility]/CGP/APD/NLH) Routine 09/08/2018 6:46 AM EDT HDL/CHOL PROFILE Routine 09/06/2018 10:0 1 AM EDT from Last 3 Months or Most Recently Relevant to Health Maintenance Results * (ABNORMAL) Hepatitis C Antibody (03/23/2022 4:50 PM EST) [facility] Hepatitis C Antibody Positive(A ) Negative [facility] Blood 03/23/2022 4:50 PM EST 03/23/2022 4:58 PM EST Narrative Resulting Agency Comment Spec In Lab Bessie Choudhary MD CHEMISTRY ORDERABLES Performing Organization Address [facility] Co de Phone Number [facility] [place] [address] * HIV Screen, 4th Generation (Leb/CGP) (09/08/2018 6:46 AM EDT) [facility] HIV Ab/Ag Screen Negative Negative [facility] Comment: This 4th Generation HIV test screens for the presence of the HIV-1 p24 antigen as well as antibodies reactive against HIV-1 and HIV-2. A negative screen does not rule out an acute HIV infection. If acute HIV infection is suspected, testing should be repeated in 2 - 3 weeks or HIV nucleic acid testing performed. Blood specimen (specimen) 09/08/2018 6:46 AM EDT 09/08/2018 6:56 AM EDT Narrative Resulting Agency Comment Spec In Lab Jhonathan Garza MD CHEMISTRY ORDERABL ES Performing Organization Address [facility] Co de Phone Number [facility] [place] [address] * HDL/Cholesterol Profile (09/06/2018 10:01 AM EDT) Pathologist [facility] Cholesterol, Total 129 mg/dL [facility] Comment: Lower Risk: <200 mg/dL Average Risk: 200-239 mg/dL Higher Risk: >hy=442 mg/dL HDL Cholesterol 37 mg/dL [facility] Comment: Males: ?? Higher Risk: <40 mg/dL Females: ?? HIgher Risk: <50 mg/dL Cholesterol/HDL Ratio 3.5 ratio [facility] Chol/HDL Interpretation See Note [facility] Comment: Lipid management should be guided by a patient? s ASCVD risk, goals and preferences. ACC/AHA Guidelines recommend high intensity statin if clinical ASCVD or LDL greater than or equal to 190 mg/dL. http://tinyurl.com/DEC-IIV-Ojkygmnyr Measure LDL if Total Cholesterol minus HDL Cholesterol is greater than 220 mg/dL. Adults aged 40-75 with LDL 70-189 mg/dL should have their 10 year ASCVD risk estimated with the ACC/AHA ASCVD risk gold marker http://tools.acc.org/CQPRE-Fvev-Iiocuozzd/ Statin should be discussed if risk greater than or equal to 7.5% in non-diabetics. With diabetes, moderate intensity statin is recommended if risk less than 7.5%, high intensity if risk greater than or equal to 7.5%. Annual lipid monitoring on statins is not necessary. Lifestyle modification is a critical component of ASCVD risk reduction. Blood specimen (specimen) 09/06/2018 10:01 AM EDT 09/06/2018 11:07 AM EDT Narrative Resulting Agency Comment Spec In Lab Jhonathan Garza MD CHEMISTRY ORDERABL ES [facility] [place] [address] from Last 3 Months or Most Recently Relevant to Health Maintenance Advance Directives * Attempt Cardiopulmonary Resuscitation - Inpatient (Latest Code Status on File) Date Activated Date Inactivated Comments 05/08/2020 7:34 AM 05/09/2020 4:34 AM Question Answer Comments Code Status decision made by: Patient * Full Code Date Activated Date Inactivated Comments 01/22/2019 4:40 AM 01/23/2019 5:06 PM Question Answer Comments Does patient have capacity to make decision: Yes * Full Code Date Activated Date Inactivated Comments 01/21/2019 12:28 PM 01/22/2019 4:34 AM Question Answer Comments Does patient have capacity to make decision: Yes * Full Code Date Activated Date Inactivated Comments 01/21/2019 7:01 AM 01/21/2019 12:28 PM Question Answer Comments Does patient have capacity to make decision: Yes * Full Code Date Activated Date Inactivated Comments 10/31/2018 8:18 AM 2018 4:39 AM Question Answer Comments Does patient have capacity to make decision: Yes Care Teams [employer] Relationship Specialty Start Date End Date Alistair Ramos MD [address] [place] [address] PCP - General Family Medicine 02/16/22
--- OUTSIDE RECORDS SUMMARY | 2023-12-27 19:43 | XMS_ITS | Encounter Summary ---
Author Organization [facility] [place] [place] [address] Care Team Providers Care Bobbin Cleaner Hand Name Role Phone Alistair Ramos MD Primary Care Provider [phone] Encounter Details Date Type Department Care Team (Late st Contact Info) Description 08/02/2022 Telephone Dermatology at [facility] [address] [place] [address] Johnnie Tompkins MD [facility] [address] [place] [address] Social History Tobacco Use Types Packs/Day Years [...] on file documented as of this encounter Miscellaneous Notes * Telephone Encounter - Rosita Wisdom - 08/02/2022 10:56 AM EDT I called patient at the request of Bruce to reschedule med refill. I left a detailed voicemail offering an appointment next Monday. I requested she call back to confirm. documented in this encounter Plan of Treatment Upcoming Encounters Date Type Department Care Team (Late st Contact Info) Description 01/24/2024 3:40 PM EDT Office Visit Cardiology at [address] [address] Rangel Willams MD [facility] [place] [address] documented as of this encounter Visit Diagnoses Not on filedocumented in this encounter Care Teams Bobbin Cleaner Hand Relationship Specialty Start Date End Date Alistair Ramos MD [address] [place] [address] [place] [address] PCP - General Family Medicine 02/16/22 documented as of this encounter
--- OUTSIDE RECORDS SUMMARY | 2023-12-27 19:43 | XMS_ITS | Encounter Summary ---
Author Organization [facility] [place] [place] [address] Care Team Providers Care Canary Raiser Name Role Phone Alistair Ramos MD Primary Care Provider [phone] Encounter Details Date Type Department Care Team (Late st Contact Info) Description 01/23/2023 Refill Dermatology at [address] [address] Johnnie Tompkins MD [facility] [address] [place] [address] Psoriasis Social History Tobacco Use Types Packs/Day [...] 3:40 PM EDT Office Visit Cardiology at [address] [address] Rangel Willams MD [facility] [place] [address] documented as of this encounter Visit Diagnoses Diagnosis Psoriasis Other psoriasis documented in this encounter Care Teams Canary Raiser Relationship Specialty Start Date End Date Alistair Ramos MD [address] [place] [address] PCP - General Family Medicine 02/16/22 documented as of this encounter
--- OUTSIDE RECORDS SUMMARY | 2023-12-27 19:43 | XMS_ITS | Encounter Summary ---
[place] [address] Care Team Providers Care Member Service Specialist Name Role Phone Alistair Ramos MD Primary Care Provider [phone] Reason for Visit * Reason Comments Medication Management Encounter Details Date Type Department Care Team (Late st Contact Info) Description 04/03/2023 Specialty [place] [address] Blanca Post RPH Social History Tobacco Use Types Packs/Day [...] as of this encounter Progress Notes * Blanca Post RPH - 04/03/2023 3:54 PM EST Clinical Management Plan: Refill Specialty Pharmacy Consultation; Blanca post RPH Comprehensive Medication Management (CMM) Ghada Ervin Ms. Ghada Ervin is a 32 y.o. (1990) female who was contacted in regard to a specialty medication refill reminder. Contact made with patient regarding John. A review of the medication therapy was performed. The medication was refilled as scheduled, and all medication related questions and concerns were addressed. The specialty pharmacy staff will follow up with the patient 5-7 days prior to next refill. Was a change made to the Care Plan: no If yes, should the medication be held: No Assessment and Recommendations: Medication Management Type of Medication Management: chronic disease management Referred By: pharmacist Recipient: beneficiary Provider: pharmacist - other [facility] Follow-up Time Spent: 1-15 min Method of Contact: by telephone Cognitive Ability: good Allergies and Drug intolerance: Allergies Allergen Reactions Bee Pollen Anaphylaxis Meperidine Hcl Anaphylaxis and Other (See Comments) flushing, respiratory trouble [place] Other (See Comments) Flu like sx Zoloft [Sertraline] Other (See Comments) Flu like sx Medication Reconciliation Discrepancies (compared to [facility] med list) -patient has missed 1 dose due to insurance being termed temporarily. Insurance has been reinstated, shipping medication out and patient will inject as soon as possible. Specialty Pharmacy Refill Questionnaire More data exists 04/03/2023 Refill Questionnaire What is the name of the specialty medication you are refilling? John Are you taking any new medications? No Any new medical condition? No Any new allergies? No Any missed doses since your last fill? 1-2 Any new side effects that are bothersome? No What date will you need this fill by? 04/05/2023 Adherence: Specialty Med Adherence Patient Demonstrates Understanding of Importance of Adherence: Yes Educational Information or Adherence Tools Provided: Yes How many doses does patient have remaining at home?: 0 Patient Reported X Missed Doses in the Last Month: 1 Other reason for missed dose: insurance temporarily termed-- resolved. If yes, why?: insurance Provider-Estimated Medication Adherence Level: 76-89% Adherence Tools Used: directed education Pt understands no changes to current drug regimen were made at the appointment and that [facility] is providing recommendations (summary located at top of note) for provider review and follow up. Blanca post RPH 04/03/23 3:56 PM documented in this encounter Plan of Treatment Upcoming Encounters Date Type Department Care Team (Late st Contact Info) Description 01/24/2024 3:40 PM EDT Office Visit Cardiology at [address] [address] Rangel Willams MD [facility] [place] [address] documented as of this encounter Visit Diagnoses Not on filedocumented in this encounter Care Teams Member Service Specialist Relationship Specialty Start Date End Date Alistair Ramos MD [address] [place] [address] [place] [address] PCP - General Family Medicine 02/16/22 documented as of this encounter
--- OUTSIDE RECORDS SUMMARY | 2023-12-27 19:43 | XMS_ITS | Encounter Summary ---
[place] [address] Care Team Providers Care Manager Style Name Role Phone Alistair Ramos MD Primary Care Provider [phone] Reason for Visit * Reason Comments Medication Management Specialty Refill Management Encounter Details Date Type Department Care Team (Late st Contact Info) Description 03/01/2023 Specialty [place] [phone] Navid Olivo RPH Social History Tobacco Use Types Packs/Day [...] as of this encounter Progress Notes * Navid Olivo RPH - 03/01/2023 10:59 AM EST Clinical Management Plan: Refill Specialty Pharmacy Consultation; Navid Olivo RPH Comprehensive Medication Management (CMM) Ghada Ervin Ms. Ghada Ervin is a 32 y.o. (1990) female who was contacted in regard to a specialty medication refill reminder. Contact made with patient regarding Taltz. A review of the medication therapy was [...] beneficiary Provider: pharmacist - other Visit Type: Misc Follow-up Time Spent: 1-15 min Method of Contact: by telephone Cognitive Ability: good Allergies and Drug intolerance: Allergies Allergen Reactions Bee Pollen Anaphylaxis Meperidine Hcl Anaphylaxis and Other (See Comments) flushing, respiratory trouble [place] Other (See Comments) Flu like sx Zoloft [Sertraline] Other (See Comments) Flu like sx Medication Reconciliation Discrepancies (compared to eD med list) -started Lexapro Specialty Pharmacy Refill Questionnaire More data exists 03/01/2023 Refill Questionnaire What is the name of the specialty medication you are refilling? nancytz Are you taking any new medications? Yes Please explain lexapro Any new medical condition? No Any new allergies? No Any missed doses since your last fill? 0 Any new side effects that are bothersome? No What date will you need this fill by? 03/08/2023 Adherence: Specialty Med Adherence Patient Demonstrates Understanding of Importance of Adherence: Yes Educational Information or Adherence Tools Provided: No How many doses does patient have remaining at home?: 0 Patient Reported X Missed Doses in the Last Month: 0 Provider-Estimated Medication Adherence Level: 90-100% Adherence Tools Used: directed education Pt understands no changes to current drug regimen were made at the appointment and that [facility] is providing recommendations (summary located at top of note) for provider review and follow up. Navid Olivo RPH 03/01/23 11:03 AM documented in this encounter Plan of Treatment Upcoming Encounters Date Type Department Care Team (Late st Contact Info) Description 01/24/2024 3:40 PM EDT Office Visit Cardiology at [address] [address] Rangel Willams MD [facility] [place] [address] documented as of this encounter Visit Diagnoses Not on filedocumented in this encounter Care Teams Manager Style Relationship Specialty Start Date End Date Alistair Ramos MD [facility] [place] [address] PCP - General Family Medicine 02/16/22 documented as of this encounter
--- OUTSIDE RECORDS SUMMARY | 2023-12-27 19:43 | XMS_ITS | Encounter Summary ---
Author Organization [facility] [place] [address] Care Team Providers Care Car Tracer Name Role Phone Alistair Ramos MD Primary Care Provider [phone] Reason for Visit * Reason Comments Specialty Pharmacy Review Encounter Details Date Type Department Care Team (Late st Contact Info) Description 02/28/2023 Specialty [place] [address] Jose Alejandro Moya, [facility] Social History Tobacco Use Types Packs/Day Years [...] Progress Notes * Jose Alejandro Moya - 02/28/2023 11:59 PM EST The [facility] has completed a benefits investigation for Ghada Ervin to review their eligibility to fill at [facility]. Per patient's medication list they are prescribed TALTZ AUTOINJECTOR 80 MG/ML and the medication is currently filled through the [facility]. documented in this encounter Plan of Treatment Upcoming Encounters Date Type Department Care Team (Late st Contact Info) Description 01/24/2024 3:40 PM EDT Office Visit Cardiology at [address] [address] Rangel Willams MD [facility] [place] [address] documented as of this encounter Visit Diagnoses Not on filedocumented in this encounter Care Teams Car Tracer Relationship Specialty Start Date End Date Alistair Ramos MD [place] [address] PCP - General Family Medicine 02/16/22 documented as of this encounter
--- OUTSIDE RECORDS SUMMARY | 2023-12-27 19:43 | XMS_ITS | Encounter Summary ---
[place] [address] Care Team Providers Care Kiln Burner Helper Name Role Phone Alistair Ramos MD Primary Care Provider [phone] Encounter Details Date Type Department Care Team (Late st Contact Info) Description 05/17/2023 Telephone Cardiology at [address] [phone] Bekah Mccrary RN Social History Tobacco Use Types Packs/Day Years [...] encounter Miscellaneous Notes * Telephone Encounter - Bekah Mccrary RN - 05/17/2023 2:31 PM EST I spoke with patient and relayed Flo's message. She expressed understanding. I removed Eliquis from her medication list. I let her know that the latest news on the PFO closure was that Flo is planning to talk to Dr. Sorensen about her case. -Bekah Mccrary RN * Telephone Encounter - Bekah Mccrary RN - 05/17/2023 2:23 PM EST ----- Message from RICCO Kerns sent at 05/17/2023 10:31 AM EST ----- Marcus Islas, can you call this patient and discuss next steps with her? Should be on aspirin and plavix,not apixaban.Tx flo documented in this encounter Plan of Treatment Upcoming Encounters Date Type Department Care Team (Late st Contact Info) Description 01/24/2024 3:40 PM EDT Office Visit Cardiology at [address] [phone] Rangel Willams MD [facility] [place] [address] documented as of this encounter Visit Diagnoses Not on filedocumented in this encounter Care Teams Kiln Burner Helper Relationship Specialty Start Date End Date Alistair Ramos MD [facility] [place] [phone] PCP - General Family Medicine 02/16/22 documented as of this encounter
--- OUTSIDE RECORDS SUMMARY | 2023-12-27 19:43 | XMS_ITS | Encounter Summary ---
[place] [address] Care Team Providers Care Glass Processing Worker Name Role Phone Alistair Ramos MD Primary Care Provider [phone] Reason for Visit * Reason Comments Specialty Refill Management Encounter Details Date Type Department Care Team (Late st Contact Info) Description 09/05/2023 Specialty Pharmacy Dermatology at [address] [phone] Isela Dhillon RPH Social History Tobacco Use Types Packs/Day [...] Progress Notes * Isela Dhillon RPH - 09/05/2023 3:00 PM EDT Clinical Management Plan: Refill Specialty Pharmacy Consultation; Isela Dhillon RPH Comprehensive Medication Management (CMM) Ghada Ervin Ms. Ghada Ervin is a 32 y.o. (1990) female who was contacted in regard to a specialty medication refill reminder. The patient requested a refill of Taltz. A review of the medication therapy was performed. The medication was refilled as scheduled, and all medication related questions and concerns were addressed. The specialty pharmacy staff will follow up with the patient 5-7 days priorto next refill. Was a change made to the Care Plan: no If yes, should the medication be held: No Assessment and Recommendations: Allergies and Drug intolerance: Allergies Allergen Reactions Bee Pollen Anaphylaxis Meperidine Hcl Anaphylaxis and Other (See Comments) flushing, respiratory trouble [place] Other (See Comments) Flu like sx Zoloft [Sertraline] Other (See Comments) Flu like sx Medication Reconciliation Discrepancies (compared to eDH med list) -none Specialty Pharmacy Refill Questionnaire More data exists 09/05/2023 Refill Questionnaire What is the name of the specialty medication you are refilling? Taltz Are you taking any new medications? No Any new medical condition? No Any new allergies? No Any missed doses since your last fill? 1-2 Any new side effects that are bothersome? No What date will you need this fill by? 09/13/2023 Adherence: Specialty Med Adherence Patient Demonstrates Understanding of Importance of Adherence: Yes Educational Information or Adherence Tools Provided: Yes How many doses does patient have remaining at home?: 0 Patient Reported X Missed Doses in the Last Month: 1 If >0, reason for missed doses: memory If yes, why?: memory Provider-Estimated Medication Adherence Level: 51-75% Adherence Tools Used: directed education Pt understands no changes to current drug regimen were made at the appointment and that [facility] is providing recommendations (summary located at top of note) for provider review and follow up. Isela Dhillon RPH 09/05/23 3:01 PM documented in this encounter Plan of Treatment Upcoming Encounters Date Type Department Care Team (Late st Contact Info) Description 01/24/2024 3:40 PM EDT Office Visit Cardiology at [address] [phone] Rangel Willams MD [facility] [place] [address] documented as of this encounter Visit Diagnoses Diagnosis Psoriasis Other psoriasis documented in this encounter Care Teams Glass Processing Worker Relationship Specialty Start Date End Date Alistair Ramos MD [address] [place] [address] PCP - General Family Medicine 02/16/22 documented as of this encounter
--- OUTSIDE RECORDS SUMMARY | 2023-12-27 19:43 | XMS_ITS | Encounter Summary ---
Author Organization [facility] [place] [address] Care Team Providers Care Carpenter Rough Name Role Phone Alistair Ramos MD Primary Care Provider [phone] Encounter Details Date Type Department Care Team (Late st Contact Info) Description 03/01/2023 Refill Dermatology at [address] [phone] Rudi Hope MD [facility] [address] [address] Psoriasis Social History Tobacco Use Types Packs/Day [...] 3:40 PM EDT Office Visit Cardiology at [address] [phone] Rangel Willams MD [facility] [place] [address] documented as of this encounter Visit Diagnoses Diagnosis Psoriasis Other psoriasis documented in this encounter Care Teams Carpenter Rough Relationship Specialty Start Date End Date Alistair Ramos MD [facility] [address] [facility] [place] [address] PCP - General Family Medicine 02/16/22 documented as of this encounter
--- OUTSIDE RECORDS SUMMARY | 2023-12-27 19:43 | XMS_ITS | Encounter Summary ---
[place] [address] Care Team Providers Care Software Educator Name Role Phone Alistair Ramos MD Primary Care Provider [phone] Reason for Visit * Reason Comments Medication Management Encounter Details Date Type Department Care Team (Late st Contact Info) Description 06/29/2023 Specialty Pharm[place] [address] Isela Dhillon RPH Social History Tobacco Use [...] Progress Notes * Isela Dhillon RPH - 06/29/2023 2:35 PM EST Clinical Management Plan: Refill Specialty [...] and Other (See Comments) flushing, respiratory trouble [place] Other (See Comments) Flu like sx Zoloft [Sertraline] Other (See Comments) Flu like sx Medication Reconciliation Discrepancies (compared to [facility] med list) No Specialty Pharmacy Refill Questionnaire More data exists 06/29/2023 Refill Questionnaire What is the name of the specialty medication you are refilling? Taltz Are you taking any new medications? No Any new medical condition? No Any new allergies? No Any new side effects that are bothersome? No Adherence: Any missed doses? No Patient understands no changes to current drug regimen were made. Isela Dhillon RPH 06/29/23 2:41 PM * Isela Dhillon RPH - 06/29/2023 2:35 PM EST Clinical Management Plan: Documentation of Clinical Response Specialty Pharmacy Consultation; Isela Dhillon RPH Comprehensive Medication Management (CMM) Ghada Watersley Ms. Ghada Ervin is a 32 y.o. (1990) female who was contacted by - Specialty Pharmacy to document clinical response for their specialty medication, Taltz. Summary: Appropriate Therapy: yes; Taltz 80mg/ml pens; Inject 80mg under the skin every 4 weeks Effective: She says her skin is doing great; she says it is clear aside from a spot on her back. She applies Aveeno and has not needed any steroid creams. She says she gets a patch every once in a while with the change in weather. Of note, she says her joints (hands, knees and feet) are painful and swelling. She hasn't noticed much improvement in her joints. Patient states she would like to continue therapy at this time as she sees good results in her skin. This information will be submitted to insurance to pursue medication approval. Isela Dhillon RPH 06/29/23 2:42 PM documented in this encounter Plan of Treatment Upcoming Encounters Date Type Department Care Team (Late st Contact Info) Description 01/24/2024 3:40 PM EDT Office Visit Cardiology at [address] [phone] Rangel Willams MD [facility] [place] [address] documented as of this encounter Visit Diagnoses Not on filedocumented in this encounter Care Teams Software Educator Relationship Specialty Start Date End Date Alistair Ramos MD [address] [place] [address] [place] [phone] PCP - General Family Medicine 02/16/22 documented as of this encounter
--- OUTSIDE RECORDS SUMMARY | 2023-12-27 19:43 | XMS_ITS | Encounter Summary ---
Author Organization [facility] [place] [address] Care Team Providers Care Map Editor Name Role Phone Alistair Ramos MD Primary Care Provider [phone] Encounter Details Date Type Department Care Team (Late st Contact Info) Description 04/25/2023 1:40 PM EST Office Visit Cardiology at [address] [phone] Michelle Gomez PA [facility] [address] Hypertension, unspecified type; PFO with atrial septal aneurysm Social History Tobacco Use Types Packs/Day Years [...] on file documented as of this encounter Last Filed Vital Signs Vital Sign Reading Time Taken Comments Blood Pressure 130/77 04/25/2023 1:37 PM EST Pulse 88 04/25/2023 1:37 PM EST Temperature - - Respiratory Rate - - Oxygen Saturation 97% 04/25/2023 1:37 PM EST Inhaled Oxygen Concentration - - Weight 113.6 kg (250 lb 8 oz) 04/25/2023 1:37 PM EST Height 157.5 cm (5' 2) 04/25/2023 1:37 PM EST Body Mass Index 45.82 04/25/2023 1:37 PM EST documented in this encounter Progress Notes * Michelle Gomez PA - 04/25/2023 1:40 PM EST Images from the original note were not included. [place] [address] CARDIOLOGY OUTPATIENT CLINIC VISIT [facility] Ghada Ervin 04/25/2023 Referring Providers: MD Richard Carlin John, MD [address] [place] [address] CHIEF COMPLAINT: I'd like to reconsider PFO Closure CARDIAC-RELEVANT PROBLEM LIST: PFO with ASA TTE 09/06/2018 1. The left ventricle is mildly dilated.(EDV 69 ml/m2). Left ventricular wall thickness is normal. Global left ventricular systolic function is mildly reduced. Ejection fraction is estimated to be 45%. There is diffuse hypokinesis present. 2. The left atrium is mildly dilated. A patent foramen ovale is demonstrated by agitated saline injection. 3. Right ventricular chamber size, wall thickness, and systolic function are within normal limits. 4. The cardiac valves appear structurally and functionally normal. SIOBHAN ASA with 'large' shunt 1. There is an aneurysmal inter-atrial septum present with a PFO noted by both color and agitated saline injections. 2. Global left ventricular systolic function is mildly reduced. Ejection fraction is estimated to be 50%. There is diffuse hypokinesi present. 3. The right ventricle is normal in size. Right ventricular globalsystolic function is normal. Right paraclinoid aneurysm coiled 2014 [place] Occular field defect S/P Coiling S/P Stroke Walks with cane Continues with visual loss Hep C, cured (finished medication a couple of months ago, labs were clear on most recent testing) IVDA reports being clean x 3-4 years, now on methadone (70 mg a day, gets a week at a time from [facility]) Chronic pain Fibromyalgia ADD, has been on vyvanse but is currently off Migraine Scoliosis SVT, [place] 6-7 [place] [facility]bar spondylosis, s/p back surgery, prescribed pain medication c/b addiction Cigarette use, down to a few cigarettes a day, planning to quit next month Long QT due to Methadone, now resolved with dose reduction Psoriatic Arthritis HISTORY OF PRESENT ILLNESS: Ghada Ervin is a 32 y.o. female patient presenting for an outpatient cardiology visit. Ghada is a pleasant 32-year-old lady who is here for reevaluation of PFO Closure. She has a medical history of fibromylagia, cured Hep C, scoliosis, chronic back pain s/p thoracic fusion and flower robbecca (2007) c/b opioid dependence/narcotic addiction c/b IVDU for many years (clean since last3-4 years, now on methadone 70 mg daily), migraine, petit mal seizures as a child, renal calculi, reentrant SVT s/p ablation with Roberto Suresh MD in 2014, anxiety, depression, recent psoriatic arthritis diagnosis (by Dr Ibarra at [facility]), ADHD (has been off vyvanse for 8 months now), s/p tubal [id number] (has three children, 2 are twins), PFO found on echo imaging prior too , GERD, 6- 7mm R ophthalmic artery aneurysm 2014 presenting as a headache/dizziness/diplopia s/p stage I neuroform stent placement for R paraophthalmic artery aneurysm with Dr Bass 04/2015 and stage II coil emboliza tion of R paraclinoid aneurysm , L ICA aneurysm stenting 2018 s/p cerebral infarcts 2018 admitted to [facility] [place] wee and underwent SIOBHAN showing PFO with color and saline injection with EF 50%, and subsequent infarcts in 2020 and 2021. She was evaluate for PFO closure back in [address] Willams.At the time, she was deemed to be high risk for PFO Closure due to prior IVDU and concern for implant endocarditis. Since this time, she has been on aspirin and plavix more recently. Reports that shehas not used IVDU or other narcotics in the past 3 years since being on methadone and would like toprovide her methadone clinic records. She is here with her mother, Deidre, who seems very supportive of her care. She is interested in repursuing PFO closure if possible. She also is wondering if she is able to go back on vyvanse. Her psychiatrist left 8 months ago and she has been without her ADHD medication since this time. She finds it hard to function doing certain tasks without it. She states her PCP is willing to prescribe if cardiology is willing to clear her for re initiation of vyvanse. BP has been generally under control. She does not take her BP at home as she cannot afford a BP cuff. She was previously on aspirin and palvix. Today, she thinks she was taken off the plavix and placedon eliquis and believes she has been on eliquis for 3 months. She is going to get her records from the pharmacist and provide them to us. She does not know if she has a documnated h/o of atrial fibrillation, but thinks she was prescribed eliquis BID at 2.5 mg. She has cut back on cigarettes and is down to a few cigarettes a day and is planning on quitting next month. She is going to follow up with neurology. She has some mild symptoms of chest pain and tingling under her left rib cage. It is atypical in nature and can happen randomly and at rest. She has some mild SOB. She recently had what she thinks isan episode of SVT which went away when she performed a valsalva. Last note by Dr Lopes 07/2021: In Dec 2020 she presented with facial droop numbness and weakness of the left side. She was not taking aspirin nor Plavix at that time. She underwent a thorough evaluation consisting of a CT scan and brain MRI, and evaluation by her neurologist Dr. Grimes and Dr. Fierro. MRI per Dr. Grimes showed areas of infarction which was subacute and unchanged. Her CT scan and brain MRI images were evaluated by Dr. Fierro. It was felt there were subacute infarcts, unchanged. An outpatient follow-up was arranged with neurology. Aspirin and Plavix were restarted. She was successfully discharged. She hassignificant risk factors of hypertension, smoking as well as IVDA currently on methadone. She was also evaluated for PFO closure 3 years ago, at that time it was felt that these were embolic strokes likely from the prior coiling. Aspirin and Plavix compliance was strongly recommended. Today she feels she has largely recovered. Her numbness has resolved. Her facial droop has also resolved. Her weakness on the left side is also back at baseline. Of note, this is similar to her 2018 stroke syndrome where all MRI findings were ipsilateral to calling and that episode also occurred when patient was off of all antiplatelet agents. August 2017 Stroke Syndrome (From Admit Note) This is a 27 y.o. F with h/o prior R aneurysm sp coiling in 2014, remote IVDU who is admitted for worsening CUADRA x6 mo, found with new multifocal infarcts over R cerebral hemisphere involving R parietal, posterior frontal and R occipitial lobe. [place] All MRI Findings are ipsilateral to coiling Most recent episode occurred with patient off all anti-platelet agents Social History High School: [employer]: 20 credits towards associate degree Technically Homeless Kids 3 boys 6, 4 (twins) living with there father On Methadone (I am recovering... Now clean for 18 months) DCF has custody of kids Cigarettes 5-10/day Review of systems: Please see the HPI for pertinent positives and negatives. The remainder of the ROS was reviewed and is negative. PAST MEDICAL HISTORY: has a past medical history of ADD (attention deficit disorder) (09/18/2014), Back pain, Chronic pain syndrome (01/15/2014), Depression, Fibromyalgia (01/15/2014), Heart palpitations (01/15/2014), Kidney stones, Migraines (01/15/2014), Patient non adherence, Scoliosis (09/18/2014), and Seizures. PAST SURGICAL HISTORY: Past Surgical History: Procedure Laterality Date ABLATION OF DYSRHYTHMIC FOCUS AV node, SVT BACK SURGERY Tejeda rods CREATED BY INTERFACE ARTHRODESIS, POSTERIOR , SPINAL DEFORMITY,7-12 SEGMENTS / LEG/T10/T11/T12/T3/T4/T5/T6/T7/T8/T9 Procedure Date: 06/19/2007 CREATED BY INTERFACE AUTOGRAFT FOR SPINE,LOCAL,SAME INCISION Procedure Date: 06/19/2007 CREATED BY INTERFACE Entered not Verified Procedure Date: 04/22/2010 CREATED BY INTERFACE POSTERIOR SEGMENTAL INSTRUMENTATION; 7-12 VERTEBRAL SEG. / T10/T11/T12/T3/T4/T5/T6/T7/T8/T9 Procedure Date: 06/19/2007 IR ARTERIOGRAM CEREBRAL 10/31/2018 IR Arteriogram Cerebral 10/31/2018 Ayaan Castro MD [facility] INTERVENTIONL RAD IR ARTERIOGRAM CEREBRAL 05/08/2020 IR Arteriogram Cerebral 05/08/2020 Ayaan Castro MD [facility] INTERVENTIONL RAD IR EMBOLIZATION INTRACRANIAL 01/21/2019 IR Embolization Intracranial 01/21/2019 Ayaan Castro MD [facility] INTERVENTIONL RAD LITHOTRIPSY kidney stones PRG SIOBHAN REAL TIME IMG 2D W PRB IMG ACQUIS I&R N/A 09/12/2018 TRANSESOPHAGEAL ECHOCARDIOGRAM (WRVU 2.55) performed by Ze Freeman MD at [facility] MAIN OR PRO PERM OCCLUSION/EMBOLIZATION, PERCUT, MEDIA LAW FACULTY MEMBER N/A 01/21/2019 @TRANSCATHETER OCCLUSION/EMBOLIZATION FOR TUMOR DESTRUCTION performed by Ayaan Castro MD at [facility] JASMEET TUBAL LIGATION SOCIAL HISTORY: reports that she has been smoking cigarettes. She has a 4.00 pack-year smoking history. She has never used smokeless tobacco. She reports that she does not currently use alcohol. She reports current drug use. Frequency: 2.00 times per week. Drug: Marijuana. FAMILY HISTORY: Father: at age 52 from [place] (LAD) Uncle: at age 53 from [place] Aunt: at age 33 from brain aneurysm Aunt: alive but being monitored for brain aneurysm MEDICATIONS: Current Outpatient Medications Medication Sig Dispense Refill escitalopram (Lexapro) 10 mg tablet Take 10 mg by mouth daily. ixekizumab (Taltz Autoinjector, 2 Pack,) 80 mg/mL Auto-Injector Inject the contents of one autoinjector (80 mg) under the skin once on weeks 4, 6, 8, 10, 12 and once every 4 weeks thereafter 2 mL 1 OLANZapine (ZyPREXA) 15 mg Tablet Take 15 mg by mouth daily. pregabalin (LYRICA) 150 [...] tablet by mouth daily. 90 tablet 2 EPINEPHrine 0.3 mg/0.3 mL Auto-Injector INJECT INTO THE MUSCLE ONCE DIRECTED NEEDED 0 naproxen sodium (ANAPROX) 550 mg Tablet Take 1 tablet by mouth 3 times daily as needed (Use in combination with Hydroxyzine for migraine ). 60 tablet 3 lisinopril (PRINIVIL;ZESTRIL) 5 mg Tablet Take 1 tablet by mouth daily. 90 tablet 3 metoprolol succinate (TOPROL-XL) 25 mg Tablet Sustained Release 24 hr Take 2 tablets by mouth daily. 30 tablet 3 docusate sodium (COLACE) 100 mg Capsule TAKE ONE CAPSULE BY MOUTH TWICE A DAY 1 acetaminophen (TYLENOL) 325 mg Tablet Take 2 tablets by mouth every 4 hours as needed for Pain (mild pain). 30 tablet 1 ixekizumab (Taltz Autoinjector) 80 mg/mL Auto-Injector Inject [...] every 4 weeks thereafter 3 mL 0 fluocinolone (DERMA-SMOOTHE) 0.01 % Oil Apply a [...] taking: Reported on 04/25/2023) 120 mL 2 hydrOXYchloroQUINE (Plaquenil) 200 mg Tablet Take 200 mg by mouth daily. Vyvanse 40 mg Capsule Take 40 mg by mouth daily. pregabalin (LYRICA) 75 mg Capsule 2 times daily. Miscellaneous Medical Supply [facility] Measure blood pressure daily. Record pressure (Patient not taking: Reported on 04/25/2023) 1 each 0 ondansetron (ZOFRAN) 4 mg Tablet Take 1 [...] PROAIR HFA 90 mcg/actuation HFA Aerosol Inhaler FLOVENT HFA 220 mcg/actuation HFA Aerosol Inhaler No current facility-administered medications for this visit. ALLERGIES: Reviewed and updated as appropriate in the medical record: Bee pollen, Meperidine hcl, [place], and Zoloft [sertraline] PHYSICAL EXAMINATION: Vitals: Patient Vitals for the past 24 hrs: Pulse BP SpO2 04/25/23 1337 88 130/77 97 % Constitutional: Normal general appearance, no distress HEENT: PERRL, EOMI; dentition unremarkable Respiratory: CTAB, no wheezes, rales Cardiovascular: Normal S1S2, no murmurs, rubs or gallops Vessels: Normal jugular venous pressure; palpable pulses in all extremities Extremities: No clubbing; no edema Musculoskeletal: No significant kyphosis; no difficulty in ambulating across the room and stepping up to exam table Skin: No cyanosis, no open sores Neurologic: Alert, oriented to person, place and time Psychiatric: Normal mood and affect; no barriers to learning identified TESTING: I have reviewed the pertinent outside records, laboratory data, and imaging studies. LABS: No results for input(s): WBC, HGB, HCT, PLATELET, NA, K, BUN, CREATININE, HA1C, ALT, CHLPL, INR in the last 720 hours. Lab Results Component Value Date CHLPL 130 09/06/2018 HDL 36 09/06/2018 CHOLHDL 3.6 09/06/2018 TRIG 173 09/06/2018 LDLCHOL 59 09/06/2018 LDLDIRECT 70 09/06/2018 Lab Results Component Value Date WBC 9.7 (H) 03/23/2022 HGB 11.8 03/23/2022 HCT 37.9 03/23/2022 MCV 83.7 03/23/2022 PLATELET 289 03/23/2022 Lab Results Component Value Date NA 136 03/23/2022 K 4.1 03/23/2022 CL 99 03/23/2022 CO2 27 03/23/2022 BUN 15 03/23/2022 CREATININE 0.77 03/23/2022 GLUCOSE 154 03/23/2022 GLUCFASTING 108 (H) 09/06/2018 CALCIUM 8.8 03/23/2022 ESTGFR 105 03/23/2022 Lab Results Component Value Date ALT 13 03/23/2022 AST 13 03/23/2022 ALKPHOS 137 (H) 03/23/2022 BILITOT <0.2 (L) 03/23/2022 BILIDIR 0.1 09/07/2018 ALBUMIN 3.8 03/23/2022 PROT 7.7 03/23/2022 2. SIOBHAN 09/12/2018 1. There is an aneurysmal inter-atrial septum present with a PFO noted by both color and agitated saline injections. 2. Global left ventricular systolic function is mildly reduced. Ejection fraction is estimated to be 50%. There is diffuse hypokinesis present. 3. The right ventricle is normal in size. Right ventricular global systolic function is normal. ASSESSMENT/PLAN: Ghada is a pleasant 32-year-old lady who is here for reevaluation of PFO Closure. She has a medical history of fibromylagia, cured Hep C, scoliosis, chronic back pain s/p thoracic fusion and flower hartmann (2008) c/b opioid dependence/narcotic addiction c/b IVDU for many years (clean since last3-4 years, now on methadone 70 mg daily), migraine, petit mal seizures as a child, renal calculi, reentrant SVT s/p ablation with Roberto Suresh MD in 2014, anxiety, depression, recent psoriatic arthritis diagnosis (by Dr Ibarra at [facility]), ADHD (has been off vyvanse for 8 months now), s/p tubal [id number] (has three children, 2 are twins), PFO found on echo imaging prior too , GERD, 6- 7mm R ophthalmic artery aneurysm 2014 presenting as a headache/dizziness/diplopia s/p stage I neuroform stent placement for R paraophthalmic artery aneurysm with Dr Bass 04/2015 and stage II coil emboliza tion of R paraclinoid aneurysm , L ICA aneurysm stenting 2018 s/p cerebral infarcts 2019 [place] [facility] [place]e and underwent SIOBHAN showing PFO with color and saline injection with EF 50%, and subsequent infarcts in 2020 and 2021. She was evaluate for PFO closure back in [address] Willams.At the time, she was deemed to be high risk for PFO Closure due to prior IVDU and concern for implant endocarditis. Reports that she has not used IVDU or other narcotics in the past 3 years since being on methadone and would like to provide her methadone clinic records. We reviewed the imaging together and prior notes from both neurology and cardiology. There are several notes indicating that the etiology of some of her prior infarcts may be embolic from aneurysm coiling. However, she is concerned that the PFO may be a source of some of these events as well. We discussed that any current IVDU would put her at high risk for implant infective endocarditis and she assures me that she has been off IVDU for > 3 years and on methadone daily at 70 mg po qd. I toldher that I will discuss her case with Dr Sorensen, the structural heart attending. In the meantime, she continues on aspirin and eliquis and tells me she has been off plavix. She is not 100% sure but will reach out to her pharmacy for a current medication list and provide it back to us. We may consider repeating a TTE and SIOBHAN since her imaging is about 4 years ago. She is also planning to follow up with neurology. I have reached out to her PCP to discuss vyvanse. At this time, I would hold on reinitiation of vyvanse due to high risk for stroke. Thank you for the opportunity to take care of Ghada Ervin. Sincerely, [facility] CC: Alistair Ramos MD documented in this encounter Plan of Treatment Upcoming Encounters Date Type Department Care Team (Late st Contact Info) Description 01/24/2024 3:40 PM EDT Office Visit Cardiology at [address] [phone] Rangel Willams MD [facility] [place] [address] documented as of this encounter Visit Diagnoses Diagnosis Hypertension, unspecified type PFO with atrial septal aneurysm Ostium secundum type atrial septal defect documented in this encounter Care Teams Map Editor Relationship Specialty Start Date End Date Alistair Ramos MD [address] [place] [address] PCP - General Family Medicine 02/16/22 documented as of this encounter
--- OUTSIDE RECORDS SUMMARY | 2023-12-27 19:43 | XMS_ITS | Encounter Summary ---
Author Organization [facility] [place] [address] Care Team Providers Care Risk Intern Name Role Phone Alistair Ramos MD Primary Care Provider [phone] Reason for Visit * Reason Comments Specialty Pharmacy Review Encounter Details Date Type Department Care Team (Late st Contact Info) Description 01/23/2023 Specialty Pharm[place] [address] Jose Alejandro Moya, [facility] Social History Tobacco Use Types Packs/Day [...] Progress Notes * Jose Alejandro Moya - 01/23/2023 11:59 PM EDT The [facility] has completed a benefits investigation for Ghada Ervin to review their eligibility to fill at [facility]. Per patient's medication list they are prescribed TALTZ AUTOINJECTOR 80 MG/ML and the medication is currently filled through the [facility]. documented in this encounter Plan of Treatment Upcoming Encounters Date Type Department Care Team (Late st Contact Info) Description 01/24/2024 3:40 PM EDT Office Visit Cardiology at [address] [address] Rangel Willams MD [facility] [place] [address] documented as of this encounter Visit Diagnoses Not on filedocumented in this encounter Care Teams Risk Intern Relationship Specialty Start Date End Date Alistair Ramos MD [address] [place] [address] PCP - General Family Medicine 02/16/22 documented as of this encounter
--- OUTSIDE RECORDS SUMMARY | 2023-12-27 19:43 | XMS_ITS | Encounter Summary ---
[place] [address] Care Team Providers Care Hyperbaric Tech Name Role Phone Alistair Ramos MD Primary Care Provider [phone] Encounter Details Date Type Department Care Team (Late st Contact Info) Description 10/27/2022 Specialty [place] [address] Sandra Hebert, CNC SET UP OPERATOR Social History Tobacco Use Types Packs/Day Years [...] as of this encounter Progress Notes * Sandra Hebert - 10/27/2022 10:28 AM EDT Clinical Management Plan: Refill Specialty Pharmacy Consultation; Sandra Hebert Comprehensive Medication Management (CMM) Ghada Charli Ervin Ms. Ghada Ervin is a 31 [...] and Other (See Comments) flushing, respiratory trouble [place] Other (See Comments) Flu like sx Zoloft [Sertraline] Other (See Comments) Flu like sx Medication Reconciliation Discrepancies (compared to [facility] med list) No Specialty Pharmacy Refill Questionnaire More data exists 10/27/2022 Refill Questionnaire What is the name of the specialty medication you are refilling? John Are you taking any new medications? No Any new medical condition? No Any new allergies? No Any new side effects that are bothersome? No What date will you need this fill by? 11/09/2022 Adherence: Any missed doses? No Patient understands no changes to current drug regimen were made. Sandra Hebert 10/27/22 10:29 AM documented in this encounter Plan of Treatment Upcoming Encounters Date Type Department Care Team (Late st Contact Info) Description 01/24/2024 3:40 PM EDT Office Visit Cardiology at [address] [phone] Rangel Willams MD [facility] [place] [address] documented as of this encounter Visit Diagnoses Not on filedocumented in this encounter Care Teams Hyperbaric Tech Relationship Specialty Start Date End Date Alistair Ramos MD [facility] [place] [address] PCP - General Family Medicine 02/16/22 documented as of this encounter
--- OUTSIDE RECORDS SUMMARY | 2023-12-27 19:43 | XMS_ITS | Encounter Summary ---
Author Organization [facility] [place] [place] [address] Care Team Providers Care Formwork Carpenter Name Role Phone Alistair Ramos MD Primary Care Provider [phone] Encounter Details Date Type Department Care Team (Late st Contact Info) Description 08/24/2022 6:55 PM EDT Ancillary Procedure [place] [address] Johnnie Cordova MD [facility] [place] [address] Social History Tobacco Use Types Packs/Day Years [...] 3:40 PM EDT Office Visit Cardiology at [address] [phone] Rangel Willams MD [facility] CARDIOLOGY [place], [place] [id number] documented as of this encounter Procedures Procedure Name Priority Date/Time Associated Diagnosis Comments FILM LIBRARY STORAGE ONLY DX CHEST Routine 08/24/2022 6:52 PM EDT documented in this encounter Results * Film Library- Storage Only DX Chest (08/24/2022 6:52 PM EDT) Narrative TARI - 08/24/2022 6:52 PM EDT This exam is auto-finalizing. It's purpose is for storage only. Johnnie Cordova MD IMG FILM LIBRARY ORD ERABLES [place], [place] documented in this encounter Visit Diagnoses Not on filedocumented in this encounter Care Teams Formwork Carpenter Relationship Specialty Start Date End Date Alistair Ramos MD [address] [place] [phone] PCP - General Family Medicine 02/16/22 documented as of this encounter
--- OUTSIDE RECORDS SUMMARY | 2023-12-27 19:43 | XMS_ITS | Encounter Summary ---
[place] [address] Care Team Providers Care Short Range Air Defense Artillery Name Role Phone Alistair Ramos MD Primary Care Provider [phone] Encounter Details Date Type Department Care Team (Late st Contact Info) Description 12/28/2022 Specialty [place] [address] Tucker Barnard, [facility] Social History Tobacco Use Types Packs/Day [...] encounter Progress Notes * Tucker Barnard - 12/28/2022 10:51 AM EDT Clinical Management Plan: Refill Specialty Pharmacy Consultation; Tucker Barnard Comprehensive Medication Management (CMM) Ghada Charli Ervin Ms. Ghada Ervin is a 32 [...] and Other (See Comments) flushing, respiratory trouble [place] Other (See Comments) Flu like sx Zoloft [Sertraline] Other (See Comments) Flu like sx Medication Reconciliation Discrepancies (compared to [facility] med list) No Specialty Pharmacy Refill Questionnaire More data exists 12/28/2022 Refill Questionnaire What is the name of the specialty medication you are refilling? John Are you taking any new medications? No Any new allergies? No Any new side effects that are bothersome? No What date will you need this fill by? 01/02/2023 Adherence: Any missed doses? No Patient understands no changes to current drug regimen were made. Tucker Barnard 12/28/22 10:52 AM documented in this encounter Plan of Treatment Upcoming Encounters Date Type Department Care Team (Late st Contact Info) Description 01/24/2024 3:40 PM EDT Office Visit Cardiology at [address] [address] Rangel Willams MD [facility] [place] [address] documented as of this encounter Visit Diagnoses Not on filedocumented in this encounter Care Teams Short Range Air Defense Artillery Relationship Specialty Start Date End Date Alistair Ramos MD [facility] [place] [address] PCP - General Family Medicine 02/16/22 documented as of this encounter
--- OUTSIDE RECORDS SUMMARY | 2023-12-27 19:43 | XMS_ITS | Encounter Summary ---
[place] [address] Care Team Providers Care Lead Manufacturing Engineering Tech Name Role Phone Alistair Ramos MD Primary Care Provider [phone] Reason for Referral * Consultation (Routine) - Closed Specialty Diagnoses / Procedures Referred By Lang sanches Referred To Contact Bariatrics Diagnoses Morbid obesity Alistair Ramos MD [address] [place] [address] [facility] Gen Surgery [address] [place] [phone] Referral ID Status Reason Start Date Expiration Date V isits Requested Visits Authorized [id number] Closed Consult, Test & Treat PCP Updated and/or Approved 12/21/2022 12/21/2023 6 6 Encounter Details Date Type Department Care Team (Late st Contact Info) Description 12/21/2022 Transcribe Orders eDH Incoming Referrals [phone] Alistair Ramos MD [address] [place] [address] Morbid obesity Social History Tobacco Use Types Packs/Day Years [...] 3:40 PM EDT Office Visit Cardiology at [address] [address] Rangel Willams MD [facility] [place] [address] Scheduled Referrals Name Type Priority Associated Diagnoses Orde r Schedule Referral to Bariatric Surgery Program Outpatient Referral Routine Morbid obesity Ordered: 12/21/2022 documented as of this encounter Visit Diagnoses Diagnosis Morbid obesity documented in this encounter Care Teams Lead Manufacturing Engineering Tech Relationship Specialty Start Date End Date Alistair Ramos MD [facility] [place] [address] PCP - General Family Medicine 02/16/22 documented as of this encounter
--- OUTSIDE RECORDS SUMMARY | 2023-12-27 19:43 | XMS_ITS | Encounter Summary ---
[place] [address] Care Team Providers Care Lube Technician Name Role Phone Alistair Ramos MD Primary Care Provider [phone] Reason for Visit * Reason Comments Specialty Refill Management Encounter Details Date Type Department Care Team (Late st Contact Info) Description 05/18/2023 Specialty [place] [address] Isela Dhillon RPH Social History Tobacco Use [...] Progress Notes * Isela Dhillon RPH - 05/18/2023 3:11 PM EST Clinical Management Plan: Refill Specialty [...] and Other (See Comments) flushing, respiratory trouble [place] Other (See Comments) Flu like sx Zoloft [Sertraline] Other (See Comments) Flu like sx Medication Reconciliation Discrepancies (compared to eD med list) No Specialty Pharmacy Refill Questionnaire More data exists 05/18/2023 Refill Questionnaire What is the name of the specialty medication you are refilling? Taltz Are you taking any new medications? No Any new medical condition? No Any new allergies? No Any new side effects that are bothersome? No What date will you need this fill by? 05/24/2023 Adherence: Any missed doses? No Patient understands no changes to current drug regimen were made. Isela Dhillon RPH 05/18/23 3:12 PM documented in this encounter Plan of Treatment Upcoming Encounters Date Type Department Care Team (Late st Contact Info) Description 01/24/2024 3:40 PM EDT Office Visit Cardiology at [address] [address] Rangel Willams MD [facility] [place] [address] documented as of this encounter Visit Diagnoses Not on filedocumented in this encounter Care Teams Lube Technician Relationship Specialty Start Date End Date Alistair Ramos MD [address] [place] [address] PCP - General Family Medicine 02/16/22 documented as of this encounter
--- OUTSIDE RECORDS SUMMARY | 2023-12-27 19:43 | XMS_ITS | Encounter Summary ---
Author Organization [facility] [place] [address] Care Team Providers Care Dyed Raw Stock Blower Feeder Name Role Phone Alistair Ramos MD Primary Care Provider [phone] Encounter Details Date Type Department Care Team (Late st Contact Info) Description 08/24/2022 7:00 PM EDT Ancillary Procedure [place] [address] Johnnie Cordova MD [facility] [place] [address] Social History Tobacco Use Types Packs/Day Years [...] 3:40 PM EDT Office Visit Cardiology at [address] [address] Rangel Willams MD [facility] CARDIOLOGY [place], [place] [id number] documented as of this encounter Procedures Procedure [...] Cordova MD IMG FILM LIBRARY ORD ERABLES [place], [place] documented in this encounter Visit Diagnoses Not on filedocumented in this encounter Care Teams Dyed Raw Stock Blower Feeder Relationship Specialty Start Date End Date Alistair Ramos MD [address] [place] [address] PCP - General Family Medicine 02/16/22 documented as of this encounter
--- OUTSIDE RECORDS SUMMARY | 2023-12-27 19:43 | XMS_ITS | Encounter Summary ---
[place] [address] Care Team Providers Care Project Architect Name Role Phone Alistair Ramos MD Primary Care Provider Reason for Visit * Reason Comments Medication Refill Encounter Details Date Type Department Care Team (Late st Contact Info) Description 02/02/2023 Specialty [place] [address] Jose Alejandro Moya, [facility] Social History Tobacco Use Types Packs/Day [...] Progress Notes * Jose Alejandro Moya - 02/02/2023 4:02 PM EDT Clinical Management Plan: Refill Specialty Pharmacy Consultation; Jose Alejandro Moya Comprehensive Medication Management (CMM) Ghada Charli Ervin [...] and Other (See Comments) flushing, respiratory trouble [place] Other (See Comments) Flu like sx Zoloft [Sertraline] Other (See Comments) Flu like sx Medication Reconciliation Discrepancies (compared to [facility] med list) No Specialty Pharmacy Refill Questionnaire More data exists 02/02/2023 Refill Questionnaire What is the name of the specialty medication you are refilling? Taltz 80mg/mL SOAJ Are you taking any new medications? No Any new medical condition? No Any new allergies? No Any new side effects that are bothersome? No What date will you need this fill by? 02/08/2023 Adherence: Any missed doses? No Patient understands no changes to current drug regimen were made. Jose Alejandro Moya 02/02/23 4:03 PM documented in this encounter Plan of Treatment Upcoming Encounters Date Type Department Care Team (Late st Contact Info) Description 01/24/2024 3:40 PM EDT Office Visit Cardiology at [address] [address] Rangel Willams MD [facility] [address] documented as of this encounter Visit Diagnoses Not on filedocumented in this encounter Care Teams Project Architect Relationship Specialty Start Date End Date Alistair Ramos MD [facility] [place] [address] PCP - General Family Medicine 02/16/22 documented as of this encounter
--- OUTSIDE RECORDS SUMMARY | 2023-12-27 19:43 | XMS_ITS | Encounter Summary ---
[place] [address] Care Team Providers Care Bow Rehairer Name Role Phone Alistair Ramos MD Primary Care Provider [phone] Reason for Referral * Consultation (Routine) - Closed Specialty Diagnoses / Procedures Referred By Lang sanches Referred To Contact Endocrinology Diagnoses Secondary amenorrhea Alistair Ramos MD [address] [place] [address] [facility] Endocrinology [address] [place] [phone] Referral ID Status Reason Start Date Expiration Date V isits Requested Visits Authorized [id number] Closed Consult, Test & Treat PCP Updated and/or Approved 02/15/2023 08/14/2023 6 6 Encounter Details Date Type Department Care Team (Latest Contact Info) Description 02/24/2023 Transcribe Orders eDH Incoming Referrals [phone] Alistair Ramos MD [address] [place] [address] Secondary amenorrhea Social History Tobacco Use Types Packs/Day Years [...] PM EDT Office Visit Cardiology at [address] [address] Rangel Willams MD [facility] [place] [address] Scheduled Referrals Name Type Priority Associated Diagnoses Order Schedule Referral to Endocrinology Outpatient Referral Routine Secondary amenorrhea Ordered: 02/24/2023 documented as of this encounter Visit Diagnoses Diagnosis Secondary amenorrhea Absence of menstruation documented in this encounter Care Teams Bow Rehairer Relationship Specialty Start Date End Date Alistair Ramos MD [facility] [place] [address] PCP - General Family Medicine 02/16/22 documented as of this encounter
--- OUTSIDE RECORDS SUMMARY | 2023-12-27 19:43 | XMS_ITS | Encounter Summary ---
[place] [address] Care Team Providers Care Float Builder Name Role Phone Alistair Ramos MD Primary Care Provider [phone] Reason for Visit * Reason Comments Medication Management Medication Refill Encounter Details Date Type Department Care Team (Late st Contact Info) Description 12/06/2022 Specialty Pharmacy [place] [address] Eugenio Vazquez RPH Social History Tobacco Use [...] Progress Notes * Eugenio Vazquez RPH - 12/06/2022 9:36 AM EDT Specialty Pharmacy Consultation; Eugenio Vazquez RPH Comprehensive Medication Management (CMM): Specialty Consult, Opt Out Ghada Charli Arcadio Diagnosis: Psoriasis Therapy Start Date: 05/18/2022 Contact in person or via telephone: Phone Ms. Ghada Ervin is a 32 y.o. (1990) female who was contacted in regard to specialty medication. Spoke with patient regarding taltz. A review of the medication therapy was performed. The medication was refilled as scheduled, and all medication related questions and concerns were addressed. The specialty pharmacy staff will follow up with the patient 5 - 7 days prior to next refill. Is the patient willing to proceed with the Clinical Assessment? No Summary and Recommendations: Today I spoke with Ghada Ervin who was due for a refill on taltz as well as a routine clinicafollow up consultation. The medication was refilled but patient declined to participate in the fullconsultation. She said that there haven't been any changes in allergies, medications, or medical conditions since the last fill. The patient also did not miss any doses or have any side effects. The patient had no questions or concerns at this time and we encouraged her to reach out to us with any questions or concerns, our contact information was provided. We will continue to follow up with the patient monthly for refills and biannually for consults. Economic Assessment: Patient is agreeable to medication copay: Yes Copay Amount: $0 Day Supply: 28 Date Needed: 12/07/22 Therapy Assessment: Appropriate Therapy: Yes Current Medication Dosing/Route/Frequency: Taltz 80mg subq every 28 days Additional equipment/supplies required: no Care Plan Reviewed and Approved by Pharmacist : Yes Problem List: Patient Active Problem List Diagnosis Code Heart palpitations R00.2 Chronic pain syndrome G89.4 Fibromyalgia M79.7 Migraines G43.909 ADD (attention deficit disorder) F98.8 Scoliosis M41.9 SVT (supraventricular tachycardia) I47.1 Encounter for long-term (current) use of other [...] 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, 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 Medications Reviewed: Yes Medications reconciled: Yes Allergies Reviewed:Yes Allergies reconciled: Yes Pharmacist follow-up needed: Yes Informed patient of specialty pharmacy services: Yes (Optional) Patient unenrolls from routine specialty pharmacy services (Y/N): (Optional) If yes, services unenrolled from: Welcome Packet and Rights and Responsibilities: Patient provided welcome packet/rights and responsibilities: Yes Date Confirmed: 06/08/22 Confirmation: Verbal -Patient is aware a licensed pharmacist is available 24 hours a day, 7 days a week to discuss medication-related questions or concerns: Yes -Patient verbalizes understanding of the common side effect profile of their medication. The patient is able to call 911 or seek urgent care if signs/symptoms of allergy or harmful adverse reactions occur: Yes Patient understands no changes to current drug regimen were made at the appointment and that the pharmacist is providing recommendations (summary located at top of note) for provider review and follow up. Eugenio Vazquez RPH 12/06/22 9:39 AM documented in this encounter Plan of Treatment Upcoming Encounters Date Type Department Care Team (Late st Contact Info) Description 01/24/2024 3:40 PM EDT Office Visit Cardiology at [address] [address] Rangel Willams MD [facility] [place] [address] documented as of this encounter Visit Diagnoses Not on filedocumented in this encounter Care Teams Float Builder Relationship Specialty Start Date End Date Alistair Ramos MD [facility] [place] [address] PCP - General Family Medicine 02/16/22 documented as of this encounter
--- OUTSIDE RECORDS SUMMARY | 2023-12-27 19:43 | XMS_ITS | Encounter Summary ---
[place] [address] Care Team Providers Care Seat Joiner Name Role Phone Alistair Ramos MD Primary Care Provider [phone] Reason for Visit * Reason Comments Medication Management Medication Refill Encounter Details Date Type Department Care Team (Late st Contact Info) Description 08/02/2022 Specialty [place] [address] Shaina Wisdom [facility] Social History Tobacco Use Types Packs/Day [...] as of this encounter Progress Notes * Shaina Wisdom RPH - 08/02/2022 11:00 AM EDT Clinical Management Plan: Refill Specialty Pharmacy Consultation; Shaina Wisdom [facility] Comprehensive Medication Management (CMM) Ghada Ervin Ms. [...] Other (See Comments) flushing, respiratory trouble ??? [place] Other (See Comments) Flu like sx ??? Zoloft [Sertraline] Other (See Comments) Flu like sx Medication Reconciliation Discrepancies (compared to [facility] med list) No Specialty Pharmacy Refill Questionnaire 08/02/2022 Refill Questionnaire What is the name of the specialty medication you are refilling? Taltz Are you taking any new medications? No Any new medical condition? No Any new allergies? No Any new side effects that are bothersome? No What date will you need this fill by? 08/03/2022 Adherence: Any missed doses? No Patient understands no changes to current drug regimen were made. Shaina Wisdom [facility] 08/02/22 11:06 AM * Shaina Wisdom [facility] - 08/02/2022 11:00 AM EDT Clinical Management Plan: Documentation of Clinical Response Specialty Pharmacy Consultation; Shaina Wisdom [facility] Comprehensive Medication Management (CMM) Ghada Watersley Ms. Ghada Ervin is a 31 y.o. (1990) female who was contacted by [facility] to document clinical response for their specialty medication, Taltz. Summary: Appropriate Therapy: Yes Effective: Yes Patient states that Taltz has helped substantially with her plaque psoriasis. The patient notes a decreased number of plaques and a decrease in itchiness. Patient reports that she has tolerated Taltzwell and denies having any side effects. Patient feels comfortable with the injection process and had had no issues with administration. Ghada is pleased with how Taltz has been helping her plaquepsoriasis and would like to continue the medication at this time. This information will be submitted to insurance to pursue medication approval. Shaina Wisdom [facility] 08/02/22 11:09 AM documented in this encounter Plan of Treatment Upcoming Encounters Date Type Department Care Team (Late st Contact Info) Description 01/24/2024 3:40 PM EDT Office Visit Cardiology at [address] [address] Rangel Willams MD [facility] [place] [address] documented as of this encounter Visit Diagnoses Not on filedocumented in this encounter Care Teams Seat Joiner Relationship Specialty Start Date End Date Alistair Ramos MD [address] [address] PCP - General Family Medicine 02/16/22 documented as of this encounter
--- OUTSIDE RECORDS SUMMARY | 2023-12-27 19:43 | XMS_ITS | Encounter Summary ---
Author Organization [facility] [place] [address] Care Team Providers Care Hyperbaric Welder Diver Name Role Phone Alistair Ramos MD Primary Care Provider [phone] Encounter Details Date Type Department Care Team (Late st Contact Info) Description 08/24/2022 7:05 PM EDT Ancillary Procedure [place] [address] Johnnie Cordova MD [facility] [place] [address] Social History Tobacco Use Types [...] PM EDT Office Visit Cardiology at [address] [address] Rangel Willams MD [facility] CARDIOLOGY [place], [place] [id number] documented as of this encounter Procedures Procedure Name Priority Date/Time Associated Diagnosis Comments FILM LIBRARY STORAGE ONLY CT CHEST Routine 08/24/2022 6:53 PM EDT documented in this encounter Results * Film Library- Storage Only CT Chest (08/24/2022 6:53 PM EDT) Narrative TARI - 08/24/2022 6:53 PM EDT This exam is auto-finalizing. It's purpose is for storage only. Johnnie Cordova MD IMG FILM LIBRARY ORD ERABLES [place], [place] documented in this encounter Visit Diagnoses Not on filedocumented in this encounter Care Teams Hyperbaric Welder Diver Relationship Specialty Start Date End Date Alistair Ramos MD [address] [place] [address] PCP - General Family Medicine 02/16/22 documented as of this encounter
--- OUTSIDE RECORDS SUMMARY | 2023-12-27 19:43 | XMS_ITS | Encounter Summary ---
Author Organization [facility] [place] [address] Care Team Providers Care Pediatric Occupational Therapist Name Role Phone Alistair Ramos MD Primary Care Provider [phone] Encounter Details Date Type Department Care Team (Late Contact Info) Description 05/17/2023 [place] [address] [facility] [address] Social History Tobacco Use Types Packs/Day Years [...] as of this encounter Progress Notes * Michelle Gomez PA - 05/17/2023 10:29 AM EST Received note from [facility] re: OAC and anti-PLT. Her PCP tells me she should be on aspirin and plavix. Was on apixaban briefly for a prior DVT complicating a PICC line but should be off apixaban now. Will touch base with patient regarding this and plan for DAPT. RICCO Kerns documented in this encounter Plan of Treatment Upcoming Encounters Date Type Department Care Team (Late st Contact Info) Description 01/24/2024 3:40 PM EDT Office Visit Cardiology at [address] [address] [facility] [place] [address] documented as of this encounter Visit Diagnoses Not on filedocumented in this encounter Care Teams Pediatric Occupational Therapist Relationship Specialty Start Date End Date Alistair Ramos MD [facility] [address] PCP - General Family Medicine 02/16/22 documented as of this encounter
--- OUTSIDE RECORDS SUMMARY | 2023-12-27 19:43 | XMS_ITS | Encounter Summary ---
Author Organization [facility] [place] [address] Care Team Providers Care Police Liaison Name Role Phone Alistair Ramos MD Primary Care Provider [phone] Encounter Details Date Type Department Care Team (Late st Contact Info) Description 10/23/2023 Orders Only Dermatology at [facility] [address] [place] [address] Johnnie Tompkins MD [facility] [address] [place] [address] High risk medication use Social History Tobacco Use Types Packs/Day Years [...] 3:40 PM EDT Office Visit Cardiology at [address] [address] Rangel Willams MD [facility] [place] [address] Scheduled Orders Name Type Priority Associated Diagnoses Orde r Schedule QuantiFERON-TB Gold Lab Routine High risk medication use Expected: 10/23/2023, Expires: 04/23/2024 documented as of this encounter Visit Diagnoses Diagnosis High risk medication use Encounter for long-term (current) use of other medications documented in this encounter Care Teams Police Liaison Relationship Specialty Start Date End Date Alistair Ramos MD [address] [place] [address] PCP - General Family Medicine 02/16/22 documented as of this encounter
--- OUTSIDE RECORDS SUMMARY | 2023-12-27 19:44 | XMS_ITS | Encounter Summary ---
[place] [address] Care Team Providers Care Social Work Specialist Name Role Phone Frances Sorensen KIM Primary Care Provider [phone] Encounter Details Date Type Department Care Team (Late st Contact Info) Description 12/04/2019 [place] [address] Gilda Fitzgerald Social History Tobacco Use Types Packs/Day Years Used Date Smoking Tobacco: Every Day Cigarettes Smokeless Tobacco: Never Comments:5-8 Cigs a day Alcohol Use Standard Drinks/Week Comments Yes 0 (1 standard drink = 0.6 oz pur e alcohol) seldom Sex and Gender Information Value Date Recorded Sex Assigned at Not on file Gender Identity Not on file Sexual Orientation Not on file documented as of this encounter Miscellaneous Notes * Telephone Encounter - Sara Nina Lozano - 12/04/2019 3:18 PM EDT I called Ghada to f/u on the call she placed to our office reporting an increase in the frequency of her headaches. She is not having any new neurological sxs and reports the headaches are not constant. She no-showed to quite a few appts. And has not had her f/u with Dr. Castro. I told her we should get her scheduled for a f/u so she can check in with Dr. Castro and we can make a plan as to how to proceed. I did discuss with her that it is difficult for us to provide high quality care to her when she no-shows to appointments. She verbalized an understanding of this. * Telephone Encounter - Gilda Fitzgerald - 12/04/2019 3:08 PM EDT Caller: Patient Best number to reach caller: [phone] Reason for call: Patient calling with increasing frequency of headaches Recent Surgery?: 01/21/19 If before 4:00 pm: Inform caller that the typical expectation for a call back is within 1-2 hours. documented in this encounter Plan of Treatment Upcoming Encounters Date Type Department Care Team (Late st Contact Info) Description 01/24/2024 3:40 PM EDT Office Visit Cardiology at [address] [address] Rangel Willams MD [facility] [place] [address] documented as of this encounter Visit Diagnoses Not on filedocumented in this encounter Care Teams Social Work Specialist Relationship Specialty Start Date End Date Frances Sorensen APRN [address] [place] [address] PCP - General Family Medicine 01/21/19 02/15/22 documented as of this encounter
--- OUTSIDE RECORDS SUMMARY | 2023-12-27 19:44 | XMS_ITS | Encounter Summary ---
Author Organization [facility] [place] [address] Care Team Providers Care Nuclear Operations Specialist Name Role Phone Frances Sorensen APRN Primary Care Provider Encounter Details Date Type Department Care Team (Late st Contact Info) Description 08/31/2021 Telephone [place] [phone] Marla Bartlett Social History Tobacco Use Types Packs/Day Years [...] 3:40 PM EDT Office Visit Cardiology at [address] [phone] Rangel Willams MD [facility] [place] [address] documented as of this encounter Visit Diagnoses Not on filedocumented in this encounter Care Teams Nuclear Operations Specialist Relationship Specialty Start Date End Date Frances Sorensen APRN [address] [place] [address] PCP - General Family Medicine 01/21/19 02/15/22 documented as of this encounter
--- OUTSIDE RECORDS SUMMARY | 2023-12-27 19:44 | XMS_ITS | Encounter Summary ---
Author Organization [facility] [place] [address] Care Team Providers Care Receiver/Laborer Name Role Phone Frances Sorensen APRN Primary Care Provider Encounter Details Date Type Department Care Team (Late st Contact Info) Description 02/27/2021 Ancillary Procedure [place] [phone] Frances Sorensen APRN [address] [place], [place] [address] Social History Tobacco Use Types Packs/Day Years [...] PM EDT Office Visit Cardiology at [address] [phone] Rangel Willams MD [facility] [place] [address] documented as of this encounter Procedures Procedure Name Priority Date/Time Associated Diagnosis Comments FILM LIBRARY STORAGE ONLY CT CHEST Routine 02/27/2021 12:00 AM EDT documented in this encounter Results * Film Library- Storage Only CT Chest (02/27/2021 12:00 AM EDT) Narrative RAD - 08/12/2021 3:56 PM EDT This exam is auto-finalizing. It's purpose is for storage only. Frances ANSARI FILM LIBRARY ORD ERABLES Performing Organization Address City/State/[facility] Co de Phone Number [place], [place] documented in this encounter Visit Diagnoses Not on filedocumented in this encounter Care Teams Receiver/Laborer Relationship Specialty Start Date End Date Frances Sorensen APRN [address] [place] [address] PCP - General Family Medicine 01/21/19 02/15/22 documented as of this encounter
--- OUTSIDE RECORDS SUMMARY | 2023-12-27 19:44 | XMS_ITS | Encounter Summary ---
[place] [address] Care Team Providers Care Tobacco Educator Name Role Phone Alistair Ramos MD Primary Care Provider [phone] Encounter Details Date Type Department Care Team (Late st Contact Info) Description 05/18/2022 [place] [address] Kj Mota, [facility] Social History Tobacco Use Types Packs/Day Years [...] encounter Miscellaneous Notes * Telephone Encounter - Kj Mota [facility] - 05/18/2022 2:07 PM EST Spoke with Ghada Ervin over the phone to discuss the injection technique of Taltz. She has received her first doses of the medication and wanted to review instructions of proper administration.We discussed proper storage and disposal of the medication. I reviewed the possible administration sites, as well as how to rotate the sites used. We discussed the correct dosing, including the use of two pens for the first dose. I was able to answer all questions regarding the administration of Taltz, and Ghada plans to have her fist dose later today. She has my contact information if any questions arise. Kj Mota, PharmD 05/18/2022 2:27 PM documented in this encounter Plan of Treatment Upcoming Encounters Date Type Department Care Team (Late st Contact Info) Description 01/24/2024 3:40 PM EDT Office Visit Cardiology at [address] [address] Rangel Willams MD [facility] [place] [address] documented as of this encounter Visit Diagnoses Not on filedocumented in this encounter Care Teams Tobacco Educator Relationship Specialty Start Date End Date Alistair Ramos MD [address] [place] [address] PCP - General Family Medicine 02/16/22 documented as of this encounter
--- OUTSIDE RECORDS SUMMARY | 2023-12-27 19:44 | XMS_ITS | Encounter Summary ---
[place] [address] Care Team Providers Care Naval Aircrewman Tactical Helicopter Name Role Phone Alistair Ramos MD Primary Care Provider [phone] Reason for Visit * Reason Comments Prior Authorization TALTZ 80MG/ML SOAJ Encounter Details Date Type Department Care Team (Late st Contact Info) Description 03/24/2022 Specialty [place] [phone] Joy Dick, [employer] Social History Tobacco Use Types Packs/Day Years [...] as of this encounter Progress Notes * Joy Dick - 03/24/2022 2:45 PM EST [facility], Medication Prior Authorization Submission Patient: Ghada Ervin Patient : 1990 Patient Address: [address] [address] (home) Medication Name: TALTZ AUTOINJECTOR (3 PACK) 80 MG/ML SUBCUTANEOUS Medication ID: [id number] Subscriber Insurance: [place] Medicaid Subscriber Insurance Comment: Fax: Physician: JOHN MENSAH Physician Comment: Sent Via: [place]: [id number] Ref/Case/PA#: Medication Strength Frequency Requested: Taltz 80mg/ml, Inject the contents of two autoinjectors (160 mg) under the skin once on week 0, then inject the contents of one autoinjector (80 mg) once on weeks 2, 4, 6, 8, 10, 12 and once every 4 weeks thereafter Qty/Day Supply: 07/19 New Start: New to Therapy Diagnosis & ICD-10 Code: Psoriasis L40.9 Patient Notified: No Submission Notes: None Joy Dick 03/24/22 2:49 PM * Judit Merida - 03/24/2022 2:45 PM EST [facility], Prior Authorization Denial Medication Name: TALTZ AUTOINJECTOR (3 PACK) 80 MG/ML SUBCUTANEOUS Medication ID: [id number] Case/Reference # : [id number] Denial Summary: Please see denial letter in media tab Patient Notified of Denial: No Additional Information from insurance carrier. Please see below: None For any questions relating to this denial please reach out directly to your section's specialty pharmacist, or the specialty pharmacy team at [facility] Judit Merida 03/24/22 5:06 PM * Kj Mota RPH - 03/24/2022 2:45 PM EST [facility], Prior Authorization Appeal Submission Medication Name: TALTZ AUTOINJECTOR (3 PACK) 80 MG/ML SUBCUTANEOUS Medication ID: Denied by Insurance on: 03/24/2022 Appeal Submission Date: 03/30/2022 Sent Via: Faxed Letter Appeals Department Contact Information: Additional information regarding this appeal: - Appealed with clinical information including: BSA 35%, head involvement, oral systemic medications inappropriate due to hypertension and hepatitis, Humira inappropriate due to HFrEF. For any questions relating to this appeal please reach out directly to your section's specialty pharmacist. Kj Mota RPH 03/30/22 6:10 PM * Judit Merida - 03/24/2022 2:45 PM EST [facility], Prior Authorization Appeal Approval Medication Name: TALTZ AUTOINJECTOR (3 PACK) 80 MG/ML SUBCUTANEOUS Medication ID: Appeal Result: PA Approved Appeal Decision Date: 03/31/2022 9:30 AM Approved from: 03/30/2022 to Reference Number: [id number], [id number] Can be filled with: [facility] Fillable at [facility]: Yes Patient Notified of Approval: To be contacted by [facility] for consult Additional Information regarding this Appeal: None For any questions relating to this appeal please reach out directly to your section's specialty pharmacist. Judit Merida 03/31/22 9:31 AM documented in this encounter Plan of Treatment Upcoming Encounters Date Type Department Care Team (Late st Contact Info) Description 01/24/2024 3:40 PM EDT Office Visit Cardiology at [address] [address] Rangel Willams MD [facility] [place] [address] documented as of this encounter Visit Diagnoses Not on filedocumented in this encounter Care Teams Naval Aircrewman Tactical Helicopter Relationship Specialty Start Date End Date Alistair Ramos MD [address] [place] [address] PCP - General Family Medicine 02/16/22 documented as of this encounter
--- OUTSIDE RECORDS SUMMARY | 2023-12-27 19:44 | XMS_ITS | Encounter Summary ---
Author Organization [facility] [place] [address] Care Team Providers Care Prize Fighter Name Role Phone Alistair Ramos MD Primary Care Provider [phone] Encounter Details Date Type Department Care Team (Latest Contact Info) Description 03/23/2022 Travel Social History Tobacco Use Types Packs/Day [...] PM EDT Office Visit Cardiology at [address] [address] Rangel Willams MD [facility] [place] [address] documented as of this encounter Visit Diagnoses Not on filedocumented in this encounter Care Teams Prize Fighter Relationship Specialty Start Date End Date Alistair Ramos MD [address] [place] [address] [place] [address] PCP - General Family Medicine 02/16/22 documented as of this encounter
--- OUTSIDE RECORDS SUMMARY | 2023-12-27 19:44 | XMS_ITS | Encounter Summary ---
Author Organization [facility] Address [facility] [place] [address] Care Team Providers Care Feed Inspection Supervisor Name Role Phone Alistair Ramos MD Primary Care Provider [phone] Reason for Referral * Consultation (Routine) - Closed Specialty Diagnoses / Procedures Referred By Contac t Referred To Contact Cardiology Diagnoses Cardiomyopathy, unspecified type On methadone w/ h/o CM & s/p cath ablation. Now getting more freq palps & chest discomfort. Alistair Ramos MD [address] [place] [address] [facility] [address] Referral ID Status Reason Start Date Expiration Date V isits Requested Visits Authorized [id number] Closed Consult, Test & Treat PCP Updated and/or Approved 06/06/2022 06/06/2023 12 12 Encounter Details Date Type Department Care Team (Latest Contact Info) Description 06/06/2022 Transcribe Orders eDH Incoming Referrals [phone] Alistair Ramos MD [address] [place] [address] Cardiomyopathy, unspecified type Social History Tobacco Use Types Packs/Day Years [...] 3:40 PM EDT Office Visit Cardiology at [address] [address] [facility] [address] Scheduled Referrals Name Type Priority Associated Diagnoses Orde r Schedule Referral to Cardiology Outpatient Referral Routine Cardiomyopathy, unspecified type Ordered: 06/06/2022 documented as of this encounter Visit Diagnoses Diagnosis Cardiomyopathy, unspecified type documented in this encounter Care Teams Feed Inspection Supervisor Relationship Specialty Start Date End Date Alistair Ramos MD [address] [place] [address] PCP - General Family Medicine 02/16/22 documented as of this encounter
--- OUTSIDE RECORDS SUMMARY | 2023-12-27 19:44 | XMS_ITS | Encounter Summary ---
Author Organization [facility] [place] [address] Care Team Providers Care Box Maker Name Role Phone Frances Sorensen KIM Primary Care Provider [phone] Encounter Details Date Type Department Care Team (Late st Contact Info) Description 08/23/2021 Ancillary Procedure [place] [address] Johnnie Cordova MD [facility] [place] [address] Social History Tobacco Use Types [...] 3:40 PM EDT Office Visit Cardiology at [address] [phone] Rangel Willams MD [facility] [place] [address] documented as of this encounter Procedures Procedure Name Priority Date/Time Associated Diagnosis Comments FILM LIBRARY STORAGE ONLY DX CHEST Routine 08/23/2021 12:00 AM EDT documented in this encounter Results * Film Library- Storage Only DX Chest (08/23/2021 12:00 AM EDT) Narrative TARI - 08/24/2022 6:51 PM EDT This exam is auto-finalizing. It's purpose is for storage only. Johnnie Cordova MD IMG FILM LIBRARY ORD ERABLES [place], [place] documented in this encounter Visit Diagnoses Not on filedocumented in this encounter Care Teams Box Maker Relationship Specialty Start Date End Date Frances Sorensen APRN [address] [place] [address] PCP - General Family Medicine 01/21/19 02/15/22 documented as of this encounter
--- OUTSIDE RECORDS SUMMARY | 2023-12-27 19:44 | XMS_ITS | Encounter Summary ---
Author [place] [address] Care Team Providers Care Case Advocate Name Role Phone Frances Sorensen KIM Primary Care Provider [phone] Reason for Referral * Consultation (Routine) - Closed Specialty Diagnoses / Procedures Referred By Lang sanches Referred To Contact Neurology Diagnoses Left hemiparesis Complex medical symptoms, hx of stroke, seizures, altered medtal status, chronic headache Stefanie Zaidi MD [facility] [address] [place] [address] Jhonathan Garza MD [facility] [place] [address] Referral ID Status Reason Start Date Expiration Date V isits Requested Visits Authorized [id number] Closed Consult, Test & Treat 07/29/2021 07/29/2022 1 1 Encounter Details Date Type Department Care Team (Late st Contact Info) Description 07/29/2021 Transcribe Orders eDH Incoming Referrals [phone] Stefanie Zaidi MD [facility] [address] [place] [address] Left hemiparesis (Primary Dx) Social History Tobacco Use Types Packs/Day Years [...] PM EDT Office Visit Cardiology at [address] [address] Rangel Willams MD [facility] [place] [address] Scheduled Referrals Name Type Priority Associated Diagnoses Orde r Schedule Referral to Neurology Outpatient Referral Routine Left hemiparesis Ordered: 07/29/2021 documented as of this encounter Visit Diagnoses Diagnosis Left hemiparesis- Primary Hemiplegia, unspecified, affecting unspecified side documented in this encounter Care Teams Case Advocate Relationship Specialty Start Date End Date Frances Sorensen APRN [address] [place] [address] PCP - General Family Medicine 01/21/19 02/15/22 documented as of this encounter
--- OUTSIDE RECORDS SUMMARY | 2023-12-27 19:44 | XMS_ITS | Encounter Summary ---
[place] [address] Care Team Providers Care Programming Internship Name Role Phone Frances Sorensen KIM Primary Care Provider [phone] Encounter Details Date Type Department Care Team (Late st Contact Info) Description 03/30/2020 [place] [address] Elise Meyer Social History Tobacco Use Types Packs/Day Years [...] encounter Miscellaneous Notes * Telephone Encounter - Gladys Latif RN - 03/31/2020 12:19 PM EST I spoke with Ghada and let her know she does not need to continue taking Plavix per Dr. Castro. * Telephone Encounter - Elise Meyer - 03/30/2020 4:08 PM EST Caller: Patient If not the patient: Name of caller: Relationship to patient: Personal Rep on file?: Best time to reach caller: any Best number to reach caller: [phone] (M) Reason for call: Refill of Plavix - PCP would prefer CTE office do Recent Surgery?: no If before 4:00 pm: Inform caller that the typical expectation for a call back is within 1-2 hours. If after 4:00 pm: Inform caller that if the nurse does not call back by the end of the day, they will be called in the AM of the next business day. documented in this encounter Plan of Treatment Upcoming Encounters Date Type Department Care Team (Late st Contact Info) Description 01/24/2024 3:40 PM EDT Office Visit Cardiology at [address] [address] Rangel iWllams MD [facility] [place] [address] documented as of this encounter Visit Diagnoses Not on filedocumented in this encounter Care Teams Programming Internship Relationship Specialty Start Date End Date Frances Sorensen APRN [address] [place] [address] PCP - General Family Medicine 01/21/19 02/15/22 documented as of this encounter
--- OUTSIDE RECORDS SUMMARY | 2023-12-27 19:44 | XMS_ITS | Encounter Summary ---
Author Organization [facility] [place] [address] Care Team Providers Care Search Director Name Role Phone Frances Sorensen KIM Primary Care Provider [phone] Encounter Details Date Type Department Care Team (Late st Contact Info) Description 04/22/2021 Telephone Cardiology at [address] [phone] Radha Fisher LNA Social History Tobacco Use Types Packs/Day Years [...] encounter Miscellaneous Notes * Telephone Encounter - Radha Fisher LNA - 04/26/2021 10:04 AM EST Opened in error documented in this encounter Plan of Treatment Upcoming Encounters Date Type Department Care Team (Late st Contact Info) Description 01/24/2024 3:40 PM EDT Office Visit Cardiology at [address] [phone] Rangel Willams MD [facility] [address] documented as of this encounter Visit Diagnoses Not on filedocumented in this encounter Care Teams Search Director Relationship Specialty Start Date End Date Frances Sorensen APRN [address] [place] [address] PCP - General Family Medicine 01/21/19 02/15/22 documented as of this encounter
--- OUTSIDE RECORDS SUMMARY | 2023-12-27 19:44 | XMS_ITS | Encounter Summary ---
Author Organization [facility] [place] [address] Care Team Providers Care Back Tender Name Role Phone Alistair Ramos MD Primary Care Provider [phone] Reason for Visit * Consultation (Routine) - Closed Specialty Diagnoses / Procedures Referred By Lang sanches Referred To Contact Dermatology Diagnoses Psoriasis Dawson Cox, RICCO [address] [place] [address] [facility] [address] [place] [address] Referral ID Status Reason Start Date Expiration Date V isits Requested Visits Authorized [id number] Closed Consult, Test & Treat PCP Updated and/or Approved 02/16/2022 02/16/2023 6 6 Encounter Details Date Type Department Care Team (Late st Contact Info) Description 03/23/2022 3:20 PM EST Office Visit Dermatology at [facility] [address] [place] [address] Johnnie Tompkins MD [facility] [address] [address] Psoriasis; High risk medication use Social History Tobacco [...] as of this encounter Progress Notes * Johnnie Tompkins MD - 03/23/2022 3:20 PM EST Images from the original note were not included. DEPARTMENT OF DERMATOLOGY Medical Dermatology Clinic Note Provider: Johnnie Tompkins MD Patient's preferred name Ghada Preferred contact method for results [x]Phone (Cell) []myD-H []Letter Detailed phone message OK? Y Are there any other people with whom we may discuss your care? Y (Deidre Ervin - mother) Past Medical History Date, location, treatment Melanoma N Dysplastic nevi N SCC N BCC N AKs N UV Exposure & Protection Other relevant past medical history Eczema, psoriasis, HTN, stomach ulcers, hepatitis, blood clots,blood transfusion, depression, stroke, allergies/hay fever, asthma, rheumatoid arthritis Family History Details Melanoma N NMSC N Other relevant family history Psoriatic arthritis and rhuematoid arthritis in mother Breast cancer, ovarian cancer, uterine cancer, and stomach cancer Social History Occupation: Hobbies: Other: current smoker Pre-Procedure Questions Details Allergy to lidocaine, epinephrine, Dermabond, chlorhexidine, or adhesives N Bleeding disorder or blood thinners Y; Plavix Implanted devices (Pacemaker, defibrillator, deep brain stimulator, cochlear implant) N History of Present Illness: Ghada Ervin is a 31 y.o. Patient is referred to the clinic at [facility] for psoriasis management. Started 6 months ago with abrupt onset of widespread psoriatic plaques on the scalp, trunk, and extremities. Has tried triamcinolone cream, betamethasone cream, betamethasone ointment, and calcipotriene foam without relief. There is prominent itch and the psoriasis is interfering with her quality of life. She reports finger swelling and arthralgias. Review of Systems: General: Feeling well. Skin: No other skin concerns. Medications: Reviewed in eD-H Allergies: Reviewed in eD-H Skin Examination: Focused skin examination of the face, trunk, and extremities was normal with the exception of the findings below. 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 No evidence of nail involvement. Bilateral finger swelling. (Fi gures 1-5) - Plaques persistent despite adequate course of triamcinolone cream, betamethasone cream, betamethasone ointment, and calcipotriene foam without relief. - Start Rx: fluocinolone 0.01% oil: Apply a thin film onto scalp and massage thoroughly into wet ordampened hair/scalp; cover with shower cap. Leave on overnight (or for at least 4 hours). Remove bywashing hair with shampoo and rinsing thoroughly. Please do this 3 days in a row then take 1 week off. Repeat this cycle as needed - Recommended T-michael shampoo. - Given extent of involvement (35% BSA) and inadequate control with topicals, will likely need systemic therapy. - Start Rx: ixekizumab (Taltravis): 160 mg once, followed by 80 mg at weeks 2, 4, 6, 8, 10, and 12, andthen 80 mg every 4 weeks - Discussed risks: Immunosuppression (increased risk of malignancy/infection). - Counseled side effects and potential adverse reactions: Injection site reaction, flu-like symptoms (nausea, vomiting, diarrhea), headaches, fatigue. - Reviewed necessity of lab monitoring and routine follow ups. - Order CBC, CMP, Quantiferon Gold, HBsAg, HBsAB, HBcAB, HCV AB - She is scheduled to follow up with jig operator Dr. Ibarra for evaluation of psoriatic arthritis Figure 1 Figure 2 Figure 3 Figure 4 Figure 5 Photo(s) taken and charted with patient's verbal consent. Other: ??? N/A RTC: 3 months for psoriasis follow up []Note routed to legal administrative secretary []Recall placed in scheduling system []Appointment scheduled at checkout Scribe attestation: Johnnie Tompkins MD has performed the documentation for this encounter in the presence of and acting as a scribe for Johnnie Tompkins MD. I performed the above scribed service and agree with the accuracy of the documentation in this encounter. Reviewed and signed by: Johnnie Tompkins MD Dermatology [facility] Patient seen and evaluated with staff cigar head piercer: Stef Ndiaye MD Department of Dermatology [facility] * Stef Ndiaye MD - 03/23/2022 3:20 PM EST I directly supervised Dr. Tompkins during this office visit. Dr. Tompkins presented the history and physical exam to me. I, then, saw and examined this patient with Dr. Tompkins. We reviewed the history and pertinent details and I confirmed the physical findings. I agree with the details of the history and physical exam as documented in Dr. Tompkins's note. STEF NDIAYE MD Staff Physician documented in this encounter Plan of Treatment Upcoming Encounters Date Type Department Care Team (Late st Contact Info) Description 01/24/2024 3:40 PM EDT Office Visit Cardiology at [address] [address] Rangel Willams MD [facility] [place] [address] documented as of this encounter Results * (ABNORMAL) Hepatitis C Antibody (03/23/2022 4:50 PM EST) [facility] Hepatitis C Antibody Positive(A ) Negative [facility] Blood 03/23/2022 4:50 PM EST 03/23/2022 4:58 PM EST Narrative Resulting Agency Comment Spec In Lab Stef Ndiaye MD CHEMISTRY ORDERABLES [facility] [place] [address] * Hepatitis B Core Antibody, Total (03/23/2022 4:50 PM EST) Hepatitis B Core Antibody Negative Negative [facility] Blood 03/23/2022 4:50 PM EST 03/23/2022 4:58 PM EST Narrative Resulting Agency Comment Spec In Lab Stef Ndiaye MD CHEMISTRY ORDERABLES Performing Organization Address City/[facility] Co de Phone Number [facility] [place] [address] * Hepatitis B Surface Antibody (03/23/2022 4:50 PM EST) Hepatitis B Surface Antibody, Quantitative 527.0 IU/L [facility] Comment: HepB Surface Ab Quant: Unvaccinated: < 8.5 IU/L Vaccinated: > 11.5 IU/L Hepatitis B Surface Antibody Positive [facility] Comment: Patient is considered to be immune to HBV infection. Expected Results: Vaccinated: Positive Unvaccinated: Negative Blood 03/23/2022 4:50 PM EST 03/23/2022 4:58 PM EST Narrative Resulting Agency Comment Spec In Lab Stef Ndiaye MD CHEMISTRY ORDERABLES Performing Organization Address [facility] Co de Phone Number [facility] [place] [address] * Hepatitis B Surface Antigen (03/23/2022 4:50 PM EST) Hepatitis B Surface Antigen Negative Negative [facility] Blood 03/23/2022 4:50 PM EST 03/23/2022 4:58 PM EST Narrative Resulting Agency Comment Spec In Lab Stef Ndiaye MD CHEMISTRY ORDERABLES Performing Organization Address City/[facility]/ZIP Co de Phone Number [facility] [place] [address] * QuantiFERON-TB Gold (03/23/2022 4:50 PM EST) Quantiferon Nil 0.054 IU/mL [facility] QFT TB Ag1-Nil -0.007 IU/mL [facility] QFT TB Ag2-Nil -0.009 IU/mL [facility] Quantiferon Mitogen-Nil 9.946 IU/mL [facility] Quantiferon-TB Gold Negative Negative [facility] Quantiferon Tb Interp M. tuberculosis infection NOT likely A negative specimen should have a TB1 Ag minus Nil value and TB2 Ag minus Nil value of less than 0.35 IU/mL OR a TB1 Ag minus Nil or TB2 Ag minus Nil value greater than or equal to 0.35 IU/mL AND a TB Ag minus Nil value from the same tube of less than 25% of the Nil value. A negative specimen must also have a mitogen minus Nil value greater than or equal to 0.5 IU/mL. A negative QFT-Plus result does not preclude the possibility of M. tuberculosis infection. False negative results can occur due to stage of infection (specimen obtained prior to the development of immune response), co-morbid conditions which affect immune function, or other immunological factors. [facility] Blood 03/23/2022 4:50 PM EST 03/24/2022 11:20 AM EST Narrative Resulting Agency Comment Spec In Lab Stef Ndiaye MD CHEMISTRY ORDERABLES [facility] [place] [address] * (ABNORMAL) Comprehensive metabolic panel (non-fasting) (03/23/2022 4:50 PM EST) Glucose 154 65 - 199 mg/dL [facility] Comment:Diabetes: >=200 mg/d L plus symptoms Blood Urea Nitrogen 15 8 - 18 mg/dL [facility] Creatinine 0.77 0.70 - 1.20 mg/dL [facility] Sodium 136 135 - 145 mmol/L [facility] Potassium 4.1 3.5 - 5.0 mmol/L [facility] Comment: Please note: ??Patients with WBC >100,000 may have falsely elevated Potassium levels. ??For accurate Potassium quantification in these patients send serum separator tube (gold top) for subsequent determinations. ??Contact the Clinical Chemistry Laboratory if there are any questions. Chloride 99 98 - 107 mmol/L [facility] Carbon Dioxide 27 22 - 31 mmol/L [facility] Anion Gap 10 5 - 15 mmol/L [facility] Calcium 8.8 8.5 - 10.5 mg/dL [facility] Protein, Total 7.7 6.1 - 8.0 g/dL [facility] Albumin 3.8 3.2 - 5.2 g/dL [facility] Aspartate Aminotransferase 13 0 - 30 unit/L [facility] Alanine Aminotransferase 13 0 - 30 unit/L [facility] Alkaline Phosphatase 137(H) 35 - 105 unit/L [facility] Bilirubin, Total <0.2(L) 0.2 - 1.3 mg/dL [facility] Est Glomerular Filtration Rate 105 >=60 mL/min/1. 73 m?? [facility] Comment: This patient's estimated GFR was calculated using the 2020 CKD-EPI equation. The estimated GFR can vary from the measured GFR by up to 30% in the absence of rapidly changing kidney function. Assessment of the estimated GFR is not appropriate when creatinine concentrations are rapidly changing. For clinical situations in which a more precise estimate of GFR is necessary, consider alternative methods of GFR estimation such as a 24-hour urine creatinine clearance. Assignment of CKD stage 1-5 for patients with an eGFR near the transition point between stages may be based on clinical assessment of muscle mass and symptoms in addition to eGFR. Blood 03/23/2022 4:50 PM EST 03/23/2022 4:58 PM EST Narrative Resulting Agency Comment Spec In Lab Stef Ndiaye MD CHEMISTRY ORDERABLES [facility] [place] [address] documented in this encounter Visit Diagnoses Diagnosis Psoriasis Other psoriasis High risk medication use Encounter for long-term (current) use of other medications documented in this encounter Care Teams Back Tender Relationship Specialty Start Date End Date Alistair Ramos MD [address] [place] [address] PCP - General Family Medicine 02/16/22 documented as of this encounter
--- OUTSIDE RECORDS SUMMARY | 2023-12-27 19:44 | XMS_ITS | Encounter Summary ---
[place] [address] Care Team Providers Care Solder Cream Maker Name Role Phone Frances Sorensen APRN Primary Care Provider [phone] Reason for Referral * Consultation (Routine) - Closed Specialty Diagnoses / Procedures Referred By Lang sanches Referred To Contact Dermatology Diagnoses Psoriasis Frances Sorensen APRN [address] [place] [address] [facility] [address] [place] [address] Referral ID Status Reason Start Date Expiration Date V isits Requested Visits Authorized [id number] Closed Consult, Test & Treat PCP Updated and/or Approved 09/26/2021 09/26/2022 12 12 Encounter Details Date Type Department Care Team (Late st Contact Info) Description 09/26/2021 Transcribe Orders eDH Incoming Referrals [phone] Frances Sorensen APRN [address] [place], [place] [id number] Psoriasis Social History Tobacco Use Types Packs/Day [...] 3:40 PM EDT Office Visit Cardiology at [address] [address] Rangel Willams MD [facility] [place] [address] Scheduled Referrals Name Type Priority Associated Diagnoses Order Schedule Referral to Dermatology Outpatient Referral Routine Psoriasis Ordered: 09/26/2021 documented as of this encounter Visit Diagnoses Diagnosis Psoriasis Other psoriasis documented in this encounter Care Teams Solder Cream Maker Relationship Specialty Start Date End Date Frances Sorensen APRN [address] [place] [address] PCP - General Family Medicine 01/21/19 02/15/22 documented as of this encounter
--- OUTSIDE RECORDS SUMMARY | 2023-12-27 19:44 | XMS_ITS | Encounter Summary ---
[place] [address] Care Team Providers Care Clinical Program Director Name Role Phone Frances Sorensen APRN Primary Care Provider [phone] Reason for Referral * Consultation (Routine) - Closed Specialty Diagnoses / Procedures Referred By Contac t Referred To Contact Pulmonology Diagnoses Shortness of breath Frances Sorensen APRN [address] [place] [address] [facility] Pul[facility] [address] [place] [phone] Referral ID Status Reason Start Date Expiration Date V isits Requested Visits Authorized [id number] Closed Consult, Test & Treat PCP Updated and/or Approved 08/25/2021 08/25/2022 6 6 Encounter Details Date Type Department Care Team (Latest Contact Info) Description 08/25/2021 Transcribe Orders eDH Incoming Referrals [phone] Frances Sorensen APRN [address] [place] [address] Shortness of breath Social History Tobacco Use Types Packs/Day Years [...] 3:40 PM EDT Office Visit Cardiology at [address] [address] Rangel Willams MD [facility] [place] [address] Scheduled Referrals Name Type Priority Associated Diagnoses Order Schedule Referral to Pulmonology Outpatient Referral Routine Shortness of breath Ordered: 08/25/2021 documented as of this encounter Visit Diagnoses Diagnosis Shortness of breath documented in this encounter Care Teams Clinical Program Director Relationship Specialty Start Date End Date Frances Sorensen APRN [address] [place] [address] PCP - General Family Medicine 01/21/19 02/15/22 documented as of this encounter
--- OUTSIDE RECORDS SUMMARY | 2023-12-27 19:44 | XMS_ITS | Encounter Summary ---
Author Organization [facility] [place] [place] [address] Care Team Providers Care Analytical Lead Name Role Phone Frances Sorensen KIM Primary Care Provider [phone] Encounter Details Date Type Department Care Team (Late st Contact Info) Description 01/04/2022 Orders [place] [address] Bruce Ibarra MD [facility] [place] [address] PADRON (dyspnea on exertion) Social History Tobacco Use Types Packs/Day Years [...] 3:40 PM EDT Office Visit Cardiology at [address] [phone] Rangel Willams MD [facility] [place] [address] documented as of this encounter Visit Diagnoses Diagnosis PADRON (dyspnea on exertion) Other dyspnea and respiratory abnormality documented in this encounter Care Teams Analytical Lead Relationship Specialty Start Date End Date Frances Sorensen APRN [address] [place] [address] PCP - General Family Medicine 01/21/19 02/15/22 documented as of this encounter
--- OUTSIDE RECORDS SUMMARY | 2023-12-27 19:44 | XMS_ITS | Encounter Summary ---
Author Organization [facility] [place] [address] Care Team Providers Care Line Maintainer Name Role Phone Frances Sorensen KIM Primary Care Provider [phone] Encounter Details Date Type Department Care Team (Late st Contact Info) Description 07/28/2021 8:10 PM EDT Ancillary Procedure [place] [phone] Jhonathan Garza MD [facility] [place] [address] Social History Tobacco Use Types Packs/Day Years [...] 3:40 PM EDT Office Visit Cardiology at [address] [phone] Rangel Willams MD [facility] [place] [address] documented as of this encounter Procedures Procedure Name Priority Date/Time Associated Diagnosis Comments FILM LIBRARY STORAGE ONLY MR HEAD Routine 07/28/2021 8:05 PM EDT documented in this encounter Results * Film Library- Storage Only MR Head (07/28/2021 8:05 PM EDT) Narrative TARI - 07/28/2021 8:05 PM EDT This exam is auto-finalizing. It's purpose is for storage only. Jhonathan Garza MD IMG FILM LIBRARY O RDERABLES [place], [place] documented in this encounter Visit Diagnoses Not on filedocumented in this encounter Care Teams Line Maintainer Relationship Specialty Start Date End Date Frances Sorensen APRN [address] [place] [address] PCP - General Family Medicine 01/21/19 02/15/22 documented as of this encounter
--- OUTSIDE RECORDS SUMMARY | 2023-12-27 19:44 | XMS_ITS | Encounter Summary ---
[place] [address] Care Team Providers Care Vessel Slag Worker Name Role Phone EduFrances KIM Primary Care Provider [phone] Encounter Details Date Type Department Care Team (Late st Contact Info) Description 03/02/2020 Telephone [place] [phone] Luiza Colbert Social History Tobacco Use Types Packs/Day Years [...] encounter Miscellaneous Notes * Telephone Encounter - Luiza Colbert - 03/23/2020 2:57 PM EST LM for pt scheduled angio and IV sedate MRI for 05/08/20 Mailed confirmation letter. * Telephone Encounter - Luiza Colbert - 03/13/2020 3:54 PM EST Mailed 2 letters to Ghada Laura to coord MRI and Angio on 04/14 Postponing, awaiting Jr schedules for CJE. * Telephone Encounter - Luiza Colbert - 03/02/2020 3:09 PM EST Hi Siobhan Patiñoy is calling to reschedule her MRI IV sedate and angiogram with you. She apologizes but is having a hard time getting a ride with RTC from her intermediate. She stated perhaps a letter from you would help her with a ride. I don't want to reschedule until we have a plan. Her number if you wouldlike to talk to her is [phone]. Please advise. Thank you, Luiza documented in this encounter Plan of Treatment Upcoming Encounters Date Type Department Care Team (Late st Contact Info) Description 01/24/2024 3:40 PM EDT Office Visit Cardiology at [address] [phone] Rangel Willams MD [facility] [place] [address] documented as of this encounter Visit Diagnoses Not on filedocumented in this encounter Care Teams Vessel Slag Worker Relationship Specialty Start Date End Date Frances Sorensen APRN [address] [place] [address] PCP - General Family Medicine 01/21/19 02/15/22 documented as of this encounter
--- OUTSIDE RECORDS SUMMARY | 2023-12-27 19:44 | XMS_ITS | Encounter Summary ---
Author Organization [facility] [place] [address] Care Team Providers Care Spindraw Operator Name Role Phone Frances Sorensen APRN Primary Care Provider [phone] Encounter Details Date Type Department Care Team (Late st Contact Info) Description 03/15/2021 4:55 PM EST Ancillary Procedure [place] [address] Frances Sorensen APRN [address] [place], [place] [address] Social History Tobacco Use Types Packs/Day Years [...] 3:40 PM EDT Office Visit Cardiology at [address] [phone] Rangel Willams MD [facility] [address] [place], [place] [phone] documented as of this encounter Procedures Procedure Name Priority Date/Time Associated Diagnosis Comments FILM LIBRARY STORAGE ONLY CT HEAD AND SPINE Routine 03/15/2021 4:51 PM EST documented in this encounter Results * Film Library- Storage Only CT Head And Spine (03/15/2021 4:51 PM EST) Narrative TARI - 03/15/2021 4:51 PM EST This exam is auto-finalizing. It's purpose is for storage only. Frances ANSARI FILM LIBRARY ORD ERABLES [place], [place] documented in this encounter Visit Diagnoses Not on filedocumented in this encounter Care Teams Spindraw Operator Relationship Specialty Start Date End Date Frances Sorensen APRN [address] [place] [address] PCP - General Family Medicine 01/21/19 02/15/22 documented as of this encounter
--- OUTSIDE RECORDS SUMMARY | 2023-12-27 19:44 | XMS_ITS | Encounter Summary ---
Author Organization [facility] [place] [address] Care Team Providers Care Private Branch Exchange Operator Name Role Phone Frances Sorensen APRN Primary Care Provider [phone] Encounter Details Date Type Department Care Team (Late st Contact Info) Description 03/15/2021 5:00 PM EST Ancillary Procedure [place] [phone] Frances Sorensen APRN [address] [place], [place] [address] Social History Tobacco Use Types Packs/Day Years [...] 3:40 PM EDT Office Visit Cardiology at [address] [phone] Rangel Willams MD [facility] [place] [address] documented as of this encounter Procedures Procedure Name Priority Date/Time Associated Diagnosis Comments FILM LIBRARY STORAGE ONLY MR HEAD Routine 03/15/2021 4:52 PM EST documented in this encounter Results * Film Library- Storage Only MR Head (03/15/2021 4:52 PM EST) Narrative TARI - 03/15/2021 4:52 PM EST This exam is auto-finalizing. It's purpose is for storage only. Frances Sorensen APRN IMStephanie FILM LIBRARY ORD ERABLES [place], [place] documented in this encounter Visit Diagnoses Not on filedocumented in this encounter Care Teams Private Branch Exchange Operator Relationship Specialty Start Date End Date Frances Sorensen APRN [address] [place] [address] PCP - General Family Medicine 01/21/19 02/15/22 documented as of this encounter
--- OUTSIDE RECORDS SUMMARY | 2023-12-27 19:44 | XMS_ITS | Encounter Summary ---
Author Organization [facility] [place] [address] Care Team Providers Care Financial Economist Name Role Phone Frances Sorensen APRN Primary Care Provider [phone] Encounter Details Date Type Department Care Team (Late st Contact Info) Description 01/11/2022 Telephone [place] [phone] Marla Bartlett Social History Tobacco Use Types [...] 3:40 PM EDT Office Visit Cardiology at [address] [phone] Rangel Willams MD [facility] [place] [address] documented as of this encounter Visit Diagnoses Not on filedocumented in this encounter Care Teams Financial Economist Relationship Specialty Start Date End Date Frances Sorensen APRN [address] [place] [address] PCP - General Family Medicine 01/21/19 02/15/22 documented as of this encounter
--- OUTSIDE RECORDS SUMMARY | 2023-12-27 19:44 | XMS_ITS | Encounter Summary ---
[place] [address] Care Team Providers Care Penology Teacher Name Role Phone Alistair Ramos MD Primary Care Provider Reason for Visit * Reason Comments Prior Authorization Taltz 80mg/ml SOAJ Encounter Details Date Type Department Care Team (Late st Contact Info) Description 07/06/2022 Specialty [place] [phone] Joy Dick, BUS MONITOR Social History Tobacco Use Types Packs/Day Years [...] encounter Progress Notes * Joy Dick - 07/06/2022 3:59 PM EDT [facility], Medication Prior Authorization Submission Patient: Ghada Ervin Patient : 1990 Patient Address: [facility] [address] [place] [address] (home) Medication Name: TALTZ AUTOINJECTOR (2 PACK) 80 MG/ML SUBCUTANEOUS Medication ID: [id number] Subscriber Insurance: [place] Subscriber Insurance Comment: Fax: Physician: JOHN MENSAH Physician Comment: Sent Via: Fax Roldan: Ref/Case/PA#: Medication Strength Frequency Requested: Taltz 80mg/ml, Inject the contents of one autoinjector (80mg) under the skin once on weeks 4, 6, 8, 10, 12 and once every 4 weeks thereafter Qty/Day Supply: 06/21 New Start: Renewal Diagnosis & ICD-10 Code: Psoriasis L40.9 Patient Notified: No Submission Notes: None Joy Dick 07/06/22 4:04 PM * Joy Dick - 07/06/2022 3:59 PM EDT [facility], Prior Authorization Approval Medication Name: TALTZ AUTOINJECTOR (2 PACK) 80 MG/ML SUBCUTANEOUS Medication ID: [id number] Approval Dates: 07/06/2022 to 08/06/2022 Insurance requirements/notes: None Other Notes: None Case/Reference #: [id number]. Approval notification Received via: Fax Copay: 3.00 Copay assistance: Copay Notes: Insurance mandated Pharmacy: [facility] Fillable at [facility]: Yes Patient Notified: No Pharmacy staff will be reaching out to the patient to inform them of their [facility]. If applicable, a pharmacist will speak with the patient to offer our specialty pharmacy services and to arrange delivery of their medication. Joy Dick 07/07/22 8:39 AM documented in this encounter Plan of Treatment Upcoming Encounters Date Type Department Care Team (Late st Contact Info) Description 01/24/2024 3:40 PM EDT Office Visit Cardiology at [address] [address] Rangel Willams MD [facility] [place] [address] documented as of this encounter Visit Diagnoses Not on filedocumented in this encounter Care Teams Penology Teacher Relationship Specialty Start Date End Date Alistair Ramos MD [address] [place] [address] [facility] [phone] PCP - General Family Medicine 02/16/22 documented as of this encounter
--- OUTSIDE RECORDS SUMMARY | 2023-12-27 19:44 | XMS_ITS | Encounter Summary ---
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 Procedures MRI Brain wo Contrast Ayaan Castro MD [facility] [place] [address] [place] [address] Referral ID Status Reason Start Date Expiration Date Visits Requested Visits Authorized [id number] Specialty Service Requested 01/09/2020 07/07/2020 1 1 Encounter Details Date Type Department Care Team (Late st Contact Info) Description 12/25/2019 1:00 PM EDT TH Visit (TeleHealth) [place] [address] Ayaan Castro MD [facility] [place] [address] 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 female who is 1 year s/p Pipeline embolization of left ICA aneurysms. SHe had a right ICA aneurysm that had been stent-coiled previously. She has been experiencing increased headaches of late as well as some worsening of memory difficulty and attention. She will be reading an instruction manual and forget the first sentence by the time she starts the second. She also reports episodes of palpitation and sudden unexplained increases in blood pressure while at rest. She has started again experiencing transient flashing lights in her eyes. SHe continues to take clopidogrel. She is also consulting with a advanced research programs director. Current Outpatient Medications on File Prior to Visit Medication Sig Dispense Refill ??? hydrOXYzine (Atarax) 25 mg Tablet TAKE ONE TABLET BY MOUTH THREE TIMES A DAY NEEDED ( USE INCOMBINATION WITH NAPROXEN FOR MIGRAINE ) 30 tablet 3 ??? clopidogrel (PLAVIX) 75 mg Tablet Take 1 tablet by mouth daily. 90 tablet 2 ??? pregabalin (LYRICA) 75 mg Capsule 2 times daily. ??? EPINEPHrine 0.3 mg/0.3 mL Auto-Injector INJECT INTO THE MUSCLE ONCE DIRECTED NEEDED 0 ??? ranitidine (ZANTAC) 150 mg Tablet ??? naproxen sodium (ANAPROX) 550 mg Tablet Take 1 tablet by mouth 3 times daily as needed (Use in combination with Hydroxyzine for migraine ). 60 tablet 3 ??? lisinopril (PRINIVIL;ZESTRIL) 5 mg Tablet Take 1 tablet by mouth daily. 90 tablet 3 ??? Miscellaneous Medical Supply Misc Measure blood pressure daily. Record pressure 1 each 0 ??? metoprolol succinate (TOPROL-XL) 25 mg Tablet Sustained Release 24 hr Take 2 tablets by mouth daily. 30 tablet 3 ??? aspirin 81 mg Tablet, Delayed Release (E.C.) Take 1 tablet by mouth daily. 30 tablet 3 ??? ondansetron (ZOFRAN) 4 mg Tablet Take 1 tablet by mouth every 8 hours. 20 tablet 0 ??? pantoprazole (PROTONIX) 40 mg Tablet, Delayed Release (E.C.) Take 2 tablets by mouth daily. 90 tablet 3 ??? tiZANidine (ZANAFLEX) 4 mg Tablet Take 1 tablet by mouth 3 times daily. 30 tablet 0 ??? PARoxetine (PAXIL) 20 mg Tablet Take 20 mg by mouth every morning. ??? PROAIR HFA 90 mcg/actuation HFA Aerosol Inhaler ??? docusate sodium (COLACE) 100 mg Capsule TAKE ONE CAPSULE BY MOUTH TWICE A DAY 1 ??? FLOVENT HFA 220 mcg/actuation HFA Aerosol Inhaler ??? acetaminophen (TYLENOL) 325 mg Tablet Take 2 tablets by mouth every 4 hours as needed for Pain (mild pain). 30 tablet 1 ??? calcium carbonate (TUMS) 200 mg calcium (500 mg) Tablet, Chewable Take 2 tablets by mouth dailyas needed. No current facility-administered medications on file prior to visit. Allergies Allergen Reactions ??? Bee Pollen Anaphylaxis ??? Meperidine Hcl Anaphylaxis and Other (See Comments) flushing, respiratory trouble ??? [place] Other (See Comments) Flu like sx ??? Zoloft [Sertraline] Other (See Comments) Flu like sx Assessment: Ghada Ervin Is 1 year s/p Pipeline stenting. She is overdue for imaging followup of the aneurysms, having missed some previously scheduled appointments. Plan: Cerebral angiogram to assess coiled right ICA and stented left ICA aneurysms -- femoral approach (she found radial very uncomfortable). MRI with moderate sedation Of this 10 minute visit, 10 minutes was spent in counseling and coordination of care. 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
--- OUTSIDE RECORDS SUMMARY | 2023-12-27 19:44 | XMS_ITS | Encounter Summary ---
[place] [address] Care Team Providers Care Glass Loading Equipment Tender Name Role Phone Frances Sorensen KIM Primary Care Provider [phone] Encounter Details Date Type Department Care Team (Late st Contact Info) Description 04/01/2021 [place] [address] Jhonathan Garza MD [facility] [place] [address] Social History Tobacco Use Types Packs/Day Years [...] as of this encounter Miscellaneous Notes * Addendum Note - Darlene Rooney APRN - 04/02/2021 10:22 AM ESTAddended by: DARLENE ROONEY on: 04/02/2021 10:22 AM Modules accepted: Orders * Telephone Encounter - Jhonathan Garza MD - 04/01/2021 7:[address] Garcia from [facility] called about this patient known to us with below problems who has had recurrent right hemispheric infarctions, including February but she left AMA and now again. I wonder if there is a stenosis of the prox R MCA but the artifacts make this difficult to assess. She has been off clopidogrel and this will be resumed and she continues to take aspirin. I will see if I can re-connecther to the people who saw her previously. Patient Active Problem List Diagnosis ??? PFO with atrial septal aneurysm Overview Note: SIOBHAN 09/12/2018: SUMMARY: ?? 1. There is an aneurysmal inter-atrial septum present with a PFO noted by both color and agitated saline injections. 2. Global left ventricular systolic function is mildly reduced. Ejection fraction is estimated to be 50%. There is diffuse hypokinesis present. 3. The right ventricle is normal in size. Right ventricular global systolic function is normal. ??? Aneurysm of ophthalmic artery ??? HFrEF (heart failure with reduced ejection fraction) Overview Note: SIOBHAN on 09/12/18 which showed interatrial aneurysm with PFO and mild reduced EF Left Ventricle: Global left ventricular systolic function is mildly reduced. Ejection fraction is estimated to be 50%. There is diffuse hypokinesis present. ??? Stroke ??? Seizures ??? Patient non adherence ??? Kidney stones ??? Depression ??? Back pain ??? Intracranial aneurysm Overview Note: 05/11/15, Dr Bass 1.?? Diagnostic cerebral angiogram.?? Vessels injected:?? Right internal carotid artery. 2.?? 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 06/01/15 Stage II coil embolization of paraclinoid aneurysm on the right ??? Spondylosis of lumbar region without myelopathy or radiculopathy ??? Chronic migraine without aura without status migrainosus, not intractable ??? Encounter for long-term (current) use of other medications ??? SVT (supraventricular tachycardia) ??? ADD (attention deficit disorder) ??? Scoliosis ??? Heart palpitations Overview Note: Echo: normal heart size and function, trivial MR and TR Loop recorder: SVT rate 212 BPM ??? Chronic pain syndrome ??? Fibromyalgia ??? Migraines documented in this encounter Plan of Treatment Upcoming Encounters Date Type Department Care Team (Late st Contact Info) Description 01/24/2024 3:40 PM EDT Office Visit Cardiology at [address] [address] Rangel Willams MD [facility] [place] [address] documented as of this encounter Visit Diagnoses Diagnosis Aneurysm of ophthalmic artery Cerebral aneurysm, nonruptured Cerebrovascular accident (CVA), unspecified mechanism documented in this encounter Care Teams Glass Loading Equipment Tender Relationship Specialty Start Date End Date Frances Sorensen APRN [address] [place] [address] PCP - General Family Medicine 01/21/19 02/15/22 documented as of this encounter
--- OUTSIDE RECORDS SUMMARY | 2023-12-27 19:44 | XMS_ITS | Encounter Summary ---
Author Organization [facility] [place] [address] Care Team Providers Care Spiral Gear Generator Name Role Phone Frances Sorensen KIM Primary Care Provider [phone] Reason for Visit * Reason Comments Medication Refill Encounter Details Date Type Department Care Team (Late st Contact Info) Description 05/01/2020 [place] [phone] Ayaan Castro MD [facility] [place] [address] Social History Tobacco Use Types Packs/Day Years [...] PM EDT Office Visit Cardiology at [address] [phone] Rangel Willams MD [facility] [place] [address] documented as of this encounter Visit Diagnoses Not on filedocumented in this encounter Care Teams Spiral Gear Generator Relationship Specialty Start Date End Date Frances Sorensen APRN [address] [place] [address] PCP - General Family Medicine 01/21/19 02/15/22 documented as of this encounter
--- OUTSIDE RECORDS SUMMARY | 2023-12-27 19:44 | XMS_ITS | Encounter Summary ---
Author Organization [facility] [place] [address] Care Team Providers Care Supervisory Lifeguard Name Role Phone Frances Sorensen KIM Primary Care Provider [phone] Reason for Visit * Reason Onset Date Comments TeleHealth 12/24/2019 Appt 12/25/19 Encounter Details Date Type Department Care Team (Late st Contact Info) Description 12/24/2019 Telephone [place] [phone] Ayaan Castro MD [facility] DR DIAGNOSTIC [place] [address] TeleHealth (Appt 12/25/19) Social History Tobacco Use Types Packs/Day Years [...] encounter Miscellaneous Notes * Telephone Encounter - Susan Ba CMA - 12/24/2019 11:09 AM EDT Did not speak with patient to review medications and allergies prior to upcoming tele- appointment scheduled with Neurosurgery provider. documented in this encounter Plan of Treatment Upcoming Encounters Date Type Department Care Team (Late st Contact Info) Description 01/24/2024 3:40 PM EDT Office Visit Cardiology at [address] [address] Rangel Willams MD [facility] [place] [address] documented as of this encounter Visit Diagnoses Not on filedocumented in this encounter Care Teams Supervisory Lifeguard Relationship Specialty Start Date End Date Frances Sorensen APRN [address] [place] [address] PCP - General Family Medicine 01/21/19 02/15/22 documented as of this encounter
--- OUTSIDE RECORDS SUMMARY | 2023-12-27 19:44 | XMS_ITS | Encounter Summary ---
[place] [address] Care Team Providers Care Childbirth Educator Name Role Phone Frances Sorensen KIM Primary Care Provider [phone] Reason for Referral * Diagnostic Test (Routine) - Closed Specialty Diagnoses / Procedures Referred By Lang sanches Referred To Contact Radiology Diagnoses Cerebral aneurysm Procedures IR Arteriogram Cerebral Ayaan Castro MD [facility] [place] [address] [place] [address] Referral ID Status Reason Start Date Expiration Date V isits Requested Visits Authorized [id number] Closed Specialty Service Requested 12/25/2019 06/23/2021 1 1 Encounter Details Date Type Department Care Team (Late st Contact Info) Description 12/25/2019 [place] [address] Ayaan Castro MD [facility] [place] [address] Cerebral aneurysm Social History Tobacco Use Types Packs/Day [...] 3:40 PM EDT Office Visit Cardiology at [address] [address] Rangel Willams MD [facility] [place] [address] documented as of this encounter Results * IR Arteriogram Cerebral (05/08/2020 8:52 AM EST) Anatomical Region Laterality Modality X-Ray Angiograph y Impressions 05/08/2020 12:05 PM EST Expected post stent appearance of left ICA with occlusion of paraclinoid aneurysms. I have personally reviewed the image(s) and the resident's interpretation and agree with the findings, Ayaan Castro MD at 05/08/2020 12:05 PM Thank you for letting us participate in the care of this patient. For questions regarding this report, please contact the number below. ? Electronically signed by: Ayaan Castro MD, [facility] ([phone]), at 05/08/2020 12:05 PM Narrative 05/08/2020 12:05 PM EST EXAMINATION: IR ARTERIOGRAM CEREBRAL CLINICAL HISTORY: bilateral ICA aneurysms; pipeline on left; Exam/Procedure requested: cerebral angiogram; femoral access preferred OPERATORS: Dr. Shaun Palacios, Dr. Ayaan Castro. I, Dr. Ayaan Castro, was present for the entire procedure. PROCEDURE: Cerebral angiogram. ANESTHESIA: Moderate sediation with intravenous midazolam and fentanyl EBL: <50 ml CONTRAST: 20 mL Visipaque-320. RADIATION EXPOSURE: A-plane 92 mGy, B-plane ??31 mGy. MATERIALS: Micropuncture set, 5Fr Oakridge sheath, 5Fr ??Vertcatheter. TECHNIQUE: The procedure and its risks were discussed with the ??patient and written informed consent obtained. The patient was brought to the angiography suite. The right groin was sterilely prepped and draped. A small amount of 1% lidocaine was applied at the planned puncture site. Using micropuncture set, the femoral artery was accessed via ultrasound guidance and the ??5Fr sheath placed and flushed. The Vert catheter was placed in the descending aorta over a 3J-wire, flushed, and directed to the ascending aorta. In RUDDY projection the wire was removed and the 5 Singaporean Vert catheter was oriented to the origin of the left common carotid artery. The ??5Fr Vert catheter was placed in the left common carotid artery . Biplane cerebral angiogram was obtained from this position. The catheter was then removed from the body. A femoral roadmap angiogram was performed. Successful Mynx closure of the right common femoral arteriotomy site. There were no immediate complications. The patient was transferred to the IR recovery room in stable condition. FINDINGS: LEFT COMMON CAROTID ROADMAP: The carotid bifurcation appears normal. There is no stenosis. LEFT ??INTERNAL ??CAROTID ARTERY INJECTION: The intracranial left internal carotid artery demonstrates appropriate endothelialization of Pipeline stented paraclinoid distal left internal carotid artery segment. Normal caliber terminal left ICA segment. No evidence of thrombus. Appropriate transit of contrast to the terminal KONRAD, and MCA branches. No evidence of residual or new recurrence of aneurysm. Procedure Note Ayaan Castro MD - 05/08/2020 EXAMINATION: IR ARTERIOGRAM CEREBRAL CLINICAL HISTORY: bilateral ICA aneurysms; pipeline on left;Exam/Procedure requested: cerebral angiogram; femoral access preferred OPERATORS: Dr. Shaun Palacios, Dr. Ayaan Castro. I, Dr. Ayaan Ying, was present for the entire procedure. PROCEDURE: Cerebral angiogram. ANESTHESIA: Moderate sediation with intravenous midazolam and fentanyl EBL: <50 ml CONTRAST: 20 mL Visipaque-320. RADIATION EXPOSURE: A-plane 92 mGy, B-plane 31 mGy. MATERIALS: Micropuncture set, 5Fr Oakridge sheath, 5Fr Vertcatheter. TECHNIQUE: The procedure and its risks were discussed with the patientand written informed consent obtained. The patient was brought to theangiography suite. The right groin was sterilely prepped and draped. A small amount of1% lidocaine was applied at the planned puncture site. Using micropunctureset, the femoral artery was accessed via ultrasound guidance and the 5Fr sheathplaced and flushed. The Vert catheter was placed in the descending aorta over a 3J-wire,flushed, and directed to the ascending aorta. In RUDDY projection the wire wasremoved and the 5 Singaporean Vert catheter was oriented to the origin of the left commoncarotid artery. The 5Fr Vert catheter was placed in the left common carotidartery . Biplane cerebral angiogram was obtained from this position. The catheter was then removed from the body. A femoral roadmap angiogramwas performed. Successful Mynx closure of the right common femoral arteriotomysite. There were no immediate complications. The patient was transferred to theIR recovery room in stable condition. FINDINGS: LEFT COMMON CAROTID ROADMAP: The carotid bifurcation appears normal. Thereis no stenosis. LEFT INTERNAL CAROTID ARTERY INJECTION: The intracranial left internalcarotid artery demonstrates appropriate endothelialization of Pipeline stented paraclinoid distal left internal carotid artery segment. Normal caliberterminal left ICA segment. No evidence of thrombus. Appropriate transit of contrastto the terminal KONRAD, and MCA branches. No evidence of residual or newrecurrence of aneurysm. IMPRESSION Expected post stent appearance of left ICA with occlusion of paraclinoid aneurysms. I have personally reviewed the image(s) and the resident's interpretationand agree with the findings, Ayaan Castro MD at 05/08/2020 12:05 PM Thank you for letting us participate in the care of this patient. Forquestions regarding this report, please contact the number below. Electronically signed by: Ayaan Castro MD, [facility]([phone]), at 05/08/2020 12:05 PM Ayaan Castro MD IMG IR ORDERABLES documented in this encounter Visit Diagnoses Diagnosis Cerebral aneurysm Cerebral aneurysm, nonruptured Cerebral aneurysm Cerebral aneurysm, nonruptured documented in this encounter Care Teams Childbirth Educator Relationship Specialty Start Date End Date Frances Sorensen APRN [address] [place] [address] PCP - General Family Medicine 01/21/19 02/15/22 documented as of this encounter
--- OUTSIDE RECORDS SUMMARY | 2023-12-27 19:44 | XMS_ITS | Encounter Summary ---
[place] [address] Care Team Providers Care Insurance Salesman Name Role Phone Frances Sorensen KIM Primary Care Provider [phone] Encounter Details Date Type Department Care Team (Late st Contact Info) Description 01/04/2022 Telephone [place] [address] Radha Hernández RMA Social History Tobacco Use Types Packs/Day Years [...] Miscellaneous Notes * Telephone Encounter - Radha Hernández RMA - 01/04/2022 11:13 AM EDT Phone call attempt made to pt but number on file is not reachable. Pls update working number @ visit. documented in this encounter Plan of Treatment Upcoming Encounters Date Type Department Care Team (Late st Contact Info) Description 01/24/2024 3:40 PM EDT Office Visit Cardiology at [address] [address] Rangel Willams MD [facility] [place] [address] documented as of this encounter Visit Diagnoses Not on filedocumented in this encounter Care Teams Insurance Salesman Relationship Specialty Start Date End Date Frances Sorensen APRN [address] [place] [address] PCP - General Family Medicine 01/21/19 02/15/22 documented as of this encounter
--- OUTSIDE RECORDS SUMMARY | 2023-12-27 19:44 | XMS_ITS | Encounter Summary ---
[place] [address] Care Team Providers Care Mental Health Tech Name Role Phone Alistair Ramos MD Primary Care Provider [phone] Reason for Visit * Reason Comments Medication Refill Medication Management Encounter Details Date Type Department Care Team (Late st Contact Info) Description 06/08/2022 Specialty [place] [address] Rafael Waggoner [facility] Social History Tobacco Use Types [...] as of this encounter Progress Notes * Rafael Waggoner [facility] - 06/08/2022 11:09 AM EST Specialty Pharmacy Consultation; Rafael Waggoner [facility] Comprehensive Medication Management (CMM): Specialty Consult, Opt Out Ghada A Arcadio Diagnosis: Psoriasis Therapy Start Date: 05/18/2022 Contact in person or via telephone: Telephone Ms. Ghada Ervin is a 31 y.o. (1990) female who was contacted in regard to specialty medication. Spoke with patient regarding TALTZ. A review of the medication therapy was performed. The medication was refilled as scheduled, and all medication related questions and concerns were addressed. The specialty pharmacy staff will follow up with the patient 5-7 days prior to next refill. Is the patient willing to proceed with the Clinical Assessment? No Summary and Recommendations: Ms. Ghada Ervin is a 31 y.o. female who was contacted for a refill and consultation on Taltz for the treatment of psoriasis. Medications, allergies, and medical conditions were reviewed with yesenia. The patient denies any missed doses or side effects from the medication and states her skin is basically clear after her first 2 doses. Dose hold recommendations were reviewed as the patient reported a sinus infection after starting therapy that has since resolved - she did not hold any doses. Storage and administration were reviewed and the patient will be sent a sharps container. Specialty Pharmacy will reach out to the patient for their next refill. Economic Assessment: Patient is agreeable to medication copay: Yes Copay Amount: $3 Day Supply: 28 Date Needed: 06/15/2022 Therapy Assessment: Appropriate Therapy: Yes Current Medication Dosing/Route/Frequency: Taltz 80mg/mL autoinjector Inject the contents of two autoinjectors (160 mg) under the skin once on week 0, then inject the contents of one autoinjector (80mg) once on weeks 2, 4, 6, 8, 10, 12 and once every 4 weeks thereafter Additional equipment/supplies required: yes - sharps container Care Plan Reviewed and Approved by Pharmacist : Yes Problem List: Patient Active Problem List Diagnosis Code ??? Heart palpitations R00.2 ??? Chronic pain syndrome G89.4 ??? Fibromyalgia M79.7 ??? Migraines G43.909 ??? ADD (attention deficit disorder) F98.8 ??? Scoliosis M41.9 ??? SVT (supraventricular tachycardia) I47.1 ??? Encounter for long-term (current) use of other medications Z79.899 ??? Chronic migraine without aura without status migrainosus, not intractable G43.709 ??? Spondylosis of lumbar region without myelopathy or radiculopathy M47.816 ??? Seizures R56.9 ??? Patient non adherence Z91.199 ??? Kidney stones N20.0 ??? Depression F32.A ??? Back pain M54.9 ??? Stroke I63.9 ??? HFrEF (heart failure with reduced ejection fraction) I50.20 ??? 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 Rafael Waggoner RPH 06/08/22 11:24 AM documented in this encounter Plan of Treatment Upcoming Encounters Date Type Department Care Team (Late st Contact Info) Description 01/24/2024 3:40 PM EDT Office Visit Cardiology at [address] [address] Rangel Willams MD [facility] [place] [address] documented as of this encounter Visit Diagnoses Not on filedocumented in this encounter Care Teams Mental Health Tech Relationship Specialty Start Date End Date Alistair Ramos MD [facility] [place] [address] PCP - General Family Medicine 02/16/22 documented as of this encounter
--- OUTSIDE RECORDS SUMMARY | 2023-12-27 19:44 | XMS_ITS | Encounter Summary ---
[place] [address] Care Team Providers Care Portrait Painter Name Role Phone Frances Sorensen KIM Primary Care Provider [phone] Encounter Details Date Type Department Care Team (Late st Contact Info) Description 01/06/2022 Telephone [place] [address] Neha Alejo Social History Tobacco Use Types Packs/Day Years [...] encounter Miscellaneous Notes * Telephone Encounter - Neha Alejo - 01/06/2022 12:03 PM EDT called to hemalatha lynn appt call was picked up and hung up documented in this encounter Plan of Treatment Upcoming Encounters Date Type Department Care Team (Late st Contact Info) Description 01/24/2024 3:40 PM EDT Office Visit Cardiology at [address] [address] Rangel Willams MD [facility] [place] [address] documented as of this encounter Visit Diagnoses Not on filedocumented in this encounter Care Teams Portrait Painter Relationship Specialty Start Date End Date Frances Sroensen APRN [address] [place] [address] PCP - General Family Medicine 01/21/19 02/15/22 documented as of this encounter
--- OUTSIDE RECORDS SUMMARY | 2023-12-27 19:44 | XMS_ITS | Encounter Summary ---
[place] [address] Care Team Providers Care Mud Mixer Helper Name Role Phone EduFrances KIM Primary Care Provider [phone] Encounter Details Date Type Department Care Team (Late st Contact Info) Description 12/26/2019 Tele[place] [phone] Luiza Colbert Social History Tobacco Use Types [...] * Telephone Encounter - Luiza Colbert - 01/01/2020 8:11 AM EDT Patient scheduled for angiogram and MRI with IV sedate for 01/13, mailing confirmation letter. * Telephone Encounter - Luiza Colbert - 12/26/2019 8:34 AM EDT LM to call back to update MRI ?'s and coord IV sedate MRI with angiogram. Ayaan Castro MD Sent: MonDecember 25, 2019 ??1:25 PM To: Luiza Colbert ?? Message IR angio soon, hopefully same day as sedated MRI brain. Orders in documented in this encounter Plan of Treatment Upcoming Encounters Date Type Department Care Team (Late st Contact Info) Description 01/24/2024 3:40 PM EDT Office Visit Cardiology at [address] [address] Rangel Willams MD [facility] [place] [address] documented as of this encounter Visit Diagnoses Not on filedocumented in this encounter Care Teams Mud Mixer Helper Relationship Specialty Start Date End Date Frances Sorensen APRN [address] [place] [address] PCP - General Family Medicine 01/21/19 02/15/22 documented as of this encounter
--- OUTSIDE RECORDS SUMMARY | 2023-12-27 19:44 | XMS_ITS | Encounter Summary ---
[place] [address] Care Team Providers Care Health Information Technician Name Role Phone Frances Sorensen KIM Primary Care Provider [phone] Reason for Referral * Diagnostic Test (Routine) - Closed Specialty Diagnoses / Procedures Referred By Lang sanches Referred To Contact Cardiology Diagnoses Pneumonia due to COVID-19 virus Bronchitis Procedures Mobile Nicolas Yung MD [address] [place] [address] [facility] [place] [address] Referral ID Status Reason Start Date Expiration Date V isits Requested Visits Authorized [id number] Closed Specialty Service Requested 03/01/2021 03/01/2022 1 1 Reason for Visit * Diagnostic Test (Routine) - Closed Specialty Diagnoses / Procedures Referred By Lang t Referred To Contact Cardiology Diagnoses Pneumonia due to COVID-19 virus Bronchitis Procedures Mobile Nicolas Yung MD [address] [place] [address] [facility] [place] [address] Referral ID Status Reason Start Date Expiration Date V isits Requested Visits Authorized [id number] Closed Specialty Service Requested 03/01/2021 03/01/2022 1 1 Encounter Details Date Type Department Care Team (Latest Contact Info) Description 03/01/2021 1:50 PM EST - 03/01/2021 11:59 PM EST Hospital Encounter [place] [address] Nicolas Dunbar MD [address] [place] [address] Pneumonia due to COVID-19 virus; Bronchitis Discharge Disposition: Home Social History Tobacco Use Types Packs/Day Years [...] on file documented as of this encounter Medications at Time of Discharge Medication Sig Dispensed Refills Start Date End Date pregabalin (LYRICA) 150 mg Capsule Take 150 mg by mouth 2 times daily. 02/25/2021 hydrOXYzine (Atarax) 25 mg Tablet TAKE ONE TABLET BY MOUTH THREE TIMES A DAY NEEDED ( USE IN COMBINATION WITH NAPROXEN FOR MIGRAINE ) 30 tablet 3 06/14/2019 clopidogrel (PLAVIX) 75 mg Tablet Take 1 tablet by mouth daily. 90 tablet 2 01/23/2019 EPINEPHrine 0.3 mg/0.3 mL Auto-Injector INJECT INTO THE MUSCLE ONCE DIRECTED NEEDED 0 12/12/2018 naproxen sodium (ANAPROX) 550 mg Tablet Take 1 tablet by mouth 3 times daily as needed (Use in combination with Hydroxyzine for migraine ). 60 tablet 3 01/15/2019 lisinopril (PRINIVIL;ZESTRIL) 5 mg Tablet Take 1 tablet by mouth daily. 90 tablet 3 12/30/2018 metoprolol succinate (TOPROL-XL) 25 mg Tablet Sustained Release 24 hr Take 2 tablets by mouth daily. 30 tablet 3 10/09/2018 docusate sodium (COLACE) 100 mg Capsule TAKE ONE CAPSULE BY MOUTH TWICE A DAY 1 10/31/2017 acetaminophen (TYLENOL) 325 mg Tablet Take 2 tablets by mouth every 4 hours as needed for Pain (mild pain). 30 tablet 1 05/12/2015 hydrOXYchloroQUINE (Plaquenil) 200 mg Tablet Take 200 mg by mouth daily. 02/24/2021 pregabalin (LYRICA) 75 mg Capsule 2 times daily. 01/10/2019 Miscellaneous Medical Supply [facility] Measure blood pressure daily. Record pressure 1 each 10/24/2018 ondansetron (ZOFRAN) 4 mg Tablet Take 1 tablet by mouth every 8 hours. 20 tablet 09/12/2018 pantoprazole (PROTONIX) 40 mg Tablet, Delayed Release (E.C.) Take 2 tablets by mouth daily. 90 tablet 3 09/12/2018 PARoxetine (PAXIL) 20 mg Tablet Take 20 mg by mouth every morning. PROAIR HFA 90 mcg/actuation HFA Aerosol Inhaler 02/02/2018 FLOVENT HFA 220 mcg/actuation HFA Aerosol Inhaler 02/02/2018 aspirin 81 mg Tablet, Delayed Release (E.C.) Take 1 tablet by mouth daily. 30 tablet 3 09/12/2018 04/29/2021 calcium carbonate (TUMS) 200 mg calcium (500 mg) Tablet, Chewable Take 2 tablets by mouth daily as needed. 2 documented as of this encounter Plan of Treatment Upcoming Encounters Date Type Department Care Team (Late st Contact Info) Description 01/24/2024 3:40 PM EDT Office Visit Cardiology at [address] [phone] Rangel Willams MD [facility] [place] [address] documented as of this encounter Procedures Procedure Name Priority Date/Time Associated Diagnosis Comments ECHO COMPLETE Routine 03/01/2021 2:11 PM EST Pneumonia due to COVID-19 virus Bronchitis documented in this encounter Results * ECHO COMPLETE (03/01/2021 2:11 PM EST) EF 58 HEARTLAB SYSTEM Anatomical Region Laterality Modality Other 03/01/2021 Narrative 03/01/2021 3:03 PM EST Amended Report Procedure: ?Transthoracic Echocardiogram Patient: ?TERESA AugustinDonna ?(Age): 1990(30y) Med Rec#: ? [id number] ?Sex: ?F ? Site Loc: ? [facility] ??Ht / Wt: ??157.48(cm)/115. Pt. Loc: ?Adult Floor ? BSA: ?2.12 Study Date: ?? 03/01/2021 ?Pt. Type: Inpatient Tape: ? Referring: Nicolas Dunbar Referring: [facility](Med Rec) Reading: Tristen Paul ([id number]) Reading: Denise Saenz ([id number]) Purchaser: [employer] Diagnosis: *Other viral pneumonia (J12.89) *Bronchitis, not specified as acute or chronic (J40) BP: ? 121/77 SUMMARY: 1. Poor endocardial definition. 2. Grossly normal study. 3. Compared with the prior TTE of 09/06/2018, the estimated LVEF is higher. Findings ? : Study Quality: ? Technically limited Left Ventricle: ? The left ventricular chamber size is normal. ?Left ventricular wall thickness is normal. ?No ventricular septal defect is visualized. ?There is normal global left ventricular systolic function. ?The quantitative left ventricular ejection fraction by biplane Marcano's method is 58%. ?There are no left ventricular segmental wall motion abnormalities. ?Left ventricular diastolic function is normal. ?Doppler assessment is consistent with normal left sided filling pressure. Left Atrium: ? The left atrium is normal in size. Right Ventricle: ? The right ventricle is normal in size. ?Right ventricular global systolic function is normal. ?The estimated pulmonary artery systolic pressure is 26 mmHg. ?The estimated right atrial pressure is 8 mmHg. Right Atrium: ? The right atrium is normal in size. Aortic Valve: ? The aortic valve is tricuspid. ?Systolic excursion of the aortic valve is normal. ?There is no evidence of aortic valve stenosis. ?There is no evidence of aortic regurgitation. Mitral Valve: ? The mitral valve leaflets appear normal. ?There is mild (1+/4+) mitral regurgitation present. Tricuspid Valve: ? The tricuspid valve leaflets are morphologically normal. ?There is mild (1+/4+) tricuspid regurgitation present. Pulmonic Valve: ? The pulmonic valve is probably normal. ?There is trace pulmonic regurgitation present. Pericardium: ? The pericardium appears normal and there is no evidence of a pericardial effusion. Aorta: ? The aortic root is normal in size. ?The ascending aorta is normal in size. ?The aortic arch is normal in size. Pulmonary Artery: ? The main pulmonary artery is probably normal in size. Venous: ? There is a greater than 50% respiratory change in the inferior vena cava dimension. Misc: ? There is no hemodynamically significant valve disease. ?See remainder of report for additional findings. ?Two-dimensional echo, spectral Doppler and color Doppler performed. Chambers 2D ?Value ?Units (Range) ? IVSd (2D) ? 1.03 ? cm ? LVPWd (2D) ?1.01 ? cm ? IVS:LVPW ratio (2D) 1.02 ? ratio ? LVIDd (2D) ?5.11 ? cm ? LVIDs (2D) ?3.57 ? cm ? LV FS (2D) ?30.25 ?% ? EF Teichholz (2D) ?? 57.27 ?% ? Ascending Ao ?2.71 ? cm (2 - 3.5) ? Volumes/Mass ?Value ?Units (Range) ? LV ESV SP 4CH (MOD) 63.38 ?ml ? LV ESV SP 2CH (MOD) 69.42 ?ml ? LV EDV BP ? 168.2 ?ml ? LV ESV BP ? 71.27 ?ml ? BP EF (MOD) ? 58 ? % ? Diastolic/Systolic Function ?Value ?Units (Range) ? MV E-wave Vmax ?0.96 ? m/sec ? MV deceleration bahw645.55 ? msec ? MV A-wave Vmax ?0.6 ?m/sec ? MV E:A ratio ?1.6 ?ratio ? LV septal e' Vmax ?? 0.1 ?m/sec ? LV lateral e' Vmax ??0.11 ? m/sec ? LV E:e' septal ratio9.28 ? ratio ? LV E:e' lateral rati8.36 ? ratio ? Aortic Valve ?Value ?Units (Range) ? AV Vmax ? 1.26 ? m/sec ? AV VTI ?28.38 ?cm ? AV peak gradient ?6.4 ?mmHg ? AV mean gradient ?3.79 ? mmHg ? LVOT diameter ? 2.02 ? cm ? LVOT Vmax ? 0.72 ? m/sec ? LVOT VTI ?16.71 ?cm ? CO LVOT ? 3.05 ? l/min ? CHYNA (continuity Vmax1.83 ? cm2 ? CHYNA (continuity Vmax0.87 ? cm2/m2 ? CHYNA (continuity VTI)0.89 ? cm2/m2 ? Mitral Valve ?Value ?Units (Range) ? MV VTI ?25.35 ?cm ? MV PHT ?54.68 ?msec ? MVA (PHT) ? 4.02 ? cm2 ? Tricuspid Valve ?Value ?Units (Range) ? TR Vmax ? 2.14 ? m/sec ? TR peak gradient ?18 ? mmHg ? RAP ? 8 ?mmHg ? RVSP ?26 ? mmHg ? Pulmonic Valve/Qp:Qs ?Value ?Units (Range) ? PV Vmax ? 0.77 ? m/sec ? PV VTI ?21.09 ?cm ? PV peak gradient ?2.4 ?mmHg ? PV mean gradient ?1.28 ? mmHg ? RVOT Vmax ? 0.51 ? m/sec ? RVOT VTI ?13.73 ?cm ? RVOT peak gradient ??1.03 ? mmHg ? PV acceleration qlmd554.36 ? msec ? PV ejection time ?397.81 ? msec ? PV AT:ET ?0.27 ? ratio ? This report has been electronically signed by: Denise Saenz MD ? 03/01/2021 15:02:29 Images reviewed and interpretation verified [facility] Cardiac Ultrasound Laboratory Procedure Note Tristen Paul MD / Letty, Denise Babcock MD - 03/01/2021 Amended Report Procedure: Transthoracic Echocardiogram Patient: TERESA Strong BEV(Age): 1990(30y) Med Rec#: [id number] Sex: F Site Loc: [facility] Ht / Wt: 157.48(cm)/115. Pt. Loc: Adult Floor BSA: 2.12 Study Date: 03/01/2021 Pt. Type: Inpatient Tape: Referring: Nicolas Dunbar Referring: [facility] Reading: Tristen Paul ([id number]) Reading: Denise Saenz ([id number]) Purchaser: [employer] Diagnosis: *Other viral pneumonia (J12.89) *Bronchitis, not specified as acute or chronic (J40) BP: 121/77 SUMMARY: 1. Poor endocardial definition. 2. Grossly normal study. 3. Compared with the prior TTE of 09/06/2018, the estimated LVEF is higher. Findings : Study Quality: Technically limited Left Ventricle: The left ventricular chamber size [...] consistent with normal left sided filling pressure. Left Atrium: The left atrium is normal in size. Right Ventricle: The right ventricle is normal in size. Right ventricular global systolic function is normal. The estimated pulmonary artery systolic pressure is 26 mmHg. The estimated right atrial pressure is 8 mmHg. Right Atrium: The right atrium is normal in size. Aortic Valve: The aortic valve is tricuspid. Systolic excursion of the aortic valve is normal. There is no evidence of aortic valve stenosis. There is no evidence of aortic regurgitation. Mitral Valve: The mitral valve leaflets appear normal. There is mild (1+/4+) mitral regurgitation present. Tricuspid Valve: The tricuspid valve leaflets are morphologically normal. There is mild (1+/4+) tricuspid regurgitation present. Pulmonic Valve: The pulmonic valve is probably normal. There is trace pulmonic regurgitation present. Pericardium: The pericardium appears normal and there is no evidence of a pericardial effusion. Aorta: The aortic root is normal in size. The ascending aorta is normal in size. The aortic arch is normal in size. Pulmonary Artery: The main pulmonary artery is probably normal in size. Venous: There is a greater than 50% respiratory change in the inferior vena cava dimension. Misc: There is no hemodynamically significant valve disease. See remainder of report for additional findings. Two-dimensional echo, spectral Doppler and color Doppler performed. Chambers 2D Value Units (Range) IVSd (2D) 1.03 cm LVPWd (2D) 1.01 cm IVS:LVPW ratio (2D) 1.02 ratio LVIDd (2D) 5.11 cm LVIDs (2D) 3.57 cm LV FS (2D) 30.25 % EF Teichholz (2D) 57.27 % Ascending Ao 2.71 cm (2 - 3.5) Volumes/Mass Value Units (Range) LV ESV SP 4CH (MOD) 63.38 ml LV ESV SP 2CH (MOD) 69.42 ml LV EDV BP 168.2 ml LV ESV BP 71.27 ml BP EF (MOD) 58 % Diastolic/Systolic Function Value Units (Range) MV E-wave Vmax 0.96 m/sec MV deceleration vxaf661.55 msec MV A-wave Vmax 0.6 m/sec MV E:A ratio 1.6 ratio LV septal e' Vmax 0.1 m/sec LV lateral e' Vmax 0.11 m/sec LV E:e' septal ratio9.28 ratio LV E:e' lateral rati8.36 ratio Aortic Valve Value Units (Range) AV Vmax 1.26 m/sec AV VTI 28.38 cm AV peak gradient 6.4 mmHg AV mean gradient 3.79 mmHg LVOT diameter 2.02 cm LVOT Vmax 0.72 m/sec LVOT VTI 16.71 cm CO LVOT 3.05 l/min CHYNA (continuity Vmax1.83 cm2 CHYNA (continuity Vmax0.87 cm2/m2 CHYNA (continuity VTI)0.89 cm2/m2 Mitral Valve Value Units (Range) MV VTI 25.35 cm MV PHT 54.68 msec MVA (PHT) 4.02 cm2 Tricuspid Valve Value Units (Range) TR Vmax 2.14 m/sec TR peak gradient 18 mmHg RAP 8 mmHg RVSP 26 mmHg Pulmonic Valve/Qp:Qs Value Units (Range) PV Vmax 0.77 m/sec PV VTI 21.09 cm PV peak gradient 2.4 mmHg PV mean gradient 1.28 mmHg RVOT Vmax 0.51 m/sec RVOT VTI 13.73 cm RVOT peak gradient 1.03 mmHg PV acceleration gury595.36 msec PV ejection time 397.81 msec PV AT:ET 0.27 ratio This report has been electronically signed by: Denise Saenz MD 03/01/2021 15:02:29 Images reviewed and interpretation verified [facility] Cardiac Ultrasound Laboratory Nicolas Dunbar MD ECHO ORDERABLES documented in this encounter Visit Diagnoses Diagnosis Pneumonia due to COVID-19 virus Bronchitis Bronchitis, not specified as acute or chronic documented in this encounter Care Teams Health Information Technician Relationship Specialty Start Date End Date Frances Sorensen APRN [address] [place] [address] PCP - General Family Medicine 01/21/19 02/15/22 documented as of this encounter
--- OUTSIDE RECORDS SUMMARY | 2023-12-27 19:44 | XMS_ITS | Encounter Summary ---
[place] [address] Care Team Providers Care Display Designer Name Role Phone Frances Sorensen KIM Primary Care Provider [phone] Encounter Details Date Type Department Care Team (Late st Contact Info) Description 04/20/2021 Telephone [place] [address] Gilda Fitzgerald Social History Tobacco Use Types [...] encounter Miscellaneous Notes * Telephone Encounter - Bonnie Izaguirre RN - 04/20/2021 11:28 AM EST Caller: Ghada Reason for call: wanting f/u with us since new stroke Plan: Discussed that Ghada should see Neurology for f/u after stroke and she said that her PCP can write that referral. Also explained that I will send message to our providers to see if we can see her or want to wait until f/u with Neurology. * Telephone Encounter - Gilda Fitzgerald - 04/20/2021 11:12 AM EST Caller: Patient Best number to reach caller: [phone] Reason for call: Patient calling to advise she had another stroke, diagnosed at [facility]. She is requesting an appointment in follow up to this in order to apply for disability Recent Surgery?: No If before 4:00 pm: Inform caller that the typical expectation for a call back is within 1-2 hours. documented in this encounter Plan of Treatment Upcoming Encounters Date Type Department Care Team (Late st Contact Info) Description 01/24/2024 3:40 PM EDT Office Visit Cardiology at [address] [address] Rangel Willams MD [facility] [place] [address] documented as of this encounter Visit Diagnoses Not on filedocumented in this encounter Care Teams Display Designer Relationship Specialty Start Date End Date Frances Sorensen APRN [address] [place] [address] PCP - General Family Medicine 01/21/19 02/15/22 documented as of this encounter
--- OUTSIDE RECORDS SUMMARY | 2023-12-27 19:44 | XMS_ITS | Encounter Summary ---
Author Organization [facility] [place] [address] Care Team Providers Care Safety Administrator Name Role Phone Frances Sorensen AUTOMATIC EDGER Primary Care Provider [phone] Encounter Details Date Type Department Care Team (Late st Contact Info) Description 07/14/2019 11:40 PM EDT Ancillary Procedure [place] [phone] Derrek Naidu MD [facility] [place] [address] Social History Tobacco Use Types Packs/Day Years [...] PM EDT Office Visit Cardiology at [address] [phone] Rangel Willams MD [facility] [place] [address] documented as of this encounter Procedures Procedure Name Priority Date/Time Associated Diagnosis Comments FILM LIBRARY STORAGE ONLY CT CHEST ABDOMEN PELVIS Routine 07/14/2019 11:33 PM EDT documented in this encounter Results * Film Library- Storage Only CT Chest Abdomen Pelvis (07/14/2019 11:33 PM EDT) Narrative TARI - 07/14/2019 11:33 PM EDT This exam is auto-finalizing. It's purpose is for storage only. Derrek Naidu MD IMStephanie FILM LIBRARY ORDERABLES Performing Organization Address City/State/[facility] Co de Phone Number [place], [place] documented in this encounter Visit Diagnoses Not on filedocumented in this encounter Care Teams Safety Administrator Relationship Specialty Start Date End Date Frances Sorensen APRN [address] [place] [address] PCP - General Family Medicine 01/21/19 02/15/22 documented as of this encounter
--- OUTSIDE RECORDS SUMMARY | 2023-12-27 19:44 | XMS_ITS | Encounter Summary ---
[place] [address] Care Team Providers Care Industrial Cleaning Technician Name Role Phone Frances Sorensen KIM Primary Care Provider [phone] Encounter Details Date Type Department Care Team (Late st Contact Info) Description 07/28/2021 [place] [address] Jhonathan Garza MD [facility] [place] [address] Social History Tobacco Use Types Packs/Day Years [...] encounter Miscellaneous Notes * Telephone Encounter - Jhonathan Garza MD - 07/28/2021 11:[address] Islas from [facility] called for possible transfer to the [facility] level. We have no capacity at thatlevel or intermediate level. He said he will look elsewhere when I told him this. We had no head imaging including the CT scan and the CTA she had there. documented in this encounter Plan of Treatment Upcoming Encounters Date Type Department Care Team (Late st Contact Info) Description 01/24/2024 3:40 PM EDT Office Visit Cardiology at [address] [address] Rangel Willams MD [facility] [place] [address] documented as of this encounter Visit Diagnoses Not on filedocumented in this encounter Care Teams Industrial Cleaning Technician Relationship Specialty Start Date End Date Frances Sorensen APRN [address] [place] [address] PCP - General Family Medicine 01/21/19 02/15/22 documented as of this encounter
--- OUTSIDE RECORDS SUMMARY | 2023-12-27 19:44 | XMS_ITS | Encounter Summary ---
Author Organization [facility] [place] [address] Care Team Providers Care Pick Out Hand Name Role Phone Frances Sorensen APRN Primary Care Provider [phone] Encounter Details Date Type Department Care Team (Late st Contact Info) Description 04/01/2021 4:50 PM EST Ancillary [place] [address] Frances Sorensen APRN [address] [place], [place] [address] Social History Tobacco Use Types Packs/Day Years [...] 3:40 PM EDT Office Visit Cardiology at [address] [phone] Rangel Willams MD [facility] [address] [place], [place] [id number] documented as of this encounter Procedures Procedure Name Priority Date/Time Associated Diagnosis Comments FILM LIBRARY STORAGE ONLY MR HEAD Routine 04/01/2021 4:48 PM EST documented in this encounter Results * Film Library- Storage Only MR Head (04/01/2021 4:48 PM EST) Narrative TARI - 04/01/2021 4:48 PM EST This exam is auto-finalizing. It's purpose is for storage only. Frances Sorensen APRN Stephanie FILM LIBRARY ORD ERABLES [place], [place] documented in this encounter Visit Diagnoses Not on filedocumented in this encounter Care Teams Pick Out Hand Relationship Specialty Start Date End Date Frances Sorensen APRN [address] [place] [address] PCP - General Family Medicine 01/21/19 02/15/22 documented as of this encounter
--- OUTSIDE RECORDS SUMMARY | 2023-12-27 19:44 | XMS_ITS | Encounter Summary ---
Author Organization [facility] [place] [address] Care Team Providers Care Superintendent Local Name Role Phone Alistair Ramos MD Primary Care Provider [phone] Encounter Details Date Type Department Care Team (Late st Contact Info) Description 03/23/2022 Refill Dermatology at [address] [address] Johnnie Tompkins MD [facility] [address] [place] [address] Social History Tobacco Use Types Packs/Day Years [...] PM EDT Office Visit Cardiology at [address] [address] Rangel Willams MD [facility] [address] documented as of this encounter Visit Diagnoses Not on filedocumented in this encounter Care Teams Superintendent Local Relationship Specialty Start Date End Date Alistair Ramos MD [address] [place] [address] PCP - General Family Medicine 02/16/22 documented as of this encounter
--- OUTSIDE RECORDS SUMMARY | 2023-12-27 19:44 | XMS_ITS | Encounter Summary ---
Author Organization [facility] [place] [address] Care Team Providers Care Sales Ambassador Name Role Phone Alistair Ramos MD Primary Care Provider [phone] Reason for Referral * Consultation (Routine) - Closed Specialty Diagnoses / Procedures Referred By Lang sanches Referred To Contact Dermatology Diagnoses Psoriasis Dawson Cox PA [address] [place] [address] [facility] Dermatology [address] [place] [address] Referral ID Status Reason Start Date Expiration Date V isits Requested Visits Authorized [id number] Closed Consult, Test & Treat PCP Updated and/or Approved 02/16/2022 02/16/2023 6 6 Encounter Details Date Type Department Care Team (Late st Contact Info) Description 02/16/2022 Transcribe Orders eDH Incoming Referrals [phone] Dawson Cox PA [address] [place] [address] Psoriasis Social History Tobacco Use Types Packs/Day [...] 3:40 PM EDT Office Visit Cardiology at [address] [address] Rangel Willams MD [facility] [place] [address] Scheduled Referrals Name Type Priority Associated Diagnoses Order Schedule Referral to Dermatology Outpatient Referral Routine Psoriasis Ordered: 02/16/2022 documented as of this encounter Visit Diagnoses Diagnosis Psoriasis Other psoriasis documented in this encounter Care Teams Sales Ambassador Relationship Specialty Start Date End Date Alistair Ramos MD [address] [place] [address] PCP - General Family Medicine 02/16/22 documented as of this encounter
--- OUTSIDE RECORDS SUMMARY | 2023-12-27 19:44 | XMS_ITS | Encounter Summary ---
Author Organization [facility] [place] [address] Care Team Providers Care Strand Galvanizer Name Role Phone Frances Sorensen KIM Primary Care Provider [phone] Encounter Details Date Type Department Care Team (Late st Contact Info) Description 08/19/2021 3:20 PM EDT Office Visit Cardiology at [address] [address] Lewis Lopes MD [facility] [place] [address] Heart palpitations; HFrEF (heart failure with reduced ejection fraction); PFO with atrial septal aneurysm; Cerebrovascular accident (CVA), unspecified mechanism; SVT (supraventricular tachycardia) Social History Tobacco Use Types Packs/Day Years [...] Sign Reading Time Taken Comments Blood Pressure 127/67 08/19/2021 3:24 PM EDT Pulse 81 08/19/2021 3:24 PM EDT Temperature - - Respiratory Rate - - Oxygen Saturation 95% 08/19/2021 3:24 PM EDT Inhaled Oxygen Concentration - - Weight 123.8 kg (273 lb) 08/19/2021 3:24 PM EDT Height 157.5 cm (5' 2) 08/19/2021 3:24 PM EDT Body Mass Index 49.93 08/19/2021 3:24 PM EDT documented in this encounter Progress Notes * Lewis Lopes MD - 08/19/2021 3:20 PM EDT Images from the original note were not included[place] [address] [address] CARDIOLOGY OUTPATIENT CLINIC VISIT [facility] Ghada Ervin 08/19/2021 Referring Providers: KIM Toure Abby, APRN [address] [place] [address] CHIEF COMPLAINT: I had pneumonia CARDIAC-RELEVANT PROBLEM LIST: 1. PFO with ASA TTE 09/06/2018 1. The [...] size. Right ventricular globalsystolic function is normal. 2. Right paraclinoid aneurysm coiled 2014 [place] Occular field defect S/P Coiling S/P Stroke Walks with cane Continues with visual loss 3. 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 chronic pain 6. Fibromyalgia 7. ADD 8. Migraine 9. Scoliosis 10. SVT 11. lumbar spondylosis. 12. Cigarette use 13. 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 female patient presenting for an outpatient cardiology visit. Ghada is a pleasant 30-year-old lady who is here for evaluation after recent stroke. She was recently admitted in July 2021 to [facility] in [facility] with strokelike symptoms. Her presentation was identical to prior presentations. See notes from [facility]. Acute stroke ruled out. She was conservatively managed. In Dec 2020 she presented with facial [...] frontal and R occipitial lobe. [place] ?? All MRI Findings are ipsilateral to coiling ?? Most recent episode occurred with patient off all anti-platelet agents Social History High School: [employer]: 20 credits towards associate degree Technically [...] HISTORY: Past Surgical History: Procedure Laterality Date ??? ABLATION OF DYSRHYTHMIC FOCUS AV node, SVT ??? BACK SURGERY Tejeda rods ??? CREATED BY INTERFACE ARTHRODESIS, POSTERIOR , SPINAL DEFORMITY,7-12 SEGMENTS / LEG/T10/T11/T12/T3/T4/T5/T6/T7/T8/T9 Procedure Date: 06/19/2007 ??? CREATED BY INTERFACE AUTOGRAFT FOR SPINE,LOCAL,SAME INCISION Procedure Date: 06/19/2007 ??? CREATED BY INTERFACE Entered not Verified Procedure Date: 04/22/2010 ??? CREATED BY INTERFACE POSTERIOR SEGMENTAL INSTRUMENTATION; 7-12 VERTEBRAL SEG. / T10/T11/T12/T3/T4/T5/T6/T7/T8/T9 Procedure Date: 06/19/2007 ??? IR ARTERIOGRAM CEREBRAL 10/31/2018 IR Arteriogram Cerebral 10/31/[address] [facility] INTERVENTIONL RAD ??? IR ARTERIOGRAM CEREBRAL 05/08/2020 IR Arteriogram Cerebral 05/08/[address] [facility] INTERVENTIONL RAD ??? IR EMBOLIZATION INTRACRANIAL 01/21/2019 IR Embolization Intracranial 01/21/[address] [facility] INTERVENTIONL RAD ??? LITHOTRIPSY kidney stones ? ? PRG SIOBHAN REAL TIME IMG 2D W PRB IMG ACQUIS I&R N/A 09/12/2018 TRANSESOPHAGEAL ECHOCARDIOGRAM (WRVU 2.55) performed by Ze Freeman MD at [facility] MAIN OR ??? PRO PERM OCCLUSION/EMBOLIZATION, PERCUT, EPIC WILLOW SPECIALIST N/A 01/21/2019 @TRANSCATHETER OCCLUSION/EMBOLIZATION FOR TUMOR DESTRUCTION performed by Ayaan Castro MD at [facility] JASMEET ??? TUBAL LIGATION SOCIAL HISTORY: reports that she has been smoking cigarettes. She has been smoking about 0.00 packsper day for the past 8.00 years. She has never used smokeless tobacco. She reports previous alcoholuse. She reports current drug use. Frequency: 2.00 times per week. Drug: Marijuana. FAMILY HISTORY: family history includes Coronary Artery Disease in her maternal grandmother and paternal grandmother; Depression in her father and mother; Diabetes in her father, maternal grandfather, paternal aunt, paternal grandmother, and paternal uncle; Hypertension in her father, maternal grand mother, paternal aunt, paternal grandfather, and paternal uncle; Migraines in her brother, maternalaunt, maternal grandmother, and mother. MEDICATIONS: Current Outpatient Medications Medication Sig Dispense Refill ??? OLANZapine (ZyPREXA) 15 mg Tablet Take 15 mg by mouth daily. ??? hydrOXYchloroQUINE (Plaquenil) 200 mg Tablet Take 200 mg by mouth daily. ??? Vyvanse 40 mg Capsule Take 40 mg by mouth daily. ??? pregabalin (LYRICA) 150 mg Capsule Take 150 mg by mouth 2 times daily. ??? aspirin EC 81 mg Tablet, Delayed Release (E.C.) Take 1 tablet by mouth daily. 30 tablet 3 ??? hydrOXYzine (Atarax) 25 mg Tablet TAKE [...] THE MUSCLE ONCE DIRECTED NEEDED 0 ??? naproxen sodium (ANAPROX) 550 mg Tablet Take 1 tablet by mouth 3 times daily as needed (Use in combination with Hydroxyzine for migraine ). 60 tablet 3 ??? lisinopril (PRINIVIL;ZESTRIL) 5 mg Tablet Take 1 tablet by mouth daily. 90 tablet 3 ??? Miscellaneous Medical Supply [facility] Measure blood pressure daily. Record pressure 1 [...] by mouth daily. 90 tablet 3 ??? PARoxetine (PAXIL) 20 mg Tablet Take [...] the medical record: Bee pollen, Meperidine hcl, Munday, and Zoloft [sertraline] PHYSICAL EXAMINATION: Vitals: Patient Vitals for the past 24 hrs: Pulse BP SpO2 08/19/21 1524 81 127/67 95 % Constitutional: Normal general appearance, no distress [...] outside records, laboratory data, and imaging studies. 1. LABS: No results for input(s): WBC, HGB, HCT, PLATELET, NA, K, BUN, CREATININE, HA1C, ALT, CHLPL, INR in the last 720 hours. Lab Results Component Value Date CHLPL 130 09/06/2018 HDL 36 09/06/2018 CHOLHDL 3.6 09/06/2018 TRIG 173 09/06/2018 LDLCHOL 59 09/06/2018 LDLDIRECT 70 09/06/2018 ASSESSMENT/PLAN: Ghada Ervin is a 30 y.o. female patient presenting for an outpatient cardiology visit for thefollowing cardiovascular conditions: Heart palpitations HFrEF (heart failure with reduced ejection fraction) PFO with atrial septal aneurysm Cerebrovascular accident (CVA), unspecified mechanism SVT (supraventricular tachycardia) 1. Recurrent CVA. Ghada is a pleasant 30-year-old lady who is here for evaluation after recent stroke. She was recently admitted in July 2021 to [facility] in [facility] with strokelike symptoms. Her presentation was identical to prior presentations. See notes from [facility]. Acute stroke ruled out. She was conservatively managed. In Dec 2020 she presented with facial droop numbness and weakness of the left side. She was not taking aspirin nor Plavix at that time. She underwent a thorough evaluation consisting of a CT scan and brain MRI, and evaluation by her neurologist Dr. Grimes and Dr. Fierro. MRI per Dr. Grimes showed areas of infarction which was subacute and unchanged. An outpatient follow-up was arranged with neurology. Aspirin and Plavix were restarted. She was successfully discharged. Today she feels she has largely recovered. Her numbness has resolved. Her facial droop has also resolved. Her weakness on theleft side is also back at baseline. She was also evaluated for PFO closure 3 years ago, at that time it was felt that these were embolic strokes likely from the prior coiling. Aspirin and Plavix compliance was strongly recommended. Of note, this is similar to her 2018 stroke syndrome where all MRI findings were ipsilateral to callingand that episode also occurred when patient was off of all antiplatelet agents. She has significant risk factors of hypertension, smoking as well as IVDA currently on methadone. Istrongly emphasized quitting smoking. She is going to get nicotine patches from her primary care physician this week. I once again emphasized the importance of aspirin and Plavix compliance given thecoiling on her right side. 2. Smoking. I strongly emphasized the importance of quitting smoking immediately. 3. Medication compliance. I once again emphasized the importance of aspirin and Plavix compliance given the coiling on her right side. I provided prescription for aspirin. She has refills for Plavix. Thank you for the opportunity to take care of Ghada Ervin. Sincerely, Dr. Lewis Lopes MD [facility] Cad Detailer Interventional Cardiology 08/19/2021 CC: Frances Sorensen APRN documented in this encounter Plan of Treatment Upcoming Encounters Date Type Department Care Team (Late st Contact Info) Description 01/24/2024 3:40 PM EDT Office Visit Cardiology at [address] [address] Rangel Willams MD [facility] [place] [address] documented as of this encounter Procedures Procedure Name Priority Date/Time Associated Diagnosis Comments EKG 12-LEAD Routine 08/19/2021 3:30 PM EDT Heart palpitations HFrEF (heart failure with reduced ejection fraction) PFO with atrial septal aneurysm Cerebrovascular accident (CVA), unspecified mechanism SVT (supraventricular tachycardia) documented in this encounter Results * EKG 12 Lead (08/19/2021 3:30 PM EDT) Ventricular rate 69 BPM MUSE SYSTEM Atrial Rate 69 BPM MUSE SYSTEM P-R Interval 138 ms MUSE SYSTEM QRS Duration 102 ms MUSE SYSTEM Q-T Interval 396 ms MUSE SYSTEM QTC Calculated (Bezet) 424 ms MUSE SYSTEM Calculated P Marshall -2 degrees MUSE SYSTEM Calculated R Marshall 13 degrees MUSE SYSTEM Calculated T Marshall 7 degrees MUSE SYSTEM INTERPRETATION Normal sinus rhythm Incomplete right bundle branch block Borderline ECG When compared with ECG of 08-SEP-2018 06:15, No significant change was found Confirmed by MD ARTURO, SEAN ([id number]) on 08/20/2021 7:41:59 AM MUSE SYSTEM 08/19/2021 3:30 PM EDT 08/20/2021 7:41 AM EDT Lweis Marysol Lopes MD ECG ORDERABLES [employer] SYSTEM documented in this encounter Visit Diagnoses Diagnosis Heart palpitations Palpitations HFrEF (heart failure with reduced ejection fraction) 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
--- OUTSIDE RECORDS SUMMARY | 2023-12-27 19:44 | XMS_ITS | Encounter Summary ---
[place] [address] Care Team Providers Care Rv Servicer Name Role Phone Alistair Ramos MD Primary Care Provider [phone] Reason for Visit * Reason Comments Specialty Pharmacy Review Encounter Details Date Type Department Care Team (Late st Contact Info) Description 03/23/2022 Specialty [place] [address] Jose Alejandro Moya, [facility] Social History Tobacco Use Types Packs/Day [...] Progress Notes * Jose Alejandro Moya - 03/23/2022 4:00 PM EST The [facility] has completed a benefits investigation for Ghada Ervin to review their eligibility to fill at [facility]. Per patient's medication list they are prescribed TALTZ AUTOINJECTOR 80 MG/ML and the medication is currently filled at the [facility]. documented in this encounter Plan of Treatment Upcoming Encounters Date Type Department Care Team (Late st Contact Info) Description 01/24/2024 3:40 PM EDT Office Visit Cardiology at [address] [address] Rangel Willams MD [facility] [place] [address] documented as of this encounter Visit Diagnoses Not on filedocumented in this encounter Care Teams Rv Servicer Relationship Specialty Start Date End Date Alistair Ramos MD [facility] [place] [address] PCP - General Family Medicine 02/16/22 documented as of this encounter
--- OUTSIDE RECORDS SUMMARY | 2023-12-27 19:44 | XMS_ITS | Encounter Summary ---
[place] [address] Care Team Providers Care Fiscal Accountant Name Role Phone Frances Sorensen KIM Primary Care Provider [phone] Encounter Details Date Type Department Care Team (Late st Contact Info) Description 01/04/2022 [place] [address] Radha Hernández RMA Social History [...] Encounter - Radha Hernández RMA - 01/04/2022 4:46 PM EDT Phone call attempts made to pt unsuccessful.. allergies, meds, & tobacco NOT reviewed. documented in this encounter Plan of Treatment Upcoming Encounters Date Type Department Care Team (Late st Contact Info) Description 01/24/2024 3:40 PM EDT Office Visit Cardiology at [address] [address] Rangel Willams MD [facility] [place] [address] documented as of this encounter Visit Diagnoses Not on filedocumented in this encounter Care Teams Fiscal Accountant Relationship Specialty Start Date End Date Frances Sorensen APRN [address] [place] [address] PCP - General Family Medicine 01/21/19 02/15/22 documented as of this encounter
--- OUTSIDE RECORDS SUMMARY | 2023-12-27 19:44 | XMS_ITS | Encounter Summary ---
Author Organization [facility] [place] [address] Care Team Providers Care Automatic Serging Machine Operator Name Role Phone Frances Sorensen APRN Primary Care Provider [phone] Encounter Details Date Type Department Care Team (Late st Contact Info) Description 07/28/2021 11:20 AM EDT Ancillary Procedure [place] [phone] Frances Sorensen APRN [address] [place] [address] Social History Tobacco Use Types Packs/Day Years [...] 3:40 PM EDT Office Visit Cardiology at [address] [phone] Rangel Willams MD [facility] [place] [address] documented as of this encounter Procedures Procedure Name Priority Date/Time Associated Diagnosis Comments FILM LIBRARY STORAGE ONLY CT CHEST Routine 07/28/2021 11:19 AM EDT documented in this encounter Results * Film Library- Storage Only CT Chest (07/28/2021 11:19 AM EDT) Narrative TARI - 07/28/2021 11:19 AM EDT This exam is auto-finalizing. It's purpose is for storage only. Frances ANSARI FILM LIBRARY ORD ERABLES [place], [place] documented in this encounter Visit Diagnoses Not on filedocumented in this encounter Care Teams Automatic Serging Machine Operator Relationship Specialty Start Date End Date Frances Sorensen APRN [address] [place] [address] PCP - General Family Medicine 01/21/19 02/15/22 documented as of this encounter
--- OUTSIDE RECORDS SUMMARY | 2023-12-27 19:44 | XMS_ITS | Encounter Summary ---
Author Organization [facility] [place] [address] Care Team Providers Care Field Reviewer Name Role Phone Alistair Ramos MD Primary Care Provider [phone] Encounter Details Date Type Department Care Team (Latest Contact Info) Description 03/23/2022 4:40 PM EST Laboratory Appointment Lab [address] [place] [phone] High risk medication use Social History Tobacco [...] Notes * Johnnie Tompkins MD - 03/23/2022 4:40 PM EST Reviewed laboratory results and discussed my findings with patient: Quantiferon gold negative Hepatitis B labs wnl CBC and CMP remarkable for slight elevation in alkaline phosphatase Hepatitis C antibody positive. Patient informed me that she has a history of hepatitis C and has been completed treatment with Mavyret 2 weeks ago. This is prescribed by her PCP Dr. Lopes of [facility]. [facility] viral load was detected as recently as 09/2021 but most recently undetected in 01/2022. I will follow up with her Dr. Lopes to discuss elevated alkaline phosphatase, HCV surveillance and how this may impact starting biology therapy. documented in this encounter Plan of Treatment Upcoming Encounters Date Type Department Care Team (Late st Contact Info) Description 01/24/2024 3:40 PM EDT Office Visit [address]iology [place] [address] [place] [address] Rangel Willams MD [facility] [place] [address] documented as of this encounter Procedures Procedure Name Priority Date/Time Associated Diagnosis Comments HC QUANTIFERON Routine 03/23/2022 4:50 PM EST High risk medication use HEMOGRAM Routine 03/23/2022 4:50 PM EST High risk medication use DIFFERENTIAL, AUTOMATED Routine 03/23/2022 4:50 PM EST High risk medication use HC VENIPUNCTURE Routine 03/23/2022 4:50 PM EST High risk medication use HC HEPATITIS B CORE AB Routine 2 4:50 PM EST High risk medication use HC HEPATITIS B SURFACE AB Routine 03/23/2022 4:50 PM EST High risk medication use HC HEPATITIS B SURFACE AG Routine 03/23/2022 4:50 PM EST High risk medication use HC CBC,PLT & AUTO DIFF Routine 2 4:50 PM EST High risk medication use COMPREHENSIVE METABOLIC PANEL Routine 03/23/2022 4:50 PM EST High risk medication use documented in this encounter Results * Differential, Automated (03/23/2022 4:50 PM EST) Neutrophil % 60.3 % [facility] Neutrophil Absolute 5.86 1.70 - 6.10 x10(3)/[facility] LAB[facility] Lymph % 32.3 % [facility] Lymphocytes Abs 3.1 0.9 - 3.2 x10(3)/[facility] Monocyte % 5.3 % [facility] Monocyte Abs 0.5 0.3 - 0.9 x10(3)/[facility] Eos % 1.5 % [facility] Eosinophils Abs 0.2 0.0 - 0.4 x10(3)/[facility] LAB[facility] Basophil % 0.3 % [facility] Baso Absolute 0.0 0.0 - 0.1 x10(3)/[facility] Immature Gran % 0.30 % [facility] Comment: Immature granulocytes(IG's)percentage and absolute count will include metamyelocytes, myelocytes, and promyelocytes. Blood smears from CBCs yielding IG's will be scanned manually for concordance. If this scan disagrees with the automated IG or if promyelocytes are noted, a manual differential will be performed. Immature Gran Absolute 0.03 0.00 - 0.04 x10(3)/[facility] LAB[facility] Blood 03/23/2022 4:50 PM EST 03/23/2022 4:58 PM EST Narrative Resulting Agency Comment Spec In Lab Johnnie Tompkins MD HEMATOLOGY ORDERABLE S [facility] [place] [address] * (ABNORMAL) Hemogram (03/23/2022 4:50 PM EST) White Blood Cell 9.7(H) 4.0 - 9.5 x10(3)/ L [facility] Red Blood Cell 4.53 4.00 - 5.21 x10(6)/[facility] LABORATORY Hemoglobin 11.8 11.7 - 15.5 g/dL [facility] Hematocrit 37.9 35.7 - 45.8 % [facility] Mean Cell Volume 83.7 82.6 - 94.4 fL [facility] Mean Cell Hemoglobin 26.0(L) 27.1 - 32.0 pg [facility] Mean Cell Hemoglobin Concentration 31.1(L) 31.7 - 35.0 g/dL [facility] Platelet 289 145 - 357 x10(3)/mc L [facility] RDW Standard Deviation 51.0(H) 37.0 - 46.0 fL [facility] RDW coefficient of variation 16.6(H) 11.5 - 14.1 % [facility] Mean Platelet Volume 10.8 7.6 - 12.9 fL [facility] NRBC% auto 0.0 % [facility] NRBC Absolute 0.000 0.000 - 0.000 x10(3)/mc L [facility] Blood 03/23/2022 4:50 PM EST 03/23/2022 4:58 PM EST Narrative Resulting Agency Comment Spec In Lab Johnnie Tompkins MD HEMATOLOGY ORDERABLE S [facility] [place] [address] * (ABNORMAL) Comprehensive metabolic panel (non-fasting) (03/23/2022 [...] In Lab Bessie Choudhary MD CHEMISTRY ORDERABLES [facility] [place] [address] * QuantiFERON-TB Gold (03/23/2022 4:50 PM EST) Pathologist [facility] Quantiferon Nil 0.054 IU/mL [facility] In Lab Bessie Choudhary MD CHEMISTRY ORDERABLES [facility] [place] [address] * Hepatitis B Surface Antigen (03/23/2022 4:50 PM EST) Hepatitis B Surface Antigen Negative Negative [facility] Blood 03/23/2022 4:50 PM EST 03/23/2022 4:58 PM EST Narrative Resulting Agency Comment Spec In Lab Bessie Choudhary MD CHEMISTRY ORDERABLES [facility] [place] [address] * Hepatitis B Surface Antibody (03/23/2022 4:50 PM EST) Hepatitis B Surface Antibody, Quantitative 527.0 IU/L [facility] Comment: HepB Surface Ab Quant: Unvaccinated: < 8.5 IU/L Vaccinated: > 11.5 IU/L Hepatitis B Surface Antibody Positive [facility] Comment: Patient is considered to be immune to HBV infection. Expected Results: Vaccinated: Positive Unvaccinated: Negative Blood 03/23/2022 4:50 PM EST 03/23/2022 4:58 PM EST Narrative Resulting Agency Comment Spec In Lab Bessie Choudhary MD CHEMISTRY ORDERABLES Performing Organization Address [facility] Co de Phone Number [facility] [place] [address] * Hepatitis B Core Antibody, Total (03/23/2022 4:50 PM EST) Hepatitis B Core Antibody Negative Negative [facility] Blood 03/23/2022 4:50 PM EST 03/23/2022 4:58 PM EST Narrative Resulting Agency Comment Spec In Lab Bessie Choudhary MD CHEMISTRY ORDERABLES Performing Organization Address [facility] Co de Phone Number [facility] [place] [address] * (ABNORMAL) Hepatitis C Antibody (03/23/2022 4:50 PM EST) Hepatitis C Antibody Positive(A ) Negative [facility] Blood 03/23/2022 4:50 PM EST 03/23/2022 4:58 PM EST Narrative Resulting Agency Comment Spec In Lab Bessie Choudhary MD CHEMISTRY ORDERABLES Performing Organization Address [facility] Co de Phone Number [facility] [place] [address] documented in this encounter Visit Diagnoses Diagnosis High risk medication use Encounter for long-term (current) use of other medications documented in this encounter Care Teams Field Reviewer Relationship Specialty Start Date End Date Alistair Ramos MD [address] [place] [address] PCP - General Family Medicine 02/16/22 documented as of this encounter
--- OUTSIDE RECORDS SUMMARY | 2023-12-27 19:44 | XMS_ITS | Encounter Summary ---
[place] [address] Care Team Providers Care Group Exercise Class Instructor Name Role Phone Frances Sorensen APRN Primary Care Provider [phone] Reason for Visit * Consultation (Routine) - Closed Specialty Diagnoses / Procedures Referred By Contrina t Referred To Contact Cardiology Diagnoses Long QT syndrome Personal history of transient ischemic attack (TIA), and cerebral infarction without residual deficits Atrial septal defect Cerebral infarction, unspecified Cardiomyopathy, unspecified Long QT syndrome, h/o TIA and cerebral infarction without residual deficits, ASD, Cerebral infarction, Cardiomyopathy. (last seen 10/09/2018-Imer) Frances Sorensen APRN [address] [place] [address] [facility] [address] [place] [phone] Referral ID Status Reason Start Date Expiration Date V isits Requested Visits Authorized [id number] Closed Consult, Test & Treat Connection [facility] PCP Updated and/or Approved 03/19/2021 03/19/2022 12 12 Encounter Details Date Type Department Care Team (Late st Contact Info) Description 04/29/2021 11:00 AM EST Office Visit Cardiology at [address] [phone] Leiws Lopes MD [facility] [place] [address] Heart palpitations; SVT (supraventricular tachycardia); Cerebrovascular accident (CVA), unspecified mechanism; HFrEF (heart failure with reduced ejection fraction); PFO with atrial septal aneurysm Social History [...] Sign Reading Time Taken Comments Blood Pressure 133/85 04/29/2021 10:54 AM EST Pulse 113 04/29/2021 10:54 AM EST Temperature - - Respiratory Rate - - Oxygen Saturation 95% 04/29/2021 10:54 AM EST Inhaled Oxygen Concentration - - Weight 117.9 kg (260 lb) 04/29/2021 10:54 AM EST Height 157.5 cm (5' 2) 04/29/2021 10:54 AM EST Body Mass Index 47.55 04/29/2021 10:54 AM EST documented in this encounter Progress Notes * Lewis Lopes MD - 04/29/2021 11:00 AM EST Images from the original note were not included. [facility] [place] [phone] CARDIOLOGY OUTPATIENT CLINIC VISIT [facility] Ghada Ervin 04/29/2021 Referring Providers: KIM Toure Abby, APRN [address] [place] [address] CHIEF COMPLAINT: I had another stroke CARDIAC-RELEVANT PROBLEM LIST: 1. PFO with ASA [...] normal. 2. Right paraclinoid aneurysm coiled 2014 [place] Occular field defect S/P Coiling S/P Stroke [...] recent stroke. She was recently admitted in March 2021 to [facility] in [facility] with strokelike symptoms consisting of facial droop numbness and weakness of the left side. She was nottaking aspirin nor Plavix at that time. She underwent a thorough evaluation consisting of a CT scanand brain MRI, and evaluation by her neurologist Dr. Grimes and Dr. Fierro. MRI per Dr. Grimes showed areas of infarction which was subacute and unchanged. Her CT scan and brain MRI images were evaluated by Dr. Fierro. It was felt there were subacute infarcts, unchanged. An outpatient follow-up was arranged with neurology. Aspirin and Plavix were restarted. She was successfully discharged. She has significant risk factors of hypertension, [...] h/o prior R aneurysm sp coiling in 2015, remote IVDU who is admitted for worsening CUADRA x6 mo, found with new multifocal infarcts over R cerebral hemisphere involving R parietal, posterior frontal and R occipitial lobe. [place] ?? All MRI Findings are ipsilateral to coiling ?? Most recent episode occurred with patient off all anti-platelet agents Social History High School: [employer]CV: 20 credits towards associate degree Technically [...] IR Arteriogram Cerebral 10/31/2018 Ayaan Castro MD [facility] INTERVENTIONL RAD ??? IR ARTERIOGRAM CEREBRAL 05/08/2020 IR Arteriogram Cerebral 05/08/2020 Ayaan Castro MD [facility] INTERVENTIONL RAD ??? IR EMBOLIZATION INTRACRANIAL 01/21/2019 IR Embolization Intracranial 01/21/2019 Ayaan Castro MD [facility] INTERVENTIONL RAD ??? LITHOTRIPSY kidney stones ? ? PRG SIOBHAN REAL TIME IMG 2D W PRB IMG ACQUIS I&R N/A 09/12/2018 TRANSESOPHAGEAL ECHOCARDIOGRAM (WRVU 2.55) performed by Ze Freeman MD at [facility] MAIN OR ??? PRO PERM OCCLUSION/EMBOLIZATION, PERCUT, POSTDOCTORAL FELLOW N/A 01/21/2019 @TRANSCATHETER OCCLUSION/EMBOLIZATION FOR TUMOR DESTRUCTION performed by Ayaan Castro MD at [facility] [place] ??? TUBAL LIGATION SOCIAL [...] mg by mouth 2 times daily. ??? hydrOXYzine (Atarax) 25 mg Tablet TAKE [...] 90 tablet 3 ??? Miscellaneous Medical Supply [facility] Measure blood pressure daily. Record pressure 1 [...] the medical record: Bee pollen, Meperidine hcl, Springer, and Zoloft [sertraline] PHYSICAL EXAMINATION: Vitals: Patient Vitals for the past 24 hrs: Pulse BP SpO2 04/29/21 1054 (!) 113 133/85 95 % Constitutional: Normal general appearance, no [...] 59 09/06/2018 LDLDIRECT 70 09/06/2018 ASSESSMENT/PLAN: Ghada rEvin is a 30 y.o. female patient presenting for an outpatient cardiology visit for thefollowing cardiovascular conditions: Heart palpitations SVT (supraventricular tachycardia) Cerebrovascular accident (CVA), unspecified mechanism HFrEF (heart failure with reduced ejection fraction) PFO with atrial septal aneurysm 1. Recurrent CVA. She was recently admitted in March 2021 to [facility] in [facility] with strokelike symptoms consisting of facial droop numbness and weakness of the left side.She was not taking aspirin nor Plavix at [...] left side is also back at baseline. She [...] on her right side. 2. Smoking. I I strongly emphasized the importance of quitting smoking immediately. 3. Medication compliance. I once again emphasized the importance of aspirin and Plavix compliance given the coiling on her right side. I provided prescription for aspirin. She has refills for Plavix. Thank you for the opportunity to take care of Ghada Ervin. Sincerely, Dr. Lewis Lopes MD [facility] Pharmacy Director Interventional Cardiology 04/29/2021 CC: Frances Sorensen APRN documented in this encounter Plan of Treatment Upcoming Encounters Date Type Department Care Team (Late st Contact Info) Description 01/24/2024 3:40 PM EDT Office Visit Cardiology at [address] [address] Rangel Willams MD [facility] [place] [address] documented as of this encounter Visit Diagnoses Diagnosis Heart palpitations Palpitations SVT (supraventricular tachycardia) Other specified cardiac dysrhythmias Cerebrovascular accident (CVA), unspecified mechanism HFrEF (heart failure with reduced ejection fraction) 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
--- OUTSIDE RECORDS SUMMARY | 2023-12-27 19:44 | XMS_ITS | Encounter Summary ---
Author Organization [facility] [place] [address] Care Team Providers Care Student Financial Services Counselor Name Role Phone Alistair Ramos MD Primary Care Provider [phone] Encounter Details Date Type Department Care Team (Late st Contact Info) Description 04/21/2022 Telephone Dermatology at [facility] [address] [place] [address] Johnnie Tompkins MD [facility] DR ESDR[facility] [place] [address] Social History Tobacco Use Types Packs/Day Years [...] encounter Miscellaneous Notes * Telephone Encounter - Johnnie Tompkins MD - 04/21/2022 1:05 PM EST Spoke to patient on the phone to tell her that after discussion with her PCP and our hepatologists,she can begin the Taltz. I informed her I will follow up with our pharmacists to ensure she gets the prescription filled. documented in this encounter Plan of Treatment Upcoming Encounters Date Type Department Care Team (Late st Contact Info) Description 01/24/2024 3:40 PM EDT Office Visit Cardiology at [address] [address] Rangel Willams MD [facility] [place] [address] documented as of this encounter Visit Diagnoses Not on filedocumented in this encounter Care Teams Student Financial Services Counselor Relationship Specialty Start Date End Date Alistair Ramos MD [address] [place] [phone] PCP - General Family Medicine 02/16/22 documented as of this encounter
--- OUTSIDE RECORDS SUMMARY | 2023-12-27 19:44 | XMS_ITS | Encounter Summary ---
[place] [address] Care Team Providers Care Director Of Exhibits Name Role Phone EduFrances KIM Primary Care Provider Reason for Referral * Diagnostic Test (Routine) - Closed Specialty Diagnoses / Procedures Referred By Lang sanches Referred To Contact Radiology Diagnoses Cerebral aneurysm Procedures IR Arteriogram Cerebral Ayaan Castro MD [facility] [place] [address] [place] [address] Referral ID Status Reason Start Date Expiration Date V isits Requested Visits Authorized [id number] Closed Specialty Service Requested 12/25/2019 06/23/2021 1 1 Reason for Visit * Diagnostic Test (Routine) - Closed Specialty Diagnoses / Procedures Referred By Lang sanches Referred To Contact Radiology Diagnoses Cerebral aneurysm Procedures IR Arteriogram Cerebral Ayaan Castro MD [facility] [place] [address] [facility] [place] [address] Referral ID Status Reason Start Date Expiration Date V isits Requested Visits Authorized [id number] Closed Specialty Service Requested 12/25/2019 06/23/2021 1 1 Encounter Details Date Type Department Care Team (Latest Contact Info) Description 05/08/2020 7:00 AM EST - 05/08/2020 11:59 PM EST Hospital Encounter Radiology at [facility] [address] Ayaan Castro MD [facility] [place] [address] Cerebral aneurysm Discharge Disposition: Home Social History Tobacco Use [...] Sign Reading Time Taken Comments Blood Pressure 134/75 05/08/2020 10:15 AM EST Pulse 98 05/08/2020 8:45 AM EST Temperature 36.2 ??C (97.2 ??F) 05/08/2020 8:55 AM ES T Respiratory Rate 18 05/08/2020 10:45 AM EST Oxygen Saturation 100% 05/08/2020 10:52 AM EST Inhaled Oxygen Concentration - - Weight - - Height - - Body Mass Index - - documented in this encounter Discharge Instructions * Discharge Instructions* Rosita Cage RN - 05/08/2020 8:23 AM EST [facility] Interventional Radiology Post Angiography Instructions Procedure: Diagnostic Cerebral Angiogram Puncture Site: Right Groin Date: 05/08/20 Physician: Evangelina Castro & Ildefonso Palacios 1. At home we advise you to rest quietly in bed or on the couch with your hip straight until the next morning. Until the next morning you may get up only to go to the bathroom. 2. Resume your previous diet. Drink 6-8 ounces of fluid per hour for the next 8 hours. Avoid alcoholic or caffeinated beverages for 24 hours. 3. Avoid strenuous activity for the next 48 hours, particularly in the next 24 hours. Stair climbing should be kept to a minimum. Do not lift objects heavier than 10-15 pounds for the next 48 hours Avoid straining for bowel movements as you can pop open the clot that has formed on the artery. 4. If you develop bulging under the skin or bleeding at the puncture site, put direct pressure on the puncture site for 15 minutes and call your doctor. If the bleeding persists, reapply pressure, and go to your local Emergency Department. 5. If you notice a sudden change in the feeling (numbness, tingling and/or pain) of your leg on theside of the puncture call your doctor. 6. You may develop a bruise at the puncture site. This should go away within a week to 10 days. If a bulge develops after the first three days, call your doctor or the Radiology/Vascular Department here. Report signs of infection (redness, swelling, discharge, soreness, or fever) to your doctor. 7. Leave the bandage on for 24-48 hours. You may shower the following day after the procedure. You should NOT swim or tub bathe for [address] for 24 hours after the procedure. Do not sign any important documents or smoke unattended for 24 hours. You may return to work with the above restrictions on . 9. If you have any questions or concerns, please call Interventional Radiology Department at until 6pm. After 6pm, or on weekends or hoildays, call and ask for the vice president corporate communications second butler. OR Vascular Department at until 4:45pm. After 4:45pm call and ask for the Vascular resident second butler. 10. If you are a diabetic and take Metformin or Janumet, Do not take it for 2 days after the procedure. XX You have received medication during your procedure to help lesson anxiety and keep you comfortable and which affects judgement and reaction time. We recommend that you do not drive, operate equipment, sign any important documents, or smoke unattended for 24 hours following your procedure. Because of the sedation please be careful on stairs, as you may be unsteady on your feet. You may resume your regular diet as tolerated. IV site -- slight redness, or tenderness is normal, you can use a warm compress. If tenderness and redness increases or foul drainage occurs, please contact your M. D. Revised 02/07/19 documented in this encounter Medications at Time of Discharge Medication Sig Dispensed Refills Start Date End Date hydrOXYzine (Atarax) 25 mg Tablet TAKE ONE [...] Pain (mild pain). 30 tablet 1 05/12/2015 pregabalin (LYRICA) 75 mg Capsule 2 times daily. 01/10/2019 Miscellaneous Medical Supply [facility] Measure blood pressure [...] needed. 2 documented as of this encounter Progress Notes * Johnnie Wheatley RN - 05/08/2020 10:56 AM EST Patient ambulated short distance. Tolerated well, right groin puncture site stable. Dr. Ildefonso Palacios at bedside to give patient history of medication used in the procedure. * Johnnie Wheatley RN - 05/08/2020 10:[address] Jose A Castro at the bedside to evaluate the patient, discuss the results, and follow up MRI, with the patient and her mother. * Johnnie Wheatley RN - 05/08/2020 10:06 AM EST Patient returned to Angio Post from MRI. Unable to perform MRI * Johnnie Wheatley RN - 05/08/2020 10:05 AM EST 0946-Patient to MRI via rsavage for scan. * Rosita Cage RN - 05/08/2020 8:16 AM EST ANGIO NURSING DATABASE Name: GHADA ERVIN Date of : 1990 AGE: 29 y.o. [address]: [address] [address] (home) Mobile: Telephone Information: Referring Provider: Ayaan Castro REASON FOR VISIT: Order Questions Answers Where will study be performed? [facility] Radiology [120] Is the patient on anticoagulant / anitplatelet therapy ? Clopidogrel Reason for exam and clinical history: bilateral ICA aneurysms; pipeline on left Exam/Procedure requested: cerebral angiogram; femoral access preferred Is the patient ? Unknown Allergies Allergen Reactions ??? Bee Pollen Anaphylaxis ??? Meperidine Hcl Anaphylaxis and Other (See Comments) flushing, respiratory trouble ??? [place] Other (See Comments) Flu like sx ??? Zoloft [Sertraline] Other (See Comments) Flu like sx Pertinent PSH: Past Surgical History: Procedure Laterality Date ??? [...] IR Arteriogram Cerebral 10/31/2018 Ayaan Castro MD [facility] INTERVENTIONL RAD ??? IR EMBOLIZATION INTRACRANIAL 01/21/2019 IR Embolization Intracranial 01/21/2019 Ayaan Castro MD [facility] INTERVENTIONL RAD ??? LITHOTRIPSY kidney stones ? ? PRG SIOBHAN REAL TIME IMG 2D W PRB IMG ACQUIS I&R N/A 09/12/2018 TRANSESOPHAGEAL ECHOCARDIOGRAM (WRVU 2.55) performed by Ze Freeman MD at [facility] MAIN OR ??? PRO PERM OCCLUSION/EMBOLIZATION, PERCUT, RELAY WORKER N/A 01/21/2019 @TRANSCATHETER OCCLUSION/EMBOLIZATION FOR TUMOR DESTRUCTION performed by Ayaan Castro MD at [facility] JASMEET ??? TUBAL LIGATION Date/Procedure Meds given/comments 02/19/20 No Show for Cerebral Agram ?? 05/08/20 Dx Cerebral Angiogram ??Versed 2.5mg IV, Fentanyl 175mcg IV ? 0750 to procedure room 4 via stretcher. Onto table supine. All monitors, O2, safety strap in place.Meds per protocol. Arterial Puncture Post Procedure Site: Right Groin Closure device used: Mynx Time sheath removed: 0841 Time of hemostasis: 0845 Hematoma present? none Anticipated up time: 1045 Laboratory Results: Lab Results Component Value Date INR 1.0 10/31/2018 Lab Results Component Value Date CREATININE 0.76 10/31/2018 Lab Results Component Value Date K 4.6 09/12/2018 Lab Results Component Value Date PLATELET 251 10/31/2018 documented in this encounter H&P Notes * Shaun Palacios MD - 05/08/2020 7:09 AM EST INTERVENTIONAL RADIOLOGY FOCUSED H&P and PRE-PROCEDURE NOTE: PCP: Frances Sorensen APRN Referring Provider: Ayaan Castro Planned Procedure: DSA Procedure Indication: Bilateral ICA aneurysms Order Questions Answers Where will study be performed? [facility] Radiology [120] Is the patient on anticoagulant / anitplatelet therapy ? Clopidogrel Reason for exam and clinical history: bilateral ICA aneurysms; pipeline on left Exam/Procedure requested: cerebral angiogram; femoral access preferred Is the patient ? Unknown Presenting Diagnosis/ Complaint: Ghada Ervin is a 29 y.o. female witha past medical history of?Pipeline??embolization of left ICA aneurysms??one year ago.??She had a right ICA aneurysm that had been stent-coiled previously.??She has been experiencing increased headaches of late??as well as some worsening of memory difficulty and attention.??Today she presents for a diagnostic cerebral angiogram. Past Medical/Surgical History: Patient Active Problem List Diagnosis Code ??? [...] region without myelopathy or radiculopathy M47.816 ??? Intracranial aneurysm I67.1 ??? Seizures R56.9 ??? Patient non adherence Z91.19 ??? Kidney stones N20.0 ??? Depression F32.9 ??? Back pain M54.9 ??? Stroke I63.9 ??? HFrEF (heart failure with reduced ejection fraction) I50.20 ??? 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 ADD (attention deficit disorder) 09/18/2014 ??? Back pain ??? Chronic pain syndrome 01/15/2014 ??? Depression ??? Fibromyalgia 01/15/2014 ??? Heart palpitations 01/15/2014 ??? Kidney stones ??? Migraines 01/15/2014 ??? Patient non adherence ??? Scoliosis 09/18/2014 ??? Seizures Past Surgical History: Procedure Laterality Date ??? [...] IR Arteriogram Cerebral 10/31/2018 Ayaan Castro MD [facility] INTERVENTIONL RAD ??? IR EMBOLIZATION INTRACRANIAL 01/21/2019 IR Embolization Intracranial 01/21/2019 Ayaan Castro MD [facility] INTERVENTIONL RAD ??? LITHOTRIPSY kidney stones ? ? PRG SIOBHAN REAL TIME IMG 2D W PRB IMG ACQUIS I&R N/A 09/12/2018 TRANSESOPHAGEAL ECHOCARDIOGRAM (WRVU 2.55) performed by Ze Freeman MD at [facility] MAIN OR ??? PRO PERM OCCLUSION/EMBOLIZATION, PERCUT, RELAY WORKER N/A 01/21/2019 @TRANSCATHETER OCCLUSION/EMBOLIZATION FOR TUMOR DESTRUCTION performed by Ayaan Castro MD at [facility] [place] ??? TUBAL LIGATION Medications: Current Outpatient Medications on File Prior to Encounter Medication Sig Dispense Refill ??? hydrOXYzine (Atarax) [...] 90 tablet 3 ??? Miscellaneous Medical Supply [facility] Measure blood pressure [...] current facility-administered medications on file prior to encounter. Allergies: Bee pollen, Meperidine hcl, [place], and Zoloft [sertraline] Social History and Habits: Social History Socioeconomic History ??? Marital status: Single Spouse name: Not on file ??? Number of children: Not on file ??? Years of education: Not on file ??? Highest education level: Not on file Occupational History ??? Not on file Social Needs ??? Financial resource strain: Not on file ??? Food insecurity Worry: Not on file Inability: Not on file ??? Transportation needs Medical: Not on file Non-medical: Not on file Tobacco Use ??? Smoking status: Current Every Day Smoker Packs/day: 0.00 Years: 8.00 Pack years: 0.00 Types: Cigarettes ??? Smokeless tobacco: Never Used ??? Tobacco comment: 5-8 Cigs a day Substance and Sexual Activity ??? Alcohol use: Not Currently Comment: seldom ??? Drug use: Yes Frequency: 2.0 times per week Types: Marijuana ??? Sexual activity: Yes Partners: Male Lifestyle ??? Physical activity Days per week: Not on file Minutes per session: Not on file ??? Stress: Not on file Relationships ??? Social connections Talks on phone: Not on file Gets together: Not on file Attends adventist service: Not on file Active member of club or organization: Not on file Attends meetings of clubs or organizations: Not on file Relationship status: Not on file ??? Intimate partner violence Fear of current or ex partner: Not on file Emotionally abused: Not on file Physically abused: Not on file Forced sexual activity: Not on file Other Topics Concern ??? Not on file Social History Narrative ??? Not on file Significant Family History: Family History Problem Relation Age of Onset ??? Depression Mother ??? Migraines Mother ??? Hypertension Father ??? Diabetes Father ??? Depression Father ??? Diabetes Paternal Grandmother ??? Coronary Artery Disease Paternal Grandmother ??? Diabetes Paternal Aunt ??? Hypertension Paternal Aunt ??? Diabetes Paternal Uncle ??? Hypertension Paternal Uncle ??? Hypertension Maternal Grandmother ??? Coronary Artery Disease Maternal Grandmother ??? Migraines Maternal Grandmother ??? Diabetes Maternal Grandfather ??? Hypertension Paternal Grandfather ??? Migraines Brother ??? Migraines Maternal Aunt Pertinent ROS: as per HPI Labs: Lab Results Component Value Date WBC 8.2 09/07/2018 HCT 34.0 (L) 09/07/2018 PLATELET 251 10/31/2018 INR 1.0 10/31/2018 BUN 17 09/12/2018 CREATININE 0.76 10/31/2018 ALKPHOS 110 (H) 09/12/2018 AST 22 09/12/2018 ALBUMIN 3.5 09/12/2018 BILIDIR 0.1 09/07/2018 BILITOT 0.2 09/12/2018 ALT 37 (H) 09/12/2018 PROT 6.6 09/12/2018 K 4.6 09/12/2018 Imaging: In eDH Physical Exam: General: No distress. Cardiovascular: Regular rate and rhythm. Pulmonary: Unlabored breathing on room air. Clear to auscultation bilaterally. Mental Status/Cognitive: Alert. Follows commands. Answers questions appropriately. Speech: Fluent. Appropriate. Cranial Nerves: CN II - Visual acuity and ching grossly intact bilaterally. PERRL. CN III, IV, - EOMI. CN VII - No facial asymmetry. CN XI - Trapezius 5/5 bilaterally. CN XII - Tongue midline. Coordination: Heel-mcgraw intact. Bbvlrn-xe-eqsm intact. Motor: No pronator drift. Tone: Normal. Power: Segment Muscle Action Right Left C5 Biceps Elbow flexion 5 5 C6 Extensor carpi radialis Wrist extension 5 5 C7 Triceps Elbow extension 5 5 C8, T1 Hand intrinsics Grasp 5 5 L2 Iliopsoas Hip flexion 5 5 L3 Quadriceps Knee extension 5 5 L4 Tibialis anterior Dorsiflexion 5 5 L5 Extensor hallucis Great toe extension 5 5 S1 Gastrocnemius Plantar flexion 5 5 ASA: I Mallampati Class: II Assessment: 29 y.o. female s/p Pipeline embolization of left ICA aneurysm and stent assisted coiling of the right ICA. Plan: Diagnostic cerebral angiogram 05/08/2020 documented in this encounter Miscellaneous Notes * Brief Op Note - Shaun Palacios MD - 05/08/2020 8:52 AM EST INTERVENTIONAL RADIOLOGY BRIEF PROCEDURE NOTE Patient Name: Ghada Ervin : 1990 Case Date: 05/08/2020 Operators: Attending: Russell Castro Resident/Fellow/Student: Shaun Palacios Post-operative diagnosis/Indication: s/p Pipeline Embolization of left ICA Name of Procedure Performed: Left common carotid artery DSA Brief description of the procedure: ?? 5F right common femoral arteriotomy ?? 5F Mayito left common carotid AP and lateral selective angiography ?? Magnification views AP and lateral selective angiography Findings of the procedure: ?? Patent left internal carotid artery with normal course and caliber of the terminal intra-cranialleft ICA s/p Pipeline stent placement demonstrating expected endothelialization with complete opacification of the terminal ICA with uninhibited transit of contrast to the terminal branch vessels ?? No evidence of residual or new aneurysm ?? Hemostatic Mynx closure of the right femoral access site. EBL: <10 mL Specimens: _N/A_ Complications: No immediate Plan/Disposition: Transfer patient to IR recovery room for 2 hour post procedural care and then to MRI for f/u MRI brain study. Anticipated discharge today after MRI. FULL PROCEDURE NOTE TO FOLLOW IN IMAGE REPORT documented in this encounter Plan of Treatment Upcoming Encounters Date Type Department Care Team (Late st Contact Info) Description 01/24/2024 3:40 PM EDT Office Visit Cardiology at [address] [address] Rangel Willams MD [facility] [place] [address] documented as of this encounter Procedures Procedure Name Priority Date/Time Associated Diagnosis Comments IR ARTERIOGRAM CEREBRAL Routine 05/08/2020 8:52 AM EST Cerebral aneurysm documented in this encounter Results * IR Arteriogram Cerebral [...] ? Electronically signed by: Ayaan Castro MD, [facility] ([phone]), at 05/08/2020 12:05 PM Narrative 05/08/2020 12:05 [...] B-plane ??31 mGy. MATERIALS: Micropuncture set, 5Fr Viking sheath, 5Fr ??Vertcatheter. TECHNIQUE: The procedure and [...] and directed to the ascending aorta. In ARMENIAN projection the wire was removed and the 5 Swazi Vert catheter was oriented to the origin [...] B-plane 31 mGy. MATERIALS: Micropuncture set, 5Fr Viking sheath, 5Fr Vertcatheter. TECHNIQUE: The procedure and [...] and directed to the ascending aorta. In ARMENIAN projection the wire wasremoved and the 5 Swazi Vert catheter was oriented to the origin [...] below. Electronically signed by: Ayaan Castro MD, [facility]([phone]), at 05/08/2020 12:05 PM Ayaan Castro MD IMG IR ORDERABLES documented in this encounter Visit Diagnoses Diagnosis Cerebral aneurysm Cerebral aneurysm, nonruptured documented in this encounter Administered Medications Inactive Administered Medications - up to 3 most recent administrations Medication Order MAR Action Action Date Dose Rate Site fentaNYL (pf) (50 mcg/mL) multi-dose injection 25-50 mcg 25-50 mcg, Intravenous, EVERY 3 MIN PRN, Starting on Mon05/08/20 at 0717, Until Mon05/08/20 at 1121, Pain, per unit protocol, - Start dose 50 mcg (reduce dose to 25 mcg if history of sedation sensitivity). - Titration dose 25-50 mcg IV, (based on patient response) every 3 minutes PRN, to maintain procedural pain less than 2 per pain Scale. Maximum dose: 50 mcg/dose, 250 mcg/hour For use in Interventional Radiology (IR) only for procedural sedation with direct provider supervision and verbal order., Angio/IR (Intra-Procedure), Routine Given 05/08/2020 8:40 AM EST 25 mcg Given 05/08/2020 8:35 AM EST 25 mcg Given 05/08/2020 8:30 AM EST 25 mcg iodixanoL (Visipaque) (320 mg/mL) injection solution 150 mL 150 mL, Intra-arterial, ONCE PRN, 1 dose, Starting on Mon05/08/20 at 0840, Until Mon05/08/20 at 0840, Per Protocol, Angio/IR (Intra-Procedure) Given 05/08/2020 8:40 AM EST 20 mLs lidocaine (Xylocaine) 1% (10 mg/mL) injection 10 mg 10 mg, Subcutaneous, ONCE, 1 dose, On Mon05/08/20 at 0745, For use in Interventional Radiology (IR) only for procedure with direct provider supervision and verbal order., Angio/IR (Intra-Procedure), Routine Given 05/08/2020 7:45 AM EST 10 mg midazolam (pf) (Versed) (1 mg/mL) multi-dose injection 0.5-1 mg 0.5-1 mg, Intravenous, EVERY 3 MIN PRN, Starting on Mon05/08/20 at 0717, Until Mon05/08/20 at 1121, Sleep, - Start dose; 1 mg (Reduce dose to 0.5 mg if history of sedation sensitivity). - Titration dose: 0.5 mg - 1 mg (based on patient response) every 3 minutes PRN to obtain RASS score of -3. Maximum dose: 1 mg per dose, 5 mg/hour. For use in Interventional Radiology (IR) only for procedural sedation with direct provider supervision and verbal order., Angio/IR (Intra-Procedure), Routine Given 05/08/2020 8:35 AM EST 0.5 mg Given 05/08/2020 8:25 AM EST 0.5 mg Given 05/08/2020 8:20 AM EST 0.5 mg documented in this encounter Care Teams Director Of Exhibits Relationship Specialty Start Date End Date Frances Sorensen APRN [address] [place] [address] PCP - General Family Medicine 01/21/19 02/15/22 documented as of this encounter
--- OUTSIDE RECORDS SUMMARY | 2023-12-27 19:44 | XMS_ITS | Encounter Summary ---
[place] [address] Care Team Providers Care Vice President And Portfolio Manager Name Role Phone Frances Sorensen KIM Primary Care Provider [phone] Encounter Details Date Type Department Care Team (Late st Contact Info) Description 05/11/2020 Telephone [place] [address] Luiza Colbert Social History Tobacco Use Types [...] encounter Miscellaneous Notes * Telephone Encounter - Gilda Fitzgerald - 06/28/2020 4:56 PM EST Letter mailed to address on file * Telephone Encounter - Luiza Colbert - 06/09/2020 1:52 PM EST LM for pt at home# in regards to scheduling MRI at [facility] Unable to LM on cell# * Telephone Encounter - Luiza Colbert - 06/02/2020 3:19 PM EST LM at home #, unable to LM on cell#-calling to give MRI scheduling # at [facility] for pt to call to schedule [phone]. Called [facility] no showed MRI on 05/26. * Telephone Encounter - Luiza Colbert - 05/19/2020 10:19 AM EST Faxed MRI order and PA info, will fax H&P from 05/[address] [facility] once recd No PA with [place] Medicaid due to Covid per Gilberto Curran * Telephone Encounter - Luiza Colbert - 05/19/2020 9:52 AM EST Called pt, schedule MRI with IV sedation at [place] Needs PA with [place] Medicaid Pt having H&P today with PCP to clear for IV sedation. Fax order,auth # & H&P to [facility] [phone] * Telephone Encounter - Luiza Colbert - 05/11/2020 11:10 AM EST LM for pt to call back with preference to have MRI at [place] or [facility] (both have larger bore) Needs PA [facility] Fax with order & hard copy of PA to [phone] [facility] [phone] Ayaan Castro MD Sent: MonMay 08, 2020 ??2:47 PM To: Luiza Colbert ?? Message Well, we got the angiogram done. THat looked good. The MRI fell through for a couple reasons but I'd still like to get it at [place] or [facility]. She does need oral sedation and a large bore ma documented in this encounter Plan of Treatment Upcoming Encounters Date Type Department Care Team (Late st Contact Info) Description 01/24/2024 3:40 PM EDT Office Visit Cardiology at [address] [address] Rangel Willams MD [facility] [place] [address] documented as of this encounter Visit Diagnoses Not on filedocumented in this encounter Care Teams Vice President And Portfolio Manager Relationship Specialty Start Date End Date Frances Sorensen APRN [address] [place] [address] PCP - General Family Medicine 01/21/19 02/15/22 documented as of this encounter
--- OUTSIDE RECORDS SUMMARY | 2023-12-27 19:44 | XMS_ITS | Encounter Summary ---
Author Organization [facility]ly [facility] [place] [address] Care Team Providers Care System Support Analyst Name Role Phone Frances Sorensen KIM Primary Care Provider [phone] Encounter Details Date Type Department Care Team (Late st Contact Info) Description 07/28/2021 8:15 PM EDT Ancillary [place] [phone] Jhonathan Garza MD [facility] [place] [address] Social History Tobacco Use Types Packs/Day Years [...] PM EDT Office Visit Cardiology at [address] [phone] Rangel Willams MD [facility] [place] [address] documented as of this encounter Procedures Procedure Name Priority Date/Time Associated Diagnosis Comments FILM LIBRARY STORAGE ONLY CT HEAD AND SPINE Routine 07/28/2021 8:11 PM EDT documented in this encounter Results * Film Library- Storage Only CT Head And Spine (07/28/2021 8:11 PM EDT) Narrative TARI - 07/28/2021 8:11 PM EDT This exam is auto-finalizing. It's purpose is for storage only. Jhonathan Garza MD IMG FILM LIBRARY O RDERABLES Performing Organization Address City/State/[facility] Co de Phone Number [place], [place] documented in this encounter Visit Diagnoses Not on filedocumented in this encounter Care Teams System Support Analyst Relationship Specialty Start Date End Date Frances Sorensen APRN [address] [place] [address] PCP - General Family Medicine 01/21/19 02/15/22 documented as of this encounter
--- OUTSIDE RECORDS SUMMARY | 2023-12-27 19:44 | XMS_ITS | Encounter Summary ---
Author Organization [facility] [place] [address] Care Team Providers Care Beading Sawyer Name Role Phone Frances Sorensen APRN Primary Care Provider Encounter Details Date Type Department Care Team (Late st Contact Info) Description 05/08/2020 [place] [phone] Ayaan Castro MD [facility] [place] [address] Other complicated headache syndrome Social History Tobacco Use Types Packs/Day Years [...] 3:40 PM EDT Office Visit Cardiology at [address] [phone] Rangel Willams MD [facility] [place] [address] documented as of this encounter Visit Diagnoses Diagnosis Other complicated headache syndrome documented in this encounter Care Teams Beading Sawyer Relationship Specialty Start Date End Date Frances Sorensen APRN [address] [place] [address] PCP - General Family Medicine 01/21/19 02/15/22 documented as of this encounter
--- OUTSIDE RECORDS SUMMARY | 2023-12-27 19:44 | XMS_ITS | Encounter Summary ---
[place] [address] Care Team Providers Care Electrician Helper Powerhouse Name Role Phone Alistair Ramos MD Primary Care Provider [phone] Reason for Visit * Reason Comments Patient Education Encounter Details Date Type Department Care Team (Late st Contact Info) Description 03/23/2022 Specialty [place] [address] Kj Mota RPH Social History Tobacco Use Types Packs/Day [...] as of this encounter Progress Notes * Kj Mota RPH - 03/23/2022 4:22 PM EST Specialty Pharmacy Initial Consultation; Kj Mota RPH Comprehensive Medication Management (CMM) Ghada Augustin Arcadio Diagnosis: Psoriasis Therapy Start Date: TBD - New Start Contact in person or via telephone: In person Ms. Ghada Ervin is a 31 y.o. (1990) female who was contacted in regard to specialty medication. Spoke with patient regarding Taltz. A review of the medication therapy was performed. Is the patient willing to proceed with the Clinical Assessment? Yes Summary and Recommendations: ??? Comprehensive review of Taltz discussed with the patient. Topics covered include: warnings/precautions & contraindications, patient's dose and frequency of administration, personal indicationfor use, potential adverse effects, drug &/or food interactions, monitoring/safety parameters, drug MOA, proper storage/handling recommendations, and anticipated time to effect o Patient reports no personal hx of inflammatory bowel disease o Education provided on the importance of infection prevention o Dose hold parameters were reviewed and patient agrees to contact the clinic if any suspected/known infection, antibiotic treatment, or planned surgeries occur ? ? Medication & allergy review completed ??? Patient made aware of the prior authorization process/timeline and was given [facility] contact information if needed. ??? General overview of self-injection process was provided and patient was encouraged to schedule an injection teaching appointment (in-person or telehealth) if they prefer to have first injection completed with medical oversight Clinic follow-up needed: yes - ongoing clinic follow up and lab monitoring Allergies and Drug intolerance: Allergies Allergen Reactions ??? Bee Pollen Anaphylaxis ??? Meperidine Hcl Anaphylaxis and Other (See Comments) flushing, respiratory trouble ??? Hissop Other (See Comments) Flu like sx ??? 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 fluocinolone (DERMA-SMOOTHE) 0.01 % Oil Apply a thin film onto scalp and massage thoroughly into wet or dampened hair/scalp; cover with shower cap. Leave on overnight (or for at least 4 hours). Remove by washing hair with shampoo and rinsing thoroughly. Please do this 3 days in a row then take 1 week off. Repeat this cycle as needed. 120 mL 2 ??? OLANZapine (ZyPREXA) 15 mg Tablet Take [...] 90 tablet 3 ??? Miscellaneous Medical Supply [facility] Measure blood pressure daily. Record pressure 1 [...] No current facility-administered medications for this visit. Most Recent Vitals: Ht Readings from Last 1 Encounters: 08/19/21 157.5 cm (5' 2) Wt Readings from Last 3 Encounters: 08/19/21 123.8 kg (273 lb) 04/29/21 117.9 kg (260 lb) 01/21/19 103.9 kg (229 lb) Temp Readings from Last 3 Encounters: 05/08/20 36.2 ??C (97.2 ??F) (Temporal) 01/23/19 37.2 ??C (99 ??F) (Oral) 10/31/18 35.7 ??C (96.3 ??F) (Temporal) BP Readings from Last 3 Encounters: 08/19/21 127/67 04/29/21 133/85 05/08/20 134/75 Pulse Readings from Last 3 Encounters: 08/19/21 81 04/29/21 (!) 113 05/08/20 98 There is no height or weight on file to calculate BMI. Pertinent Lab values: Lab Results Component Value Date NA 143 09/12/2018 K 4.6 09/12/2018 CL 105 09/12/2018 CO2 29 09/12/2018 BUN 17 09/12/2018 CREATININE 0.76 10/31/2018 GLUCOSE 78 09/12/2018 GLUCFASTING 108 (H) 09/06/2018 CALCIUM 8.9 09/12/2018 Lab Results Component Value Date ALT 37 (H) 09/12/2018 AST 22 09/12/2018 ALKPHOS 110 (H) 09/12/2018 BILITOT 0.2 09/12/2018 BILIDIR 0.1 09/07/2018 ALBUMIN 3.5 09/12/2018 PROT 6.6 09/12/2018 Lab Results Component Value Date WBC 8.2 09/07/2018 HGB 11.0 (L) 09/07/2018 HCT 34.0 (L) 09/07/2018 MCV 93.9 09/07/2018 PLATELET 251 10/31/2018 Lab Results Component Value Date HA1C 5.3 09/06/2018 Immunization History Administered Date(s) Administered ??? Influenza PF, Split 01/13/2015 Assessment and Recommendations: Patient Counseling Patient informed of specialty services: Yes Patient accepted offer to family life counselor: select all, adherence/missed doses, cost of medications/cost implications, doses and administration, possible drug/OTC drug and food interactions, possible adverse side effects and management, pharmacy contact information, lab monitoring/follow up, possible drug/Rx drug interactions, safe handling, storage, and disposal, therapeutic rationale Medication Management Summary Topics discussed: reviewed medication changes since last visit, medication safety precautions education provided, drug interaction education provided to patient, safe handling, storage, and disposal discussed, possible adverse effects and management discussed, lab monitoring and follow-up discussed, cost of medications and cost implications discussed, adherence and missed doses discussed, health goals discussed, monitoring medication discussed, preventative care discussed, recommendations to doctor discussed, reminder to refill or picker and sorter load and unload medication discussed, self-monitoring discussed, start medication discussed, timing of medications discussed, vaccination discussed, referral needs discussed Treatment Outcomes 03/23/2022 1625 Disease progression: Stable Patient Overall Status: Stable Reviewed in detail with patient: Dose appropriateness based on recommended standard dosing Current medication list including OTC medications Medication and disease problems Allergies Comorbid conditions/ Problem List Past adverse events if any Special needs of the patient including physical and cognitive limitations Goals of therapy and management strategies Warnings, precautions, and contraindications Side effects Drug-drug and drug-food interactions Administration instructions including dose, frequency and method Handling, storage, and disposal Verifying expiration dates on products before use Rotating medication inventory to use oldest product first Relevant lab data Treatments impact on disease Dose appropriateness based on recommended standard dosing schedule, including any variations from FDA approved dosing Patient verbalizes understanding and is able to read-back instructions on self-administration/injection, proper storage, drug stability, importance of adherence and management strategies, side effect avoidance and mitigation strategies, and interruptions in therapy: Yes Patient is aware a licensed pharmacist is available 24 hours a day, 7 days a week to discuss medication-related questions or concerns: Yes Patient verbalizes understanding of the common side effect profile of their medication. The patient is able to call 911 or seek urgent care if signs/symptoms of allergy or harmful adverse reactions occur: Yes Additional care/services needed: No Additional equipment/supplies required: No Patient satisfied with care/services provided: Yes Specialty Assessment: Physical and Cognitive Assessment: Functional limitations identified: No Cognitive limitations identified: No Concern regarding orientation/memory: No Concern with reasoning/judgement: No Is patient a fall risk: No Social Assessment: Does patient have a primary customer care representative: No Does patient have an emergency contact on file: Yes Does patient need referral to social work associate: No Does patient need referral to advocacy group: No Home Health Assessment: Is the patient in a safe home environment?: Yes Is the patient able to store their medication as directed?: Yes Does the patient have a support network at home?: Yes Reviewed potential home safety hazards with patient: Yes Economic Assessment: Patient is agreeable to medication copay: Other (see comments) (Comment: TBD - New Start) Welcome Packet and Rights and Responsibilities: Specialty Med Adherence Patient Demonstrates Understanding of Importance of Adherence: Yes Educational Information or Adherence Tools Provided: Yes Therapy Assessment: Current Medication Dosing/Route/Frequency: Taltz 80mg/mL autoinjector Inject the contents of two autoinjectors (160 mg) under the skin once on week 0, then inject the contents of one autoinjector (80mg) once on weeks 2, 4, 6, 8, 10, 12 and once every 4 weeks thereafter Appropriate Therapy: Yes Current Affected Areas: Scalp, trunk, extremities Total BSA involved: 35% Recent Skin Exacerbations/Flaring: yes - psoriasis worsening starting 6 months ago Recent Topical Corticosteroid Use: yes - triamcinolone, betamethasone Relapsing/Remitting Factors: no Diagnosis of Psoriatic Arthritis: No- suspected PsA Patient's Problems/Needs: additional treatment for uncontrolled psoriasis and ongoing clinic followup Expected Outcome: Skin clearing and reduction of symptoms Treatment Outcome: Therapy initiated Patient's goals: Patient's specific desired goal: Reduction in affected skin area and reduction of symptoms Measured by: Patient reported s/sx and provider physical exam Time-frame to meet goal: 3-6 months On a scale of 1-10, what is the patient's overall confidence level with administering this medication? Not assessed Monitoring requirements for prescribed medication: CBC, CMP, Hep B and C, Quant Gold On a scale of 1-10 the patient rates their quality of life: Not assessed Care Plan Reviewed and Approved by both Pharmacist and Patient: Yes Interventions (if applicable): No N/A Pharmacist follow-up needed: Yes Delivery Method: Delivery Patient understands no changes to current drug regimen were made at the appointment and that [facility] (summary located at top of note) for provider review and follow up. Kj Mota RPH 03/23/22 4:25 PM documented in this encounter Plan of Treatment Upcoming Encounters Date Type Department Care Team (Late st Contact Info) Description 01/24/2024 3:40 PM EDT Office Visit Cardiology at [address] [phone] Rangel Willams MD [facility] [place] [address] documented as of this encounter Visit Diagnoses Not on filedocumented in this encounter Care Teams Electrician Helper Powerhouse Relationship Specialty Start Date End Date [place] [address] PCP - General Family Medicine 02/16/22 documented as of this encounter
--- OUTSIDE RECORDS SUMMARY | 2023-12-27 19:45 | XMS_ITS | Encounter Summary ---
[place] [address] Care Team Providers Care Store Lead Name Role Phone Frances Sorensen KIM Primary Care Provider [phone] Encounter Details Date Type Department Care Team (Late st Contact Info) Description 03/07/2019 [place] [phone] Nina Ruiz, RN Social History Tobacco Use Types Packs/Day [...] * Telephone Encounter - Gilda Fitzgerald - 03/07/2019 12:23 PM EST Pt returned call. Rescheduled missed appt to 03/27/19 (first avail). * Telephone Encounter - Nina Ruiz - 03/07/2019 10:32 AM EST Ghada did not show up for her scheduled f/u appointment with Dr. Castro yesterday. He requested that I call to check in on her to make sure everything is OK. I called her number which has no VM set up so I was unable to LM; I called her mothers line and LM asking either she or Ghada call us back. documented in this encounter Plan of Treatment Upcoming Encounters Date Type Department Care Team (Late st Contact Info) Description 01/24/2024 3:40 PM EDT Office Visit Cardiology at [address] [address] Rangel Willams MD [facility] [place] [address] documented as of this encounter Visit Diagnoses Not on filedocumented in this encounter Care Teams Store Lead Relationship Specialty Start Date End Date Frances Sorensen APRN [address] [place] [address] PCP - General Family Medicine 01/21/19 02/15/22 documented as of this encounter
--- OUTSIDE RECORDS SUMMARY | 2023-12-27 19:45 | XMS_ITS | Encounter Summary ---
[place] [address] Care Team Providers Care Business Analytics Faculty Member Name Role Phone Vicky Obrien KIM Primary Care Provider [phone] Encounter Details Date Type Department Care Team (Late st Contact Info) Description 10/17/2018 7:05 PM EDT Ancillary Procedure [place] [phone] Derrek Naidu MD [facility] [place] [address] Social History Tobacco Use Types Packs/Day Years Used Date Smoking Tobacco: Every Day Cigarettes Smokeless Tobacco: Never Comments:5-8 Cigs a day Alcohol Use Standard Drinks/Week Comments Not Asked 0 (1 standard drink = 0.6 oz pur e alcohol) seldom Sex and Gender Information Value Date Recorded Sex Assigned at Not on file Gender Identity Not on file Sexual Orientation Not on file documented as of this encounter Plan of Treatment Upcoming Encounters Date Type Department Care Team (Late st Contact Info) Description 01/24/2024 3:40 PM EDT Office Visit Cardiology at [address] [phone] Rangel Willams MD [facility] [place] [address] documented as of this encounter Procedures Procedure Name Priority Date/Time Associated Diagnosis Comments FILM LIBRARY STORAGE ONLY CT HEAD AND SPINE Routine 10/17/2018 7:00 PM EDT documented in this encounter Results * Film Library- Storage Only CT Head And Spine (10/17/2018 7:00 PM EDT) Narrative TARI - 10/17/2018 7:00 PM EDT This exam is auto-finalizing. It's purpose is for storage only. Derrek Naidu MD IMG FILM LIBRARY ORDERABLES Performing Organization Address City/State/[facility] Co de Phone Number [place], [place] documented in this encounter Visit Diagnoses Not on filedocumented in this encounter Care Teams Business Analytics Faculty Member Relationship Specialty Start Date End Date Vicky Obrien APRN PCP - General Family Medicine 08/25/17 11/21/18 documented as of this encounter
--- OUTSIDE RECORDS SUMMARY | 2023-12-27 19:45 | XMS_ITS | Encounter Summary ---
[place] [address] Care Team Providers Care Geospatial Engineer Name Role Phone Frances Sorensen KIM Primary Care Provider [phone] Encounter Details Date Type Department Care Team (Late st Contact Info) Description 01/30/2019 Telephone [place] [address] Nina Ruiz, RN Social History Tobacco Use [...] encounter Miscellaneous Notes * Telephone Encounter - Nina Ruiz - 01/30/2019 3:07 PM EDT TRIAGE CALL Caller: Ghada Patient of: Dr. Castro Reason for Call: Ghada calls our office today stating she is a mess. She reports the first fewdays that she went home she was in excruciating pain but managed to pull through. Last night she reports she was having a difficult time sleeping (midight) so she decided to go take a shower. She states that she blacked out after rinsing her hair and woke up as she was falling through the shower curtain. She reports she smashed her face off the toilet, bruised her ribs and hurt her feet. She fell so hard that she kicked a hole in my fiber glass bathtub. She finally came to around 3:00am. Today she is having difficulty with her speech (stuttering and word finding difficulty) feels weak and I am just not doing well. I feel like I am having a stroke. I advised Ghada to go to her local ER for evaluation given her symptoms, recent treatment for aneurysm, and her verbalization that she thinks she is having a stroke. I recommended she call 911 andhave them transport her. documented in this encounter Plan of Treatment Upcoming Encounters Date Type Department Care Team (Late st Contact Info) Description 01/24/2024 3:40 PM EDT Office Visit Cardiology at [address] [phone] Rangel Willams MD [facility] [place] [address] documented as of this encounter Visit Diagnoses Not on filedocumented in this encounter Care Teams Geospatial Engineer Relationship Specialty Start Date End Date Frances Sorensen APRN [address] [place] [address] PCP - General Family Medicine 01/21/19 02/15/22 documented as of this encounter
--- OUTSIDE RECORDS SUMMARY | 2023-12-27 19:45 | XMS_ITS | Encounter Summary ---
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 Name Role Phone Frances Sorensen KIM Primary Care Provider [phone] Reason for Visit * Auth/Cert Specialty Diagnoses / Procedures Referred By Lang sanches Referred To Contact Diagnoses left ophthalmic aneurysm Procedures PRO PERM OCCLUSION/EMBOLIZATION, PERCUT, PLATINUMSMITH @[email or web address] OCCLUSION/EMBOLIZATION FOR TUMOR DESTRUCTION Referral ID Status Reason Start Date Expiration Date Visits Re quested Visits Authorized [id number] 1 1 Encounter Details Date Type Department Care Team (Latest Contact Info) Description 01/21/2019 6:30 AM EDT - 01/23/2019 2:57 PM EDT Hospital Encounter Intermediate [place] [address] Ayaan Castro MD [facility] [address] [place] [address] Discharge Disposition: Home Social History Tobacco Use [...] Sign Reading Time Taken Comments Blood Pressure 125/89 01/23/2019 2:00 PM EDT Pulse 74 01/23/2019 2:00 PM EDT Temperature 37.2 ??C (99 ??F) 01/23/2019 12:00 PM EDT Respiratory Rate 15 01/23/2019 2:00 PM EDT Oxygen Saturation 98% 01/23/2019 2:00 PM EDT Inhaled Oxygen Concentration - - Weight 103.9 kg (229 lb) 01/21/2019 6:52 AM EDT Height 157.5 cm (5' 2) 01/21/2019 6:52 AM EDT Body Mass Index 41.88 01/21/2019 6:52 AM EDT documented in this encounter Discharge Summaries * Cheri Freeman APRN - 01/23/2019 11:21 AM EDT Patient Name: Ghada Ervin Patient Age: 28 y.o. Admit date: 01/21/2019 Discharge Date and Time: 01/23/2019 Attending Physician: Ayaan Castro MD Discharging Provider: Cheri Freeman APRN Discharging Service: NEUROSURGERY Operations/Major Procedures: Case Date: 01/21/2019 ?? Operators: Attending: Ayaan Castro MD All Staff: Nicolas Roca MD, Johnnie Maria, DO Post-operative diagnosis/Indication: Cerebral aneurysm without rupture ?? Name of Procedure Performed: Planned procedure: Cerebral Angiogram. Pipeline Stenting and/or Endocoiling of 3 mm left ophthalmic aneurysm. ?? Description of the procedure: R PAYROLL ACCOUNTING CLERK, L PAYROLL ACCOUNTING CLERK access Left ICA angiography Pipeline stenting of left ICA aneurysm Angioseal closure of R PAYROLL ACCOUNTING CLERK Mynx closure of L PAYROLL ACCOUNTING CLERK Active Hospital Problems: Active Hospital Problems Diagnosis ??? Aneurysm of ophthalmic artery Resolved Hospital Problems No resolved problems to display. Active Non Hospital Problems: Active Non-Hospital Problems Diagnosis ??? HFrEF (heart failure with reduced ejection fraction) ??? Stroke ??? Seizures ??? Patient non adherence ??? Kidney stones ??? Depression ??? Back pain ??? Intracranial aneurysm ??? Spondylosis of lumbar region without myelopathy or radiculopathy ??? Chronic migraine without aura without status migrainosus, not intractable ??? Encounter for long-term (current) use of other medications ??? SVT (supraventricular tachycardia) ??? ADD (attention deficit disorder) ??? Scoliosis ??? Heart palpitations ??? Chronic pain syndrome ??? Fibromyalgia ??? Migraines History of Presentation: Per review of relevant records: Ghada Ervin is a 28 y.o. female with a PMH of an unruptured cerebral aneurysms. She was referred to Dr. Castro for evaluation and possible treatment after she suffered recent small right MCA/PCAinfarcts She has history of a right ophthalmic aneurysm treated in [address] Bass. Hospital Course: Ghada Ervin was brought to the Angio suite by Dr. Castro for the aforementioned procedure. Shetolerated the procedure well and suffered no untoward events. Patient was recovered per protocol and subsequently transferred to the ISCU for continued monitoring and post-procedure care. On POD 1 patient reported changes in sensation both in her upper and lower extremities along with having visualdisturbance that she reported is not consistent with her normal migraine symptoms. Patient remainedinpatient and underwent MRI imaging of her cervical and lumbar spine which were both negative for findings that would explain her symptoms. Ophthalmology was consulted and patient was seen at bedside. Again, normal exam without findings. Patient reported symptoms subsided. Patient was continued on her daily Methadone dose of 118mg. She will resume her Methadone per her clinic on discharge and will not be discharged with any prescriptions. At the time of discharge patient is at her neurologic baseline, eating and tolerating a regular diet, ambulating independently and voiding spontaneously. Important Studies and Lab Data: Labs: Lab Results Component Value Date/Time WBC 8.2 09/07/2018 07:44 AM HGB 11.0 (L) 09/07/2018 07:44 AM HCT 34.0 (L) 09/07/2018 07:44 AM PLATELET 251 10/31/2018 06:54 AM NA 143 09/12/2018 06:25 AM K 4.6 09/12/2018 06:25 AM CL 105 09/12/2018 06:25 AM CO2 29 09/12/2018 06:25 AM BUN 17 09/12/2018 06:25 AM CREATININE 0.76 10/31/2018 06:54 AM Studies: CT Head Wo Contrast Result Date: 01/22/2019 EXAMINATION: CT HEAD WO CONTRAST (GENERIC) CLINICAL HISTORY: s/p coiling of unruptured ophthalmic aneurysm, c/o headache TECHNIQUE: CT head performed without intravenous contrast administration. COMPARISON: CT and CTA head October 17, 2018. FINDINGS: RIGHT paraophthalmic coil pack resultant streak artifact limiting evaluation. No acute intracranial hemorrhage definitively appreciated. No evidence ofsignificant mass effect. Focal RIGHT frontal cortical encephalomalacia. Clear paranasal sinuses andmastoid air cells. Intact calvarium. No acute intracranial hemorrhage or mass effect identified. MRI Cervical Spine Wo Contrast Result Date: 01/23/2019 EXAMINATION: MRI CERVICAL SPINE WO CONTRAST (GENERIC) CLINICAL HISTORY: sensory changes in bilateral upper and lower extremities. TECHNIQUE: MRI of the cervical spine performed without intravenous contrast administration. COMPARISON: MRI cervical spine 02/27/2015 FINDINGS: Normal alignment. Normal marrow signal. Normal cervical cord signal. No significant stenosis. No significant change. Normal exam. MRI Lumbar Spine Wo Contrast Result Date: 01/23/2019 EXAMINATION: MRI LUMBAR SPINE WO CONTRAST (GENERIC) CLINICAL HISTORY: bilateral sensory changes in upper and lower extremities TECHNIQUE: MRI of the lumbar spine performed without intravenous contrast administration. COMPARISON: Lumbar spine radiograph 02/07/2018 and MRI 02/27/2015 FINDINGS: Leftward convex curvature of the lumbar spine. Marrow signal is normal. The conus is normal signal and terminates at L1. No significant stenosis. Bilateral sacroiliac arthropathy is partially imaged. No evidence of significant stenosis. Comment: The Following Findings Are So Common In People Without Low Back Pain That While We Report Their Presence, They Must Be Interpreted With Caution And In Context Of The Clinical Situation (Reference- Abivik Et Al, Spine 2001). Findings: (Prevalence In Patients Without Low Back Pain), Disc Degeneration (Decreased T2 Signal, Height Loss, Bulge) (91%), Disc T2-Signal Loss (83%), Disc Height Loss (56%), Disc Bulge (64%), Disc Protrusion (32%), Annular Fissure (38%). Thank you for letting us participate in the care of this patient. For questions regarding this report, please contact the number below. Electronically signed by: Arleth Jain [facility] ([phone]), at 01/23/2019 9:18 AM Pending Studies and Lab Data: No current labs Discharge Condition: Stable Discharge to: Home Discharge Medications: Your Medications Continued medications, unchanged Dose Details acetaminophen 325 mg Tab Commonly known as: TYLENOL Take 2 tablets by mouth every 4 hours as needed for Pain (mild pain). 650 mg Quantity: 30 tablet Refills: 1 aspirin 81 mg Tbec Take 1 tablet by mouth daily. 81 mg Quantity: 30 tablet Refills: 3 calcium carbonate 200 mg calcium (500 mg) Chew Commonly known as: Tums Take 2 tablets by mouth daily as needed. 2 tablet Refills: 0 clopidogrel 75 mg Tab Commonly known as: PLAVIX Take 1 tablet by mouth daily. 75 mg Quantity: 90 tablet Refills: 2 docusate sodium 100 mg Cap Commonly known as: COLACE TAKE ONE CAPSULE BY MOUTH TWICE A DAY Refills: 1 EPINEPHrine 0.3 mg/0.3 mL Atin INJECT INTO THE MUSCLE ONCE DIRECTED NEEDED Refills: 0 FLOVENT HFA 220 mcg/actuation Hfaa Generic drug: fluticasone propionate Refills: 0 hydrOXYzine 25 mg Tab Commonly known as: ATARAX Take 1 tablet by mouth 3 times daily as needed (Use in combination with Naproxen for migraine ). 25 mg Quantity: 30 tablet Refills: 3 lisinopril 5 mg Tab Commonly known as: PRINIVIL;ZESTRIL Take 1 tablet by mouth daily. 5 mg Quantity: 90 tablet Refills: 3 metoprolol succinate 25 mg Tablet sr Commonly known as: TOPROL-XL Take 2 tablets by mouth daily. 50 mg Quantity: 30 tablet Refills: 3 Miscellaneous Medical Supply Misc Measure blood pressure daily. Record pressure Quantity: 1 each Refills: 0 naproxen sodium 550 mg Tab Commonly known as: ANAPROX Take 1 tablet by mouth 3 times daily as needed (Use in combination with Hydroxyzine for migraine ). 550 mg Quantity: 60 tablet Refills: 3 ondansetron 4 mg Tab Commonly known as: ZOFRAN Take 1 tablet by mouth every 8 hours. 4 mg Quantity: 20 tablet Refills: 0 pantoprazole 40 mg Tbec Commonly known as: PROTONIX Take 2 tablets by mouth daily. 80 mg Quantity: 90 tablet Refills: 3 PARoxetine 20 mg Tab Commonly known as: PAXIL Take 20 mg by mouth every morning. 20 mg Refills: 0 pregabalin 75 mg Cap Commonly known as: LYRICA 2 times daily. Refills: 0 PROAIR HFA 90 mcg/actuation Hfaa Generic drug: albuterol Refills: 0 ranitidine 150 mg Tab Commonly known as: ZANTAC Refills: 0 tiZANidine 4 mg Tab Commonly known as: ZANAFLEX Take 1 tablet by mouth 3 times daily. 4 mg Quantity: 30 tablet Refills: 0 STOPPED Medications gabapentin 400 mg Cap Commonly known as: NEURONTIN hydrOXYzine 25 mg Cap Commonly known as: VISTARIL methadone 10 mg/5 mL Soln Commonly known as: Methadose nicotine 21 mg/24 hr Pt24 Commonly known as: NICODERM CQ Updated Allergies/ADRs: Allergies Allergen Reactions ??? Bee Pollen Anaphylaxis ??? Meperidine Hcl Anaphylaxis and Other (See Comments) flushing, respiratory trouble ??? [place] Other (See Comments) Flu like sx ??? Zoloft [Sertraline] Other (See Comments) Flu like sx Follow-up Recommendations for Providers: Please have the patient follow-up with Neurosurgery clinic in 4-6 weeks. Incision: Sutures are absorbable and do not need to be removed. Imaging: No follow-up imaging needed. Outpatient referrals: N/A Instructions Given to Patient at Discharge: Patient Instructions ENDOVASCULAR TREATMENT OF UNRUPTURED INTRACRANIAL ANEURYSM DISCHARGE INSTRUCTIONS PRESCRIPTION INSTRUCTIONS: Please see the medication reconciliation list on this discharge summary for a current list of your medications. If not already on blood thinners, these will be started at the time of your coiling procedure [x] Plavix (clopidogrel): Please take this medication following treatment of your aneurysm. Your doctor will tell you how long you need to be on this medication at your follow up appointment. [x] Aspirin: Please take an aspirin daily for lifelong. This is necessary due to the coils that areplaced in your aneurysm. -Please contact us if you are having bruising, bleeding from gums or nose, or heartburn/stomach pain while taking the blood thinners. WHEN TO SEEK MEDICAL CARE: Signs or symptoms of an infection - Fever over 101F - Redness, swelling, or increasing pain around your puncture site - Drainage of pus or blood from your puncture site Headaches - These can be very intense for a few days, and are partially related to the dye used during the procedure and will get better on their own. - For headaches that are not relieved with pain medications, progressively worsen, or are severe please call New neurologic symptoms - New unsteadiness when walking - New weakness or sensory changes to one side of your body - Slurred speech or difficulty speaking - Facial droop - Confusion - Seizure - Any other concerning neurologic symptom Symptoms of a deep venous thrombosis (DVT) or pulmonary embolism (PE): - Swelling/warmth/redness of the leg - Pain in the leg, which can be worse with standing or walking - Chest pain or shortness of breath To help prevent a DVT: - Exercise regularly. Walking, at least several times daily, is helpful. - Ankle pump exercises (like pressing and releasing the gas pedal) should be done regularly. - Keep hydrated with water or other clear liquids (coffee/tea/cola can dehydrate you). - Avoid alcohol and crossing your legs. - Remember not to sit or lay in bed, while awake, for prolonged amounts of time. WOUND CARE: - The puncture site at the top of your thigh has no sutures. No wound care is necessary. The puncture site at the top of your leg can be very tender for a week or two. Avoid soaking in the tub or swimming for 7 days after procedure. Call us if you develop a hard or expanding lump, or worsening pain. Bruising at the area and along your thigh happens frequently. DIET: - You may resume your usual diet. ACTIVITY: - You may increase your activities as tolerated. - Restrict strenuous activity (such as running, jumping, jogging, shoveling, heavy lifting, etc.) for at least 2 weeks. FOLLOW UP PLAN: [x] Please follow up in the Neurosurgery Clinic in 4-6 . Please call the Neurosurgery Office at [phone] if you do not receive a scheduled appointment within two weeks. You will follow-up with: [] Dr. Reid [x] Dr. Castro Imaging: [x] None [] CT: [] Head [] Neck [] CTA: [] Head [] Neck [] MRA: [] Head [] Neck HOW TO REACH NEUROSURGERY Office Hours: Monday through Monday, 8am-5pm. Call . On weekends or after office hours: Call [phone] and ask the electrode cleaning machine operator to page the Neurosurgery Resident field irrigation worker. IMPORTANT PHONE NUMBERS: Outpatient Nurse (Gladys Latif) Inpatient Nurses Neurosurgical Resident On-Call (after 5pm or before 8am) Neurosurgery offices (Monday through Monday between 8am-5pm): Adult Neurosurgery Dr. Woody Huffman Pediatric Neurosurgery Dr. Johnnie Aponte Associate Providers Nina Grimes, Nurse Practitioner Johnnie Tijerina, Physician Event Marketing Coordinator Cornell Sorensen, Nurse Practitioner Cheri Freeman, Nurse Practitioner Elvia Almonte, Nurse Practitioner Trisha Awad, Nurse Practitioner * Your surgeon may not be rn call center, so be ready to tell about yourself and your surgery when you call, especially after hours or on the weekend. Cheri Freeman APRN 01/23/2019 documented in this encounter Discharge Instructions * Patient Instructions* Cheri Freeman, KIM - 01/23/2019 11:16 AM EDT ENDOVASCULAR TREATMENT OF UNRUPTURED INTRACRANIAL ANEURYSM DISCHARGE INSTRUCTIONS PRESCRIPTION INSTRUCTIONS: Please see the medication reconciliation list on this discharge summary for a current list of your medications. If not already on blood thinners, these will be started at the time of your coiling procedure [x] Plavix (clopidogrel): Please take this medication following treatment of your aneurysm. Your doctor will tell you how long you need to be on this medication at your follow up appointment. [x] Aspirin: Please take an aspirin daily for lifelong. This is necessary due to the coils that areplaced in your aneurysm. -Please contact us if you are having bruising, bleeding from gums or nose, or heartburn/stomach pain while taking the blood thinners. WHEN TO SEEK MEDICAL CARE: Signs or symptoms of an infection - Fever over 101F - Redness, swelling, or increasing pain around your puncture site - Drainage of pus or blood from your puncture site Headaches - These can be very intense for a few days, and are partially related to the dye used during the procedure and will get better on their own. - For headaches that are not relieved with pain medications, progressively worsen, or are severe please call New neurologic symptoms - New unsteadiness when walking - New weakness or sensory changes to one side of your body - Slurred speech or difficulty speaking - Facial droop - Confusion - Seizure - Any other concerning neurologic symptom Symptoms of a deep venous thrombosis (DVT) or pulmonary embolism (PE): - Swelling/warmth/redness of the leg - Pain in the leg, which can be worse with standing or walking - Chest pain or shortness of breath To help prevent a DVT: - Exercise regularly. Walking, at least several times daily, is helpful. - Ankle pump exercises (like pressing and releasing the gas pedal) should be done regularly. - Keep hydrated with water or other clear liquids (coffee/tea/cola can dehydrate you). - Avoid alcohol and crossing your legs. - Remember not to sit or lay in bed, while awake, for prolonged amounts of time. WOUND CARE: - The puncture site at the top of your thigh has no sutures. No wound care is necessary. The puncture site at the top of your leg can be very tender for a week or two. Avoid soaking in the tub or swimming for 7 days after procedure. Call us if you develop a hard or expanding lump, or worsening pain. Bruising at the area and along your thigh happens frequently. DIET: - You may resume your usual diet. ACTIVITY: - You may increase your activities as tolerated. - Restrict strenuous activity (such as running, jumping, jogging, shoveling, heavy lifting, etc.) for at least 2 weeks. FOLLOW UP PLAN: [x] Please follow up in the Neurosurgery Clinic in 4-6 . Please call the Neurosurgery Office at [phone] if you do not receive a scheduled appointment within two weeks. You will follow-up with: [] Dr. Reid [x] Dr. Castro Imaging: [x] None [] CT: [] Head [] Neck [] CTA: [] Head [] Neck [] MRA: [] Head [] Neck documented in this encounter Medications at Time of Discharge Medication Sig Dispensed Refills Start Date End Date clopidogrel (PLAVIX) 75 mg Tablet Take 1 [...] 2 times daily. 01/10/2019 Miscellaneous Medical Supply [facility] Measure blood pressure daily. Record pressure 1 [...] HFA 220 mcg/actuation HFA Aerosol Inhaler 02/02/2018 ranitidine (ZANTAC) 150 mg Tablet 01/02/2019 01/09/2020 hydrOXYzine (ATARAX) 25 mg Tablet Take 1 tablet by mouth 3 times daily as needed (Use in combination with Naproxen for migraine ). 30 tablet 3 01/15/2019 06/14/2019 aspirin 81 mg Tablet, Delayed Release (E.C.) Take 1 tablet by mouth daily. 30 tablet 3 09/12/2018 04/29/2021 tiZANidine (ZANAFLEX) 4 mg Tablet Take 1 tablet by mouth 3 times daily. 30 tablet 09/12/2018 01/09/2020 calcium carbonate (TUMS) 200 mg calcium (500 mg) Tablet, Chewable Take 2 tablets by mouth daily as needed. 2 documented as of this encounter Progress Notes * Alida Macias RN - 01/23/2019 2:41 PM EDT Patient Name: Ghada Ervin Patient Age: 28 y.o. Birthdate: 1990 Admit date: 01/21/2019 Attending Physician: Ayaan Castro MD Patient discharged to home at this time. Dose of methadone given per provider order, time of dose moved up so that pt able to get prior to d/c, as per pt methadone clinic closed. Discharge instructions reviewed with patient and patients mother. Declines questions at this time. Reports understandingof instructions. Belongings packed. IV removed, tip intake and bandaid applied to site. Patient taken to car in wheel chair. * Nikita Manriquez - 01/23/2019 1:39 PM EDT Nutrition Services - Initial Note Ghada Ervin : 1990 AGE: 28 y.o. Patient Active Problem List Diagnosis Date Noted ??? Hospital-Aneurysm of ophthalmic artery 12/22/2018 ??? HFrEF (heart failure with reduced ejection fraction) 09/24/2018 ??? Stroke 09/05/2018 ??? Seizures ??? Patient non adherence ??? Kidney stones ??? Depression ??? Back pain ??? Intracranial aneurysm 05/11/2015 ??? Spondylosis of lumbar region without myelopathy or radiculopathy 04/21/2015 ??? Chronic migraine without aura without status migrainosus, not intractable 03/25/2015 ??? Encounter for long-term (current) use of other medications 10/14/2014 ??? SVT (supraventricular tachycardia) 10/10/2014 ??? ADD (attention deficit disorder) 09/18/2014 ??? Scoliosis 09/18/2014 ??? Heart palpitations 01/15/2014 ??? Chronic pain syndrome 01/15/2014 ??? Fibromyalgia 01/15/2014 ??? Migraines 01/15/2014 Reason for Nutrition Intervention: Patient Eating in ICU Diet Order: Regular Appetite: Okay appetite per patient Food allergies: NKFA Chewing/Swallowing difficulty: none Ht Readings from Last 3 Encounters: 01/21/19 157.5 cm (5' 2) 01/15/19 157.5 cm (5' 2) 10/24/18 157.5 cm (5' 2) Wt Readings from Last 3 Encounters: 01/21/19 103.9 kg (229 lb) 01/15/19 102.1 kg (225 lb) 10/24/18 106 kg (233 lb 11 oz) Body mass index is 41.88 kg/m??. TUMS noted. Assessment: Patient seen regarding ICU admit. Patient reported an okay appetite without difficulty chewing or swallowing, however per patient she is not eating much due to stomach issues. Suggested prunes or prune juice, patient denied at this time. Per patient , she is feeling nauseated today 01/23. Encouraged adding a good source of protein with all meals. Patient requested Boost strawberry to trial. Nursing reported weight of 229 lbs on 01/21, suggest update weight. Per patient, she is consuming around 75% of her meals. Nutrition will continue to monitor and follow up with patient weekly. Nutrition Plan: Continue current diet. Encouraged Protein intake. Patient requested Boost plus to try. Monitor weight. Encourage good po intake. Support and encouragement provided. Nutrition services to follow weekly through hospital course unless consulted in the interim. NELY Royal Pager #[phone] * Alida Macias RN - 01/23/2019 1:17 PM EDT Team paged and at bedside at approximately 1300. Pt requesting prescriptions for more than tylenol and ibuprofen to go home with. Also requesting to get her dose of methadone prior to leaving the hospital as per pt her methadone clinic will be closed before she can get there. Awaiting changes from provider * Radu Guillaume MD - 01/22/2019 10:53 AM EDT NEUROSURGERY PROGRESS NOTE ID: Ghada Ervin is a 28 y.o. female HD# 1 POD # 1 Day Post-Op INTERVAL HX/ROS: Reports visual lights overnight not typical of her migraines. Endorses BLUE numbness and numbness in LLE. MEDICATIONS: Scheduled Meds: ??? sodium chloride 0.9 % (flush) 5 mL Intravenous BID ??? sodium chloride 0.9 % (flush) 5 mL Intravenous BID ??? fluticasone propionate 2 puff Inhalation BID ??? lisinopril 5 mg Oral Daily ??? metoprolol succinate 50 mg Oral Daily ??? ondansetron 4 mg Oral Q8H SAMIR ??? pantoprazole 80 mg Oral Daily ??? PARoxetine 20 mg Oral QAM ??? pregabalin 75 mg Oral BID ??? famotidine 20 mg Oral BID ??? tiZANidine 4 mg Oral TID ??? clopidogrel 75 mg Oral Daily ??? aspirin 81 mg Oral Daily ??? nicotine 1 patch Transdermal Daily And ??? Patch Verification 1 patch Transdermal BID And ??? nicotine 1 patch Transdermal Daily Continuous Infusions: ??? sodium chloride 0.9% infusion 50 mL/hr Intravenous Continuous ### PRN Meds: diazePAM, sodium chloride 0.9 % (flush), lidocaine, hydrALAZINE, sodium chloride 0.9 % (flush), lidocaine, acetaminophen, calcium carbonate, docusate sodium, albuterol, alum-mag hydroxide-simeth EXAM: Vitals: Patient Vitals for the past 24 hrs: Temp Pulse Resp BP SpO2 O2 Flow Rate (L/min) O2 Device 01/21/19 1236 37 ??C (98.6 ??F) (!) 116 25 137/77 96 % 6 L/min Simple mask 01/21/19 1245 -- (!) 120 22 131/85 96 % -- -- 01/21/19 1300 -- (!) 108 17 120/71 97 % 2 L/min NC 01/21/19 1315 -- (!) 101 15 141/82 96 % 2 L/min NC 01/21/19 1330 -- (!) 101 14 134/80 96 % -- -- 01/21/19 1345 -- (!) 106 15 126/83 96 % -- -- 01/21/19 1400 -- (!) 110 18 122/69 98 % 2 L/min NC 01/21/19 1415 -- 86 16 112/56 95 % -- -- 01/21/19 1430 -- 92 17 110/55 96 % -- -- 01/21/19 1445 -- 91 14 97/42 96 % -- -- 01/21/19 1500 -- 90 18 104/49 95 % 2 L/min NC 01/21/19 1515 -- 87 14 96/49 96 % -- -- 01/21/19 1535 37.7 ??C (99.8 ??F) 91 20 105/75 99 % 2 L/min NC 01/21/19 1745 -- 82 -- 109/61 -- -- -- 01/21/19 2000 37.2 ??C (98.9 ??F) 93 19 115/87 99 % -- RA 01/21/19 2100 -- 79 16 116/84 100 % -- -- 01/22/19 0000 -- 73 14 108/65 100 % -- RA 01/22/19 0300 36.8 ??C (98.2 ??F) 74 21 123/73 100 % -- RA 01/22/19 0753 37.1 ??C (98.8 ??F) -- -- -- -- -- -- 01/22/19 0958 -- 82 -- 130/77 -- -- -- BMI: Weight: 103.9 kg (229 lb) (01/21/19 0652) BMI (Calculated): 41.88 BMI Classification: Morbid Obesity I/O: I/O last 3 completed shifts: In: 2389 [P.O.:480; I.V.:1909] Out: 2625 [Urine:2600; Blood:25] GEN:NAD NEURO:AA+Ox3 Speech fluent and appropriate. Naming and repetition intact. PERRL. EOMI. Visual ching full to confrontation. No facial asymmetry Tongue midline MOTOR: RUE:5/5 LUE:4/5 RLE: 5/5 LLE: 4/5 Endorses diminished sensation in BLUE into her entire hands but worse in thumb and index fingers. Does not radiate up arms. In LLE endorses diminished sensation in left foot worse on medial malleoluswhich travels up thigh and wraps around to buttocks. Otherwise LT sensation intact x 4 No elder or clonus. Reflexes 2+ Groin sites without hematoma, distal pulses 2+ Dressings dry and intact LABS: No results for input(s): WBC, HGB, PLATELET in the last 72 hours. No results for input(s): NA, K, CL, CO2, BUN, CREATININE in the last 72 hours. No results for input(s): PT, INR in the last 72 hours. IMAGING: Angiogram with successfull stenting of left ICA aneurysm A/P: Ghada Ervin is a 28 y.o. 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 -Q2HNC -Pain control -Optho c/s for visual symptoms -MRI C and L spine wo for weakness and numbness. -Continue ASA/Plavix PLEASE PAGE [phone] WITH QUESTIONS Active Hospital Problems Diagnosis ??? Aneurysm of ophthalmic artery Resolved Hospital Problems No resolved problems to display. Active Non-Hospital Problems Diagnosis ??? HFrEF (heart failure with reduced ejection fraction) ??? Stroke ??? Seizures ??? Patient non adherence ??? Kidney stones ??? Depression ??? Back pain ??? Intracranial aneurysm ??? Spondylosis of lumbar region without myelopathy or radiculopathy ??? Chronic migraine without aura without status migrainosus, not intractable ??? Encounter for long-term (current) use of other medications ??? SVT (supraventricular tachycardia) ??? ADD (attention deficit disorder) ??? Scoliosis ??? Heart palpitations ??? Chronic pain syndrome ??? Fibromyalgia ??? Migraines Radu Guillaume MD 01/22/2019 Associated attestation - Ayaan Castro MD - 01/22/2019 4:39 PM EDT Saw Ms. Ervin at about 2 pm. Resting in bed. Alert, oriented. Affect bright. Has been suffering visual obscuration and some alternating lights, particularly in periphery -- both eyes and visual ching. PERRL, EOMI, no major visual field loss. Headache is present. Back and leg pain are also present. No major change in strength or language. Left heel pain persists. Tender but not discolored. Perfusion appears good. No skin breakdown. I'm unsure about the etiology of the vision change but is most likely eye related. Plan for evaluation by ophthalmology Will keep watch on left heel given possible pressure-related tissue injury OK to take hydroxyzine and methadone since she tolerates this at home; naproxen also OK. Hydroxyzine and naproxen [facility] Cervical and Lumbar spine MRI requested Working on getting 1x methadone since she is staying a second night. Discussed procedure results. Pipeline stent in good place and covering all the small right ICA aneurysms. * Marito Butler RN - 01/21/2019 11:50 PM EDT Called into room, patient reporting seeing spots in peripheral vision, describing them as red/white/black laser pointers. Midnight neuro check assessment remarkable for increased numbness in all extremities, increased weakness in LUE, unable to move tongue to left. Stating I just don't feel right. I know my body and I know something is wrong. #[id number] notified * Patricia Dimas RN - 01/21/2019 7:57 PM EDT Patient arrived to the floor at 1530. VS -- HR 90 NSR, Temp 99.8, BP 105/75, RR 20, 99% on 2L NC. Patient endorses back pain, given tylenol with some relief. A&Ox4, PERRLA, patient has left sidedweakness at baseline, 5/5 strengths on the RUE and 4/5 otherwise -- see flowsheet for additional information. Patient endorses decreased sensation in the bilateral upper and lower extremities, MD at bedside and aware, will continue to monitor. Has decreased sensation on the left upper and lower extremities at baseline. Able to doppler PT/DP pulses, groin sites with a small amount of serosang drainage. Per orders, HOB <30 and advanced to a regular diet, tolerated well, no N/V. NS going at 50mL/hr. Catheter putting out adequate urine output. Call robert in reach, will continue to monitor. * Candy Wisdom RN - 01/21/2019 12:53 PM EDT 1234 - Arrives to PACU from IR via bed. Crying in pain and moving around the bed. Bilat groin sitesclean dry and intact, soft and flat. C/O back pain, left heel pain, and sore throat. Very anxious, swearing at staff. Insisting on sitting up. Reminded about precautions around groin punctures. Offered repositioning and refused. Report received and care assumed. 1300 - Some relief with dilaudid, willing to try PO now. (previously refused PO) 1325 - c/o chronic heartburn that is bad right now I have a lot of problems with my guts, I vomit my heartburn into my mouth every day 1335 - C/O increased pain. Re-medicated as ordered. 1345 - Rolled for skin assessment, repositioned to Rt side to help with back pain. Pt remains complaining about pain and duration of flat. 1347 - Family to BS 1400 - Turned to left side, seems more comfortable 1515 - Report called to ROBERT Flores ISCU 1525 - To ISCU via bed on monitor with RN documented in this encounter Miscellaneous Notes * Consult Note - Jose Dahl MD - 01/23/2019 9:22 AM EDT Inpatient Ophthalmology Evaluation Req MD: Cheri Moreno MD: Ayaan Castro I was asked to evaluate Ghada Ervin regarding flashing lights. She had stenting of aneurysm 2d ago. She reports peripheral flashing lights OU together, and a sense of snowflakes falling in her vision OU. POH: Migraine with aura PMH: Aneurysm, migraine, anxiety FH: No pertinent history ROS: headaches All others negative Meds: Methadone, nicotine patch, lisinopril, metoprolol, Protonix, Paxil, Pepcid, tizanidine, Plavix, ASA All: Demerol, [place], Zoloft, bee pollen SH: Here with boyfriend Examination Location: [facility] room 86A Ghada Ervin was oriented to person, place and time and had an appropriate affect. VA: 20/25 OD, 20/25 OS VF: CF x 4 OU Pup: 4mm to 2mm OU, no APD IOP: 20 mmHg OD, 19 mmHg OS EOM: full Ext: normal PLE: LLL: quiet OU Conj: quiet OU K: clear OU AC: deep and quiet OU I: normal OU L: clear OU V: clear OU Fundus: disc, macula, vessels and peripheral retina within normal limits OU No vascular emboli, occlusion, heme. No RT/RD. (Dilated with 1% tropicamide and 2.5% phenylephrine at 8:55am) Impression: 1. Photopsias 2. No ocular pathology Comment: Bilateral photopsias (flashes) are almost always a PLATINUMSMITH phenomenon (eg migraine) and not anocular phenomenon. Her normal exam today confirms no ocular involvement. We recommend she establishregular eyecare with her local optometry practice ([facility] I have discussed my findings and concerns with Ms. Ervin and Alida Macias RN. Please don't hesitate to contact me if I can be of more assistance. Jose Dahl MD Section of Ophthalmology [facility] page: [phone], office: [phone] * Plan of Care - Michelle Parikh RN - 01/23/2019 4:25 AM EDT Problem: Skin Integrity Impairment, Risk/Actual (Adult) Goal: Identify Related Risk Factors and Signs and Symptoms Related risk factors and signs and symptoms are identified upon initiation of Human Response Clinical Practice Guideline (CPG) Outcome: Ongoing (Interventions Implemented as Appropriate) 01/22/19 0535 Skin Integrity Impairment, Risk/Actual Skin Integrity Impairment, Risk/Actual: Related Risk Factors edema Signs and Symptoms (Skin Integrity Impairment) edema Goal: Skin Integrity/Wound Healing Patient will demonstrate the desired outcomes by discharge/transition of care. Outcome: Ongoing (Interventions Implemented as Appropriate) 01/22/19 0535 Skin Integrity Impairment, Risk/Actual (Adult) Skin Integrity/Wound Healing making progress toward outcome Problem: Patient Care Overview Goal: Plan of Care Review Outcome: Ongoing (Interventions Implemented as Appropriate) 01/22/19195201/22/191999 Coping/Psychosocial Plan Of Care Reviewed With -- patient Plan of Care Review Progress progress toward functional goals is gradual -- OUTCOME EVALUATION NOTE: OUTCOME SUMMARY: Patient aox4, neuro checks remain unchanged overnight. Patient refuses to follow the HOB restriction of 30 degrees or less, often propping herself up on pillows to elevate her upper half of the body.HOB position locked at 30 degrees and lowered at patients request. Risks explained. VSS on 2LNC placed at patient's request, worn intermittently per patient. Sats high 90s-100s on RA even while sleeping. Patient continues to exhibit inappropriate language and behavior towards staff and roommate. Boundaries verbalized and made clear, patient more redirectable after midnight. MIVF continued. Voids spontaneously without difficulty. PLAN MOVING FORWARD: Discharge planning INDIVIDUALIZED FALL PREVENTION INTERVENTIONS: Patient-specific fall risk factors per assessment: [current deficits]: Weakness, pain, cords Assistance [level of assistance required for transfers and ambulation]: sba Supervision [direct monitoring required during toileting and ADLs]: sba Surveillance [continuous indirect monitoring]: Bed alarm, call robert in reach, purposeful rounding, room near nurses station Patient-specific fall prevention interventions for sensory deficits provided, if applicable: [X] No CPG GOAL OUTCOME EVALUATION: Making progress. Goal: Individualization & Mutuality Outcome: Ongoing (Interventions Implemented as Appropriate) 01/21/191919 Mutuality/Individual Preferences What Anxieties, Fears or Concerns Do You Have About Your Health or Care? none What Questions Do You Have About Your Health or Care? none What Information Would Help Us Give You More Personalized Care? keep me informed about my care Goal: Fall Prevention-Safe Patient Handling 01/22/19 1200 01/22/19199901/23/19399 Serra Fall Risk History of Falling -- 0 -- Secondary Diagnosis -- 15 -- Ambulatory Aids -- 0 -- Intravenous Therapy/Heparin/Saline Lock -- 20 -- Gait/Transferring -- 0 -- Mental Status -- 0 -- Score -- 35 -- OTHER Serra Fall Risk -- Med -- Restraint Interventions Safety Promotion/Fall Prevention -- -- safety round/check completed;nonskid shoes/slippers when outof bed;fall prevention program maintained;activity supervised Positioning Body Position -- -- independent Activity Activity Type bedrest -- -- Goal: Infection Control Outcome: Ongoing (Interventions Implemented as Appropriate) 01/22/19199901/23/19399 Safety Interventions Isolation Precautions -- standard precautions maintained Infection Prevention -- rest/sleep promoted;environmental surveillance performed Coping Strategies Supportive Measures active listening utilized;decision-making supported;positive reinforcement provided;relaxation techniques promoted;verbalization of feelings encouraged -- Goal: Discharge Needs Assessment Outcome: Ongoing (Interventions Implemented as Appropriate) 01/22/19 0535 Discharge Needs Assessment Discharge Disposition still a patient Goal: Interdisciplinary Rounds/Family Conf Outcome: Ongoing (Interventions Implemented as Appropriate) 01/22/19534 Interdisciplinary Rounds/Family Conf Participants nursing;advanced practice nurse;family;patient * Plan of Care - Patricia Dimas RN - 01/22/2019 8:03 PM EDT Problem: Patient Care Overview Goal: Plan of Care Review Outcome: Ongoing (Interventions Implemented as Appropriate) 01/22/191952 Coping/Psychosocial Plan Of Care Reviewed With patient Plan of Care Review Progress progress toward functional goals is gradual OUTCOME EVALUATION NOTE: OUTCOME SUMMARY: A&Ox4, VSS on room air. HR 70-80s, NSR. Neuro checks - PERRLA, continues to report decreased sensation of uppers/lowers, has left sided weakness/decreased sensation at baseline from a previous stroke. Patient also endorses sensory/vision changes, MDs are aware, ophthalmology consulted. Reports seeing flashing lights, black spots. Groins sites with a small amount of dried drainage, some bruising around the left groin site. Went for an MRI today (see note). Spicer was removed, 200mL output, bladder scanned 59mL. Replaced PIV today, fluids running at 50mL/hr. Call robert in reach, will continue to monitor. INDIVIDUALIZED FALL PREVENTION INTERVENTIONS: Patient-specific fall risk factors per assessment: [current deficits]: leads/lines, weakness, vision changes Assistance [level of assistance required for transfers and ambulation]: SBA Supervision [direct monitoring required during toileting and ADLs]: independent Surveillance [continuous indirect monitoring]: rounding, call robert, Flanagan monitor, bed alarm Patient-specific fall prevention interventions for sensory deficits provided, if applicable: [X] N/A * Initial Assessments - Tabby Verma RN - 01/22/2019 11:05 AM EDT Office of Care Management Assessment Medical record reviewed. Plan of care and patient status discussed with direct care RN and/or Care Team in multidisciplinary rounds. Screen[age] y.o. female here for ophthalmic artery aneurysm. Present on Admission: ??? Aneurysm of ophthalmic artery Patient has not been admitted to a hospital within the last 30 days. Patient receiving hospital care under IPI- SDP Admission (IP) status. Admission order reviewed. Primary Insurance on file: MEDICAID [place] Secondary Insurance on file: N/A Primary care provider on file: Frances Sorensen, KIM [phone] Advance Directive on file and Code Status: Full Code -- Patient does not have advanced directives. Education provided and surrogacy reviewed. Pt declined Advanced Planning Booklet and form. If AD's have not been completed pt's mother would be surrogate decision maker per [place] surrogate decision making law. Any patient receiving care at [facility] must abide by [place] law. The hierarchy for surrogate decision making is: (a) Patient???s spouse, or civil union partner or common law spouse unless there is a divorce proceeding, separation agreement, or restraining order limiting that person???s relationship with the patient. (b) Any adult son or daughter of the patient. (c) Either parent of the patient. (d) Any adult brother or sister of the patient. (e) Any adult grandchild of the patient. (f) Any grandparent of the patient. (g) Any adult aunt, uncle, niece, or nephew of the patient. (h) A close friend of the patient. (i) The agent with financial power of workers compensation defense attorney or a conservator appointed in accordance with RSA 464-A. (j) The guardian of the patient???s estate. Patient???s Functional Status: Pt is independent at home and in the community, including driving. Living Situation: Lives with mother, step-father and 4 younger siblings (ages 11,14,18 and 22) in ranch-style home with [phone] [facility] [address] Supports: Supportive family, BARRON Deleon Assessment: Patient with no apparent RNCM/SW needs at this time. No housing, transportation, insurance, resources concerns identified at this time. Supports in place to achieve a safe post-hospital transition. No identified barriers to accessing necessary care and/or follow-up after discharge. Plan: Patient to d/c to home via private vehicle when medically ready. construction craft laborer/Group Segment Consultant will continue to follow patient???s progress and remain available if situation changes for coordination of care, psychosocial support and/or discharge planning. Tabby Verma RN Pager [phone] Extension [phone] * Plan of Care - Marito Butler RN - 01/22/2019 5:49 AM EDT Problem: Patient Care Overview Goal: Plan of Care Review Outcome: Ongoing (Interventions Implemented as Appropriate) 01/22/19 0569 Coping/Psychosocial Plan Of Care Reviewed With patient Plan of Care Review Progress no change OUTCOME EVALUATION NOTE: OUTCOME SUMMARY: Patient A&Ox4, moving all extremities independently, able to make needs known. Started shift reporting mild discomfort in bilateral groins, back, and abdomen. Groin pain increased around 2130, #[id number] notified and present at bedside, one time 2mg PO dilaudid ordered and administered. Groin pain increased again around 0300, #[id number] notified again, another one time 2mg PO dilaudid ordered and administered, #[phone] provider okayed to give PRN valium early. Q4 hour neuro checks remarkable for: Left pronator drift, numbness in all extremities, left sided weakness, patient reports numbness andweakness her baseline but more currently more intense. Around 2300 patient called and reported seeing spots, see note from that time for details, #[id number] notified and STAT head CT ordered and obtained. Abdomen soft but tender to palpation in LLQ and RLQ, reports passing flatus, spicer in place draining adequate amounts of urine. Bilateral groin cites unchanged all night, some dried drainage, soft to touch, tender to palpation.HOB less than or equal to 30 degrees all night. No AM labs ordered, #[id number] notified. See doc flows for detailed assessment. PLAN MOVING FORWARD: Q4 hour neuro checks. INDIVIDUALIZED FALL PREVENTION INTERVENTIONS: Patient-specific fall risk factors per assessment: [current deficits]: Weakness. Assistance [level of assistance required for transfers and ambulation]: Bedrest. Supervision [direct monitoring required during toileting and ADLs]: Hands on. Surveillance [continuous indirect monitoring]: Flanagan ISCU, hourly rounding, bed alarm. Patient-specific fall prevention interventions for sensory deficits provided, if applicable: [X] N/A CPG GOAL OUTCOME EVALUATION: documented in this encounter Plan of Treatment Upcoming Encounters Date Type Department Care Team (Late st Contact Info) Description 01/24/2024 3:40 PM EDT Office Visit Cardiology at [address] [phone] Rangel Willams MD [facility] [place] [address] documented as of this encounter Procedures Procedure Name Priority Date/Time Associated Diagnosis Comments MRI LUMBAR SPINE WITHOUT CONTRAST Routine 01/22/2019 7:45 PM EDT MRI CERVICAL SPINE WO CONTRAST Routine 01/22/2019 7:[address] HEAD WO CONTRAST (GENERIC) STAT 01/22/2019 1:36 AM EDT HC TEST, QUAL, URINE STAT 01/21/2019 11:55 PM EDT BLOOD GAS ARTERIAL POC Routine 01/21/2019 11:06 AM EDT Perm Occlusion/Embolizat Willard drew Cns ([id number]) 01/21/2019 7:56 AM EDT left ophthalmic aneurysm documented in this encounter Results * MRI Lumbar Spine wo Contrast (Generic) (01/22/2019 7:45 PM EDT) Anatomical Region Laterality Modality L-spine Magnetic Resonan ce Impressions 01/23/2019 9:18 AM EDT No evidence of significant stenosis. Comment: The Following Findings Are So Common In People Without Low Back Pain That While We Report Their Presence, They Must Be Interpreted With Caution And In Context Of The Clinical Situation (Reference- Jarvik Et Al, Spine 2001). Findings: (Prevalence In Patients Without Low Back Pain), Disc Degeneration (Decreased T2 Signal, Height Loss, Bulge) (91%), Disc T2-Signal Loss (83%), Disc Height Loss (56%), Disc Bulge (64%), Disc Protrusion (32%), Annular Fissure (38%). Thank you for letting us participate in the care of this patient. For questions regarding this report, please contact the number below. ? Narrative 01/23/2019 9:18 AM EDT EXAMINATION: MRI LUMBAR SPINE WO CONTRAST (GENERIC) CLINICAL HISTORY: bilateral sensory changes in upper and lower extremities TECHNIQUE: MRI of the lumbar spine performed without intravenous contrast administration. COMPARISON: Lumbar spine radiograph 02/07/2018 and MRI 02/27/2015 FINDINGS: Leftward convex curvature of the lumbar spine. Marrow signal is normal. The conus is normal signal and terminates at L1. No significant stenosis. Bilateral sacroiliac arthropathy is partially imaged. Procedure Note Arleth Jain MD - 01/23/2019 EXAMINATION: MRI LUMBAR SPINE WO CONTRAST (GENERIC) CLINICAL HISTORY: bilateral sensory changes in upper and lowerextremities TECHNIQUE: MRI of the lumbar spine performed without intravenous contrastadministration. COMPARISON: Lumbar spine radiograph 02/07/2018 and MRI 02/27/2015 FINDINGS: Leftward convex curvature of the lumbar spine. Marrow signal is normal.The conus is normal signal and terminates at L1. No significant stenosis. Bilateral sacroiliac arthropathy is partially imaged. IMPRESSION No evidence of significant stenosis. Comment: The Following Findings Are So Common In People Without Low BackPain That While We Report Their Presence, They Must Be Interpreted With CautionAnd In Context Of The Clinical Situation (Reference- Simeonk Et Al, [id number]). Findings: (Prevalence In Patients Without Low Back Pain), DiscDegeneration (Decreased T2 Signal, Height Loss, Bulge) (91%), Disc T2-Signal Loss(83%), Disc Height Loss (56%), Disc Bulge (64%), Disc Protrusion (32%), AnnularFissure (38%). Thank you for letting us participate in the care of this patient. Forquestions regarding this report, please contact the number below. Electronically signed by: Sword C [facility]([phone]), at 01/23/2019 9:18 AM Cheri Freeman ELECTRIC OPERATOR IMG MRI ORDERAB LES * MRI Cervical Spine wo Contrast (Generic) (01/22/2019 7:45 PM EDT) Anatomical Region Laterality Modality C-spine Magnetic Resonan ce Impressions 01/23/2019 9:16 AM EDT Normal exam. Thank you for letting us participate in the care of this patient. For questions regarding this report, please contact the number below. ? Electronically signed by: Arleth Jain [facility] ([phone]), at 01/23/2019 9:16 AM Narrative 01/23/2019 9:16 AM EDT EXAMINATION: MRI CERVICAL SPINE WO CONTRAST (GENERIC) CLINICAL HISTORY: sensory changes in bilateral upper and lower extremities. TECHNIQUE: MRI of the cervical spine performed without intravenous contrast administration. COMPARISON: MRI cervical spine 02/27/2015 FINDINGS: Normal alignment. Normal marrow signal. Normal cervical cord signal. No significant stenosis. No significant change. Procedure Note Arleth Jain MD - 01/23/2019 EXAMINATION: MRI CERVICAL SPINE WO CONTRAST (GENERIC) CLINICAL HISTORY: sensory changes in bilateral upper and lowerextremities. TECHNIQUE: MRI of the cervical spine performed without intravenous contrastadministration. COMPARISON: MRI cervical spine 02/27/2015 FINDINGS: Normal alignment. Normal marrow signal. Normal cervical cord signal. No significant stenosis. No significant change. IMPRESSION Normal exam. Thank you for letting us participate in the care of this patient. Forquestions regarding this report, please contact the number below. Electronically signed by: Arleth Jain [facility]([phone]), at 01/23/2019 9:16 AM Cheri Freeman ELECTRIC OPERATOR IMG MRI ORDERAB LES * CT Head wo Contrast (Generic) (01/22/2019 1:36 AM EDT) Anatomical Region Laterality Modality Head Computed Tomogra phy Impressions 01/22/2019 2:04 AM EDT No acute intracranial hemorrhage or mass effect identified. Thank you for letting us participate in the care of this patient. For questions regarding this report, please contact the number below. ? Electronically signed by: Feng La [facility] ([phone]), at 01/22/2019 2:04 AM Narrative 01/22/2019 2:04 AM EDT EXAMINATION: CT HEAD WO CONTRAST (GENERIC) CLINICAL HISTORY: s/p coiling of unruptured ophthalmic aneurysm, c/o headache TECHNIQUE: CT head performed without intravenous contrast administration. COMPARISON: CT and CTA head October 17, 2018. FINDINGS: RIGHT paraophthalmic coil pack resultant streak artifact limiting evaluation. No acute intracranial hemorrhage definitively appreciated. No evidence of significant mass effect. Focal RIGHT frontal cortical encephalomalacia. Clear paranasal sinuses and mastoid air cells. Intact calvarium. Procedure Note Feng La MD - 01/22/2019 EXAMINATION: CT HEAD WO CONTRAST (GENERIC) CLINICAL HISTORY: s/p coiling of unruptured ophthalmic aneurysm, c/oheadache TECHNIQUE: CT head performed without intravenous contrast administration. COMPARISON: CT and CTA head October 17, 2018. FINDINGS: RIGHT paraophthalmic coil pack resultant streak artifact limitingevaluation. No acute intracranial hemorrhage definitively appreciated. No evidence of significant mass effect. Focal RIGHT frontal cortical encephalomalacia.Clear paranasal sinuses and mastoid air cells. Intact calvarium. IMPRESSION No acute intracranial hemorrhage or mass effect identified. Thank you for letting us participate in the care of this patient. Forquestions regarding this report, please contact the number below. Electronically signed by: Feng La [facility]([phone]), at 01/22/2019 2:04 AM Elvia Almonte APRN IMG CT ORDERABLES * urine, qualitative ([place] [place] [place] (01/21/2019 11:55 PM EDT) Specific [place] Urine Automated 1.010 1.002 - 1.030 [facility] Comment: As of 2018, this testing was performed using the [employer]. Due to a change in the UA Chemistry Strip used with this analyzer, the resulting values and upper limit for this analyte may vary slightly. Critical values and reporting units remain the same. Human Chorionic Gonadotropin Qualitative, Urine Negative [facility] Comment: If Specific [place] is less than 1.010, a negative result is obtained, and is still suspected, a repeat on a first morning specimen is recommended. Urine specimen (specimen) 01/21/2019 11:55 PM EDT 01/22/2019 12:08 AM EDT Narrative Resulting Agency Comment Spec In Lab Elvia Almonte APRN URINE ORDERABLES [facility] [place] [address] * (ABNORMAL) BLOOD GAS 2 ARTERIAL (01/21/2019 11:06 AM EDT) pH, Arterial 7.43 7.35 - 7.45 [facility] PCO2, Arterial 30(L) 35 - [address] [facility] PO2, Arterial 140(H) 85 - [address] [facility] Bicarbonate, Arterial 19.5(L) 20.0 - 26.0 mmol/L [facility] Base Excess, Arterial -4.8(L) -3.0 - 3.0 mmol/L [facility] Hgb Blood Gas 11.6(L) 11.7 - 15.5 gm/dL [facility] Oxyhemoglobin, Arterial 95.8 94.0 - 97.0 % [facility] Carboxyhemoglob in, Arterial 2.9 % [facility] Comment: Nonsmokers: 0.5-1.5% COHB Smokers: Variable, but usually less than 10% Toxic: 20-30% COHB Lethal: Greater than 60% COHB Methemoglobin, Arterial 0.3 <=1.5 % [facility] Na Whole Blood 135 135 - 145 mmol/L [facility] K Whole Blood 4.0 3.5 - 5.0 mmol/L [facility] Comment: Please note: Patients with WBC >100,000 may have falsely elevated Potassium levels. Contact the Clinical Chemistry Laboratory if there are any questions. ICa Whole Blood 1.09(L) 1.15 - 1.33 mmol/L [facility] Comment: Note: ??Total bilirubin higher than 20 mg/dL may lead to falsely low ionized calcium. CL Whole Blood 109(H) 98 - 107 mmol/L [facility] Gluc Whole Bld 92 65 - 199 mg/dL [facility] Comment:Diabetes: >=200 mg/d L plus symptoms. 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, nonruptured documented in this encounter Admitting Diagnoses Diagnosis Aneurysm of ophthalmic artery Cerebral aneurysm, nonruptured documented in this encounter Administered Medications Inactive Administered Medications - up to 3 most recent administrations Medication Order MAR Action Action Date Dose Rate Site acetaminophen (TYLENOL) tablet 650 mg 650 mg, Oral, EVERY 4 HOURS PRN, Starting on Mon01/21/19 at 1327, Until Mon01/23/19 at 1701, Pain, mild pain, Maximum dose of acetaminophen is 4000 mg from all sources in 24 hours., Routine Given 01/23/2019 9:11 AM EDT 650 mg Given 01/22/2019 8:28 PM EDT 650 mg Given 01/22/2019 9:58 AM EDT 650 mg alum-mag hydroxide-simeth (Maalox) (40 mg-40 mg-4 mg/mL) oral liquid 10 mL 10 mL, Oral, 3 TIMES DAILY PRN, Starting on Mon01/21/19 at 1325, Until Mon01/23/19 at 1701, Heartburn, Routine aspirin chewable tablet 81 mg 81 mg, Oral, DAILY, First dose (after last modification) on Mon01/21/19 at 2330, Until Discontinued, Routine Given 01/23/2019 9:11 AM EDT 81 mg Given 01/21/2019 11:43 PM EDT 81 mg calcium carbonate (Tums) chewable tablet 1,000 mg 1,000 mg (2 tablet), Oral, DAILY PRN, Starting on Mon01/21/19 at 1327, Until Mon01/23/19 at 1701, Heartburn, Routine Given 01/22/2019 6:34 PM EDT 1,000 mg Given 01/21/2019 1:30 PM EDT 1,000 mg clopidogrel (PLAVIX) tablet 75 mg 75 mg, Oral, DAILY, First dose on Mon01/21/19 at 2200, Until Discontinued, Routine Given 01/23/2019 9:11 AM EDT 75 mg Given 01/21/2019 9:44 PM EDT 75 mg diazePAM (VALIUM) tablet 5 mg 5 mg, Oral, EVERY 6 HOURS PRN, Starting on Mon01/21/19 at 1249, Until Mon01/23/19 at 1701, Anxiety, Routine Given 01/23/2019 9:25 AM EDT 5 mg Given 01/22/2019 6:34 PM EDT 5 mg Given 01/22/2019 10:00 AM EDT 5 mg docusate sodium (COLACE) capsule 100 mg 100 mg, Oral, DAILY PRN, Starting on Mon01/21/19 at 1640, Until Mon01/23/19 at 1701, Constipation, Routine Given 01/21/2019 9:44 PM EDT 100 mg famotidine (PEPCID) tablet 20 mg 20 mg, Oral, 2 TIMES DAILY, First dose on Mon01/21/19 at 1345, Until Discontinued Given 01/23/2019 9:11 AM EDT 20 mg Given 01/22/2019 8:28 PM EDT 20 mg Given 01/22/2019 9:58 AM EDT 20 mg fluticasone propionate (FLOVENT) 220 mcg/actuation inhaler 2 puff 2 puff, Inhalation, 2 TIMES DAILY, First dose on Mon01/21/19 at 2100, Until Discontinued, Shake well; Rinse mouth after administration., Routine Given 01/23/2019 9:16 AM EDT 2 puffs Given 01/22/2019 8:34 PM EDT 2 puffs Given 01/22/2019 10:09 AM EDT 2 puffs hydrALAZINE (APRESOLINE) injection 10 mg 10 mg, Intravenous, EVERY 1 HOUR PRN, Starting on Mon01/21/19 at 1314, Until Mon01/23/19 at 1701, High Blood Pressure, SBP > 180 mmHg, Target systolic blood pressure (SBP) less than 180 mmHg. Administer 10 mg IV . May repeat once in 15 minutes if SBP greater than target BP (caution if HR greater than 90). Use if labetalol ineffective after 1 hour., Routine HYDROmorphone (DILAUDID) injection 0.2-0.4 mg 0.2-0.4 mg, Intravenous, EVERY 5 MIN PRN, Starting on Mon01/21/19 at 1200, Until Mon01/21/19 at 1447, Pain, Give 0.2 mg every 5 minutes PRN for mild to moderate pain (1-5) Give 0.4 mg every 5 minutes PRN for moderate to severe pain (6-10). Hold for respiratory rate less than 10 per minute. Maximum dose 4 mg over one hour. If multiple pain medications are ordered, start with hydromorphone or morphine and use fentanyl for breakthrough pain., PACU Recovery, Routine Given 01/21/2019 1:46 PM EDT 0.4 mg Given 01/21/2019 1:34 PM EDT 0.4 mg Given 01/21/2019 1:02 PM EDT 0.4 mg HYDROmorphone (DILAUDID) tablet 2 mg 2 mg, Oral, ONCE PRN, 1 dose, Starting on Mon01/21/19 at 2131, Until Mon01/21/19 at 2144, Pain, Routine Given 01/21/2019 9:44 PM EDT 2 mg HYDROmorphone (DILAUDID) tablet 2 mg 2 mg, Oral, ONCE PRN, 1 dose, Starting on Mon01/22/19 at 0304, Until Mon01/22/19 at 0316, Pain, Routine Given 01/22/2019 3:16 AM EDT 2 mg hydrOXYzine (ATARAX) tablet 25 mg 25 mg, Oral, 4 TIMES DAILY PRN, Starting on Mon01/22/19 at 1502, Until Mon01/23/19 at 1701, Itching, Routine Given 01/22/2019 8:30 PM EDT 25 mg lidocaine (LIDODERM) 5 % patch 1 patch 1 patch, Transdermal, EVERY 24 HOURS, First dose on Mon01/22/19 at 2030, Until Discontinued, Apply patch(es) for 12 hours, and then remove for 12 hours, Routine Patch Applied 01/22/2019 8:30 PM EDT 1 patch 07- Back Lower (Left) lidocaine (LIDODERM) 5 %(700 mg/patch) Patch Removal Transdermal, EVERY 24 HOURS, First dose on Mon01/23/19 at 0815, Until Discontinued, Remove lidocaine 5 %(700 mg/patch) patch lidocaine (XYLOCAINE) 10 mg/mL (1 %) injection 3 mg 3 mg (0.3 mL), Subcutaneous, ONCE PRN, 1 dose, Starting on Mon01/21/19 at 1640, Until Mon01/23/19 at 1701, for discomfort with PIV insertion, Recovery (Recovery-Hospital Unit), Routine lidocaine (XYLOCAINE) 10 mg/mL (1 %) injection 3 mg 3 mg (0.3 mL), Subcutaneous, ONCE PRN, 1 dose, Starting on Mon01/21/19 at 1933, Until Mon01/23/19 at 1701, for discomfort with PIV insertion, Routine lisinopril (PRINIVIL;ZESTRIL) tablet 5 mg 5 mg, Oral, DAILY, First dose on Mon01/21/19 at 1700, Until Discontinued, Routine Given 01/23/2019 9:11 AM EDT 5 mg Given 01/22/2019 9:58 AM EDT 5 mg Given 01/21/2019 9:45 PM EDT 5 mg melatonin tablet 6 mg 6 mg, Oral, NIGHTLY PRN, Starting on Mon01/22/19 at 2021, Until Mon01/23/19 at 1701, Sleep, Routine Given 01/22/2019 8:29 PM EDT 6 mg methadone (Dolophine) (10 mg/mL) oral liquid 118 mg 118 mg, Oral, EVERY 24 HOURS, First dose on Mon01/22/19 at 1600, Until Discontinued, Liquid methadone should be used to avoid diversion, and a mouth check should be performed after each dose., Routine, Name of [facility]? [facility] phone: [phone], Date last Methadone dose was given at the Outpatient Clinic? 01/21/2019, Dose of Methadone provided at the clinic? 118mg Given 01/23/2019 1:55 PM EDT 118 mg Given 01/22/2019 6:36 PM EDT 118 mg metoprolol succinate (TOPROL-XL) XL tablet 50 mg 50 mg, Oral, DAILY, First dose on Mon01/21/19 at 1700, Until Discontinued, DO NOT CRUSH OR OPEN, Routine Given 01/23/2019 9:12 AM EDT 50 mg Given 01/22/2019 9:58 AM EDT 50 mg Given 01/21/2019 5:45 PM EDT 50 mg naproxen (NAPROSYN) tablet 250 mg 250 mg, Oral, 2 TIMES DAILY PRN, Starting on Mon01/22/19 at 1503, Until Mon01/23/19 at 1701, Pain, Take with food or milk, Routine Given 01/23/2019 9:11 AM E DT 250 mg Given 01/22/2019 8:35 PM EDT 250 mg nicotine (NICODERM CQ) 14 mg/24 hr patch 14 mg 14 mg (1 patch), Transdermal, Administer over 24 Hours, DAILY, First dose on Mon01/22/19 at 0900, Until Discontinued, Routine Given 01/22/2019 9:58 AM EDT 14 mg 10- Arm Upper (Right ) nicotine (NICODERM CQ) 14 mg/24 hr patch 14 mg 14 mg (1 patch), Transdermal, Administer over 24 Hours, EVERY 24 HOURS, First dose (after last reorder) on Mon01/22/19 at 2100, Until Discontinued, Routine Given 01/22/2019 8:44 PM EDT 14 mg 04- Shoulder (Right) nicotine (NICODERM CQ) 14 mg/24 hr patch Patch Removal Transdermal, NIGHTLY, First dose (after last reorder) on Mon01/22/19 at 2100, Until Discontinued, Remove nicotine 14 mg/24 hr patch nicotine (NICODERM CQ) 14 mg/24 hr patch Patch Verification Transdermal, 2 TIMES DAILY, First dose (after last reorder) on Mon01/22/19 at 2100, Until Discontinued, Verify nicotine 14 mg/24 hr patch. ondansetron (ZOFRAN) tablet 4 mg 4 mg, Oral, EVERY 8 HOURS SCHEDULED, First dose on Mon01/21/19 at 1715, Until Discontinued, Routine Given 01/22/2019 2:53 PM EDT 4 mg Given 01/22/2019 6:57 AM EDT 4 mg Given 01/21/2019 10:00 PM EDT 4 mg pantoprazole (PROTONIX) tablet 80 mg 80 mg, Oral, DAILY, First dose on Mon01/21/19 at 1345, Until Discontinued, DO NOT CRUSH OR OPEN, Routine Given 01/23/2019 9:11 AM EDT 80 mg Given 01/22/2019 9:59 AM EDT 80 mg Given 01/21/2019 1:37 PM EDT 80 mg PARoxetine (PAXIL) tablet 20 mg 20 mg, Oral, EVERY MORNING, First dose on Mon01/22/19 at 0700, Until Discontinued, Routine Given 01/23/2019 6:56 AM EDT 20 mg Given 01/22/2019 6:57 AM EDT 20 mg pregabalin (LYRICA) capsule 75 mg 75 mg, Oral, 2 TIMES DAILY, First dose on Mon01/21/19 at 1345, Until Discontinued, Routine Given 01/23/2019 9:12 AM EDT 75 mg Given 01/22/2019 8:29 PM EDT 75 mg Given 01/22/2019 9:58 AM EDT 75 mg sodium chloride 0.9 % (flush) flush 5 mL 5 mL, Intravenous, 2 TIMES DAILY, First dose on Mon01/21/19 at 2100, Until Discontinued, Recovery (Recovery-Hospital Unit), Routine Given 01/23/2019 9:15 AM EDT 5 mLs Given 01/22/2019 10:10 AM EDT 5 mLs sodium chloride 0.9 % (flush) flush 5 mL 5 mL, Intravenous, 2 TIMES DAILY, First dose on Mon01/21/19 at 2100, Until Discontinued, Routine Given 01/23/2019 9:15 AM EDT 5 mLs Given 01/22/2019 8:33 PM EDT 5 mLs Given 01/22/2019 10:10 AM EDT 5 mLs sodium chloride 0.9 % (flush) flush 5-20 mL 5-20 mL, Intravenous, EVERY 1 MIN PRN, Starting on Mon01/21/19 at 1640, Until Mon01/23/19 at 1701, flush, Flush pertains to all indwelling lines. Flush per protocol found in the job aid using the link provided on this medication record., Recovery (Recovery-Hospital Unit), Routine sodium chloride 0.9 % (flush) flush 5-20 mL 5-20 mL, Intravenous, EVERY 1 MIN PRN, Starting on Mon01/21/19 at 1933, Until Mon01/23/19 at 1701, flush, Flush pertains to all indwelling lines. Flush per protocol found in the job aid using the link provided on this medication record., Routine sodium chloride 0.9% infusion 50 mL/hr, Intravenous, CONTINUOUS, Starting on Mon01/21/19 at 1345, Until Mon01/23/19 at 1701, Recovery (Recovery-Hospital Unit) Restarted 01/22/2019 5:08 PM EDT 50 mL/hr 50 mL/ hr Rate/Dose Verify 01/21/2019 8:00 PM EDT 50 mL/hr 50 mL/h r Rate/Dose Verify 01/21/2019 3:59 PM EDT 50 mL/hr 50 mL/h r tiZANidine (ZANAFLEX) tablet 4 mg 4 mg, Oral, 3 TIMES DAILY, First dose on Mon01/21/19 at 1500, Until Discontinued, Routine Given 01/23/2019 9:12 AM EDT 4 mg Given 01/22/2019 8:29 PM EDT 4 mg Given 01/22/2019 2:53 PM EDT 4 mg documented in this encounter Active and Recently Administered Medications Times are shown in EDT. Scheduled Medication Order 01/21/2019 01/22/2019 01/23/2019 aspirin chewable tablet 81 mg 81 mg, Oral, DAILY, First dose (after last modification) on Mon01/21/19 at 2330, Until Discontinued, Routine 2343 (Given - Provider: Marito Butler RN) 0911 (Given - Provider: Alida Macias RN) ceFAZolin (ANCEF) 2g in dextrose 5% 100 mL (COMPLETED) 2 g, Intravenous, ONCE, 1 dose, On Mon01/21/19 at 0745, Administer over 30 Minutes, Redose every 3 hours if CrCl is greater than 20. Redose every 8 hours if CrCl is less than 20., Angio/IR (Day of Procedure), Indication for (Active or Suspected): Prophylaxis 0830 (Given - Provider: Sudhir Grullon)1123 (Given - Provider: Sudhir Grullon) clopidogrel (PLAVIX) tablet 75 mg 75 mg, Oral, DAILY, First dose on Mon01/21/19 at 2200, Until Discontinued, Routine 2144 (Given - Provider: Marito Butler RN) 0911 (Given - Provider: Alida Macias RN) famotidine (PEPCID) tablet 20 mg 20 mg, Oral, 2 TIMES DAILY, First dose on Mon01/21/19 at 1345, Until Discontinued 1337 (Given - Provider: Candy Wisdom RN)2016 (Given - Provider: Magy Carlos RN) 0958 (Given - Provider: Patricia Dimas RN)2027 (Given - Provider: Rosita Monsalve, ROBERT) 0911 (Given - Provider: Alida Macias RN) fluticasone propionate (FLOVENT) 220 mcg/actuation inhaler 2 puff 2 puff, Inhalation, 2 TIMES DAILY, First dose on Mon01/21/19 at 2100, Until Discontinued, Shake well; Rinse mouth after administration., Routine 2017 (Given - Provider: Magy Carlos RN) 100 (Given - Provider: Patricia Dimas RN)2033 (Given - Provider: Rosita Monsalve RN) 0916 (Given - Provider: Alida Macias RN) lidocaine (LIDODERM) 5 % patch 1 patch(Linked Group 1) 1 patch, Transdermal, EVERY 24 HOURS, First dose on Mon01/22/19 at 2030, Until Discontinued, Apply patch(es) for 12 hours, and then remove for 12 hours, Routine 2030 (Patch Applied - Provider: Rosita Monsalve RN) lidocaine (LIDODERM) 5 %(700 mg/patch) Patch Removal(Linked Group 1) Transdermal, EVERY 24 HOURS, First dose on Mon01/23/19 at 0815, Until Discontinued, Remove lidocaine 5 %(700 mg/patch) patch 0815 (Patch Removed - Provider: Alida Macias RN) lisinopril (PRINIVIL;ZESTRIL) tablet 5 mg 5 mg, Oral, DAILY, First dose on Mon01/21/19 at 1700, Until Discontinued, Routine 214 (Given - Provider: Marito Butler RN) 0958 (Given - Provider: Patricia Dimas RN) 0911 (Given - Provider: Alida Macias RN) methadone (Dolophine) (10 mg/mL) oral liquid 118 mg 118 mg, Oral, EVERY 24 HOURS, First dose on Mon01/22/19 at 1600, Until Discontinued, Liquid methadone should be used to avoid diversion, and a mouth check should be performed after each dose., Routine, Name of [facility]'s [facility] clinic? [facility] phone: [phone], Date last Methadone dose was given at the Outpatient Clinic? 01/21/2019, Dose of Methadone provided at the clinic? 118mg 1836 (Given - Provider: Rosita Monsalve RN) 1355 (Given - Provider: Alida Macias RN) metoprolol succinate (TOPROL-XL) XL tablet 50 mg 50 mg, Oral, DAILY, First dose on Mon01/21/19 at 1700, Until Discontinued, DO NOT CRUSH OR OPEN, Routine 1745 (Given - Provider: Patricia Dimas RN) 0958 (Given - Provider: Patricia Dimas RN) 0912 (Given - Provider: Alida Macias RN) nicotine (NICODERM CQ) 14 mg/24 hr patch 14 mg (CANCELED)(Linked Group 2) 14 mg (1 patch), Transdermal, Administer over 24 Hours, DAILY, First dose on Mon01/22/19 at 0900, Until Discontinued, Routine 09 (Given - Provider: Patricia Dimas RN) nicotine (NICODERM CQ) 14 mg/24 hr patch 14 mg(Linked Group 3) 14 mg (1 patch), Transdermal, Administer over 24 Hours, EVERY 24 HOURS, First dose (after last reorder) on Mon01/22/19 at 2100, Until Discontinued, Routine 2043 (Given - Provider: Rosita Monsalve RN) nicotine (NICODERM CQ) 14 mg/24 hr patch Patch Removal(Linked Group 3) Transdermal, NIGHTLY, First dose (after last reorder) on Mon01/22/19 at 2100, Until Discontinued, Remove nicotine 14 mg/24 hr patch 0900 (Patch Removed - Provider: Alida Macias RN) nicotine (NICODERM CQ) 14 mg/24 hr patch Patch Verification(Linked Group 3) Transdermal, 2 TIMES DAILY, First dose (after last reorder) on Mon01/22/19 at 2100, Until Discontinued, Verify nicotine 14 mg/24 hr patch. 2044 (Patch (dose and location) verified - Provider: Rosita Monsalve RN) 0900 (Patch (dose and location) verified - Provider: Alida Macias RN) ondansetron (ZOFRAN) tablet 4 mg 4 mg, Oral, EVERY 8 HOURS SCHEDULED, First dose on Mon01/21/19 at 1715, Until Discontinued, Routine 1715 (Not Given - Provider: Patricia Dimas RN - Reason: Patient/family refused)2200 (Given - Provider: Marito Butler, ROBERT) 0657 (Given - Provider: Marito Butler, ROBERT)1453 (Given - Provider: Patricia Dimas RN)2200 (Not Given - Provider: Michelle Parikh RN - Reason: Patient/family refused) 0600 (Not Given - Provider: Michelle Parikh, ROBERT - Reason: Contraindicated)1400 (Not Given - Provider: Alida Macias RN - Reason: See comment - Comment: patient d/c'd) pantoprazole (PROTONIX) tablet 80 mg 80 mg, Oral, DAILY, First dose on Mon01/21/19 at 1345, Until Discontinued, DO NOT CRUSH OR OPEN, Routine 1337 (Given - Provider: Candy Wisdom RN) 0959 (Given - Provider: Patricia Dimas RN) 0911 (Given - Provider: Alida Macias, ROBERT) PARoxetine (PAXIL) tablet 20 mg 20 mg, Oral, EVERY MORNING, First dose on Mon01/22/19 at 0700, Until Discontinued, Routine 0657 (Given - Provider: Marito Butler RN) 0656 (Given - Provider: Michelle Parikh RN) pregabalin (LYRICA) capsule 75 mg 75 mg, Oral, 2 TIMES DAILY, First dose on Mon01/21/19 at 1345, Until Discontinued, Routine 1337 (Given - Provider: Candy Wisdom RN)2016 (Given - Provider: Magy Carlos RN) 0958 (Given - Provider: Patricia Dimas RN)2028 (Given - Provider: Rosita Monsalve RN) 0912 (Given - Provider: Alida Macias, ROBERT) sodium chloride 0.9 % (flush) flush 5 mL 5 mL, Intravenous, 2 TIMES DAILY, First dose on Mon01/21/19 at 2100, Until Discontinued, Recovery (Recovery-Hospital Unit), Routine 2099 (Not Given - Provider: Magy Carlos RN - Reason: See comment - Comment: duplicate order) 1010 (Given - Provider: Patricia Dimas RN)2032 (Not Given - Provider: Rosita Monsalve RN - Reason: Loss of access - Comment: patient only has one IV see other order) 0915 (Given - Provider: Alida Macias RN) sodium chloride 0.9 % (flush) flush 5 mL 5 mL, Intravenous, 2 TIMES DAILY, First dose on Mon01/21/19 at 2100, Until Discontinued, Routine 2017 (Given - Provider: Magy Carlos RN) 1010 (Given - Provider: Patricia Dimas RN)2032 (Given - Provider: Rosita Monsalve RN) 0915 (Given - Provider: Alida Macias RN) tiZANidine (ZANAFLEX) tablet 4 mg 4 mg, Oral, 3 TIMES DAILY, First dose on Mon01/21/19 at 1500, Until Discontinued, Routine 1523 (Given - Provider: Candy Wisdom RN)2017 (Given - Provider: Magy Carlos RN) 0959 (Given - Provider: Patricia Dimas RN)1453 (Given - Provider: Patricia Dimas RN)2028 (Given - Provider: Rosita Monsalve RN) 0912 (Given - Provider: Alida Macias RN) Continuous Medication Order 01/21/2019 01/22/2019 01/23/2019 sodium chloride 0.9% infusion 50 mL/hr, Intravenous, CONTINUOUS, Starting on Mon01/21/19 at 1345, Until Mon01/23/19 at 1701, Recovery (Recovery-Hospital Unit) 1334 (New Bag - Provider: Candy Wisdom RN)1559 (Rate/Dose Verify - Provider: Patricia Dimas RN)2000 (Rate/Dose Verify - Provider: Marito Butler RN) 1030 (Stopped - Provider: Patricia Dimas RN - Comment: IV dislodged/removed, MD at bedside and aware - verbal orders, OK to discontinue fluids, per MD)1708 (Restarted - Provider: Patricia Dimas RN) PRN Medication Order 01/21/2019 01/22/2019 01/23/2019 acetaminophen (TYLENOL) tablet 650 mg 650 mg, Oral, EVERY 4 HOURS PRN, Starting on Mon01/21/19 at 1327, Until Mon01/23/19 at 1701, Pain, mild pain, Maximum dose of acetaminophen is 4000 mg from all sources in 24 hours., Routine 1337 (Given - Provider: Candy Wisdom RN)1745 (Given - Provider: Patricia Dimas RN)2144 (Given - Provider: Marito Butler RN) 0142 (Given - Provider: Marito Butler RN)0958 (Given - Provider: Patricia Dimas RN)202 (Given - Provider: Rosita Monsalve, ROBERT) 0911 (Given - Provider: Alida Macias RN) albuterol (PROVENTIL) nebulizer solution 2.5 mg 2.5 mg, Nebulization, EVERY 4 HOURS PRN, Starting on Mon01/21/19 at 1640, Until Mon01/23/19 at 1701, Wheezing, Routine alum-mag hydroxide-simeth (Maalox) (40 mg-40 mg-4 mg/mL) oral liquid 10 mL 10 mL, Oral, 3 TIMES DAILY PRN, Starting on Mon01/21/19 at 1325, Until Mon01/23/19 at 1701, Heartburn, Routine calcium carbonate (Tums) chewable tablet 1,000 mg 1,000 mg (2 tablet), Oral, DAILY PRN, Starting on Mon01/21/19 at 1327, Until Mon01/23/19 at 1701, Heartburn, Routine 1330 (Given - Provider: Candy Wisdom RN) 1834 (Given - Provider: Alida Macias RN) diazePAM (VALIUM) tablet 5 mg 5 mg, Oral, EVERY 6 HOURS PRN, Starting on Mon01/21/19 at 1249, Until Mon01/23/19 at 1701, Anxiety, Routine 1305 (Given - Provider: Candy Wisdom RN)2144 (Given - Provider: Marito Butler, ROBERT) 0316 (Given - Provider: Marito Butler RN - Comment: okay to give early per #[id number] provider)1000 (Given - Provider: Patricia Dimas RN)1834 (Given - Provider: Alida Macias, ROBERT) 0925 (Given - Provider: Alida Macias, ROBERT) docusate sodium (COLACE) capsule 100 mg 100 mg, Oral, DAILY PRN, Starting on Mon01/21/19 at 1640, Until Mon01/23/19 at 1701, Constipation, Routine 2144 (Given - Provider: Marito Butler, ROBERT) hydrALAZINE (APRESOLINE) injection 10 mg 10 mg, Intravenous, EVERY 1 HOUR PRN, Starting on Mon01/21/19 at 1314, Until Mon01/23/19 at 1701, High Blood Pressure, SBP > 180 mmHg, Target systolic blood pressure (SBP) less than 180 mmHg. Administer 10 mg IV . May repeat once in 15 minutes if SBP greater than target BP (caution if HR greater than 90). Use if labetalol ineffective after 1 hour., Routine HYDROmorphone (DILAUDID) injection 0.2-0.4 mg (CANCELED) 0.2-0.4 mg, Intravenous, EVERY 5 MIN PRN, Starting on Mon01/21/19 at 1200, Until Mon01/21/19 at 1447, Pain, Give 0.2 mg every 5 minutes PRN for mild to moderate pain (1-5) Give 0.4 mg every 5 minutes PRN for moderate to severe pain (6-10). Hold for respiratory rate less than 10 per minute. Maximum dose 4 mg over one hour. If multiple pain medications are ordered, start with hydromorphone or morphine and use fentanyl for breakthrough pain., PACU Recovery, Routine 1252 (Given - Provider: Candy Wisdom RN)1257 (Given - Provider: Candy Wisdom RN)1302 (Given - Provider: Candy Wisdom RN)1334 (Given - Provider: Candy Wisdom RN)1346 (Given - Provider: Candy Wisdom RN) HYDROmorphone (DILAUDID) tablet 2 mg (COMPLETED) 2 mg, Oral, ONCE PRN, 1 dose, Starting on Mon01/21/19 at 2131, Until Mon01/21/19 at 2144, Pain, Routine 2144 (Given - Provider: Marito Butler RN) HYDROmorphone (DILAUDID) tablet 2 mg (COMPLETED) 2 mg, Oral, ONCE PRN, 1 dose, Starting on Mon01/22/19 at 0304, Until Mon01/22/19 at 0316, Pain, Routine 0316 (Given - Provider: Marito Butler, ROBERT) hydrOXYzine (ATARAX) tablet 25 mg 25 mg, Oral, 4 TIMES DAILY PRN, Starting on Mon01/22/19 at 1502, Until Mon01/23/19 at 1701, Itching, Routine 2030 (Given - Provider: Rosita Monsalve RN) lidocaine (XYLOCAINE) 10 mg/mL (1 %) injection 3 mg 3 mg (0.3 mL), Subcutaneous, ONCE PRN, 1 dose, Starting on Mon01/21/19 at 1640, Until Mon01/23/19 at 1701, for discomfort with PIV insertion, Recovery (Recovery-Hospital Unit), Routine lidocaine (XYLOCAINE) 10 mg/mL (1 %) injection 3 mg 3 mg (0.3 mL), Subcutaneous, ONCE PRN, 1 dose, Starting on Mon01/21/19 at 1933, Until Mon01/23/19 at 1701, for discomfort with PIV insertion, Routine melatonin tablet 6 mg 6 mg, Oral, NIGHTLY PRN, Starting on Mon01/22/19 at 2021, Until Mon01/23/19 at 1701, Sleep, Routine 2028 (Given - Provider: Rosita Monsalve, RN) naproxen (NAPROSYN) tablet 250 mg 250 mg, Oral, 2 TIMES DAILY PRN, Starting on Mon01/22/19 at 1503, Until Mon01/23/19 at 1701, Pain, Take with food or milk, Routine 2034 (Given - Provider: Rosita Monsalve, RN) 0911 (Given - Provider: Alida Mcaias RN) sodium chloride 0.9 % (flush) flush 5-20 mL 5-20 mL, Intravenous, EVERY 1 MIN PRN, Starting on Mon01/21/19 at 1640, Until Mon01/23/19 at 1701, flush, Flush pertains to all indwelling lines. Flush per protocol found in the job aid using the link provided on this medication record., Recovery (Recovery-Hospital Unit), Routine sodium chloride 0.9 % (flush) flush 5-20 mL 5-20 mL, Intravenous, EVERY 1 MIN PRN, Starting on Mon01/21/19 at 1933, Until Mon01/23/19 at 1701, flush, Flush pertains to all indwelling lines. Flush per protocol found in the job aid using the link provided on this medication record., Routine Linked Groups Order Group 1: lidocaine (LIDODERM) 5 % patch 1 patchJump to med 1 patch, Transdermal, EVERY 24 HOURS, First dose on Mon01/22/19 at 2030, Until Discontinued, Apply patch(es) for 12 hours, and then remove for 12 hours, Routine And lidocaine (LIDODERM) 5 %(700 mg/patch) Patch RemovalJump to med Transdermal, EVERY 24 HOURS, First dose on Mon01/23/19 at 0815, Until Discontinued, Remove lidocaine 5 %(700 mg/patch) patch Group 2: nicotine (NICODERM CQ) 14 mg/24 hr patch 14 mg (CANCELED)Jump to med 14 mg (1 patch), Transdermal, Administer over 24 Hours, DAILY, First dose on Mon01/22/19 at 0900, Until Discontinued, Routine And nicotine (NICODERM CQ) 14 mg/24 hr patch Patch Verification (CANCELED) Transdermal, 2 TIMES DAILY, First dose on Mon01/22/19 at 1115, Until Discontinued, Verify nicotine 14 mg/24 hr patch. And nicotine (NICODERM CQ) 14 mg/24 hr patch Patch Removal (CANCELED) Transdermal, DAILY, First dose on Mon01/22/19 at 2315, Until Discontinued, Remove nicotine 14 mg/24 hr patch Group 3: nicotine (NICODERM CQ) 14 mg/24 hr patch 14 mgJump to med 14 mg (1 patch), Transdermal, Administer over 24 Hours, EVERY 24 HOURS, First dose (after last reorder) on Mon01/22/19 at 2100, Until Discontinued, Routine And nicotine (NICODERM CQ) 14 mg/24 hr patch Patch VerificationJump to med Transdermal, 2 TIMES DAILY, First dose (after last reorder) on Mon01/22/19 at 2100, Until Discontinued, Verify nicotine 14 mg/24 hr patch. And nicotine (NICODERM CQ) 14 mg/24 hr patch Patch RemovalJump to med Transdermal, NIGHTLY, First dose (after last reorder) on Mon01/22/19 at 2100, Until Discontinued, Remove nicotine 14 mg/24 hr patch documented in this encounter Care Teams Fast Food Restaurant Manager Relationship Specialty Start Date End Date Frances Sorensen APRN [address] [place] [address] PCP - General Family Medicine 01/21/19 02/15/22 documented as of this encounter
--- OUTSIDE RECORDS SUMMARY | 2023-12-27 19:45 | XMS_ITS | Encounter Summary ---
[place] [address] Care Team Providers Care Nurse Liaison Name Role Phone Frances Sorensen KIM Primary Care Provider Reason for Referral * Diagnostic Test (Routine) - Closed Specialty Diagnoses / Procedures Referred By Lang sanches Referred To Contact Radiology Diagnoses Cerebral aneurysm without rupture Procedures IR Embolization Intracranial Ayaan Castro MD [facility] [place] [address] [place] [address] Referral ID Status Reason Start Date Expiration Date V isits Requested Visits Authorized [id number] Closed Specialty Service Requested 11/06/2018 11/06/2019 1 1 Reason for Visit * Auth/Cert Specialty Diagnoses / Procedures Referred By Lang sanches Referred To Contact Diagnoses left ophthalmic aneurysm Procedures PRO PERM OCCLUSION/EMBOLIZATION, PERCUT, GLUE SIZE MACHINE OPERATOR @TRANSCATHETER OCCLUSION/EMBOLIZATION FOR TUMOR DESTRUCTION Referral ID Status Reason Start Date Expiration Date Visits Re quested Visits Authorized [id number] 1 1 Encounter Details Date Type Department Care Team (Latest Contact Info) Description 01/21/2019 7:30 AM EDT - 01/21/2019 11:59 PM EDT Hospital En[place] [address] Ayaan Castro MD [facility] [address] [place] [address] Cerebral aneurysm without rupture Discharge Disposition: Home Social History Tobacco Use [...] 2 times daily. 01/10/2019 Miscellaneous Medical Supply [facility] – [...] HFA 220 mcg/actuation HFA Aerosol Inhaler 02/02/2018 methadone (METHADOSE) 10 mg/5 mL Solution Take by mouth every 4 hours as needed for Pain. 01/23/2019 ranitidine (ZANTAC) 150 mg Tablet 01/02/2019 01/09/2020 hydrOXYzine (ATARAX) 25 mg Tablet Take 1 tablet by mouth 3 times daily as needed (Use in combination with Naproxen for migraine ). 30 tablet 3 01/15/2019 06/14/2019 clopidogrel (PLAVIX) 75 mg Tablet Take 1 tablet by mouth daily. 90 tablet 3 12/30/2018 01/23/2019 hydrOXYzine (VISTARIL) 25 mg Capsule Take 2 capsules by mouth 3 times daily as needed for Itching. 30 capsule 12 10/24/2018 01/23/2019 aspirin 81 mg Tablet, Delayed Release (E.C.) Take 1 tablet by mouth daily. 30 tablet 3 09/12/2018 04/29/2021 tiZANidine (ZANAFLEX) 4 mg Tablet Take 1 tablet by mouth 3 times daily. 30 tablet 09/12/2018 01/09/2020 nicotine (NICODERM CQ) 21 mg/[address] 1 patch onto the skin daily. 28 patch 09/12/2018 01/23/2019 gabapentin (NEURONTIN) 400 mg Capsule Take 1 capsule by mouth 3 times daily. 84 capsule 3 11/25/2015 01/23/2019 calcium carbonate (TUMS) 200 mg calcium (500 mg) Tablet, Chewable Take 2 tablets by mouth daily as needed. 04/29/2021 documented as of this encounter H&P Notes * Johnnie Maria P - 01/21/2019 7:01 AM EDT INTERVENTIONAL RADIOLOGY FOCUSED H&P: Procedure: Planned procedure: Cerebral Angiogram. Pipeline Stenting and/or Endocoiling of 3 mm leftophthalmic aneurysm. The patient's history and physical exam have been reviewed and completed. There has been no interval change from that of the pre-operative history and physical exam done within the last 30 days. Physical Exam: Cardiovascular: Regular, Normal Pulmonary: Breath sounds clear to auscultation The planned procedure (and sedation plan if appropriate) , its benefits and risks, and alternativeswere discussed with the patient. The patient consented to the procedure. PRE-SEDATION ASSESSMENT: Sedation Plan: anesthesia ASA: 2: Patient with mild systemic disease Mallampati: III: only the base of the uvula can be seen Confirm NPO status: Yes History of anesthetic complications: No Current medications reviewed: Yes Allergies reviewed: Yes documented in this encounter Miscellaneous Notes * Brief Op Note - Nicolas Roca MD - 01/21/2019 12:19 PM EDT INTERVENTIONAL RADIOLOGY BRIEF PROCEDURE NOTE Patient Name: Ghada Ervin : 1990 Case Date: 01/21/2019 Operators: Attending: Ayaan Castro MD All Staff: Nicolas Roca MD, Johnnie Maria DO Staff No Staff Documented Post-operative diagnosis/Indication: Cerebral aneurysm without rupture Name of Procedure Performed: Planned procedure: Cerebral Angiogram. Pipeline Stenting and/or Endocoiling of 3 mm left ophthalmic aneurysm. Description of the procedure: R DRY CLEANING TEACHER, L DRY CLEANING TEACHER access Left ICA angiography Pipeline stenting of left ICA aneurysm Angioseal closure of R DRY CLEANING TEACHER Mynx closure of L DRY CLEANING TEACHER Findings of the procedure: multiple small left ICA aneurysms EBL: <50 mL Specimens: None Complications: No immediate Plan/Disposition: NSCU FULL PROCEDURE NOTE TO FOLLOW IN IMAGE REPORT documented in this encounter Plan of Treatment Upcoming Encounters Date Type Department Care Team (Late st Contact Info) Description 01/24/2024 3:40 PM EDT Office Visit Cardiology at [address] [address] Rangel Willams MD [facility] [place] [address] documented as of this encounter Procedures Procedure Name Priority Date/Time Associated Diagnosis Comments IR EMBOLIZATION INTRACRANIAL Routine 01/21/2019 12:31 PM EDT Cerebral aneurysm without rupture documented in this encounter Results * IR Embolization Intracranial (01/21/2019 12:31 PM EDT) Anatomical Region Laterality Modality Head X-Ray Angiograph y Impressions 01/29/2019 6:41 AM EDT 1. 3 ??left supraclinoid ??ICA aneurysms 2. Technically successful deployment of Pipeline flow diverting stents in the left ICA across each of the 3 aneurysms. Thank you for letting us participate in the care of this patient. For questions regarding this report, please contact the number below. ? Narrative 01/29/2019 6:41 AM EDT EXAMINATION: IR EMBOLIZATION INTRACRANIAL CLINICAL HISTORY: left ophthalmic aneurysm; Exam/Procedure requested: pipeline or coil embolization OPERATORS: Dr. Nicolas Roca, Dr. Johnnie Maria Attending: Dr. Castro. I, Ayaan Castro, was present for and performing the entire procedure. PROCEDURE: 1. Cerebral angiogram. 2. Flow diverting stent placement in the left ICA at the site of the ophthalmic segment aneurysms. 3. Angioseal closure of femoral arteriotomy ANESTHESIA: General endotracheal anesthesia EBL: <30 ml CONTRAST: 80 mL Visipaque-320. RADIATION EXPOSURE: A-plane 767 mGy, B-plane 208 mGy. MATERIALS: Micropuncture set, 6Fr Neuron max guide sheath, 5 Fr Mayito catheter, 5Fr Navien Guide Catheter, Phenom 27 microcatheter, Synchro-2 microwire, 6Fr Angio-Seal closure device, 6/7 Luxembourger Mynx vascular closure device. Pipeline flex 4 mm by 20 mm, and 4.25 mm x 14 mm flow diverting stents. TECHNIQUE: The procedure and its risks were discussed with the patient and written informed consent obtained. The patient was brought to the angiography suite and placed under general anesthesia. The right groin was sterilely prepped and draped. A small amount of 1% lidocaine was applied at the planned puncture site. Using micropuncture set, the femoral artery was accessed and the 6Fr neuron max sheath placed, flushed, and connected to a continuous heparinized saline infusion. 5 Luxembourger Mayito catheter was used to select the common carotid artery, and the sheath advanced into the common carotid artery. Biplane angiography was performed. A 4 Luxembourger sheath was placed in the left common femoral artery for continuous monitoringof arterial pressure. Baseline ACT was measured Heparin was administered with intermittent boluses to maintain ACT between 2 times baseline and 300 seconds. The 5 Fr Navien guide catheter was advanced over the microwire and microcatheter into the left ICA. The microcatheter was directed into the left middle cerebral artery over the microwire. The wire was removed, and stent device advanced into the catheter. The stent was partially unsheathed and retracted to the target landing zone in the ICA. The stent was then deployed in the ICA without difficulty. A J configuration was then made in the synchro wire which was passed through the stent without difficulty.. Biplane rotational angiography was performed. Microcatheter was advanced into the MCA second time, and second Pipeline device was applied and the ICA beginning more distally in the ICA and extending into the previously placed stent. Sychro wire was then passed through the stent again without difficulty. Repeat angiography acquired via the sheath. Rotational Mariama CT performed. The microcather was removed. Guide catheter was removed. Hand-injected sheath angiogram of the common femoral artery was performed. The 6Fr Angio-Seal closure device was not able to be deployed at the arteriotomy site, 6/7 Luxembourger Mynx device was successfully placed with good hemostasis. Left DRY CLEANING TEACHER sheath was removed with manual pressure for hemostasis. There were no other immediate complications. The patient was transferred to the ICU in stable condition. FINDINGS: Left COMMON CAROTID ROADMAP: There is no atherosclerotic stenosis at the carotid bifurcation. Left cervical internal carotid artery is normal in caliber. LEFT INTERNAL CAROTID ARTERY INJECTION: 2 irregular 2-3 mm aneurysms project superiorly from the ICA, near the ophthalmic origin. A small dorsal outpouching is present more distally of the ICA; no branch arises from it. MCA, KONRAD and branches are normal. LEFT INTERNAL CAROTID ARTERY INJECTIONS (HAND-INJECTED DURING STENT PLACEMENT): Multiplane injected runs were acquired during stent deployment demonstrate expected appearance of the stent and ICA. No stenosis or occlusion. LEFT INTERNAL CAROTID ARTERY INJECTION (POST STENT DEPLOYMENT): There is no evidence of thrombus. Distal flow is robust. No focal stenosis. Rotational angiogram study demonstrated good wall apposition. COMMON FEMORAL ARTERY ROADMAP INJECTION: Puncture is above the bifurcation. Common femoral arteries normal in caliber. Procedure Note Ayaan Castro MD - 01/29/2019 EXAMINATION: IR EMBOLIZATION INTRACRANIAL CLINICAL HISTORY: left ophthalmic aneurysm; Exam/Procedure requested:pipeline or coil embolization OPERATORS: Dr. Nicolas Roca, Dr. Johnnie Maria Attending: Dr. Castro. IAyaan, was present for and performingthe entire procedure. PROCEDURE: 1. Cerebral angiogram. 2. Flow diverting stent placement in the left ICA at the site of theophthalmic segment aneurysms. 3. Angioseal closure of femoral arteriotomy ANESTHESIA: General endotracheal anesthesia EBL: <30 ml CONTRAST: 80 mL Visipaque-320. RADIATION EXPOSURE: A-plane 767 mGy, B-plane 208 mGy. MATERIALS: Micropuncture set, 6Fr Neuron max guide sheath, 5 Fr Daviscatheter, 5Fr Navien Guide Catheter, Phenom 27 microcatheter, Synchro-2 microwire,6Fr Angio-Seal closure device, 6/7 Luxembourger Mynx vascular closure device.Pipeline flex 4 mm by 20 mm, and 4.25 mm x 14 mm flow diverting stents. TECHNIQUE: The procedure and its risks were discussed with the patientand written informed consent obtained. The patient was brought to theangiography suite and placed under general anesthesia. The right groin was sterilelyprepped and draped. A small amount of 1% lidocaine was applied at the plannedpuncture site. Using micropuncture set, the femoral artery was accessed and the6Fr neuron max sheath placed, flushed, and connected to a continuousheparinized saline infusion. 5 Luxembourger Mayito catheter was used to select the commoncarotid artery, and the sheath advanced into the common carotid artery. Biplane angiography was performed. A 4 Luxembourger sheath was placed in the leftcommon femoral artery for continuous monitoringof arterial pressure. Baseline ACT was measured Heparin was administered with intermittentboluses to maintain ACT between 2 times baseline and 300 seconds. The 5 Fr Navien guide catheter was advanced over the microwire andmicrocatheter into the left ICA. The microcatheter was directed into the left middlecerebral artery over the microwire. The wire was removed, and stent device advancedinto the catheter. The stent was partially unsheathed and retracted to thetarget landing zone in the ICA. The stent was then deployed in the ICA without difficulty. A J configuration was then made in the synchro wire which waspassed through the stent without difficulty.. Biplane rotational angiographywas performed. Microcatheter was advanced into the MCA second time, andsecond Pipeline device was applied and the ICA beginning more distally in the ICAand extending into the previously placed stent. Sychro wire was then passedthrough the stent again without difficulty. Repeat angiography acquired via the sheath. Rotational Mariama CT performed.The microcather was removed. Guide catheter was removed. Hand-injectedsheath angiogram of the common femoral artery was performed. The 6Fr Angio-Sealclosure device was not able to be deployed at the arteriotomy site, 6/7 FrenchMynx device was successfully placed with good hemostasis. Left DRY CLEANING TEACHER sheath wasremoved with manual pressure for hemostasis. There were no other immediate complications. The patient was transferredto the ICU in stable condition. FINDINGS: Left COMMON CAROTID ROADMAP: There is no atherosclerotic stenosis at thecarotid bifurcation. Left cervical internal carotid artery is normal in caliber. LEFT INTERNAL CAROTID ARTERY INJECTION: 2 irregular 2-3 mm aneurysmsproject superiorly from the ICA, near the ophthalmic origin. A small dorsaloutpouching is present more distally of the ICA; no branch arises from it. MCA, ACAand branches are normal. LEFT INTERNAL CAROTID ARTERY INJECTIONS (HAND-INJECTED DURING STENTPLACEMENT): Multiplane injected runs were acquired during stent deploymentdemonstrate expected appearance of the stent and ICA. No stenosis or occlusion. LEFT INTERNAL CAROTID ARTERY INJECTION (POST STENT DEPLOYMENT): There isno evidence of thrombus. Distal flow is robust. No focal stenosis.Rotational angiogram study demonstrated good wall apposition. COMMON FEMORAL ARTERY ROADMAP INJECTION: Puncture is above thebifurcation. Common femoral arteries normal in caliber. IMPRESSION 1. 3 left supraclinoid ICA aneurysms 2. Technically successful deployment of Pipeline flow diverting stents inthe left ICA across each of the 3 aneurysms. Thank you for letting us participate in the care of this patient. Forquestions regarding this report, please contact the number below. Ayaan Castro MD IMG IR ORDERABLES documented in this encounter Visit Diagnoses Diagnosis Cerebral aneurysm without rupture Cerebral aneurysm, nonruptured documented in this encounter Administered Medications Inactive Administered Medications - up to 3 most recent administrations Medication Order MAR Action Action Date Dose Rate Site iodixanol (VISIPAQUE) 320 mg iodine/mL injection 300 mL 300 mL, Intra-arterial, ONCE PRN, 1 dose, Starting on Mon01/21/19 at 1207, Until Mon01/21/19 at 1232, Per Protocol, Routine Given 01/21/2019 12:32 PM EDT 130 mLs documented in this encounter Care Teams Nurse Liaison Relationship Specialty Start Date End Date Frances Sorensen APRN [address] [place] [address] PCP - General Family Medicine 01/21/19 02/15/22 documented as of this encounter
--- OUTSIDE RECORDS SUMMARY | 2023-12-27 19:45 | XMS_ITS | Encounter Summary ---
Author Organization [facility] [place] [address] Care Team Providers Care Defence Force Member Other Ranks Name Role Phone Frances Sorensen APRN Primary Care Provider [phone] Encounter Details Date Type Department Care Team (Late st Contact Info) Description 01/30/2019 Ancillary Procedure [place] [phone] Frances Sorensen APRN [address] [place], [place] [address] Social History Tobacco Use Types Packs/Day Years [...] 3:40 PM EDT Office Visit Cardiology at [address] [phone] Rangel Willams MD [facility] [place] [address] documented as of this encounter Procedures Procedure Name Priority Date/Time Associated Diagnosis Comments FILM LIBRARY STORAGE ONLY CT CHEST ABDOMEN PELVIS Routine 01/30/2019 12:00 AM EDT documented in this encounter Results * Film Library- Storage Only CT Chest Abdomen Pelvis (01/30/2019 12:00 AM EDT) Narrative RAD - 08/12/2021 3:47 PM EDT This exam is auto-finalizing. It's purpose is for storage only. Frances Sorensen APRN Stephanie FILM LIBRARY ORD ERABLES [place], [place] documented in this encounter Visit Diagnoses Not on filedocumented in this encounter Care Teams Defence Force Member Other Ranks Relationship Specialty Start Date End Date Frances Sorensen APRN [address] [place] [address] PCP - General Family Medicine 01/21/19 02/15/22 documented as of this encounter
--- OUTSIDE RECORDS SUMMARY | 2023-12-27 19:45 | XMS_ITS | Encounter Summary ---
[place] [address] Care Team Providers Care Drill Runner Helper Name Role Phone Unknown Primary Care Provider Unavailabl e Encounter Details Date Type Department Care Team (Late st Contact Info) Description 12/27/2018 Telephone [place] [phone] Luiza Colbert Social History Tobacco Use Types [...] * Telephone Encounter - Nina Ruiz - 01/10/2019 1:55 PM EDT I called Ghada and KAYKAY for her to call us back to discuss. * Telephone Encounter - Luiza Colbert - 01/10/2019 1:13 PM EDT Pt called back scheduled for 01/15. *RN Pt having angio with Matthew on 01/21 Is there anything we need to do prior for her methadone that she takes? She is on 118mg per day. Dr. Ignacia Bonilla from [facility] in [facility] is her doctor [phone]. * Telephone Encounter - Luiza Colbert - 01/10/2019 8:47 AM EDT LM for pt to call back to schedule appt with Dr. Castro for 01/15 and have her blood drawn. * Telephone Encounter - Luiza Colbert - 01/07/2019 9:19 AM EDT LM for patient to schedule f/u appt with Dr. Castro and have labs drawn on 01/15. Per Dr. Castro needsto discuss angio on 01/21. * Telephone Encounter - Luiza Colbert - 01/04/2019 12:18 PM EDT Ghada Jaramillo has not called back in regards to confirming she will get her blood drawn a day prior to her 01/21 angio. I know you said you needed to discuss with her the procedure and if you wouldn't alsomind talking to her about the blood draw too. [phone] (Mom's Cell#) or [phone] * Telephone Encounter - Luiza Colbert - 12/27/2018 10:35 AM EDT LM for pt regarding needing blood drawn prior to 01/[address] Castro. *Platelet test only done at [facility]. Patient to have blood drawn after starting plavix. documented in this encounter Plan of Treatment Upcoming Encounters Date Type Department Care Team (Late st Contact Info) Description 01/24/2024 3:40 PM EDT Office Visit Cardiology at [address] [phone] Rangel Willams MD [facility] [place] [address] documented as of this encounter Visit Diagnoses Not on filedocumented in this encounter Care Teams Drill Runner Helper Relationship Specialty Start Date End Date Unknown None PCP - General 11/22/18 01/20/19 documented as of this encounter
--- OUTSIDE RECORDS SUMMARY | 2023-12-27 19:45 | XMS_ITS | Encounter Summary ---
[place] [address] Care Team Providers Care Band Sawyer Name Role Phone Frances Sorensen KIM Primary Care Provider [phone] Encounter Details Date Type Department Care Team (Late st Contact Info) Description 05/16/2019 Telephone Cardiology at [address] [phone] Greg Chang, RN Social History Tobacco Use Types Packs/Day [...] encounter Miscellaneous Notes * Telephone Encounter - Greg Chang, RN - 05/16/2019 3:38 PM EST VM received from Ms. Ervin. Seeking letter of clearance for planned Dental procedure at [facility]. Notes Dental provider has asked that she secure written clearance from both her Cylinder Grinder and her Neurologist. Anticipaiting gas (Anesthesia). Note routed to Dr. Willams and to Anthony Ortega for review and letter of clearance. [facility]. ?? UNIQUE with Dr. Willams 09/29/18: ?? Assessment and Plan 27 yo female with complex history who I am seeing to evaluate for PFO closure. This is following recent hospitalization for stroke syndrome with MRI showing findings ipsilateral to previously coiled aneurysm while on no anti-platelet agent. The patient clearly has a PFO with high risk features (ASAand 'large' shunt) for recurrent stroke. Though paradoxic embolism is a possible etiology, embolismfrom previously coiled aneurysm is more likely. 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 ?? Suggest to continue patient on DAPT. If patient has recurrent stroke by MRI while on DAPT can re-evaluate then ?? I reviewed at length the above findings and outlined the logic with a current plan. The patient appears to understand and is in agreement with the plan going forward. ?? Rangel Willams M.D., F.A.C.C. freezing room worker Next scheduled office visit with Mr. Ortega 06/18/2019. Waldo Chang RNconstruction producer Team Nurse [facility] Ambulatory Cardiology documented in this encounter Plan of Treatment Upcoming Encounters Date Type Department Care Team (Late st Contact Info) Description 01/24/2024 3:40 PM EDT Office Visit Cardiology at [address] [address] Rangel Willams MD [facility] [place] [place] [address] documented as of this encounter Visit Diagnoses Not on filedocumented in this encounter Care Teams Band Sawyer Relationship Specialty Start Date End Date Frances Sorensen APRN [address] [place] [address] PCP - General Family Medicine 01/21/19 02/15/22 documented as of this encounter
--- OUTSIDE RECORDS SUMMARY | 2023-12-27 19:45 | XMS_ITS | Encounter Summary ---
[place] [address] Care Team Providers Care Acquisition Consultant Name Role Phone Frances Sorensen KIM Primary Care Provider [phone] Encounter Details Date Type Department Care Team (Late st Contact Info) Description 04/09/2019 [place] [address] Elise Meyer Social History Tobacco Use Types [...] Telephone Encounter - Gladys Latif RN - 04/09/2019 9:33 AM EST I left a vm message letting Ghada know I was returning her call and gave my direct phone number for her to call back when available. * Telephone Encounter - Elise Meyer - 04/09/2019 9:00 AM EST Caller: Patient If not the patient: Name of caller: Relationship to patient: Personal Rep on file?: Best time to reach caller: any Best number to reach caller: [phone] (M) / Deidre Ervin - [phone] cell - verbal permission Reason for call: Pt is experiencing s/s and would like to discuss. New number listed for calling Recent Surgery?: no If before 4:00 pm: [...] 3:40 PM EDT Office Visit Cardiology at [address] [address] Rangel Willams MD [facility] [place] [address] documented as of this encounter Visit Diagnoses Not on filedocumented in this encounter Care Teams Acquisition Consultant Relationship Specialty Start Date End Date Frances Sorensen APRN [address] [place] [address] PCP - General Family Medicine 01/21/19 02/15/22 documented as of this encounter
--- OUTSIDE RECORDS SUMMARY | 2023-12-27 19:45 | XMS_ITS | Encounter Summary ---
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 Procedures IR Arteriogram Cerebral Ayaan Castro MD [facility] [place] [address] [place] [address] Referral ID Status Reason Start Date Expiration Date V isits Requested Visits Authorized [id number] Closed Specialty Service Requested 10/24/2018 10/24/2019 1 1 Reason for Visit * Reason Comments Advice Only Per CE appt Encounter Details Date Type Department Care Team (Late st Contact Info) Description 10/24/2018 1:00 PM EDT Office [place] [address] Ayaan Castro MD [facility] [place] [address] Cerebral aneurysm without rupture; 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; Intracranial carotid stenosis, unspecified laterality Social History Tobacco Use Types Packs/Day Years [...] Sign Reading Time Taken Comments Blood Pressure 112/76 10/24/2018 12:47 PM EDT Pulse 84 10/24/2018 12:47 PM EDT Temperature - - Respiratory Rate - - Oxygen Saturation - - Inhaled Oxygen Concentration - - Weight 106 kg (233 lb 11 oz) 10/24/2018 12:47 PM EDT Height 157.5 cm (5' 2) 10/24/2018 12:47 PM EDT Body Mass Index 42.74 10/24/2018 12:47 PM EDT documented in this encounter Progress Notes * Ayaan Castro MD - 10/24/2018 1:00 PM EDT Interventional Neuroradiology Clinic Initial Visit Office Note Note Author: Ayaan Castro MD Chief Complaint: Cerebral aneurysm History of present illness: Ghada Ervin is a 27 y.o. woman with an unruptured cerebral aneurysms, referred for evaluation and possible treatment after she suffered recent infarcts. She had a right ophthalmic aneurysm [place] in [address] Bass. This involved stent-assistance. This was accomplished without adverse event. At some points both Plavix and aspirin were stopped. She was admitted 09/05 with new headaches and left-sided weakness. Several small recent right MCA/BURLESQUE DANCER infarcts were found and she was restarted on antiplatelet therapy. No additional events have occurred though the headache remains substantial and she takes regular naproxen and hydroxyzine for this. FH: Aunt and cousin with ruptured aneurysms. Past Medical History: Diagnosis Date ??? ADD (attention deficit disorder) 09/18/2014 ??? Back pain ??? Chronic pain syndrome 01/15/2014 ??? Depression ??? Fibromyalgia 01/15/2014 ??? Heart palpitations 01/15/2014 ??? Kidney stones ??? Migraines 01/15/2014 ??? Patient non adherence ??? Scoliosis 09/18/2014 ??? Seizures Current Outpatient Medications on File Prior to Visit Medication Sig Dispense Refill ??? metoprolol succinate (TOPROL-XL) 25 mg Tablet Sustained Release 24 hr Take 2 tablets by mouth daily. 30 tablet 3 ??? aspirin 81 mg Tablet, Delayed Release (E.C.) Take 1 tablet by mouth daily. 30 tablet 3 ??? hydrOXYzine (ATARAX) 25 mg Tablet Take 1 tablet by mouth 3 times daily as needed (Use in combination with Naproxen for migraine ). (Patient taking differently: Take 25 mg by mouth 3 timesdaily.) 30 tablet 3 ??? naproxen sodium (ANAPROX) 550 mg Tablet Take 1 tablet by mouth 3 times daily as needed (Use in combination with Hydroxyzine for migraine ). 60 tablet 3 ??? clopidogrel (PLAVIX) 75 mg Tablet Take 1 tablet by mouth daily. 90 tablet 3 ??? lisinopril (PRINIVIL;ZESTRIL) 5 mg Tablet Take 1 tablet by mouth daily. 90 tablet 3 ??? ondansetron (ZOFRAN) 4 mg Tablet Take 1 tablet by mouth every 8 hours. 20 tablet 0 ??? tiZANidine (ZANAFLEX) 4 mg Tablet Take 1 tablet by mouth 3 times daily. 30 tablet 0 ??? PROAIR HFA 90 mcg/actuation HFA Aerosol Inhaler ??? FLOVENT HFA 220 mcg/actuation HFA Aerosol Inhaler ??? acetaminophen (TYLENOL) 325 mg Tablet Take 2 tablets by mouth every 4 hours as needed for Pain (mild pain). 30 tablet 1 ??? calcium carbonate (TUMS) 200 mg calcium (500 mg) Tablet, Chewable Take 2 tablets by mouth dailyas needed. ??? pantoprazole (PROTONIX) 40 mg Tablet, Delayed Release (E.C.) Take 2 tablets by mouth daily. (Patient not taking: Reported on 10/09/2018) 90 tablet 3 ??? nicotine (NICODERM CQ) 21 mg/24 [address] 1 patch onto the skin daily. (Patient not taking: Reported on 10/09/2018) 28 patch 0 ??? PARoxetine (PAXIL) 20 mg Tablet Take 20 mg by mouth every morning. ??? docusate sodium (COLACE) 100 mg Capsule TAKE ONE CAPSULE BY MOUTH TWICE A DAY 1 ??? gabapentin (NEURONTIN) 400 mg Capsule Take 1 capsule by mouth 3 times daily. (Patient not taking: Reported on 10/09/2018) 84 capsule 3 No current facility-administered medications on file prior to visit. Allergies Allergen Reactions ??? Bee Pollen Anaphylaxis ??? Meperidine Hcl Anaphylaxis and Other (See Comments) flushing, respiratory trouble ??? [place] Other (See Comments) Flu like sx ??? Zoloft [Sertraline] Other (See Comments) Flu like sx Physical exam: Most Recent Vitals: 10/24/18 1247 BP: 112/76 Pulse: 84 Imaging studies: CTA shows a 3 mm left ophthalmic aneurysm. Older MRI's show a probable aneurysm but study quality makes it difficult to asses whether the aneurysm is unchanged or larger. The ICA is obscured in the area of the coiled right ophthalmic aneurysm and no evaluation of stenosis or recurrence at this site is possible. Assessment: Ghada Ervin has a 3 mm unruptured left ophthalmic aneurysm, possibly new or enlarging. We discussed the natural history and treatment options for this aneurysm, including clip occlusion and coil embolization. We discussed the nature of endovascular coiling and its relative merits. . Risk of longstanding morbidity or mortality with endovascular treatment is approximately 5%. She is strongly inclined to treat this aneurysm and with her young age and family history of aneurysm ruptures, this is very reasonable. The CTA shows the aneurysm morphology poorly and since there are multiple treatment options, catheter angioram would be of benefit. Further the catheter angiogramwill allow a better assessment of the previously coiled right ICA aneurysm I am concerned that her right hemisphere infarcts might be related to an ICA stenosis in the regionof the stent. The ipsilateral headaches might be related. She is now back on ASA and Plavix and hashad no further new clinical events since that time. Her headaches persist and are substantial. She has experienced no sedating effects on current dose of hydroxyzine and it is reasonable to try an increased dosage. Plan: Cerebral angiogram. Blood pressure monitoring Try trial of increased hydroxyzine dose for headaches. Of this 1 hour minute visit, 60 minutes was spent in counseling and coordination of care. documented in this encounter Plan of Treatment Upcoming Encounters Date Type Department Care Team (Late st Contact Info) Description 01/24/2024 3:40 PM EDT Office Visit Cardiology at [address] [place] [address] Rangel Willams MD [facility] [place] [address] documented as of this encounter Results * IR Arteriogram Cerebral (10/31/2018 10:31 AM EDT) Anatomical Region Laterality Modality X-Ray Angiograph y Impressions 11/03/2018 9:15 AM EDT 1. No substantial recurrence of right-sided periophthalmic aneurysm. No evidence of ICA stenosis. 2. 3 mm left ophthalmic aneurysm. Thank you for letting us participate in the care of this patient. For questions regarding this report, please contact the number below. ? Narrative 11/03/2018 9:15 AM EDT EXAMINATION: IR ARTERIOGRAM CEREBRAL CLINICAL HISTORY: right ICA stent ? stenosis and left ICA aneurysm; Exam/Procedure requested: cerebral angiogram OPERATORS: Dr. Kurtis Pina, Dr. Nicolas Roca, Dr. Ayaan Castro. Ayaan Castro was present for the entire procedure. PROCEDURE: 1. Cerebral angiogram. ANESTHESIA: Moderate sedation provided with split doses of Versed and fentanyl during continuous monitoring of patient vital signs by angiography nursing. IAyaan was present during the intraservice time as documented by the IR Nurse. EBL: <20 ml CONTRAST: Approximately 45 mL Visipaque-320. RADIATION EXPOSURE: A-plane 313 mGy; B plane 104 mGy. MATERIALS: Micropuncture set, 0.035 125 cm Glidewire, 5 Vietnamese Glidesheath slender, 4Fr Mehta 1 Glidecatheter. TECHNIQUE: The patient was brought to the angiography suite. The right forearm was sterilely prepped and draped. Using micropuncture set and ultrasound guidance, the radial artery was accessed and the 5 Vietnamese radial slender glidesheath was placed, flushed, and an infusion of spasmolytic cocktail containing 2.5 mg verapamil, 200 mcg nitroglycerin, and 3000 units heparin was performed slowly, diluted into a volume of 20 mL using the patient's blood. The sheath was connected to a continuous heparinized saline infusion. The 4 Vietnamese Mehta 1 glide catheter was positioned in the subclavian artery over the Glidewire using roadmap guidance, the wire was removed, and the catheter connected to continuous heparinized saline infusion. Catheter was advanced into the aortic arch using the Glidewire, and the left common carotid artery, and right common carotid artery were sequentially selected and biplane angiography performed. Radial artery sheath was removed with TR band patent hemostasis technique. FINDINGS: RIGHT SUBCLAVIAN ROADMAP INJECTION: Visualized subclavian artery, radial and ulnar arteries are normal. LEFT COMMON CAROTID ARTERY INJECTION: Visualized common carotid, carotid bifurcation, and cervical ICA are normal in caliber. A paraophthalmic superiorly projecting approximately 3 mm aneurysm is present. The ophthalmic artery arises separately from the aneurysm. The intracranial ICAs otherwise normal. MCA, KONRAD, and branches are normal. RIGHT COMMON CAROTID ARTERY INJECTION: A stent is present extending from the ICA apex to the cavernous ICA. Coiled paraophthalmic aneurysm is present with minimal filling of the neck. There is no in-stent stenosis of the ICA. MCA, KONRAD, and branches are normal. No evidence of new aneurysm or vascular malformation. Procedure Note Ayaan Castro MD - 11/03/2018 EXAMINATION: IR ARTERIOGRAM CEREBRAL CLINICAL HISTORY: right ICA stent ? stenosis and left ICA aneurysm; Exam/Procedure requested: cerebral angiogram OPERATORS: Dr. Kurtis Pina, Dr. Nicolas RocaDr. Ayaan.Ayaan Castro was present for the entire procedure. PROCEDURE: 1. Cerebral angiogram. ANESTHESIA: Moderate sedation provided with split doses of Versed andfentanyl during continuous monitoring of patient vital signs by angiographynursing. Ayaan Green due to Luis A Castro was present during the intraservice time asdocumented by the IR Nurse. EBL: <20 ml CONTRAST: Approximately 45 mL Visipaque-320. RADIATION EXPOSURE: A-plane 313 mGy; B plane 104 mGy. MATERIALS: Micropuncture set, 0.035 125 cm Glidewire, 5 FrenchGlidesheath slender, 4Fr Mehta 1 Glidecatheter. TECHNIQUE: The patient was brought to the angiography suite. The rightforearm was sterilely prepped and draped. Using micropuncture set and ultrasound guidance, the radial artery was accessed and the 5 Vietnamese radial slender glidesheath was placed, flushed, and an infusion of spasmolytic cocktail containing 2.5 mg verapamil, 200 mcg nitroglycerin, and 3000 units heparinwas performed slowly, diluted into a volume of 20 mL using the patient'sblood. The sheath was connected to a continuous heparinized saline infusion. The 4 Vietnamese Mehta 1 glide catheter was positioned in the subclavianartery over the Glidewire using roadmap guidance, the wire was removed, and the catheter connected to continuous heparinized saline infusion. Catheterwas advanced into the aortic arch using the Glidewire, and the left commoncarotid artery, and right common carotid artery were sequentially selected andbiplane angiography performed. Radial artery sheath was removed with TR bandpatent hemostasis technique. FINDINGS: RIGHT SUBCLAVIAN ROADMAP INJECTION: Visualized subclavian artery, radialand ulnar arteries are normal. LEFT COMMON CAROTID ARTERY INJECTION: Visualized common carotid, carotid bifurcation, and cervical ICA are normal in caliber. A paraophthalmicsuperiorly projecting approximately 3 mm aneurysm is present. The ophthalmic arteryarises separately from the aneurysm. The intracranial ICAs otherwise normal. MCA,KONRAD, and branches are normal. RIGHT COMMON CAROTID ARTERY INJECTION: A stent is present extending fromthe ICA apex to the cavernous ICA. Coiled paraophthalmic aneurysm is presentwith minimal filling of the neck. There is no in-stent stenosis of the ICA.MCA, KONRAD, and branches are normal. No evidence of new aneurysm or vascularmalformation. IMPRESSION 1. No substantial recurrence of right-sided periophthalmic aneurysm. Noevidence of ICA stenosis. 2. 3 mm left ophthalmic aneurysm. Thank you for letting us participate in the care of this patient. Forquestions regarding this report, please contact the number below. 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
--- OUTSIDE RECORDS SUMMARY | 2023-12-27 19:45 | XMS_ITS | Encounter Summary ---
Author Organization [facility] [place] [address] Care Team Providers Care Allergy And Immunology Specialist Name Role Phone Vicky Obrien KIM Primary Care Provider [phone] Encounter Details Date Type Department Care Team (Late st Contact Info) Description 10/17/2018 5:40 PM EDT Ancillary Procedure [place] [address] Stefanie Rievrs MD [facility] [place] [address] Social History Tobacco Use Types Packs/Day Years [...] PM EDT Office Visit Cardiology at [address] [address] Rangel Willams MD [facility] [place] [address] documented as of this encounter Procedures Procedure Name Priority Date/Time Associated Diagnosis Comments FILM LIBRARY STORAGE ONLY DX CHEST Routine 10/17/2018 5:37 PM EDT documented in this encounter Results * Film Library- Storage Only DX Chest (10/17/2018 5:37 PM EDT) Narrative BRITTANI MARC - 10/17/2018 5:37 PM EDT This exam is auto-finalizing. It's purpose is for storage only. Stefanie Rivers MD IMG FILM LIBRARY ORD ERABLES [place], [place] documented in this encounter Visit Diagnoses Not on filedocumented in this encounter Care Teams Allergy And Immunology Specialist Relationship Specialty Start Date End Date Vicky Obrien APRN PCP - General Family Medicine 08/25/17 11/21/18 documented as of this encounter
--- OUTSIDE RECORDS SUMMARY | 2023-12-27 19:45 | XMS_ITS | Encounter Summary ---
Author Organization [facility] [place] [address] Care Team Providers Care Riprap Man Name Role Phone Vicky Obrien KIM Primary Care Provider [phone] Encounter Details Date Type Department Care Team (Late st Contact Info) Description 11/20/2018 Orders [place] [address] Ayaan Castro MD [facility] [place] [address] Cerebral aneurysm without rupture Social History Tobacco [...] PM EDT Office Visit Cardiology at [address] [address] Rangel Willams MD [facility] CARDIOLOGY [place], [place] [id number] documented as of this encounter Results * P2Y12 Antiplatelet ([facility]) (01/15/2019 11:16 AM EDT) P2Y12 [address] [facility] Comment: This test is intended to be used as an indication of drug effect in patients on clopidogrel (Plavix) only in conjunction with a baseline pre-treatment determination. Blood specimen (specimen) 01/15/2019 11:16 AM EDT 01/15/2019 11:24 AM EDT Narrative Resulting Agency Comment Spec In Lab Ayaan Castro MD HEMATOLOGY ORDERABLE S [facility] [place] [address] documented in this encounter Visit Diagnoses Diagnosis Cerebral aneurysm without rupture Cerebral aneurysm, nonruptured documented in this encounter Care Teams Riprap Man Relationship Specialty Start Date End Date Vicky Obrien, CLEANER INDUSTRIAL PCP - General Family Medicine 08/25/17 11/21/18 documented as of this encounter
--- OUTSIDE RECORDS SUMMARY | 2023-12-27 19:45 | XMS_ITS | Encounter Summary ---
Author Organization [facility] [place] [address] Care Team Providers Care Motorcycle Designer Name Role Phone MicahVicky Luis A ALVAREZ Primary Care Provider [phone] Encounter Details Date Type Department Care Team (Late st Contact Info) Description 10/09/2018 9:00 AM EDT Office Visit Cardiology at [address] [address] Rangel Willams MD [facility] [place] [address] Heart palpitations; Cerebrovascular accident (CVA), unspecified mechanism; SVT (supraventricular tachycardia); Systolic heart failure, unspecified HF chronicity Social History Tobacco Use Types Packs/Day Years [...] Sign Reading Time Taken Comments Blood Pressure 139/90 10/09/2018 9:10 AM EDT Pulse 105 10/09/2018 9:10 AM EDT Temperature - - Respiratory Rate - - Oxygen Saturation 98% 10/09/2018 9:10 AM EDT Inhaled Oxygen Concentration - - Weight 105.7 kg (233 lb) 10/09/2018 9:10 AM EDT Height 157.5 cm (5' 2) 10/09/2018 9:10 AM EDT Body Mass Index 42.62 10/09/2018 9:10 AM EDT documented in this encounter Progress Notes * Rangel Willams MD - 10/09/2018 9:00 AM EDT 27 yo Female with complex history with recent history of stroke and PFO with ASA seen today for consideration of PFO Closure Focused Problem List 1. PFO with ASA TTE 09/06/2018 1. [...] normal. 2. Right paraclinoid aneurysm coiled 2014 [place] Occular field defect S/P Coiling S/P Stroke Walks with cane Continues with visual loss 3. 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 chronic pain 6. Fibromyalgia 7. ADD 8. Migraine 9. Scoliosis 10. SVT 11. lumbar spondylosis. 12. Cigarette use August 2017 Stroke Syndrome (From Admit Note) [...] DCF has custody of kids Cigarettes 5-10/day Physical Exam BP 139/90 P 88 General: Healthy female who appears to be hers stated age Skin: Heavily tattooed Lungs: Clear to auscultation CV: Neck veins were not elevated, PMI is non-displaced rhythm is regular in the 70's bpm. There is a normal S1 followed by a physiologically split S2 without, S3, S4, pathologic rub or murmur. Abdomen: Flat, non-tender without palpable liver, spleen or masses LE: Without edema, with good distal pulses Neuro: Non-Focal Assessment and Plan 27 yo female with [...] her at high risk of implant endocarditis. Suggest to continue patient on DAPT. If patient has recurrent stroke by MRI while on DAPT can re-evaluate then I reviewed at length the above findings and outlined the logic with a current plan. The patient appears to understand and is in agreement with the plan going forward. Rangel Willams M.D., F.A.C.C. manager rfid Pager 2020 >50% of 60 minute evaluation was spent in direct conversation/counselling focused on the her recent stroke documented in this encounter Plan of Treatment Upcoming Encounters Date Type Department Care Team (Late st Contact Info) Description 01/24/2024 3:40 PM EDT Office Visit Cardiology at [address] [address] Rangel Willams MD [facility] [place] [address] Scheduled Orders Name Type Priority Associated Diagnoses Orde r Schedule EKG 12 Lead ECG Routine Heart palpitations Cerebrovascular accident (CVA), unspecified mechanism SVT (supraventricular tachycardia) Systolic heart failure, unspecified HF chronicity Expected: 09/24/2018 (Approximate), Expires: 09/25/2019 documented as of this encounter Visit Diagnoses Diagnosis Heart palpitations Palpitations Cerebrovascular accident (CVA), unspecified mechanism SVT (supraventricular tachycardia) Other specified cardiac dysrhythmias Systolic heart failure, unspecified HF chronicity documented in this encounter Care Teams Motorcycle Designer Relationship Specialty Start Date End Date Vicky Obrien APRN PCP - General Family Medicine 08/25/17 11/21/18 documented as of this encounter
--- OUTSIDE RECORDS SUMMARY | 2023-12-27 19:45 | XMS_ITS | Encounter Summary ---
Author Organization [facility] [place] [address] Care Team Providers Care Tow Motor Driver Name Role Phone Unknown Primary Care Provider Unavailabl e Encounter Details Date Type Department Care Team (Latest Contact Info) Description 01/15/2019 11:20 AM EDT [place] [address] Cerebral aneurysm without rupture Social History Tobacco [...] PM EDT Office Visit Cardiology at [address] [address] Rangel Willams MD [facility] [place] [address] documented as of this encounter Procedures Procedure Name Priority Date/Time Associated Diagnosis Comments HC P2Y12 ANTIPLATELET ASSAY (VERIFYNOW) Routine 01/15/2019 11:16 AM EDT Cerebral aneurysm without rupture documented in this encounter Results * P2Y12 Antiplatelet ([facility] [place]/CGP) (01/15/2019 11:16 AM EDT) P2Y12 89 PRU [facility] Comment: This test is intended to be used as an indication of drug effect in patients on clopidogrel (Plavix) only in conjunction with a baseline pre-treatment determination. Blood specimen (specimen) 01/15/2019 11:16 AM EDT 01/15/2019 11:24 AM EDT Narrative Resulting Agency Comment Spec In Lab Ayaan Castro MD HEMATOLOGY ORDERABLE S [facility] [place] [address] documented in this encounter Visit Diagnoses Diagnosis Cerebral aneurysm without rupture Cerebral aneurysm, nonruptured documented in this encounter Care Teams Tow Motor Driver Relationship Specialty Start Date End Date Unknown None PCP - General 11/22/18 01/20/19 documented as of this encounter
--- OUTSIDE RECORDS SUMMARY | 2023-12-27 19:45 | XMS_ITS | Encounter Summary ---
Author Organization [facility] [place] [address] Care Team Providers Care Remedial Reading Teacher Name Role Phone Vicky Obrien KIM Primary Care Provider [phone] Encounter Details Date Type Department Care Team (Late st Contact Info) Description 10/17/2018 5:45 PM EDT Ancillary Procedure [place] [address] Stefanie Rivers MD [facility] [place] [address] Social History Tobacco Use Types Packs/Day Years [...] 3:40 PM EDT Office Visit Cardiology at [address] [address] Rangel Willams MD [facility] [place] [address] documented as of this encounter Procedures Procedure Name Priority Date/Time Associated Diagnosis Comments FILM LIBRARY STORAGE ONLY CT HEAD Routine 10/17/2018 5:38 PM EDT documented in this encounter Results * Film Library- Storage Only CT Head (10/17/2018 5:38 PM EDT) Narrative BRITTANI MARC - 10/17/2018 5:38 PM EDT This exam is auto-finalizing. It's purpose is for storage only. Stefanie Rivers MD IMG FILM LIBRARY ORD ERABLES [place], [place] documented in this encounter Visit Diagnoses Not on filedocumented in this encounter Care Teams Remedial Reading Teacher Relationship Specialty Start Date End Date Vicky Obrien APRN PCP - General Family Medicine 08/25/17 11/21/18 documented as of this encounter
--- OUTSIDE RECORDS SUMMARY | 2023-12-27 19:45 | XMS_ITS | Encounter Summary ---
[place] [address] Care Team Providers Care Biosolids Management Technician Name Role Phone Frances Sorensen KIM Primary Care Provider [phone] Encounter Details Date Type Department Care Team (Late st Contact Info) Description 02/05/2019 [place] [address] Susan Aquino Social History Tobacco Use Types Packs/Day Years [...] * Telephone Encounter - Nina Ruiz - 02/05/2019 9:06 AM EDT Ghada was advised by myself to go to her local ER on 01/30 d/t her recent fall in the shower and symptoms she was reporting. * Telephone Encounter - Susan Aquino - 02/05/2019 8:58 AM EDT Caller: Office If not the patient: Name of caller: Pippa Relationship to patient: [facility] Personal Rep on file?: n/a Best time to reach caller: No return call needed Reason for call: Pippa with PCP's office called to let us know the patient went to the ED at [facility] after falling in the shower last week. She advised patient is home now, but they wanted to let us know as she had recent surgery with us. FYI only. Recent Surgery?: 01/21/19 If before 4:00 pm: [...] PM EDT Office Visit Cardiology at [address] [address] Rangel Willams MD [facility] [place] [address] documented as of this encounter Visit Diagnoses Not on filedocumented in this encounter Care Teams Biosolids Management Technician Relationship Specialty Start Date End Date Frances Sorensen APRN [address] [place] [address] PCP - General Family Medicine 01/21/19 02/15/22 documented as of this encounter
--- OUTSIDE RECORDS SUMMARY | 2023-12-27 19:45 | XMS_ITS | Encounter Summary ---
Author Organization [facility] [place] [address] Care Team Providers Care Paediatric Surgeon Name Role Phone Unknown Primary Care Provider Unavailabl e Encounter Details Date Type Department Care Team (Late st Contact Info) Description 12/30/2018 [place] [address] Andres Wray MD [facility] [place] [address] Social History Tobacco Use Types Packs/Day Years [...] encounter Miscellaneous Notes * Telephone Encounter - Andres Wray MD - 12/30/2018 1:13 PM EDT Paged for patient call; called back with no answer, LMOAM. Advised to return call at caller's convenience, and to go to nearest ED if this is an emergency. Andres Wray MD Neurology, PGY-3 12/30/2018 documented in this encounter Plan of Treatment Upcoming Encounters Date Type Department Care Team (Late st Contact Info) Description 01/24/2024 3:40 PM EDT Office Visit Cardiology at [address] [address] Rangel Willams MD [facility] [place] [place] [address] documented as of this encounter Visit Diagnoses Not on filedocumented in this encounter Care Teams Paediatric Surgeon Relationship Specialty Start Date End Date Unknown None PCP - General 11/22/18 01/20/19 documented as of this encounter
--- OUTSIDE RECORDS SUMMARY | 2023-12-27 19:45 | XMS_ITS | Encounter Summary ---
[place] [address] Care Team Providers Care Historian Dramatic Arts Name Role Phone ObrienVicky Luis A ALVAREZ Primary Care Provider [phone] Encounter Details Date Type Department Care Team (Late st Contact Info) Description 10/17/2018 [place] [address] Derrek Naidu MD [facility] [place] [address] Social History Tobacco Use Types Packs/Day Years [...] encounter Miscellaneous Notes * Telephone Encounter - Derrek Naidu MD - 10/17/2018 8:43 PM EDT Patient presents with blurry vision and tingling in left upper extremity. Has normal neurological exam per ED and is improved with treatment of her headache. History and recent admission reviewed. Has history of right hemisphere small strokes of uncertain cause likely peripheral embolism (TTE showed possible cardiomyopathy 40% EF). Patient taking ASA and Plavix. Probable migraine. Discussed repeating MRI as outpatient to ensure no further embolic strokes. Patient needs follow up in stroke clinic. documented in this encounter Plan of Treatment Upcoming Encounters Date Type Department Care Team (Late st Contact Info) Description 01/24/2024 3:40 PM EDT Office Visit Cardiology at [address] [address] Rangel Willams MD [facility] [place] [address] documented as of this encounter Visit Diagnoses Not on filedocumented in this encounter Care Teams Historian Dramatic Arts Relationship Specialty Start Date End Date Vicky Obrien APRN PCP - General Family Medicine 08/25/17 11/21/18 documented as of this encounter
--- OUTSIDE RECORDS SUMMARY | 2023-12-27 19:45 | XMS_ITS | Encounter Summary ---
Author Organization [facility] [place] [address] Care Team Providers Care Powdered Sugar Supervisor Name Role Phone Unknown Primary Care Provider Unavailabl e Encounter Details Date Type Department Care Team (Late st Contact Info) Description 01/15/2019 Orders [place] [phone] Ayaan Castro MD [facility] DIAGNOSTIC RADIOLOGY [place], [place] [id number] Social History Tobacco Use Types Packs/Day Years [...] 3:40 PM EDT Office Visit Cardiology at [address] [address] Rangel Willams MD [facility] [place] [address] documented as of this encounter Visit Diagnoses Not on filedocumented in this encounter Care Teams Powdered Sugar Supervisor Relationship Specialty Start Date End Date Unknown None PCP - General 11/22/18 01/20/19 documented as of this encounter
--- OUTSIDE RECORDS SUMMARY | 2023-12-27 19:45 | XMS_ITS | Encounter Summary ---
Author Organization [facility] [address] Care Team Providers Care Health Psychologist Name Role Phone Unknown Primary Care Provider Unavailabl e Encounter Details Date Type Department Care Team (Late st Contact Info) Description 12/30/2018 [place] [address] Andres Wray MD [facility] [place] [address] Social History Tobacco Use Types Packs/Day Years [...] Encounter - Andres Wray MD - 12/30/2018 1:27 PM EDT Telephone Encounter Note - 12/30/2018 1:27 PM Caller: Ghada Ervin Patient called for refills of clopidogrel and lisinopril. Refills sent to her preferred pharmacy. Andres Wray MD Neurology, PGY-3 12/30/2018 N.B. Since we have not evaluated this patient, this is not an official consultation and we are not stating that a specific treatment decision is correct or incorrect. documented in this encounter Plan of Treatment Upcoming Encounters Date Type Department Care Team (Late st Contact Info) Description 01/24/2024 3:40 PM EDT Office Visit Cardiology at [address] [address] Rangel Willams MD [facility] [place] [address] documented as of this encounter Visit Diagnoses Not on filedocumented in this encounter Care Teams Health Psychologist Relationship Specialty Start Date End Date Unknown None PCP - General 11/22/18 01/20/19 documented as of this encounter
--- OUTSIDE RECORDS SUMMARY | 2023-12-27 19:45 | XMS_ITS | Encounter Summary ---
[place] [address] Care Team Providers Care Pattern Designer Name Role Phone Frances Sorensen KIM Primary Care Provider [phone] Encounter Details Date Type Department Care Team (Late st Contact Info) Description 04/09/2019 [place] [address] Gladys Latif RN Social History Tobacco Use Types Packs/Day [...] Encounter - Gladys Latif RN - 04/09/2019 11:52 AM EST States her memory is worse, puts phone down and can't remember where it is, can't remember appointments. Been slowly getting worse since more episodes of blood clots/strokes (August). Needs more help with things. She didn't come for her f/u in Neurology after her discharge in August. I transferred her to Neurology to schedule an appointment. documented in this encounter Plan of Treatment Upcoming Encounters Date Type Department Care Team (Late st Contact Info) Description 01/24/2024 3:40 PM EDT Office Visit Cardiology at [address] [address] Rangel Willams MD [facility] [place] [address] documented as of this encounter Visit Diagnoses Not on filedocumented in this encounter Care Teams Pattern Designer Relationship Specialty Start Date End Date Frances Sorensen APRN [address] [place] [address] PCP - General Family Medicine 01/21/19 02/15/22 documented as of this encounter
--- OUTSIDE RECORDS SUMMARY | 2023-12-27 19:45 | XMS_ITS | Encounter Summary ---
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 Procedures IR Arteriogram Cerebral Ayaan Castro MD [facility] [address] [place] [address] Referral ID Status Reason Start Date Expiration Date V isits Requested Visits Authorized [id number] Closed Specialty Service Requested 10/24/2018 10/24/2019 1 1 Reason for Visit * Diagnostic Test (Routine) - Closed Specialty Diagnoses / Procedures Referred By Lang sanches Referred To Contact Radiology Diagnoses Cerebral aneurysm without rupture 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 Procedures IR Arteriogram Cerebral Ayaan Castro MD [facility] [address] [place] [address] Referral ID Status Reason Start Date Expiration Date V isits Requested Visits Authorized [id number] Closed Specialty Service Requested 10/24/2018 10/24/2019 1 1 Encounter Details Date Type Department Care Team (Latest Contact Info) Description 10/31/2018 6:59 AM EDT - 10/31/2018 11:59 PM EDT Hospital [place] [address] Ayaan Castro MD [facility] [place] [address] Intracranial aneurysm (Primary Dx); Cerebral aneurysm without rupture; 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 Discharge Disposition: Home Social History Tobacco Use [...] Sign Reading Time Taken Comments Blood Pressure 153/98 10/31/2018 12:21 PM EDT Pulse 73 10/31/2018 10:20 AM EDT Temperature 35.7 ??C (96.3 ??F) 10/31/2018 10:34 AM E DT Respiratory Rate 14 10/31/2018 12:21 PM EDT Oxygen Saturation 96% 10/31/2018 12:21 PM EDT Inhaled Oxygen Concentration - - Weight - - Height - - Body Mass Index - - documented in this encounter Discharge Instructions * Discharge Instructions* Avis Charles RN - 10/31/2018 12:14 PM EDT [facility] Interventional Radiology Radial Artery Instructions Procedure: Cerebral arteriogram Puncture Site: Right radial Date: 10/31/18 Physician: Dr. Castro 1. At home we advise you to rest quietly in bed or on the couch until the next morning. You may getup and walk around but keep your activity to a minimum. DO NOT USE WRIST'S TO PUSH YOURSELF UP IN BED OR CHAIR TO SHIFT POSITION FOR 12 HOURS POST PROCEDURE. 2. Resume your previous diet. Drink 6-8 ounces of fluid per hour for the next 8 hours. Avoid alcoholic or caffeinated beverages for 24 hours. If you are a diabetic and take Metformin or Janumet or the combination med's that include Metformin, DO NOT take for 2 days after the procedure. 3. Avoid strenuous activity for the next 48 hours, particularly in the next 24 hours. Do not lift anything for the next 48 hours or engage in any sports activity for 48 hours. You may engage in sexual activity after 48 hours. Problems to watch for: 1. If you develop bleeding at the puncture site, put direct pressure on the site for 15 minutes andcall your doctor. Call for help. If the bleeding persists, reapply firm pressure, call 911 for an ambulance and go to your local Emergency Department. 2. If you notice a sudden change in the feeling (numbness, tingling and/or pain) of your hand on the side of the puncture call your doctor. 3. You may develop a bruise and swelling at the catheter insertion site. If you develop a bulge, you may have bleeding inside. Contact your doctor or the Radiology/Vascular Department here. Report signs of infection (redness, swelling, discharge, soreness, or fever) to your doctor. 4. Leave the bandage on for 24-48 hours. A little spot of blood at the catheter insertion site is normal. A small lump or bruise under the skin is normal. They generally disappear in 3-4 days. You may shower the following day after the procedure. You should NOT swim or tub bathe for 48 hours. 5. Expect some mild tenderness over the catheter insertion area. You will notice this after the local anesthetic wears off. This should improve during the 24-48 hours after the procedure. Take tylenol if needed. Contact your doctor is the discomfort worsens. 6. Watch for signs for infection at the catheter site for the first few days at home. Signs include: Redness, swelling with increased soreness, yellow, green or brown fowl smelling drainage. If you think you may have these symptoms, take your temperature, then call your doctor. 7. You have received medication during your procedure to help lessen anxiety and keep you comfortable and which affects judgement and reaction time. We recommend that you do not drive, operate equipment, sign any important documents, or smoke unattended for 24 hours following your procedure. Because of the sedation please be careful on stairs, as you may be unsteady on your feet. You may return to work with the above restrictions on . The limb where the catheter was inserted should look and feel normal in color, sensation, and temperature. If your arm/hand becomes cool, pale, blue or changing color with numbess and tingling, CALL YOUR DOCTOR. XXX If you have any questions or concerns, please call Interventional Radiology Department at until 6pm. After 6pm, or on weekends or hoildays, max and ask for the front loader residential driver primary health organisation manager. Peripheral IV site -- slight redness, or tenderness is normal, you can use a warm compress. If tenderness and redness increases or foul drainage occurs, please contact your M. D. Revised 07/28/15 documented in this encounter Medications at Time of Discharge Medication Sig Dispensed Refills Start Date End Date metoprolol succinate (TOPROL-XL) 25 mg Tablet Sustained Release 24 hr Take 2 tablets by mouth daily. 30 tablet 3 10/09/2018 docusate sodium (COLACE) 100 mg Capsule TAKE ONE CAPSULE BY MOUTH TWICE A DAY 1 10/31/2017 acetaminophen (TYLENOL) 325 mg Tablet Take 2 tablets by mouth every 4 hours as needed for Pain (mild pain). 30 tablet 1 05/12/2015 [facility] [place] [facility] Measure blood pressure [...] HFA 220 mcg/actuation HFA Aerosol Inhaler 02/02/2018 hydrOXYzine (VISTARIL) 25 mg Capsule Take 2 capsules by mouth 3 times daily as needed for Itching. 30 capsule 12 10/24/2018 01/23/2019 aspirin 81 mg Tablet, Delayed Release (E.C.) Take 1 tablet by mouth daily. 30 tablet 3 09/12/2018 04/29/2021 hydrOXYzine (ATARAX) 25 mg Tablet Take 1 tablet by mouth 3 times daily as needed (Use in combination with Naproxen for migraine ). 30 tablet 3 09/12/2018 01/15/2019 naproxen sodium (ANAPROX) 550 mg Tablet Take 1 tablet by mouth 3 times daily as needed (Use in combination with Hydroxyzine for migraine ). 60 tablet 3 09/12/2018 01/15/2019 clopidogrel (PLAVIX) 75 mg Tablet Take 1 tablet by mouth daily. 90 tablet 3 09/12/2018 11/06/2018 lisinopril (PRINIVIL;ZESTRIL) 5 mg Tablet Take 1 tablet by mouth daily. 90 tablet 3 09/13/2018 12/30/2018 tiZANidine (ZANAFLEX) 4 mg Tablet Take 1 [...] needed. 04/29/2021 documented as of this encounter Progress Notes * Lorraine Lopez RN - 10/31/2018 11:59 PM EDT Interventional and Vascular Radiology Post-Procedure Call Name: Ghada Moore Age: 28 y.o. Sex; Female Date of : 1990 (home) Telephone Information: [facility] Vicky Obrien, KIM [phone] Date/Time of call: 2018/9:17 AM Procedure: Diagnostic cerebral angiogram Procedural Provider: Chanelle/Silvana Contact with patient or if not, with whom? Message left on answering machine? Yes Provider notified via phone or email if unable to contact pt: no Are you having pain related to your procedure now? Are you having any swelling or bleeding from the site? Are there any improvement in your symptoms? Are you having any other problems related to your procedure? Comments: Did you understand the discharge instructions given and do you have any questions? Comments: Do you have any comments about your Nurse or Provider or the care you received? Nurse Comments: * Shirley Mireles RN - 10/31/2018 12:46 PM EDT TR band with [address] Roca and Dr[address] Pina 3 cc removed at 1115, No signs or symptoms of bleeding or hematoma 3 cc removed at 1120, No signs or symptoms of bleeding or hematoma 3 cc removed at 1125, No signs or symptoms of bleeding or hematoma 3 cc removed at 1130, No signs or symptoms of bleeding or hematoma 3 cc removed at 1135, No signs or symptoms of bleeding or hematoma 3 cc removed at 1140, No signs or symptoms of bleeding or hematoma Only 18 cc removed- more air could not be removed No signs or symptoms of bleeding or hematoma after TR band removal. Pt up to bathroom at 1150, steady gait. Dressing to radial access site C/D/I. Some numbness at radial access site, occurred during procedure. Dr. Castro aware.. RUE warm and positive pulses (see Doc Flow). * Oneida Avila RN - 10/31/2018 8:56 AM EDT To procedure room 4 via stretcher. Onto table supine (position) All monitors, O2, safety strap in place. Med's per protocol. * Debra Kellogg RN - 10/26/2018 5:00 PM EDT Patient called for pre procedure instructions and expressed concerns. Patient is on a stated 120 mgof Methadone daily and her pain isn't touched by anything else.I have metal rods in my back and can't be expected to lay flat in recovery without sedation. RN stated she was also concerned with this and would call patient after conversation with proceduralist. MD reed. Will call patient with follow up * Oneida Avila RN - 10/26/2018 3:50 PM EDT ANGIO NURSING DATABASE Name: GHADA MOORE Date of : 1990 AGE: 27 y.o. Address: [place] [address] (home) Mobile: Telephone Information: Referring Provider: Ayaan Castro REASON FOR VISIT: Order Questions Answers Where will study be performed? [facility] Radiology [120] Is the patient on anticoagulant / anitplatelet therapy ? Aspirin,Clopidogrel Reason for exam and clinical history: right ICA stent ? stenosis and left ICA aneurysm Exam/Procedure requested: cerebral angiogram Is the patient ? Unknown Allergies Allergen Reactions ??? Bee Pollen Anaphylaxis ??? Meperidine Hcl Anaphylaxis and Other (See Comments) flushing, respiratory trouble ??? [place] Other (See Comments) Flu like sx ??? Zoloft [Sertraline] Other (See Comments) Flu like sx Pertinent PMH: Patient Active Problem List Diagnosis Code ??? [...] (heart failure with reduced ejection fraction) I50.20 Pertinent PSH: Past Surgical History: Procedure Laterality [...] SEG. / T10/T11/T12/T3/T4/T5/T6/T7/T8/T9 Procedure Date: 06/19/2007 ??? LITHOTRIPSY kidney stones ? ? PRG SIOBHAN REAL TIME IMG 2D W PRB IMG ACQUIS I&R N/A 09/12/2018 TRANSESOPHAGEAL ECHOCARDIOGRAM (WRVU 2.55) performed by Ze Freeman MD at [facility] MAIN OR ??? TUBAL LIGATION Date/Procedure Meds given/comments 10/31/18 cerebral angiogram Versed 4 mg IV Fentanyl 250 mcg IV Laboratory Results: Lab Results Component Value Date INR 1.0 01/12/2015 Lab Results Component Value Date CREATININE 1.13 09/12/2018 Lab Results Component Value Date K 4.6 09/12/2018 Lab Results Component Value Date PLATELET 226 09/07/2018 Medications: Prior to Admission medications Medication Sig Start Date End Date Taking? Authorizing Provider hydrOXYzine (VISTARIL) 25 mg Capsule Take 2 capsules by mouth 3 times daily as needed for Itching. 10/24/18 Ayaan Castro MD [facility] [place] Measure blood pressure daily. Record pressure 10/24/18 Ayaan Castro MD metoprolol succinate (TOPROL-XL) 25 mg Tablet Sustained Release 24 hr Take 2 tablets by mouth daily. 10/09/18 Rangel Willams MD aspirin 81 mg Tablet, Delayed Release (E.C.) Take 1 tablet by mouth daily. 09/12/18 Andres Wray MD hydrOXYzine (ATARAX) 25 mg Tablet Take 1 tablet by mouth 3 times daily as needed (Use in combination with Naproxen for migraine ). Patient taking differently: Take 25 mg by mouth 3 times daily. 09/12/18 Andres Wray MD naproxen sodium (ANAPROX) 550 mg Tablet Take 1 tablet by mouth 3 times daily as needed (Use in combination with Hydroxyzine for migraine ). 09/12/18 Andres Wray MD clopidogrel (PLAVIX) 75 mg Tablet Take 1 tablet by mouth daily. 09/12/18 Andres Wray MD lisinopril (PRINIVIL;ZESTRIL) 5 mg Tablet Take 1 tablet by mouth daily. 09/13/18 Andres Wray MD ondansetron (ZOFRAN) 4 mg Tablet Take 1 tablet by mouth every 8 hours. 09/12/18 Jennifer Wray MD pantoprazole (PROTONIX) 40 mg Tablet, Delayed Release (E.C.) Take 2 tablets by mouth daily. Patient not taking: Reported on 10/09/2018 09/12/18 Andres Wray MD tiZANidine (ZANAFLEX) 4 mg Tablet Take 1 tablet by mouth 3 times daily. 09/12/18 Andres Wray MD nicotine (NICODERM CQ) 21 mg/24 hr [address] 1 patch onto the skin daily. Patient not taking: Reported on 10/09/2018 09/12/18 Andres Wray MD PARoxetine (PAXIL) 20 mg Tablet Take 20 mg by mouth every morning. PROVIDER, HISTORICAL PROAIR HFA 90 mcg/actuation HFA Aerosol Inhaler 02/02/18 PROVIDER, HISTORICAL docusate sodium (COLACE) 100 mg Capsule TAKE ONE CAPSULE BY MOUTH TWICE A DAY 10/31/17 PROVIDER, HISTORICAL FLOVENT HFA 220 mcg/actuation HFA Aerosol Inhaler 02/02/18 PROVIDER, HISTORICAL gabapentin (NEURONTIN) 400 mg Capsule Take 1 capsule by mouth 3 times daily. Patient not taking: Reported on 10/09/2018 11/25/15 Ignacia Watts APRN acetaminophen (TYLENOL) 325 mg Tablet Take 2 tablets by mouth every 4 hours as needed for Pain (mild pain). 05/12/15 Johnnie Turk PA calcium carbonate (TUMS) 200 mg calcium (500 mg) Tablet, Chewable Take 2 tablets by mouth daily as needed. PROVIDER, HISTORICAL documented in this encounter H&P Notes * Kurtis Pina MD - 10/31/2018 8:15 AM EDT 24-HOUR UPDATE Ghada Moore was seen in SDP. No interval events or changes in health status since preoperative H+P (see EPIC). Denies angina/dyspnea/fevers or malaise within the last 14 days. All questions were answered. Stable for surgery as scheduled. 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 ? Electronically signed by: Ayaan Castro [facility] ([phone]), at 11/03/2018 9:15 AM Narrative 11/03/2018 9:15 AM EDT EXAMINATION: IR [...] of patient vital signs by angiography nursing. IAayan due to Luis A Castro was present during the intraservice time as documented by the IR Nurse. EBL: <20 ml CONTRAST: Approximately 45 mL Visipaque-320. RADIATION EXPOSURE: A-plane 313 mGy; B plane 104 mGy. MATERIALS: Micropuncture set, 0.035 125 cm Glidewire, 5 Malaysian Glidesheath slender, 4Fr Mehta 1 Glidecatheter. TECHNIQUE: The patient was brought to the angiography suite. The right forearm was sterilely prepped and draped. Using micropuncture set and ultrasound guidance, the radial artery was accessed and the 5 Malaysian radial slender glidesheath was placed, flushed, and an infusion of spasmolytic cocktail containing 2.5 mg verapamil, 200 mcg nitroglycerin, and 3000 units heparin was performed slowly, diluted into a volume of 20 mL using the patient's blood. The sheath was connected to a continuous heparinized saline infusion. The 4 Malaysian Mehta 1 glide catheter was positioned in [...] Kurtis Pina, Dr. Nicolas Roca, Dr. Ayaan Castro.Ayaan Castro was present for the entire procedure. PROCEDURE: 1. Cerebral angiogram. ANESTHESIA: Moderate sedation provided with split doses of Versed andfentanyl during continuous monitoring of patient vital signs by angiographynursing. Ayaan Green was present during the intraservice time asdocumented [...] radial artery was accessed and the 5 Malaysian radial slender glidesheath was placed, flushed, and an infusion of spasmolytic cocktail containing 2.5 mg verapamil, 200 mcg nitroglycerin, and 3000 units heparinwas performed slowly, diluted into a volume of 20 mL using the patient'sblood. The sheath was connected to a continuous heparinized saline infusion. The 4 Malaysian Mehta 1 glide catheter was positioned in [...] below. Ayaan Castro MD IMG IR ORDERABLES * Platelet count (10/31/2018 6:54 AM EDT) Platelet 251 145 - 357 x10(3)/mc L [facility] Immature Plt % 3.8 0.0 - 7.4 % [facility] Comment: Limitation of the Immature Platelet Fraction (IPF)-May be less reliable when the platelet count is less than 05m453/uL due to statistical imprecision. The IPF value provides an assessment of the Bone Marrow production status. ??It is useful in differentiating Thrombocytopenia caused by platelet destruction/consumption versus decreased production. It also helps to determine the imminent release of platelets and can be therefore a helpful parameter in Chemotherapy and Bone marrow transplant patients. ELEVATED IPF value: ?? When the bone marrow is in a state of over production such as when increased destruction and consumption are the underlying issue. ?? When the marrow is recovering post chemotherapy or bone marrow transplant. LOW to NORMAL IPF value: ?? When the bone marrow in not responding and is in a decreased state of production. References: [employer] The Clinical Value of the Immature Platelet Fraction (IPF) in Cell Recovery Document Number 10-1143 09/2010 [employer] The Role of the Immature Platelet Fraction (IPF) in the Differential Diagnosis of Thrombocytopenia, Document [id number] [id number] [id number] Blood specimen (specimen) 10/31/2018 6:54 AM EDT 10/31/2018 7:00 AM EDT Narrative Resulting Agency Comment Spec In Lab Ayaan Castro MD HEMATOLOGY ORDERABLE S Performing Organization Address City/State/[facility] Co de Phone Number [facility] [place] [address] * APTT (10/31/2018 6:54 AM EDT) Partial Thromboplastin Time 30 25 - 37 sec [facility] Comment: The PTT is NOT appropriate for heparin monitoring. Use the Anti-Xa level for heparin monitoring (HEP UFH) or LMWH monitoring (HEP LMW). A PTT less than 37 seconds generally indicates adequate hemostasis. Blood specimen (specimen) 10/31/2018 6:54 AM EDT 10/31/2018 7:00 AM EDT Narrative Resulting Agency Comment Spec In Lab Ayaan Castro MD HEMATOLOGY ORDERABLE S Performing Organization Address [facility] Co de Phone Number [facility] [place] [address] * Prothrombin Time (10/31/2018 6:54 AM EDT) Prothrombin Time 11.0 9.4 - 12.5 sec [facility] International Normalization Ratio 1.0 [facility] Comment: An INR <2.0 indicates adequate procoagulant activity for hemostasis in most patients without underlying bleeding disorders, though the INR may not adequately reflect hemostatic capacity in patients with liver disease and synthetic impairment. The recommended target INR range for therapeutic anticoagulation is 2.0 ? 3.0 for most applications, though lower and higher ranges may be appropriate depending on clinical circumstances. Blood specimen (specimen) 10/31/2018 6:54 AM EDT 10/31/2018 7:00 AM EDT Narrative Resulting Agency Comment Spec In Lab Ayaan Castro MD HEMATOLOGY ORDERABLE S Performing Organization Address [facility] Co de Phone Number [facility] [place] [address] * Creatinine (10/31/2018 6:54 AM EDT) Creatinine 0.76 0.70 - 1.20 mg/dL [facility] Est Glomerular Filtration Rate 107 >=60 mL/min/1.7 3 m?? [facility] Comment: The eGFR was calculated using the CKD-EPI equation. As with all creatinine based estimates of kidney function, eGFR values calculated with the CKD-EPI equation are not accurate in patients with acute kidney failure, extremes of body mass or the acutely ill. [email or web address] eGFR 124 >=60 mL/min/1.7 3 m?? [facility] Comment: The eGFR was calculated using the CKD-EPI equation. As with all creatinine based estimates of kidney function, eGFR values calculated with the CKD-EPI equation are not accurate in patients with acute kidney failure, extremes of body mass or the acutely ill. 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 Cerebral embolism with cerebral infarction documented in this encounter Administered Medications Inactive Administered Medications - up to 3 most recent administrations Medication Order MAR Action Action Date Dose Rate Site fentaNYL (PF) 50 mcg/mL injection 1 dose, Starting on Mon10/31/18 at 0809, Until Mon10/31/18 at 0818, Oneida Avila.: cabinet override fentaNYL 50 mcg/mL multi-dose injection 25-50 mcg, Intravenous, EVERY 5 MIN PRN, Starting on Mon10/31/18 at 0818, Until Mon10/31/18 at 1021, Pain, per unit protocol, - Start dose [...] with direct provider supervision and verbal order., Day of Surgery (Day of Procedure), Routine Given 10/31/2018 9:50 AM EDT 50 mcg Given 10/31/2018 9:20 AM EDT 50 mcg Given 10/31/2018 9:10 AM EDT 50 mcg heparin (porcine) 1,000 unit/mL injection 1 dose, Starting on Mon10/31/18 at 0809, Until Mon10/31/18 at 0920, Oneida Avila.: cabinet override heparin (porcine) injection 3,000 Units 3,000 Units, Intra-arterial, ONCE, 1 dose, On Mon10/31/18 at 0845, Routine Given 10/31/2018 9:20 AM EDT 3,000 Units iodixanol (VISIPAQUE) 320 mg iodine/mL injection 150 mL 150 mL, Intra-arterial, ONCE PRN, 1 dose, Starting on Mon10/31/18 at 1031, Until Mon10/31/18 at 1032, Per Protocol, Routine Given 10/31/2018 10:32 AM EDT 62 mLs lidocaine (XYLOCAINE) 10 mg/mL (1 %) injection 10 mg 10 mg, Subcutaneous, ONCE, 1 dose, On Mon10/31/18 at 0845, For use in Interventional Radiology (IR) only for procedure with direct provider supervision and verbal order., Day of Surgery (Day of Procedure), Routine Given 10/31/2018 9:19 AM EDT 10 mg midazolam (PF) (VERSED) 1 mg/mL injection 1 dose, Starting on Mon10/31/18 at 0810, Until Mon10/31/18 at 0855, Oneida Avila: wendy override midazolam (PF) (VERSED) multi-dose injection 0.5-1 mg 0.5-1 mg, Intravenous, EVERY 3 MIN PRN, Starting on Mon10/31/18 at 0818, Until Mon10/31/18 at 1021, Sleep, - Start dose; 1 mg (Reduce dose to 0.5 mg if history of sedation sensitivity). - Titration dose: 0.5 mg - 1 mg (based on patient response) every 3 minutes PRN to obtain RASS score of -3. Maximum dose: 1 mg per dose, 5 mg/hour. For use in Interventional Radiology (IR) only for procedural sedation with direct provider supervision and verbal order., Day of Surgery (Day of Procedure), Routine Given 10/31/2018 10:10 AM EDT 1 mg Given 10/31/2018 9:50 AM EDT 1 mg Given 10/31/2018 9:10 AM EDT 1 mg nitroGLYcerin 100 mcg/mL intracoronary dilution 200 mcg 200 mcg, Intra-arterial, ONCE, 1 dose, On Mon10/31/18 at 0845, Routine Given 10/31/2018 9:20 AM EDT 200 mcg nitroGLYcerin 100 mcg/mL intracoronary dilution 1 dose, Starting on Mon10/31/18 at 0810, Until Mon10/31/18 at 0920, Oneida Avila.: cabinet override verapamil (ISOPTIN) 2.5 mg/mL injection 1 dose, Starting on Mon10/31/18 at 0809, Until Mon10/31/18 at 0922, Oneida Avila.: cabinet override verapamil (ISOPTIN) injection 2.5 mg 2.5 mg, Intravenous, ONCE, 1 dose, On Mon10/31/18 at 0845, Administer over 2 Minutes, IA Given 10/31/2018 9:20 AM EDT 2.5 mg documented in this encounter Care Teams Mechanical Design Engineer Relationship Specialty Start Date End Date Vicky Obrien APRN PCP - General Family Medicine 08/25/17 11/21/18 documented as of this encounter
--- OUTSIDE RECORDS SUMMARY | 2023-12-27 19:45 | XMS_ITS | Encounter Summary ---
Author Organization Formerly [facility] [place] [address] Care Team Providers Care Chopper Feeder Name Role Phone Frances Sorensen KIM Primary Care Provider [phone] Reason for Visit * Auth/Cert Specialty Diagnoses / Procedures Referred By Lang sanches Referred To Contact Diagnoses left ophthalmic aneurysm Procedures PRO PERM OCCLUSION/EMBOLIZATION, PERCUT, RUG CLEANER HELPER @TRANSCATHETER OCCLUSION/EMBOLIZATION FOR TUMOR DESTRUCTION Referral ID Status Reason Start Date Expiration Date Visits Re quested Visits Authorized [id number] 1 1 Encounter Details Date Type Department Care Team (Late st Contact Info) Description 01/21/2019 7:56 AM ED[place] [address] Blaise Dorsey MD [facility] [place] [address] Rangel Sims MD [facility] [place] [address] Anesthesia Record Procedure Summary Procedure Name Responsible Anesthesiologist Anesthesia Start Time Anesthesia Stop Time @TRANSCATHETER OCCLUSION/EMBOLIZATIO N FOR TUMOR DESTRUCTION (WRVU 20.12) Blaise Dorsey MD 01/21/19 0756 01/21/19 1245 Events Date Time Event Comment 01/21/2019 0718 0756 AN Verify 0756 Start 0756 An Start Data 0805 An Induction 0807 An Intubation 0849 Quick Note Attempted radia l artery cannulization bilaterally using ultrasound. Good target on U/S, able to cannulate vessel under direct visualization, obtain good pulsatile return but could not easily thread catheter over wire so elected to abort; the IR team will obtain femoral arterial access. 0851 Anesthesia Ready 0918 Break/Relief In Bekah Nix, BARBRA 0937 Break/Relief Out Bekah Nix, TORPEDO SPECIALIST 1023 An Data Art 1035 Quick Note 5mg nicardipine given IA by surgeon 1105 An Data Art 1106 ABG Data Arterial Blood Gas result: pH 7.430 pCO2 30 pO2 140.5 %O2 Sat 98% FiO2 44% HCO3 19.5 BE -4.8 Hb 11.6 K 3.96 Glucose 92 Lactate 0.79 1224 Extubation/LMA Out 1230 an stop data 1239 Recovery or ICU Handoff Oanh ent care was transferred to the destination unit staff after review of the patient's medical history, current anesthetic/surgical status and plan, according to the Provider Handoff Checklist. 1245 Stop Meds Name Total Midazolam 2 mg fentaNYL 100 mcg IV Lidocaine 60 mg Propofol 200 mg Rocuronium 80 mg PHENYLephrine 560 mcg Ondansetron 8 mg Dexamethasone 4 mg Neostigmine 3 mg Glycopyrrolate 0.4 mg Succinylcholine 100 mg Albuterol Inhaler 12 puff ceFAZolin (ANCEF) 2g in dextrose 5% 100 mL 4 g Ketamine INF 100.44 mg Dexmedetomidine 36 mcg PHENYLephrine INF 4,185 mcg Heparin 4,000 Units Lactated Ringers 1,100 mL * Agents Name O2 Air N2O Sevoflurane (et) * Blood No blood administrations on file. Lines, Drains, and Airways Type Details Placement Removal Incision 05/11/15; groin; 01/21/19; 1211 05/11/15 0000 by Anabel Singh RN 01/21/19 1211 by Ninfa Maxwell RN Incision 06/01/15; groin; ([facility] site); 01/21/19; 1211 06/01/15 0000 by Esthela Ramirez RN 01/21/19 1211 by Ninfa Maxwell RN Incision 10/31/18; 0920; othe r (see comments); right radial access; 01/21/19; 1211 10/31/18 0920 by Oneida Avila RN 01/21/19 1211 by Ninfa Maxwell RN Urethral Catheter 01/21/19; Surgery lo nger than 2 hours; indwelling single lumen catheter; inserted at this facility; drainage bag to dependent drainage; urethral catheter removed, tubing intact, per protocol/policy; present on arrival in PACU ; 01/22/19; 1116 01/21/19 0000 by Candy Wisdom RN 01/22/19 1116 by Sarah Inman LNA (RETIRED) Peripheral IV Line - Single Lumen 01/21/19; 0748; [id number] catheter system; 20 gauge; Anesthesia; intradermal injection; 0.2 filter placed on IV tubing d/t pt. hx of PFO. PIV removal was incidental - was moving around; MD aware; removed per patient; 01/22/19; 1039 01/21/19 0748 by Sari Sharma RN 01/22/19 1039 by Patricia Dimas RN ETT Mask Ventilation: No t Attempted (0); ETT Type: Cuffed, Oral; ETT Size: 7 mm; Mac Blade: 3; Notes: Asleep, Pre-O2, RSI, Cricoid Pressure, Stylette; Attempts: 1; Laryngoscopy Grade: 1; ETT Placement Verified By: Auscultation, Capnometry, Visual; Secured at Teeth: 22 cm; Inserted by: Sudhir Grullon; Removal Date: 01/21/19; Removal Time: 1224 01/21/19 0807 by Sudhir Grullon CRNA 01/21/19 1224 by Sudhir Grullon CRNA Arterial Line 01/21/19; 0855; femo ral artery, left; 4 Fr; Ayaan Castro MD; Sterile Prep, Sterile Gloves; no longer indicated (removed by surgeon); 01/21/19; 1206 01/21/19 0855 by Sudhir Grullon CRNA 01/21/19 1206 by Sudhir Grullon CRNA documented in this encounter Social History Tobacco Use Types Packs/Day Years [...] on file documented as of this encounter OR Notes * Anesthesia Postprocedure Evaluation - Blaise Dorsey MD - 01/21/2019 2:33 PM EDT Department of Anesthesiology Post-procedure Note Patient: Ghada Ervin Procedure Summary Date: 01/21/19 Room / Location: [facility]OLOGY / [facility] Anesthesia Start: 0756 Anesthesia Stop: 1245 Procedure: @TRANSCATHETER OCCLUSION/EMBOLIZATION FOR TUMOR DESTRUCTION (N/A ) Diagnosis: (left ophthalmic aneurysm) Surgeon: Ayaan Castro MD Responsible Provider: Blaise Dorsey MD Anesthesia Type: MAC ASA Status: 3 All Anesthesia Providers: Anesthesiologist: Blaise Dorsey MD TORPEDO SPECIALIST: Tesha Hood CRNA Student Nurse Custody Officer: Sudhir Grullon Vitals Value Taken Time BP 110/55 01/21/2019 2:30 PM Temp 37 ??C (98.6 ??F) 01/21/2019 12:36 PM Pulse 88 01/21/2019 2:32 PM Resp 17 01/21/2019 2:32 PM SpO2 96 % 01/21/2019 2:32 PM Pain Level 8 01/21/2019 2:00 PM Vitals shown include unvalidated device data. Patient Location: PACU/[facility] Level of Consciousness: Awake and Alert Pain Management: Pain Being Addressed PONV: None Cardiovascular Status: At Baseline Respiratory Status: At Baseline Postoperative Fluid Status: Intravascular EUvolemia Possible Anesthetic Complications: NONE apparent at time of evaluation Final Primary Anesthesia Type: General (The anesthetic type performed was the same as planned.) Comments: * Anesthesia Preprocedure Evaluation - Blaise Dorsey MD - 01/20/2019 6:39 PM EDT Pre-Anesthesia Evaluation for: Ghada baez 28 y.o. female. Procedure(s): @TRANSCATHETER OCCLUSION/EMBOLIZATION FOR TUMOR DESTRUCTION Patient Active Problem List Diagnosis ??? Aneurysm of ophthalmic artery ??? HFrEF (heart failure with reduced ejection fraction) SIOBHAN on 09/12/18 which showed interatrial aneurysm with PFO and mild reduced EF ??? Stroke ??? Seizures ??? Patient non adherence ??? Kidney stones ??? Depression ??? Back pain ??? Intracranial aneurysm 05/11/15, Dr Bass 1.?? Diagnostic cerebral angiogram.?? [...] deficit disorder) ??? Scoliosis ??? Heart palpitations Echo: normal heart size and function, trivial MR and TR Loop recorder: SVT rate 212 BPM ??? Chronic pain syndrome ??? Fibromyalgia ??? Migraines Past Medical History: Diagnosis Date ??? ADD [...] IR Arteriogram Cerebral 10/31/2018 Ayaan Castro MD [facility] INTERVENT[facility] RAD ??? LITHOTRIPSY kidney stones ? ? PRG SIOBHAN REAL TIME IMG 2D W PRB IMG ACQUIS I&R N/A 09/12/2018 TRANSESOPHAGEAL ECHOCARDIOGRAM (WRVU 2.55) performed by Ze Freeman MD at [facility] MAIN OR ??? TUBAL LIGATION Social History Tobacco Use ??? Smoking status: Current Every Day Smoker Packs/day: 0.00 Years: 8.00 Pack years: 0.00 Types: Cigarettes ??? Smokeless tobacco: Never Used ??? Tobacco comment: 5-8 Cigs a day Substance Use Topics ??? Alcohol use: Yes Comment: seldom Social History Substance and Sexual Activity Drug Use Yes ??? Types: Marijuana Allergies Allergen Reactions ??? Bee Pollen Anaphylaxis ??? Meperidine Hcl Anaphylaxis and Other (See Comments) flushing, respiratory trouble ??? [place] Other (See Comments) Flu like sx ??? Zoloft [Sertraline] Other (See Comments) Flu like sx Medications: MAR and/or home medications have been reviewed. Physical Exam: There were no vitals filed for this visit. There is no height or weight on file to calculate BMI. Airway Assessment: Mallampati: I TM distance: >3 FB Neck ROM: full Cardiovascular Assessment: Rhythm: regular Pulmonary Assessment: Dental Assessment: - normal exam Misc Assessment: Anesthesia Plan: ASA 3 MAC, with a(n) intravenous induction 27 yo female with known pfo and multiple cryptogenic strokes (right sided),and a family hx of cerebral aneurysms presents for embolization of a left ophthalmic artery aneurysm. PMH chronic pain, depression, fibromyalgia, HepC, remote IVDA, kidney stones. Limited functional tolerance 2/2 pain 1 flight of stairs slowly at baseline. NPO OK Allergies reviewed Medications reviewed Plan GA/Arterial line Region - Intracranial (vascular) Informed Consent: Anesthetic plan and risks discussed with patient. Plan discussed with TORPEDO SPECIALIST and attending. PAT Clinic Note documented in this encounter Plan of Treatment Upcoming Encounters Date Type Department Care Team (Late st Contact Info) Description 01/24/2024 3:40 PM EDT Office Visit Cardiology at [address] [place] [address] Rangel Willams MD [facility] [address] documented as of this encounter Visit Diagnoses Not on filedocumented in this encounter Administered Medications Inactive Administered Medications - up to 3 most recent administrations Medication Order MAR Action Action Date Dose Rate Site albuterol 90 mcg/actuation inhaler PRN, Starting on Mon01/21/19 at 0810, Until Mon01/21/19 at 1247, Anesthesia Intra-op, Routine Given 01/21/2019 12:19 PM EDT 6 puffs Given 01/21/2019 8:10 AM EDT 6 puffs ceFAZolin (ANCEF) 2g in dextrose 5% 100 mL 2 g, Intravenous, ONCE, 1 dose, On Mon01/21/19 at 0745, Administer over 30 Minutes, Redose every 3 hours if CrCl is greater than 20. Redose every 8 hours if CrCl is less than 20., Angio/IR (Day of Procedure), Indication for (Active or Suspected): Prophylaxis Given 01/21/2019 11:23 AM EDT 2 g Given 01/21/2019 8:30 AM EDT 2 g dexamethasone (DECADRON) injection PRN, Starting on Mon01/21/19 at 0854, Until Mon01/21/19 at 1247, Anesthesia Intra-op, Routine Given 01/21/2019 8:54 AM EDT 4 mg dexmedetomidine (PRECEDEX) injection PRN, Starting on Mon01/21/19 at 0850, Until Mon01/21/19 at 1247, Anesthesia Intra-op, Routine Given 01/21/2019 11:51 AM EDT 4 mcg Given 01/21/2019 11:33 AM EDT 4 mcg Given 01/21/2019 11:12 AM EDT 4 mcg fentaNYL 50 mcg/mL multi-dose injection PRN, Starting on Mon01/21/19 at 1234, Until Mon01/21/19 at 1247, Anesthesia Intra-op, Routine Given 01/21/2019 12:43 PM EDT 50 mcg Given 01/21/2019 12:34 PM EDT 50 mcg glycopyrrolate (ROBINUL) multi-dose injection PRN, Starting on Mon01/21/19 at 1208, Until Mon01/21/19 at 1247, Anesthesia Intra-op, Routine Given 01/21/2019 12:08 PM EDT 0.4 mg heparin (porcine) injection PRN, Starting on Mon01/21/19 at 1016, Until Mon01/21/19 at 1247, Anesthesia Intra-op, Routine Given 01/21/2019 10:16 AM EDT 4,000 Units ketamine (KETALAR) 10 mg/mL injection CONTINUOUS PRN, Starting on Mon01/21/19 at 0850, Until Mon01/21/19 at 1247, Anesthesia Intra-op, Routine Rate/Dose Change 01/21/2019 10:18 AM EDT 0.25 mg/kg/hr 2.6 mL/hr New Bag 01/21/2019 8:50 AM EDT 0.5 mg/kg/hr 5.2 mL/hr lactated ringers infusion CONTINUOUS PRN, Starting on Mon01/21/19 at 0756, Until Mon01/21/19 at 1247, Anesthesia Intra-op New Bag 01/21/2019 7:56 AM EDT lidocaine (PF) (XYLOCAINE) 100 mg/5 mL (2 %) injection PRN, Starting on Mon01/21/19 at 0802, Until Mon01/21/19 at 1247, Anesthesia Intra-op, Routine Given 01/21/2019 8:02 AM EDT 60 mg midazolam (PF) (VERSED) multi-dose injection PRN, Starting on Mon01/21/19 at 0756, Until Mon01/21/19 at 1247, Anesthesia Intra-op, Routine Given 01/21/2019 7:56 AM EDT 2 mg neostigmine (BLOXIVERZ) injection PRN, Starting on Mon01/21/19 at 1208, Until Mon01/21/19 at 1247, Anesthesia Intra-op, Routine Given 01/21/2019 12:08 PM EDT 3 mg ondansetron (ZOFRAN) injection PRN, Starting on Mon01/21/19 at 0854, Until Mon01/21/19 at 1247, Anesthesia Intra-op, Routine Given 01/21/2019 11:57 AM EDT 4 mg Given 01/21/2019 8:54 AM EDT 4 mg PHENYLephrine (JOYCE-SYNEPHRINE) 20 mg in sodium chloride 250 mL (standard ADULT & Pedi greater than 20kg) infusion CONTINUOUS PRN, Starting on Mon01/21/19 at 0925, Until Mon01/21/19 at 1247, Anesthesia Intra-op, Routine Rate/Dose Change 01/21/2019 11:37 AM EDT 10 mcg/min 7.5 mL/hr Rate/Dose Change 01/21/2019 11:31 AM EDT 15 mcg/min 11.3 m L/hr Rate/Dose Change 01/21/2019 11:25 AM EDT 20 mcg/min 15 mL/ hr PHENYLephrine in NS (PF) (JOYCE-SYNEPHRINE) 0.8 mg/10 mL (80 mcg/mL) multi-dose injection Syrg PRN, Starting on Mon01/21/19 at 0819, Until Mon01/21/19 at 1247, Anesthesia Intra-op, Routine Given 01/21/2019 10:39 AM EDT 80 mcg Given 01/21/2019 10:38 AM EDT 80 mcg Given 01/21/2019 9:34 AM EDT 80 mcg propofol (DIPRIVAN) 10 mg/mL bolus injection (Anesthesia) PRN, Starting on Mon01/21/19 at 0804, Until Mon01/21/19 at 1247, Anesthesia Intra-op Given 01/21/2019 8:04 AM EDT 200 mg rocuronium (ZEMURON) multi-dose injection PRN, Starting on Mon01/21/19 at 0828, Until Mon01/21/19 at 1247, Anesthesia Intra-op, Routine Given 01/21/2019 10:33 AM EDT 10 mg Given 01/21/2019 9:13 AM EDT 20 mg Given 01/21/2019 8:28 AM EDT 50 mg succinylcholine chloride (Quelicin) injection PRN, Starting on Mon01/21/19 at 0806, Until Mon01/21/19 at 1247, Anesthesia Intra-op, Routine Given 01/21/2019 8:06 AM EDT 100 mg documented in this encounter Care Teams Chopper Feeder Relationship Specialty Start Date End Date Frances Sorensen APRN [address] [place] [address] PCP - General Family Medicine 01/21/19 02/15/22 documented as of this encounter
--- OUTSIDE RECORDS SUMMARY | 2023-12-27 19:45 | XMS_ITS | Encounter Summary ---
Author Organization [facility] [place] [address] Care Team Providers Care Pecan Sheller Name Role Phone Frances Sorensen KIM Primary Care Provider [phone] Reason for Visit * Auth/Cert Specialty Diagnoses / Procedures Referred By Lang sanches Referred To Contact Diagnoses left ophthalmic aneurysm Procedures PRO PERM OCCLUSION/EMBOLIZATION, PERCUT, LLAMA FARMER @TRANSCATHETER OCCLUSION/EMBOLIZATION FOR TUMOR DESTRUCTION Referral ID Status Reason Start Date Expiration Date Visits Re quested Visits Authorized [id number] 1 1 Encounter Details Date Type Department Care Team (Late st Contact Info) Description 01/21/2019 7:30 AM EDT - 01/21/2019 11:30 [place] [address] Ayaan Castro MD [facility] [place] [address] @TRANSCATHETER OCCLUSION/EMBOLIZATION FOR TUMOR DESTRUCTION (WRVU 20.12) Social History Tobacco Use Types Packs/Day Years [...] Sign Reading Time Taken Comments Blood Pressure 137/90 01/21/2019 6:52 AM EDT Pulse 103 01/21/2019 6:52 AM EDT Temperature 37.1 ??C (98.8 ??F) 01/21/2019 6:52 AM ED T Respiratory Rate 18 01/21/2019 6:52 AM EDT Oxygen Saturation 98% 01/21/2019 6:52 AM EDT Inhaled Oxygen Concentration - - [...] aneurysm. ?? Description of the procedure: R ORNAMENTAL METAL FABRICATOR APPRENTICE, L ORNAMENTAL METAL FABRICATOR APPRENTICE access Left ICA angiography Pipeline stenting of left ICA aneurysm Angioseal closure of R ORNAMENTAL METAL FABRICATOR APPRENTICE Mynx closure of L ORNAMENTAL METAL FABRICATOR APPRENTICE Active Hospital Problems: Active Hospital Problems Diagnosis [...] number below. Electronically signed by: Arleth Jain [facility] ([phone]), at 01/23/2019 9:18 AM Pending Studies and [...] Other (See Comments) flushing, respiratory trouble ??? [place] Other (See Comments) Flu like sx ??? [...] . Please call the Neurosurgery Office at [phone] if you do not receive a scheduled appointment within two weeks. You will follow-up with: [] Dr. Reid [x] Dr. Castro Imaging: [x] None [] CT: [] Head [] Neck [] CTA: [] Head [] Neck [] MRA: [] Head [] Neck HOW TO REACH NEUROSURGERY Office Hours: Monday through Monday, 8am-5pm. Call . On weekends or after office hours: Call [phone] and ask the gas scrubber operator to page the Neurosurgery Resident sales development consultant. IMPORTANT PHONE NUMBERS: Outpatient Nurse (Gladys Latif) Inpatient Nurses Neurosurgical Resident On-Call (after 5pm or before 8am) Neurosurgery offices (Monday through Monday between 8am-5pm): Adult Neurosurgery Dr. Woody Huffman Pediatric Neurosurgery Dr. Johnnie Aponte Associate Providers Nina Grimes, Nurse Practitioner Johnnie Tijerina, Physician Carriage Setter Cornell Sorensen, Nurse Practitioner Cheri Freeman, Nurse Practitioner Elvia Almonte, Nurse Practitioner Trisha Awad, Nurse Practitioner * Your surgeon may not be call center assistant, so be ready to tell about yourself [...] . Please call the Neurosurgery Office at [phone] if you do not receive a scheduled [...] 2 times daily. 01/10/2019 Miscellaneous Medical Supply [facility] Measure blood pressure daily. Record pressure 1 [...] consulted in the interim. NELY Royal Pager #[phone] * Alida Macias RN - 01/23/2019 1:17 [...] weakness and numbness. -Continue ASA/Plavix PLEASE PAGE [phone] WITH QUESTIONS Active Hospital Problems Diagnosis ??? [...] have been useful for her headaches at [facility]. Cervical and Lumbar spine MRI [...] body and I know something is wrong. #[phone] notified * Patricia Dimas RN - 01/21/2019 [...] Ayaan Castro I was asked to evaluate Ghdaa Ervin regarding flashing lights. She had stenting of aneurysm 2d ago. She reports peripheral flashing lights OU together, and a sense of snowflakes falling in her vision OU. POH: Migraine with aura PMH: Aneurysm, migraine, anxiety FH: No pertinent history ROS: headaches All others negative Meds: Methadone, nicotine patch, lisinopril, metoprolol, Protonix, Paxil, Pepcid, tizanidine, Plavix, ASA All: Demerol, [place], Zoloft, bee pollen SH: Here with boyfriend Examination Location: [facility] room 86A Ghada Ervin was oriented [...] Bilateral photopsias (flashes) are almost always a LLAMA FARMER phenomenon (eg migraine) and not anocular phenomenon. Her normal exam today confirms no ocular involvement. We recommend she establishregular eyecare with her local optometry practice ([facility]) I have discussed my findings and concerns with Ms. Ervin and Alida Macias RN. Please don't hesitate to contact me if I can be of more assistance. Jose Dahl MD Section of Ophthalmology [facility] page: [phone], office: [phone] * Plan of Care - Michelle Parikh [...] Mutuality Outcome: Ongoing (Interventions Implemented as Appropriate) 01/21/19 192 Mutuality/Individual Preferences What Anxieties, Fears or Concerns Do You Have About Your Health or Care? none What Questions Do You Have About Your Health or Care? none What Information Would Help Us Give You More Personalized Care? keep me informed about my care Goal: Fall Prevention-Safe Patient Handling 01/22/19119901/22/19199901/23/19399 Serra Fall Risk History of Falling -- [...] Primary care provider on file: Frances Sorensen, PUBLIC TRANSIT SPECIALIST [phone] Advance Directive on file and Code Status: Full Code -- Patient does not have advanced directives. Education provided and surrogacy reviewed. Pt declined Advanced Planning Booklet and form. If AD's have not been completed pt's mother would be surrogate decision maker per [place] surrogate decision making law. Any patient receiving care at [facility] must abide by [place] law. The hierarchy for surrogate decision making [...] (i) The agent with financial power of assistant prosecuting attorney or a conservator appointed in accordance with RSA 464-A. (j) The guardian of the patient???s estate. Patient???s Functional Status: Pt is independent at home and in the community, including driving. Living Situation: Lives with mother, step-father and 4 younger siblings (ages 11,14,18 and 22) in ranch-style home with 4 [address]. [address] [facility] [address] Supports: Supportive family, BARRON Deleon Assessment: Patient with no apparent RNCM/SW needs at this time. No housing, transportation, insurance, resources concerns identified at this time. Supports in place to achieve a safe post-hospital transition. No identified barriers to accessing necessary care and/or follow-up after discharge. Plan: Patient to d/c to home via private vehicle when medically ready. transmission supervisor/Director Of Consulting Services will continue to follow patient???s progress and remain available if situation changes for coordination of care, psychosocial support and/or discharge planning. Tabby Verma RN Pager [phone] Extension [phone] * Plan of Care - Marito Butler RN - 01/22/2019 5:49 AM EDT Problem: Patient Care Overview Goal: Plan of Care Review Outcome: Ongoing (Interventions Implemented as Appropriate) 01/22/19 0536 Coping/Psychosocial Plan Of Care Reviewed With patient [...] time 2mg PO dilaudid ordered and administered, #[id number] provider okayed to give PRN valium early. [...] PM EDT Office Visit Cardiology at [address] [address] Rangel Willams MD [facility] [place] [address] documented as of this encounter Procedures Procedure [...] 01/21/2019 11:06 AM EDT Perm Occlusion/Embolizat Willard drew, Seismology Technical Officer ([id number]) 01/21/2019 7:56 AM EDT left ophthalmic aneurysm [...] The Clinical Situation (Reference- Simeonk Et Al, [id number]). Findings: (Prevalence In Patients Without Low Back Pain), DiscDegeneration (Decreased T2 Signal, Height Loss, Bulge) (91%), Disc T2-Signal Loss(83%), Disc Height Loss (56%), Disc Bulge (64%), Disc Protrusion (32%), AnnularFissure (38%). Thank you for letting us participate in the care of this patient. Forquestions regarding this report, please contact the number below. Electronically signed by: Sword C Cristobal, [facility]([phone]), at 01/23/2019 9:18 AM Cheri Freeman PUBLIC TRANSIT SPECIALIST IMG MRI ORDERAB LES * MRI Cervical Spine wo Contrast (Generic) (01/22/2019 7:45 PM EDT) Anatomical Region Laterality Modality C-spine Magnetic Resonan ce Impressions 01/23/2019 9:16 AM EDT Normal exam. Thank you for letting us participate in the care of this patient. For questions regarding this report, please contact the number below. ? Electronically signed by: Arleth Jain [facility] ([phone]), at 01/23/2019 9:16 AM Narrative 01/23/2019 9:16 [...] number below. Electronically signed by: Arleth Jain [facility]([phone]), at 01/23/2019 9:16 AM Cheri Freeman PUBLIC TRANSIT SPECIALIST IMG MRI ORDERAB LES * CT Head wo Contrast (Generic) (01/22/2019 1:36 AM EDT) Anatomical Region Laterality Modality Head Computed Tomogra phy Impressions 01/22/2019 2:04 AM EDT No acute intracranial hemorrhage or mass effect identified. Thank you for letting us participate in the care of this patient. For questions regarding this report, please contact the number below. ? Electronically signed by: Feng La [facility] ([phone]), at 01/22/2019 2:04 AM Narrative 01/22/2019 2:04 [...] this report, please contact the number below. Elvia Almonte APRN IMG CT ORDERABLES * urine, qualitative ([place]) (01/21/2019 11:55 PM EDT) Pathologist [facility] [place] Specific [place] Urine Automated 1.010 1.002 - 1.030 [facility] Comment: As of 2018, this testing was performed using the [employer]. Due to a change in the UA Chemistry Strip used with this analyzer, the resulting values and upper limit for this analyte may vary slightly. Critical values and reporting units remain the same. Human Chorionic Gonadotropin Qualitative, Urine Negative [facility] Comment: If Specific [place] is less than 1.010, a negative result is obtained, and is still suspected, a repeat on a first morning specimen is recommended. Urine specimen (specimen) 01/21/2019 11:55 PM EDT 01/22/2019 12:08 AM EDT Narrative Resulting Agency Comment Spec In Lab Elvia Almonte PUBLIC TRANSIT SPECIALIST URINE ORDERABLES [facility] [place] [address] * (ABNORMAL) BLOOD GAS 2 ARTERIAL (01/21/2019 11:06 AM EDT) pH, Arterial 7.43 7.35 - 7.45 [facility] PCO2, Arterial 30(L) 35 - 45 mmHg [facility] PO2, Arterial 140(H) 85 - 104 mmHg [facility] Bicarbonate, Arterial 19.5(L) 20.0 - 26.0 mmol/L [facility] Base Excess, Arterial -4.8(L) -3.0 - 3.0 mmol/L [facility] Hgb Blood Gas 11.6(L) 11.7 - 15.5 gm/dL [facility] Oxyhemoglobin, Arterial 95.8 94.0 - 97.0 % [facility] Carboxyhemoglob in, Arterial 2.9 % [facility] Comment: Nonsmokers: 0.5-1.5% COHB Smokers: Variable, but usually less than 10% Toxic: 20-30% COHB Lethal: Greater than 60% COHB Methemoglobin, Arterial 0.3 <=1.5 % [facility] Na Whole Blood 135 135 - 145 mmol/L [facility] K Whole Blood 4.0 3.5 - 5.0 mmol/L [facility] Comment: Please note: Patients with WBC >100,000 may have falsely elevated Potassium levels. Contact the Clinical Chemistry Laboratory if there are any questions. ICa Whole Blood 1.09(L) 1.15 - 1.33 mmol/L [facility] Comment: Note: ??Total bilirubin higher than 20 mg/dL may lead to falsely low ionized calcium. CL Whole Blood 109(H) 98 - 107 mmol/L [facility] Gluc Whole Bld 92 65 - 199 mg/dL [facility] Comment:Diabetes: >=200 mg/d L plus symptoms. Lactate WB 0.8 0.5 - 2.2 mmol/L [facility] Blood specimen (specimen) 01/21/2019 11:06 AM EDT 01/21/2019 11:06 AM EDT Ayaan Castro MD POINT OF CARE TEST O RDERABLES [facility] [place] [address] documented in this encounter Visit Diagnoses Not on filedocumented in this encounter Admitting Diagnoses Diagnosis Aneurysm [...] if labetalol ineffective after 1 hour., Routine hydrOXYzine (ATARAX) tablet 25 mg 25 mg, [...] patient's Methadone clinic? [facility] phone: [phone], Date last Methadone dose was given at [...] Butler RN) 0911 (Given - Provider: Alida Macias, ROBERT) ceFAZolin (ANCEF) 2g in dextrose 5% 100 [...] on Mon01/21/19 at 2200, Until Discontinued, Routine 214 (Given - Provider: Marito Butler RN) 0911 (Given - Provider: Alida Macias, ROBERT) famotidine (PEPCID) tablet 20 mg 20 mg, Oral, 2 TIMES DAILY, First dose on Mon01/21/19 at 1345, Until Discontinued 1337 (Given - Provider: Candy Wisdom RN)2016 (Given - Provider: Magy Carlos RN) 0958 (Given - Provider: Patricia Dimas RN)2027 (Given - Provider: Rosita Monsalve RN) 0911 (Given - Provider: Alida Macias RN) fluticasone propionate (FLOVENT) 220 mcg/actuation inhaler 2 puff 2 puff, Inhalation, 2 TIMES DAILY, First dose on Mon01/21/19 at 2100, Until Discontinued, Shake well; Rinse mouth after administration., Routine 2017 (Given - Provider: Magy Carlos RN) 1009 (Given - Provider: Patricia Dimas, RN)2033 (Given - Provider: Rosita Monsalve RN) 0916 (Given - Provider: Alida Macias RN) lidocaine (LIDODERM) 5 % patch 1 patch(Linked Group 1) 1 patch, Transdermal, EVERY 24 HOURS, First dose on Mon01/22/19 at 2030, Until Discontinued, Apply patch(es) for 12 hours, and then remove for 12 hours, Routine 2029 (Patch Applied - Provider: Rosita Monsalve RN) lidocaine (LIDODERM) 5 %(700 mg/patch) Patch Removal(Linked Group 1) Transdermal, EVERY 24 HOURS, First dose on Mon01/23/19 at 0815, Until Discontinued, Remove lidocaine 5 %(700 mg/patch) patch 0815 (Patch Removed - Provider: Alida Macias RN) lisinopril (PRINIVIL;ZESTRIL) tablet 5 mg 5 mg, Oral, DAILY, First dose on Mon01/21/19 at 1700, Until Discontinued, Routine 2144 (Given - Provider: Marito Butler RN) 0958 [...] patient's Methadone clinic? [facility] phone: [phone], Date last Methadone dose was given at [...] Dimas RN) 0912 (Given - Provider: Alida Macias, ROBERT) nicotine (NICODERM CQ) 14 mg/24 hr patch 14 mg (CANCELED)(Linked Group 2) 14 mg (1 patch), Transdermal, Administer over 24 Hours, DAILY, First dose on Mon01/22/19 at 0900, Until Discontinued, Routine 957 (Given - Provider: Patricia Dimas RN) nicotine [...] on Mon01/21/19 at 1715, Until Discontinued, Routine 171 (Not Given - Provider: Patricia Dimas RN - Reason: Patient/family refused)2200 (Given - Provider: Marito Butler RN) 0657 (Given - Provider: Marito Butler RN)1453 (Given - Provider: Patricia Dimas RN)2200 (Not Given - Provider: Michelle Parikh, ROBERT - Reason: Patient/family refused) 0600 (Not Given - Provider: Michelle Parikh RN - Reason: Contraindicated)1400 (Not Given - Provider: [...] Routine 1337 (Given - Provider: Candy Wisdom RN)2017 (Given - Provider: Magy Carlos, ROBERT) 0958 (Given - Provider: Patricia Dimas, ROBERT)2028 (Given - Provider: Rosita Monsalve, ROBERT) 0912 (Given - Provider: Alida Macias RN) sodium chloride 0.9 % (flush) flush 5 mL 5 mL, Intravenous, 2 TIMES DAILY, First dose on Mon01/21/19 at 2100, Until Discontinued, Recovery (Recovery-Hospital Unit), Routine 2100 (Not Given - Provider: Magy Carlos RN - Reason: See comment - Comment: duplicate order) 1010 (Given - Provider: Patricia Dimas RN)2032 (Not Given - Provider: Rosita Monsalve, ROBERT - Reason: Loss of access - Comment: patient only has one IV see other order) 0915 (Given - Provider: Alida L Boule, RN) sodium chloride 0.9 % (flush) flush 5 mL 5 mL, Intravenous, 2 TIMES DAILY, First dose on Mon01/21/19 at 2100, Until Discontinued, Routine 2018 (Given - Provider: Magy Carlos RN) 1010 (Given - Provider: Patricia Dimas RN)2032 (Given - Provider: Rosita Monsalve, ROBERT) 0915 (Given - Provider: Alida Macias RN) tiZANidine (ZANAFLEX) tablet 4 mg 4 mg, Oral, 3 TIMES DAILY, First dose on Mon01/21/19 at 1500, Until Discontinued, Routine 1523 (Given - Provider: Candy Wisdom RN)2017 (Given - Provider: Magy Carlos RN) 0959 (Given - Provider: aPtricia Dimas RN)1453 (Given - Provider: Patricia Dimas RN)2028 (Given - Provider: Rosita Monsalve, ROBERT) 0912 (Given - Provider: Alida Macias RN) Continuous Medication Order 01/21/2019 01/22/2019 01/23/2019 sodium chloride 0.9% infusion 50 mL/hr, Intravenous, CONTINUOUS, Starting on Mon01/21/19 at 1345, Until Mon01/23/19 at 1701, Recovery (Recovery-Hospital Unit) 1334 (New Bag - Provider: Cnady Wisdom RN)1559 (Rate/Dose Verify - Provider: Patricia Dimas RN)2000 (Rate/Dose Verify - Provider: Marito Butler RN) 1030 (Stopped - Provider: Patricia Dimas RN - Comment: IV dislodged/removed, MD at bedside and aware - verbal orders, OK to discontinue fluids, per MD)1708 (Restarted - Provider: Patricia Dimas, ROBERT) PRN Medication Order 01/21/2019 01/22/2019 01/23/2019 acetaminophen [...] Butler RN)0958 (Given - Provider: Patricia Dimas RN)2028 (Given - Provider: Rosita Monsalve RN) 0911 (Given - Provider: Alida Macias, ROBERT) albuterol (PROVENTIL) nebulizer solution 2.5 mg 2.5 [...] Wisdom RN) 1834 (Given - Provider: Alida Macias, ROBERT) diazePAM (VALIUM) tablet 5 mg 5 mg, Oral, EVERY 6 HOURS PRN, Starting on Mon01/21/19 at 1249, Until Mon01/23/19 at 1701, Anxiety, Routine 1305 (Given - Provider: Candy Wisdom RN)2144 (Given - Provider: Marito Butler RN) 0316 (Given - Provider: Marito Butler RN [...] Pain, Routine 2144 (Given - Provider: Marito Butler, ORBERT) HYDROmorphone (DILAUDID) tablet 2 mg (COMPLETED) 2 mg, Oral, ONCE PRN, 1 dose, Starting on Mon01/22/19 at 0304, Until Mon01/22/19 at 0316, Pain, Routine 0316 (Given - Provider: Marito Butler, ROBERT) hydrOXYzine (ATARAX) tablet 25 mg 25 mg, Oral, 4 TIMES DAILY PRN, Starting on Mon01/22/19 at 1502, Until Mon01/23/19 at 1701, Itching, Routine 2030 (Given - Provider: Rosita Monsalve, ROBERT) lidocaine (XYLOCAINE) 10 mg/mL (1 %) injection [...] Sleep, Routine 2028 (Given - Provider: Rosita Monsalve RN) naproxen (NAPROSYN) tablet 250 mg 250 mg, Oral, 2 TIMES DAILY PRN, Starting on Mon01/22/19 at 1503, Until Mon01/23/19 at 1701, Pain, Take with food or milk, Routine 2034 (Given - Provider: Rosita Monsalve RN) 0911 (Given - Provider: Alida Macias RN) sodium [...] patch documented in this encounter Care Teams Pecan Sheller Relationship Specialty Start Date End Date Frances Sorensen APRN [address] [place] [address] PCP - General Family Medicine 01/21/19 02/15/22 documented as of this encounter
--- OUTSIDE RECORDS SUMMARY | 2023-12-27 19:45 | XMS_ITS | Encounter Summary ---
Author Organization [facility] [place] [address] Care Team Providers Care Ends Breakage Clerk Name Role Phone Frances Sorensen KIM Primary Care Provider [phone] Reason for Visit * Reason Comments Medication Refill Encounter Details Date Type Department Care Team (Late st Contact Info) Description 06/13/2019 [place] [phone] Ayaan Castro MD [facility] [place] [address] Social History Tobacco Use Types Packs/Day Years [...] PM EDT Office Visit Cardiology at [address] [phone] Rangel Willams MD [facility] [place] [address] documented as of this encounter Visit Diagnoses Not on filedocumented in this encounter Care Teams Ends Breakage Clerk Relationship Specialty Start Date End Date Frances Sorensen APRN [address] [place] [address] PCP - General Family Medicine 01/21/19 02/15/22 documented as of this encounter
--- OUTSIDE RECORDS SUMMARY | 2023-12-27 19:45 | XMS_ITS | Encounter Summary ---
[place] [address] Care Team Providers Care Marble Supervisor Name Role Phone Frances Sorensen KIM Primary Care Provider Reason for Visit * Reason Onset Date Comments Post Hospital Discharge 01/24/2019 Encounter Details Date Type Department Care Team (Late st Contact Info) Description 01/24/2019 Tele[place] [phone] Nina Ruiz, RN Post Hospital Discharge Social History Tobacco Use Types Packs/Day Years [...] * Telephone Encounter - Nina Ruiz - 01/24/2019 10:16 AM EDT Attempted to contact Ghada Charli Ervin to perform a post-hospital discharge phone call. I was unable to reach her, but left a message to have her call us back when she has time. documented in this encounter Plan of Treatment Upcoming Encounters Date Type Department Care Team (Late st Contact Info) Description 01/24/2024 3:40 PM EDT Office Visit Cardiology at [address] [address] Rangel Willams MD [facility] [place] [address] documented as of this encounter Visit Diagnoses Not on filedocumented in this encounter Care Teams Marble Supervisor Relationship Specialty Start Date End Date Frances Sorensen APRN [address] [place] [address] PCP - General Family Medicine 01/21/19 02/15/22 documented as of this encounter
--- OUTSIDE RECORDS SUMMARY | 2023-12-27 19:45 | XMS_ITS | Encounter Summary ---
[place] [address] Care Team Providers Care Wrapping Machine Helper Name Role Phone MicahVicky Luis A ALVAREZ Primary Care Provider [phone] Encounter Details Date Type Department Care Team (Late st Contact Info) Description 11/20/2018 [place] [address] Luiza Colbert Social History Tobacco Use Types [...] * Telephone Encounter - Luiza Colbert - 11/20/2018 4:40 PM EDT LM for pt to call back to confirm a time for Dr Castro to call her as he has been unable to reach her to discuss her upcoming angiogram on 01/21. Pt called back sent IB message with her mom's# to call and to call tomorrow between 9-5pm documented in this encounter Plan of Treatment Upcoming Encounters Date Type Department Care Team (Late st Contact Info) Description 01/24/2024 3:40 PM EDT Office Visit Cardiology at [address] [address] Rangel Willams MD [facility] [place] [address] documented as of this encounter Visit Diagnoses Not on filedocumented in this encounter Care Teams Wrapping Machine Helper Relationship Specialty Start Date End Date Vicky Obrien APRN PCP - General Family Medicine 08/25/17 11/21/18 documented as of this encounter
--- OUTSIDE RECORDS SUMMARY | 2023-12-27 19:45 | XMS_ITS | Encounter Summary ---
[place] [address] Care Team Providers Care Director Bioinformatics Name Role Phone Micah Vicky Luis A ALVAREZ Primary Care Provider [phone] Reason for Referral * Diagnostic Test (Routine) - Closed Specialty Diagnoses / Procedures Referred By Lang sanches Referred To Contact Radiology Diagnoses Cerebral aneurysm without rupture Procedures IR Embolization Intracranial Ayaan Castro MD [facility] [place] [address] [place] [address] Referral ID Status Reason Start Date Expiration Date V isits Requested Visits Authorized [id number] Closed Specialty Service Requested 11/06/2018 11/06/2019 1 1 Encounter Details Date Type Department Care Team (Late st Contact Info) Description 11/06/2018 [place] [address] Ayaan Castro MD [facility] [place] [address] Cerebral aneurysm without rupture Social [...] 3:40 PM EDT Office Visit Cardiology at [address] [address] Rangel Willams MD [facility] [place] [address] documented as of this encounter Results * IR Embolization Intracranial [...] below. ? Electronically signed by: Ayaan Castro [facility] ([phone]), at 01/29/2019 6:41 AM Narrative 01/29/2019 6:41 AM EDT EXAMINATION: IR [...] Synchro-2 microwire, 6Fr Angio-Seal closure device, 6/7 Cymraes Mynx vascular closure device. Pipeline flex 4 [...] to a continuous heparinized saline infusion. 5 Cymraes Mayito catheter was used to select the common carotid artery, and the sheath advanced into the common carotid artery. Biplane angiography was performed. A 4 Cymraes sheath was placed in the left common [...] be deployed at the arteriotomy site, 6/7 Cymraes Mynx device was successfully placed with good hemostasis. Left PALLETIZER OPERATOR sheath was removed with manual pressure for [...] Roca, Dr. Johnnie Maria Attending: Dr. Castro. Ayaan [place], was present for and performingthe entire procedure. [...] microcatheter, Synchro-2 microwire,6Fr Angio-Seal closure device, 6/7 Cymraes Mynx vascular closure device.Pipeline flex 4 mm [...] connected to a continuousheparinized saline infusion. 5 Cymraes Mayito catheter was used to select the commoncarotid artery, and the sheath advanced into the common carotid artery. Biplane angiography was performed. A 4 Cymraes sheath was placed in the leftcommon femoral [...] was successfully placed with good hemostasis. Left PALLETIZER OPERATOR sheath wasremoved with manual pressure for hemostasis. [...] aneurysm without rupture Cerebral aneurysm, nonruptured Cerebral aneurysm without rupture Cerebral aneurysm, nonruptured documented in this encounter Care Teams Director Bioinformatics Relationship Specialty Start Date End Date Vicky Obrien APRN PCP - General Family Medicine 08/25/17 11/21/18 documented as of this encounter
--- OUTSIDE RECORDS SUMMARY | 2023-12-27 19:45 | XMS_ITS | Encounter Summary ---
[place] [address] Care Team Providers Care Coldfusion Name Role Phone EduFrances KIM Primary Care Provider [phone] Reason for Visit * Reason Onset Date Comments Appointment 05/31/2019 Encounter Details Date Type Department Care Team (Late st Contact Info) Description 05/31/2019 [place] [address] Blu Prather Appointment Social History Tobacco Use Types Packs/Day Years [...] * Telephone Encounter - Luiza Colbert - 06/03/2019 2:02 PM EST Called pt LM with appt for 06/14 with CJE, mailed appt card. * Telephone Encounter - Blu Prather - 05/31/2019 11:03 AM EST Caller and relationship to patient (if other than patient): Ghada , sister's phone Best time to reach caller: Any; Ok to leave a message Message or Reason for Call: Ghada had transportation issues this morning and was out of service range to call. Thus she missed her apt. She called to reschedule her apt. She can be reached today on her sister's phone. Thanks, Appt Needed and Reason: Hck Provider: Ayaan Castro MD documented in this encounter Plan of Treatment Upcoming Encounters Date Type Department Care Team (Late st Contact Info) Description 01/24/2024 3:40 PM EDT Office Visit Cardiology at [address] [address] Rangel Willams MD [facility] [place] [address] documented as of this encounter Visit Diagnoses Not on filedocumented in this encounter Care Teams Coldfusion Relationship Specialty Start Date End Date Frances Sorensen APRN [address] [place] [address] PCP - General Family Medicine 01/21/19 02/15/22 documented as of this encounter
--- OUTSIDE RECORDS SUMMARY | 2023-12-27 19:45 | XMS_ITS | Encounter Summary ---
Author Organization [facility] [place] [address] Care Team Providers Care Scheme Technician Name Role Phone Unknown Primary Care Provider Unavailabl e Reason for Referral * Consultation (Routine) - Closed Specialty Diagnoses / Procedures Referred By Lang sanches Referred To Contact Neurology Diagnoses Intractable periodic headache syndrome without status migrainosus Ayaan Castro MD [facility] DIAGNOSTIC [place] [address] [facility] [address] [place] [address] Referral ID Status Reason Start Date Expiration Date V isits Requested Visits Authorized [id number] Closed Consult, Test & Treat 01/15/2019 01/15/2020 1 1 Encounter Details Date Type Department Care Team (Late st Contact Info) Description 01/15/2019 10:00 AM EDT Office [place] [address] Ayaan Castro MD [facility] DIAGNOST[place] [address] Intractable periodic headache syndrome without status migrainosus; Chronic migraine without aura without status migrainosus, not intractable Social History Tobacco Use Types Packs/Day Years [...] Sign Reading Time Taken Comments Blood Pressure 124/80 01/15/2019 10:04 AM EDT Pulse 86 01/15/2019 10:04 AM EDT Temperature - - Respiratory Rate - - Oxygen Saturation - - Inhaled Oxygen Concentration - - Weight 102.1 kg (225 lb) 01/15/2019 10:04 AM EDT Height 157.5 cm (5' 2) 01/15/2019 10:04 AM EDT Body Mass Index 41.15 01/15/2019 10:04 AM EDT documented in this encounter Progress Notes * Ayaan Castro MD - 01/15/2019 10:00 AM EDT I was unable to make it for appointment but we spoke via phone. We went over the planned procedure. Our intention is to perform flow diversion stenting with the Pipeline device. We discussed the benefits, risks, and alternatives (primarily coiling) to this procedure. She voiced understanding. We also discussed getting a home methadone scrip for the postprocedure period since travel will be more difficult. Her clinic will order this but they need a letter from me about the time it will be needed. We also discussed her headaches. I will make a referral to the [facility] for her regarding this. We can always cancel if they resolve. documented in this encounter Plan of Treatment Upcoming Encounters Date Type Department Care Team (Late st Contact Info) Description 01/24/2024 3:40 PM EDT Office Visit Cardiology at [address] [address] Rangel Willams MD [facility] [place] [address] Scheduled Referrals Name Type Priority Associated Diagnoses Orde r Schedule Referral to Neurology Outpatient Referral Routine Intractable periodic headache syndrome without status migrainosus Ordered: 01/15/2019 documented as of this encounter Visit Diagnoses Diagnosis Intractable periodic headache syndrome without status migrainosus Variants of migraine, not elsewhere classified, with intractable migraine, so stated, without mention of status migrainosus Chronic migraine without aura without status migrainosus, not intractable Chronic migraine without aura, without mention of intractable migraine without mention of status migrainosus documented in this encounter Care Teams Scheme Technician Relationship Specialty Start Date End Date Unknown None PCP - General 11/22/18 01/20/19 documented as of this encounter
--- OUTSIDE RECORDS SUMMARY | 2023-12-27 19:45 | XMS_ITS | Encounter Summary ---
[place] [address] Care Team Providers Care Customer Field Representative Name Role Phone EduFrances KIM Primary Care Provider [phone] Encounter Details Date Type Department Care Team (Late st Contact Info) Description 01/23/2019 Tele[place] [phone] Elise Meyer Social History Tobacco Use Types [...] * Telephone Encounter - Luiza Colbert - 02/07/2019 9:54 AM EDT Scheduled 03/06, LM mom's cell#, and mailed appt card. * Telephone Encounter - Susan Aquino - 01/31/2019 11:08 AM EDT Attempted to reach patient to schedule. Phone rings then disconnects. * Telephone Encounter - Susan Aquino - 01/24/2019 1:38 PM EDT Attempted to reach patient, no answer and voicemail not available. * Telephone Encounter - Elise Meyer - 01/23/2019 3:13 PM EDT Images from the original note were not included. Patient needs f/u appointment(s): With CTE on/around 02/19-03/05 4-6w OV, s/p Intractable periodic headache syndrome without status migrainosus, no imaging requested Cheri Freeman APRN P [facility] Vp Account Director ?? F/u with Dr. Castro in 4-6 documented in this encounter Plan of Treatment Upcoming Encounters Date Type Department Care Team (Late st Contact Info) Description 01/24/2024 3:40 PM EDT Office Visit Cardiology at [address] [address] Rangel Willams MD [facility] [place] [address] documented as of this encounter Visit Diagnoses Not on filedocumented in this encounter Care Teams Customer Field Representative Relationship Specialty Start Date End Date Frances Sorensen APRN [address] [place] [address] PCP - General Family Medicine 01/21/19 02/15/22 documented as of this encounter
--- OUTSIDE RECORDS SUMMARY | 2023-12-27 19:45 | XMS_ITS | Encounter Summary ---
[place] [address] Care Team Providers Care Management Developer Name Role Phone Frances Sorensen KIM Primary Care Provider [phone] Encounter Details Date Type Department Care Team (Late st Contact Info) Description 01/30/2019 Telephone [place] [address] Gilda Fitzgerald Social History Tobacco Use Types [...] * Telephone Encounter - Gilda Fitzgerald - 01/30/2019 3:03 PM EDT Caller: Patient Best time to reach caller: GEORGINA Best number to reach caller: [phone] Reason for call: Blacking out, dizziness, stuttering Recent Surgery?: 01/21/19 If before 4:00 pm: Inform caller that the typical expectation for a call back is within 1-2 hours. documented in this encounter Plan of Treatment Upcoming Encounters Date Type Department Care Team (Late st Contact Info) Description 01/24/2024 3:40 PM EDT Office Visit Cardiology at [address] [address] Rangel Willams MD [facility] [place] [address] documented as of this encounter Visit Diagnoses Not on filedocumented in this encounter Care Teams Management Developer Relationship Specialty Start Date End Date Frances Sorensen APRN [address] [place] [address] PCP - General Family Medicine 01/21/19 02/15/22 documented as of this encounter
--- OUTSIDE RECORDS SUMMARY | 2023-12-27 19:45 | XMS_ITS | Encounter Summary ---
Author Organization [facility] [place] [address] Care Team Providers Care Compliance Administrator Name Role Phone Frances Sorensen STOCK FITTER Primary Care Provider [phone] Encounter Details Date Type Department Care Team (Late st Contact Info) Description 07/14/2019 11:35 PM EDT Ancillary Procedure [place] [address] Derrek Naidu MD [facility] [place] [address] Social History Tobacco Use Types Packs/Day Years [...] PM EDT Office Visit Cardiology at [address] [phone] Rangel Willams MD [facility] [place] [address] documented as of this encounter Procedures Procedure Name Priority Date/Time Associated Diagnosis Comments FILM LIBRARY STORAGE ONLY CT HEAD AND SPINE Routine 07/14/2019 11:32 PM EDT documented in this encounter Results * Film Library- Storage Only CT Head And Spine (07/14/2019 11:32 PM EDT) Narrative TARI - 07/14/2019 11:32 PM EDT This exam is auto-finalizing. It's purpose is for storage only. Derrek Naidu MD IMStephanie FILM LIBRARY ORDERABLES Performing Organization Address City/State/[facility] Co de Phone Number [place], [place] documented in this encounter Visit Diagnoses Not on filedocumented in this encounter Care Teams Compliance Administrator Relationship Specialty Start Date End Date Frances Sorensen APRN [address] [place] [address] PCP - General Family Medicine 01/21/19 02/15/22 documented as of this encounter
--- OUTSIDE RECORDS SUMMARY | 2023-12-27 19:45 | XMS_ITS | Encounter Summary ---
Author Organization [facility] [place] [address] Care Team Providers Care Reheater Helper Name Role Phone Frances Sorensen APRN Primary Care Provider [phone] Encounter Details Date Type Department Care Team (Late st Contact Info) Description 01/23/2019 Ophth [place] [address] Ross Harris P, COT Social History Tobacco Use Types Packs/Day Years [...] PM EDT Office Visit Cardiology at [address] [phone] Rangel Willams MD [facility] [place] [address] documented as of this encounter Visit Diagnoses Not on filedocumented in this encounter Care Teams Reheater Helper Relationship Specialty Start Date End Date Frances Sorensen APRN [address] [place] [address] PCP - General Family Medicine 01/21/19 02/15/22 documented as of this encounter
--- OUTSIDE RECORDS SUMMARY | 2023-12-27 19:45 | XMS_ITS | Encounter Summary ---
Author Organization [facility] [address] Care Team Providers Care Rose Grading Supervisor Name Role Phone Vicky Obrien Luis A ALVAREZ Primary Care Provider [phone] Encounter Details Date Type Department Care Team (Latest Contact Info) Description 10/31/2018 6:50 AM EDT Laboratory [place] [phone] Intracranial aneurysm Social History Tobacco Use Types Packs/Day [...] PM EDT Office Visit Cardiology at [address] [phone] Rangel Willams MD [facility] [place] [address] documented as of this encounter Procedures Procedure Name Priority Date/Time Associated Diagnosis Comments CREATININE STAT 10/31/2018 6:54 AM EDT Intracranial aneurysm APTT STAT 10/31/2018 6:54 AM EDT Intracranial aneurysm PROTHROMBIN TIME STAT 10/31/2018 6:54 AM EDT Intracranial aneurysm PLATELET COUNT STAT 10/31/2018 6:54 AM EDT Intracranial aneurysm documented in this encounter Results * Platelet count (10/31/2018 6:54 AM EDT) Platelet 251 145 - 357 x10(3)/mc L [facility] Immature Plt % 3.8 0.0 - 7.4 % [facility] Comment: Limitation of the Immature Platelet Fraction (IPF)-May be less reliable when the platelet count is less than 07r348/uL due to statistical imprecision. The IPF value [...] in a decreased state of production. References: [employer] The Clinical Value of the Immature Platelet Fraction (IPF) in Cell Recovery Document Number [id number] 09/2010 [employer] The Role of the Immature Platelet Fraction (IPF) in the Differential Diagnosis of Thrombocytopenia, Document [id number] V05/04/06 P05/14 Blood specimen (specimen) 10/31/2018 6:54 AM EDT 10/31/2018 7:00 AM EDT Narrative Resulting Agency Comment Spec In Lab Ayaan Castro MD HEMATOLOGY ORDERABLE S [facility] [place] [address] * APTT (10/31/2018 6:54 AM EDT) Partial Thromboplastin Time 30 25 - 37 sec [facility] Comment: The PTT is NOT appropriate for heparin monitoring. Use the Anti-Xa level for heparin monitoring (HEP UFH) or LMWH monitoring (HEP LMW). A PTT less than 37 seconds generally indicates adequate hemostasis. Blood specimen (specimen) 10/31/2018 6:54 AM EDT 10/31/2018 7:00 AM EDT Narrative Resulting Agency Comment Spec In Lab Ayaan Castro MD HEMATOLOGY ORDERABLE S Performing Organization Address [facility] Co de Phone Number [facility] [place] [address] * Prothrombin Time (10/31/2018 6:54 AM EDT) Prothrombin Time 11.0 9.4 - 12.5 sec [facility] International Normalization Ratio 1.0 [facility] Comment: An INR <2.0 indicates [...] MD HEMATOLOGY ORDERABLE S Performing Organization Address [facility]/ZIP Co de Phone Number [facility] [place] [address] * Creatinine (10/31/2018 6:54 AM EDT) Creatinine 0.76 0.70 - 1.20 mg/dL [facility] Est Glomerular Filtration Rate 107 >=60 mL/min/1.7 3 m?? [facility] Comment: The eGFR was calculated using the CKD-EPI equation. As with all creatinine based estimates of kidney function, eGFR values calculated with the CKD-EPI equation are not accurate in patients with acute kidney failure, extremes of body mass or the acutely ill. [email or web address] eGFR 124 >=60 mL/min/1.7 3 m?? [facility] Comment: The eGFR was calculated using the CKD-EPI equation. As with all creatinine based estimates of kidney function, eGFR values calculated with the CKD-EPI equation are not accurate in patients with acute kidney failure, extremes of body mass or the acutely ill. [email or web address] Blood specimen (specimen) 10/31/2018 6:54 AM EDT 10/31/2018 7:00 AM EDT Narrative Resulting Agency Comment Spec In Lab Ayaan Castro MD CHEMISTRY ORDERABLES [facility] [place] [id number] documented in this encounter Visit Diagnoses Diagnosis Intracranial aneurysm Cerebral aneurysm, nonruptured documented in this encounter Care Teams Rose Grading Supervisor Relationship Specialty Start Date End Date Vicky Obrien APRN PCP - General Family Medicine 08/25/17 11/21/18 documented as of this encounter
--- OUTSIDE RECORDS SUMMARY | 2023-12-27 19:45 | XMS_ITS | Encounter Summary ---
[place] [address] Care Team Providers Care Representative Name Role Phone Frances Sorensen KIM Primary Care Provider [phone] Encounter Details Date Type Department Care Team (Late st Contact Info) Description 03/29/2019 [place] [phone] Nina Ruiz, RN Social History Tobacco Use [...] * Telephone Encounter - Nina Ruiz - 03/29/2019 10:21 AM EST I attempted to contact Ghada to f/u on her no show appt with Dr. Castro on 03/27. Her VM box ws full so I was unable to LM and the number in the care coordination note was unavailable. When she calls back let her know that Dr. Castro would like her to have an angiogram in 1 year from her procedure ~01/22/2020. documented in this encounter Plan of Treatment Upcoming Encounters Date Type Department Care Team (Late st Contact Info) Description 01/24/2024 3:40 PM EDT Office Visit Cardiology at [address] [address] [facility] [place] [address] documented as of this encounter Visit Diagnoses Not on filedocumented in this encounter Care Teams Representative Relationship Specialty Start Date End Date Frances Sorensen APRN [address] [place] [address] PCP - General Family Medicine 01/21/19 02/15/22 documented as of this encounter
--- OUTSIDE RECORDS SUMMARY | 2023-12-27 19:45 | XMS_ITS | Encounter Summary ---
Author Organization [facility] [place] [address] Care Team Providers Care Cook Helper Vegetable Name Role Phone Unknown Primary Care Provider Unavailabl e Encounter Details Date Type Department Care Team (Late st Contact Info) Description 01/15/2019 Telephone [place] [phone] Ayaan Castro MD [facility] [place] [address] Social History Tobacco Use Types [...] PM EDT Office Visit Cardiology at [address] [address] Rangel Willams MD [facility] [place] [address] documented as of this encounter Visit Diagnoses Not on filedocumented in this encounter Care Teams Cook Helper Vegetable Relationship Specialty Start Date End Date Unknown None PCP - General 11/22/18 01/20/19 documented as of this encounter
--- OUTSIDE RECORDS SUMMARY | 2023-12-27 19:45 | XMS_ITS | Encounter Summary ---
[place] [address] Care Team Providers Care Stamps Or Coins Salesperson Name Role Phone Frances Sorensen KIM Primary Care Provider [phone] Reason for Visit * Reason Onset Date Comments Other 05/16/2019 Encounter Details Date Type Department Care Team (Late st Contact Info) Description 05/16/2019 [place] [phone] Andres Wray MD [facility] [address] Other Social History Tobacco Use Types Packs/Day Years [...] encounter Miscellaneous Notes * Telephone Encounter - Reva St RN - 05/16/2019 3:48 PM EST Called patient and left a VM regarding her dental work. Requested a call back. Called [facility] and clarified why they requested patient be cleared by neurologist . They stated that patient had told them she was being seen for seizures. I informed them that the patient was being seen here in neurology for migraines but we had not seen her face to face for a few years. I informed them that she was also seeing neurosurgery. I told them to reach out to a provider that has had a more recent face to face with patient. * Telephone Encounter - Patty Nelson - 05/16/2019 2:48 PM EST Clinical Vegetable Specker Message Caller: Ghada Call back Number: [phone] Reason for call: Dental work Message/information for the nurse: Pt needs to have dental work done that might require anesthesia or gas and they will not do it without consent from Dr. Wray. The facility is called [facility]. Disposition of Call ?? Routine Message sent to the Nurse documented in this encounter Plan of Treatment Upcoming Encounters Date Type Department Care Team (Late st Contact Info) Description 01/24/2024 3:40 PM EDT Office Visit Cardiology at [address] [address] Rangel Willams MD [facility] [place] [address] documented as of this encounter Visit Diagnoses Not on filedocumented in this encounter Care Teams Stamps Or Coins Salesperson Relationship Specialty Start Date End Date Frances Sorensen APRN [address] [place] [address] PCP - General Family Medicine 01/21/19 02/15/22 documented as of this encounter
--- OUTSIDE RECORDS SUMMARY | 2023-12-27 19:46 | XMS_ITS | Encounter Summary ---
[place] [address] Care Team Providers Care Design Center Consultant Name Role Phone MicahVicky Luis A ALVAREZ Primary Care Provider [phone] Encounter Details Date Type Department Care Team (Late st Contact Info) Description 09/20/2018 [place] [address] Estrella Schroeder RN Social History Tobacco Use Types Packs/Day Years Used Date Smoking Tobacco: Former Cigarettes Smokeless Tobacco: Never Comments:quit apr 2015 Alcohol Use Standard Drinks/Week Comments Not Asked 0 (1 standard drink = 0.6 oz pur e alcohol) seldom Sex and Gender Information Value Date Recorded Sex Assigned at Not on file Gender Identity Not on file Sexual Orientation Not on file documented as of this encounter Miscellaneous Notes * Telephone Encounter - Estrella Schroeder RN - 09/20/2018 2:36 PM EDT Images from the original note were not included. Call placed to pt, message left with friend requesting call back. Pt currently at appt Neurology Discharge 1-2 Day Post Discharge Follow UP PATIENT INFORMATION *items needed for [employer] 1) Person providing information: Admit date: 09/05/2018 Discharge date and time: 197:03 PM 2) *Diagnosis: small multiple small foci of recent/acute ischemic changes in the R. Cerebral hemishperhe involving the R parietal, posterior frontal, and occipital lobe 3) *Discharge Service: Neurology HEALTH UPDATE 1) *Have you had any new neurological symptoms since or had any unscheduled visits or calls with your PCP, an ER, urgent care, or other healthcare provider for neurological symptoms? a) If yes, what was the concern and the plan? b) Any changes to your medications or treatment plan? 2) *Any falls since discharge? a) If yes, were there any injuries? b) Are you using a walker, cane, ski poles, or other tools to help you move around inside and outside your home? i) If yes, is this new? MEDICATION 1) New Medication started: aspirin 81 mg Tbec Take 1 tablet by mouth daily. ?? clopidogrel 75 mg Tab Commonly known as: PLAVIX Take 1 tablet by mouth daily. ?? hydrOXYzine 25 mg Tab Commonly known as: ATARAX Take 1 tablet by mouth 3 times daily as needed (Use in combination with Naproxen for migraine ). ?? lisinopril 5 mg Tab Commonly known as: PRINIVIL;ZESTRIL Take 1 tablet by mouth daily. Start taking on: 09/13/2018 ?? metoprolol succinate 25 mg Tablet sr Commonly known as: TOPROL-XL Take 2 tablets by mouth daily. ?? naproxen sodium 550 mg Tab Commonly known as: ANAPROX Take 1 tablet by mouth 3 times daily as needed (Use in combination with Hydroxyzine for migraine ). ?? nicotine 21 mg/24 hr Pt24 Commonly known as: NICODERM CQ Place 1 patch onto the skin daily. ?? ondansetron 4 mg Tab Commonly known as: ZOFRAN Take 1 tablet by mouth every 8 hours. ?? pantoprazole 40 mg Tbec Commonly known as: PROTONIX Take 2 tablets by mouth daily. ?? tiZANidine 4 mg Tab Commonly known as: ZANAFLEX Take 1 tablet by mouth 3 times daily. 2) Discontinued Medication: omeprazole 40 mg Cpdr Commonly known as: PriLOSEC 3) *Has there been any problem getting or taking medications (especially Plavix, Coumadin, Lovenox,or other anticoagulants)? 4) Has there been any new symptoms or side effects since starting the new medications? a) Any new bleeding, bruising, constipation? 5) *Were you provided with clear instructions on [facility] and [facility] APPOINTMENTS Assure that patient understands reason for follow up appointments and contact information. 1) PCP Appointment: 2) Specialist: 3) Diagnostic (lab/radiology): 4) Discuss planning ahead for your office visit by bringing in written questions. DISCHARGE SERVICES 1) *Is there an agency coming to help at home with physical therapy, occupational therapy, or nursing? a) Name of agency? [facility] [employer]. PHONE: [phone] FAX: [phone] b) Offer referral for therapy in a local hospital or with a local company if patient is not gettinghome care services? 2) Are coordination of discharge services needed (home care/DME/meals on wheels)? a) If yes, assure that patient understands reason for services and contact information. i) Name of agency: ii) Type of Service: iii) Stroke Support Group? HOSPITAL STAY 1) *Was the educational material regarding stroke/TIA helpful? 2) *Do you feel confident that you and your family have the information you need now that you are home? SIGNS OF STROKE 1) *Reviewed the 5 signs of stroke with patient and what to do if any urgent/emergent symptoms occur: a) NUMBNESS or weakness of face, arm, or leg, especially on one side of the body. b) CONFUSION, trouble speaking or understanding speech. c) TROUBLE SEEING in one or both eyes. d) TROUBLE WALKING, dizziness, loss of balance or coordination. e) SEVERE HEADACHE with no known cause. documented in this encounter Plan of Treatment Upcoming Encounters Date Type Department Care Team (Late st Contact Info) Description 01/24/2024 3:40 PM EDT Office Visit Cardiology at [address] [address] Rangel Willams MD [facility] [place] [address] documented as of this encounter Visit Diagnoses Not on filedocumented in this encounter Care Teams Design Center Consultant Relationship Specialty Start Date End Date Vicky Obrien APRN PCP - General Family Medicine 08/25/17 11/21/18 documented as of this encounter
--- OUTSIDE RECORDS SUMMARY | 2023-12-27 19:46 | XMS_ITS | Encounter Summary ---
[place] [address] Care Team Providers Care Asthma Educator Name Role Phone ObrienVicky Luis A ALVAREZ Primary Care Provider [phone] Encounter Details Date Type Department Care Team (Late st Contact Info) Description 09/21/2018 Telephone [place] [address] Susan Aquino Social History Tobacco Use Types [...] Telephone Encounter - Gladys Latif RN - 09/21/2018 10:35 AM EDT I left a vm message for Ghada letting her know to get medication prescriptions from whomever hasbeen prescribing them. * Telephone Encounter - Susan Aquino - 09/21/2018 10:17 AM EDT Caller: Patient Best time to reach caller: anytime Best number to reach caller: [phone] Reason for call: Patient missed her scheduled appointment with [facility] on 09/19/18 and is rescheduled for 10/24/18. Patient would like to know what should be done about her medications as she will run out prior to her appointment. Please call to discuss. Thank you. Recent Surgery?: no If before 4:00 pm: [...] PM EDT Office Visit Cardiology at [address] [address] Rangel Willams MD [facility] [place] [address] documented as of this encounter Visit Diagnoses Not on filedocumented in this encounter Care Teams Asthma Educator Relationship Specialty Start Date End Date Vicky Obrien APRN PCP - General Family Medicine 08/25/17 11/21/18 documented as of this encounter
--- OUTSIDE RECORDS SUMMARY | 2023-12-27 19:46 | XMS_ITS | Encounter Summary ---
[place] [address] Care Team Providers Care Crap Shooter Name Role Phone Vicky Obrien Luis A ALVAREZ Primary Care Provider [phone] Reason for Visit * Reason Onset Date Comments Medication Refill 09/21/2018 Encounter Details Date Type Department Care Team (Late st Contact Info) Description 09/21/2018 Telephone [place] [id number] Andres Wray MD [facility] [place] [address] Medication Refill Social History Tobacco Use Types Packs/Day Years [...] Miscellaneous Notes * Telephone Encounter - Neha Rm, [facility] - 09/25/2018 10:00 AM EDT Patient called and message left @ 10:00 to let her know she needed to request additional refills for her current pcp. She was given 5 day's worth of medication by Dr. Wray at discharge only. She has not been seen in clinic by the headache team for years, I did reach out to them as well. * Telephone Encounter - Mcdowell Luiza - 09/21/2018 10:54 AM EDT Clinical Machinist Outside message Caller: Ghada If not Pt / Relation to pt: Call back number: [phone] Best time to reach caller if there are questions with medication refill request: Anytime Name of Med: Ondansetron (Zofran) Strength of Pills: 4mg tablet Dosing Directions: Take 1 tablet by mouth every 8 hours. 30 or 90 Day: 20 tablet Pharmacy: [facility] Last Appointment: Inpatient 09/04 Next Appointment: Not yet sched. Is Patient out of Medication?: Yes Name of Med: Tizanidine (Zanaflex) Strength of Pills: 4mg Dosing Directions: Take 1 tablet by mouth 3 times daily 30 or 90 Day: 30 tablet Pharmacy: [facility]rozco [facility] Is Patient out of Medication?: A day or two Name of Med: Hydroxyzine (Atarax) Strength of Pills:25mg Dosing Directions: Take 1 tablet by mouth 3 times daily as needed (Use in combination with Naproxenfor migraine .) 30 or 90 Day: 30 tablet Is Patient out of Medication?: 4 days Name of Med: Metoprolol succinate (Toprol XR) Strength of Pills:25mg Dosing Directions: Take 2 tablets by mouth daily 30 or 90 Day: 30 tablet Is Patient out of Medication?: 5 days documented in this encounter Plan of Treatment Upcoming Encounters Date Type Department Care Team (Late st Contact Info) Description 01/24/2024 3:40 PM EDT Office Visit Cardiology at [address] [address] Rangel Willams MD [facility] [place] [place] [address] documented as of this encounter Visit Diagnoses Not on filedocumented in this encounter Care Teams Crap Shooter Relationship Specialty Start Date End Date Vicky Obrien APRN PCP - General Family Medicine 08/25/17 11/21/18 documented as of this encounter
--- OUTSIDE RECORDS SUMMARY | 2023-12-27 19:46 | XMS_ITS | Encounter Summary ---
Author Organization [facility] [place] [address] Care Team Providers Care Corrugator Helper Name Role Phone Micah Vicky Gunn APRN Primary Care Provider [phone] Reason for Referral * High Dollar Medication (Routine) - Specialty Diagnoses / Procedures Referred By Lang sanches Referred To Contact Neurology Diagnoses Intractable chronic migraine without aura and with status migrainosus Procedures Auth Request for Medication Stefanie Rivers MD [facility] [place] [address] [facility] [address] [place] [address] Referral ID Status Reason Start Date Expiration Date V isits Requested Visits Authorized [id number] Consult, Test & Treat 09/12/2018 09/12/2019 4 4 Encounter Details Date Type Department Care Team (Late st Contact Info) Description 09/12/2018 [place] [address] [facility] [place] [address] Intractable chronic migraine without aura and with status migrainosus Social History Tobacco Use Types Packs/Day Years [...] PM EDT Office Visit Cardiology at [address] [address] Rangel Willams MD [facility] [place] [address] documented as of this encounter Visit Diagnoses Diagnosis Intractable chronic migraine without aura and with status migrainosus Chronic migraine without aura, with intractable migraine, so stated, with status migrainosus documented in this encounter Care Teams Corrugator Helper Relationship Specialty Start Date End Date Vicky Obrien APRN PCP - General Family Medicine 08/25/17 11/21/18 documented as of this encounter
--- OUTSIDE RECORDS SUMMARY | 2023-12-27 19:46 | XMS_ITS | Encounter Summary ---
[place] [address] Care Team Providers Care [employer] Finisher Name Role Phone ObrienVicky Luis A ALVAREZ Primary Care Provider [phone] Reason for Visit * Auth/Cert Specialty Diagnoses / Procedures Referred By Lang sanches Referred To Contact Diagnoses Stroke CVA Procedures EMERGENCY IPI Referral ID Status Reason Start Date Expiration Date Visits Re quested Visits Authorized [id number] 1 1 Encounter Details Date Type Department Care Team (Late st Contact Info) Description 09/12/2018 12:17 PM EDT - 09/12/2018 1:17 PM EDT Surgery [place] [address] Ze Freeman MD [facility] [place] [address] TRANSESOPHAGEAL ECHOCARDIOGRAM (WRVU 2.3) Social History Tobacco Use Types Packs/Day Years Used Date Smoking Tobacco: Former Cigarettes Smokeless Tobacco: Never Tobacco Cessation:Counseling Given: No Comments:quit apr 2015 Alcohol Use Standard Drinks/Week Comments Not Asked 0 (1 standard drink = 0.6 oz pur e alcohol) seldom Sex and Gender Information Value Date Recorded Sex Assigned at Not on file Gender Identity Not on file Sexual Orientation Not on file documented as of this encounter Last Filed Vital Signs Vital Sign Reading Time Taken Comments Blood Pressure 114/59 09/12/2018 1:15 PM EDT Pulse 69 09/12/2018 1:15 PM EDT Temperature 36.6 ??C (97.9 ??F) 09/12/2018 1:02 PM ED T Respiratory Rate 12 09/12/2018 1:15 PM EDT Oxygen Saturation 94% 09/12/2018 1:15 PM EDT Inhaled Oxygen Concentration - - Weight 109.9 kg (242 lb 3.2 oz) 09/06/2018 9:47 AM EDT Height 157.5 cm (5' 2) 09/05/2018 2:28 PM EDT Body Mass Index 44.3 09/05/2018 2:28 PM EDT documented in this encounter Discharge Summaries * Andres Wray MD - 09/12/2018 4:27 PM EDT Images from the original note were not included. Discharge Summary Patient Name: Savannah Moore Patient Age: 27 y.o. Language: Montserratian Race: White Ethnicity: Not nor Admit date: 09/05/2018 Discharge date and time: 197:03 PM Attending Physician: Taya Jimenez MD Discharge Physician: Dr. Aldana Follow-up Recommendations for Providers: -Please obtain outpatient EGD and ensure follow-up with GI for Hepatitis C and intractable nausea and vomiting. Patient underwent a CTV Pelvis which was able to capture the Abdominal RUQ. Per Radiology, no acute/chronic pathologies were seen. Consider RUQ US as an outpatient. -Please ensure patient has follow-up with Cardiology for her HFrEF and possible PFO closure. -Please obtain outpatient angiogram and ensure patient has follow-up with Stroke Neurology -Please assess for progression/resolution of her headaches Please consider repeating LP if headache persists (obtain both opening an closing pressures). Please ensure patient has follow-up with the Headache Clinic. Could consider treatment with Botox injection or SPG block. -Please ensure patient has follow-up with Optometry for her Myopia. Inpatient Provider Contact Information: For questions regarding this document or issues related to this hospitalization on the Neurology Service, please contact the author(s) of this discharge summary through the [facility] [employer] . Discharge Diagnoses: Active Hospital Problems Diagnosis ??? Stroke Resolved Hospital Problems No resolved problems to display. Past medical History: Past Medical History: Diagnosis Date ??? ADD (attention deficit disorder) 09/18/2014 ??? Back pain ??? Chronic pain syndrome 01/15/2014 ??? Depression ??? Fibromyalgia 01/15/2014 ??? Heart palpitations 01/15/2014 ??? Kidney stones ??? Migraines 01/15/2014 ??? Patient non adherence ??? Scoliosis 09/18/2014 ??? Seizures Active Non Hospital Problems: Active Non-Hospital Problems Diagnosis ??? Seizures ??? Patient non adherence ??? [...] ??? Fibromyalgia ??? Migraines History of Presentation: Savannah Moore is a 27 y.o. R handed F with a PMHx of migraines (age on onset 10), cerebral aneurysm s/p clipping and coiling (2014), asthma ,depression, PTSD, IVDA (abstinent for 17 months), hepatitis C (untreated) who presented to OSH on 09/03 complaining of worsening headaches for the past 6 months, now with new multifocal infarcts. ?? CUADRA occur coulple times a week associated with blurred vision, tinnitus, flashing lights, seeing colored spots, N/V. CUADRA radiates from the top of her head down her back and neck. These headaches have also been associated with low grade fever (101) and diaphoresis for the past week. Pt has gained 80lbs in past 2 years, ?? OSH course with negative CTH, CTA (marred by motion artifact) MRI and MRV demonstrated small multiple small foci of recent/acute ischemic changes in the R. Cerebral hemishperhe involving the R parietal, posterior frontal, and occipital lobe. cbc, cmp neg. ALFREDO and RF neg LP showed elevated closing pressure of 35. Her CSF was otherwise normal (2 WBC, 1 RBC, normal glucose, and normal protein). Based on her closing pressure there was concern for IIH. ?? She was given compazine, dilaudid, morphine, and benadryl. It is unclear if her headache was responsive to the LP or to her medications. Recommended pt be transferred given concern for IIH, venous sinus thrombosis, and empty sella syndrome and also to obtain ophthalmology eval. ? Vitals on Presentation to OSH Temp - 37.3 PA - 97 RR - 21 BP - 116/76 ?? OSH Labs: WBC - 4.48 Hbg - 12.4 Hct - 31.8 Plt - 237 ?? Na - 140 K - 3.6 Cl - 102 CO2 - 29.9 BUN - 18 Cr - 1.02 Glu - 74 ?? AST - 45 ALT - 59 ALP - 142 ?? UTox Positive for: Opiates and Methadone BD and UC pending ?? LP CSF Glu - 55 CSF Protein - 27 CSF WBC - 2 CSF RBC - 1 CSF Cultures - NGTD ?? Physical Exam at Admission: Gen: NAD Neck: Supple, occipital tenderness, no meningismus CV: + S1, S2, RRR, no murmur Resp: CTA B/L Abd: nondistended Ext: No edema. No bony deformity Neuro Exam: MS: AAOx4, clear language, no dysarthria CN: PERRL, visual ching full Inability to full abduct R eye Fundoscopic exam very limited--diff to visualize optic disk (R disk papilledema) Facial sensation decreased on left (ongoing of 6 months), no facial asymmetry Motor: Normal bulk and tone. 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 +pronator drift on left LE: 5/5 R, 4/5 L Hip flexion 5/5 R, 4/5 L Knee extension 5/5 R, 4/5 L Knee flexion 5/5 R, 4/5 L Foot dorsiflexion 5/5 R, 4/5 L Foot plantar flexion Sensation: Decreased to light touch over L left Reflexes: DTRs 2+ R, 2+ L Biceps 2+ R, 2+ L Brachioradialis 2+ R, 2+ L Triceps 2+ R, 2+ L Patellar 2+ R, 2+ L Achilles tendon Toes - R mute, L mute Coordination: L dysmetria ?? NIH stroke Scale: NIH Stroke Scale: (bold applicable choices) NIH Stroke Scale at Initial Evaluation: ?? 1.a. Level of consciousness: 0-Alert 1-Not alert, but arousable with minimal stimulation 2-Not alert, requires repeat stimulation to attend 3-Coma 1.b. Ask patient the month and their age: 0-Answers both correctly 1-Answers one correctly 2-Both incorrect 1.c. Ask patient to open and close eyes: 0-Obeys both correctly 1-Obeys one correctly 2-Both incorrect 2. Best gaze (horizontal eye movement): 0-Normal 1-Partial gaze palsy 2-Forced deviation 3. Visual field testin-No visual field loss 1-Partial hemianopia 2-Complete hemianopia 3-Bilateral hemianopia (blind including cortical blindness) 4. Facial paresis (Ask patient to show teeth or raise eyebrows and close eyes tightly): 0-Normal symmetrical movement 1-Minor paralysis (flattened nasolabial fold, asymmetry on smiling) 2-Partial paralysis (total or near paralysis of lower face) 3-Complete paralysis of one or both sides (absence of facial movement in the upper and lower face) 5. Motor function right arm: 0-Normal (extends arm 90 degrees for 10 seconds without drift) 1-Drift 2-Some effort against gravity 3-No effort against gravity 4-No movement UT-Untestable (Joint fused or limb amputated) 5. Motor function- left arm: 0-Normal (extends arm 90 degrees for 10 seconds without drift) 1-Drift 2-Some effort against gravity 3-No effort against gravity (but baseline) 4-No movement UT-Untestable (Joint fused or limb amputated) 6. Motor function right le-Normal (extends leg 30 degrees for 5 seconds without drift) 1-Drift 2-Some effort against gravity 3-No effort against gravity 4-No movement UT-Untestable (Joint fused or limb amputated) 6. Motor function-left le-Normal (extends leg 30 degrees for 5 seconds without drift) 1-Drift 2-Some effort against gravity 3-No effort against gravity 4-No movement UT-Untestable (Joint fused or limb amputated) 7. Limb ataxia: 0-No ataxia 1-Present in one limb 2-Present in two limbs 8. Sensory (Use pinprick to test arms, legs, trunk and face compare side to side): 0-Normal 1-Mild to moderate decrease in sensation 2-Severe to total sensory loss 9. Best language (describe picture, name items, read sentences): 0-No aphasia 1-Mild to moderate aphasia 2-Severe aphasia 3-Mute 10. Dysarthria (read several words): 0-Normal articulation 1-Mild to moderate slurring of words 2-Near unintelligible or unable to speak UT-Intubated or other physical barrier 11. Extinction and inattention: 0-Normal 1-Inattention or extinction to bilateral simultaneous in one of the sensory modalities 2-Severe maribel-inattention or maribel-inattention to more than one modality ?? TOTAL SCORE: 1 ?? Hospital Course:: Savannah Moore is a 27 y.o. female who was admitted to the neurology service for further evaluation of headaches. Neurological examination on admission was pertinent for LUE and LLE weakness. Patient was monitored with frequent checks of vitals and neurological status. Telemetry monitoring showed NSR . Permissive HTN was allowed, with labetalol administered prn for SBP >220. MRI from OSH dem onstrated multiple small foci of recent /acute ishcemic changes right cerebral hemisphere involvingthe right parietal lobe, posterior frontal lobe, and right occipital lobe. Vascular imaging showed no evidence for dural venous sinus thrombosis and paucity of branches in the right frontal MCA territory . TTE revealed diffuse hypokinesis with an LVEF of 45%. See detailed reports as below. Most likely etiology of stroke was cryptogenic but suspect thromboemboli originating from previous aneurysm clip. #R. Parietal, R. Posterior Frontal, R. Occipital Infarcts #Headaches On presentation, there was concern for venous thrombosis; however, CTV was negative for dural venous sinus thrombosis. It was unclear if her headaches were related to her strokes, secondary to IIH vs. Meningitis, or perhaps related to migraines. On further questioning her headaches had been ongoingfor ~6 months prior to her presentation in ED. Her workup at OSH did not suggest meningitis since her WBC was not elevated, her CSF Glucose/Protein/WBC were normal, and she was afebrile. We were concern for IIH given her OSH LP closing pressure of 35 (opening pressure was not documented). We consulted Opthalmology and her fundoscopic examination did not show signs of papilledema; however, she didhave uncorrected myopia. We initially managed her headaches with scheduled Tylenol and Tizanidine with PRN Toradol. However, minimal relief was achieved. We consulted Headache services who recommend starting IV Depakote 500 mg TID, IV magnesium 1 gm QD, and increasing her Gabapentin to 400 mg TID. DHE and Trpitans are contraindicated in the setting of ischemic stroke. We later stopped her Tylenolover concerns of medication overuse headaches. On discharge, she was instructed to take hydroxyzineand naproxen for migraine . She was scheduled for outpatient follow-up in the Headache Clinic of Botox Injections. The etiology of her stroke is cryptogenic; however, we suspect her strokes were related to either athrombosed aneurysm clip vs. Cardio embolic. Her TTE was significant for a LVEF of 45% with diffusehypokinesis, and a patent PFO. Cardiology was consulted and reccommended potential PFO closures andDuplex studies of her lower legs to rule out DVT. Her DVT Study was negative. A CTV Pelvis was ordered to rule out pelvic vein thrombosis which was also negative. She underwent a EVELIO on 09/12 which showed essentially the same results as the TTE. On discharge it was recommended that she obtain a Angiogram to assess for thrombosis of the aneurysm clip and to follow-up with Cardiology for PFO Closure. She was discharged on DAPT and Lisinopril 5 mg QD. It was also recommended that she start benefiber to reduce her triglyceride levels. Statin therapy was not started since her LDL < 70. She has follow-up with Vascular Neurology as an outpatient. #Cardiomyopathy Her TTE showed a LVEF of 45% with diffuse hypokinesis. The etiology of her cardiomyopathy was unclear but it was suspected to be related to her history of substance abuse vs. Untreated Hepatitis C. Cardiology was consulted and they performed a nonischemic cardiomyopathy workup which returned positive for Hepatitis C (which was known). Her Cardiac MRI showed no signs of infiltrates to suggest cardiomyopathy 2/2 Hepatitis C or Amyloid. She underwent a EVELIO on 09/11 which showed interatrial aneurysmwith PFO and mild reduced EF. She was discharge on Metoprolol-XL 50 mg QD and Lisinopril 5 mg QD with close follow-up with Cardiology. #Untreated Hepatitis C #Chronic Nausea and Vomiting On presentation, she had a documented history of untreated Hepatitis C. In the setting of chronic nausea and vomiting, it was unclear if her nausea was related to her headaches vs. Underlying Esophageal or Hepatic pathologies. Her LFTs on admission were normal and coagulation panel was normal as well suggesting her hepatic function was intact. We consulted GI who recommended symptomatic management with schedule Zofran and work-up with RUQ US and outpatient EGD. Her CTV Pelvis (which was performed for pelvic vein thrombosis) was able to capture the Abdominal RUQ. Per Radiology, no acute or chronic pathologies affecting the liver, gallbladder, and pancreas were seen on CT. As such, it was decided to pursue a RUQ US as an outpatient if there was still concern. It was suspected that her hyperemesis was related to chronic cannabis use vs. Functional disorder. Per GI, immediate treatment for her Hepatitis C was not indicated. She was discharged on Zofran with follow-up with GI. Patient was evaluated by rehabilitation services and deemed appropriate for home with VNA services. Operations & Procedures: ?? Cardiac MRI ?? EVELIO Consultations: 1. PT/OT/SL Diagnostic Tests & Neuroimaging: Date Study Results 09/07 ECG Normal sinus rhythm Incomplete right bundle branch block Borderline ECG 09/08 CXR IMPRESSION No acute lung disease 09/06 CTA and CTV Head IMPRESSION No central branch occlusion. Relative paucity of branches in the right frontal MCA territory could reflect distal branch occlusion, though the cut off is not identified. No evidence for dural venous sinus thrombosis. 09/07 Duplex Study for DVT, Bilat Legs Interpretation: ?? RIGHT: ??No evidence of lower extremity deep venous thrombosis. ?? LEFT: ??No evidence of lower extremity deep venous thrombosis. 09/10 Cardiac MRI IMPRESSION 1. Mildly reduced left ventricular systolic function at 41% with global hypokinesis 2. Mildly dilated right ventricle with normal right ventricular systolic function 3. No delayed enhancement to suggest previous infarct, myocarditis, or infiltrative disease of the left or right ventricles. 09/12 EVELIO SUMMARY: ?? 1. There is an aneurysmal inter-atrial septum present with a PFO noted by both color and agitated saline injections. 2. Global left ventricular systolic function is mildly reduced. Ejection fraction is estimated to be 50%. There is diffuse hypokinesis present. 3. The right ventricle is normal in size. Right ventricular global systolic function is normal. 09/06 TTE SUMMARY: ?? 1. The left ventricle is mildly dilated.(EDV [...] cardiac valves appear structurally and functionally normal. 09/11 CTV Pelvis FINDINGS: Minimal groundglass opacification at the pulmonary bases without focal nodularity. No pericardial or pleural effusion. The liver, gallbladder, pancreas, adrenal glands and the kidneys appear unremarkable. The spleen is slightly enlarged, measures 15 cm in length. The small and large bowel appear unremarkable. No retroperitoneal or mesenteric lymphadenopathy is seen. No ascites. No free intraperitoneal air. ?? Pelvis: Normal appearance of the uterus and the ovaries. Normal appearance of the urinary bladder. The abdominal aorta and is branches, the IVC and its tributaries, imaged portions of the femoral veins and arteries are uniformly opacified without filling defects to suggest presence of thrombus. ?? Review of bone windows demonstrates fixation hardware in the imaged portion of the lower thoracic spine, and and S-shaped thoracolumbar scoliosis. No suspicious focal osseous lesions detected. ?? IMPRESSION No evidence of pelvic venous thrombosis. Mild splenomegaly. Labs: Lipid Panel Lab Results Component Value Date CHLPL 130 09/06/2018 HDL 36 09/06/2018 CHOLHDL 3.6 09/06/2018 TRIG 173 09/06/2018 LDLCHOL 59 09/06/2018 LDLDIRECT 70 09/06/2018 Lab Results Component Value Date HA1C 5.3 09/06/2018 Last 3 wbc, hgb, hct plt Recent Labs 09/07/18 0744 09/06/18 1001 WBC 8.2 9.3 HGB 11.0* 10.3* HCT 34.0* 32.4* PLATELET 226 192 Last 3 Lytes Recent Labs 09/12/18 0625 09/07/18 0744 09/06/18 1001 NA 143 141 142 K 4.6 4.1 4.1 CL 105 104 106 CO2 29 28 26 BUN 17 17 23* CREATININE 1.13 0.77 0.77 Last 3 LFTs Recent Labs 09/12/18 0625 09/07/18 0744 09/06/18 1001 AST 22 25 16 ALT 37* 33* 28 ALKPHOS 110* 99 102 BILITOT 0.2 <0.2* <0.2* BILIDIR -- 0.1 <0.1 Last Ca, Mg, Phos Recent Labs 09/12/18 0625 09/07/18 0744 CALCIUM 8.9 8.5 PHOS -- 4.6* Last 3 TFT Recent Labs 09/08/18 0646 TSH 1.04 Last 3 Lipids Recent Labs 09/06/18 1002 09/06/18 1001 CHLPL 130 129 HDL 36 37 LDLCHOL 59 -- LDLDIRECT -- 70 TRIG 173 171 Last 3 HgbA1C Recent Labs 09/06/18 1001 HA1C 5.3 Last CRP, SEDRATE Recent Labs 09/11/18 0545 CRP 4.5 SEDRATE 25* Pending Studies and Lab Data: The patient will need the following 10 tests completed on: 09/04/2018 1. Urinalysis with reflex Culture 6. Hepatitis C RNA, quantitative, PCR 2. US Abdomen Limited - Hepatology Protocol 7. Cardiolipin Antibody Screen 3. Protein C activity 8. Protein S Activity 4. Beta-2 glycoprotein antibodies 9. Lupus Anticoagulant Panel 5. dRVVT 10. Silica Clotting Time Diagnosis: Authorizing Provider: Meagan Garza MD, Diane Harris MD Vital Signs at Discharge: BP: (!) 162/97, Heart Rate: (!) 106, Temp: 36.8 ??C (98.2 ??F), Resp: 14, BMI (Calculated): 42.98 Height: 157.5 cm (5' 2) (09/05/18 1428) Weight: 109.9 kg (242 lb 3.2 oz) (09/06/18 0947) Functional and Cognitive Status: Stable for Home with VNA Services Physical Exam at Discharge: Vitals: Temp: [36.4 ??C (97.5 ??F)-36.6 ??C (97.9 ??F)] Heart Rate: [64-74] Resp: [13-20] BP: (110-136)/(68-91) SpO2: [95 %-99 %] Heart Rate from SpO2: [53 bpm-74 bpm] Gen: NAD Neck: Supple, no meningismus CV: + S1, S2, RRR, no murmur Resp: CTA B/L Abd: nondistended Ext: No edema. No bony deformity Neuro Exam: MS: AAOx4, clear language, no dysarthria CN: PERRL, visual ching full Facial sensation decreased on left (ongoing of 6 months) no facial asymmetry Motor: Normal bulk and tone. 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 No pronator drift LE: 5/5 R, 4/5 L Hip flexion 5/5 R, 4/5 L Knee extension 5/5 R, 4/5 L Knee flexion 5/5 R, 4/5 L Foot dorsiflexion 5/5 R, 4/5 L Foot plantar flexion Sensation: Decreased to light touch over L left arm and leg Reflexes: DTRs 2+ R, 2+ L Biceps 2+ R, 2+ L Brachioradialis 2+ R, 2+ L Triceps 2+ R, 2+ L Patellar 2+ R, 2+ L Achilles tendon Toes - R mute, L mute Coordination: L dysmetria Discharge Conditions/Prognosis: STABLE Discharge to: Home Updated Allergies/ADRs: Allergies Allergen Reactions ??? Bee Pollen Anaphylaxis ??? Meperidine Hcl Anaphylaxis and Other (See Comments) flushing, respiratory trouble ??? [place] Other (See Comments) Flu like sx ??? Zoloft [Sertraline] Other (See Comments) Flu like sx Immunizations Given this Hospitalization: Immunization History Administered Date(s) Administered ??? Influenza PF, Split 01/13/2015 Discharge Medications: Your Medications New Medications Dose Details aspirin 81 mg Tbec Take 1 tablet by mouth daily. 81 mg Quantity: 30 tablet Refills: 3 clopidogrel 75 mg Tab Commonly known as: PLAVIX Take 1 tablet by mouth daily. 75 mg Quantity: 90 tablet Refills: 3 hydrOXYzine 25 mg Tab Commonly known as: ATARAX Take 1 tablet by mouth 3 times daily as needed (Use in combination with Naproxen for migraine ). 25 mg Quantity: 30 tablet Refills: 3 lisinopril 5 mg Tab Commonly known as: PRINIVIL;ZESTRIL Take 1 tablet by mouth daily. Start taking on: 09/13/2018 5 mg Quantity: 90 tablet Refills: 3 metoprolol succinate 25 mg Tablet sr Commonly known as: TOPROL-XL Take 2 tablets by mouth daily. 50 mg Quantity: 30 tablet Refills: 3 naproxen sodium 550 mg Tab Commonly known as: ANAPROX Take 1 tablet by mouth 3 times daily as needed (Use in combination with Hydroxyzine for migraine ). 550 mg Quantity: 60 tablet Refills: 3 nicotine 21 mg/24 hr Pt24 Commonly known as: NICODERM CQ Place 1 patch onto the skin daily. 1 patch Quantity: 28 patch Refills: 0 ondansetron 4 mg Tab Commonly known as: ZOFRAN Take 1 tablet by mouth every 8 hours. 4 mg Quantity: 20 tablet Refills: 0 pantoprazole 40 mg Tbec Commonly known as: PROTONIX Take 2 tablets by mouth daily. 80 mg Quantity: 90 tablet Refills: 3 tiZANidine 4 mg Tab Commonly known as: ZANAFLEX Take 1 tablet by mouth 3 times daily. 4 mg Quantity: 30 tablet Refills: 0 Continued medications, unchanged Dose Details acetaminophen 325 mg Tab Commonly known as: TYLENOL Take 2 tablets by mouth every 4 hours as needed for Pain (mild pain). 650 mg Quantity: 30 tablet Refills: 1 calcium carbonate 200 mg calcium (500 mg) Chew Commonly known as: Tums Take 2 tablets by mouth daily as needed. 2 tablet Refills: 0 docusate sodium 100 mg Cap Commonly known as: COLACE TAKE ONE CAPSULE BY MOUTH TWICE A DAY Refills: 1 FLOVENT HFA 220 mcg/actuation Hfaa Generic drug: fluticasone propionate Refills: 0 gabapentin 400 mg Cap Commonly known as: NEURONTIN Take 1 capsule by mouth 3 times daily. 400 mg Quantity: 84 capsule Refills: 3 PARoxetine 20 mg Tab Commonly known as: PAXIL Take 20 mg by mouth every morning. 20 mg Refills: 0 PROAIR HFA 90 mcg/actuation Hfaa Generic drug: albuterol Refills: 0 STOPPED Medications omeprazole 40 mg Cpdr Commonly known as: PriLOSEC Smoking Status at Discharge: Social History Tobacco Use Smoking Status Former Smoker ??? Packs/day: 0.00 ??? Years: 8.00 ??? Pack years: 0.00 ??? Types: Cigarettes Tobacco Comment quit apr 2015 SECONDARY STROKE PREVENTION: Preventative measure Antithrombotic agent for stroke prevention (aspirin,clopidogrel, ticagrelor, therapeutic anticoagulation etc...) was Initiated. If documented history of atrial fibrillation/flutter, anticoagulation therapy was not prescribed due to No history of A. Fib for stroke prevention. Cholesterol-lowering medication (including statins) was not prescribed due to LDL < 70 Smoking cessation: If patient smoked within the past year, smoking cessation counseling was not performed due to not actively smoking. Nicotine supplements were NA. Education: Stroke information packet provided to patient and/or family, which included personal modifiable risk factors for stroke, stroke warning signs and symptoms, how to activate EMS for stroke, and need for follow-up after discharge was performed. Modified [place] Score (MRS) on discharge Score Description 0 No symptoms at all 1 No significant disability despite symptoms; able to carry out all usual duties and activities 2 Slight disability; unable to carry out all previous activities, but able to look after own affairs without assistance 3 Moderate disability; requiring some help, but able to walk without assistance 4 Moderately severe disability; unable to walk without assistance 5 Severe disability; bedridden, incontinent and requiring constant nursing care and attention 6 Total Score: 2 NIH Stroke Scale at Discharge Evaluation: 1.a. Level of consciousness: 0-Alert 1-Not alert, but arousable with minimal stimulation 2-Not alert, requires repeat stimulation to attend 3-Coma 1.b. Ask patient the month and their age: 0-Answers both correctly 1-Answers one correctly 2-Both incorrect 1.c. Ask patient to open and close eyes: 0-Obeys both correctly 1-Obeys one correctly 2-Both incorrect 2. Best gaze (horizontal eye movement): 0-Normal 1-Partial gaze palsy 2-Forced deviation 3. Visual field testin-No visual field loss 1-Partial hemianopia 2-Complete hemianopia 3-Bilateral hemianopia (blind including cortical blindness) 4. Facial paresis (Ask patient to show teeth or raise eyebrows and close eyes tightly): 0-Normal symmetrical movement 1-Minor paralysis (flattened nasolabial fold, asymmetry on smiling) 2-Partial paralysis (total or near paralysis of lower face) 3-Complete paralysis of one or both sides (absence of facial movement in the upper and lower face) 5. Motor function right arm: 0-Normal (extends arm 90 degrees for 10 seconds without drift) 1-Drift 2-Some effort against gravity 3-No effort against gravity 4-No movement 9-Untestable (Joint fused or limb amputated) 5. Motor function- left arm: 0-Normal (extends arm 90 degrees for 10 seconds without drift) 1-Drift 2-Some effort against gravity 3-No effort against gravity 4-No movement 9-Untestable (Joint fused or limb amputated) 6. Motor function right le-Normal (extends leg 30 degrees for 5 seconds without drift) 1-Drift 2-Some effort against gravity 3-No effort against gravity 4-No movement 9-Untestable (Joint fused or limb amputated) 6. Motor function-left le-Normal (extends leg 30 degrees for 5 seconds without drift) 1-Drift 2-Some effort against gravity 3-No effort against gravity 4-No movement 9-Untestable (Joint fused or limb amputated) 7. Limb ataxia: 0-No ataxia 1-Present in one limb 2-Present in two limbs 8. Sensory (Use pinprick to test arms, legs, trunk and face compare side to side): 0-Normal 1-Mild to moderate decrease in sensation 2-Severe to total sensory loss 9. Best language (describe picture, name items, read sentences): 0-No aphasia 1-Mild to moderate aphasia 2-Severe aphasia 3-Mute 10. Dysarthria (read several words): 0-Normal articulation 1-Mild to moderate slurring of words 2-Near unintelligible or unable to speak 9-Intubated or other physical barrier 11. Extinction and inattention: 0-Normal 1-Inattention or extinction to bilateral simultaneous in one of the sensory modalities 2-Severe maribel-inattention or maribel-inattention to more than one modality TOTAL SCORE: 1 Instructions Given to Patient at Discharge: Patient Instructions Patient Instructions: You were admitted to the neurology service at [facility] Your Diagnosis: Stroke - Work close with your primary care provider (PCP) with monitoring your blood pressure, blood sugarand cholesterol. - Lifestyle modifications should include: taking all medications as prescribed, smoking cessation or staying away from others who are smoking to avoid second hand smoke, limiting alcohol intake, maintaining a normal/healthy weight, adhering to a healthy diet (low-fat, low-sodium, high intake of fresh fruits and vegetables, limiting red meat), and engaging in regular physical activity. For stroke: - Please continue ASA 81mg daily and Clopidogrel 75mg daily for stroke prevention - Please ensure follow up in the stroke neurology clinic post discharge - Referral placed for angiogram consideration outpatient to evaluate your prior aneurysm coil For Chronic Migraines - Please continue mag oxide daily, scheduled zofran, tizanidine 4mg three times daily - Please use a combination of Hydroxyzine 25 mg and Naproxen 550 mg at the onset of a migraine/headache for migraine/headache . - Will consider starting a MAB ab medication vs Botox for migraine prevention For newly diagnosed cardiomyopathy: - Please continue lisinopril 5mg daily and metoprolol 50mg daily for cardioprotection For chronic nausea/vomiting - Referral to GI placed for continued management with consideration of possible EDG outpatient ??? Call 911 or your local EMS if you have sudden weakness or numbness in your face or one of your limbs, slurred speech, loss of vision, or difficulty speaking. It is important to seek medical attention as soon as possible, as these symptoms could be related to a new stroke. ??? Diet: we recommend a heart healthy diet: low fat, low cholesterol, low concentrated sweets. ??? Activity Restrictions: As tolerated. Driving Restrictions: No driving until cleared by neurology clinic Diabetes Follow-up and Instructions: 1. Continue to monitor blood sugars with goal BG <120 and HAIC <7.0. 2. Know your cholesterol levels and the goal you are striving for. Your goal LDL is <100. 3. Continue to try eating healthy, which includes a low fat, low cholesterol, high fiber, no added sweets diet. 4. Exercising regularly is important. The goal for most people is 30 minutes of exercise, 3-4 timesper week. Check with your Health care Provider for specific guidelines. 5. Monitor blood pressure weekly: Goal for most patients is <130/70. Check with your Health CareProvider for specific guidelines. Continue to take all medications daily. 6. Remember to have an annual ophthalmic (eye) examination 7. Remember to have a quarterly foot examination done by your Health care provider. 8. Ask your Health care Provider about annual screening for urine micro-albumin. 9. Please plan quarterly follow-up visits for diabetes management with your Health care Provider. 10. Consider Diabetes Education in your community; [facility] offers a diabetes program called ???Jump Start?? . Call [facility] for more information. Know Your Numbers! Blood Pressure BP Readings from Last 3 Encounters: 09/12/18 (!) 123/94 02/07/18 (!) 158/96 11/25/15 124/72 HA1C Lab Results Component Value Date HA1C 5.3 09/06/2018 Cholesterol Lab Results Component Value Date CHLPL 130 09/06/2018 HDL 36 09/06/2018 CHOLHDL 3.6 09/06/2018 TRIG 173 09/06/2018 LDLCHOL 59 09/06/2018 LDLDIRECT 70 09/06/2018 Below is an explanation of each of the cholesterol test results. Total cholesterol: This test is best when below 200. It can be improved primarily by a low fat diet. HDL (good cholesterol): The higher the better. It is best when above 50. It is primarily genetically determined but can be increased with exercise. LDL (bad cholesterol): this test is best when below 130 (or below 100 if you have heart disease or below 70 if you have had a stroke or TIA). It can be lowered by a low fat diet. Triglycerides: This test is best when below 180. It can be lowered by a low fat diet, avoidance of sweets and weight loss. ??? Follow-up: ??? Neurology: You will have a follow-up appointment in the neurology clinic at [facility]. See below for the appointment time. If you do not have an appointment, you will be called with a time/date for this appointment. ??? Primary Care Provider: Please follow up with your Primary Care Provider within one to 2 weeks of discharge. For questions regarding this document or issues relating to this hospitalization on the Neurology Service, please contact the author(s) of this discharge summary through the [facility] Microsoft Access Developer . General Instructions None Future Appointments and Orders Future Appointments and Orders Future Appointments Provider Department Dept Phone 09/19/2018 3:00 PM Ayaan Castro MD Neurosurgery at [facility] Arrive at: Environmental Program Manager Area 3C [phone] 10/09/2018 9:00 AM Rangel Willams MD Cardiology at [facility] Arrive at: Environmental Program Manager Area 4A [phone] 10/12/2018 3:00 PM Brittney Arriaga APRN Neurology at [facility] Arrive at: Environmental Program Manager Area 3C [phone] 10/18/2018 8:00 AM Marah Mak MD Gastroenterology at [facility] Arrive at: Environmental Program Manager Area 4L [phone] Future Orders Complete By Expires Referral to Home Health - at DISCHARGE [[id number] CPT(R)] As directed Process Instructions: Scheduling Instructions: Comments: DOCUMENTATION FOR VNA SERVICES (INCLUDING THOSE PATIENTS WITH MEDICARE COVERAGE REQUIRING HOME VNA SERVICES AND/OR HOSPICE SERVICES) PATIENT'S LOCATION: Savannah Moore [address] [place] [address] Cell: Telephone Information: 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 Name: self In discussion with the attending physician, it is certified that this patient is under their care and that they, or a Nurse Practitioner,Clinical Nurse specialist or Physician Cdl Instructor who is working directly with them, had a face to face encounter that meets the physician face to face encounter requirements with this patient on 09/12/18 The encounter with the patient was in whole, or in part, for the following medical condition, whichis the primary reason for home health care services: BP monitoring, monitoring of neuro symptoms In discussion with the provider, it is certified that, based on their findings, the following services are medically necessary for home health services. To provide the following care/treatments with the clinical findings supporting the need for services as follows: HOME CARE ORDERS: RN ORDERS:Assess wound or incision, vital signs, cardiopulmonary status, nutrition, hydration, elimination, meds effectiveness and management; reinforce education re health issues HOME HEALTH CARE AGENCY: [facility]. PHONE: [phone] FAX: [phone] Start of care: 24-48 hours Patient is homebound due to the following: LE weakness or decreased balance and risk for falls Unsteady Gait, poor balance , requiring assistive devices and/or assistance of another Please note that any additional orders needs or changes will need to be obtained from this patient's PCP: Vicky Obrien APRN [address] / [facility] [id number] All VNA agencies which cover the area of patient's residence have been reviewed, either verbally lucinda writing, and patient/family have chosen the home health care agency noted Questions: [facility] Patient location post discharge: [address] [place] [address] [place], [place] What services are requested: Registered Nurse Start date: Responsible MD post discharge contact info: PCP Primary Care Provider: Vicky Obrien APRN [address] / [facility] [id number] Discharge References/Attachments Echocardiogram: Transesophageal: Post-op (Montserratian) documented in this encounter Discharge Instructions * Patient Instructions* Gabby Abel MD - 09/11/2018 1:49 PM EDT Images from the original note were not included. Patient Instructions: You were admitted to the neurology service at [facility] Your Diagnosis: Stroke - Work close with your primary care provider (PCP) with monitoring your blood pressure, blood sugarand cholesterol. - Lifestyle modifications should include: taking all medications as prescribed, smoking cessation or staying away from others who are smoking to avoid second hand smoke, limiting alcohol intake, maintaining a normal/healthy weight, adhering to a healthy diet (low-fat, low-sodium, high intake of fresh fruits and vegetables, limiting red meat), and engaging in regular physical activity. For stroke: - Please continue ASA 81mg daily and Clopidogrel 75mg daily for stroke prevention - Please ensure follow up in the stroke neurology clinic post discharge - Referral placed for angiogram consideration outpatient to evaluate your prior aneurysm coil For Chronic Migraines - Please continue mag oxide daily, scheduled zofran, tizanidine 4mg three times daily - Please use a combination of Hydroxyzine 25 mg and Naproxen 550 mg at the onset of a migraine/headache for migraine/headache . - Will consider starting a MAB ab medication vs Botox for migraine prevention For newly diagnosed cardiomyopathy: - Please continue lisinopril 5mg daily and metoprolol 50mg daily for cardioprotection For chronic nausea/vomiting - Referral to GI placed for continued management with consideration of possible EDG outpatient ??? Call 911 or your local EMS if you have sudden weakness or numbness in your face or one of your limbs, slurred speech, loss of vision, or difficulty speaking. It is important to seek medical attention as soon as possible, as these symptoms could be related to a new stroke. ??? Diet: we recommend a heart healthy diet: low fat, low cholesterol, low concentrated sweets. ??? Activity Restrictions: As tolerated. Driving Restrictions: No driving until cleared by neurology clinic Diabetes Follow-up and Instructions: 1. Continue to monitor blood sugars with goal BG <120 and HAIC <7.0. 2. Know your cholesterol levels and the goal you are striving for. Your goal LDL is <100. 3. Continue to try eating healthy, which includes a low fat, low cholesterol, high fiber, no added sweets diet. 4. Exercising regularly is important. The goal for most people is 30 minutes of exercise, 3-4 timesper week. Check with your Health care Provider for specific guidelines. 5. Monitor blood pressure weekly: Goal for most patients is <130/70. Check with your Health CareProvider for specific guidelines. Continue to take all medications daily. 6. Remember to have an annual ophthalmic (eye) examination 7. Remember to have a quarterly foot examination done by your Health care provider. 8. Ask your Health care Provider about annual screening for urine micro-albumin. 9. Please plan quarterly follow-up visits for diabetes management with your Health care Provider. 10. Consider Diabetes Education in your community; [facility] offers a diabetes program called ???Jump Start?? . Call [facility] for more information. Know Your Numbers! Blood Pressure BP Readings from Last 3 Encounters: 09/12/18 (!) 123/94 02/07/18 (!) 158/96 11/25/15 124/72 HA1C Lab Results Component Value Date HA1C 5.3 09/06/2018 Cholesterol Lab Results Component Value Date CHLPL 130 09/06/2018 HDL 36 09/06/2018 CHOLHDL 3.6 09/06/2018 TRIG 173 09/06/2018 LDLCHOL 59 09/06/2018 LDLDIRECT 70 09/06/2018 Below is an explanation of each of the cholesterol test results. Total cholesterol: This test is best when below 200. It can be improved primarily by a low fat diet. HDL (good cholesterol): The higher the better. It is best when above 50. It is primarily genetically determined but can be increased with exercise. LDL (bad cholesterol): this test is best when below 130 (or below 100 if you have heart disease or below 70 if you have had a stroke or TIA). It can be lowered by a low fat diet. Triglycerides: This test is best when below 180. It can be lowered by a low fat diet, avoidance of sweets and weight loss. ??? Follow-up: ??? Neurology: You will have a follow-up appointment in the neurology clinic at [facility]. See below for the appointment time. If you do not have an appointment, you will be called with a time/date for this appointment. ??? Primary Care Provider: Please follow up with your Primary Care Provider within one to 2 weeks of discharge. For questions regarding this document or issues relating to this hospitalization on the Neurology Service, please contact the author(s) of this discharge summary through the [facility] [employer] Access Developer . * Attachments The following attachments cannot be sent through Care Everywhere. * Echocardiogram: Transesophageal: Post-op (Montserratian) documented in this encounter Medications at Time of Discharge Medication Sig Dispensed Refills Start Date End Date docusate sodium (COLACE) 100 mg Capsule TAKE ONE CAPSULE BY MOUTH TWICE A DAY 1 10/31/2017 acetaminophen (TYLENOL) 325 mg Tablet Take 2 tablets by mouth every 4 hours as needed for Pain (mild pain). 30 tablet 1 05/12/2015 ondansetron (ZOFRAN) 4 mg Tablet Take 1 [...] migraine ). 30 tablet 3 09/12/2018 01/15/2019 metoprolol succinate (TOPROL-XL) 25 mg Tablet Sustained Release 24 hr Take 2 tablets by mouth daily. 30 tablet 3 09/12/2018 10/09/2018 naproxen sodium (ANAPROX) 550 mg Tablet Take [...] as of this encounter Progress Notes * Saud Sinclair, RN - 09/12/2018 7:36 PM EDT Savannah Moore discharged to friend's Home} by private car with her friend. All belongings sentwith patient. AKILA removed, skin free from pressure ulcers. Discharge instructions, medications, andfollow-up appointments reviewed, education provided on stroke signs and calling 911, [facility], all questions answered. VNA paperwork faxed. Patient instructed to call with concerns. * Juanita Diamond RN - 09/12/2018 3:22 PM EDT Received call from Naz Saldivar, Medicaid CM, concerned with patient's housing situation. Spoke withpatient regarding DC planning. States she is going to stay with her friend for 2-3 weeks while Nazis working on her housing. The address is [address] [place] [address] VNA order for nursing pended. informed. Patient states her friend, Genaro, is picking her up around 4:30-5:00 to transport her home. Called and left message with Naz to inform of plan. No additional CM needs identified. Juanita Diamond RN CCM Client Service Consultant # [id number] * Juanita Diamond RN - 09/12/2018 3:14 PM EDT The patient/phone representative has been provided a list of Home Health Agencies/DME vendors which servetheir preferred geographic area. A letter describing our affiliations was reviewed with them and they were educated about their right to choose where referrals are placed. Patient requests referral to [email or web address]. PHONE: [phone] FAX: [phone]. Expected date of discharge: today. Referral routed to the St[facility]wer for matching with agency/vendor and to provide any required information. * Shari Ruth RN - 09/12/2018 1:27 PM EDT Pt arrived to PACI, attached to monitors, alarms on, settings appropriate for pt. No nausea or painnoted. Pt had large urine amount on arrival to PACU. Pt lethargic but oriented. 1405 pt given pen and paper to draw with. Pt meets recovery criteria at 1415. Report called to ROBERT Urrutia. * Juanita Diamond RN - 09/12/2018 10:35 AM EDT Called and l/m for Naz Saldivar, Medicaid CM, , to inform of DC today with VNA services.Awaiting response. Juanita Diamond RN [facility] Client Service Consultant # [id number] * Taya Jimenez MD - 09/12/2018 8:22 AM EDT Neurology Progress Notes Patient name: Savannah Moore Date of : 1990 PCP: Vicky Obrien APRN ID: Savannah Moore is a 27 y.o. R handed F with a PMHx of migraines (age on onset 10), cerebral aneurysm s/p clipping and coiling (2014), asthma ,depression, PTSD, IVDA (abstinent for 17 months), untreated hep C who presented to OSH on 09/03 complaining of worsening headaches for the past 6 months, now with new multifocal infarcts. Interval History - Started IV Depacon 500 mg TID - Cardiac MRI: unrevealing - NPO since MN for EVELIO - Slept well overnight - Overnight SBP range: 110 -130 - No acute events overnight, vital signs stable, afebrile - Neurologic exam stable - Lupus Anticoagulation Panel: PENDING - Hep C Viral Load: PENDING - LFTs - mildly elevated ALT at 37 - CTV - negative for pelvic vein thrombosis. Mild splenomegaly - Planning for EVELIO today Scheduled Medications ??? valproate sodium 500 mg Intravenous Q8H ??? lisinopril 5 mg Oral Daily ??? gabapentin 400 mg Oral TID ??? magnesium sulfate 1 g Intravenous Daily ??? ondansetron 4 mg Intravenous Q8H SAMIR Or ??? ondansetron 4 mg Oral Q8H SAMIR ??? prochlorperazine 10 mg Intravenous Q6H ??? pantoprazole 80 mg Oral Daily ??? lidocaine 1 patch Transdermal Q24H And ??? lidocaine 1 patch Transdermal Q24H ??? tiZANidine 4 mg Oral TID ??? metoprolol 12.5 mg Oral Q6H SAMIR ??? clopidogrel 75 mg Oral Daily ??? cyanocobalamin (vitamin B-12) 1,000 mcg Oral Daily ??? acetaminophen 650 mg Oral Q6H ??? methadone (Methadose) oral liquid 120 mg Oral Daily ??? melatonin 6 mg Oral Nightly ??? fluticasone propionate 2 puff Inhalation BID ??? sodium chloride 0.9 % 5 mL Intravenous BID ??? senna-docusate 2 tablet Oral BID ??? polyethylene glycol (MIRALAX)oral powder 17 g Oral Daily ??? enoxaparin 40 mg Subcutaneous Nightly ??? aspirin 81 mg Oral Daily ??? nicotine 1 patch Transdermal Daily And ??? Patch Verification 1 patch Transdermal BID And ??? nicotine 1 patch Transdermal Daily PRN Medications lactulose, calcium carbonate, docusate sodium, albuterol, sodium chloride 0.9 %, lidocaine, magnesium hydroxide, bisacodyl, labetalol, enalaprilat Continuous Medications ??? sodium chloride 0.9% 1,000 mL (09/12/18 0500) Physical Exam: Vitals: Temp: [36.4 ??C (97.5 ??F)-36.6 ??C (97.9 ??F)] Heart Rate: [64-74] Resp: [13-20] BP: (110-136)/(68-91) SpO2: [95 %-99 %] Heart Rate from SpO2: [53 bpm-74 bpm] Gen: NAD Neck: Supple, no meningismus CV: + S1, S2, RRR, no murmur Resp: CTA B/L Abd: nondistended Ext: No edema. No bony deformity Neuro Exam: MS: AAOx4, clear language, no dysarthria CN: PERRL, visual ching full Facial sensation decreased on left (ongoing of 6 months) no facial asymmetry Motor: Normal bulk and tone. 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 No pronator drift LE: 5/5 R, 4/5 L Hip flexion 5/5 R, 4/5 L Knee extension 5/5 R, 4/5 L Knee flexion 5/5 R, 4/5 L Foot dorsiflexion 5/5 R, 4/5 L Foot plantar flexion Sensation: Decreased to light touch over L left arm and leg Reflexes: DTRs 2+ R, 2+ L Biceps 2+ R, 2+ L Brachioradialis 2+ R, 2+ L Triceps 2+ R, 2+ L Patellar 2+ R, 2+ L Achilles tendon Toes - R mute, L mute Coordination: L dysmetria Labs: Recent Results (from the past 24 hour(s)) Rapid Drug Screen, Urine (CAM Request) Result Value Ref Range CAM Conf Requested No CAM Requested See Comment Rapid Drug Screen w/o Confirmation, Urine Result Value Ref Range U Barbiturates Screen None Detected None Detected U Benzodiazepines Screen None Detected None Detected U Cocaine Screen None Detected None Detected U Methadone Metabolites Screen Presumptive Pos (A) None Detected U Opiate Screen None Detected None Detected U Cannabinoid Screen None Detected None Detected U Oxycodone Screen None Detected None Detected U Buprenorphine Screen None Detected None Detected U Fentanyl Screen None Detected None Detected U Tricyclics Screen None Detected None Detected U Ethanol Screen None Detected None Detected U Amphetamines Screen None Detected None Detected U Adulterants Screen None Detected None Detected Urinalysis with reflex Culture Result Value Ref Range Glucose UA Negative Negative mg/dL Protein UA Negative Negative mg/dL Bilirubin UA Negative Negative mg/dL Urobilinogen UA Normal Normal mg/dL pH UA 6.0 5.0 - 8.0 Blood UA Negative Negative mg/dL Ketones UA Negative Negative mg/dL Nitrite UA Negative Negative Leukocytes UA Negative Negative mcL Appearance UA Clear Clear Spec Calder UA 1.010 1.002 - 1.030 Color UA Straw Yellow Culture Reflexed No Comprehensive metabolic panel (non-fasting) Result Value Ref Range Glucose Lvl 78 65 - 199 mg/dL BUN 17 8 - 18 mg/dL Creatinine 1.13 0.70 - 1.20 mg/dL Sodium 143 135 - 145 mmol/L Potassium 4.6 3.5 - 5.0 mmol/L Chloride 105 98 - 107 mmol/L CO2 29 22 - 31 mmol/L Anion Gap 9 5 - 15 mmol/L Calcium 8.9 8.5 - 10.5 mg/dL Total Protein 6.6 6.1 - 8.0 gm/dL Albumin 3.5 3.2 - 5.2 gm/dL AST 22 0 - 30 unit/L ALT 37 (H) 0 - 30 unit/L Alk Phos 110 (H) 40 - 104 unit/L Total Bilirubin 0.2 0.2 - 1.3 mg/dL eGFR 66 >=60 mL/min/1.73 m?? eGFR 77 >=60 mL/min/1.73 m?? Diagnostic Tests and Imaging: Cardiac MRI (09/10) IMPRESSION 1. Mildly reduced left ventricular systolic function at 41% with global hypokinesis 2. Mildly dilated right ventricle with normal right ventricular systolic function 3. No delayed enhancement to suggest previous infarct, myocarditis, or infiltrative disease of the left or right ventricles. ?? CT Venogram Pelvis (09/11) FINDINGS: Minimal groundglass opacification at the pulmonary bases without focal nodularity. No pericardial or pleural effusion. The liver, gallbladder, pancreas, adrenal glands and the kidneys appear unremarkable. The spleen is slightly enlarged, measures 15 cm in length. The small and large bowel appear unremarkable. No retroperitoneal or mesenteric lymphadenopathy is seen. No ascites. No free intraperitoneal air. ?? Pelvis: Normal appearance of the uterus and the ovaries. Normal appearance of the urinary bladder. The abdominal aorta and is branches, the IVC and its tributaries, imaged portions of the femoral veins and arteries are uniformly opacified without filling defects to suggest presence of thrombus. ?? Review of bone windows demonstrates fixation hardware in the imaged portion of the lower thoracic spine, and and S-shaped thoracolumbar scoliosis. No suspicious focal osseous lesions detected. ?? IMPRESSION No evidence of pelvic venous thrombosis. Mild splenomegaly. Assessment and Plan: This is a 27 y.o. F with h/o prior aneurysm sp coiling in 2014, remote IVDU who is admitted for worsening CUADRA x6 mo, found with new multifocal infarcts over R cerebral hemisphere involving R parietal,posterior frontal and R occipitial lobe. Etiology not entirely clear at this point--concerned regarding coil thrombosis. As such, pt was escalated to DAPT. Currently with residual left sided weakness and numbness. For workup of cryptogenic stroke, CTA andCTV neg. This does not appear to be an IIH process per opthal. Found with pfo on TTE with negative duplex. Obtaining CTV Pelvis to assess for pelvic vein thrombosis as a potential cause for her stroke. Considering cerebral angio potentially to assess for thromboemboli originating from aneurysm clip. For her headache management, we discussed her case with Headache Neurology and decided to add on IVDepacon 500 mg TID, IV magnesium 1 gm QD, and increase her Gabapentin to 400 mg TID. These additions will be used in conjunction with her schedule Tizanidine. Her scheduled Tylenol was discontinued over concerns for medication overuse headache. If the event that her headaches persists, we may consider performing a SPG block or Botox injections. In the setting of her strokes, DHE and triptans are contraindicated given their increase risk for throbosis. Her newEF 40% is also unexplained ?ischemic vs non ischemic cardiomylopathy. Cards consulted. Undergoing Cardiac MRI today. EVELIO is still pending. Non ischemic cardiomyopathy work-up has been grossly negative with the exception of testing positive for Hep C which is known. Her cardiac MRI confirmed a reduced EF but no other pathologies were detected. We are awaiting a EVELIO. For hepatitis C, her CTV from yesterday was able to capture the Abdominal RUQ and no acute/chronic pathologies were noted. We are still awaiting her Hep C Viral load. For now, we are holding on starting Hep C treatment. She may need to undergo an EGD to better evaluate her intractable nausea and emesis. Plan #Worsening CUADRA x6mo # New R parietal, posterior frontal and R occipitial lobe. -Admit to neurology, floor level -Neuro check & vitals Q4hrs / Q4hrs -Permissive HTN, treat SBP >220 with prn labetalol, enalaprilat - Autoimmune labs sent - Continue DAPT -Telemetry -PT/OT #Intractable Nausea and Vomiting #? Esophageal dysmotility -Consult GI, recs appreciated -RUQ US -Abdominal XR -Miralax daily -Zofran Q8Hr -Consider a trial of thloaw16 mg Q8hr -Hep C Viral Load pending -Hep C Treatment to be started as -Chronic N/V likely due to cannabis hyperemesis syndrome vs opiate related gastroparesis (high doses of methadone) vs functional disorder. EGD as an outpatient #Reduced EF -LVEF 45% on TTE (09/06) -Consult cardiology; recs appreciated - Continue lisinpril 5mg QD - Continue metop 12.5 mg Q6 - Cardiac MRI - complete - EVELIO PENDING # Headaches - STOP scheduled tylenol 650mg Q6 - Tizanidine 4 mg TID - Schedule compazine Q6 - Consult to Headache, recs appreciated: - Depakote 500mg IV TID - Magnesium 1g IV daily - c/w gabapentin to 400mg TID - Consider starting hydroxyzine 25-50mg TID - Continue tizanidine 4mg TID - Can consider SPG block or Botox injections as an outpatient - Once patient no longer requires permissive hypertension, would initiate Candesartan 16mg daily for headache prevention - Triptans and DHE are contraindicated in the setting of ischemic stroke, CAD or severe PVD # Home meds - paroxetine 10mg QHs- will hold this for now - tums prn - colace 100mg QD prn - tylenol prn - albuterol Q6hrs prn - proair inh - omeprazole 20--> pantoprazole 20mg - gabapentin 100mg TID - methadone 120mg QD DVT ppx: lovenox NPO diet (Give Meds) Full Code Gabby Abel MD 09/12/2018 Vascular Neurology Pager [phone] Neurology Attending Attestation I evaluated the patient with the Neurology Residents during bedside rounds on 09/12/2018. I have reviewed the medical records and patient's history, as well as the resident???s and student's history and examination findings and I agree with the details as written. My neurologic examination confirms the resident???s findings. We formulated the assessment and plan after a detailed discussion, as documented. Taya Jimenez MD Vascular Neurology Antithrombotic stroke prevention DAPT Statin therapy Not currently indicated Blood Pressure goals/control Normotension Glycemic control [id number] Smoking/tobacco Social History Tobacco Use Smoking Status Former Smoker ??? Packs/day: 0.00 ??? Years: 8.00 ??? Pack years: 0.00 ??? Types: Cigarettes Tobacco Comment quit apr 2015 VTE ppx lovenox Fluids None Nutrition NPO diet (Give Meds) Discharge barriers (eg., guardianship, advance directive, insurance) Pending workup Mobility Up with assistance Last BM 09/11 LDAs Patient Lines/Drains/Airways Status Active LDAs Name: Placement date: Placement time: Site: Days: Peripheral IV Line - Single Lumen 09/05/182139 cephalic vein (lateral side of arm), left 22 gauge;1 in length;3/4 in length 09/05/182139 3 Peripheral IV Line - Single Lumen 09/06/182 median cubital vein (antecubital fossa), right 18 gauge;1 in length;3/4 in length 09/06/182 3 Review standing lab orders Reviewed Educational packet Given NIHSS (approx 36 hour post t-PA and intervention) N/A Telemetry reviewed / medically necessary Reviewed * Sukumar Lopez MD - 09/12/2018 7:25 AM EDT Inpatient Cardiology Consult Follow Up Note 09/12/2018 7:25 AM ID: Savannah Charli Moore is a 27 y.o. w/ PMH of AVNRT status post ablation, right paraophthalmic aneurysm status post coiling, IVDA complicated by hepatitis C infection (untreated) who was admitted to [facility] on 09/05/2018 for multifocal strokes, for whom cardiology was consulted for a new cardiomyopathy. Hospital day 7. 24 Hour Events/ Subjective: Still complains of mild left-sided weakness in both her arm and her leg. Denies any chest pain, dyspnea or palpitations. Denies any nausea vomiting or abdominal pain. Does note mild tenderness in her left shoulder when she moves it, otherwise no other significant symptoms Pertinent Medications: Scheduled Meds: ??? valproate sodium 500 mg Intravenous Q8H ??? lisinopril 5 mg Oral Daily ??? gabapentin 400 mg Oral TID ??? magnesium sulfate 1 g Intravenous Daily ??? ondansetron 4 mg Intravenous Q8H SAMIR Or ??? ondansetron 4 mg Oral Q8H SAMIR ??? prochlorperazine 10 mg Intravenous Q6H ??? pantoprazole 80 mg Oral Daily ??? lidocaine 1 patch Transdermal Q24H And ??? lidocaine 1 patch Transdermal Q24H ??? tiZANidine 4 mg Oral TID ??? metoprolol 12.5 mg Oral Q6H SAMIR ??? clopidogrel 75 mg Oral Daily ??? cyanocobalamin (vitamin B-12) 1,000 mcg Oral Daily ??? methadone (Methadose) oral liquid 120 mg Oral Daily ??? melatonin 6 mg Oral Nightly ??? fluticasone propionate 2 puff Inhalation BID ??? sodium chloride 0.9 % 5 mL Intravenous BID ??? senna-docusate 2 tablet Oral BID ??? polyethylene glycol (MIRALAX)oral powder 17 g Oral Daily ??? enoxaparin 40 mg Subcutaneous Nightly ??? aspirin 81 mg Oral Daily ??? nicotine 1 patch Transdermal Daily And ??? Patch Verification 1 patch Transdermal BID And ??? nicotine 1 patch Transdermal Daily Continuous Infusions: ??? sodium chloride 0.9% 1,000 mL (09/12/18 0500) PRN Meds:.lactulose, calcium carbonate, docusate sodium, albuterol, sodium chloride 0.9 %, lidocaine, magnesium hydroxide, bisacodyl, labetalol, enalaprilat I/O: Intake/Output Summary (Last 24 hours) at 09/12/2018 0725 Last data filed at 09/12/2018 0500 Gross per 24 hour Intake 1161 ml Output -- Net 1161 ml Physical Exam: Last value Range last 24 hrs Temperature Temp: 36.6 ??C (97.9 ??F) Temp: [36.4 ??C (97.5 ??F)-36.8 ??C (98.2 ??F)] Heart Rate Heart Rate: 64 Heart Rate: [64-65] Blood Pressure BP: 130/77 BP: (110-152)/(68-91) Respiratory Rate Resp: 18 Resp: [13-20] SpO2 SpO2: 96 % SpO2: [95 %-99 %] Physical Exam Gen:AAOX3, pleasant and in NAD HEENT: sclera anicteric, EOMI, no periorbital edema Neck: JVP @ 7 cm above the RA Pulm: Normal respiratory effort, Lungs CTAB CV: RRR, s1 s2 normal, no m/r/g Abd: soft, NT, ND, NABS throughout Ext: no edema, no clubbing, no cyanosis. Labs reviewed, of note: Recent Labs 09/07/18 0744 09/06/18 1001 WBC 8.2 9.3 HGB 11.0* 10.3* PLATELET 226 192 Recent Labs 09/12/18 0625 09/07/18 0744 09/06/18 1001 NA 143 141 142 K 4.6 4.1 4.1 CL 105 104 106 CO2 29 28 26 BUN 17 17 23* CREATININE 1.13 0.77 0.77 Recent Labs 09/12/18 0625 09/07/18 0744 09/06/18 1001 CALCIUM 8.9 8.5 8.9 MAGNESIUM -- 0.73 0.68* PHOS -- 4.6* 2.8 Recent Labs 09/12/18 0609/07/18 0744 09/06/18 1001 AST 22 25 16 ALT 37* 33* 28 ALKPHOS 110* 99 102 BILITOT 0.2 <0.2* <0.2* BILIDIR -- 0.1 <0.1 Thyroid Fxn: nml Iron Studies: ferritin 38, all nml B12 and Folate: normal Selenium and carnitine: not checked Connective Tissue Diseases: RF neg, ALFREDO neg Inflammatory Markers: ANCA neg, complements neg, crp 65 now 4.5, SSA and B neg SPEP, UPEP, Light Chains: not checked Hepatitis serologies: hep C + Herpes viruses (EBV, CMV, HSV1, HSV2, Parvovirus): not checked Adneovirus and Coxackie viruses: not checked Vitamin d 26 HIV neg Pertinent new radiology/diagnostic studies: none Cardiovascular studies: cMRI 08/2018 1. Mildly reduced left ventricular systolic function at 41% with global hypokinesis 2. Mildly dilated right ventricle with normal right ventricular systolic function 3. No delayed enhancement to suggest previous infarct, myocarditis, or infiltrative disease of the left or right ventricles. TTE 08/2018 ??1. Mildly reduced left ventricular systolic function at 41% with global hypokinesis 2. Mildly dilated right ventricle with normal right ventricular systolic function 3. No delayed enhancement to suggest previous infarct, myocarditis, or infiltrative disease of the left or right ventricles. ?? EKG Sinus bradycardia Otherwise normal ECG Assessment: Savannah Moore is a 27 y.o. w/ PMH of AVNRT status post ablation, right paraophthalmic aneurysm status post coiling, IVDA complicated by hepatitis C infection (untreated) who was admitted to [facility] 09/05/2018 for multifocal strokes, for whom cardiology was consulted for a new cardiomyopathy. CVA with PFO She has multiple competing etiologies for her strokes. These include thrombus formed on her aneurysm clips as well as paradoxical embolism through her newly diagnosed PFO. She is going to be started on dual antiplatelet therapy with aspirin and Plavix to prevent further possible thrombus formation from her clips. Her lower extremity duplex studies have shown no evidence of DVT in her legs. Discussion with her neurology team, the clips would not explain the stroke in her occipital lobe, and it is possible that paradoxical embolism is the true etiology. We had a brief discussion with the patient surrounding her values and preferences, and she does not wish to be on anticoagulation due to bleeding risks and unacceptable lifestyle changes that this would pose. I recommended that it would be reasonable for her to meet with one of our structural heart doctors that performs PFO closures to discuss the possibility of this. Nonischemic Cardiomyopathy Based on her age and normal perfusion on cardiac MRI, an ischemic etiology is highly unlikely. She has no evidence of late gadolinium enhancement to suggest myocarditis or an infiltrative process. This suggests that the hepatitis C is not the etiology behind her cardiomyopathy. Although her patternof wall motion abnormalities is not typical for a stress-induced cardiomyopathy, her biventricular systolic dysfunction is most likely due to an atypical form of Takotsubo. Even more reassuring is that her systolic function has improved already on EVELIO today. Recommend evidence-based heart failure regimen. She appears to be euvolemic on exam, no further diuresis is necessary. Plan: Defer anticoagulation at this time Outpatient clinic visit with structural cardiology for PFO closure Switch metoprolol tartrate to long acting succinate 50mg daily Continue lisinopril 5mg Ze Farmer MD Computer Technology Teacher, PGY6 -09/12/2018 7:25 AM Cardiology Staff - Addendum (follow-up) This patient was seen and examined with Dr. Farmer, storeroom keeper. I agree with his findingsand plan of care. Please refer to his note above for details. In brief, this is an obese 27 year old female who was admitted with a cryptogenic stroke that was thought to be embolic. She is not a completely healthy 27 year old as she is a smoker, has a history of IVDU, Hep C (untreated), brain aneurysm clips, and a history of ablation for AVNRT. #acute systolic heart failure, HF moderately reduced EF Her initial TTE was suggestive of mild global hypokinesis (40%). This may already be mildly improved per some of the EVELIO images obtained today (50%). Would favor continuation of OVI and BB. No clear etiology of her mild cardiomyopathy. The Hep C was just diagnosed and it is not clear as to whether t his is related or an incidental to the abnormal LVEF. The VEELIO demonstrated a PFO and we explained that this is a common finding in the general population(20-25%). However, it does open up the possibility of paradoxic emboli. She reported that she gets some chronic swelling in her legs - but the Doppler ultrasound was negative for any clot. #embolic CVA, possible paradoxical emboli and/or increased risk of thrombosis Might be worth a discussion with the thrombosis team (Racheal Mancilla MD) regarding risk of clot in this patient with respect to the Hep C and smoking status. We briefly discussed with her that there might be further discussion of anticoagulation vs a PFO closure device and she had a clear preference to be pro-active with a closure device in order to be able to take less medication. With regards to the PFO, typically neurology (Josh Morales MD) would speak to either Tesha Chavez or Rangel Willams for possible closure. We may discuss her case on Monday morning at an inter-disciplinary conference. Other details as noted above. * Taya Jimenez MD - 09/11/2018 6:58 AM EDT Neurology Progress Notes Patient name: Savannah Moore Date of : 1990 PCP: Vicky Obrien APRN ID: Savannah Moore is a 27 y.o. R handed F with a PMHx of migraines (age on onset 10), cerebral aneurysm s/p clipping and coiling (2014), asthma ,depression, PTSD, IVDA (abstinent for 17 months), untreated hep C who presented to OSH on 09/03 complaining of worsening headaches for the past 6 months, now with new multifocal infarcts. Interval History - s/p Cardiac MRI - Consulted GI and Headache -Ordered RUQ US -Checking HCV viral load -Scheduled Zofran 4 mg Q8Hr -Scheduled IV Magnesium 1 gm QD -Increased Gabapentin to 400 mg TID - Slept well overnight - Complaining of armpit pain which was tender to palpation; however, was showering later without complaints - Overnight SBP range: 124 - 155 - No acute events overnight, vital signs stable, afebrile - Neurologic exam stable - Planning for EVELIO and RUQ US Scheduled Medications ??? gabapentin 400 mg Oral TID ??? magnesium sulfate 1 g Intravenous Daily ??? ondansetron 4 mg Intravenous Q8H SAMIR Or ??? ondansetron 4 mg Oral Q8H SAMIR ??? prochlorperazine 10 mg Intravenous Q6H ??? pantoprazole 80 mg Oral Daily ??? lidocaine 1 patch Transdermal Q24H And ??? lidocaine 1 patch Transdermal Q24H ??? tiZANidine 4 mg Oral TID ??? metoprolol 12.5 mg Oral Q6H SAMIR ??? lisinopril 5 mg Oral Daily ??? clopidogrel 75 mg Oral Daily ??? magnesium oxide 400 mg Oral BID ??? cyanocobalamin (vitamin B-12) 1,000 mcg Oral Daily ??? acetaminophen 650 mg Oral Q6H ??? methadone (Methadose) oral liquid 120 mg Oral Daily ??? melatonin 6 mg Oral Nightly ??? fluticasone propionate 2 puff Inhalation BID ??? sodium chloride 0.9 % 5 mL Intravenous BID ??? senna-docusate 2 tablet Oral BID ??? polyethylene glycol (MIRALAX)oral powder 17 g Oral Daily ??? enoxaparin 40 mg Subcutaneous Nightly ??? aspirin 81 mg Oral Daily ??? nicotine 1 patch Transdermal Daily And ??? Patch Verification 1 patch Transdermal BID And ??? nicotine 1 patch Transdermal Daily PRN Medications calcium carbonate, docusate sodium, albuterol, sodium chloride 0.9 %, lidocaine, magnesium hydroxide, bisacodyl, labetalol, enalaprilat Continuous Medications ??? sodium chloride 0.9% 1,000 mL (09/11/18 0501) Physical Exam: Vitals: Temp: [36.2 ??C (97.2 ??F)-37.2 ??C (99 ??F)] Heart Rate: [53-78] Resp: [15-19] BP: (120-155)/(73-93) SpO2: [95 %-100 %] Heart Rate from SpO2: [68 bpm-78 bpm] Gen: NAD Neck: Supple, no meningismus CV: + S1, S2, RRR, no murmur Resp: CTA B/L Abd: nondistended Ext: No edema. No bony deformity Neuro Exam: MS: AAOx4, clear language, no dysarthria CN: PERRL, visual ching full Facial sensation decreased on left (ongoing of 6 months) no facial asymmetry Motor: Normal bulk and tone. 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 No pronator drift LE: 5/5 R, 4/5 L Hip flexion 5/5 R, 4/5 L Knee extension 5/5 R, 4/5 L Knee flexion 5/5 R, 4/5 L Foot dorsiflexion 5/5 R, 4/5 L Foot plantar flexion Sensation: Decreased to light touch over L left arm and leg Reflexes: DTRs 2+ R, 2+ L Biceps 2+ R, 2+ L Brachioradialis 2+ R, 2+ L Triceps 2+ R, 2+ L Patellar 2+ R, 2+ L Achilles tendon Toes - R mute, L mute Coordination: L dysmetria Labs: Recent Results (from the past 24 hour(s)) Sedimentation rate Result Value Ref Range Sed Rate 25 (H) 0 - 20 mm/hr Diagnostic Tests and Imaging: Cardiac MRI (09/10) IMPRESSION 1. Mildly reduced left ventricular systolic function at 41% with global hypokinesis 2. Mildly dilated right ventricle with normal right ventricular systolic function 3. No delayed enhancement to suggest previous infarct, myocarditis, or infiltrative disease of the left or right ventricles. ?? Assessment and Plan: This is a 27 y.o. F with h/o prior aneurysm sp coiling in 2014, remote IVDU who is admitted for worsening CUADRA x6 mo, found with new multifocal infarcts over R cerebral hemisphere involving R parietal,posterior frontal and R occipitial lobe. Etiology not entirely clear at this point--concerned regarding coil thrombosis. As such, pt was escalated to DAPT. Currently with residual left sided weakness and numbness. For workup of cryptogenic stroke, CTA andCTV neg. This does not appear to be an IIH process per opthal. Found with pfo on TTE with negative duplex. Obtaining CTV Pelvis to assess for pelvic vein thrombosis as a potential cause for her stroke. Considering cerebral angio potentially to assess for thromboemboli originating from aneurysm clip. For her headache management, we discussed her case with Headache Neurology and decided to add on IVDepacon 500 mg TID, IV magnesium 1 gm QD, and increase her Gabapentin to 400 mg TID. These additions will be used in conjunction with her schedule Tylenol and Tizanidine. If the event that her headaches persists, we may consider performing a SPG block. In the setting of her strokes, DHE and triptans are contraindicated given their increase risk for throbosis. Her newEF 40% is also unexplained ?ischemic vs non ischemic cardiomylopathy. Cards consulted. Undergoing Cardiac MRI today. EVELIO is still pending. Non ischemic cardiomyopathy work-up has been grossly negative with the exception of testing positive for Hep C which is known. Her cardiac MRI confirmed a reduced EF but no other pathologies were detected. We are awaiting a EVELIO. For hepatitis C, we are obtaining a RUE US and Hep C Viral load to assess her disease burden. For now, we are holding on starting Hep C treatment. She may need to undergo an EGD to better evaluate her intractable nausea and emesis. Plan #Worsening CUADRA x6mo # New R parietal, posterior frontal and R occipitial lobe. -Admit to neurology, floor level -Neuro check & vitals Q4hrs / Q4hrs -Permissive HTN, treat SBP >220 with prn labetalol, enalaprilat - Autoimmune labs sent - Continue DAPT -Telemetry -PT/OT #Intractable Nausea and Vomiting #? Esophageal dysmotility -Consult GI, recs appreciated -RUQ US -Abdominal XR -Miralax daily -Zofran Q8Hr -Consider a trial of [id number] mg Q8hr -Hep C Viral Load pending -Hep C Treatment to be started as -Chronic N/V likely due to cannabis hyperemesis syndrome vs opiate related gastroparesis (high doses of methadone) vs functional disorder. EGD as an outpatient #Reduced EF -LVEF 45% on TTE (09/06) -Consult cardiology; recs appreciated - Continue lisinpril 5mg QD - Continue metop 12.5 mg Q6 - Cardiac MRI - complete - EVELIO PENDING # Headaches - Scheduled tylenol 650mg Q6 - Tizanidine 4 mg TID - occipital nerve block--pt had this previously in the past, did not help - Schedule compazine Q6 - Consult to Headache, recs appreciated: - Depakote 500mg IV TID - Magnesium 1g IV daily - Increase gabapentin to 400mg TID - Consider starting hydroxyzine 25-50mg TID - Continue tizanidine 4mg TID - Can consider SPG block tomorrow - Once patient no longer requires permissive hypertension, would initiate Candesartan 16mg daily for headache prevention - Triptans and DHE are contraindicated in the setting of ischemic stroke, CAD or severe PVD # Home meds - paroxetine 10mg QHs- will hold this for now - tums prn - colace 100mg QD prn - tylenol prn - albuterol Q6hrs prn - proair inh - omeprazole 20--> pantoprazole 20mg - gabapentin 100mg TID - methadone 120mg QD DVT ppx: lovenox Regular diet Full Code Gabby Abel MD 09/11/2018 Vascular Neurology Pager [phone] Neurology Attending Attestation I evaluated the patient with the Neurology Residents during bedside rounds on 09/11/2018. I have reviewed the medical records and patient's history, as well as the resident???s and student's history and examination findings and I agree with the details as written. My neurologic examination confirms the resident???s findings. We formulated the assessment and plan after a detailed discussion, as documented. Taya Jimenez MD Vascular Neurology Antithrombotic stroke prevention DAPT Statin therapy Not currently indicated Blood Pressure goals/control Normotension Glycemic control [id number] Smoking/tobacco Social History Tobacco Use Smoking Status Former Smoker ??? Packs/day: 0.00 ??? Years: 8.00 ??? Pack years: 0.00 ??? Types: Cigarettes Tobacco Comment quit apr 2015 VTE ppx lovenox Fluids None Nutrition Regular diet Discharge barriers (eg., guardianship, advance directive, insurance) Pending workup Mobility Up with assistance Last BM 09/10 LDAs Patient Lines/Drains/Airways Status Active LDAs Name: Placement date: Placement time: Site: Days: Peripheral IV Line - Single Lumen 09/05/182139 cephalic vein (lateral side of arm), left 22 gauge;1 in length;3/4 in length 09/05/180 3 Peripheral IV Line - Single Lumen 09/06/18 0452 median cubital vein (antecubital fossa), right 18 gauge;1 in length;3/4 in length 09/06/18 0452 3 Review standing lab orders Reviewed Educational packet Given NIHSS (approx 36 hour post t-PA and intervention) N/A Telemetry reviewed / medically necessary Reviewed * Johnny Lopez MSW - 09/10/2018 4:31 PM EDT Patient in with a provider delaying IA * Taya Jimenez MD - 09/10/2018 7:43 AM EDT Neurology Progress Notes Patient name: Savannah Moore Date of : 1990 PCP: Vicky Obrien APRN ID: Savannah Moore is a 27 y.o. R handed F with a PMHx of migraines (age on onset 10), cerebral aneurysm s/p clipping and coiling (2014), asthma ,depression, PTSD, IVDA (abstinent for 17 months), untreated hep C who presented to OSH on 09/03 complaining of worsening headaches for the past 6 months, now with new multifocal infarcts. Interval History - NPO since [place] for [facility] and Cardiac MRI. On IVFM overnight -Increased Pantoprazole to 80 mg for GI upset - Scheduled compazine Q6Hr for nausea. - On Scheduled Tylenol and Tizanidine as well as PRN Toradol (required 1 PRN overnight and 1 PRN this morning) - Slept well overnight - Overnight SBP range: 131 - 151 - No acute events overnight, vital signs stable, afebrile - Neurologic exam stable - Planning for [facility] and Cardiac MRI - Planning on Consulting GI for ongoing nausea and hepatitis C mangement Scheduled Medications ??? prochlorperazine 10 mg Intravenous Q6H ??? pantoprazole 80 mg Oral Daily ??? lidocaine 1 patch Transdermal Q24H And ??? lidocaine 1 patch Transdermal Q24H ??? tiZANidine 4 mg Oral TID ??? metoprolol 12.5 mg Oral Q6H SAMIR ??? lisinopril 5 mg Oral Daily ??? clopidogrel 75 mg Oral Daily ??? magnesium oxide 400 mg Oral BID ??? cyanocobalamin (vitamin B-12) 1,000 mcg Oral Daily ??? acetaminophen 650 mg Oral Q6H ??? methadone (Methadose) oral liquid 120 mg Oral Daily ??? melatonin 6 mg Oral Nightly ??? fluticasone propionate 2 puff Inhalation BID ??? gabapentin 100 mg Oral TID ??? sodium chloride 0.9 % 5 mL Intravenous BID ??? senna-docusate 2 tablet Oral BID ??? polyethylene glycol (MIRALAX)oral powder 17 g Oral Daily ??? enoxaparin 40 mg Subcutaneous Nightly ??? aspirin 81 mg Oral Daily ??? nicotine 1 patch Transdermal Daily And ??? Patch Verification 1 patch Transdermal BID And ??? nicotine 1 patch Transdermal Daily PRN Medications calcium carbonate, ondansetron OR ondansetron, docusate sodium, albuterol, sodium chloride 0.9 %, lidocaine, magnesium hydroxide, bisacodyl, labetalol, enalaprilat, ketorolac Continuous Medications ??? sodium chloride 0.9% 1,000 mL (09/10/18 9962) Physical Exam: Vitals: Temp: [36 ??C (96.8 ??F)-37.3 ??C (99.1 ??F)] Heart Rate: [55-64] Resp: [16-18] BP: (131-157)/(67-91) SpO2: [95 %-99 %] Heart Rate from SpO2: [58 bpm-64 bpm] Gen: NAD Neck: Supple, no meningismus CV: + S1, S2, RRR, no murmur Resp: CTA B/L Abd: nondistended Ext: No edema. No bony deformity Neuro Exam: MS: AAOx4, clear language, no dysarthria CN: PERRL, visual ching full Facial sensation decreased on left (ongoing of 6 months) no facial asymmetry Motor: Normal bulk and tone. 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 No pronator drift LE: 5/5 R, 4/5 L Hip flexion 5/5 R, 4/5 L Knee extension 5/5 R, 4/5 L Knee flexion 5/5 R, 4/5 L Foot dorsiflexion 5/5 R, 4/5 L Foot plantar flexion Sensation: Decreased to light touch over L left arm and leg Reflexes: DTRs 2+ R, 2+ L Biceps 2+ R, 2+ L Brachioradialis 2+ R, 2+ L Triceps 2+ R, 2+ L Patellar 2+ R, 2+ L Achilles tendon Toes - R mute, L mute Coordination: L dysmetria Labs: No results found for this or any previous visit (from the past 24 hour(s)). Diagnostic Tests and Imaging: None new Assessment and Plan: This is a 27 y.o. F with h/o prior aneurysm sp coiling in 2014, remote IVDU who is admitted for worsening CUADRA x6 mo, found with new multifocal infarcts over R cerebral hemisphere involving R parietal,posterior frontal and R occipitial lobe. Etiology not entirely clear at this point--concerned regarding coil thrombosis. As such, pt was escalated to DAPT. Currently with residual left sided weakness and numbness. For workup of cryptogenic stroke, CTA andCTV neg. This does not appear to be an IIH process per opthal. Found with pfo on TTE with negative duplex. Considering cerebral agio potentially. For symptomatic treatment of CUADRA, continue scheduled tylenol, tizanidine 4tid, prn mag. Will schedule compazine Q6. Etiology of CUADRA is not entirely clearly since it appears her headaches pre-dated her acute worsening of her headaches by 6 months. Consider starting DHE Protocol once cardiac testing iscomplete. We will consult CUADRA for recommendations in further work-up and management options. Her newEF 40% is also unexplained ?ischemic vs non ischemic cardiomylopathy. Cards consulted. Undergoing Cardiac MRI today. EVELIO is still pending. Non ischemic cardiomyopathy work-up has been grossly negative with the exception of testing positive for Hep C which is known. Pt complaining of severe nausea, emesis. Will increase pantoprazole to 80mg, we will consult GI foresophageal sphincter dysfunction. Plan #Worsening CUADRA x6mo # New R parietal, posterior frontal and R occipitial lobe. -Admit to neurology, floor level -Neuro check & vitals Q4hrs / Q4hrs -Permissive HTN, treat SBP >220 with prn labetalol, enalaprilat - Autoimmune labs sent - Continue DAPT -Telemetry -PT/OT #Intractable Nausea and Vomiting #? Esophageal dysmotility -Consult GI, recs appreciated #Reduced EF -LVEF 45% on TTE (09/06) -Consult cardiology; recs appreciated - Continue lisinpril 5mg QD - Continue metop 12.5 mg Q6 - Cardiac MRI mon- NPO at [place] - [facility] PENDING # Headaches - Scheduled tylenol 650mg Q6 - Tizanidine 4 mg TID - occipital nerve block--pt had this previously in the past, did not help - Schedule compazine Q6 - Consult to CUADRA # Home meds - paroxetine 10mg QHs- will hold this for now - tums prn - colace 100mg QD prn - tylenol prn - albuterol Q6hrs prn - proair inh - omeprazole 20--> pantoprazole 20mg - gabapentin 100mg TID - methadone 120mg QD DVT ppx: lovenox Full Code Gabby Abel MD 09/10/2018 Vascular Neurology Pager [phone] Neurology Attending Attestation I evaluated the patient with the Neurology Residents during bedside rounds on 09/10/2018. I have reviewed the medical records and patient's history, as well as the resident???s and student's history and examination findings and I agree with the details as written. My neurologic examination confirms the resident???s findings. We formulated the assessment and plan after a detailed discussion, as documented. Taya Jimenez MD Vascular Neurology Antithrombotic stroke prevention DAPT Statin therapy Not currently indicated Blood Pressure goals/control Normotension Glycemic control Uyc1o-5.3 Smoking/tobacco Social History Tobacco Use Smoking Status Former Smoker ??? Packs/day: 0.00 ??? Years: 8.00 ??? Pack years: 0.00 ??? Types: Cigarettes Tobacco Comment quit apr 2015 VTE ppx lovenox Fluids None Nutrition NPO diet (Give Meds) Discharge barriers (eg., guardianship, advance directive, insurance) Pending workup Mobility Up with assistance Last BM 09/08 LDAs Patient Lines/Drains/Airways Status Active LDAs Name: Placement date: Placement time: Site: Days: Peripheral IV Line - Single Lumen 09/05/182139 cephalic vein (lateral side of arm), left 22 gauge;1 in length;3/4 in length 09/05/182139 3 Peripheral IV Line - Single Lumen 09/06/18451 median cubital vein (antecubital fossa), right 18 gauge;1 in length;3/4 in length 09/06/18 0452 3 Review standing lab orders Reviewed Educational packet Given NIHSS (approx 36 hour post t-PA and intervention) N/A Telemetry reviewed / medically necessary Reviewed * Esme Burton RN - 09/09/2018 2:52 PM EDT Pt transferred to [facility] for privacy. All belongings transferred with her. Pt satisfied. * Jasbir Obrien RN - 09/09/2018 11:57 AM EDT Pt is on NS @ 100 Discussed with pt that part of the reason she feels dehydrated is the amount of soft drinks she is drinking Pt had 800 mL in Coke between 0800 and 1200 Pt disagrees and says her MD told to drink as much as she wants in order to stop her caffeine head aches. * Diane Harris MD - 09/09/2018 7:21 AM EDT Neurology Progress Notes Patient name: Savannah Moore Date of : 1990 PCP: Vicky Obrien APRN ID: Savannah Moore is a 27 y.o. R handed F with a PMHx of migraines (age on onset 10), cerebral aneurysm s/p clipping and coiling (2014), asthma ,depression, PTSD, IVDA (abstinent for 17 months), untreated hep C who presented to OSH on 09/03 complaining of worsening headaches for the past 6 months, now with new multifocal infarcts. Interval History - Continued on DAPT - Scheduled tizanidine TID yest for CUADRA (CUADRA was 8/10 during entire day) - Overnight, cc L shoulder pain and nausea, ECG sinus jackson - Continued on metop and lisinopril with pending cardiac MRI/EVELIO mon. - This am, still with 8/10 CUADRA and nausea Scheduled Medications ??? prochlorperazine 10 mg Intravenous Q6H ??? [START ON 09/10/2018] pantoprazole 80 mg Oral Daily ??? lidocaine 1 patch Transdermal Q24H And ??? lidocaine 1 patch Transdermal Q24H ??? tiZANidine 4 mg Oral TID ??? metoprolol 12.5 mg Oral Q6H SAMIR ??? lisinopril 5 mg Oral Daily ??? clopidogrel 75 mg Oral Daily ??? magnesium oxide 400 mg Oral BID ??? cyanocobalamin (vitamin B-12) 1,000 mcg Oral Daily ??? acetaminophen 650 mg Oral Q6H ??? methadone (Methadose) oral liquid 120 mg Oral Daily ??? melatonin 6 mg Oral Nightly ??? fluticasone propionate 2 puff Inhalation BID ??? gabapentin 100 mg Oral TID ??? sodium chloride 0.9 % 5 mL Intravenous BID ??? senna-docusate 2 tablet Oral BID ??? polyethylene glycol (MIRALAX)oral powder 17 g Oral Daily ??? enoxaparin 40 mg Subcutaneous Nightly ??? aspirin 81 mg Oral Daily ??? nicotine 1 patch Transdermal Daily And ??? Patch Verification 1 patch Transdermal BID And ??? nicotine 1 patch Transdermal Daily PRN Medications calcium carbonate, ondansetron OR ondansetron, docusate sodium, albuterol, sodium chloride 0.9 %, lidocaine, magnesium hydroxide, bisacodyl, labetalol, enalaprilat, ketorolac Continuous Medications ??? sodium chloride 0.9% 1,000 mL (09/08/18 2306) Physical Exam: Vitals: Temp: [36.2 ??C (97.2 ??F)-36.9 ??C (98.4 ??F)] Heart Rate: [55-60] Resp: [16-18] BP: (151-159)/(77-98) SpO2: [94 %-98 %] Heart Rate from SpO2: [58 bpm-64 bpm] Gen: NAD Neck: Supple, no meningismus CV: + S1, S2, RRR, no murmur Resp: CTA B/L Abd: nondistended Ext: No edema. No bony deformity Neuro Exam: MS: AAOx4, clear language, no dysarthria CN: PERRL, visual ching full Facial sensation decreased on left (ongoing of 6 months) no facial asymmetry Motor: Normal bulk and tone. 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 No pronator drift LE: 5/5 R, 4/5 L Hip flexion 5/5 R, 4/5 L Knee extension 5/5 R, 4/5 L Knee flexion 5/5 R, 4/5 L Foot dorsiflexion 5/5 R, 4/5 L Foot plantar flexion Sensation: Decreased to light touch over L left arm and leg Reflexes: DTRs 2+ R, 2+ L Biceps 2+ R, 2+ L Brachioradialis 2+ R, 2+ L Triceps 2+ R, 2+ L Patellar 2+ R, 2+ L Achilles tendon Toes - R mute, L mute Coordination: L dysmetria Labs: No results found for this or any previous visit (from the past 24 hour(s)). Diagnostic Tests and Imaging: None new Assessment and Plan: This is a 27 y.o. F with h/o prior aneurysm sp coiling in 2014, remote IVDU who is admitted for worsening CUADRA x6 mo, found with new multifocal infarcts over R cerebral hemisphere involving R parietal,posterior frontal and R occipitial lobe. Etiology not entirely clear at this point--concerned regarding coil thrombosis. As such, pt was escalated to DAPT. Currently with residual left sided weakness and numbness. For workup of cryptogenic stroke, CTA andCTV neg. This does not appear to be an IIH process per opthal. Found with pfo on TTE with negative duplex. Considering cerebral agio potentially. For symptomatic treatment of CUADRA, continue scheduled tylenol, tizanidine 4tid, prn mag. Will schedule compazine Q6. Her newEF 40% is also unexplained ?ischemic vs non ischemic cardiomylopathy. Cards consulted, pending cardiac MRI, [facility] mon. NPO [place]. Pt complaining of severe nausea, emesis. Will increase pantoprazole to 80mg, consider GI consult esophageal sphincter dysfunction. Plan #Worsening CUADRA x6mo # New R parietal, posterior frontal and R occipitial lobe. -Admit to neurology, floor level -Neuro check & vitals Q4hrs / Q4hrs -Permissive HTN, treat SBP >220 with prn labetalol, enalaprilat - Autoimmune labs sent - Continue DAPT -Telemetry -PT/OT #Reduced EF -LVEF 45% on TTE (09/06) -Consult cardiology; recs appreciated - Continue lisinpril 5mg QD - Continue metop 12.5 mg Q6 - Cardiac MRI mon- NPO at [place] - [facility] # Headaches - Scheduled tylenol 650mg Q6 - Tizanidine 4 mg TID - occipital nerve block--pt had this previously in the past, did not help - Schedule compazine Q6 # Home meds - paroxetine 10mg QHs- will hold this for now - tums prn - colace 100mg QD prn - tylenol prn - albuterol Q6hrs prn - proair inh - omeprazole 20--> pantoprazole 20mg - gabapentin 100mg TID - methadone 120mg QD DVT ppx: lovenox Full code Diane Harris MD 09/09/2018 Vascular Neurology Pager [phone] Antithrombotic stroke prevention DAPT Statin therapy Not currently indicated Blood Pressure goals/control Normotension Glycemic control Nzt5o-1.3 Smoking/tobacco Social History Tobacco Use Smoking Status Former Smoker ??? Packs/day: 0.00 ??? Years: 8.00 ??? Pack years: 0.00 ??? Types: Cigarettes Tobacco Comment quit apr 2015 VTE ppx lovenox Fluids None Nutrition Regular diet NPO diet (Give Meds) Discharge barriers (eg., guardianship, advance directive, insurance) Pending workup Mobility Up with assistance Last BM 09/08 LDAs Patient Lines/Drains/Airways Status Active LDAs Name: Placement date: Placement time: Site: Days: Peripheral IV Line - Single Lumen 09/05/182139 cephalic vein (lateral side of arm), left 22 gauge;1 in length;3/4 in length 09/05/182139 3 Peripheral IV Line - Single Lumen 09/06/18451 median cubital vein (antecubital fossa), right 18 gauge;1 in length;3/4 in length 09/06/18451 3 Review standing lab orders Reviewed Educational packet Given NIHSS (approx 36 hour post t-PA and intervention) N/A Telemetry reviewed / medically necessary Reviewed Associated attestation - Meagan Garza MD - 09/09/2018 7:25 PM EDT Neurology Staff Note I have reviewed the resident's history during the visit and I agree with the details as written. Myphysical examination confirms the resident's findings. The assessment and plan were formulated in discussion with me at the time of the visit and I agree with them as documented. Looks comfortable. Alert and speech is clear. Explained medication changes. Will consider ONBs. Would consider CAROLE and consider conv angiogram once cardiac testing is clarified. * Amanda Alvarez RN - 09/08/2018 6:55 AM EDT Patient c/o cp radiating around should, sob, nausea. Stated that the other hospital put her on O2 at night and was upset that we had not. VS stable and o2 at 100%. She had told no one of these complaints prior but stated she has had this for two days. Notified MD and stat EKG ordered. Results sinusbrady otherwise normal. MD notified and tums ordered. * Gabby Abel MD - 09/08/2018 6:44 AM EDT Neurology Progress Notes Patient name: Savannah Moore Date of : 1990 PCP: Vicky Obrien APRN ID: Savannah Moore is a 27 y.o. R handed F with a PMHx of migraines (age on onset 10), cerebral aneurysm s/p clipping and coiling (2014), asthma ,depression, PTSD, IVDA (abstinent for 17 months), hepatitis C (untreated) who presented to OSH on 09/03 complaining of worsening headaches for the past 6 months, now with new multifocal infarcts. Interval History - Loaded with Plavix 300 mg QD and started on Plavix 75 QD. - TTE showed PFO, LVEF of 45% and diffuse hypokinesis. - Consulted Cards. Planning for [facility]IO and Cardiac MRI. Ordered labs to work up non ischemic cardiomyopathy - started on Metoprolol 12.5 mg Q6Hr and Lisinopril 5 mg QD - Saw ophthalmology yesterday. No signs of IIH - SBP Goal - permissive HTN < 220. Overnight SBP 131 - 148. No PRN Given - Complaining of CUADRA. Set alarm to when Toradol is due. - No acute events overnight, vital signs stable, afebrile - Neurologic exam stable - DVT - negative Scheduled Medications ??? metoprolol 12.5 mg Oral Q6H SAMIR ??? lisinopril 5 mg Oral Daily ??? clopidogrel 75 mg Oral Daily ??? magnesium oxide 400 mg Oral BID ??? cyanocobalamin (vitamin B-12) 1,000 mcg Oral Daily ??? acetaminophen 650 mg Oral Q6H ??? methadone (Methadose) oral liquid 120 mg Oral Daily ??? melatonin 6 mg Oral Nightly ??? fluticasone propionate 2 puff Inhalation BID ??? gabapentin 100 mg Oral TID ??? pantoprazole 20 mg Oral Daily ??? sodium chloride 0.9 % 5 mL Intravenous BID ??? senna-docusate 2 tablet Oral BID ??? polyethylene glycol (MIRALAX)oral powder 17 g Oral Daily ??? enoxaparin 40 mg Subcutaneous Nightly ??? aspirin 81 mg Oral Daily ??? nicotine 1 patch Transdermal Daily And ??? Patch Verification 1 patch Transdermal BID And ??? nicotine 1 patch Transdermal Daily PRN Medications calcium carbonate, ondansetron OR ondansetron, docusate sodium, albuterol, sodium chloride 0.9 %, lidocaine, magnesium hydroxide, bisacodyl, labetalol, enalaprilat, ketorolac Continuous Medications ??? sodium chloride 0.9% 1,000 mL (09/07/18 2100) Physical Exam: Vitals: Temp: [36.5 ??C (97.7 ??F)-36.8 ??C (98.2 ??F)] Heart Rate: [70-84] Resp: [16-18] BP: (131-151)/(74-103) SpO2: [97 %-100 %] Heart Rate from SpO2: -- Gen: NAD Neck: Supple, occipital tenderness, no meningismus CV: + S1, S2, RRR, no murmur Resp: CTA B/L Abd: nondistended Ext: No edema. No bony deformity Neuro Exam: MS: AAOx4, clear language, no dysarthria CN: PERRL, visual ching full Inability to full abduct R eye Fundoscopic exam very limited--diff to visualize optic disk (R disk papilledema) Facial sensation decreased on left (ongoing of 6 months), no facial asymmetry Motor: Normal bulk and tone. 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 +pronator drift on left LE: 5/5 R, 4/5 L Hip flexion 5/5 R, 4/5 L Knee extension 5/5 R, 4/5 L Knee flexion 5/5 R, 4/5 L Foot dorsiflexion 5/5 R, 4/5 L Foot plantar flexion Sensation: Decreased to light touch over L left Reflexes: DTRs 2+ R, 2+ L Biceps 2+ R, 2+ L Brachioradialis 2+ R, 2+ L Triceps 2+ R, 2+ L Patellar 2+ R, 2+ L Achilles tendon Toes - R mute, L mute Coordination: L dysmetria Labs: Recent Results (from the past 24 hour(s)) Basic Metabolic Panel (non-fasting) Result Value Ref Range Glucose Lvl 75 65 - 199 mg/dL BUN 17 8 - 18 mg/dL Creatinine 0.77 0.70 - 1.20 mg/dL Sodium 141 135 - 145 mmol/L Potassium 4.1 3.5 - 5.0 mmol/L Chloride 104 98 - 107 mmol/L CO2 28 22 - 31 mmol/L Anion Gap 9 5 - 15 mmol/L Calcium 8.5 8.5 - 10.5 mg/dL eGFR 105 >=60 mL/min/1.73 m?? eGFR 122 >=60 mL/min/1.73 m?? Magnesium Result Value Ref Range Magnesium 0.73 0.69 - 1.07 mmol/L Phosphorus Result Value Ref Range Phosphorus 4.6 (H) 2.5 - 4.5 mg/dL Hepatic Function Panel Result Value Ref Range Total Protein 6.3 6.1 - 8.0 gm/dL Albumin 3.1 (L) 3.2 - 5.2 gm/dL AST 25 0 - 30 unit/L ALT 33 (H) 0 - 30 unit/L Alk Phos 99 40 - 104 unit/L Total Bilirubin <0.2 (L) 0.2 - 1.3 mg/dL Bili, Direct 0.1 0.0 - 0.3 mg/dL Hemogram Result Value Ref Range WBC 8.2 4.0 - 9.5 x10(3)/mcL RBC 3.62 (L) 4.00 - 5.21 x10(6)/mcL Hemoglobin 11.0 (L) 11.7 - 15.5 gm/dL Hematocrit 34.0 (L) 35.7 - 45.8 % MCV 93.9 82.6 - 94.4 fL MCH 30.4 27.1 - 32.0 pg MCHC 32.4 31.7 - 35.0 gm/dL Platelets 226 145 - 357 x10(3)/mcL RDWSD 44.3 37.0 - 46.0 fL RDWCV 12.9 11.5 - 14.1 % MPV 10.7 7.6 - 12.9 fL nRBC % Auto 0.0 % nRBC Abs Auto 0.000 0.000 - 0.000 x10(3)/mcL Differential, Automated Result Value Ref Range Neutrophils % 49.5 % Neutr Abs (ANC) 4.09 1.70 - 6.10 x10(3)/mcL Lymphocytes % 39.7 % Lymphocytes Abs 3.3 (H) 0.9 - 3.2 x10(3)/mcL Monocytes % 6.1 % Monocyte Abs 0.5 0.3 - 0.9 x10(3)/mcL Eosinophils % 2.7 % Eosinophils Abs 0.2 0.0 - 0.4 x10(3)/mcL Basophils % 0.5 % Basophils Abs 0.0 0.0 - 0.1 x10(3)/mcL Immature Gran % 1.50 % Ale Gran Abs 0.12 (H) 0.00 - 0.04 x10(3)/mcL Diagnostic Tests and Imaging: Duplex Study for DVT, Bilat legs (09/07) Interpretation: ?? RIGHT: ??No evidence of lower extremity deep venous thrombosis. ?? LEFT: ??No evidence of lower extremity deep venous thrombosis. . Assessment and Plan: Savannah Moore is a 27 y.o. F with h/o prior aneurysm sp coiling, remote IVDU, worsening headaches x6 months who p/w new multifocal infarcts over R cerebral hemisphere involving R parietal, posterior frontal and R occipitial lobe. Main sx now include ongoing visual obscurations, CUADRA, Right CN palsy and focal weakness of the Left arm and leg. Etiology of infarcts not yet clear but we are concerned for CVT given elevated pressures on LP. Must also consider thrombosis of aneurysm coil as a cause for R sided infarcts . OSH CTA was negative for any vessel abn but study quality was limited--2nd read of films including MRI Brain and CTH/CTA have been requested. Less likely that this is septicemboli (aware of recent fevers, but in setting of non active IVDU, this is less likely). . Thrombolytics were considered and not given secondary to out of time window. She continues to complain of headaches. On examination today she complained of neck tenderness withpalpation. We will start her on Tizanidine 4 mg TID to address her headache and start her IV compazine for nausea. We may consider starting her Thorazine for her headache and nausea but we are concerned that it may affect her eligibility for a cardiac MRI and EVELIO. She has been complaining of SOB which may be related to her low EF. We will obtain a CXR to assess for pulmonary edema and consider diuresis her. Plan #Worsening CUADRA # New R parietal, posterior frontal and R occipitial lobe. -Admit to neurology, floor level -Neuro check & vitals Q4hrs / Q4hrs -Permissive HTN, treat SBP >220 with prn labetalol, enalaprilat -Check CBC, BMP, LFT, lipid profile, HbA1c, Mg, Phos, UA, BC - Autoimmune abel: ds DNA, ANCA panel ,C3/4 complements, SSA, SSB (ALFREDO and RF already obtained at OSH) - Continue ASA 81mg for now -Statin pending labs -TTE -12 lead EKG -Telemetry -2nd read on OSH MRI brain, CTH/CTA - CTV - repeat CTA head only - Ophthalmology consult, recs appreciated -PT/OT/TALENT BUYER #Reduced EF -LVEF 45% on TTE (09/06) -Consult cardiology; recs appreciated # Headaches - IVF, IV mag, depacon 500mg - Scheduled tylenol - Tizanidine 4 mg TID # Home meds (med rec completed with pt) - paroxetine 10mg QHs- will hold this for now - tums prn - colace 100mg QD prn - tylenol prn - albuterol Q6hrs prn - proair inh - omeprazole 20--> pantoprazole 20mg - gabapentin 100mg TID - methadone 120mg QD # Prophylaxis -Lovenox 40mg QD -RBOs -SCDs # Supportive care -Regular diet -Tylenol PRN -Up with assistance # Full Code Gabby Abel MD 09/08/2018 Vascular Neurology Pager [phone] Antithrombotic stroke prevention ASA Statin therapy N/A Blood Pressure goals/control SBP < 220 Glycemic control Recent Labs 09/06/18 1001 HA1C 5.3 Smoking/tobacco Social History Tobacco Use Smoking Status Former Smoker ??? Packs/day: 0.00 ??? Years: 8.00 ??? Pack years: 0.00 ??? Types: Cigarettes Tobacco Comment quit apr 2015 VTE ppx Enoxaparin, SCD Fluids NS 100 cc/hr Nutrition Regular diet Discharge barriers (eg., guardianship, advance directive, insurance) PT/OT eval. Mobility Up with assistance Last BM 09/07 LDAs Patient Lines/Drains/Airways Status Active LDAs Name: Placement date: Placement time: Site: Days: Peripheral IV Line - Single Lumen 09/05/182139 cephalic vein (lateral side of arm), left 22 gauge;1 in length;3/4 in length 09/05/180 less than 1 Peripheral IV Line - Single Lumen 09/06/18 0452 median cubital vein (antecubital fossa), right 18 gauge;1 in length;3/4 in length 09/06/18 0452 less than 1 Review standing lab orders Reviewed Educational packet PENDING NIHSS (approx 36 hour post t-PA and intervention) N/A Associated attestation - Meagan Garza MD - 09/08/2018 3:02 PM EDT Neurology Staff Note I have reviewed the resident's history during the visit and I agree with the details as written. Myphysical examination confirms the resident's findings. The assessment and plan were formulated in discussion with me at the time of the visit and I agree with them as documented. She seems more comfortable but continues to have constant CUADRA and nausea and decreased intake. EKG negative. CXR normal. Will try tizanidine, consider ONBs and give schedule parenteral compazine. I explained how a conventional cerebral angiogram may be indicated to check the Neuroform stent andresidual aneurysm but will see how the initial tests for her cardiac situation develop. If a cardiac cath is needed, perhaps a DOUGLAS injection via the right UE followed by a cardiac cath could be considered. * Graciela Thomas DT - 09/07/2018 2:51 PM EDT Nutrition Services - Initial Note Savannah Moore : 1990 AGE: 27 y.o. Patient Active Problem List Diagnosis Date Noted ??? Hospital-Stroke 09/05/2018 ??? Seizures ??? Patient non adherence [...] ??? Migraines 01/15/2014 Reason for Nutrition Intervention: Diagnosis Diet Order: Regular Appetite: Good to fair Food allergies: NKFA Chewing/Swallowing difficulty: some swallowing difficulty per pt (RN aware) Ht Readings from Last 3 Encounters: 09/05/18 157.5 cm (5' 2) 11/25/15 157.5 cm (5' 2) 10/28/15 157.5 cm (5' 2) Wt Readings from Last 3 Encounters: 09/06/18 109.9 kg (242 lb 3.2 oz) 11/25/15 84.8 kg (187 lb) 10/28/15 85.3 kg (188 lb) Body mass index is 44.3 kg/m??. Vitamins/Minerals: Vitamin B12 and Tums noted. Assessment: Patient seen for stroke diagnosis. Lot Porter explained current diet order without questions and patient denies need for nutrition education. She reported a fair to good appetite without difficulty chewing. Patient reported some difficulty with swallowing, stating I just had a stroke so I have to be careful, but I'm fine. Lot Porter spoke with RN who stated she has no concerns for patients swallowing at this time. Patient declined soft foods or for kitchen to cut up foods at this time. Patient is tolerating current diet without nausea or vomiting. Patient is comfortable with making daily meal choices independently. Nursing documented 100% PO intake for breakfast tray on 09/06. Patient had no further questions at this time. Encouraged patient to contact Food and Nutrition services with any questions that may arise. Nutrition Plan: Continue current diet. Recommend Daily Multi Vitamin. Monitor weight. Encourage good po intake. Support and encouragement provided. Nutrition services to follow weekly through hospital course unless consulted in the interim. NELY IbarraR Pager# [phone] * Taya Jimenez MD - 09/07/2018 7:58 AM EDT Neurology Progress Notes Patient name: Savannah Moore Date of : 1990 PCP: Vicky Obrien APRN ID: Savannah Moore is a 27 y.o. R handed F with a PMHx of migraines (age on onset 10), cerebral aneurysm s/p clipping and coiling (2014), asthma ,depression, PTSD, IVDA (abstinent for 17 months), hepatitis C (untreated) who presented to OSH on 09/03 complaining of worsening headaches for the past 6 months, now with new multifocal infarcts. Interval History - Restarted home methadone 120 mg QD - Started scheduled tylenol - TTE completed - SBP 122 - 148. - No acute events overnight, vital signs stable, afebrile - Neurologic exam stable - LDL - 72 - C3 - 111; C4 - 30; dsDNA Ab - negative - BCx - NGTD - TTE - mildly dilated LV. Diffuse hypokinesis. LVEF 45%. PFO identifies - Plan to see Ophthalmology. Scheduled Medications ??? magnesium oxide 400 mg Oral BID ??? cyanocobalamin (vitamin B-12) 1,000 mcg Oral Daily ??? acetaminophen 650 mg Oral Q6H ??? methadone (Methadose) oral liquid 120 mg Oral Daily ??? melatonin 6 mg Oral Nightly ??? fluticasone propionate 2 puff Inhalation BID ??? gabapentin 100 mg Oral TID ??? pantoprazole 20 mg Oral Daily ??? sodium chloride 0.9 % 5 mL Intravenous BID ??? senna-docusate 2 tablet Oral BID ??? polyethylene glycol (MIRALAX)oral powder 17 g Oral Daily ??? enoxaparin 40 mg Subcutaneous Nightly ??? aspirin 81 mg Oral Daily ??? nicotine 1 patch Transdermal Daily And ??? Patch Verification 1 patch Transdermal BID And ??? nicotine 1 patch Transdermal Daily PRN Medications ondansetron OR ondansetron, calcium carbonate, docusate sodium, albuterol, sodium chloride 0.9 %, lidocaine, magnesium hydroxide, bisacodyl, labetalol, enalaprilat, ketorolac Continuous Medications ??? sodium chloride 0.9% 1,000 mL (09/07/18 0144) Physical Exam: Vitals: Temp: [36.2 ??C (97.2 ??F)-36.7 ??C (98.1 ??F)] Heart Rate: [63-74] Resp: [16-18] BP: (122-148)/(72-100) SpO2: [97 %-100 %] Heart Rate from SpO2: -- Gen: NAD Neck: Supple, occipital tenderness, no meningismus CV: + S1, S2, RRR, no murmur Resp: CTA B/L Abd: nondistended Ext: No edema. No bony deformity Neuro Exam: MS: AAOx4, clear language, no dysarthria CN: PERRL, visual ching full Inability to full abduct R eye Fundoscopic exam very limited--diff to visualize optic disk (R disk papilledema) Facial sensation decreased on left (ongoing of 6 months), no facial asymmetry Motor: Normal bulk and tone. 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 +pronator drift on left LE: 5/5 R, 4/5 L Hip flexion 5/5 R, 4/5 L Knee extension 5/5 R, 4/5 L Knee flexion 5/5 R, 4/5 L Foot dorsiflexion 5/5 R, 4/5 L Foot plantar flexion Sensation: Decreased to light touch over L left Reflexes: DTRs 2+ R, 2+ L Biceps 2+ R, 2+ L Brachioradialis 2+ R, 2+ L Triceps 2+ R, 2+ L Patellar 2+ R, 2+ L Achilles tendon Toes - R mute, L mute Coordination: L dysmetria Labs: Recent Results (from the past 24 hour(s)) Magnesium Result Value Ref Range Magnesium 0.68 (L) 0.69 - 1.07 mmol/L Phosphorus Result Value Ref Range Phosphorus 2.8 2.5 - 4.5 mg/dL Hepatic Function Panel Result Value Ref Range Total Protein 6.0 (L) 6.1 - 8.0 gm/dL Albumin 2.9 (L) 3.2 - 5.2 gm/dL AST 16 0 - 30 unit/L ALT 28 0 - 30 unit/L Alk Phos 102 40 - 104 unit/L Total Bilirubin <0.2 (L) 0.2 - 1.3 mg/dL Bili, Direct <0.1 0.0 - 0.3 mg/dL Hemoglobin A1c Result Value Ref Range Hemoglobin A1C 5.3 4.3 - 5.6 % Est Avg Gluc 105 mg/dL LDL Cholesterol, Direct Result Value Ref Range LDL Chol Direct 70 mg/dL HDL/Cholesterol Profile Result Value Ref Range Chol, Total 129 mg/dL HDL 37 mg/dL Chol/HDL Ratio 3.5 ratio Chol/HDL Interpretation See Note Triglyceride Result Value Ref Range Triglycerides 171 mg/dL Hemogram Result Value Ref Range WBC 9.3 4.0 - 9.5 x10(3)/mcL RBC 3.43 (L) 4.00 - 5.21 x10(6)/mcL Hemoglobin 10.3 (L) 11.7 - 15.5 gm/dL Hematocrit 32.4 (L) 35.7 - 45.8 % MCV 94.5 (H) 82.6 - 94.4 fL MCH 30.0 27.1 - 32.0 pg MCHC 31.8 31.7 - 35.0 gm/dL Platelets 192 145 - 357 x10(3)/mcL RDWSD 45.6 37.0 - 46.0 fL RDWCV 13.2 11.5 - 14.1 % MPV 11.1 7.6 - 12.9 fL nRBC % Auto 0.0 % nRBC Abs Auto 0.000 0.000 - 0.000 x10(3)/mcL Differential, Automated Result Value Ref Range Neutrophils % 53.0 % Neutr Abs (ANC) 4.93 1.70 - 6.10 x10(3)/mcL Lymphocytes % 38.7 % Lymphocytes Abs 3.6 (H) 0.9 - 3.2 x10(3)/mcL Monocytes % 6.1 % Monocyte Abs 0.6 0.3 - 0.9 x10(3)/mcL Eosinophils % 1.3 % Eosinophils Abs 0.1 0.0 - 0.4 x10(3)/mcL Basophils % 0.3 % Basophils Abs 0.0 0.0 - 0.1 x10(3)/mcL Immature Gran % 0.60 % Ale Gran Abs 0.06 (H) 0.00 - 0.04 x10(3)/mcL BMP w/fasting Glucose Result Value Ref Range Glucose Fasting 108 (H) 65 - 99 mg/dL BUN 23 (H) 8 - 18 mg/dL Creatinine 0.77 0.70 - 1.20 mg/dL Sodium 142 135 - 145 mmol/L Potassium 4.1 3.5 - 5.0 mmol/L Chloride 106 98 - 107 mmol/L CO2 26 22 - 31 mmol/L Anion Gap 10 5 - 15 mmol/L Calcium 8.9 8.5 - 10.5 mg/dL eGFR 105 >=60 mL/min/1.73 m?? eGFR 122 >=60 mL/min/1.73 m?? Lipid Panel Result Value Ref Range Chol, Total 130 mg/dL Triglycerides 173 mg/dL HDL 36 mg/dL LDL Cholesterol 59 mg/dL Chol/HDL Ratio 3.6 ratio Lipid Interpretation See Note Diagnostic Tests and Imaging: CT Angiogram [place] [facility] & CT Venogram of Brain (09/06) IMPRESSION No central branch occlusion. Relative paucity of branches in the right frontal MCA territory could reflect distal branch occlusion, though the cut off is not identified. No evidence for dural venous sinus thrombosis. TTE SUMMARY: ?? 1. The left ventricle is mildly dilated.(EDV [...] cardiac valves appear structurally and functionally normal. Assessment and Plan: Savannah Moore is a 27 y.o. F with h/o prior aneurysm sp coiling, remote IVDU, worsening headaches x6 months who p/w new multifocal infarcts over R cerebral hemisphere involving R parietal, posterior frontal and R occipitial lobe. Main sx now include ongoing visual obscurations, CUADRA, Right CN palsy and focal weakness of the Left arm and leg. Etiology of infarcts not yet clear but we are concerned for CVT given elevated pressures on LP. Must also consider thrombosis of aneurysm coil as a cause for R sided infarcts . OSH CTA was negative for any vessel abn but study quality was limited--2nd read of films including MRI Brain and CTH/CTA have been requested. Less likely that this is septicemboli (aware of recent fevers, but in setting of non active IVDU, this is less likely). . Thrombolytics were considered and not given secondary to out of time window. Her TTE from yesterday showed diffuse hypokinesis with an LVEF of 45% which is concerning given heryoung age. Initially we were suspicious of thromboembolism originating from her aneurysm clip; however, with her reduced cardiac function we are concerned about possible cardio-embolism as a cause for her infracts. We will consult cardiology for further recommendations in assessing her reduced EF. Plan #Worsening CUADRA # New R parietal, posterior frontal and R occipitial lobe. -Admit to neurology, floor level -Neuro check & vitals Q4hrs / Q4hrs -Permissive HTN, treat SBP >220 with prn labetalol, enalaprilat -Check CBC, BMP, LFT, lipid profile, HbA1c, Mg, Phos, UA, BC - Autoimmune abel: ds DNA, ANCA panel ,C3/4 complements, SSA, SSB (ALFREDO and RF already obtained at OSH) - Continue ASA 81mg for now -Statin pending labs -TTE -12 lead EKG -Telemetry -2nd read on OSH MRI brain, CTH/CTA - CTV - repeat CTA head only - Ophthalmology consult, recs appreciated -PT/OT/TALENT BUYER #Reduced EF -LVEF 45% on TTE (09/06) -Consult cardiology; recs appreciated # Headaches - IVF, IV mag, depacon 500mg - Scheduled tylenol # Home meds (med rec completed with pt) - paroxetine 10mg QHs- will hold this for now - tums prn - colace 100mg QD prn - tylenol prn - albuterol Q6hrs prn - proair inh - omeprazole 20--> pantoprazole 20mg - gabapentin 100mg TID - methadone 120mg QD # Prophylaxis -Lovenox 40mg QD -RBOs -SCDs # Supportive care -Regular diet -Tylenol PRN -Up with assistance # Full Code Gabby Abel MD 09/07/2018 Vascular Neurology Pager [phone] Neurology Attending Attestation I evaluated the patient with the Neurology Residents during bedside rounds on 09/07/2018. I have reviewed the medical records and patient's history, as well as the resident???s and student's history and examination findings and I agree with the details as written. My neurologic examination confirms the resident???s findings. We formulated the assessment and plan after a detailed discussion, as documented. Taya Jimenez MD Vascular Neurology Antithrombotic stroke prevention ASA Statin therapy PENDING Blood Pressure goals/control SBP < 220 Glycemic control Recent Labs 09/06/18 1001 HA1C 5.3 Smoking/tobacco Social History Tobacco Use Smoking Status Former Smoker ??? Packs/day: 0.00 ??? Years: 8.00 ??? Pack years: 0.00 ??? Types: Cigarettes Tobacco Comment quit apr 2015 VTE ppx Enoxaparin, SCD Fluids NS 100 cc/hr Nutrition Regular diet Discharge barriers (eg., guardianship, advance directive, insurance) PT/OT eval. Mobility Up with assistance Last BM SLPS LDAs Patient Lines/Drains/Airways Status Active LDAs Name: Placement date: Placement time: Site: Days: Peripheral IV Line - Single Lumen 09/05/180 cephalic vein (lateral side of arm), left 22 gauge;1 in length;3/4 in length 09/05/18 2140 less than 1 Peripheral IV Line - Single Lumen 09/06/18 0452 median cubital vein (antecubital fossa), right 18 gauge;1 in length;3/4 in length 09/06/18 0452 less than 1 Review standing lab orders BMP, CBC, Calcium, LFTs, Mg, PO4, UA Educational packet PENDING NIHSS (approx 36 hour post t-PA and intervention) N/A * Johnny Lopez, SURGICAL ELASTIC KNITTER HAND [employer]AME - 09/06/2018 4:46 PM EDT Patient off floor at Opt appt for most of afternoon delaying IA * Graciela Thomas DT - 09/06/2018 2:57 PM EDT Nutrition Services - Initial Note Savannah Moore : 1990 AGE: 27 y.o. Patient Active Problem List Diagnosis Date Noted ??? Hospital-Stroke 09/05/2018 ??? Seizures ??? Patient non adherence [...] ??? Migraines 01/15/2014 Reason for Nutrition Intervention: Diagnosis Diet Order: Regular Food allergies: NKFA Ht Readings from Last 3 Encounters: 09/05/18 157.5 cm (5' 2) 11/25/15 157.5 cm (5' 2) 10/28/15 157.5 cm (5' 2) Wt Readings from Last 3 Encounters: 09/06/18 109.9 kg (242 lb 3.2 oz) 11/25/15 84.8 kg (187 lb) 10/28/15 85.3 kg (188 lb) Body mass index is 44.3 kg/m??. Vitamins/Minerals: Vitamin B12 and Tums noted. Assessment: Attempted to see patient multiple times today without success. Will try back tomorrow to see patient for nutrition visit. NELY IbarraR Pager# [phone] * Melida Crawford OT - 09/06/2018 2:09 PM EDT Chart reviewed and orders received. [facility] and we will f/u with OT tomorrow. Melida Crawford OTR/L [id number] * Taya Jimenez MD - 09/06/2018 7:48 AM EDT Neurology Progress Notes Patient name: Savannah Moore Date of : 1990 PCP: Vicky Obrien APRN ID: Savannah Moore is a 27 y.o. R handed F with a PMHx of migraines (age on onset 10), cerebral aneurysm s/p clipping and coiling (2014), asthma ,depression, PTSD, IVDA (abstinent for 17 months), hepatitis C (untreated) who presented to OSH on 09/03 complaining of worsening headaches for the past 6 months, now with new multifocal infarcts. Interval History -Admitted to neurology -Performing infectious and inflammatory workup - No acute events overnight, vital signs stable, afebrile - Neurologic exam stable Scheduled Medications ??? fluticasone propionate 2 puff Inhalation BID ??? gabapentin 100 mg Oral TID ??? pantoprazole 20 mg Oral Daily ??? sodium chloride 0.9 % 5 mL Intravenous BID ??? senna-docusate 2 tablet Oral BID ??? polyethylene glycol (MIRALAX)oral powder 17 g Oral Daily ??? enoxaparin 40 mg Subcutaneous Nightly ??? aspirin 81 mg Oral Daily ??? nicotine 1 patch Transdermal Daily And ??? Patch Verification 1 patch Transdermal BID And ??? nicotine 1 patch Transdermal Daily PRN Medications acetaminophen, calcium carbonate, docusate sodium, albuterol, sodium chloride 0.9 %, lidocaine, magnesium hydroxide, bisacodyl, labetalol, enalaprilat, ketorolac Continuous Medications ??? sodium chloride 0.9% 1,000 mL (09/05/182007) Physical Exam: Vitals: Temp: [36.4 ??C (97.5 ??F)-36.8 ??C (98.3 ??F)] Heart Rate: [69-76] Resp: [16-20] BP: (113-145)/(62-87) SpO2: [91 %-97 %] Heart Rate from SpO2: -- Gen: NAD Neck: Supple, occipital tenderness, no meningismus CV: + S1, S2, RRR, no murmur Resp: CTA B/L Abd: nondistended Ext: No edema. No bony deformity Neuro Exam: MS: AAOx4, clear language, no dysarthria CN: PERRL, visual ching full Inability to full abduct R eye Fundoscopic exam very limited--diff to visualize optic disk (R disk papilledema) Facial sensation decreased on left (ongoing of 6 months), no facial asymmetry Motor: Normal bulk and tone. 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 +pronator drift on left LE: 5/5 R, 4/5 L Hip flexion 5/5 R, 4/5 L Knee extension 5/5 R, 4/5 L Knee flexion 5/5 R, 4/5 L Foot dorsiflexion 5/5 R, 4/5 L Foot plantar flexion Sensation: Decreased to light touch over L left Reflexes: DTRs 2+ R, 2+ L Biceps 2+ R, 2+ L Brachioradialis 2+ R, 2+ L Triceps 2+ R, 2+ L Patellar 2+ R, 2+ L Achilles tendon Toes - R mute, L mute Coordination: L dysmetria Labs: Recent Results (from the past 24 hour(s)) Sedimentation rate Result Value Ref Range Sed Rate 24 (H) 0 - 20 mm/hr CRP, acute inflammation Result Value Ref Range CRP 65.9 (H) <=4.9 mg/L C3 Complement Result Value Ref Range C3 Complement 111 90 - 180 mg/dL C4 Complement Result Value Ref Range C4 Complement 30 10 - 40 mg/dL Diagnostic Tests and Imaging: CTV Head - PENDING CACO - PENDING Assessment and Plan: Savannah Moore is a 27 y.o. F with h/o prior aneurysm sp coiling, remote IVDU, worsening headaches x6 months who p/w new multifocal infarcts over R cerebral hemisphere involving R parietal, posterior frontal and R occipitial lobe. Main sx now include ongoing visual obscurations, CUADRA, Right CN palsy and focal weakness of the Left arm and leg. Etiology of infarcts not yet clear but we are concerned for CVT given elevated pressures on LP. Must also consider thrombosis of aneurysm coil as a cause for R sided infarcts . OSH CTA was negative for any vessel abn but study quality was limited--2nd read of films including MRI Brain and CTH/CTA have been requested. Less likely that this is septicemboli (aware of recent fevers, but in setting of non active IVDU, this is less likely). . Thrombolytics were considered and not given secondary to out of time window. She continues to have ongoing headaches. We will obtain a CTV to assess for venous thrombosis as a potential cause for her CUADRA. If negative, we may need to repeat her LP to assess her opening and closing pressures to assess for IIH. For now, we will obtain a TTE to rule out cardio-embolism as a cause for her stroke. For pain management, we will start her scheduled Tylenol and resume her methadone once we confirm its dosing from her [facility]. She will be assess by opthalmology tomorrow for her papilledema. Plan #Worsening CUADRA # New R parietal, posterior frontal and R occipitial lobe. -Admit to neurology, floor level -Neuro check & vitals Q4hrs / Q4hrs -Permissive HTN, treat SBP >220 with prn labetalol, enalaprilat -Check CBC, BMP, LFT, lipid profile, HbA1c, Mg, Phos, UA, BC - Autoimmune abel: ds DNA, ANCA panel ,C3/4 complements, SSA, SSB (ALFREDO and RF already obtained at OSH) - Continue ASA 81mg for now -Statin pending labs -TTE -12 lead EKG -Telemetry -2nd read on OSH MRI brain, CTH/CTA - CTV - repeat CTA head only - Ophthalmology consult tmr -PT/OT/TALENT BUYER # Headaches - IVF, IV mag, depacon 500mg - Scheduled tylenol - Planning on restarting Methadone once confirmed by [facility] # Home meds (med rec completed with pt) - methadone 120mg QD (restart after speaking with DAIJA) - paroxetine 10mg QHs- will hold this for now - tums prn - colace 100mg QD prn - tylenol prn - albuterol Q6hrs prn - proair inh - omeprazole 20--> pantoprazole 20mg - gabapentin 100mg TID - need to verify with her pharmacy dose of methadone (pt states 120mg QD...) # Prophylaxis -Lovenox 40mg QD -RBOs -SCDs # Supportive care -Regular diet -Tylenol PRN -Up with assistance # Full Code Gabby Abel MD 09/06/2018 Vascular Neurology Pager [phone] Neurology Attending Attestation I evaluated the patient with the Neurology Residents during bedside rounds on 09/06/2018. I have reviewed the medical records and patient's history, as well as the resident???s and student's history and examination findings and I agree with the details as written. My neurologic examination confirms the resident???s findings. We formulated the assessment and plan after a detailed discussion, as documented. Taya Jimenez MD Vascular Neurology Antithrombotic stroke prevention ASA Statin therapy PENDING Blood Pressure goals/control SBP < 220 Glycemic control No results for input(s): HA1C in the last 7068 hours. Smoking/tobacco Social History Tobacco Use Smoking Status Former Smoker ??? Packs/day: 0.00 ??? Years: 8.00 ??? Pack years: 0.00 ??? Types: Cigarettes Tobacco Comment quit apr 2015 VTE ppx Enoxaparin, SCD Fluids NS 100 cc/hr Nutrition Regular diet Discharge barriers (eg., guardianship, advance directive, insurance) PT/OT eval. Mobility Up with assistance Last BM SLPS LDAs Patient Lines/Drains/Airways Status Active LDAs Name: Placement date: Placement time: Site: Days: Peripheral IV Line - Single Lumen 09/05/182139 cephalic vein (lateral side of arm), left 22 gauge;1 in length;3/4 in length 09/05/182139 less than 1 Peripheral IV Line - Single Lumen 09/06/18 0452 median cubital vein (antecubital fossa), right 18 gauge;1 in length;3/4 in length 09/06/18 0452 less than 1 Review standing lab orders BMP, CBC, Calcium, LFTs, Mg, PO4, SSA, SSB, Cytoplasmic Neutrophilic Ab,UA Educational packet PENDING NIHSS (approx 36 hour post t-PA and intervention) N/A * Jasbir Obrien RN - 09/05/2018 4:25 PM EDT Pt from outside hospital to 518A Pt axo mother at bedside Pt complains of pain in the back of the head 12/01 Pt has left sided weakness U and LLE / Push/pull Pt did not get up to walk but says she voids fine. Team aware of pt being here Awaiting orders documented in this encounter H&P Notes * Diane Harris MD - 09/05/2018 2:43 PM EDT Neurology Admission History and Physical Patient name: Savannah Moore Date of : 1990 PCP: Vicky Obrien APRN Onset of symptoms (if witnessed): 09/03 Last known well: 09/03 Stroke Alert Activated: N.A CC: Headaches, new onset multifocal infarcts HPI: Savannah Moore is a 27 y.o. R handed F with a PMHx of migraines (age on onset 10), cerebral aneurysm s/p clipping and coiling (2014), asthma ,depression, PTSD, IVDA (abstinent for 17 months), hepatitis C (untreated) who presented to OSH on 09/03 complaining of worsening headaches for the past 6 months, now with new multifocal infarcts. CUADRA occur coulple times a week associated with blurred vision, tinnitus, flashing lights, seeing colored spots, N/V. CUADRA radiates from the top of her head down her back and neck. These headaches have also been associated with low grade fever (101) and diaphoresis for the past week. Pt has gained 80lbs in past 2 years, OSH course with negative CTH, CTA (marred by motion artifact) MRI and MRV demonstrated small multiple small foci of recent/acute ischemic changes in the R. Cerebral hemishperhe involving the R parietal, posterior frontal, and occipital lobe. cbc, cmp neg. ALFREDO and RF neg LP showed elevated closing pressure of 35. Her CSF was otherwise normal (2 WBC, 1 RBC, normal glucose, and normal protein). Based on her closing pressure there was concern for IIH. She was given compazine, dilaudid, morphine, and benadryl. It is unclear if her headache was responsive to the LP or to her medications. Recommended pt be transferred given concern for IIH, venous sinus thrombosis, and empty sella syndrome and also to obtain ophthalmology eval. Vitals on Presentation to OSH Temp - 37.3 PA - 97 RR - 21 BP - 116/76 OSH Labs: WBC - 4.48 Hbg - 12.4 Hct - 31.8 Plt - 237 Na - 140 K - 3.6 Cl - 102 CO2 - 29.9 BUN - 18 Cr - 1.02 Glu - 74 AST - 45 ALT - 59 ALP - 142 UTox Positive for: Opiates and Methadone BD and UC pending LP CSF Glu - 55 CSF Protein - 27 CSF WBC - 2 CSF RBC - 1 CSF Cultures - NGTD Past Medical & Surgical History: Past Medical History: Diagnosis Date ??? ADD [...] Procedure Date: 06/19/2007 ??? LITHOTRIPSY kidney stones Home Medications: No current facility-administered medications on file prior to encounter. Current Outpatient Medications on File Prior to Encounter Medication Sig Dispense Refill ??? PARoxetine (PAXIL) 20 mg Tablet Take 20 mg by mouth every morning. ??? PROAIR HFA 90 mcg/actuation HFA Aerosol Inhaler ??? docusate sodium (COLACE) 100 mg Capsule TAKE ONE CAPSULE BY MOUTH TWICE A DAY 1 ??? FLOVENT HFA 220 mcg/actuation HFA Aerosol Inhaler ??? omeprazole (PRILOSEC) 40 mg Capsule, Delayed Release(E.C.) TAKE ONE CAPSULE BY MOUTH EVERY DAY 3 ??? gabapentin (NEURONTIN) 400 mg Capsule Take 1 capsule by mouth 3 times daily. 84 capsule 3 ??? acetaminophen (TYLENOL) 325 mg Tablet Take 2 tablets by mouth every 4 hours as needed for Pain (mild pain). 30 tablet 1 ??? calcium carbonate (TUMS) 200 mg calcium (500 mg) Tablet, Chewable Take 2 tablets by mouth dailyas needed. Allergy: Allergies Allergen Reactions ??? Bee Pollen Anaphylaxis ??? Meperidine Hcl Anaphylaxis and Other (See Comments) flushing, respiratory trouble ??? [place] Other (See Comments) Flu like sx ??? Zoloft [Sertraline] Other (See Comments) Flu like sx Family History: Family History Problem Relation Age [...] ??? Migraines Brother ??? Migraines Maternal Aunt Social History: Smoking: Active smoker (5 cigarettes/day) EtOH: Illicits: Former use of heroine, cocaine, and opiates. Enrolled in [employer] [place] on Methadone Living situation: Social History Socioeconomic History ??? Marital status: Single Spouse name: Not on file ??? Number of children: Not on file ??? Years of education: Not on file ??? Highest education level: Not on file Occupational History ??? Not on file Social Needs ??? Financial resource strain: Not on file ??? Food insecurity: Worry: Not on file Inability: Not on file ??? Transportation needs: Medical: Not on file Non-medical: Not on file Tobacco Use ??? Smoking status: Former Smoker Packs/day: 0.00 Years: 8.00 Pack years: 0.00 Types: Cigarettes ??? Smokeless tobacco: Never Used ??? Tobacco comment: quit apr 2015 Substance and Sexual Activity ??? Alcohol use: Not on file Comment: seldom ??? Drug use: Yes Types: Marijuana ??? Sexual activity: Yes Partners: Male Lifestyle ??? Physical activity: Days per week: Not on file Minutes per session: Not on file ??? Stress: Not on file Relationships ??? Social connections: Talks on phone: Not on file Gets together: Not on file Attends anabaptism service: Not on file Active member of club or organization: Not on file Attends meetings of clubs or organizations: Not on file Relationship status: Not on file ??? Intimate partner violence: Fear of current or ex partner: Not on file Emotionally abused: Not on file Physically abused: Not on file Forced sexual activity: Not on file Other Topics Concern ??? Not on file Social History Narrative ??? Not on file Review of systems: Constitutional: No fevers or chills Eyes: vision changes, blurry vision ENT: No rhinorrhea or pharyngitis, no meningismus CV: No chest pain or palpitations Resp: shortness of breath GI: No nausea, vomiting, diarrhea or constipation : No dysuria, no incontinence Heme: No bleeding or bruising Endo: No polyuria or cold intolerance Neuro: See HPI Psych: No depression, normal sleep [x] Review of systems otherwise negative Physical Exam: Vitals: Temp: [36.8 ??C (98.3 ??F)] Heart Rate: [73] Resp: [16] BP: (118)/(73) SpO2: [94 %] Heart Rate from SpO2: -- Gen: NAD Neck: Supple, occipital tenderness, no meningismus CV: + S1, S2, RRR, no murmur Resp: CTA B/L Abd: nondistended Ext: No edema. No bony deformity Neuro Exam: MS: AAOx4, clear language, no dysarthria CN: PERRL, visual ching full Inability to full abduct R eye Fundoscopic exam very limited--diff to visualize optic disk (R disk papilledema) Facial sensation decreased on left (ongoing of 6 months), no facial asymmetry Motor: Normal bulk and tone. 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 Level of consciousness: 0-Alert 1-Not alert, but arousable with minimal stimulation 2-Not alert, requires repeat stimulation to attend 3-Coma 1.b. Ask patient the month and their age: 0-Answers both correctly 1-Answers one correctly 2-Both incorrect 1.c. Ask patient to open and close eyes: 0-Obeys both correctly 1-Obeys one correctly 2-Both incorrect 2. Best gaze (horizontal eye movement): 0-Normal 1-Partial gaze palsy 2-Forced deviation 3. Visual field testin-No visual field loss 1-Partial hemianopia 2-Complete hemianopia 3-Bilateral hemianopia (blind including cortical blindness) 4. Facial paresis (Ask patient to show teeth or raise eyebrows and close eyes tightly): 0-Normal symmetrical movement 1-Minor paralysis (flattened nasolabial fold, asymmetry on smiling) 2-Partial paralysis (total or near paralysis of lower face) 3-Complete paralysis of one or both sides (absence of facial movement in the upper and lower face) 5. Motor function right arm: 0-Normal (extends arm 90 degrees for 10 seconds without drift) 1-Drift 2-Some effort against gravity 3-No effort against gravity 4-No movement UT-Untestable (Joint fused or limb amputated) 5. Motor function- left arm: 0-Normal (extends arm 90 degrees for 10 seconds without drift) 1-Drift 2-Some effort against gravity 3-No effort against gravity (but baseline) 4-No movement UT-Untestable (Joint fused or limb amputated) 6. Motor function right le-Normal (extends leg 30 degrees for 5 seconds without drift) 1-Drift 2-Some effort against gravity 3-No effort against gravity 4-No movement UT-Untestable (Joint fused or limb amputated) 6. Motor function-left le-Normal (extends leg 30 degrees for 5 seconds without drift) 1-Drift 2-Some effort against gravity 3-No effort against gravity 4-No movement UT-Untestable (Joint fused or limb amputated) 7. Limb ataxia: 0-No ataxia 1-Present in one limb 2-Present in two limbs 8. Sensory (Use pinprick to test arms, legs, trunk and face compare side to side): 0-Normal 1-Mild to moderate decrease in sensation 2-Severe to total sensory loss 9. Best language (describe picture, name items, read sentences): 0-No aphasia 1-Mild to moderate aphasia 2-Severe aphasia 3-Mute 10. Dysarthria (read several words): 0-Normal articulation 1-Mild to moderate slurring of words 2-Near unintelligible or unable to speak UT-Intubated or other physical barrier 11. Extinction and inattention: 0-Normal 1-Inattention or extinction to bilateral simultaneous in one of the sensory modalities 2-Severe maribel-inattention or maribel-inattention to more than one modality TOTAL SCORE: 1 Labs: No results found for this or any previous visit (from the past 24 hour(s)). Diagnostic Tests and Imaging: MRI Brain wwo Contrast and MRV 1. Findings consistent with multiple small foci of recent /acute ishcemic changes right cerebral hemisphere involving the right parietal lobe, posterior frontal lobe, and right occipital lobe. Involvement of multiple vascular distrubution suggests possible embolic disease. No significant mass effect, hemorrhage, or shift. No abnormal intracranial contrast enhancement 2. Remote ischemic changes right frotal lobe/right MCA distribution 3. No acute findings left cerebral hemisphere, brainstem, or posterior fossa. Swallow Screen Results: PASSED (All YES responses) Time 6:10pm Assessment and Plan: Savannah Moore is a 27 y.o. F with h/o prior aneurysm sp coiling, remote IVDU, worsening headaches x6 months who p/w new multifocal infarcts over R cerebral hemisphere involving R parietal, posterior frontal and R occipitial lobe. Main sx now include ongoing visual obscurations, CUADRA, Right CN palsy and focal weakness of the Left arm and leg. Etiology of infarcts not yet clear but we are concerned for CVT given elevated pressures on LP. Must also consider thrombosis of aneurysm coil as a cause for R sided infarcts . OSH CTA was negative for any vessel abn but study quality was limited--2nd read of films including MRI Brain and CTH/CTA have been requested. Less likely that this is septicemboli (aware of recent fevers, but in setting of non active IVDU, this is less likely). Will admit for further evaluation--plan to obtain TTE, BC, autoimmune labs, 2ng read of OSH MRI/CTH/CTA and repeat CTA head, obtain CTV. Pending workup, will consider cerebral angiogram. . Thrombolytics were considered and not given secondary to out of time window. Plan #Worsening CUADRA # New R parietal, posterior frontal and R occipitial lobe. -Admit to neurology, floor level -Neuro check & vitals Q4hrs / Q4hrs -Permissive HTN, treat SBP >220 with prn labetalol, enalaprilat -Check CBC, BMP, LFT, lipid profile, HbA1c, Mg, Phos, UA, BC - Autoimmune abel: ds DNA, ANCA panel ,C3/4 complements, SSA, SSB (ALFREDO and RF already obtained at OSH) - Continue ASA 81mg for now -Statin pending labs -TTE -12 lead EKG -Telemetry -2nd read on OSH MRI brain, CTH/CTA - CTV - repeat CTA head only - Ophthalmology consult tmr -PT/OT/TALENT BUYER # Headaches - IVF, IV mag, depacon 500mg - prn tylenol # Home meds (med rec completed with pt) - methadone 120mg QD - paroxetine 10mg QHs- will hold this for now - tums prn - colace 100mg QD prn - tylenol prn - albuterol Q6hrs prn - proair inh - omeprazole 20--> pantoprazole 20mg - gabapentin 100mg TID - need to verify with her pharmacy dose of methadone (pt states 120mg QD...) # Prophylaxis -Lovenox 40mg QD -RBOs -SCDs # Supportive care -Regular diet -Tylenol PRN -Up with assistance # FULL code Note started by Gabby Abel MD, edited by Diane Harris MD 09/05/2018 Vascular Neurology Pager [phone] Standard [facility] [place] Swallow Screen: This screen is to be used to document a Swallow Screen prior to ingestion of water and /or oral medications for patients with possible stroke (Ischemic or Hemorrhagic). Exclusion Criteria: A swallow screen is not to be performed on patients who: ?? have a decreased level of consciousness. ?? are not able to follow simple commands. ?? are hypoxic, or have increasing O2 needs or may need to be intubated. ?? have a G/J tube for nutrition. ?? have a recent history of a swallowing disorder *These patients should remain NPO (HOLD MEDS) and the physician notified for further orders. Swallow Screen Using Water: None of the Exclusion Criteria as mentioned above is present? Patient is alert and sitting upright? Able to close lips and tongue is midline? Able to cough, manage oral secretions with dry voice? ONLY IF ABOVE ALL YES, Able to swallow 30 ml of water without coughing, displaying a wet voice or choking? Repeat Twice. ??? If YES to all responses, proceed with water and oral medications as well as diet as medical provider deems appropriate. Consider TALENT BUYER consult for full evaluation and diet recommendations. ??? If NO to any of the responses, stop immediately, keep patient NPO and notify physician. ??? Associated attestation - Meagan Garza MD - 09/05/2018 11:31 PM EDT Neurology Staff Note I have reviewed the above resident's history during the visit and I agree with the details as written. My physical examination confirms the resident's findings. The assessment and plan were formulated in discussion with me at the time of the visit and I agree with them as documented. Headaches are diffuse and continuous recently. She has continuous visual symptoms that are hard to grasp and has monocular double vision OU as well. I thought there might be some mild decrease in abduction of the right eye and some disk swelling onthe right. She has mild diffuse weakness of the left UE. Assessment and plans: She has symptoms and an LP suggestive of intracranial hypertension but the ischemic strokes are hard to connect to this. The infarctions are distal to the stent and coiled aneurysm and there may be some residual aneurysm and an embolic source related to this but so far this is not apparent on the images we have. Eye clinic appt [facility] Will likely need repeat LP with measurement of OP and closing pressure. CTA and CTV head since prior images limited by apparent motion artifact. Area of stent and coils may limit this study and a repeat MRA or a conventional angiogram may be required. Consider ONB. Continue aspirin for now. She requested some dilaudid and Benadryl and we will see if this is beneficial to her as we work through her diagnosis but she says she does not want to be getting this after hospitalized. I have examined the patient myself and personally reviewed all studies. In addition, I certify thatI am a [facility] credentialed attending provider with admitting privileges and that the patient meets or has met medical necessity to require an inpatient IPI level of care meeting a minimum of two midnights or is on the [facility] inpatient only procedure list (status C) due to: - neurologic instability requiring neurologic checks at least every 4 hours. - acute stroke requiring neurologic checks at least every 4 hours. -? Intracranial hypertension MCCs and CCs on admission (Present if in bold): Clinically significant cerebral edema, vasogenic Hyponatremia CHF acute, systolic Brain compression Hypernatremia CHF acute on chronic, systolic Clinically significant cerebral edema, cytotoxic Cerebellar ataxia CHF acute on chronic, diastolic Coma Hypertension, malignant CHF acute diastolic Hemiplegia Hypertension accelerated CHFchronic diastolic Hemiparesis Hypertensive encephalopathy Dementia with delrium Quadraplegia Malnutrition BMI<19 Dementia with depression Encephalopathy, metabolic Cachexia Alzheimer's Dementia with behavioral disturbance Encephalopathy, toxic Morbid obesity, BMI>40 Anoxic brain damage Encephalopathy, other CKD stage 4 (eGFR 15-30ml/min/1.73m2) Acute Kidney Injury Delirium, drug induced CKD stage 5 or ESRD Paroxysmal AF Persistent AF Longstanding persistent AF Permanent AF documented in this encounter Miscellaneous Notes * Op Note - Ze Freeman MD - 09/12/2018 6:00 PM EDT [facility] [place] Operative Note Patient Name: Savannah Moore : [id number] MR#: [id number] Case Date: 09/12/2018 Surgeon: Surgeon(s) and Role: * Ze Freeman MD - Primary * Bonnie Mccann MD - Fellow Preoperative diagnosis: EVELIO/CVA Postoperative diagnosis: EVELIO/CVA Procedure(s) (LRB): TRANSESOPHAGEAL ECHOCARDIOGRAM (WRVU 2.55) (N/A) Findings: pfo Anesthesia: MAC Estimated Blood Loss: * No values recorded between 09/12/2018 12:36 PM and 09/12/2018 12:52 PM * Specimens removed during surgery: None Drains: none Surgical Closure: none Disposition: awakened from anesthesia, extubated and taken to the recovery room in a stable condition, having suffered no apparent untoward event. Condition: doing well without problems (Please see the Surgical Encounter Summary for any Implant and Specimen details pertinent to this patient.) HPI/Surgical Indications: see evelio report Procedure Description: see evelio report Infection Bundle used? N/A * Consult Note - Stefanie Rivers MD - 09/12/2018 7:29 AM EDT Neurology Progress Note Patient Name: Savannah Moore Admit Date: 09/05/2018 Primary Attending: Taya Jimenez MD Patient ID: Savannah Moore is a 27 y.o. 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 Headache team consulted for further assistance with headache management. Interval History - She feels that her headaches are back to her typical baseline today - She continues on standing tylenol - Gabapentin was increased to previous home dose of 400mg TID and Depacon 500mg TID will start today. She is on tizanidine 4mg TID and Mag oxide 400mg BID Kept tizanidine 4mg TID They did schedule Depacon 500mg TID to start today She is on mag oxide 400mg BID Medications: Scheduled Meds: ??? valproate sodium 500 mg Intravenous Q8H ??? lisinopril 5 mg Oral Daily ??? gabapentin 400 mg Oral TID ??? magnesium sulfate 1 g Intravenous Daily ??? ondansetron 4 mg Intravenous Q8H SAMIR Or ??? ondansetron 4 mg Oral Q8H SAMIR ??? prochlorperazine 10 mg Intravenous Q6H ??? pantoprazole 80 mg Oral Daily ??? lidocaine 1 patch Transdermal Q24H And ??? lidocaine 1 patch Transdermal Q24H ??? tiZANidine 4 mg Oral TID ??? metoprolol 12.5 mg Oral Q6H SAMIR ??? clopidogrel 75 mg Oral Daily ??? cyanocobalamin (vitamin B-12) 1,000 mcg Oral Daily ??? methadone (Methadose) oral liquid 120 mg Oral Daily ??? melatonin 6 mg Oral Nightly ??? fluticasone propionate 2 puff Inhalation BID ??? sodium chloride 0.9 % 5 mL Intravenous BID ??? senna-docusate 2 tablet Oral BID ??? polyethylene glycol (MIRALAX)oral powder 17 g Oral Daily ??? enoxaparin 40 mg Subcutaneous Nightly ??? aspirin 81 mg Oral Daily ??? nicotine 1 patch Transdermal Daily And ??? Patch Verification 1 patch Transdermal BID And ??? nicotine 1 patch Transdermal Daily Continuous Infusions: ??? sodium chloride 0.9% 1,000 mL (09/12/18 0500) PRN Meds:.lactulose, calcium carbonate, docusate sodium, albuterol, sodium chloride 0.9 %, lidocaine, magnesium hydroxide, bisacodyl, labetalol, enalaprilat Physical Exam: Vitals: Temp: [36.4 ??C (97.5 ??F)-36.6 ??C (97.9 ??F)] Heart Rate: [64-74] Resp: [13-20] BP: (110-136)/(68-91) SpO2: [95 %-99 %] Heart Rate from SpO2: [53 bpm-74 bpm] Constitutional: Patient of apparent stated age, no acute distress Neuro: MS: Alert, oriented, clear language, no dysarthria, follows commands CN: Pupils equal on obesrvation, EOMI, no gross facial asymmetry, tongue is midline during conversation Motor: All four extremities are at least antigravity Coordination: no ataxia noted on ambulation Gait: Deferred Labs: Recent Results (from the past 24 hour(s)) Rapid Drug Screen, Urine (CAM Request) Result Value Ref Range CAM Conf Requested No CAM Requested See Comment Rapid Drug Screen w/o Confirmation, Urine Result Value Ref Range U Barbiturates Screen None Detected None Detected U Benzodiazepines Screen None Detected None Detected U Cocaine Screen None Detected None Detected U Methadone Metabolites Screen Presumptive Pos (A) None Detected U Opiate Screen None Detected None Detected U Cannabinoid Screen None Detected None Detected U Oxycodone Screen None Detected None Detected U Buprenorphine Screen None Detected None Detected U Fentanyl Screen None Detected None Detected U Tricyclics Screen None Detected None Detected U Ethanol Screen None Detected None Detected U Amphetamines Screen None Detected None Detected U Adulterants Screen None Detected None Detected Urinalysis with reflex Culture Result Value Ref Range Glucose UA Negative Negative mg/dL Protein UA Negative Negative mg/dL Bilirubin UA Negative Negative mg/dL Urobilinogen UA Normal Normal mg/dL pH UA 6.0 5.0 - 8.0 Blood UA Negative Negative mg/dL Ketones UA Negative Negative mg/dL Nitrite UA Negative Negative Leukocytes UA Negative Negative mcL Appearance UA Clear Clear Spec Calder UA 1.010 1.002 - 1.030 Color UA Straw Yellow Culture Reflexed No Comprehensive metabolic panel (non-fasting) Result Value Ref Range Glucose Lvl 78 65 - 199 mg/dL BUN 17 8 - 18 mg/dL Creatinine 1.13 0.70 - 1.20 mg/dL Sodium 143 135 - 145 mmol/L Potassium 4.6 3.5 - 5.0 mmol/L Chloride 105 98 - 107 mmol/L CO2 29 22 - 31 mmol/L Anion Gap 9 5 - 15 mmol/L Calcium 8.9 8.5 - 10.5 mg/dL Total Protein 6.6 6.1 - 8.0 gm/dL Albumin 3.5 3.2 - 5.2 gm/dL AST 22 0 - 30 unit/L ALT 37 (H) 0 - 30 unit/L Alk Phos 110 (H) 40 - 104 unit/L Total Bilirubin 0.2 0.2 - 1.3 mg/dL eGFR 66 >=60 mL/min/1.73 m?? eGFR 77 >=60 mL/min/1.73 m?? Assessment / Recommendations: Savannah Moore is a 27 y.o. 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 Headache team consulted for further assistance with headache management. Patient has a long standing history of headaches, that have been daily since age 14, with fluctuating frequency of her severe headaches. Headaches are associated with prior visual aura, with dizziness, photo/phonophobia, nausea and emesis occasionally. Overall, headaches have been unchanged in characteristics, with number of severe headache days increasing over the last 6 months or so. ?? Patient meets ICHD-3 criteria for chronic migraine with and without aura. She is on no agents for headache prevention, with and medication overuse headache (naproxen and tylenol), which are likely contributing to the worsening of her headache symptoms. ?? It is unclear what position the LP was performed (given her body habitus, likely seated), and givenher reassuring eye examination that does not reveal evidence of papilledema, would not pursue a repeat LP for IIH at this time, unless an LP is required for other diagnostic purposes this admission. ?? Given her recent infarcts of unknown origin, certain medications, including DHE and triptans are contraindicated. ?? Once she has completed her work up and is discharged, she will follow up in the headache clinic with plan to start botox for prevention. In the future, could consider a CGRP MAB. ?? While inpatient, would continue depakote 500mg IV TID standing and magnesium 400mg BID, tizanidine 4mg TID, and gabapentin 400mg TID. If needed, hydroxyzine 25-50mg TID could also be initiated. ?? We would discontinue patient's tylenol, and avoid further medications that can cause medication overuse headache at this time (ibuprofen, toradol, etc). Headache management while inpatient - Depakote 500mg IV TID - Magnesium 400mg BID - Gabapentin to 400mg TID - Consider starting hydroxyzine 25-50mg TID - Continue tizanidine 4mg TID - Triptans and DHE are contraindicated in the setting of ischemic stroke, CAD or severe PVD ?? # Headache management at discharge - Will place a PA for Botox for headache prevention outpatient - We will schedule a headache clinic appointment with Dr. Dior. - Please continue Magnesium 400mg BID, gabapentin 400mg TID and tizanidine 4mg TID for headache prevention at this time. - For acute treatment, please initiate hydroxyzine 25-50mg TID PRN for headache, nausea and anxiety ?? # Regarding stroke/Headache etiology - Patient does use Marijuana BID to TID, which can increase risk of RCVS. Could consider repeat CTAhead (as vasospasm can be missed in the acute period) vs cerebral angiogram if already planned for further stroke work up - No LP required to look for opening pressure at this juncture, from headache perspective given herreassuring fundoscopic exam. Stefanie Rivers MD Headache Fellow [facility] [place] Neurology Associated attestation - Trisha Dior MD - 09/12/2018 4:43 PM EDT Neurology Attending Note Trisha Dior MD (Pg [phone]) I certify that I have seen and examined discussed Savannah Moore on 09/12/[address] Rivers, Headache Fellow. The note reflects the patient's history of presentation, physical findings. The assessment and plan were formulated together in discussion and I have personally reviewed all studies. Patient reports substantial headache improvement today. She is back to her baseline headache of 6 out of 10 in intensity. We discussed that her headaches are a chronic problem and she will need management for chronic migraine. This will need to be done in an outpatient setting. We will request a prior authorization for Botox injections. We considered the option of a monoclonal antibody against CGRP however because it finds CGRP which is active and vasoconstriction we would like to avoid it in the acute stroke setting. She should restart the gabapentin that she was previously prescribed. She can continue the tizanidine PRN We will arrange follow-up in the outpatient clinic in the next month. * Plan of Care - Mandeep Boothe RN - 09/12/2018 5:23 AM EDT Problem: Patient Care Overview Goal: Plan of Care Review Outcome: Ongoing (Interventions Implemented as Appropriate) 09/12/18 0519 Coping/Psychosocial Plan Of Care Reviewed With patient Plan of Care Review Progress progress toward functional goals as expected OUTCOME EVALUATION NOTE: OUTCOME SUMMARY: Pt is A/O x4, other than CUADRA, neuro checks benign, pt has 5/5 strengths, observed getting up out of bed to go to with steady gait and does not use her cane. LS CTA, sats>95% on RA. Telemetry monitored, NSR, denies cp, VSS. +BS, denies N/V/D, voiding well. Pain controlled with scheduled Tylenoland gabapentin. Pt has been NPO since midnight for testing. PLAN MOVING FORWARD: Monitor vitals/neur0 status and telemetry. EVELIO, Liver study * Plan of Care - Saud Sinclair RN - 09/11/2018 7:03 PM EDT Problem: Patient Care Overview Goal: Plan of Care Review Outcome: Ongoing (Interventions Implemented as Appropriate) 09/11/18 8657 Coping/Psychosocial Plan Of Care Reviewed With patient Plan of Care Review Progress progress toward functional goals as expected OUTCOME EVALUATION NOTE: OUTCOME SUMMARY: Pt AOx4 and AVSS. C/o of fatigue from the late morning on. Family visited in the late morning. Pt went down for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 Dilaudid Tramadol Morphine Marijuana Ativan(lorazepam) Xanax(alprazolam) Spring TMS Cefaly headband (acute/preventitive) (dual) nVNS/[place]ammacore Past Medical History: Past Medical History: Diagnosis Date ??? ADD (attention deficit disorder) 09/18/2014 ??? Back pain ??? Chronic pain syndrome 01/15/2014 ??? Depression ??? Fibromyalgia 01/15/2014 ??? Heart palpitations 01/15/2014 ??? Kidney stones ??? Migraines 01/15/2014 ??? Patient non adherence ??? Scoliosis 09/18/2014 ??? Seizures Medications: Current Facility-Administered Medications Medication Dose Route Frequency Provider Last Rate Last Dose ??? prochlorperazine (COMPAZINE) injection 10 mg 10 mg Intravenous Q6H Diane Harris MD 10 mg at 09/10/18 0812 ??? pantoprazole (PROTONIX) tablet 80 mg 80 mg Oral Daily Diane Harris MD 80 mg at 09/10/18 0815 ??? calcium carbonate (Tums) chewable tablet 500-1,000 mg 500-1,000 mg Oral Q4H PRN Carlos Miranda MD 1,000 mg at 09/10/18 1556 ??? lidocaine (LIDODERM) 5 % patch 1 patch 1 patch Transdermal Q24H Gabby Abel MD 1 patch at 09/10/18 0815 And ??? lidocaine (LIDODERM) 5 %(700 mg/patch) Patch Removal 1 patch Transdermal Q24H Gabby Abel MD ??? tiZANidine (ZANAFLEX) tablet 4 mg 4 mg Oral TID Gabby Abel MD 4 mg at 09/10/18 1553 ??? ondansetron (ZOFRAN) injection 4 mg 4 mg Intravenous Q8H PRN Hamlet Saleh MD 4 mg at09/09/18 0700 Or ??? ondansetron (ZOFRAN) tablet 4 mg 4 mg Oral Q8H PRN Hamlet Saleh MD ??? metoprolol (LOPRESSOR) tablet 12.5 mg 12.5 mg Oral Q6H SAMIR Gabby Abel MD 12.5 mg at 09/10/18 1703 ??? lisinopril (PRINIVIL;ZESTRIL) tablet 5 mg 5 mg Oral Daily Gabby Abel MD 5 mg at 09/10/18 0813 ??? clopidogrel (PLAVIX) tablet 75 mg 75 mg Oral Daily Diane Harris MD 75 mg at 09/10/18 0813 ??? magnesium oxide (MAG-OX) tablet 400 mg 400 mg Oral BID Diane Harris MD 400 mg at 816 ??? cyanocobalamin (vitamin B-12) tablet 1,000 mcg 1,000 mcg Oral Daily Diane Harris MD 1,000mcg at 09/10/18 0813 ??? acetaminophen (TYLENOL) tablet 650 mg 650 mg Oral Q6H Diane Harris MD 650 mg at 09/10/18 1553 ??? methadone (Dolophine) (10 mg/mL) oral liquid 120 mg 120 mg Oral Daily Diane Harris MD 120mg at 09/10/18 0815 ??? melatonin tablet 6 mg 6 mg Oral Nightly Hamlet Saleh MD 6 mg at 09/09/182004 ??? docusate sodium (COLACE) capsule 100 mg 100 mg Oral Daily PRN Diane Harris MD ??? fluticasone propionate (FLOVENT) 220 mcg/actuation inhaler 2 puff 2 puff Inhalation BID Diane Harris MD 2 puff at 09/10/18 0824 ??? gabapentin (NEURONTIN) capsule 100 mg 100 mg Oral TID Diane Harris MD 100 mg at 09/10/18 1553 ??? albuterol (PROVENTIL) nebulizer solution 2.5 mg 2.5 mg Nebulization Q6H PRN Diane Harris MD ??? sodium chloride 0.9 % flush 5 mL 5 mL Intravenous BID Diane Harris MD 5 mL at 09/10/18 1000 ??? sodium chloride 0.9 % flush 5-20 mL 5-20 mL Intravenous Q1 Min PRN Diane Harris MD ??? lidocaine (XYLOCAINE) 10 mg/mL (1 %) injection 3 mg 0.3 mL Subcutaneous Once PRN Diane Harris MD ??? senna-docusate (PERICOLACE) 8.6-50 mg per tablet 2 tablet 2 tablet Oral BID Diane Harris MD 2 tablet at 09/10/18 0812 ??? polyethylene glycol (MIRALAX) packet 17 g 17 g Oral Daily Diane Harris MD 17 g at 09/09/18 0807 ??? magnesium hydroxide (Milk of Magnesia) (240 mg/mL) oral liquid 10 mL 10 mL Oral Nightly PRN Diane Harris MD ??? bisacodyl (DULCOLAX) suppository 10 mg 10 mg Rectal Daily PRN Diane Harris MD ??? labetalol (NORMODYNE,TRANDATE) injection 10-20 mg 10-20 mg Intravenous Q15 Min PRN Diane Harris MD ??? enalaprilat (VASOTEC) injection 1.25 mg Intravenous Q6H PRN Diane Harris MD ??? sodium chloride 0.9% infusion 1,000 mL Intravenous Continuous Diane Harris MD 100 mL/hr at 09/10/18 1807 1,000 mL at 09/10/18 180 ??? enoxaparin (LOVENOX) injection 40 mg 40 mg Subcutaneous Nightly Diane Harris MD 40 mg at 09/09/182002 ??? aspirin EC tablet 81 mg 81 mg Oral Daily Diane Harris MD 81 mg at 09/10/18 0813 ??? ketorolac (TORADOL) injection 15 mg 15 mg Intravenous Q6H PRN Diane Harris MD 15 mg at 09/10/18 1418 ??? nicotine (NICODERM CQ) 14 mg/24 hr patch 14 mg 1 patch Transdermal Daily Diane Harris MD 14 mg at 09/09/182001 And ??? nicotine (NICODERM CQ) 14 mg/24 hr patch Patch Verification 1 patch Transdermal BID Diane Harris MD And ??? nicotine (NICODERM CQ) 14 mg/24 hr patch Patch Removal 1 patch Transdermal Daily Diane Harris MD Allergy: Allergies Allergen Reactions ??? Bee Pollen Anaphylaxis ??? Meperidine Hcl Anaphylaxis and Other (See Comments) flushing, respiratory trouble ??? [place] Other (See Comments) Flu like sx ??? Zoloft [Sertraline] Other (See Comments) Flu like sx Family History: Family History Problem Relation Age [...] ??? Migraines Brother ??? Migraines Maternal Aunt Social History: Social History Socioeconomic History ??? Marital status: Single Spouse name: Not on file ??? Number of children: Not on file ??? Years of education: Not on file ??? Highest education level: Not on file Occupational History ??? Not on file Social Needs ??? Financial resource strain: Not on file ??? Food insecurity: Worry: Not on file Inability: Not on file ??? Transportation needs: Medical: Not on file Non-medical: Not on file Tobacco Use ??? Smoking status: Former Smoker Packs/day: 0.00 Years: 8.00 Pack years: 0.00 Types: Cigarettes ??? Smokeless tobacco: Never Used ??? Tobacco comment: quit apr 2015 Substance and Sexual Activity ??? Alcohol use: Not on file Comment: seldom ??? Drug use: Yes Types: Marijuana ??? Sexual activity: Yes Partners: Male Lifestyle ??? Physical activity: Days per week: Not on file Minutes per session: Not on file ??? Stress: Not on file Relationships ??? Social connections: Talks on phone: Not on file Gets together: Not on file Attends anabaptism service: Not on file Active member of club or organization: Not on file Attends meetings of clubs or organizations: Not on file Relationship status: Not on file ??? Intimate partner violence: Fear of current or ex partner: Not on file Emotionally abused: Not on file Physically abused: Not on file Forced sexual activity: Not on file Other Topics Concern ??? Not on file Social History Narrative ??? Not on file Review of systems: Constitutional: No fevers or chills Eyes: No vision changes, no diplopia, no blurry vision ENT: No rhinorrhea or pharyngitis, no meningismus CV: No chest pain or palpitations Resp: No cough, no shortness of breath GI: No nausea, vomiting, diarrhea or constipation : No dysuria, no incontinence Heme: No bleeding or bruising Endo: No diabetes or thyroid disease Neuro: See HPI Psych: No depression, normal sleep [x] Review of systems otherwise negative Physical Exam: Most Recent Vitals: 09/10/18 1610 BP: 120/73 Pulse: 61 Resp: 16 Temp: 36.6 ??C (97.9 ??F) SpO2: 96% HEENT: oral mucosa moist, no thrush Musk: No tenderness to palpation of occipital notch or paracervical musculature Skin: No obvious rashes on exposed skin Neuro exam: MSE: alert, oriented to person, place, time, situation, follows simple and complex commands, speechfluent with no dysarthria CN: PERRL (pupils 2-3mm and reactive - got ativan), no nystagmus, EOMI appear intact on examinationtodayt, visual ching intact to confrontation roughly appear intact although poor participation as eyes had to be held open, facial sensation intact, no facial droop or asymmetry, tongue protrudes midline, uvula and palate elevate symmetrically, trap symmetric strength bilaterally Fundoscopic examination: No papilledema noted Motor: RUE 5/5 throughout LUE 5/5 throughout except 5-/5 (difficult to assess if just give way) on deltoid RLE 5/5 throughout except 4+/5 on HF and 4/5 on knee flexion LLE 5/5 throughout Normal bulk and tone Left arm drifts down mildly with eyes shut about 1 inch, and then stops without pronation Reflexes Toes down bilaterally Sensation: decreased sensation 75% of normal on the left side Coordination: intact finger nose finger without evidence of dysmetria Gait: deferred Labs: No results found for this or any previous visit (from the past 24 hour(s)). Diagnostic Tests and Imaging: See HPI above Assessment and plan: Savannah Moore is a 27 y.o. 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 Headache team consulted for further assistance with headache management. Patient has a long standing history of headaches, that have been daily since age 14, with fluctuating frequency of her severe headaches. Headaches are associated with prior visual aura, with dizziness, photo/phonophobia, nausea and emesis occasionally. Overall, headaches have been unchanged in characteristics, with number of severe headache days increasing over the last 6 months or so. Patient meets ICHD-3 criteria for chronic migraine with and without aura. She is on no agents for headache prevention, with and medication overuse headache (naproxen and tylenol), which are likely contributing to the worsening of her headache symptoms. It is unclear what position the LP was performed (given her body habitus, likely seated), and givenher reassuring eye examination that does not reveal evidence of papilledema, would not pursue a repeat LP for IIH at this time, unless an LP is required for other diagnostic purposes this admission. Given her recent infarcts of unknown origin, certain medications, including DHE and triptans are contraindicated. Once patient no longer requires permissive hypertension for management of her recent infarcts, would consider addition of Candesartan 16mg daily for headache prevention. Once she has completed her work up and is discharged, can consider further options for prevention, including botox vs MAB for headache prevention. While inpatient, would re-trial depakote 500mg IV TID standing and magnesium 1g daily in addition to tizanidine 4mg TID. Also, her gabapentin could be increased further to her home dose (400mg TID), and if needed, hydroxyzine 25-50mg TID could also be initiated. We would discontinue patient's tylenol, and avoid further medications that can cause medication overuse headache at this time (ibuprofen, toradol, etc). Can consider an SPG block tomorrow if needed. # Headache management while inpatient - Depakote 500mg IV TID - Magnesium 1g IV daily - Increase gabapentin to 400mg TID - Consider starting hydroxyzine 25-50mg TID - Continue tizanidine 4mg TID - Can consider SPG block tomorrow - Once patient no longer requires permissive hypertension, would initiate Candesartan 16mg daily for headache prevention - Triptans and DHE are contraindicated in the setting of ischemic stroke, CAD or severe PVD # Headache management at discharge - Can consider initiation of botox vs CGRP MAB (Emgality given [place] Medicaid insurance) for headache prevention # Regarding stroke/Headache etiology - Patient does use Marijuana BID to TID, which can increase risk of RCVS. Could consider repeat CTAhead (as vasospasm can be missed in the acute period) vs cerebral angiogram if already planned for further stroke work up - No LP required to look for opening pressure at this juncture, from headache perspective given herreassuring fundoscopic exam. Associated attestation - Trisha Dior MD - 09/11/2018 5:18 AM EDT Neurology Attending Note Trisha Dior MD (Pg [phone]) I certify that I have seen and examined discussed Savannah Moore on 09/10/[address] Rivers, Headache Fellow. The note reflects the patient's history of presentation, physical findings. The assessment and plan were formulated together in discussion and I have personally reviewed all studies. * Plan of Care - Melida Crawford, OT - 09/10/2018 11:45 AM EDT Occupational Therapy Treatment Note Treatment Number OT: 2 Patient Dx: Savannah Moore is a [address] of Dr[address] Meagan Garza MD, admitted on 09/05/2018 with a PMH??chronic migraines (since age 10),??IVDU and opiate dependence (17 months sober, on methadone), depression, fibromyalgia, severe scoliosis (s/p surgical correction with Tejeda Connor),??AV node ablation for SVT in 2014, PTSD,??unruptured cerebral aneurysm s/p coiling??(2015), chronicpain,??and??hepatitis C??(untreated)??who presents as a transfer from [facility] today for acute ischemic stroke. Precautions/Special Considerations: fall risk, left sided weakness, vision sensitivity and refer toOphthalmolgy Interval History: Continuing CUADRA and sensitivity to light. S: I have had memory issues before. O: Patient seen for therapeutic activities and demonstrated the following: ?? Functional Mobility:Patient mobilizing in/out of bathroom with her cane Mod I and assistance forIV pole. ?? ADL Training: Pt able to don socks independently sitting EOB. Reviewed tub shower transfer with use of shower chair. Patient decline need to practice. Reviewed need for supervision for showering. ?? B UE ROM/Exercises: Reviewed fine motor exercises for left UE and patient using putty appropriately. Patient performed 10 reps of pinching, squeezing and lateral pinch of putty. ?? Cognition: ?? Behavior / Mood: alert and cooperative ?? Alert and oriented to: person, place, time and situation ?? Follows commands: 100% of the time ?? Attention: WFL ?? Safety awareness: WFL ?? STM decreased and able to remember 1/3 random words ?? Executive functioning intact (able to draw a picture of a clock) ?? Vision:Patient continues to wear sunglasses, however able to draw clock accurately ?? Endurance:Fair Pain: C/O CUADRA Education: Pt/family/caregiver education ongoing regarding: Role of occupational therapy/rehabilitation, ADL, Safety, Functional Mobility and Recommendations. Staff Communication: Patient status, treatment, and mobility recommendations discussed with nursing/other staff. ASSESSMENT: Pt mobilizing Mod I for ADLS with some decrease in activity tolerance noted. Patient has some decrease in STM, however she reports she had this SLPS. Patient receptive to education on exercises for UE and demonstrated ability to participate in exercises. Pt will benefit from ongoing therapeutic interventions to achieve pt's and therapy goals Anticipated Discharge Disposition: home with assist, home with home health Equipment Recommendations: Use of chair in shower. Recommend Psychiatry consult. Daily schedule / Staff Recommendations: home with VNA Occupational Therapy Goals: Goals: To be achieved by D/C. 1. Patient will be independent with HEP for increasing left hand strength/FM skill (MET). 2. Patient will be supervision with tub transfer (MET). Therapy Frequency: monitor Total Evaluation Minutes, Occupational Therapy: 16(therapeutic functional activity) Pager: [phone] MELIDA CRAWFORD OT Occupational Therapy Rehabilitation Department * Plan of Care - Ayden Toscano, RN - 09/10/2018 4:40 AM EDT Problem: Patient Care Overview Goal: Plan of Care Review Outcome: Ongoing (Interventions Implemented as Appropriate) 09/09/1852 09/09/182032 Coping/Psychosocial Plan Of Care Reviewed With -- patient Plan of Care Review Progress progress toward functional goals as expected -- OUTCOME EVALUATION NOTE: OUTCOME SUMMARY: Sleeping between care--Current pain med regimen appears to have been effective this shift-----OOB to bathroom PRN----No s/s of any new stroke issue--- PLAN MOVING FORWARD: NPO since midnight for MRI/EVELIO---- INDIVIDUALIZED FALL PREVENTION INTERVENTIONS: Patient-specific fall risk factors per assessment: [current deficits]: Recent sx of possible stroke--- Assistance [level of assistance required for transfers and ambulation]: SBA/PRN--- Supervision [direct monitoring required during toileting and ADLs]: RN/YAZMIN---- Surveillance [continuous indirect monitoring]: ANNE-MARIE,Telemetry,Q 4HR NEURO checks and hourly rounding--- Patient-specific fall prevention interventions for sensory deficits provided, if applicable: [X] Yes CPG GOAL OUTCOME EVALUATION: Goal: Individualization & Mutuality Outcome: Ongoing (Interventions Implemented as Appropriate) 09/05/18 1436 Mutuality/Individual Preferences What Anxieties, Fears or Concerns Do You Have About Your Health or Care? head ache What Questions Do You Have About Your Health or Care? can i eat What Information Would Help Us Give You More Personalized Care? any would be better thatn the last hospital Goal: Fall Prevention-Safe Patient Handling Outcome: Ongoing (Interventions Implemented as Appropriate) 09/09/18203209/10/18 0200 Serra Fall Risk History of Falling 0 -- Secondary Diagnosis 15 -- Ambulatory Aids 0 -- Intravenous Therapy/Heparin/Saline Lock 20 -- Gait/Transferring 10 -- Mental Status 0 -- Score 45 -- OTHER Serra Fall Risk High -- Restraint Interventions Safety Promotion/Fall Prevention -- safety round/check completed Positioning Body Position -- independent Activity Activity Type -- activity adjusted per tolerance Activity Assistance Provided -- independent Assistive Device Utilized -- none Goal: Infection Control Outcome: Ongoing (Interventions Implemented as Appropriate) 09/09/18 0800 09/10/18 0200 Safety Interventions Isolation Precautions -- standard precautions maintained Infection Prevention -- environmental surveillance performed;personal protective equipment utilized;rest/sleep promoted;single patient room provided Coping Strategies Supportive Measures active listening utilized -- * Plan of Care - Esme Burton RN - 09/09/2018 4:22 PM EDT Problem: Patient Care Overview Goal: Plan of Care Review Outcome: Ongoing (Interventions Implemented as Appropriate) 09/09/18 0852 Coping/Psychosocial Plan Of Care Reviewed With patient Plan of Care Review Progress progress toward functional goals as expected OUTCOME EVALUATION NOTE: OUTCOME SUMMARY: Pt alert and oriented. Able to make needs known. Pt resting comfortably at this time. No facial grimacing nor restlessness noted. Will continue to monitor. PLAN MOVING FORWARD: Evaluate and adjust as needed. INDIVIDUALIZED FALL PREVENTION INTERVENTIONS: Patient-specific fall risk factors per assessment: [current deficits]: Right sided weakness. Assistance [level of assistance required for transfers and ambulation]: pt uses a cane Supervision [direct monitoring required during toileting and ADLs]: Standby assist. Surveillance [continuous indirect monitoring]: Bed in low, locked position. Refused to have bed alarm set. Purposeful hourly rounding. Call light and bedside table within reach. Room clear of clutter. Patient-specific fall prevention interventions for sensory deficits provided, if applicable: N/A CPG GOAL OUTCOME EVALUATION: Ongoing. * Plan of Care - Saud Sinclair RN - 09/09/2018 9:00 AM EDT Problem: Patient Care Overview Goal: Plan of Care Review Outcome: Ongoing (Interventions Implemented as Appropriate) 09/09/18 0852 Coping/Psychosocial Plan Of Care Reviewed With patient Plan of Care Review Progress progress toward functional goals as expected OUTCOME EVALUATION NOTE: OUTCOME SUMMARY: Pt AOx4 and AVSS, although SBP hovered just below the treat parameter of 160. Pt c/o nausea and pain through the shift which was managed well with PRN meds. Replaced the dressing on her R-side PIV. PLAN MOVING FORWARD: Maintain pt safety and surveillance. Cardiac consult on Monday. D/C planning. INDIVIDUALIZED FALL PREVENTION INTERVENTIONS: Patient-specific fall risk factors per assessment: independent Assistance: Independent, Supervision: Independent, Eyes on, Surveillance: Bed locked in low position, call robert within reach, purposeful hourly rounding, bed/chair alarm on, clutter free room, Patient-specific fall prevention interventions for sensory deficits provided: N/A CPG GOAL OUTCOME EVALUATION: Continue care plan as documented. Stroke Education Modifiable risk factors (Ischemic & Hemorrhagic): Checked box [x] indicates present [x ] Hypertension [ ] Use of Oral Contraceptive [ x] Smoker (or exposure to cigarette smoke) [ ] Poor Diet/Nutrition [ ] Diabetes [ ] Physical Inactivity [ x] Hyperlipidemia [ ] Obesity [ ] Atrial Fibrillation [ ] Sleep Apnea [ ] Asymptomatic carotid artery stenosis [ ] Post-menopausal hormone therapy (Hemorrhagic stroke specific) [ ] High alcohol intake [ ] Anticoagulation [ ] Use of sympathomimetic drugs (i.e. cocaine, amphetamine, methamphetamine) Patient Education Provided: Checked box [x] indicates done [ ] Ischemic, Hemorrhagic, TIA education packet provided [ ] Supplemental Personalized Educational Material added to packet, including: [ ] Personal Risk Factors [ ] Warning signs of stroke [ ] Activation of an emergency medical system [ ] Need for follow-up after discharge [ ] Medications prescribed The above items were reviewed in detail today. Patient/family expresses understanding of the likelycauses of this stroke, personal risk factors, diagnostic considerations, hospital course thus far, and treatment plan going forward. Patient and/or family members have received personalized stroke edu cational materials to review and were allowed time for questions and answers. There are no further questions at this time. They were encouraged to review the educational handouts provided and write down any questions that may arise for the vascular neurology team to address at a later time. Patient discharge plans include: [ ] home discharge [ ] Acute Rehab [ x] home with family assistance [ ] Other [ x] home with VNA services [ ] Unknown at this time in hospital course [ ] Snf Facility * Plan of Care - Jasbir Obrien RN - 09/08/2018 10:30 AM EDT Problem: Patient Care Overview Goal: Plan of Care Review Outcome: Ongoing (Interventions Implemented as Appropriate) 09/08/18 1017 Coping/Psychosocial Plan Of Care Reviewed With patient OUTCOME EVALUATION NOTE: OUTCOME SUMMARY: Pt to have cardiac work up on Monday Pt continues to Have nausea and pain in left shoulder. Medication given for both PLAN MOVING FORWARD: Continue plan and await results INDIVIDUALIZED FALL PREVENTION INTERVENTIONS: Patient-specific fall risk factors per assessment: Pt is independent Assistance: Independent, Supervision: Independent, Eyes on Surveillance: Bed locked in low position, call robert within reach, purposeful hourly rounding, , clutter free room, Patient-specific fall prevention interventions for sensory deficits provided: NO CPG GOAL OUTCOME EVALUATION: Continue care plan as documented. Stroke Education Modifiable risk factors (Ischemic & Hemorrhagic): Checked box [x] indicates present [ ] Hypertension [ ] Use of Oral Contraceptive [ ] Smoker (or exposure to cigarette smoke) [ ] Poor Diet/Nutrition [ ] Diabetes [X ] Physical Inactivity [ ] Hyperlipidemia [X ] Obesity [ ] Atrial Fibrillation [X ] Sleep Apnea [ ] Asymptomatic carotid artery stenosis [ ] Post-menopausal hormone therapy (Hemorrhagic stroke specific) [ ] High alcohol intake [ ] Anticoagulation [ ] Use of sympathomimetic drugs (i.e. cocaine, amphetamine, methamphetamine) Patient Education Provided: Checked box [x] indicates done [ ] Ischemic, Hemorrhagic, TIA education packet provided [ ] Supplemental Personalized Educational Material added to packet, including: [ ] Personal Risk Factors [x ] Warning signs of stroke [ ] Activation of an emergency medical system [ x] Need for follow-up after discharge [x ] Medications prescribed The above items were reviewed in detail today. Patient/family expresses understanding of the likelycauses of this stroke, personal risk factors, diagnostic considerations, hospital course thus far, and treatment plan going forward. Patient and/or family members have received personalized stroke edu cational materials to review and were allowed time for questions and answers. There are no further questions at this time. They were encouraged to review the educational handouts provided and write down any questions that may arise for the vascular neurology team to address at a later time. Patient discharge plans include: [ ] home discharge [ ] Acute Rehab [ ] home with family assistance [ ] Other [ ] home with VNA services [ ] Unknown at this time in hospital course [ ] Sn[facility] Facility * Plan of Care - Amanda Alvarez RN - 09/08/2018 3:20 AM EDT Problem: Patient Care Overview Goal: Plan of Care Review Outcome: Ongoing (Interventions Implemented as Appropriate) 09/08/18 0310 Coping/Psychosocial Plan Of Care Reviewed With patient Plan of Care Review Progress progress toward functional goals as expected OUTCOME EVALUATION NOTE: OUTCOME SUMMARY: Patient complains of headache of a 10 while talking on the phone to brother. She asked me to wake her up when her next prn of toradol for pain was due. I explained that if you are asleep then the pain must be tolerable so I do not wake patients to give prn medication. She set her phone alarm and woke up when it was due. She ambulated to the bathroom with her cane and min assistance. Will continueto monitor. PLAN MOVING FORWARD: Discharge home. INDIVIDUALIZED FALL PREVENTION INTERVENTIONS: Patient-specific fall risk factors per assessment: dizziness; generalized weakness Assistance: Independent, SBA, 1-2 assist, FWW, gait belt, Stand & Pivot, Mechanical Lift, Bedrest w/ Q2hr turns Supervision: Independent, Eyes on, Arms reach, Hands on Surveillance: Bed locked in low position, call robert within reach, purposeful hourly rounding, clutter free environment, bed/chair alarm on, family at bedside Patient-specific fall prevention interventions for sensory deficits provided: Yes CPG GOAL OUTCOME EVALUATION: Continue care plan as documented. * Consult Note - Yang Branham MD - 09/07/2018 3:49 PM EDT Inpatient Cardiology Consult Note Date of Consultation: 09/07/2018 Admit Date: 09/05/2018 Place of Service: [facility] Responsible Attending: Dr. Branham Hospital Day 2 days Reason for Consult: We are seeing Savannah A Teresa at the request of Dr. Garza. I have reviewedthe available records, interviewed and examined the patient. New cardiomyopathy Active Problems: Active Hospital Problems Diagnosis ??? Stroke Resolved Hospital Problems No resolved problems to display. HPI: Savannah Moore is a 27 y.o. 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 Cariology is consulted regarding new finding of cardiomyopa thy. The patient reports recent worsening headaches. Due to this, she presented to outside hospital where imaging with MRI and MRV showed small multiple small foci of recent/acute ischemic changes in the right cerebral hemisphere involving the right parietal, posterior frontal, and occipital lobe. She was transferred to [facility] neurology for further work-up. Further evaluation with echocardiogram showed mildly dilated LV with ejection fraction of 45% and diffuse hypokinesis, as well as PFO. There was no significant other disease. Her ECG shows normal sinus rhythm with incomplete right bundle branch block. Work-up with ALFREDO rheumatoid factor has been negative. On discussion with her, she reports 2-month history of atypical sharp chest pain that is not associated with exertion. She also reports episodes of shortness of breath that did not seem associated with exertion. She also reports 80 pound weight gain in the past 2 years. She feels that she has some orthopnea and lower extremity edema but denies paroxysmal nocturnal dyspnea, presyncope or syncope. She does have family history of heart disease with her father dying from PA at age 52. 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 She denies recent viral symptoms. Past Medical History: Diagnosis Date ??? ADD [...] Procedure Date: 06/19/2007 ??? LITHOTRIPSY kidney stones Allergies Allergen Reactions ??? Bee Pollen Anaphylaxis ??? Meperidine Hcl Anaphylaxis and Other (See Comments) flushing, respiratory trouble ??? Crozet Other (See Comments) Flu like sx ??? Zoloft [Sertraline] Other (See Comments) Flu like sx Out-Patient Medications: Medications Prior to Admission Medication Sig Dispense Refill Last Dose ??? PARoxetine (PAXIL) 20 mg Tablet Take 20 mg by mouth every morning. 09/05/2018 ??? PROAIR HFA 90 mcg/actuation HFA Aerosol Inhaler 09/05/2018 ??? docusate sodium (COLACE) 100 mg Capsule TAKE ONE CAPSULE BY MOUTH TWICE A DAY 1 09/05/2018 ??? FLOVENT HFA 220 mcg/actuation HFA Aerosol Inhaler 09/05/2018 ??? omeprazole (PRILOSEC) 40 mg Capsule, Delayed Release(E.C.) TAKE ONE CAPSULE BY MOUTH EVERY DAY 3 09/05/2018 ??? gabapentin (NEURONTIN) 400 mg Capsule Take 1 capsule by mouth 3 times daily. 84 capsule 3 09/05/2018 ??? acetaminophen (TYLENOL) 325 mg Tablet Take 2 tablets by mouth every 4 hours as needed for Pain (mild pain). 30 tablet 1 09/05/2018 ??? calcium carbonate (TUMS) 200 mg calcium (500 mg) Tablet, Chewable Take 2 tablets by mouth dailyas needed. 09/04/2018 In-Patient Medications: ??? magnesium oxide 400 mg Oral BID ??? cyanocobalamin (vitamin B-12) 1,000 mcg Oral Daily ??? acetaminophen 650 mg Oral Q6H ??? methadone (Methadose) oral liquid 120 mg Oral Daily ??? melatonin 6 mg Oral Nightly ??? fluticasone propionate 2 puff Inhalation BID ??? gabapentin 100 mg Oral TID ??? pantoprazole 20 mg Oral Daily ??? sodium chloride 0.9 % 5 mL Intravenous BID ??? senna-docusate 2 tablet Oral BID ??? polyethylene glycol (MIRALAX)oral powder 17 g Oral Daily ??? enoxaparin 40 mg Subcutaneous Nightly ??? aspirin 81 mg Oral Daily ??? nicotine 1 patch Transdermal Daily And ??? Patch Verification 1 patch Transdermal BID And ??? nicotine 1 patch Transdermal Daily ??? sodium chloride 0.9% 1,000 mL (09/07/18 0144) Family History: Family History Problem Relation Age [...] ??? Migraines Brother ??? Migraines Maternal Aunt Social History: Social History Socioeconomic History ??? Marital status: Single Spouse name: Not on file ??? Number of children: Not on file ??? Years of education: Not on file ??? Highest education level: Not on file Occupational History ??? Not on file Social Needs ??? Financial resource strain: Not on file ??? Food insecurity: Worry: Not on file Inability: Not on file ??? Transportation needs: Medical: Not on file Non-medical: Not on file Tobacco Use ??? Smoking status: Former Smoker Packs/day: 0.00 Years: 8.00 Pack years: 0.00 Types: Cigarettes ??? Smokeless tobacco: Never Used ??? Tobacco comment: quit apr 2015 Substance and Sexual Activity ??? Alcohol use: Not on file Comment: seldom ??? Drug use: Yes Types: Marijuana ??? Sexual activity: Yes Partners: Male Lifestyle ??? Physical activity: Days per week: Not on file Minutes per session: Not on file ??? Stress: Not on file Relationships ??? Social connections: Talks on phone: Not on file Gets together: Not on file Attends anabaptism service: Not on file Active member of club or organization: Not on file Attends meetings of clubs or organizations: Not on file Relationship status: Not on file ??? Intimate partner violence: Fear of current or ex partner: Not on file Emotionally abused: Not on file Physically abused: Not on file Forced sexual activity: Not on file Other Topics Concern ??? Not on file Social History Narrative ??? Not on file Review of Systems: 11 point ROS is either negative or per HPI Physical Exam: Last value Range last 8 hrs Temperature Temp: 36.5 ??C (97.7 ??F) Temp: [36.5 ??C (97.7 ??F)-36.7 ??C (98.1 ??F)] Heart Rate Heart Rate: 84 Heart Rate: [74-84] Blood Pressure BP: 131/78 BP: (131-137)/(74-78) Respiratory Rate Resp: 16 Resp: [16] SpO2 SpO2: 97 % SpO2: [97 %-100 %] No intake or output data in the 24 hours ending 09/07/18 1549 Wt & BMI By Encounter Date Admission (Current) from 09/05/[address] [place] [address] Office Visit from 11/25/2015 in [facility] at [facility] Weight 109.9 kg (242 lb 3.2 oz) 1 09/06/2018 0947 84.8 kg (187 lb) 1 11/25/2015 1422 BMI 42.98 1 09/05/2018 1428 34.3 1 11/25/2015 1422 General: Pleasant female in NAD Eyes: No scleral icterus ENT: Moist mucous membranes Cardiac: RRR, S1/S2 of normal character and amplitude, no murmurs, rubs, and gallops appreciated. Lungs: Clear to auscultation bilaterally Abdominal: Soft and non-tender with no organomegaly. Normal bowel sounds Extremities: No edema Neurology: No gross abnormalities noted Psych: Alert and oriented x3, normal affect I have personally reviewed the imaging below: ECG 09/07/18: NSR 74 bpm, IRBBB ECHO 09/06/18: 1. The left ventricle is mildly dilated.(EDV [...] cardiac valves appear structurally and functionally normal. CTA 09/06/18: IMPRESSION No central branch occlusion. Relative paucity of branches in the right frontal MCA territory could reflect distal branch occlusion, though the cut off is not identified. No evidence for dural venous sinus thrombosis. Pertinent labs: Recent Labs 09/07/18 0744 09/06/18 1001 WBC 8.2 9.3 HGB 11.0* 10.3* HCT 34.0* 32.4* PLATELET 226 192 Recent Labs 09/07/18 0744 09/06/18 1001 NA 141 142 K 4.1 4.1 CL 104 106 CO2 28 26 BUN 17 23* CREATININE 0.77 0.77 Recent Labs 09/07/18 0744 09/06/18 1001 AST 25 16 ALT 33* 28 ALKPHOS 99 102 BILITOT <0.2* <0.2* BILIDIR 0.1 <0.1 Recent Labs 09/07/18 0744 09/06/18 1001 CALCIUM 8.5 8.9 MAGNESIUM 0.73 0.68* PHOS 4.6* 2.8 No results for input(s): INR, PT, PTT in the last 168 hours. No results for input(s): CK, TROPONINT in the last 168 hours. No results found for: PROBNP Assessment/Recommendations: #1 Cardiomyopathy, EF 45% #2 PFO #3 Multifocal strokes The patient is a very pleasant 27-year-old woman with history of AVNRT status post ablation, intracranial aneurysm status post coiling who presented with worsening headaches found to have multifocal strokes and cardiomyopathy with ejection fraction 45% with diffuse hypokinesis and PFO. Given that she has moderate LV dilation on echo, this is likely more of a chronic issue rather than acute. At this point, etiology of cardiomyopathy is unclear but is likely nonischemic in origin rather than ischemic. I think the next step will be to obtain a cardiac MRI to further evaluate the etiology of cardiomyopathy, such as infiltrative disease, myocarditis, etc. We will also obtain nonischemic cardiomyopathy labs such as hepatitis serologies, HIV. I think ischemia is less likely and CTA of the coronaries would be reasonable in the future given that she is low risk. At this point, we can start treating her cardiomyopathy with beta-kaitlin and OVI inhibitor. Etiology of her strokes is also unclear at this time. I think a EVELIO would be reasonable to further look at her PFO as well as to evaluate for thrombus. Given the presence of PFO, would recommend lower extremity venous duplex to rule out clot. Long-term, we might consider PFO closure. Recommendations: 1. Cardiac MRI (I will order ) 2. EVELIO. 3. Bilateral lower extremity venous duplex. 4. Nonischemic cardiomyopathy labs (I will order). 5. Initiate metoprolol tartrate 12.5 mg every 6 hours and lisinopril 5 mg daily. Thank you for the interesting consult and allowing us to participate in the care of your patient. Case discussed with Dr. Branham. x Cardiology will continue to follow. Cardiology will sign off. Please do not hesitate to contact with questions/concerns. Luis M North MD Computer Technology Teacher Pager [phone] CARDIOLOGY STAFF NOTE I have personally interviewed and examined the patient and reviewed appropriate data, including labs, ECGs and other diagnostic studies. I agree with the principal findings documented above. The assessment and plan were formulated in discussion with me. Check LE Duplex scans to rule out DVT. EVELIO appropriate to further define PFO, which may need to be closed in this young woman with multiple embolic-appearing strokes. Cardiomyopathy not necessarily related, it would seem. Dilated LV suggests some chronicity. CardiacMRI reasonable. Check dilated cardiomyopathy lab panel as well and initiate low-dose medical regimen. Yang Branham MD, [facility], [facility] Staff Sample Worker pager [phone] * Plan of Care - Melida Crawford, OT - 09/07/2018 3:48 PM EDT Occupational Therapy Evaluation Patient profile: Savannah Moore is a 27 [address] of [address] Meagan Garza MD, admitted on 09/05/2018 with a PMH??chronic migraines (since age 10),??IVDU and opiate dependence (17 months sober,on methadone), depression, fibromyalgia, severe scoliosis (s/p surgical correction with Tejeda R od),??AV node ablation for SVT in 2014, PTSD,??unruptured cerebral aneurysm s/p coiling??(2015), chronic pain,??and??hepatitis C??(untreated)??who presents as a transfer from [facility] today for acute ischemic stroke. Social History: Patient lives with family who is able to stay with her. Home Setup: There are more than 20 steps to manage. In October she can move with her mother who has one level. Pt has a tub shower. Baseline ADL/Mobility: Pt independent with ADLS and has friends drive for her groceries. Precautions/Special Considerations: fall risk, left sided weakness, vision sensitivity and refer toOphthalmolgy Subjective: I am slower with processing. I have been through this before. Objective: Seen today for OT evaluation. Cognitive Status/Behavior: ?? Behavior / Mood: alert and cooperative ?? Alert and oriented to: person, place, situation and time ?? Follows commands: multi step ?? Attention: Pt attending to questions appropriately ?? Safety awareness: fully aware of deficits Vision & Perception: C/O light sensitivity; able to read name tag and wall clock; refer to Ophthalmology note. Communication: WFL; c/o delay with communication and processing Range of motion, strength, coordination: Hand dominance: right B UE AROM with drift on left. Patient with 3/5 strength on left hand; 4/5 remaining joints on left and 4-5/5 on right with WNL AROM; issued handout on Fine motor and strength activities for left UE LE limitations: weakness in right LE Sensation: diminished light touch on left Activities of Daily Living: Self-feeding: Independent Dressing: Supervision Bathing: Supervision Toileting: Transfer: Supervision Hygiene: Independent sitting Functional Mobility: Supine to sit: Independent Sit to stand: Independent Ambulation: Modified Independent with cane Stand to sit: Independent Sit to supine: Independent Balance: Sitting balance: Good Standing balance:Fair and good with cane Pain: 10/10 in her head Skin: intact Education: patient have been educated on Role of occupational therapy/rehabilitation, ADL, Exercise, Functional Mobility, Recommendations and Discharge planning and verbalize understanding. Patient status, treatment, and mobility recommendations discussed with nursing. Assessment: Pt has been seen for occupational therapy evaluation. Savannah Moore presents with the followingperformance skill deficits and client factors: increased pain, decreased activity tolerance, decreased strength, visual deficits and compromised mobility status. These performance deficits have led to activity limitations and participation restrictions in the following areas of occupation: bathing,home management and community mobility. Pt has mild deficits with processing information and with left UE strength/FM. She is able to perform ADLS Mod I, however she will benefit from review of HEP for left hand. Patient requesting wrist splint and issued splint, however patient asleep when therapist returned. Pt would benefit from further inpatient OT interventions to address performance deficits and maximize participation and independence with occupations of daily living. Equipment needs at discharge: use of shower chair Anticipated Discharge Disposition: (P) home with assist, home with home health(home OT/PT) Other Recommendations: Continue OOB for ADL Other Recommendations: No other consults recommended at this time Goals: To be achieved by D/C. 1. Patient will be independent with HEP for increasing left hand strength/FM skill. 2. Patient will be supervision with tub transfer. Plan: OT: Therapy Frequency: (P) 1-3 more visits Planned OT interventions: Exercise, Safety, Functional Mobility, Recommendations and Discharge planning. Total Evaluation Minutes, Occupational Therapy: (P) 24(evaluation) 2017 OT Evaluation Code Rationale: ?? Diagnosis & Pertinent Co-Morbidities affecting Plan of Care: see PMHx ?? Occupational Profile & Client History: Brief Expanded Extensive x ?? Assessment of Occupational Performance: 1-3 performance deficits 3-5 performance deficits x 5 + performance deficits ?? Clinical Decision Making: Low Moderate High x Clinical decision making of moderate complexity using standardized patient assessment instrument and measurable assessment of functional outcome. Pager: [phone] MELIDA CRAWFORD OT 09/07/2018 Occupational Therapy Rehabilitation Department * Plan of Care - Lynsey Kaiser, PT - 09/07/2018 2:58 PM EDT Physical Therapy Note Patient profile: Savannah Moore??is a??27 y.o.??R handed??female??with a PMH??chronic migraines (since age 10),??IVDU and opiate dependence (17 months sober, on methadone), depression, fibromyalgia, severe scoliosis (s/p surgical correction with Tejeda Connor),??AV node ablation for SVT in 2014, PTSD,??unruptured cerebral aneurysm s/p coiling??(2015), chronic pain,??and??hepatitis C??(untreated)??who presents as a transfer from [facility] today for acute ischemicstroke. Interval History: YASMIN Social History: Lives with a family member in a home where she can stay on one level. There are 18+4 stairs to get to the residence up a hill. In October, patient is planning on moving to her mother's home, where she can stay on the first floor and has fewer steps to enter. Her mom is home and can assist. Functionally, patient is independent at baseline. Precautions/Special Considerations: Fall Risk, L-sided weakness, impaired vision Mobility and Positioning Recommendations: ?? Supervision with cane Subjective: Can you watch me with the cane? Objective: Patient seen for physical therapy and demonstrated the following: Pain: Number Location At rest 10/10 head With activity 10/10 head ?? Pt was issued a cane which was fitted to size ?? Pt was educated and instructed in walking with cane ?? Pt ambulated 75 ft and negotiated a FOS with cane without physical assistance ?? Pt left resting in bed, all needs within reach Education: Use of cane for ambulation and stair management; stair management technique Assessment: Savannah Moore was seen today for physical therapy treatment session for continuation of POC. Pt was issued a cane which was adjusted to size, and instructed in the correct use of canefor ambulation and stair management. Patient was able to walk in the hallway and ascend/descend a flight of stairs with cane with supervision using appropriate technique. No further inpatient PT need identified; will monitor chart until discharge. Discharge Recommendations: Home with home services Consult Recommendations: No other consults recommended at this time. Equipment needs: a cane was provided today Physical Therapy Goals: To be achieved by 09/15/18: ?? 1. Pt. To perform bed mobility independently with bed flat met 2. Pt to ambulate 150 ft with cane and supervision met 3. Pt to negotiate a FOS with cane and one-sided railing under supervision met Plan: Therapy Frequency: monitor for as outlined in initial evaluation. Patient agrees with plan asstated. Time IN / OUT: 13:33-13:50 Total Evaluation Minutes, Physical Therapy: 17 Lynsey Kaiser DPT, NCS Pager: [phone] Physical Therapy Inpatient Rehabilitation Department * Consult Note - Jose Dahl MD - 09/07/2018 11:10 AM EDT Inpatient Ophthalmology Evaluation Req MD: Alfredo Moreno MD: Josh Garza I was asked to evaluate Savannah Moore regarding headaches, blurry vision and concern about possible IIH. She is admitted for management of headaches and recent strokes with L side weakness. She reports holocranial headaches since age 10, with associated blurring of vision during headache, whichrecovers after headache. She reports R temporal VF loss OD only, associated with cerebral aneurysm (clipped in 2016). She says that her vision was a little blurry before her recent strokes, but has gotten worse since. Has been photophobic for years, worse in past 6 months. She reports monocular ghosting of vision in each eye. POH: R para-ophthalmic artery aneurysm clipping 2016. No eye doctor for at least 5 years. PMH: Obesity, IVDA, chronic pain, fibromyalgia, ADD, scoliosis, migraines, seizures, intracranial aneurysm (clipped), kidney stones, SVT - palpitations, anxiety FH: No pertinent history ROS: Headache, occasional palpitations, anxiety, nausea, blurring, monocular ghosting. 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 Small site of right frontal cortical encephalomalacia from chronic infarction. No mass or mass effect. ?? MRA: No proximal vascular thrombosis. [facility] Savannah Moore was oriented to person, place and time and had an appropriate affect. VAsc: OD: 20/100 OS: 20/50 VArefracted OD: 20/25 OS: 20/20 With myopic correction OU VF: OD: globally constricted OS: full Automated VF: Unreliable - artifacts of inattention; many fixation losses Color: OD: 710 OS: 01/31 Stereo: + fly, 1/3 animals, 6/9 circles Pup: 3.5mm to 3mm ou, no APD IOP: 14 mmHg OD, 15 mmHg OS EOM: Full d/v Ext: Normal SLE: LLL: quiet OU Conj: quiet OU K: clear OU AC: deep and quiet OU I: normal OU L: clear OU V: clear OU Fundus: disc, macula, vessels and peripheral retina within normal limits OU C/D 0.1-2 OU, no disc edema or pallor. No NUCLEAR POWER PLANT ENGINEER noted. (Dilated with 1% tropicamide and 2.5% phenylephrine) Impression: 1. Uncorrected myopia 2. Longstanding R VF loss associated with cerebral aneurysm 3. No disc edema or other definite signs of IIH Comment: The uncorrected myopia explains some of her symptoms. Recommend she see local eye doctor for confirmation of refraction and then obtain glasses. Her slightly decreased acuity, color, and poor confrontation ching may be attributable to optic neuropathy OD. We are not able to document reliable automated visual ching today. Recommend Dr. Muniz for further neuro-ophthalmology evaluation if needed by neurology team. I have discussed my findings and concerns with Ms. Moore and Dr. Ben Abel. Please don't hesitate tocontact me if I can be of more assistance. Jose Dahl MD Section of Ophthalmology [facility] page: [phone], office: [phone] * Plan of Care - Esme Burton RN - 09/07/2018 5:17 AM EDT Problem: Patient Care Overview Goal: Plan of Care Review Outcome: Ongoing (Interventions Implemented as Appropriate) 09/06/181999 Coping/Psychosocial Plan Of Care Reviewed With patient OUTCOME EVALUATION NOTE: OUTCOME SUMMARY: Pt alert and oriented. Able to make needs known. Pt had one bout of emesis. Medicated per mar with positive effect. Pt resting comfortably on right side at this time. No facial grimacing nor restlessness noted. PLAN MOVING FORWARD: Evaluate and readjust as needed. INDIVIDUALIZED FALL PREVENTION INTERVENTIONS: Patient-specific fall risk factors per assessment: [current deficits]: Left side weakness Assistance [level of assistance required for transfers and ambulation]: Standby assist Supervision [direct monitoring required during toileting and ADLs]: Eyes on Surveillance [continuous indirect monitoring]: Bed in low, locked position. Pt refused bed alarm alia set. Purposeful hourly rounding. Call light and bedside table within reach. Patient-specific fall prevention interventions for sensory deficits provided, if applicable: N/A CPG GOAL OUTCOME EVALUATION: Ongoing * Initial Assessments - Johnny Lopez MSW - 09/06/2018 10:03 AM EDT Office of Care Management Initial Assessment ALCIDES Giles reviewed record and discussed patient with Care Team. Source of Information: Patient, Chart, Treatment Team Introduced self/reviewed role; services accepted. Reason for Hospitalization: Reason for Admission as Stated by Patient: stroke Headaches, new onset multifocal infarcts -multiple foci of recent/acute ischemic changes in the R cerebral hemisphere Past Medical History: Diagnosis Date ??? ADD (attention deficit disorder) 09/18/2014 ??? Back pain ??? Chronic pain syndrome 01/15/2014 ??? Depression ??? Fibromyalgia 01/15/2014 ??? Heart palpitations 01/15/2014 ??? Kidney stones ??? Migraines 01/15/2014 ??? Patient non adherence ??? Scoliosis 09/18/2014 ??? Seizures Hospitalizations Within the Past 30 Days:none Anticipated Length Of Stay (If known): Expected Length of Hospitalization: 09/14/2018 Current Decision-Making Capacity: A&OX4 (long pauses in response; possible periods of absence) Advance Care Planning: None in eDH Current Coping/Education/Information Needs: none Current Functional Ability: SBA Functional Status Prior to Admission: Independent and active in ADL's Home Environment: Lives with a family member in a home where she can stay on one level. There are 18+4 stairs to get to the residence up a hill. In October, patient is planning on moving to her mother'shome, where she can stay on the first floor and has fewer steps to enter. Her mom is home and can assist. Social & Family Supports/Community Resources: Mother, siblings, Baltazar is greatest support buthe lives far away Behavioral Health History: spaced on answer- depression ? Substance Use/Abuse: Tobacco Use ??? Smoking status: Quit last week 1ppd smoker ??? Smokeless tobacco: Never Used Substance Use Topics ??? Alcohol use: No ??? Drug use: IVDU and opiate dependence (17 months sober, on methadone) Other Pertinent/Service Specific Information: Health/Prescription Coverage: Primary Insurance: MEDICAID [place] Secondary Insurance: N/A Prescription Coverage: Yes Preferred [facility]acy: [facility] Primary Care Provider: Vicky Obrien APRN [phone] Patient/Caregiver Goals of Treatment: feel better; have more energy Potential Needs for Transition of Care: Rehab/SNF: I guess [place] [facility] ? Home Health: has used [facility] DME: I use a cane Dialysis: NA Community Resources: Available Transportation: Medicaid or family Anticipated Barriers to Discharge/Special Considerations: None Assessment: 27 y.o. R handed female with a H chronic migraines (since age 10), depression, fibromyalgia, severe scoliosis (s/p surgical correction with Tejeda Connor), AV node ablation for SVT in 2015, PTSD, unruptured cerebral aneurysm s/p coiling (2015), chronic pain, and hepatitis C (untreated) who presents as a transfer from [facility] today for acute ischemic stroke. Plan: Likely home with assist, home services, and follow up A member of the Care Management team will continue to monitor progress, follow for continuity of care and assist with transition of care planning. ALCIDES Giles Pager: [phone] * Plan of Care - Lynsey Kaiser, PT - 09/06/2018 9:19 AM EDT Physical Therapy Evaluation Patient profile: Savannah Moore is a 27 y.o. R handed female with a PMH chronic migraines (sinceage 10), IVDU and opiate dependence (17 months sober, on methadone), depression, fibromyalgia, severe scoliosis (s/p surgical correction with Tejeda Connor), AV node ablation for SVT in 2014, PTSD, unruptured cerebral aneurysm s/p coiling (2014), chronic pain, and hepatitis C (untreated) who presents as a transfer from [facility] today for acute ischemic stroke. Patient with the following active problems: Past Medical History: Diagnosis Date ??? ADD [...] Procedure Date: 06/19/2007 ??? LITHOTRIPSY kidney stones Social History: Lives with a family member in a home where she can stay on one level. There are 18+4 stairs to get to the residence up a hill. In October, patient is planning on moving to her mother's home, where she can stay on the first floor and has fewer steps to enter. Her mom is home and can assist. Functionally, patient is independent at baseline. Precautions/Special Considerations: Fall Risk, L-sided weakness, impaired vision Lines: IV Activity Orders: up with assist Mobility and Positioning Recommendations: ?? Pt transfers and ambulates with min A on the left side. She will be issued a cane. Subjective: ???My left leg is really weak and jose luis Objective: Pt seen for PT evaluation today. Pain: Number Location At rest 8/10 head With activity 9/10 head Patient wore sunglasses outside her room as she reports light worsens her headache. She describes her headache as pressure on both sides, but greater on her R side in the orbital region. Mental Status: alert, oriented to person, place, and time Skin: WFL Musculoskeletal: ROM: BLE functional Strength: L knee and hip: 3-/5; was unable to fully lift against gravity in sitting, diminished L heelstrike during ambulation Sensation: Decreased sensation to light touch LLE Bed Mobility: Supine to Sit: Independent, uses bed rail with RUE to assist herself up Sit to Supine: Independent Transfers: Sit to Stand: Min A Stand to Sit: Min A Bed to Chair: Min A Gait: Distance: 15 ft Device used: used IV pole with her RUE Level of assist: Min A Gait mechanics: Impaired advancement of LLE (slides LLE forward), L knee buckling x 1, slow gait, fatigued quickly Stairs: Not assessed; pt only tolerated short ambulation Balance: Sitting Static: Good Sitting Dynamic: Good Standing Static: Fair Standing Dynamic / Gait: Fair- Education: Patient has been educated on Transfers, Safety , Precautions/protocol, Gait , Role of therapy, Balance and Discharge planning and demonstrates understanding. Patient status, treatment, and mobility recommendations discussed with nursing. Assessment: Savannah Moore was seen today for physical therapy evaluation. She demonstrates L-sided weakness, decreased sensation along her LLE, impaired vision (blurriness mostly in R eye), significant pain (reports 8/10 headache, mostly on the R, increasing with mobility), impaired balance, and decreased activity tolerance all of which impact her current functional level. Patient is a&o x 3 and follows commands. Mobility-linton, patient was able to ambulate a short distance (about 15 ft) with min A on the L sidepushing the IV pole with her RUE. Further ambulation declined sec to pain and fatigue as well as awaiting further testing. Patient plans on initially discharging to her home when medically ready (lives with a family member) where she will have to be able to negotiate stairs to get up the hill to the residence. In October, she plans on moving in with her mother (home, can assist) with just a few steps to enter. Patient reports she has had impairments like her current ones before, and found that a cane greatlyhelped with her mobility; will issue a cane. Recommend home services to patient following dischargeto progress her mobility and will keep working with patient while in-house. The pt would benefit from skilled therapy services to promote safety and provide developmental support and caregiver education. Discharge Recommendations: Based on the current findings, Anticipated Discharge Disposition: home with assist, home with home health when medically ready for hospital discharge. Consult Recommendations: No other consults recommended at this time Equipment needs: PT to issue cane today Goals: To be achieved by 09/15/18: 1. Pt. To perform bed mobility independently with bed flat 2. Pt to ambulate 150 ft with cane and supervision 3. Pt to negotiate a FOS with cane and one-sided railing under supervision Plan: Therapy Frequency: 3-5 times/wk for therapy including balance training, bed mobility training, gait training, motor coordination training, neuromuscular re-education, patient/family education, postural re-education, range of motion, stair training, strengthening, stretching and transfer training. Patient/family understand and agree with plan as stated above. 2017 PT Evaluation Code Rationale: ?? Diagnosis & Pertinent Co-Morbidities, personal factors, and present illness affecting Plan of Care: (see above); Additional personal factors or co- morbidities that impact plan: ?? Total # of Factors: 0 1-2 3+ x ?? Examination of body system impairments, functional limitations and behaviors, and/or participation restrictions. Addressing 1-2 elements Addressing 3 + elements Addressing 4 + elements x ?? Clinical presentation: See assessment above. Stable/Uncomplicated Evolving/Fluctuating Symptoms Unstable/Unpredictable x ?? Clinical decision making of high complexity based on pt's functional performance as outlined in this evaluation. Time IN / OUT: 08:57-09:19 Total Evaluation Minutes, Physical Therapy: 21 Lynsey Kaiser DPT, NCS Pager: [phone] Physical Therapy Inpatient Rehabilitation Department * Plan of Care - Esme Burton RN - 09/06/2018 4:42 AM EDT Problem: Patient Care Overview Goal: Plan of Care Review Outcome: Ongoing (Interventions Implemented as Appropriate) 09/05/181999 Coping/Psychosocial Plan Of Care Reviewed With patient OUTCOME EVALUATION NOTE: OUTCOME SUMMARY: Pt alert and oriented. Able to make needs known. Pt had complaints of pain. Medicated per jun. Pt resting well with eyes closed. No facial grimacing nor restlessness noted. Will continue to monitor. PLAN MOVING FORWARD: Evaluate and adjust as needed. INDIVIDUALIZED FALL PREVENTION INTERVENTIONS: Patient-specific fall risk factors per assessment: [current deficits]: Assistance [level of assistance required for transfers and ambulation]: Independent Supervision [direct monitoring required during toileting and ADLs]: Eyes on Surveillance [continuous indirect monitoring]: Bed in low, locked position. Bed alarm set. Purposeful hourly rounding. Call light and bedside table within reach. Patient-specific fall prevention interventions for sensory deficits provided, if applicable: N/A CPG GOAL OUTCOME EVALUATION: Ongoing * Associate Provider Student Progress Note - Michelle Gomez - 09/05/2018 2:43 PM EDT Neurology Progress Note Admit Date: 09/05/2018 Chief Complaint: Headache, N/V and L sided weakness Patient ID: 27 y.o. female Onset of symptoms (if witnessed): 09/03 around 8:00PM Last known well: 09/03 8:00PM HPI: Savannah Moore is a 27 y.o. R handed female with a PMH chronic migraines (since age 10), IVDU and opiate dependence (17 months sober, on methadone), depression, fibromyalgia, severe scoliosis (s/psurgical correction with Tejeda Connor), AV node ablation for SVT in 2014, PTSD, unruptured cerebral aneurysm s/p coiling (2014), chronic pain, and hepatitis C (untreated) [facility]. She presented to OSH on 09/03 with worsening headaches and new onset blurry vision, diplopia. Ms. Moore reports that last , 08/30, she presented to [facility] ED with 2 days of RLQ ABD pain, mild fever, N/V as she thought she had appendicitis. She reports she was given toradol and promethazine 10mg Rx with mild relief. After discharge, she returned home where she began experiencing worsening headaches and fevers over the course of the next three days. She developed a severe headache withassociated diaphoresis, tinnitus, flashing lights, and N/V on Sunday 09/03 at 8PM. This prompted herto present to the [facility] ED, driven by a friend. Notably, she suffers from chronic daily headaches and migraines for which she has taken a combination of tylenol, ibuprofen, naproxen and Excedrin on a daily basis. Most recently, she has been taking tylenol 1000mg QID with little relief. Additionally,she reports she had an increasing L sided weakness and numbness in the face and LLE over the past 6months. OSH course showing negative CTH and CTA (limited due to motion artifact). MRI and MRV demonstrated small multiple foci of recent/acute ischemic changes in the R cerebral hemisphere involving the R parietal, frontal and occipital lobe. She had a lab workup of CBC, CMP which was negative. CSF from LPdisplayed a high closing pressure of 35, with otherwise normal CSF (2 WBC, 1 RBC, normal glucose and normal protein).At [facility], she was given compazine, dilaudid, morphine and benadryl. She reports positive response to the dilaudid, though it is unclear if the relief was also provided from the LP. She has a 2016 ALFREDO and RF which are also negative from [facility]. Given the clinical findings and high closing pressure on LP, there was concern of IIH (pseudotumor cerebri) and interest in obtaining ophthalmology evaluation of fundus under dilation. Per [facility] Records: In the ED at [facility], she had a CT head which showed an old right frontal hypodensity in addition to artifact from coiling. Notably, she presented to [facility] on February 13, 2017 for similar symptoms of increased headache and fevers. She underwent a head CT 02/13/2017 which was unremarkable and had a repeat head CT on 02/16/2017 which clearly demonstrated a right frontal hypodensity not noted on report. At that time, she was admitted for headache control and treated with doxepin and hydroxyzine with modest improvement. She had 1 out of 2 blood cultures positive at that time for staph saprophyticus which was thought to be a contaminant. She had an LP that was unremarkable at the time as well. In the ED on 09/03/18, she had an LP showing 2 WBC, 1 RBC, 55 GLU, 27 Protein and a closing pressureof 35 with no opening pressure documented. No ophthalmology exam was performed or reported at the time in [facility] ED. She had a lab workup with elevated ESR of 21, CRP 7.39. She was admitted to [facility] andhad an MRI showing an old right frontal encephalomalacia but shows areas of acute ischemic in R occi pital, parietal, and frontal lobes. An MRA of the head was limited by motion artifact but did not show any significant stenosis or aneurysmal formation. She had a CTA of the head and neck in the ED which was unremarkable but complicated by aneurysmal coiling. She is not on control as she had a tubal ligation in 2014. She has a family history of a paternal aunt with cerebral aneurysm in her 30's. She has a family history of heart disease in her father. ROS: General: + Fever at home x 1 week, diaphoretic HEENT: blurry vision mostly in R eye with mild blurring of vision in L eye, horizontal diplopia in R eye, intermittent floaters without provocation (including rods of light and blinking red light at night), eye pain (associated with headache), suboccipital neck pain, tinnitus, difficulty swallow ing, chronic daily migraine Neuro: STM loss, speech difficulty, slurring words, L side weakness (entire L side), paresthesias (numbness and tingling in LLE in LUE), mild weakness in RUE and RLE GI: abdominal pain (dull ache) MSK: diffuse myalgias PMH: Patient Active Problem List Diagnosis ??? Seizures ??? Patient non adherence ??? [...] pain syndrome ??? Fibromyalgia ??? Migraines Past Surgical History: Procedure Laterality Date ??? [...] Procedure Date: 06/19/2007 ??? LITHOTRIPSY kidney stones Family History: Paternal aunt: , cerebral aneurysm Social History: Smoking: current daily smoker, trying to quit, smokes 4-5 cigarettes/day Drug use: former IVDU heroin, cocaine, opiates; currently daily THC user, in [facility] on methadone maintenance program ETOH: 1-2 glasses of wine 2x/week Living situation: lives at home with cousin's ex- and 3 children, not in a relationship history: : 2 Hx term pregnancies: 2 Para: 3 AB spontaneous: 0 Livin Medications: Acetamenophen 1000mg PO Q6H Albuterol 1 puff Q6H PRN Aspirin 81mg PO QD Colace 100mg PO QD Gabapentin Methadone 120mg PO QD Nicotine pen Q2H PRN Prilozec 40mg PO QHS Paroxetine 10mg PO QHS Miralax 17gm PO QD PRN Promethazine 25mg PO Q6H PRN Allergies Allergen Reactions ??? Bee Pollen Anaphylaxis ??? Meperidine Hcl Anaphylaxis and Other (See Comments) flushing, respiratory trouble ??? [place] Other (See Comments) Flu like sx ??? Zoloft [Sertraline] Other (See Comments) Flu like sx Physical Exam: Vitals: Last value Range last 24 hrs Temperature Temp: 36.8 ??C (98.3 ??F) Temp: [36.8 ??C (98.3 ??F)] Heart Rate Heart Rate: 73 Heart Rate: [73] Blood Pressure BP: 118/73 BP: (118)/(73) Respiratory Rate Resp: 16 Resp: [16] SpO2 SpO2: 94 % SpO2: [94 %] I/O: No intake/output data recorded. General: A&Ox4, eyes closed throughout most of the encounter, general psychomotor slowing with speech and motor HEENT: oral mucosa moist, no thrush, supple neck with no meningismus, L sided occipital tenderness to palpation CV: RRR S1S2 no murmur Pulm: CTAB symmetric expansion Abd: soft, nontender, non-distended, hypoactive bowel sounds Ext: no edema, adequate pulses, no bony deformity Neuro exam: MSE: alert, oriented to person, place, time, situation, follows simple and complex commands, speechfluent with no dysarthria, able to repeat a sentence, names objects CN: PERRL, no nystagmus, visual ching full though noted blurriness in R eye and diplopia in R eye,inability to fully abduct R eye, fundoscopic exam limited (difficult to visualize optic disc, with R disc papilledema appreciated) decreased facial sensation on L side V1-V3 (x 6 months), no facial asymmetry, tongue protrudes midline, uvula and palate elevate symmetrically, trap symmetric strength bilaterally Motor: Normal bulk and tone. 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 5/5 R, 4/5 L Wrist Extension 5/5 R, 4/5 L Wrist Extension Pronator Drift L side < 10 s LE: 5/5 R, 4/5 L Hip flexion 5/5 R, 4/5 L Knee extension 5/5 R, 4/5 L Knee flexion 5/5 R, 4/5 L Foot dorsiflexion 5/5 R, 4/5 L Foot plantar flexion No pronator drift Reflexes 2+ bilat biceps, brachioradialis, triceps 2+ bilat patella, achilles Toes mute bilaterally, withdrawal reflex appreciated on R Sensation: decreased sensation to light touch in LLE throughout, vibratory sensation intact distally bilaterally, absent joint position bilaterally distal MTP Coordination: intact finger nose finger with dysmetria and overshoot appreciated on L side, intact YONATAN with bilateral slowing, heel to mcgraw intact bilaterally, no tremor Gait: deferred Labs: From [facility] OSH 09/05/2018: WBC 4.48 Hgb 12.4 Hct 37.8 PLT 237 Na 140 K 3.6 Cl 102 HCO3 29.9 BUN 18 Cr 1.02 GLU 74 ESR 21 CRP 7.39 PRL 35.3 PT 10.0 INR 1 APTT 28.3 Urinalysis: Color yellow Clarity clear PH 7.5 Specific gravity 1.015 Protein negative Ketones negative Blood negative Nitrite negative Bilirubin negative Urobilinogen 0.2 Leuk esterase negative Glucose negative Diagnostic Tests and Imaging: Swallow screen results: PASSED 6:10PM At [facility] OSH: MRI Brain 09/04/18: Old right frontal encephalomalacia, additional acute ischemia in R occipital, parietal and frontal lobes MRA Head 09/04/18: Limited by motion artifact but did not show any significant stenosis or aneurysmal formation CTA Head and Neck 09/04/18: Unremarkable but complicated by artifact from her coiling CT Head 09/03/18: Old right frontal hypodensity in addition to artifact from previous coiling CT Head 02/16/17: Right frontal hypodensity Assessment and Plan: Savannah Moore is a 27 y.o. female with a PMH significant for opiate dependence and IVDU, unruptured cerebral aneurysm s/p coiling, chronic pain, DM, HCV, chronic daily migraine with medication overuse who presents as a transfer from [facility] for acute ischemic stroke in frontal, parietal, and occipital lobes appreciated on MRI 09/04/18 and potential IIH vs vasculitis. Her maincomplaint is worsening headache and visual disturbances, including blurry vision and horizontal diplopia. She has a R CN palsy and focal weakness of the left hemibody. She has decreased sensation on the L hemibody which she appreciates has been ongoing for 6 months. Etiology of infarcts in not yet clear but there is concern for cerebral venous sinus thrombosis given elevated closing pressure on LP, CUADRA, and visual changes vs embolic. She will be admitted to neurology floor level care for further evaluation and work up - including TTE, BC, AI labs, 2nd read of MRI/CTH/CTA and repeat CTA headand obtain CTV. Plan #Worsening CUADRA # New R parietal, posterior frontal and R occipitial lobe. -Admit to neurology, floor level -Neuro check & vitals Q4hrs / Q4hrs -Permissive HTN, treat SBP >220 with prn labetalol, enalaprilat -Check CBC, BMP, LFT, lipid profile, HbA1c, Mg, Phos, UA, BC - Autoimmune abel: ds DNA, ANCA panel ,C3/4 complements, SSA, SSB (ALFREDO and RF already obtained at OSH) - Continue ASA 81mg for now -Statin pending labs -TTE -12 lead EKG -Telemetry -2nd read on OSH MRI brain, CTH/CTA - CTV - repeat CTA head only - Ophthalmology consult tmr -PT/OT/TALENT BUYER ?? # Headaches - IVF, IV mag, depacon 500mg - prn tylenol ?? # Home meds (med rec completed with pt) - methadone 120mg QD - paroxetine 10mg QHs- will hold this for now - tums prn - colace 100mg QD prn - tylenol prn - albuterol Q6hrs prn - proair inh - omeprazole 20--> pantoprazole 20mg - gabapentin 100mg TID - need to verify with her pharmacy dose of methadone (pt states 120mg QD...) ?? # Prophylaxis -Lovenox 40mg QD -RBOs -SCDs ?? # Supportive care -Regular diet -Tylenol PRN -Up with assistance ?? # FULL code RICCO Pinto-Student Department [place] [address] documented in this encounter Plan of Treatment Upcoming Encounters Date Type Department Care Team (Late st Contact Info) Description 01/24/2024 3:40 PM EDT Office Visit Cardiology at [address] [phone] Rangel Willams MD [facility] [address] Scheduled Orders Name Type Priority Associated Diagnoses Orde r Schedule US Abdomen Limited - Hepatology Protocol Imaging Routine Once PRN (fo r Radiant use) for 1 Occurrences starting 09/10/2018 until 09/10/2018 documented as of this encounter Procedures Procedure Name Priority Date/Time Associated Diagnosis Comments TRANSESOPHAGEAL ECHOCARDIOGRAM (EVELIO) Routine 09/12/2018 1:14 PM EDT Cerebrovascular accident (CVA), unspecified mechanism TRANSESOPHAGEAL ECHOCARDIOGRAM (WRVU 2.3) 09/12/2018 12:07 PM EDT EVELIO/CVA COMPREHENSIVE METABOLIC PANEL Routine 09/12/2018 6:[address] VENOGRAM OF PELVIS Routine 09/11/2018 12:57 PM EDT XR ABDOMEN FLAT AND UPRIGHT Routine 09/11/2018 10:18 AM EDT RAPID DRUG SCREEN, URINE Routine 09/11/2018 9:37 AM EDT RAPID DRUG SCREEN W/O CONFIRMATION, URINE Routine 09/11/2018 9:37 AM EDT URINALYSIS WITH REFLEX CULTURE Routine 09/11/2018 9:37 AM EDT LUPUS ANTICOAGULANT Routine 09/11/2018 9 :30 AM EDT SILICA CLOTTING TIME Routine 09/11/2018 9:30 AM EDT DRVVT Routine 09/11/2018 9:30 AM EDT PROTEIN S ACTIVITY Routine 09/11/2018 9: 30 AM EDT BETA-2 GLYCOPROTEIN ANTIBODIES Routine 09/11/2018 9:30 AM EDT PROTEIN C ACTIVITY Routine 09/11/2018 9: 30 AM EDT CARDIOLIPIN ANTIBODY SCREEN Routine 09/11/2018 9:30 AM EDT CRP, ACUTE INFLAMMATION Routine 09/12/19 19 5:45 AM EDT SEDIMENTATION RATE Routine 09/11/2018 5: 45 AM EDT MRI CARDIAC MORPHOLOGY FUNCTION WWO CONTRAST Routine 09/10/2018 1:12 PM EDT HEPATITIS C RNA, QUANTITATIVE, PCR Routine 09/10/2018 11:33 AM EDT XR CHEST ONE VIEW Routine 09/08/2018 1:2 8 PM EDT HEPATITIS C ANTIBODY Routine 09/08/2018 6:46 AM EDT IRON AND TIBC Routine 09/08/2018 6:46 AM EDT HEPATITIS A ANTIBODY, TOTAL Routine 09/08/2018 6:46 AM EDT HEPATITIS B CORE ANTIBODY, TOTAL Routine 09/08/2018 6:46 AM EDT VITAMIN D, 25-HYDROXY Routine 09/08/2018 6:46 AM EDT HIV SCREEN, 4TH GENERATION ([facility]D/[facility]) Routine 09/08/2018 6:46 AM EDT HEPATITIS B SURFACE ANTIBODY Routine 09/08/2018 6:46 AM EDT HEPATITIS B SURFACE ANTIGEN Routine 09/08/2018 6:46 AM EDT TSH Routine 09/08/2018 6:46 AM EDT FOLATE, SERUM Routine 09/08/2018 6:46 AM EDT FERRITIN Routine 09/08/2018 6:46 AM EDT VITAMIN B12 Routine 09/08/2018 6:46 AM EDT EKG 12-LEAD STAT 09/08/2018 6:15 AM EDT Cerebrovascular accident (CVA), unspecified mechanism DUPLEX FOR DVT BILAT LEGS Routine 09/07/2018 3:59 PM EDT Cerebrovascular accident (CVA), unspecified mechanism EKG 12-LEAD Routine 09/07/2018 12:35 PM EDT Cerebrovascular accident (CVA), unspecified mechanism HEMOGRAM Routine 09/07/2018 7:44 AM EDT DIFFERENTIAL, AUTOMATED Routine 09/08/19 19 7:44 AM EDT CBC (WITH DIFF) Routine 09/07/2018 7:44 AM EDT PHOSPHORUS Routine 09/07/2018 7:44 AM EDT MAGNESIUM Routine 09/07/2018 7:44 AM EDT HEPATIC FUNCTION PANEL Routine 9 7:44 AM EDT BASIC METABOLIC PANEL Routine 09/07/2018 7:[address] CADDO OF GAY W CONTRAST Routine 09/06/2018 8:[address] VENOGRAM BRAIN Routine 09/06/2018 8:0 8 PM EDT ECHO COMPLETE W CONTRAST Routine 09/06/2018 1:31 PM EDT Heart palpitations LIPID PANEL (REFLEX DIRECT LDL) Routine 09/06/2018 10:02 AM EDT BMP W/FASTING GLUCOSE Routine 09/06/2018 10:01 AM EDT HEMOGRAM Routine 09/06/2018 10:01 AM EDT DIFFERENTIAL, AUTOMATED Routine 09/07/19 10:01 AM EDT CBC (WITH DIFF) Routine 09/06/2018 10:01 AM EDT TRIGLYCERIDE Routine 09/06/2018 10:01 AM EDT PHOSPHORUS Routine 09/06/2018 10:01 AM EDT MAGNESIUM Routine 09/06/2018 10:01 AM EDT LDL CHOLESTEROL, DIRECT Routine 09/07/19 10:01 AM EDT HDL/CHOL PROFILE Routine 09/06/2018 10:0 1 AM EDT HEMOGLOBIN A1C Routine 09/06/2018 10:01 AM EDT HEPATIC FUNCTION PANEL Routine 9 10:01 AM EDT BLOOD CULTURE STAT 09/05/2018 10:00 PM EDT CRP, ACUTE INFLAMMATION Routine 09/06/19 9:45 PM EDT SS-B/LA ANTIBODY Routine 09/05/2018 9:45 PM EDT SS-A/RO ANTIBODY Routine 09/05/2018 9:45 PM EDT CYTOPLASMIC NEUTROPHILIC AB Routine 09/05/2018 9:45 PM EDT PROTEINASE-3 ANTIBODY Routine 09/05/2018 9:45 PM EDT MYELOPEROXIDASE AB Routine 09/05/2018 9: 45 PM EDT DNA ANTIBODY (DOUBLE-STRANDED) Routine 09/05/2018 9:45 PM EDT BLOOD CULTURE STAT 09/05/2018 9:45 PM EDT SEDIMENTATION RATE Routine 09/05/2018 9: 45 PM EDT C3 COMPLEMENT Routine 09/05/2018 9:45 PM EDT C4 COMPLEMENT Routine 09/05/2018 9:45 PM EDT REQUEST FOR 2ND READ CT HEAD AND SPINE Routine 09/05/2018 6:28 PM EDT REQUEST FOR 2ND READ MR HEAD Routine 09/05/2018 6:26 PM EDT documented in this encounter Results * EVELIO IN MINOR (09/12/2018 1:14 PM EDT) [employer] EF 50 HEARTLAB SYSTEM Anatomical Region Laterality Modality Other 09/12/2018 Narrative 09/12/2018 2:10 PM EDT Procedure: ?Transesophageal Echocardiogram Patient: ?TERESA Augustin ? (Age): 1990(27y) Med Rec#: ? [id number] ?Sex: ?F ? Site Loc: ? [facility] [place] ?Ht / Wt: ??157(cm)/110(kg) Pt. Loc: ?Echo Lab ?BSA: ?2.07 Study Date: ?? 09/12/2018 ?Pt. Type: Tape: ? Referring: LM Reading: Ze Freeman () Airbrush Artist Photography: Ayden Tadeo MS, [facility] Airbrush Artist Photography: Ze Freeman ([id number]) Diagnosis: *Cerebral infarction, unspecified (I63.9) BP: ? 125/72 SUMMARY: 1. There is an aneurysmal inter-atrial septum present with a PFO noted by both color and agitated saline injections. 2. Global left ventricular systolic function is mildly reduced. Ejection fraction is estimated to be 50%. ??There is diffuse hypokinesis present. 3. The right ventricle is normal in size. ??Right ventricular global systolic function is normal. Findings ? : Left Ventricle: ? Global left ventricular systolic function is mildly reduced. ??Ejection fraction is estimated to be 50%. ?There is diffuse hypokinesis present. ?The ??basal anteroseptal, basal anterior, basal anterolateral, basal inferolateral, basal inferior, basal inferoseptal, mid anteroseptal, mid anterior, mid anterolateral, mid inferolateral, mid inferior, mid inferoseptal, apical septal, apical anterior, apical lateral, and apical inferior wall segments are hypokinetic (score 2). ?Overall wallmotion score index is ??2.00 Left Atrium: ? No thrombus is visualized within the left atrium. ?The patent foramen ovale is demonstrated by color Doppler and agitated saline injection. ?There is evidence of an inter-atrial septal aneurysm. Right Ventricle: ? The right ventricle is normal in size. ?Right ventricular global systolic function is normal. Aortic Valve: ? The aortic valve is trileaflet. The leaflets are thin with normal excursion. There is no aortic stenosis or regurgitation present. Mitral Valve: ? The mitral valve appears normal in structure and function. ?There is trace mitral regurgitation present. Tricuspid Valve: ? The tricuspid valve appears normal in structure and function. ?There is mild (1+/4+) tricuspid regurgitation present. Pulmonic Valve: ? The pulmonic valve appears normal in structure and function. ?There is trace pulmonic regurgitation present. Aorta: ? There is no plaque visualized in the ascending aorta. ?There is no plaque visualized in the aortic arch. ?There is no plaque visualized in the descending thoracic aorta. Evelio Procedures: ? The procedure and risk were explained to the patient who consented to the study. ?The EVELIO probe was passed in the operating room by the anesthesiologist after the patient was sedated with general anesthesia. ?There were no complications during the procedure. Misc: ? Transesophageal echo, limited spectral Doppler and color Doppler performed. Wall Motion: Segment Name ?Rest ? Base-Anteroseptal ?? Hypokinetic ? Base-Anterior ? Hypokinetic ? Base-Anterolateral ??Hypokinetic ? Base-Posterolateral Hypokinetic ? Base-Inferior ? Hypokinetic ? Base-Inferoseptal ?? Hypokinetic ? Mid-Anteroseptal ?Hypokinetic ? Mid-Anterior ?Hypokinetic ? Mid-Anterolateral ?? Hypokinetic ? Mid-Posterolateral ??Hypokinetic ? Mid-Inferior ?Hypokinetic ? Mid-Inferoseptal ?Hypokinetic ? Davis-Septal ? Hypokinetic ? Davis-Anterior ? Hypokinetic ? Davis-Lateral ?Hypokinetic ? Davis-Inferior ? Hypokinetic ? Davis-Tip ?Hypokinetic ? This report has been electronically signed by: Ze Freeman M.D. ? 09/12/2018 14:10:12 Images reviewed and interpretation verified [facility] Procedure Note Ze Freeman MD - 09/12/2018 Procedure: Transesophageal Echocardiogram Patient: TERESA Augustin (Age): 1990(27y) Med Rec#: [id number] Sex: F Site Loc: [facility] [place] Ht / Wt: 157(cm)/110(kg) Pt. Loc: Echo Lab BSA: 2.07 Study Date: 09/12/2018 Pt. Type: Tape: Referring: LM Reading: Ze Freeman ([id number]) Airbrush Artist Photography: Ayden Tadeo MS, [facility] Airbrush Artist Photography: Ze Freeman ([id number]) Diagnosis: *Cerebral infarction, unspecified (I63.9) BP: 125/72 SUMMARY: 1. There is an aneurysmal inter-atrial septum present with a PFO noted by both color and agitated saline injections. 2. Global left ventricular systolic function is mildly reduced. Ejection fraction is estimated to be 50%. There is diffuse hypokinesis present. 3. The right ventricle is normal in size. Right ventricular global systolic function is normal. Findings : Left Ventricle: Global left ventricular systolic function is mildly reduced. Ejection fraction is estimated to be 50%. There is diffuse hypokinesis present. The basal anteroseptal, basal anterior, basal anterolateral, basal inferolateral, basal inferior, basal inferoseptal, mid anteroseptal, mid anterior, mid anterolateral, mid inferolateral, mid inferior, mid inferoseptal, apical septal, apical anterior, apical lateral, and apical inferior wall segments are hypokinetic (score 2). Overall wallmotion score index is 2.00 Left Atrium: No thrombus is visualized within the left atrium. The patent foramen ovale is demonstrated by color Doppler and agitated saline injection. There is evidence of an inter-atrial septal aneurysm. Right Ventricle: The right ventricle is normal in size. Right ventricular global systolic function is normal. Aortic Valve: The aortic valve is trileaflet. The leaflets are thin with normal excursion. There is no aortic stenosis or regurgitation present. Mitral Valve: The mitral valve appears normal in structure and function. There is trace mitral regurgitation present. Tricuspid Valve: The tricuspid valve appears normal in structure and function. There is mild (1+/4+) tricuspid regurgitation present. Pulmonic Valve: The pulmonic valve appears normal in structure and function. There is trace pulmonic regurgitation present. Aorta: There is no plaque visualized in the ascending aorta. There is no plaque visualized in the aortic arch. There is no plaque visualized in the descending thoracic aorta. Evelio Procedures: The procedure and risk were explained to the patient who consented to the study. The EVELIO probe was passed in the operating room by the anesthesiologist after the patient was sedated with general anesthesia. There were no complications during the procedure. Misc: Transesophageal echo, limited spectral Doppler and color Doppler performed. Wall Motion: Segment Name Rest Base-Anteroseptal Hypokinetic Base-Anterior Hypokinetic Base-Anterolateral Hypokinetic Base-Posterolateral Hypokinetic Base-Inferior Hypokinetic Base-Inferoseptal Hypokinetic Mid-Anteroseptal Hypokinetic Mid-Anterior Hypokinetic Mid-Anterolateral Hypokinetic Mid-Posterolateral Hypokinetic Mid-Inferior Hypokinetic Mid-Inferoseptal Hypokinetic Davis-Septal Hypokinetic Davis-Anterior Hypokinetic Davis-Lateral Hypokinetic Davis-Inferior Hypokinetic Davis-Tip Hypokinetic This report has been electronically signed by: Ze Freeman M.D. 09/12/2018 14:10:12 Images reviewed and interpretation verified [facility] Meagan Garza MD ECHO ORDERABLES * (ABNORMAL) Comprehensive metabolic panel (non-fasting) (09/12/2018 6:25 AM EDT) Glucose 78 65 - 199 mg/dL [facility] Comment:Diabetes: >=200 mg/d L plus symptoms Blood Urea Nitrogen 17 8 - 18 mg/dL [facility] Creatinine 1.13 0.70 - 1.20 mg/dL [facility] Sodium 143 135 - 145 mmol/L [facility] Potassium 4.6 3.5 - 5.0 mmol/L [facility] Comment: Please note: ??Patients with WBC >100,000 may have falsely elevated Potassium levels. ??For accurate Potassium quantification in these patients send serum separator tube (gold top) for subsequent determinations. ??Contact the Clinical Chemistry Laboratory if there are any questions. Chloride 105 98 - 107 mmol/L [facility] Carbon Dioxide 29 22 - 31 mmol/L [facility] Anion Gap 9 5 - 15 mmol/L [facility] Calcium 8.9 8.5 - 10.5 mg/dL [facility] Protein, Total 6.6 6.1 - 8.0 gm/dL [facility] Albumin 3.5 3.2 - 5.2 gm/dL [facility] Aspartate Aminotransferase 22 0 - 30 unit/L [facility] Alanine Aminotransferase 37(H) 0 - 30 unit/L [facility] Alkaline Phosphatase 110(H) 40 - 104 unit/L [facility] Bilirubin, Total 0.2 0.2 - 1.3 mg/dL [facility] Est Glomerular Filtration Rate 66 >=60 mL/min/1. 73 m?? [facility] Comment: The eGFR was calculated using the CKD-EPI equation. As with all creatinine based estimates of kidney function, eGFR values calculated with the CKD-EPI equation are not accurate in patients with acute kidney failure, extremes of body mass or the acutely ill. [email or web address] [email or web address] [place] [facility] eGFR 77 >=60 mL/min/1. 73 m?? [facility] Comment: The eGFR was calculated using the CKD-EPI equation. As with all creatinine based estimates of kidney function, eGFR values calculated with the CKD-EPI equation are not accurate in patients with acute kidney failure, extremes of body mass or the acutely ill. [email or web address] [email or web address] Blood specimen (specimen) 09/12/2018 6:25 AM EDT 09/12/2018 6:53 AM EDT Narrative Resulting Agency Comment Spec In Lab Meagan Garza MD CHEMISTRY ORDERABL ES [facility] [place] [address] * CT Venogram Pelvis (09/11/2018 12:57 PM EDT) Anatomical Region Laterality Modality Pelvis Computed Tomogra phy Impressions 09/11/2018 1:39 PM EDT No evidence of pelvic venous thrombosis. Mild splenomegaly. Thank you for letting us participate in the care of this patient. For questions regarding this report, please contact the number below. ? Narrative 09/11/2018 1:39 PM EDT EXAMINATION: CT VENOGRAM PELVIS CLINICAL HISTORY: 27 yo F with cryptogenic stroke. TTE showed PFO. DVT negative. Rule out pelvic vein thrombosis TECHNIQUE: CT of the abdomen and pelvis obtained following intravenous demonstration of 110 cc of Omnipaque 350. COMPARISON: None FINDINGS: Minimal groundglass opacification at the pulmonary bases without focal nodularity. No pericardial or pleural effusion. The liver, gallbladder, pancreas, adrenal glands and the kidneys appear unremarkable. The spleen is slightly enlarged, measures 15 cm in length. The small and large bowel appear unremarkable. No retroperitoneal or mesenteric lymphadenopathy is seen. No ascites. No free intraperitoneal air. Pelvis: Normal appearance of the uterus and the ovaries. Normal appearance of the urinary bladder. The abdominal aorta and is branches, the IVC and its tributaries, imaged portions of the femoral veins and arteries are uniformly opacified without filling defects to suggest presence of thrombus. Review of bone windows demonstrates fixation hardware in the imaged portion of the lower thoracic spine, and and S-shaped thoracolumbar scoliosis. No suspicious focal osseous lesions detected. Procedure Note Ray Overton MD - 09/11/2018 EXAMINATION: CT VENOGRAM PELVIS CLINICAL HISTORY: 27 yo F with cryptogenic stroke. TTE showed PFO. DVTnegative. Rule out pelvic vein thrombosis TECHNIQUE: CT of the abdomen and pelvis obtained following intravenous demonstrationof 110 cc of Omnipaque 350. COMPARISON: None FINDINGS: Minimal groundglass opacification at the pulmonary bases without focal nodularity. No pericardial or pleural effusion. The liver, gallbladder, pancreas, adrenal glands and the kidneys appear unremarkable. The spleenis slightly enlarged, measures 15 cm in length. The small and large bowelappear unremarkable. No retroperitoneal or mesenteric lymphadenopathy is seen.No ascites. No free intraperitoneal air. Pelvis: Normal appearance of the uterus and the ovaries. Normal appearanceof the urinary bladder. The abdominal aorta and is branches, the IVC andits tributaries, imaged portions of the femoral veins and arteries areuniformly opacified without filling defects to suggest presence of thrombus. Review of bone windows demonstrates fixation hardware in the imagedportion of the lower thoracic spine, and and S-shaped thoracolumbar scoliosis. No suspicious focal osseous lesions detected. IMPRESSION No evidence of pelvic venous thrombosis. Mild splenomegaly. Thank you for letting us participate in the care of this patient. Forquestions regarding this report, please contact the number below. Meagan Garza MD IMG CT ORDERABLES * XR Abdomen Flat & Upright (09/11/2018 10:18 AM EDT) Anatomical Region Laterality Modality Abdomen N/A Digital Radiogra phy Impressions 09/11/2018 10:51 AM EDT On a background of known postsurgical change of the T-spine vertebral bodies, there is a prominent/large stool burden, without abnormal loops appreciated. Thank you for letting us participate in the care of this patient. For questions regarding this report, please contact the number below. ? Electronically signed by: Meagan Blount [facility] ([phone]), at 09/11/2018 10:51 AM Narrative 09/11/2018 10:51 AM EDT EXAMINATION: XR ABDOMEN FLAT AND UPRIGHT CLINICAL HISTORY: eval for ostruction, fecal load 27-year-old female. TECHNIQUE: Supine and upright views of the abdomen and pelvis, 4 views. COMPARISON: Lumbar spine views of 02/07/2018. FINDINGS: Posterior rods and screws longitudinally bridging the visualized portions of the vertebral bodies. Levoconvex lumbar curvature is again appreciated. Prominent stool burden is noted. Distal air is appreciated. No definite abnormal loops. Procedure Note Meagan Blount MD - 09/11/2018 EXAMINATION: XR ABDOMEN FLAT AND UPRIGHT CLINICAL HISTORY: eval for ostruction, fecal load 27-year-old female. TECHNIQUE: Supine and upright views of the abdomen and pelvis, 4 views. COMPARISON: Lumbar spine views of 02/07/2018. FINDINGS: Posterior rods and screws longitudinally bridging the visualized portionsof the vertebral bodies. Levoconvex lumbar curvature is again appreciated. Prominent stool burden is noted. Distal air is appreciated. No definiteabnormal loops. IMPRESSION On a background of known postsurgical change of the T-spine vertebralbodies, there is a prominent/large stool burden, without abnormal loopsappreciated. Thank you for letting us participate in the care of this patient. Forquestions regarding this report, please contact the number below. Electronically signed by: Meagan Blount [facility]([phone]), at 09/11/2018 10:51 AM Meagan Garza MD IMG DX ORDERABLES * Urinalysis with reflex Culture (09/11/2018 9:37 AM EDT) Glucose, Urine Dipstick Negative Negative mg/dL [facility] Protein, Urine Dipstick Negative Negative mg/dL [facility] Bilirubin, Urine Dipstick Negative Negative mg/dL [facility] Comment: Clinical correlation required for positive Urine Bilirubin results as false positive may occur with some drugs and drug related products. If a false positive is suspected a serum total bilirubin should be considered if clinically indicated. Urobilinogen, Urine Dipstick Normal Normal mg/dL [facility] pH, Urn (dipstick) 6.0 5.0 - 8.0 [facility] Blood, Urine Dipstick Negative Negative mg/dL [facility] Ketone, Urine Dipstick Negative Negative mg/dL [facility] Nitrite, Urine Dipstick Negative Negative [facility] Leukocytes, Urine Dipstick Negative Negative [facility] Appearance, Urine Dipstick Clear Clear [facility] Specific Calder Urine Automated 1.010 1.002 - 1.030 [facility] Color, Urine Dipstick Straw Yellow [facility] Reflex to Culture No [facility] Urine specimen (specimen) Urine / Unknown 09/11/2018 9:37 AM EDT 09/11/2018 9:56 AM EDT Narrative Resulting Agency Comment Spec In Lab Diane Harris MD URINE ORDERABLES [facility] [place] [address] * (ABNORMAL) Rapid Drug Screen w/o Confirmation, Urine (09/11/2018 9:37 AM EDT) Barbiturates Screen, Urine None Detected None Detected [facility] Comment: The barbiturate screen detects barbiturates at concentrations >200 ng/mL. Note: Not all barbiturates cross-react equally with antibody used in this screen. A ? Presumptive Positive? result indicates that the screening result was positive but has not yet been confirmed by a highly-specific method. As with any screen, occasional false positive results from cross-reacting substances may occur. Not for Medico-Legal Purposes. Benzodiazepines Screen, Urine None Detected None Detected [facility] Comment: The benzodiazepines screen detects benzodiazepines at concentrations >100 ng/mL. Not all benzodiazepines cross-react equally with antibody used in this screen. Due to the low dosage of clonazepam, false negatives may be obtained due to low concentration of clonazepam metabolites. A ? Presumptive Positive? result indicates that the screening result was positive but has not yet been confirmed by a highly-specific method. As with any screen, occasional false positive results from cross-reacting substances may occur. Not for Medico-Legal Purposes. Cocaine Screen, Urine None Detected None Detected [facility] Comment: The cocaine metabolites screen detects benzoylecgonine (Cocaine Metabolite) at concentrations >150 ng/mL. A ? Presumptive Positive? result indicates that the screening result was positive but has not yet been confirmed by a highly-specific method. As with any screen, occasional false positive results from cross-reacting substances may occur. Not for Medico-Legal Purposes. Methadone Metabolites Screen, Urine Presumptive Pos(A) None Detected [facility] Comment: The methadone metabolite screen detects EDDP (major methadone metabolite) at concentrations >100 ng/mL. A ? Presumptive Positive? result indicates that the screening result was positive but has not yet been confirmed by a highly-specific method. As with any screen, occasional false positive results from cross-reacting substances may occur. Not for Medico-Legal Purposes. Opiate Screen, Urine None Detected None Detected [facility] Comment: The opiates screen detects opiates at concentrations >300 ng/mL. Please note that oxycodone, oxymorphone, fentanyl, tramadol, and other synthetic opioids are not detected by the opiate screen. A ? Presumptive Positive? result indicates that the screening result was positive but has not yet been confirmed by a highly-specific method. As with any screen, occasional false positive results from cross-reacting substances may occur. Not for Medico-Legal Purposes. Cannabinoid Screen, Urine None Detected None Detected [facility] Comment: The marijuana metabolites screen detects the THC metabolite (27-ubh-6-carboxy-delta 9-THC) at concentrations >20 ng/mL. A ? Presumptive Positive? result indicates that the screening result was positive but has not yet been confirmed by a highly-specific method. As with any screen, occasional false positive results from cross-reacting substances may occur. Not for Medico-Legal Purposes. Oxycodone Screen, Urine None Detected None Detected [facility] Comment: The oxycodone screen detects oxycodone and oxymorphone at concentrations >100 ng/mL. A ? Presumptive Positive? result indicates that the screening result was positive but has not yet been confirmed by a highly-specific method. As with any screen, occasional false positive results from cross-reacting substances may occur. Not for Medico-Legal Purposes. Buprenorphine Screen, Urine None Detected None Detected [facility] Comment: The buprenorphine screen detects buprenorphine at concentrations >5 ng/mL. A ? Presumptive Positive? result indicates that the screening result was positive but has not yet been confirmed by a highly-specific method. As with any screen, occasional false positive results from cross-reacting substances may occur. Not for Medico-Legal Purposes. Fentanyl Screen, Urine None Detected None Detected [facility] Comment: The fentanyl screen detects fentanyl at concentrations >2 ng/mL. A ? Presumptive Positive? result indicates that the screening result was positive but has not yet been confirmed by a highly-specific method. As with any screen, occasional false positive results from cross-reacting substances may occur. Not for Medico-Legal Purposes. Tricyclics Screen, Urine None Detected None Detected [facility] Comment: The tricyclics screen detects tricyclic antidepressants at concentrations >150 ng/mL. Not all tricyclics cross-react equally with the antibody used in this screen. A ? Presumptive Positive? result indicates that the screening result was positive but has not yet been confirmed by a highly-specific method. As with any screen, occasional false positive results from cross-reacting substances may occur. Not for Medico-Legal Purposes. Ethanol Screen, Urine None Detected None Detected [facility] Comment:This urine ethanol a ssay detects ethanol at concentrations >/= 100 mg/L. Amphetamines Screen, Urine None Detected None Detected [facility] Comment: The amphetamine screen detects d-amphetamine and d-methamphetamine at concentrations >300 ng/mL. A ? Presumptive Positive? result indicates that the screening result was positive but has not yet been confirmed by a highly-specific method. As with any screen, occasional false positive results from cross-reacting substances may occur. Not for Medico-Legal Purposes. Adulterants Screen, Urine None Detected None Detected [facility] Comment: No adulteration or dilution of this urine sample was detected. All urine samples submitted for urine drugs of abuse analysis are tested for creatinine concentration, pH, and for the presence of oxidants, nitrites, and chromate. Urine specimen (specimen) 09/11/2018 9:37 AM EDT 09/11/2018 9:54 AM EDT Narrative Resulting Agency Comment Spec In Lab Diane Harris MD CHEMISTRY ORDERABLES Performing Organization Address [facility] Co de Phone Number [facility] [place] [address] * Rapid Drug Screen, Urine (CAM Request) (09/11/2018 9:37 AM EDT) CAM Conf Requested No [facility] CAM Requested See Comment [facility] Comment:Refer to Rapid Drug Screen w/o Confirmation, Urine for results. Urine specimen (specimen) 09/11/2018 9:37 AM EDT 09/11/2018 9:54 AM EDT Narrative Resulting Agency Comment Spec In Lab Meagan Garza MD URINE ORDERABLES Performing Organization Address [facility] Co de Phone Number [facility] [place] [address] * Silica Clotting Time (09/11/2018 9:30 AM EDT) Silica Clotting Time 0.88 <=1.16 ratio [facility] Comment: A result greater than 1.16 TR is consistent with the presence of lupus anticoagulant. Values of 1.16 to 1.24 in this assay are not definitively positive or negative for the presence of a lupus anticoagulant. The SCT ratio may be falsely elevated in patients on anticoagulants, especially heparins and direct oral anticoagulants. An abnormal test result in an anticoagulated patient must therefore be interpreted with caution, and repeat testing after discontinuing anticoagulation may be appropriate. Blood specimen (specimen) 09/11/2018 9:30 AM EDT 09/11/2018 9:37 AM EDT Narrative Resulting Agency Comment Spec In Lab Diane Harris MD HEMATOLOGY ORDERABLE S Performing Organization Address [facility] Co de Phone Number [facility] [place] [address] * dRVVT (09/11/2018 9:30 AM EDT) Pathologist [facility] dRVVT 0.85 <=1.20 IU/mL [facility] Comment: A result greater than 1.20 TR is consistent with the presence of lupus anticoagulant. Values of 1.20 to 1.30 in this assay are not definitively positive or negative for the presence of a lupus anticoagulant. The DRVVT ratio may be falsely elevated in patients on anticoagulants, especially heparins and direct oral anticoagulants. An abnormal test result in an anticoagulated patient must therefore be interpreted with caution, and repeat testing after discontinuing anticoagulation may be appropriate. Blood specimen (specimen) 09/11/2018 9:30 AM EDT 09/11/2018 9:37 AM EDT Narrative Resulting Agency Comment Spec In Lab Diane Harris MD HEMATOLOGY ORDERABLE S Performing Organization Address [facility] Co de Phone Number [facility] [place] [address] * Beta-2 glycoprotein antibodies (09/11/2018 9:30 AM EDT) Pathologist [facility] Beta 2 Glycoprotein, IgG <9.4 <=20.0 unit(s) [facility] Beta 2 Glycoprotein, IgM <9.4 <=20.0 unit(s) [facility] B2GPI Interp No comment [facility] Blood specimen (specimen) 09/11/2018 9:30 AM EDT 09/11/2018 1:11 PM EDT Narrative Resulting Agency Comment Spec In Lab Meagan Garza MD IMMUNOLOGY ORDERAB LES Performing Organization Address [facility] Co de Phone Number [facility] [place] [address] * Protein S Activity (09/11/2018 9:30 AM EDT) Pathologist [facility] Protein S Act 77 64 - 149 % activity [facility] Blood specimen (specimen) 09/11/2018 9:30 AM EDT 09/11/2018 9:37 AM EDT Narrative Resulting Agency Comment Spec In Lab Meagan Garza MD HEMATOLOGY ORDERAB LES Performing Organization Address [facility] Co de Phone Number [facility] [place] [address] * Protein C activity (09/11/2018 9:30 AM EDT) [facility] Protein C Activity 104 70 - 140 % [facility] Blood specimen (specimen) 09/11/2018 9:30 AM EDT 09/11/2018 9:37 AM EDT Narrative Resulting Agency Comment Spec In Lab Meagan Garza MD HEMATOLOGY ORDERAB LES Performing Organization Address [facility] Co de Phone Number [facility] [place] [address] * (ABNORMAL) Cardiolipin Antibody Screen (09/11/2018 9:30 AM EDT) Pathologist [facility] Cardiolipin Antibody IgG <9.4 <=14.9 GPL unit(s) [facility] Comment: Ranges ?? GPL ------ ?? --- Negative ?? <=14.9 Indeterminate ??15.0 - 20.0 Low/Medium Positive 20.1 - 80.0 High Positive ??>80.0 Cardiolipin Antibody IgM 16.0(H) <=12.5 MPL unit(s) [facility] Comment: Ranges ?? MPL ------ ?? --- Negative ?? <=12.5 Indeterminate ??12.6 - 20.0 Low/Medium Positive 20.1 - 80.0 High Positive ??>80.0 Blood specimen (specimen) 09/11/2018 9:30 AM EDT 09/11/2018 1:11 PM EDT Narrative Resulting Agency Comment Spec In Lab Meagan Garza MD IMMUNOLOGY ORDERAB LES Performing Organization Address [facility] Co de Phone Number [facility] [place] [address] * (ABNORMAL) Sedimentation rate (09/11/2018 5:45 AM EDT) Sedimentation Rate Automated 25(H) 0 - 20 mm/hr [facility] Blood specimen (specimen) 09/11/2018 5:45 AM EDT 09/11/2018 6:13 AM EDT Narrative Resulting Agency Comment Spec In Lab Meagan Garza MD HEMATOLOGY ORDERAB LES Performing Organization Address [facility] Co de Phone Number [facility] [place] [address] * CRP, acute inflammation (09/11/2018 5:45 AM EDT) C-Reactive Protein 4.5 <=4.9 mg/L [facility] Blood specimen (specimen) 09/11/2018 5:45 AM EDT 09/11/2018 6:13 AM EDT Narrative Resulting Agency Comment Spec In Lab Meagan Garza MD CHEMISTRY ORDERABL ES Performing Organization Address [facility] Co de Phone Number [facility] [place] [address] * MRI Cardiac Morph Func wwo Contrast (09/10/2018 1:12 PM EDT) Anatomical Region Laterality Modality Magnetic Resonan ce Impressions 09/11/2018 9:37 AM EDT 1. ??Mildly reduced left ventricular systolic function at 41% with global hypokinesis 2. ??Mildly dilated right ventricle with normal right ventricular systolic function 3. ??No delayed enhancement to suggest previous infarct, myocarditis, or infiltrative disease of the left or right ventricles. Thank you for letting us participate in the care of this patient. For questions regarding this report, please contact the number below. ? Narrative 09/11/2018 9:37 AM EDT EXAMINATION: MRI CARDIAC MORPH FUNC WWO CONTRAST CLINICAL HISTORY: new cardiomyopathy COMPARISON: None TECHNIQUE: Trach MRI with and without IV contrast IV CONTRAST: 44 mL Dotarem FUNCTIONAL ANALYSIS: LEFT VENTRICLE: End-diastolic volume 186 mL End-systolic volume 111 mL Stroke volume 75 mL Ejection fraction 41% 3 chamber end-diastolic width 3.8 cm 3 chamber septal thickness 0.9 cm 3 chamber inferolateral wall thickness 0.9 cm RIGHT VENTRICLE: End-diastolic volume 195 mL End-systolic volume 79 mL Stroke volume 160 mL Ejection fraction 60% FINDINGS: Chambers: Technically limited study secondary to difficulty with breath holds. Left ventricular quantification somewhat limited. At rest, the left ventricle demonstrates a globally reduced left ventricular systolic function. Quantitated left ventricular ejection fraction is 41%. Mild global hypokinesis is present. The right ventricle appears mildly dilated with normal function. No right ventricular wall motion abnormalities are present. The left and right atrium are normal in size. A mildly aneurysmal interatrial septum is noted. No manjit PFO is noted on the study, but motion artifact is limiting for this evaluation. The aortic root is normal in size. A trivial pericardial effusion is noted. Valves: The mitral valve appears normal structure and function with trace mitral insufficiency and no stenosis present. The tricuspid valve appears normal in structure and function without stenosis present. Trivial tricuspid insufficiency is present. The aortic valve is not well visualized. The pulmonic valve is not well visualized. Resting perfusion: Resting perfusion was performed in 3 short axis planes. There were no resting perfusion defects present. TI Ladle Liner Helper: TI Ladle Liner Helper demonstrates normal nulling patterns. Delayed enhancement: Delayed enhancement was performed in both long and short axis planes. There is no delayed enhancement to suggest previous infarct, myocarditis, or infiltrative disease of the left or right ventricles. Procedure Note Ze Freeman MD - 09/11/2018 EXAMINATION: MRI CARDIAC MORPH FUNC WWO CONTRAST CLINICAL HISTORY: new cardiomyopathy COMPARISON: None TECHNIQUE: Trach MRI with and without IV contrast IV CONTRAST: 44 mL Dotarem FUNCTIONAL ANALYSIS: LEFT VENTRICLE: End-diastolic volume 186 mL End-systolic volume 111 mL Stroke volume 75 mL Ejection fraction 41% 3 chamber end-diastolic width 3.8 cm 3 chamber septal thickness 0.9 cm 3 chamber inferolateral wall thickness 0.9 cm RIGHT VENTRICLE: End-diastolic volume 195 mL End-systolic volume 79 mL Stroke volume 160 mL Ejection fraction 60% FINDINGS: Chambers: Technically limited study secondary to difficulty with breath holds.Left ventricular quantification somewhat limited. At rest, the left ventricle demonstrates a globally reduced left ventricular systolic function.Quantitated left ventricular ejection fraction is 41%. Mild global hypokinesis ispresent. The right ventricle appears mildly dilated with normal function. Noright ventricular wall motion abnormalities are present. The left and rightatrium are normal in size. A mildly aneurysmal interatrial septum is noted. No frankPFO is noted on the study, but motion artifact is limiting for this evaluation.The aortic root is normal in size. A trivial pericardial effusion is noted. Valves: The mitral valve appears normal structure and function with trace mitral insufficiency and no stenosis present. The tricuspid valve appears normalin structure and function without stenosis present. Trivial tricuspidinsufficiency is present. The aortic valve is not well visualized. The pulmonic valve isnot well visualized. Resting perfusion: Resting perfusion was performed in 3 short axis planes. There were noresting perfusion defects present. TI Ladle Liner Helper: TI Ladle Liner Helper demonstrates normal nulling patterns. Delayed enhancement: Delayed enhancement was performed in both long and short axis planes.There is no delayed enhancement to suggest previous infarct, myocarditis, orinfiltrative disease of the left or right ventricles. IMPRESSION 1. Mildly reduced left ventricular systolic function at 41% with global hypokinesis 2. Mildly dilated right ventricle with normal right ventricularsystolic function 3. No delayed enhancement to suggest previous infarct, myocarditis, or infiltrative disease of the left or right ventricles. Thank you for letting us participate in the care of this patient. Forquestions regarding this report, please contact the number below. Yang Branham MD IMG MRI ORDERABLES * Hepatitis C RNA, quantitative, PCR (09/10/2018 11:33 AM EDT) HCV Viral Load 139,106 IU/mL [facility] HCV Viral Load Result: [id number] IU/mL Indication for Study: Hepatitis C Infection Analysis: The Kaur RealTime HCV assay is an in vitro reverse product marketing executive polymerase chain reaction (RT-PCR)for the quantitation of hepatitis C viral (HCV) RNA in human serum or plasma (EDTA) from HCV-infected individuals. Sample: plasma (0.7 mL minimum volume) Method: Kaur RealTime HCV Assay Linear Range: 12 IU/mL - 100,000,000IU/mL Note: The [employer]aur RealTime HCV Assay has been approved by the U.S. Food and Drug Administration. [facility] Comment: [VERIFIED DATE]09.19.18 Verified By:Keri Warren (Electronic Signature) Blood specimen (specimen) 09/10/2018 11:33 AM EDT 09/18/2018 11:41 AM EDT Narrative Resulting Agency Comment Spec In Lab Meagan Garza MD MOLECULAR ORDERABL ES [facility] [place] [address] * XR Chest PA or AP 1 view (09/08/2018 1:28 PM EDT) Anatomical Region Laterality Modality Chest N/A Digital Radiogra phy Impressions 09/08/2018 1:35 PM EDT No acute lung disease Thank you for letting us participate in the care of this patient. For questions regarding this report, please contact the number below. ? Electronically signed by: Andres Mccall [facility] ([phone]), at 09/08/2018 1:35 PM Narrative 09/08/2018 1:35 PM EDT EXAMINATION: XR CHEST PA OR AP 1 VIEW CLINICAL HISTORY: SOB. Check for pulmonary edema TECHNIQUE: 1 view of the chest COMPARISON: 06/19/2007 FINDINGS: No acute lung disease. No congestive heart failure. No areas of airspace opacity. Thoracic spine fixation rods in place as noted previously Procedure Note Andres Mccall MD - 09/08/2018 EXAMINATION: XR CHEST PA OR AP 1 VIEW CLINICAL HISTORY: SOB. Check for pulmonary edema TECHNIQUE: 1 view of the chest COMPARISON: 06/19/2007 FINDINGS: No acute lung disease. No congestive heart failure. No areas of airspace opacity. Thoracic spine fixation rods in place as noted previously IMPRESSION No acute lung disease Thank you for letting us participate in the care of this patient. Forquestions regarding this report, please contact the number below. Electronically signed by: BRITTANI Diane [facility]([phone]), at 09/08/2018 1:35 PM Meagan Garza MD IMG DX ORDERABLES * HIV Screen, 4th Generation (Leb/CGP) (09/08/2018 6:46 AM EDT) [facility] HIV Ab/Ag Screen Negative Negative [facility] Comment: This 4th Generation HIV [...] Narrative Resulting Agency Comment Spec In Lab Meagan Garza MD CHEMISTRY ORDERABL ES Performing Organization Address [facility] Co de Phone Number [facility] [place] [address] * (ABNORMAL) Hepatitis C Antibody (09/08/2018 6:46 AM EDT) Hepatitis C Antibody Positive(A ) Negative [facility] Blood specimen (specimen) 09/08/2018 6:46 AM EDT 09/08/2018 6:56 AM EDT Narrative Resulting Agency Comment Spec In Lab Meagan Garza MD CHEMISTRY ORDERABL ES Performing Organization Address [facility] Co de Phone Number [facility] [place] [address] * Hepatitis B Core Antibody, Total (09/08/2018 6:46 AM EDT) Hepatitis B Core Antibody Negative Negative [facility] Blood specimen (specimen) 09/08/2018 6:46 AM EDT 09/08/2018 6:56 AM EDT Narrative Resulting Agency Comment Spec In Lab Meagan Garza MD CHEMISTRY ORDERABL ES Performing Organization Address [facility] Co de Phone Number [facility] [place] [address] * Hepatitis B Surface Antibody (09/08/2018 6:46 AM EDT) Hepatitis B Surface Antibody, Quantitative <3.5 IU/L [facility] Comment: HepB Surface Ab Quant: Unvaccinated: < 8.5 IU/L Vaccinated: > 11.5 IU/L Hepatitis B Surface Antibody Negative [facility] Comment: Patient is presumed to be not vaccinated or immune to HBV infection. Expected Results: Vaccinated: Positive Unvaccinated: Negative Blood specimen (specimen) 09/08/2018 6:46 AM EDT 09/08/2018 6:56 AM EDT Narrative Resulting Agency Comment Spec In Lab Meagan Garza MD CHEMISTRY ORDERABL ES Performing Organization Address [facility]/ZIP Co de Phone Number [facility] [place] [address] * Hepatitis B Surface Antigen (09/08/2018 6:46 AM EDT) Hepatitis B Surface Antigen Negative Negative [facility] Blood specimen (specimen) 09/08/2018 6:46 AM EDT 09/08/2018 6:56 AM EDT Narrative Resulting Agency Comment Spec In Lab Meagan Garza MD CHEMISTRY ORDERABL ES Performing Organization Address [facility] Co de Phone Number [facility] [place] [address] * (ABNORMAL) Hepatitis A Antibody, Total (09/08/2018 6:46 AM EDT) Hepatitis A ANTIBODY, TOTAL Indetermin ate(A) Negative [facility] Blood specimen (specimen) 09/08/2018 6:46 AM EDT 09/08/2018 6:56 AM EDT Narrative Resulting Agency Comment Spec In Lab Meagan Garza MD CHEMISTRY ORDERABL ES Performing Organization Address [facility] Co de Phone Number [facility] [place] [address] * (ABNORMAL) Vitamin D, 25-Hydroxy (09/08/2018 6:46 AM EDT) Vitamin D Total 25 OH 26(L) 30 - 100 ng/mL [facility] Comment: Deficient <10 ng/mL Insufficient 10 to 29 ng/mL Sufficient 30 to 100 ng/mL Potential Intoxication >100 ng/mL According to the [place] National Osteoporosis Foundation, Vitamin D concentrations >30 ng/mL are sufficient to protect bone health. ??The National Kidney Foundation has similarly stated that patients with Vitamin D concentrations <30ng/mL should be considered to be insufficient or deficient. http://[employer].Masterbranch/nkf-guidelines http://QR Wild/nejm-VitD The [employer] Vitamin D Immunoassay detects both 25-OH Vitamin D2 and 25-OH Vitamin D3, but only a total Vitamin D concentration is reported. Blood specimen (specimen) 09/08/2018 6:46 AM EDT 09/10/2018 8:27 AM EDT Narrative Resulting Agency Comment Spec In Lab Meagan Garza MD CHEMISTRY ORDERABL ES Performing Organization Address City/[facility]/ZIP Co de Phone Number [facility] [place] [address] * (ABNORMAL) Iron and TIBC (09/08/2018 6:46 AM EDT) Iron 37 30 - 150 mcg/dL [facility] TIBC 327 250 - 450 mcg/dL [facility] Iron Saturation 11(L) 20 - 50 % [facility] Blood specimen (specimen) 09/08/2018 6:46 AM EDT 09/08/2018 6:56 AM EDT Narrative Resulting Agency Comment Spec In Lab Meagan Garza MD CHEMISTRY ORDERABL ES [facility] [place] [address] * Ferritin (09/08/2018 6:46 AM EDT) Ferritin 38 15 - 150 ng/mL [facility] Comment: Pediatric reference ranges not verified at [facility], interpret with caution. Reference ranges for females greater than 50 years of age approach values for men, i.e., 30-400 ng/mL. Blood specimen (specimen) 09/08/2018 6:46 AM EDT 09/08/2018 6:56 AM EDT Narrative Resulting Agency Comment Spec In Lab Meagan Garza MD CHEMISTRY ORDERABL ES Performing Organization Address [facility] Co de Phone Number [facility] [place] [address] * Folate, serum (09/08/2018 6:46 AM EDT) Folate 13.3 4.8 - 24.2 ng/mL [facility] Blood specimen (specimen) 09/08/2018 6:46 AM EDT 09/08/2018 6:56 AM EDT Narrative Resulting Agency Comment Spec In Lab Meagan Garza MD CHEMISTRY ORDERABL ES Performing Organization Address [facility] Co de Phone Number [facility] [place] [address] * Vitamin B12 (09/08/2018 6:46 AM EDT) Vitamin B12 983 232 - 1,245 pg/mL [facility] Blood specimen (specimen) 09/08/2018 6:46 AM EDT 09/08/2018 6:56 AM EDT Narrative Resulting Agency Comment Spec In Lab Meagan Garza MD CHEMISTRY ORDERABL ES Performing Organization Address [facility] Co de Phone Number [facility] [place] [address] * TSH (09/08/2018 6:46 AM EDT) Thyroid Stimulating Hormone 1.04 0.27 - 4.20 mcIU/mL [facility] Blood specimen (specimen) 09/08/2018 6:46 AM EDT 09/08/2018 6:56 AM EDT Narrative Resulting Agency Comment Spec In Lab Meagan Garza MD CHEMISTRY ORDERABL ES Performing Organization Address City/[facility]/ZIP Co de Phone Number [facility] [place] [address] * EKG 12 Lead (09/08/2018 6:15 AM EDT) Pathologist [facility] Ventricular rate 57 BPM MUSE SYSTEM Atrial Rate 57 BPM MUSE SYSTEM P-R Interval 170 ms MUSE SYSTEM QRS Duration 106 ms MUSE SYSTEM Q-T Interval 438 ms MUSE SYSTEM QTC Calculated (Bezet) 426 ms MUSE SYSTEM Calculated P Dickinson 31 degrees MUSE SYSTEM Calculated R Dickinson -9 degrees MUSE SYSTEM Calculated T Dickinson 21 degrees MUSE SYSTEM INTERPRETATION Sinus bradycardia Otherwise normal ECG When compared with ECG of 07-SEP-2018 12:35, No significant change was found Confirmed by MD GODWIN, LE ([id number]) on 09/08/2018 2:29:44 PM MUSE SYSTEM 09/08/2018 6:15 AM EDT 09/08/2018 2:29 PM EDT Meagan Garza MD ECG ORDERABLES Performing Organization Address [facility] Co de Phone Number MUSE SYSTEM * Duplex Study for DVT, Bilat legs (09/07/2018 3:59 PM EDT) [facility] VB Text Report Department: Vascular Surgery Lab Patient: [id number] (SAVANNAH MOORE) CPT: 78287 ICD10: I63.9 Referring Physician: MEAAGN GARZA ?? Indications: 27 y/o female with ischemic stroke to right hemisphere, H/O PFO, ? DVT ICD10 Diagnosis Code: I63.9 Findings: RIGHT: Patent common femoral vein and popliteal vein with spontaneous, respirophasic Doppler waveforms that respond normally to augmentation maneuvers. The common femoral vein, saphenofemoral junction, femoral vein through the thigh and popliteal vein are fully compressible. Patent posterior tibial and peroneal veins with no evidence of thrombus. LEFT: Patent common femoral vein and popliteal vein with spontaneous, respirophasic Doppler waveforms that respond normally to augmentation maneuvers. The common femoral vein, saphenofemoral junction, femoral vein through the thigh and popliteal vein are fully compressible. Patent posterior tibial and peroneal veins with no evidence of thrombus. Interpretation: RIGHT: ??No evidence of lower extremity deep venous thrombosis. LEFT: ??No evidence of lower extremity deep venous thrombosis. Comparison: ?? No previous study in our vascular lab database for comparison. Electronically Signed by: MERLENE MORROW MD on 2018-09-07 06:19:49 PM [facility] VB Text Report End of Report [facility] 09/07/2018 3:59 PM EDT Meagan Garza MD VASCULAR ORDERABLE S Performing Organization Address [facility] Co de Phone Number [facility] * EKG 12 Lead (09/07/2018 12:35 PM EDT) Ventricular rate 74 BPM MUSE SYSTEM Atrial Rate 74 BPM MUSE SYSTEM P-R Interval 148 ms MUSE SYSTEM QRS Duration 106 ms MUSE SYSTEM Q-T Interval 404 ms MUSE SYSTEM QTC Calculated (Bezet) 448 ms MUSE SYSTEM Calculated P Dickinson 31 degrees MUSE SYSTEM Calculated R Dickinson -11 degrees MUSE SYSTEM Calculated T Dickinson 25 degrees MUSE SYSTEM INTERPRETATION Normal sinus rhythm Incomplete right bundle branch block Borderline ECG When compared with ECG of 13-JAN-2015 07:43, Nonspecific T wave abnormality no longer evident in Anterior leads Confirmed by MD IVON, SHEA ([id number]) on 09/07/2018 3:09:39 PM MUSE SYSTEM 09/07/2018 12:3 5 PM EDT 09/07/2018 3:09 PM EDT Meagan Garza MD ECG ORDERABLES Performing Organization Address [facility] Co de Phone Number MUSE SYSTEM * (ABNORMAL) Differential, Automated (09/07/2018 7:44 AM EDT) Neutrophil % 49.5 % [facility] Neutrophil Absolute 4.09 1.70 - 6.10 x10(3)/mc L [facility] Lymph % 39.7 % [facility] Lymphocytes Abs 3.3(H) 0.9 - 3.2 x10(3)/mc L [facility] Monocyte % 6.1 % [facility] Monocyte Abs 0.5 0.3 - 0.9 x10(3)/[facility] Eos % 2.7 % [facility] Eosinophils Abs 0.2 0.0 - 0.4 x10(3)/[facility] Basophil % 0.5 % [facility] Baso Absolute 0.0 0.0 - 0.1 x10(3)/[facility] Immature Gran % 1.50 % [facility] Comment: Immature granulocytes(IG's)percentage and absolute count will include metamyelocytes, myelocytes, and promyelocytes. Blood smears from CBCs yielding IG's will be scanned manually for concordance. If this scan disagrees with the automated IG or if promyelocytes are noted, a manual differential will be performed. Immature Gran Absolute 0.12(H) 0.00 - 0.04 x10(3)/[facility] Blood specimen (specimen) 09/07/2018 7:44 AM EDT 09/07/2018 8:15 AM EDT Narrative Resulting Agency Comment Spec In Lab Diane Harris MD HEMATOLOGY ORDERABLE S [facility] [place] [address] * (ABNORMAL) Hemogram (09/07/2018 7:44 AM EDT) White Blood Cell 8.2 4.0 - 9.5 x10(3)/[facility] Red Blood Cell 3.62(L) 4.00 - 5.21 x10(6)/[facility] Hemoglobin 11.0(L) 11.7 - 15.5 gm/dL [facility] Hematocrit 34.0(L) 35.7 - 45.8 % [facility] Mean Cell Volume 93.9 82.6 - 94.4 fL [facility] Mean Cell Hemoglobin 30.4 27.1 - 32.0 pg [facility] Mean Cell Hemoglobin Concentration 32.4 31.7 - 35.0 gm/dL [facility] Platelet 226 145 - 357 x10(3)/mc L [facility] RDW Standard Deviation 44.3 37.0 - 46.0 fL [facility] RDW coefficient of variation 12.9 11.5 - 14.1 % [facility] Mean Platelet Volume 10.7 7.6 - 12.9 fL [facility] NRBC% auto 0.0 % [facility] NRBC Absolute 0.000 0.000 - 0.000 x10(3)/mc L [facility] Blood specimen (specimen) 09/07/2018 7:44 AM EDT 09/07/2018 8:15 AM EDT Narrative Resulting Agency Comment Spec In Lab Diane Harris MD HEMATOLOGY ORDERABLE S [facility] [place] [address] * Basic Metabolic Panel (non-fasting) (09/07/2018 7:44 AM EDT) Glucose 75 65 - 199 mg/dL [facility] Comment:Diabetes: >=200 mg/d L plus symptoms Blood Urea Nitrogen 17 8 - 18 mg/dL [facility] Creatinine 0.77 0.70 - 1.20 mg/dL [facility] Sodium 141 135 - 145 mmol/L [facility] Potassium 4.1 3.5 - 5.0 mmol/L [facility] Comment: Please note: ??Patients with WBC >100,000 may have falsely elevated Potassium levels. ??For accurate Potassium quantification in these patients send serum separator tube (gold top) for subsequent determinations. ??Contact the Clinical Chemistry Laboratory if there are any questions. Chloride 104 98 - 107 mmol/L [facility] Carbon Dioxide 28 22 - 31 mmol/L [facility] Anion Gap 9 5 - 15 mmol/L [facility] Calcium 8.5 8.5 - 10.5 mg/dL [facility] Est Glomerular Filtration Rate 105 >=60 mL/min/1. 73 m?? [facility] Comment: The eGFR was calculated using the CKD-EPI equation. As with all creatinine based estimates of kidney function, eGFR values calculated with the CKD-EPI equation are not accurate in patients with acute kidney failure, extremes of body mass or the acutely ill. [email or web address] eGFR 122 >=60 mL/min/1. 73 m?? [facility] Comment: The eGFR was calculated using the CKD-EPI equation. As with all creatinine based estimates of kidney function, eGFR values calculated with the CKD-EPI equation are not accurate in patients with acute kidney failure, extremes of body mass or the acutely ill. [email or web address] Blood specimen (specimen) 09/07/2018 7:44 AM EDT 09/07/2018 8:15 AM EDT Narrative Resulting Agency Comment Spec In Lab Meagan Garza MD CHEMISTRY ORDERABL ES [facility] [place] [address] * (ABNORMAL) Hepatic Function Panel (09/07/2018 7:44 AM EDT) Protein, Total 6.3 6.1 - 8.0 gm/dL [facility] Albumin 3.1(L) 3.2 - 5.2 gm/dL [facility] Aspartate Aminotransferase 25 0 - 30 unit/L [facility] Alanine Aminotransferase 33(H) 0 - 30 unit/L [facility] Alkaline Phosphatase 99 40 - 104 unit/L [facility] Bilirubin, Total <0.2(L) 0.2 - 1.3 mg/dL [facility] Bilirubin, Direct 0.1 0.0 - 0.3 mg/dL [facility] Blood specimen (specimen) 09/07/2018 7:44 AM EDT 09/07/2018 8:15 AM EDT Narrative Resulting Agency Comment Spec In Lab Meagan Garza MD CHEMISTRY ORDERABL ES Performing Organization Address [facility] Co de Phone Number [facility] [place] [address] * (ABNORMAL) Phosphorus (09/07/2018 7:44 AM EDT) Phosphorus 4.6(H) 2.5 - 4.5 mg/dL [facility] Blood specimen (specimen) 09/07/2018 7:44 AM EDT 09/07/2018 8:15 AM EDT Narrative Resulting Agency Comment Spec In Lab Meagan Garza MD CHEMISTRY ORDERABL ES Performing Organization Address [facility] Co de Phone Number [facility] [place] [address] * Magnesium (09/07/2018 7:44 AM EDT) Magnesium 0.73 0.69 - 1.07 mmol/L [facility] Blood specimen (specimen) 09/07/2018 7:44 AM EDT 09/07/2018 8:15 AM EDT Narrative Resulting Agency Comment Spec In Lab Meagan Garza MD CHEMISTRY ORDERABL ES Performing Organization Address [facility] Co de Phone Number [facility] [place] [address] * CT Venogram of Brain (09/06/2018 8:08 PM EDT) Anatomical Region Laterality Modality Head Computed Tomogra phy Impressions 09/06/2018 8:45 PM EDT No central branch occlusion. Relative paucity of branches in the right frontal MCA territory could reflect distal branch occlusion, though the cut off is not identified. No evidence for dural venous sinus thrombosis. Thank you for letting us participate in the care of this patient. For questions regarding this report, please contact the number below. ? Narrative 09/06/2018 8:45 PM EDT EXAMINATION: CT ANGIOGRAM [place], CT VENOGRAM OF BRAIN CLINICAL HISTORY: hx prior aneurysm coiling, new onset infarcts. concern for coil thrombosis vs CVT TECHNIQUE: CT angiogram of [place] and CT venogram head were performed after the intravenous administration of 65 cc Omnipaque 350, MIP reconstructions were reviewed after being processed on an independent workstation COMPARISON: MRI brain and MRA [place] 09/04/2018 FINDINGS: CTA head: There is streak artifact related to stent assisted coiled right paraclinoid aneurysm which limits evaluation for aneurysm filling within does not appear to be any. Visualized portions of the right ICA appear patent. 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 Central KONRAD and MCA branches are normal in caliber. Somewhat relative paucity of distal anterior right MCA branches in the right frontal region. The vertebral arteries are codominant in the visualized portions are normal in caliber. Basilar artery and major branches demonstrate no abnormality. No evidence for acute intracranial process. CTV head: Normal opacification of the major dural venous sinuses without evidence for stenosis or thrombosis. Major superficial cortical veins appear patent. Procedure Note Elva John MD - 09/06/2018 EXAMINATION: CT ANGIOGRAM [place], CT VENOGRAM OF BRAIN CLINICAL HISTORY: hx prior aneurysm coiling, new onset infarcts. concernfor coil thrombosis vs CVT TECHNIQUE: CT angiogram of [place] and CT venogram headwere performed after the intravenous administration of 65 cc Omnipaque 350,MIP reconstructions were reviewed after being processed on an independent workstation COMPARISON: MRI brain and MRA [place] 09/04/2018 FINDINGS: CTA head: There is streak artifact related to stent assisted coiledright paraclinoid aneurysm which limits evaluation for aneurysm filling withindoes not appear to be any. 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 Somewhat relative paucity ofdistal anterior right MCA branches in the right frontal region. The vertebralarteries are codominant in the visualized portions are normal in caliber. Basilarartery and major branches demonstrate no abnormality. No evidence for acute intracranial process. CTV head: Normal opacification of the major dural venous sinuses without evidence for stenosis or thrombosis. Major superficial cortical veinsappear patent. IMPRESSION No central branch occlusion. Relative paucity of branches in the rightfrontal MCA territory could reflect distal branch occlusion, though the cut off isnot identified. No evidence for dural venous sinus thrombosis. Thank you for letting us participate in the care of this patient. Forquestions regarding this report, please contact the number below. Meagan Garza MD IMG CT ORDERABLES * CT Angiogram [place] (09/06/2018 8:08 PM EDT) Anatomical Region Laterality Modality Neck, Head Computed Tomogra phy Impressions 09/06/2018 8:45 PM EDT No central branch occlusion. Relative paucity of branches in the right frontal MCA territory could reflect distal branch occlusion, though the cut off is not identified. No evidence for dural venous sinus thrombosis. Thank you for letting us participate in the care of this patient. For questions regarding this report, please contact the number below. ? Electronically signed by: BRITTANI Reddy [facility] ([phone]), at 09/06/2018 8:45 PM Narrative 09/06/2018 8:45 PM EDT EXAMINATION: CT ANGIOGRAM [place], CT VENOGRAM OF BRAIN CLINICAL HISTORY: hx prior aneurysm coiling, new onset infarcts. concern for coil thrombosis vs CVT TECHNIQUE: CT angiogram of [place] and CT venogram head were performed after the intravenous administration of 65 cc Omnipaque 350, MIP reconstructions were reviewed after being processed on an independent workstation COMPARISON: MRI brain and MRA [place] 09/04/2018 FINDINGS: CTA head: There is streak artifact related to stent assisted coiled right paraclinoid aneurysm which limits evaluation for aneurysm filling within does not appear to be any. Visualized portions of the right ICA appear patent. 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 Central KONRAD and MCA branches are normal in caliber. Somewhat relative paucity of distal anterior right MCA branches in the right frontal region. The vertebral arteries are codominant in the visualized portions are normal in caliber. Basilar artery and major branches demonstrate no abnormality. No evidence for acute intracranial process. CTV head: Normal opacification of the major dural venous sinuses without evidence for stenosis or thrombosis. Major superficial cortical veins appear patent. Procedure Note Elva John MD - 09/06/2018 EXAMINATION: CT ANGIOGRAM [place], CT VENOGRAM OF BRAIN CLINICAL HISTORY: hx prior aneurysm coiling, new onset infarcts. concernfor coil thrombosis vs CVT TECHNIQUE: CT angiogram of [place] and CT venogram headwere performed after the intravenous administration of 65 cc Omnipaque 350,MIP reconstructions were reviewed after being processed on an independent workstation COMPARISON: MRI brain and MRA [place] 09/04/2018 FINDINGS: CTA head: There is streak artifact related to stent assisted coiledright paraclinoid aneurysm which limits evaluation for aneurysm filling withindoes not appear to be any. 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 Somewhat relative paucity ofdistal anterior right MCA branches in the right frontal region. The vertebralarteries are codominant in the visualized portions are normal in caliber. Basilarartery and major branches demonstrate no abnormality. No evidence for acute intracranial process. CTV head: Normal opacification of the major dural venous sinuses without evidence for stenosis or thrombosis. Major superficial cortical veinsappear patent. IMPRESSION No central branch occlusion. Relative paucity of branches in the rightfrontal MCA territory could reflect distal branch occlusion, though the cut off isnot identified. No evidence for dural venous sinus thrombosis. Thank you for letting us participate in the care of this patient. Forquestions regarding this report, please contact the number below. Meagan Garza MD IMG CT ORDERABLES * ECHO COMPLETE W CONTRAST (09/06/2018 1:31 PM EDT) [facility] EF 45 [facility]ART[facility] SYSTEM Anatomical Region Laterality Modality Other 09/06/2018 Narrative 09/06/2018 2:31 PM EDT Procedure: ?Transthoracic Echocardiogram Patient: ?TERESA Augustin ? (Age): 1990(27y) Med Rec#: ? [id number] ?Sex: ?F ? Site Loc: ? [facility] ?Ht / Wt: ??157(cm)/107(kg) Pt. Loc: ?Adult Floor ? BSA: ?2.05 Study Date: ?? 09/06/2018 ?Pt. Type: Inpatient Tape: ? Referring: LM Referring: Meagan Garza Reading: Joseph Moncada ([id number]) Airbrush Artist Photography: Laureano Rodgers Diagnosis: *Cerebral infarction, unspecified (I63.9) *Palpitations (R00.2) BP: ? 140/89 SUMMARY: 1. The left ventricle is mildly dilated.(EDV 69 ml/m2). Left ventricular wall thickness is normal. Global left ventricular systolic function is mildly reduced. ??Ejection fraction is estimated to be 45%. There is diffuse hypokinesis present. 2. The left atrium is mildly dilated. A patent foramen ovale is demonstrated by agitated saline injection. 3. Right ventricular chamber size, wall thickness, and systolic function are within normal limits. 4. The cardiac valves appear structurally and functionally normal. Findings ? : Study Quality: ? Adequate Definity used for better visualization of LV apex in patient with history of multiple emoblic strokes. Left Ventricle: ? The left ventricle is mildly dilated.(EDV 69 ml/m2). ?Left ventricular wall thickness is normal. ?There is no evidence of LVOT obstruction. ?No ventricular septal defect is visualized. ?Global left ventricular systolic function is mildly reduced. Ejection fraction is estimated to be 45%. ?The quantitative left ventricular ejection fraction by biplane Marcano's method is 37%. ?There is diffuse hypokinesis present. ?Doppler assessment is consistent with normal left sided filling pressure. ?The ??basal anteroseptal, basal anterior, basal anterolateral, basal inferolateral, basal inferior, basal inferoseptal, mid anteroseptal, mid anterior, mid anterolateral, mid inferolateral, mid inferior, mid inferoseptal, apical septal, apical anterior, apical lateral, and apical inferior wall segments are hypokinetic (score 2). ?Overall wallmotion score index is ??2.00 ?No thrombus is visualized within the left ventricle. Left Atrium: ? The left atrium is mildly dilated. ?No thrombus is visualized within the left atrium. ?The patent foramen ovale is demonstrated by agitated saline injection. Right Ventricle: ? Right ventricular chamber size, wall thickness, and systolic function are within normal limits. Right Atrium: ? The right atrium appears normal. Aortic Valve: ? The aortic valve is trileaflet. The leaflets are thin with normal excursion. There is no aortic stenosis or regurgitation present. Mitral Valve: ? The mitral valve appears normal in structure and function. ?There is no evidence of mitral valve leaflet prolapse. ?There is trace mitral regurgitation present. Tricuspid Valve: ? The tricuspid valve appears normal in structure and function. ?There is trace tricuspid regurgitation present. Pulmonic Valve: ? The pulmonic valve appears normal in structure and function. Pericardium: ? The pericardium appears normal and there is no evidence of a pericardial effusion. Aorta: ? The aortic root is normal in size. ?The ascending aorta is normal in size. ?There is no evidence of coarctation of the aorta. Pulmonary Artery: ? The main pulmonary artery appears normal. Venous: ? The inferior vena cava appears normal in size. ?There is a greater than 50% respiratory change in the inferior vena cava dimension. Misc: ? The cardiac valves appear structurally and functionally normal. ?See remainder of report for additional findings. ?Two-dimensional echo, spectral Doppler and color Doppler performed. ?Definity contrast (one 1.5 ml vial)was used to enhance endocardial definition. Excess contrast was discarded. Chambers 2D ?Value ?Units (Range) ? IVSd (2D) ? 0.8 ?cm ? LVPWd (2D) ?0.8 ?cm ? IVS:LVPW ratio (2D) 1 ?ratio ? RWT (2D) ?0.3 ?ratio ? RWT PW (2D) ? 0.3 ?ratio ? LVIDd (2D) ?5.3 ?cm ? LVIDs (2D) ?3.9 ?cm ? LVIDd (2D) index ?2.6 ?cm/m2 ? LVIDs (2D) index ?1.9 ?cm/m2 ? LV FS (2D) ?26 ? % ? EF Teichholz (2D) ?? 51 ? % ? Ao root diameter (2D3 ?cm (2.1 - 3.6) ? Ascending Ao ?2.7 ?cm (2 - 3.5) ? Volumes/Mass ?Value ?Units (Range) ? LA Area 4 CH ?24.2 ? cm2 (<21) ? LA ESV BP (A/L) inde37.2 ? ml/m2 ? RA AREA 4CH ? 14.1 ? cm2 ? LV EDV BP ? 141 ?ml ? LV ESV BP ? 89 ? ml ? LV EDV BP index ? 68.8 ? ml/m2 ? LV ESV BP index ? 43.4 ? ml/m2 ? BP EF (MOD) ? 37 ? % ? LV mass (2D) ?148.3 ?g ? LV mass (2D) index ??72.3 ? g/m2 ? Diastolic/Systolic Function ?Value ?Units (Range) ? MV E-wave Vmax ?1.1 ?m/sec ? MV deceleration wabs361.7 ?msec ? MV A-wave Vmax ?0.7 ?m/sec ? MV E:A ratio ?1.5 ?ratio ? LV septal e' Vmax ?? 0.1 ?m/sec ? LV lateral e' Vmax ??0.1 ?m/sec ? LV average e' Vmax ??0.1 ?m/sec ? LV E:e' septal ratio10.7 ? ratio ? LV E:e' lateral rati7.6 ?ratio ? LV average E:e' rati8.9 ?ratio ? Tricuspid Valve ?Value ?Units (Range) ? TR Vmax ? 2.1 ?m/sec ? TR peak gradient ?18.3 ? mmHg ? RAP ? 3 ?mmHg ? RVSP ?21.3 ? mmHg ? Pulmonic Valve/Qp:Qs ?Value ?Units (Range) ? PA end-diastolic Vma1.4 ?m/sec ? PA end-diastolic pre11 ? mmHg ? Wall Motion: Segment Name ?Rest ? Base-Anteroseptal ?? Hypokinetic ? Base-Anterior ? Hypokinetic ? Base-Anterolateral ??Hypokinetic ? Base-Posterolateral Hypokinetic ? Base-Inferior ? Hypokinetic ? Base-Inferoseptal ?? Hypokinetic ? Mid-Anteroseptal ?Hypokinetic ? Mid-Anterior ?Hypokinetic ? Mid-Anterolateral ?? Hypokinetic ? Mid-Posterolateral ??Hypokinetic ? Mid-Inferior ?Hypokinetic ? Mid-Inferoseptal ?Hypokinetic ? Davis-Septal ? Hypokinetic ? Davis-Anterior ? Hypokinetic ? Davis-Lateral ?Hypokinetic ? Davis-Inferior ? Hypokinetic ? Davis-Tip ?Hypokinetic ? This report has been electronically signed by: Joseph Moncada MD ? 09/06/2018 14:30:44 Images reviewed and interpretation verified [facility] Procedure Note Joseph Moncada MD - 09/06/2018 Procedure: Transthoracic Echocardiogram Patient: TERESA Augustin (Age): 1990(27y) Med Rec#: [id number] Sex: F Site Loc: [facility] [place] Ht / Wt: 157(cm)/107(kg) Pt. Loc: Adult Floor BSA: 2.05 Study Date: 09/06/2018 Pt. Type: Inpatient Tape: Referring: LM Referring: Meagan Garza Reading: Joseph Moncada ([id number]) Airbrush Artist Photography: Laureano Rodgers Diagnosis: *Cerebral infarction, unspecified (I63.9) *Palpitations (R00.2) BP: 140/89 SUMMARY: 1. The left ventricle is mildly dilated.(EDV [...] cardiac valves appear structurally and functionally normal. Findings : Study Quality: Adequate Definity used for better visualization of LV apex in patient with history of multiple emoblic strokes. Left Ventricle: The left ventricle is mildly dilated.(EDV 69 ml/m2). Left ventricular wall thickness is normal. There is no evidence of LVOT obstruction. No ventricular septal defect is visualized. Global left ventricular systolic function is mildly reduced. Ejection fraction is estimated to be 45%. The quantitative left ventricular ejection fraction by biplane Marcano's method is 37%. There is diffuse hypokinesis present. Doppler assessment is consistent with normal left sided filling pressure. The basal anteroseptal, basal anterior, basal anterolateral, basal inferolateral, basal inferior, basal inferoseptal, mid anteroseptal, mid anterior, mid anterolateral, mid inferolateral, mid inferior, mid inferoseptal, apical septal, apical anterior, apical lateral, and apical inferior wall segments are hypokinetic (score 2). Overall wallmotion score index is 2.00 No thrombus is visualized within the left ventricle. Left Atrium: The left atrium is mildly dilated. No thrombus is visualized within the left atrium. The patent foramen ovale is demonstrated by agitated saline injection. Right Ventricle: Right ventricular chamber size, wall thickness, and systolic function are within normal limits. Right Atrium: The right atrium appears normal. Aortic Valve: The aortic valve is trileaflet. The leaflets are thin with normal excursion. There is no aortic stenosis or regurgitation present. Mitral Valve: The mitral valve appears normal in structure and function. There is no evidence of mitral valve leaflet prolapse. There is trace mitral regurgitation present. Tricuspid Valve: The tricuspid valve appears normal in structure and function. There is trace tricuspid regurgitation present. Pulmonic Valve: The pulmonic valve appears normal in structure and function. Pericardium: The pericardium appears normal and there is no evidence of a pericardial effusion. Aorta: The aortic root is normal in size. The ascending aorta is normal in size. There is no evidence of coarctation of the aorta. Pulmonary Artery: The main pulmonary artery appears normal. Venous: The inferior vena cava appears normal in size. There is a greater than 50% respiratory change in the inferior vena cava dimension. Misc: The cardiac valves appear structurally and functionally normal. See remainder of report for additional findings. Two-dimensional echo, spectral Doppler and color Doppler performed. Definity contrast (one 1.5 ml vial)was used to enhance endocardial definition. Excess contrast was discarded. Chambers 2D Value Units (Range) IVSd (2D) 0.8 cm LVPWd (2D) 0.8 cm IVS:LVPW ratio (2D) 1 ratio RWT (2D) 0.3 ratio RWT PW (2D) 0.3 ratio LVIDd (2D) 5.3 cm LVIDs (2D) 3.9 cm LVIDd (2D) index 2.6 cm/m2 LVIDs (2D) index 1.9 cm/m2 LV FS (2D) 26 % EF Teichholz (2D) 51 % Ao root diameter (2D3 cm (2.1 - 3.6) Ascending Ao 2.7 cm (2 - 3.5) Volumes/Mass Value Units (Range) LA Area 4 CH 24.2 cm2 (<21) LA ESV BP (A/L) inde37.2 ml/m2 RA AREA 4CH 14.1 cm2 LV EDV BP 141 ml LV ESV BP 89 ml LV EDV BP index 68.8 ml/m2 LV ESV BP index 43.4 ml/m2 BP EF (MOD) 37 % LV mass (2D) 148.3 g LV mass (2D) index 72.3 g/m2 Diastolic/Systolic Function Value Units (Range) MV E-wave Vmax 1.1 m/sec MV deceleration vmgv197.7 msec MV A-wave Vmax 0.7 m/sec MV E:A ratio 1.5 ratio LV septal e' Vmax 0.1 m/sec LV lateral e' Vmax 0.1 m/sec LV average e' Vmax 0.1 m/sec LV E:e' septal ratio10.7 ratio LV E:e' lateral rati7.6 ratio LV average E:e' rati8.9 ratio Tricuspid Valve Value Units (Range) TR Vmax 2.1 m/sec TR peak gradient 18.3 mmHg RAP 3 mmHg RVSP 21.3 mmHg Pulmonic Valve/Qp:Qs Value Units (Range) PA end-diastolic Vma1.4 m/sec PA end-diastolic pre11 mmHg Wall Motion: Segment Name Rest Base-Anteroseptal Hypokinetic Base-Anterior Hypokinetic Base-Anterolateral Hypokinetic Base-Posterolateral Hypokinetic Base-Inferior Hypokinetic Base-Inferoseptal Hypokinetic Mid-Anteroseptal Hypokinetic Mid-Anterior Hypokinetic Mid-Anterolateral Hypokinetic Mid-Posterolateral Hypokinetic Mid-Inferior Hypokinetic Mid-Inferoseptal Hypokinetic Davis-Septal Hypokinetic Davis-Anterior Hypokinetic Davis-Lateral Hypokinetic Davis-Inferior Hypokinetic Davis-Tip Hypokinetic This report has been electronically signed by: Joseph Moncada MD 09/06/2018 14:30:44 Images reviewed and interpretation verified [facility] Meagan Garza MD ECHO ORDERABLES * Lipid Panel (09/06/2018 10:02 AM EDT) Cholesterol, Total 130 mg/dL [facility] Comment: Lower Risk: <200 mg/dL Average Risk: 200-239 mg/dL Higher Risk: >rv=985 mg/dL Triglyceride 173 mg/dL [facility] Comment: Average Risk/Lower Risk: <150 mg/dL Borderline High Risk: 150-199 mg/dL High Risk: 200-499 mg/dL Very High Risk: >te=144 mg/dL HDL Cholesterol 36 mg/dL [facility] Comment: Males: ?? Higher Risk: <40 mg/dL Females: ?? HIgher Risk: <50 mg/dL LDL Cholesterol 59 mg/dL [facility] Comment: Lowest Risk: <100 mg/dL Lower Risk: 100-129 mg/dL Borderline High Risk: 130-159 mg/dL High Risk: 160-189 mg/dL Very High Risk: >sq=059 mg/dL Cholesterol/HDL Ratio 3.6 ratio [facility] Lipid Interpretation See Note [facility] Comment: Lipid management should be guided by a patient? s ASCVD risk, goals and preferences. ACC/AHA Guidelines recommend high intensity statin if clinical ASCVD or LDL greater than or equal to 190 mg/dL. http://tinyurl.com/HWD-XYY-Wmnhnvbmw Adults aged 40-75 with LDL 70-189 mg/dL should have their 10 year ASCVD risk estimated with the ACC/AHA ASCVD risk construction estimator http://tools.acc.org/TGFSE-Csfs-Rtdsbsouh/ Statin should be discussed if risk greater than or equal to 7.5% in non-diabetics. With diabetes, moderate intensity statin is recommended if risk less than 7.5%, high intensity if risk greater than or equal to 7.5%. Annual lipid monitoring on statins is not necessary. Evaluate secondary causes of Triglycerides greater than 500 mg/dL or LDL greater than 190 mg/dL: See table 6 of ACC/AHA Guideline. Lifestyle modification is a critical component of ASCVD risk reduction. Blood specimen (specimen) 09/06/2018 10:02 AM EDT 09/06/2018 11:07 AM EDT Narrative Resulting Agency Comment Spec In Lab Meagan Garza MD CHEMISTRY ORDERABL ES [facility] [place] [address] * (ABNORMAL) BMP w/fasting Glucose (09/06/2018 10:01 AM EDT) Glucose Fasting 108(H) 65 - 99 mg/dL [facility] Comment: ?Fasting* Glucose Interpretive Criteria Normal ?65-99 mg/dL Impaired Fasting glucose ?100-125 mg/dL Consistent with Diabetes Mellitus ? >or= 126 mg/dL *Fasting is defined as no caloric intake for at least 8 hours In the absence of unequivocal hyperglycemia a plasma glucose value of >or= 126 mg/dL should be repeated on a subsequent day. Diagnosis and Classification of Diabetes Mellitus, Position Statement from the [employer]. ??Diabetes Care, Volume 33, Supplement 1, Apr 2009 Blood Urea Nitrogen 23(H) 8 - 18 mg/dL [facility] Creatinine 0.77 0.70 - 1.20 mg/dL [facility] Sodium 142 135 - 145 mmol/L [facility] Potassium 4.1 3.5 - 5.0 mmol/L [facility] Comment: Please note: ??Patients with WBC >100,000 may have falsely elevated Potassium levels. ??For accurate Potassium quantification in these patients send serum separator tube (gold top) for subsequent determinations. ??Contact the Clinical Chemistry Laboratory if there are any questions. Chloride 106 98 - 107 mmol/L [facility] Carbon Dioxide 26 22 - 31 mmol/L [facility] Anion Gap 10 5 - 15 mmol/L [facility] Calcium 8.9 8.5 - 10.5 mg/dL [facility] Est Glomerular Filtration Rate 105 >=60 mL/min/1. 73 m?? [facility] Comment: The eGFR was calculated using the CKD-EPI equation. As with all creatinine based estimates of kidney function, eGFR values calculated with the CKD-EPI equation are not accurate in patients with acute kidney failure, extremes of body mass or the acutely ill. http://QR Wild/[facility]nk[facility] eGFR 122 >=60 mL/min/1. 73 m?? [facility] Comment: The eGFR was calculated using the CKD-EPI equation. As with all creatinine based estimates of kidney function, eGFR values calculated with the CKD-EPI equation are not accurate in patients with acute kidney failure, extremes of body mass or the acutely ill. http://QR Wild/[facility] [place] Blood specimen (specimen) 09/06/2018 10:01 AM EDT 09/06/2018 11:07 AM EDT Narrative Resulting Agency Comment Spec In Lab Diane Harris MD CHEMISTRY ORDERABLES [facility] [place] [address] * (ABNORMAL) Differential, Automated (09/06/2018 10:01 AM EDT) Neutrophil % 53.0 % [facility] Neutrophil Absolute 4.93 1.70 - 6.10 x10(3)/mc L [facility] Lymph % 38.7 % [facility] Lymphocytes Abs 3.6(H) 0.9 - 3.2 x10(3)/mc L [facility] Monocyte % 6.1 % [facility] Monocyte Abs 0.6 0.3 - 0.9 x10(3)/[facility] Eos % 1.3 % [facility] Eosinophils Abs 0.1 0.0 - 0.4 x10(3)/[facility] Basophil % 0.3 % [facility] Baso Absolute 0.0 0.0 - 0.1 x10(3)/[facility] Immature Gran % 0.60 % [facility] Comment: Immature granulocytes(IG's)percentage and absolute count will include metamyelocytes, myelocytes, and promyelocytes. Blood smears from CBCs yielding IG's will be scanned manually for concordance. If this scan disagrees with the automated IG or if promyelocytes are noted, a manual differential will be performed. Immature Gran Absolute 0.06(H) 0.00 - 0.04 x10(3)/[facility] Blood specimen (specimen) 09/06/2018 10:01 AM EDT 09/06/2018 11:07 AM EDT Narrative Resulting Agency Comment Spec In Lab Diane Harris MD HEMATOLOGY ORDERABLE S [facility] [place] [address] * (ABNORMAL) Hemogram (09/06/2018 10:01 AM EDT) White Blood Cell 9.3 4.0 - 9.5 x10(3)/[facility] Red Blood Cell 3.43(L) 4.00 - 5.21 x10(6)/[facility] Hemoglobin 10.3(L) 11.7 - 15.5 gm/dL [facility] Hematocrit 32.4(L) 35.7 - 45.8 % [facility] Mean Cell Volume 94.5(H) 82.6 - 94.4 fL [facility] Mean Cell Hemoglobin 30.0 27.1 - 32.0 pg [facility] Mean Cell Hemoglobin Concentration 31.8 31.7 - 35.0 gm/dL [facility] Platelet 192 145 - 357 x10(3)/mc L [facility] RDW Standard Deviation 45.6 37.0 - 46.0 fL [facility] RDW coefficient of variation 13.2 11.5 - 14.1 % [facility] Mean Platelet Volume 11.1 7.6 - 12.9 fL [facility] NRBC% auto 0.0 % [facility] NRBC Absolute 0.000 0.000 - 0.000 x10(3)/mc L [facility] Blood specimen (specimen) 09/06/2018 10:01 AM EDT 09/06/2018 11:07 AM EDT Narrative Resulting Agency Comment Spec In Lab Diane Harris MD HEMATOLOGY ORDERABLE S [facility] [place] [address] * Triglyceride (09/06/2018 10:01 AM EDT) Triglyceride 171 mg/dL [facility] Comment: Average Risk/Lower Risk: <150 mg/dL Borderline High Risk: 150-199 mg/dL High Risk: 200-499 mg/dL Very High Risk: >qr=712 mg/dL Blood specimen (specimen) 09/06/2018 10:01 AM EDT 09/06/2018 11:07 AM EDT Narrative Resulting Agency Comment Spec In Lab Meagan Garza MD CHEMISTRY ORDERABL ES [facility] [place] [address] * HDL/Cholesterol Profile (09/06/2018 10:01 AM EDT) Cholesterol, Total 129 mg/dL [facility] Comment: Lower Risk: <200 mg/dL Average Risk: 200-239 mg/dL Higher Risk: >zw=541 mg/dL HDL Cholesterol 37 mg/dL [facility] Comment: Males: ?? Higher Risk: <40 mg/dL Females: ?? HIgher Risk: <50 mg/dL Cholesterol/HDL Ratio 3.5 ratio [facility] Chol/HDL Interpretation See Note [facility] Comment: Lipid management should be guided by a patient? s ASCVD risk, goals and preferences. ACC/AHA Guidelines recommend high intensity statin if clinical ASCVD or LDL greater than or equal to 190 mg/dL. http://[employer].com/CBQ-OJS-Htlnvtflm Measure LDL if Total Cholesterol minus HDL Cholesterol is greater than 220 mg/dL. Adults aged 40-75 with LDL 70-189 mg/dL should have their 10 year ASCVD risk estimated with the ACC/AHA ASCVD risk construction estimator http://tools.acc.org/ATQYY-Idno-Lfqvnoiir/ Statin should be discussed if risk greater [...] Narrative Resulting Agency Comment Spec In Lab Meagan Garza MD CHEMISTRY ORDERABL ES [facility] [place] [address] * LDL Cholesterol, Direct (09/06/2018 10:01 AM EDT) LDL Cholesterol, Direct 70 mg/dL [facility] Comment: Lowest Risk: <100 mg/dL Lower Risk: 100-129 mg/dL Borderline High Risk: 130-159 mg/dL High Risk: 160-189 mg/dL Very High Risk: >ar=357 mg/dL Blood specimen (specimen) 09/06/2018 10:01 AM EDT 09/06/2018 11:07 AM EDT Narrative Resulting Agency Comment Spec In Lab Meagan Garza MD CHEMISTRY ORDERABL ES [facility] [place] [address] * Hemoglobin A1c (09/06/2018 10:01 AM EDT) Hemoglobin A1c 5.3 4.3 - 5.6 % [facility] Comment: Reference Range: 4.3 - 5.6% 5.7 - 6.4% - Increased Risk of Developing Diabetes Mellitus >= 6.5% - Consistent with diagnosis of Diabetes Mellitus In the absence of hyperglycemia (i.e. plasma glucose > 200 mg/dL) or classic symptoms of hyperglycemia a repeat measurement of HbA1c should be performed on a separate sample to confirm the diagnosis. Diagnosis and Classification of Diabetes Mellitus, Diabetes Care 2013; 36: Suppl. 1, S67-43 Estimated Average Glucose 105 mg/dL [facility] Comment: eAG equivalents for HbA1c percentages: HbA1c(%) ?eAG(mg/dL) 6.0 ?126 6.5 ?140 7.0 ?154 7.5 ?169 8.0 ?183 8.5 ?197 9.0 ?212 9.5 ?226 10.0 ? 240 Limitations: The eAG calculation has not been validated on women, individuals below 18 years old and above 70 years old, and individuals with hemoglobinopathies. Additional resources are available on the ADA website. Anthony PALM, Taniya J, Gustavo R, et al. ??Translating the A1C assay into estimated average glucose values. ??Diabetes Care 2008:31(8):3715-8639. Blood specimen (specimen) 09/06/2018 10:01 AM EDT 09/06/2018 11:07 AM EDT Narrative Resulting Agency Comment Spec In Lab Meagan Garza MD CHEMISTRY ORDERABL ES Performing Organization Address [facility] Co de Phone Number [facility] [place] [address] * (ABNORMAL) Hepatic Function Panel (09/06/2018 10:01 AM EDT) Protein, Total 6.0(L) 6.1 - 8.0 gm/dL [facility] Albumin 2.9(L) 3.2 - 5.2 gm/dL [facility] Aspartate Aminotransferase 16 0 - 30 unit/L [facility] Alanine Aminotransferase 28 0 - 30 unit/L [facility] Alkaline Phosphatase 102 40 - 104 unit/L [facility] Bilirubin, Total <0.2(L) 0.2 - 1.3 mg/dL [facility] Bilirubin, Direct <0.1 0.0 - 0.3 mg/dL [facility] Blood specimen (specimen) 09/06/2018 10:01 AM EDT 09/06/2018 11:07 AM EDT Narrative Resulting Agency Comment Spec In Lab Meagan Garza MD CHEMISTRY ORDERABL ES Performing Organization Address [facility] Co de Phone Number [facility] [place] [address] * Phosphorus (09/06/2018 10:01 AM EDT) Phosphorus 2.8 2.5 - 4.5 mg/dL [facility] Blood specimen (specimen) 09/06/2018 10:01 AM EDT 09/06/2018 11:07 AM EDT Narrative Resulting Agency Comment Spec In Lab Meagan Garza MD CHEMISTRY ORDERABL ES Performing Organization Address [facility] [place] Number [facility] [place] [address] * (ABNORMAL) Magnesium (09/06/2018 10:01 AM EDT) Magnesium 0.68(L) 0.69 - 1.07 mmol/L [facility] Blood specimen (specimen) 09/06/2018 10:01 AM EDT 09/06/2018 11:07 AM EDT Narrative Resulting Agency Comment Spec In Lab Meagan Garza MD CHEMISTRY ORDERABL ES Performing Organization Address [facility] Number [facility] [place] [address] * Blood culture (09/05/2018 10:00 PM EDT) Blood Culture No growth at 5 days. [facility] Blood specimen (specimen) 09/05/2018 10:00 PM EDT 09/05/2018 10:17 PM EDT Narrative Resulting Agency Comment Spec In Lab Meagan Garza MD MICROBIOLOGY - BLO OD ORDERABLES Performing Organization Address [facility] Number [facility] [place] [address] * DNA Antibody (Double-Stranded) (09/05/2018 9:45 PM EDT) DNA Ab (DS) Neg Neg [facility] Blood specimen (specimen) 09/05/2018 9:45 PM EDT 09/06/2018 7:34 AM EDT Narrative Resulting Agency Comment Spec In Lab Meagan Garza MD LAB SEND OUT ORDER REBECA Performing Organization Address [facility]/ZIP Co de Phone Number [facility] [place] [address] * SS-B/La Antibody (09/05/2018 9:45 PM EDT) SS-B/La Ab <0.2 <1.0 (Negative) [facility] Comment: Test Performed by: [place] [address] Blood specimen (specimen) 09/05/2018 9:45 PM EDT 09/06/2018 8:34 AM EDT Narrative Resulting Agency Comment Spec In Lab Meagan Garza MD LAB SEND OUT ORDER REBECA Performing Organization Address [facility] Co de Phone Number [facility] [place] [address] * SS-A/Ro Antibody (09/05/2018 9:45 PM EDT) Pathologist [facility] SS-A/Ro Ab <0.2 <1.0 (Negative) [facility] Comment: Test Performed by: [facility] [place] [address] Blood specimen (specimen) 09/05/2018 9:45 PM EDT 09/06/2018 8:34 AM EDT Narrative Resulting Agency Comment Spec In Lab Meagan Garza MD LAB SEND OUT ORDER REBECA Performing Organization Address [facility] Co de Phone Number [facility] [place] [address] * C4 Complement (09/05/2018 9:45 PM EDT) Complement C4 30 10 - 40 mg/dL [facility] Blood specimen (specimen) 09/05/2018 9:45 PM EDT 09/05/2018 10:08 PM EDT Narrative Resulting Agency Comment Spec In Lab Meagan Garza MD CHEMISTRY ORDERABL ES [facility] [place] [address] * C3 Complement (09/05/2018 9:45 PM EDT) Complement C3 111 90 - 180 mg/dL [facility] Blood specimen (specimen) 09/05/2018 9:45 PM EDT 09/05/2018 10:08 PM EDT Narrative Resulting Agency Comment Spec In Lab Meagan Garza MD CHEMISTRY ORDERABL ES Performing Organization Address [facility]/ZIP Co de Phone Number [facility] [place] [address] * Proteinase-3 Antibody (09/05/2018 9:45 PM EDT) Proteinase 3 Antibody 3.4 <=20.0 unit(s) [facility] Blood specimen (specimen) 09/05/2018 9:45 PM EDT 09/06/2018 7:37 AM EDT Narrative Resulting Agency Comment Spec In Lab Meagan Garza MD IMMUNOLOGY ORDERAB LES Performing Organization Address [facility]/ZIP Co de Phone Number [facility] [place] [address] * Myeloperoxidase Ab (09/05/2018 9:45 PM EDT) Myeloperoxidase Antibody 2.0 <=20.0 unit(s) [facility] Blood specimen (specimen) 09/05/2018 9:45 PM EDT 09/06/2018 7:37 AM EDT Narrative Resulting Agency Comment Spec In Lab Meagan Garza MD IMMUNOLOGY ORDERAB LES Performing Organization Address City/[facility]/ZIP Co de Phone Number [facility] [place] [address] * Cytoplasmic Neutrophilic Ab (09/05/2018 9:45 PM EDT) C-Anca (AUGUST) Negative Negative [facility] Comment: Test Performed by: [facility] - [address] [address] P-Anca (AUGUST) Negative Negative [facility] Comment: Negative for cANCA and pANCA patterns by immunofluorescence. ADDITIONAL INFORMATION This test was developed and its performance characteristics determined by [facility] in a manner consistent with CLIA requirements. This test has not been cleared or approved by the U.S. Food and Drug Administration. Test Performed by: [facility] - [address] [address] Blood specimen (specimen) 09/05/2018 9:45 PM EDT 09/06/2018 8:34 AM EDT Narrative Resulting Agency Comment Spec In Lab Meagan Garza MD LAB SEND OUT ORDER REBECA Performing Organization Address City/[facility]/ZIP Co de Phone Number [facility] [place] [address] * (ABNORMAL) CRP, acute inflammation (09/05/2018 9:45 PM EDT) [facility] C-Reactive Protein 65.9(H) <=4.9 mg/L [facility] Blood specimen (specimen) 09/05/2018 9:45 PM EDT 09/05/2018 10:08 PM EDT Narrative Resulting Agency Comment Spec In Lab Meagan Garza MD CHEMISTRY ORDERABL ES Performing Organization Address [facility]/ZIP Co de Phone Number [facility] [place] [address] * (ABNORMAL) Sedimentation rate (09/05/2018 9:45 PM EDT) [facility] Sedimentation Rate Automated 24(H) 0 - 20 mm/hr [facility] Blood specimen (specimen) 09/05/2018 9:45 PM EDT 09/05/2018 10:08 PM EDT Narrative Resulting Agency Comment Spec In Lab Meagan Garza MD HEMATOLOGY ORDERAB LES Performing Organization Address [facility] Co de Phone Number [facility] [place] [address] * Blood culture (09/05/2018 9:45 PM EDT) Blood Culture No growth at 5 days. [facility] Blood specimen (specimen) 09/05/2018 9:45 PM EDT 09/05/2018 10:18 PM EDT Narrative Resulting Agency Comment Spec In Lab Meagan Garza MD MICROBIOLOGY - BLO OD ORDERABLES Performing Organization Address [facility] de Phone Number [facility] [place] [address] * Request For 2nd Read CT Head And Spine (09/05/2018 6:28 PM EDT) Anatomical Region Laterality Modality Head, C-spine, T-spine, L-spine SO Impressions 09/05/2018 7:08 PM EDT Evaluation is limited by motion and image disease. No evidence of acute hemorrhage. Right MCA distribution acute infarction. Paucity of vasculature in the region of right MCA distribution infarction, likely due occlusions of numerous distal vessels. Thank you for letting us participate in the care of this patient. For questions regarding this report, please contact the number below. ? Narrative 09/05/2018 7:08 PM EDT EXAMINATION: REQUEST FOR 2ND READ CT HEAD AND SPINE CLINICAL HISTORY: multifocal infarcts; eval for vessel disease, vasospasm,vasculitis; What Modality is the exam? CT Scan; Body Part (please add comments as necessary): CT/CTA Head and Neck; I believe a reinterpretation of this exam may alter care of Patient. Yes TECHNIQUE: Reviewing images of a CT acquired of the head and a CTA acquired of the neck and head. COMPARISON: CT head 04/15/2015. FINDINGS: CTA head: Substantial motion artifact the skull base limits evaluation. Coil artifact in the right paraclinoid region. No evidence of hemorrhage. Sites of cortical hypoattenuation in the right frontal lobe consistent with acute infarction. CTA: Examination limited by motion and image noise. Normal configuration of the great vessels. The right brachiocephalic and right ICA origin obscured. Otherwise normal. The right common carotid artery. Right ICA is normal. Left common carotid artery is normal in caliber. Left ICA is normal in caliber. The vertebral arteries are normal in course and caliber. CTA HEAD: Right paraclinoid ICA stent. Paucity of vasculature in the region of right MCA hypoattenuation with multiple small vessels terminating early.. Procedure Note Arleth Jain MD - 09/05/2018 EXAMINATION: REQUEST FOR 2ND READ CT HEAD AND SPINE CLINICAL HISTORY: multifocal infarcts; eval for vessel disease, vasospasm,vasculitis; What Modality is the exam? CT Scan; Body Part(please add comments as necessary): CT/CTA Head and Neck; I believe a reinterpretationof this exam may alter care of Patient. Yes TECHNIQUE: Reviewing images of a CT acquired of the head and a CTA acquired of theneck and head. COMPARISON: CT head 04/15/2015. FINDINGS: CTA head: Substantial motion artifact the skull base limits evaluation.Coil artifact in the right paraclinoid region. No evidence of hemorrhage. Sitesof cortical hypoattenuation in the right frontal lobe consistent with acute infarction. CTA: Examination limited by motion and image noise. Normal configuration of the great vessels. The right brachiocephalic andright ICA origin obscured. Otherwise normal. The right common carotid artery. Right ICA is normal. Left common carotid artery is normal in caliber. Left ICA is normal incaliber. The vertebral arteries are normal in course and caliber. CTA HEAD: Right paraclinoid ICA stent. Paucity of vasculature in theregion of right MCA hypoattenuation with multiple small vessels terminatingearly.. IMPRESSION Evaluation is limited by motion and image disease. No evidence of acute hemorrhage. Right MCA distribution acute infarction. Paucity of vasculature in the region of right MCA distributioninfarction, likely due occlusions of numerous distal vessels. Thank you for letting us participate in the care of this patient. Forquestions regarding this report, please contact the number below. Meagan Garza MD IMG OUTSIDE INTERP RETATION ORDERABLES * Request for 2nd read MR Head (09/05/2018 6:26 PM EDT) Anatomical Region Laterality Modality SO Impressions 09/05/2018 7:12 PM EDT Sites of right MCA distribution acute and chronic infarction. Thank you for letting us participate in the care of this patient. For questions regarding this report, please contact the number below. ? Narrative 09/05/2018 7:12 PM EDT EXAMINATION: REQUEST FOR 2ND READ MR HEAD CLINICAL HISTORY: new multifocal unexplained infarcts in a 27 yo F; suspect septic emboli vs vasocontriction; What Modality is the exam? MRI; Body Part (please add comments as necessary): MRI brain; I believe a reinterpretation of this exam may alter care of Patient. Yes TECHNIQUE: Reviewing MRI acquired of the brain before and after contrast administration and MRA acquired of the head. COMPARISON: CT 09/03/2018 FINDINGS: Motion artifact limits evaluation. Poor signal on the diffusion sequence. Multiple sites of acute cortical infarction in the right MCA distribution. Small site of right frontal cortical encephalomalacia from chronic infarction. No mass or mass effect. MRA: No proximal vascular thrombosis. Procedure Note Arleth Jain MD - 09/05/2018 EXAMINATION: REQUEST FOR 2ND READ MR HEAD CLINICAL HISTORY: new multifocal unexplained infarcts in a 27 yo F;suspect septic emboli vs vasocontriction; What Modality is the exam? MRI; BodyPart (please add comments as necessary): MRI brain; I believe areinterpretation of this exam may alter care of Patient. Yes TECHNIQUE: Reviewing MRI acquired of the brain before and after contrastadministration and MRA acquired of the head. COMPARISON: CT 09/03/2018 FINDINGS: Motion artifact limits evaluation. Poor signal on the diffusionsequence. Multiple sites of acute cortical infarction in the right MCA distribution.Small site of right frontal cortical encephalomalacia from chronic infarction.No mass or mass effect. MRA: No proximal vascular thrombosis. IMPRESSION Sites of right MCA distribution acute and chronic infarction. Thank you for letting us participate in the care of this patient. Forquestions regarding this report, please contact the number below. Meagan Garza MD IMG OUTSIDE INTERP RETATION ORDERABLES documented in this encounter Visit Diagnoses Not on filedocumented in this encounter Admitting Diagnoses Diagnosis Stroke Unspecified cerebral artery occlusion with cerebral infarction documented in this encounter Administered Medications Inactive Administered Medications - up to 3 most recent administrations Medication Order MAR Action Action Date Dose Rate Site aspirin EC tablet 81 mg 81 mg, Oral, DAILY, First dose on Briana 09/06/18 at 0900, Until Discontinued, Routine Given 09/12/2018 9:34 AM EDT 81 mg Given 09/11/2018 9:02 AM EDT 81 mg Given 09/10/2018 8:13 AM EDT 81 mg calcium carbonate (Tums) chewable tablet 500-1,000 mg 500-1,000 mg, Oral, EVERY 4 HOURS PRN, Starting on 09/08/18 at 0550, Until Mon09/12/18 at 2139, Heartburn, Give 500 mg (1 tablet) for mild to moderate heartburn. Give 1,000 mg (2 tablets) for severe heartburn., Routine Given 09/11/2018 11:28 AM EDT 500 mg Given 09/11/2018 12:59 AM EDT 1,000 mg Given 09/10/2018 3:56 PM EDT 1,000 mg clopidogrel (PLAVIX) tablet 75 mg 75 mg, Oral, DAILY, First dose on 09/08/18 at 0900, Until Discontinued, Routine Given 09/12/2018 9:34 AM EDT 75 mg Given 09/11/2018 9:04 AM EDT 75 mg Given 09/10/2018 8:13 AM EDT 75 mg cyanocobalamin (vitamin B-12) tablet 1,000 mcg 1,000 mcg, Oral, DAILY, First dose on Briana 09/06/18 at 1030, Until Discontinued, Routine Given 09/12/2018 9:35 AM EDT 1,000 mcg Given 09/11/2018 9:03 AM EDT 1,000 mcg Given 09/10/2018 8:13 AM EDT 1,000 mcg enoxaparin (LOVENOX) injection 40 mg 40 mg, Subcutaneous, NIGHTLY, First dose on Mon09/05/18 at 2100, Until Discontinued, Routine Given 09/11/2018 8:15 PM EDT 40 mg Given 09/10/2018 9:22 PM EDT 40 mg Given 09/09/2018 8:03 PM EDT 40 mg fluticasone propionate (FLOVENT) 220 mcg/actuation inhaler 2 puff 2 puff, Inhalation, 2 TIMES DAILY, First dose on Mon09/05/18 at 2100, Until Discontinued, Shake well; Rinse mouth after administration., Routine Given 09/12/2018 9:59 AM EDT 2 puffs Given 09/11/2018 8:12 PM EDT 2 puffs Given 09/11/2018 9:25 AM EDT 2 puffs gabapentin (NEURONTIN) capsule 400 mg 400 mg, Oral, 3 TIMES DAILY, First dose (after last modification) on 09/10/18 at 2100, Until Discontinued, Routine Given 09/12/2018 9:34 AM EDT 400 mg Given 09/11/2018 8:13 PM EDT 400 mg Given 09/11/2018 3:28 PM EDT 400 mg lactulose (Chronulac) (0.67 gram/mL) oral liquid 20 g 20 g, Oral, 2 TIMES DAILY PRN, Starting on Mon09/11/18 at 1323, Until Mon09/12/18 at 2139, Constipation, Routine lidocaine (LIDODERM) 5 % patch 1 patch 1 patch, Transdermal, EVERY 24 HOURS, First dose on Mon09/08/18 at 0900, Until Discontinued, Apply patch(es) for 12 hours, and then remove for 12 hours Apply to left shoulder, Routine Patch Applied 09/12/2018 9:35 AM EDT 1 patch 08- Back Lower (Right) Patch Applied 09/11/2018 8:56 AM EDT 1 patch 08- Back Lower (Right) Patch Applied 09/10/2018 8:15 AM EDT 1 patch 07- Back Lower (Left) lidocaine (LIDODERM) 5 %(700 mg/patch) Patch Removal Transdermal, EVERY 24 HOURS, First dose on Mon09/08/18 at 2100, Until Discontinued, Remove lidocaine 5 %(700 mg/patch) patch lidocaine (XYLOCAINE) 5 % ointment ONCE PRN, Starting on Mon09/12/18 at 1220, Until Mon09/12/18 at 2138, Intra-Operative (Intra-Procedure) Given 09/12/2018 12:20 PM EDT 1 inch 20-Other (document in comment section) lisinopril (PRINIVIL;ZESTRIL) tablet 5 mg 5 mg, Oral, DAILY, First dose on Mon09/12/18 at 0900, Until Discontinued, Routine Given 09/12/2018 9:34 AM EDT 5 mg magnesium sulfate 1g in dextrose 5% 100mL 1 g, Intravenous, DAILY, 10 doses, First dose on Mon09/11/18 at 0900, Last dose on Mon09/20/18 at 0900, Administer over 60 Minutes New Bag 09/12/2018 9:36 AM EDT 1 g 100 mL/hr New Bag 09/11/2018 9:22 AM EDT 1 g 100 mL/hr melatonin tablet 6 mg 6 mg, Oral, NIGHTLY, First dose on Mon09/06/18 at 2215, Until Discontinued, Routine Given 09/11/2018 8:12 PM EDT 6 mg Given 09/10/2018 9:22 PM EDT 6 mg Given 09/09/2018 8:05 PM EDT 6 mg methadone (Dolophine) (10 mg/mL) oral liquid 120 mg 120 mg, Oral, DAILY, First dose on Mon09/07/18 at 0900, Until Discontinued, Liquid methadone should be used to avoid diversion, and a mouth check should be performed after each dose., Routine, Name of patient's Methadone clinic? [facility], Methadone clinic phone: , Date last Methadone dose was given at the Outpatient Clinic? 09/03/2018, Dose of Methadone provided at the clinic? 120mg QD Given 09/12/2018 9:32 AM EDT 120 mg Given 09/11/2018 8:57 AM EDT 120 mg Given 09/10/2018 8:15 AM EDT 120 mg metoprolol (LOPRESSOR) tablet 12.5 mg 12.5 mg, Oral, EVERY 6 HOURS SCHEDULED, First dose on Mon09/07/18 at 1800, Until Discontinued, HOLD FOR SBP < 90 OR HR < 50, Routine Given 09/12/2018 5:46 PM EDT 12.5 mg Given 09/12/2018 11:44 AM EDT 12.5 mg Given 09/12/2018 5:04 AM EDT 12.5 mg nicotine (NICODERM CQ) 14 mg/24 hr patch 14 mg 14 mg (1 patch), Transdermal, Administer over 24 Hours, DAILY, First dose on Mon09/05/18 at 1915, Until Discontinued, Routine Given 09/11/2018 8:15 PM EDT 14 mg 04- Shoulder (Right) Given 09/10/2018 9:27 PM EDT 14 mg 03 - Shoulder (Left) Given 09/09/2018 8:02 PM EDT 14 mg 10 - Arm Upper (Right) nicotine (NICODERM CQ) 14 mg/24 hr patch Patch Removal Transdermal, DAILY, First dose on Mon09/06/18 at 1845, Until Discontinued, Remove nicotine 14 mg/24 hr patch nicotine (NICODERM CQ) 14 mg/24 hr patch Patch Verification Transdermal, 2 TIMES DAILY, First dose on Mon09/06/18 at 0645, Until Discontinued, Verify nicotine 14 mg/24 hr patch. ondansetron (ZOFRAN) injection 4 mg 4 mg, Intravenous, EVERY 8 HOURS SCHEDULED, First dose (after last modification) on Mon09/10/18 at 2200, Until Discontinued, STAT Given 09/11/2018 3:44 PM EDT 4 mg ondansetron (ZOFRAN) tablet 4 mg 4 mg, Oral, EVERY 8 HOURS SCHEDULED, First dose (after last modification) on Mon09/10/18 at 2200, Until Discontinued, Routine Given 09/12/2018 5:04 AM EDT 4 mg Given 09/11/2018 11:23 PM EDT 4 mg Given 09/11/2018 5:06 AM EDT 4 mg pantoprazole (PROTONIX) tablet 80 mg 80 mg, Oral, DAILY, First dose (after last modification) on Mon09/10/18 at 0900, Until Discontinued, DO NOT CRUSH OR OPEN Given 09/12/2018 9:34 AM EDT 80 mg Given 09/11/2018 9:00 AM EDT 80 mg Given 09/10/2018 8:15 AM EDT 80 mg polyethylene glycol (MIRALAX) packet 17 g 17 g, Oral, DAILY, First dose on Mon09/05/18 at 1900, Until Discontinued, Routine Given 09/09/2018 8:07 AM EDT 17 g Given 09/08/2018 8:07 AM EDT 17 g Given 09/07/2018 8:36 AM EDT 17 g prochlorperazine (COMPAZINE) injection 10 mg 10 mg, Intravenous, EVERY 6 HOURS, First dose (after last modification) on Mon09/09/18 at 0800, Until Discontinued, HOLD WHILE ASLEEP, Routine Given 09/12/2018 9:43 AM EDT 10 mg Given 09/11/2018 8:09 PM EDT 10 mg Given 09/11/2018 3:30 PM EDT 10 mg senna-docusate (PERICOLACE) 8.6-50 mg per tablet 2 tablet 2 tablet, Oral, 2 TIMES DAILY, First dose on Mon09/05/18 at 2100, Until Discontinued, Administer to achieve 1 soft bowel movement daily without straining, Routine Given 09/11/2018 8:12 PM EDT 2 tablets Given 09/10/2018 9:33 PM EDT 2 tablets Given 09/10/2018 8:12 AM EDT 2 tablets sodium chloride 0.9 % flush 5 mL 5 mL, Intravenous, 2 TIMES DAILY, First dose on Mon09/05/18 at 2100, Until Discontinued, Routine Given 09/12/2018 9:54 AM EDT 5 mLs Given 09/11/2018 8:16 PM EDT 5 mLs Given 09/11/2018 9:08 AM EDT 5 mLs sodium chloride 0.9% infusion 1,000 mL, at 100 mL/hr, Intravenous, CONTINUOUS, Starting on Mon09/05/18 at 1900, Until Mon09/12/18 at 2139 Rate/Dose Verify 09/12/2018 5:00 AM EDT 1,000 mLs 100 mL/hr New Bag 09/11/2018 11:27 PM EDT 1,000 mLs 100 mL/hr New Bag 09/11/2018 5:01 AM EDT 1,000 mLs 100 mL/hr tiZANidine (ZANAFLEX) tablet 4 mg 4 mg, Oral, 3 TIMES DAILY, First dose on Mon09/08/18 at 1500, Until Discontinued, Routine Given 09/12/2018 9:34 AM EDT 4 mg Given 09/11/2018 8:13 PM EDT 4 mg Given 09/11/2018 3:28 PM EDT 4 mg valproate (DEPACON) 500 mg in sodium chloride 0.9% 55 mL 500 mg, Intravenous, EVERY 8 HOURS, First dose on Mon09/11/18 at 0930, Until Discontinued, Administer over 60 Minutes New Bag 09/12/2018 3:20 PM EDT 500 mg 55 mL/hr New Bag 09/12/2018 1:26 AM EDT 500 mg 55 mL/hr New Bag 09/11/2018 5:33 PM EDT 500 mg 55 mL/hr documented in this encounter Active and Recently Administered Medications Times are shown in EDT. Scheduled Medication Order 09/10/2018 09/11/2018 09/12/2018 acetaminophen (TYLENOL) tablet 650 mg (CANCELED) 650 mg, Oral, EVERY 6 HOURS, First dose (after last modification) on Briana 09/06/18 at 1045, Until Discontinued, Maximum dose of acetaminophen is 4000 mg from all sources in 24 hours., Routine 0526 (Given - Provider: Ayden Toscano RN)1045 (Not Given - Provider: Esme Burton RN - Reason: Patient/family refused)1553 (Given - Provider: Esme Burton RN)2246 (Given - Provider: Mandeep Boothe RN) 0505 (Given - Provider: Mandeep Boothe RN)1059 (Given - Provider: Saud Sinclair RN)1655 (Given - Provider: Saud Sinclair RN)2323 (Given - Provider: Mandeep Boothe RN) 0504 (Given - Provider: Mandeep Boothe RN) aspirin EC tablet 81 mg 81 mg, Oral, DAILY, First dose on Briana 09/06/18 at 0900, Until Discontinued, Routine 0813 (Given - Provider: Esme Burton RN) 0902 (Given - Provider: Saud Sinclair RN) 0934 (Given - Provider: Suad Sinclair RN)1207 (JUN Hold - Provider: Admin Adt - Reason: Transfer to a Procedural area)1507 (MAR Unhold - Provider: Admin Adt) candesartan (ATACAND) 16 mg tablet 8 mg (CANCELED) 8 mg, Oral, DAILY, First dose on Mon09/11/18 at 1100, Until Discontinued, Routine, Inpatient initiation is restricted to neurology for the indication of migraine prophylaxis. Is this patient being initiated on this medication for migraine prophylaxis? Yes, Please indicate the neurology attending approving this inpatient medication initiation for migraine prophylaxis. chris 1216 (Given - Provider: Saud Sinclair RN - Comment: med unavailable) clopidogrel (PLAVIX) tablet 75 mg 75 mg, Oral, DAILY, First dose on 09/08/18 at 0900, Until Discontinued, Routine 0813 (Given - Provider: Esme Burton RN) 0904 (Given - Provider: Saud Sinclair RN) 0934 (Given - Provider: Saud Sinclair RN)1207 (JUN Hold - Provider: Admin Adt - Reason: Transfer to a Procedural area)1507 (MAR Unhold - Provider: Admin Adt) cyanocobalamin (vitamin B-12) tablet 1,000 mcg 1,000 mcg, Oral, DAILY, First dose on Briana 09/06/18 at 1030, Until Discontinued, Routine 0813 (Given - Provider: Esme Burton RN) 0903 (Given - Provider: Saud Sinclair RN) 0935 (Given - Provider: Saud Sinclair RN)1207 (JUN Hold - Provider: Admin Adt - Reason: Transfer to a Procedural area)1507 ([facility] Unhold - Provider: Admin Adt) enoxaparin (LOVENOX) injection 40 mg 40 mg, Subcutaneous, NIGHTLY, First dose on Mon09/05/18 at 2100, Until Discontinued, Routine 2121 (Given - Provider: Mandeep Boothe RN) 2014 (Given - Provider: Mandeep Botohe RN) 1207 (JUN Hold - Provider: Admin Adt - Reason: Transfer to a Procedural area)1507 (JUN Unhold - Provider: Admin Adt) fluticasone propionate (FLOVENT) 220 mcg/actuation inhaler 2 puff 2 puff, Inhalation, 2 TIMES DAILY, First dose on Mon09/05/18 at 2100, Until Discontinued, Shake well; Rinse mouth after administration., Routine 823 (Given - Provider: Esme Burton RN)2129 (Given - Provider: Mandeep Boothe RN) 0925 (Given - Provider: Saud Sinclair RN)2011 (Given - Provider: Mandeep Boothe RN) 0959 (Given - Provider: Saud Sinclair RN)1207 ([facility] Hold - Provider: Admin Adt - Reason: Transfer to a Procedural area)1507 ([facility] Unhold - Provider: Admin Adt) gabapentin (NEURONTIN) capsule 100 mg (CANCELED) 100 mg, Oral, 3 TIMES DAILY, First dose on Mon09/05/18 at 2100, Until Discontinued, Routine 08 (Given - Provider: Esme Burton RN)1553 (Given - Provider: Esme Burton RN) gabapentin (NEURONTIN) capsule 400 mg 400 mg, Oral, 3 TIMES DAILY, First dose (after last modification) on Mon09/10/18 at 2100, Until Discontinued, Routine 2122 (Given - Provider: Mandeep Boothe RN) 09 (Given - Provider: Saud Sinclair RN)1528 (Given - Provider: Saud Sinclair RN)2012 (Given - Provider: Mandeep Boothe RN) 0934 (Given - Provider: Saud Sinclair RN)1207 (JUN Hold - Provider: Admin Adt - Reason: Transfer to a Procedural area)1500 (Automatically Held - Provider: Admin Adt)1507 ([facility] Unhold - Provider: Admin Adt) lidocaine (LIDODERM) 5 % patch 1 patch(Linked Group 1) 1 patch, Transdermal, EVERY 24 HOURS, First dose on 09/08/18 at 0900, Until Discontinued, Apply patch(es) for 12 hours, and then remove for 12 hours Apply to left shoulder, Routine 0815 (Patch Applied - Provider: Esme Burton RN) 0856 (Patch Applied - Provider: Saud Sinclair RN - Comment: centered) 0935 (Patch Applied - Provider: Saud Sinclair RN - Comment: center)1207 (JUN Hold - Provider: Admin Adt - Reason: Transfer to a Procedural area)1507 ([facility] Unhold - Provider: Admin Adt) lidocaine (LIDODERM) 5 %(700 mg/patch) Patch Removal(Linked Group 1) Transdermal, EVERY 24 HOURS, First dose on 09/08/18 at 2100, Until Discontinued, Remove lidocaine 5 %(700 mg/patch) patch 2100 (Patch Removed - Provider: Mandeep Boothe RN - Comment: by pt) 2100 (Patch Removed - Provider: Mandeep Boothe RN - Comment: ptr took off) 1207 (JUN Hold - Provider: Admin Adt - Reason: Transfer to a Procedural area)1507 ([facility] Unhold - Provider: Admin Adt) lisinopril (PRINIVIL;ZESTRIL) tablet 5 mg (CANCELED) 5 mg, Oral, DAILY, First dose on Mon09/07/18 at 1615, Until Discontinued, Routine 0813 (Given - Provider: Esme Burton RN - Comment: BP 152/73, hr 63) 0902 (Given - Provider: Saud Sinclair, ROBERT) lisinopril (PRINIVIL;ZESTRIL) tablet 5 mg 5 mg, Oral, DAILY, First dose on Mon09/12/18 at 0900, Until Discontinued, Routine 0934 (Given - Provider: Saud Sinclair RN)1207 (JUN Hold - Provider: Admin Adt - Reason: Transfer to a Procedural area)1507 ([facility] Unhold - Provider: Admin Adt) LORazepam (ATIVAN) injection 1 mg (COMPLETED) 1 mg, Intravenous, ONCE, 1 dose, On Mon09/10/18 at 1215, Routine 1158 (Given - Provider: Esme Burton, ROBERT) magnesium oxide (MAG-OX) tablet 400 mg (CANCELED) 400 mg, Oral, 2 TIMES DAILY, First dose on Briana 09/06/18 at 1030, Until Discontinued, Routine 0816 (Given - Provider: Esme Burton RN)2122 (Given - Provider: Mandeep Boothe, ROBERT) magnesium sulfate 1g in dextrose 5% 100mL 1 g, Intravenous, DAILY, 10 doses, First dose on Mon09/11/18 at 0900, Last dose on Mon09/20/18 at 0900, Administer over 60 Minutes 0922 (New Bag - Provider: Saud Sinclair RN)1022 (Stopped - Provider: Saud Sinclair, ROBERT) 0936 (New Bag - Provider: Saud Sinclair RN)1036 (Stopped - Provider: Saud Sinclair RN)1207 (JUN Hold - Provider: Admin Adt - Reason: Transfer to a Procedural area)1507 ([facility] Unhold - Provider: Admin Adt) melatonin tablet 6 mg 6 mg, Oral, NIGHTLY, First dose on Briana 09/06/18 at 2215, Until Discontinued, Routine 2121 (Given - Provider: Mandeep Boothe RN) 2011 (Given - Provider: Mandeep Boothe RN) 1207 ([facility] Hold - Provider: Admin Adt - Reason: Transfer to a Procedural area)1507 ([facility] Unhold - Provider: Admin Adt) methadone (Dolophine) (10 mg/mL) oral liquid 120 mg 120 mg, Oral, DAILY, First dose on Mon09/07/18 at 0900, Until Discontinued, Liquid methadone should be used to avoid diversion, and a mouth check should be performed after each dose., Routine, Name of patient's Methadone clinic? [facility], Methadone clinic phone: , Date last Methadone dose was given at the Outpatient Clinic? 09/03/2018, Dose of Methadone provided at the clinic? 120mg QD 0815 (Given - Provider: Esme Burton RN) 0857 (Given - Provider: Saud Sinclair RN) 0932 (Given - Provider: Saud Sinclair RN)1207 (JUN Hold - Provider: Admin Adt - Reason: Transfer to a Procedural area)1507 ([facility] Unhold - Provider: Admin Adt) metoprolol (LOPRESSOR) tablet 12.5 mg 12.5 mg, Oral, EVERY 6 HOURS SCHEDULED, First dose on Mon09/07/18 at 1800, Until Discontinued, HOLD FOR SBP < 90 OR HR < 50, Routine 0004 (Given - Provider: Ayden Toscano RN)0526 (Given - Provider: Ayden Toscano RN)1408 (Given - Provider: Esme Burton RN - Comment: pt off floor. bp 155/78, hr 53)1703 (Given - Provider: Esme Burton RN) 0059 (Given - Provider: Mandeep Boothe RN)0505 (Given - Provider: Mandeep Boothe RN)1214 (Given - Provider: Saud Sinclair RN)1839 (Given - Provider: Saud Sinclair RN)2323 (Given - Provider: Mandeep Boothe RN) 0504 (Given - Provider: Mandeep Boothe RN)1144 (Given - Provider: Saud Sinclair RN)1207 (JUN Hold - Provider: Admin Adt - Reason: Transfer to a Procedural area)1507 ([facility] Unhold - Provider: Admin Adt)1746 (Given - Provider: Saud Sinclair RN) nicotine (NICODERM CQ) 14 mg/24 hr patch 14 mg(Linked Group 2) 14 mg (1 patch), Transdermal, Administer over 24 Hours, DAILY, First dose on Mon09/05/18 at 1915, Until Discontinued, Routine 2126 (Given - Provider: Mandeep Boothe RN) 2015 (Given - Provider: Mandeep Boothe RN) 1207 (JUN Hold - Provider: Admin Adt - Reason: Transfer to a Procedural area)1507 ([facility] Unhold - Provider: Admin Adt) nicotine (NICODERM CQ) 14 mg/24 hr patch Patch Removal(Linked Group 2) Transdermal, DAILY, First dose on Mon09/06/18 at 1845, Until Discontinued, Remove nicotine 14 mg/24 hr patch 0900 (Patch Removed - Provider: Esme Burton RN) 0900 (Patch Removed - Provider: Saud Sinclair RN) 0900 (Patch Removed - Provider: Saud Sinclair RN)1207 (JUN Hold - Provider: Admin Adt - Reason: Transfer to a Procedural area)1507 ([facility] Unhold - Provider: Admin Adt) nicotine (NICODERM CQ) 14 mg/24 hr patch Patch Verification(Linked Group 2) Transdermal, 2 TIMES DAILY, First dose on Mon09/06/18 at 0645, Until Discontinued, Verify nicotine 14 mg/24 hr patch. 0900 (Patch (dose and location) verified - Provider: Esme Burton RN - Comment: right shoulder)2100 (Patch (dose and location) verified - Provider: Mandeep Boothe RN) 0900 (Patch (dose and location) verified - Provider: Saud Sinclair RN)2100 (Patch (dose and location) verified - Provider: Mandeep Boothe RN) 0900 (Patch (dose and location) verified - Provider: Saud Sinclair RN)1207 (JUN Hold - Provider: Admin Adt - Reason: Transfer to a Procedural area)1507 ([facility] Unhold - Provider: Admin Adt) ondansetron (ZOFRAN) injection 4 mg(Linked Group 3) 4 mg, Intravenous, EVERY 8 HOURS SCHEDULED, First dose (after last modification) on Mon09/10/18 at 2200, Until Discontinued, STAT 2123 (See Alternative - Provider: Mandeep Boothe RN) 0506 (See Alternative - Provider: Mandeep Boothe RN)1544 (Given - Provider: Saud Sinclair RN)2323 (See Alternative - Provider: Mandeep Boothe RN) 0504 (See Alternative - Provider: Mandeep Boothe RN)1207 (JUN Hold - Provider: Admin Adt - Reason: Transfer to a Procedural area)1400 (Automatically Held - Provider: Admin Adt)1507 (J[facility] Unhold - Provider: Admin Adt) ondansetron (ZOFRAN) tablet 4 mg(Linked Group 3) 4 mg, Oral, EVERY 8 HOURS SCHEDULED, First dose (after last modification) on Mon09/10/18 at 2200, Until Discontinued, Routine 2123 (Given - Provider: Mandeep Boothe RN) 0506 (Given - Provider: Mandeep Boothe RN)1544 (See Alternative - Provider: Saud Sinclair RN)2323 (Given - Provider: Mandeep Boothe RN) 0504 (Given - Provider: Mandeep Boothe RN)1207 (MAR Hold - Provider: Admin Adt - Reason: Transfer to a Procedural area)1400 (Automatically Held - Provider: Admin Adt)1507 (MAR Unhold - Provider: Admin Adt) pantoprazole (PROTONIX) tablet 80 mg 80 mg, Oral, DAILY, First dose (after last modification) on Mon09/10/18 at 0900, Until Discontinued, DO NOT CRUSH OR OPEN 0815 (Given - Provider: Esme Burton RN) 0900 (Given - Provider: Saud Sinclair RN) 0934 (Given - Provider: Saud Sinclair RN)1207 (MAR Hold - Provider: Admin Adt - Reason: Transfer to a Procedural area)1507 (MAR Unhold - Provider: Admin Adt) polyethylene glycol (MIRALAX) packet 17 g 17 g, Oral, DAILY, First dose on Mon09/05/18 at 1900, Until Discontinued, Routine 0900 (Not Given - Provider: Esme Burton RN - Reason: Patient/family refused) 0900 (Not Given - Provider: Saud Sinclair RN - Reason: NPO) 0900 (Not Given - Provider: Saud Sinclair RN - Reason: Patient/family refused)1207 (MAR Hold - Provider: Admin Adt - Reason: Transfer to a Procedural area)1507 (MAR Unhold - Provider: Admin Adt) prochlorperazine (COMPAZINE) injection 10 mg 10 mg, Intravenous, EVERY 6 HOURS, First dose (after last modification) on Mon09/09/18 at 0800, Until Discontinued, HOLD WHILE ASLEEP, Routine 0200 (Not Given - Provider: Ayden Toscano RN - Reason: See comment - Comment: Sleeping ---)0812 (Given - Provider: Esme Burton RN)1400 (Not Given - Provider: Esme Burton RN - Reason: Patient/family refused - Comment: pt states not nauseas.)2100 (Given - Provider: aMndeep Boothe RN) 0200 (Not Given - Provider: Mandeep Boothe RN - Reason: See comment - Comment: pt is sleeping. held per order instructions)0857 (Given - Provider: Saud Sinclair RN)1530 (Given - Provider: Saud Sinclair RN)2008 (Given - Provider: Mandeep Boothe RN) 0200 (Not Given - Provider: Mandeep Boothe RN - Reason: Per MD Order - Comment: pt is sleeping)0943 (Given - Provider: Saud Sinclair RN)1207 (MAR Hold - Provider: Admin Adt - Reason: Transfer to a Procedural area)1400 (Automatically Held - Provider: Admin Adt)1507 (MAR Unhold - Provider: Admin Adt) senna-docusate (PERICOLACE) 8.6-50 mg per tablet 2 tablet 2 tablet, Oral, 2 TIMES DAILY, First dose on Mon09/05/18 at 2100, Until Discontinued, Administer to achieve 1 soft bowel movement daily without straining, Routine 0812 (Given - Provider: Esme Burton RN)2133 (Given - Provider: Mandeep Boothe RN) 0900 (Not Given - Provider: Saud Sinclair RN - Reason: NPO)2011 (Given - Provider: Mandeep Boothe RN) 0900 (Not Given - Provider: Saud Sinclair RN - Reason: Patient/family refused)1207 (MAR Hold - Provider: Admin Adt - Reason: Transfer to a Procedural area)1507 (MAR Unhold - Provider: Admin Adt) sodium chloride 0.9 % flush 5 mL 5 mL, Intravenous, 2 TIMES DAILY, First dose on Mon09/05/18 at 2100, Until Discontinued, Routine 1000 (Given - Provider: Esme Burton RN)2120 (Given - Provider: Mandeep Boothe RN) 0908 (Given - Provider: Saud Sinclair RN)2015 (Given - Provider: Mandeep Boothe RN) 0954 (Given - Provider: Saud Sinclair RN)1207 (MAR Hold - Provider: Admin Adt - Reason: Transfer to a Procedural area)1507 ([facility] Unhold - Provider: Admin Adt) tiZANidine (ZANAFLEX) tablet 4 mg 4 mg, Oral, 3 TIMES DAILY, First dose on Mon09/08/18 at 1500, Until Discontinued, Routine 0813 (Given - Provider: Esme Burton RN)1553 (Given - Provider: Esme Burton, ROBERT)2123 (Given - Provider: Mandeep Boothe RN) 0901 (Given - Provider: Saud Sinclair RN)1528 (Given - Provider: Saud Sinclair RN)2013 (Given - Provider: Mandeep Boothe RN) 0934 (Given - Provider: Saud Sinclair RN)1207 (JUN Hold - Provider: Admin Adt - Reason: Transfer to a Procedural area)1500 (Automatically Held - Provider: Admin Adt)1507 (JUN Unhold - Provider: Admin Adt) valproate (DEPACON) 500 mg in sodium chloride 0.9% 55 mL (CANCELED) 500 mg, Intravenous, EVERY 8 HOURS SCHEDULED, First dose on Mon09/10/18 at 2200, Until Discontinued, Administer over 60 Minutes 2138 (New Bag - Provider: Mandeep Boothe RN)2238 (Stopped - Provider: Mandeep Boothe RN) valproate (DEPACON) 500 mg in sodium chloride 0.9% 55 mL 500 mg, Intravenous, EVERY 8 HOURS, First dose on Mon09/11/18 at 0930, Until Discontinued, Administer over 60 Minutes 1102 (New Bag - Provider: Saud Sinclair RN)1202 (Stopped - Provider: Saud Sinclair RN)1733 (New Bag - Provider: Saud Sinclair RN)1833 (Stopped - Provider: Saud Sinclair RN) 0126 (New Bag - Provider: Mandeep Boothe RN)0226 (Stopped - Provider: Mandeep Boothe RN)1207 (JUN Hold - Provider: Admin Adt - Reason: Transfer to a Procedural area)1507 (JUN Unhold - Provider: Admin Adt)1520 (New Bag - Provider: Saud Sinclair RN - Comment: and procedure related)1620 (Stopped - Provider: Saud Sinclair, ROBERT)1730 (Not Given - Provider: Saud Sinclair RN - Reason: See comment - Comment: Too close to delayed last dose.) Continuous Medication Order 09/10/2018 09/11/2018 09/12/2018 sodium chloride 0.9% infusion 1,000 mL, at 100 mL/hr, Intravenous, CONTINUOUS, Starting on Mon09/05/18 at 1900, Until Mon09/12/18 at 2139 0527 (New Bag - Provider: Ayden Toscano, RN)1807 (New Bag - Provider: Esme Burton, RN) 0501 (New Bag - Provider: Mandeep Boothe, RN)2327 (New Bag - Provider: Mandeep Boothe, ROBERT) 0500 (Rate/Dose Verify - Provider: Mandeep Boothe RN)1207 (JUN Hold - Provider: Admin Adt - Reason: Transfer to a Procedural area)1507 ([facility] Unhold - Provider: Admin Adt) PRN Medication Order 09/10/2018 09/11/2018 09/12/2018 albuterol (PROVENTIL) nebulizer solution 2.5 mg 2.5 mg, Nebulization, EVERY 6 HOURS PRN, Starting on Mon09/05/18 at 1837, Until Mon09/12/18 at 2139, Wheezing, Routine 1207 (JUN Hold - Provider: Admin Adt - Reason: Transfer to a Procedural area)1507 ([facility] Unhold - Provider: Admin Adt) bisacodyl (DULCOLAX) suppository 10 mg 10 mg, Rectal, DAILY PRN, Starting on Mon09/05/18 at 1837, Until Mon09/12/18 at 2139, Constipation, Administer if needed per patient's routine or if no bowel movement within 48 hours to achieve: (1) One bowel movement at least every 48 hours, AND (2) Without straining. If multiple PRN bowel medications ordered, start with magnesium hydroxide, then bisacodyl. Multiple medications may be given concomitantly for constipation., Routine 1207 ([facility] Hold - Provider: Admin Adt - Reason: Transfer to a Procedural area)1507 ([facility] Unhold - Provider: Admin Adt) calcium carbonate (Tums) chewable tablet 500-1,000 mg 500-1,000 mg, Oral, EVERY 4 HOURS PRN, Starting on 5/18/19 at 0550, Until 09/12/18 at 2139, Heartburn, Give 500 mg (1 tablet) for mild to moderate heartburn. Give 1,000 mg (2 tablets) for severe heartburn., Routine 1556 (Given - Provider: Esme Burton, RN) 0059 (Given - Provider: Mandeep Boothe, ROBERT)1128 (Given - Provider: Saud Sinclair, ROBERT) 1207 ([facility] Hold - Provider: Admin Adt - Reason: Transfer to a Procedural area)1507 ([facility] Unhold - Provider: Admin Adt) docusate sodium (COLACE) capsule 100 mg 100 mg, Oral, DAILY PRN, Starting on Mon09/05/18 at 1853, Until Mon09/12/18 at 2139, Constipation, Routine 1207 ([facility] Hold - Provider: Admin Adt - Reason: Transfer to a Procedural area)1507 ([facility] Unhold - Provider: Admin Adt) enalaprilat (VASOTEC) injection 1.25 mg, Intravenous, Administer over 5 Minutes, EVERY 6 HOURS PRN, Starting on Mon09/05/18 at 1837, Until Mon09/12/18 at 2139, hypertension , Systolic blood pressure (SBP) goal Less Than 220 mmHg. Administer if inadequate blood pressure control in 30 minutes despite Labetolol or when SBP is greater than 220 mmHg or diastolic blood pressure (DBP) greater than 110 mmHg. Note: enalaprilat can be given with labetalol or nicardipine., Routine 1207 ([facility] Hold - Provider: Admin Adt - Reason: Transfer to a Procedural area)1507 ([facility] Unhold - Provider: Admin Adt) gadoterate meglumine (DOTAREM) 0.5 mmol/mL (376.9 mg/mL) injection 21.98 mL (COMPLETED) 21.98 mL (0.2 mL/kg/dose ? 109.9 kg), Intravenous, ONCE PRN, 1 dose, Starting on Mon09/10/18 at 1311, Until Mon09/10/18 at 1236, Per Protocol, Routine 1236 (Given - Provider: Judit Regalado) iohexol (OMNIPAQUE) 350 mg/mL solution 110 mL (COMPLETED) 110 mL, Intravenous, ONCE PRN, 1 dose, Starting on Tu/21/19 at 1257, Until Mon09/11/18 at 1258, Per Protocol, Warning Vesicant/Irritant Medication , Routine 1258 (Given - Provider: Lourdes Dimas) ketorolac (TORADOL) injection 15 mg () 15 mg, Intravenous, EVERY 6 HOURS PRN, Starting on Mon09/05/18 at 1853, Until Mon09/10/18 at 1852, Pain, Routine 0529 (Given - Provider: Ayden Toscano, RN)1418 (Given - Provider: Esme Burton RN) labetalol (NORMODYNE,TRANDATE) injection 10-20 mg 10-20 mg, Intravenous, Administer over 2 Minutes, EVERY 15 MIN PRN, Starting on Mon09/05/18 at 1837, Until Mon09/12/18 at 2139, High Blood Pressure, - Systolic blood pressure (SBP) goal Less Than 220 mmHg. Start with 10 mg/dose every 15 minutes, If inadequate effect with 10 mg/dose then increase to 20 mg/dose for subsequent dosing. - Do not exceed 300 mg per day. - Repeat every 15 minutes for SBP greater than 220 mmHg. - Hold if pulse is less than 50 beats per minute. If Labetalol does not satisfactorily control BP within 30 minutes, consider enalaprilat or niCARdipine., Routine 1207 ([facility] Hold - Provider: Admin Adt - Reason: Transfer to a Procedural area)1507 ([facility] Unhold - Provider: Admin Adt) lactulose (Chronulac) (0.67 gram/mL) oral liquid 20 g 20 g, Oral, 2 TIMES DAILY PRN, Starting on Mon09/11/18 at 1323, Until Mon09/12/18 at 2139, Constipation, Routine 1207 ([facility] Hold - Provider: Admin Adt - Reason: Transfer to a Procedural area)1507 ([facility] Unhold - Provider: Admin Adt) lidocaine (XYLOCAINE) 10 mg/mL (1 %) injection 3 mg 3 mg (0.3 mL), Subcutaneous, ONCE PRN, 1 dose, Starting on Mon09/05/18 at 1837, Until Mon09/12/18 at 2139, for discomfort with PIV insertion, Routine 1207 ([facility] Hold - Provider: Admin Adt - Reason: Transfer to a Procedural area)1507 ([facility] Unhold - Provider: Admin Adt) lidocaine (XYLOCAINE) 5 % ointment (CANCELED) ONCE PRN, Starting on Mon09/12/18 at 1220, Until Mon09/12/18 at 2138, Intra-Operative (Intra-Procedure) 1220 (Given - Provider: Bonnie Mccann - Comment: back of throat) magnesium hydroxide (Milk of Magnesia) (240 mg/mL) oral liquid 10 mL 10 mL, Oral, NIGHTLY PRN, Starting on Mon09/05/18 at 1837, Until Mon09/12/18 at 2138, Constipation, Administer if needed per patient's routine or if no bowel movement within 48 hours to achieve: (1) One bowel movement at least every 48 hours, AND (2) Without straining. If multiple PRN bowel medications ordered, start with magnesium hydroxide, then bisacodyl. Multiple medications may be given concomitantly for constipation., Routine 1207 ([facility] Hold - Provider: Admin Adt - Reason: Transfer to a Procedural area)1507 ([facility] Unhold - Provider: Admin Adt) sodium chloride 0.9 % flush 5-20 mL 5-20 mL, Intravenous, EVERY 1 MIN PRN, Starting on Mon09/05/18 at 1837, Until Mon09/12/18 at 2138, flush, Flush pertains to all indwelling lines. Flush per protocol found in the job aid using the link provided on this medication record., Routine 1207 ([facility] Hold - Provider: Admin Adt - Reason: Transfer to a Procedural area)1507 ([facility] Unhold - Provider: Admin Adt) Linked Groups Order Group 1: lidocaine (LIDODERM) 5 % patch 1 patchJump to med 1 patch, Transdermal, EVERY 24 HOURS, First dose on 09/08/18 at 0900, Until Discontinued, Apply patch(es) for 12 hours, and then remove for 12 hours Apply to left shoulder, Routine And lidocaine (LIDODERM) 5 %(700 mg/patch) Patch RemovalJump to med Transdermal, EVERY 24 HOURS, First dose on 09/08/18 at 2100, Until Discontinued, Remove lidocaine 5 %(700 mg/patch) patch Group 2: nicotine (NICODERM CQ) 14 mg/24 hr patch 14 mgJump to med 14 mg (1 patch), Transdermal, Administer over 24 Hours, DAILY, First dose on Mon09/05/18 at 1915, Until Discontinued, Routine And nicotine (NICODERM CQ) 14 mg/24 hr patch Patch VerificationJump to med Transdermal, 2 TIMES DAILY, First dose on Mon09/06/18 at 0645, Until Discontinued, Verify nicotine 14 mg/24 hr patch. 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
--- OUTSIDE RECORDS SUMMARY | 2023-12-27 19:46 | XMS_ITS | Encounter Summary ---
[place] [address] Care Team Providers Care Water Treatment Plant Supervisor Name Role Phone MicahVicky Luis A ALVAREZ Primary Care Provider [phone] Reason for Visit * Auth/Cert Specialty Diagnoses / Procedures Referred By Lang sanches Referred To Contact Diagnoses Stroke CVA Procedures EMERGENCY IPI Referral ID Status Reason Start Date Expiration Date Visits Re quested Visits Authorized [id number] 1 1 Encounter Details Date Type Department Care Team (Late st Contact Info) Description 09/12/2018 12:00 PM EDT Anesthesia Event [place] [address] Zoë Lara MD [facility] [place] [address] Anesthesia Record Procedure Summary Procedure Name Responsible Anesthesiologist Anesthesia Start Time Anesthesia Stop Time TRANSESOPHAGEAL ECHOCARDIOGRAM (WRVU 2.3) Zoë Lara MD 09/12/18 1200 09/12/18 1301 Events Date Time Event Comment 09/12/2018 1200 AN Verify 1200 Start 1200 An Start Data 1216 Anesthesia Ready 1221 1238 An Induction 1301 an stop data 1301 Recovery or ICU Handoff Oanh ent care was transferred to the destination unit staff after review of the patient's medical history, current anesthetic/surgical status and plan, according to the Provider Handoff Checklist. 1301 Stop Meds Name Total Propofol 140 mg Dexmedetomidine 12 mcg Lactated Ringers 300 mL * Agents Name O2 * Blood No blood administrations on file. Lines, Drains, and Airways Type Details Placement Removal Incision 05/11/15; groin; 01/21/19; 12105/11/15 0000 by Anabel Singh RN 01/21/19 1211 by Ninfa Maxwell RN Incision 06/01/15; groin; (sheath site); 01/21/19; 12106/01/15 0000 by Esthela Ramirez RN 01/21/19 1211 by Ninfa Maxwell, RN (RETIRED) Peripheral IV Line - Single Lumen 09/05/18; 2139; cephalic vein (lateral side of arm), left; [id number] catheter system; 22 gauge, 1 in length, 3/4 in length; Avtar Rivera VAS; intradermal injection, appears comfortable; 0; removed per policy/procedure, catheter/device intact; 09/12/18; 16309/05/18 214 by Vinay Rivera, ROBERT 09/12/18 163 by Trisha Zambrano LNA documented in this encounter Social History Tobacco [...] OR Notes * Anesthesia Postprocedure Evaluation - Zoë Lara MD - 09/12/2018 1:09 PM EDT Department of Anesthesiology Post-procedure Note Patient: Ghada Ervin Procedure Summary Date: 09/12/18 Room / Location: [facility] Anesthesia Start: 1200 Anesthesia Stop: 1301 Procedure: TRANSESOPHAGEAL ECHOCARDIOGRAM (WRVU 2.55) (N/A ) Diagnosis: (SIOBHAN/CVA) Surgeon: Ze Freeman MD Responsible Provider: Zoë Lara MD Anesthesia Type: MAC ASA Status: 3 All Anesthesia Providers: Anesthesiologist: Zoë Lara MD HANDMADE TILE ARTIST: Adam Almazan CRNA Vitals Value Taken Time BP 119/69 09/12/2018 1:04 PM Temp Pulse 68 09/12/2018 1:09 PM Resp 15 09/12/2018 1:09 PM SpO2 92 % 09/12/2018 1:09 PM Pain Level Vitals shown include unvalidated device data. Patient Location: PACU/[facility] Level of Consciousness: Awake and Alert Pain Management: Satisfactory Analgesia PONV: None Cardiovascular Status: At Baseline and Hemodynamically Stable Respiratory Status: At Baseline and Room Air Postoperative Fluid Status: Intravascular EUvolemia Possible Anesthetic Complications: NONE apparent at time of evaluation Final Primary Anesthesia Type: MAC (The anesthetic type performed was the same as planned.) Comments: Zoë Lara MD * Anesthesia Preprocedure Evaluation - Zoë Lara MD - 09/12/2018 11:36 AM EDT Pre-Anesthesia Evaluation for: Ghada Ervin a 27 y.o. female. Procedure(s): [facility] Patient Active Problem List Diagnosis ??? Stroke ??? Seizures ??? Patient non [...] Procedure Date: 06/19/2007 ??? LITHOTRIPSY kidney stones ??? TUBAL LIGATION Social History Tobacco Use ??? Smoking status: Former Smoker Packs/day: 0.00 Years: 8.00 Pack years: 0.00 Types: Cigarettes ??? Smokeless tobacco: Never Used ??? Tobacco comment: quit apr 2015 Substance Use Topics ??? Alcohol use: Not on file Comment: seldom Social History Substance and Sexual Activity Drug Use Yes ??? Types: Marijuana Allergies Allergen Reactions ??? Bee Pollen Anaphylaxis ??? Meperidine Hcl Anaphylaxis and Other (See Comments) flushing, respiratory trouble ??? [place] Other (See Comments) Flu like sx ??? Zoloft [Sertraline] Other (See Comments) Flu like sx Medications: MAR and/or home medications have been reviewed. Physical Exam: Most Recent Vitals: 09/12/18 0800 BP: 120/89 Pulse: 74 Resp: 18 Temp: 36.5 ??C (97.7 ??F) SpO2: 99% Body mass index is 44.3 kg/m??. 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 PMH chronic pain, depression, fibromyalgia, HepC, remote IVDA, kidney stones. Limited functional tolerance 2/2 pain 1 flight of stairs slowly at baseline. Plan MAC, GA backup, with standard ASA monitors and adequate IV access. Region - Intrathoracic Cardiac Informed Consent: Anesthetic plan and risks discussed with patient. Plan discussed with HANDMADE TILE ARTIST and attending. PAT Clinic Note documented in this encounter Plan of Treatment Upcoming Encounters Date Type Department Care Team (Late st Contact Info) Description 01/24/2024 3:40 PM EDT Office Visit Cardiology at [address] [address] Rangel Willams MD [facility] [place] [address] documented as of this encounter Visit Diagnoses Not on filedocumented in this encounter Administered Medications Inactive Administered Medications - up to 3 most recent administrations Medication Order MAR Action Action Date Dose Rate Site dexmedetomidine (PRECEDEX) injection PRN, Starting on Mon09/12/18 at 1234, Until Mon09/12/18 at 1301, Anesthesia Intra-op, Routine Given 09/12/2018 12:34 PM EDT 4 mcg Given 09/12/2018 12:32 PM EDT 4 mcg Given 09/12/2018 12:30 PM EDT 4 mcg lactated ringers infusion CONTINUOUS PRN, Starting on Mon09/12/18 at 1200, Until Mon09/12/18 at 1301, Anesthesia Intra-op New Bag 09/12/2018 12:00 PM EDT propofol (DIPRIVAN) 10 mg/mL bolus injection (Anesthesia) PRN, Starting on Mon09/12/18 at 1238, Until Mon09/12/18 at 1301, Anesthesia Intra-op Given 09/12/2018 12:51 PM EDT 30 mg Given 09/12/2018 12:45 PM EDT 30 mg Given 09/12/2018 12:43 PM EDT 30 mg documented in this encounter Care Teams Water Treatment Plant Supervisor Relationship Specialty Start Date End Date Vicky Obrien APRN PCP - General Family Medicine 08/25/17 11/21/18 documented as of this encounter
--- OUTSIDE RECORDS SUMMARY | 2023-12-27 19:47 | XMS_ITS | Encounter Summary ---
[place] [address] Care Team Providers Care Test Tech Name Role Phone MicahVicky Luis A ALVAREZ Primary Care Provider [phone] Encounter Details Date Type Department Care Team (Late st Contact Info) Description 09/04/2018 Telephone [place] [address] Tabby Grover MD [facility] [place] [address] Social History Tobacco Use Types Packs/Day Years Used Date Smoking Tobacco: Former Cigarettes Smokeless Tobacco: Never Comments:quit apr 2015 Alcohol Use Standard Drinks/Week Comments Yes 0 (1 standard drink = 0.6 oz pur e alcohol) seldom Sex and Gender Information Value Date Recorded Sex Assigned at Not on file Gender Identity Not on file Sexual Orientation Not on file documented as of this encounter Miscellaneous Notes * Telephone Encounter - Tabby Grover MD - 09/04/2018 9:37 AM EDT I spoke to a provider at [facility] regarding the patient. They had also spoken to neurology instrumentation fitter lastnight so please also see that note. They have not yet obtained the recommended MRI and MRV due to concern of aneurysm clip compatibility. They will have radiology at [facility] investigate if her clip is co mpatible. The purpose of the MRI would be to assess for additional supportive signs of IIH. Her elevated closing pressure (no opening pressure) may have been due to the patient's body habitus and positioning. She cannot prophylactically go on diamox or topamax due to history of complicated nephrolithiasis. She still has a low grade fever of unclear origin. Urine is pending. We have also recommended an eye exam. Tabby Grover MD documented in this encounter Plan of Treatment Upcoming Encounters Date Type Department Care Team (Late st Contact Info) Description 01/24/2024 3:40 PM EDT Office Visit Cardiology at [address] [phone] Rangel Willams MD [facility] [address] documented as of this encounter Visit Diagnoses Not on filedocumented in this encounter Care Teams Test Tech Relationship Specialty Start Date End Date Vicky Obrien APRN PCP - General Family Medicine 08/25/17 11/21/18 documented as of this encounter
--- OUTSIDE RECORDS SUMMARY | 2023-12-27 19:47 | XMS_ITS | Encounter Summary ---
Author Organization [facility] [place] [address] Care Team Providers Care Campus Recruiting Internship Name Role Phone Vicky Obrien KIM Primary Care Provider [phone] Encounter Details Date Type Department Care Team (Late st Contact Info) Description 09/03/2018 Ancillary Procedure [place] [phone] Andrea Heredia MD [facility] [place] [address] Social History Tobacco Use Types Packs/Day Years [...] PM EDT Office Visit Cardiology at [address] [phone] Rangel Willams MD [facility] [place] [address] documented as of this encounter Procedures Procedure Name Priority Date/Time Associated Diagnosis Comments FILM LIBRARY STORAGE ONLY CT HEAD AND SPINE Routine 09/03/2018 12:00 AM EDT documented in this encounter Results * Film Library- Storage Only CT Head And Spine (09/03/2018 12:00 AM EDT) Narrative TARI - 09/04/2018 2:11 AM EDT This exam is auto-finalizing. It's purpose is for storage only. Andrea Heredia MD IMG FILM LIBRARY ORD ERABLES [place], [place] documented in this encounter Visit Diagnoses Not on filedocumented in this encounter Care Teams Campus Recruiting Internship Relationship Specialty Start Date End Date Vicky Obrien APRN PCP - General Family Medicine 08/25/17 11/21/18 documented as of this encounter
--- OUTSIDE RECORDS SUMMARY | 2023-12-27 19:47 | XMS_ITS | Encounter Summary ---
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 Social History Tobacco Use Types Packs/Day Years Used Date Smoking Tobacco: Former Cigarettes 0.5 8 Smokeless Tobacco: Never Alcohol Use Standard Drinks/Week Comments No 0 (1 standard drink = 0.6 oz pur e alcohol) Sex and Gender Information Value Date Recorded Sex Assigned at Not on file Gender Identity Not on file Sexual Orientation Not on file documented as of this encounter Last Filed Vital Signs Vital Sign Reading Time Taken Comments Blood Pressure 132/80 06/15/2015 11:24 AM EST Pulse 92 06/15/2015 11:24 AM EST Temperature - - Respiratory Rate - - Oxygen Saturation 97% 06/15/2015 11:24 AM EST Inhaled Oxygen Concentration - - Weight 83.5 kg (184 lb) 06/15/2015 11:24 AM EST Height 157.5 cm (5' 2) 06/15/2015 11:24 AM EST Body Mass Index 33.65 06/15/2015 11:24 AM EST documented in this encounter Progress Notes * Ignacia Watts APRN - 06/19/2015 2:40 PM ESTQuick Note: Urine results consistent with patient reported history on date of this test Ignacia Watts, DNP, ANP-CS, [employer] Nurse Practitioner [facility] * Ignacia Watts APRN - 06/15/2015 11:38 AM EST PAIN CLINIC FOLLOW-UP Ghada Ervin [phone] Reason for follow-up: Medication management Chronic Opioid Therapy Pain Management Plan signed on 09/17/14 UDT: 03/27/15 findings reflect reported history taken on [facility] Prescription Monitoring Program were checked and no issues were found. ORT Score: 5 moderate risk (due to family hx/age) Naloxone discussed: 03/27/15 prescribed Storage of opioids: Keeps them locked in mother's safe. Mother gives her 10 pills (2 days worth at a time) Chief Complaint: Follow up chronic back pain due to thoracic fusion for scoliosis. Also has fibromyalgia History of Present Illness: Ms. Ervin is a 24 y.o.-year-old female, who has a history of scoliosis, s/p Tejeda rods and thoracic fusion 2007, she continues to have low back pain. She also has fibromyalgia. First seen by this pain clinic and Dr. Contreras on 09/19/14. We agreed to prescribe opioids as long as she is meeting goals and not experiencing side effects. Has migraines and was referred to neurology clinic . Saw headache specialist Dr. Ritchie, here in neurology 03/08 - found out one of her migraine medications cause renal stones; had occipital injections and new nasal spray; follow up in 5 weeks, having brain MRI done 04/09. Waiting for insurance approval for Botox injections. Has diagnosis of fibromyalgia, but has swollen painful finger joints- referred to rheumatology. Saw Dr. Patton 04/30/14 for evaluation of joint tenderness/fibromyalgia-dx arthritis/fibromyalgia Hx of SVT, underwent ablation and found to have 2 AV nodes, one of which was frozen in 2014. Interim history ED visits, hospitalizations, new medical problems or surgeries since previous visit? 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 Couldn't accept [facility] job because she can't drive; spent most of month lying in bed due to headaches/photophobia. Family members help with her children. 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 or walking Pain Quality is described as constant, achy, constant shooting in the hips Pain Exacerbating/relieving activities: worse with driving, bending, lifting, better with heat and meds Rated as 6/10 on average with meds- can go up to a 10 Current treatment: Percocet 10/325 no more than 4 per day (increased to 5 per day in 04/07 due to headache) Physical therapy: no using currently ([phone] Mario Desouza or Saira) Counseling/therapy: hasn't seen Stephanie Banegas APRN recently ; needs new psychiatrist (working on finding new one) Lizz Reyes counselor coming to home to see her Marijuana: smokes maybe once per day (helps with headaches/anxiety) lyrica 150 mg bid (increased to 200 mg bid 06/15) Past therapies: Had lumbar MBB bilateral 04/20/15 without improvement in pain Gabapentin 300-300-900 stopped in 03/08 Savella (stopped on own, didn't like the way she felt on it) Depression: More upset regarding her medical set backs and new diagnoses Sleep: using trazodone for sleep but doesn't like the hang over effect in morning Smoking: quit 1 weeks ago! 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 HYDROmorphone (DILAUDID) 2 mg Tablet Take 1-2 tablets by mouth every 4 hours as needed for Pain. Yes oxyCODONE-acetaminophen (PERCOCET) 10-325 mg Tablet Take 1 tablet by mouth every 4 hours as needed for Pain for up to 28 days. NTE 5 per day Yes acetaminophen (TYLENOL) 325 mg Tablet Take 2 tablets by mouth every 4 hours as needed for Pain (mild pain). Yes aspirin 325 mg Tablet Take 1 tablet by mouth daily. Yes clopidogrel (PLAVIX) 75 mg Tablet Take 1 tablet by mouth daily. Yes dextroamphetamine-amphetamine (ADDERALL XR) 20 mg Capsule, Sust. Release 24 hr Take 20 mg by mouth every morning. Yes hydrOXYzine (VISTARIL) 25 mg Capsule Take 1 capsule by mouth 2 times daily as needed. Yes cyproheptadine (PERIACTIN) 4 mg Tablet Take 1 tablet by mouth nightly. Yes promethazine (PHENERGAN) [address] 1 suppository rectally every 6 hours as needed forNausea. Yes ondansetron (ZOFRAN) 8 mg Tablet Take 8 mg by mouth every 8 hours as needed for Nausea. Yes pregabalin (LYRICA) 75 mg Capsule Take 1 capsule by mouth 2 times daily. For 7 days, then increase to 2 tabs twice per day Indications: Fibromyalgia Yes magnesium 250 mg Tablet Take 250 mg by mouth 2 times daily. Yes potassium chloride (KLOR-CON M20) 20 mEq Tab Sust.Rel. Particle/Crystal Take 20 mEq by mouth 2 times daily. Yes ALPRAZolam (XANAX) 0.5 mg Tablet Take 0.5 mg by mouth daily as needed for Sleep or Anxiety (no morethan 10 per month). Indications: Panic Disorder Yes milnacipran (SAVELLA) 50 mg Tablet Take 50 mg by mouth 2 times daily. Yes calcium carbonate (TUMS) 200 mg calcium (500 mg) Tablet, Chewable Take 2 tablets by mouth daily as needed. Yes Review of Systems Constitutional Denies weight loss or gain, fevers, chills, nightsweats + headaches- Cardiovascular Denies chest pain, palpitations Respiratory Denies cough, SOB, PADRON;; no other URI symptoms GI/ Denies constipation, diarrhea, nausea, vomiting, GERD, incontinence; Musculoskeletal Right leg weakness since brain surgery- using a cane she purchased herself Neurologic ,No seizures, memory loss. paresthesia Hormonal had tubal ligation in 06/08 Physical Exam Constitutional Seen with her mother , alert and oriented, cooperative Psychiatric has good eye contact and a full range of affect. More talkative. No crying Lungs lungs CTA Cardiac RRR without murmur Musculoskeletal Ambulates without cane COMPARISON: MRI lumbar spine of 04/12/2007. 02/27/15 FINDINGS: There is levoconvex scoliotic curvature of the lumbar spine is a component of the marked thoracic scoliosis. Vertebral height and marrow signal are normal. Intervertebral discs are of normal appearance. The conus medullaris is of normal contour and signal characteristics terminating at the level of L2. The nerve roots of the cauda equina show no abnormality. There is mild hypertrophic facet arthropathy at each level in the lumbar spine most marked at L5-S1. The facet arthropathy combines with the scoliotic curvature to produce moderate neural foramen narrowing on the left at L4-5 and L5-S1 IMPRESSION: Facet arthropathy of the lumbar spine. This combines with scoliotic curvature to produce moderate neural foramen narrowing on the left at L4-5 and L5-S1. No other evidence of nerve root impingement. EXAMINATION: MRI CERVICAL SPINE WO CONTRAST CLINICAL HISTORY: increasing neck pain with bilateral radiculopathy history scoliosis fusion T3-T12 TECHNIQUE: MRI of the cervical spine was obtained per radiculopathy protocol. No intravenous contrast. COMPARISON: Limited MRI of the cervical spine of 04/12/2007 FINDINGS: The study is mildly marred by patient motion. Vertebral height, alignment, and marrow signal are normal. Disc space heights are normally preserved. There is no disc herniation, encroachment upon the spinal canal, or neural foramen narrowing. IMPRESSION: Normal MRI of cervical spine Assessment: 24 year old with chronic back pain related to scoliosis and Tejeda sonya placement/thoracic spinal fusion and fibromyalgia on percocet 10/325 5 times per day, temporarily increased to 5 per day in 04/07 due to headaches from aneurysm Working with neurology to manage migraines. Needs 2nd surgery for aneurysm. Quit smoking. No concerning behaviors/side effects of opioid use. Rheumatology confirmsfibromyalgia. Plan/Recommendations//Discussion: Renew percocet NTE temporarily increased to 5 per day. #28 days Increased lyrica to 200 mg bid; prescription for #30 days Talked about medical cannabis- discussed she needs to use legally- she will bring paperwork with her next visit. Met her goal to stop smoking. Urine screen today She will follow up with neurology. Follow up in 28 days with me Ghada had an opportunity to ask questions. 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 Result ?? Flag ??Unit ?? RefValue Drug of Abuse, THC Conf, U ??GC/MS Confirmation - ? Positive ?THC ??THC Carboxylic Acid ?178 ?ng/mL ??Cutoff:<3 ---ADDITIONAL INFORMATION----- This report is intended for use in clinical monitoring and management of patients. It is not intended for use in employment-relat ed drug testing. Test Performed by: [facility] [address], [place], [place] [address] Industrial Roofer Helper: Marla Banks, Ph.D. [facility] Urine specimen (specimen) 06/15/2015 12:05 PM EST 06/15/2015 3:23 PM EST Narrative Resulting Agency Comment Spec In Lab Johnnie Morales V, DO LAB SEND OUT ORDERAB LES Performing Organization Address City/State/[facility] Co de Phone Number [facility] [place] [address] * Drug Screen with Confirmation, Urine (06/15/2015 12:05 PM EST) U CAM w/Conf Test ? Result ?? Flag ??Unit ?? RefValue --------- Pain Clinic Drug Screen, U ??Amphetamines ? Negative ? ng/mL ??Cutoff: 500 ??Barbiturates ? Negative ? ng/mL ??Cutoff: 200 ??Benzodiazepines ?Negative ? ng/mL ??Cutoff: 200 ??Cocaine Metabolite ? Negative ? ng/mL ??Cutoff: 150 ??Methadone ?Negative ? ng/mL ??Cutoff: 300 ??Opiates ?Positive ? ng/mL ??Cutoff: 300 ??Phencyclidine ?Negative ? ng/mL ??Cutoff: 25 ??Tetrahydrocanna binols ?Positive ? ng/mL ??Cutoff: 50 ??Ethanol ?Negative ? mg/dL ??Cutoff: 10 --ADDITIONAL INFORMATION------ Results from this test are presumptive; for positive results refer to the corresponding drug confirmation for the definitive result. This report is intended for use in clinical monitoring and management of patients. It is not intended for use in employment-relate d drug testing. ??Confirmation - Opiates ?? Positive ??Codeine ?Negative ? ng/mL ??<100 ??Hydrocodone ?Negative ? ng/mL ??<100 ??Hydromorphone ?Negative ? ng/mL ??<100 ??Morphine ? Negative ? ng/mL ??<100 ??Oxycodone ?8100 ? ng/mL ??<100 ??Oxymorphone ?8900 ? ng/mL ??<100 --ADDITIONAL INFORMATION------ This report is intended for use in clinical monitoring and management of patients. It is not intended for use in employment-relate d drug testing. Test Performed by: [facility] [address] [address] Industrial Roofer Helper: Marla Banks, Ph.D. 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
--- OUTSIDE RECORDS SUMMARY | 2023-12-27 19:47 | XMS_ITS | Encounter Summary ---
Author Organization [facility] [place] [address] Care Team Providers Care Grievance And Appeals Coordinator Name Role Phone MicahVicky Luis A ALVAREZ Primary Care Provider [phone] Encounter Details Date Type Department Care Team (Late st Contact Info) Description 07/01/2018 Ancillary Procedure [place] [phone] Frances Sorensen APRN [address] [place], [place] [address] Social History Tobacco Use Types Packs/Day Years [...] PM EDT Office Visit Cardiology at [address] [phone] Rangel Willams MD [facility] [place] [address] documented as of this encounter Procedures Procedure Name Priority Date/Time Associated Diagnosis Comments FILM LIBRARY STORAGE ONLY DX CHEST Routine 07/01/2018 12:00 AM EST documented in this encounter Results * Film Library- Storage Only DX Chest (07/01/2018 12:00 AM EST) Narrative [facility] - 08/12/2021 3:54 PM EDT This exam is auto-finalizing. It's purpose is for storage only. Frances ANSARI FILM LIBRARY ORD ERABLES [place], [place] documented in this encounter Visit Diagnoses Not on filedocumented in this encounter Care Teams Grievance And Appeals Coordinator Relationship Specialty Start Date End Date Vicky Obrien APRN PCP - General Family Medicine 08/25/17 11/21/18 documented as of this encounter
--- OUTSIDE RECORDS SUMMARY | 2023-12-27 19:47 | XMS_ITS | Encounter Summary ---
Author Organization [facility] [place] [address] Care Team Providers Care Medical Records Specialist Name Role Phone Apple Walters APRN Primary Care Provider +1- [phone] Reason for Visit * Reason Comments Pain Management Encounter Details Date Type Department Care Team (Latest Contact Info) Description 10/02/2015 1:30 PM EDT Office Visit [place] [address] Ignacia Florentino TIPPING MACHINE OPERATOR AUTOMATIC [facility] [place] [address] Scoliosis of cervicothoracic spine, unspecified scoliosis type; Fibromyalgia; Chronic pain syndrome Social History Tobacco Use Types Packs/Day [...] Sign Reading Time Taken Comments Blood Pressure 120/81 10/02/2015 1:23 PM EDT Pulse 84 10/02/2015 1:23 PM EDT Temperature - - Respiratory Rate - - Oxygen Saturation 100% 10/02/2015 1:23 PM EDT Inhaled Oxygen Concentration - - Weight 82.1 kg (181 lb) 10/02/2015 1:23 PM EDT Height 157.5 cm (5' 2) 10/02/2015 1:23 PM EDT Body Mass Index 33.11 10/02/2015 1:23 PM EDT documented in this encounter Progress Notes * Ignacia Florentino, TIPPING MACHINE OPERATOR AUTOMATIC - 10/02/2015 1:32 PM EDT PAIN CLINIC FOLLOW-UP Ghada Ervin [id number] Reason for follow-up: Medication management Chronic Opioid Therapy Pain Management Plan signed on 09/17/14 UDT: 06/15/15 findings reflect reported history taken on that day The [place] and [place] Prescription Monitoring Program were checked and no issues were found. ORT Score: 5 moderate risk (due to family hx/age) Naloxone discussed: 03/27/15 prescribed Storage of opioids: Keeps them locked in mother's safe. Mother gives her 10 pills (2 days worth at a time) [place] cannabis signed by Dr. Contreras 09/06 (hasn't filed application, waiting for money to go with application) Chief Complaint: Follow up chronic back pain [...] one of which was frozen in 2014. 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 No PCP gave her referral to psychiatrist for medication adjustment (has been off her antidepressants and anti-anxiety medications); no appointment yet Changes in family, social, or functional history since previous visit? 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, 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 or walking Pain Quality is described as constant, achy, constant shooting in the hips Pain Exacerbating/relieving activities: worse with driving, bending, lifting, better with heat and meds Rated as 7/10 on average with meds- can go up to a 10 Current treatment: Percocet 10/325 no more than 4 per day (total jazmin 40 mg or 60 mg MDE) Counseling/therapy: hasn't seen Stephanie Banegas APRN recently ; needs new psychiatrist (working on finding new one) Lizz Reyes counselor ; Marijuana: smokes maybe once per day (helps with headaches/anxiety) Gabapentin restarted 09/06 400 mg tid Past therapies: lyrica 150 mg bid (increased to 200 mg bid 06/15) stopped 09/06 due to weight gain Physical therapy: no using currently ([phone] Mario Desouza or Saira) Had lumbar MBB bilateral 04/20/15 without improvement in pain Gabapentin 300-300-900 stopped in 03/08 Savella (stopped on own, didn't like the way she felt on it) Depression: I'm pretty good now, less discouraged Sleep: up and down- restless legs/body at night Smoking: quit July 2015! 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 oxyCODONE-acetaminophen (PERCOCET) 10-325 mg Tablet Take 1 tablet by mouth every 4 hours as needed for Pain for up to 28 days. NTE 4 per day; gabapentin (NEURONTIN) 400 mg Capsule Take 1 capsule by mouth 3 times daily. amoxicillin-clavulanate (AUGMENTIN-ES) 600-42.9 mg/5 mL Suspension for Reconstitution Take 600 mg by mouth 2 times daily. cyclobenzaprine (FLEXERIL) 10 mg Tablet Take 1 tablet by mouth nightly as needed for up to 30 days. acetaminophen (TYLENOL) 325 mg Tablet Take 2 tablets by mouth every 4 hours as needed for Pain (mild pain). aspirin 325 mg Tablet Take 1 tablet by mouth daily. clopidogrel (PLAVIX) 75 mg Tablet Take 1 tablet by mouth daily. hydrOXYzine (VISTARIL) 25 mg Capsule Take 1 capsule by mouth 2 times daily as needed. cyproheptadine (PERIACTIN) 4 mg Tablet Take 1 tablet by mouth nightly. promethazine (PHENERGAN) [address] 1 suppository rectally every 6 hours as needed forNausea. ondansetron (ZOFRAN) 8 mg Tablet Take 8 mg by mouth every 8 hours as needed for Nausea. magnesium 250 mg Tablet Take 250 mg by mouth 2 times daily. potassium chloride (KLOR-CON M20) 20 mEq Tab Sust.Rel. Particle/Crystal Take 20 mEq by mouth 2 times daily. calcium carbonate (TUMS) 200 mg calcium (500 mg) Tablet, Chewable Take 2 tablets by mouth daily as needed. Addiction Behaviors Checklist (NA = not assessed) Addiction behaviors--since last visit 1. Patient used illicit drugs or evidences problem drinking* no 2. Patient has hoarded meds no 3. Patient used more narcotic than prescribed no 4. Patient ran out of meds early no 5. Patient has increased use of narcotics no 6. Patient used analgesics PRN when prescription is for time contingent use no 7. Patient received narcotics from more than one provider no 8. Patient bought meds on the streets no Addiction behaviors--within current visit 1. Patient appears sedated or confused (e.g., slurred speech, unresponsive) no 2. Patient expresses worries about addiction no 3. Patient expressed a strong preference for a specific type of analgesic or a specific route of administration no 4. Patient expresses concern about future availability of narcotic no 5. Patient reports worsened relationships with family no 6. Patient misrepresented analgesic prescription or use no 7. Patient indicated she or he ?needs? or ?must have? analgesic meds no 8. Discussion of analgesic meds was the predominant issue of visit no 9. Patient exhibited lack of interest in rehab or self-management no 10. Patient reports minimal/inadequate relief from narcotic analgesic no 11. Patient indicated difficulty with using medication agreement no Other 1. Significant others express concern over patient???s use of analgesics no ABC Score: ____0__ Score of >=3 indicates possible inappropriate opioid use and should flag for further examinationof specific signs of misuse and more careful patient monitoring (i.e., urine screening, pill counts, removal of opioid). . Review of Systems Constitutional Denies weight loss or gain, fevers, chills, nightsweats +chronic headaches- Cardiovascular Denies chest pain, palpitations Respiratory Denies cough, SOB, PADRON;; no other URI symptoms GI/ Denies constipation, diarrhea, nausea, vomiting, GERD, incontinence; Musculoskeletal Right leg weakness improved, no longer using cane Neurologic ,No seizures, memory loss. paresthesia Hormonal had tubal ligation in 06/08 Physical Exam Constitutional Seen alone , alert and oriented, cooperative Psychiatric has good eye contact and a full range of affect. More talkative. Lungs lungs CTA Cardiac RRR without murmur [...] spinal fusion and fibromyalgia on percocet 10/325 4 times per day, Working with neurology to manage migraines Quit smoking. No concerning behaviors/side effects of opioid use. Rheumatology confirmed fibromyalgia. Meeting goals. Plan/Recommendations//Discussion: Renew percocet 10/325 NTE 4 per day #112. Renewed flexeril and gabapentin Follow up in 28 days with me Urrutia had an opportunity to ask questions. Ignacia Florentino DNP, ANP, TIPPING MACHINE OPERATOR AUTOMATIC documented in this encounter Plan of Treatment Upcoming Encounters Date Type Department Care Team (Late st Contact Info) Description 01/24/2024 3:40 PM EDT Office Visit Cardiology at [address] [address] Rangel Willams MD [facility] [place] [address] documented as of this encounter Visit Diagnoses Diagnosis Scoliosis of cervicothoracic spine, unspecified scoliosis type Fibromyalgia Mylagia and myositis, unspecified Chronic pain syndrome documented in this encounter Care Teams Medical Records Specialist Relationship Specialty Start Date End Date Apple Walters APRN PCP - General 01/14/14 06/19/16 documented as of this encounter
--- OUTSIDE RECORDS SUMMARY | 2023-12-27 19:47 | XMS_ITS | Encounter Summary ---
Author [place] [address] Care Team Providers Care Historic Sites Registrar Name Role Phone Apple Walters APRN Primary Care Provider +1- [phone] Encounter Details Date Type Department Care Team (Late st Contact Info) Description 06/16/2015 Telephone [place] [phone] Denise Nathan, RN Social History Tobacco Use Types Packs/Day [...] encounter Miscellaneous Notes * Telephone Encounter - Lupe Ulloa LPN - 06/23/2015 1:57 PM EST Pain Management Center Preauthorization Request Patient: Ghada Charli Ervin [id number] Call received from [facility] requesting we obtain prior authorization for Lyrica 200 mg prescribed by Ignacia Florentino APRN. RX insurance plan: [place] Medicaid RX insurance telephone: Patient The following action was taken after discussion with the guest services director: x__ approved, patient informed _x_ pharmacy informed _x_ faxed approval sent to Medical Records (if received) Authorized dosage or amount: Lyrica Cap 200 Mg Authorized duration: 06/16/2015 to 06/16/2016 Authorization/Reference number: [id number] RONAL Andrade * Telephone Encounter - Denise Nathan RN - 06/16/2015 6:38 PM EST Pain Management Center Preauthorization Request Patient: Ghada Ervin [id number] Fax received from [facility] requesting we obtain prior authorization for Lyrica 200 mg prescribed by Ignacia Florentino APRN. RX insurance plan: [place] Medicaid RX insurance telephone: Patient Diagnosis: Fibromyalgia Previous medications attempted: Gabapentin, MS contin, Naproxen, Meloxicam The following action was taken after discussion with the guest services director: _X_ sent to clinical review, patient informed Denise Nathan RN documented in this encounter Plan of Treatment Upcoming Encounters Date Type Department Care Team (Late st Contact Info) Description 01/24/2024 3:40 PM EDT Office Visit Cardiology at [address] [address] Rangel Willams MD [facility] [address] documented as of this encounter Visit Diagnoses Not on filedocumented in this encounter Care Teams Historic Sites Registrar Relationship Specialty Start Date End Date Apple Walters APRN PCP - General 01/14/14 06/19/16 documented as of this encounter
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
--- OUTSIDE RECORDS SUMMARY | 2023-12-27 19:47 | XMS_ITS | Encounter Summary ---
Author Organization [facility] [place] [address] Care Team Providers Care Acid Washer Operator Name Role Phone Apple Walters APRN Primary Care Provider +1- [phone] Reason for Visit * Reason Comments Pain Management Encounter Details Date Type Department Care Team (Latest Contact Info) Description 10/28/2015 2:00 PM EDT Office [place] [phone] Ignacia Florentino PLANNING INTERN [facility] [place] [address] Fibromyalgia; Chronic pain syndrome; Scoliosis of cervicothoracic spine, unspecified scoliosis type Social History Tobacco Use Types Packs/Day [...] Sign Reading Time Taken Comments Blood Pressure 128/95 10/28/2015 1:48 PM EDT Pulse 115 10/28/2015 1:48 PM EDT Temperature - - Respiratory Rate - - Oxygen Saturation 100% 10/28/2015 1:48 PM EDT Inhaled Oxygen Concentration - - Weight 85.3 kg (188 lb) 10/28/2015 1:48 PM EDT Height 157.5 cm (5' 2) 10/28/2015 1:48 PM EDT Body Mass Index 34.39 10/28/2015 1:48 PM EDT documented in this encounter Progress Notes * Ignacia Florentino, PLANNING INTERN - 10/28/2015 1:47 PM EDT PAIN CLINIC FOLLOW-UP Ghada Evrin [id number] Reason for follow-up: Medication management Chronic Opioid Therapy Pain Management Plan signed on 09/17/14, renewed 10/28/15 UDT: 06/15/15 findings reflect reported history taken on that day The [place] Prescription Monitoring Program were checked and no issues were found. ORT Score: 5 moderate risk (due to family hx/age) Naloxone discussed: 03/27/15 prescribed Storage of opioids: Boyfriend built a garcía cabinet and locked in safe and farfan with her at all times [place] cannabis signed by Dr. Contreras 09/06 [...] been off her antidepressants and anti-anxiety medications); has contacted them, but no call back- dropped in, but they couldn't make an appointment Changes in family, social, or functional history since previous visit? 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 (meeting goal) Smoking cessation Thinking about going back to school in fall, working towards associate degree PAIN ASSESSMENT: Pain Location: mid lumbar and thoracic spine, and b/l hips; low back left side is worsening- 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, 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 or walking Pain Quality is described as constant, achy, constant shooting in the hips Pain Exacerbating/relieving activities: worse with driving, bending, lifting, better with heat and meds; worse with more walking Rated as 6/10 on average with meds- [...] weight gain Physical therapy: no using currently ([phone] Mario Desouza or Saira) Had lumbar MBB bilateral 04/20/15 without improvement in pain Gabapentin 300-300-900 stopped in 03/08 Savella (stopped on own, didn't like the way she felt on it) Depression: I'm pretty good now, less discouraged Sleep: up and down- restless legs/body at night Smoking: quit July 2015! 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 oxyCODONE-acetaminophen (PERCOCET) 10-325 mg Tablet Take 1 tablet by mouth every 4 hours as needed for Pain. NTE 4 per day; Indications: Pain cyclobenzaprine (FLEXERIL) 10 mg Tablet Take 1 tablet by mouth nightly as needed for up to 30 days. gabapentin (NEURONTIN) 400 mg Capsule Take 1 capsule by mouth 3 times daily. amoxicillin-clavulanate (AUGMENTIN-ES) 600-42.9 mg/5 mL Suspension for Reconstitution Take 600 mg by mouth 2 times daily. acetaminophen (TYLENOL) 325 mg Tablet Take 2 [...] loss or gain, fevers, chills, nightsweats +chronic Headaches affected by weather; no longer gets the different pressure headaches on the right side after surgery; vision back to normal Cardiovascular Denies chest pain, palpitations Respiratory Denies [...] percocet 10/325 NTE 4 per day #112. Reminded her if she takes an extra one day, she has to deduct one from another day. If she runs out early or doesn't have oxycodone in her urine, I can't continue to prescribe for her Renewal opioid agreement- discussed in detail. She signed agreement- copy in chart. Offered copy for her to take home but she declined saying she's familiar with the rules now. Follow up in 28 days with me Ghada had an opportunity to ask questions. Ignacia Florentino, MICHAEL, ANP, PLANNING INTERN documented in this encounter Plan of Treatment Upcoming Encounters Date Type Department Care Team (Late st Contact Info) Description 01/24/2024 3:40 PM EDT Office Visit Cardiology at [address] [address] Rangel Willams MD [facility] [place] [address] documented as of this encounter Visit Diagnoses Diagnosis Fibromyalgia Mylagia and myositis, unspecified Chronic pain syndrome Scoliosis of cervicothoracic spine, unspecified scoliosis type documented in this encounter Care Teams Acid Washer Operator Relationship Specialty Start Date End Date Apple Walters APRN PCP - General 01/14/14 06/19/16 documented as of this encounter
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
--- OUTSIDE RECORDS SUMMARY | 2023-12-27 19:47 | XMS_ITS | Encounter Summary ---
[place] [address] Care Team Providers Care Probation Supervisor Name Role Phone MicahVicky Luis A ALVAREZ Primary Care Provider +1 [phone] Encounter Details Date Type Department Care Team (Late st Contact Info) Description 04/19/2018 [place] [phone] Pippa Miranda Social History Tobacco Use Types Packs/Day Years [...] encounter Miscellaneous Notes * Telephone Encounter - Pippa Miranda - 04/19/2018 8:45 AM EST Keri from [facility] called looking for coil info for and MRI done locally. Per antoinette YEAGER to send for continuity of care. documented in this encounter Plan of Treatment Upcoming Encounters Date Type Department Care Team (Late st Contact Info) Description 01/24/2024 3:40 PM EDT Office Visit Cardiology at [address] [address] Rangel Willams MD [facility] [address] documented as of this encounter Visit Diagnoses Not on filedocumented in this encounter Care Teams Probation Supervisor Relationship Specialty Start Date End Date Vicky Obrien APRN PCP - General Family Medicine 08/25/17 11/21/18 documented as of this encounter
--- OUTSIDE RECORDS SUMMARY | 2023-12-27 19:47 | XMS_ITS | Encounter Summary ---
[place] [address] Care Team Providers Care Nitric Acid Plant Operator Name Role Phone RomeoSarahdee dee Rizzo APRN Primary Care Provider [phone] Encounter Details Date Type Department Care Team (Late st Contact Info) Description 10/02/2015 Telephone [place] [address] Lupe Beavers LPN Social History Tobacco Use [...] Telephone Encounter - Lupe Ulloa LPN - 10/02/2015 3:23 PM EDT Pt voiced her insurance has been dropped. Not sure why. Oxycodone prescription as written will costher $400. She though Ignacia told her that there is another type of medication. Ignacia Watts thought the straight Oxycodone without Tylenol might be cheaper. Nurse [place] [facility] [place]100 for 112 tablets. Nurse returned call to patient. She voiced she just going to wait. documented in this encounter Plan of Treatment Upcoming Encounters Date Type Department Care Team (Late st Contact Info) Description 01/24/2024 3:40 PM EDT Office Visit Cardiology at [address] [phone] Rangel Willams MD [facility] [place] [address] documented as of this encounter Visit Diagnoses Not on filedocumented in this encounter Care Teams Nitric Acid Plant Operator Relationship Specialty Start Date End Date Apple Walters APRN PCP - General 01/14/14 06/19/16 documented as of this encounter
--- OUTSIDE RECORDS SUMMARY | 2023-12-27 19:47 | XMS_ITS | Encounter Summary ---
Author Organization [facility] [place] [address] Care Team Providers Care Pipe Insulator Helper Name Role Phone ObrienVicky Luis A ALVAREZ Primary Care Provider [phone] Reason for Visit * Auth/Cert Specialty Diagnoses / Procedures Referred By Lang sanches Referred To Contact Diagnoses Stroke CVA Procedures EMERGENCY IPI Referral ID Status Reason Start Date Expiration Date Visits Re quested Visits Authorized [id number] 1 1 Encounter Details Date Type Department Care Team (Latest Contact Info) Description 09/05/2018 2:07 PM EDT - 09/12/2018 6:00 PM EDT Hospital Encounter [address] [place] [address] Kd Ridley MD [facility] [place] [address] Meagan Garza MD [facility] [place] [address] Taya Jimenez MD [facility] [place] [address] Heart palpitations; Cerebrovascular accident (CVA), unspecified mechanism Discharge Disposition: Home with VNA Social History Tobacco Use Types Packs/Day Years [...] Sign Reading Time Taken Comments Blood Pressure 162/97 09/12/2018 5:21 PM EDT Pulse 106 09/12/2018 5:21 PM EDT Temperature 36.8 ??C (98.2 ??F) 09/12/2018 2:15 PM ED T Respiratory Rate 14 09/12/2018 2:15 PM EDT Oxygen Saturation 93% 09/12/2018 2:15 PM EDT Inhaled Oxygen Concentration - - [...] Savannah Moore Patient Age: 27 y.o. Language: Citizen Of [place] Race: White Ethnicity: Not nor Admit date: [...] author(s) of this discharge summary through the [facility] Flight Crew Scheduler . Discharge Diagnoses: Active Hospital Problems Diagnosis [...] on Presentation to OSH Temp - 37.3 MS - 97 RR - 21 BP - [...] L Elbow flexion 5/5 R, 4/5 L Digital Community Manager +pronator drift on left LE: 5/5 R, [...] L Elbow flexion 5/5 R, 4/5 L Digital Community Manager No pronator drift LE: 5/5 R, 4/5 [...] Other (See Comments) flushing, respiratory trouble ??? Highfill Other (See Comments) Flu like sx ??? [...] for follow-up after discharge was performed. Modified [place] Score (MRS) on discharge Score Description 0 [...] were admitted to the neurology service at [facility] Your Diagnosis: Stroke - Work close with [...] 10. Consider Diabetes Education in your community; [facility] offers a diabetes program called ???Jump Start?? . Call [facility] for more information. Know Your Numbers! Blood [...] follow-up appointment in the neurology clinic at [facility]. See below for the appointment time. If [...] author(s) of this discharge summary through the [facility] Flight Crew Scheduler . General Instructions None Future Appointments and Orders Future Appointments and Orders Future Appointments Provider Department Dept Phone 09/19/2018 3:00 PM Ayaan Castro MD Neurosurgery at [facility]: [facility] [phone] 10/09/2018 9:00 AM Rangel Willams MD Cardiology at [facility]: [facility] [phone] 10/12/2018 3:00 PM Brittney Arriaga APRN Neurology at [facility]: [facility] [phone] 10/18/2018 8:00 AM Marah Mak MD Gastroenterology at [facility]: [facility] [phone] Future Orders Complete By Expires Referral to Home Health - at DISCHARGE [[id number] CPT(R)] As directed Process Instructions: Scheduling Instructions: Comments: DOCUMENTATION FOR VNA SERVICES (INCLUDING THOSE PATIENTS WITH MEDICARE COVERAGE REQUIRING HOME VNA SERVICES AND/OR HOSPICE SERVICES) PATIENT'S LOCATION: Savannah Moore [address] [place] [address] Cell: Telephone Information: Lining Vamper's Name: self In discussion with the attending physician, it is certified that this patient is under their care and that they, or a Nurse Practitioner,Clinical Nurse specialist or Physician Cafe Attendant who is working directly with them, had [...] re health issues HOME HEALTH CARE AGENCY: [facility] PHONE: [phone] FAX: [phone] Start of care: 24-48 hours Patient is homebound due to the following: LE weakness or decreased balance and risk for falls Unsteady Gait, poor balance , requiring assistive devices and/or assistance of another Please note that any additional orders needs or changes will need to be obtained from this patient's PCP: Vicky Obrien APRN [address] [place] [address] / [facility] [address] All [facility] agencies which cover the area of patient's residence have been reviewed, either verbally lucinda writing, and patient/family have chosen the home health care agency noted Questions: Agency name and contact information: [facility] Patient location post discharge: [address] [place] [address] [place], [place] What services are requested: Registered Nurse Start date: Responsible MD post discharge contact info: PCP Primary Care Provider: Vicky Obrien APRN [address] / [facility] [address] Discharge References/Attachments Echocardiogram: Transesophageal: Post-op (Citizen Of [place]) documented in this encounter Discharge Instructions * Patient Instructions* Gabby Abel MD - 09/11/2018 1:49 PM EDT Images from the original note were not included. Patient Instructions: You were admitted to the neurology service at [facility] Your Diagnosis: Stroke - Work close with [...] 10. Consider Diabetes Education in your community; [facility] offers a diabetes program called ???Jump Start?? . Call [facility] for more information. Know Your Numbers! Blood [...] follow-up appointment in the neurology clinic at [facility]. See below for the appointment time. If [...] author(s) of this discharge summary through the [facility] Flight Crew Scheduler . * Attachments The following attachments cannot be sent through Care Everywhere. * Echocardiogram: Transesophageal: Post-op (Citizen Of [place]) documented in this encounter Medications at Time [...] of this encounter Progress Notes * Saud Sinclair RN - 09/12/2018 7:36 PM EDT Savannah Moore discharged to friend's Home} by private car with her friend. All belongings sentwith patient. AKILA removed, skin free from pressure ulcers. Discharge instructions, medications, andfollow-up appointments reviewed, education provided on stroke signs and calling 911, Rx transmittedto [facility] pharmacy at [facility], all questions answered. VNA paperwork faxed. Patient instructed to call with concerns. * Juanita Diamond RN - 09/12/2018 3:22 PM EDT Received call from Naz Saldivar, Medicaid CM, concerned with patient's housing situation. Spoke withpatient regarding DC planning. States she is going to stay with her friend for 2-3 weeks while Nazis working on her housing. The address is [address] [place] [address] VNA order for nursing pended. informed. Patient states her friend, Genaro, is picking her up around 4:30-5:00 to transport her home. Called and left message with Naz to inform of plan. No additional CM needs identified. 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 A letter describing our affiliations was reviewed with them and they were educated about their right to choose where referrals are placed. Patient requests referral to [facility]. PHONE: [phone] FAX: [phone]. Expected date of discharge: today. Referral routed to the Rework Operator for matching with agency/vendor and to provide [...] with VNA services.Awaiting response. Juanita Diamond RN [facility] Seafood Preparer # [phone] * Taya Jimenez MD - 09/12/2018 8:22 [...] L Elbow flexion 5/5 R, 4/5 L Digital Community Manager No pronator drift LE: 5/5 R, 4/5 [...] Negative mcL Appearance UA Clear Clear Spec Mounds UA 1.010 1.002 - 1.030 Color UA [...] daily -Zofran Q8Hr -Consider a trial of mg Q8hr -Hep C Viral Load pending [...] Gabby Abel MD 09/12/2018 Vascular Neurology Pager [phone] Neurology Attending Attestation I evaluated the patient [...] indicated Blood Pressure goals/control Normotension Glycemic control Ycr5p-5.3 Smoking/tobacco Social History Tobacco Use Smoking Status [...] Up Note 09/12/2018 7:25 AM ID: Savannah Augustin Moore is a 27 y.o. w/ PMH of AVNRT status post ablation, right paraophthalmic aneurysm status post coiling, IVDA complicated by hepatitis C infection (untreated) who was admitted to [facility] on 09/05/2018 for multifocal strokes, for whom [...] PHOS -- 4.6* 2.8 Recent Labs 09/12/18 0625 09/07/18 0744 09/06/18 [...] C infection (untreated) who was admitted to [facility] 09/05/2018 for multifocal strokes, for whom cardiology [...] daily Continue lisinopril 5mg Ze Farmer MD [facility], PGY6 -09/12/2018 7:25 AM Cardiology Staff - Addendum (follow-up) This patient was seen and examined with Dr. Farmer, squash centre manager. I agree with his findingsand plan of [...] an incidental to the abnormal LVEF. The EVELIO demonstrated a PFO and we explained that [...] L Elbow flexion 5/5 R, 4/5 L Digital Community Manager No pronator drift LE: 5/5 R, 4/5 [...] daily -Zofran Q8Hr -Consider a trial of mg Q8hr -Hep C Viral Load pending [...] Gabby Abel MD 09/11/2018 Vascular Neurology Pager [phone] Neurology Attending Attestation I evaluated the patient [...] indicated Blood Pressure goals/control Normotension Glycemic control Hlq2i-5.3 Smoking/tobacco Social History Tobacco Use Smoking Status [...] gauge;1 in length;3/4 in length 09/05/18 2140 3 Peripheral IV Line - Single Lumen [...] multifocal infarcts. Interval History - NPO since [facility] for EVELIO and Cardiac MRI. On IVFM [...] ??? sodium chloride 0.9% 1,000 mL (09/10/18 0567) Physical Exam: Vitals: Temp: [36 ??C (96.8 [...] L Elbow flexion 5/5 R, 4/5 L Digital Community Manager No pronator drift LE: 5/5 R, 4/5 [...] Q6 - Cardiac MRI mon- NPO at [facility] - EVELIO PENDING # Headaches - Scheduled [...] Gabby Abel MD 09/10/2018 Vascular Neurology Pager [phone] Neurology Attending Attestation I evaluated the patient [...] indicated Blood Pressure goals/control Normotension Glycemic control Nsy9r-0.3 Smoking/tobacco Social History Tobacco Use Smoking Status [...] gauge;1 in length;3/4 in length 09/05/18 2140 3 Peripheral IV Line - Single Lumen 09/06/18 0452 median cubital vein (antecubital fossa), right 18 gauge;1 in length;3/4 in length 09/06/18 0452 3 Review standing lab orders Reviewed Educational packet Given NIHSS (approx 36 hour post t-PA and intervention) N/A Telemetry reviewed / medically necessary Reviewed * Esme Burton RN - 09/09/2018 2:52 PM EDT Pt transferred to [facility] for privacy. All belongings transferred with her. [...] L Elbow flexion 5/5 R, 4/5 L Digital Community Manager No pronator drift LE: 5/5 R, 4/5 [...] pending cardiac MRI, EVELIO mon. NPO at [facility]. Pt complaining of severe nausea, emesis. Will [...] Q6 - Cardiac MRI mon- NPO at [facility] - EVELIO # Headaches - Scheduled tylenol [...] Diane Harris MD 09/09/2018 Vascular Neurology Pager [phone] Antithrombotic stroke prevention DAPT Statin therapy Not currently indicated Blood Pressure goals/control Normotension Glycemic control Czg9t-4.3 Smoking/tobacco Social History Tobacco Use Smoking Status [...] gauge;1 in length;3/4 in length 09/05/18 2140 3 Peripheral IV Line - Single Lumen [...] angiogram once cardiac testing is clarified. * Antonio, Amnada M, RN - 09/08/2018 6:55 AM EDT Patient [...] L Elbow flexion 5/5 R, 4/5 L Digital Community Manager +pronator drift on left LE: 5/5 R, [...] head only - Ophthalmology consult, recs appreciated -PT/OT/INVESTMENT COUNSELOR #Reduced EF -LVEF 45% on TTE (09/06) [...] Gabby Abel MD 09/08/2018 Vascular Neurology Pager [phone] Antithrombotic stroke prevention ASA Statin therapy N/A [...] noted. Assessment: Patient seen for stroke diagnosis. Open Hearth Melter explained current diet order without questions and patient denies need for nutrition education. She reported a fair to good appetite without difficulty chewing. Patient reported some difficulty with swallowing, stating I just had a stroke so I have to be careful, but I'm fine. Open Hearth Melter spoke with RN who stated she has [...] consulted in the interim. NELY IbarraR Pager# [phone] * Taya Jimenez MD - 09/07/2018 7:58 [...] L Elbow flexion 5/5 R, 4/5 L Digital Community Manager +pronator drift on left LE: 5/5 R, [...] Note Diagnostic Tests and Imaging: CT Angiogram [facility] & CT Venogram of Brain [...] head only - Ophthalmology consult, recs appreciated -PT/OT/INVESTMENT COUNSELOR #Reduced EF -LVEF 45% on TTE (09/06) [...] Gabby Abel MD 09/07/2018 Vascular Neurology Pager [phone] Neurology Attending Attestation I evaluated the patient [...] eval. Mobility Up with assistance Last BM SENIOR RESEARCH ENGINEER LDAs Patient Lines/Drains/Airways Status Active LDAs Name: [...] post t-PA and intervention) N/A * Johnny Lopez MSW - 09/06/2018 4:46 PM EDT Patient off [...] patient for nutrition visit. NELY IbarraR Pager# [phone] * Melida Crawford OT - 09/06/2018 2:09 PM EDT Chart reviewed and orders received. Patient at Ophthamalogy and we will f/u with OT tomorrow. [...] L Elbow flexion 5/5 R, 4/5 L Digital Community Manager +pronator drift on left LE: 5/5 R, [...] its dosing from her [facility]. She will be assess by [...] CTA head only - Ophthalmology consult tmr -PT/OT/INVESTMENT COUNSELOR # Headaches - IVF, IV mag, depacon 500mg - Scheduled tylenol - Planning on restarting Methadone once confirmed by DAIJA # Home meds (med rec completed with [...] Gabby Abel MD 09/06/2018 Vascular Neurology Pager [phone] Neurology Attending Attestation I evaluated the patient [...] eval. Mobility Up with assistance Last BM SENIOR RESEARCH ENGINEER LDAs Patient Lines/Drains/Airways Status Active LDAs Name: Placement date: Placement time: Site: Days: Peripheral IV Line - Single Lumen 09/05/182139 cephalic vein (lateral side of arm), left 22 gauge;1 in length;3/4 in length 09/05/182139 less than 1 Peripheral IV Line - Single Lumen 09/06/18 0452 median cubital vein (antecubital fossa), right 18 gauge;1 in length;3/4 in length 09/06/18451 less than 1 Review standing lab orders BMP, CBC, Calcium, LFTs, Mg, PO4, SSA, SSB, Cytoplasmic Neutrophilic Ab,UA Educational packet PENDING NIHSS (approx 36 hour post t-PA and intervention) N/A * Jasbir Obrien RN - 09/05/2018 4:25 PM EDT Pt from outside hospital to [facility] Pt axo mother at bedside Pt complains of pain in the back of the head 8/10 Pt has left sided weakness U and LLE 3/5 Push/pull Pt did not get up to [...] on Presentation to OSH Temp - 37.3 MS - 97 RR - 21 BP - [...] Other (See Comments) flushing, respiratory trouble ??? Highfill Other (See Comments) Flu like sx ??? [...] of heroine, cocaine, and opiates. Enrolled in [facility] on Methadone Living situation: Social History Socioeconomic [...] file Gets together: Not on file Attends caodaism service: Not on file Active member of [...] L Elbow flexion 5/5 R, 4/5 L Digital Community Manager +pronator drift on left LE: 5/5 R, [...] of the sensory modalities 2-Severe maribel-inattention or marible-inattention to more than one modality TOTAL SCORE: [...] CTA head only - Ophthalmology consult tmr -PT/OT/INVESTMENT COUNSELOR # Headaches - IVF, IV mag, depacon [...] Diane Harris MD 09/05/2018 Vascular Neurology Pager [phone] Standard [facility] Swallow Screen: This screen is to be [...] diet as medical provider deems appropriate. Consider INVESTMENT COUNSELOR consult for full evaluation and diet recommendations. [...] of two midnights or is on the [facility] inpatient only procedure list (status C) due [...] Freeman MD - 09/12/2018 6:00 PM EDT [facility] Operative Note Patient Name: Savannah Moore : [id number] MR#: [id number] Case Date: 09/12/2018 Surgeon: Surgeon(s) and Role: [...] Negative mcL Appearance UA Clear Clear Spec Mounds UA 1.010 1.002 - 1.030 Color UA [...] fundoscopic exam. Stefanie Rivers MD Headache Fellow [facility] Neurology Associated attestation - Trisha Dior MD - 09/12/2018 4:43 PM EDT Neurology Attending Note Trisha Dior MD (Pg [phone]) I certify that I have seen and [...] up out of bed to go to BR with steady gait and does not use [...] Outcome: Ongoing (Interventions Implemented as Appropriate) 09/11/18 5489 Coping/Psychosocial Plan Of Care Reviewed With patient [...] this time in hospital course [ ] Long Term Facility * Plan of Care - Mandeep [...] ??? sodium chloride 0.9% 1,000 mL (09/10/18 8051) calcium carbonate, ondansetron OR ondansetron, docusate sodium, albuterol, sodium chloride 0.9 %, lidocaine, magnesium hydroxide, bisacodyl, labetalol, enalaprilat, ketorolac ALLERGIES Allergies Allergen Reactions ??? Bee Pollen Anaphylaxis ??? Meperidine Hcl Anaphylaxis and Other (See Comments) flushing, respiratory trouble ??? Highfill Other (See Comments) Flu like sx ??? [...] file Gets together: Not on file Attends caodaism service: Not on file Active member of [...] Dr. Velásquez. Lv Saba MD Gastroenterology Fellow #[phone] Attending Addendum: I interviewed and examined the patient with Dr. Saba on rounds. I confirm the history and farfan physical findings outlined in this note. The assessment and plan were formulated in discussion with me at the time of this encounter, and I agree with them as documented. Elena Velásquez MD Gastroenterology and hepatology Pager: [phone] * Plan of Care - Esme Burton [...] supraclinoid right internal carotid artery and on [id number] imaging this represents a 6 x 5 [...] thrombosis. MRI read of OSH scans by [facility] radiology 09/04 FINDINGS: Motion artifact limits evaluation. [...] Q10 Vit. B2(riboflavin) [place] Feverfew Melatonin Ketamine [place] Percocet Vicodin Oxycodone Dilaudid Tramadol Morphine Marijuana [...] at 09/10/18 1807 1,000 mL at 09/10/18 1807 ??? enoxaparin (LOVENOX) injection 40 mg 40 [...] Other (See Comments) flushing, respiratory trouble ??? Highfill Other (See Comments) Flu like sx ??? [...] file Gets together: Not on file Attends caodaism service: Not on file Active member of [...] Neurology Attending Note Trisha Dior MD (Pg [phone]) I certify that I have seen and examined discussed Savannah Moore on 09/10/[address] Rivers, Headache Fellow. The note reflects the patient's history of presentation, physical findings. The assessment and plan were formulated together in discussion and I have personally reviewed all studies. * Plan of Care - Melida Crawford OT - 09/10/2018 11:45 AM EDT Occupational Therapy Treatment Note Treatment Number OT: 2 Patient Dx: Savannah Moore is a 27 [address] of Dr[address] Meagan Garza MD, admitted on 09/05/2018 with a PMH??chronic migraines (since age 10),??IVDU and opiate dependence (17 months sober, on methadone), depression, fibromyalgia, severe scoliosis (s/p surgical correction with Tejeda Connor),??AV node ablation for SVT in 2015, PTSD,??unruptured cerebral aneurysm s/p coiling??(2015), chronicpain,??and??hepatitis C??(untreated)??who presents as a transfer from [facility] today for acute ischemic stroke. Precautions/Special [...] STM, however she reports she had this SENIOR RESEARCH ENGINEER. Patient receptive to education on exercises for [...] Minutes, Occupational Therapy: 16(therapeutic functional activity) Pager: [phone] MELIDA CRAWFORD OT Occupational Therapy Rehabilitation Department * Plan of Care - Ayden Toscano RN - 09/10/2018 4:40 AM EDT Problem: Patient Care Overview Goal: Plan of Care Review Outcome: Ongoing (Interventions Implemented as Appropriate) 09/09/1885109/09/182032 Coping/Psychosocial Plan Of Care Reviewed With -- [...] Control Outcome: Ongoing (Interventions Implemented as Appropriate) 09/09/1879909/10/18 0200 Safety Interventions Isolation Precautions -- standard [...] this time in hospital course [ ] Long Term Facility * Plan of Care - Jasbir [...] this time in hospital course [ ] Long Term Facility * Plan of Care - Amanda [...] 09/07/2018 Admit Date: 09/05/2018 Place of Service: [facility] Responsible Attending: Dr. Branham Hospital Day 2 days Reason for Consult: We are seeing Savannah Moore at the request of Dr. Garza. I have reviewedthe available records, interviewed and examined the patient. New cardiomyopathy Active Problems: Active Hospital Problems Diagnosis ??? Stroke Resolved Hospital Problems No resolved problems to display. HPI: Savannah Moore is a 27 y.o. female with a history significant for AVNRT s/p ablation (01/12/15), right para-ophthalmic aneurysm s/p coiling (2015), migraines, IVDA in remission who was admitted to [facility] on 09/05/2018 for multifocal strokes. Cariology is consulted regarding new finding of cardiomyopa thy. The patient reports recent worsening headaches. Due to this, she presented to outside hospital where imaging with MRI and MRV showed small multiple small foci of recent/acute ischemic changes in the right cerebral hemisphere involving the right parietal, posterior frontal, and occipital lobe. She was transferred to [facility] neurology for further work-up. Further evaluation with [...] heart disease with her father dying from [place] at age 52. She has multiple tattoos, [...] Other (See Comments) flushing, respiratory trouble ??? Highfill Other (See Comments) Flu like sx ??? [...] file Gets together: Not on file Attends caodaism service: Not on file Active member of [...] Encounter Date Admission (Current) from 09/05/[address] [place] [address] Office Visit from 11/25/2015 in [facility] at [place] Weight 109.9 kg (242 lb 3.2 oz) [...] 34.0* 32.4* PLATELET 226 192 Recent Labs 09/07/1874309/06/18 1001 NA 141 142 K 4.1 4.1 [...] contact with questions/concerns. Luis M North MD [facility] Pager [phone] CARDIOLOGY STAFF NOTE I have personally interviewed [...] initiate low-dose medical regimen. Yang Branham MD, [facility], [facility] Staff Rail Car Driver pager [phone] * Plan of Care - Melida Crawford, [...] pain,??and??hepatitis C??(untreated)??who presents as a transfer from [facility] today for acute ischemic stroke. Social [...] Total Evaluation Minutes, Occupational Therapy: (P) 24(evaluation) 2016 OT Evaluation Code Rationale: ?? Diagnosis & [...] and measurable assessment of functional outcome. Pager: [phone] MELIDA CRAWFORD OT 09/07/2018 Occupational Therapy Rehabilitation Department * Plan of Care - Lynsey Kaiser, PT - 09/07/2018 2:58 PM EDT Physical Therapy Note Patient profile: Savannahtamra Moore??is a??27 y.o.??R handed??female??with a PMH??chronic migraines (since age 10),??IVDU and opiate dependence (17 months sober, on methadone), depression, fibromyalgia, severe scoliosis (s/p surgical correction with Tejeda Connor),??AV node ablation for SVT in 2014, PTSD,??unruptured cerebral aneurysm s/p coiling??(2015), chronic pain,??and??hepatitis C??(untreated)??who presents as a transfer from [facility] today for acute ischemicstroke. Interval History: [...] Therapy: 17 Lynsey Kaiser DPT, NCS Pager: [phone] Physical Therapy Inpatient Rehabilitation Department * Consult [...] protonix, Proventil, melatonin All: Bee pollen, Demerol, Highfill, Zoloft SH: Lives with her cousin, disaster recovery specialist Imaging: MR head 09/06/18 - radiology read Multiple sites of acute cortical infarction in the right MCA distribution. Small site of right frontal cortical encephalomalacia from chronic infarction. No mass or mass effect. ?? MRA: No proximal vascular thrombosis. Examination Location: [facility] Savannah Moore was oriented to person, place and time and had an appropriate affect. VAsc: OD: 20/100 OS: 20/50 VArefracted OD: 20/25 OS: 20/20 With myopic correction OU VF: OD: globally constricted OS: full Automated VF: Unreliable - artifacts of inattention; many fixation losses Color: OD: 7/10 OS: 10/10 Stereo: + fly, 1/3 animals, 6/9 circles [...] OU, no disc edema or pallor. No GOVERNMENT AUDITOR noted. (Dilated with 1% tropicamide and 2.5% [...] have discussed my findings and concerns with Moore and Dr. Ben Abel. Please don't hesitate tocontact me if I can be of more assistance. Jose Dahl MD Section of Ophthalmology [facility] page: [phone], office: [phone] * Plan of Care - Esme Burton RN - 09/07/2018 5:17 AM EDT Problem: Patient Care Overview Goal: Plan of Care Review Outcome: Ongoing (Interventions Implemented as Appropriate) 09/06/181999 Coping/Psychosocial Plan Of Care Reviewed With patient OUTCOME EVALUATION NOTE: OUTCOME SUMMARY: Pt alert and oriented. Able to make needs known. Pt had one bout of emesis. Medicated per jun with positive effect. Pt resting comfortably on [...] Pharmacy: [facility] Primary Care Provider: Vicky Obrien, KIM [phone] Patient/Caregiver Goals of Treatment: feel better; have more energy Potential Needs for Transition of Care: Rehab/SNF: I guess [place] [facility] ? Home Health: has used [facility] D[facility]: I use a cane Dialysis: NA [...] (untreated) who presents as a transfer from [facility] today for acute ischemic stroke. Plan: Likely home with assist, home services, and follow up A member of the Care Management team will continue to monitor progress, follow for continuity of care and assist with transition of care planning. ALCIDES Giles Pager: [phone] * Plan of Care - Lynsey Kaiser, [...] (untreated) who presents as a transfer from [facility] today for acute ischemic stroke. Patient [...] 08:57-09:19 Total Evaluation Minutes, Physical Therapy: 21 DAYAMI LancasterT, NCS Pager: [phone] Physical Therapy Inpatient Rehabilitation Department * Plan [...] y.o. female Onset of symptoms (if witnessed): 5/13 around 8:00PM Last known well: 09/03 8:00PM HPI: Savannah Moore is a 27 y.o. R handed female with a PMH chronic migraines (since age 10), IVDU and opiate dependence (17 months sober, on methadone), depression, fibromyalgia, severe scoliosis (s/psurgical correction with Tejeda Connor), AV node ablation for SVT in 2014, PTSD, unruptured cerebral aneurysm s/p coiling (2015), chronic pain, and hepatitis C (untreated) who [facility] a [facility] for acute ischemic [facility]. She presented to OSH on 09/03 with worsening headaches and new onset blurry vision, diplopia. Ms. Moore reports that last , 08/30, she presented to [facility] ED with 2 days of RLQ ABD [...] 8PM. This prompted herto present to the [facility] ED, driven by a friend. Notably, she [...] 1 RBC, normal glucose and normal protein).At [facility], she was given compazine, dilaudid, morphine and benadryl. She reports positive response to the dilaudid, though it is unclear if the relief was also provided from the LP. She has a 2016 ALFREDO and RF which are also negative from [facility]. Given the clinical findings and high closing pressure on LP, there was concern of IIH (pseudotumor cerebri) and interest in obtaining ophthalmology evaluation of fundus under dilation. Per [facility] Records: In the ED at [facility], she had a CT head which showed an old right frontal hypodensity in addition to artifact from coiling. Notably, she presented to [facility] on February 13, 2017 for similar symptoms [...] performed or reported at the time in [facility] ED. She had a lab workup with elevated ESR of 21, CRP 7.39. She was admitted to [facility] andhad an MRI showing an old right [...] cocaine, opiates; currently daily THC user, in [facility] on methadone maintenance program ETOH: 1-2 glasses [...] Other (See Comments) flushing, respiratory trouble ??? Highfill Other (See Comments) Flu like sx ??? 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 # Headaches - IVF, IV mag, [...] FULL code RICCO Pinto-Student [place] [address] documented in this encounter Plan of Treatment Upcoming Encounters Date Type Department Care Team (Late st Contact Info) Description 01/24/2024 3:40 PM EDT Office Visit Cardiology at [address] [phone] Rangel Willams MD [facility] [place] [address] Scheduled Orders Name Type Priority Associated Diagnoses [...] 6:46 AM EDT HIV SCREEN, 4TH GENERATION ([facility]/CGP/APD/NLH) Routine 09/08/2018 6:46 AM EDT HEPATITIS B [...] PANEL Routine 09/07/2018 7:[address] [place] W CONTRAST Routine 09/06/2018 8:[address] VENOGRAM BRAIN Routine 09/06/2018 8:0 8 PM EDT ECHO COMPLETE W CONTRAST Routine 09/06/2018 1:31 PM EDT Heart palpitations LIPID PANEL (REFLEX DIRECT LDL) Routine 09/06/2018 10:02 AM EDT BMP W/FASTING GLUCOSE Routine 09/06/2018 10:01 AM EDT HEMOGRAM Routine 09/06/2018 10:01 AM EDT DIFFERENTIAL, AUTOMATED Routine 09/07/19 19 10:01 AM EDT CBC (WITH DIFF) Routine 09/06/2018 10:01 AM EDT TRIGLYCERIDE Routine 09/06/2018 10:01 AM EDT PHOSPHORUS Routine 09/06/2018 10:01 AM EDT MAGNESIUM Routine 09/06/2018 10:01 AM EDT LDL CHOLESTEROL, DIRECT Routine 09/07/19 19 10:01 AM EDT HDL/CHOL PROFILE Routine 09/06/2018 10:0 1 AM EDT HEMOGLOBIN A1C Routine 09/06/2018 10:01 AM EDT HEPATIC FUNCTION PANEL Routine 9 10:01 AM EDT BLOOD CULTURE STAT 09/05/2018 10:00 PM EDT CRP, ACUTE INFLAMMATION Routine 09/06/19 19 9:45 PM EDT SS-B/LA ANTIBODY Routine 09/05/2018 [...] EVELIO IN MINOR (09/12/2018 1:14 PM EDT) [facility] EF 50 [employer] SYSTEM Anatomical Region Laterality Modality Other 09/12/2018 Narrative 09/12/2018 2:10 PM EDT Procedure: ?Transesophageal Echocardiogram Patient: ?TERESA NUÑEZ A ? (Age): 1990(27y) Med Rec#: ? [id number] ?Sex: ?F ? Site Loc: ? [facility] ?Ht / Wt: ??157(cm)/110(kg) Pt. Loc: ?Echo Lab ?BSA: ?2.07 Study Date: ?? 09/12/2018 ?Pt. Type: Tape: ? Referring: LM Reading: Ze Freeman ([id number]) Iron Miner: Ayden Tadeo MS, [facility] Iron Miner: Ze Freeman ([id number]) Diagnosis: *Cerebral infarction, unspecified (I63.9) BP: ? [...] ? Mid-Inferior ?Hypokinetic ? Mid-Inferoseptal ?Hypokinetic ? Superior-Septal ? Hypokinetic ? Superior-Anterior ? Hypokinetic ? Superior-Lateral ?Hypokinetic ? Superior-Inferior ? Hypokinetic ? Superior-Tip ?Hypokinetic ? This report has been electronically signed by: Ze Freeman M.D. ? 09/12/2018 14:10:12 Images reviewed and interpretation verified [facility] Cardiac Ultrasound Laboratory Procedure Note Ze Freeman MD - 09/12/2018 Procedure: Transesophageal Echocardiogram Patient: TERESA Augustin (Age): 1990(27y) Med Rec#: [id number] Sex: F Site Loc: [facility] Ht / Wt: 157(cm)/110(kg) Pt. Loc: Echo Lab BSA: 2.07 Study Date: 09/12/2018 Pt. Type: Tape: Referring: LM Reading: Ze Freeman ([id number]) Iron Miner: Ayden Tadeo MS, [facility] Iron Miner: Ze Freeman ([id number]) Diagnosis: *Cerebral infarction, unspecified (I63.9) BP: 125/72 [...] Hypokinetic Mid-Posterolateral Hypokinetic Mid-Inferior Hypokinetic Mid-Inferoseptal Hypokinetic Superior-Septal Hypokinetic Superior-Anterior Hypokinetic Superior-Lateral Hypokinetic Superior-Inferior Hypokinetic Superior-Tip Hypokinetic This report has been electronically signed by: Ze Freeman M.D. 09/12/2018 14:10:12 Images reviewed and interpretation verified [facility] Cardiac Ultrasound Laboratory Meagan Garza MD ECHO ORDERABLES * (ABNORMAL) Comprehensive metabolic panel (non-fasting) (09/12/2018 6:25 AM EDT) Glucose 78 65 - 199 mg/dL [facility] Comment:Diabetes: >=200 mg/d L plus symptoms Blood Urea Nitrogen 17 8 - 18 mg/dL [facility] Creatinine 1.13 0.70 - 1.20 mg/dL [facility] Sodium 143 135 - 145 mmol/L [facility] Potassium 4.6 3.5 - 5.0 mmol/L [facility] Comment: Please note: ??Patients with WBC >100,000 may have falsely elevated Potassium levels. ??For accurate Potassium quantification in these patients send serum separator tube (gold top) for subsequent determinations. ??Contact the Clinical Chemistry Laboratory if there are any questions. Chloride 105 98 - 107 mmol/L [facility] Carbon Dioxide 29 22 - 31 mmol/L [facility] Anion Gap 9 5 - 15 mmol/L [facility] Calcium 8.9 8.5 - 10.5 mg/dL [facility] Protein, Total 6.6 6.1 - 8.0 gm/dL [facility] Albumin 3.5 3.2 - 5.2 gm/dL [facility] Aspartate Aminotransferase 22 0 - 30 unit/L [facility] Alanine Aminotransferase 37(H) 0 - 30 unit/L [facility] Alkaline Phosphatase 110(H) 40 - 104 unit/L [facility] Bilirubin, Total 0.2 0.2 - 1.3 mg/dL [facility] Est Glomerular Filtration Rate 66 >=60 mL/min/1. 73 m?? [facility] Comment: The eGFR was calculated using the CKD-EPI equation. As with all creatinine based estimates of kidney function, eGFR values calculated with the CKD-EPI equation are not accurate in patients with acute kidney failure, extremes of body mass or the acutely ill. [email or web address] eGFR 77 >=60 mL/min/1. 73 m?? [facility] Comment: The eGFR was calculated using the CKD-EPI equation. As with all creatinine based estimates of kidney function, eGFR values calculated with the CKD-EPI equation are not accurate in patients with acute kidney failure, extremes of body mass or the acutely ill. [email or web address] Blood specimen (specimen) 09/12/2018 6:25 AM EDT 09/12/2018 6:53 AM EDT Narrative Resulting Agency Comment Spec In Lab Meagan Garza MD CHEMISTRY ORDERABL ES [facility] [place] [address] * CT Venogram Pelvis (09/11/2018 12:57 PM [...] the number below. Electronically signed by: BRITTANI Curtis [facility]([phone]), at 09/11/2018 1:39 PM Meagan Garza MD IM CT ORDERABLES * XR Abdomen Flat & [...] contact the number below. ? Narrative 09/11/2018 10:51 AM EDT EXAMINATION: XR [...] the number below. Meagan Garza MD IMG DX ORDERABLES * Urinalysis with reflex Culture (09/11/2018 9:37 AM EDT) Glucose, Urine Dipstick Negative Negative mg/dL [facility] Protein, Urine Dipstick Negative Negative mg/dL [facility] Bilirubin, Urine Dipstick Negative Negative mg/dL [facility] Comment: Clinical correlation required for positive Urine Bilirubin results as false positive may occur with some drugs and drug related products. If a false positive is suspected a serum total bilirubin should be considered if clinically indicated. Urobilinogen, Urine Dipstick Normal Normal mg/dL [facility] pH, Urn (dipstick) 6.0 5.0 - 8.0 [facility] Blood, Urine Dipstick Negative Negative mg/dL [facility] Ketone, Urine Dipstick Negative Negative mg/dL [facility] Nitrite, Urine Dipstick Negative Negative [facility] Leukocytes, Urine Dipstick Negative Negative mcL [facility] Appearance, Urine Dipstick Clear Clear [facility] Specific [place] Urine Automated 1.010 1.002 - 1.030 [facility] Color, Urine Dipstick Straw Yellow [facility] Reflex to Culture No [facility] Urine specimen (specimen) Urine / Unknown 09/11/2018 9:37 AM EDT 09/11/2018 9:56 AM EDT Narrative Resulting Agency Comment Spec In Lab Diane Harris MD URINE ORDERABLES [facility] [place] [address] * (ABNORMAL) Rapid Drug Screen w/o Confirmation, Urine (09/11/2018 9:37 AM EDT) Barbiturates Screen, Urine None Detected None Detected [facility] Comment: The barbiturate screen detects barbiturates [...] Benzodiazepines Screen, Urine None Detected None Detected [facility] Comment: The benzodiazepines screen detects benzodiazepines [...] Cocaine Screen, Urine None Detected None Detected [facility] Comment: The cocaine metabolites screen detects benzoylecgonine (Cocaine Metabolite) at concentrations >150 ng/mL. A ? Presumptive Positive? result indicates that the screening result was positive but has not yet been confirmed by a highly-specific method. As with any screen, occasional false positive results from cross-reacting substances may occur. Not for Medico-Legal Purposes. Methadone Metabolites Screen, Urine Presumptive Pos(A) None Detected [facility] Comment: The methadone metabolite screen detects EDDP (major methadone metabolite) at concentrations >100 ng/mL. A ? Presumptive Positive? result indicates that the screening result was positive but has not yet been confirmed by a highly-specific method. As with any screen, occasional false positive results from cross-reacting substances may occur. Not for Medico-Legal Purposes. Opiate Screen, Urine None Detected None Detected [facility] Comment: The opiates screen detects opiates [...] Cannabinoid Screen, Urine None Detected None Detected [facility] Comment: The marijuana metabolites screen detects the THC metabolite (28-jna-0-carboxy-delta 9-THC) at concentrations >20 ng/mL. A ? Presumptive Positive? result indicates that the screening result was positive but has not yet been confirmed by a highly-specific method. As with any screen, occasional false positive results from cross-reacting substances may occur. Not for Medico-Legal Purposes. Oxycodone Screen, Urine None Detected None Detected [facility] Comment: The oxycodone screen detects oxycodone and oxymorphone at concentrations >100 ng/mL. A ? Presumptive Positive? result indicates that the screening result was positive but has not yet been confirmed by a highly-specific method. As with any screen, occasional false positive results from cross-reacting substances may occur. Not for Medico-Legal Purposes. Buprenorphine Screen, Urine None Detected None Detected [facility] Comment: The buprenorphine screen detects buprenorphine at concentrations >5 ng/mL. A ? Presumptive Positive? result indicates that the screening result was positive but has not yet been confirmed by a highly-specific method. As with any screen, occasional false positive results from cross-reacting substances may occur. Not for Medico-Legal Purposes. Fentanyl Screen, Urine None Detected None Detected [facility] Comment: The fentanyl screen detects fentanyl at concentrations >2 ng/mL. A ? Presumptive Positive? result indicates that the screening result was positive but has not yet been confirmed by a highly-specific method. As with any screen, occasional false positive results from cross-reacting substances may occur. Not for Medico-Legal Purposes. Tricyclics Screen, Urine None Detected None Detected [facility] Comment: The tricyclics screen detects tricyclic [...] Ethanol Screen, Urine None Detected None Detected [facility] Comment:This urine ethanol a ssay detects ethanol at concentrations >/= 100 mg/L. Amphetamines Screen, Urine None Detected None Detected [facility] Comment: The amphetamine screen detects d-amphetamine and d-methamphetamine at concentrations >300 ng/mL. A ? Presumptive Positive? result indicates that the screening result was positive but has not yet been confirmed by a highly-specific method. As with any screen, occasional false positive results from cross-reacting substances may occur. Not for Medico-Legal Purposes. Adulterants Screen, Urine None Detected None Detected [facility] Comment: No adulteration or dilution of this urine sample was detected. All urine samples submitted for urine drugs of abuse analysis are tested for creatinine concentration, pH, and for the presence of oxidants, nitrites, and chromate. Urine specimen (specimen) 09/11/2018 9:37 AM EDT 09/11/2018 9:54 AM EDT Narrative Resulting Agency Comment Spec In Lab Diane Harris MD CHEMISTRY ORDERABLES Performing Organization Address [facility] de Phone Number [facility] [place] [address] * Rapid Drug Screen, Urine (CAM Request) (09/11/2018 9:37 AM EDT) CAM Conf Requested No [facility] CAM Requested See Comment [facility] Comment:Refer to Rapid Drug Screen w/o Confirmation, Urine for results. Urine specimen (specimen) 09/11/2018 9:37 AM EDT 09/11/2018 9:54 AM EDT Narrative Resulting Agency Comment Spec In Lab Meagan Garza MD URINE ORDERABLES Performing Organization Address [facility]/ZIP Co de Phone Number [facility] [place] [address] * Silica Clotting Time (09/11/2018 9:30 AM EDT) Pathologist [facility] Silica Clotting Time 0.88 <=1.16 ratio [facility] Comment: A result greater than 1.16 [...] MD HEMATOLOGY ORDERABLE S Performing Organization Address [facility] de Phone Number [facility] [place] [address] * dRVVT (09/11/2018 9:30 AM EDT) [facility] dRVVT 0.85 <=1.20 IU/mL [facility] Comment: A result greater than 1.20 [...] MD HEMATOLOGY ORDERABLE S Performing Organization Address [facility] Co de Phone Number [facility] [place] [address] * Beta-2 glycoprotein antibodies (09/11/2018 9:30 AM EDT) Beta 2 Glycoprotein, IgG <9.4 <=20.0 unit(s) [facility] Beta 2 Glycoprotein, IgM <9.4 <=20.0 unit(s) [facility] B2GPI Interp No comment [facility] Blood specimen (specimen) 09/11/2018 9:30 AM EDT 09/11/2018 1:11 PM EDT Narrative Resulting Agency Comment Spec In Lab Meagan Garza MD IMMUNOLOGY ORDERAB LES Performing Organization Address [facility] Co de Phone Number [facility] [place] [address] * Protein S Activity (09/11/2018 9:30 AM EDT) Protein S Act 77 64 - 149 % activity [facility] Blood specimen (specimen) 09/11/2018 9:30 AM EDT 09/11/2018 9:37 AM EDT Narrative Resulting Agency Comment Spec In Lab Meagan Garza MD HEMATOLOGY ORDERAB LES Performing Organization Address [facility]/ZIP Co de Phone Number [facility] [place] [address] * Protein C activity (09/11/2018 9:30 AM EDT) Protein C Activity 104 70 - 140 % [facility] Blood specimen (specimen) 09/11/2018 9:30 AM EDT 09/11/2018 9:37 AM EDT Narrative Resulting Agency Comment Spec In Lab Meagan Garza MD HEMATOLOGY ORDERAB LES Performing Organization Address City/[facility]/ZIP Co de Phone Number [facility] [place] [address] * (ABNORMAL) Cardiolipin Antibody Screen (09/11/2018 9:30 AM EDT) Cardiolipin Antibody IgG <9.4 <=14.9 GPL unit(s) [facility] Comment: Ranges ?? GPL ------ ?? --- Negative ?? <=14.9 Indeterminate ??15.0 - 20.0 Low/Medium Positive 20.1 - 80.0 High Positive ??>80.0 Cardiolipin Antibody IgM 16.0(H) <=12.5 MPL unit(s) [facility] Comment: Ranges ?? MPL ------ ?? --- Negative ?? <=12.5 Indeterminate ??12.6 - 20.0 Low/Medium Positive 20.1 - 80.0 High Positive ??>80.0 Blood specimen (specimen) 09/11/2018 9:30 AM EDT 09/11/2018 1:11 PM EDT Narrative Resulting Agency Comment Spec In Lab Meagan Garza MD IMMUNOLOGY ORDERAB LES Performing Organization Address City/[facility]/ZIP Co de Phone Number [facility] [place] [address] * (ABNORMAL) Sedimentation rate (09/11/2018 5:45 AM EDT) [facility] Sedimentation Rate Automated 25(H) 0 - 20 mm/hr [facility] Blood specimen (specimen) 09/11/2018 5:45 AM EDT 09/11/2018 6:13 AM EDT Narrative Resulting Agency Comment Spec In Lab Meagan Garza MD HEMATOLOGY ORDERAB LES [facility] [place] [address] * CRP, acute inflammation (09/11/2018 5:45 AM EDT) C-Reactive Protein 4.5 <=4.9 mg/L [facility] Blood specimen (specimen) 09/11/2018 5:45 AM EDT 09/11/2018 6:13 AM EDT Narrative Resulting Agency Comment Spec In Lab Meagan Garza MD CHEMISTRY ORDERABL ES [facility] [place] [address] * MRI Cardiac Morph Func wwo Contrast [...] were no resting perfusion defects present. TI Relaster: TI Relaster demonstrates normal nulling patterns. Delayed enhancement: Delayed [...] There were noresting perfusion defects present. TI Relaster: TI Relaster demonstrates normal nulling patterns. Delayed enhancement: Delayed [...] contact the number below. Yang Branham MD [facility] MRI ORDERABLES * Hepatitis C RNA, quantitative, PCR (09/10/2018 11:33 AM EDT) HCV Viral Load 139,106 IU/mL [facility] HCV Viral Load Result: [id number] IU/mL Indication for Study: Hepatitis C Infection Analysis: The [employer] RealTime HCV assay is an in vitro reverse whiskey filterer polymerase chain reaction (RT-PCR)for the quantitation of hepatitis C viral (HCV) RNA in human serum or plasma (EDTA) from HCV-infected individuals. Sample: plasma (0.7 mL minimum volume) Method: [employer] RealTime HCV Assay Linear Range: 12 IU/mL - 100,000,000IU/mL Note: The [employer] RealTime HCV Assay has been approved by the U.S. Food and Drug Administration. [facility] Comment: [VERIFIED DATE]09.19.18 Verified By:Keri Warren (Electronic Signature) Blood specimen (specimen) 09/10/2018 11:33 AM EDT 09/18/2018 11:41 AM EDT Narrative Resulting Agency Comment Spec In Lab Meagan Garza MD MOLECULAR ORDERABL ES [facility] [place] [address] * XR Chest PA or AP 1 view (09/08/2018 1:28 PM EDT) Anatomical Region Laterality Modality Chest N/A Digital Radiogra phy Impressions 09/08/2018 1:35 PM EDT No acute lung disease Thank you for letting us participate in the care of this patient. For questions regarding this report, please contact the number below. ? Narrative 09/08/2018 1:35 PM EDT EXAMINATION: XR [...] the number below. Meagan Garza MD IMG DX ORDERABLES * HIV Screen, 4th Generation (Leb/CGP) (09/08/2018 6:46 AM EDT) HIV Ab/Ag Screen Negative Negative [facility] Comment: This 4th Generation HIV test [...] MD CHEMISTRY ORDERABL ES Performing Organization Address City/[facility]/ZIP Co de Phone Number [facility] [place] [address] * (ABNORMAL) Hepatitis C Antibody (09/08/2018 6:46 AM EDT) Hepatitis C Antibody Positive(A ) Negative [facility] Blood specimen (specimen) 09/08/2018 6:46 AM EDT 09/08/2018 6:56 AM EDT Narrative Resulting Agency Comment Spec In Lab Meagan Garza MD CHEMISTRY ORDERABL ES [facility] [place] [address] * Hepatitis B Core Antibody, Total (09/08/2018 6:46 AM EDT) Hepatitis B Core Antibody Negative Negative [facility] Blood specimen (specimen) 09/08/2018 6:46 AM EDT 09/08/2018 6:56 AM EDT Narrative Resulting Agency Comment Spec In Lab Meagan Garza MD CHEMISTRY ORDERABL ES Performing Organization Address [facility] Co de Phone Number [facility] [place] [address] * Hepatitis B Surface Antibody (09/08/2018 6:46 AM EDT) Hepatitis B Surface Antibody, Quantitative <3.5 IU/L [facility] Comment: HepB Surface Ab Quant: Unvaccinated: < 8.5 IU/L Vaccinated: > 11.5 IU/L Hepatitis B Surface Antibody Negative [facility] Comment: Patient is presumed to be not vaccinated or immune to HBV infection. Expected Results: Vaccinated: Positive Unvaccinated: Negative Blood specimen (specimen) 09/08/2018 6:46 AM EDT 09/08/2018 6:56 AM EDT Narrative Resulting Agency Comment Spec In Lab Meagan Garza MD CHEMISTRY ORDERABL ES Performing Organization Address [facility] Co de Phone Number [facility] [place] [address] * Hepatitis B Surface Antigen (09/08/2018 6:46 AM EDT) Hepatitis B Surface Antigen Negative Negative [facility] Blood specimen (specimen) 09/08/2018 6:46 AM EDT 09/08/2018 6:56 AM EDT Narrative Resulting Agency Comment Spec In Lab Meagan Garza MD CHEMISTRY ORDERABL ES Performing Organization Address [facility] Co de Phone Number [facility] [place] [address] * (ABNORMAL) Hepatitis A Antibody, Total (09/08/2018 6:46 AM EDT) Hepatitis A ANTIBODY, TOTAL Indetermin ate(A) Negative [facility] Blood specimen (specimen) 09/08/2018 6:46 AM EDT 09/08/2018 6:56 AM EDT Narrative Resulting Agency Comment Spec In Lab Meagan Garza MD CHEMISTRY ORDERABL ES Performing Organization Address [facility] Co de Phone Number [facility] [place] [address] * (ABNORMAL) Vitamin D, 25-Hydroxy (09/08/2018 6:46 AM EDT) Vitamin D Total 25 OH 26(L) 30 - 100 ng/mL [facility] Comment: Deficient <10 ng/mL Insufficient 10 to 29 ng/mL Sufficient 30 to 100 ng/mL Potential Intoxication >100 ng/mL According to the [place] National Osteoporosis Foundation, Vitamin D concentrations >30 ng/mL are sufficient to protect bone health. ??The National Kidney Foundation has similarly stated that patients with Vitamin D concentrations <30ng/mL should be considered to be insufficient or deficient. http://Shopcaster/nkf-guidelines http://Shopcaster/nejm-VitD The IDS iSYS Vitamin D Immunoassay detects both 25-OH Vitamin D2 and 25-OH Vitamin D3, but only a total Vitamin D concentration is reported. Blood specimen (specimen) 09/08/2018 6:46 AM EDT 09/10/2018 8:27 AM EDT Narrative Resulting Agency Comment Spec In Lab Meagan Garza MD CHEMISTRY ORDERABL ES Performing Organization Address [facility] Co de Phone Number [facility] [place] [address] * (ABNORMAL) Iron and TIBC (09/08/2018 6:46 AM EDT) Iron 37 30 - 150 mcg/dL [facility] TIBC 327 250 - 450 mcg/dL [facility] Iron Saturation 11(L) 20 - 50 % [facility] Blood specimen (specimen) 09/08/2018 6:46 AM EDT 09/08/2018 6:56 AM EDT Narrative Resulting Agency Comment Spec In Lab Meagan Garza MD CHEMISTRY ORDERABL ES Performing Organization Address [facility]/ZIP Co de Phone Number [facility] [place] [address] * Ferritin (09/08/2018 6:46 AM EDT) Ferritin 38 15 - 150 ng/mL [facility] Comment: Pediatric reference ranges not verified at [facility], interpret with caution. Reference ranges for females greater than 50 years of age approach values for men, i.e., 30-400 ng/mL. Blood specimen (specimen) 09/08/2018 6:46 AM EDT 09/08/2018 6:56 AM EDT Narrative Resulting Agency Comment Spec In Lab Meagan Garza MD CHEMISTRY ORDERABL ES Performing Organization Address [facility] Co de Phone Number [facility] [place] [address] * Folate, serum (09/08/2018 6:46 AM EDT) Folate 13.3 4.8 - 24.2 ng/mL [facility] Blood specimen (specimen) 09/08/2018 6:46 AM EDT 09/08/2018 6:56 AM EDT Narrative Resulting Agency Comment Spec In Lab Meagan Garza MD CHEMISTRY ORDERABL ES Performing Organization Address [facility]/ZIP Co de Phone Number [facility] [place] [address] * Vitamin B12 (09/08/2018 6:46 AM EDT) Vitamin B12 983 232 - 1,245 pg/mL [facility] Blood specimen (specimen) 09/08/2018 6:46 AM EDT 09/08/2018 6:56 AM EDT Narrative Resulting Agency Comment Spec In Lab Meagan Garza MD CHEMISTRY ORDERABL ES Performing Organization Address City/[facility]/ZIP Co de Phone Number [facility] [place] [address] * TSH (09/08/2018 6:46 AM EDT) Thyroid Stimulating Hormone 1.04 0.27 - 4.20 mcIU/mL [facility] Blood specimen (specimen) 09/08/2018 6:46 AM EDT 09/08/2018 6:56 AM EDT Narrative Resulting Agency Comment Spec In Lab Meagan Garza MD CHEMISTRY ORDERABL ES Performing Organization Address [facility] Co de Phone Number [facility] [place] [address] * EKG 12 Lead (09/08/2018 6:15 AM EDT) Ventricular rate 57 BPM MUSE SYSTEM Atrial Rate 57 BPM MUSE SYSTEM P-R Interval 170 ms MUSE SYSTEM QRS Duration 106 ms MUSE SYSTEM Q-T Interval 438 ms MUSE SYSTEM QTC Calculated (Bezet) 426 ms MUSE SYSTEM Calculated P [place] 31 degrees MUSE SYSTEM Calculated R [place] -9 degrees MUSE SYSTEM Calculated T [place] 21 degrees MUSE SYSTEM INTERPRETATION Sinus bradycardia Otherwise normal ECG When compared with ECG of 07-SEP-2018 12:35, No significant change was found Confirmed by MD GODWIN, LE ([id number]) on 09/08/2018 2:29:44 PM MUSE SYSTEM 09/08/2018 6:15 AM EDT 09/08/2018 2:29 PM EDT Meagan Garza MD ECG ORDERABLES Performing Organization Address [facility] Co de Phone Number MUSE SYSTEM * Duplex Study for DVT, Bilat legs (09/07/2018 3:59 PM EDT) VB Text Report Department: Vascular Surgery Lab Patient: [id number] (SAVANNAH MOORE) CPT: 40896 ICD10: I63.9 Referring Physician: MEAGAN GARZA ?? Indications: 27 y/o female with [...] MD VASCULAR ORDERABLE S Performing Organization Address [facility] Co de Phone Number VASCUBASE * EKG 12 Lead (09/07/2018 12:35 PM EDT) Ventricular rate 74 BPM MUSE SYSTEM Atrial Rate 74 BPM MUSE SYSTEM P-R Interval 148 ms MUSE SYSTEM QRS Duration 106 ms MUSE SYSTEM Q-T Interval 404 ms MUSE SYSTEM QTC Calculated (Bezet) 448 ms MUSE SYSTEM Calculated P [place] 31 degrees MUSE SYSTEM Calculated R [place] -11 degrees MUSE SYSTEM Calculated T [place] 25 degrees MUSE SYSTEM INTERPRETATION Normal sinus rhythm Incomplete right bundle branch block Borderline ECG When compared with ECG of 13-JAN-2015 07:43, Nonspecific T wave abnormality no longer evident in Anterior leads Confirmed by MD IVON, SHEA ([id number]) on 09/07/2018 3:09:39 PM MUSE SYSTEM 09/07/2018 12:3 5 PM EDT 09/07/2018 3:09 PM EDT eMagan Garza MD ECG ORDERABLES Performing Organization Address [facility]/ZIP Co de Phone Number MUSE SYSTEM * (ABNORMAL) Differential, Automated (09/07/2018 7:44 AM EDT) Neutrophil % 49.5 % [facility] Neutrophil Absolute 4.09 1.70 - 6.10 x10(3)/[facility] Lymph % 39.7 % [facility] Lymphocytes Abs 3.3(H) 0.9 - 3.2 x10(3)/[facility] Monocyte % 6.1 % [facility] Monocyte Abs 0.5 0.3 - 0.9 x10(3)/[facility] Eos % 2.7 % [facility] Eosinophils Abs 0.2 0.0 - 0.4 x10(3)/[facility] Basophil % 0.5 % [facility] Baso Absolute 0.0 0.0 - 0.1 x10(3)/[facility] Immature Gran % 1.50 % [facility] Comment: Immature granulocytes(IG's)percentage and absolute count will include metamyelocytes, myelocytes, and promyelocytes. Blood smears from CBCs yielding IG's will be scanned manually for concordance. If this scan disagrees with the automated IG or if promyelocytes are noted, a manual differential will be performed. Immature Gran Absolute 0.12(H) 0.00 - 0.04 x10(3)/[facility] Blood specimen (specimen) 09/07/2018 7:44 AM EDT 09/07/2018 8:15 AM EDT Narrative Resulting Agency Comment Spec In Lab Diane Harris MD HEMATOLOGY ORDERABLE S [facility] [place] [address] * (ABNORMAL) Hemogram (09/07/2018 7:44 AM EDT) White Blood Cell 8.2 4.0 - 9.5 x10(3)/[facility] Red Blood Cell 3.62(L) 4.00 - 5.21 x10(6)/ L [facility] Hemoglobin 11.0(L) 11.7 - 15.5 gm/dL [facility] Hematocrit 34.0(L) 35.7 - 45.8 % [facility] Mean Cell Volume 93.9 82.6 - 94.4 fL [facility] Mean Cell Hemoglobin 30.4 27.1 - 32.0 pg [facility] Mean Cell Hemoglobin Concentration 32.4 31.7 - 35.0 gm/dL [facility] Platelet 226 145 - 357 x10(3)/[facility] RDW Standard Deviation 44.3 37.0 - 46.0 [facility] RDW coefficient of variation 12.9 11.5 - 14.1 % [facility] Mean Platelet Volume 10.7 7.6 - 12.9 [facility] NRBC% auto 0.0 % [facility] NRBC Absolute 0.000 0.000 - 0.000 x10(3)/[facility] Blood specimen (specimen) 09/07/2018 7:44 AM EDT 09/07/2018 8:15 AM EDT Narrative Resulting Agency Comment Spec In Lab Diane Harris MD HEMATOLOGY ORDERABLE S [facility] [place] [address] * Basic Metabolic Panel (non-fasting) (09/07/2018 7:44 AM EDT) Glucose 75 65 - 199 mg/dL [facility] Comment:Diabetes: >=200 mg/d L plus symptoms Blood Urea Nitrogen 17 8 - 18 mg/dL [facility] Creatinine 0.77 0.70 - 1.20 mg/dL [facility] Sodium 141 135 - 145 mmol/L [facility] Potassium 4.1 3.5 - 5.0 mmol/L [facility] Comment: Please note: ??Patients with WBC >100,000 may have falsely elevated Potassium levels. ??For accurate Potassium quantification in these patients send serum separator tube (gold top) for subsequent determinations. ??Contact the Clinical Chemistry Laboratory if there are any questions. Chloride 104 98 - 107 mmol/L [facility] Carbon Dioxide 28 22 - 31 mmol/L [facility] Anion Gap 9 5 - 15 mmol/L [facility] Calcium 8.5 8.5 - 10.5 mg/dL [facility] Est Glomerular Filtration Rate 105 >=60 mL/min/1. 73 m?? [facility] Comment: The eGFR was calculated using the CKD-EPI equation. As with all creatinine based estimates of kidney function, eGFR values calculated with the CKD-EPI equation are not accurate in patients with acute kidney failure, extremes of body mass or the acutely ill. http://Shopcaster/DHMCnkf eGFR 122 >=60 mL/min/1. 73 m?? [facility] Comment: The eGFR was calculated using the CKD-EPI equation. As with all creatinine based estimates of kidney function, eGFR values calculated with the CKD-EPI equation are not accurate in patients with acute kidney failure, extremes of body mass or the acutely ill. http://Shopcaster/DHMCnkf Blood specimen (specimen) 09/07/2018 7:44 AM EDT 09/07/2018 8:15 AM EDT Narrative Resulting Agency Comment Spec In Lab Meagan Garza MD CHEMISTRY ORDERABL ES [facility] [place] [address] * (ABNORMAL) Hepatic Function Panel (09/07/2018 7:44 AM EDT) Protein, Total 6.3 6.1 - 8.0 gm/dL [facility] Albumin 3.1(L) 3.2 - 5.2 gm/dL [facility] Aspartate Aminotransferase 25 0 - 30 unit/L [facility] Alanine Aminotransferase 33(H) 0 - 30 unit/L [facility] Alkaline Phosphatase 99 40 - 104 unit/L [facility] Bilirubin, Total <0.2(L) 0.2 - 1.3 mg/dL [facility] Bilirubin, Direct 0.1 0.0 - 0.3 mg/dL [facility] Blood specimen (specimen) 09/07/2018 7:44 AM EDT 09/07/2018 8:15 AM EDT Narrative Resulting Agency Comment Spec In Lab Meagan Garza MD CHEMISTRY ORDERABL ES Performing Organization Address [facility] de Phone Number [facility] [place] [address] * (ABNORMAL) Phosphorus (09/07/2018 7:44 AM EDT) Phosphorus 4.6(H) 2.5 - 4.5 mg/dL [facility] Blood specimen (specimen) 09/07/2018 7:44 AM EDT 09/07/2018 8:15 AM EDT Narrative Resulting Agency Comment Spec In Lab Meagan Garza MD CHEMISTRY ORDERABL ES Performing Organization Address [facility] Co de Phone Number [facility] [place] [address] * Magnesium (09/07/2018 7:44 AM EDT) Magnesium 0.73 0.69 - 1.07 mmol/L [facility] Blood specimen (specimen) 09/07/2018 7:44 AM EDT 09/07/2018 8:15 AM EDT Narrative Resulting Agency Comment Spec In Lab Meagan Garza MD CHEMISTRY ORDERABL ES [facility] [place] [address] * CT Venogram of Brain (09/06/2018 8:08 [...] below. ? Electronically signed by: BRITTANI Reddy [facility] ([phone]), at 09/06/2018 8:45 PM Narrative 09/06/2018 8:45 PM EDT EXAMINATION: CT ANGIOGRAM [place], CT VENOGRAM OF BRAIN CLINICAL HISTORY: hx prior aneurysm coiling, new onset infarcts. concern for coil thrombosis vs CVT TECHNIQUE: CT angiogram of the [place] and CT venogram head were performed after the intravenous administration of 65 cc Omnipaque 350, MIP reconstructions were reviewed after being processed on an independent workstation COMPARISON: MRI brain and MRA [place] 09/04/2018 FINDINGS: CTA head: There [...] John MD - 09/06/2018 EXAMINATION: CT ANGIOGRAM [place], CT VENOGRAM OF BRAIN CLINICAL HISTORY: hx prior aneurysm coiling, new onset infarcts. concernfor coil thrombosis vs CVT TECHNIQUE: CT angiogram of [place] and CT venogram headwere performed after the intravenous administration of 65 cc Omnipaque 350,MIP reconstructions were reviewed after being processed on an independent workstation COMPARISON: MRI brain and MRA [place] 09/04/2018 FINDINGS: CTA head: There [...] MD IMG CT ORDERABLES * CT Angiogram [place] (09/06/2018 8:08 PM EDT) Anatomical [...] 09/06/2018 8:45 PM EDT EXAMINATION: CT ANGIOGRAM [place], CT VENOGRAM OF BRAIN CLINICAL HISTORY: hx prior aneurysm coiling, new onset infarcts. concern for coil thrombosis vs CVT TECHNIQUE: CT angiogram of [place] and CT venogram head were performed after the intravenous administration of 65 cc Omnipaque 350, MIP reconstructions were reviewed after being processed on an independent workstation COMPARISON: MRI brain and MRA [place] 09/04/2018 FINDINGS: CTA head: There [...] John MD - 09/06/2018 EXAMINATION: CT ANGIOGRAM [place], CT VENOGRAM OF BRAIN CLINICAL HISTORY: hx prior aneurysm coiling, new onset infarcts. concernfor coil thrombosis vs CVT TECHNIQUE: CT angiogram of [place] and CT venogram headwere performed after the intravenous administration of 65 cc Omnipaque 350,MIP reconstructions were reviewed after being processed on an independent workstation COMPARISON: MRI brain and MRA [place] 09/04/2018 FINDINGS: CTA head: There [...] COMPLETE W CONTRAST (09/06/2018 1:31 PM EDT) [facility] 45 HEARTLAB SYSTEM Anatomical Region Laterality Modality Other 09/06/2018 Narrative 09/06/2018 2:31 PM EDT Procedure: ?Transthoracic Echocardiogram Patient: ?TERESA Augustin ? (Age): 1990(27y) Med Rec#: ? [id number] ?Sex: ?F ? Site Loc: ? [facility] ?Ht / Wt: ??157(cm)/107(kg) Pt. Loc: ?Adult Floor ? BSA: ?2.05 Study Date: ?? 09/06/2018 ?Pt. Type: Inpatient Tape: ? Referring: LM Referring: Meagan Garza Reading: Joseph Moncada ([id number]) Iron Miner: Laureano Rodgers Diagnosis: *Cerebral infarction, unspecified (I63.9) [...] E-wave Vmax ?1.1 ?m/sec ? MV deceleration rcgt296.7 ?msec ? MV A-wave Vmax ?0.7 ?m/sec [...] ? Pulmonic Valve/Qp:Qs ?Value ?Units (Range) ? MS end-diastolic Vma1.4 ?m/sec ? PA end-diastolic pre11 ? mmHg ? Wall Motion: Segment Name ?Rest ? Base-Anteroseptal ?? Hypokinetic ? Base-Anterior ? Hypokinetic ? Base-Anterolateral ??Hypokinetic ? Base-Posterolateral Hypokinetic ? Base-Inferior ? Hypokinetic ? Base-Inferoseptal ?? Hypokinetic ? Mid-Anteroseptal ?Hypokinetic ? Mid-Anterior ?Hypokinetic ? Mid-Anterolateral ?? Hypokinetic ? Mid-Posterolateral ??Hypokinetic ? Mid-Inferior ?Hypokinetic ? Mid-Inferoseptal ?Hypokinetic ? Superior-Septal ? Hypokinetic ? Superior-Anterior ? Hypokinetic ? Superior-Lateral ?Hypokinetic ? Superior-Inferior ? Hypokinetic ? Superior-Tip ?Hypokinetic ? This report has been electronically signed by: Joseph Moncada MD ? 09/06/2018 14:30:44 Images reviewed and interpretation verified [facility] Procedure Note Joseph Moncada MD - 09/06/2018 Procedure: Transthoracic Echocardiogram Patient: TERESA Augustin (Age): 1990(27y) Med Rec#: [id number] Sex: F Site Loc: [facility] Ht / Wt: 157(cm)/107(kg) Pt. Loc: Adult Floor BSA: 2.05 Study Date: 09/06/2018 Pt. Type: Inpatient Tape: Referring: LM Referring: Meagan Garza Reading: Joseph Moncada ([id number]) Iron Miner: Laureano Rodgers Diagnosis: *Cerebral infarction, unspecified (I63.9) [...] MV E-wave Vmax 1.1 m/sec MV deceleration [id number] msec MV A-wave Vmax 0.7 m/sec MV [...] 21.3 mmHg Pulmonic Valve/Qp:Qs Value Units (Range) MS end-diastolic Vma1.4 m/sec PA end-diastolic pre11 mmHg Wall Motion: Segment Name Rest Base-Anteroseptal Hypokinetic Base-Anterior Hypokinetic Base-Anterolateral Hypokinetic Base-Posterolateral Hypokinetic Base-Inferior Hypokinetic Base-Inferoseptal Hypokinetic Mid-Anteroseptal Hypokinetic Mid-Anterior Hypokinetic Mid-Anterolateral Hypokinetic Mid-Posterolateral Hypokinetic Mid-Inferior Hypokinetic Mid-Inferoseptal Hypokinetic Superior-Septal Hypokinetic Superior-Anterior Hypokinetic Superior-Lateral Hypokinetic Superior-Inferior Hypokinetic Superior-Tip Hypokinetic This report has been electronically signed by: Joseph Moncada MD 09/06/2018 14:30:44 Images reviewed and interpretation verified [facility] Meagan Garza MD ECHO ORDERABLES * Lipid Panel (09/06/2018 10:02 AM EDT) Cholesterol, Total 130 mg/dL [facility] Comment: Lower Risk: <200 mg/dL Average Risk: 200-239 mg/dL Higher Risk: >wc=960 mg/dL Triglyceride 173 mg/dL [facility] Comment: Average Risk/Lower Risk: <150 mg/dL Borderline High Risk: 150-199 mg/dL High Risk: 200-499 mg/dL Very High Risk: >ew=109 mg/dL HDL Cholesterol 36 mg/dL [facility] Comment: Males: ?? Higher Risk: <40 mg/dL Females: ?? HIgher Risk: <50 mg/dL LDL Cholesterol 59 mg/dL [facility] Comment: Lowest Risk: <100 mg/dL Lower Risk: 100-129 mg/dL Borderline High Risk: 130-159 mg/dL High Risk: 160-189 mg/dL Very High Risk: >iq=891 mg/dL Cholesterol/HDL Ratio 3.6 ratio [facility] Lipid Interpretation See Note [facility] Comment: Lipid management should be guided by a patient? s ASCVD risk, goals and preferences. ACC/AHA Guidelines recommend high intensity statin if clinical ASCVD or LDL greater than or equal to 190 mg/dL. http://[employer]ronic [employer].com/AWB-NIP-Jferouzun Adults aged 40-75 with LDL 70-189 mg/dL should have their 10 year ASCVD risk estimated with the ACC/AHA ASCVD risk hvac estimator http://tools.acc.org/WZIDC-Qtsa-Kkjuubmvw/ Statin should be discussed if risk greater [...] Lab Meagan Garza MD CHEMISTRY ORDERABL ES [facility] [place] [address] * (ABNORMAL) BMP w/fasting Glucose (09/06/2018 10:01 AM EDT) Glucose Fasting 108(H) 65 - 99 mg/dL [facility] Comment: ?Fasting* Glucose Interpretive Criteria Normal [...] of Diabetes Mellitus, Position Statement from the [place] [employer]. ??Diabetes Care, Volume 33, Supplement 1, Apr 2009 Blood Urea Nitrogen 23(H) 8 - 18 mg/dL [facility] Creatinine 0.77 0.70 - 1.20 mg/dL [facility] Sodium 142 135 - 145 mmol/L [facility] Potassium 4.1 3.5 - 5.0 mmol/L [facility] Comment: Please note: ??Patients with WBC >100,000 may have falsely elevated Potassium levels. ??For accurate Potassium quantification in these patients send serum separator tube (gold top) for subsequent determinations. ??Contact the Clinical Chemistry Laboratory if there are any questions. Chloride 106 98 - 107 mmol/L [facility] Carbon Dioxide 26 22 - 31 mmol/L [facility] Anion Gap 10 5 - 15 mmol/L [facility] Calcium 8.9 8.5 - 10.5 mg/dL [facility] Est Glomerular Filtration Rate 105 >=60 mL/min/1. 73 m?? [facility] Comment: The eGFR was calculated using the CKD-EPI equation. As with all creatinine based estimates of kidney function, eGFR values calculated with the CKD-EPI equation are not accurate in patients with acute kidney failure, extremes of body mass or the acutely ill. [email or web address] eGFR 122 >=60 mL/min/1. 73 m?? [facility] Comment: The eGFR was calculated using the CKD-EPI equation. As with all creatinine based estimates of kidney function, eGFR values calculated with the CKD-EPI equation are not accurate in patients with acute kidney failure, extremes of body mass or the acutely ill. [email or web address] Blood specimen (specimen) 09/06/2018 10:01 AM EDT 09/06/2018 11:07 AM EDT Narrative Resulting Agency Comment Spec In Lab Diane Harris MD CHEMISTRY ORDERABLES [facility] [place] [address] * (ABNORMAL) Differential, Automated (09/06/2018 10:01 AM EDT) Neutrophil % 53.0 % [facility] Neutrophil Absolute 4.93 1.70 - 6.10 x10(3)/ L [facility] Lymph % 38.7 % [facility] Lymphocytes Abs 3.6(H) 0.9 - 3.2 x10(3)/ L [facility] Monocyte % 6.1 % [facility] Monocyte Abs 0.6 0.3 - 0.9 x10(3)/[facility] Eos % 1.3 % [facility] Eosinophils Abs 0.1 0.0 - 0.4 x10(3)/[facility] Basophil % 0.3 % [facility] Baso Absolute 0.0 0.0 - 0.1 x10(3)/[facility] Immature Gran % 0.60 % [facility] Comment: Immature granulocytes(IG's)percentage and absolute count will include metamyelocytes, myelocytes, and promyelocytes. Blood smears from CBCs yielding IG's will be scanned manually for concordance. If this scan disagrees with the automated IG or if promyelocytes are noted, a manual differential will be performed. Immature Gran Absolute 0.06(H) 0.00 - 0.04 x10(3)/ L [facility] Blood specimen (specimen) 09/06/2018 10:01 AM EDT 09/06/2018 11:07 AM EDT Narrative Resulting Agency Comment Spec In Lab Diane Harris MD HEMATOLOGY ORDERABLE S [facility] [place] [address] * (ABNORMAL) Hemogram (09/06/2018 10:01 AM EDT) Pathologist [facility] White Blood Cell 9.3 4.0 - 9.5 x10(3)/mc L [facility] Red Blood Cell 3.43(L) 4.00 - 5.21 x10(6)/[facility] Hemoglobin 10.3(L) 11.7 - 15.5 gm/dL [facility] Hematocrit 32.4(L) 35.7 - 45.8 % [facility] Mean Cell Volume 94.5(H) 82.6 - 94.4 fL [facility] Mean Cell Hemoglobin 30.0 27.1 - 32.0 pg [facility] Mean Cell Hemoglobin Concentration 31.8 31.7 - 35.0 gm/dL [facility] Platelet 192 145 - 357 x10(3)/[facility] RDW Standard Deviation 45.6 37.0 - 46.0 [facility] RDW coefficient of variation 13.2 11.5 - 14.1 % [facility] Mean Platelet Volume 11.1 7.6 - 12.9 [facility] NRBC% auto 0.0 % [facility] NRBC Absolute 0.000 0.000 - 0.000 x10(3)/[facility] Blood specimen (specimen) 09/06/2018 10:01 AM EDT 09/06/2018 11:07 AM EDT Narrative Resulting Agency Comment Spec In Lab Diane Harris MD HEMATOLOGY ORDERABLE S [facility] [place] [address] * Triglyceride (09/06/2018 10:01 AM EDT) Triglyceride 171 mg/dL [facility] Comment: Average Risk/Lower Risk: <150 mg/dL Borderline High Risk: 150-199 mg/dL High Risk: 200-499 mg/dL Very High Risk: >tg=733 mg/dL Blood specimen (specimen) 09/06/2018 10:01 AM EDT 09/06/2018 11:07 AM EDT Narrative Resulting Agency Comment Spec In Lab Meagan Garza MD CHEMISTRY ORDERABL ES Performing Organization Address City/[facility]/ZIP Co de Phone Number [facility] [place] [address] * HDL/Cholesterol Profile (09/06/2018 10:01 AM EDT) Cholesterol, Total 129 mg/dL [facility] Comment: Lower Risk: <200 mg/dL Average Risk: 200-239 mg/dL Higher Risk: >rc=325 mg/dL HDL Cholesterol 37 mg/dL [facility] Comment: Males: ?? Higher Risk: <40 mg/dL Females: ?? HIgher Risk: <50 mg/dL Cholesterol/HDL Ratio 3.5 ratio [facility] Chol/HDL Interpretation See Note [facility] Comment: Lipid management should be guided by a patient? s ASCVD risk, goals and preferences. ACC/AHA Guidelines recommend high intensity statin if clinical ASCVD or LDL greater than or equal to 190 mg/dL. http://[email or web address]/OWX-TPW-Zwbjwfpgy Measure LDL if Total Cholesterol minus HDL Cholesterol is greater than 220 mg/dL. Adults aged 40-75 with LDL 70-189 mg/dL should have their 10 year ASCVD risk estimated with the ACC/AHA ASCVD risk hvac estimator http://tools.acc.org/XMIGL-Ineh-Blfueaegm/ Statin should be discussed if risk greater [...] Lab Meagan Garza MD CHEMISTRY ORDERABL ES [facility] [place] [address] * LDL Cholesterol, Direct (09/06/2018 10:01 AM EDT) LDL Cholesterol, Direct 70 mg/dL [facility] Comment: Lowest Risk: <100 mg/dL Lower Risk: 100-129 mg/dL Borderline High Risk: 130-159 mg/dL High Risk: 160-189 mg/dL Very High Risk: >vy=821 mg/dL Blood specimen (specimen) 09/06/2018 10:01 AM EDT 09/06/2018 11:07 AM EDT Narrative Resulting Agency Comment Spec In Lab Meagan Garza MD CHEMISTRY ORDERABL ES [facility] [place] [address] * Hemoglobin A1c (09/06/2018 10:01 AM EDT) [facility] Hemoglobin A1c 5.3 4.3 - 5.6 % [facility] Comment: Reference Range: 4.3 - 5.6% [...] Mellitus, Diabetes Care 2013; 36: Suppl. 1, S67-76 Estimated Average Glucose 105 mg/dL [facility] Comment: eAG equivalents for HbA1c percentages: [...] into estimated average glucose values. ??Diabetes Care 2008:31(8):8529-5434. Blood specimen (specimen) 09/06/2018 10:01 AM EDT 09/06/2018 11:07 AM EDT Narrative Resulting Agency Comment Spec In Lab Meagan Garza MD CHEMISTRY ORDERABL ES [facility] [place] [address] * (ABNORMAL) Hepatic Function Panel (09/06/2018 10:01 AM EDT) Protein, Total 6.0(L) 6.1 - 8.0 gm/dL [facility] Albumin 2.9(L) 3.2 - 5.2 gm/dL [facility] Aspartate Aminotransferase 16 0 - 30 unit/L [facility] Alanine Aminotransferase 28 0 - 30 unit/L [facility] Alkaline Phosphatase 102 40 - 104 unit/L [facility] Bilirubin, Total <0.2(L) 0.2 - 1.3 mg/dL [facility] Bilirubin, Direct <0.1 0.0 - 0.3 mg/dL [facility] Blood specimen (specimen) 09/06/2018 10:01 AM EDT 09/06/2018 11:07 AM EDT Narrative Resulting Agency Comment Spec In Lab Meagan Garza MD CHEMISTRY ORDERABL ES Performing Organization Address [facility] Co de Phone Number [facility] [place] [address] * Phosphorus (09/06/2018 10:01 AM EDT) Phosphorus 2.8 2.5 - 4.5 mg/dL [facility] Blood specimen (specimen) 09/06/2018 10:01 AM EDT 09/06/2018 11:07 AM EDT Narrative Resulting Agency Comment Spec In Lab Meagan Garza MD CHEMISTRY ORDERABL ES Performing Organization Address [facility] Phone Number [facility] [place] [address] * (ABNORMAL) Magnesium (09/06/2018 10:01 AM EDT) Magnesium 0.68(L) 0.69 - 1.07 mmol/L [facility] Blood specimen (specimen) 09/06/2018 10:01 AM EDT 09/06/2018 11:07 AM EDT Narrative Resulting Agency Comment Spec In Lab Meagan Garza MD CHEMISTRY ORDERABL ES Performing Organization Address [facility] Co de Phone Number [facility] [place] [address] * Blood culture (09/05/2018 10:00 PM EDT) Blood Culture No growth at 5 days. [facility] Blood specimen (specimen) 09/05/2018 10:00 PM EDT 09/05/2018 10:17 PM EDT Narrative Resulting Agency Comment Spec In Lab Meagan Garza MD MICROBIOLOGY - BLO OD ORDERABLES Performing Organization Address [facility] Co de Phone Number [facility] [place] [address] * DNA Antibody (Double-Stranded) (09/05/2018 9:45 PM EDT) DNA Ab (DS) Neg Neg [facility] Blood specimen (specimen) 09/05/2018 9:45 PM EDT 09/06/2018 7:34 AM EDT Narrative Resulting Agency Comment Spec In Lab Meagan Garza MD LAB SEND OUT ORDER REBECA [facility] [place] [address] * SS-B/La Antibody (09/05/2018 9:45 PM EDT) SS-B/La Ab <0.2 <1.0 (Negative) [facility] Comment: Test Performed by: [place] [address] Blood specimen (specimen) 09/05/2018 9:45 PM EDT 09/06/2018 8:34 AM EDT Narrative Resulting Agency Comment Spec In Lab Meagan Garza MD LAB SEND OUT ORDER REBECA Performing Organization Address City/[facility]/ZIP Co de Phone Number [facility] [place] [address] * SS-A/Ro Antibody (09/05/2018 9:45 PM EDT) SS-A/Ro Ab <0.2 <1.0 (Negative) [facility] Comment: Test Performed by: [address] [address] Blood specimen (specimen) 09/05/2018 9:45 PM EDT 09/06/2018 8:34 AM EDT Narrative Resulting Agency Comment Spec In Lab Meagan Garza MD LAB SEND OUT ORDER REBECA [facility] [place] [address] * C4 Complement (09/05/2018 9:45 PM EDT) Complement C4 30 10 - 40 mg/dL [facility] Blood specimen (specimen) 09/05/2018 9:45 PM EDT 09/05/2018 10:08 PM EDT Narrative Resulting Agency Comment Spec In Lab Meagan Garza MD CHEMISTRY ORDERABL ES Performing Organization Address City/[facility]/ZIP Co de Phone Number [facility] [place] [address] * C3 Complement (09/05/2018 9:45 PM EDT) Complement C3 111 90 - 180 mg/dL [facility] Blood specimen (specimen) 09/05/2018 9:45 PM EDT 09/05/2018 10:08 PM EDT Narrative Resulting Agency Comment Spec In Lab Meagan Garza MD CHEMISTRY ORDERABL ES Performing Organization Address [facility]/ZIP Co de Phone Number [facility] [place] [address] * Proteinase-3 Antibody (09/05/2018 9:45 PM EDT) Proteinase 3 Antibody 3.4 <=20.0 unit(s) [facility] Blood specimen (specimen) 09/05/2018 9:45 PM EDT 09/06/2018 7:37 AM EDT Narrative Resulting Agency Comment Spec In Lab Meagan Garza MD IMMUNOLOGY ORDERAB LES Performing Organization Address City/[facility]/ZIP Co de Phone Number [facility] [place] [address] * Myeloperoxidase Ab (09/05/2018 9:45 PM EDT) Myeloperoxidase Antibody 2.0 <=20.0 unit(s) [facility] Blood specimen (specimen) 09/05/2018 9:45 PM EDT 09/06/2018 7:37 AM EDT Narrative Resulting Agency Comment Spec In Lab Meagan Garza MD IMMUNOLOGY ORDERAB LES Performing Organization Address [facility] de Phone Number [facility] [place] [address] * Cytoplasmic Neutrophilic Ab (09/05/2018 9:45 PM EDT) C-Anca (AUGUST) Negative Negative [facility] Comment: Test Performed by: [facility] [place] [address] P-Anca (AUGUST) Negative Negative [facility] Comment: Negative for cANCA and pANCA patterns by immunofluorescence. ADDITIONAL INFORMATION This test was developed and its performance characteristics determined by [facility] in a manner consistent with CLIA requirements. This test has not been cleared or approved by the U.S. Food and Drug Administration. Test Performed by: [facility] [place] [address] Blood specimen (specimen) 09/05/2018 9:45 PM EDT 09/06/2018 8:34 AM EDT Narrative Resulting Agency Comment Spec In Lab Meagan Garza MD LAB SEND OUT ORDER REBECA Performing Organization Address [facility] de Phone Number [facility] [place] [address] * (ABNORMAL) CRP, acute inflammation (09/05/2018 9:45 PM EDT) C-Reactive Protein 65.9(H) <=4.9 mg/L [facility] Blood specimen (specimen) 09/05/2018 9:45 PM EDT 09/05/2018 10:08 PM EDT Narrative Resulting Agency Comment Spec In Lab Meagan Garza MD CHEMISTRY ORDERABL ES Performing Organization Address [facility] Co de Phone Number [facility] [place] [address] * (ABNORMAL) Sedimentation rate (09/05/2018 9:45 PM EDT) Sedimentation Rate Automated 24(H) 0 - 20 mm/hr [facility] Blood specimen (specimen) 09/05/2018 9:45 PM EDT 09/05/2018 10:08 PM EDT Narrative Resulting Agency Comment Spec In Lab Meagan Garza MD HEMATOLOGY ORDERAB LES Performing Organization Address [facility] Co de Phone Number [facility] [place] [address] * Blood culture (09/05/2018 9:45 PM EDT) Blood Culture No growth at 5 days. [facility] Blood specimen (specimen) 09/05/2018 9:45 PM EDT 09/05/2018 10:18 PM EDT Narrative Resulting Agency Comment Spec In Lab Meagan Garza MD MICROBIOLOGY - BLO OD ORDERABLES Performing Organization Address [facility] de Phone Number [facility] [place] [address] * Request For 2nd Read CT Head [...] below. ? Electronically signed by: BRITTANI Reddy [facility] ([phone]), at 09/05/2018 7:08 PM Narrative 09/05/2018 7:08 PM EDT EXAMINATION: REQUEST [...] palpitations Palpitations Cerebrovascular accident (CVA), unspecified mechanism Stroke Unspecified cerebral artery occlusion with cerebral infarction documented in this encounter Admitting Diagnoses Diagnosis Stroke Unspecified cerebral artery occlusion with cerebral infarction documented in this encounter Administered Medications Inactive Administered Medications - up to 3 most recent administrations Medication Order MAR Action Action Date Dose Rate Site acetaminophen (TYLENOL) tablet 650 mg 650 mg, Oral, EVERY 4 HOURS PRN, Starting on Mon09/05/18 at 1853, Until Mon09/06/18 at 1009, Pain, mild pain, Maximum dose of acetaminophen is 4000 mg from all sources in 24 hours., Routine Given 09/06/2018 6:25 AM EDT 650 mg acetaminophen (TYLENOL) tablet 650 mg 650 mg, Oral, EVERY 6 HOURS, First dose (after last modification) on Mon09/06/18 at 1045, Until Discontinued, Maximum dose of acetaminophen is 4000 mg from all sources in 24 hours., Routine Given 09/12/2018 5:04 AM EDT 650 mg Given 09/11/2018 11:23 PM EDT 650 mg Given 09/11/2018 4:55 PM EDT 650 mg aspirin EC tablet 81 mg 81 mg, Oral, DAILY, First dose on Mon09/06/18 at 0900, Until Discontinued, Routine Given 09/12/2018 [...] Given 09/10/2018 3:56 PM EDT 1,000 mg candesartan (ATACAND) 16 mg tablet 8 mg 8 mg, Oral, DAILY, First dose on Mon09/11/18 at 1100, Until Discontinued, Routine, Inpatient initiation is restricted to neurology for the indication of migraine prophylaxis. Is this patient being initiated on this medication for migraine prophylaxis? Yes, Please indicate the neurology attending approving this inpatient medication initiation for migraine prophylaxis. chris Given 09/11/2018 12:16 PM EDT 8 mg clopidogrel (PLAVIX) tablet 300 mg 300 mg, Oral, ONCE, 1 dose, On Mon09/07/18 at 1745, Routine Given 09/07/2018 5:45 PM EDT 300 mg clopidogrel (PLAVIX) tablet 75 mg 75 mg, Oral, DAILY, First dose on Mon09/08/18 at 0900, Until Discontinued, Routine Given 09/12/2018 [...] AM EDT 2 puffs gabapentin (NEURONTIN) capsule 100 mg 100 mg, Oral, 3 TIMES DAILY, First dose on Mon09/05/18 at 2100, Until Discontinued, Routine Given 09/10/2018 3:53 PM EDT 100 mg Given 09/10/2018 8:12 AM EDT 100 mg Given 09/09/2018 8:03 PM EDT 100 mg gabapentin (NEURONTIN) capsule 400 mg 400 mg, Oral, 3 TIMES DAILY, First dose (after last modification) on Mon09/10/18 at 2100, Until Discontinued, Routine Given 09/12/2018 9:34 AM EDT 400 mg Given 09/11/2018 8:13 PM EDT 400 mg Given 09/11/2018 3:28 PM EDT 400 mg gadoterate meglumine (DOTAREM) 0.5 mmol/mL (376.9 mg/mL) injection 21.98 mL 21.98 mL (0.2 mL/kg/dose ? 109.9 kg), Intravenous, ONCE PRN, 1 dose, Starting on Mon09/10/18 at 1311, Until Mon09/10/18 at 1236, Per Protocol, Routine Given 09/10/2018 12:36 PM EDT 44 m Ls iohexol (OMNIPAQUE) 350 mg/mL solution 0-200 mL 0-200 mL, Intravenous, ONCE PRN, 1 dose, Starting on Mon09/06/18 at 2008, Until Mon09/06/18 at 2007, Per Protocol, Warning Vesicant/Irritant Medication , Radiology Contrast, Routine Given 09/06/2018 8:08 PM EDT 65 mLs iohexol (OMNIPAQUE) 350 mg/mL solution 110 mL 110 mL, Intravenous, ONCE PRN, 1 dose, Starting on Mon09/11/18 at 1257, Until Mon09/11/18 at 1258, Per Protocol, Warning Vesicant/Irritant Medication , Routine Given 09/11/2018 12:58 PM EDT 11 0 mLs ketorolac (TORADOL) injection 15 mg 15 mg, Intravenous, EVERY 6 HOURS PRN, Starting on Mon09/05/18 at 1853, Until Mon09/10/18 at 1852, Pain, Routine Given 09/10/2018 2:18 PM EDT 15 mg Given 09/10/2018 5:29 AM EDT 15 mg Given 09/09/2018 8:03 PM EDT 15 mg ketorolac (TORADOL) injection 15 mg 15 mg, Intravenous, ONCE, 1 dose, On Mon09/06/18 at 1000, Routine Given 09/06/2018 9:49 AM EDT 15 mg lactulose (Chronulac) (0.67 gram/mL) oral liquid [...] Discontinued, Remove lidocaine 5 %(700 mg/patch) patch lisinopril (PRINIVIL;ZESTRIL) tablet 5 mg 5 mg, Oral, DAILY, First dose on Mon09/07/18 at 1615, Until Discontinued, Routine Given 09/11/2018 9:02 AM EDT 5 mg Given 09/10/2018 8:13 AM EDT 5 mg Given 09/09/2018 8:08 AM EDT 5 mg lisinopril (PRINIVIL;ZESTRIL) tablet 5 mg 5 mg, Oral, DAILY, First dose on Mon09/12/18 at 0900, Until Discontinued, Routine Given 09/12/2018 9:34 AM EDT 5 mg LORazepam (ATIVAN) injection 1 mg 1 mg, Intravenous, ONCE, 1 dose, On Mon09/10/18 at 1215, Routine Given 09/10/2018 11:58 AM EDT 1 mg magnesium oxide (MAG-OX) tablet 400 mg 400 mg, Oral, 2 TIMES DAILY, First dose on Mon09/06/18 at 1030, Until Discontinued, Routine Given 09/10/2018 9:23 PM EDT 400 mg Given 09/10/2018 8:16 AM EDT 400 mg Given 09/09/2018 8:03 PM EDT 400 mg magnesium sulfate 1g in dextrose 5% 100mL 1 g, Intravenous, ONCE, 1 dose, On Mon09/05/18 at 1900, Administer over 60 Minutes New Bag 09/05/2018 10:25 PM EDT 1 g 100 mL/hr magnesium sulfate 1g in dextrose 5% 100mL [...] dose., Routine, Name of patient's Methadone clinic? [facility], Methadone clinic phone: , Date last Methadone dose was given at the Outpatient Clinic? 09/03/2018, Dose of Methadone provided at the clinic? 120mg QD Given 09/12/2018 9:32 AM EDT 120 mg Given 09/11/2018 8:57 AM EDT 120 mg Given 09/10/2018 8:15 AM EDT 120 mg methadone (Dolophine) (10 mg/mL) oral liquid 60 mg 60 mg, Oral, ONCE, 1 dose, On Mon09/06/18 at 1430, Liquid methadone should be used to avoid diversion, and a mouth check should be performed after each dose., STAT, Name of patient's Methadone clinic? [facility] Methadone clinic phone: , Date last Methadone dose was given at the Outpatient Clinic? 09/03/2018, Dose of Methadone provided at the clinic? 120mg QD (confirmed pt did not take methadone 09/04 or 09/05) Given 09/06/2018 4:44 PM EDT 60 mg metoprolol (LOPRESSOR) tablet 12.5 mg 12.5 [...] mg 4 mg, Intravenous, EVERY 8 HOURS PRN, Starting on Mon09/07/18 at 0206, Until Mon09/10/18 at 2034, Nausea, Vomiting, STAT Given 09/09/2018 7:00 AM EDT 4 mg Given 09/08/2018 11:05 PM EDT 4 mg Given 09/08/2018 5:39 AM EDT 4 mg ondansetron (ZOFRAN) injection 4 mg 4 mg, [...] AM EDT 4 mg pantoprazole (PROTONIX) tablet 20 mg 20 mg, Oral, DAILY, First dose on Mon09/05/18 at 1900, Until Discontinued, DO NOT CRUSH OR OPEN Given 09/09/2018 8:07 AM EDT 20 mg Given 09/08/2018 8:07 AM EDT 20 mg Given 09/07/2018 8:39 AM EDT 20 mg pantoprazole (PROTONIX) tablet 80 mg 80 mg, Oral, DAILY, First dose (after last modification) on 09/10/18 at 0900, Until Discontinued, DO NOT CRUSH OR OPEN Given 09/12/2018 9:34 AM EDT 80 mg Given 09/11/2018 9:00 AM EDT 80 mg Given 09/10/2018 8:15 AM EDT 80 mg perflutren lipid microspheres (DEFINITY) injection 1.5 mL 1.5 mL, Intravenous, ONCE PRN, 1 dose, Starting on Briana 09/06/18 at 1245, Until Briana 09/06/18 at 1245, Other, for enhancement of sub-optimal echo images, Echo Lab (Intra-Procedure), Routine Given 09/06/2018 12:45 PM EDT 1.5 mLs polyethylene glycol (MIRALAX) packet 17 g 17 [...] Given 09/11/2018 3:30 PM EDT 10 mg prochlorperazine (COMPAZINE) tablet 10 mg 10 mg, Oral, EVERY 6 HOURS PRN, Starting on 09/08/18 at 0740, Until 09/08/18 at 1254, Nausea, For nausea refractory to Zofran, Maximum dose: 50 mg / 24 hrs, Routine Given 09/08/2018 10:32 AM EDT 10 mg senna-docusate (PERICOLACE) 8.6-50 mg [...] chloride 0.9% 55 mL 500 mg, Intravenous, ONCE, 1 dose, On Mon09/05/18 at 1900, Administer over 5 Minutes, IV push over 5min for CUADRA New Bag 09/05/2018 8:11 PM EDT 500 mg 660 mL/hr valproate (DEPACON) 500 mg in sodium chloride 0.9% 55 mL 500 mg, Intravenous, EVERY 8 HOURS SCHEDULED, First dose on Mon09/10/18 at 2200, Until Discontinued, Administer over 60 Minutes New Bag 09/10/2018 9:38 PM EDT 500 mg 55 mL/hr valproate (DEPACON) 500 mg in sodium chloride [...] HOURS, First dose (after last modification) on Mon09/06/18 at 1045, Until Discontinued, Maximum dose of [...] 81 mg, Oral, DAILY, First dose on Mon09/06/18 at 0900, Until Discontinued, Routine 0813 (Given [...] on 09/08/18 at 0900, Until Discontinued, Routine 08 (Given - Provider: Esme Burton RN) 09 (Given - Provider: Saud Sinclair RN) 0934 (Given - Provider: Saud Sinclair, ROBERT)1207 (JUN Hold - Provider: Admin Adt - Reason: Transfer to a Procedural area)1507 (JUN Unhold - Provider: Admin Adt) cyanocobalamin (vitamin B-12) tablet 1,000 mcg 1,000 mcg, Oral, DAILY, First dose on Briana 09/06/18 at 1030, Until Discontinued, Routine 08 (Given - Provider: Esme Burton RN) 09 (Given - Provider: Saud Sinclair RN) 0935 (Given - Provider: Saud Sinclair RN)1207 (JUN Hold - Provider: Admin Adt - Reason: Transfer to a Procedural area)1507 (JUN Unhold - Provider: Admin Adt) enoxaparin (LOVENOX) injection 40 mg 40 mg, Subcutaneous, NIGHTLY, First dose on Mon09/05/18 at 2100, Until Discontinued, Routine 2121 (Given - Provider: Mandeep Boothe RN) 2014 (Given - Provider: Mandeep Boothe RN) 1207 (JUN Hold - Provider: Admin Adt - Reason: Transfer to a Procedural area)1507 (MAR Unhold - Provider: Admin Adt) fluticasone propionate (FLOVENT) 220 mcg/actuation inhaler 2 puff 2 puff, Inhalation, 2 TIMES DAILY, First dose on Mon09/05/18 at 2100, Until Discontinued, Shake well; Rinse mouth after administration., Routine 0824 (Given - Provider: Esme Burton RN)213 (Given - Provider: Mandeep Boothe RN) 0925 (Given - Provider: Saud Sinclair RN)2011 (Given - Provider: Mandeep Boothe RN) 0959 (Given - Provider: Saud Sinclair RN)1207 (JUN Hold - Provider: Admin Adt - Reason: Transfer to a Procedural area)1507 (JUN Unhold - Provider: Admin Adt) gabapentin (NEURONTIN) capsule 100 mg (CANCELED) 100 mg, Oral, 3 TIMES DAILY, First dose on Mon09/05/18 at 2100, Until Discontinued, Routine 0812 (Given - Provider: Esme Burton RN)1553 (Given - Provider: Esme Burton RN) gabapentin (NEURONTIN) capsule 400 mg 400 mg, Oral, 3 TIMES DAILY, First dose (after last modification) on Mon09/10/18 at 2100, Until Discontinued, Routine 212 (Given - Provider: Mandeep Boothe RN) 0905 (Given - Provider: Saud Sinclair RN)1528 (Given [...] Discontinued, Remove lidocaine 5 %(700 mg/patch) patch 2099 (Patch Removed - Provider: Mandeep Boothe RN [...] hr 63) 0902 (Given - Provider: Saud Sinclair RN) lisinopril (PRINIVIL;ZESTRIL) tablet 5 mg 5 [...] 1215, Routine 1158 (Given - Provider: Esme Burton RN) magnesium oxide (MAG-OX) tablet 400 mg (CANCELED) 400 mg, Oral, 2 TIMES DAILY, First dose on Mon09/06/18 at 1030, Until Discontinued, Routine 0816 (Given - Provider: Esme Burton RN)2123 (Given - Provider: Mandeep Boothe, ROBERT) magnesium sulfate 1g in dextrose 5% 100mL 1 g, Intravenous, DAILY, 10 doses, First dose on Mon09/11/18 at 0900, Last dose on Mon09/20/18 at 0900, Administer over 60 Minutes 0922 (New Bag - Provider: Saud Sinclair RN)1022 (Stopped - Provider: Saud Sinclair, ROBERT) 0936 (New Bag - Provider: Saud Sinclair, ROBERT)1036 (Stopped - Provider: Saud Sinclair RN)1207 (JUN Hold - Provider: Admin Adt - Reason: Transfer to a Procedural area)1507 ([facility] Unhold - Provider: Admin Adt) melatonin tablet 6 mg 6 mg, Oral, NIGHTLY, First dose on Mon09/06/18 at 2215, Until Discontinued, Routine 2121 (Given - Provider: Mandeep Boothe, ROBERT) 2011 (Given - Provider: Mandeep Boothe, ROBERT) 1207 (JUN Hold - Provider: Admin Adt - Reason: Transfer to a Procedural area)1507 ([facility] Unhold - Provider: Admin Adt) methadone (Dolophine) (10 mg/mL) oral liquid 120 mg 120 mg, Oral, DAILY, First dose on Mon09/07/18 at 0900, Until Discontinued, Liquid methadone should be used to avoid diversion, and a mouth check should be performed after each dose., Routine, Name of patient's Methadone clinic? [facility], Methadone clinic phone: , Date last Methadone dose was given at the Outpatient Clinic? 09/03/2018, Dose of Methadone provided at the clinic? 120mg QD 0815 (Given - Provider: Esme Burton RN) 0857 (Given - Provider: Saud Sinclair RN) 0932 (Given - Provider: Saud Sinclair RN)1207 ([facility] Hold - Provider: Admin Adt - Reason: Transfer to a Procedural area)1507 ([facility] Unhold - Provider: Admin Adt) metoprolol (LOPRESSOR) [...] Burton RN) 0059 (Given - Provider: Mandeep Boothe, ROBERT)0505 (Given - Provider: Mandeep Boothe, ROBERT)1214 (Given - Provider: Saud Sinclair RN)1839 (Given [...] 2126 (Given - Provider: Mandeep Boothe RN) 2014 (Given - Provider: Mandeep Boothe RN) 1207 [...] on Mon09/10/18 at 2200, Until Discontinued, STAT 2122 (See Alternative - Provider: Mandeep Boothe RN) 0506 (See Alternative - Provider: Mandeep Boothe RN)1544 (Given - Provider: Saud Sinclair RN)2323 (See Alternative - Provider: Mandeep Boothe RN) 0504 (See Alternative - Provider: Mandeep Boothe RN)1207 (JUN Hold - Provider: Admin Adt - Reason: Transfer to a Procedural area)1400 (Automatically Held - Provider: Admin Adt)1507 ([facility] Unhold - Provider: Admin Adt) ondansetron (ZOFRAN) tablet 4 mg(Linked Group 3) 4 mg, Oral, EVERY 8 HOURS SCHEDULED, First dose (after last modification) on Mon09/10/18 at 2200, Until Discontinued, Routine 2122 (Given - Provider: Mandeep Boothe RN) 0506 (Given - Provider: Mandeep Boothe RN)1544 (See Alternative - Provider: Saud Sinclair RN)2323 (Given - Provider: Mandeep Boothe RN) 0504 (Given - Provider: Mandeep Boothe RN)1207 ([facility] Hold - Provider: Admin Adt - Reason: Transfer to a Procedural area)1400 (Automatically Held - Provider: Admin Adt)1507 ([facility] Unhold - Provider: Admin Adt) pantoprazole (PROTONIX) [...] - Reason: Transfer to a Procedural area)1507 ([facility] Unhold - Provider: Admin Adt) polyethylene glycol (MIRALAX) packet 17 g 17 g, Oral, DAILY, First dose on Mon09/05/18 at 1900, Until Discontinued, Routine 0900 (Not Given - Provider: Esme Burton RN - Reason: Patient/family refused) 0900 (Not Given - Provider: Saud Sinclair RN - Reason: NPO) 0900 (Not Given - Provider: Saud Sinclair RN - Reason: Patient/family refused)1207 (JUN Hold - Provider: Admin Adt - Reason: Transfer to a Procedural area)1507 ([facility] Unhold - Provider: Admin Adt) prochlorperazine (COMPAZINE) [...] pt states not nauseas.)2100 (Given - Provider: Mandeep Boothe RN) 0200 (Not Given - Provider: Mandeep Boothe RN - Reason: See comment - Comment: pt is sleeping. held per order instructions)0857 (Given - Provider: Saud Sinclair RN)1530 (Given - Provider: Saud Sinclair RN)2009 (Given - Provider: Mandeep Boothe RN) 0200 (Not Given - Provider: Mandeep Boothe RN - Reason: Per MD Order - Comment: pt is sleeping)0943 (Given - Provider: Saud Sinclair RN)1207 (JUN Hold - Provider: Admin Adt - Reason: Transfer to a Procedural area)1400 (Automatically Held - Provider: Admin Adt)1507 ([facility] Unhold - Provider: Admin Adt) senna-docusate (PERICOLACE) [...] area)1507 ([facility] Unhold - Provider: Admin Adt) tiZANidine (ZANAFLEX) tablet 4 mg 4 mg, Oral, 3 TIMES DAILY, First dose on Mon09/08/18 at 1500, Until Discontinued, Routine 0813 (Given - Provider: Esme Burton RN)1553 (Given - Provider: Esme Burton RN)2123 (Given - Provider: Mandeep Boothe RN) 0901 (Given - Provider: Saud Sinclair RN)1528 (Given - Provider: Saud Sinclair RN)2012 (Given - Provider: Mandeep Boothe RN) 0934 (Given - Provider: Saud Sinclair RN)1207 ([facility] Hold - Provider: Admin Adt - Reason: Transfer to a Procedural area)1500 (Automatically Held - Provider: Admin Adt)1507 ([facility] Unhold - Provider: Admin Adt) valproate (DEPACON) 500 mg in sodium chloride 0.9% 55 mL (CANCELED) 500 mg, Intravenous, EVERY 8 HOURS SCHEDULED, First dose on Mon09/10/18 at 2200, Until Discontinued, Administer over 60 Minutes 2138 (New Bag - Provider: Mandeep Boothe, RN)2238 (Stopped - Provider: Mandeep Boothe RN) [...] RN)0226 (Stopped - Provider: Mandeep Boothe RN)1207 (MAR Hold - Provider: Admin Adt - Reason: Transfer to a Procedural area)1507 ([facility] Unhold - Provider: Admin Adt)1520 (New Bag - Provider: Saud Sinclair RN - Comment: and procedure related)1620 (Stopped - Provider: Saud Sinclair RN)1730 (Not Given - Provider: Saud Sinclair RN - Reason: See comment - Comment: Too close to delayed last dose.) Continuous Medication Order 09/10/2018 09/11/2018 09/12/2018 sodium chloride 0.9% infusion 1,000 mL, at 100 mL/hr, Intravenous, CONTINUOUS, Starting on Mon09/05/18 at 1900, Until Mon09/12/18 at 2139 0527 (New Bag - Provider: Ayden Toscano RN)1807 (New Bag - Provider: Esme Burton RN) 0501 (New Bag - Provider: Mandeep Boothe, ROBERT)2327 (New Bag - Provider: Mandeep Boothe, ROBERT) 0500 (Rate/Dose Verify - Provider: Mandeep Boothe RN)1207 (MAR Hold - Provider: Admin Adt - Reason: Transfer to a Procedural area)1507 ([facility] Unhold - Provider: Admin Adt) PRN Medication Order 09/10/2018 09/11/2018 09/12/2018 albuterol (PROVENTIL) nebulizer solution 2.5 mg 2.5 mg, Nebulization, EVERY 6 HOURS PRN, Starting on Mon09/05/18 at 1837, Until Mon09/12/18 at 2139, Wheezing, Routine 1207 ([facility] Hold - Provider: Admin Adt - Reason: Transfer to a Procedural area)1507 ([facility] Unhold - Provider: Admin Adt) [...] be given concomitantly for constipation., Routine 1207 ([facility] Hold - Provider: Admin Adt - Reason: Transfer to a Procedural area)1507 ([facility] Unhold - Provider: Admin Adt) calcium carbonate (Tums) chewable tablet 500-1,000 mg 500-1,000 mg, Oral, EVERY 4 HOURS PRN, Starting on 09/08/18 at 0550, Until Mon09/12/18 at 2139, Heartburn, Give 500 mg (1 tablet) for mild to moderate heartburn. Give 1,000 mg (2 tablets) for severe heartburn., Routine 1556 (Given - Provider: Esme Burton RN) 0059 (Given - Provider: Mandeep Boothe RN)1128 (Given - Provider: Saud Sinclair RN) 1207 ([facility] Hold - Provider: Admin Adt - Reason: Transfer to a Procedural area)1507 ([facility] Unhold - Provider: Admin Adt) docusate sodium (COLACE) capsule 100 mg 100 mg, Oral, DAILY PRN, Starting on Mon09/05/18 at 1853, Until Mon09/12/18 at 2139, Constipation, Routine 1207 ([facility] Hold - Provider: Admin Adt - Reason: Transfer to a Procedural area)1507 ([facility] Unhold - Provider: Admin Adt) [...] given with labetalol or nicardipine., Routine 1207 (JUN Hold - Provider: Admin Adt - Reason: Transfer to a Procedural area)1507 ([facility]UN Unhold - Provider: Admin Adt) gadoterate meglumine (DOTAREM) 0.5 mmol/mL (376.9 mg/mL) injection 21.98 mL (COMPLETED) 21.98 mL (0.2 mL/kg/dose ? 109.9 kg), Intravenous, ONCE PRN, 1 dose, Starting on Mon09/10/18 at 1311, Until Mon09/10/18 at 1236, Per Protocol, Routine 1236 (Given - Provider: Judit Regalado) iohexol (OMNIPAQUE) 350 mg/mL solution 110 mL (COMPLETED) 110 mL, Intravenous, ONCE PRN, 1 dose, Starting on Mon09/11/18 at 1257, Until Mon09/11/18 at 1258, Per [...] - Reason: Transfer to a Procedural area)1507 ([facility] Unhold - Provider: Admin Adt) lactulose (Chronulac) (0.67 gram/mL) oral liquid 20 g 20 g, Oral, 2 TIMES DAILY PRN, Starting on Mon09/11/18 at 1323, Until Mon09/12/18 at 2139, Constipation, Routine 1207 ([facility] Hold - Provider: Admin Adt - Reason: Transfer to a Procedural area)1507 ([facility] Unhold - Provider: Admin Adt) lidocaine (XYLOCAINE) 10 mg/mL (1 %) injection 3 mg 3 mg (0.3 mL), Subcutaneous, ONCE PRN, 1 dose, Starting on Mon09/05/18 at 1837, Until Mon09/12/18 at 2138, for discomfort with PIV insertion, Routine 1207 ([facility] Hold - Provider: Admin Adt - Reason: Transfer to a Procedural area)1507 ([facility] Unhold - Provider: Admin Adt) lidocaine (XYLOCAINE) 5 % ointment (CANCELED) ONCE PRN, Starting on Mon09/12/18 at 1220, Until Mon09/12/18 at 213, Intra-Operative (Intra-Procedure) 1220 (Given - Provider: Bonnie [...] be given concomitantly for constipation., Routine 1207 ([facility] Hold - Provider: Admin Adt - Reason: Transfer to a Procedural area)1507 ([facility] Unhold - Provider: Admin Adt) sodium chloride 0.9 % flush 5-20 mL 5-20 mL, Intravenous, EVERY 1 MIN PRN, Starting on Mon09/05/18 at 1837, Until Mon09/12/18 at 2139, flush, Flush pertains to all indwelling lines. 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
--- OUTSIDE RECORDS SUMMARY | 2023-12-27 19:47 | XMS_ITS | Encounter Summary ---
[place] [address] Care Team Providers Care Chemist Pharmaceutical Name Role Phone Apple Walters APRN Primary Care Provider [phone] Reason for Visit * Reason Comments Pain Management Back Pain Encounter Details Date Type Department Care Team (Latest Contact Info) Description 08/07/2015 1:00 PM EDT Office [place] [address] Ignacia Florentino MEDICAL DATA ANALYST [facility] [place] [address] Fibromyalgia; Scoliosis of cervicothoracic spine, unspecified scoliosis type; Spondylosis of lumbar region without myelopathy or radiculopathy Social History Tobacco Use Types Packs/Day Years [...] Sign Reading Time Taken Comments Blood Pressure 139/84 08/07/2015 12:53 PM EDT Pulse 75 08/07/2015 12:53 PM EDT Temperature - - Respiratory Rate - - Oxygen Saturation 100% 08/07/2015 12:53 PM EDT Inhaled Oxygen Concentration - - Weight 82.6 kg (182 lb 3.2 oz) 08/07/2015 12:53 PM EDT Height 157.5 cm (5' 2) 08/07/2015 12:53 PM EDT Body Mass Index 33.32 08/07/2015 12:53 PM EDT documented in this encounter Progress Notes * Ignacia Florentino, MEDICAL DATA ANALYST - 08/07/2015 1:02 PM EDT PAIN CLINIC FOLLOW-UP Ghada Ervin [id number] Reason for follow-up: Medication management Chronic Opioid Therapy Pain Management Plan signed on 09/17/14 UDT: 06/15/15 findings reflect reported history taken on that day The [place] and [place] Prescription Monitoring Program were checked and no [...] medical problems or surgeries since previous visit? Had follow up with neurosurgery- everything is well. Headaches continue- to make appointment with Dr. Ritchie in neurology headache clinic Trying to exercise/eat right- gaining weight on lyrica Feels hypersensitive in skin, body won't rest at night; feels like body keeps going Cramps legs at night Saw PCP Monday for sinus infection; sent her to psychiatrist for medication adjustment (has been off her antidepressants and anti-anxiety medications) Changes in family, social, or functional history since previous visit? 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 Pain Quality is described as constant, achy, constant shooting in the hips Pain Exacerbating/relieving activities: worse with driving, bending, lifting, better with heat and meds Rated as 7-8/10 on average with meds- can go up to a 10 New mattress helps discomfort at night Current treatment: Percocet no more than 4 per day Counseling/therapy: hasn't seen Stephanie Banegas APRN recently ; needs new psychiatrist (working on finding new one) Lizz Reyes counselor ; has appointment next week Marijuana: smokes maybe once per day (helps with headaches/anxiety) lyrica 150 mg bid (increased to 200 mg bid 06/15) Past therapies: Physical therapy: no using currently ([phone] Mario Desouza or Saira) Had lumbar MBB bilateral 04/20/15 without improvement in pain Gabapentin 300-300-900 stopped in 03/08 Savella (stopped on own, didn't like the way she felt on it) Depression: feeling more hopeful, wants to move forward with her life Sleep: using trazodone for sleep but doesn't like the hang over effect in morning Smoking: quit 5 weeks ago! 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 amoxicillin-clavulanate (AUGMENTIN-ES) 600-42.9 mg/5 mL Suspension for Reconstitution Take 600 mg by mouth 2 times daily. Yes oxyCODONE-acetaminophen (PERCOCET) 10-325 mg Tablet Take 1 tablet by mouth every 4 hours as needed for Pain for up to 28 days. NTE 5 per day; may fill today Yes pregabalin (LYRICA) 200 mg Capsule Take 1 capsule by mouth 2 times daily. For 7 days, then increaseto 2 tabs twice per day Indications: Fibromyalgia Yes acetaminophen (TYLENOL) 325 mg Tablet Take 2 tablets by mouth every 4 hours as needed for Pain (mild pain). Yes aspirin 325 mg Tablet Take 1 tablet by mouth daily. Yes clopidogrel (PLAVIX) 75 mg Tablet Take 1 tablet by mouth daily. Yes hydrOXYzine (VISTARIL) 25 mg Capsule Take 1 capsule by mouth 2 times daily as needed. Yes cyproheptadine (PERIACTIN) 4 mg Tablet Take 1 tablet by mouth nightly. Yes promethazine (PHENERGAN) [address] 1 suppository rectally every 6 hours as needed forNausea. Yes ondansetron (ZOFRAN) 8 mg Tablet Take 8 mg by mouth every 8 hours as needed for Nausea. Yes magnesium 250 mg Tablet Take 250 mg by mouth 2 times daily. Yes potassium chloride (KLOR-CON M20) 20 mEq Tab Sust.Rel. Particle/Crystal Take 20 mEq by mouth 2 times daily. Yes calcium carbonate (TUMS) 200 mg calcium (500 mg) Tablet, Chewable Take 2 tablets by mouth daily as needed. Yes Addiction Behaviors Checklist (NA = not assessed) [...] 06/08 Physical Exam Constitutional Seen with her boyfriend , alert and oriented, cooperative Psychiatric has [...] per day, Working with neurology to manage migraines. Had 2nd surgery for aneurysm. Quit smoking. No concerning behaviors/side effects of opioid use. Rheumatology confirmed fibromyalgia. Weight gain- ? Due to lyrica Plan/Recommendations//Discussion: Renew percocet 10/325 NTE 4 per day #112. Talked about medical cannabis- discussed she needs to use legally- couldn't find paperwork on line-I printed off a copy and gave it to her. Will decrease lyrica to 150 mg bid Added flexeril 10 mg at night only. Evidenced based for fibromyalgia. Encouraged her to be active. Met her goal to stop smoking. She will follow up with neurology for migraine management Follow up in 28 days with me Ghada had an opportunity to ask questions. Ignacia Florentino, MICHAEL, ANP, MEDICAL DATA ANALYST documented in this encounter Plan of Treatment Upcoming Encounters Date Type Department Care Team (Late st Contact Info) Description 01/24/2024 3:40 PM EDT Office Visit Cardiology at [address] [phone] Rangel Willams MD [facility] [place] [place] [address] documented as of this encounter Visit Diagnoses Diagnosis Fibromyalgia Mylagia and myositis, unspecified Scoliosis of cervicothoracic spine, unspecified scoliosis type Spondylosis of lumbar region without myelopathy or radiculopathy Lumbosacral spondylosis without myelopathy documented in this encounter Care Teams Chemist Pharmaceutical Relationship Specialty Start Date End Date Apple Walters APRN PCP - General 01/14/14 06/19/16 documented as of this encounter
--- OUTSIDE RECORDS SUMMARY | 2023-12-27 19:47 | XMS_ITS | Encounter Summary ---
Author Organization [facility] [address] Care Team Providers Care Tool Programmer Name Role Phone Vicky Obrien KIM Primary Care Provider [phone] Encounter Details Date Type Department Care Team (Late st Contact Info) Description 09/04/2018 6:20 PM EDT Ancillary Procedure [place] [phone] Kd Ridley MD [facility] [place] [address] Social History Tobacco Use Types Packs/Day Years [...] PM EDT Office Visit Cardiology at [address] [phone] Rangel Willams MD [facility] [place] [address] documented as of this encounter Procedures Procedure Name Priority Date/Time Associated Diagnosis Comments FILM LIBRARY STORAGE ONLY MR HEAD Routine 09/04/2018 6:16 PM EDT documented in this encounter Results * Film Library- Storage Only MR Head (09/04/2018 6:16 PM EDT) Narrative TARI - 09/04/2018 6:16 PM EDT This exam is auto-finalizing. It's purpose is for storage only. Kd Ridley MD IMG FILM LIBRARY ORD ERABLES [place], [place] documented in this encounter Visit Diagnoses Not on filedocumented in this encounter Care Teams Tool Programmer Relationship Specialty Start Date End Date Vicky Obrien APRN PCP - General Family Medicine 08/25/17 11/21/18 documented as of this encounter
--- OUTSIDE RECORDS SUMMARY | 2023-12-27 19:47 | XMS_ITS | Encounter Summary ---
Author Organization [facility] [place] [address] Care Team Providers Care Medication Aid Name Role Phone Vicky Obrien Luis A ALVAREZ Primary Care Provider [phone] Encounter Details Date Type Department Care Team (Late st Contact Info) Description 09/06/2018 12:15 AM EDT Ancillary Procedure [place] [phone] Social History Tobacco Use Types Packs/Day Years [...] PM EDT Office Visit Cardiology at [address] [phone] Rangel Willams MD [facility] [place] [address] documented as of this encounter Procedures Procedure Name Priority Date/Time Associated Diagnosis Comments REQUEST FOR 2ND READ CT HEAD AND SPINE Routine 09/05/2018 6:28 PM EDT documented in this encounter Results * Request For 2nd Read CT Head [...] this report, please contact the number below. Jhonathan Garza MD IMG OUTSIDE INTERP RETATION ORDERABLES documented in this encounter Visit Diagnoses Not on filedocumented in this encounter Care Teams Medication Aid Relationship Specialty Start Date End Date Vicky Obrien APRN PCP - General Family Medicine 08/25/17 11/21/18 documented as of this encounter
--- OUTSIDE RECORDS SUMMARY | 2023-12-27 19:47 | XMS_ITS | Encounter Summary ---
Author Organization [facility] [place] [address] Care Team Providers Care Central Office Trouble Shooter Name Role Phone Vicky Obrien KIM Primary Care Provider [phone] Encounter Details Date Type Department Care Team (Late st Contact Info) Description 09/03/2018 12:05 AM EDT Ancillary Procedure [place] [phone] Andrea Heredia MD [facility] [place] [address] Social History Tobacco Use Types Packs/Day Years [...] PM EDT Office Visit Cardiology at [address] [phone] Rangel Willams MD [facility] [place] [address] documented as of this encounter Procedures Procedure Name Priority Date/Time Associated Diagnosis Comments FILM LIBRARY STORAGE ONLY CT HEAD Routine 09/03/2018 12:05 AM EDT documented in this encounter Results * Film Library- Storage Only CT Head (09/03/2018 12:05 AM EDT) Narrative TARI - 09/04/2018 2:12 AM EDT This exam is auto-finalizing. It's purpose is for storage only. Andrea Heredia MD IMG FILM LIBRARY ORD ERABLES [place], [place] documented in this encounter Visit Diagnoses Not on filedocumented in this encounter Care Teams Central Office Trouble Shooter Relationship Specialty Start Date End Date Vicky Obrien APRN PCP - General Family Medicine 08/25/17 11/21/18 documented as of this encounter
--- OUTSIDE RECORDS SUMMARY | 2023-12-27 19:47 | XMS_ITS | Encounter Summary ---
Author Organization [facility] [place] [address] Care Team Providers Care Training Consultant Name Role Phone MicahVicky Luis A ALVAREZ Primary Care Provider [phone] Encounter Details Date Type Department Care Team (Latest Contact Info) Description 02/07/2018 9:44 AM EDT Hospital Encounter XRay at [facility] [place] [address] West Ingram MD [facility] [place] [address] Scoliosis, unspecified scoliosis type, unspecified spinal region Discharge Disposition: Home Social History Tobacco Use [...] Pain (mild pain). 30 tablet 1 05/12/2015 PROAIR HFA 90 mcg/actuation HFA Aerosol Inhaler 02/02/2018 FLOVENT HFA 220 mcg/actuation HFA Aerosol Inhaler 02/02/2018 omeprazole (PRILOSEC) 40 mg Capsule, Delayed Release(E.C.) TAKE ONE CAPSULE BY MOUTH EVERY DAY 3 2017 09/12/2018 gabapentin (NEURONTIN) 400 mg Capsule Take 1 capsule by mouth 3 times daily. 84 capsule 3 11/25/2015 01/23/2019 calcium carbonate (TUMS) 200 mg calcium (500 mg) Tablet, Chewable Take 2 tablets by mouth daily as needed. 04/29/2021 documented as of this encounter Plan of Treatment Upcoming Encounters Date Type Department Care Team (Late st Contact Info) Description 01/24/2024 3:40 PM EDT Office Visit Cardiology at [address] [address] Rangel Willams MD [facility] [place] [address] documented as of this encounter Procedures Procedure Name Priority Date/Time Associated Diagnosis Comments XR LUMBAR SPINE 2 OR 3 VIEWS Routine 02/07/2018 10:14 AM EDT Scoliosis, unspecified scoliosis type, unspecified spinal region documented in this encounter Results * XR Lumbar Spine 2 Or 3 Views (Generic) (02/07/2018 10:14 AM EDT) Anatomical Region Laterality Modality L-spine N/A Digital Radiogra phy Impressions 02/07/2018 10:54 AM EDT No evidence of instability. Narrative 02/07/2018 10:54 AM EDT EXAMINATION: XR LUMBAR SPINE 2 OR 3 VIEWS (GENERIC) CLINICAL HISTORY: Lateral flex/ext 2 views to eval scoliosis; looking for instability/motion TECHNIQUE: AP view and lateral flexion and extension views of the lumbar spine, total of 3 images, 02/07/2018 COMPARISON: Scoliosis series of the total spine, 02/07/2018 FINDINGS: There is a convex left curvature of the lumbar spine measuring 21 degrees, centered at L3. There is a mild rotational component at L2 and L3. Tejeda rods and screws are partially seen in the lower thoracic spine terminating at T12. There is no fracture. The vertebral bodies are maintained in alignment with no subluxation between flexion and extension. Procedure Note Dylan Fleming MD - 02/07/2018 EXAMINATION: XR LUMBAR SPINE 2 OR 3 VIEWS (GENERIC) CLINICAL HISTORY: Lateral flex/ext 2 views to eval scoliosis; lookingfor instability/motion TECHNIQUE: AP view and lateral flexion and extension views of the lumbar spine, totalof 3 images, 02/07/2018 COMPARISON: Scoliosis series of the total spine, 02/07/2018 FINDINGS: There is a convex left curvature of the lumbar spine measuring 21degrees, centered at L3. There is a mild rotational component at L2 and L3.Tejeda rods and screws are partially seen in the lower thoracic spine terminatingat T12. There is no fracture. The vertebral bodies are maintained in alignment with no subluxationbetween flexion and extension. IMPRESSION No evidence of instability. West Ingram MD IMG DX ORDERABLES documented in this encounter Visit Diagnoses Diagnosis Scoliosis, unspecified scoliosis type, unspecified spinal region documented in this encounter Care Teams Training Consultant Relationship Specialty Start Date End Date Vicky Obrien APRN PCP - General Family Medicine 08/25/17 11/21/18 documented as of this encounter
--- OUTSIDE RECORDS SUMMARY | 2023-12-27 19:47 | XMS_ITS | Encounter Summary ---
Author Organization [facility] [place] [address] Care Team Providers Care Personnel Assistant Name Role Phone MicahVicky Luis A ALVAREZ Primary Care Provider [phone] Encounter Details Date Type Department Care Team (Latest Contact Info) Description 02/07/2018 9:45 AM EDT - 02/07/2018 11:59 PM EDT Hospital Encounter XRay at [address] [place] [address] West Ingram MD [facility] [place] [address] Scoliosis, unspecified scoliosis type, unspecified spinal region [...] PM EDT Office Visit Cardiology at [address] [address] Rangel Willams MD [facility] [place] [address] documented as of this encounter Procedures Procedure Name Priority Date/Time Associated Diagnosis Comments XR SCOLIOSIS OR TOTAL SPINE 2 VIEW Routine 02/07/2018 10:26 AM EDT Scoliosis, unspecified scoliosis type, unspecified spinal region documented in this encounter Results * XR Scoliosis or Total Spine 2 view (02/07/2018 10:26 AM EDT) Anatomical Region Laterality Modality C-spine, T-spine, L-spine N/A Digita l Radiography Impressions 02/07/2018 11:06 AM EDT S-shaped thoracolumbar scoliosis as described, measuring 40 degrees convex right in the thoracic spine and 27 degrees convex left in the lumbar spine. The lumbar spine component is stable since 2008. Narrative 02/07/2018 11:06 AM EDT EXAMINATION: XR SCOLIOSIS OR TOTAL SPINE 2 VIEW CLINICAL HISTORY: Full length AP/LAT to eval scoliosis TECHNIQUE: 2 views of the total spine, total of 7 images, 02/07/2018 COMPARISON: Lumbar spine x-rays 02/04/2009. No comparison studies of the thoracic spine. FINDINGS: There is an S-shaped thoracolumbar scoliosis. The thoracic component is convex right centered at T8, counting from below, measuring 40 degrees. The lumbar component is convex left centered at L3, counting from below, which measures 27 degrees, which is unchanged since 2008. There is a very mild rotational component at L2-L3. No lateral subluxation throughout the spine. Procedure Note Dylan Fleming MD - 02/07/2018 EXAMINATION: XR SCOLIOSIS OR TOTAL SPINE 2 VIEW CLINICAL HISTORY: Full length AP/LAT to eval scoliosis TECHNIQUE: 2 views of the total spine, total of 7 images, 02/07/2018 COMPARISON: Lumbar spine x-rays 02/04/2009. No comparison studies of the thoracicspine. FINDINGS: There is an S-shaped thoracolumbar scoliosis. The thoracic component isconvex right centered at T8, counting from below, measuring 40 degrees. Thelumbar component is convex left centered at L3, counting from below, whichmeasures 27 degrees, which is unchanged since 2008. There is a very mild rotational component at L2-L3. No lateral subluxation throughout the spine. IMPRESSION S-shaped thoracolumbar scoliosis as described, measuring 40 degrees convexright in the thoracic spine and 27 degrees convex left in the lumbar spine. Thelumbar spine component is stable since 2008. West Ingram MD IMG DX ORDERABLES documented in this encounter Visit Diagnoses Diagnosis Scoliosis, unspecified scoliosis type, unspecified spinal region documented in this encounter Care Teams Personnel Assistant Relationship Specialty Start Date End Date Vicky Obrien, KIM PCP - General Family Medicine 08/25/17 11/21/18 documented as of this encounter
--- OUTSIDE RECORDS SUMMARY | 2023-12-27 19:47 | XMS_ITS | Encounter Summary ---
Author Organization [facility] [place] [address] Care Team Providers Care Hand Outside Cutter Name Role Phone Vicky Obrien APRN Primary Care Provider [phone] Reason for Referral * Consultation (Routine) - Closed Specialty Diagnoses / Procedures Referred By Contac t Referred To Contact Orthopaedics Diagnoses Chronic pain syndrome Fibromyalgia Other idiopathic scoliosis, thoracolumbar region Jude Palacios, PA [facility] [place] [address] [address] [place] [address] Referral ID Status Reason Start Date Expiration Date V isits Requested Visits Authorized [id number] Closed Consult, Test & Treat 02/07/2018 02/07/2019 1 1 Reason for Visit * Reason Comments Back Pain Neck Pain Leg Pain Hip Pain * Consultation (GEORGINA) - Specialty Diagnoses / Procedures Referred By Contac t Referred To Contact Orthopaedics Diagnoses scoliosis Vicky Obrien APRN [address] [place] [address] DR [address]EREIR[address] [place] [phone] [facility] [address] [place] [address] Referral ID Status Reason Start Date Expiration Date V isits Requested Visits Authorized [id number] Consult, Test & Treat [facility] 08/25/2017 08/25/2018 1 1 Encounter Details Date Type Department Care Team (Latest Contact Info) Description 02/07/2018 11:00 AM EDT Office Visit Sp[facility] at [facility] [place] [address] Jude Palacios PA [facility] [place] [address] Chronic pain syndrome; Fibromyalgia; Other idiopathic scoliosis, thoracolumbar region Social History Tobacco Use Types Packs/Day Years [...] Sign Reading Time Taken Comments Blood Pressure 158/96 02/07/2018 11:09 AM EDT Pulse - - Temperature 36.9 ??C (98.4 ??F) 02/07/2018 11:09 AM E DT Respiratory Rate - - Oxygen Saturation - - Inhaled Oxygen Concentration - - Weight - - Height - - Body Mass Index - - documented in this encounter Progress Notes * Jude Palacios PA - 02/07/2018 11:00 AM EDT Ghada Ervin is a 27-year-old female seen today for chief complaint of chronic total spinal pain. She reports to me that she has pain in multiple locations pointing the pain essentially from herneck or mid back to her low back at its full extent, maximal shoulders and hips, and she also has long-standing history of headaches and migraines for which she has had occipital injections, Botox injections. She is a prior patient of our anesthesia pain clinic having been last seen 2015. Does haveprior history of thoracic fusion for her underlying idiopathic scoliosis. She has trialed lumbar medial branch blocks without much improvement and has trialed several medications for her pain such asElavil, gabapentin, Tylenol, Savella, Percocet, Flexeril, Lyrica. She had physical therapy several years ago. She is wondering if a lumbar fusion will address her underlying problems. The functioning is fairly poor tells me that her sleep is problematic, neither sitting or standing is more comfortable and she is eventually admitted on sitting and standing no more than 10 minutes, and walking is somewhat in the few steps. She reports to me that she never really has any comfortable pain-free periods. On exam today, this is an overweight 27-year-old female. She has a well-healed thoracic incision benign in its appearance. She stands with evidence of a fairly well compensated thoracic scoliosis without concerning kyphosis and only mild shoulder and hip asymmetry. She is tender to palpation throughout the thoracolumbar spine and neck. Her cervical range of motion is moderately restricted in all end ranges but no positive Spurling's maneuver the past of any endrange. Both lumbar flexion to 40 degrees and lumbar extension to 15 degrees causes her pain. She exhibits no focal motor weakness or sensory deficit on her upper or lower extremities. Reflexes are symmetric and slightly brisk +3 throug hout the upper and lower extremities. No clonus or Babinski signs elicited. Straight leg raises arenegative. Plain x-rays of the spine with dedicated lumbar spine series AP and lateral views as well as total spine scoliosis series and this was compared alongside her: Lumbar spine MRI from 2014. We compared her scoliosis series imaging to prior plain x-rays from 2008. Essentially there is no evidence of progression of her curvature. There is a dextroconvex 40 degrees curvature over the thoracic spine rogerio compensatory left lumbar curvature that measures approximately 25 degrees. Hardware is intact in appearance. MRI does not really show much in the way of canal or foraminal neural impingement at anylevel or any evidence for disc herniation. Assessment/plan: Ghada Ervin is a 27-year-old female seen today for chronic pain syndrome with underlying fibromyalgia and chronic neck and back pain. This is in the context of a nonprogressiveidiopathic scoliosis with prior thoracic fusion. She does not really exhibit evidence of radiculopathy or myelopathy and she has no concerning instability. I advised her that the likelihood is very poor that she would improve with any kind of lumbar spine spine surgery particularly a fusion given the diffuse nonanatomic nature of her pain as well as her significant psychosocial burden which I believe contributes to a large degree of her symptoms. At the end of her visit, I discussed that she would likely do best with considering a dedicated mind and body pain management program either considering [place] retreat, which offers the service versus our intensive move sooner rehabilitation program, [facility], which should focus on providing her physical strengthening and conditioning as well as developing chronic pain management skills, to improve day to day functioning despite chronic pain. documented in this encounter Plan of Treatment Upcoming Encounters Date Type Department Care Team (Late st Contact Info) Description 01/24/2024 3:40 PM EDT Office Visit Cardiology at [address] [address] Rangel Willams MD [facility] [place] [address] Scheduled Referrals Name Type Priority Associated Diagnoses Orde r Schedule Referral to GAP Assessment Outpatient Referral Routine Chronic pain syndrome Fibromyalgia Other idiopathic scoliosis, thoracolumbar region Ordered: 02/07/2018 documented as of this encounter Visit Diagnoses Diagnosis Chronic pain syndrome Fibromyalgia Mylagia and myositis, unspecified Other idiopathic scoliosis, thoracolumbar region documented in this encounter Care Teams Hand Outside Cutter Relationship Specialty Start Date End Date Vicky Obrien APRN PCP - General Family Medicine 08/25/17 11/21/18 documented as of this encounter
--- OUTSIDE RECORDS SUMMARY | 2023-12-27 19:47 | XMS_ITS | Encounter Summary ---
[place] [address] Care Team Providers Care Vacuum Extractor Operator Name Role Phone MicahVicky Luis A ALVAREZ Primary Care Provider [phone] Encounter Details Date Type Department Care Team (Late st Contact Info) Description 09/04/2018 [place] [address] Andrea Heredia MD [facility] [place] [address] Social History Tobacco Use Types Packs/Day Years [...] encounter Miscellaneous Notes * Telephone Encounter - Andrea Heredia MD - 09/04/2018 7:50 AM EDT I received a call from [facility] from Dr. Abbott around 2:00am. Ghada came to the ER with afew days history of headaches which were different from her usual migraines. She also has had some nonspecific visual complaints. She had some vomiting although no fever. She is on methadone for chronic pain. Head CT and CTA was reported as unremarkable. The ER physician could not get a good look at the optic disks. A lumbar puncture was done which showed 2 white blood cells one red blood cell and normal glucose and protein. An opening pressure was not done but per report a closing pressure was elevated over 300. She thinks the lumbar puncture was done in the lateral decubitus position although she did not perform it. The patient is obese and weighs 113 kg. We discussed that her presentation may suggest idiopathic intracranial hypertension although it is not completely clear what to make of the closing pressure measurement. She will be admitted to [facility]. We do not have any beds here. They will plan to obtain an MRI brain with and without contrast as well as an MRV of the head without contrast to rule out venous sinus thrombosis. We also discussed obtaining an optometry/ophthalmology consultation for a dilated for eye exam. Depending on above treatment for IH may be considered which could include Diamox or Topamax however they would need to check if the patient had history of kidney stones. Weight loss is the main treatment for IH. She could end up getting a outpatient neuro-ophthalmology consultation and possibly neurology either at [facility] or [facility] documented in this encounter Plan of Treatment Upcoming Encounters Date Type Department Care Team (Late st Contact Info) Description 01/24/2024 3:40 PM EDT Office Visit Cardiology at [address] [address] Rangel Willams MD [facility] [address] documented as of this encounter Visit Diagnoses Not on filedocumented in this encounter Care Teams Vacuum Extractor Operator Relationship Specialty Start Date End Date Vicky Obrien APRN PCP - General Family Medicine 08/25/17 11/21/18 documented as of this encounter
--- OUTSIDE RECORDS SUMMARY | 2023-12-27 19:47 | XMS_ITS | Encounter Summary ---
Author Organization [facility] [place] [address] Care Team Providers Care Garbage Truck Driver Name Role Phone Vicky Obrien APRN Primary Care Provider [phone] Encounter Details Date Type Department Care Team (Late st Contact Info) Description 02/20/2017 Orders [place] [address] Luiza Colbert Social History Tobacco Use Types [...] PM EDT Office Visit Cardiology at [address] [address] Rangel Willams MD [facility] [place] [address] documented as of this encounter Visit Diagnoses Not on filedocumented in this encounter Care Teams Garbage Truck Driver Relationship Specialty Start Date End Date Vicky Obrien APRN PCP - General Family Medicine 02/20/17 08/24/17 documented as of this encounter
--- OUTSIDE RECORDS SUMMARY | 2023-12-27 19:47 | XMS_ITS | Encounter Summary ---
Author Organization [facility] [place] [address] Care Team Providers Care Trommel Tender Name Role Phone Vicky Obrien KIM Primary Care Provider [phone] Encounter Details Date Type Department Care Team (Late st Contact Info) Description 02/20/2017 Orders [place] [phone] Eula Reid MD [facility] [place] [address] Carotid artery aneurysm Social History Tobacco Use Types Packs/Day [...] PM EDT Office Visit Cardiology at [address] [phone] Rangel Willams MD [facility] [place] [address] documented as of this encounter Visit Diagnoses Diagnosis 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
--- OUTSIDE RECORDS SUMMARY | 2023-12-27 19:47 | XMS_ITS | Encounter Summary ---
Author Organization [facility] [place] [address] Care Team Providers Care Quality Control Systems Manager Name Role Phone Apple Quiñonez Matthias ALVAREZ Primary Care Provider [phone] Reason for Visit * Auth/Cert Specialty Diagnoses / Procedures Referred By Lang sanches Referred To Contact Diagnoses CAROTID ARTERY ANEURYSM S/P STAGE I NEUROFORM STENT PLACEMENT FOR RIGHT PAR OPHTHALMIC ARTERY ANEURYSM Procedures PRO PERM OCCLUSION/EMBOLIZATION, PERCUT, HOSPITAL ACCOUNT LIAISON ANGIOPLASTY-INTRACRANIAL Referral ID Status Reason Start Date Expiration Date Visits Re quested Visits Authorized [id number] 1 1 Encounter Details Date Type Department Care Team (Latest Contact Info) Description 06/01/2015 12:02 PM EST - 06/02/2015 11:40 AM EST Hospital [place] [address] Karlo Bass MD [facility] [place] [address] Discharge Disposition: Home Social History Tobacco Use Types Packs/Day Years Used Date Smoking Tobacco: Every Day Cigarettes 0.5 8 Smokeless Tobacco: Never Alcohol Use Standard Drinks/Week Comments No 0 (1 standard drink = 0.6 oz pur e alcohol) Sex and Gender Information Value Date Recorded Sex Assigned at Not on file Gender Identity Not on file Sexual Orientation Not on file documented as of this encounter Last Filed Vital Signs Vital Sign Reading Time Taken Comments Blood Pressure 118/76 06/02/2015 10:27 AM EST Pulse 72 06/01/2015 10:00 PM EST Temperature 36.9 ??C (98.4 ??F) 06/02/2015 10:[address] Respiratory Rate 16 06/02/2015 10:27 AM EST Oxygen Saturation 99% 06/02/2015 10:27 AM EST Inhaled Oxygen Concentration - - Weight 74.8 kg (165 lb) 06/01/2015 12:33 PM EST Height 157.5 cm (5' 2) 06/01/2015 12:33 PM EST Body Mass Index 30.18 06/01/2015 12:33 PM EST documented in this encounter Discharge Summaries * Johnnie Turk PA - 06/02/2015 9:24 AM EST Inpatient - Discharge Summary Patient Name: Ghada Ervin Patient Age: 24 y.o. Birthdate: 1990 Admit date: 06/01/2015 Discharge date and time: 06/02/2015 Attending Physician: Karlo Bass MD Discharge Diagnoses (Hospital Problems): Active Hospital Problems Diagnosis ??? Intracranial aneurysm 05/11/15, Dr Bass 1.?? Diagnostic cerebral angiogram.?? Vessels injected:?? Right internal carotid artery. 2.?? 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 06/01/15 Stage II coil embolization of paraclinoid aneurysm on the right Resolved Hospital Problems Diagnosis Date Resolved No resolved problems to display. Active Non-Hospital Problems Diagnosis ??? Spondylosis of lumbar region without myelopathy [...] Chronic pain syndrome ??? Fibromyalgia ??? 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 She is seen by Rheumatology (has fibromyalgia, work up for joint pain/swelling in progress) and the Pain clinic (back/joint pain s/p thoracic fusion 2007 for scoliosis.) Patient was admitted 05/11 and underwent uncomplicated neuroform stent placement for right paraophthalmic artery aneurysm by Dr Bass.She now returns for Stage II. Hospital Course: Patient was admitted 06/01/15 and underwent Stage II coil embolization of paraclinoid aneurysm on theright by Dr Bass. She was monitored overnight and remained stable. She is now felt safe for d/c to home. Important Studies and Lab Data: Lab Results Component Value Date/Time WBC 8.9 06/02/2015 02:00 AM HEMOGLOBIN 11.9 06/02/2015 02:00 AM HEMATOCRIT 35.9 06/02/2015 02:00 AM PLATELETS 253 06/02/2015 02:00 AM SODIUM 138 06/02/2015 02:00 AM POTASSIUM 4.3 06/02/2015 02:00 AM CHLORIDE 101 06/02/2015 02:00 AM CO2 25 06/02/2015 02:00 AM BUN 12 06/02/2015 02:00 AM CREATININE 0.59* 06/02/2015 02:00 AM Pending Studies and Lab Data: No current labs Discharge Conditions/Prognosis: Stable Discharge to: Home Discharge Medications: Your Medications New Medications Dose Details HYDROmorphone 2 mg Tab Commonly known as: DILAUDID Take 1-2 tablets by mouth every 4 hours as needed for Pain. 2-4 mg Quantity: 30 tablet Refills: 0 Continued medications, unchanged Dose Details acetaminophen 325 mg Tab Commonly known as: TYLENOL Take 2 tablets by mouth every 4 hours as needed for Pain (mild pain). 650 mg Quantity: 30 tablet Refills: 1 ALPRAZolam 0.5 mg Tab Commonly known as: XANAX Take 0.5 mg by mouth daily as needed for Sleep or Anxiety (no more than 10 per month). Indications:Panic Disorder 0.5 mg Refills: 0 aspirin 325 mg Tab Take 1 tablet by mouth daily. 325 mg Quantity: 30 tablet Refills: 0 calcium carbonate 200 mg calcium (500 mg) Chew Commonly known as: TUMS Take 2 tablets by mouth daily as needed. 2 tablet Refills: 0 clopidogrel 75 mg Tab Commonly known as: PLAVIX Take 1 tablet by mouth daily. 75 mg Quantity: 30 tablet Refills: 3 cyproheptadine 4 mg Tab Commonly known as: PERIACTIN Take 1 tablet by mouth nightly. 4 mg Quantity: 30 tablet Refills: 3 dextroamphetamine-amphetamine 20 mg Cp24 Commonly known as: ADDERALL XR Take 20 mg by mouth every morning. 20 mg Refills: 0 hydrOXYzine 25 mg Cap Commonly known as: VISTARIL Take 1 capsule by mouth 2 times daily as needed. 25 mg Quantity: 60 capsule Refills: 3 KLOR-CON M20 20 mEq Tbtq Take 20 mEq by mouth 2 times daily. Generic drug: potassium chloride 20 mEq Refills: 0 magnesium 250 mg Tab Take 250 mg by mouth 2 times daily. 250 mg Refills: 0 ondansetron 8 mg Tab Commonly known as: ZOFRAN Take 8 mg by mouth every 8 hours as needed for Nausea. 8 mg Refills: 0 oxyCODONE-acetaminophen 10-325 mg Tab Commonly known as: PERCOCET Take 1 tablet by mouth every 4 hours as needed for Pain for up to 28 days. NTE 5 per day 1 tablet Quantity: 140 tablet Refills: 0 pregabalin 75 mg Cap Commonly known as: LYRICA Take 1 capsule by mouth 2 times daily. For 7 days, then increase to 2 tabs twice per day Indications: Fibromyalgia 75 mg Quantity: 106 tablet Refills: 0 promethazine 25 mg Supp Commonly known as: PHENERGAN Place 1 suppository rectally every 6 hours as needed for Nausea. 25 mg Quantity: 15 suppository Refills: 3 SAVELLA 50 mg Tab Take 50 mg by mouth 2 times daily. Generic drug: milnacipran 50 mg Refills: 0 Updated Allergies/ADRs: Allergies Allergen Reactions ??? Bee Pollen Anaphylaxis ??? Meperidine Hcl Anaphylaxis and Other (See Comments) flushing, respiratory trouble ??? Raoul Other (See Comments) Flu like sx ??? Zoloft [Sertraline] Other (See Comments) Flu like sx Follow-up Recommendations for Providers: See Below Instructions Given to Patient at Discharge: Patient Instructions Primary Reason for Hospitalization: Cerebral Aneurysm Condition at Discharge: Stable Special Physician Instructions: Discharge Instructions ACTIVITY: - You may shower/bathe. Have someone near in case you need help. - Increase your activity as tolerated - You may tire easily, so frequent rest periods may be necessary - No heavy lifting for first two weeks - Ask your doctor when you can drive - Discuss return to work with your doctor DIET: - Resume your usual diet. Fresh fruit, vegetables and fiber containing foods are recommended. - Stool softeners, or mild laxatives may be used as needed. COMFORT: - It is normal to have some soreness in/around your incision. - Take your pain medication as ordered/needed - Taper use of pain medication as pain lessens. CALL YOUR DOCTOR FOR: - Fever over 101 F - Redness, swelling, increasing pain or drainage from your incision. - Worsening headaches - Unsteadiness when walking/new weakness - Slurred speech - Visual changes - Drowsiness/confusion - Nausea/vomiting - Convulsions/seizures - Pain not relieved with mild medication Anti-coagulation follow up: Continue daily aspirin and Plavix as prescribed Activity level: As tolerated Diet: Regular Driving: No driving while on narcotics Shower/Bath: OK Wound Care: May remove dressing am Follow up Appointments: Please follow up with Dr Bass 2 weeks IMPORTANT PHONE NUMBERS: Outpatient Nurse (Gladys Latif) Inpatient Nurses Neurosurgical Resident Design And Sales Consultant (after 5pm or before 8am) Neurosurgery offices (between 8am-5pm): Dr. Conley Dr. Castaneda (pediatric neurosurgery) Dr. Aponte: Pediatric Patients , Adult Patients Dr. Mak Dr. Mehta Dr. Baez Dr. Bass Johnnie Turk, Physician Advertising Intern Nina Grimes, Nurse Practitioner Johnnie Tijerina, Physician Advertising Intern Hilaria Lutz, Nurse Practitioner CC: APPLE QUIÑONEZ APRN Future Appointments Provider Department Dept Phone 06/15/2015 11:30 AM Ignacia Watts APRN Pain Management [phone] Electronically Signed By: RICCO GARNICA 06/02/2015 documented in this encounter Discharge Instructions * Patient Instructions* Johnnie Turk PA - 06/02/2015 9:22 AM EST Primary Reason for Hospitalization: Cerebral Aneurysm Condition at Discharge: Stable Special Physician Instructions: Discharge Instructions ACTIVITY: - You may shower/bathe. Have someone near in case you need help. - Increase your activity as tolerated - You may tire easily, so frequent rest periods may be necessary - No heavy lifting for first two weeks - Ask your doctor when you can drive - Discuss return to work with your doctor DIET: - Resume your usual diet. Fresh fruit, vegetables and fiber containing foods are recommended. - Stool softeners, or mild laxatives may be used as needed. COMFORT: - It is normal to have some soreness in/around your incision. - Take your pain medication as ordered/needed - Taper use of pain medication as pain lessens. CALL YOUR DOCTOR FOR: - Fever over 101 F - Redness, swelling, increasing pain or drainage from your incision. - Worsening headaches - Unsteadiness when walking/new weakness - Slurred speech - Visual changes - Drowsiness/confusion - Nausea/vomiting - Convulsions/seizures - Pain not relieved with mild medication Anti-coagulation follow up: Continue daily aspirin and Plavix as prescribed Activity level: As tolerated Diet: Regular Driving: No driving while on narcotics Shower/Bath: OK Wound Care: May remove dressing am Follow up Appointments: Please follow up with Dr Bass 2 weeks IMPORTANT PHONE NUMBERS: Outpatient Nurse (Gladys Latif) Inpatient Nurses Neurosurgical Resident Design And Sales Consultant (after 5pm or before 8am) Neurosurgery offices (between 8am-5pm): Dr. Conley Dr. Castaneda (pediatric neurosurgery) Dr. Aponte: Pediatric Patients , Adult Patients Dr. Mak Dr. Mehta Dr. Baez Dr. Bass Johnnie Turk, Physician Advertising Intern Nina Grimes, Nurse Practitioner Johnnie Tijerina, Physician Advertising Intern Hilaria Lutz, Nurse Practitioner CC: APPLE QUIÑONEZ APRN documented in this encounter Medications at Time of Discharge Medication Sig Dispensed Refills Start Date End Date acetaminophen (TYLENOL) 325 mg Tablet Take 2 tablets by mouth every 4 hours as needed for Pain (mild pain). 30 tablet 1 05/12/2015 HYDROmorphone (DILAUDID) 2 mg Tablet Take 1-2 tablets by mouth every 4 hours as needed for Pain. 30 tablet 0 06/02/2015 07/10/2015 oxyCODONE-acetamino phen (PERCOCET) 10-325 mg Tablet Take 1 tablet by mouth every 4 hours as needed for Pain for up to 28 days. NTE 5 per day 140 tablet 0 05/18/2015 06/15/2015 aspirin 325 mg Tablet Take 1 tablet by mouth daily. 30 tablet 0 05/12/2015 02/07/2018 clopidogrel (PLAVIX) 75 mg Tablet Take 1 tablet by mouth daily. 30 tablet 3 05/12/2015 02/07/2018 cyproheptadine (PERIACTIN) 4 mg Tablet Take 1 tablet by mouth nightly. 30 tablet 3 03/25/2015 02/07/2018 promethazine (PHENERGAN) [address] 1 suppository rectally every 6 hours as needed for Nausea. 15 suppository 3 03/25/2015 02/07/2018 pregabalin (LYRICA) 75 mg CapsuleIndications: fibromyalgia Take 1 capsule by mouth 2 times daily. For 7 days, then increase to 2 tabs twice per day Indications: Fibromyalgia 106 tablet 0 02/27/2015 06/15/2015 potassium chloride (KLOR-CON M20) 20 mEq Tab Sust.Rel. Particle/Crystal Take 20 mEq by mouth 2 times daily. 02/07/2018 milnacipran (SAVELLA) 50 mg Tablet Take 50 mg by mouth 2 times daily. 07/10/2015 calcium carbonate (TUMS) 200 mg calcium (500 mg) Tablet, Chewable Take 2 tablets by mouth daily as needed. 04/29/2021 documented as of this encounter Progress Notes * Jer Wisdom RN - 06/02/2015 4:39 AM EST 1899- Received report from Radha. 2200- Pt awake alert x4, follows command, moving all extremities, VSS, right groin site dressing changed, site soft, pulses LE palpable, Hep drip protocol in place, PTT Q2 until theraputic level reached, PACU criteria met Pt NSCU boarder in PACU. 2300- Pt C/O Headache Neuro intact service made aware, Dilaudid IV ordered modified, will monitor. 0000- Pt's headache resolving, VSS, will monitor. 0200- AM labs sent 0630- Pt's condition unchanged, VSS, A/Ox4, will give report to radha. * Esthela Ramirez RN - 06/01/2015 3:31 PM EST Pt arrived to PACU via bed. Monitors placed, alarms set and audible. 1515: Labs ordered, PTT and hemogram. 1525: Labs drawn and sent to lab. 1545: PTT result received from lab >160. Dino Martinez paged. Will redraw at 1730. 1715: IV stopped. 1730: PTT drawn and IV restarted. 1805: Feeling anxious with bedrest, medicated with Xanax. Pt watching TV, dinner ordered with dietary. Pt tolerating PO without issue. 1815: IV team called for 2nd IV for heparin gtt. 1835: IV team at bedside. 1840: Heparin gtt started. 1905: Report given to Jer JONES. documented in this encounter H&P Notes * Dino Martinez MD - 06/01/2015 1:08 PM EST Neurosurgery - Pre-op Interval H&P Ghada Ervin's condition unchanged since H&P originally performed. Patient agrees to procedure as planned. documented in this encounter Miscellaneous Notes * Plan of Care - Isela Nash RN - 06/02/2015 9:45 AM EST OUTCOME EVALUATION NOTE: OUTCOME SUMMARY: Spicer cath removed without difficulty. Ghada was up walking, ambulated without assistance around PACU. Denies c/o dizziness or increased pain with ambulation. Voided a good amount in the bathroom post spicer removal. Increased anxiety r/t being in PACU environment when mom camein to visit. Alprazolam given.RICCO Connolly in to see patient. Medicated for pain as noted. Painmed prescription given to patient along with discharge instructions. PLAN MOVING FORWARD: Discharge home today. INDIVIDUALIZED FALL PREVENTION: Assistance: Independent. Supervision: Eyes on hands on as needed. Surveillance: Purposeful hourly rounding and as noted in EMR. CPG GOAL OUTCOME EVALUATION: Problem: Pain, Acute (Adult, Obstetrics) Goal: Identify Signs and Symptoms and Related Risk Factors Signs and symptoms and related risk factors are identified upon initiation of Human Response Clinical Practice Guideline (CPG) Outcome: Ongoing (Interventions Implemented as Appropriate) 06/02/15 0944 Pain, Acute Related Risk Factors (Acute Pain) anxiety;bright light;procedures;stress;surgery Signs and Symptoms (Acute Pain) verbalization of pain descriptors * Op Note - Karlo Bass MD - 06/01/2015 2:33 PM EST Preoperative Diagnosis: Paraclinoid aneurysm on the right. Post: Same. Procedure: Stage II coil embolization of paraclinoid aneurysm on the right. Surgeon is Karlo Bass M.D. Advertising Intern is Dino Martinez M.D. Operative Note: The patient presents to the angio suite. General endotracheal anesthesia is induced. Bifemoral sites are shaved then prepped and draped in sterile fashion. A gala incision is made over the region and the right femoral artery accessed with a single-wall needle technique. A Bentson wire is passed in the vessel and over it a 6-Botswanan sheath connected to a continuous heparinized flush solution. A 6-Botswanan guide catheter is transnavigated over an 0.035 angled Glidewire to select the internal carotid artery on the right. Diagnostic runs are performed. Heparin is given as a bolus. An 0.010 microcatheter is transnavigated over an 0.014 wire to select the previously stented aneurysm. A series of coils are deployed in the aneurysm with control angiography being performed before and after coil embolization to confirm appropriate placement. After successful embolization the microcatheter is withdrawn. Final diagnostic runs are performed. The guide catheter is withdrawn, and the Mynx is used to achieve hemostasis at the puncture arteriotomy. The patient emerges from anesthesia in stable cardiodynamic condition and is transferred to the PACU for further monitoring on heparin. Supervision and Interpretation: 1. Right internal carotid artery injection, multiple intracranial projections, demonstrates the previously placed Neuroform stent intact and covering the aneurysm neck. 2. Progressive angiography during embolization demonstrates coil embolization of the paraclinoid aneurysm with preservation of regional angioarchitecture. Summary: Successful stent coil construct for a paraclinoid aneurysm on the right. * OR Attestation - Karlo Bass MD - 06/01/2015 2:30 PM EST Attestation: Case Date: 06/01/2015 I was present for the entire case and made all clinical decisions regarding care. KARLO BASS MD 06/01/2015 documented in this encounter Plan of Treatment Upcoming Encounters Date Type Department Care Team (Late st Contact Info) Description 01/24/2024 3:40 PM EDT Office Visit Cardiology at [address] [address] Rangel Willams MD [facility] [place] [address] documented as of this encounter Procedures Procedure Name Priority Date/Time Associated Diagnosis Comments APTT STAT 06/02/2015 7:25 AM EST APTT STAT 06/02/2015 5:00 AM EST APTT STAT 06/02/2015 2:45 AM EST HEMOGRAM Routine 06/02/2015 2:00 AM EST DIFFERENTIAL, AUTOMATED Routine 06/02/2015 2:00 AM EST CBC (WITH DIFF) Routine 06/02/2015 2:00 AM EST BASIC METABOLIC PANEL Routine 06/02/2015 2:00 AM EST APTT STAT 06/01/2015 10:40 PM EST APTT STAT 06/01/2015 8:30 PM EST APTT STAT 06/01/2015 5:30 PM EST HEMOGRAM Routine 06/01/2015 3:28 PM EST DIFFERENTIAL, AUTOMATED Routine 06/01/2015 3:28 PM EST APTT STAT 06/01/2015 3:28 PM EST CBC (WITH DIFF) Routine 06/01/2015 3:28 PM EST @ANGIOPLASTY-INTRAC RANIAL (WRVU 22.07) 06/01/2015 1:30 PM EST CAROTID ARTERY ANEURYSM S/P STAGE I NEUROFORM STENT PLACEMENT FOR RIGHT PAR OPHTHALMIC ARTERY ANEURYSM documented in this encounter Results * (ABNORMAL) APTT (06/02/2015 7:25 AM EST) [facility] Signature Partial Thromboplastin Time 83(H) 25 - 35 sec [facility] Comment: The recommended therapeutic range for full dose, unfractionated heparin at [facility] is 80 ? 114 seconds. The use of the anti-Xa (heparin) level rather than the PTT is recommended for monitoring anticoagulation intensity in critically ill patients receiving unfractionated heparin by continuous IV infusion. Blood specimen (specimen) 06/02/2015 7:25 AM EST 06/02/2015 8:28 AM EST Narrative Resulting Agency Comment Spec In Lab Karlo Bass MD HEMATOLOGY ORDERABLE S Performing Organization Address [facility] Phone Number Expe[employer]OS[employer] ANTON[employer] * (ABNORMAL) APTT (06/02/2015 5:00 AM EST) [facility] Signature Partial Thromboplastin Time 86(H) 25 - [address] [facility] Comment: The recommended therapeutic range for full dose, unfractionated heparin at [facility] is 80 ? 114 seconds. The use of the anti-Xa (heparin) level rather than the PTT is recommended for monitoring anticoagulation intensity in critically ill patients receiving unfractionated heparin by continuous IV infusion. Blood specimen (specimen) 06/02/2015 5:00 AM EST 06/02/2015 5:15 AM EST Narrative Resulting Agency Comment Spec In Lab Karlo Bass MD HEMATOLOGY ORDERABLE S Performing Organization Address [facility] Phone Number [employer] * (ABNORMAL) APTT (06/02/2015 2:45 AM EST) [facility] Signature Partial Thromboplastin Time 58(H) 25 - [address] [facility] Comment: The recommended therapeutic range for full dose, unfractionated heparin at [facility] is 80 ? 114 seconds. The use of the anti-Xa (heparin) level rather than the PTT is recommended for monitoring anticoagulation intensity in critically ill patients receiving unfractionated heparin by continuous IV infusion. Blood specimen (specimen) 06/02/2015 2:45 AM EST 06/02/2015 2:54 AM EST Narrative Resulting Agency Comment Spec In Lab Karlo Bass MD HEMATOLOGY ORDERABLE S Performing Organization Address [facility] de Phone Number ExperentiNER MILLENNIUM * Differential, Automated (06/02/2015 2:00 AM EST) Neutrophil % 69.2 % CERNER MILLENNIUM Neutrophil Absolute 6.14 1.50 - 6.30 x10(3)/mcL CERNER MILLENNIUM Lymph % 24.5 % CERNER MILLENNIUM Lymphocytes Abs 2.2 1.0 - 3.6 x10(3)/mcL CERNER MILLENNIUM Monocyte % 5.8 % CERNER MILLENNIUM Monocyte Abs 0.5 0.2 - 1.0 x10(3)/mcL CERNER MILLENNIUM Eos % 0.3 % CERNER MILLENNIUM Eosinophils Abs 0.0 0.0 - 0.5 x10(3)/mcL CERNER MILLENNIUM Basophil % 0.1 % CERNER MILLENNIUM Baso Absolute 0.0 0.0 - 0.2 x10(3)/mcL CERNER MILLENNIUM Immature Gran % 0.10 % CERN ER MILLENNIUM Comment: Immature granulocytes(IG's)percentage and absolute count will include metamyelocytes, myelocytes, and promyelocytes. Blood smears from CBCs yielding IG's will be scanned manually for concordance. If this scan disagrees with the automated IG or if promyelocytes are noted, a manual differential will be performed. Immature Gran Absolute 0.01 0.00 - 0.05 x10(3)/mcL CERNER MILLENNIUM Blood specimen (specimen) 06/02/2015 2:00 AM EST 06/02/2015 2:14 AM EST Narrative Resulting Agency Comment Spec In Lab Karlo Bass MD HEMATOLOGY ORDERABLE S CERJOSÉ ANTONIO NAVAENNIUM * (ABNORMAL) Hemogram (06/02/2015 2:00 AM EST) White Blood Cell 8.9 4.0 - 10.0 x10(3)/mc L CERNER MILLENNIUM Red Blood Cell 3.64(L) 3.93 - 5.22 x10(6)/mc L CERNER MILLENNIUM Hemoglobin 11.9 11.2 - 15.7 gm/dL CERNER MILLENNIUM Hematocrit 35.9 34.0 - 45.0 % CERNER MILLENNIUM Mean Cell Volume 98.6(H) 79.0 - 94.0 fL CERNER MILLENNIUM Mean Cell Hemoglobin 32.7(H) 26.6 - 32.2 pg CERNER MILLENNIUM Mean Cell Hemoglobin Concentration 33.1 32.0 - 36.5 gm/dL CERNER MILLENNIUM Platelet 253 145 - 370 x10(3)/mc L CERNER MILLENNIUM RDW Standard Deviation 45.4 35.0 - 46.0 fL CERNER MILLENNIUM RDW coefficient of variation 12.5 10.9 - 14.4 % CERNER MILLENNIUM Mean Platelet Volume 11.2 9.0 - 12.0 fL CERNER MILLENNIUM Blood specimen (specimen) 06/02/2015 2:00 AM EST 06/02/2015 2:14 AM EST Narrative Resulting Agency Comment Spec In Lab Karlo Bass MD HEMATOLOGY ORDERABLE S CERNER MILLENNIUM * (ABNORMAL) Basic Metabolic Panel (non-fasting) (06/02/2015 2:00 AM EST) [facility] Glucose 135 65 - 199 mg/dL CERNER MILLENNIUM Comment:Diabetes: >=200 mg/d L plus symptoms Blood Urea Nitrogen 12 8 - 18 mg/dL CERNER MILLENNIUM Creatinine 0.59(L) 0.70 - 1.20 mg/dL CERNER MILLENNIUM Comment: Please note that the pediatric reference intervals supplied above were not validated at [facility]. Results from pediatric patients should be interpreted in conjunction to the patient's age, height and muscle mass. Sodium 138 135 - 145 mmol/L CERNER MILLENNIUM Potassium 4.3 3.5 - 5.0 mmol/L CERNER MILLENNIUM Comment: Please note: ??Patients with WBC >100,000 may have falsely elevated Potassium levels. ??For accurate Potassium quantification in these patients send serum separator tube (gold top) for subsequent determinations. ??Contact the Clinical Chemistry Laboratory if there are any questions. Chloride 101 98 - 107 mmol/L CERNER MILLENNIUM Carbon Dioxide 25 22 - 31 mmol/L CERNER MILLENNIUM Anion Gap 12 5 - 15 mmol/L CERNER MILLENNIUM Calcium 8.5 8.5 - 10.5 mg/dL CERNER MILLENNIUM Est Glomerular Filtration Rate >60 >=60 CERNER MILLENNIUM Comment: This estimated GFR (eGFR) value was calculated using the MDRD equation which has been validated on patients between the ages of 18 and 70. The MDRD should not be used to assess kidney function in patients < 18 years of age or in patients with extremes of body mass, or in patients with acute kidney failure. This value should be multiplied by 1.2 for patients. For further information please copy and paste the following links into your internet browser. [email or web address] Blood specimen (specimen) 06/02/2015 2:00 AM EST 06/02/2015 2:14 AM EST Narrative Resulting Agency Comment Spec In Lab Karlo Bass MD CHEMISTRY ORDERABLES Performing Organization Address [facility] de Phone Number [facility] * (ABNORMAL) APTT (06/01/2015 10:40 PM EST) Partial Thromboplastin Time 48(H) 25 - 35 sec [facility] Comment: The recommended therapeutic range for full dose, unfractionated heparin at [facility] is 80 ? 114 seconds. The use of the anti-Xa (heparin) level rather than the PTT is recommended for monitoring anticoagulation intensity in critically ill patients receiving unfractionated heparin by continuous IV infusion. Blood specimen (specimen) 06/01/2015 10:40 PM EST 06/01/2015 10:45 PM EST Narrative Resulting Agency Comment Spec In Lab Karlo Bass MD HEMATOLOGY ORDERABLE S Performing Organization Address [facility] de Phone Number [facility] * (ABNORMAL) APTT (06/01/2015 8:30 PM EST) Partial Thromboplastin Time 46(H) 25 - 35 sec [facility] Comment: The recommended therapeutic range for full dose, unfractionated heparin at [facility] is 80 ? 114 seconds. The use of the anti-Xa (heparin) level rather than the PTT is recommended for monitoring anticoagulation intensity in critically ill patients receiving unfractionated heparin by continuous IV infusion. Blood specimen (specimen) 06/01/2015 8:30 PM EST 06/01/2015 8:30 PM EST Narrative Resulting Agency Comment Spec In Lab Karlo Bass MD HEMATOLOGY ORDERABLE S Performing Organization Address City/[facility]/ZIP Co de Phone Number THERESA SANABRIAIUM * (ABNORMAL) APTT (06/01/2015 5:30 PM EST) Pathologist [facility] Partial Thromboplastin Time 45(H) 25 - 35 sec [facility]ERNER ELIJAHENNIUM Comment: The recommended therapeutic range for full dose, unfractionated heparin at [facility] is 80 ? 114 seconds. The use of the anti-Xa (heparin) level rather than the PTT is recommended for monitoring anticoagulation intensity in critically ill patients receiving unfractionated heparin by continuous IV infusion. Blood specimen (specimen) 06/01/2015 5:30 PM EST 06/01/2015 5:51 PM EST Narrative Resulting Agency Comment Spec In Lab Karlo Bass MD HEMATOLOGY ORDERABLE S Performing Organization Address City/[facility]/ZIP Co de Phone Number THERESA HAWTHORNE * Differential, Automated (06/01/2015 3:28 PM EST) Pathologist [facility] Neutrophil % 71.9 % CERNER MILLENNIUM Neutrophil Absolute 6.05 1.50 - 6.30 x10(3)/mcL CERNER MILLENNIUM Lymph % 21.2 % CERNER MILLENNIUM Lymphocytes Abs 1.8 1.0 - 3.6 x10(3)/mcL CERNER MILLENNIUM Monocyte % 3.8 % CERNER MILLENNIUM Monocyte Abs 0.3 0.2 - 1.0 x10(3)/mcL CERNER MILLENNIUM Eos % 2.8 % CERNER MILLENNIUM Eosinophils Abs 0.2 0.0 - 0.5 x10(3)/mcL CERNER MILLENNIUM Basophil % 0.1 % CERNER MILLENNIUM Baso Absolute 0.0 0.0 - 0.2 x10(3)/mcL CERNER MILLENNIUM Immature Gran % 0.20 % CERN ER MILLENNIUM Comment: Immature granulocytes(IG's)percentage and absolute count will include metamyelocytes, myelocytes, and promyelocytes. Blood smears from CBCs yielding IG's will be scanned manually for concordance. If this scan disagrees with the automated IG or if promyelocytes are noted, a manual differential will be performed. Immature Gran Absolute 0.02 0.00 - 0.05 x10(3)/mcL CERNER MILLENNIUM Blood specimen (specimen) 06/01/2015 3:28 PM EST 06/01/2015 3:33 PM EST Narrative Resulting Agency Comment Spec In Lab Karlo Bass MD HEMATOLOGY ORDERABLE S [facility]ERNER MILLENNIUM * (ABNORMAL) Hemogram (06/01/2015 3:28 PM EST) White Blood Cell 8.4 4.0 - 10.0 x10(3)/mc L CERNER MILLENNIUM Red Blood Cell 3.64(L) 3.93 - 5.22 x10(6)/mc L CERNER MILLENNIUM Hemoglobin 11.8 11.2 - 15.7 gm/dL CERNER MILLENNIUM Hematocrit 35.9 34.0 - 45.0 % CERNER MILLENNIUM Mean Cell Volume 98.6(H) 79.0 - 94.0 fL CERNER MILLENNIUM Mean Cell Hemoglobin 32.4(H) 26.6 - 32.2 pg CERNER MILLENNIUM Mean Cell Hemoglobin Concentration 32.9 32.0 - 36.5 gm/dL CERNER MILLENNIUM Platelet 219 145 - 370 x10(3)/mc L CERNER MILLENNIUM RDW Standard Deviation 45.9 35.0 - 46.0 fL CERNER MILLENNIUM RDW coefficient of variation 12.7 10.9 - 14.4 % CERNER MILLENNIUM Mean Platelet Volume 11.0 9.0 - 12.0 fL CERNER MILLENNIUM Blood specimen (specimen) 06/01/2015 3:28 PM EST 06/01/2015 3:33 PM EST Narrative Resulting Agency Comment Spec In Lab Karlo Bass MD HEMATOLOGY ORDERABLE S Performing Organization Address [facility] Co de Phone Number THERESA HAWTHORNE * (ABNORMAL) APTT (06/01/2015 3:28 PM EST) Partial Thromboplastin Time >160.0(Cr itical) 25 - 35 THERESA HAWTHORNE Comment: Called by: NORA, Read back by: Esthela Ramirez, Date/Time:06/01/15 16:04. The recommended therapeutic range for full dose, unfractionated heparin at [facility] is 80 ? 114 seconds. The use of the anti-Xa (heparin) level rather than the PTT is recommended for monitoring anticoagulation intensity in critically ill patients receiving unfractionated heparin by continuous IV infusion. Blood specimen (specimen) 06/01/2015 3:28 PM EST 06/01/2015 3:33 PM EST Narrative Resulting Agency Comment Spec In Lab Karlo Bass MD HEMATOLOGY ORDERABLE S Performing Organization Address [facility] Co de Phone Number THERESA HAWTHORNE documented in this encounter Visit Diagnoses Diagnosis Intracranial aneurysm Cerebral aneurysm, nonruptured documented in this encounter Administered Medications Inactive Administered Medications - up to 3 most recent administrations Medication Order MAR Action Action Date Dose Rate Site acetaminophen (TYLENOL) tablet 650 mg 650 mg, Oral, EVERY 4 HOURS PRN, Starting on Mon06/01/15 at 1458, Until Mon06/02/15 at 1428, Pain, mild pain, May repeat once in 30 minutes if desired effect not achieved. Do not exceed 4000 mg acetaminophen per day. Mild pain (1-3)., Routine Given 06/02/2015 7:56 AM EST 650 mg Given 06/02/2015 4:38 AM EST 650 mg Given 06/01/2015 10:57 PM EST 650 mg ALPRAZolam (XANAX) tablet 0.5 mg 0.5 mg, Oral, DAILY PRN, Starting on Mon06/01/15 at 1803, Until Mon06/02/15 at 1428, Sleep, Anxiety, no more than 10 per month, Routine Given 06/02/2015 9:14 AM EST 0.5 mg Given 06/01/2015 6:05 PM EST 0.5 mg aspirin tablet 325 mg 325 mg, Oral, DAILY, First dose on Mon06/02/15 at 0900, Until Discontinued, Routine Given 06/02/2015 10:23 AM EST 325 mg clopidogrel (PLAVIX) tablet 75 mg 75 mg, Oral, DAILY, First dose on Mon06/02/15 at 0900, Until Discontinued, Routine Given 06/02/2015 9:11 AM EST 75 mg cyproheptadine (PERIACTIN) tablet 4 mg 4 mg, Oral, NIGHTLY, First dose on Mon06/01/15 at 2200, Until Discontinued, Routine Given 06/01/2015 10:53 PM EST 4 mg heparin 25,000 units in dextrose 5% 500 mL infusion 10 Units/kg/hr ? 74.8 kg (14.96 mL/hr, rounded to 15 mL/hr), Intravenous, CONTINUOUS, Starting on Mon06/01/15 at 1515, Until Mon06/02/15 at 1428, Initial heparin rate 10 Units/kg/hr Target PTT = 60-80 seconds PTT less than 60 seconds- Increase heparin IV infusion by 100 units/hour = 2 mL/hr PTT 60 to 80 seconds- Continue heparin IV infusion PTT 81 to 100 seconds- Decrease heparin IV infusion by 100 units/hour = 2 mL/hr PTT 101 to 120 seconds- Hold infusion for 1 hour and decrease heparin IV infusion by 150 units/hour = 3 mL/hr upon re-initiation of infusion PTT Greater than 120 seconds- Stop infusion and call prescriber to change dosage , Routine Rate/Dose Change 06/02/2015 9:32 AM EST 850 Units/kg/hr 1271.6 mL/hr Rate/Dose Change 06/02/2015 5:30 AM EST 12.701 Units/kg/hr 19 mL/hr Rate/Dose Change 06/02/2015 3:00 AM EST 14.037 Units/kg/hr 21 mL/hr HYDROmorphone (DILAUDID) injection 0.2 mg 0.2 mg, Intravenous, EVERY 1 HOUR PRN, Starting on Mon06/01/15 at 2329, Until Mon06/02/15 at 0932, Pain, breakthrough pain, Give only if patient is awake/alert., Routine Given 06/02/2015 9:03 AM EST 0.2 mg Given 06/02/2015 6:16 AM EST 0.2 mg Given 06/02/2015 5:00 AM EST 0.2 mg HYDROmorphone (DILAUDID) syringe 0.2-0.4 mg 0.2-0.4 mg, Intravenous, EVERY 5 MIN PRN, Pain, Starting on Mon06/01/15 at 1452, Until Mon06/01/15 at 2250, For moderate pain (4-6) give: 0.2 mg every 5 minute prn For severe pain (7-10) give: 0.4 mg every 5 minutes prn Maximum dose: 4 mg per hour Hold for respiratory rate less than 10 per minute., PACU Recovery Given 06/01/2015 9:20 PM EST 0.4 mg Given 06/01/2015 9:15 PM EST 0.4 mg Given 06/01/2015 9:10 PM EST 0.4 mg HYDROmorphone (DILAUDID) tablet 2-4 mg 2-4 mg, Oral, EVERY 4 HOURS PRN, Starting on Mon06/02/15 at 0931, Until Mon06/02/15 at 1428, Pain, Pain 1-5 2 mg, Pain 6-10 4 mg, Routine Given 06/02/2015 11:01 AM EST 4 mg lactated ringers infusion 1,000 mL 1,000 mL, at 100 mL/hr, Intravenous, CONTINUOUS, Starting on Mon06/01/15 at 1245, Until Mon06/01/15 at 1909, Day of Surgery (Day of Procedure) New Bag 06/01/2015 12:52 PM EST 1,000 mLs 100 mL/hr ondansetron (ZOFRAN) injection 4 mg 4 mg, Intravenous, EVERY 30 MIN PRN, Starting on Mon06/01/15 at 1435, Until Mon06/01/15 at 1909, Nausea, May repeat 4 mg once in 30 minutes. If multiple antiemetics ordered, use ondansetron first and if ineffective use prochlorperazine second and if ineffective use promethazine, PACU Recovery Given 06/01/2015 3:02 PM EST 4 mg ondansetron (ZOFRAN) injection 4 mg 4 mg, Intravenous, EVERY 8 HOURS PRN, Starting on Mon06/01/15 at 1909, Until Mon06/02/15 at 1428, Nausea, If multiple antiemetics are ordered, use ondansetron first, prochlorperazine second, and metaclopramide third. May repeat times one in 30 minutes if ineffective Given 06/02/2015 12:05 AM EST 4 mg oxyCODONE (ROXICODONE) immediate release tablet 10 mg 10 mg, Oral, EVERY 4 HOURS PRN, Starting on Mon06/01/15 at 1458, Until Mon06/01/15 at 2116, Pain, severe pain (7-10), May give an additional 5 mg in 30 minutes once if pain not relieved. Severe pain (7-10), Routine Given 06/01/2015 4:01 PM EST 10 mg oxyCODONE (ROXICODONE) immediate release tablet 5-15 mg 5-15 mg, Oral, EVERY 4 HOURS PRN, Starting on Mon06/01/15 at 2116, Until Mon06/02/15 at 0932, Pain, Administer if acetaminophen ineffective and pain >4.?May give an additional 5mg in 30 minutes if pain remains >4, and an additional 5mg in 30 minutes if pain still > 4, Routine Given 06/02/2015 7:56 AM EST 15 mg Given 06/02/2015 3:47 AM EST 15 mg Given 06/01/2015 11:00 PM EST 15 mg pantoprazole (PROTONIX) tablet 40 mg 40 mg, Oral, DAILY, First dose on Mon06/01/15 at 2200, Until Discontinued, DO NOT CRUSH OR OPEN If unable to take PO, may give IV Given 06/02/2015 9:34 AM EST 40 mg Given 06/01/2015 10:53 PM EST 40 mg potassium chloride (K-DUR/KLOR-CON) extended release tablet 20 mEq 20 mEq, Oral, 2 TIMES DAILY, First dose on Mon06/01/15 at 2100, Until Discontinued, 20 mEq tablet may be dissolved in water for administration, Routine Given 06/02/2015 11:12 AM EST 20 mEq pregabalin (LYRICA) capsule 75 mg 75 mg, Oral, 2 TIMES DAILY, First dose on Mon06/01/15 at 2200, Until Discontinued, Routine Given 06/02/2015 10:57 AM EST 75 mg Given 06/01/2015 11:48 PM EST 75 mg senna-docusate (PERICOLACE) 8.6-50 mg per tablet 2 tablet 2 tablet, Oral, 2 TIMES DAILY, First dose on Mon06/01/15 at 2200, Until Discontinued, Routine Given 06/02/2015 9:11 AM EST 2 tablets Given 06/01/2015 10:00 PM EST 2 tablets sodium chloride 0.9 % flush 5 mL 5 mL, Intravenous, 2 TIMES DAILY, First dose on Mon06/01/15 at 2100, Until Discontinued, Recovery (Recovery-Hospital Unit), Routine Given 06/01/2015 9:00 PM EST 5 mLs sodium chloride 0.9% with potassium chloride 20 mEq infusion 50 mL/hr, Intravenous, CONTINUOUS, Starting on Mon06/01/15 at 1515, Until Mon06/02/15 at 0932, Recovery (Recovery-Hospital Unit) Restarted 06/01/2015 5:30 PM EST 50 mL/hr 50 mL/ hr New Bag 06/01/2015 3:35 PM EST 50 mL/hr 50 mL/hr documented in this encounter Active and Recently Administered Medications Times are shown in EST. Scheduled Medication Order 05/31/2015 06/01/2015 06/02/2015 aspirin tablet 325 mg (CANCELED) 325 mg, Oral, DAILY, First dose on Mon06/02/15 at 0900, Until Discontinued, Routine 1023 (Given - Provid er: Isela Nash RN) clopidogrel (PLAVIX) tablet 75 mg (CANCELED) 75 mg, Oral, DAILY, First dose on Mon06/02/15 at 0900, Until Discontinued, Routine 0911 (Given - Provid er: Isela Nash RN) cyproheptadine (PERIACTIN) tablet 4 mg (CANCELED) 4 mg, Oral, NIGHTLY, First dose on Mon06/01/15 at 2200, Until Discontinued, Routine 2253 (Given - Provider: Jer Wisdom RN) pantoprazole (PROTONIX) tablet 40 mg (CANCELED)(Linked Group 1) 40 mg, Oral, DAILY, First dose on Mon06/01/15 at 2200, Until Discontinued, DO NOT CRUSH OR OPEN If unable to take PO, may give IV 2253 (Given - Provider: Jer Wisdom RN) 0934 (Given - Provider: Isela Nash RN) potassium chloride (K-DUR/KLOR-CON) extended release tablet 20 mEq (CANCELED) 20 mEq, Oral, 2 TIMES DAILY, First dose on Mon06/01/15 at 2100, Until Discontinued, 20 mEq tablet may be dissolved in water for administration, Routine 2100 (Not Given - Provider: Jer Wisdom RN - Reason: Medication not available) 1112 (Given - Provider: Isela Nash RN) pregabalin (LYRICA) capsule 75 mg (CANCELED) 75 mg, Oral, 2 TIMES DAILY, First dose on Mon06/01/15 at 2200, Until Discontinued, Routine 2348 (Given - Provider: Jer Wisdom RN) 1057 (Given - Provider: Isela Nash RN) senna-docusate (PERICOLACE) 8.6-50 mg per tablet 2 tablet (CANCELED) 2 tablet, Oral, 2 TIMES DAILY, First dose on Mon06/01/15 at 2200, Until Discontinued, Routine 2200 (Given - Provider: Jer Wisdom RN) 0911 (Given - Provider: Isela Nash RN) sodium chloride 0.9 % flush 5 mL (CANCELED) 5 mL, Intravenous, 2 TIMES DAILY, First dose on Mon06/01/15 at 2100, Until Discontinued, Recovery (Recovery-Hospital Unit), Routine 2100 (Given - Provider: Jer Wisdom RN) 0900 (Not Given - Provider: Isela Nash RN - Reason: Contraindicated) Continuous Medication Order 05/31/2015 06/01/2015 06/02/2015 heparin 25,000 units in dextrose 5% 500 mL infusion (CANCELED) 10 Units/kg/hr ? 74.8 kg (14.96 mL/hr, rounded to 15 mL/hr), Intravenous, CONTINUOUS, Starting on Mon06/01/15 at 1515, Until Mon06/02/15 at 1428, Initial heparin rate 10 Units/kg/hr Target PTT = 60-80 seconds PTT less than 60 seconds- Increase heparin IV infusion by 100 units/hour = 2 mL/hr PTT 60 to 80 seconds- Continue heparin IV infusion PTT 81 to 100 seconds- Decrease heparin IV infusion by 100 units/hour = 2 mL/hr PTT 101 to 120 seconds- Hold infusion for 1 hour and decrease heparin IV infusion by 150 units/hour = 3 mL/hr upon re-initiation of infusion PTT Greater than 120 seconds- Stop infusion and call prescriber to change dosage , Routine 1515 (Not Given - Provider: Rohith Buitrago RN - Reason: Order parameters not met)1840 (New Bag - Provider: Esthela Ramirez RN)2108 (Rate/Dose Change - Provider: Jer Wisdom RN)2335 (Rate/Dose Change - Provider: Jer Wsidom RN) 0300 (Rate/Dose Change - Provider: Jer Wisdom RN)0530 (Rate/Dose Change - Provider: Jer Wisdom RN)0932 (Rate/Dose Change - Provider: Isela Nash, ROBERT) lactated ringers infusion 1,000 mL (CANCELED) 1,000 mL, at 100 mL/hr, Intravenous, CONTINUOUS, Starting on Mon06/01/15 at 1245, Until Mon06/01/15 at 1909, Day of Surgery (Day of Procedure) 1252 (New Bag - Provider: Kalee Phillips RN)1340 (Anesthesia Volume Adjustment - Provider: Cee Mosley CRNA)1419 (Anesthesia Volume Adjustment - Provider: Cee Mosley CRNA)1446 (Anesthesia Volume Adjustment - Provider: Cee Mosley CRNA) sodium chloride 0.9% with potassium chloride 20 mEq infusion (CANCELED) 50 mL/hr, Intravenous, CONTINUOUS, Starting on Mon06/01/15 at 1515, Until Mon06/02/15 at 0932, Recovery (Recovery-Hospital Unit) 1535 (New Bag - Provider: Esthela Ramirez RN)1715 (Stopped - Provider: Esthela Ramirez RN)1730 (Restarted - Provider: Esthela Ramirez RN) 0942 (Stopped - Provider: Isela Nash RN) PRN Medication Order 05/31/2015 06/01/2015 06/02/2015 acetaminophen (TYLENOL) tablet 650 mg (CANCELED)(Linked Group 2) 650 mg, Oral, EVERY 4 HOURS PRN, Starting on Mon06/01/15 at 1458, Until Mon06/02/15 at 1428, Pain, mild pain, May repeat once in 30 minutes if desired effect not achieved. Do not exceed 4000 mg acetaminophen per day. Mild pain (1-3)., Routine 1601 (Given - Provider: Esthela Ramirez RN)2257 (Given - Provider: Jer Wisdom RN) 0438 (Given - Provider: Jer Wisdom RN)0756 (Given - Provider: Isela Nash, ROBERT) ALPRAZolam (XANAX) tablet 0.5 mg (CANCELED) 0.5 mg, Oral, DAILY PRN, Starting on Mon06/01/15 at 1803, Until Mon06/02/15 at 1428, Sleep, Anxiety, no more than 10 per month, Routine 1805 (Given - Provider: Esthela Ramirez RN) 0914 (Given - Provider: Isela Nash RN) HYDROmorphone (DILAUDID) injection 0.2 mg (CANCELED) 0.2 mg, Intravenous, EVERY 1 HOUR PRN, Starting on Mon06/01/15 at 2329, Until Mon06/02/15 at 0932, Pain, breakthrough pain, Give only if patient is awake/alert., Routine 1155 (Given - Provider: Jer Wisdom RN) 0000 (Given - Provider: Jer Wisdom RN)0100 (Given - Provider: Jer Wisdom RN)0250 (Given - Provider: Marla Ojeda RN)0350 (Given - Provider: Jer Wisdom RN)0450 (Given - Provider: Jer Wisdom RN)0500 (Given - Provider: Jer Wisdom RN)0616 (Given - Provider: Jer Wisdom RN)0903 (Given - Provider: Isela Nash RN) HYDROmorphone (DILAUDID) syringe 0.2-0.4 mg (CANCELED) 0.2-0.4 mg, Intravenous, EVERY 5 MIN PRN, Pain, Starting on Mon06/01/15 at 1452, Until Mon06/01/15 at 2250, For moderate pain (4-6) give: 0.2 mg every 5 minute prn For severe pain (7-10) give: 0.4 mg every 5 minutes prn Maximum dose: 4 mg per hour Hold for respiratory rate less than 10 per minute., PACU Recovery 1515 (Given - Provider: Esthela Ramirez RN)1537 (Given - Provider: Esthela Ramirez RN)1604 (Given - Provider: Esthela Ramirez RN)1609 (Given - Provider: Esthela Ramirez RN)1640 (Given - Provider: Rohith Buitrago RN)1751 (Given - Provider: Esthela Ramirez RN)1758 (Given - Provider: Esthela Ramirez RN)1854 (Given - Provider: Esthela Ramirez RN)1900 (Given - Provider: Jer Wisdom RN)1904 (Given - Provider: Jer Wisdom RN)191 (Given - Provider: Jer Wisdom RN)1934 (Given - Provider: Jer Wisdom RN)1939 (Given - Provider: Jer Wisdom RN)1999 (Given - Provider: Jer Wisdom RN)2004 (Given - Provider: Jer Wisdom RN)2009 (Given - Provider: Jer Wisdom RN)2099 (Given - Provider: Jer Wisdom RN)2104 (Given - Provider: Jer Wisdom RN)2109 (Given - Provider: Jer Wisdom RN)2114 (Given - Provider: Jer Wisdom RN)2119 (Given - Provider: Jer Wisdom RN) HYDROmorphone (DILAUDID) tablet 2-4 mg 2-4 mg, Oral, EVERY 4 HOURS PRN, Starting on Mon06/02/15 at 0931, Until Mon06/02/15 at 1428, Pain, Pain 1-5 2 mg, Pain 6-10 4 mg, Routine 1101 (Given - Provider: Isela Nash RN) ondansetron (ZOFRAN) injection 4 mg (CANCELED) 4 mg, Intravenous, EVERY 30 MIN PRN, Starting on Mon06/01/15 at 1435, Until Mon06/01/15 at 1909, Nausea, May repeat 4 mg once in 30 minutes. If multiple antiemetics ordered, use ondansetron first and if ineffective use prochlorperazine second and if ineffective use promethazine, PACU Recovery 1502 (Given - Provider: Esthela Ramirez RN) ondansetron (ZOFRAN) injection 4 mg (CANCELED)(Linked Group 3) 4 mg, Intravenous, EVERY 8 HOURS PRN, Starting on Mon06/01/15 at 1909, Until Mon06/02/15 at 1428, Nausea, If multiple antiemetics are ordered, use ondansetron first, prochlorperazine second, and metaclopramide third. May repeat times one in 30 minutes if ineffective 0005 (Given - Provider: Jer Wisdom RN) oxyCODONE (ROXICODONE) immediate release tablet 10 mg (CANCELED)(Linked Group 4) 10 mg, Oral, EVERY 4 HOURS PRN, Starting on Mon06/01/15 at 1458, Until Mon06/01/15 at 2116, Pain, severe pain (7-10), May give an additional 5 mg in 30 minutes once if pain not relieved. Severe pain (7-10), Routine 1601 (Given - Provider: Esthela Ramirez RN) oxyCODONE (ROXICODONE) immediate release tablet 5-15 mg (CANCELED) 5-15 mg, Oral, EVERY 4 HOURS PRN, Starting on Mon06/01/15 at 2116, Until Mon06/02/15 at 0932, Pain, Administer if acetaminophen ineffective and pain >4.?May give an additional 5mg in 30 minutes if pain remains >4, and an additional 5mg in 30 minutes if pain still > 4, Routine 2300 (Given - Provider: Jer Wisdom RN) 0347 (Given - Provider: Jer Wisdom RN)0756 (Given - Provider: Isela Nash RN) Linked Groups Order Group 1: pantoprazole (PROTONIX) tablet 40 mg (CANCELED)Jump to med 40 mg, Oral, DAILY, First dose on Mon06/01/15 at 2200, Until Discontinued, DO NOT CRUSH OR OPEN If unable to take PO, may give IV Or pantoprazole (PROTONIX) injection 40 mg (CANCELED) 40 mg, Intravenous, DAILY, First dose on Mon06/01/15 at 2200, Until Discontinued, Reconstitute with 10 mL of normal saline to a concentration of 4 mg/mL and infuse slowly over 2 minutes., Routine Group 2: acetaminophen (TYLENOL) tablet 650 mg (CANCELED)Jump to med 650 mg, Oral, EVERY 4 HOURS PRN, Starting on Mon06/01/15 at 1458, Until Mon06/02/15 at 1428, Pain, mild pain, May repeat once in 30 minutes if desired effect not achieved. Do not exceed 4000 mg acetaminophen per day. Mild pain (1-3)., Routine Or acetaminophen (TYLENOL) suppository 650 mg (CANCELED) 650 mg, Rectal, EVERY 4 HOURS PRN, Starting on Mon06/01/15 at 1458, Until Mon06/02/15 at 1428, Pain, mild pain, Give per rectum (TX) if unable to take PO. May repeat once in 30 minutes if desired effect not achieved. Do not exceed 4000 mg acetaminophen per day. Mild pain (1-3)., Routine Group 3: ondansetron (ZOFRAN) tablet 4 mg (CANCELED) 4 mg, Oral, EVERY 8 HOURS PRN, Starting on Mon06/01/15 at 1909, Until Mon06/02/15 at 1428, Nausea, Vomiting, If multiple antiemetics are ordered, use ondansetron first, prochlorperazine second, and metaclopramide third. PO Preferred. If patient unable to take PO, may give IV if ordered. May repeat times one in 45 minutes if ineffective., Routine Or ondansetron (ZOFRAN) injection 4 mg (CANCELED)Jump to med 4 mg, Intravenous, EVERY 8 HOURS PRN, Starting on Mon06/01/15 at 1909, Until Mon06/02/15 at 1428, Nausea, If multiple antiemetics are ordered, use ondansetron first, prochlorperazine second, and metaclopramide third. May repeat times one in 30 minutes if ineffective Group 4: oxyCODONE (ROXICODONE) immediate release tablet 5 mg (CANCELED) 5 mg, Oral, EVERY 4 HOURS PRN, Starting on Mon06/01/15 at 1458, Until Mon06/01/15 at 2116, Pain, mild to moderate pain (1-6), May give an additional 5 mg in 30 minutes once if pain not relieved. Mild to moderate pain (1-6), Routine Or oxyCODONE (ROXICODONE) immediate release tablet 10 mg (CANCELED)Jump to med 10 mg, Oral, EVERY 4 HOURS PRN, Starting on Mon06/01/15 at 1458, Until Mon06/01/15 at 2116, Pain, severe pain (7-10), May give an additional 5 mg in 30 minutes once if pain not relieved. Severe pain (7-10), Routine documented in this encounter Care Teams Quality Control Systems Manager Relationship Specialty Start Date End Date Apple Quiñonez APRN PCP - General 01/14/14 06/19/16 documented as of this encounter
--- OUTSIDE RECORDS SUMMARY | 2023-12-27 19:47 | XMS_ITS | Encounter Summary ---
Author Organization [facility] [place] [address] Care Team Providers Care Photocomposing Keyboard Operator Name Role Phone Vicky Obrien Luis A ALVAREZ Primary Care Provider [phone] [phone] Encounter Details Date Type Department Care Team (Late st Contact Info) Description 09/06/2018 Ancillary Procedure [place]iology [place] [phone] Social History Tobacco Use Types Packs/Day Years [...] PM EDT Office Visit Cardiology at [address] [phone] Rangel Willams MD [facility] [place] [address] documented as of this encounter Procedures Procedure Name Priority Date/Time Associated Diagnosis Comments REQUEST FOR 2ND READ MR HEAD Routine 09/05/2018 6:26 PM EDT documented in this encounter Results * Request for 2nd read MR Head [...] on filedocumented in this encounter Care Teams Photocomposing Keyboard Operator Relationship Specialty Start Date End Date Vicky Obrien APRN PCP - General Family Medicine 08/25/17 11/21/18 documented as of this encounter
--- OUTSIDE RECORDS SUMMARY | 2023-12-27 19:47 | XMS_ITS | Encounter Summary ---
Author Organization [facility] [place] [address] Care Team Providers Care Cherry Grower Name Role Phone MicahVicky Luis A ALVAREZ Primary Care Provider [phone] [phone] Encounter Details Date Type Department Care Team (Late st Contact Info) Description 09/04/2018 Ancillary Procedure [place] [phone] Frances Sorensen APRN [address] [place], [place] [address] Social History Tobacco Use Types Packs/Day Years [...] 3:40 PM EDT Office Visit Cardiology at [address] [phone] Rangel Willams MD [facility] [place] [address] documented as of this encounter Procedures Procedure Name Priority Date/Time Associated Diagnosis Comments FILM LIBRARY STORAGE ONLY DX CHEST Routine 09/04/2018 12:00 AM EDT documented in this encounter Results * Film Library- Storage Only DX Chest (09/04/2018 12:00 AM EDT) Narrative [facility] - 08/12/2021 3:49 PM EDT This exam is auto-finalizing. It's purpose is for storage only. Frances ANSARI FILM LIBRARY ORD ERABLES [place], [place] documented in this encounter Visit Diagnoses Not on filedocumented in this encounter Care Teams Cherry Grower Relationship Specialty Start Date End Date Vicky Obrien APRN PCP - General Family Medicine 08/25/17 11/21/18 documented as of this encounter
--- OUTSIDE RECORDS SUMMARY | 2023-12-27 19:47 | XMS_ITS | Encounter Summary ---
Author Organization [facility] [place] [address] Care Team Providers Care Cabin Service Agent Name Role Phone Vicky Obrien APRN Primary Care Provider [phone] [phone] Encounter Details Date Type Department Care Team (Late st Contact Info) Description 09/06/2018 Ophth [place] [address] Tesha Burger Social History Tobacco Use Types Packs/Day Years [...] PM EDT Office Visit Cardiology at [address] [phone] Rangel Willams MD [facility] [place] [address] documented as of this encounter Visit Diagnoses Not on filedocumented in this encounter Care Teams Cabin Service Agent Relationship Specialty Start Date End Date Vicky Obrien APRN PCP - General Family Medicine 08/25/17 11/21/18 documented as of this encounter
--- OUTSIDE RECORDS SUMMARY | 2023-12-27 19:47 | XMS_ITS | Encounter Summary ---
Author Organization [facility] [place] [address] Care Team Providers Care Body Presser Name Role Phone Apple Walters APRN Primary Care Provider +1- [phone] Reason for Visit * Reason Comments Pain Management Encounter Details Date Type Department Care Team (Latest Contact Info) Description 11/25/2015 2:30 PM EDT Office [place] [phone] Ignacia Florentino CRYPTOLOGIC LINGUIST [facility] [place] [place] [address] Fibromyalgia; Other idiopathic scoliosis, thoracolumbar region; Facet arthropathy, lumbosacral Social History Tobacco Use Types Packs/Day Years [...] Sign Reading Time Taken Comments Blood Pressure 124/72 11/25/2015 2:22 PM EDT Pulse 85 11/25/2015 2:22 PM EDT Temperature - - Respiratory Rate - - Oxygen Saturation 100% 11/25/2015 2:22 PM EDT Inhaled Oxygen Concentration - - Weight 84.8 kg (187 lb) 11/25/2015 2:22 PM EDT Height 157.5 cm (5' 2) 11/25/2015 2:22 PM EDT Body Mass Index 34.2 11/25/2015 2:22 PM EDT documented in this encounter Progress Notes * Ignacia Florentino, CRYPTOLOGIC LINGUIST - 11/25/2015 2:30 PM EDT PAIN CLINIC FOLLOW-UP Ghada Ervin [id number] Reason for follow-up: Medication management Chronic Opioid Therapy Pain Management Plan signed on 09/17/14, renewed 10/28/15 UDT: 06/15/15 findings reflect reported history taken on that day The [place] and [place] Prescription Monitoring Program were checked and no [...] of Present Illness: Ms. Ervin is a 25 y.o.-year-old female, who has a history of [...] medical problems or surgeries since previous visit? PCP gave her referral to psychiatrist for medication adjustment (has been off her antidepressants and anti-anxiety medications); has contacted them, but no call back- dropped in, but they couldn't make an appointment (didn't have a phone for a while- needs to get referral from PCP) Changes in family, social, or functional history since previous visit? 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, 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 or walking Pain Quality [...] Lizz Reyes counselor ; Marijuana: smokes maybe every few days at night for pain Gabapentin restarted 09/06 400 mg tid Past therapies: Diclofenac 75 mg bid lyrica 150 mg bid (increased to 200 mg bid 06/15) stopped 09/06 due to weight gain Physical therapy: no using currently ([phone] Mario Desouza or Saira) Had lumbar MBB bilateral 04/20/15 without improvement in pain Gabapentin 300-300-900 stopped in 03/08 Savella (stopped on own, didn't like the way she felt on it) Depression:okay Sleep: up and down- restless legs/body at night Smoking: quit July 2015! No smoking Alcohol: maybe once a month Functional Status: busy with her young children Medications 11/25/15 1424 Medication Sig Taking? oxyCODONE-acetaminophen (PERCOCET) 10-325 mg Tablet Take 1 tablet by mouth every 4 hours as needed for Pain. NTE 4 per day; Indications: Pain Yes gabapentin (NEURONTIN) 400 mg Capsule Take 1 capsule by mouth 3 times daily. Yes acetaminophen (TYLENOL) 325 mg Tablet Take [...] tablets by mouth daily as needed. Yes cyclobenzaprine (FLEXERIL) 10 mg Tablet Take 1 tablet by mouth nightly as needed for up to 30 days. Addiction Behaviors Checklist (NA = not assessed) Addiction behaviors--since last visit 1. Patient used illicit drugs or evidences problem drinking* yes 2. Patient has hoarded meds no 3. Patient used more narcotic than prescribed no 4. Patient ran out of meds early yes 5. Patient has increased use of narcotics [...] Patient reports minimal/inadequate relief from narcotic analgesic yes 11. Patient indicated difficulty with using medication agreement no Other 1. Significant others express concern over patient???s use of analgesics no ABC Score: ____3__ Score of >=3 indicates possible inappropriate opioid use and should flag for further examinationof specific signs of misuse and more careful patient monitoring (i.e., urine screening, pill counts, removal of opioid). . Review of Systems Constitutional Denies weight loss or gain, fevers, chills, nightsweats +chronic Headaches which areworsening- asking for referral back to headache clinic Cardiovascular Denies chest pain, palpitations Respiratory Denies cough, SOB, PADRON;; no other URI symptoms GI/ Denies constipation, diarrhea, nausea, vomiting, GERD, incontinence; Musculoskeletal Knee pain- no fall Neurologic ,No seizures, memory loss. paresthesia Hormonal had tubal ligation in 06/08 Vitals: 11/25/15 1422 BP: 124/72 Pulse: 85 Physical Exam Constitutional Seen with boyfriend , alert and oriented, cooperative Psychiatric has good eye contact and a full range of affect. Lungs unlabored breathing Cardiac Musculoskeletal Ambulates without cane COMPARISON: MRI lumbar [...] fibromyalgia on percocet 10/325 4 times per day. Please see below discussion Plan/Recommendations//Discussion: Planned to do UDT today- she states oxycodone last night around 6 pm, expect THC- When I asked if Tan find anything else, she admitted that she tried heroin once in the past few days, she was tino lot of pain and someone convinced her to try it (snorted). States she is ashamed and didn't likethe way she felt. Stated she wanted to be honest with me, but is afraid I'll take away her oxycodone. We had a long talk about the fact that she's been on opioids since her teen age years and has opioid dependence. It's concerning that she tried heroin. She was on methadone when she was and is familiar with the [facility] program in [facility]. I agreed to give her the oxycodone prescriptiontoday for #112 (10 mg QID) but told her this is the last opioid prescription I will give her. She ne eds to taper down to 3 per day, then 2 per day, then 1 per day and make it last until she is seen at the [facility] program for substance abuse. She agreed to call and get an appointment as soon as possible. She will let me know if she needs my help with a referral. We also discussed that she continues to use marijuana illegally and I filled out the medical cannabis paperwork for her. She needs to file that paperwork so she can use it legally. Finances have genevieve problem but she says they are improving. Explained she doesn't need referral to neurology for her headaches - she is already a patient of neurology I explained that I will continue to care for her and use non-opioid methods of pain management. Lethawill make a follow up appointment with me. Ignacia Florentino, DNP, ANP, CRYPTOLOGIC LINGUIST documented in this encounter Plan of Treatment Upcoming Encounters Date Type Department Care Team (Late st Contact Info) Description 01/24/2024 3:40 PM EDT Office Visit Cardiology at [address] [phone] Rangel Willams MD [facility] [place] [address] documented as of this encounter Visit Diagnoses Diagnosis Fibromyalgia Mylagia and myositis, unspecified Other idiopathic scoliosis, thoracolumbar region Facet arthropathy, lumbosacral Lumbosacral spondylosis without myelopathy documented in this encounter Care Teams Body Presser Relationship Specialty Start Date End Date Apple Walters APRN PCP - General 01/14/14 06/19/16 documented as of this encounter
--- OUTSIDE RECORDS SUMMARY | 2023-12-27 19:47 | XMS_ITS | Encounter Summary ---
Author Organization [facility] [place] [address] Care Team Providers Care Finish Machine Tender Name Role Phone Apple Walters APRN Primary Care Provider +1- [phone] Reason for Referral * Physical Therapy (Routine) - Specialty Diagnoses / Procedures Referred By Lang sanches Referred To Contact Physical Therapy Diagnoses Chronic back pain Fibromyalgia Ignacia Florentino TENNIS CAMP INSTRUCTOR [facility] [place] [address] Referral ID Status Reason Start Date Expiration Date V isits Requested Visits Authorized [id number] Evaluate and Treat 07/10/2015 01/06/2016 12 12 Reason for Visit * Reason Comments Pain Management Back Pain Encounter Details Date Type Department Care Team (Late st Contact Info) Description 07/10/2015 11:30 AM EDT Office Visit Pain Management at [place] [phone] Ignacia Florentino [facility] [place] [address] Chronic back pain; Fibromyalgia Social History Tobacco Use Types Packs/Day Years [...] Sign Reading Time Taken Comments Blood Pressure 150/95 07/10/2015 11:28 AM EDT Pulse 103 07/10/2015 11:28 AM EDT Temperature - - Respiratory Rate - - Oxygen Saturation 100% 07/10/2015 11:28 AM EDT Inhaled Oxygen Concentration - - Weight 83.7 kg (184 lb 9.6 oz) 07/10/2015 11:28 AM EDT Height 157.5 cm (5' 2) 07/10/2015 11:28 AM EDT Body Mass Index 33.76 07/10/2015 11:28 AM EDT documented in this encounter Progress Notes * Ignacia Florentino, KIM - 07/10/2015 11:39 AM EDT PAIN CLINIC FOLLOW-UP Ghada Ervin [id number] Reason for follow-up: Medication management Chronic Opioid Therapy Pain Management Plan signed on 09/17/14 UDT: 06/15/15 findings reflect reported history taken on that day The [place] and [place] Prescription Monitoring Program were checked [...] one of which was frozen in 2014. 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 Had 2nd surgery for coil insertion for right para opthalmic artery aneurysm 06/01/15 Headaches haven't completely resolved- seeing neurosurgeon after this visit; ? Migraines always right sided, vision has improved; seeing cte teacher soon Has noted increased pain and sensitivity- off lyrica for a few days because she ran out and needed prior authorization Changes in family, social, or functional history since previous visit? 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 or walking Pain Quality is described as constant, achy, constant shooting in the hips Pain Exacerbating/relieving activities: worse with driving, bending, lifting, better with heat and meds Rated as 7-8/10 on average with meds- can go up to a 10 New mattress helps discomfort at night Current treatment: Percocet 10/325 no more than 4 per day (increased to 5 per day in 04/07 due to headache) Physical therapy: no using currently ([phone] Mario Desouza or Saira) Counseling/therapy: hasn't seen [...] to headaches - mother providing transportation Medications 07/10/15 1130 Medication Sig Taking? acetaminophen (TYLENOL) 325 mg Tablet Take 2 [...] tablets by mouth daily as needed. Yes pregabalin (LYRICA) 200 mg Capsule Take 1 capsule by mouth 2 times daily. For 7 days, then increaseto 2 tabs twice per day Indications: Fibromyalgia oxyCODONE-acetaminophen (PERCOCET) 10-325 mg Tablet Take 1 tablet by mouth every 4 hours as needed for Pain for up to 28 days. NTE 5 per day HYDROmorphone (DILAUDID) 2 mg Tablet Take 1-2 tablets by mouth every 4 hours as needed for Pain. Review of Systems Constitutional Denies weight loss or gain, fevers, chills, nightsweats + headaches- Cardiovascular Denies chest pain, palpitations Respiratory Denies cough, SOB, PADRON;; no other URI symptoms GI/ Denies constipation, diarrhea, nausea, vomiting, GERD, incontinence; Musculoskeletal Right leg weakness improved, no longer using cane Neurologic ,No seizures, memory loss. paresthesia Hormonal had tubal ligation in 06/08 Physical Exam Constitutional Seen with her friend , alert and oriented, cooperative Psychiatric has [...] aneurysm Working with neurology to manage migraines. Had 2nd surgery foraneurysm. Quit smoking. No concerning behaviors/side effects of opioid use. Rheumatology confirmed fibromyalgia. Plan/Recommendations//Discussion: Renew percocet 10/325 NTE temporarily increased to 5 per day. #28 days We agreed next month to go back down to 4 per day. Talked about medical cannabis- discussed she needs to use legally- she will bring paperwork with her next visit. (couldn't find it on line last time) Met her goal to stop smoking. She will follow up with neurology for migraine management Follow up in 28 days with me Ghada had an opportunity to ask questions. Ignacia Florentino DNP, ANP, TENNIS CAMP INSTRUCTOR documented in this encounter Plan of Treatment Upcoming Encounters Date Type Department Care Team (Late st Contact Info) Description 01/24/2024 3:40 PM EDT Office Visit Cardiology at [address] [phone] Rangel Willams MD [facility] [place] [address] Scheduled Referrals Name Type Priority Associated Diagnoses Orde r Schedule Referral to Physical Therapy Outpatient Referral Routine Chronic back pain Fibromyalgia Ordered: 07/10/2015 documented as of this encounter Visit Diagnoses Diagnosis Chronic back pain Backache, unspecified Fibromyalgia Mylagia and myositis, unspecified documented in this encounter Care Teams Finish Machine Tender Relationship Specialty Start Date End Date Apple Walters APRN PCP - General 01/14/14 06/19/16 documented as of this encounter
--- OUTSIDE RECORDS SUMMARY | 2023-12-27 19:47 | XMS_ITS | Encounter Summary ---
Author Organization [facility] [place] [address] Care Team Providers Care Instructor Knitting Name Role Phone Unknown Primary Care Provider Unavailabl e Encounter Details Date Type Department Care Team (Late st Contact Info) Description 11/02/2016 Orders Only Cardiology at [address] [phone] Gabby Reese APRN [facility] [place] [address] SVT (supraventricular tachycardia) Social History Tobacco Use [...] PM EDT Office Visit Cardiology at [address] [phone] Rangel Willams MD [facility] [place] [address] documented as of this encounter Visit Diagnoses Diagnosis SVT (supraventricular tachycardia) Other specified cardiac dysrhythmias documented in this encounter Care Teams Instructor Knitting Relationship Specialty Start Date End Date Unknown None PCP - General 06/20/16 02/19/17 documented as of this encounter
--- OUTSIDE RECORDS SUMMARY | 2023-12-27 19:47 | XMS_ITS | Encounter Summary ---
Author Organization [facility] [place] [address] Care Team Providers Care Gatekeeper Name Role Phone Apple Walters APRN Primary Care Provider +1- [phone] Reason for Visit * Reason Comments Follow-up Encounter Details Date Type Department Care Team (Late st Contact Info) Description 07/10/2015 1:00 PM EDT Office [place] [address] Darlene Rooney CLINICAL TRIAL MANAGER [facility] [address] Right internal carotid artery aneurysm Social History Tobacco Use Types [...] Sign Reading Time Taken Comments Blood Pressure 122/65 07/10/2015 1:00 PM EDT Pulse 103 07/10/2015 1:00 PM EDT Temperature - - Respiratory Rate - - Oxygen Saturation - - Inhaled Oxygen Concentration - - Weight 83.5 kg (184 lb) 07/10/2015 1:00 PM EDT Height 157.5 cm (5' 2) 07/10/2015 1:00 PM EDT Body Mass Index 33.65 07/10/2015 1:00 PM EDT documented in this encounter Progress Notes * Darlene Simental APRN - 07/10/2015 1:25 PM EDT HPI Returns in follow-up for stent assisted coil embolization of DOUGLAS aneurysm, treated 05/11/15 and 06/01/15, by Dr. Bass. She has a history of paternal aunt from aneurysm rupture at age 29. Heraneurysm was found as part of evaluation for migraine headaches. Feels well overall. Continues to have daily headaches. Groin site without tenderness. Tolerating dual antiplatelet therapy. Feels that right peripheral vision has improved since procedure, has formaleye exam in the next couple of weeks. We discussed recovery from her aneurysm procedure, and that at this point there are no restrictionsin terms of activity or medications. Daily headaches would not be attributable to aneurysm, and shewill follow up with Dr. Ritchie in the [facility] for ongoing management. She will finish her current prescription of Plavix and d/c, will continue ASA 325mg daily until her follow-up MRA in 6 months. A/P: Doing well post coil embolization of unruptured aneurysm. Reviewed screening recommendations for siblings and her own children. Repeat MRA 6 mos wo contrast. Follow-up with usual headache clinicprovider. documented in this encounter Plan of Treatment Upcoming Encounters Date Type Department Care Team (Late st Contact Info) Description 01/24/2024 3:40 PM EDT Office Visit Cardiology at [address] [phone] Rangel Willams MD [facility] [place] [address] documented as of this encounter Visit Diagnoses Diagnosis Right internal carotid artery aneurysm Cerebral aneurysm, nonruptured documented in this encounter Care Teams Gatekeeper Relationship Specialty Start Date End Date Apple Walters APRN PCP - General 01/14/14 06/19/16 documented as of this encounter
--- OUTSIDE RECORDS SUMMARY | 2023-12-27 19:47 | XMS_ITS | Encounter Summary ---
Author Organization [facility] [place] [address] Care Team Providers Care Software Computer Specialist Name Role Phone Apple Walters APRN Primary Care Provider +1- [phone] Encounter Details Date Type Department Care Team (Late st Contact Info) Description 10/07/2015 Orders Only [place] [address] Ignacia Watts APRN [facility] [place] [address] Social History Tobacco Use Types Packs/Day Years [...] as of this encounter Progress Notes * Ignacia Watts APRN - 10/07/2015 8:01 AM EDT Patient's medicaid ran out. She couldn't afford #112 of oxycodone- filled #40- 2nd prescription made out for balance of #72 [address] [facility] in [facility]. Ignacia Watts DNP documented in this encounter Plan of Treatment Upcoming Encounters Date Type Department Care Team (Late st Contact Info) Description 01/24/2024 3:40 PM EDT Office Visit Cardiology at [address] [phone] Rangel Willams MD [facility] [place] [address] documented as of this encounter Visit Diagnoses Not on filedocumented in this encounter Care Teams Software Computer Specialist Relationship Specialty Start Date End Date Apple Walters APRN PCP - General 01/14/14 06/19/16 documented as of this encounter
--- OUTSIDE RECORDS SUMMARY | 2023-12-27 19:47 | XMS_ITS | Encounter Summary ---
[facility] [place] [address] Care Team Providers Care Termite Treater Helper Name Role Phone ObrienVicky Luis A ALVAREZ Primary Care Provider [phone] Encounter Details Date Type Department Care Team (Late st Contact Info) Description 09/04/2018 [place] [address] Kd Ridley MD [facility] [place] [address] Social History Tobacco Use Types Packs/Day Years [...] encounter Miscellaneous Notes * Telephone Encounter - Kd Ridley MD - 09/04/2018 7:32 PM EDT I spoke with the taker out this evening from [facility] taking care of this patient. She had an MRI todaythat shows some small infarcts on DWI MRI c/w new small infarcts., No spells of HTN. Patient doing OK at this point. Suggested that the patient get an echocardiogram as a start. When a bed is available would have her transefered to the stroke service here. No bed available at [facility] either. There is abed available in the [facility], but I am not convinced that we need to use this bed this evening for her situation. That being said, if the taker out wants to transfer to this level of care, I am OK withit. Suggested getting some blood markers for vasculitis. No AFib. documented in this encounter Plan of Treatment Upcoming Encounters Date Type Department Care Team (Late st Contact Info) Description 01/24/2024 3:40 PM EDT Office Visit Cardiology at [address] [address] Rangel Willams MD [facility] [place] [address] documented as of this encounter Visit Diagnoses Not on filedocumented in this encounter Care Teams Termite Treater Helper Relationship Specialty Start Date End Date Vicky Orbien APRN PCP - General Family Medicine 08/25/17 11/21/18 documented as of this encounter
--- OUTSIDE RECORDS SUMMARY | 2023-12-27 19:48 | XMS_ITS | Encounter Summary ---
[place] [address] Care Team Providers Care Second Helper Name Role Phone Apple Walters Matthias ALVAREZ Primary Care Provider [phone] Encounter Details Date Type Department Care Team (Late st Contact Info) Description 04/14/2015 [place]phone [place] [address] Kristi Ritchie MD [facility] [place] [address] Social History Tobacco Use Types Packs/Day Years Used Date Smoking Tobacco: Every Day Cigarettes 0.5 8 Started: 11/09/2006; Last attempted to quit: 11/09/2014 Smokeless Tobacco: Never Comments:has a few cigarette s a day Alcohol Use Standard Drinks/Week Comments Yes 1 (1 standard drink = 0.6 oz pur e alcohol) occasionally Sex and Gender Information Value Date Recorded Sex Assigned at Not on file Gender Identity Not on file Sexual Orientation Not on file documented as of this encounter Miscellaneous Notes * Telephone Encounter - Kristi Ritchie MD - 04/14/2015 9:47 AM EST Spoke with patient at [phone] and discussed her MRI finding of probable right ophthalmic artery. She is aware that she is being referred to Dr. Bass of neurosurgery and will likely require further imaging either with CTA or MRA. Kristi Ritchie MD Headache Fellow [facility] Neurology documented in this encounter Plan of Treatment Upcoming Encounters Date Type Department Care Team (Late st Contact Info) Description 01/24/2024 3:40 PM EDT Office Visit Cardiology at [address] [address] Rangel Willams MD [facility] [place] [address] documented as of this encounter Visit Diagnoses Not on filedocumented in this encounter Care Teams Second Helper Relationship Specialty Start Date End Date Apple Walters APRN PCP - General 01/14/14 06/19/16 documented as of this encounter
--- OUTSIDE RECORDS SUMMARY | 2023-12-27 19:48 | XMS_ITS | Encounter Summary ---
Author Organization [facility] [place] [address] Care Team Providers Care Oem Sales Manager Name Role Phone Apple Walters APRN Primary Care Provider [phone] Reason for Visit * Reason Comments Back Pain Right Hip Pain Right Leg Pain Left Leg Pain Left Hip Pain * Surgical (Routine) - Closed Specialty Diagnoses / Procedures Referred By Contrina t Referred To Contact Pain Management Procedures PRO INJ, PARAVERTEBRAL FACET JT W/IMAGE GUID, LUMBAR/SACRAL, SINGLE LEVEL PRO INJ, PARAVERTEBRAL FACET JT, W/IMAGE GUID, LUMBAR/SACRAL, SECOND LEVEL PRO INJ PARAVERTEBRAL FACET JT W/IMAGE GUID, LUMBAR/SACRAL, 3RD OR ADDL LEVEL Reina Sanchez MD [facility] [place] [address] [facility] [place] [place] [address] Referral ID Status Reason Start Date Expiration Date Visits Re quested Visits Authorized [id number] Closed 04/06/2015 04/05/2016 1 1 Encounter Details Date Type Department Care Team (Latest Contact Info) Description 04/20/2015 3:00 PM EST Procedure [place] [address] Johnnie Morales DO [facility] [address] Spondylosis of lumbar region without myelopathy or [...] Sign Reading Time Taken Comments Blood Pressure 142/98 04/20/2015 3:24 PM EST Pulse 133 04/20/2015 3:24 PM EST Temperature - - Respiratory Rate 22 04/20/2015 3:11 PM EST Oxygen Saturation 88% 04/20/2015 3:24 PM EST Inhaled Oxygen Concentration - - Weight 71.7 kg (158 lb) 04/20/2015 3:11 PM EST Height 157.5 cm (5' 2) 04/20/2015 3:11 PM EST Body Mass Index 28.9 04/20/2015 3:11 PM EST documented in this encounter Patient Instructions * Patient Instructions* Alistair Ardon LPN - 04/20/2015 3:19 PM EST Pain Management Center Discharge Instructions: You were seen by Dr. Johnnie Morales DO who performed left lumbar medial branch block. It is normal that the injection site will be sore for up to 48 hours. You may also experience mild stiffness in the joint near the injection site. [x] You may resume your normal activities: today. You may shower today. DO NOT tub bathe, use whirlpools, hot tubs or pool therapy for 2 days. RemoveBand-Aid(s) later today/tomorrow. Do not drive until tomorrow. Use caution walking/climbing stairs as you may be unsteady on your feet. You may use your usual medications, including pain medications, as directed, unless otherwise instructed. You may use an ice pack as needed for the first 24 hours, on for 20 minutes then off for 20 minutes. Do not apply heat today. Attempt to empty your bladder 4-6 hours after your procedure. You received the following medications: Omnipaque (contrast dye) and Bupivacaine. During regular business hours, please phone the Pain Management Center at for appointments or with any questions or if the following or other troubling symptoms develop: 1) Prolonged dizziness or weakness (more than 1 day). 2) Localized swelling, redness or drainage at the injection site(s). 3) Temperature of 101 degrees that lasts for more than 4 hours. After 5 PM or on weekends, call and ask for Pain Clinic provider on-call. If you are unable to reach the Pain Management Center and have a complication, please call your Primary Care Provider or proceed to your local emergency department. Alistair Ardon LPN Special instructions Pain Management Center Post -Procedure Pain Log Patient: Ghada Ervin [id number] It is important for you to keep track of your pain after your procedure that took place 04/20/2015.This information will help your Provider to determine how to help reduce your pain. Today you had a procedure for pain in your back. Your pain level before the procedure in this area was 8/10. Your pain level immediately after your procedure was 7/10. Time Pain Score Comments 1 hour 2 hours 3 hours 4 hours Please call the nurse in the Pain Management Center a day or two after your procedure and report the information above. She will assess your response to the procedure, and will recommend appropriate follow-up. documented in this encounter Progress Notes * Alistair Ardon LPN - 04/20/2015 3:12 PM EST Pre-Procedure Screening Questions: 1. Status: No 2. 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 Yes 3. Patient taking antibiotics at present? No 4. NPO per Pain Management Center protocol? No 5. Patient diabetic: No 6. Patient routinely taking anticoagulants ? No Anticoagulant: Date Stopped: Current INR: Patient Vital Signs documented in Doc Flowsheets associated with this encounter. Patient Discharge Instructions were reviewed with patient and copy provided to patient. documented in this encounter Procedure Notes * Johnnie Morales V, DO - 04/21/2015 9:47 AM ESTAssociated Order(s): NERVE BLOCK - LUMBOSACRAL Procedure(s): NERVE BLOCK - LUMBOSACRAL Pre-Procedure Diagnose(s): Spondylosis of lumbar region without myelopathy or radiculopathy PROCEDURE NOTE LUMBAR MEDIAL BRANCH DIAGNOSTIC BLOCKS Date of Service: 04/20/2015 Patient: Ghada Ervin Referring Physician: Apple Walters Aprn Sarbjit [address] [place] [place] [address] Diagnosis: 1. Spondylosis of lumbar region without myelopathy or radiculopathy Pre-procedure Note History and Exam: Patient demonstrates today moderate to severe non- radicular back pain without neurologic deficit aggravated by hyperextension Yes Back pain greater than leg pain Yes Patient today has tenderness over the suspected joint(s) Yes History of post-traumatic injury No Hypertrophic arthropathy Yes Back pain associated with suspected motion segment instability or Hypermobility or pseudoarthrosis No Pre-testing pain score (VAS): 6 Previous medial branch block testing?: Yes, years ago at an outside hospital. Today's Operative Note Ghada Ervin was greeted by the nurse who verified the patients name and . Patient was thentaken to the fluoroscopy suite. Ms. Ervin was interviewed and the medical record was reviewed. There were no medical contraindications to performing the left lumbar medial branch nerve blocks. I first had a talk with the patient and discussed the potential risks, benefits, side effects, and alternatives of this procedure including but not limited to increased pain from the procedure, no pain relief, nerve damage, infection, and bleeding. she comprehended my conversation and accepts the risks and understands the goals of this diagnostic procedure. All questions and concerns from the patient were addressed. After I was comfortable that the patient was fully informed about this procedure, the printed consent form was signed. Standard time-out procedure was performed Ms. Ervin was placed in the prone position on the fluoroscopy table and automated blood pressure cuff and pulse oximeter were applied. The anatomic target points of the segmental medial branches of left L3, L4 and L5-DRwere identified with fluoroscopy. Following thorough Chlorhexadine preparation of the skin and draping, a 25 gauge 3.5 spinal needle was placed under fluoroscopic guidance down on to the target point for each respective segmental medial branch.Position was confirmed in A/P, oblique and lateral views. At each level we injected 0.5ml of Bupivacaine 0.5%. Ms. Ervin'becca vital signs were stable throughout the procedure and were as recorded in the docflowsheet by the nursing staff. Postoperatively, today patient demonstrates the following changes with hyperextension and with tenderness over the suspected joint(s). Provacative testing using the Sepulveda's facet loading test Left side Directly before the block VAS (0-10) = 6 5 minutes after the block VAS (0-10) = 6 Percentage relief obtained with this diagnostic block 0% Any improved physical functioning directly after the blocks? None directly after the procedure. Next, she was asked to recordher percent pain relief and any changes in provocative maneuvers for the next 4 hours. She will report this information at the next business day to one of our nurses. Based on the medial branches blocked today, if the patient meets insurance criteria for radiofrequency, the treatment should result in the denervation of the left L4-L5 and L5-S1 facet joint nerves. We would expect to denervate a total of 2 facets during the radiofrequency ablation. Discharge plan:: She will call back with her 0-4 hour post-procedure pain scores. I personally performed the entire procedure. Johnnie Morales DO, MPH ABP[facility]-subspecialty board certification in Pain Medicine Attending Physician - Pain Management CC: Apple Walters APRN [facility] [address] [place] [address] documented in this encounter Plan of Treatment Upcoming Encounters Date Type Department Care Team (Late st Contact Info) Description 01/24/2024 3:40 PM EDT Office Visit Cardiology at [address] [address] Rangel Willams MD [facility] [place] [address] documented as of this encounter Procedures Procedure Name Priority Date/Time Associated Diagnosis Comments NERVE BLOCK - LUMBOSACRAL Routine 04/21/2015 9:49 AM EST Spondylosis of lumbar region without myelopathy or radiculopathy documented in this encounter Results * NERVE BLOCK - LUMBOSACRAL (04/21/2015 9:49 AM EST) Narrative Johnnie Morales V, DO - 04/21/2015 9:49 AM EST Johnnie Morales V, DO ? 04/21/2015 ??9:49 AM PROCEDURE NOTE LUMBAR MEDIAL BRANCH DIAGNOSTIC BLOCKS Date of Service: 04/20/2015 Patient: ??Ghada Ervin ?? Referring Physician: Apple Walters Aprn Sarbjit [address] [place] [address] Diagnosis: 1. Spondylosis of lumbar region without myelopathy or radiculopathy ?? Pre-procedure Note History and Exam: Patient demonstrates today moderate to severe non- radicular back pain without neurologic deficit aggravated by hyperextension ??Yes Back pain greater than leg pain ??Yes Patient today has tenderness over the suspected joint(s) Yes History of post-traumatic injury ??No Hypertrophic arthropathy Yes Back pain associated with suspected motion segment instability or Hypermobility or pseudoarthrosis No Pre-testing pain score (VAS): 6 Previous medial branch block testing?: Yes, years ago at an outside hospital. Today's Operative Note Ghada Ervin was greeted by the nurse who verified the patients name and . ??Patient was then taken to the fluoroscopy suite. Ms. Ervin was interviewed and the medical record was reviewed. ?? There were no medical contraindications to performing the left lumbar medial branch nerve blocks. I first had a talk with the patient and discussed the potential risks, benefits, side effects, and alternatives of this procedure including but not limited to increased pain from the procedure, no pain relief, nerve damage, infection, and bleeding. ??she comprehended my conversation and accepts the risks and understands the goals of this diagnostic procedure. All questions and concerns from the patient were addressed. After I was comfortable that the patient was fully informed about this procedure, the printed consent form was signed. ??Standard time-out procedure was performed Ms. Ervin was placed in the prone position on the fluoroscopy table and automated blood pressure cuff and pulse oximeter were applied. The anatomic target points of the segmental medial branches of left L3, L4 and L5-DRwere identified with fluoroscopy. Following thorough Chlorhexadine preparation of the skin and draping, a 25 gauge 3.5 spinal needle was placed under fluoroscopic guidance down on to the target point for each respective segmental medial branch.Position was confirmed in A/P, oblique and lateral views. At each level we injected 0.5ml of Bupivacaine 0.5%. Ms. Ervin's vital signs were stable throughout the procedure and were as recorded in the docflowsheet by the nursing staff. Postoperatively, today patient demonstrates the following changes with hyperextension and with tenderness over the suspected joint(s). Provacative testing using the Sepulveda's facet loading test Left side Directly before the block VAS (0-10) = 6 5 minutes after the block VAS (0-10) = 6 Percentage relief obtained with this diagnostic block 0% Any improved physical functioning directly after the blocks? None directly after the procedure. Next, she was asked to recordher percent pain relief and any changes in provocative maneuvers for the next 4 hours. She will report this information at the next business day to one of our nurses. Based on the medial branches blocked today, if the patient meets insurance criteria for radiofrequency, the treatment should result in the denervation of the left L4-L5 and L5-S1 facet joint nerves. We would expect to denervate a total of 2 facets during the radiofrequency ablation. Discharge plan:: She will call back with her 0-4 hour post-procedure pain scores. I personally performed the entire procedure. Johnnie Morales DO, MPH [facility]-subspecialty board certification in Pain Medicine Attending Physician - Pain Management CC: Apple Walters, PRODUCT GRADER SARBJIT [address] [place] [address] Johnnie Camarena DO NEUROLOGY ORDERABLES documented in this encounter Visit Diagnoses Diagnosis Spondylosis of lumbar region without myelopathy or radiculopathy Lumbosacral spondylosis without myelopathy documented in this encounter Administered Medications Inactive Administered Medications - up to 3 most recent administrations Medication Order MAR Action Action Date Dose Rate Site BUpivacaine (PF) (MARCAINE) 0.5 % (5 mg/mL) injection 50 mg 50 mg (10 mL), Subcutaneous, ONCE, 1 dose, On Mon04/21/15 at 1015, Wasted 20ml, Routine Given 04/20/2015 10:15 AM EST 50 mg iohexol (OMNIPAQUE) 240 mg/mL solution 0.75 mL 0.75 mL, Other, ONCE, 1 dose, On Mon04/21/15 at 1015, Wasted 49.25ml, Routine Given 04/20/2015 10:15 AM EST 0.75 mLs documented in this encounter Care Teams Oem Sales Manager Relationship Specialty Start Date End Date Apple Walters APRN PCP - General 01/14/14 06/19/16 documented as of this encounter
--- OUTSIDE RECORDS SUMMARY | 2023-12-27 19:48 | XMS_ITS | Encounter Summary ---
[place] [address] Care Team Providers Care Service Delivery Director Name Role Phone Sarah Waltersdee dee Rizzo APRN Primary Care Provider [phone]- [phone] Encounter Details Date Type Department Care Team (Latest Contact Info) Description 04/15/2015 - 04/15/2015 2:18 PM [facility] Hospital Encounter [place] [phone] Discharge Disposition: Home Social History Tobacco Use [...] Sig Dispensed Refills Start Date End Date oxyCODONE-acetamino phen (PERCOCET) 10-325 mg TabletIndications:p ain Take 1 tablet by mouth every 6 hours as needed for Pain (no more than 4 per day) for up to 28 days. Indications: Pain 112 tablet 0 03/27/2015 04/20/2015 nalOXone (NARCAN) 1 mg/mL Syringe For opioid overdose,spray 1 mL in each nostril. Repeat after 3-5 minutes if no or minimal response. Call 911 before administration. 4 mL 0 03/27/2015 05/12/2015 Miscellaneous Medical Supply [facility] Script for two intranasal mucosal atomizing devices for use with naloxone syringe. 2 each 0 03/27/2015 05/12/2015 dihydroergotamine (MIGRANAL) 0.5 mg/pump act. (4 mg/mL) [place], Non-Aerosol Migranal nasal spray, 1 spray in each nostril, wait 15 minutes then repeat x 1 for a total of 4 sprays daily. Limit use to 2x weekly. 8 mL 3 03/25/2015 05/11/2015 naproxen sodium (ANAPROX) 550 mg Tablet Take 1 tablet by mouth 2 times daily as needed. 60 tablet 12 03/25/2015 05/12/2015 cyproheptadine (PERIACTIN) 4 mg Tablet Take 1 [...] mg by mouth 2 times daily. 07/10/2015 omeprazole (PRILOSEC) 20 mg Capsule, Delayed Release(E.C.) Take 20 mg by mouth nightly. 05/12/2015 calcium carbonate (TUMS) 200 mg calcium (500 mg) Tablet, Chewable Take 2 tablets by mouth daily as needed. 04/29/2021 documented as of this encounter Plan of Treatment Upcoming Encounters Date Type Department Care Team (Late st Contact Info) Description 01/24/2024 3:40 PM EDT Office Visit Cardiology at [address] [phone] Rangel Willams MD [facility] [place] [address] documented as of this encounter Procedures Procedure Name Priority Date/Time Associated Diagnosis Comments FILM LIBRARY STORAGE ONLY CT HEAD AND SPINE STAT 04/15/2015 12:00 AM EST Pain documented in this encounter Results * Film Library- Storage Only CT Head And Spine (04/15/2015 12:00 AM EST) Narrative User, Generic Transmittal - 04/15/2015 12:31 PM EST See PACS for result report. Johnny Moya MD G FILM LIBRARY ORD ERABLES documented in this encounter Visit Diagnoses Not on filedocumented in this encounter Care Teams Service Delivery Director Relationship Specialty Start Date End Date Apple Walters APRN PCP - General 01/14/14 06/19/16 documented as of this encounter
--- OUTSIDE RECORDS SUMMARY | 2023-12-27 19:48 | XMS_ITS | Encounter Summary ---
Author Organization [facility] [place] [address] Care Team Providers Care Tr[employer] Paralegal Name Role Phone Apple Walters APRN Primary Care Provider [phone] Reason for Visit * Consultation (Routine) - Closed Specialty Diagnoses / Procedures Referred By Lang sanches Referred To Contact Rheumatology Diagnoses Fibromyalgia Arthralgia Ignacia Watts APRN [facility] [place] [address] Bessie Patton [facility] [place] [address] Referral ID Status Reason Start Date Expiration Date V isits Requested Visits Authorized [id number] Closed Consult, Test & Treat 03/27/2015 03/26/2016 1 1 Encounter Details Date Type Department Care Team (Late st Contact Info) Description 04/30/2015 3:00 PM EST Office Visit Rheumatology at [place] [phone] Nicolas Jennings MD [facility] [place] [address] Bessie Patton DO [facility] [place] [address] Ankle joint pain, unspecified laterality; Fibromyalgia Social History Tobacco Use Types Packs/Day Years Used Date Smoking Tobacco: Every Day Cigarettes 1 8 Smokeless Tobacco: Never Alcohol Use Standard Drinks/Week Comments No 0 (1 standard drink = 0.6 oz pur e alcohol) Sex and Gender Information Value Date Recorded Sex Assigned at Not on file Gender Identity Not on file Sexual Orientation Not on file documented as of this encounter Progress Notes * Bessie Patton DO - 04/30/2015 3:09 PM EST Outpatient Rheumatology Consult CC: Asked by Ignacia Watts to evaluate this patient with joint pain HPI: 24 yo female with scoliosis treated with Tejeda rods, fibromyalgia, SVT, headaches, ADD, here because she has been having painful swollen joints. She arrived 30 minutes late for this 60 minute appointment. 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 She is having pain in her fingers, wrists, knees. Knees are the worst. Her pain has been going on for years. She once saw a Street Worker. A RF factor was elevated in the past. She saw someone at that time but it doesn't seem like much was found at the time. Her joint pain is making it almost impossible to take care of her three children - 11 month old twins and a 2.5 year old. Her mom and theirfather helps her. Her hand joint swelling is there all the time. It used to just be there in the am. The past year has been difficult for her. Has had multiple procedures. She is taking lyrica and savella. She is feeling like the savella is not helping at all. lyrica seems to be helping. She gets nauseous when she is out in the sun. She has episodes when the joint pain gets very bed. It does not sound like she has Raynaud's. Patient Active Problem List Diagnosis Code ??? Heart palpitations R00.2 ??? Chronic pain syndrome G89.4 ??? Fibromyalgia M79.7 ??? Migraines G43.909 ??? ADD (attention deficit disorder) F90.0 ??? Scoliosis M41.9 ??? SVT (supraventricular tachycardia) I47.1 ??? Encounter for long-term (current) use of other medications Z79.899 ??? Chronic migraine without aura without status migrainosus, not intractable G43.709 ??? Spondylosis of lumbar region without myelopathy or radiculopathy M47.816 Social Hx: currently not working due to pain, may apply for short term disability Family Hx: mother has RA and takes leflunomide. She also has fibro. her sibs are healthy Ros: per HPI Physical Exam: Gen: Patient is awake, alert and oriented x 3, in no distress, her mother is with her Skin: warm and dry, no rheumatologic rashes, multiple tattoos. Lymph: no cervical or submandibular adenopathy Mouth: moist mucous membranes Eyes: normal sclerae Spine: multiple tenderpoints Joints: Hands: weak transplant nurse practitioner strength, ?swelling in the 2nd MCP joint. She is tender in all of her joints. She is able to make A complete fist but it is weak Wrists: ?swelling in the right wrist Elbows: hypermobile Knees: hypermobile Assessment and Plan: 24 yo female with longstanding hx of chronic pain, definitely with fibromyalgia but now with joint pain that feels different from her fibro. Some of this may be from joint hypermobility. i will check esr, crp, cbc, cmp, rf, ccp, alfredo, c3 andc4 as well as hand and knee xrays. If all of this is normal/negative, then her pain is all from fibromyalgia dn hypermobility. I wrote a note for her, stating she would benefit from daycare for medical reasons for 15-20 hours per week. I will contact her when tests are available. documented in this encounter Miscellaneous Notes * Addendum Note - Lory Quinones - 04/30/2015 4:58 PM ESTAddended by: LORY QUINONES on: 04/30/2015 04:58 PM Modules accepted: Orders documented in this encounter Plan of Treatment Upcoming Encounters Date Type Department Care Team (Late st Contact Info) Description 01/24/2024 3:40 PM EDT Office Visit Cardiology at [address] [phone] Rangel Willams MD [facility] [place] [address] documented as of this encounter Procedures Procedure Name Priority Date/Time Associated Diagnosis Comments EXTRACTABLE NUCLEAR ANTIGEN (LINDA) AB Routine 04/30/2015 5:07 PM EST Ankle joint pain, unspecified laterality ANTI-CYCLIC CITRULLINATED PEPTIDE AB Routine 04/30/2015 5:07 PM EST Ankle joint pain, unspecified laterality HEMOGRAM Routine 04/30/2015 5:07 PM EST Ankle joint pain, unspecified laterality DIFFERENTIAL, AUTOMATED Routine 04/30/2015 5:07 PM EST Ankle joint pain, unspecified laterality SEDIMENTATION RATE Routine 04/30/2015 5: 07 PM EST Ankle joint pain, unspecified laterality CBC (WITH DIFF) Routine 04/30/2015 5:07 PM EST Ankle joint pain, unspecified laterality RHEUMATOID FACTOR, QUANT Routine 04/30/2015 5:07 PM EST Ankle joint pain, unspecified laterality C3 COMPLEMENT Routine 04/30/2015 5:07 PM EST Ankle joint pain, unspecified laterality C4 COMPLEMENT Routine 04/30/2015 5:07 PM EST Ankle joint pain, unspecified laterality CRP, CARDIAC RISK (HS CRP) Routine 04/30/2015 5:07 PM EST Ankle joint pain, unspecified laterality ALFREDO ANTIBODY SCREEN Routine 04/30/2015 5 :07 PM EST Ankle joint pain, unspecified laterality BASIC METABOLIC PANEL Routine 04/30/2015 5:07 PM EST documented in this encounter Results * XR Knees 1 Or 2 Views - Bilateral (04/30/2015 5:40 PM EST) Anatomical Region Laterality Modality Knee Bilateral Digital Radiogra phy Impressions 04/30/2015 6:44 PM EST IMPRESSION: The study is essentially normal. If there is anterior knee pain the lack of visualization of the patellar tendon may be secondary to adjacent inflammation. Narrative 04/30/2015 6:44 PM EST EXAMINATION: XR KNEES 1 OR 2 VIEWS BILATERAL CLINICAL HISTORY: b/l knee pain, b/l knee pain TECHNIQUE: AP and lateral views COMPARISON: None FINDINGS: No effusion. No focal soft tissue swelling. No periostitis. No enthesopathy. No erosions. No focal lesion of bone. No specific abnormality seen at the level of the patellar tendons but there not well displayed on this study. This may be due to technique or may reflect a degree of adjacent inflammation. Procedure Note Zak Berger MD - 04/30/2015 EXAMINATION: XR KNEES 1 OR 2 VIEWS BILATERAL CLINICAL HISTORY: b/l knee pain, b/l knee pain TECHNIQUE: AP and lateral views COMPARISON: None FINDINGS: No effusion. No focal soft tissue swelling. No periostitis. No enthesopathy. No erosions. No focal lesion of bone. No specific abnormality seen at the level of the patellar tendons butthere not well displayed on this study. This may be due to technique or may reflecta degree of adjacent inflammation. IMPRESSION IMPRESSION: The study is essentially normal. If there is anterior knee pain the lackof visualization of the patellar tendon may be secondary to adjacentinflammation. Bessie MACHUCA DX ORDERABLE S * XR Bilateral Hands Minimum 3 Views (04/30/2015 5:40 PM EST) Anatomical Region Laterality Modality Hand Bilateral Digital Radiogra phy Impressions 04/30/2015 7:41 PM EST IMPRESSION: No evidence of inflammatory arthritis. Narrative 04/30/2015 7:41 PM EST EXAMINATION: XR BILATERAL HANDS MINIMUM 3 VIEWS CLINICAL HISTORY: b/l MCP pain, b/l MCP pain TECHNIQUE: 4 views the hands and wrists were acquired bilaterally. COMPARISON: None FINDINGS: Mineralization is normal. No focal soft tissue swelling is seen. No periostitis No acro osteolysis. At the interphalangeal joints no joint space narrowing malalignment or erosive disease. At the metacarpal phalangeal joints there is no joint space narrowing malalignment or erosive disease. At the carpus there is no joint space narrowing malalignment or erosive disease. Procedure Note Zka Berger MD - 04/30/2015 EXAMINATION: XR BILATERAL HANDS MINIMUM 3 VIEWS CLINICAL HISTORY: b/l MCP pain, b/l MCP pain TECHNIQUE: 4 views the hands and wrists were acquired bilaterally. COMPARISON: None FINDINGS: Mineralization is normal. No focal soft tissue swelling is seen. No periostitis No acro osteolysis. At the interphalangeal joints no joint space narrowing malalignment orerosive disease. At the metacarpal phalangeal joints there is no joint space narrowing malalignment or erosive disease. At the carpus there is no joint space narrowing malalignment or erosivedisease. IMPRESSION IMPRESSION: No evidence of inflammatory arthritis. Bessie Patton DO [place] ORDERABLE S * (ABNORMAL) Basic Metabolic Panel (non-fasting) (04/30/2015 5:07 PM EST) [facility] Glucose 123 65 - 199 mg/dL CERNER MILLENNIUM Comment:Diabetes: >=200 mg/d L plus symptoms Blood Urea Nitrogen 13 8 - 18 mg/dL CERNER MILLENNIUM Creatinine 0.61(L) 0.70 - 1.20 mg/dL CERNER MILLENNIUM Comment: Please note that the pediatric reference intervals supplied above were not validated at [facility]. Results from pediatric patients should be interpreted in conjunction to the patient's age, height and muscle mass. Sodium 140 135 - 145 mmol/L CERNER MILLENNIUM Potassium 3.8 3.5 - 5.0 mmol/L CERNER MILLENNIUM Comment: Please note: ??Patients with WBC >100,000 may have falsely elevated Potassium levels. ??For accurate Potassium quantification in these patients send serum separator tube (gold top) for subsequent determinations. ??Contact the Clinical Chemistry Laboratory if there are any questions. Chloride 104 98 - 107 mmol/L CERNER MILLENNIUM Carbon Dioxide 24 22 - 31 mmol/L CERNER MILLENNIUM Anion Gap 12 5 - 15 mmol/L CERNER MILLENNIUM Calcium 8.9 8.5 - 10.5 mg/dL CERNER MILLENNIUM Est [...] the following links into your internet browser. [email or web address] Blood specimen (specimen) Venous Draw / Unknown 04/30/2015 5:07 PM EST 04/30/2015 5:10 PM EST Narrative Resulting Agency Comment Spec In Lab Bessie Patton DO CHEMISTRY ORDERA [facility] CERNER MILLENNIUM * Differential, Automated (04/30/2015 5:07 PM EST) Neutrophil % 60.7 % CERNER MILLENNIUM Neutrophil Absolute 5.40 1.50 - 6.30 x10(3)/mcL CERNER MILLENNIUM Lymph % 28.8 % CERNER MILLENNIUM Lymphocytes Abs 2.6 1.0 - 3.6 x10(3)/mcL CERNER MILLENNIUM Monocyte % 7.3 % CERNER MILLENNIUM Monocyte Abs 0.6 0.2 - 1.0 x10(3)/mcL CERNER MILLENNIUM Eos % 2.9 % CERNER MILLENNIUM Eosinophils Abs 0.3 0.0 - 0.5 x10(3)/mcL CERNER MILLENNIUM Basophil % 0.2 % CERNER MILLENNIUM Baso Absolute 0.0 0.0 [...] 0.05 x10(3)/mcL CERNER MILLENNIUM Blood specimen (specimen) 04/30/2015 5:07 PM EST 04/30/2015 5:10 PM EST Narrative Resulting Agency Comment Spec In Lab Bessie Patton DO HEMATOLOGY ORDER REBECA Performing Organization Address [facility]/ZIP Co de Phone Number THERESA SANABRIAIUM * (ABNORMAL) Hemogram (04/30/2015 5:07 PM EST) White Blood Cell 8.9 4.0 - 10.0 x10(3)/mc L CERNER MILLENNIUM Red Blood Cell 4.09 3.93 - 5.22 x10(6)/mc L CERNER MILLENNIUM Hemoglobin 13.4 11.2 - 15.7 gm/dL CERNER MILLENNIUM Hematocrit 39.7 34.0 - 45.0 % CERNER MILLENNIUM Mean Cell Volume 97.1(H) 79.0 - 94.0 fL CERNER MILLENNIUM Mean Cell Hemoglobin 32.8(H) 26.6 - 32.2 pg CERNER MILLENNIUM Mean Cell Hemoglobin Concentration 33.8 32.0 - 36.5 gm/dL CERNER MILLENNIUM Platelet 226 145 - 370 x10(3)/mc L CERNER MILLENNIUM RDW Standard Deviation 46.7(H) 35.0 - 46.0 fL CERNER MILLENNIUM RDW coefficient of variation 13.1 10.9 - 14.4 % CERNER MILLENNIUM Mean Platelet Volume 11.0 9.0 - 12.0 fL CERNER MILLENNIUM Blood specimen (specimen) 04/30/2015 5:07 PM EST 04/30/2015 5:10 PM EST Narrative Resulting Agency Comment Spec In Lab Bessie Patton DO HEMATOLOGY ORDER REBECA Performing Organization Address City/[facility]/ZIP Co de Phone Number THERESA SANABRIAIUM * C4 Complement (04/30/2015 5:07 PM EST) Complement C4 29 10 - 40 mg/dL CERNER MILLENNIUM Blood specimen (specimen) 04/30/2015 5:07 PM EST 04/30/2015 5:10 PM EST Narrative Resulting Agency Comment Spec In Lab Bessie Patton DO CHEMISTRY ORDERA BLEJuanpablo Performing Organization Address [facility] de Phone Number [facility] * C3 Complement (04/30/2015 5:07 PM EST) Complement C3 125 90 - 180 mg/dL [facility]ER [facility] Blood specimen (specimen) 04/30/2015 5:07 PM EST 04/30/2015 5:10 PM EST Narrative Resulting Agency Comment Spec In Lab Bessie Patton DO CHEMISTRY ORDERA DAMIEN Performing Organization Address [facility] de Phone Number [facility] * Extractable Nuclear Antigen (LINDA) Ab (04/30/2015 5:07 PM EST) LINDA Ab Test ?Result ?Flag ??Unit ??RefValue Ab to Extractable Nuclear Ag Eval,S ??SS-A/Ro Ab, IgG, S ?<0.2 ?U -- REFERENCE VALUE -- <1.0 (Negative) ??SS-B/La Ab, IgG, S ?<0.2 ?U -- REFERENCE VALUE -- <1.0 (Negative) ??Sm Ab, IgG, S ? <0.2 ?U -- REFERENCE VALUE -- <1.0 (Negative) ??OIL RIG ROUGHNECK Ab, IgG, S ?<0.2 ?U -- REFERENCE VALUE -- <1.0 (Negative) ??Scl 70 Ab, IgG, S ? <0.2 ?U -- REFERENCE VALUE -- <1.0 (Negative) ??Aida 1 Ab, IgG, S ? <0.2 ?U -- REFERENCE VALUE -- <1.0 (Negative) Test Performed by: [employer] [address] Tank Stave Assembler: Marla Banks, Ph.D. [facility] Blood specimen (specimen) 04/30/2015 5:07 PM EST 05/01/2015 8:40 AM EST Narrative Resulting Agency Comment Spec In Lab Bessie Patton DO LAB SEND OUT ORD ERABLES Performing Organization Address [facility] de Phone Number [facility] * ALFREDO (04/30/2015 5:07 PM EST) ALFREDO Neg Neg [facility] Blood specimen (specimen) 04/30/2015 5:07 PM EST 05/01/2015 7:52 AM EST Narrative Resulting Agency Comment Spec In Lab Bessie Patton DO LAB SEND OUT ORD ERABLES Performing Organization Address [facility] Co de Phone Number [facility] * Cyclic Citrullinated Peptide (04/30/2015 5:07 PM EST) Cyclic Citrulline Peptide <8.0 <=17.0 unit/mL [facility] Blood specimen (specimen) 04/30/2015 5:07 PM EST 04/30/2015 5:10 PM EST Narrative Resulting Agency Comment Spec In Lab Bessie Larry Abdi DO CHEMISTRY SOHNA DAMIEN Performing Organization Address [facility] Co de Phone Number [facility] * Rheumatoid factor, quant (04/30/2015 5:07 PM EST) Rheumatoid Factor <10 <=14 IU/mL [facility] Blood specimen (specimen) 04/30/2015 5:07 PM EST 04/30/2015 5:10 PM EST Narrative Resulting Agency Comment Spec In Lab Bessie M Abdi DO CHEMISTRY SHONA DAMIEN Performing Organization Address [facility] de Phone Number [facility] * High Sensitivity CRP (04/30/2015 5:07 PM EST) Pathologist [facility] C-Reactive Protein High Sensitivity 4.1 mg/L [facility] Comment: Interpretations: 1) For accurate cardiac risk assessment, the average of 2 values >2 weeks apart should be obtained (ref 1&2). A value >10 mg/L indicates an inflammatory condition, concentrations >10 mg/L should not be used for cardiac risk assessment. ?<1.0 mg/L: low risk ?1.0 - 3.0 mg/L: moderate risk ?>3.0 mg/L: high risk groups for future cardiovascular events 2) The general reference range of apparently healthy individuals using this test is <5.0 mg/L (derived from the test package insert) References: 1. Clayton GONZALES et. al. ??AHA/CDC Scientific Statement: Markers of Inflammation and Cardiovascular Disease. ??Circulation 2003; 107:499-511 2. Jada PM. ??Clinical applications of C-reactive protein for cardiovascular disease detection and prevention. ??Circulation 2003; 107:363-369 Blood specimen (specimen) 04/30/2015 5:07 PM EST 04/30/2015 5:10 PM EST Narrative Resulting Agency Comment Spec In Lab Bessie Patton DO CHEMISTRY ORDERA [facility] * Sedimentation rate (04/30/2015 5:07 PM EST) Sedimentation Rate Automated 10 0 - 20 mm/hr [facility] Blood specimen (specimen) 04/30/2015 5:07 PM EST 04/30/2015 5:10 PM EST Narrative Resulting Agency Comment Spec In Lab Bessie Patton DO HEMATOLOGY ORDER REBECA [facility] documented in this encounter Visit Diagnoses Diagnosis Ankle joint pain, unspecified laterality Fibromyalgia Mylagia and myositis, unspecified Ankle joint pain, unspecified laterality Ankle joint pain, unspecified laterality documented in this encounter Care Teams [employer] Paralegal Relationship Specialty Start Date End Date Apple Walters APRN PCP - General 01/14/14 06/19/16 documented as of this encounter
--- OUTSIDE RECORDS SUMMARY | 2023-12-27 19:48 | XMS_ITS | Encounter Summary ---
Author Organization [facility] [place] [address] Care Team Providers Care General Merchandise Manager Name Role Phone Apple Walters APRN Primary Care Provider +1- [phone] Reason for Referral * Diagnostic Test (Routine) - Closed Specialty Diagnoses / Procedures Referred By Lang t Referred To Contact Radiology Diagnoses Carotid aneurysm, right Procedures IR embolization intracranial Darlene Rooney APRN [facility] [place] [address] [place] [address] Referral ID Status Reason Start Date Expiration Date V isits Requested Visits Authorized [id number] Closed Specialty Service Requested 04/30/2015 04/29/2016 1 1 Reason for Visit * Reason Comments Aneurysm * Surgical (Routine) - Closed Specialty Diagnoses / Procedures Referred By Lang t Referred To Contact Neurosurgery Diagnoses MRI of brain abnormal Kristi Ritchie MD [facility] [place] [address] Karlo Bass MD [facility] [address] Referral ID Status Reason Start Date Expiration Date V isits Requested Visits Authorized [id number] Closed Consult, Test & Treat 04/13/2015 04/12/2016 1 1 Encounter Details Date Type Department Care Team (Late st Contact Info) Description 04/30/2015 2:30 PM EST Office Visit Neurosurgery at [facility] [place] [address] Karlo Bass MD [facility] [place] [address] Darlene Rooney APRN [facility] [place] [address] Kurtis Pina MD [facility] [place] [address] Carotid aneurysm, right Social History Tobacco Use Types Packs/Day Years [...] Sign Reading Time Taken Comments Blood Pressure 120/65 04/30/2015 2:36 PM EST Pulse 113 04/30/2015 2:36 PM EST Temperature - - Respiratory Rate - - Oxygen Saturation - - Inhaled Oxygen Concentration - - Weight 78 kg (172 lb) 04/30/2015 2:36 PM EST Height 157.5 cm (5' 2) 04/30/2015 2:36 PM EST Body Mass Index 31.46 04/30/2015 2:36 PM EST documented in this encounter Progress Notes * Karlo Bass MD - 04/30/2015 3:25 PM EST Date of Service and Dictation: 04/30/2015 We had the pleasure of seeing Ghada and her mother today in neurovascular clinic. 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 She states she has a positive family history for cerebral aneurysms and also is a current smoker. She reports with questions regarding any need for further intervention for said intracranial aneurysm. Past medical history remarkable for chronic pain, heart palpitations, fibromyalgia, ADD, migraine, scoliosis, SVT, and lumbar spondylosis. Allergies to MEPERIDINE, LITHIUM, ZOLOFT, and bee pollen. Medications include p.r.n. oxycodone, Migranal, Anaprox, Vistaril, Periactin, Phenergan, Zofran, Lyrica, magnesium, potassium, alprazolam, Topamax, Savella, Prilosec, calcium supplementation, Adderall. She is a pack a day smoker for approximately eight years and does not drink alcohol. Again, she states she has a positive family history and lost an aunt to a cerebral aneurysm. Review of imaging, again, demonstrates paraclinoid aneurysm measuring approximately 6.5 mm on the right. We have discussed cerebral aneurysms, their natural history, and risks associated with intervention. I have also discussed the potential utilization of catheter based techniques for the treatment of cerebral aneurysms and mentioned that surgical clipping is also an option for treatment. I have recommended a diagnostic cerebral angiogram with possible intervention and I have also mentioned that Neuroform stenting may be necessary. She would like to proceed and will do so in the near future. I appreciate the opportunity to provide care. I spent approximately 10 minutes with her discussing the above findings and all queries were answered. documented in this encounter Plan of Treatment Upcoming Encounters Date Type Department Care Team (Late st Contact Info) Description 01/24/2024 3:40 PM EDT Office Visit Cardiology at [address] [address] Rangel Willams MD [facility] [place] [address] documented as of this encounter Results * IR embolization intracranial (05/11/2015 12:33 PM EST) Anatomical Region Laterality Modality Head X-Ray Angiograph y Narrative 05/20/2015 8:26 AM EST Preoperative Diagnosis:? 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 ? Postoperative Diagnosis:? 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 ? Procedures: 1.? Diagnostic cerebral angiogram.? Vessels injected:? Right internal carotid artery. ? 2.? 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 ? Attending:? Karlo Bass M.D. ? Gradall Operator:? Silvana ? Operative Note:? The patient presents to the Angio Suite, general endotracheal anesthesia is induced.? Bifemoral sites are shaved then prepped and draped in sterile fashion.? Ben incision made over the region of the right femoral artery, accessed with a single wall needle technique.? [employer] wire is passed in the vessel and over to a 6 Kosovan sheath connected to a continuous heparinized flush solution.? A 6 Kosovan guide catheter is transnavigated over an 0.035 angled GlideWire to select the right internal carotid artery. Diagnostic runs are performed, after reviewing the images 5000 units of heparin are administered.? An 0.010 microcatheter is transnavigated over an 0.014 wire to select the aneurysm.? We attempted to place a 6 mm 360 coil into the aneurysm, it prolapsed into the parent vessel.? We therefore withdrew the coil and selected a 4 x 20 Neuroform stent.? We removed the microcatheter, replaced it with an XT 27 microcatheter placed distal to the paraophthalmic aneurysm, Integrilin was given as a bolus and the 4 x 20 Neuroform stent was deployed without difficulty.? Diagnostic runs are performed, the guide catheter is withdrawn, Mynx is used to achieve hemostasis at the puncture arteriotomy and the patient emerges from anesthesia in stable cardiodynamic condition.? She is transferred to the PACU for further monitoring on heparin, supervision and interpretation. ? Right Internal Carotid Injection:? 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 ? Next control angiography after stent deployment demonstrates successful stent deployment across the paraophthalmic aneurysm with preservation of regional angio architecture. ? Summary:? Successful stage I Neuroform stent placement as described. I was present for the entire case and made all clinical decisions regarding care. KARLO BASS MD 05/11/2015 Procedure Note Karlo Bass MD - 05/20/2015 Preoperative Diagnosis:? 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 ? Postoperative Diagnosis:? 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 ? Procedures: 1.? Diagnostic cerebral angiogram.? Vessels injected:? Right internalcarotid artery. ? 2.? Stage I Neuroform stent placement for right paraophthalmic arteryaneurysm. ? Attending:? Karlo Bass M.D. ? Gradall Operator:? Silvana ? Operative Note:? The patient presents to the Angio Suite, generalendotracheal anesthesia is induced.? Bifemoral sites are shaved then prepped and drapedin sterile fashion.? Ben incision made over the region of the rightfemoral artery, accessed with a single wall needle technique.? [employer] wire ispassed in the vessel and over to a 6 Kosovan sheath connected to a continuous heparinized flush solution.? A 6 Kosovan guide catheter is transnavigatedover an 0.035 angled GlideWire to select the right internal carotid artery. Diagnostic runs are performed, after reviewing the images 5000 units ofheparin are administered.? An 0.010 microcatheter is transnavigated over an 0.014wire to select the aneurysm.? We attempted to place a 6 mm 360 coil into the aneurysm, it prolapsed into the parent vessel.? We therefore withdrewthe coil and selected a 4 x 20 Neuroform stent.? We removed the microcatheter, replaced it with an XT 27 microcatheter placed distal tothe paraophthalmic aneurysm, Integrilin was given as a bolus and the 4 x 20 Neuroform stent was deployed without difficulty.? Diagnostic runs are performed, the guide catheter is withdrawn, Mynx is used to achievehemostasis at the puncture arteriotomy and the patient emerges from anesthesia instable cardiodynamic condition.? She is transferred to the PACU for furthermonitoring on heparin, supervision and interpretation. ? Right Internal Carotid Injection:? 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 ? Next control angiography after stent deployment demonstrates successfulstent deployment across the paraophthalmic aneurysm with preservation ofregional angio architecture. ? Summary:? Successful stage I Neuroform stent placement as described. I was present for the entire case and made all clinical decisionsregarding care. 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
--- OUTSIDE RECORDS SUMMARY | 2023-12-27 19:48 | XMS_ITS | Encounter Summary ---
Author Organization [facility] [place] [address] Care Team Providers Care Erisa Attorney Name Role Phone Apple Walters Matthais ALVAREZ Primary Care Provider +1- [phone] Encounter Details Date Type Department Care Team (Latest Contact Info) Description 04/30/2015 5:14 PM EST - 04/30/2015 11:59 PM EST Hospital Encounter XRay at [address] [place] [address] Bessie Patton, [facility] [place] [address] Ankle joint pain, unspecified laterality Discharge Disposition: Home Social History Tobacco Use [...] as needed for Pain (no more than 5 per day) for up to 28 days. Indications: Pain 140 tablet 0 04/20/2015 05/12/2015 nalOXone (NARCAN) 1 mg/mL Syringe For opioid overdose,spray 1 mL in each nostril. Repeat after 3-5 minutes if no or minimal response. Call 911 before administration. 4 mL 0 03/27/2015 05/12/2015 Miscellaneous Medical Supply [facility] Script for two intranasal mucosal atomizing devices for use with naloxone syringe. 2 each 0 03/27/2015 05/12/2015 dihydroergotamine (MIGRANAL) 0.5 mg/pump act. (4 mg/mL) Teller, Non-Aerosol Migranal nasal spray, 1 spray in [...] PM EDT Office Visit Cardiology at [address] [address] Rangel Willams MD [facility] [address] documented as of this encounter Procedures Procedure Name Priority Date/Time Associated Diagnosis Comments XR KNEE AP AND LAT BILAT Routine 04/30/2015 5:40 PM EST Ankle joint pain, unspecified laterality documented in this encounter Results * XR [...] to adjacentinflammation. Bessie MACHUCA DX ORDERABLE S documented in this encounter Visit Diagnoses Diagnosis Ankle joint pain, unspecified laterality documented in this encounter Care Teams Erisa Attorney Relationship Specialty Start Date End Date Apple Walters APRN PCP - General 01/14/14 06/19/16 documented as of this encounter
--- OUTSIDE RECORDS SUMMARY | 2023-12-27 19:48 | XMS_ITS | Encounter Summary ---
[place] [address] Care Team Providers Care Tub Operator Name Role Phone Apple Quiñonez Matthias ALVAREZ Primary Care Provider +1- [phone] Reason for Visit * Auth/Cert Specialty Diagnoses / Procedures Referred By Lang t Referred To Contact Diagnoses CAROTID ARTERY ANEURYSM S/P STAGE I NEUROFORM STENT PLACEMENT FOR RIGHT PAR OPHTHALMIC ARTERY ANEURYSM Procedures PRO PERM OCCLUSION/EMBOLIZATION, PERCUT, SPRAY PAINTER ANGIOPLASTY-INTRACRANIAL Referral ID Status Reason Start Date Expiration Date Visits Re quested Visits Authorized [id number] 1 1 Encounter Details Date Type Department Care Team (Late st Contact Info) Description 06/01/2015 1:30 PM EST - 06/01/2015 4:30 [place] [address] Karlo Bass MD [facility] [place] [address] @ANGIOPLASTY-INTRACRAN IAL (WRVU ) Social History Tobacco Use Types Packs/Day Years [...] Sign Reading Time Taken Comments Blood Pressure 128/75 06/01/2015 4:30 PM EST Pulse 80 06/01/2015 4:30 PM EST Temperature 36.1 ??C (97 ??F) 06/01/2015 2:45 PM EST Respiratory Rate 19 06/01/2015 4:30 PM EST Oxygen Saturation 98% 06/01/2015 4:30 PM EST Inhaled Oxygen Concentration - - [...] Other (See Comments) flushing, respiratory trouble ??? [place] Other (See Comments) Flu like sx ??? [...] Nurse (Gladys Latif) Inpatient Nurses Neurosurgical Resident Community Program Assistant (after 5pm or before 8am) Neurosurgery offices (between 8am-5pm): Dr. Conley Dr. Castaneda (pediatric neurosurgery) Dr. Aponte: Pediatric Patients , Adult Patients Dr. Mak Dr. Mehta Dr. Baez Dr. Bass Johnnie Turk, Physician Silk Trimmer Nina Grimes, Nurse Practitioner Johnnie Tijerina Physician Silk Trimmer Hilaria Lutz Nurse Practitioner CC: APPLE QUIÑONEZ APRN Future Appointments Provider Department Dept Phone 06/15/2015 11:30 AM Ignacia Watts APRN Pain Management [phone] Electronically Signed By: RICCO GARNICA 06/02/2015 documented [...] Nurse (Gladys Latif) Inpatient Nurses Neurosurgical Resident Community Program Assistant (after 5pm or before 8am) Neurosurgery offices (between 8am-5pm): Dr. Conley Dr. Castaneda (pediatric neurosurgery) Dr. Aponte: Pediatric Patients , Adult Patients Dr. Mak Dr. Mehta Dr. Baez Dr. Bass Johnnie Turk, Physician Silk Trimmer Nina Grimes, Nurse Practitioner Johnnie Tijerina, Physician Silk Trimmer Hilaria Lutz, Nurse Practitioner CC: APPLE QUIÑONEZ [...] AM EST 1899- Received report from Radha. 0- Pt awake alert x4, follows command, moving [...] the right. Surgeon is Karlo Bass M.D. Silk Trimmer is Dino Martinez M.D. Operative Note: The patient presents to the angio suite. General endotracheal anesthesia is induced. Bifemoral sites are shaved then prepped and draped in sterile fashion. A gala incision is made over the region and the right femoral artery accessed with a single-wall needle technique. A Bentson wire is passed in the vessel and over it a 6-Divehi sheath connected to a continuous heparinized flush solution. A 6-Divehi guide catheter is transnavigated over an 0.035 [...] PM EDT Office Visit Cardiology at [address] [address] Ranegl Willams MD [facility] [place] [address] documented as of this encounter Procedures Procedure [...] * (ABNORMAL) APTT (06/02/2015 7:25 AM EST) [facility] Signature Partial Thromboplastin Time 83(H) 25 - 35 sec [facility] Comment: The recommended therapeutic range for full dose, unfractionated heparin at [facility] is 80 ? 114 seconds. The use of the anti-Xa (heparin) level rather than the PTT is recommended for monitoring anticoagulation intensity in critically ill patients receiving unfractionated heparin by continuous IV infusion. Blood specimen (specimen) 06/02/2015 7:25 AM EST 06/02/2015 8:28 AM EST Narrative Resulting Agency Comment Spec In Lab Karlo Bsas MD HEMATOLOGY ORDERABLE S Performing Organization Address [facility] Phone Number [employer] * (ABNORMAL) APTT (06/02/2015 5:00 AM EST) Partial Thromboplastin Time 86(H) 25 - 35 sec [facility] Comment: The recommended therapeutic range for full dose, unfractionated heparin at [facility] is 80 ? 114 seconds. The use of the anti-Xa (heparin) level rather than the PTT is recommended for monitoring anticoagulation intensity in critically ill patients receiving unfractionated heparin by continuous IV infusion. Blood specimen (specimen) 06/02/2015 5:00 AM EST 06/02/2015 5:15 AM EST Narrative Resulting Agency Comment Spec In Lab Karlo Bass MD HEMATOLOGY ORDERABLE S Performing Organization Address [facility] Phone Number [employer] * (ABNORMAL) APTT (06/02/2015 2:45 AM EST) [facility] Signature Partial Thromboplastin Time 58(H) 25 - 35 sec [facility] Comment: The recommended therapeutic range for full dose, unfractionated heparin at [facility] is 80 ? 114 seconds. The use [...] Performing Organization Address [facility] Phone Number CERNER MILLENNIUM * Differential, Automated (06/02/2015 2:00 AM [...] Lab Karlo Bass MD HEMATOLOGY ORDERABLE S THERESA SANABRIAIUM * (ABNORMAL) Hemogram (06/02/2015 2:00 AM EST) [...] Metabolic Panel (non-fasting) (06/02/2015 2:00 AM EST) [facility] Glucose 135 65 - 199 mg/dL CERNER MILLENNIUM Comment:Diabetes: >=200 mg/d L plus symptoms Blood Urea Nitrogen 12 8 - 18 mg/dL CERNER MILLENNIUM Creatinine 0.59(L) 0.70 - 1.20 mg/dL [facility] MILLENNIUM Comment: Please note that the pediatric reference intervals supplied above were not validated at [facility]. Results from pediatric patients should be interpreted [...] the following links into your internet browser. [email or web address] Blood specimen (specimen) 06/02/2015 2:00 AM EST 06/02/2015 2:14 AM EST Narrative Resulting Agency Comment Spec In Lab Karlo Bass MD CHEMISTRY ORDERABLES Performing Organization Address [facility] de Phone Number [facility] * (ABNORMAL) APTT (06/01/2015 10:40 PM EST) Partial Thromboplastin Time 48(H) 25 - 35 sec [facility] Comment: The recommended therapeutic range for full dose, unfractionated heparin at [facility] is 80 ? 114 seconds. The use [...] Performing Organization Address [facility] de Phone Number [facility] * (ABNORMAL) APTT (06/01/2015 8:30 PM EST) Partial Thromboplastin Time 46(H) 25 - 35 sec [facility] Comment: The recommended therapeutic range for full dose, unfractionated heparin at [facility] is 80 ? 114 seconds. The use of the anti-Xa (heparin) level rather than the PTT is recommended for monitoring anticoagulation intensity in critically ill patients receiving unfractionated heparin by continuous IV infusion. Blood specimen (specimen) 06/01/2015 8:30 PM EST 06/01/2015 8:30 PM EST Narrative Resulting Agency Comment Spec In Lab Karlo Bass MD HEMATOLOGY ORDERABLE S Performing Organization Address City/[facility] Co de Phone Number THERESA SANABRIAIUM * (ABNORMAL) APTT (06/01/2015 5:30 PM EST) Pathologist [facility] Partial Thromboplastin Time 45(H) 25 - 35 sec CERNER ELIJAHENNIUM Comment: The recommended therapeutic range for full dose, unfractionated heparin at [facility] is 80 ? 114 seconds. The use [...] Performing Organization Address [facility] Co de Phone Number THERESA SANABRIAIUM * Differential, Automated (06/01/2015 3:28 PM EST) Pathologist [facility] Neutrophil % 71.9 % CERNER MILLENNIUM Neutrophil [...] MD HEMATOLOGY ORDERABLE S Performing Organization Address City/State/[facility] Co de Phone Number THERESA HAWTHORNE * (ABNORMAL) APTT (06/01/2015 3:28 PM EST) [facility] Signature Partial Thromboplastin Time >160.0(Cr itical) 25 - 35 THERESA HAWTHORNE Comment: Called by: NORA, Read back by: Esthela Ramirez, Date/Time:06/01/15 16:04. The recommended therapeutic range for full dose, unfractionated heparin at [facility] is 80 ? 114 seconds. The use [...] Performing Organization Address [facility] Co de Phone Number THERESA HAWTHORNE documented in this encounter Visit Diagnoses Not on filedocumented in this encounter Active and Recently Administered [...] Wisdom RN)2335 (Rate/Dose Change - Provider: Jer Wisdom, RN) 0300 (Rate/Dose Change - Provider: Jer [...] RN)0756 (Given - Provider: Isela Nash RN) ALPRAZolam (XANAX) tablet 0.5 mg (CANCELED) 0.5 mg, Oral, DAILY PRN, Starting on Mon06/01/15 at 1803, Until Mon06/02/15 at 1428, Sleep, Anxiety, no more than 10 per month, Routine 1805 (Given - Provider: Esthela Ramirez RN) 0914 (Given - Provider: Isela Nash, ROBERT) HYDROmorphone (DILAUDID) injection 0.2 mg (CANCELED) 0.2 [...] Ramirez RN)1900 (Given - Provider: Jer Wisdom RN)190 (Given - Provider: Jer Wisdom RN)191 (Given - Provider: Jer Wisdom RN)193 (Given - Provider: Jer Wisdom RN)194 (Given - Provider: Jer Wisdom RN)1999 (Given - Provider: Jer Wisdom RN)2005 (Given - Provider: Jer Wisdom RN)2009 (Given [...] PACU Recovery 1502 (Given - Provider: Esthela Ramirez, ROBERT) ondansetron (ZOFRAN) injection 4 mg (CANCELED)(Linked Group [...] 1428, Pain, mild pain, Give per rectum (OR) if unable to take PO. May repeat [...] on Mon06/01/15 at 1458, Until Mon06/01/15 at 2115, Pain, mild to moderate pain (1-6), May give an additional 5 mg in 30 minutes once if pain not relieved. Mild to moderate pain (1-6), Routine Or oxyCODONE (ROXICODONE) immediate release tablet 10 mg (CANCELED)Jump to med 10 mg, Oral, EVERY 4 HOURS PRN, Starting on Mon06/01/15 at 1458, Until Mon06/01/15 at 2115, Pain, severe pain (7-10), May give an additional 5 mg in 30 minutes once if pain not relieved. Severe pain (7-10), Routine documented in this encounter Care Teams Tub Operator Relationship Specialty Start Date End Date Apple Quiñonez APRN PCP - General 01/14/14 06/19/16 documented as of this encounter
--- OUTSIDE RECORDS SUMMARY | 2023-12-27 19:48 | XMS_ITS | Encounter Summary ---
Author Organization [facility] [place] [address] Care Team Providers Care Professional Volleyball Player Name Role Phone Apple Walters APRN Primary Care Provider +1- [phone] Encounter Details Date Type Department Care Team (Late st Contact Info) Description 05/19/2015 Orders [place] [phone] Darlene Rooney APRN [facility] [place] [address] Social History Tobacco Use Types Packs/Day Years [...] 3:40 PM EDT Office Visit Cardiology at [address] [phone] Rangel Willams MD [facility] [place] [address] documented as of this encounter Visit Diagnoses Not on filedocumented in this encounter Care Teams Professional Volleyball Player Relationship Specialty Start Date End Date Apple Walters APRN PCP - General 01/14/14 06/19/16 documented as of this encounter
--- OUTSIDE RECORDS SUMMARY | 2023-12-27 19:48 | XMS_ITS | Encounter Summary ---
[place] [address] Care Team Providers Care Cake Stripper Name Role Phone Apple Quiñonez KIM Primary Care Provider [phone] Reason for Visit * Auth/Cert - Closed Specialty Diagnoses / Procedures Referred By Lang t Referred To Contact Diagnoses right opthalmic artery aneurysm Procedures PRO INTRACRANIAL BALLOON ANGIOPLASTY ANGIOPLASTY-INTRACRANIAL Referral ID Status Reason Start Date Expiration Date Visits Re quested Visits Authorized [id number] Closed 1 1 Encounter Details Date Type Department Care Team (Late st Contact Info) Description 05/11/2015 10:30 AM EST - 05/11/2015 1:30 [place] [address] Karlo Bass MD [facility] [place] [address] @ANGIOPLASTY-INTRACRAN IAL (WRVU 22.07) Social History Tobacco Use Types Packs/Day Years [...] Sign Reading Time Taken Comments Blood Pressure 123/100 05/12/2015 12:04 PM EST Pulse 83 05/12/2015 6:00 AM EST Temperature 36.6 ??C (97.9 ??F) 05/12/2015 10:[address] Respiratory Rate 18 05/12/2015 6:00 AM EST Oxygen Saturation 100% 05/12/2015 12:04 PM EST Inhaled Oxygen Concentration - - Weight 78 kg (172 lb) 05/11/2015 9:21 AM EST Height 157.5 cm (5' 2.01) 05/11/2015 9:21 AM ES T Body Mass Index 31.45 05/11/2015 9:21 AM EST documented in this encounter Discharge Summaries * Johnnie Turk PA - 05/12/2015 11:06 AM EST Inpatient - Discharge Summary Patient Name: Ghada Ervin Patient Age: 24 y.o. Birthdate: 1990 Admit date: 05/11/2015 Discharge date and time: 05/12/2015 Attending Physician: Karlo Bass MD Discharge Diagnoses (Hospital Problems): Active Hospital Problems Diagnosis ??? Intracranial aneurysm Resolved Hospital Problems Diagnosis Date Resolved No [...] syndrome ??? Fibromyalgia ??? Migraines Operations/Major Procedures: 05/11/15, Dr Bass 1.?? Diagnostic cerebral angiogram.?? Vessels injected:?? Right internal carotid artery. 2.?? 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 She is seen by Rheumatology (has fibromyalgia, work up for joint pain/swelling in progress) and the Pain clinic (back/joint pain s/p thoracic fusion 2007 for scoliosis.) Hospital Course: Patient was admitted 05/11 and underwent uncomplicated neuroform stent placement for right paraophthalmic artery aneurysm by Dr Bass. She has remained stable and is now being discharged and will follow up for coiling at a later date. She continues with CUADRA pain. She was given a limited prescriptionfor dilaudid and has a scheduled appointment with Ignacia POSEY. Important Studies and Lab Data: Lab Results Component Value Date/Time WBC 7.6 05/12/2015 02:40 AM HEMOGLOBIN 11.7 05/12/2015 02:40 AM HEMATOCRIT 35.8 05/12/2015 02:40 AM PLATELETS 280 05/12/2015 02:40 AM SODIUM 142 05/12/2015 02:40 AM POTASSIUM 4.6 05/12/2015 02:40 AM CHLORIDE 109* 05/12/2015 02:40 AM CO2 21* 05/12/2015 02:40 AM BUN 20* 05/12/2015 02:40 AM CREATININE 0.86 05/12/2015 02:40 AM Pending Studies and Lab Data: None Discharge Conditions/Prognosis: Stable Discharge to: Home Discharge Medications: Your Medications New Medications Dose Details acetaminophen 325 mg Tab Commonly known as: TYLENOL Take 2 tablets by mouth every 4 hours as needed for Pain (mild pain). 650 mg Quantity: 30 tablet Refills: 1 aspirin 325 mg Tab Take 1 tablet by mouth daily. 325 mg Quantity: 30 tablet Refills: 0 clopidogrel 75 mg Tab Commonly known as: PLAVIX Take 1 tablet by mouth daily. 75 mg Quantity: 30 tablet Refills: 3 HYDROmorphone 2 mg Tab Commonly known as: DILAUDID Take 2 tablets by mouth every 4 hours as needed for Pain. 4 mg Quantity: 30 tablet Refills: 0 Continued medications, unchanged Dose Details ALPRAZolam 0.5 mg Tab Commonly known as: XANAX Take 0.5 mg by mouth daily as needed for Sleep or Anxiety (no more than 10 per month). Indications:Panic Disorder 0.5 mg Refills: 0 calcium carbonate 200 mg calcium (500 mg) Chew Commonly known as: TUMS Take 2 tablets by mouth daily as needed. 2 tablet Refills: 0 cyproheptadine 4 mg Tab Commonly known as: [...] needed for Nausea. 8 mg Refills: 0 pregabalin 75 mg Cap [...] Generic drug: milnacipran 50 mg Refills: 0 topiramate 50 mg Tab Commonly known as: TOPAMAX Take 50 mg by mouth 2 times daily. 50 mg Refills: 0 STOPPED Medications dihydroergotamine 0.5 mg/pump act. (4 mg/mL) Agenda Commonly known as: MIGRANAL Miscellaneous Medical Supply Misc nalOXone 1 mg/mL Syrg Commonly known as: NARCAN naproxen sodium 550 mg Tab Commonly known as: ANAPROX omeprazole 20 mg Cpdr Commonly known as: PriLOSEC oxyCODONE-acetaminophen 10-325 mg Tab Commonly known as: PERCOCET Updated Allergies/ADRs: Allergies Allergen Reactions ??? Bee Pollen Anaphylaxis ??? Meperidine Hcl Anaphylaxis and Other (See Comments) flushing, respiratory trouble ??? [place] Other (See Comments) Flu like sx ??? Zoloft [Sertraline] Other (See Comments) Flu like sx Follow-up Recommendations for Providers: See Below Instructions Given to Patient at Discharge: Patient Instructions Primary Reason for Hospitalization: Acom Aneurysm Condition at Discharge: Stable Special Physician [...] Discuss return to work with your doctor CALL YOUR DOCTOR FOR: - Fever over 101 F - Worsening headaches - Unsteadiness when walking/new weakness - Slurred speech - Visual changes - Drowsiness/confusion - Nausea/vomiting - Convulsions/seizures - Pain not relieved with mild medication Anti-coagulation follow up: Continue daily aspirin and Plavix as prescribed Activity level: As tolerated Diet: Regular Driving: No Shower/Bath: [place] Wound Care: May remove groin dressing Follow up Appointments: Follow up with Dr Bass for aneurysm coiling IMPORTANT PHONE NUMBERS: Outpatient Nurse (Gladys Latif) Inpatient Nurses Neurosurgical Resident Room Worker (after 5pm or before 8am) Neurosurgery offices (between 8am-5pm): Dr. Conley Dr. Castaneda (pediatric neurosurgery) Dr. Aponte: Pediatric Patients , Adult Patients Dr. Mak Dr. Mehta Dr. Baez Dr. Bass Johnnie Turk, Physician Sharepoint Specialist Nina Grimes, Nurse Practitioner Johnnie Tijerina, Physician Sharepoint Specialist Hilaria Lutz, Nurse Practitioner CC: APPLE QUIÑONEZ APRN Future Appointments Provider Department Dept Phone 05/18/2015 12:30 PM Ignacia Watts APRN Pain Management [phone] Electronically Signed By: RICCO GARNICA 05/12/2015 documented in this encounter Discharge Instructions * Patient Instructions* Johnnie Turk PA - 05/12/2015 11:04 AM EST Primary Reason for Hospitalization: Acom Aneurysm Condition at Discharge: Stable Special Physician [...] Discuss return to work with your doctor CALL YOUR DOCTOR FOR: - Fever over 101 F - Worsening headaches - Unsteadiness when walking/new weakness - Slurred speech - Visual changes - Drowsiness/confusion - Nausea/vomiting - Convulsions/seizures - Pain not relieved with mild medication Anti-coagulation follow up: Continue daily aspirin and Plavix as prescribed Activity level: As tolerated Diet: Regular Driving: No Shower/Bath: [place] Wound Care: May remove groin dressing Follow up Appointments: Follow up with Dr Bass for aneurysm coiling IMPORTANT PHONE NUMBERS: Outpatient Nurse (Gladys Latif) Inpatient Nurses Neurosurgical Resident Room Worker (after 5pm or before 8am) Neurosurgery offices (between 8am-5pm): Dr. Conley Dr. Castaneda (pediatric neurosurgery) Dr. Aponte: Pediatric Patients , Adult Patients Dr. Mak Dr. Mehta Dr. Baez Dr. Bass Johnnie Turk, Physician Sharepoint Specialist Nina Grimes, Nurse Practitioner Johnnie Tijerina, Physician Sharepoint Specialist Hilaria Lutz, Nurse Practitioner CC: APPLE QUIÑONEZ APRN documented in this encounter Medications at Time of Discharge Medication Sig Dispensed Refills Start Date End Date acetaminophen (TYLENOL) 325 mg Tablet Take 2 tablets by mouth every 4 hours as needed for Pain (mild pain). 30 tablet 1 05/12/2015 aspirin 325 mg Tablet Take 1 tablet by mouth daily. 30 tablet 0 05/12/2015 02/07/2018 clopidogrel (PLAVIX) 75 mg Tablet Take 1 tablet by mouth daily. 30 tablet 3 05/12/2015 02/07/2018 HYDROmorphone (DILAUDID) 2 mg Tablet Take 2 tablets by mouth every 4 hours as needed for Pain. 30 tablet 0 05/12/2015 05/18/2015 cyproheptadine (PERIACTIN) 4 mg Tablet Take 1 [...] as of this encounter Progress Notes * Harini Britton - 05/12/2015 1:11 PM EST Order received to discharge pt to home. IV removed per policy. Discharge summary given to pt and all instructions discussed with pt. Questions from pt relayed to KIM Grimes and pt verbalized understanding of subsequent teaching. Prescriptions called in to pharmacy by RICCO Turk. Pt left with mother via wheelchair. * Kurtis Pina MD - 05/12/2015 8:15 AM EST Neurosurgery - Inpatient Progress Note ID: Ghada Ervin, 24 y.o. female s/p stent placement Interval Hx: -YASMIN -Neurologically stable -Facial numbness/weakness improving -Pulsed with 10mg of Dex yesterday evening -Heparin drip overnight -Mobilized Objective: Medications: Scheduled Meds: ??? cyproheptadine 4 mg Oral Nightly ??? dextroamphetamine-amphetamine 20 mg Oral QAM ??? topiramate 50 mg Oral BID ??? sodium chloride 0.9 % 5 mL Intravenous BID ??? senna-docusate 2 tablet Oral BID ??? famotidine 20 mg Oral BID Or ??? famotidine 20 mg Intravenous BID ??? sodium chloride 0.9 % 5 mL Intravenous BID ??? magnesium oxide 200 mg Oral BID ??? pregabalin 150 mg Oral BID Continuous Infusions: ??? heparin 15.128 Units/kg/hr (05/12/15 0641) PRN Meds:ALPRAZolam, calcium carbonate, hydrOXYzine, sodium chloride 0.9 %, lidocaine, bisacodyl, polyethylene glycol, ondansetron OR ondansetron, prochlorperazine OR prochlorperazine, acetaminophen OR acetaminophen, oxyCODONE OR oxyCODONE, sodium chloride 0.9 %, lidocaine, HYDROmorphone Vitals: Temp: [36.2 ??C (97.2 ??F)-37 ??C (98.6 ??F)] Heart Rate: [58-99] Resp: [12-20] BP: (97-133)/(37-80) SpO2: [92 %-100 %] I/O: Intake/Output Summary (Last 24 hours) at 05/12/15 0816 Last data filed at 05/12/15 0700 Gross per 24 hour Intake 2643 ml Output 1337 ml Net 1306 ml Labs: Recent Labs 05/12/15 0240 05/11/15 1320 WBC 7.6 7.0 HGB 11.7 10.7* PLATELET 280 246 Recent Labs 05/12/15 0240 NA 142 K 4.6 CL 109* CO2 21* BUN 20* CREATININE 0.86 No results for input(s): PT, INR in the last 72 hours. Physical Exam: -NAD -AAOx3 -Speech fluent and appropriate. -PERRL. EOMI. -No facial asymmetry -Tongue midline -Motor: RUE:4+/5 LUE:4+/5 RLE: 4+/5 LLE: 4+/5 -No pronator drift -Sensation intact to LT x 4 -Soreness at puncture site, no expansion or swelling Assessment/Plan:: 24 y.o. female s/p stent placement yesterday. Neurologically stable. - Close neurological observation, q4 checks. - Transition heparin drip to 325mg ASA and 75mg Plavix - Mobilize - Continue home medications - Dispo planning - Will return in ~2 weeks for coiling * Kurtis Pina MD - 05/11/2015 8:18 PM EST NS POSTOP NOTE Stable since surgery. Some numbness along right side of face Initially unequal smile, now improved ??? cyproheptadine 4 mg Oral Nightly ??? [START ON 05/12/2015] dextroamphetamine-amphetamine 20 mg Oral QAM ??? topiramate 50 mg Oral BID ??? sodium chloride 0.9 % 5 mL Intravenous BID ??? senna-docusate 2 tablet Oral BID ??? famotidine 20 mg Oral BID Or ??? famotidine 20 mg Intravenous BID ??? sodium chloride 0.9 % 5 mL Intravenous BID ??? magnesium oxide 200 mg Oral BID ??? pregabalin 150 mg Oral BID ??? dexamethasone inj 10 mg Intravenous Q6H SAMIR Temp: [36.2 ??C (97.2 ??F)-37 ??C (98.6 ??F)] Heart Rate: [58-88] Resp: [12-20] BP: (97-133)/(58-80) SpO2: [92 %-100 %] I/O last 3 completed shifts: In: 1683 [I.V.:168] Out: 287 [Urine:287] AAOx3 Speech fluent PERRL EOMI Face near symmetric, right sided creases when smiles slightly decreased compared to left Tongue midline Sensation along V1-3 on right less than on left, improving Similar strength to pre-op, diffuse 4-4+ weakness, symmetric LT sensation intact x4 Recent Results (from the past 24 hour(s)) POCT urine Result Value Ref Range POC Urine HCG Negative Negative - Negative POC Control Internal Controls Acceptable APTT Result Value Ref Range PTT >160 (CRIT) 25 - 35 sec Hemogram Result Value Ref Range WBC 7.0 4.0 - 10.0 x10(3)/mcL RBC 3.28 (L) 3.93 - 5.22 x10(6)/mcL Hemoglobin 10.7 (L) 11.2 - 15.7 gm/dL Hematocrit 31.5 (L) 34.0 - 45.0 % MCV 96.0 (H) 79.0 - 94.0 fL MCH 32.6 (H) 26.6 - 32.2 pg MCHC 34.0 32.0 - 36.5 gm/dL Platelets 246 145 - 370 x10(3)/mcL RDWSD 47.1 (H) 35.0 - 46.0 fL RDWCV 13.4 10.9 - 14.4 % MPV 10.7 9.0 - 12.0 fL Differential, Automated Result Value Ref Range Neutrophils % 39.5 % Neutr Abs (ANC) 2.76 1.50 - 6.30 x10(3)/mcL Lymphocytes % 49.2 % Lymphocytes Abs 3.4 1.0 - 3.6 x10(3)/mcL Monocytes % 6.2 % Monocyte Abs 0.4 0.2 - 1.0 x10(3)/mcL Eosinophils % 4.7 % Eosinophils Abs 0.3 0.0 - 0.5 x10(3)/mcL Basophils % 0.1 % Basophils Abs 0.0 0.0 - 0.2 x10(3)/mcL Immature Gran % 0.30 % Ale Gran Abs 0.02 0.00 - 0.05 x10(3)/mcL APTT Result Value Ref Range PTT 37 (H) 25 - 35 sec A/P: 24 y.o. female pod 0 from stent placement. - Spicer ok to come out, IVF stopped - 10mg decadron IV for facial symptoms - Continue with post-op orders as written * Ze Cook RN - 05/11/2015 5:36 PM EST Patient admitted to NSCU in no distress, groin site without drainage or hematoma. Patient was complaining of slight R facial numbness and slight R side weakness in PACU and continues to complain of this symptom, Dr Pina aware. Patient complaining of 7/10 headache, 15mg Oxycodone and 650mg tylenolgiven for pain. Patient denies nausea, taking PO fluids. Ptt at 1630 was 37, pharmacy paged to sendHeparin, awaiting delivery of Heparin. * Anabel Singh RN - 05/11/2015 1:39 PM EST Into PACU from OR Settled in and monitors applied continuously All alarms on. C/o pain in back and groin to migraine Level at 9 to 7 with divided doses of hydromorphone IV Rt groin dressing intact with no hematoma Abdomen soft C/o facial numbness and weakness rt > lt Positive facial droop Dr. Pina notified and summoned to bedside for baseline eval. Does move all extremities Legs weaker than arms No speech deficits 14:59 Pain improved to 3-4/10 Had phenergan for nausea with sleepy state post Turned to side with complete skin check.... Intact Ptt > 160 Dr. Pina called repeat PTT At 1700 Heparin gtt not started Report to Ze in Nscu PTT sent at 1630 Instructed that Hep gtt has been on hold Aware of neuro deficits and that Dr. Pina has seen her documented in this encounter Miscellaneous Notes * Plan of Care - Shell Sheriff RN - 05/12/2015 5:20 AM EST Problem: General Plan of Care Goal: Plan of Care Review Outcome: Ongoing (Interventions Implemented as Appropriate) 05/12/15512 Coping/Psychosocial Response Interventions Plan of Care Reviewed with patient;mother;significant other Plan of Care Review Plan of Care Outcome Status ongoing (interventions implemented as appropriate) Progress improving OUTCOME EVALUATION NOTE: OUTCOME SUMMARY: Patient alert and oriented overnight, c/o headache with PRN medications given with good results, able to sleep on/off throughout night, IV heparin infusing with Q2 PTT checks per orders, new IV placed in am for comfort, spicer removed at HS with patient up to BR multiple times and bladder scans insignificant, c/o mild nausea at times controlled well with PRN medications, able to ring appropriately, groin site with C/D/I dressing, will continue to monitor. PLAN MOVING FORWARD: Continue with neurological monitoring and groin site assessments, keep pain well controlled, encourage ambulation INDIVIDUALIZED FALL PREVENTION: Assistance: 1-assist when OOB Supervision: RN/YAZMIN Surveillance: Hourly monitoring, pulse oximetry on overnight. CPG GOAL OUTCOME EVALUATION: Goal: Individualization and Mutuality Outcome: Ongoing (Interventions Implemented as Appropriate) Goal: Fall Prevention-Safe Patient Handling Outcome: Ongoing (Interventions Implemented as Appropriate) 05/11/152019 Safety Interventions Safety Precautions/Fall Reduction bed alarm;fall reduction program maintained;family at bedside;lighting adjusted for task/safety;nonskid shoes/slippers when out of bed Serra Fall Risk History of Falling 0 Secondary Diagnosis 15 Ambulatory Aids 30 Intravenous Therapy/Heparin/Saline Lock 20 Gait/Transferring 10 Mental Status 15 Score 90 OTHER Serra Fall Risk High Musculoskeletal Interventions Activity/Level of Assistance up in room;with 1-person assist Positioning independent Goal: Infection Control Outcome: Ongoing (Interventions Implemented as Appropriate) 05/12/15512 Safety Interventions Isolation Precautions standard precautions maintained Infection Prevention rest/sleep promoted Coping/Psychosocial Response Interventions Counseling reassurance provided Goal: Discharge Needs Assessment Outcome: Ongoing (Interventions Implemented as Appropriate) * Op Note - Karlo Bass MD - 05/11/2015 12:24 PM EST CLARIFICATION NEEDED Preoperative Diagnosis: Paraophthalmic aneurysm on the right. Postoperative Diagnosis: Paraophthalmic aneurysm on the right. Procedures: 1. Diagnostic cerebral angiogram. Vessels injected: Right internal carotid artery. 2. 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 Attending: Karlo Bass M.D. Sharepoint Specialist: Silvana Operative Note: The patient presents to the Angio Suite, general endotracheal anesthesia is induced. Bifemoral sites are shaved then prepped and draped in sterile fashion. Ben incision made over the region of the right femoral artery, accessed with a single wall needle technique. Done.son wire is passed in the vessel and over to a 6 [place] sheath connected to a continuous heparinized flush solution. A 6 [place] guide catheter is transnavigated over an 0.035 angled GlideWire to select the right internal carotid artery. Diagnostic runs are performed, after reviewing the images 5000 units of heparin are administered. An 0.010 microcatheter is transnavigated over an 0.014 wire to select the aneurysm. We attempted to place a 6 mm 360 coil into the aneurysm, it prolapsed into the parent vessel. We therefore withdrew the (coil) and selected a 4 x 20 Neuroform stent. We removed the microcatheter, replaced it with an XT 27 microcatheter placed distal to the paraophthalmic aneurysm, Integrilin was given as a bolus and the 4 x 20 Neuroform stent was deployed without difficulty. Diagnostic runs are performed, the guide catheter is withdrawn, Mynx is used to achieve hemostasis at the puncture arteriotomy and the patient emerges from anesthesia in stable cardiodynamic condition. She is transferred to the PACU for further monitoring on heparin, supervision and interpretation. 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 Next control angiography after stent deployment demonstrates successful stent deployment across the paraophthalmic aneurysm with preservation of regional angio architecture. Summary: Successful stage I Neuroform stent placement as described. * OR Attestation - Karlo Bass MD - 05/11/2015 12:14 PM EST Attestation: Case Date: 05/11/2015 I was present for the entire case and made all clinical decisions regarding care. KARLO BASS MD 05/11/2015 documented in this encounter Plan of Treatment Upcoming Encounters Date Type Department Care Team (Late st Contact Info) Description 01/24/2024 3:40 PM EDT Office Visit Cardiology at [address] [address] Rangel Willams MD [facility] [place] [address] documented as of this encounter Procedures Procedure Name Priority Date/Time Associated Diagnosis Comments ECG SCAN 05/13/2015 12:00 AM EST APTT STAT 05/12/2015 10:59 AM EST APTT STAT 05/12/2015 8:38 AM EST APTT STAT 05/12/2015 5:30 AM EST HEMOGRAM Routine 05/12/2015 2:40 AM EST DIFFERENTIAL, AUTOMATED Routine 05/12/2015 2:40 AM EST APTT STAT 05/12/2015 2:40 AM EST CBC (WITH DIFF) Routine 05/12/2015 2:40 AM EST BASIC METABOLIC PANEL Routine 05/12/2015 2:40 AM EST APTT STAT 05/11/2015 11:51 PM EST APTT STAT 05/11/2015 9:04 PM EST @ANGIOPLASTY-INTRAC RANIAL (WRVU 22.07) 05/11/2015 6:30 PM EST right opthalmic artery aneurysm APTT STAT 05/11/2015 4:30 PM EST HEMOGRAM Routine 05/11/2015 1:20 PM EST DIFFERENTIAL, AUTOMATED Routine 05/11/2015 1:20 PM EST APTT STAT 05/11/2015 1:20 PM EST CBC (WITH DIFF) Routine 05/11/2015 1:20 PM EST POCT URINE Routine 05/11/2015 documented in this encounter Results * SCAN DOC: ECG (05/13/2015 12:00 AM EST) Scanning Provider MEDIA MGR SCAN EXT O RDR/RSLT * (ABNORMAL) APTT (05/12/2015 10:59 AM EST) Partial Thromboplastin Time 70(H) 25 - 35 sec [employer] Comment: Recommended therapeutic PTT range for full dose unfractionated heparin is 80-114 seconds. Blood specimen (specimen) 05/12/2015 10:59 AM EST 05/12/2015 11:17 AM EST Narrative Resulting Agency Comment Spec In Lab Karlo Bass MD HEMATOLOGY ORDERABLE S Performing Organization Address City/[facility]/ZIP Co de Phone Number [employer] * (ABNORMAL) APTT (05/12/2015 8:38 AM EST) Partial Thromboplastin Time 67(H) 25 - 35 sec [employer] Comment: Recommended therapeutic PTT range for full dose unfractionated heparin is 80-114 seconds. Blood specimen (specimen) 05/12/2015 8:38 AM EST 05/12/2015 8:55 AM EST Narrative Resulting Agency Comment Spec In Lab Karlo Bass MD HEMATOLOGY ORDERABLE S [facility] [place] * (ABNORMAL) APTT (05/12/2015 5:30 AM EST) Partial Thromboplastin Time 47(H) 25 - 35 sec [employer] Comment: Recommended therapeutic PTT range for full dose unfractionated heparin is 80-114 seconds. Blood specimen (specimen) 05/12/2015 5:30 AM EST 05/12/2015 5:55 AM EST Narrative Resulting Agency Comment Spec In Lab Karlo Bass MD HEMATOLOGY ORDERABLE S [facility]ER[facility]A [facility]NI[facility] * (ABNORMAL) APTT (05/12/2015 2:40 AM EST) Partial Thromboplastin Time 53(H) 25 - 35 sec [employer] Comment: Recommended therapeutic PTT range for full dose unfractionated heparin is 80-114 seconds. Blood specimen (specimen) 05/12/2015 2:40 AM EST 05/12/2015 2:47 AM EST Narrative Resulting Agency Comment Spec In Lab Karlo Bass MD HEMATOLOGY ORDERABLE S Performing Organization Address City/[facility] Co de Phone Number [facility] * (ABNORMAL) Differential, Automated (05/12/2015 2:40 AM EST) Neutrophil % 85.7 % [facility] Neutrophil Absolute 6.56(H) 1.50 - 6.30 x10(3)/mc L [facility] Lymph % 11.4 % [facility] Lymphocytes Abs 0.9(L) 1.0 - 3.6 x10(3)/mc L [facility] Monocyte % 1.6 % [facility] Monocyte Abs 0.1(L) 0.2 - 1.0 x10(3)/mc L [facility] Eos % 0.9 % [facility] Eosinophils Abs 0.1 0.0 - 0.5 x10(3)/mc L [facility]ERNER M[facility]ENNIUM Basophil % 0.3 % [facility]ERNER M[facility]ENNIUM Baso Absolute 0.0 0.0 - 0.2 x10(3)/mc L [facility] M[facility]EN[facility] Immature Gran % 0.10 % [facility] Comment: Immature granulocytes(IG's)percentage and absolute count will include metamyelocytes, myelocytes, and promyelocytes. Blood smears from CBCs yielding IG's will be scanned manually for concordance. If this scan disagrees with the automated IG or if promyelocytes are noted, a manual differential will be performed. Immature Gran Absolute 0.01 0.00 - 0.05 x10(3)/mc L [facility] Blood specimen (specimen) 05/12/2015 2:40 AM EST 05/12/2015 2:47 AM EST Narrative Resulting Agency Comment Spec In Lab Karlo Bass MD HEMATOLOGY ORDERABLE S Performing Organization Address [facility] Co de Phone Number [facility] * (ABNORMAL) Hemogram (05/12/2015 2:40 AM EST) White Blood Cell 7.6 4.0 - 10.0 x10(3)/mc L [facility] M[facility] Red Blood Cell 3.65(L) 3.93 - 5.22 x10(6)/mc L [facility] M[facility]ENNI[facility] Hemoglobin 11.7 11.2 - 15.7 gm/dL [facility]ERNER MILLENNIUM Hematocrit 35.8 34.0 - 45.0 % CERNER MILLENNIUM Mean Cell Volume 98.1(H) 79.0 - 94.0 fL CERNER MILLENNIUM Mean Cell Hemoglobin 32.1 26.6 - 32.2 pg CERNER MILLENNIUM Mean Cell Hemoglobin Concentration 32.7 32.0 - 36.5 gm/dL CERNER MILLENNIUM Platelet 280 145 - 370 x10(3)/mc L CERNER MILLENNIUM RDW Standard Deviation 46.8(H) 35.0 - 46.0 fL CERNER MILLENNIUM RDW coefficient of variation 13.1 10.9 - 14.4 % CERNER MILLENNIUM Mean Platelet Volume 11.0 9.0 - 12.0 fL CERNER MILLENNIUM Blood specimen (specimen) 05/12/2015 2:40 AM EST 05/12/2015 2:47 AM EST Narrative Resulting Agency Comment Spec In Lab Karlo Bass MD HEMATOLOGY ORDERABLE S Performing Organization Address [facility]/ZIP Co de Phone Number THERESA SANABRIAIUM * (ABNORMAL) Basic Metabolic Panel (non-fasting) (05/12/2015 2:40 AM EST) [facility] Glucose 210(H) 65 - 199 mg/dL CERNER MILLENNIUM Comment:Diabetes: >=200 mg/d L plus symptoms Blood Urea Nitrogen 20(H) 8 - 18 mg/dL CERNER MILLENNIUM Creatinine 0.86 0.70 - 1.20 mg/dL CERNER MILLENNIUM Comment: Please note that the pediatric reference intervals supplied above were not validated [place] [facility] [place] Results from pediatric patients should be interpreted in conjunction to the patient's age, height and muscle mass. Sodium 142 135 - 145 mmol/L CERNER MILLENNIUM Potassium 4.6 3.5 - 5.0 mmol/L CERNER MILLENNIUM Comment: Please note: ??Patients with WBC >100,000 may have falsely elevated Potassium levels. ??For accurate Potassium quantification in these patients send serum separator tube (gold top) for subsequent determinations. ??Contact the Clinical Chemistry Laboratory if there are any questions. Chloride 109(H) 98 - 107 mmol/L CERNER MILLENNIUM Carbon Dioxide 21(L) 22 - 31 mmol/L CERNER MILLENNIUM Anion Gap 12 5 - 15 mmol/L CERNER MILLENNIUM Calcium 8.1(L) 8.5 - 10.5 mg/dL CERNER MILLENNIUM Est [...] the following links into your internet browser. http://[employer]/DHnkdep [email or web address]://[employer]/DHnkf Blood specimen (specimen) 05/12/2015 2:40 AM EST 05/12/2015 2:47 AM EST Narrative Resulting Agency Comment Spec In Lab Karlo Bass MD CHEMISTRY ORDERABLES CERJOSÉ ANTONIO SANABRIAIUM * (ABNORMAL) APTT (05/11/2015 11:51 PM EST) Partial Thromboplastin Time 48(H) 25 - 35 sec CERNER MILLENNIUM Comment: Recommended therapeutic PTT range for full dose unfractionated heparin is 80-114 seconds. Blood specimen (specimen) 05/11/2015 11:51 PM EST 05/11/2015 11:56 PM EST Narrative Resulting Agency Comment Spec In Lab Karlo Bass MD HEMATOLOGY ORDERABLE S Performing Organization Address [facility] de Phone Number CERJOSÉ ANTONIO NAVAENNIUM * (ABNORMAL) APTT (05/11/2015 9:04 PM EST) Partial Thromboplastin Time 39(H) 25 - 35 sec [facility] Comment: Recommended therapeutic PTT range for full dose unfractionated heparin is 80-114 seconds. Blood specimen (specimen) 05/11/2015 9:04 PM EST 05/11/2015 9:10 PM EST Narrative Resulting Agency Comment Spec In Lab Karlo Bass MD HEMATOLOGY ORDERABLE S Performing Organization Address [facility] de Phone Number THERESA SANABRIAIUM * (ABNORMAL) APTT (05/11/2015 4:30 PM EST) Partial Thromboplastin Time 37(H) 25 - 35 sec CERNER MILLENNIUM Comment: Recommended therapeutic PTT range for full dose unfractionated heparin is 80-114 seconds. Blood specimen (specimen) 05/11/2015 4:30 PM EST 05/11/2015 4:49 PM EST Narrative Resulting Agency Comment Spec In Lab Karlo Bass MD HEMATOLOGY ORDERABLE S Performing Organization Address [facility] de Phone Number CERJOSÉ ANTONIO NAVAENNIUM * Differential, Automated (05/11/2015 1:20 PM EST) Neutrophil % 39.5 % [facility] MILLENNIUM Neutrophil Absolute 2.76 1.50 - 6.30 x10(3)/mcL CERNER MILLENNIUM Lymph % 49.2 % CERNER MILLENNIUM Lymphocytes Abs 3.4 1.0 - 3.6 x10(3)/mcL CERNER MILLENNIUM Monocyte % 6.2 % CERNER MILLENNIUM Monocyte Abs 0.4 0.2 - 1.0 x10(3)/mcL CERNER MILLENNIUM Eos % 4.7 % CERNER MILLENNIUM Eosinophils Abs 0.3 0.0 - 0.5 x10(3)/mcL CERNER MILLENNIUM Basophil % 0.1 % CERNER MILLENNIUM Baso Absolute 0.0 0.0 - 0.2 x10(3)/mcL CERNER MILLENNIUM Immature Gran % 0.30 % CERN ER MILLENNIUM Comment: Immature granulocytes(IG's)percentage and absolute count will include metamyelocytes, myelocytes, and promyelocytes. Blood smears from CBCs yielding IG's will be scanned manually for concordance. If this scan disagrees with the automated IG or if promyelocytes are noted, a manual differential will be performed. Immature Gran Absolute 0.02 0.00 - 0.05 x10(3)/mcL CERNER MILLENNIUM Blood specimen (specimen) 05/11/2015 1:20 PM EST 05/11/2015 1:36 PM EST Narrative Resulting Agency Comment Spec In Lab Karlo Bass MD HEMATOLOGY ORDERABLE S CERNER ELIJAHENNIUM * (ABNORMAL) Hemogram (05/11/2015 1:20 PM EST) White Blood Cell 7.0 4.0 - 10.0 x10(3)/mc L CERNER MILLENNIUM Red Blood Cell 3.28(L) 3.93 - 5.22 x10(6)/mc L CERNER MILLENNIUM Hemoglobin 10.7(L) 11.2 - 15.7 gm/dL CERNER MILLENNIUM Hematocrit 31.5(L) 34.0 - 45.0 % CERNER MILLENNIUM Mean Cell Volume 96.0(H) 79.0 - 94.0 fL CERNER MILLENNIUM Mean Cell Hemoglobin 32.6(H) 26.6 - 32.2 pg CERNER MILLENNIUM Mean Cell Hemoglobin Concentration 34.0 32.0 - 36.5 gm/dL CERNER MILLENNIUM Platelet 246 145 - 370 x10(3)/mc L [facility] RDW Standard Deviation 47.1(H) 35.0 - 46.0 fL [facility] RDW coefficient of variation 13.4 10.9 - 14.4 % [facility] Mean Platelet Volume 10.7 9.0 - 12.0 fL [facility] Blood specimen (specimen) 05/11/2015 1:20 PM EST 05/11/2015 1:36 PM EST Narrative Resulting Agency Comment Spec In Lab Karlo Bass MD HEMATOLOGY ORDERABLE S Performing Organization Address City/[facility] Co de Phone Number [facility] * (ABNORMAL) APTT (05/11/2015 1:20 PM EST) Partial Thromboplastin Time >160(Crit ical) 25 - 35 sec [facility] Comment: Called by: [facility], Read back by: Veronica Singh, Date/Time:05/11/15 14:06. Recommended therapeutic PTT range for full dose unfractionated heparin is 80-114 seconds. Blood specimen (specimen) 05/11/2015 1:20 PM EST 05/11/2015 1:36 PM EST Narrative Resulting Agency Comment Spec In Lab Karlo Bass MD HEMATOLOGY ORDERABLE S Performing Organization Address City/[facility] Co de Phone Number [facility] * POCT urine (05/11/2015) POC Urine HCG Negative Negative - Negative POC Control Internal Controls Acceptable 05/11/2015 Hilaria Vargas MD POINT OF CARE TEST O RDERABLES documented in this encounter Visit Diagnoses Not on filedocumented in this encounter Admitting Diagnoses Diagnosis Intracranial aneurysm Cerebral aneurysm, nonruptured documented in this encounter Active and Recently Administered Medications Times are shown in EST. Scheduled Medication Order 05/10/2015 05/11/2015 05/12/2015 aspirin tablet 325 mg 325 mg, Oral, DAILY, First dose on Mon05/12/15 at 0945, Until Discontinued, Routine 928 (Given - Provid er: Harini Britton) clopidogrel (PLAVIX) tablet 75 mg 75 mg, Oral, DAILY, First dose on Mon05/12/15 at 1000, Until Discontinued, Routine 103 (Given - Provid er: Harini Britton) cyproheptadine (PERIACTIN) tablet 4 mg (CANCELED) 4 mg, Oral, NIGHTLY, First dose on Mon05/11/15 at 2100, Until Discontinued, Routine 2145 (Given - Provider: Shell Sheriff RN) dexamethasone (DECADRON) injection 10 mg (COMPLETED) 10 mg, Intravenous, ONCE, 1 dose, On Mon05/11/15 at 2130 2136 (Given - Provider: Shell Sheriff RN) dextroamphetamine-amphetami ne (ADDERALL XR) XR capsule 20 mg (CANCELED) 20 mg, Oral, EVERY MORNING, First dose on Mon05/12/15 at 0700, Until Discontinued, Routine 620 (Given - Provid er: Shell Sheriff RN) famotidine (PEPCID) tablet 20 mg (CANCELED)(Linked Group 1) 20 mg, Oral, 2 TIMES DAILY, First dose on Mon05/11/15 at 2100, Until Discontinued, If unable to take PO, may give IV, Routine 2137 (Given - Provider: Shell Sheriff RN) 0817 (Given - Provider: Harini Britton) magnesium oxide (MAG-OX) tablet 200 mg (CANCELED) 200 mg, Oral, 2 TIMES DAILY, First dose on Mon05/11/15 at 2100, Until Discontinued, Routine 2137 (Given - Provider: Shell Sheriff RN) 0817 (Given - Provider: Harini Britton) oxyCODONE-acetaminophen (PERCOCET) 5-325 mg per tablet 2 tablet (COMPLETED) 2 tablet, Oral, ONCE, 1 dose, On Mon05/11/15 at 1030, Maximum dose of acetaminophen is 4000 mg from all sources in 24 hours., Day of Surgery (Day of Procedure), Routine 1017 (Given - Provider: Elise Mclaughlin RN) pregabalin (LYRICA) capsule 150 mg (CANCELED) 150 mg, Oral, 2 TIMES DAILY, First dose (after last reorder) on Mon05/11/15 at 2100, Until Discontinued, Routine 2145 (Given - Provider: Shell Sheriff RN) 0816 (Given - Provider: Harini Britton) senna-docusate (PERICOLACE) 8.6-50 mg per tablet 2 tablet (CANCELED) 2 tablet, Oral, 2 TIMES DAILY, First dose on Mon05/11/15 at 2100, Until Discontinued, Routine 2145 (Given - Provider: Shell Sheriff RN) 0816 (Given - Provider: Harini Britton) sodium chloride 0.9 % flush 5 mL (CANCELED) 5 mL, Intravenous, 2 TIMES DAILY, First dose on Mon05/11/15 at 1330, Until Discontinued, Recovery (Recovery-Hospital Unit), Routine 1327 (Given - Provider: Anabel Singh RN)215 (Given - Provider: Shell Sheriff RN) 0900 (Given - Provider: Harini Britton) sodium chloride 0.9 % flush 5 mL (CANCELED) 5 mL, Intravenous, 2 TIMES DAILY, First dose on Mon05/11/15 at 2100, Until Discontinued, Routine 2150 (Given - Provider: Shell Sheriff RN) 0900 (Given - Provider: Harini Britton) topiramate (TOPAMAX) tablet 50 mg (CANCELED) 50 mg, Oral, 2 TIMES DAILY, First dose on Mon05/11/15 at 2100, Until Discontinued, Routine 2137 (Given - Provider: Shell Sheriff RN) 0817 (Given - Provider: Harini Britton) Continuous Medication Order 05/10/2015 05/11/2015 05/12/2015 heparin 25,000 units in dextrose 5% 500 mL infusion (CANCELED) 10 Units/kg/hr ? 78 kg (15.6 mL/hr), Intravenous, CONTINUOUS, Starting on Mon05/11/15 at 1330, Until Mon05/12/15 at 1101, Initial heparin rate 10 Units/kg/hr Target PTT [...] call prescriber to change dosage , Routine 1330 (Canceled Entry - Provider: Anabel Singh RN - Reason: Order parameters not met)1848 (New Bag - Provider: Ze Cook RN)2149 (Rate/Dose Change - Provider: Shell Sheriff RN) 0050 (Rate/Dose Change - Provider: Shell Sheriff RN)0336 (Rate/Dose Change - Provider: Shell Sheriff RN)0641 (Rate/Dose Change - Provider: Shell Sheriff RN)0916 (Rate/Dose Verify - Provider: Harini Britton - Comment: PTT 67; no change)1130 (Stopped - Provider: Harini Britton) lactated ringers infusion 1,000 mL (CANCELED) 1,000 mL, at 100 mL/hr, Intravenous, CONTINUOUS, Starting on Mon05/11/15 at 1000, Until Mon05/11/15 at 1658, Day of Surgery (Day of Procedure) 1018 (New Bag - Provider: Elise Mclaughlin RN)1053 (New Bag - Provider: Burke Beatty CRNA)1130 (Anesthesia Volume Adjustment - Provider: Burke Beatty CRNA) sodium chloride 0.9% infusion (CANCELED) 50 mL/hr, Intravenous, CONTINUOUS, Starting on Mon05/11/15 at 1315, Until Mon05/11/15 at 1954, Recovery (Recovery-Hospital Unit) 1303 (New Bag - Provider: Anabel Singh RN)2000 (Stopped - Provider: Shell Sheriff RN) PRN Medication Order 05/10/2015 05/11/2015 05/12/2015 acetaminophen (TYLENOL) tablet 650 mg(Linked Group 2) 650 mg, Oral, EVERY 4 HOURS PRN, Starting on Mon05/11/15 at 1309, Until Mon05/12/15 at 1517, Pain, mild pain, May repeat once in 30 minutes if desired effect not achieved. Do not exceed 4000 mg acetaminophen per day. Mild pain (1-3)., Routine 1755 (Given - Provider: Ze Cook RN)2154 (Given - Provider: Shell Sheriff RN) 0159 (Given - Provider: Shell Sheriff RN)0621 (Given - Provider: Shell Sheriff RN) ALPRAZolam (XANAX) tablet 0.5 mg (CANCELED) 0.5 mg, Oral, DAILY PRN, Starting on Mon05/11/15 at 1309, Until Mon05/12/15 at 1517, Sleep, Anxiety, no more than 10 per month, Routine 0929 (Given - Provider: Harini Britton) calcium carbonate (TUMS) chewable tablet 1,000 mg (CANCELED) 1,000 mg (2 tablet), Oral, DAILY PRN, Starting on Mon05/11/15 at 1738, Until Mon05/12/15 at 1517, Heartburn, Routine 0226 (Given - Provider: Shell Sheriff RN) HYDROmorphone (DILAUDID) injection 0.3 mg (CANCELED) 0.3 mg, Intravenous, EVERY 1 HOUR PRN, Starting on Mon05/11/15 at 2007, Until Mon05/12/15 at 0917, Pain, breakthrough pain, Routine 2020 (Given - Provider: Shell Sheriff RN)2137 (Given - Provider: Shell Sheriff RN)2257 (Given - Provider: Shell Sheriff RN) 0147 (Given - Provider: Shell Sheriff RN)0343 (Given - Provider: Shell Sheriff RN)0540 (Given - Provider: Shell Sheriff RN) HYDROmorphone (DILAUDID) syringe 0.2-0.4 mg (CANCELED) 0.2-0.4 mg, Intravenous, EVERY 5 MIN PRN, Pain, Starting on Mon05/11/15 at 1226, Until Mon05/11/15 at 1658, For moderate pain (4-6) give: 0.2 mg every 5 minute prn For severe pain (7-10) give: 0.4 mg every 5 minutes prn Maximum dose: 4 mg per hour Hold for respiratory rate less than 10 per minute., PACU Recovery 1255 (Given - Provider: Anabel Singh RN)1300 (Given - Provider: Anabel Singh RN)1312 (Given - Provider: Anabel Singh, ROBERT)1328 (Given - Provider: Anabel Singh, ROBERT)1356 (Given - Provider: Anabel Singh RN)1512 (Given - Provider: Anabel Singh RN)1536 (Given - Provider: Anabel Singh RN)1620 (Given - Provider: Anabel Singh RN) HYDROmorphone (DILAUDID) tablet 2-4 mg 2-4 mg, Oral, EVERY 4 HOURS PRN, Starting on Mon05/12/15 at 0922, Until Mon05/12/15 at 1517, Pain, Pain 1-5 2 mg, Pain 6-10 4 mg, Routine 09 (Given - Provider: Harini Britton) ondansetron (ZOFRAN) injection 4 mg (CANCELED)(Linked Group 3) 4 mg, Intravenous, EVERY 8 HOURS PRN, Starting on Mon05/11/15 at 1738, Until Mon05/12/15 at 1517, Nausea, If multiple antiemetics are ordered, use ondansetron first, prochlorperazine second, and metaclopramide third. May repeat times one in 30 minutes if ineffective 2153 (See Alternative - Provider: Shell Sheriff RN) 918 (Given - Provider: Harini Britton) ondansetron (ZOFRAN) tablet 4 mg (CANCELED)(Linked Group 3) 4 mg, Oral, EVERY 8 HOURS PRN, Starting on Mon05/11/15 at 1738, Until Mon05/12/15 at 1517, Nausea, Vomiting, If multiple antiemetics are ordered, use ondansetron first, prochlorperazine second, and metaclopramide third. PO Preferred. If patient unable to take PO, may give IV if ordered. May repeat times one in 45 minutes if ineffective., Routine 2153 (Given - Provider: Shell Sheriff RN) 0919 (See Alternative - Provider: Harini Britton) oxyCODONE (ROXICODONE) immediate release tablet 15 mg (CANCELED)(Linked Group 4) 15 mg, Oral, EVERY 4 HOURS PRN, Starting on Mon05/11/15 at 1309, Until Mon05/12/15 at 0922, Pain, severe pain (7-10), May give an additional 5 mg in 30 minutes once if pain not relieved. Severe pain (7-10), Routine 1751 (Given - Provider: Ze Cook RN)2154 (Given - Provider: Shell Sheriff RN) 0159 (Given - Provider: Shell Sheriff RN)0621 (Given - Provider: Shell Sheriff RN) prochlorperazine (COMPAZINE) tablet 10 mg (CANCELED)(Linked Group 5) 10 mg, Oral, EVERY 6 HOURS PRN, Starting on Mon05/11/15 at 1738, Until Mon05/12/15 at 1517, Nausea, Vomiting, If multiple antiemetics are ordered, use ondansetron first, prochlorperazine second, and metaclopramide third. PO Preferred. If patient unable to take PO, may give IV if ordered., Routine 0227 (Given - Provider: Shell Sheriff RN) promethazine (PHENERGAN) injection 12.5 mg (CANCELED) 12.5 mg, Intravenous, EVERY 30 MIN PRN, Nausea, Starting on Mon05/11/15 at 1226, 2 doses, Until Mon05/11/15 at 1658, If multiple antiemetics ordered, use ondansetron first and if ineffective use prochlorperazine second and if ineffective use promethazine, PACU Recovery 1354 (Given - Provider: Anabel Singh RN - Comment: iv site assessed prior to administration and benign) Linked Groups Order Group 1: famotidine (PEPCID) tablet 20 mg (CANCELED)Jump to med 20 mg, Oral, 2 TIMES DAILY, First dose on Mon05/11/15 at 2100, Until Discontinued, If unable to take PO, may give IV, Routine Or famotidine (PEPCID) injection 20 mg (CANCELED) 20 mg, Intravenous, 2 TIMES DAILY, First dose on Mon05/11/15 at 2100, Until Discontinued, Routine Group 2: acetaminophen (TYLENOL) tablet 650 mgJump to med 650 mg, Oral, EVERY 4 HOURS PRN, Starting on Mon05/11/15 at 1309, Until Mon05/12/15 at 1517, Pain, mild pain, May repeat once in 30 minutes if desired effect not achieved. Do not exceed 4000 mg acetaminophen per day. Mild pain (1-3)., Routine Or acetaminophen (TYLENOL) suppository 650 mg (CANCELED) 650 mg, Rectal, EVERY 4 HOURS PRN, Starting on Mon05/11/15 at 1309, Until Mon05/12/15 at 0922, Pain, mild pain, Give per rectum (AZ) if unable to take PO. May repeat once in 30 minutes if desired effect not achieved. Do not exceed 4000 mg acetaminophen per day. Mild pain (1-3)., Routine Group 3: ondansetron (ZOFRAN) tablet 4 mg (CANCELED)Jump to med 4 mg, Oral, EVERY 8 HOURS PRN, Starting on Mon05/11/15 at 1738, Until Mon05/12/15 at 1517, Nausea, Vomiting, If multiple antiemetics are ordered, use ondansetron first, prochlorperazine second, and metaclopramide third. PO Preferred. If patient unable to take PO, may give IV if ordered. May repeat times one in 45 minutes if ineffective., Routine Or ondansetron (ZOFRAN) injection 4 mg (CANCELED)Jump to med 4 mg, Intravenous, EVERY 8 HOURS PRN, Starting on Mon05/11/15 at 1738, Until Mon05/12/15 at 1517, Nausea, If multiple antiemetics are ordered, use ondansetron first, prochlorperazine second, and metaclopramide third. May repeat times one in 30 minutes if ineffective Group 4: oxyCODONE (ROXICODONE) immediate release tablet 10 mg (CANCELED) 10 mg, Oral, EVERY 4 HOURS PRN, Starting on Mon05/11/15 at 1309, Until Mon05/12/15 at 0922, Pain, mild to moderate pain (1-6), May give an additional 5 mg in 30 minutes once if pain not relieved. Mild to moderate pain (1-6), Routine Or oxyCODONE (ROXICODONE) immediate release tablet 15 mg (CANCELED)Jump to med 15 mg, Oral, EVERY 4 HOURS PRN, Starting on Mon05/11/15 at 1309, Until Mon05/12/15 at 0922, Pain, severe pain (7-10), May give an additional 5 mg in 30 minutes once if pain not relieved. Severe pain (7-10), Routine Group 5: prochlorperazine (COMPAZINE) tablet 10 mg (CANCELED)Jump to med 10 mg, Oral, EVERY 6 HOURS PRN, Starting on Mon05/11/15 at 1738, Until Mon05/12/15 at 1517, Nausea, Vomiting, If multiple antiemetics are ordered, use ondansetron first, prochlorperazine second, and metaclopramide third. PO Preferred. If patient unable to take PO, may give IV if ordered., Routine Or prochlorperazine (COMPAZINE) injection 10 mg (CANCELED) 10 mg, Intravenous, EVERY 6 HOURS PRN, Starting on Mon05/11/15 at 1738, Until Mon05/12/15 at 1517, Nausea, Vomiting, If multiple antiemetics are ordered, use ondansetron first, prochlorperazine second, and metaclopramide third., Routine documented in this encounter Care Teams Cake Stripper Relationship Specialty Start Date End Date Apple Quiñonez APRN PCP - General 01/14/14 06/19/16 documented as of this encounter
--- OUTSIDE RECORDS SUMMARY | 2023-12-27 19:48 | XMS_ITS | Encounter Summary ---
Author Organization [facility], [place] [address] Care Team Providers Care [place] Worker Name Role Phone Apple Walters APRN Primary Care Provider [phone] Encounter Details Date Type Department Care Team (Late st Contact Info) Description 04/13/2015 [place] [id number] Kristi Ritchie MD [facility] [place] [address] Social History Tobacco Use Types Packs/Day Years [...] PM EDT Office Visit Cardiology at [address] [id number] Rangel Willams MD [facility] [place] [address] documented as of this encounter Visit Diagnoses Not on filedocumented in this encounter Care Teams Antisqueak Worker Relationship Specialty Start Date End Date Apple Walters APRN PCP - General 01/14/14 06/19/16 documented as of this encounter
--- OUTSIDE RECORDS SUMMARY | 2023-12-27 19:48 | XMS_ITS | Encounter Summary ---
Author Organization [facility] [place] [address] Care Team Providers Care Supervisor Channel Process Name Role Phone Walters, [place] dee Rizzo APRN Primary Care Provider [phone]- [phone] Reason for Visit * Auth/Cert Specialty Diagnoses / Procedures Referred By Lang sanches Referred To Contact Diagnoses CAROTID ARTERY ANEURYSM S/P STAGE I NEUROFORM STENT PLACEMENT FOR RIGHT PAR OPHTHALMIC ARTERY ANEURYSM Procedures PRO PERM OCCLUSION/EMBOLIZATION, PERCUT, SOLID WASTE MANAGER ANGIOPLASTY-INTRACRANIAL Referral ID Status Reason Start Date Expiration Date Visits Re quested Visits Authorized [id number] 1 1 Encounter Details Date Type Department Care Team (Late st Contact Info) Description 06/01/2015 1:11 [place] [address] Alejandro Williamson MD [facility] [place] [address] Cee Mosley CRNA [facility] [place] [address] Anesthesia Record Procedure Summary Procedure Name Responsible Anesthesiologist Anesthesia Start Time Anesthesia Stop Time @ANGIOPLASTY-INTRAC RANIAL (WRVU 22.07) (Brain) Alejandro Williamson MD 06/01/15 1311 06/01/15 1449 Events Date Time Event Comment 06/01/2015 1230 1311 Start 1317 AN Verify 1317 An Start Data 1323 An Induction 1325 An Intubation 1327 Anesthesia Ready 1436 Extubation/LMA Out 1440 an stop data 1449 Recovery or ICU Handoff Oanh ent care was transferred to the destination unit staff after review of the patient's medical history, current anesthetic/surgical status and plan, according to the Provider Handoff Checklist. Patient breathing spontaneously, mouth suctioned, following commands. Meets extubation criteria. Extubated smoothly to 100% Fio2. Transported to PACU on 6L O2 FM. Report given to WATER TAXI OPERATOR. VSS. Pain 0. 1449 Stop Meds Name Total Midazolam 2 mg fentaNYL 100 mcg Propofol 200 mg Rocuronium 30 mg Ondansetron 4 mg Dexamethasone 4 mg Succinylcholine 80 mg Propofol INF 114.44 mg Heparin 5,000 Units lactated ringers infusion 1,000 mL 800 m L * Agents Name O2 Air Sevoflurane (et) * Blood No blood administrations on file. Lines, Drains, and Airways Type Details Placement Removal Incision 05/11/15; groin; 01/21/19; 1211 05/11/15 0000 by Anabel Singh RN 01/21/19 1211 by Ninfa Maxwell RN Urethral Catheter 06/01/15; Physician order; urethral catheter removed, tubing intact, per protocol/policy; 06/02/15; 0920 06/01/15 0000 by Esthela Ramirez RN 06/02/15 0920 by Isela Nash RN Incision 06/01/15; groin; ([facility]); 01/21/19; 1211 06/01/15 0000 by Esthela Ramirez RN 01/21/19 1211 by Ninfa Maxwell RN (RETIRED) Peripheral IV Line - Single Lumen 06/01/15; 1251; metacarpal vein left (top of hand); ebyi-jrf-wokdhb catheter system; 20 gauge, 1 in length; Kalee Phillips RN; distraction, intradermal injection, tolerated well, appears comfortable; 0; no longer indicated, catheter intact; 06/02/15; 1138 06/01/15 1251 by Kalee Phillips RN 06/02/15 1138 by Isela Nash RN ETT Mask Ventilation: Ea sy (1); ETT Type: Cuffed; ETT Size: 7 mm; Mac Blade: 3; Notes: Asleep, Pre-O2; Attempts: 1; Laryngoscopy Grade: 1; ETT Placement Verified By: Auscultation, Capnometry; Secured at Teeth: 21 cm; Inserted by: Cee Mosley CRNA; Removal Date: 06/01/15; Removal Time: 1436 06/01/15 1325 by Cee Mosley CRNA 06/01/15 1436 by Cee Mosley CRNA documented in this encounter Social History [...] OR Notes * Anesthesia Postprocedure Evaluation - Alejandro Williamson MD - 06/01/2015 4:35 PM EST [facility] Department of Anesthesiology Post-procedure Note Patient: Ghada Ervin Procedure Summary Date Anesthesia Start Anesthesia Stop Room / Location 06/01/15 1311 1449 [facility] / [facility] Procedure Diagnosis Surgeon Responsible Provider ANGIOPLASTY-INTRACRANIAL (N/A Brain) (CAROTID ARTERY ANEURYSM S/P STAGE I NEUROFORM STENT PLACEMENTFOR RIGHT PAR OPHTHALMIC ARTERY ANEURYSM) Johnny Bass MD Furman, William R, MD All Anesthesia Providers: Anesthesiologist: Alejandro Williamson MD COFFEE SHOP AIDE: Cee Mosley CRNA Last (1hr) Vitals: BP 117/79 mmHg (06/01/151614) Temp Pulse 64 (06/01/151614) Resp 15 (06/01/151614) SpO2 99 % (06/01/151614) Patient Location: PACU/[facility] Level of Consciousness: Awake and Alert Pain Management: Satisfactory Analgesia PONV: None Cardiovascular Status: At Baseline and Hemodynamically Stable Respiratory Status: At Baseline and Room Air Postoperative Fluid Status: Intravascular EUvolemia Possible Anesthetic Complications: NONE apparent at time of evaluation Final Primary Anesthesia Type: General (The anesthetic type performed was the same as planned.) Comments: Alejandro Williamson MD * Anesthesia Preprocedure Evaluation - Alejandro Williamson MD - 06/01/2015 12:30 PM EST Pre-Anesthesia Evaluation for: Ghada Ervin a 24 y.o. female. Procedure(s): ANGIOPLASTY-INTRACRANIAL Patient Active Problem List Diagnosis ??? Intracranial aneurysm ??? Spondylosis of lumbar [...] syndrome ??? Fibromyalgia ??? Migraines Past Medical History Diagnosis Date ??? Heart palpitations 01/15/2014 ??? Chronic pain syndrome 01/15/2014 ??? Fibromyalgia 01/15/2014 ??? Migraines 01/15/2014 ??? ADD (attention deficit disorder) 09/18/2014 ??? Scoliosis 09/18/2014 Past Surgical History Procedure Laterality Date ??? Created by interface ARTHRODESIS, POSTERIOR , SPINAL DEFORMITY,7-12 SEGMENTS / LEG/T10/T11/T12/T3/T4/T5/T6/T7/T8/T9 Procedure Date: 06/19/2007 ??? Created by interface AUTOGRAFT FOR SPINE,LOCAL,SAME INCISION Procedure Date: 06/19/2007 ??? Created by interface Entered not Verified Procedure Date: 04/22/2010 ??? Created by interface POSTERIOR SEGMENTAL INSTRUMENTATION; 7-12 VERTEBRAL SEG. / T10/T11/T12/T3/T4/T5/T6/T7/T8/T9 Procedure Date: 06/19/2007 ??? N/A 05/11/2015 ANGIOPLASTY-INTRACRANIAL performed by Johnny Bass MD at [facility] History Substance Use Topics ??? Smoking status: Current Every Day Smoker -- 1.00 packs/day for 8 years Types: Cigarettes ??? Smokeless tobacco: Never Used ??? Alcohol Use: No History Drug Use ??? Yes ??? Special: Pain Pills (oxycontin, oxycodone, morphine, etc), Marijuana Allergies Allergen Reactions ??? Bee Pollen Anaphylaxis ??? Meperidine Hcl Anaphylaxis and Other (See Comments) flushing, respiratory trouble ??? [place] Other (See Comments) Flu like sx ??? Zoloft [Sertraline] Other (See Comments) Flu like sx Medications: MAR and/or home medications have been reviewed. Physical Exam: There were no vitals filed for this visit. There is no weight on file to calculate BMI. Airway Assessment: Mallampati: I TM distance: >3 FB Neck ROM: full Cardiovascular Assessment: cardiovascular exam normal Pulmonary Assessment: pulmonary exam normal Dental Assessment: - normal exam Misc Assessment: IV access: Peripheral line Anesthesia Plan: ASA 2 General, Region - Intracranial (vascular) Informed Consent: Anesthetic plan and risks discussed with patient and mother. Use of blood products discussed with patient and mother whom. Plan discussed with COFFEE SHOP AIDE. PAT Staff Note documented in this encounter Plan of Treatment Upcoming Encounters Date Type Department Care Team (Late st Contact Info) Description 01/24/2024 3:40 PM EDT Office Visit Cardiology at [address] [address] Rangel Willams MD [facility] [place] [address] documented as of this encounter Visit Diagnoses Not on filedocumented in this encounter Administered Medications Inactive Administered Medications - up to 3 most recent administrations Medication Order MAR Action Action Date Dose Rate Site dexamethasone (DECADRON) injection PRN, Starting on Mon06/01/15 at 1332, Until Mon06/01/15 at 1449, Anesthesia Intra-op, Routine Given 06/01/2015 1:32 PM EST 4 mg fentaNYL 50 mcg/mL multi-dose injection PRN, Starting on Mon06/01/15 at 1323, Until Mon06/01/15 at 1449, Pain, Anesthesia Intra-op, Routine Given 06/01/2015 1:23 PM EST 100 mcg heparin (porcine) injection PRN, Starting on Mon06/01/15 at 1410, Until Mon06/01/15 at 1449, Anesthesia Intra-op, Routine Given 06/01/2015 2:10 PM EST 5,000 Units midazolam (PF) (VERSED) 1 mg/mL multi-dose injection PRN, Starting on Mon06/01/15 at 1311, Until Mon06/01/15 at 1449, Sleep, Anesthesia Intra-op, Routine Given 06/01/2015 1:11 PM EST 2 mg ondansetron (ZOFRAN) injection PRN, Starting on Mon06/01/15 at 1426, Until Mon06/01/15 at 1449, Nausea, Anesthesia Intra-op, Routine Given 06/01/2015 2:26 PM EST 4 mg propofol (DIPRIVAN) 10 mg/mL bolus injection (Anesthesia) PRN, Starting on Mon06/01/15 at 1323, Until Mon06/01/15 at 1449, Anesthesia Intra-op Given 06/01/2015 1:59 PM EST 40 mg Given 06/01/2015 1:23 PM EST 160 mg propofol (DIPRIVAN) infusion CONTINUOUS PRN, Starting on Mon06/01/15 at 1358, Until Mon06/01/15 at 1449, Anesthesia Intra-op, Routine New Bag 06/01/2015 1:58 PM EST 30 mcg/kg/min 13.5 mL/hr rocuronium (ZEMURON) multi-dose injection PRN, Starting on Mon06/01/15 at 1332, Until Mon06/01/15 at 1449, Anesthesia Intra-op, Routine Given 06/01/2015 1:32 PM EST 30 mg succinylcholine (ANECTINE) injection PRN, Starting on Mon06/01/15 at 1324, Until Mon06/01/15 at 1449, Anesthesia Intra-op, Routine Given 06/01/2015 1:24 PM EST 80 mg documented in this encounter Care Teams Supervisor Channel Process Relationship Specialty Start Date End Date Apple Walters APRN PCP - General 01/14/14 06/19/16 documented as of this encounter
--- OUTSIDE RECORDS SUMMARY | 2023-12-27 19:48 | XMS_ITS | Encounter Summary ---
[place] [address] Care Team Providers Care Metal Miner Blasting Name Role Phone Apple Walters APRN Primary Care Provider [phone]- [phone] Reason for Referral * Diagnostic Test (Routine) - Closed Specialty Diagnoses / Procedures Referred By Contrina t Referred To Contact Radiology Diagnoses Carotid artery aneurysm Procedures IR embolization intracranial Karlo Bass MD [facility] [place] [address] [place] [address] Referral ID Status Reason Start Date Expiration Date V isits Requested Visits Authorized [id number] Closed Specialty Service Requested 06/01/2015 05/31/2016 1 1 Encounter Details Date Type Department Care Team (Late st Contact Info) Description 05/19/2015 Orders [place] [address] Karlo Bass MD [facility] [place] [address] Carotid artery aneurysm Social History Tobacco Use [...] PM EDT Office Visit Cardiology at [address] [address] Rangel Willams MD [facility] [place] [place] [address] documented as of this encounter Results * IR embolization intracranial (06/01/2015 2:45 PM EST) Anatomical Region Laterality Modality Head X-Ray Angiograph y Narrative 06/03/2015 1:07 PM EST Procedure: ??Stage II coil embolization of paraclinoid aneurysm on the right. Surgeon is Karlo Bass M.D. Cardiopulmonary Technologist Chief is Dino Martinez M.D. Operative Note: ??The patient presents to the angio suite. ??General endotracheal anesthesia is induced. ??Bifemoral sites are shaved then prepped and draped in sterile fashion. ??A gala incision is made over the region and the right femoral artery accessed with a single-wall needle technique. ??A DailyPathson wire is passed in the vessel and over it a 6-Liberian sheath connected to a continuous heparinized flush solution. ??A 6-Liberian guide catheter is transnavigated over an 0.035 angled Glidewire to select the internal carotid artery on the right. Diagnostic runs are performed. ??Heparin is given as a bolus. ??An 0.010 microcatheter is transnavigated over an 0.014 wire to select the previously stented aneurysm. ??A series of coils are deployed in the aneurysm with control angiography being performed before and after coil embolization to confirm appropriate placement. ??After successful embolization the microcatheter is withdrawn. ??Final diagnostic runs are performed. ??The guide catheter is withdrawn, and the Mynx is used to achieve hemostasis at the puncture arteriotomy. ??The patient emerges from anesthesia in stable cardiodynamic condition and is transferred to the PACU for further monitoring on heparin. Supervision and Interpretation: 1. ??Right internal carotid artery injection, multiple intracranial projections, demonstrates the previously placed Neuroform stent intact and covering the aneurysm neck. 2. ??Progressive angiography during embolization demonstrates coil embolization of the paraclinoid aneurysm with preservation of regional angioarchitecture. Summary: ??Successful stent coil construct for a paraclinoid aneurysm on the right. I was present for the entire case and made all clinical decisions regarding care. KARLO BASS MD 06/01/2015 Procedure Note Karlo Bass MD - 06/03/2015 Procedure: Stage II coil embolization of paraclinoid aneurysm on theright. Surgeon is Karlo Bass M.D. Cardiopulmonary Technologist Chief is Dino Martinez M.D. Operative Note: The patient presents to the angio suite. Generalendotracheal anesthesia is induced. Bifemoral sites are shaved then prepped and drapedin sterile fashion. A gala incision is made over the region and the rightfemoral artery accessed with a single-wall needle technique. A Piece of Cake wire ispassed in the vessel and over it a 6-Liberian sheath connected to a continuous heparinized flush solution. A 6-Liberian guide catheter is transnavigatedover an 0.035 angled Glidewire to select the internal carotid artery on theright. Diagnostic runs are performed. Heparin is given as a bolus. An 0.010 microcatheter is transnavigated over an 0.014 wire to select thepreviously stented aneurysm. A series of coils are deployed in the aneurysm withcontrol angiography being performed before and after coil embolization toconfirm appropriate placement. After successful embolization the microcatheteris withdrawn. Final diagnostic runs are performed. The guide catheter is withdrawn, and the Mynx is used to achieve hemostasis at the puncture arteriotomy. The patient emerges from anesthesia in stablecardiodynamic condition and is transferred to the PACU for further monitoring onheparin. Supervision and Interpretation: 1. Right internal carotid artery injection, multiple intracranialprojections, demonstrates the previously placed Neuroform stent intact and coveringthe aneurysm neck. 2. Progressive angiography during embolization demonstrates coilembolization of the paraclinoid aneurysm with preservation of regionalangioarchitecture. Summary: Successful stent coil construct for a paraclinoid aneurysm onthe right. I was present for the entire case and made all clinical decisionsregarding care. KARLO BASS MD 06/01/2015 Karlo Bass MD IMG IR ORDERABLES documented in this encounter Visit Diagnoses Diagnosis Carotid artery aneurysm Aneurysm of artery of neck Carotid artery aneurysm Aneurysm of artery of neck documented in this encounter Care Teams Metal Miner Blasting Relationship Specialty Start Date End Date Apple Walters APRN PCP - General 01/14/14 06/19/16 documented as of this encounter
--- OUTSIDE RECORDS SUMMARY | 2023-12-27 19:48 | XMS_ITS | Encounter Summary ---
[place] [address] Care Team Providers Care [address] Office Assistant Name Role Phone Stephanie Quiñonez Matthias ALVAREZ Primary Care Provider [phone] Reason for Visit * Reason Comments Headache Encounter Details Date Type Department Care Team (Late st Contact Info) Description 04/15/2015 2:19 PM EST - 04/15/2015 10:50 PM [place] [address] Johnny Moya MD [facility] [place] [address] Pain (Primary Dx); Headache(784.0); Cerebral aneurysm, nonruptured Discharge Disposition: Home Social History Tobacco Use [...] Sign Reading Time Taken Comments Blood Pressure 107/66 04/15/2015 10:23 PM EST Pulse 101 04/15/2015 5:45 PM EST Temperature 36.6 ??C (97.9 ??F) 04/15/2015 10:[address] Respiratory Rate 14 04/15/2015 7:54 PM EST Oxygen Saturation 99% 04/15/2015 10:24 PM EST Inhaled Oxygen Concentration - - Weight 72.6 kg (160 lb) 04/15/2015 2:31 PM EST Height - - Body Mass Index 29.26 03/27/2015 12:49 PM EST documented in this encounter Discharge Instructions * Discharge Instructions* Dayan Caldwell - 04/15/2015 10:09 PM EST You were admitted for a severe headache. Your MRI did not show evidence of any bleeding in your head, but did show stable size of the aneurysm that we knew about. Dr. Ritchie had outlined a plan for you for migraine rescue, unfortunately you do not think any of these medications work well for you. I am sorry that this regimen is ineffective; I recommend that you follow up with Dr Ritchie to come up with a new rescue plan to manage your headaches. I also recommend that you follow up with your pain specialist to touch base. If you experience any confusion, acute worsening of headache, vomiting or new and concerning symptoms, you should seek urgent care. documented in this encounter Medications at Time [...] mL 0 03/27/2015 05/12/2015 Miscellaneous Medical Supply [facility] for two intranasal mucosal atomizing devices for use with naloxone syringe. 2 each 0 03/27/2015 05/12/2015 dihydroergotamine (MIGRANAL) 0.5 mg/pump act. (4 mg/mL) Sabine, Non-Aerosol Migranal nasal spray, 1 spray in [...] needed. 04/29/2021 documented as of this encounter ED Notes * Greg Monte RN - 04/15/2015 10:29 PM EST 20 gauge to right ac removed. Intact. Site WDL. * Greg Monte RN - 04/15/2015 10:25 PM EST S= pt reports minimal decrease in pain, despite admin of toradol and oxycodone. O=pt resting comfortably while she texts on her phone. * Greg Monte RN - 04/15/2015 8:14 PM EST MRI complete, awaiting Neuro for evaluation of results. * Lyle Werner RN - 04/15/2015 6:00 PM EST MD [place] at bedside discussing pain management, pt. Refusing to go to MRi until she gets sedation. made aware. * Lyle Werner RN - 04/15/2015 4:00 PM EST Pt c/o chronic back pain, pt sleeping in bed when resident came to re eval pt, will continue to monitor. * Lyle Werner RN - 04/15/2015 3:34 PM EST Pt Seen and evaluated by Neurology, resting in bed in NAD at this time. * Dayan Caldwell - 04/15/2015 2:23 PM EST Resident ED Note Chief Complaint Patient presents with ??? Headache HPI Ghada is here for headache. She has had an ongoing CUADRA for 2 months. It waxes and wanes. It is a constant all over ache with bursts of severe pain in left temporal lobe; also occasionally gets bursts other places. She saw neurology here and had an MRI which showed a 6-7 mm aneurysm in right opthalmic artery. Today she was at work and was so tired that she couldn't keep her eyes open. She was having trouble writing. I just blinked and her boss said her eyes were closed to a good 30 seconds. She looked down and she had written squiggles She got in her car and started to drive and was struggling to keep herself awake. She felt faint and weak. She pulled over and had a sudden CUADRA behind her right eye (typically CUADRA comes on gradually). She called her Mom; Mom stayed on the phone with her for one exit, then per Mom she stoppped responding so Mom called 911. Her current CUADRA is the same as her usual CUADRA, but more severe. Currently CUADRA is all over, laying on the pillow makes it worse. She has waves of pain radiating from back of head to eyes. Pain is 10/10. Of note, patient also follows with the pain clinic for chronic back pain. No fevers No cough No congestion Daily nausea and vomiting No current facility-administered medications on file prior to encounter. Current Outpatient Prescriptions on File Prior to Encounter Medication Sig Dispense Refill ??? oxyCODONE-acetaminophen (PERCOCET) 10-325 mg Tablet Take 1 tablet by mouth every 6 hours as needed for Pain (no more than 4 per day) for up to 28 days. Indications: Pain 112 tablet 0 ??? nalOXone (NARCAN) 1 mg/mL Syringe For opioid overdose,spray 1 mL in each nostril. Repeat after 3-5 minutes if no or minimal response. Call 911 before administration. 4 mL 0 ??? Miscellaneous Medical Supply [facility] for two intranasal mucosal atomizing devices for use with naloxone syringe. 2 each 0 ??? dextroamphetamine-amphetamine (ADDERALL XR) 20 mg Capsule, Sust. Release 24 hr Take 20 mg by mouth every morning. ??? dihydroergotamine (MIGRANAL) 0.5 mg/pump act. (4 mg/mL) [place], Non-Aerosol Migranal nasal spray, 1 spray in each nostril, wait 15 minutes then repeat x 1 for a total of 4 sprays daily. Limit use to 2x weekly. 8 mL 3 ??? naproxen sodium (ANAPROX) 550 mg Tablet Take 1 tablet by mouth 2 times daily as needed. 60 tablet 12 ??? hydrOXYzine (VISTARIL) 25 mg Capsule Take 1 capsule by mouth 2 times daily as needed. 60 capsule 3 ??? cyproheptadine (PERIACTIN) 4 mg Tablet Take 1 tablet by mouth nightly. 30 tablet 3 ??? promethazine (PHENERGAN) [address] 1 suppository rectally every 6 hours as neededfor Nausea. 15 suppository 3 ??? ondansetron (ZOFRAN) 8 mg Tablet Take 8 mg by mouth every 8 hours as needed for Nausea. ??? pregabalin (LYRICA) 75 mg Capsule Take 1 capsule by mouth 2 times daily. For 7 days, then increase to 2 tabs twice per day Indications: Fibromyalgia 106 tablet 0 ??? magnesium 250 mg Tablet Take 250 mg by mouth 2 times daily. ??? potassium chloride (KLOR-CON M20) 20 mEq Tab Sust.Rel. Particle/Crystal Take 20 mEq by mouth 2 times daily. ??? ALPRAZolam (XANAX) 0.5 mg Tablet Take 0.5 mg by mouth daily as needed for Sleep or Anxiety (no more than 10 per month). Indications: Panic Disorder ??? nitrofurantoin (MACRODANTIN) 100 mg Capsule Take 100 mg by mouth nightly. ??? topiramate (TOPAMAX) 50 mg Tablet Take 50 mg by mouth 2 times daily. ??? milnacipran (SAVELLA) 50 mg Tablet Take 50 mg by mouth 2 times daily. ??? omeprazole (PRILOSEC) 20 mg Capsule, Delayed Release(E.C.) Take 20 mg by mouth nightly. ??? Mometasone 50 mcg/actuation Sabine, Non-Aerosol 1 spray by Nasal route as needed. ??? Qsv-Ilncwgxnzd-Ndqtjiluhj-Caf 37-241-94-30 mg Capsule Take 1 tablet by mouth every 4 hours as needed. ??? calcium carbonate (TUMS) 200 mg calcium (500 mg) Tablet, Chewable Take 2 tablets by mouth dailyas needed. Allergies Allergen Reactions ??? Bee Pollen Anaphylaxis ??? Meperidine Hcl Anaphylaxis and Other (See Comments) flushing, respiratory trouble ??? [place] Other (See Comments) Flu like sx ??? Zoloft [Sertraline] Other (See Comments) Flu like sx Review of Systems Per HPI Physical Exam GEN: alert, awake, interactive, speaking slowly but clearly. HEENT: MMM, NCAT, EOMI, Complains of decreased sensation to light touch on whole face. CV: RRR, no murmur, no extra heart sounds RESP: Good aeration, no increased WOB, lungs CTAB/L no wheezes or crackles. ABD: soft, NT, ND, no HSM EXT: Moving all extremities equally. WWP. NEURO: Alert. MS appropriate for age. Endorses diplopia. CN 5 intact, but weak. CN 7 is intact in that patient can squint both eyes, but smiles using only left side of mouth. CN 12 intact but patientendorses difficulty moving her tongue out of her mouth. Endorses numbness of arms and legs. Initially endorses left sided numbness for RN, then right sided numbness for my exam. Process Design Engineer strength 4/5, hip flexion 3/5 but patient is able to draw knees up in bed when not examined. Procedures MDM ED Course: Magnesium 1 mg Toradol 30 mg MRI/MRA showed stable size of cerebral aneursym. Assessment: 24 year old female with headache. This headache is similar to her usual headaches, but more severe. An MRI/MRA and CT scan were all reassuring against intracranial hemorrhage or mass. Shedoes not have fevers, meningisimus. She did not respond well to magnesium, but, when offered the headache regimen suggested by Dr. Ritchie in her note from 03/25, patient stated that these medications do not work for her. She requested opiates for her back pain and headache. At this point, I had already given her one dose of oxycodone 10- acetaminophen 325 for her back pain as is prescribed for her by Dr. Watts. I explained that opiate medications are not a good choice for headache and that I donot want to prescribe these for her especially because she sees a pain specialist and has a specific regimen. I gave her ketorolac 30 mg. Patient requested to go home. Dayan Caldwell MD Resident 04/15/15 [id number] Associated attestation - Johnny Moya MD - 04/16/2015 12:02 PM EST Emergency Medicine Attending Note: The patient was seen and evaluated with the resident physician. I interviewed the patient myself toverify farfan portions of the history. I performed the farfan elements of the physical exam myself. I have reviewed all diagnostic studies personally including labs, imaging studies and EKGs. I have discussed the details of the case with the resident and agree with the assessment and plan as described inthe resident note above unless noted otherwise below. documented in this encounter Miscellaneous Notes * ED Triage - Lyle Werner RN - 04/15/2015 2:22 PM EST Pt. Transfer from [facility], c/o severe headache/blurry vision. Pt. AOx4, LOPEZ, decreased sensation to LUE/LLE/L face w. Weakness, speech clear, PERRLA 3mm. Pt. Had MRi done at cerebral aneurysm found. To be evaluated by Neuro. * Consult Note - Taya Jimenez MD - 04/15/2015 2:12 PM EST Neurology History and Physical Patient name: Ghada Ervin Date of : 1990 PCP: STEPHANIE QUIÑONEZ APRN CC: headache HPI: Ghada Ervin is a 24 y.o. with PMH of fibromyalgia, scoliosis, chronic back pain s/p thoracic fusion and Tejeda rods (2007), recently diagnosed migraine, hypomagnesemia and hypokalemia related to a syncopal episode, petit mal seizures as a child (last med she was on is Depakote), renal calculi, recurrent UTIs, reentrant SVTs s/p ablation, bipolar disorder, anxiety disorder, depression,ADHD, GERD, dysmenorrhea, who was transferred to [facility] from [facility]. Patient reports that she developed sudden onset right-sided headache today while driving, as well as lightheaded, disoriented and tired. She pulled over and called her mother, and patient reports that the mother called 911 because the patient was not responding for approximately 45 seconds while on the telephone. Mother reported that it sounded like the patient was drunk. Patient describes that her pain is exacerbated with movement, causing pain to radiate from the occiput to retro-orbitally bilaterally, R>L.She is getting sharp pains all over her head on top of the constant ache with associated photophobia. This is similar to her baseline headache, but the severity is much worse. Severity is rated as high as 10/10 today. She was seen by Dr. Ritchie in the headache clinic on 03/25 for initial headache evaluation, and the impression was chronic migraine with and without aura with a likely component ofmedication overuse headache due to percocet, fioricet with codeine, imitrex, and excedrin use. 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 For the past couple of months she reports having intermittent diplopia (images overlap [id number]) with decreased acuity, seeing black spots, and trails in her vision. She had a black out spell today at work for about a minute, reporting that she closed her eyes briefly but was told that it was more like a minute. Patient also reports that it is hard for her to talk because her lips are numb, but not completely numb. This has been going on for the past month, but beginning last night she states that she has been slurring her words. Three weeks ago she had several days of sharp right ear pain. She was seen by a physician and reportedly did not have an infection. The pain returned today while at OSH, and is associated with tinnitus. For the last few weeks she has felt off balance with vertigo, as well as lightheadedness when she bends over and stands up quickly. Two months ago she was in the restroom, bent over, stood up, saw tunnel vision, and fell into theshower door. She was unconscious and was observed to be violently shaking for approximately 2 minutes. She was confused when she woke up, but was interacting normally. It was at this time that she was found to be hypokalemic and hypomagnesemic. She follows with the pain clinic for her chronic back pain, as well. She has been unable to taper her pain meds to reduce possible medication overuse headache. CT had at OSH was read as normal with no acute bleed or traumatic changes At OSH she was given IV ondansetron and IV dilaudid. Past Medical History: Past Medical History Diagnosis Date ??? Heart palpitations 01/15/2014 ??? Chronic pain syndrome 01/15/2014 ??? Fibromyalgia 01/15/2014 ??? Migraines 01/15/2014 ??? ADD (attention deficit disorder) 09/18/2014 ??? Scoliosis 09/18/2014 Medications: Percocet 10 mg q6h prn Lyrica 150 mg BID Magnesium 250 mg BID Naprosyn 550 mg BID PRN Visteril 25 mg BID PRN Cyproheptidine 4 mg nightly Topamax 50 mg BID Phenegran 25 mg PRN q6 Zofran 8 mg q8h prn Potassium 20 meq BID Xanax 0.5 mg PRN Allergies Allergen Reactions ??? Bee Pollen Anaphylaxis ??? Meperidine Hcl Anaphylaxis and Other (See Comments) flushing, respiratory trouble ??? [place] Other (See Comments) Flu like sx ??? Zoloft [Sertraline] Other (See Comments) Flu like sx Family History Problem Relation Age of Onset ??? Depression Mother ??? Hypertension Father ??? Diabetes Father ??? Depression Father ??? Diabetes Paternal Aunt ??? Hypertension Paternal Aunt ??? Diabetes Paternal Uncle ??? Hypertension Paternal Uncle ??? Hypertension Maternal Grandmother ??? Coronary Artery Disease Maternal Grandmother ??? Diabetes Maternal Grandfather ??? Diabetes Paternal Grandmother ??? Coronary Artery Disease Paternal Grandmother ??? Hypertension Paternal Grandfather History Social History Narrative smokes 1/2 PPD on and off for 10 years. Rare EtOH (once per month). Marijuana several times per week. Lives with her fiance and 4 children. Review of systems: Constitutional: No fevers, +chills several days ago associated with feeling dizzy Eyes: Per HPI ENT: No rhinorrhea or pharyngitis, no meningismus CV: No chest pain or palpitations Resp: No cough, +shortness of breath while driving today GI: +daily nausea, vomiting, constipation : No dysuria, no incontinence Heme: No bleeding or bruising Endo: No diabetes or thyroid disease Neuro: See HPI Psych: +depression [x] Review of systems otherwise negative Physical Exam: Vitals: Temp: -- Heart Rate: [77] Resp: [12] BP: (123)/(68) SpO2: [100 %] Constitutional: Patient of apparent stated age, well nourished, well developed, appears somewhat uncomfortable Neck: Supple, no meningismus, no carotid bruit CV: RRR, S1, S2, no murmur Resp: CTAB Abd: Soft, nontender, nondistended Ext: No edema. No bony deformity Neuro: MS: Alert, oriented, clear language, no dysarthria. Naming and repetition intact. Speech slightly slowed, no aphasia. CN: PERRL, EOMI, visual acuity 20/40 OS and 20/30 OD, reported diplopia when testing right eye, visual ching full, reduced light touch on left sided of face in V1-V3, no facial asymmetry, hearing intact to whisper, palate elevates symmetrically, tongue protrudes midline, SCM and trap strength intact Motor: Normal bulk and tone. 5/5 strength in bilateral upper and lower extremities, effort-dependent Sensation: Reduced vibration in bilateral UEs distal to the wrist, reduced vibration in bilateral LEs distal to the knees (R more affected than L). Reduced light touch in bilateral LEs (R more affected than L). Temperature inconsistently reduced in the RUE and RLE. Proprioception intact in bilateral great toes. Reflexes: 2+ DTRs, toes mute Coordination: Finger to nose intact Gait: not tested Labs: No results found for this or any previous visit (from the past 24 hour(s)). Diagnostic Tests and Imaging: CT head OSH: per my read, negative for hemorrhage, acute infarct MRI brain w/wo contrast, 04/09: FINDINGS: Ventricles and sulci are of normal size and configuration. There is no focal intra-axial lesion, acute intracranial hemorrhage, recent infarction, extra-axial collection, or intracerebral mass. The subarachnoid space shows no signal abnormality. There is a prominent flow-void at the supraclinoid right internal carotid artery and on postcontrast imaging this appears to represent a 6-7 mm right ophthalmic aneurysm.. Osseous structures are of normal appearance. The paranasal sinuses and mastoids are clear. The orbits are of normal appearance. IMPRESSION IMPRESSION: Probable 6-7 mm right ophthalmic aneurysm. Unexpected finding. Otherwise normal MRI of brain. Assessment: 24 y/o woman with extensive medical history, who was [facility] with [facility] deficit and two episodes of unresponsiveness today. Exam is somewhat inconsistent, notable for mildly slowed speech, sensory changes throughout, slightlyreduced visual acuity, and mild grossly diffuse effort-dependent weakness. The acute onset of her he adache is unlikely to be subarachnoid hemorrhage, and unlikely to be related to her known R ophthalmic artery aneurysm. The episodes of unresponsiveness reported happened today, although are concerning for possible seizure given her personal history of seizure disorder, are also not typical for complex partial seizure. Will obtain MRI/MRA brain to evaluate the status of her aneurysm and rule out small subarachnoid. Current symptoms are likely migraine related, symptomatic treatment needed. If MRI/MRA without acute pathology, can be discharge home to continue management with pain/headache clinic and neurosurgery as outpatient. Plan: #headache -MRI/MRA brain -magnesium 1 g IV over 15 minutes for pain management. -1 L IV fluids bolus -consider increasing topamax for both seizure and migraine prophylaxis - Consider EEG as outpatient. #chronic pain - pain control per ED Case discussed with attending Dr. Aldana. Jean Durán MD Neurology Resident, PGY-2 Personal Pager [phone] Vascular Neurology pager [phone] 04/15/2015 Neurology Attending Attestation I evaluated the patient with the Neurology Residents in the ER. I have reviewed the medical recordsand patient's history, as well as the resident???s and student's history and examination findings and I agree with the details as written. My neurologic examination confirms the resident???s findings. We formulated the assessment and plan after a detailed discussion, as documented. Taya Jimenez MD Vascular Neurology 04/15/2015 9:57pm MRI reviewed, no acute intracranial pathology. Can be discharge home. Follow up in headache clinic and neurosurgery. Taya Honeycutt MD documented in this encounter Plan of Treatment Upcoming Encounters Date Type Department Care Team (Late st Contact Info) Description 01/24/2024 3:40 PM EDT Office Visit Cardiology at [address] [phone] Rangel Willams MD [facility] [place] [address] documented as of this encounter Procedures Procedure Name Priority Date/Time Associated Diagnosis Comments MRI HEAD ANGIOGRAM AND MRI BRAIN WO CONTRAST Routine 04/15/2015 7:35 PM EST FILM LIBRARY STORAGE ONLY CT HEAD AND SPINE STAT 04/15/2015 12:00 AM EST Pain documented in this encounter Results * MRI Head Angiogram And MRI Brain WO Contrast (04/15/2015 7:35 PM EST) Anatomical Region Laterality Modality Head Magnetic Resonan ce Impressions 04/15/2015 8:52 PM EST IMPRESSION: 1. ??Unchanged, 6 x 5 mm right paraophthalmic artery aneurysm. 2. ??No acute hemorrhage, mass effect or evidence of ischemia. I have personally reviewed the image(s) and the residents interpretation and agree with the findings, Elva John at 04/15/2015 8:52 PM Narrative 04/15/2015 8:52 PM EST EXAMINATION: MRI HEAD ANGIOGRAM AND MRI BRAIN WO CONTRAST CLINICAL HISTORY: acute onset headache, known migraine, recently discovered to have R ophthalmic artery aneurysm TECHNIQUE: MRI brain and MRA [place] without contrast. 3-D reformats were generated on a separate workstation. COMPARISON: MRI brain 04/09/2015, CT head 04/15/2015 FINDINGS: MRI: No restricted diffusion to suggest acute infarction. No acute hemorrhage, mass effect or midline shift. No extra-axial collection. The ventricles are normal in size and contour. The visualized midline structures are normal. Mild thickening of the left nasal mucosa, otherwise the visualized paranasal sinuses and mastoid air cells are clear. MRA: There is a prominent flow void at the supraclinoid right internal carotid artery and on [id number] imaging this represents a 6 x 5 mm mm right paraophthalmic artery aneurysm. This is unchanged in size or configuration when compared with the prior MRI. Apparent narrowing of the proximal anterior cerebral arteries on the anterior circulation MIP images is likely artifactual. The remaining portions of the internal carotid, middle cerebral, anterior cerebral and anterior communicating arteries are patent without focal narrowing or aneurysmal dilatation. The posterior communicating, posterior cerebral and basilar artery are normal. Procedure Note Elva John MD - 04/15/2015 EXAMINATION: MRI HEAD ANGIOGRAM AND MRI BRAIN WO CONTRAST CLINICAL HISTORY: acute onset headache, known migraine, recentlydiscovered to have R ophthalmic artery aneurysm TECHNIQUE: MRI brain and MRA [place] without contrast. 3-Dreformats were generated on a separate workstation. COMPARISON: MRI brain 04/09/2015, CT head 04/15/2015 FINDINGS: MRI: No restricted diffusion to suggest acute infarction. No acutehemorrhage, mass effect or midline shift. No extra-axial collection. The ventriclesare normal in size and contour. The visualized midline structures arenormal. Mild thickening of the left nasal mucosa, otherwise the visualizedparanasal sinuses and mastoid air cells are clear. MRA: There is a prominent flow void at the supraclinoid right internalcarotid artery and on [id number] imaging this represents a 6 x 5 mm mm right paraophthalmic artery aneurysm. This is unchanged in size or configurationwhen compared with the prior MRI. Apparent narrowing of the proximal anterior cerebral arteries on theanterior circulation MIP images is likely artifactual. The remaining portions ofthe internal carotid, middle cerebral, anterior cerebral and anteriorcommunicating arteries are patent without focal narrowing or aneurysmal dilatation.The posterior communicating, posterior cerebral and basilar artery arenormal. IMPRESSION IMPRESSION: 1. Unchanged, 6 x 5 mm right paraophthalmic artery aneurysm. 2. No acute hemorrhage, mass effect or evidence of ischemia. I have personally reviewed the image(s) and the residents interpretationand agree with the findings, Elva John at 04/15/2015 8:52 PM Taya Jimenez MD [facility] [place] * Film Library- Storage Only CT Head And Spine (04/15/2015 12:00 AM EST) Narrative User, Generic Transmittal - 04/15/2015 12:31 PM EST See PACS for result report. Johnny Moya MD [facility] [place]M LIBRARY ORD ERABLES documented in this encounter Visit Diagnoses Diagnosis Pain- Primary Generalized pain Headache(784.0) Headache Cerebral aneurysm, nonruptured documented in this encounter Administered Medications Inactive Administered Medications - up to 3 most recent administrations Medication Order MAR Action Action Date Dose Rate Site ketorolac (TORADOL) injection 30 mg 30 mg, Intravenous, ONCE, 1 dose, On Mon04/15/15 at 2204, STAT Given 04/15/2015 10:06 PM EST 30 mg LORazepam (ATIVAN) injection 1 mg 1 mg, Intravenous, ONCE, 1 dose, On Mon04/15/15 at 1814, STAT Given 04/15/2015 6:14 PM EST 1 mg magnesium sulfate 1g in dextrose 5% 100mL 1 g, Intravenous, ONCE, 1 dose, On Mon04/15/15 at 1551, Administer over 60 Minutes, Please give over 15 minutes Given 04/15/2015 4:07 PM EST 1 g 100 mL/hr oxyCODONE-acetaminophen (PERCOCET) 5-325 mg per tablet 2 tablet 2 tablet, Oral, ONCE, 1 dose, On Mon04/15/15 at 1817, Maximum dose of acetaminophen is 4000 mg from all sources in 24 hours., STAT Given 04/15/2015 6:19 PM EST 2 tablets sodium chloride 0.9% 1,000 mL IV bolus at 1,000 mL/hr, Intravenous, ONCE, 1 dose, On Mon04/15/15 at 1551 Given 04/15/2015 4:07 PM EST 1000 mL/hr documented in this encounter Active and Recently Administered Medications Times are shown in EST. Scheduled Medication Order 04/13/2015 04/14/2015 04/15/2015 ketorolac (TORADOL) injection 30 mg (COMPLETED) 30 mg, Intravenous, ONCE, 1 dose, On Mon04/15/15 at 2204, STAT 2206 (Given - Provid er: Greg Monte RN) LORazepam (ATIVAN) injection 1 mg (COMPLETED) 1 mg, Intravenous, ONCE, 1 dose, On Mon04/15/15 at 1814, STAT 1814 (Given - Provid er: Lyle Werner RN - Comment: given for MRI) magnesium sulfate 1g in dextrose 5% 100mL (COMPLETED) 1 g, Intravenous, ONCE, 1 dose, On Mon04/15/15 at 1551, Administer over 60 Minutes, Please give over 15 minutes 1607 (Given - Provid er: Lyle Werner RN - Comment: run over 15min as per Neurology team) oxyCODONE-acetaminophen (PERCOCET) 5-325 mg per tablet 2 tablet (COMPLETED) 2 tablet, Oral, ONCE, 1 dose, On Mon04/15/15 at 1817, Maximum dose of acetaminophen is 4000 mg from all sources in 24 hours., STAT 181 (Given - Provid er: Lyle Werner RN) sodium chloride 0.9% 1,000 mL IV bolus (COMPLETED) at 1,000 mL/hr, Intravenous, ONCE, 1 dose, On Mon04/15/15 at 1551 1607 (Given - Provid er: Lyle Werner RN) documented in this encounter Care Teams Senior Court Office Assistant Relationship Specialty Start Date End Date Stephanie Quiñonez APRN PCP - General 01/14/14 06/19/16 documented as of this encounter
--- OUTSIDE RECORDS SUMMARY | 2023-12-27 19:48 | XMS_ITS | Encounter Summary ---
[place] [address] Care Team Providers Care Billiard Table Repairer Name Role Phone Sarah Waltersdee dee Rizzo APRN Primary Care Provider [phone]- [phone] Reason for Visit * Reason Onset Date Comments Headache 03/27/2015 acute headache Encounter Details Date Type Department Care Team (Late st Contact Info) Description 03/27/2015 [place] [phone] Kristi Ritchie MD [facility] [place] [address] Headache (acute headache) Social History Tobacco Use Types Packs/Day Years [...] encounter Miscellaneous Notes * Telephone Encounter - Debra Kendrick RN - 04/08/2015 4:49 PM EST Called patient and left a message asking for a return phone call. * Telephone Encounter - Debra Kendrick RN - 03/31/2015 3:07 PM EST Called patient and left a message asking for a return phone call to schedule DHE teaching. * Telephone Encounter - Kristi Ritchie MD - 03/31/2015 2:37 PM EST Patient was called and reminded that her headaches were not anticipated to disappear with the nerveblocks. She was also reminded that after stopping Fioricet, imitrex, and excedrin that her headaches actually have the potential to be slightly worse from medication withdrawal headaches for 2-3 weeks. She did report that her headaches got somewhat milder initially with the ONBs. She reports no known benefits with the Migranal nasal spray and was told that a training session for DHE injection administration would be set up with the nursing staff. She was asked to notify us if her headache worsens and at that time we may consider admission for modified Samson protocol. Kristi Ritchie MD Headache Fellow [facility] [place] * Telephone Encounter - Debra Kendrick RN - 03/30/2015 10:14 AM EST Called patient back and she states she has had a headache for the past several days. She states shesaw Dr. Ritchie on Monday and has ONBs which did not help her headache, in fact she states her head and neck have been stiff every since. She states she stopped taking the Fioricet, Imitrex, and Excedrin per Dr. Ritchie's instruction. I advised her that often when patients stop these medications they can initially see an increase in their headache pattern as the medications exit their systems and this is to be expected. She states she is still taking 50 mg Topamax BID. She began taking the cyproheptadine 4 mg at bedtime and states it is helping her sleep. She states on Monday she took 550 mg naproxen, 25 mg vistaril, and Migranal spray in each nostril with a repeat in one hour, and one phenergan suppository and it dulled her headache. She states on Monday she took 550 mg naproxen, 25 mg vistaril and two phenergal suppositories andit dulled her headache. She used naproxen and vistaril on Monday and today as well without the Migranal. She states the phenergan helped the nausea and made her groggy and she slept a little but the medications haven't stopped the headache. All treatments have decreased the severity but have not made it completely go away. She is hoping Dr. Ritchie has a suggestion for something else she can try. Her MRI is scheduled for April 09. * Telephone Encounter - Arabella Wisdom - 03/30/2015 8:44 AM EST Patient called in again to request a call back regarding the ONB's and that her migraines have not improved since these injections. Please call back to discuss * Telephone Encounter - Debra Kendrick RN - 03/27/2015 12:07 PM EST Patient called and left a message on the triage line stating she had ONBs and has not noticed a changed in her migraines. She states she also used her migranal twice and took naproxen and hydroxyzine. She would like a phone call back to discuss. documented in this encounter Plan of Treatment Upcoming Encounters Date Type Department Care Team (Late st Contact Info) Description 01/24/2024 3:40 PM EDT Office Visit Cardiology at [address] [address] Rangel Willams MD [facility] [place] [address] documented as of this encounter Visit Diagnoses Not on filedocumented in this encounter Care Teams Billiard Table Repairer Relationship Specialty Start Date End Date Apple Walters APRN PCP - General 01/14/14 06/19/16 documented as of this encounter
--- OUTSIDE RECORDS SUMMARY | 2023-12-27 19:48 | XMS_ITS | Encounter Summary ---
Author Organization [facility] [place] [address] Care Team Providers Care Microsoft Dynamics Consultant Name Role Phone Apple Walters APRN Primary Care Provider [phone]- [phone] Reason for Visit * Reason Comments Pain Management Encounter Details Date Type Department Care Team (Latest Contact Info) Description 05/18/2015 12:30 PM EST Office Visit [place] [address] Ignacia Florentino TANK PUMPER PANELBOARD [facility] [place] [address] Spondylosis of lumbar region without myelopathy or radiculopathy; Cervicalgia; Fibromyalgia; Scoliosis of cervicothoracic spine, unspecified scoliosis type [...] Sign Reading Time Taken Comments Blood Pressure 143/87 05/18/2015 12:25 PM EST Pulse 90 05/18/2015 12:25 PM EST Temperature - - Respiratory Rate - - Oxygen Saturation 100% 05/18/2015 12:25 PM EST Inhaled Oxygen Concentration - - Weight 78 kg (172 lb) 05/18/2015 12:25 PM EST Height 157.5 cm (5' 2) 05/18/2015 12:25 PM EST Body Mass Index 31.46 05/18/2015 12:25 PM EST documented in this encounter Progress Notes * Ignacia Florentino, TANK PUMPER PANELBOARD - 05/18/2015 12:27 PM EST PAIN CLINIC FOLLOW-UP Ghada Ervin [id number] Reason for follow-up: Medication management Chronic Opioid Therapy Pain Management Plan signed on 09/17/14 UDT: 03/27/15 findings reflect reported history taken on [facility] Prescription Monitoring Program were checked and no issues were found. ORT Score: 5 moderate risk (due to family hx/age) Naloxone discussed: 03/27/15 prescribed Chief Complaint: Follow up chronic back pain [...] swollen painful finger joints- referred to rheumatology. 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 Diagnosed with hypokalemia and hypomagnesemia in ED last month related to syncopal episode. Interim history ED visits, hospitalizations, new medical problems or surgeries since previous visit? 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 Patton 04/30/14 for evaluation of joint tenderness/fibromyalgia- pending results of bloodwork and x rays. Had lumbar MBB bilateral 04/20/15 without improvement in pain Changes in family, social, or functional history since previous visit? 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 Current treatment: Percocet 10/325 no more than 4 per day (increased to 5 per day in 04/07 due to headache Physical therapy: no using currently ([phone] Mario Desouza or Saira) Counseling/therapy: hasn't seen Stephanie Banegas APRN recently ; needs new psychiatrist Savella 50 mg (2) bid xanax 0.5 mg no more than 10 per month for anxiety/sleep- knows not to combine with percocet Marijuana Past therapies: Gabapentin [id number] stopped in 03/08 Pain Location: mid lumbar and thoracic spine, and b/l hips; low back left side is worsening- difficult creative guru, 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 or walking Pain Quality is described as constant, achy, constant shooting in the hips Pain Exacerbating/relieving activities: worse with driving, bending, lifting, better with heat and meds Rated as 6/10 on average with meds- unbearable without pain meds- 10/10 mostly lower back Depression: More upset regarding her medical set backs and new diagnoses Sleep: using trazodone for sleep but doesn't like the hang over effect in morning Smoking: back to smoking /2 ppd Alcohol: none Functional Status: her goal is to have a 20 hr per week job, she is also walking daily with her children, lifting children, 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 acetaminophen (TYLENOL) 325 mg [...] 10 per month). Indications: Panic Disorder Yes topiramate (TOPAMAX) 50 mg Tablet Take 50 mg by mouth 2 times daily. Yes milnacipran (SAVELLA) 50 mg Tablet Take 50 mg by mouth 2 times daily. Yes calcium carbonate (TUMS) 200 mg calcium (500 mg) Tablet, Chewable Take 2 tablets by mouth daily as needed. Yes oxyCODONE-acetaminophen (PERCOCET) 10-325 mg Tablet Take 1 tablet by mouth every 4 hours as needed for Pain for up to 28 days. NTE 5 per day Review of Systems Constitutional Denies weight loss [...] CTA Cardiac RRR without murmur Musculoskeletal Ambulates with cane COMPARISON: MRI lumbar spine of 04/12/2007. [...] on percocet 10/325 4 times per day, temporarily increased to 5 per day in 04/07 due to headaches from aneurysm Working with neurology to manage migraines. Needs 2nd surgery for aneurysm. Has gone back to smoking. No concerning behaviors/side effects of opioid use. Results from rheumatology consult pending. Plan/Recommendations//Discussion: Renew percocet 10/325 NTE Will increase to 5 per day due to headaches- she understands we will go down to 4 per day next month. Will hold off tapering up lyrica dose as she is trying new migraine medications/having neuro symptoms. Future consideration of cannabis medical. She agreed by next month she will stop smoking, will go see her counselor, and will set up psychiatry for medication management. RV with SAD 28 days Ghada had an opportunity to ask questions. Ignacia Florentino, MICHAEL, ANP, TANK PUMPER PANELBOARD documented in this encounter Plan of Treatment Upcoming Encounters Date Type Department Care Team (Late st Contact Info) Description 01/24/2024 3:40 PM EDT Office Visit Cardiology at [address] [phone] Rangel Willams MD [facility] [place] [address] documented as of this encounter Visit Diagnoses Diagnosis Spondylosis of lumbar region without myelopathy or radiculopathy Lumbosacral spondylosis without myelopathy Cervicalgia Fibromyalgia Mylagia and myositis, unspecified Scoliosis of cervicothoracic spine, unspecified scoliosis type documented in this encounter Care Teams Microsoft Dynamics Consultant Relationship Specialty Start Date End Date Apple Walters APRN PCP - General 01/14/14 06/19/16 documented as of this encounter
--- OUTSIDE RECORDS SUMMARY | 2023-12-27 19:48 | XMS_ITS | Encounter Summary ---
[place] [address] Care Team Providers Care Mining Machinery Assembler Name Role Phone Apple Walters APRN Primary Care Provider [phone]- [phone] Reason for Referral * Diagnostic Test (Routine) - Closed Specialty Diagnoses / Procedures Referred By Lang sanches Referred To Contact Radiology Diagnoses Carotid aneurysm, right Procedures IR embolization intracranial Darlene Rooney TOLL COLLECTOR [facility] [place] [address] [place] [address] Referral ID Status Reason Start Date Expiration Date V isits Requested Visits Authorized [id number] Closed Specialty Service Requested 04/30/2015 04/29/2016 1 1 Reason for Visit * Auth/Cert - Closed Specialty Diagnoses / Procedures Referred By Lang sanches Referred To Contact Diagnoses right opthalmic artery aneurysm Procedures PRO INTRACRANIAL BALLOON ANGIOPLASTY ANGIOPLASTY-INTRACRANIAL Referral ID Status Reason Start Date Expiration Date Visits Re quested Visits Authorized [id number] Closed 1 1 Encounter Details Date Type Department Care Team (Latest Contact Info) Description 05/11/2015 10:26 AM EST - 05/11/2015 11:59 PM EST Hospital [place] [address] Karlo Bass MD [facility] [place] [address] Carotid aneurysm, right Discharge Disposition: Home Social History Tobacco Use [...] for Pain. 30 tablet 0 05/12/2015 05/18/2015 oxyCODONE-acetamino phen (PERCOCET) 10-325 mg TabletIndications:p ain [...] mL 0 03/27/2015 05/12/2015 Miscellaneous Medical Supply [facility] [place] two intranasal mucosal atomizing devices for use with naloxone syringe. 2 each 0 03/27/2015 05/12/2015 naproxen sodium (ANAPROX) 550 mg Tablet Take [...] as of this encounter H&P Notes * Kurtis Pina MD - 05/11/2015 9:48 AM EST 24-HOUR UPDATE Ghada Ervin was seen in SDP. No interval events or changes in health status since preoperative H+P (see EPIC). Denies angina/dyspnea/fevers or malaise within the last 14 days. All questions were answered. Stable for surgery as scheduled. 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 She is seen by Rheumatology (has fibromyalgia, work up for joint pain/swelling in progress) and the Pain clinic (back/joint pain s/p thoracic fusion 2007 for scoliosis.) PMH - chronic pain, heart palpitations,fibromyalgia, ADD, migraine, scoliosis, SVT, and lumbar spondylosis. ?? Allergies to MEPERIDINE, LITHIUM, ZOLOFT, and bee pollen. ?? Medications include p.r.n. oxycodone, Migranal, Anaprox, Vistaril, Periactin, Phenergan, Zofran, Lyrica, magnesium, potassium, alprazolam, Topamax, Savella, Prilosec, calcium supplementation, Adderall. Physical exam - 4+/5 weakness throughout all extremities, visual ching full to gross exam, monocular vertical diplopia worse on right but also present on left, EOMI. Cardiac-RRR, Respiratory - CTA-B, breathing comfortably on room air documented in this encounter Plan of Treatment Upcoming Encounters Date Type Department Care Team (Late st Contact Info) Description 01/24/2024 3:40 PM EDT Office Visit Cardiology at [address] [address] Rangel Willams MD [facility] [place] [address] documented as of this encounter Procedures Procedure Name Priority Date/Time Associated Diagnosis Comments IR EMBOLIZATION INTRACRANIAL Routine 05/11/2015 12:33 PM EST Carotid aneurysm, right documented in this encounter Results * IR embolization intracranial [...] aneurysm. ? Attending:? Karlo Bass M.D. ? Pharmaceutical Representative:? Silvana ? Operative Note:? The patient presents to the Angio Suite, general endotracheal anesthesia is induced.? Bifemoral sites are shaved then prepped and draped in sterile fashion.? Ben incision made over the region of the right femoral artery, accessed with a single wall needle technique.? Bentson wire is passed in the vessel and over to a 6 Argentine sheath connected to a continuous heparinized flush solution.? A 6 Argentine guide catheter is transnavigated over an 0.035 [...] arteryaneurysm. ? Attending:? Karlo Bass M.D. ? Pharmaceutical Representative:? Silvana ? Operative Note:? The patient presents to the Angio Suite, generalendotracheal anesthesia is induced.? Bifemoral sites are shaved then prepped and drapedin sterile fashion.? Ben incision made over the region of the rightfemoral artery, accessed with a single wall needle technique.? Pandabusson wire ispassed in the vessel and over to a 6 Argentine sheath connected to a continuous heparinized flush solution.? A 6 Argentine guide catheter is transnavigatedover an 0.035 angled [...] artery of neck documented in this encounter Administered Medications Inactive Administered Medications - up to 3 most recent administrations Medication Order MAR Action Action Date Dose Rate Site iodixanol (VISIPAQUE) 320 mg iodine/mL injection 150 mL 150 mL, Intra-arterial, ONCE PRN, 1 dose, Starting on Mon05/11/15 at 1205, Until Mon05/11/15 at 1233, Per Protocol, Routine Given 05/11/2015 12:33 PM EST 55 mLs documented in this encounter Care Teams Mining Machinery Assembler Relationship Specialty Start Date End Date Apple Walters APRN PCP - General 01/14/14 06/19/16 documented as of this encounter
--- OUTSIDE RECORDS SUMMARY | 2023-12-27 19:48 | XMS_ITS | Encounter Summary ---
Author Organization [facility] [place] [address] Care Team Providers Care Aging Room Operator Name Role Phone RomeoSarahdee dee Rizzo APRN Primary Care Provider +1- [phone] Encounter Details Date Type Department Care Team (Late st Contact Info) Description 04/14/2015 Orders [place] [phone] Darlene Rooney APRN [facility] [place] [place] [address] Abnormal finding on MRI of brain Social History Tobacco Use Types Packs/Day Years [...] PM EDT Office Visit Cardiology at [address] [phone] Rangel Willams MD [facility] [place] [address] documented as of this encounter Visit Diagnoses Diagnosis Abnormal finding on MRI of brain Nonspecific (abnormal) findings on radiological and other examination of skull and head documented in this encounter Care Teams Aging Room Operator Relationship Specialty Start Date End Date Apple Walters APRN PCP - General 01/14/14 06/19/16 documented as of this encounter
--- OUTSIDE RECORDS SUMMARY | 2023-12-27 19:48 | XMS_ITS | Encounter Summary ---
[place] [address] Care Team Providers Care Complex Care Nurse Name Role Phone Apple Walters APRN Primary Care Provider +1- [phone] Reason for Referral * Surgical (Routine) - Closed Specialty Diagnoses / Procedures Referred By Lang t Referred To Contact Neurosurgery Diagnoses MRI of brain abnormal Kristi Ritchie MD [facility] [place] [place] [address] Johnny Bass MD [facility] [place] [address] Referral ID Status Reason Start Date Expiration Date V isits Requested Visits Authorized [id number] Closed Consult, Test & Treat 04/13/2015 04/12/2016 1 1 Reason for Visit * Reason Onset Date Comments Other 04/07/2015 Encounter Details Date Type Department Care Team (Late st Contact Info) Description 04/07/2015 Tele[place] [address] Kristi Ritchie MD [facility] [place] [address] Other Social History Tobacco Use Types Packs/Day [...] Telephone Encounter - Debra Kendrick RN - 04/14/2015 9:14 AM EST Called patient and left a message asking for a return phone call. Sent letter to patient's home address asking for patient to contact office at earliest opportunity. * Telephone Encounter - Kristi Ritchie MD - 04/13/2015 12:48 PM EST Attempted to contact the patient twice and left a message on the patient's answering machine askingher to call back to receive the results of her MRI brain which shows a probable right 6-7mm opthalmic aneurysm. A referral has been placed to neurosurgeon Dr. Bass and further imaging may be required at his discretion prior to consultation. Kristi Ritchie MD Headache Fellow [facility] [place] Neurology * Telephone Encounter - Debra Kendrick RN - 04/08/2015 12:20 PM EST Called patient and left message for return call to discuss DHE teaching and Dr. Ritchie's response tobelow message, The patient was told that if she continues to have unrelenting pain despite the occipital nerve blocks and difficulty stopping the short acting abortive meds, she should let us know so that an admission for modified Samson protocol could be arranged. * Telephone Encounter - Debra Kendrick RN - 04/07/2015 1:38 PM EST Called patient back and she states she had a voicemail that she was confused about that she was supposed to come to the hospital for an admission to try some medications. I told her that the only reason I see her coming to the hospital in the future is for a MRI and that I see she has scheduled that. I told her I would check with Dr. Ritchie about this but that she should plan on coming for her MRIand her follow up and that she probably received a message in [employer]. * Telephone Encounter - Graciela Grossman - 04/07/2015 12:55 PM EST Patient believes she received a phone call from Neurology regarding an admission to schedule. Informed patient that none of the secretaries has called her for this. Patient is asking to speak directly with Dr. Ritchie about this. Please advise further. documented in this encounter Plan of Treatment Upcoming Encounters Date Type Department Care Team (Late st Contact Info) Description 01/24/2024 3:40 PM EDT Office Visit Cardiology at [address] [address] Rangel Willams MD [facility] [place] [address] Scheduled Referrals Name Type Priority Associated Diagnoses Order Schedule Referral to Neurosurgery Outpatient Referral Routine MRI of brain abnormal Ordered: 04/13/2015 documented as of this encounter Visit Diagnoses Diagnosis MRI of brain abnormal Nonspecific (abnormal) findings on radiological and other examination of skull and head documented in this encounter Care Teams Complex Care Nurse Relationship Specialty Start Date End Date Apple Walters APRN PCP - General 01/14/14 06/19/16 documented as of this encounter
--- OUTSIDE RECORDS SUMMARY | 2023-12-27 19:48 | XMS_ITS | Encounter Summary ---
[place] [address] Care Team Providers Care Shoe Polisher Name Role Phone Apple Walters KIM Primary Care Provider +1- [phone] Reason for Visit * Reason Onset Date Comments Other 05/08/2015 Pt declined F/U appt w Dr Ritchie Encounter Details Date Type Department Care Team (Late st Contact Info) Description 05/08/2015 [place] [phone] Kristi Ritchie MD [facility] [place] [address] Other (Pt declined F/U appt w Dr Ritchie) Social History Tobacco Use Types Packs/Day Years [...] encounter Miscellaneous Notes * Telephone Encounter - Racheal Shipley - 05/08/2015 11:51 AM EST Patient called in and spoke with our After Hours phone team. Patient canceled their 30 min F/U appointment with Dr. Ritchie in Neurology for 05/08/15. Patient declined to reschedule another F/U at this time. documented in this encounter Plan of Treatment Upcoming Encounters Date Type Department Care Team (Late st Contact Info) Description 01/24/2024 3:40 PM EDT Office Visit Cardiology at [address] [address] Rangel Willams MD [facility] [place] [address] documented as of this encounter Visit Diagnoses Not on filedocumented in this encounter Care Teams Shoe Polisher Relationship Specialty Start Date End Date Apple Walters APRN PCP - General 01/14/14 06/19/16 documented as of this encounter
--- OUTSIDE RECORDS SUMMARY | 2023-12-27 19:48 | XMS_ITS | Encounter Summary ---
[place] [address] Care Team Providers Care Lime Spreader Name Role Phone Apple Walters APRN Primary Care Provider +1- [phone] Reason for Referral * Diagnostic Test (Routine) - Closed Specialty Diagnoses / Procedures Referred By Lang sanches Referred To Contact Radiology Diagnoses Carotid artery aneurysm Procedures IR embolization intracranial Karlo Bass MD [facility] [place] [address] [place] [address] Referral ID Status Reason Start Date Expiration Date V isits Requested Visits Authorized [id number] Closed Specialty Service Requested 06/01/2015 05/31/2016 1 1 Reason for Visit * Auth/Cert Specialty Diagnoses / Procedures Referred By Lang sanches Referred To Contact Diagnoses CAROTID ARTERY ANEURYSM S/P STAGE I NEUROFORM STENT PLACEMENT FOR RIGHT PAR OPHTHALMIC ARTERY ANEURYSM Procedures PRO PERM OCCLUSION/EMBOLIZATION, PERCUT, FLOOR INSPECTOR ANGIOPLASTY-INTRACRANIAL Referral ID Status Reason Start Date Expiration Date Visits Re quested Visits Authorized [id number] 1 1 Encounter Details Date Type Department Care Team (Latest Contact Info) Description 06/01/2015 1:18 PM EST - 06/01/2015 11:59 PM EST Hospital [place] [address] Karlo Bass MD [facility] [place] [address] Carotid artery aneurysm Discharge Disposition: Home Social History Tobacco [...] PM EDT Office Visit Cardiology at [address] [address] Rangel Willams MD [facility] [place] [address] documented as of this encounter Procedures Procedure Name Priority Date/Time Associated Diagnosis Comments IR EMBOLIZATION INTRACRANIAL Routine 06/01/2015 2:45 PM EST Carotid artery aneurysm documented in this encounter Results * IR embolization intracranial (06/01/2015 2:45 PM EST) Anatomical Region Laterality Modality Head X-Ray Angiograph y Narrative 06/03/2015 1:07 PM EST Procedure: ??Stage II coil embolization of paraclinoid aneurysm on the right. Surgeon is Karlo Bass M.D. Contracts Paralegal is Dino Martinez M.D. Operative Note: ??The patient presents to the angio suite. ??General endotracheal anesthesia is induced. ??Bifemoral sites are shaved then prepped and draped in sterile fashion. ??A gala incision is made over the region and the right femoral artery accessed with a single-wall needle technique. ??A BUILDson wire is passed in the vessel and over it a 6-Austrian sheath connected to a continuous heparinized flush solution. ??A 6-Austrian guide catheter is transnavigated over an 0.035 [...] on theright. Surgeon is Karlo Bass M.D. Contracts Paralegal is Dino Martinez M.D. Operative Note: The patient presents to the angio suite. Generalendotracheal anesthesia is induced. Bifemoral sites are shaved then prepped and drapedin sterile fashion. A gala incision is made over the region and the rightfemoral artery accessed with a single-wall needle technique. A Jigsaw24 wire ispassed in the vessel and over it a 6-Austrian sheath connected to a continuous heparinized flush solution. A 6-Austrian guide catheter is transnavigatedover an 0.035 angled [...] iodine/mL injection 150 mL 150 mL, Intra-arterial, ONCE, 1 dose, On Mon06/01/15 at 1515, Routine Given 06/01/2015 3:15 PM EST 75 mLs documented in this encounter Care Teams Lime Spreader Relationship Specialty Start Date End Date Apple Walters APRN PCP - General 01/14/14 06/19/16 documented as of this encounter
--- OUTSIDE RECORDS SUMMARY | 2023-12-27 19:48 | XMS_ITS | Encounter Summary ---
Author Organization [facility] [place] [address] Care Team Providers Care Contact Center Team Lead Name Role Phone Apple Walters APRN Primary Care Provider +1- [phone] Reason for Visit * Reason Comments Pain Management Encounter Details Date Type Department Care Team (Late st Contact Info) Description 04/20/2015 3:30 PM EST Office Visit Pain Management at [place] [phone] John[facility] Morales [facility] [place] [address] Ignacia Florentino TRANSFER TABLE OPERATOR HELPER [facility] [place] [address] Chronic pain syndrome; Scoliosis; Facet arthropathy, lumbosacral; Fibromyalgia; Cervicalgia Social History Tobacco Use Types Packs/Day Years [...] of this encounter Progress Notes * Ignacia Florentino TRANSFER TABLE OPERATOR HELPER - 04/20/2015 3:16 PM EST PAIN CLINIC FOLLOW-UP Ghada Ervin [id number] Reason for follow-up: Medication management Chronic Opioid Therapy Pain Management Plan signed on 09/17/14 UDT: 03/27/15 findings reflect reported history taken on The [place] Prescription Monitoring Program were checked and no [...] medical problems or surgeries since previous visit? Transferred from [place] ED on 04/16 to [facility] for severe right sided headache- and syncopal episode. MRI showed right 6-7 mm opthalmic aneurysm referred by neurology for neurosurgery consult. Not safe for her drive anymore. Meets with surgeon 04/30/15 Saw urologist- renal stone has dissolved Sees rheumatology on 04/30/15 Had lumbar MBB just prior to my visit today. Changes in family, social, or functional history since previous visit? 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 Current treatment: Percocet 10/325 no more than 4 per day Physical therapy: ongoing for generalized pain- has been dry needling recently which seems to help ([phone] Mario Desouza or Saira) Counseling/therapy: Stephanie Banegas APRN (saw her recently, doing well, will call as needed) still sees psychiatrist monthly Savella 50 mg (2) bid xanax 0.5 mg no more than 10 per month for anxiety/sleep- knows not to combine with percocet Marijuana Past therapies: Gabapentin [id number] stopped in 03/08 Pain Location: mid lumbar and thoracic spine, and b/l hips; low back left side is worsening- difficult monument mason, 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 or walking Pain Quality is described as constant, achy, constant shooting in the hips Pain Exacerbating/relieving activities: worse with driving, bending, lifting, better with heat and meds Rated as 6/10 on average with meds- unbearable without pain meds- 10/10 mostly lower back Depression: sees a therapist Anxiety: therapist is working on getting this under control Sleep: using trazodone for sleep but doesn't like the hang over effect in morning Smoking: quit Alcohol: none Functional Status: her goal is to have a 20 hr per week job, she is also walking daily with her children, lifting children, 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 oxyCODONE-acetaminophen (PERCOCET) 10-325 mg Tablet Take 1 tablet by mouth every 6 hours as needed for Pain (no more than 4 per day) for up to 28 days. Indications: Pain nalOXone (NARCAN) 1 mg/mL Syringe For opioid overdose,spray 1 mL in each nostril. Repeat after 3-5 minutes if no or minimal response. Call 911 before administration. Miscellaneous Medical Supply [facility] Script for two intranasal mucosal atomizing devices for use with naloxone syringe. dextroamphetamine-amphetamine (ADDERALL XR) 20 mg Capsule, Sust. Release 24 hr Take 20 mg by mouth every morning. dihydroergotamine (MIGRANAL) 0.5 mg/pump act. (4 mg/mL) [place], Non-Aerosol Migranal nasal spray, 1 spray in each nostril, wait 15 minutes then repeat x 1 for a total of 4 sprays daily. Limit use to 2x weekly. naproxen sodium (ANAPROX) 550 mg Tablet Take 1 tablet by mouth 2 times daily as needed. hydrOXYzine (VISTARIL) 25 mg Capsule Take 1 capsule by mouth 2 times daily as needed. cyproheptadine (PERIACTIN) 4 mg Tablet Take 1 tablet by mouth nightly. promethazine (PHENERGAN) [address] 1 suppository rectally every 6 hours as needed forNausea. ondansetron (ZOFRAN) 8 mg Tablet Take 8 mg by mouth every 8 hours as needed for Nausea. pregabalin (LYRICA) 75 mg Capsule Take 1 capsule by mouth 2 times daily. For 7 days, then increase to 2 tabs twice per day Indications: Fibromyalgia magnesium 250 mg Tablet Take 250 mg by mouth 2 times daily. potassium chloride (KLOR-CON M20) 20 mEq Tab Sust.Rel. Particle/Crystal Take 20 mEq by mouth 2 times daily. ALPRAZolam (XANAX) 0.5 mg Tablet Take 0.5 mg by mouth daily as needed for Sleep or Anxiety (no morethan 10 per month). Indications: Panic Disorder nitrofurantoin (MACRODANTIN) 100 mg Capsule Take 100 mg by mouth nightly. topiramate (TOPAMAX) 50 mg Tablet Take 50 mg by mouth 2 times daily. milnacipran (SAVELLA) 50 mg Tablet Take 50 mg by mouth 2 times daily. omeprazole (PRILOSEC) 20 mg Capsule, Delayed Release(E.C.) Take 20 mg by mouth nightly. Mometasone 50 mcg/actuation [place], Non-Aerosol 1 spray by Nasal route as needed. Mkj-Taphebvkfc-Ccqnfffcnz-Caf 40-920-13-30 mg Capsule Take 1 tablet by mouth every 4 hours as needed. calcium carbonate (TUMS) 200 mg calcium (500 mg) Tablet, Chewable Take 2 tablets by mouth daily as needed. Review of Systems Constitutional Denies weight loss or gain, fevers, chills, nightsweats + headaches- Cardiovascular Denies chest pain, palpitations Respiratory Denies cough, SOB, PADRON;; no other URI symptoms GI/ Denies constipation, diarrhea, nausea, vomiting, GERD, incontinence; Musculoskeletal No weakness, falling Neurologic ,No seizures, memory loss. paresthesia Hormonal had tubal ligation in 06/08 Physical Exam Constitutional Seen alone, alert and oriented, appears tired Psychiatric has good eye contact and a full range of affect. Tearful during visit; expressed frustration at new medical things keep happening to her Lungs Unlabored respirations; lungs CTA Cardiac RRR without murmur Musculoskeletal Ambulates with out assistive device COMPARISON: MRI lumbar spine of 04/12/2007. 02/27/15 [...] on percocet 10/325 4 times per day. Working with neurology to manage migraines. Worsening low back pain left side symptoms consistent with MRI findings of facet arthropathy and scoliosis causing moderate neural foramen narrowing on the left at L4-5 and L5-S1. Some improvement in pain with lyrica. She is meeting her functional goals and not experiencing any side effects from therapy. No concerning behaviors. Plan/Recommendations//Discussion: 1.LEFT MBB target L4-5, L5-S1 done today- results pending 2. Rheumatology consults pending in April 3. Renew percocet 10/325 NTE Will increase to 5 per day due to headaches- she understands we will go down to 4 per day next month. 4. Will hold off tapering up lyrica dose as she is trying new migraine medications/having neuro symptoms. 5. Future consideration of cannabis medical. 6. RV with SAD 28 days Ghada had an opportunity to ask questions. Ignacia Florentino, MICHAEL, ANP, TRANSFER TABLE OPERATOR HELPER documented in this encounter Plan of Treatment Upcoming Encounters Date Type Department Care Team (Late st Contact Info) Description 01/24/2024 3:40 PM EDT Office Visit Cardiology at [address] [phone] Rangel Willams MD [facility] [place] [address] documented as of this encounter Visit Diagnoses Diagnosis Chronic pain syndrome Scoliosis Scoliosis (and kyphoscoliosis), idiopathic Facet arthropathy, lumbosacral Lumbosacral spondylosis without myelopathy Fibromyalgia Mylagia and myositis, unspecified Cervicalgia documented in this encounter Care Teams Contact Center Team Lead Relationship Specialty Start Date End Date Apple Walters APRN PCP - General 01/14/14 06/19/16 documented as of this encounter
--- OUTSIDE RECORDS SUMMARY | 2023-12-27 19:48 | XMS_ITS | Encounter Summary ---
Author Organization [facility] [place] [address] Care Team Providers Care Electrolysist Name Role Phone Apple Walters APRN Primary Care Provider +1- [phone] Encounter Details Date Type Department Care Team (Late st Contact Info) Description 04/14/2015 Orders [place] [phone] Johnny Bass MD [facility] [address] Social History Tobacco Use Types Packs/Day Years [...] PM EDT Office Visit Cardiology at [address] [phone] Rangel Willams MD [facility] [place] [address] documented as of this encounter Visit Diagnoses Not on filedocumented in this encounter Care Teams Electrolysist Relationship Specialty Start Date End Date Apple Walters APRN PCP - General 01/14/14 06/19/16 documented as of this encounter
--- OUTSIDE RECORDS SUMMARY | 2023-12-27 19:48 | XMS_ITS | Encounter Summary ---
[place] [address] Care Team Providers Care Photo Colorer Name Role Phone Stephanie Quiñonez Matthias ALVAREZ Primary Care Provider +1- [phone] Encounter Details Date Type Department Care Team (Latest Contact Info) Description 04/09/2015 2:40 PM [facility] Hospital [place] [address] Kristi Ritchie MD [facility] [place] [address] Discharge Disposition: Home Social History Tobacco Use [...] 0 03/27/2015 05/12/2015 Miscellaneous Medical Supply [facility] Script for two intranasal mucosal atomizing devices for use with naloxone syringe. 2 each 0 03/27/2015 05/12/2015 dihydroergotamine (MIGRANAL) 0.5 mg/pump act. (4 mg/mL) [place], Non-Aerosol Migranal nasal spray, 1 spray in [...] as of this encounter Progress Notes * Chris Perdomo RN - 04/03/2015 11:40 AM EST VIR MRI PRE-SEDATION ASSESSMENT NOTE NAME: Ghada Ervin AGE: 24 y.o. : 1990 [address] [facility] [address] Female [phone] (home) Telephone Information: STEPHANIE QUIÑONEZ APRN No primary care provider on file. Allergies Allergen Reactions ??? Bee Pollen Anaphylaxis ??? Meperidine Hcl Anaphylaxis and Other (See Comments) flushing, respiratory trouble ??? [place] Other (See Comments) Flu like sx ??? Zoloft [Sertraline] Other (See Comments) Flu like sx Date/Time of call: April 03, 2015/11:40 AM/ PREVIOUS MRI SCAN? yes HEIGHT: 5 2 WEIGHT: 160 SCHEDULED SCAN: MRI brain SUBJECTIVE: I am claustrophobic CAN YOU LAY FLAT? yes DO YOU HAVE ANY PAIN ISSUES? no ASSESSMENT: Appropriate for PO sedation PLAN: Ativan PO per protocol Guidelines for MRI Pre-Procedures Laboratory Studies: GFR Date of lab draw 1. Creatinine studies (GFR level needed) within 90 days of scan ??? 70 yo or older if they are getting contrast ??? 50 years and older if they are diabetic and getting contrast ( ST ) You must have a sales route driver present when you check in. This patient has been informed that they require a sales route driver to drive them home after this procedure. In the absence of a sales route driver, IR will not be able to sedate for your scan. Pt verbalized understanding of these instructions during the pre-procedure education via phone. Yes [place] of sales route driver: not sure yet, but will have one Phone number PRIOR SCAN DATE/S SEDATION TYPE SUCCESSFUL OSH yes 02/27/15 MRI lumbar and cervical spine Ativan 2 mg po yes 04/09/15 MRI brain Ativan 1 mg PO x 2 yes PT STATED TO ACCREDITED FARM MANAGER THAT THE SEDATION WAS EFFECTIVE FOR SCAN: Y N COMMENTS: documented in this encounter Plan of Treatment Upcoming Encounters Date Type Department Care Team (Late st Contact Info) Description 01/24/2024 3:40 PM EDT Office Visit Cardiology at [address] [address] Rangel Willasm MD [facility] [place] [address] documented as of this encounter Procedures Procedure Name Priority Date/Time Associated Diagnosis Comments MRI BRAIN WWO CONTRAST (GENERIC) Routine 04/09/2015 5:02 PM EST Chronic migraine without aura without status migrainosus, not intractable documented in this encounter Visit Diagnoses Not on filedocumented in this encounter Administered Medications Inactive Administered Medications - up to 3 most recent administrations Medication Order MAR Action Action Date Dose Rate Site LORazepam (ATIVAN) tablet 1-2 mg 1-2 mg, Oral, 2 TIMES DAILY PRN, Starting on Briana 04/09/15 at 0000, Until Mon04/10/15 at 0437, Anxiety, max 2 mg PO, Angio/IR (Day of Procedure), STAT Given 04/09/2015 3:49 PM EST 1 mg Given 04/09/2015 3:06 PM EST 1 mg documented in this encounter Care Teams Photo Colorer Relationship Specialty Start Date End Date Stephanie Quiñonez APRN PCP - General 01/14/14 06/19/16 documented as of this encounter
--- OUTSIDE RECORDS SUMMARY | 2023-12-27 19:48 | XMS_ITS | Encounter Summary ---
[place] [address] Care Team Providers Care Eclectic Doctor Name Role Phone Sarah Waltersdee dee Rizzo APRN Primary Care Provider +1- [phone] Reason for Visit * Reason Onset Date Comments Results 05/22/2015 Encounter Details Date Type Department Care Team (Late st Contact Info) Description 05/22/2015 Telephone [place] [phone] Margarita Mccann, RN Results Social History Tobacco Use Types Packs/Day Years [...] encounter Miscellaneous Notes * Telephone Encounter - Margarita Mccann, RN - 05/22/2015 4:04 PM EST I returned Ghada's call about her blood work and relayed the message from the letter Dr. Patton had sent out 05/04/2015. Patient verbalized understanding of the letter. She was complaining of increasing leg joint pain, and states that she is currently working on switching back to Gabapentin from lyrica. She was encouraged to continue working with her pain specialist as well as keeping in to uch with her PCP to keep her joint pain more under control. Pt verbalized understanding of this. * Telephone Encounter - Margarita Mccann RN - 05/22/2015 3:25 PM EST Ghada calls asking to discuss the results of her blood work and her xray results with Dr. Patton as soon as possible. Will forward. documented in this encounter Plan of Treatment Upcoming Encounters Date Type Department Care Team (Late st Contact Info) Description 01/24/2024 3:40 PM EDT Office Visit Cardiology at [address] [address] Rangel Willams MD [facility] [place] [address] documented as of this encounter Visit Diagnoses Not on filedocumented in this encounter Care Teams Eclectic Doctor Relationship Specialty Start Date End Date Apple Walters APRN PCP - General 01/14/14 06/19/16 documented as of this encounter
--- OUTSIDE RECORDS SUMMARY | 2023-12-27 19:48 | XMS_ITS | Encounter Summary ---
Author Organization [facility] [place] [address] Care Team Providers Care Technical Applications Scientist Name Role Phone Apple Walters Matthias ALVAREZ Primary Care Provider +1- [phone] Encounter Details Date Type Department Care Team (Latest Contact Info) Description 04/30/2015 5:13 PM [facility] Hospital Encounter XRay at [address] [place] [address] Bessie Patton, [facility] [place] [address] Ankle joint pain, unspecified laterality Discharge Disposition: [...] mL 0 03/27/2015 05/12/2015 Miscellaneous Medical Supply [facility] [place] [place] Script for two intranasal mucosal atomizing devices for use with naloxone syringe. 2 each 0 03/27/2015 05/12/2015 dihydroergotamine (MIGRANAL) 0.5 mg/pump act. (4 mg/mL) [place], Non-Aerosol Migranal nasal spray, 1 spray in [...] 3:40 PM EDT Office Visit Cardiology at [address] [phone] Rangel Willams MD [facility] [place] [address] documented as of this encounter Procedures Procedure Name Priority Date/Time Associated Diagnosis Comments XR HANDS MIN 3 VIEWS BILAT Routine 04/30/2015 5:40 PM EST Ankle joint pain, unspecified laterality documented in this encounter Results * XR Bilateral Hands Minimum 3 Views [...] narrowing malalignment or erosive disease. Procedure Note Zak Berger MD - 04/30/2015 EXAMINATION: XR BILATERAL [...] evidence of inflammatory arthritis. Bessie Patton DO IMG DX ORDERABLE S documented in this encounter Visit Diagnoses Diagnosis Ankle joint pain, unspecified laterality documented in this encounter Care Teams Technical Applications Scientist Relationship Specialty Start Date End Date Apple Walters APRN PCP - General 01/14/14 06/19/16 documented as of this encounter
--- OUTSIDE RECORDS SUMMARY | 2023-12-27 19:48 | XMS_ITS | Encounter Summary ---
Author Organization [facility] [place] [address] Care Team Providers Care Drier And Pulverizer Tender Name Role Phone Apple Walters KIM Primary Care Provider +1- [phone] Encounter Details Date Type Department Care Team (Latest Contact Info) Description 04/09/2015 2:41 PM EST - 04/09/2015 11:59 PM EST Hospital [place] [phone] Kristi Ritchie MD [facility] [place] [address] Discharge Disposition: Home Social History Tobacco Use [...] mL 0 03/27/2015 05/12/2015 Miscellaneous Medical Supply [facility] Script for two intranasal mucosal atomizing devices for use with naloxone syringe. 2 each 0 03/27/2015 05/12/2015 dihydroergotamine (MIGRANAL) 0.5 mg/pump act. (4 mg/mL) [place], Non-Aerosol Migranal nasal spray, 1 spray in [...] 3:40 PM EDT Office Visit Cardiology at [address] [phone] Rangel Willams MD [facility] [address] documented as of this encounter Procedures Procedure [...] MAR Action Action Date Dose Rate Site gadobutrol (GADAVIST) 1 mMol/mL injection 7 mL 7 mL, Intravenous, ONCE PRN, 1 dose, Starting on Briana 04/09/15 at 1636, Until Briana 04/09/15 at 1635, Per Protocol, Routine Given 04/09/2015 4:35 PM EST 7 mLs documented in this encounter Care Teams Drier And Pulverizer Tender Relationship Specialty Start Date End Date Apple Walters, PUBLIC HEALTH PHYSICIAN PCP - General 01/14/14 06/19/16 documented as of this encounter
--- OUTSIDE RECORDS SUMMARY | 2023-12-27 19:48 | XMS_ITS | Encounter Summary ---
Author Organization [facility] [place] [place] [address] Care Team Providers Care Supervisor [employer] Name Role Phone Apple Walters Matthias ALVAREZ Primary Care Provider [phone] Reason for Visit * Auth/Cert - Closed Specialty Diagnoses / Procedures Referred By Lang t Referred To Contact Diagnoses right opthalmic artery aneurysm Procedures PRO INTRACRANIAL BALLOON ANGIOPLASTY ANGIOPLASTY-INTRACRANIAL Referral ID Status Reason Start Date Expiration Date Visits Re quested Visits Authorized [id number] Closed 1 1 Encounter Details Date Type Department Care Team (Late st Contact Info) Description 05/11/2015 10:21 AM [place] [address] Hilaria Vargas MD [facility] [place] [address] Anesthesia Record Procedure Summary Procedure Name Responsible Anesthesiologist Anesthesia Start Time Anesthesia Stop Time @ANGIOPLASTY-INTRAC RANIAL (WRVU 22.07) Hilaria Vargas MD 05/11/15 1021 05/11/15 1249 Events Date Time Event Comment 05/11/2015 1005 1021 AN Verify 1021 Start 1026 An Start Data 1048 An Induction 1049 An Intubation 1100 Anesthesia Ready 1220 Extubation/LMA Out 1232 an stop data 1249 Recovery or ICU Handoff Oanh ent care was transferred to the destination unit staff after review of the patient's medical history, current anesthetic/surgical status and plan, according to the Provider Handoff Checklist. 1249 Stop Meds Name Total Midazolam 2 mg fentaNYL 250 mcg IV Lidocaine 40 mg Propofol 200 mg Rocuronium 50 mg PHENYLephrine 240 mcg Ondansetron 8 mg Dexamethasone 8 mg Ketamine INF 60 mg PHENYLephrine INF 900 mcg Ketamine 10 mg/mL 40 mg Heparin 5,000 Units eptifibatide (INTEGRILIN) injection 14,0 40 mcg 14.04 mg Lactated Ringers 1,000 mL lactated ringers infusion 1,000 mL 500 m L * Agents Name O2 Air N2O Sevoflurane (et) * Blood No blood administrations on file. Lines, Drains, and Airways Type Details Placement Removal Incision 05/11/15; groin; 01/21/19; 1211 05/11/15 0000 by Anabel Singh RN 01/21/19 1211 by Ninfa Maxwell RN (RETIRED) Peripheral IV Line - Single Lumen 05/11/15; 1014; metacarpal vein left (top of hand); [id number] catheter system; 20 gauge; Elise Mclaughlin RN; distraction, intradermal injection; site symptomatic, catheter intact; 05/12/15; 0536 05/11/15 1014 by Elise Mclaughlin RN 05/12/15 0536 by ene Titus Rn, Lara Lozano RN (RETIRED) Peripheral IV Line - Single Lumen 05/11/15; 1026; 05/11/15; 1705 05/11/15 1026 by Burke Beatty CLASSIFIED COPY CONTROL CLERK 05/11/15 1705 by Anabel Singh RN Arterial Line 05/11/15; 1045; radi al artery; 20 gauge; Burke Beatty CLASSIFIED COPY CONTROL CLERK (ultrasound guided); Sterile Prep, Sterile Gloves; 05/11/15; 1705 05/11/15 1045 by Burke Beatty CLASSIFIED COPY CONTROL CLERK 05/11/15 1705 by Anabel Singh RN ETT Mask Ventilation: No t Attempted (0); ETT Type: Cuffed, Oral; ETT Size: 7 mm; Dahl Blade: 3; Notes: Asleep, Pre-O2, RSI; Attempts: 1; Laryngoscopy Grade: 2; ETT Placement Verified By: Auscultation, Capnometry; Secured at Teeth: 22 cm; Inserted by: BARBRA Beatty; Removal Date: 05/11/15; Removal Time: 1220 05/11/15 1049 by Burke Beatty CRNA 05/11/15 1220 by Burke Beatty CRNA Urethral Catheter 05/11/15; 1105; Physician order; Physician order; indwelling single lumen catheter; 100% silicone; 16; inserted at this facility; 1; 10; 10; none; drainage bag to dependent drainage; 05/11/15; 211405/11/15 110 by Familia Delgado RN 05/11/152114 by Shell Sheriff RN (RETIRED) Peripheral IV Line - Single Lumen median cubital vein right (antecubital fossa); [id number]-gol-iarysm catheter system; 18 gauge; (BARBRA Beatty); (general anesthesia); 1; 05/11/15; 194405/11/15 111 by 05/11/151944 by Shell Sheriff RN documented in this encounter Social History Tobacco [...] OR Notes * Anesthesia Postprocedure Evaluation - Hilaria Vargas MD - 05/11/2015 1:44 PM EST [facility] [place] Department of Anesthesiology Post-procedure Note Patient: Ghada Ervin Procedure Summary Date Anesthesia Start Anesthesia Stop Room / Location 05/11/15 1021 1249 [facility] INTERVENTIONAL RADIOLOGY / [facility] Procedure Diagnosis Surgeon Responsible Provider ANGIOPLASTY-INTRACRANIAL (N/A ) (right opthalmic artery aneurysm) Johnny Bass MD Ikeda, Sharon K, MD Last (1hr) Vitals: BP 110/71 mmHg (05/11/15 1315) Temp 36.2 ??C (97.2 ??F) (05/11/15 1245) Pulse 74 (05/11/15 1315) Resp 16 (05/11/15 1315) SpO2 92 % (05/11/15 1315) Patient Location: PACU/CAP Level of Consciousness: Conscious but Sleepy Pain Management: Satisfactory Analgesia PONV: None Cardiovascular Status: At Baseline Respiratory Status: At Baseline Postoperative Fluid Status: Intravascular EUvolemia Possible Anesthetic Complications: NONE apparent at time of evaluation Final Primary Anesthesia Type: General (The anesthetic type performed was the same as planned.) Comments: Pt has some facial droop,unilateral weakness(surgeons aware) * Anesthesia Preprocedure Evaluation - Hilaria Vargas MD - 05/10/2015 1:16 PM EST Images from the original note were not included. Pre-Anesthesia Evaluation for: Ghada Ervin a 24 y.o. female. Procedure(s): ANGIOPLASTY-INTRACRANIAL Patient Active Problem List Diagnosis ??? Spondylosis of lumbar region without [...] VERTEBRAL SEG. / T10/T11/T12/T3/T4/T5/T6/T7/T8/T9 Procedure Date: 06/19/2007 History Substance Use Topics ??? Smoking status: Current Every Day Smoker -- 1.00 packs/day for 8 years Types: Cigarettes ??? Smokeless tobacco: Never Used ??? Alcohol Use: No History Drug Use ??? Yes ??? Special: Pain Pills (oxycontin, oxycodone, morphine, etc), Marijuana Allergies Allergen Reactions ??? Bee Pollen Anaphylaxis ??? Meperidine Hcl Anaphylaxis and Other (See Comments) flushing, respiratory trouble ??? [place] Other (See Comments) Flu like sx ??? Zoloft [Sertraline] Other (See Comments) Flu like sx Medications: MAR and/or home medications have been reviewed. Physical Exam: There were no vitals filed for this visit. There is no weight on file to calculate BMI. Airway Assessment: Mallampati: II TM distance: >3 FB Neck ROM: full 06/19/07, 01/12/15 - EZ FM, Mac 3 Gr 1 Cardiovascular Assessment: Pulmonary Assessment: breath sounds clear to auscultation Dental Assessment: Misc Assessment: Patient is wearing No contact(s). 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 Hx SVT - s/p successful ablation 01/12/15 Fibromyalgia Chronic pain syndrome w/ chronic opiate use(percocet 10 mg QID) Chronic daily migraines ADD Scoliosis - s/p posterior surgical fusion T3-T12 w/ hardware and bone graft 05/2007 Smoker - 1ppd x 8 yrs + marijuana URI - some phlegmy throat, no chest congestion or fever GERD - not well controlled on omeprazole - takes TUMS for breakthrough, last time 05/09 Required blood tx after C/S and scoliosis surgery No problems w/ anesthesia Allergies: Beesting(anaphylaxis), Demerol(flushing, respiratory trouble), [place](flu-like sx), Zoloft(flu-like sx) Wt: 78 kg UPT: negative NPO: solids 2330, liquids 0800(broderick trang) Code: Full 04/30/15 WBC 8.3, H/H 13.4/39.7, plts 226 Na 140, K 3.8, BUN 13, Cr 0.61, eGFR greater than 60 T&S? Plan GAET, std monitors + pre-induction arterial line, adequate IV access, spicer. Region - Other Informed Consent: Anesthetic plan and risks discussed with patient. Use of blood products discussed with patient whom consented to blood products. PAT Staff Note documented in this encounter Plan of Treatment Upcoming Encounters Date Type Department Care Team (Late st Contact Info) Description 01/24/2024 3:40 PM EDT Office Visit Cardiology at [address] [phone] Rangel Willams MD [facility] [place] [address] documented as of this encounter Visit Diagnoses Not on filedocumented in this encounter Administered Medications Inactive Administered Medications - up to 3 most recent administrations Medication Order MAR Action Action Date Dose Rate Site dexamethasone (DECADRON) injection PRN, Starting on Mon05/11/15 at 1058, Until Mon05/11/15 at 1312, Anesthesia Intra-op, Routine Given 05/11/2015 10:58 AM EST 8 mg eptifibatide (INTEGRILIN) injection 14,040 mcg 14,040 mcg (180 mcg/kg ? 78 kg Order-specific weight), Intravenous, ONCE PRN, 1 dose, Starting on Mon05/11/15 at 1119, Until Mon05/11/15 at 1147, If stent is placed, For use if stent is placed. , Routine Given 05/11/2015 11:47 AM EST 14.04 mg fentaNYL 50 mcg/mL multi-dose injection PRN, Starting on Mon05/11/15 at 1021, Until Mon05/11/15 at 1310, Pain, Anesthesia Intra-op, Routine Given 05/11/2015 12:25 PM EST 50 mcg Given 05/11/2015 12:00 PM EST 50 mcg Given 05/11/2015 10:48 AM EST 50 mcg heparin (porcine) injection PRN, Starting on Mon05/11/15 at 1140, Until Mon05/11/15 at 1310, Anesthesia Intra-op, Routine Given 05/11/2015 11:40 AM EST 5,000 Units ketamine (KETALAR) 10 mg/mL bolus injection (Anesthesia) PRN, Starting on Mon05/11/15 at 1048, Until Mon05/11/15 at 1310, Anesthesia Intra-op Given 05/11/2015 10:48 AM EST 40 mg ketamine (KETALAR) 10 mg/mL injection CONTINUOUS PRN, Starting on Mon05/11/15 at 1056, Until Mon05/11/15 at 1310, Anesthesia Intra-op, Routine New Bag 05/11/2015 10:54 AM EST 10 mcg/kg/min 4.8 mL/hr lactated ringers infusion 1,000 mL 1,000 mL, at 100 mL/hr, Intravenous, CONTINUOUS, Starting on Mon05/11/15 at 1000, Until Mon05/11/15 at 1658, Day of Surgery (Day of Procedure) New Bag 05/11/2015 10:53 AM EST New Bag 05/11/2015 10:18 AM EST 1,000 mLs 100 mL/hr lactated ringers infusion CONTINUOUS PRN, Starting on Mon05/11/15 at 0954, Until Mon05/11/15 at 1310, Anesthesia Intra-op New Bag 05/11/2015 9:54 AM EST lidocaine (PF) (XYLOCAINE) 100 mg/5 mL (2 %) injection PRN, Starting on Mon05/11/15 at 1048, Until Mon05/11/15 at 1310, Anesthesia Intra-op, Routine Given 05/11/2015 10:48 AM EST 40 mg midazolam (PF) (VERSED) 1 mg/mL multi-dose injection PRN, Starting on Mon05/11/15 at 1021, Until Mon05/11/15 at 1310, Sleep, Anesthesia Intra-op, Routine Given 05/11/2015 10:21 AM EST 2 mg ondansetron (ZOFRAN) injection PRN, Starting on Mon05/11/15 at 1206, Until Mon05/11/15 at 1312, Nausea, Anesthesia Intra-op, Routine Given 05/11/2015 12:06 PM EST 8 mg PHENYLephrine (JOYCE-SYNEPHRINE) 20 mg in sodium chloride 250 mL (standard ADULT & Keshia greater than 20kg) infusion CONTINUOUS PRN, Starting on Mon05/11/15 at 1129, Until Mon05/11/15 at 1310, Anesthesia Intra-op, Routine Rate/Dose Change 05/11/2015 11:45 AM EST 20 mcg/min 15 mL/hr Rate/Dose Change 05/11/2015 11:35 AM EST 50 mcg/min 37.5 m L/hr New Bag 05/11/2015 11:29 AM EST 20 mcg/min 15 mL/hr PHENYLephrine HCl in NS (PF) (JOYCE-SYNEPHRINE) 0.8 mg/10 mL (80 mcg/mL) multi-dose injection Syrg PRN, Starting on Mon05/11/15 at 1117, Until Mon05/11/15 at 1310, Anesthesia Intra-op, Routine Given 05/11/2015 11:23 AM EST 80 mcg Given 05/11/2015 11:19 AM EST 80 mcg Given 05/11/2015 11:17 AM EST 80 mcg propofol (DIPRIVAN) 10 mg/mL bolus injection (Anesthesia) PRN, Starting on Mon05/11/15 at 1048, Until Mon05/11/15 at 1310, Anesthesia Intra-op Given 05/11/2015 10:48 AM EST 20 0 mg rocuronium (ZEMURON) multi-dose injection PRN, Starting on Mon05/11/15 at 1048, Until Mon05/11/15 at 1310, Anesthesia Intra-op, Routine Given 05/11/2015 10:48 AM EST 50 mg documented in this encounter Care Teams Supervisor [employer] Relationship Specialty Start Date End Date Apple Walters APRN PCP - General 01/14/14 06/19/16 documented as of this encounter
--- OUTSIDE RECORDS SUMMARY | 2023-12-27 19:48 | XMS_ITS | Encounter Summary ---
[place] [address] Care Team Providers Care Oversize Load Pilot Escort Name Role Phone Apple Quiñonez KIM Primary Care Provider [phone] Reason for Visit * Auth/Cert - Closed Specialty Diagnoses / Procedures Referred By Lang t Referred To Contact Diagnoses right opthalmic artery aneurysm Procedures PRO INTRACRANIAL BALLOON ANGIOPLASTY ANGIOPLASTY-INTRACRANIAL Referral ID Status Reason Start Date Expiration Date Visits Re quested Visits Authorized [id number] Closed 1 1 Encounter Details Date Type Department Care Team (Latest Contact Info) Description 05/11/2015 8:59 AM EST - 05/12/2015 1:16 PM [facility] Hospital Encounter [facility] [place] [address] Karlo Bass MD [facility] [place] [address] Discharge Disposition: Home Social History Tobacco Use [...] Medications dihydroergotamine 0.5 mg/pump act. (4 mg/mL) Malinta Commonly known as: MIGRANAL [employer] Misc nalOXone 1 mg/mL Syrg Commonly known as: NARCAN naproxen sodium 550 mg Tab Commonly known as: ANAPROX omeprazole 20 mg Cpdr Commonly known as: PriLOSEC oxyCODONE-acetaminophen 10-325 mg Tab Commonly known as: PERCOCET Updated Allergies/ADRs: Allergies Allergen Reactions ??? Bee Pollen Anaphylaxis ??? Meperidine Hcl Anaphylaxis and Other (See Comments) flushing, respiratory trouble ??? Crooks Other (See Comments) Flu like sx ??? [...] Nurse (Gladys Latif) Inpatient Nurses Neurosurgical Resident Piggery Worker (after 5pm or before 8am) Neurosurgery offices (between 8am-5pm): Dr. Conley Dr. Castaneda (pediatric neurosurgery) Dr. Aponte: Pediatric Patients , Adult Patients Dr. Mak Dr. Mehta Dr. Baez Dr. Bass Johnnie Turk, Physician Open Hearth Laborer Nina Grimes, Nurse Practitioner Johnnie Tijerina, Physician Open Hearth Laborer Hilaria Lutz, Nurse Practitioner CC: APPLE QUIÑONEZ APRN Future Appointments Provider Department Dept Phone 05/18/2015 12:30 PM Ignacia Watts APRN Pain Management [phone] Electronically Signed By: RICCO GARNICA 05/12/2015 documented [...] Nurse (Gladys Latif) Inpatient Nurses Neurosurgical Resident Piggery Worker (after 5pm or before 8am) Neurosurgery offices (between 8am-5pm): Dr. Conley Dr. Castaneda (pediatric neurosurgery) Dr. Aponte: Pediatric Patients , Adult Patients Dr. Mak Dr. Mehta Dr. Baez Dr. Bass Johnnie Turk, Physician Open Hearth Laborer Nina Grimes, Nurse Practitioner Johnnie Tijerina, Physician Open Hearth Laborer Hilaria Lutz, Nurse Practitioner CC: APPLE QUIÑONEZ [...] %] I/O last 3 completed shifts: In: 1682 [I.V.:168] Out: 287 [Urine:287] AAOx3 Speech fluent [...] at 1630 was 37, pharmacy paged to sendChubbies Shortstx, awaiting delivery of Heparin. * Anabel Singh [...] paraophthalmic artery aneurysm. Attending: Karlo Bass M.D. Open Hearth Laborer: Silvana Operative Note: The patient presents to the Angio Suite, general endotracheal anesthesia is induced. Bifemoral sites are shaved then prepped and draped in sterile fashion. Ben incision made over the region of the right femoral artery, accessed with a single wall needle technique. wiseri wire is passed in the vessel and over to a 6 Belarusian sheath connected to a continuous heparinized flush solution. A 6 Belarusian guide catheter is transnavigated over an 0.035 [...] PM EDT Office Visit Cardiology at [address] [address] Rangel Willams MD [facility] [place] [address] documented as of this encounter Procedures Procedure [...] Thromboplastin Time 70(H) 25 - 35 sec [email or web address] [email or web address] Comment: Recommended therapeutic PTT range for full dose unfractionated heparin is 80-114 seconds. Blood specimen (specimen) 05/12/2015 10:59 AM EST 05/12/2015 11:17 AM EST Narrative Resulting Agency Comment Spec In Lab Karlo Bass MD HEMATOLOGY ORDERABLE S Performing Organization Address [facility] Co de Phone Number Cmed * (ABNORMAL) APTT (05/12/2015 8:38 AM EST) Partial Thromboplastin Time 67(H) 25 - 35 sec [email or web address] [email or web address] Comment: Recommended therapeutic PTT range for full dose unfractionated heparin is 80-114 seconds. Blood specimen (specimen) 05/12/2015 8:38 AM EST 05/12/2015 8:55 AM EST Narrative Resulting Agency Comment Spec In Lab Karlo Bass MD HEMATOLOGY ORDERABLE S Performing Organization Address City/State/[facility] Co de Phone Number Cmed * (ABNORMAL) APTT (05/12/2015 5:30 AM EST) Partial Thromboplastin Time 47(H) 25 - 35 sec [email or web address] [email or web address] Comment: Recommended therapeutic PTT range for full [...] MD HEMATOLOGY ORDERABLE S Performing Organization Address City/[facility] Co de Phone Number CERJOSÉ ANTONIO [...] MD HEMATOLOGY ORDERABLE S Performing Organization Address City/[facility] Co de Phone Number CERJOSÉ ANTONIO [...] MD HEMATOLOGY ORDERABLE S Performing Organization Address City/[facility]/ZIP Co de Phone Number THERESA SANABRIAIUM * (ABNORMAL) Basic Metabolic Panel (non-fasting) (05/12/2015 2:40 AM EST) Pathologist [facility] Glucose 210(H) 65 - 199 mg/dL CERNER MILLENNIUM Comment:Diabetes: >=200 mg/d L plus symptoms Blood Urea Nitrogen 20(H) 8 - 18 mg/dL CERNER MILLENNIUM Creatinine 0.86 0.70 - 1.20 mg/dL CERNER MILLENNIUM Comment: Please note that the pediatric reference intervals supplied above were not validated at [facility]. Results from pediatric patients should be interpreted [...] the following links into your internet browser. [email or web address] Blood specimen (specimen) 05/12/2015 2:40 AM EST 05/12/2015 2:47 AM EST Narrative Resulting Agency Comment Spec In Lab Karlo Bass MD CHEMISTRY ORDERABLES [facility] * (ABNORMAL) APTT (05/11/2015 11:51 PM EST) Partial Thromboplastin Time 48(H) 25 - 35 sec CERNER MILLENNIUM Comment: Recommended therapeutic PTT range for full dose unfractionated heparin is 80-114 seconds. Blood specimen (specimen) 05/11/2015 11:51 PM EST 05/11/2015 11:56 PM EST Narrative Resulting Agency Comment Spec In Lab Karlo Bass MD HEMATOLOGY ORDERABLE S Performing Organization Address [facility] de Phone Number [facility] * (ABNORMAL) APTT (05/11/2015 9:04 PM EST) Partial Thromboplastin Time 39(H) 25 - 35 sec [facility] MILLENNIUM Comment: Recommended therapeutic PTT range for full dose unfractionated heparin is 80-114 seconds. Blood specimen (specimen) 05/11/2015 9:04 PM EST 05/11/2015 9:10 PM EST Narrative Resulting Agency Comment Spec In Lab Karlo Bass MD HEMATOLOGY ORDERABLE S Performing Organization Address [facility] de Phone Number CERJOSÉ ANTONIO NAVAENNIUM * (ABNORMAL) APTT (05/11/2015 4:30 PM EST) Partial Thromboplastin Time 37(H) 25 - 35 sec [facility] MILLENNIUM Comment: Recommended therapeutic PTT range for full dose unfractionated heparin is 80-114 seconds. Blood specimen (specimen) 05/11/2015 4:30 PM EST 05/11/2015 4:49 PM EST Narrative Resulting Agency Comment Spec In Lab Karlo Bass MD HEMATOLOGY ORDERABLE S Performing Organization Address [facility] de Phone Number CERJOSÉ ANTONIO NAVAENNIUM * Differential, Automated (05/11/2015 1:20 PM EST) Neutrophil % 39.5 % [facility] MILLENNIUM Neutrophil Absolute 2.76 1.50 - 6.30 x10(3)/mcL [facility] MILLENNIUM Lymph % 49.2 % [facility] MILLENNIUM Lymphocytes Abs 3.4 1.0 - 3.6 [...] ORDERABLE S CERNER MILLENNIUM * (ABNORMAL) Hemogram (05/11/2015 1:20 PM EST) [...] Platelet 246 145 - 370 x10(3)/mc L [facility] RDW Standard Deviation 47.1(H) 35.0 - 46.0 fL [facility] RDW coefficient of variation 13.4 10.9 - 14.4 % [facility] Mean Platelet Volume 10.7 9.0 - 12.0 fL [facility] Blood specimen (specimen) 05/11/2015 1:20 PM EST 05/11/2015 1:36 PM EST Narrative Resulting Agency Comment Spec In Lab Karlo Bass MD HEMATOLOGY ORDERABLE S Performing Organization Address City/[facility] Co de Phone Number [facility] * (ABNORMAL) APTT (05/11/2015 1:20 PM EST) Partial Thromboplastin Time >160(Crit ical) 25 - 35 sec [facility] Comment: Called by: GEOVANNA, Read back by: Veronica Singh, Date/Time:05/11/15 14:06. Recommended therapeutic PTT range for full dose unfractionated heparin is 80-114 seconds. Blood specimen (specimen) 05/11/2015 1:20 PM EST 05/11/2015 1:36 PM EST Narrative Resulting Agency Comment Spec In Lab Karlo Bass MD HEMATOLOGY ORDERABLE S Performing Organization Address City/[facility] Co de Phone Number [facility] * POCT urine (05/11/2015) POC Urine HCG Negative Negative - Negative POC Control Internal Controls Acceptable 05/11/2015 Hilaria Vargas MD POINT OF CARE TEST O RDERABLES documented in this encounter Visit Diagnoses Diagnosis Intracranial aneurysm Cerebral aneurysm, nonruptured documented in this encounter Admitting Diagnoses Diagnosis Intracranial [...] per day. Mild pain (1-3)., Routine Given 05/12/2015 6:21 AM EST 650 mg Given 05/12/2015 1:59 AM EST 650 mg Given 05/11/2015 9:54 PM EST 650 mg ALPRAZolam (XANAX) tablet 0.5 mg 0.5 mg, Oral, DAILY PRN, Starting on Mon05/11/15 at 1309, Until Mon05/12/15 at 1517, Sleep, Anxiety, no more than 10 per month, Routine Given 05/12/2015 9:29 AM EST 0.5 mg aspirin tablet 325 mg 325 mg, Oral, DAILY, First dose on Mon05/12/15 at 0945, Until Discontinued, Routine Given 05/12/2015 9:29 AM EST 325 mg calcium carbonate (TUMS) chewable tablet 1,000 mg 1,000 mg (2 tablet), Oral, DAILY PRN, Starting on Mon05/11/15 at 1738, Until Mon05/12/15 at 1517, Heartburn, Routine Given 05/12/2015 2:26 AM EST 1,000 mg clopidogrel (PLAVIX) tablet 75 mg 75 mg, Oral, DAILY, First dose on Mon05/12/15 at 1000, Until Discontinued, Routine Given 05/12/2015 10:39 AM EST 75 mg cyproheptadine (PERIACTIN) tablet 4 mg 4 mg, Oral, NIGHTLY, First dose on Mon05/11/15 at 2100, Until Discontinued, Routine Given 05/11/2015 9:46 PM EST 4 mg dexamethasone (DECADRON) injection 10 mg 10 mg, Intravenous, ONCE, 1 dose, On Mon05/11/15 at 2130 Given 05/11/2015 9:37 PM EST 10 mg dextroamphetamine-amphetamine (ADDERALL XR) XR capsule 20 mg 20 mg, Oral, EVERY MORNING, First dose on Mon05/12/15 at 0700, Until Discontinued, Routine Given 05/12/2015 6:21 AM EST 20 mg famotidine (PEPCID) tablet 20 mg 20 mg, Oral, 2 TIMES DAILY, First dose on Mon05/11/15 at 2100, Until Discontinued, If unable to take PO, may give IV, Routine Given 05/12/2015 8:17 AM EST 2 0 mg Given 05/11/2015 9:38 PM EST 20 mg heparin 25,000 units in dextrose 5% 500 mL infusion 10 Units/kg/hr ? 78 kg (15.6 mL/hr), [...] prescriber to change dosage , Routine Rate/Dose Verify 05/12/2015 9:16 AM EST 10 Units/kg/hr 15.6 mL/hr Rate/Dose Change 05/12/2015 6:41 AM EST 15.128 Units/kg/hr 23.6 mL/hr Rate/Dose Change 05/12/2015 3:36 AM EST 13.846 Units/kg/hr 21.6 mL/hr HYDROmorphone (DILAUDID) injection 0.3 mg 0.3 mg, Intravenous, EVERY 1 HOUR PRN, Starting on Mon05/11/15 at 2007, Until Mon05/12/15 at 0917, Pain, breakthrough pain, Routine Given 05/12/2015 5:40 AM EST 0.3 mg Given 05/12/2015 3:43 AM EST 0.3 mg Given 05/12/2015 1:47 AM EST 0.3 mg HYDROmorphone (DILAUDID) syringe 0.2-0.4 mg 0.2-0.4 mg, Intravenous, EVERY 5 MIN PRN, Pain, Starting on Mon05/11/15 at 1226, Until Mon05/11/15 at 1658, For moderate pain (4-6) give: 0.2 mg every 5 minute prn For severe pain (7-10) give: 0.4 mg every 5 minutes prn Maximum dose: 4 mg per hour Hold for respiratory rate less than 10 per minute., PACU Recovery Given 05/11/2015 4:20 PM EST 0.4 mg Given 05/11/2015 3:36 PM EST 0.4 mg Given 05/11/2015 3:12 PM EST 0.4 mg HYDROmorphone (DILAUDID) tablet 2-4 mg 2-4 mg, Oral, EVERY 4 HOURS PRN, Starting on Mon05/12/15 at 0922, Until Mon05/12/15 at 1517, Pain, Pain 1-5 2 mg, Pain 6-10 4 mg, Routine Given 05/12/2015 9:30 AM EST 2 mg lactated ringers infusion 1,000 mL 1,000 mL, at 100 mL/hr, Intravenous, CONTINUOUS, Starting on Mon05/11/15 at 1000, Until Mon05/11/15 at 1658, Day of Surgery (Day of Procedure) New Bag 05/11/2015 10:53 AM EST New Bag 05/11/2015 10:18 AM EST 1,000 mLs 100 mL/hr magnesium oxide (MAG-OX) tablet 200 mg 200 mg, Oral, 2 TIMES DAILY, First dose on Mon05/11/15 at 2100, Until Discontinued, Routine Given 05/12/2015 8:17 AM EST 200 mg Given 05/11/2015 9:38 PM EST 200 mg ondansetron (ZOFRAN) injection 4 mg 4 mg, Intravenous, EVERY 8 HOURS PRN, Starting on Mon05/11/15 at 1738, Until Mon05/12/15 at 1517, Nausea, If multiple antiemetics are ordered, use ondansetron first, prochlorperazine second, and metaclopramide third. May repeat times one in 30 minutes if ineffective Given 05/12/2015 9:19 AM EST 4 mg ondansetron (ZOFRAN) tablet 4 mg 4 mg, Oral, EVERY 8 HOURS PRN, Starting on Mon05/11/15 at 1738, Until Mon05/12/15 at 1517, Nausea, Vomiting, If multiple antiemetics are ordered, use ondansetron first, prochlorperazine second, and metaclopramide third. PO Preferred. If patient unable to take PO, may give IV if ordered. May repeat times one in 45 minutes if ineffective., Routine Given 05/11/2015 9:54 PM EST 4 mg oxyCODONE (ROXICODONE) immediate release tablet 15 mg 15 mg, Oral, EVERY 4 HOURS PRN, Starting on Mon05/11/15 at 1309, Until Mon05/12/15 at 0922, Pain, severe pain (7-10), May give an additional 5 mg in 30 minutes once if pain not relieved. Severe pain (7-10), Routine Given 05/12/2015 6:21 AM EST 15 mg Given 05/12/2015 1:59 AM EST 15 mg Given 05/11/2015 9:54 PM EST 15 mg oxyCODONE-acetaminophen (PERCOCET) 5-325 mg per tablet 2 tablet 2 tablet, Oral, ONCE, 1 dose, On Mon05/11/15 at 1030, Maximum dose of acetaminophen is 4000 mg from all sources in 24 hours., Day of Surgery (Day of Procedure), Routine Given 05/11/2015 10:17 AM EST 2 tablets pregabalin (LYRICA) capsule 150 mg 150 mg, Oral, 2 TIMES DAILY, First dose (after last reorder) on Mon05/11/15 at 2100, Until Discontinued, Routine Given 05/12/2015 8:16 AM EST 150 mg Given 05/11/2015 9:46 PM EST 150 mg prochlorperazine (COMPAZINE) tablet 10 mg 10 mg, Oral, EVERY 6 HOURS PRN, Starting on Mon05/11/15 at 1738, Until Mon05/12/15 at 1517, Nausea, Vomiting, If multiple antiemetics are ordered, use ondansetron first, prochlorperazine second, and metaclopramide third. PO Preferred. If patient unable to take PO, may give IV if ordered., Routine Given 05/12/2015 2:27 AM EST 10 mg promethazine (PHENERGAN) injection 12.5 mg 12.5 mg, Intravenous, EVERY 30 MIN PRN, Nausea, Starting on Mon05/11/15 at 1226, 2 doses, Until Mon05/11/15 at 1658, If multiple antiemetics ordered, use ondansetron first and if ineffective use prochlorperazine second and if ineffective use promethazine, PACU Recovery Given 05/11/2015 1:54 PM EST 6.25 mg senna-docusate (PERICOLACE) 8.6-50 mg per tablet 2 tablet 2 tablet, Oral, 2 TIMES DAILY, First dose on Mon05/11/15 at 2100, Until Discontinued, Routine Given 05/12/2015 8:16 AM EST 2 tablets Given 05/11/2015 9:46 PM EST 2 tablets sodium chloride 0.9 % flush 5 mL 5 mL, Intravenous, 2 TIMES DAILY, First dose on Mon05/11/15 at 1330, Until Discontinued, Recovery (Recovery-Hospital Unit), Routine Given 05/12/2015 9:00 AM EST 5 mLs Given 05/11/2015 9:53 PM EST 5 mLs Given 05/11/2015 1:27 PM EST 5 mLs sodium chloride 0.9 % flush 5 mL 5 mL, Intravenous, 2 TIMES DAILY, First dose on Mon05/11/15 at 2100, Until Discontinued, Routine Given 05/12/2015 9:00 AM EST 5 mLs Given 05/11/2015 9:51 PM EST 5 mLs sodium chloride 0.9% infusion 50 mL/hr, Intravenous, CONTINUOUS, Starting on Mon05/11/15 at 1315, Until Mon05/11/15 at 1954, Recovery (Recovery-Hospital Unit) New Bag 05/11/2015 1:03 PM EST 50 mL/h r 50 mL/hr topiramate (TOPAMAX) tablet 50 mg 50 mg, Oral, 2 TIMES DAILY, First dose on Mon05/11/15 at 2100, Until Discontinued, Routine Given 05/12/2015 8:17 AM EST 50 mg Given 05/11/2015 9:38 PM EST 50 mg documented in this encounter Active and Recently Administered Medications Times are shown in EST. Scheduled Medication Order 05/10/2015 05/11/2015 05/12/2015 aspirin tablet 325 mg 325 mg, Oral, DAILY, First dose on Mon05/12/15 at 0945, Until Discontinued, Routine 0929 (Given - Provid er: Harini Britton) clopidogrel (PLAVIX) tablet 75 mg 75 mg, Oral, DAILY, First dose on Mon05/12/15 at 1000, Until Discontinued, Routine 1039 (Given - Provid er: Harini Britton) cyproheptadine [...] Day of Surgery (Day of Procedure), Routine 101 (Given - Provider: Elise Mclaughlin RN) pregabalin [...] on Mon05/11/15 at 2100, Until Discontinued, Routine 2146 (Given - Provider: Shell Sheriff RN) 0816 (Given - Provider: Harini Britton) sodium chloride 0.9 % flush 5 mL (CANCELED) 5 mL, Intravenous, 2 TIMES DAILY, First dose on Mon05/11/15 at 1330, Until Discontinued, Recovery (Recovery-Hospital Unit), Routine 1327 (Given - Provider: Anabel Singh RN)2153 (Given - Provider: Shell Sheriff RN) 0900 (Given - Provider: Harini Britton) sodium chloride 0.9 % flush 5 mL (CANCELED) 5 mL, Intravenous, 2 TIMES DAILY, First dose on Mon05/11/15 at 2100, Until Discontinued, Routine 215 (Given - Provider: Shell Sheriff RN) 0900 (Given - Provider: Harini Britton) topiramate (TOPAMAX) tablet 50 mg (CANCELED) 50 mg, Oral, 2 TIMES DAILY, First dose on Mon05/11/15 at 2100, Until Discontinued, Routine 213 (Given - Provider: Shell Sheriff RN) 0817 [...] Anabel Singh RN)1312 (Given - Provider: Anabel Singh RN)1328 (Given - Provider: Anabel Singh RN)1356 (Given - Provider: Anabel Singh RN)1512 (Given [...] 2153 (Given - Provider: Shell Sheriff RN) 918 (See Alternative - Provider: Harini Britton) oxyCODONE [...] 0922, Pain, mild pain, Give per rectum ([place]) if unable to take PO. May repeat [...] Routine documented in this encounter Care Teams Oversize Load Pilot Escort Relationship Specialty Start Date End Date Apple Quiñonez APRN PCP - General 01/14/14 06/19/16 documented as of this encounter
--- OUTSIDE RECORDS SUMMARY | 2023-12-27 19:49 | XMS_ITS | Encounter Summary ---
Author Organization [facility] [place] [address] Care Team Providers Care Metallographic Technician Name Role Phone Apple Quiñonez Matthias ALVAREZ Primary Care Provider [phone] Encounter Details Date Type Department Care Team (Late st Contact Info) Description 01/12/2015 7:30 AM EDT - 01/12/2015 12:00 PM EDT Surgery [place] [id number] Ignacio Alicia MD [facility] [place] [address] ELECTROPHYSIOLOGY PROCEDURE Social History Tobacco Use Types Packs/Day Years Used Date Smoking Tobacco: Former Cigarettes 0.3 8 0 11/09/2006 - 11/09/2014 Smokeless Tobacco: Never Comments:has a few [...] Sign Reading Time Taken Comments Blood Pressure 128/79 01/12/2015 6:45 AM EDT Pulse 79 01/12/2015 6:45 AM EDT Temperature 36.1 ??C (97 ??F) 01/12/2015 6:45 AM EDT Respiratory Rate 20 01/12/2015 6:45 AM EDT Oxygen Saturation 97% 01/12/2015 6:45 AM EDT Inhaled Oxygen Concentration - - Weight 71.8 kg (158 lb 3.2 oz) 01/12/2015 6:45 A M EDT Height 157.5 cm (5' 2.01) 01/12/2015 6:45 AM ED T Body Mass Index 28.93 01/12/2015 6:45 AM EDT documented in this encounter Discharge Summaries * Gabby Zaldivar, NUTRITION TEACHER - 01/13/2015 8:56 AM EDT Cardiac Electrophysiology Discharge Summary Patient Name: Ghada Ervin Patient Age: 24 y.o. Language: Czech Race: White Ethnicity: Not nor Admit date: 01/12/2015 Discharge date and time: 01/13/2015 Attending Physician: Ignacio Alicia MD Discharge Physician: Ignacio Alicia MD Follow-up Recommendations for Providers: 1. Continue home medications 2. Ice packs for access sites 3. Continue home medications 4. Follow up with Dr. Alicia in 1 month 5. Discharge home today. Inpatient Provider Contact Information: Cardiac Electrophysiology - Discharge Diagnoses (Hospital Problems) and Secondary Diagnoses (Chronic Problems): There are no hospital problems to display for this patient. Active Non-Hospital Problems Diagnosis ??? Encounter for long-term (current) use of other medications ??? SVT (supraventricular tachycardia) ??? ADD (attention deficit disorder) ??? Scoliosis ??? Heart palpitations ??? Chronic pain syndrome ??? Fibromyalgia ??? Migraines Operations/Major Procedures: Operations: Procedure(s): ELECTROPHYSIOLOGY PROCEDURE 01/12/2015 EPS/Ablation 01/12/15: ?? 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 female with a history of SVT, chronic pain syndrome, fibromyalgia, migraines, scoliosis, and ADD admitted for SVT ablation on 01/12/15. Hospital Course: She underwent the procedure without complications. She remained in sinus rhythm on telemetry without arrhythmias. She had pain at the neck access site, which ice helped. She is on percocet at home for chronic pain, which would cover this. Vital Signs at Discharge: BP: 103/54 mmHg, Heart Rate: 95, Temp: 36.6 ??C (97.9 ??F), Resp: 16, BMI (Calculated): 29 Height: 157.5 cm (5' 2.01) (01/12/1545) Weight - Scale: 71.759 kg (158 lb 3.2 oz) (01/12/15644) Functional and Cognitive Status: Stable Admission Diagnoses: SVT/HEART PALP Discharge Diagnoses: SVT/HEART PALP S/P ablation Admission Condition: good Indication for Admission: Medical necessity/monitoring post-procedure Consults: none Important Studies and Lab Data: Lab Results Component Value Date WBC 6.4 01/12/2015 HGB 12.7 01/12/2015 HCT 38.1 01/12/2015 PLATELET 250 01/12/2015 Recent Labs 01/12/15 0639 INR 1.0 Lab Results Component Value Date NA 140 01/12/2015 K 4.0 01/12/2015 CL 102 01/12/2015 BUN 18 01/12/2015 CREATININE 0.79 01/12/2015 Treatments: Ablation/monitoring Discharge Exam: Please see physical exam in day of discharge progress note. No changes. Discharge Conditions/Prognosis: good Discharge to: home Updated Allergies/ADRs: Allergies Allergen Reactions ??? Bee Pollen Anaphylaxis ??? Meperidine Hcl Anaphylaxis and Other (See Comments) flushing, respiratory trouble Immunizations Given this Hospitalization: There is no immunization history for the selected administration types on file for this patient. Discharge Medications: Your Medications Continued medications with new dosing Dose Details gabapentin 300 mg Cap Commonly known as: NEURONTIN 300-300-300 for 3 days, 300-300-600 for 3 days , then 300-300-900 What changed: additional instructions Quantity: 150 capsule Refills: 3 Continued medications, unchanged Dose Details ALPRAZolam 0.5 mg Tab Commonly known as: XANAX Take 0.5 mg by mouth daily as needed for Sleep or Anxiety (no more than 10 per month). Indications:Panic Disorder 0.5 mg Refills: 0 rebrcptvpl-apetezwkvlorc-ivjekaon-codeine [id number] mg Cap Commonly known as: FIORICET WITH CODEINE Take 1 tablet by mouth every 4 hours as needed. 1 tablet Refills: 0 calcium carbonate 200 mg calcium (500 mg) Chew Commonly known as: TUMS Take 2 tablets by mouth daily as needed. 2 tablet Refills: 0 mometasone 50 mcg/actuation [place] Commonly known as: NASONEX 1 spray by Nasal route as needed. 1 spray Refills: 0 nitrofurantoin 100 mg Cap Commonly known as: MACRODANTIN Take 100 mg by mouth nightly. 100 mg Refills: 0 omeprazole 20 mg Cpdr Commonly known as: PriLOSEC Take 20 mg by mouth nightly. 20 mg Refills: 0 oxyCODONE-acetaminophen 10-325 mg Tab Commonly known as: PERCOCET Take 1 tablet by mouth every 6 hours as needed for Pain (no more than 4 per day) for up to 28 days.Indications: Pain 1 tablet Quantity: 112 tablet Refills: 0 SAVELLA 50 mg Tab Take 50 mg by mouth 2 times daily. Generic drug: milnacipran 50 mg Refills: 0 * topiramate 25 mg Tab Commonly known as: TOPAMAX Take 50 mg by mouth daily. 50 mg Refills: 0 * topiramate 50 mg Tab Commonly known as: TOPAMAX Take 50 mg by mouth nightly. 50 mg Refills: 0 * Notice: This list has 2 medication(s) that are the same as other medications prescribed for you. Read the directions carefully, and ask your doctor or other care provider to review them with you. STOPPED Medications meTOPROLOL succinate 50 mg Tablet sr Commonly known as: TOPROL-XL Smoking Status at Discharge: History Smoking status ??? Former Smoker -- 0.25 packs/day for 8 years ??? Types: Cigarettes ??? Quit date: 11/09/2014 Smokeless tobacco ??? Never Used Comment: has a few cigarettes a day Instructions Given to Patient at Discharge: Patient Instructions 1. Medications as prescribed. Use ice packs as often as you'd like over the access sites for discomfort. 2. Follow up with Dr. Alicia in 1 month. You will have a surveillance monitor (ZIO patch) ordered several weeks prior to this visit. You will be contacted with arrangements. 3. Resume anticoagulation as per your home dose. Please continue the Lovenox a prescribed above until your INR is 2.0-3.0 and then you may discontinue. 4. Standard post ablation wound care instructions (see below): DISCHARGE INSTRUCTIONS FOLLOWING YOUR ABLATION Catheter Insertion Area Care - You may take a shower if you wish the morning after the procedure. Wash the area with soap and water. - Look for signs of infection over the next several days. - A little spot of blood at the catheter insertion area is not unusual. A bruise or a small lump under the skin is normal; they generally disappear in three or four days. In some cases you may develop a larger bruise that may appear to extend somewhat down your thigh; this is normal and will resolve, generally within 1-2 weeks. - Expect some mild tenderness over the area where the catheter was inserted. This should improve during the 24 to 48nhours after the procedure. - Take Tylenol if needed and contact your doctor if the discomfort worsens. Avoid higher-dose ibuprofen (greater than 400mg twice daily) due to increased bleeding risk while on blood thinners (does not include aspirin). Problems to Watch For If there is bright red blood flowing from the catheter insertion area 1. STOP what you are doing and lie down. 2. Hold pressure steadily on the area for fifteen minutes. 3. Call for help. 4. If the bleeding does not stop in fifteen minutes, call 911. 5. If there is rapid swelling with a ???black and blue?? color at the catheter insertion area, there may be bleeding inside. Call your doctor if there is any increase in size. Check the insertion site for the next few days at home. Signs of infection are: 1. Redness 2. Swelling 3. Yellow, white, green or brown, foul smelling drainage 4. Increased soreness 5. If you think there is an infection, take your temperature. Then call your doctor. The limb on the side where you had the catheter inserted should look and feel normal in its color, sensation and temperature. If your leg becomes cool, pale, blue or changing color with numbness and tingling, contact your doctor. If you feel faint or dizzy, lie down with your feet elevated. Have someone call the doctor. If you are alert, drink fluids. Activity - Do not bend over, strain or lift heavy objects for twenty four hours after the procedure. - Do not participate in active sports for forty eight hours. You may engage in sexual activity after forty eight hours. Avoid heavy lifting (greater than 10 pounds) for one week following your procedure. - The doctor will tell you when you can return to work. If you do not perform heavy physical labor,most people can return to work in a few days. Additional discharge instructions: Pt advised to be vigilant for any of the following clinical findings (or anything else out of the ordinary): ?? Bleeding, pain, or swelling at any sheath/catheter insertion site. Sometimes this may develop even days after discharge, and there may then be a need to examine this and alter the anticoagulation medications. It is good to be up and around after the ablation procedure, but heavy lifting and straing should be avoided for the first 3-5 days. ?? Chest discomfort. Inflammation in the form of pericarditis may result in chest pain, which is not uncommon after an ablation procedure for atrial fibrillation. It often may be position-dependent, or will be exacerbated by ventilatory movement. If the patient experiences chest discomfort, it should be medically evaluated to ascertain the significance, and to assess for more serious alternative considerations requiring urgent intervention. If it otherwise is pericarditis, it commonly responds well to anti-inflammatory medication. ?? Atrial dysrhythmias (flutter, fibrillation, tachycardia). Post-procedure atrial dysrhythmias on the basis of temporary inflammation are not uncommon, and are not necessarily indicative of an ineffective procedure... if the dysrhythmia is due to inflammtion, the dysrhythmias likely will cease as the inflammation resolves. The first 1-2 months are the most likely time during which this matter isrelevant. If the patient experiences dysrhythmias, the Cardiac Electrtophysiology Service should becontacted. ?? Side effects of any new medications initiated at the [facility]. The patient should be aware and informed of any significant potential side effects that may be incurred as a result of being on new medication... ?? Sudden weakness, sensory loss, altered behavior or speech. This might be a consequence of a cerbrovascular event (stroke or TIA). This requires urgent and immediate medical attention. ?? Fever or sweats, significant malaise. Possibly a consequence of infection. This requires that the Cardiac Electrophysiology Service be contacted, or otherwise an urgent medical assessment should be obtained. ?? Shortness of breath, increased exertional intolerance. A variety of pulmonary or cardiac processes could be responsible for this. This requires that the Cardiac Electrophysiology Service be contacted, or otherwise an urgent medical assessment should be obtained. ?? Difficulty swallowing, or pain with swallowing. While remote, there nonetheless is a ablation procedural risk of injury to the esophagus; if these symptoms emerge, immediate medical evaluation is urged (with no oral intake pending medical evaluation). ?? This is not an exhaustive list. If the patient experiences anything out of the ordinary post-procedure, he/she is encouraged to contact his/her physician or the Cardiac Electrophysiology Service. General Instructions None Future Appointments Provider Department Dept Phone 01/30/2015 1:15 PM Ignacia Watts APRN Pain Management [phone] Joint Appt NURSE VISIT, PAIN CLIN[facility] Pain Management [phone] Discharge References/Attachments None documented in this encounter Discharge Instructions * Patient Instructions* Gabby Zaldivar APRN - 01/13/2015 8:53 AM EDT 1. Medications as prescribed. Use ice packs as often as you'd like over the access sites for discomfort. 2. Follow up with Dr. Alicia in 1 month. You will have a surveillance monitor (ZIO patch) ordered several weeks prior to this visit. You will be contacted with arrangements. 3. Resume anticoagulation as per your home dose. Please continue the Lovenox a prescribed above until your INR is 2.0-3.0 and then you may discontinue. 4. Standard post ablation wound care instructions (see below): DISCHARGE INSTRUCTIONS FOLLOWING YOUR ABLATION Catheter Insertion Area Care - You may take a shower if you wish the morning after the procedure. Wash the area with soap and water. - Look for signs of infection over the next several days. - A little spot of blood at the catheter insertion area is not unusual. A bruise or a small lump under the skin is normal; they generally disappear in three or four days. In some cases you may develop a larger bruise that may appear to extend somewhat down your thigh; this is normal and will resolve, generally within 1-2 weeks. - Expect some mild tenderness over the area where the catheter was inserted. This should improve during the 24 to 48nhours after the procedure. - Take Tylenol if needed and contact your doctor if the discomfort worsens. Avoid higher-dose ibuprofen (greater than 400mg twice daily) due to increased bleeding risk while on blood thinners (does not include aspirin). Problems to Watch For If there is bright red blood flowing from the catheter insertion area 1. STOP what you are doing and lie down. 2. Hold pressure steadily on the area for fifteen minutes. 3. Call for help. 4. If the bleeding does not stop in fifteen minutes, call 911. 5. If there is rapid swelling with a ???black and blue?? color at the catheter insertion area, there may be bleeding inside. Call your doctor if there is any increase in size. Check the insertion site for the next few days at home. Signs of infection are: 1. Redness 2. Swelling 3. Yellow, white, green or brown, foul smelling drainage 4. Increased soreness 5. If you think there is an infection, take your temperature. Then call your doctor. The limb on the side where you had the catheter inserted should look and feel normal in its color, sensation and temperature. If your leg becomes cool, pale, blue or changing color with numbness and tingling, contact your doctor. If you feel faint or dizzy, lie down with your feet elevated. Have someone call the doctor. If you are alert, drink fluids. Activity - Do not bend over, strain or lift heavy objects for twenty four hours after the procedure. - Do not participate in active sports for forty eight hours. You may engage in sexual activity after forty eight hours. Avoid heavy lifting (greater than 10 pounds) for one week following your procedure. - The doctor will tell you when you can return to work. If you do not perform heavy physical labor,most people can return to work in a few days. Additional discharge instructions: Pt advised to be vigilant for any of the following clinical findings (or anything else out of the ordinary): ?? Bleeding, pain, or swelling at any sheath/catheter insertion site. Sometimes this may develop even days after discharge, and there may then be a need to examine this and alter the anticoagulation medications. It is good to be up and around after the ablation procedure, but heavy lifting and straing should be avoided for the first 3-5 days. ?? Chest discomfort. Inflammation in the form of pericarditis may result in chest pain, which is not uncommon after an ablation procedure for atrial fibrillation. It often may be position-dependent, or will be exacerbated by ventilatory movement. If the patient experiences chest discomfort, it should be medically evaluated to ascertain the significance, and to assess for more serious alternative considerations requiring urgent intervention. If it otherwise is pericarditis, it commonly responds well to anti-inflammatory medication. ?? Atrial dysrhythmias (flutter, fibrillation, tachycardia). Post-procedure atrial dysrhythmias on the basis of temporary inflammation are not uncommon, and are not necessarily indicative of an ineffective procedure... if the dysrhythmia is due to inflammtion, the dysrhythmias likely will cease as the inflammation resolves. The first 1-2 months are the most likely time during which this matter isrelevant. If the patient experiences dysrhythmias, the Cardiac Electrtophysiology Service should becontacted. ?? Side effects of any new medications initiated at the [facility]. The patient should be aware and informed of any significant potential side effects that may be incurred as a result of being on new medication... ?? Sudden weakness, sensory loss, altered behavior or speech. This might be a consequence of a cerbrovascular event (stroke or TIA). This requires urgent and immediate medical attention. ?? Fever or sweats, significant malaise. Possibly a consequence of infection. This requires that the Cardiac Electrophysiology Service be contacted, or otherwise an urgent medical assessment should be obtained. ?? Shortness of breath, increased exertional intolerance. A variety of pulmonary or cardiac processes could be responsible for this. This requires that the Cardiac Electrophysiology Service be contacted, or otherwise an urgent medical assessment should be obtained. ?? Difficulty swallowing, or pain with swallowing. While remote, there nonetheless is a ablation procedural risk of injury to the esophagus; if these symptoms emerge, immediate medical evaluation is urged (with no oral intake pending medical evaluation). ?? This is not an exhaustive list. If the patient experiences anything out of the ordinary post-procedure, he/she is encouraged to contact his/her physician or the Cardiac Electrophysiology Service. documented in this encounter Medications at Time of Discharge Medication Sig Dispensed Refills Start Date End Date oxyCODONE-acetaminophe n (PERCOCET) 10-325 mg TabletIndications:pain Take 1 tablet by mouth every 6 hours as needed for Pain (no more than 4 per day) for up to 28 days. Indications: Pain 112 tablet 0 01/02/2015 01/30/2015 gabapentin (NEURONTIN) 300 mg Capsule 300-300-300 for 3 days, 300-300-600 for 3 days , then 300-300-900 150 capsule 3 12/05/2014 03/25/2015 topiramate (TOPAMAX) 25 mg Tablet Take 50 mg by mouth daily. 03/25/2015 milnacipran (SAVELLA) 50 mg Tablet Take 50 mg by mouth 2 times daily. 07/10/2015 omeprazole (PRILOSEC) 20 mg Capsule, Delayed Release(E.C.) Take 20 mg by mouth nightly. 05/12/2015 calcium carbonate (TUMS) 200 mg calcium (500 mg) Tablet, Chewable Take 2 tablets by mouth daily as needed. 04/29/2021 documented as of this encounter Progress Notes * Tatiana Soto RN - 01/13/2015 9:35 AM EDT Patient Name: Ghada Ervin Patient Age: 24 y.o. Birthdate: 1990 Admit date: 01/12/2015 Attending Physician: Ignacio Alicia MD OFFICE OF CARE MANAGEMENT Yanique Soto RN Pager: [phone] Public Area Attendant Record reviewed and patient discussed with multidisciplinary team. No discharge needs identified atthis time. Public Area Attendant remains available as needed for coordination of care and discharge planning. Plan: CRC will continue to follow for coordination of care and to facilitate discharge planning. * Gabby Zaldivar APRN - 01/13/2015 8:44 AM EDT Cardiac Electrophysiology Progress Note CC: pain Problem List: Patient Active Problem List Diagnosis ??? Encounter for long-term (current) use of other medications ??? SVT (supraventricular tachycardia) ??? ADD (attention deficit disorder) ??? Scoliosis ??? Heart palpitations Overview Note: Echo: normal heart size and function, trivial MR and TR Loop recorder: SVT rate 212 BPM ??? Chronic pain syndrome ??? Fibromyalgia ??? Migraines Brief HPI: 24 y.o. female with a history of SVT, chronic pain syndrome, fibromyalgia, migraines, scoliosis, and ADD admitted for SVT ablation on 01/12/15. Interval History: She underwent the procedure without complications. This morning she complains of neck pain. She remains in sinus rhythm on telemetry without arrhythmias. ROS: Constitutional: - fatigue, - fever, - chills, + pain Respiratory: - shortness of breath, - cough, - apnea, - wheezing Cardiovascular: - chest pain, - palpitations, - unusual rates Neurological: - lightheadedness, - dizziness, - syncope, - weakness Vitals: Last Set of Vitals and range of vitals over past 24 hours: Last value Range last 24 hrs Temperature Temp: 36.6 ??C (97.9 ??F) Temp: [36.1 ??C (97 ??F)-36.8 ??C (98.2 ??F)] Heart Rate Heart Rate: 95 Heart Rate: [69-103] Blood Pressure BP: 103/54 mmHg BP: (103-123)/(51-73) Respiratory Rate Resp: 16 Resp: [0-18] SpO2 SpO2: 99 % SpO2: [97 %-100 %] Physical Exam: General- No acute distress, sitting comfortably in exam room chair HEENT- Head atraumatic, normocephalic Skin- Warm and dry. Access sites are CDI without swelling or drainage. Cardiovascular- S1/S2 regular rate and rhythm. No murmur, rub or gallop Lungs- Clear to auscultation bilaterally Extremities- Pulses equal bilaterally. No edema noted Neuro- A&Ox3 EKG - sinus rhythm Telemetry- sinus rhythm/tachycardia Laboratory (Last 24 Hours): Lab Results Component Value Date WBC 6.4 01/12/2015 HGB 12.7 01/12/2015 HCT 38.1 01/12/2015 PLATELET 250 01/12/2015 Recent Labs 01/12/15 0639 INR 1.0 Lab Results Component Value Date NA 140 01/12/2015 K 4.0 01/12/2015 CL 102 01/12/2015 BUN 18 01/12/2015 CREATININE 0.79 01/12/2015 Procedures: EPS/Ablation 01/12/15: ?? 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 Supraventricular tachycardia - s/p ablation of AVNRT 2. Chronic pain Plan: 1. Continue home medications 2. Ice packs for access sites 3. Continue home medications 4. Follow up with Dr. Alicia in 1 month 5. Discharge home today. GABBY ZALDIVAR APRN 01/13/2015 Pager: [phone] * Giselle Guzman RN - 01/12/2015 2:18 PM EDT Patient Name: Ghada Ervin Patient Age: 24 y.o. Birthdate: 1990 Admit date: 01/12/2015 Attending Physician: Ignacio Alicia MD Pt arrived from PACU alert and oriented x 4, denies chest pain, c/o 7/10 back pain, medication provided. Right IJ and sha femoral sites clean and intact, extremities warm, + pulses HR 73 NSR. Pt tolerating crackers and gingerale, oriented to room and call light, bed alarm activated and family at bedside. * Ivett Landon RN - 01/12/2015 12:58 PM EDT Pt arrived , complaining repeatedly about everything. Constant c/o back pain, long standing. Tx with dilaudid. Repositioned on side for comfort. 1315: Frequent groin checks due to pt being non compliant at times with remaining with legs straight. documented in this encounter H&P Notes * Ignacio Alicia MD - 01/12/2015 6:53 AM EDT Ghada Ervin [id number] 01/12/2015 24 y.o. Cardiology EP History and Physical PCP: APPLE QUIÑONEZ APRN (General) I performed a history and physical exam of the patient Admission Diagnosis: 1 ) Palpitations /SVT Date of Evaluation: 01/12/2015 Date of Admission: 01/12/2015 Problem List: Patient Active Problem List Diagnosis ??? Encounter for long-term (current) use of other medications ??? SVT (supraventricular tachycardia) ??? ADD (attention deficit disorder) ??? Scoliosis ??? Heart palpitations Echo: normal heart size and function, trivial MR and TR Loop recorder: SVT rate 212 BPM ??? Chronic pain syndrome ??? Fibromyalgia ??? Migraines HPI: This 24 y.o. female is admitted with a chief complaint of palpitations / SVT. She was seen in the clinic recently for evaluation (September ) - she continues to have intermittent palpitations, suddenonset consistent with re-entry / AVNRT / ORT. NPO since last night Tubal ligation No infectious symptoms I have reviewed the available records, interviewed and examined the patient. ROS/PMHx/Fam Hx/Soc Hx: Reviewed, see outpatient note. Physical Exam: Vital signs: BP 128/79 mmHg Pulse 79 Temp(Src) 36.1 ??C (97 ??F) (Temporal) Resp 20 Ht 157.5 cm (5' 2.01) Wt 71.759 kg (158 lb 3.2 oz) BMI 28.93 kg/m2 SpO2 97% Physical Exam Constitutional: She is oriented to person, place, and time. She appears well- developed. No distress. Body mass index is 28.93 kg/(m^2). HENT: Mouth/Throat: No oropharyngeal exudate. Eyes: No scleral icterus. Neck: No JVD present. No tracheal deviation present. No thyromegaly present. Cardiovascular: Normal rate. Exam reveals no gallop. No murmur heard. Pulmonary/Chest: Effort normal. No respiratory distress. She has no wheezes. She has no rales. Abdominal: Soft. Neurological: She is oriented to person, place, and time. Skin: Skin is dry. Multiple tatoos Lab (Last 24 Hours): Recent Results (from the past 24 hour(s)) Prothrombin Time Result Value Ref Range PT 13.8 12.0 - 15.0 sec INR 1.0 0.9 - 1.1 BMP w/fasting Glucose Result Value Ref Range Glucose Fasting 89 65 - 99 mg/dL BUN 18 8 - 18 mg/dL Creatinine 0.79 0.70 - 1.20 mg/dL Sodium 140 135 - 145 mmol/L Potassium 4.0 3.5 - 5.0 mmol/L Chloride 102 98 - 107 mmol/L CO2 25 22 - 31 mmol/L Anion Gap 13 5 - 15 mmol/L Calcium 8.9 8.5 - 10.5 mg/dL Estimated GFR >60 >=60 Hemogram Result Value Ref Range WBC 6.4 4.0 - 10.0 x10(3)/mcL RBC 3.98 3.93 - 5.22 x10(6)/mcL Hemoglobin 12.7 11.2 - 15.7 gm/dL Hematocrit 38.1 34.0 - 45.0 % MCV 95.7 (H) 79.0 - 94.0 fL MCH 31.9 26.6 - 32.2 pg MCHC 33.3 32.0 - 36.5 gm/dL Platelets 250 145 - 370 x10(3)/mcL RDWSD 46.5 (H) 35.0 - 46.0 fL RDWCV 13.2 10.9 - 14.4 % MPV 10.8 9.0 - 12.0 fL Differential, Automated Result Value Ref Range Neutrophils % 40.1 % Neutr Abs (ANC) 2.57 1.50 - 6.30 x10(3)/mcL Lymphocytes % 42.1 % Lymphocytes Abs 2.7 1.0 - 3.6 x10(3)/mcL Monocytes % 12.0 % Monocyte Abs 0.8 0.2 - 1.0 x10(3)/mcL Eosinophils % 5.3 % Eosinophils Abs 0.3 0.0 - 0.5 x10(3)/mcL Basophils % 0.3 % Basophils Abs 0.0 0.0 - 0.2 x10(3)/mcL Immature Gran % 0.20 % Ale Gran Abs 0.01 0.00 - 0.05 x10(3)/mcL Assessment: 1. 24 y.o. woman with history of palpitations / SVT - for EPS/ablation - chronic pain, gabapentin, percocet use - so general anethesia 2. Overnight admit post procedure 3. Consent obtained - we discussed risks of procedure again (previously consented in clinic) - including risks of access, bleeding, pericardia effusion, tamponade, CVA etc. Plan: 1. The working diagnosis and plan of management was reviewed with the patient & available family 2. Questions were addressed. The majority of my unit/floor time was spent counseling, and coordinating care for the patient regarding the diagnosis, diagnostic and therapeutic treatment plan. IGNACIO ALICIA MD 01/12/2015 documented in this encounter Miscellaneous Notes * Plan of Care - Giselle Guzman RN - 01/13/2015 10:19 AM EDT Problem: General Plan of Care Goal: Plan of Care Review Outcome: Outcome (s) achieved Date Met: 01/13/15 01/13/15 1018 Coping/Psychosocial Response Interventions Plan of Care Reviewed with patient Plan of Care Review Plan of Care Outcome Status outcome achieved Progress improving OUTCOME EVALUATION NOTE: OUTCOME SUMMARY: Pt is alert and oriented x 4, ambulatory, tolerating regular diet, Right IJ site clean and intact, + tenderness, medication provided, Sha Femoral sites intact, also tender during ambulation, + pulses, no chest pain or dyspnea. AVS provided and reviewed, all questions answered. PLAN MOVING FORWARD: Discharge to home INDIVIDUALIZED FALL PREVENTION: Assistance: prn Supervision: independent Surveillance: Self monitor for signs and symptoms of infection or bleeding of the puncture sites ordevelopment of chest pain or dyspnea CPG GOAL OUTCOME EVALUATION: Goal: Individualization and Mutuality Outcome: Outcome (s) achieved Date Met: 01/13/15 01/13/15 1018 Individualization Patient Specific Goals discharge to home Patient Specific Interventions telemetry, mobilize, pain management, discharge teaching Goal: Fall Prevention-Safe Patient Handling Outcome: Outcome (s) achieved Date Met: 01/13/15 01/12/15 1700 01/13/15 0941 Safety Interventions Safety Precautions/Fall Reduction -- fall reduction program maintained Serra Fall Risk History of Falling -- 0 Secondary Diagnosis -- 15 Ambulatory Aids -- 0 Intravenous Therapy/Heparin/Saline Lock -- 0 Gait/Transferring -- 0 Mental Status -- 0 Score -- 15 OTHER Serra Fall Risk -- Low Musculoskeletal Interventions Activity/Level of Assistance -- up ad tobin;ambulated;independently Positioning HOB up 30 degrees -- Goal: Infection Control Outcome: Outcome (s) achieved Date Met: 01/13/15 01/12/15195101/13/15940 Safety Interventions Isolation Precautions -- standard precautions maintained Infection Prevention environmental surveillance;hydration promoted;nutrition promoted;promote handwashing;rest/sleep promoted -- Coping/Psychosocial Response Interventions Counseling goal setting facilitated;personal strengths integrated;journaling promoted -- Goal: Discharge Needs Assessment Outcome: Outcome (s) achieved Date Met: 01/13/15 01/12/15173601/12/15215601/12/152158 Discharge Needs Assessment Concerns to be Addressed no discharge needs identified -- -- Readmission Within the Last 30 Days no previous admission in last 30 days -- -- Equipment Needed After Discharge none -- -- Current Health Anticipated Changes Related to Illness none -- -- Self-Care Equipment Currently Used at Home -- none -- Living Environment Transportation Available -- -- car;family or friend will provide * Plan of Care - Edith Roman RN - 01/13/2015 5:17 AM EDT Problem: General Plan of Care Goal: Plan of Care Review Outcome: Ongoing (Interventions Implemented as Appropriate) 01/13/15 0516 Coping/Psychosocial Response Interventions Plan of Care Reviewed with patient Plan of Care Review Plan of Care Outcome Status ongoing (interventions implemented as appropriate) Progress improving Goal: Individualization and Mutuality Outcome: Ongoing (Interventions Implemented as Appropriate) 01/12/15173601/12/152155 Individualization Patient Specific Goals decrease pain, mobilize, void -- Patient Specific Interventions telemetry, pain management, assist with mobility, neurovascular checks -- Mutuality/Individual Preferences What anxieties, fears or concerns do you have about your health or care? -- i feel like the MD's have not told me anything about what to expect What questions do you have about your health or care? -- need good pain control, can they decrease the time between my pain medication What information would help us give you more personalized care? -- I have had a lot of medical issues Goal: Fall Prevention-Safe Patient Handling Outcome: Ongoing (Interventions Implemented as Appropriate) 01/12/15 1700 01/12/15195101/12/152051 Safety Interventions Safety Precautions/Fall Reduction -- fall reduction program maintained;lighting adjusted for task/safety;nonskid shoes/slippers when out of bed -- Serra Fall Risk History of Falling -- 0 -- Secondary Diagnosis -- 15 -- Ambulatory Aids -- 0 -- Intravenous Therapy/Heparin/Saline Lock -- 20 -- Gait/Transferring -- 0 -- Mental Status -- 0 -- Score -- 35 -- OTHER Serra Fall Risk -- Med -- Musculoskeletal Interventions Activity/Level of Assistance -- -- ambulated;up in earl Positioning HOB up 30 degrees -- -- Goal: Infection Control Outcome: Ongoing (Interventions Implemented as Appropriate) 01/12/151951 Safety Interventions Isolation Precautions standard precautions maintained Infection Prevention environmental surveillance;hydration promoted;nutrition promoted;promote handwashing;rest/sleep promoted Coping/Psychosocial Response Interventions Counseling goal setting facilitated;personal strengths integrated;journaling promoted Goal: Discharge Needs Assessment Outcome: Ongoing (Interventions Implemented as Appropriate) 01/12/15173601/12/15215601/12/152158 Discharge Needs Assessment Concerns to be Addressed no discharge needs identified -- -- Readmission Within the Last 30 Days no previous admission in last 30 days -- -- Equipment Needed After Discharge none -- -- Current Health Anticipated Changes Related to Illness none -- -- Self-Care Equipment Currently Used at Home -- none -- Living Environment Transportation Available -- -- car;family or friend will provide Comments: OUTCOME EVALUATION NOTE: OUTCOME SUMMARY: Ghada Ervin did ok overnight, vss with complaints of pain in right neck, back, hips, with deep inspiration. Pain medication given as ordered with minimal effect, requesting increase in pain medication when discharged. Denies chest pain. Dressings to right IJ and bilateral groin sites remained clean dry and intact. Remained on bedside surveillance monitor reading NSR 70's. Ambulating in hallway with steady gait. Tolerating po intake, voiding adequate amounts of clear yellow urine. PLAN MOVING FORWARD: Pain control, discharge to home INDIVIDUALIZED FALL PREVENTION: Assistance: independent Supervision: independent Surveillance: Purposeful rounding, call robert within reach, bed in low position CPG OUTCOME EVALUATION: * Plan of Care - Giselle Guzman RN - 01/12/2015 5:38 PM EDT Problem: General Plan of Care Goal: Plan of Care Review Outcome: Ongoing (Interventions Implemented as Appropriate) 01/12/151736 Coping/Psychosocial Response Interventions Plan of Care Reviewed with patient Plan of Care Review Plan of Care Outcome Status ongoing (interventions implemented as appropriate) Progress improving OUTCOME EVALUATION NOTE: OUTCOME SUMMARY: Pt is alert and oriented x 4, currently sitting up in bed drawing on sketch pad. Her main complaint this afternoon has been right IJ puncture site pain. Assessment of site done by Nicki and ice pack applied. Pt is ambulating with standby assist, spicer removed, no changes of telemetry. PLAN MOVING FORWARD: continue with telemetry monitoring and pain management. Monitor I&O. INDIVIDUALIZED FALL PREVENTION: Assistance: prn Supervision: While oob Surveillance: Telemetry, pulse oximetry, purposeful rounding CPG GOAL OUTCOME EVALUATION: Goal: Individualization and Mutuality Outcome: Ongoing (Interventions Implemented as Appropriate) 01/12/151736 Individualization Patient Specific Goals decrease pain, mobilize, void Patient Specific Interventions telemetry, pain management, assist with mobility, neurovascular checks Goal: Fall Prevention-Safe Patient Handling Outcome: Ongoing (Interventions Implemented as Appropriate) 01/12/15 1404 01/12/15 1700 Safety Interventions Safety Precautions/Fall Reduction bed alarm -- Serra Fall Risk History of Falling 0 -- Secondary Diagnosis 15 -- Ambulatory Aids 0 -- Intravenous Therapy/Heparin/Saline Lock 0 -- Gait/Transferring 0 -- Mental Status 0 -- Score 15 -- OTHER Serra Fall Risk Low -- Musculoskeletal Interventions Activity/Level of Assistance -- up ad tobin;up in earl;with stand by assist Positioning -- HOB up 30 degrees Goal: Infection Control Outcome: Ongoing (Interventions Implemented as Appropriate) 01/12/15 691 Safety Interventions Isolation Precautions standard precautions maintained Infection Prevention environmental surveillance;hydration promoted;nutrition promoted;promote handwashing;rest/sleep promoted Coping/Psychosocial Response Interventions Counseling reassurance provided;emotional support provided Goal: Discharge Needs Assessment Outcome: Ongoing (Interventions Implemented as Appropriate) 01/12/15 1737 Discharge Needs Assessment Concerns to be Addressed no discharge needs identified Readmission Within the Last 30 Days no previous admission in last 30 days Equipment Needed After Discharge none Current Health Anticipated Changes Related to Illness none Self-Care Equipment Currently Used at Home none Living Environment Transportation Available family or friend will provide documented in this encounter Plan of Treatment Upcoming Encounters Date Type Department Care Team (Late st Contact Info) Description 01/24/2024 3:40 PM EDT Office Visit Cardiology at [address] [phone] Rangel Willams MD [facility] [place] [address] documented as of this encounter Procedures Procedure Name Priority Date/Time Associated Diagnosis Comments EKG 12-LEAD Routine 01/13/2015 7:43 AM EDT SVT (supraventricular tachycardia) 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 SCAN 01/13/2015 12:00 AM EDT EKG 12-LEAD Routine 01/12/2015 7:17 AM EDT Heart palpitations BMP W/FASTING GLUCOSE STAT 01/12/2015 6:39 AM EDT HEMOGRAM STAT 01/12/2015 6:39 AM EDT DIFFERENTIAL, AUTOMATED STAT 01/12/2015 6:39 AM EDT PROTHROMBIN TIME STAT 01/12/2015 6:39 AM EDT CBC (WITH DIFF) STAT 01/12/2015 6:39 AM EDT BETA HCG, QUANTITATIVE Routine 01/12/2015 6:39 AM EDT documented in this encounter Results * EKG 12 Lead (01/13/2015 7:43 AM EDT) Ventricular rate 65 BPM MUSE SYSTEM Atrial Rate 65 BPM MUSE SYSTEM P-R Interval 154 ms MUSE SYSTEM QRS Duration 106 ms MUSE SYSTEM Q-T Interval 424 ms MUSE SYSTEM QTC Calculated (Bezet) 440 ms MUSE SYSTEM Calculated P [place] 29 degrees MUSE SYSTEM Calculated R [place] 3 degrees MUSE SYSTEM Calculated T [place] 18 degrees MUSE SYSTEM INTERPRETATION Normal sinus rhythm Incomplete right bundle branch block Nonspecific T wave abnormality Abnormal ECG When compared with ECG of 12-JAN-2015 07:17, No significant change was found Confirmed by Andres Anderson ([id number]) on 01/13/2015 6:09:23 PM MUSE SYSTEM 01/13/2015 7:43 AM EDT 01/13/2015 6:09 PM EDT Ignacio Alicia MD ECG ORDERABLES Performing Organization Address City/[facility] Co de Phone Number MUSE SYSTEM * SCAN DOC: 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 (01/13/2015 12:00 AM EDT) Anatomical Region Laterality Modality Other Scanning Provider MEDIA MGR SCAN EXT O RDR/RSLT * EKG 12 Lead (01/12/2015 7:17 AM EDT) Ventricular rate 63 BPM MUSE SYSTEM Atrial Rate 63 BPM MUSE SYSTEM P-R Interval 150 ms MUSE SYSTEM QRS Duration 104 ms MUSE SYSTEM Q-T Interval 424 ms MUSE SYSTEM QTC Calculated (Bezet) 433 ms MUSE SYSTEM Calculated P [place] 0 degrees MUSE SYSTEM Calculated R [place] 9 degrees MUSE SYSTEM Calculated T [place] 10 degrees MUSE SYSTEM INTERPRETATION Normal sinus rhythm Incomplete right bundle branch block Borderline ECG No previous ECGs available Confirmed by Andres Anderson ([id number]) on 01/12/2015 4:28:07 PM MUSE SYSTEM 01/12/2015 7:17 AM EDT 01/12/2015 4:28 PM EDT Greg Davis MD ECG ORDERABLES Performing Organization Address [facility] Co de Phone Number MUSE SYSTEM * Differential, Automated (01/12/2015 6:39 AM EDT) Neutrophil % 40.1 % CERNER MILLENNIUM Neutrophil Absolute 2.57 1.50 - 6.30 x10(3)/mcL CERNER MILLENNIUM Lymph % 42.1 % CERNER MILLENNIUM Lymphocytes Abs 2.7 1.0 - 3.6 x10(3)/mcL CERNER MILLENNIUM Monocyte % 12.0 % CERNER MILLENNIUM Monocyte Abs 0.8 0.2 - 1.0 x10(3)/mcL CERNER MILLENNIUM Eos % 5.3 % CERNER MILLENNIUM Eosinophils Abs 0.3 0.0 - 0.5 x10(3)/mcL CERNER MILLENNIUM Basophil % 0.3 % CERNER [...] 0.05 x10(3)/mcL CERNER MILLENNIUM Blood specimen (specimen) 01/12/2015 6:39 AM EDT 01/12/2015 6:42 AM EDT Narrative Resulting Agency Comment Spec In Lab Ignacio Alicia MD HEMATOLOGY ORDERABLE S CERNER MILLENNIUM * (ABNORMAL) Hemogram (01/12/2015 6:39 AM EDT) White Blood Cell 6.4 4.0 - 10.0 x10(3)/mc L CERNER MILLENNIUM Red Blood Cell 3.98 3.93 - 5.22 x10(6)/mc L CERNER MILLENNIUM Hemoglobin 12.7 11.2 - 15.7 gm/dL CERNER MILLENNIUM Hematocrit 38.1 34.0 - 45.0 % CERNER MILLENNIUM Mean Cell Volume 95.7(H) 79.0 - 94.0 fL CERNER MILLENNIUM Mean Cell Hemoglobin 31.9 26.6 - 32.2 pg CERNER MILLENNIUM Mean Cell Hemoglobin Concentration 33.3 32.0 - 36.5 gm/dL CERNER MILLENNIUM Platelet 250 145 - 370 x10(3)/mc L CERNER MILLENNIUM RDW Standard Deviation 46.5(H) 35.0 - 46.0 fL CERNER MILLENNIUM RDW coefficient of variation 13.2 10.9 - 14.4 % CERNER MILLENNIUM Mean Platelet Volume 10.8 9.0 - 12.0 fL CERNER MILLENNIUM Blood specimen (specimen) 01/12/2015 6:39 AM EDT 01/12/2015 6:42 AM EDT Narrative Resulting Agency Comment Spec In Lab Ignacio Alicia MD HEMATOLOGY ORDERABLE S [facility] * BMP w/fasting Glucose (01/12/2015 6:39 AM EDT) [facility] Glucose Fasting 89 65 - 99 mg/dL [facility] Comment: ?Fasting* Glucose Interpretive Criteria Normal ?65-99 [...] of Diabetes Mellitus, Position Statement from the [place] [employer]. ??Diabetes Care, Volume 33, Supplement 1, Apr 2009 Blood Urea Nitrogen 18 8 - 18 mg/dL [facility] MILLENNIUM Creatinine 0.79 0.70 - 1.20 mg/dL [facility] MILLENNIUM Comment: Please note that the pediatric reference intervals supplied above were not validated at [facility]. Results from pediatric patients should be interpreted in conjunction to the patient's age, height and muscle mass. Sodium 140 135 - 145 mmol/L [facility] Potassium 4.0 3.5 - 5.0 mmol/L CERNER MILLENNIUM Comment: Please note: ??Patients with WBC >100,000 may have falsely elevated Potassium levels. ??For accurate Potassium quantification in these patients send serum separator tube (gold top) for subsequent determinations. ??Contact the Clinical Chemistry Laboratory if there are any questions. Chloride 102 98 - 107 mmol/L CERNER MILLENNIUM Carbon Dioxide 25 22 - 31 mmol/L CERNER MILLENNIUM Anion Gap 13 5 - 15 mmol/L CERNER MILLENNIUM Calcium [...] the following links into your internet browser. [email or web address] Blood specimen (specimen) 01/12/2015 6:39 AM EDT 01/12/2015 6:43 AM EDT Narrative Resulting Agency Comment Spec In Lab Ignacio Alicia MD CHEMISTRY ORDERABLES [facility] * Prothrombin Time (01/12/2015 6:39 AM EDT) Prothrombin Time 13.8 12.0 - 15.0 sec CERNER MILLENNIUM Comment: Transfusion Committee Guidelines: INR less than 2.0, PTT less than OR equal to 43.5 seconds, or Fibrinogen greater than or equal to 100 mg/dl indicate adequate procoagulant activity for hemostasis in patients without underlying bleeding disorders. International Normalization Ratio 1.0 0.9 - 1.1 CERNER MILLENNIUM Blood specimen (specimen) 01/12/2015 6:39 AM EDT 01/12/2015 6:43 AM EDT Narrative Resulting Agency Comment Spec In Lab Ignacio Alicia MD HEMATOLOGY ORDERABLE S [facility] * Beta HCG, quantitative (01/12/2015 6:39 AM EDT) Beta Human Chorionic Gonadotropin, Quantitative <1 mlU/ML [facility] Comment: REFERENCE RANGES NON- FEMALE: ??Less than 5 mIU/mL POSTMENOPAUSAL FEMALE: ??Less than 8 mIU/mL ? -- FEMALES -- Weeks of ? HCG range ??(mIU/mL) ? 3 weeks ? 5.8 - 71.2 ? 4 weeks ? 9.5 - 750 ? 5 weeks ? 217 - 7,138 ? 6 weeks ? 158 - 31,795 ? 7 weeks ? 3,697 - 163,563 ? 8 weeks ? 32,065 - 149,571 ? 9 weeks ? 63,803 - 151,410 ?10 weeks ? 46,509 - 186,977 ?12 weeks ? 27,832 - 210,612 ?14 weeks ? 13,950 - 62,530 ?15 weeks ? 12,039 - 70,971 ?16 weeks ? 9,040 - 56,451 ?17 weeks ? 8,175 - 43,868 ?18 weeks ? 8,330 - 36,176 Blood specimen (specimen) 01/12/2015 6:39 AM EDT 01/12/2015 6:43 AM EDT Narrative Resulting Agency Comment Spec In Lab Ignacio Alicia MD CHEMISTRY ORDERABLES QPNOEJ ZKZRENNNMO documented in this encounter Visit Diagnoses Diagnosis Heart palpitations Palpitations SVT (supraventricular tachycardia) Other specified cardiac dysrhythmias SVT (supraventricular tachycardia) Other specified cardiac dysrhythmias Heart palpitations Palpitations documented in this encounter Administered Medications Inactive Administered Medications - up to 3 most recent administrations Medication Order MAR Action Action Date Dose Rate Site BUpivacaine (PF) (MARCAINE) 0.5 % (5 mg/mL) injection 150 mg 150 mg (30 mL), Subcutaneous, ONCE, 1 dose, On Mon01/12/15 at 0945, EP (Intra-Procedure), Routine Given 01/12/2015 8:30 AM EDT 150 mg ejaocjuesw-whvlqjdrwbbyo-wrhaqrn e (FIORICET, ESGIC) per tablet 1 tablet 1 tablet, Oral, ONCE, 1 dose, On Mon01/12/15 at 1415, Maximum dose of acetaminophen is 4000 mg from all sources in 24 hours., STAT Given 01/12/2015 7:51 PM EDT 1 tablet esomeprazole (NexIUM) capsule 40 mg 40 mg, Oral, NIGHTLY, First dose on Mon01/12/15 at 2100, Until Discontinued, Therapeutic interchange for omeprazole (PriLOSEC) capsule 20 mg, Routine Given 01/12/2015 9:17 PM EDT 40 mg gabapentin (NEURONTIN) capsule 300 mg 300 mg, Oral, 3 TIMES DAILY, First dose on Mon01/12/15 at 1500, Until Discontinued, 300 mmg in the morning and afternoon and 900mg for the night time dose., Routine Given 01/13/2015 9:14 AM EDT 300 mg Given 01/12/2015 9:17 PM EDT 300 mg Given 01/12/2015 3:11 PM EDT 300 mg gabapentin (NEURONTIN) capsule 900 mg 900 mg, Oral, ONCE, 1 dose, On Mon01/12/15 at 2145, Routine Given 01/12/2015 10:41 PM EDT 600 mg HYDROmorphone (DILAUDID) syringe 0.2-0.4 mg 0.2-0.4 mg, Intravenous, EVERY 5 MIN PRN, Pain, Starting on Mon01/12/15 at 1220, Until Mon01/12/15 at 1349, For moderate pain (4-6) give: 0.2 mg every 5 minute prn For severe pain (7-10) give: 0.4 mg every 5 minutes prn Maximum dose: 4 mg per hour Hold for respiratory rate less than 10 per minute., PACU Recovery Given 01/12/2015 1:08 PM EDT 0.4 mg Given 01/12/2015 12:52 PM EDT 0.4 mg Given 01/12/2015 12:44 PM EDT 0.4 mg lidocaine (XYLOCAINE) 20 mg/mL (2 %) injection 400 mg 400 mg (20 mL), Subcutaneous, ONCE, 1 dose, On Mon01/12/15 at 0945, EP (Intra-Procedure), Routine Given 01/12/2015 8:30 AM EDT 400 mg nitrofurantoin (macrocrystal-monohydrate) (MACROBID) capsule 100 mg 100 mg, Oral, NIGHTLY, First dose on Mon01/12/15 at 2100, Until Discontinued, Routine, Indication for (Active or Suspected): Prophylaxis Given 01/12/2015 9:18 PM EDT 100 mg oxyCODONE-acetaminophen (PERCOCET) 5-325 mg per tablet 2 tablet 2 tablet, Oral, ONCE, 1 dose, On Mon01/12/15 at 1415, Maximum dose of acetaminophen is 4000 mg from all sources in 24 hours., STAT Given 01/12/2015 2:04 PM EDT 2 tablets oxyCODONE-acetaminophen (PERCOCET) 5-325 mg per tablet 2 tablet 2 tablet, Oral, EVERY 4 HOURS PRN, Starting on Mon01/12/15 at 1935, Until Mon01/13/15 at 1310, Pain, Maximum dose of acetaminophen is 4000 mg from all sources in 24 hours., STAT Given 01/13/2015 9:41 AM EDT 2 tablets Given 01/13/2015 5:37 AM EDT 2 tablets Given 01/13/2015 12:06 AM EDT 2 tablets topiramate (TOPAMAX) tablet 50 mg 50 mg, Oral, DAILY, First dose on Mon01/12/15 at 1500, Until Discontinued, Routine Given 01/13/2015 9:14 AM EDT 50 mg topiramate (TOPAMAX) tablet 50 mg 50 mg, Oral, NIGHTLY, First dose on Mon01/12/15 at 2300, Until Discontinued, Routine Given 01/12/2015 10:4 2 PM EDT 50 mg traZODone (DESYREL) tablet 100 mg 100 mg, Oral, NIGHTLY PRN, Starting on Mon01/12/15 at 1535, Until Mon01/13/15 at 1310, Sleep, Routine Given 01/12/2015 9:18 PM EDT 100 mg documented in this encounter Active and Recently Administered Medications Times are shown in EDT. Scheduled Medication Order 01/11/2015 01/12/2015 01/13/2015 BUpivacaine (PF) (MARCAINE) 0.5 % (5 mg/mL) injection 150 mg (COMPLETED) 150 mg (30 mL), Subcutaneous, ONCE, 1 dose, On Mon01/12/15 at 0945, EP (Intra-Procedure), Routine 0830 (Given - Provider: Ivett Oates RN) zmarlyniwo-uznzuqefxqoso-gf ffeine (FIORICET, ESGIC) per tablet 1 tablet (COMPLETED) 1 tablet, Oral, ONCE, 1 dose, On Mon01/12/15 at 1415, Maximum dose of acetaminophen is 4000 mg from all sources in 24 hours., STAT 1415 (Hold - Provider: Giselle Guzman RN - Reason: Patient/family refused - Comment: pt does not need at this time)195 (Given - Provider: Edith Roman RN) esomeprazole (NexIUM) capsule 40 mg (CANCELED) 40 mg, Oral, NIGHTLY, First dose on Mon01/12/15 at 2100, Until Discontinued, Therapeutic interchange for omeprazole (PriLOSEC) capsule 20 mg, Routine 162 (JUN Hold - Provider: Admin Adt - Reason: Transfer to a Procedural area)162 ([facility] Unhold - Provider: Admin Adt)2116 (Given - Provider: Edith Roman RN) gabapentin (NEURONTIN) capsule 300 mg (CANCELED) 300 mg, Oral, 3 TIMES DAILY, First dose on Mon01/12/15 at 1500, Until Discontinued, 300 mmg in the morning and afternoon and 900mg for the night time dose., Routine 1511 (Given - Provider: Giselle Guzman RN)1627 ([facility] Hold - Provider: Admin Adt - Reason: Transfer to a Procedural area)162 ([facility] Unhold - Provider: Admin Adt)2116 (Given - Provider: Edith Roman RN) 913 (Given - Provider: Giselle Guzman RN) gabapentin (NEURONTIN) capsule 900 mg (COMPLETED) 900 mg, Oral, ONCE, 1 dose, On Mon01/12/15 at 2145, Routine 2241 (Given - Provider: Edith Roman RN - Comment: pt already took 300mg at HS) lidocaine (XYLOCAINE) 20 mg/mL (2 %) injection 400 mg (COMPLETED) 400 mg (20 mL), Subcutaneous, ONCE, 1 dose, On 9/21/15 at 0945, EP (Intra-Procedure), Routine 0830 (Given - Provider: Ivett Oates RN) nitrofurantoin (macrocrystal-monohydrate) (MACROBID) capsule 100 mg (CANCELED) 100 mg, Oral, NIGHTLY, First dose on Mon01/12/15 at 2100, Until Discontinued, Routine, Indication for (Active or Suspected): Prophylaxis 1627 ([facility] Hold - Provider: Admin Adt - Reason: Transfer to a Procedural area)162 ([facility] Unhold - Provider: Admin Adt)2118 (Given - Provider: Edith Rmoan, ROBERT) oxyCODONE-acetaminophen (PERCOCET) 5-325 mg per tablet 2 tablet (COMPLETED) 2 tablet, Oral, ONCE, 1 dose, On Mon01/12/15 at 1415, Maximum dose of acetaminophen is 4000 mg from all sources in 24 hours., STAT 1404 (Given - Provider: Giselle Guzman RN) topiramate (TOPAMAX) tablet 50 mg (CANCELED) 50 mg, Oral, DAILY, First dose on Mon01/12/15 at 1500, Until Discontinued, Routine 1500 (Not Given - Provider: Giselle Guzman RN - Reason: Patient/family refused)1627 ([facility] Hold - Provider: Admin Adt - Reason: Transfer to a Procedural area)162 ([facility] Unhold - Provider: Admin Adt) 0914 (Given - Provider: Giselle Guzman RN) topiramate (TOPAMAX) tablet 50 mg (CANCELED) 50 mg, Oral, NIGHTLY, First dose on Mon01/12/15 at 2300, Until Discontinued, Routine 1627 ([facility] Hold - Provider: Admin Adt - Reason: Transfer to a Procedural area)1628 ([facility] Unhold - Provider: Admin Adt)2242 (Given - Provider: Edith Roman, ROBERT) PRN Medication Order 01/11/2015 01/12/2015 01/13/2015 HYDROmorphone (DILAUDID) syringe 0.2-0.4 mg (CANCELED) 0.2-0.4 mg, Intravenous, EVERY 5 MIN PRN, Pain, Starting on Mon01/12/15 at 1220, Until Mon01/12/15 at 1349, For moderate pain (4-6) give: 0.2 mg every 5 minute prn For severe pain (7-10) give: 0.4 mg every 5 minutes prn Maximum dose: 4 mg per hour Hold for respiratory rate less than 10 per minute., PACU Recovery 1244 (Given - Provider: Ivett Landon, RN)1252 (Given - Provider: Ivett Landon, RN)1308 (Given - Provider: Ivett Landon, RN) oxyCODONE-acetaminophen (PERCOCET) 5-325 mg per tablet 2 tablet (CANCELED) 2 tablet, Oral, EVERY 4 HOURS PRN, Starting on Mon01/12/15 at 1935, Until Mon01/13/15 at 1310, Pain, Maximum dose of acetaminophen is 4000 mg from all sources in 24 hours., STAT 1952 (Given - Provider: Edith Roman RN) 0006 (Given - Provider: Edith Roman, ROBERT)0537 (Given - Provider: Edith Roman, ROBERT)0941 (Given - Provider: Giselle Guzman RN) traZODone (DESYREL) tablet 100 mg (CANCELED) 100 mg, Oral, NIGHTLY PRN, Starting on Mon01/12/15 at 1535, Until Mon01/13/15 at 1310, Sleep, Routine 1627 ([facility] Hold - Provider: Admin Adt - Reason: Transfer to a Procedural area)1628 ([facility] Unhold - Provider: Admin Adt)2118 (Given - Provider: Edith Rmoan RN) documented in this encounter Care Teams 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
--- OUTSIDE RECORDS SUMMARY | 2023-12-27 19:49 | XMS_ITS | Encounter Summary ---
Author Organization [facility] [place] [address] Care Team Providers Care Supervisor Housecleaner Name Role Phone Apple Quiñonez APRN Primary Care Provider [phone] Reason for Referral * Diagnostic Test (Routine) - Specialty Diagnoses / Procedures Referred By Contac t Referred To Contact Radiology Diagnoses Lumbar pain with radiation down both legs Chronic low back pain Scoliosis Procedures MRI Lumbar Spine Without Contrast (GENERIC) Ignacia Watts APRN [facility] [place] [address] [place] [address] Referral ID Status Reason Start Date Expiration Date Visits Requested Visits Authorized [id number] Specialty Service Requested 01/21/2016 04/20/2016 1 1 Reason for Visit * Reason Comments Pain Management Back Pain Bilateral Hip Pain Encounter Details Date Type Department Care Team (Late st Contact Info) Description 09/18/2014 10:45 AM EDT Office Visit [place] [address] Kavon Contreras MD [facility] [place] [address] Lumbar pain with radiation down both legs; Chronic low back pain; Scoliosis Discharge Disposition: Home Social History Tobacco Use Types Packs/Day Years Used Date Smoking Tobacco: Every Day Cigarettes 0.5 8 Smokeless Tobacco: Never Tobacco Cessation:Ready to Q uit: Yes; Counseling Given: Yes Comments:has a few cigarettes a day Comments Yes Sex and Gender Information Value Date Recorded Sex Assigned at Not on file Gender Identity Not on file Sexual Orientation Not on file documented as of this encounter Last Filed Vital Signs Vital Sign Reading Time Taken Comments Blood Pressure 129/82 09/18/2014 10:52 AM EDT Pulse 116 09/18/2014 10:52 AM EDT Temperature - - Respiratory Rate - - Oxygen Saturation 96% 09/18/2014 10:52 AM EDT Inhaled Oxygen Concentration - - Weight 68.5 kg (151 lb) 09/18/2014 10:52 AM EDT Height 157.5 cm (5' 2) 09/18/2014 10:52 AM EDT Body Mass Index 27.62 09/18/2014 10:52 AM EDT documented in this encounter Progress Notes * Kavon Contreras MD - 09/18/2014 12:02 PM EDT This is a combined MD and CVT TECH visit. I personally have examined the patient and had a very thorough discussion about the risks and benefits of senior care opioid therapy. She has signed and agreed to an opioid agreement. I have personally reviewed the risks, including the risks of addiction, constipation, sedation, sexual dysfunction, osteoporosis, increased risk of fractures, increased risk of certain types of infections, and increased risk of certain types of tumors. She has objective evidence of a painful disorder. On physical examination, she has quite a dramatic scoliosis present, despite her Tejeda sonya issues. She does have worse pain with hyperextension and hyperalgesia in the lumbosacral region bilaterally on physical examination. She has had, what sounds like, lumbosacral radiofrequency two or three years ago without relief and her pain at that time was identical. She has had hip bursa injections, which have not been useful. She does smoke marijuana occasionally, not around her children. I have advised her that it is permissible for her to continue to do this. She does get good pain relief from this. We are obtaining an MRI of her lumbosacral spine, because she has not had one in approximately four years and she has very severe pain and obvious evidence of deformity on physical exam and there may be some surgical options. She has not had epidural steroid injections. We have discussed this in detail and the plan is as follows: We are going to treat her with Percocet tablets 10/325, 10 mg four times a day. We will be seeing her on a monthly basis. The goals of treatment are for her to quit smoking cigarettes and she will quit smoking cigarettes when we see her back in a month. She is going to be walking daily with her three children and within three months, she is going to be working 20 hours a week, up from her approximately 7 or 8 hours a week right now. When medical marijuana becomes available in the state of [place], we are going to transition her from the opioid to medical cannabis and she is agreeable to all of this at this time. She seems like a very nice young woman. She does have objective evidence of a painful disorder. Hopefully, we will be able to make a difference. * Ignacia Watts APRN - 09/18/2014 10:46 AM EDT [facility] [place] [address] Phone: PAIN MANAGEMENT CONSULTATION DATE OF VISIT 09/18/2014 Patient Ghada Ervin 1990 REFERRING PHYSICIAN Apple Quiñonez APRn PRIMARY CARE PHYSICIAN APPLE QUIÑONEZ APRN REASON FOR CONSULTATION Chronic Pain: consideration for Safe Opioid Prescribing Program CHIEF COMPLAINT Ghada Ervin is a 23 y.o. female with chronic back pain, who is seen in consultation at the request of Apple Quiñonez APRN for evaluation, management, and consideration for the Safe Opioid Prescribing Program.The history is obtained from the patient, and I have reviewed extensive medical records provided by the referring physician and located in the electronic medical record to fill in gaps in the patient's recollection of events, treatments and outcomes. Per patient I'm here because my primary care provider isn't comfortable ordering opioid pain medicine for me. I used to go to the pain center at [facility] until the provider left there. Ms. Ervin underwent a posterior spinal fusion, T3 through T12 with the utilization of Sofamor [employer] Legacy titanium instrumentation, SSEP and MEP spinal cord monitoring, allograft bone graft on 06/19/[address] Shari Graves at [facility] for progressive scoliosis. This relieved her upper back pain, but over the past few years, she has developed worsening low back to bilateral hip pain. She has beenoffered surgical fusion for lower spine but she is fearful this will severely limit her mobility and function. HPI: PAIN ASSESSMENT Location: lower back and hips radiates both legs Onset: worse since stopped pain meds for (October/2013) Precipitating Event: scoliosis Quality:aching, cramped up, stabbing Variation/pattern: constant Does the pain radiate? If so where? Progresses to both hips, down legs into feet if she sits/standsfor prolonged time Any weakness, numbness or tingling?: bilateral leg weakness when in pain Saddle Anesthesia? No Severity today: 8 Average Past Week:6 Best: 6 Worst: 10 Alleviating Factors:heating pad at night, stretching, leaning over gives temporary relief Aggravating factors: walking more than 10 minutes or standing for brief time; sitting, twisting, bending, with prior use of morphine, she could do all of these activities without limitations History of cancer?: no Other: CURRENT /PAST TREATMENTS: Percent Pain Relief Injections: yes; RFA > 2years ago No relief Surgery: no Physical Therapy: not recently Acupuncture:No Chiropractic:No Trigger Point:No Meditation:No CBT:No Imagery:No Yoga/Movement:No Marijuana:Yes Uses now since not on pain meds- helps her pain Other: MEDICATIONS TRIED Percent Pain Relief Acetominophen:No NSAID:Yes meloxicam 7.5 mg daily Not helpful Opioids:Yes MS ER 30 mg a.m.; 15 mg afternoon with oxycodone tid prn breakthrough - stopped due to Very helpful Antidepressants:Yes Savella Anticonvulsants:Yes gabapentin currently 100 mg tid- was on 400-400-800 prior to Topicals:No Other: :No PAST MEDICAL HISTORY Past Medical History Diagnosis Date ??? Heart palpitations 01/15/2014 ??? Chronic pain syndrome 01/15/2014 ??? Fibromyalgia 01/15/2014 ??? Migraines 01/15/2014 PAST SURGICAL HISTORY Past Surgical History Procedure Laterality Date ??? Created by interface ARTHRODESIS, POSTERIOR , SPINAL DEFORMITY,7-12 SEGMENTS / LEG/T10/T11/T12/T3/T4/T5/T6/T7/T8/T9 Procedure Date: 06/19/2007 ??? Created by interface AUTOGRAFT FOR SPINE,LOCAL,SAME INCISION Procedure Date: 06/19/2007 ??? Created by interface Entered not Verified Procedure Date: 04/22/2010 ??? Created by interface POSTERIOR SEGMENTAL INSTRUMENTATION; 7-12 VERTEBRAL SEG. / T10/T11/T12/T3/T4/T5/T6/T7/T8/T9 Procedure Date: 06/19/2007 10/04 and 05/08 Bunionectomy 08/2009 OBSTETRIC HISTORY 3 children via MEDICATIONS Current Outpatient Prescriptions on File Prior to Visit Medication Sig Dispense Refill ??? PREDNISONE ORAL Take 1-6 tablets by mouth daily. Taper for shoulder injury ??? milnacipran (SAVELLA) 50 mg Tablet Take 100 mg by mouth 2 times daily. ??? topiramate (TOPAMAX) 25 mg Tablet Take 25 mg by mouth 2 times daily. ??? meloxicam (MOBIC) 7.5 mg Tablet Take 7.5 mg by mouth daily. ??? diclofenac (VOLTAREN) 25 mg Tablet, Delayed Release (E.C.) Take 25 mg by mouth daily. ??? gabapentin (NEURONTIN) 100 mg Capsule Take 100 mg by mouth 3 times daily. ??? traMADol (ULTRAM) 50 mg Tablet Take 50 mg by mouth every 6 hours as needed for Pain. ??? omeprazole (PRILOSEC) 20 mg Capsule, Delayed Release(E.C.) Take 20 mg by mouth daily. ??? metoprolol succinate (TOPROL-XL) 50 mg Tablet Sustained Release 24 hr Take 1 tablet by mouth daily. 90 tablet 3 ??? promethazine (PHENERGAN) 12.5 mg Tablet Take 12.5 mg by mouth every 6 hours as needed. ??? Mometasone 50 mcg/actuation [place], Non-Aerosol 1 spray by Nasal route as needed. ??? Bsh-Xoitbiyyly-Ssvdfcfjku-Caf 71-539-79-30 mg Capsule Take 1 tablet by mouth every 4 hours as needed. ??? Vit-Iron Fumarate-FA () 28-0.8 mg Tablet Take 1 tablet by mouth daily. ??? acetaminophen (TYLENOL) 325 mg Tablet Take 650 mg by mouth every 4 hours as needed. ??? calcium carbonate (TUMS) 200 mg calcium (500 mg) Tablet, Chewable Take 2 tablets by mouth daily. No current facility-administered medications on file prior to visit. ADVERSE DRUG REACTIONS Allergies as of 09/18/2014 - Review Complete 08/11/2014 Allergen Reaction Noted ??? Bee pollen 01/15/2014 ??? Meperidine hcl FAMILY HISTORY Family History Problem Relation Age [...] Disease Paternal Grandmother ??? Hypertension Paternal Grandfather SOCIAL HISTORY Single, recently broke up with [employer]. Lives with her 3 children. Mother supportive. Father suddenly of [place] in 06/08. 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 Family History of Substance Abuse Alcohol [1] 1 3 Illegal Drugs [2] 2 3 Prescription Drugs ] 4 4 2. Personal History of Substance Abuse Alcohol [] 3 3 Illegal Drugs [] 4 4 Prescription Drugs [] 5 5 3. Age (Renzo box if 16-45) [1] 1 1 4. History of Preadolescent Sexual Abuse [0] 3 0 5. Psychological Disease [1] 2 2 (Attention Deficit Disorder, Obsessive Compulsive Disorder, Bipolar, Schizophrenia) Depression [0] 1 1 TOTAL 5 Total Score Risk Category: 0-3 = Low Risk 4-7 = Moderate Risk > 8 = High Risk REVIEW OF SYSTEMS Constitutional Denies fevers, chills, loss of weight is no longer breast feeding HEENT Denies new hearing problems, vision problems or dental problems. Cardiovascular Denies chest pain, palpitations Respiratory Denies cough, SOB, wheezing, asthma, snoring at night, sleep apnea GI Denies N/V, heartburn, diarrhea, constipation, liver problems, jaundice Denies kidney problems, infections, blood in urine, or kidney stones, incontinence Musculoskeletal See HPI Neurologic Denies seizures, convulsions, stroke, shock, frequent headaches, dizziness or passing out Hematologic Denies prolonged bleeding, easy bruising, lymph gland swelling Dermatologic Denies rashes, or other skin problems Sleep Doesn't sleep well, tosses and turns due to pain Mood History of bipolar- not on meds now- recognizes and manages her emotions. Sees psychiatrist Dr. Grecia Jones at [facility] in [facility] monthly and sees a mental health counselor weekly. Went through difficult time when her dad suddenly in May but is doing better now. Denies suicidal thoughts. Anxious since she is off her pain medicines PHYSICAL EXAMINATION Body mass index is 27.61 kg/(m^2). Filed Vitals: 09/18/14 1052 BP: 129/82 Pulse: 116 Height: 157.5 cm (5' 2) Weight: 68.493 kg (151 lb) SpO2: 96% General Well groomed, good eye contact, relaxed, cooperative,normal speech Eyes No scleral icterus, pupils midline/symmetric ENT Hearing grossly intact. Lungs CTA bilaterally Cardiovascular Reg RR without murmur, Skin No rash, asymmetric hair loss, bruises, swelling Musckuloskeletal Palpation/ Range of Motion/Facet Loading maneuvers Toe walking is normal; heel walking is normal Well healed thoracic spine scar noted Thoracic scoliosis noted Trunk flexion, extension, lateral extension, rotation are all limited due to pain Pain with palpation over the spinous process, posterior iliac spine bilaterally in lower lumbar region Limited rib to hip space noted bilaterally Neuro Motor Strength Segment Muscle Action Right Left C5 Detoid Shoulder abduction 5/5 5/5 C5 Biceps Elbow flexion 5/5 5/5 C6 Extensor carpi radialis Wrist extension 5/5 5/5 C7 Triceps Elbow extension 5/5 5/5 C8, T1 Hand intrinsics Grasp 5/5 5/5 L2-5, S 1 Gluteus medius Hip Adduction 5/5 5/5 L4-5, S1 Gluteus medius Hip Abduction 5/5 5/5 L2 Iliopsoas Hip flexion 5/5 5/5 L3 Quadriceps Knee extension 5/5 5/5 L4 Tibialis anterior Ankle Dorsiflexion 5/5 5/5 L5 Extensor hallucis Great toe extension 5/5 5/5 S1 Gastrocnemius Ankle Plantar flexion 5/5 5/5 Reflexes: Segment Tendon Right Left C5 Biceps 2+ 2+ C6 Brachioradialis 2+ 2+ C7 Triceps 2+ 2+ L3-4 Patella 2+ 2+ S1 Ankle 2+ 2+ Lower Babinski downgoing downgoing Clonus Ankle neg Ankle neg Sensory Exam L1-5 reduced light touch sensation, location: notes it feels different lateral thighs reduced light touch sensation, location: notes it feels different lateral thighs LABORATORY STUDIES None RADIOGRAPHIC STUDIES Reviewed MRI lumbar spine from 2012 images scanned in from outside hospital with Dr. Contreras. The [place] and [place] Prescription Monitoring Program was checked and no concerns were identified. IMPRESSION Ghada Ervin is a 23 y.o. female post fusion, insertion of rods for scoliosis in 2007 who presents with progressively worse lumbar pain with radiculopathy. Her pain was well managed with opioidsuntil she became last year. Pain now interferes with her ability to function- walk, drive,stand. She is at moderate risk on the opioid risk scale. She sees mental health counselor and psychiatrist on a regular basis. PLAN/RECOMMENDATIONS The patient was also seen by Dr. Contreras. Please see his note regarding the plan/recommendations from today's visit. In summary, we discussed the following with Ghada: 1. Repeat MRI of L/S spine locally. 2. Discussed the risk of using opioids as part of her treatment plan. She is at moderate risk for addiction. Discussed the risks and potential side effects of opioid medications, that include but arenot limited to, addiction, dependence, tolerance, osteoporosis, constipation, overdose, and sexual dysfunction. Discussed that this would be a trial of using opioid medication and she would need to set and reach goals in the next six months in order to continue opioid treatment. We also reviewed the opioid contract including random urine screens, no early refills, etc. 3. Goals we agreed upon: 1. Quit smoking by 1 month 2. Work 20 hours per week by 3 months 3. Walk around the [place] her children 3 times per week by 2 months 4. Prescribed percocet 10/325 1 tablet 4 times per day for 28 days 5. Will obtain urine drug screen today 6. Patient signed opioid drug screen 7. Monitor tests 8. Continue psychological support 9. If pain not improved with percocet, would increase gabapentin 10. Consider medical marijuana when available Ghada Ervin had the opportunity to ask questions and indicated that all her questions were answered to her satisfaction. Ignacia Watts DNP, ANP-CS, VENDOR MANAGEMENT ASSOCIATE, Nurse Practitioner [facility] documented in this encounter Miscellaneous Notes * Addendum Note - Kavon Contreras MD - 09/19/2014 8:30 AM EDTAddended by: KAVON CONTRERAS on: 09/19/2014 08:30 AM Modules accepted: Orders documented in this encounter Plan of Treatment Upcoming Encounters Date Type Department Care Team (Late st Contact Info) Description 01/24/2024 3:40 PM EDT Office Visit Cardiology at [address] [phone] Rangel Willams MD [facility] [place] [address] documented as of this encounter Procedures Procedure Name Priority Date/Time Associated Diagnosis Comments AMPHETAMINE, URINE, CONFIRMATION Routine 09/18/2014 12:10 PM EDT DRUG SCREEN WITH CONFIRMATION, URINE (SEND OUT) Routine 09/18/2014 12:10 PM EDT Chronic low back pain THC (MARIJUANA), URINE, CONFIRMATION Routine 09/18/2014 12:10 PM EDT BARBITURATE, URINE, CONFIRMATION Routine 09/18/2014 12:10 PM EDT documented in this encounter Results * MRI Lumbar Spine Without Contrast (GENERIC) (02/27/2015 4:10 PM EST) Anatomical Region Laterality Modality L-spine Magnetic Resonan ce Impressions 02/27/2015 8:07 PM EST IMPRESSION: Facet arthropathy of the lumbar spine. This combines with scoliotic curvature to produce moderate neural foramen narrowing on the left at L4-5 and L5-S1. No other evidence of nerve root impingement. Comment: The following findings are so common in people without low back pain that while we report there presence, they must be interpreted with caution and in context of the clinical situation (Reference- Jarvik et al, Spine 2001). Findings: (Prevalence in patients without low back pain), disc degeneration (decreased T2 signal, height loss, bulge) (91%), disc T2-signal loss (83%), disc height loss (56%), disc bulge (64%), disc protrusion (32%), annular fissure (38%). Narrative 02/27/2015 8:07 PM EST EXAMINATION: MRI LUMBAR SPINE WITHOUT CONTRAST CLINICAL HISTORY: lumbar pain with radiculopathy TECHNIQUE: MRI of the lumbar spine was obtained without use of intravenous contrast. COMPARISON: MRI lumbar spine of 04/12/2007. FINDINGS: There is levoconvex scoliotic curvature of [...] on the left at L4-5 and L5-S1 Procedure Note Ayaan Castro MD - 02/27/2015 EXAMINATION: MRI LUMBAR SPINE WITHOUT CONTRAST CLINICAL HISTORY: lumbar pain with radiculopathy TECHNIQUE: MRI of the lumbar spine was obtained without use ofintravenous contrast. COMPARISON: MRI lumbar spine of 04/12/2007. FINDINGS: There is levoconvex scoliotic curvature of the lumbar spine rina component of the marked thoracic scoliosis. Vertebral height and marrowsignal are normal. Intervertebral discs are of normal appearance. The conusmedullaris is of normal contour and signal characteristics terminating at the levelof L2. The nerve roots of the cauda equina show no abnormality. There is mild hypertrophic facet arthropathy at each level in the lumbar spine mostmarked at L5-S1. The facet arthropathy combines with the scoliotic curvature toproduce moderate neural foramen narrowing on the left at L4-5 and L5-S1 IMPRESSION IMPRESSION: Facet arthropathy of the lumbar spine. This combines with scolioticcurvature to produce moderate neural foramen narrowing on the left at L4-5 and L5-S1.No other evidence of nerve root impingement. Comment: The following findings are so common in people without low backpain that while we report there presence, they must be interpreted with cautionand in context of the clinical situation (Reference- Abivik et al, [id number]). Findings: (Prevalence in patients without low back pain), discdegeneration (decreased T2 signal, height loss, bulge) (91%), disc T2-signal loss(83%), disc height loss (56%), disc bulge (64%), disc protrusion (32%), annularfissure (38%). Kavon Contreras MD [facility] ORDER[place] S * Amphetamine, Urine Confirmation (09/18/2014 12:10 PM EDT) Pathologist [facility] U Amphet Conf Test ?Result ? Flag ??Unit ?? RefValue Drug of Abuse, Amphetamine Conf, U ??GC/MS ? Negative ?Confirmation - Amphetamine ??Amphetamine ? SEE COMMENTS ? ng/mL ??Cutoff: <50 Unable to report a level for this analyte due to unknown interference. ??Methamphetamin e ? Negative ? ng/mL ??Cutoff: <50 ??MDMA (Ecstasy) ?Negative ? ng/mL ??Cutoff: <50 ??MDA (Ecstasy ?Negative ? ng/mL ??Cutoff: <50 ?Metabolite) ??Phentermine ? Negative ? ng/mL ??Cutoff: <500 ---ADDITIONAL INFORMATION----- This report is intended for use in clinical monitoring and management of patients. It is not intended for use in employment-relat ed drug testing. Test Performed by: [facility] [address], [place] [address] [place]ie Worker: Marla Banks, Ph.D. [facility] Urine specimen (specimen) 09/18/2014 12:10 PM EDT 09/18/2014 1:22 PM EDT Narrative Resulting Agency Comment Spec In Lab Kavon Contreras MD LAB SEND OUT D[facility]TE [place] Organization Address City/State/ZIP Co de Phone Number [facility] * THC (Marijuana), Urine Confirmation (09/18/2014 12:10 PM EDT) U THC Conf Test ?Result ? Flag ??Unit ?? RefValue Drug of Abuse, THC Conf, U ??GC/MS ? Positive ?Confirmation - THC ??THC Carboxylic ?443 ?ng/mL ??Cutoff:<3 ?Acid ---ADDITIONAL INFORMATION----- This report is intended for use in clinical monitoring and management of patients. It is not intended for use in employment-relat ed drug testing. Test Performed by: [place] [address] [place] Worker: Marla Banks, Ph.D. THERES[facility] HAWTHORNE Urine specimen (specimen) 09/18/2014 12:10 PM EDT 09/18/2014 1:22 PM EDT Narrative Resulting Agency Comment Spec In Lab Kavon Contreras MD LAB SEND OUT [facility] [place] [facility] * Barbiturate, Urine Confirmation (09/18/2014 12:10 PM EDT) U Stacey Conf Test ?Result ? Flag ??Unit ?? RefValue Drug of Abuse, Barbiturate Conf, U ??GC/MS ? Positive ?Confirmation - Barbiturate ??Amobarbital ? Negative ? ng/mL ??Cutoff: <100 ??Butalbital ?983 ?ng/mL ??Cutoff: <100 ??Pentobarbital ? Negative ? ng/mL ??Cutoff: <100 ??Phenobarbital ? Negative ? ng/mL ??Cutoff: <100 ??Secobarbital ?Negative ? ng/mL ??Cutoff: <100 ---ADDITIONAL INFORMATION----- This report is intended for use in clinical monitoring and management of patients. It is not intended for use in employment-relat ed drug testing. Test Performed by: [place] [address] [place] Worker: Marla Banks, Ph.D. THERES[facility] HAWTHORNE Urine specimen (specimen) 09/18/2014 12:10 PM EDT 09/18/2014 1:22 PM EDT Narrative Resulting Agency Comment Spec In Lab Kavon Contreras MD LAB SEND OUT [facility] [place] [facility]ES[facility]WTHOR[facility] * Drug Screen with Confirmation, Urine (09/18/2014 12:10 PM EDT) U CAM w/Conf Test ?Result ? Flag ??Unit ?? RefValue --------- Pain Clinic Drug Screen, U ??Amphetamines ?Positive ? ng/mL ??Cutoff: 500 ??Barbiturates ?Positive ? ng/mL ??Cutoff: 200 ??Benzodiazepines ? Negative ? ng/mL ??Cutoff: 200 ??Cocaine Metabolite ??Negative ? ng/mL ??Cutoff: 150 ??Methadone ? Negative ? ng/mL ??Cutoff: 300 ??Opiates ? Negative ? ng/mL ??Cutoff: 300 ??Phencyclidine ? Negative ? ng/mL ??Cutoff: 25 ??Tetrahydrocanna bin ??Positive ? ng/mL ??Cutoff: 50 ?ols ??Ethanol ? Negative ? mg/dL ??Cutoff: 10 ??Comment Specimen unusually concentrated. --ADDITIONAL INFORMATION------ Results from this test are presumptive; for positive results refer to the corresponding drug confirmation for the definitive result. This report is intended for use in clinical monitoring and management of patients. It is not intended for use in employment-relate d drug testing. ??Confirmation - ?Positive ?Opiates Discrepancy noted between immunoassay result and LC-MS/MS result. The LC-MS/MS result is the definitive result. ??Codeine ? Negative ? ng/mL ??<100 ??Hydrocodone ? Negative ? ng/mL ??<100 ??Hydromorphone ? Negative ? ng/mL ??<100 ??Morphine ?Negative ? ng/mL ??<100 ??Oxycodone ? Negative ? ng/mL ??<100 ??Oxymorphone ? 236 ?ng/mL ??<100 --ADDITIONAL INFORMATION------ This report is intended for use in clinical monitoring and management of patients. It is not intended for use in employment-relate d drug testing. Test Performed by: [place] [address] Dobie Worker: Marla Banks, Ph.D. THERESA NAVAFAVIOLA Urine specimen (specimen) 09/18/2014 12:10 PM EDT 09/18/2014 1:22 PM EDT Narrative Resulting Agency Comment Spec In Lab Kavon Contreras MD URINE ORDERABLES Performing Organization Address City/State/[facility] Co de Phone Number THERESA HAWTHORNE documented in this encounter Visit Diagnoses Diagnosis Lumbar pain with radiation down both legs Lumbago Chronic low back pain Lumbago Scoliosis Scoliosis (and kyphoscoliosis), idiopathic Chronic pain syndrome Scoliosis Scoliosis (and kyphoscoliosis), idiopathic Cervicalgia Radiculopathy of cervical region Brachial neuritis or radiculitis nos Lumbar pain with radiation down both legs Lumbago Chronic low back pain Lumbago documented in this encounter Care Teams Supervisor Housecleaner Relationship Specialty Start Date End Date Apple Quiñonez APRN PCP - General 01/14/14 06/19/16 documented as of this encounter
--- OUTSIDE RECORDS SUMMARY | 2023-12-27 19:49 | XMS_ITS | Encounter Summary ---
Author Organization [facility] [place] [address] Care Team Providers Care Gymnastic Teacher Name Role Phone Apple Walters KIM Primary Care Provider +1- [phone] Encounter Details Date Type Department Care Team (Late st Contact Info) Description 01/12/2015 7:41 AM EDT Anesthesia [place] [address] Laz Victoria MD [facility] [place] [address] Debra Pantoja CRNA [facility] [place] [address] Anesthesia Record Procedure Summary Procedure Name Responsible Anesthesiologist Anesthesia Start Time Anesthesia Stop Time ELECTROPHYSIOLOGY PROCEDURE Laz Victoria MD 01/12/15 0741 01/12/15 1239 Events Date Time Event Comment 01/12/2015 0708 0741 Start 0750 AN Verify 0750 An Start Data 0756 An Induction 0757 An Intubation 0803 Anesthesia Ready 0855 Break/Relief In STANLEY Augustin CANDACE CHEEMA CRNA 0915 Break/Relief Out 0946 Quick Note Run of SVT 1216 Quick Note Awaiting lines to be pulled by EP staff. 1223 Extubation/LMA Out Criteria met. Suctioned and extubated to . VSS 1226 Quick Note Awaiting bed 1230 an stop data 1239 Stop In PACU 6. Repo rt to ROBERT Root. VSS 1239 Handoff Anesthesia care was transferred after review of the patient's history, current anesthetic/surgical status and plan, according to the Provider Handoff Checklist. Meds Name Total Midazolam 2 mg fentaNYL 250 mcg IV Lidocaine 50 mg Propofol 200 mg Rocuronium 50 mg Ondansetron 8 mg Dexamethasone 8 mg Propofol INF 445.88 mg DOBUTamine INF 37.7 mg Heparin 4,000 Units HYDROmorphone 0.8 mg Lactated Ringers 1,250 mL Sodium Chloride 0.9% 600 mL * Agents Name O2 Air Sevoflurane (et) Isoflurane (et) * Blood No blood administrations on file. Lines, Drains, and Airways Type Details Placement Removal (RETIRED) Peripheral IV Line - Single Lumen 01/12/15; median cubital vein left (antecubital fossa); 18 gauge; 01/13/15; 1007 01/12/15 0000 by Ivett Landon RN 01/13/15 1007 by Giselle Guzman RN ETT Mask Ventilation: Ea sy (1); ETT Type: Cuffed, Oral; ETT Size: 7 mm; Mac Blade: 3; Notes: Asleep, Pre-O2, Stylette; Attempts: 1; Laryngoscopy Grade: 1; ETT Placement Verified By: Auscultation, Capnometry, Visual; Secured at Teeth: 21 cm; Inserted by: Debra Pantoja CRNA; Removal Date: 01/12/15; Removal Time: 1223 01/12/15 0757 by Debra Pantoja CRNA 01/12/15 1223 by Debra Pantoja CRNA Urethral Catheter 01/12/15; 0800; Need for intraoperative urine output monitoring; indwelling double lumen catheter; 100% silicone; 16; inserted at this facility; 1; 10; none; drainage bag to dependent drainage; urethral catheter removed, tubing intact, per protocol/policy; 01/12/15; 1704 01/12/15 0800 by Sarah Flaherty RN 01/12/15 1704 by Giselle Guzman RN (RETIRED) Peripheral IV Line - Single Lumen 01/12/15; 0804; median cubital vein right (antecubital fossa); 18 gauge; 01/12/15; 1822 01/12/15 0804 by Debra Pantoja, RIBBON TIER 01/12/15 1822 by Giselle Guzman RN LDA Cath/EP Sheath 01/12/15; 0840; 10 F rench (Fr); Left; Femoral 01/12/15 0840 by Ivett Oates RN 01/12/15 1227 by Sarah Flaherty RN LDA Cath/EP Sheath 01/12/15; 0845; 6.5 Faroese (Fr); Right; Femoral 01/12/15 0845 by Ivett Oates RN 01/12/15 1227 by Sarah Flaherty RN LDA Cath/EP Sheath 01/12/15; 0845; 8 Fr ench (Fr); Right; Femoral 01/12/15 0845 by Ivett Oates RN 01/12/15 1227 by Sarah Flaherty RN LDA Cath/EP Sheath 01/12/15; 0942; 6.5 Faroese (Fr); Right; Internal jugular 01/12/15 0942 by Ivett Oates RN 01/12/15 1227 by Sarah Flaherty RN documented in this encounter Social History [...] OR Notes * Anesthesia Postprocedure Evaluation - Laz Victoria MD - 01/12/2015 2:37 PM EDT Patient: Ghada Ervin Procedure(s) Performed: Procedure(s): ELECTROPHYSIOLOGY PROCEDURE Actual Anesthetic: No value filed. Patient location: PACU Post-op pain: Adequate analgesia Post-op nausea: no nausea or vomiting Last Vitals: Filed Vitals: 01/12/15 1359 BP: 107/59 Pulse: 69 Temp: 36.8 ??C (98.2 ??F) Resp: 18 Post-op cardiovascular and respiratory status: is stable Level of consciousness: awake, alert and oriented Complications: no apparent complications and tolerated the procedure well Fluid Status: normal Issues with back pain in PACU. On Gabapentin and percocet, seen in pain clinic. Improved over time with some fentanyl * Anesthesia Preprocedure Evaluation - Laz Victoria MD - 01/12/2015 7:05 AM EDT Pre-Anesthesia Evaluation for: Ghada Ervin a 24 y.o. female. Procedure(s): ELECTROPHYSIOLOGY PROCEDURE Patient Active Problem List Diagnosis ??? Encounter [...] History Substance Use Topics ??? Smoking status: Former Smoker -- 0.25 packs/day for 8 years Types: Cigarettes Quit date: 11/09/2014 ??? Smokeless tobacco: Never Used Comment: has a few cigarettes a day ??? Alcohol Use: Not on file History Drug Use Not on file Allergies Allergen Reactions ??? Bee Pollen Anaphylaxis ??? Meperidine Hcl Anaphylaxis and Other (See Comments) flushing, respiratory trouble Medications: MAR and/or home medications have been reviewed. Physical Exam: Filed Vitals: 01/12/15 0645 BP: 128/79 Pulse: 79 Temp: 36.1 ??C (97 ??F) Resp: 20 Body mass index is 28.93 kg/(m^2). Height: 157.5 cm (5' 2.01) Weight - Scale: 71.759 kg (158 lb 3.2 oz) Anesthesia Physical Exam Anesthesia Plan: ASA 2 general, with a(n) intravenous induction 24 y o with chronic pain syndrome (headaches, back pain, fibromyalgia) and SVT for ablation. GA/ETT/arterial line Informed Consent: Anesthetic plan and risks discussed with patient. Plan discussed with RIBBON TIER. Misc. Assessment: documented in this encounter Miscellaneous Notes * Addendum Note - Laz Victoria MD - 01/21/2015 7:03 AM EDT Addendum created 01/21/15 07 by Laz Victoria MD Modules edited: Anesthesia Attestations Anesthesia Attestations: Attestation Deleted documented in this encounter Plan of Treatment Upcoming Encounters Date Type Department Care Team (Late st Contact Info) Description 01/24/2024 3:40 PM EDT Office Visit Cardiology at [address] [id number] Rangel Willams MD [facility] [place] [address] documented as of this encounter Visit Diagnoses Not on filedocumented in this encounter Administered Medications Inactive Administered Medications - up to 3 most recent administrations Medication Order MAR Action Action Date Dose Rate Site dexamethasone (DECADRON) injection PRN, Starting on Mon01/12/15 at 0805, Until Mon01/12/15 at 1239, Anesthesia Intra-op, Routine Given 01/12/2015 8:05 AM EDT 8 mg DOBUTamine 2,000 mcg/mL (standard ADULT & Keshia greater than 20kg) CONTINUOUS PRN, Starting on Mon01/12/15 at 1000, Until Mon01/12/15 at 1239, Anesthesia Intra-op Rate/Dose Change 01/12/2015 11:42 AM EDT 10 mcg/kg/min 21.5 mL/hr Restarted 01/12/2015 11:02 AM EDT 5 mcg/kg/min 10.8 mL/hr Rate/Dose Change 01/12/2015 10:11 AM EDT 10 mcg/kg/min 21. 5 mL/hr fentaNYL 50 mcg/mL multi-dose injection PRN, Starting on Mon01/12/15 at 0748, Until Mon01/12/15 at 1239, Pain, Anesthesia Intra-op, Routine Given 01/12/2015 10:23 AM EDT 50 mcg Given 01/12/2015 10:16 AM EDT 50 mcg Given 01/12/2015 8:34 AM EDT 50 mcg heparin (porcine) injection PRN, Starting on Mon01/12/15 at 1035, Until Mon01/12/15 at 1239, Anesthesia Intra-op, Routine Given 01/12/2015 10:35 AM EDT 4,000 Units HYDROmorphone (DILAUDID) injection PRN, Starting on Mon01/12/15 at 1106, Until Mon01/12/15 at 1239, Pain, Anesthesia Intra-op, Routine Given 01/12/2015 12:38 PM EDT 0.4 mg Given 01/12/2015 11:06 AM EDT 0.4 mg lactated ringers infusion CONTINUOUS PRN, Starting on Mon01/12/15 at 0741, Until Mon01/12/15 at 1239, Anesthesia Intra-op New Bag 01/12/2015 10:00 AM EDT New Bag 01/12/2015 7:41 AM EDT lidocaine (PF) (XYLOCAINE) 100 mg/5 mL (2 %) injection PRN, Starting on Mon01/12/15 at 0756, Until Mon01/12/15 at 1239, Anesthesia Intra-op, Routine Given 01/12/2015 7:56 AM EDT 50 mg midazolam (PF) (VERSED) 1 mg/mL multi-dose injection PRN, Starting on Mon01/12/15 at 0748, Until Mon01/12/15 at 1239, Sleep, Anesthesia Intra-op, Routine Given 01/12/2015 7:48 AM EDT 2 mg ondansetron (ZOFRAN) injection PRN, Starting on Mon01/12/15 at 1212, Until Mon01/12/15 at 1239, Nausea, Anesthesia Intra-op, Routine Given 01/12/2015 12:12 PM EDT 8 mg propofol (DIPRIVAN) 10 mg/mL bolus injection (Anesthesia) PRN, Starting on Mon01/12/15 at 0756, Until Mon01/12/15 at 1239, Anesthesia Intra-op Given 01/12/2015 7:56 AM EDT 200 mg propofol (DIPRIVAN) infusion CONTINUOUS PRN, Starting on Mon01/12/15 at 0816, Until Mon01/12/15 at 1239, Anesthesia Intra-op, Routine New Bag 01/12/2015 8:16 AM EDT 30 mcg/kg/min 12.9 mL/hr rocuronium (ZEMURON) multi-dose injection PRN, Starting on Mon01/12/15 at 0756, Until Mon01/12/15 at 1239, Anesthesia Intra-op, Routine Given 01/12/2015 7:56 AM EDT 50 mg sodium chloride 0.9% infusion CONTINUOUS PRN, Starting on Mon01/12/15 at 0804, Until Mon01/12/15 at 1239, Anesthesia Intra-op New Bag 01/12/2015 8:04 AM EDT documented in this encounter Care Teams Gymnastic Teacher Relationship Specialty Start Date End Date Apple Walters APRN PCP - General 01/14/14 06/19/16 documented as of this encounter
--- OUTSIDE RECORDS SUMMARY | 2023-12-27 19:49 | XMS_ITS | Encounter Summary ---
Author Organization [facility] [place] [address] Care Team Providers Care Hole Filler Name Role Phone Apple Walters APRN Primary Care Provider +1- [phone] Encounter Details Date Type Department Care Team (Late st Contact Info) Description 11/11/2014 12:45 PM EDT [place] [address] Ignacia Watts COAL INSPECTOR [facility] [place] [address] Chronic pain syndrome; Scoliosis; Encounter for long-term (current) use of other medications Discharge Disposition: Home Social History Tobacco Use Types Packs/Day Years Used Date Smoking Tobacco: Former Cigarettes 0.3 8 0 11/09/2006 - 11/09/2014 Smokeless Tobacco: Never Comments:has a few cigarette s a day Comments Yes Sex and Gender Information Value Date Recorded Sex Assigned at Not on file Gender Identity Not on file Sexual Orientation Not on file documented as of this encounter Last Filed Vital Signs Vital Sign Reading Time Taken Comments Blood Pressure 125/77 11/11/2014 1:20 PM EDT Pulse 89 11/11/2014 1:20 PM EDT Temperature - - Respiratory Rate - - Oxygen Saturation 100% 11/11/2014 1:20 PM EDT Inhaled Oxygen Concentration - - Weight 70.3 kg (155 lb) 11/11/2014 1:20 PM EDT Height 157.5 cm (5' 2) 11/11/2014 1:20 PM EDT Body Mass Index 28.35 11/11/2014 1:20 PM EDT documented in this encounter Progress Notes * Ignacia Watts APRN - 11/11/2014 1:24 PM EDT PAIN CLINIC FOLLOW-UP Ghada Ervin [id number] Reason for follow-up: Medication management Chronic Opioid Therapy Pain Management Plan signed on 09/17/14 UDT: 10/14/14 findings reflect reported history on 10/14 The [place] and [place] Prescription Monitoring Program were checked and no issues were found. Chief Complaint: Follow up chronic back pain History of Present Illness/Interval History: Ms. Ervin is a 24 y.o.-year-old female, who has a history of scoliosis, s/p Tejeda rods 2007, she continues to have low back pain. [facility]. We agreed to prescribe opioids as long as she is meeting goals and not experiencing side effects. On 10/24/14, she developed severe back pain and was seen in [place] ED; diagnosed with UTI, treatedwith IV dilaudid and cipro- sent home on cipro oral; was told by the physician to take extra of herpercocet if needed for pain. She brought a copy of the discharge summary from the ED today as proofof the visit. She ran out of the percocet yesterday. She states she was unclear about the expectations of the pain contract with us. Ghada is working with her therapist, Stephanie Banegas APRN on her anxiety and fibromyalgia. Shehas stopped her aderall as she would like to come off as many meds as possible. She is on a low dose of gabapentin now, but was on a higher dose in the past and found it very helpful for the neuropathic pain. Goals: 1. Quit smoking: Stopped as of 11/09/14 2. Walking with children: is walking and playing with them in yard daily 3. Dancing; went out with her mother and boyfriend dancing on 8/18/15 4. 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, has applications in for other job opportunities Current treatment: (40% relief with current regimen) Percocet 10/325 no more than 4 per day Physical therapy: ongoing for generalized pain- has been dry needling recently which seems to help Pain Location: mid lumbar and thoracic spine, and b/l hips Pain Quality is described as constant, achy, constant shooting in the hips Pain Exacerbating/relieving activities: worse with driving, bending, lifting, better with heat and meds Rated as 6/10 on average, 10/10 at worst, at best 4/10 since starting the opioid meds, she never used to get to this low of a pain score Depression: sees a therapist Anxiety: therapist is working on getting this under control Sleep: poor, chooses not to use her sleep aid due to young children under 5 Smoking: quit Alcohol: none Functional Status: her goal is to have a 20 hr per week job in two months, she is also walking daily with her childern Review of Systems Constitutional Denies weight loss or gain, fevers, chills, nightsweats Cardiovascular Denies chest pain, + palpitations.(is scheduled for cardiac ablation) Respiratory Denies cough, SOB, PADRON. + mild rhinitis; no other URI symptoms GI/ Denies constipation, diarrhea, nausea, vomiting, GERD, incontinence Musculoskeletal No weakness, falling Neurologic Denies fainting spells, seizures, memory loss. Denies numbness or paresthesia Hormonal LMP 11/05- had tubal ligation in 06/08 Physical Exam Blood pressure 125/77, pulse 89, height 157.5 cm (5' 2), weight 70.308 kg (155 lb), SpO2 100 %. Constitutional Ghadaafia Ervin is seen today dressed appropriately for the weather with good hygiene. No pain behaviors. Psychiatric He has good eye contact and a full range of affect. Lungs Unlabored respirations; lungs CTA Cardiac RRR without murmur Musculoskeletal Moves easily in the exam room with a non antalgic gait. No ambulatory aids used. Assessment 24 year old with chronic back pain related to scoliosis and Tejeda sonya placement and fibromyalgia on percocet 10/325 4 times per day. She is meeting her functional goals and not experiencing any side effects from therapy. Recommendations/Plan 1. We reviewed the pain contract and I gave her a copy to read at home. I explained that in the future if she goes to ED, she should call us prior to using more than prescribed of her pain medicine. I explained if this happens again, we will stop prescribing opioids for her. 2. We discussed chronic pain in general- she understands that it's a comprehensive program life-long program of medications, exercise, body-mind interventions, and stretching. 3. Congratulated her on quitting smoking and meeting her activity goals. Encouraged her to continueimproving her activity level. 4. Follow up 28 days with me. Renewed percocet # 112 5. Explained that I cannot increase her gabapentin since it is prescribed by Caitlin Ruff that we would recommend an increased dose for pain management. documented in this encounter Plan of Treatment Upcoming Encounters Date Type Department Care Team (Late st Contact Info) Description 01/24/2024 3:40 PM EDT Office Visit Cardiology at [address] [phone] Rangel Willams MD [facility] [place] [address] documented as of this encounter Visit Diagnoses Diagnosis Chronic pain syndrome Scoliosis Scoliosis (and kyphoscoliosis), idiopathic Encounter for long-term (current) use of other medications documented in this encounter Care Teams Hole Filler Relationship Specialty Start Date End Date Apple Walters APRN PCP - General 01/14/14 06/19/16 documented as of this encounter
--- OUTSIDE RECORDS SUMMARY | 2023-12-27 19:49 | XMS_ITS | Encounter Summary ---
Author Organization [facility] [place] [address] Care Team Providers Care Favor Maker Name Role Phone Quiñonez, Appledee dee Rizzo APRN Primary Care Provider [phone]- [phone] Reason for Visit * Reason Comments Back Pain Bilateral Hip Pain Bilateral Leg Pain Encounter Details Date Type Department Care Team (Late st Contact Info) Description 10/14/2014 2:15 PM EDT [place] [address] Rubi Orozco MD [facility] [place] [address] Chronic pain syndrome; Scoliosis; Encounter for long-term (current) use of other medications Discharge Disposition: Home Social History Tobacco Use Types Packs/Day Years Used Date Smoking Tobacco: Every Day Cigarettes 0.3 8 Smokeless Tobacco: Never Comments:has a few cigarette s a day Comments Yes Sex and Gender Information Value Date Recorded Sex Assigned at Not on file Gender Identity Not on file Sexual Orientation Not on file documented as of this encounter Last Filed Vital Signs Vital Sign Reading Time Taken Comments Blood Pressure 109/60 10/14/2014 2:30 PM EDT Pulse 76 10/14/2014 2:30 PM EDT Temperature - - Respiratory Rate - - Oxygen Saturation 100% 10/14/2014 2:30 PM EDT Inhaled Oxygen Concentration - - Weight 70.3 kg (155 lb) 10/14/2014 2:30 PM EDT Height 157.5 cm (5' 2) 10/14/2014 2:30 PM EDT Body Mass Index 28.35 10/14/2014 2:30 PM EDT documented in this encounter Progress Notes * Luis Enrique Contreras MD - 10/16/2014 9:38 AM EDT I was the attending physician supervising the resident in the above care. For the purposes of billing, the resident provided the care. * Rubi Orozco - 10/14/2014 2:51 PM EDT PAIN CLINIC FOLLOW-UP Ghada Ervin [phone] Reason for follow-up: Medication management Chief Complaint: Low back Identification: Ms. Ervin is a 23 y.o.-year-old female, who has a history of scoliosis, s/p Tejeda rods 2007, she continues to have low back pain. She states that she should have 28 pills left. Her script was filled on 09/18. She did not bring the medication with her. Her last dose of percocet was 11AM this morning. 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 Chronic Opioid Therapy Pain Management Plan signed on UDT: done on 09/18/14 Finding reflect medications we are prescribing. Review of Systems Constitutional Denies weight loss or gain, fevers, chills, nightsweats Cardiovascular Denies chest pain, palpitations. Respiratory Denies cough, SOB, PADRON. GI/ Denies constipation, diarrhea, nausea, vomiting, GERD, incontinence Musculoskeletal No weakness, falling Neurologic Denies fainting spells, seizures, memory loss. Denies numbness or paresthesia Physical Exam Blood pressure 109/60, pulse 76, height 157.5 cm (5' 2), weight 70.308 kg (155 lb), SpO2 100 %. Constitutional Ghada Ervin is seen today dressed appropriately for the weather with good hygiene. No pain behaviors. Psychiatric He has good eye contact and a full range of affect. Lungs Unlabored respirations Musculoskeletal Moves easily in the exam room with a non antalgic gait. No ambulatory aids used. Assessment Encounter Diagnoses Name Primary? Chronic pain syndrome ??? Scoliosis ??? Encounter for long-term (current) use of other medications Recommendations/Plan Ghada Ervin and I reviewed her symptoms and care to date. Ms. Ervin is making progress with her goals. She is looking for work, and has all but quit smoking and promises that she will be finished by them time she returns in 28 days, and she is walking daily with her children. She has 50% pain relief with her regimen and denies any opioid related adverse effects. I have written the following prescription: Orders Placed This Encounter Medications ? oxyCODONE-acetaminophen (PERCOCET) 10-325 mg Tablet Sig: Take 1 tablet by mouth every 6 hours as needed for Pain for up to 28 days. Dispense: 112 tablet Refill: 0 Goal: Decreased pain- Acheiving Increased function- Acheiving Improved mood- Acheiving We have mutually agreed to the following: I discussed the risks and potential side effects of opioid medications, that include but are not limited to, addiction, dependence, tolerance, osteoporosis, constipation, and sexual dysfunction. RUBI OROZCO MD Fellow, Pain Management cc: APPLE QUIÑONEZ APRN None documented in this encounter Plan of Treatment Upcoming Encounters Date Type Department Care Team (Late st Contact Info) Description 01/24/2024 3:40 PM EDT Office Visit Cardiology at [address] [address] Rangel Willams MD [facility] [place] [address] documented as of this encounter Procedures Procedure Name Priority Date/Time Associated Diagnosis Comments AMPHETAMINE, URINE, CONFIRMATION Routine 10/14/2014 2:25 PM EDT DRUG SCREEN WITH CONFIRMATION, URINE (SEND OUT) Routine 10/14/2014 2:25 PM EDT Chronic pain syndrome Scoliosis Encounter for long-term (current) use of other medications THC (MARIJUANA), URINE, CONFIRMATION Routine 10/14/2014 2:25 PM EDT documented in this encounter Results * Amphetamine, Urine Confirmation (10/14/2014 2:25 PM EDT) [facility] U Amphet Conf Test ?Result ?? Flag ??Unit ?? RefValue Drug of Abuse, Amphetamine Conf, U ??GC/MS Confirmation - ?Positive ?Amphetamine ??Amphetamine ? 1199 ? ng/mL ??Cutoff: <50 ??Methamphetamin e ? Negative ? ng/mL ??Cutoff: <50 ??MDMA (Ecstasy) ?Negative ? ng/mL ??Cutoff: <50 ??MDA (Ecstasy ?Negative ? ng/mL ??Cutoff: <50 ?Metabolite) ??Phentermine ? Negative ? ng/mL ??Cutoff: <500 ---ADDITIONAL INFORMATION----- This report is intended for use in clinical monitoring and management of patients. It is not intended for use in employment-relat ed drug testing. Test Performed by: [place] [address] Child Welfare Specialist: Marla Banks, Ph.D. THERESA HAWTHORNE Urine specimen (specimen) 10/14/2014 2:25 PM EDT 10/15/2014 8:43 AM EDT Narrative Resulting Agency Comment Spec In Lab Luis Enrique Contreras MD LAB SEND OUT [facility] THERESA HAWTHORNE * THC (Marijuana), Urine Confirmation (10/14/2014 2:25 PM EDT) U THC Conf Test ?Result ?? Flag ??Unit ?? RefValue Drug of Abuse, THC Conf, U ??GC/MS Confirmation - ?Positive ?THC ??THC Carboxylic Acid ? 107 ?ng/mL ??Cutoff:<3 ---ADDITIONAL INFORMATION----- This report is intended for use in clinical monitoring and management of patients. It is not intended for use in employment-relat ed drug testing. Test Performed by: [facility] [address] [address] Child Welfare Specialist: Marla Banks, Ph.D. THERESA HAWTHORNE Urine specimen (specimen) 10/14/2014 2:25 PM EDT 10/15/2014 8:43 AM EDT Narrative Resulting Agency Comment Spec In Lab Luis Enrique Contreras MD LAB SEND OUT [facility] THERESA HAWTHORNE * Drug Screen with Confirmation, Urine (10/14/2014 2:25 PM EDT) U CAM w/Conf Test ?Result ?? Flag ??Unit ?? RefValue --------- Pain Clinic Drug Screen, U ??Amphetamines ?Positive ? ng/mL ??Cutoff: 500 ??Barbiturates ?Negative ? ng/mL ??Cutoff: 200 ??Benzodiazepines ? Negative ? ng/mL ??Cutoff: 200 ??Cocaine Metabolite ?Negative ? ng/mL ??Cutoff: 150 ??Methadone ? Negative ? ng/mL ??Cutoff: 300 ??Opiates ? Negative ? ng/mL ??Cutoff: 300 ??Phencyclidine ? Negative ? ng/mL ??Cutoff: 25 ??Tetrahydrocanna binols ?? Positive ? ng/mL ??Cutoff: 50 ??Ethanol ? Negative ? mg/dL ??Cutoff: 10 --ADDITIONAL INFORMATION------ Results from this test are presumptive; for positive results refer to the corresponding drug confirmation for the definitive result. This report is intended for use in clinical monitoring and management of patients. It is not intended for use in employment-relate d drug testing. ??Confirmation - Opiates ??Positive Discrepancy noted between immunoassay result and LC-MS/MS result. The LC-MS/MS result is the definitive result. ??Codeine ? Negative ? ng/mL ??<100 ??Hydrocodone ? Negative ? ng/mL ??<100 ??Hydromorphone ? Negative ? ng/mL ??<100 ??Morphine ?Negative ? ng/mL ??<100 ??Oxycodone ? 1220 ? ng/mL ??<100 ??Oxymorphone ? 996 ?ng/mL ??<100 --ADDITIONAL INFORMATION------ This report is intended for use in clinical monitoring and management of patients. It is not intended for use in employment-relate d drug testing. Test Performed by: [facility] [address] [address] Child Welfare Specialist: Marla Banks, Ph.D. THERESA HAWTHORNE Urine specimen (specimen) 10/14/2014 2:25 PM EDT 10/15/2014 8:43 AM EDT Narrative Resulting Agency Comment Spec In Lab Luis Enrique Contreras MD URINE ORDERABLES THERESA HAWTHORNE documented in this encounter Visit Diagnoses Diagnosis Chronic pain syndrome Scoliosis Scoliosis (and kyphoscoliosis), idiopathic Encounter for long-term (current) use of other medications documented in this encounter Care Teams Favor Maker Relationship Specialty Start Date End Date Apple Quiñonez APRN PCP - General 01/14/14 06/19/16 documented as of this encounter
--- OUTSIDE RECORDS SUMMARY | 2023-12-27 19:49 | XMS_ITS | Encounter Summary ---
Author Organization [facility] [place] [address] Care Team Providers Care Salesperson Burial Plots Name Role Phone Apple Walters APRN Primary Care Provider [phone]- [phone] Reason for Visit * Reason Onset Date Comments Results 09/25/2014 Encounter Details Date Type Department Care Team (Late st Contact Info) Description 09/25/2014 Telephone [place] [id number] Ignacia Watts TECHNOLOGY ASSISTANT [facility] [place] [address] Results Social History Tobacco Use Types Packs/Day Years Used Date Smoking Tobacco: Every Day Cigarettes 0.5 8 Smokeless Tobacco: Never Comments:has a few cigarette s a day Comments Yes Sex and Gender Information Value Date Recorded Sex Assigned at Not on file Gender Identity Not on file Sexual Orientation Not on file documented as of this encounter Miscellaneous Notes * Telephone Encounter - Ignacia Watts APRN - 09/25/2014 12:27 PM EDT I called Ghada to discuss the results of her urine test on 09/18/14- it was positive for known prescribed medications, except for the precense of oxymorphone (which she has been off of since her ). She stated that she was in such severe pain that a family member gave her a 5 mg oxycodonetablet. She started crying and said she was afraid to tell us that because it might jeopardize her chances of getting help from us. She apologized and stated she would never do it again and would always be honest with us. I stressed the importance of being honest with us and following the rules setout in the pain contract she signed at her 09/18/14 visit. Ghada has a follow up visit with us on10/14/14 EMELIA Watson, TECHNOLOGY ASSISTANT documented in this encounter Plan of Treatment Upcoming Encounters Date Type Department Care Team (Late st Contact Info) Description 01/24/2024 3:40 PM EDT Office Visit Cardiology at [address] [address] Rangel Willams MD [facility] [place] [address] documented as of this encounter Visit Diagnoses Not on filedocumented in this encounter Care Teams Salesperson Burial Plots Relationship Specialty Start Date End Date Apple Walters APRN PCP - General 01/14/14 06/19/16 documented as of this encounter
--- OUTSIDE RECORDS SUMMARY | 2023-12-27 19:49 | XMS_ITS | Encounter Summary ---
[place] [address] Care Team Providers Care Commercial Sheet Metal Foreman Name Role Phone Apple Walters KIM Primary Care Provider +1- [phone] Encounter Details Date Type Department Care Team (Late st Contact Info) Description 07/09/2014 Telephone Cardiology at [address] [address] David Naik Jr., MD [address] [place] [address] Social History Tobacco Use Types Packs/Day Years Used Date Smoking Tobacco: Former Cigarettes 0.5 8 Comments:quit 3 months ago Comments Yes Sex and Gender Information Value Date Recorded Sex Assigned at Not on file Gender Identity Not on file Sexual Orientation Not on file documented as of this encounter Miscellaneous Notes * Telephone Encounter - Rebecca Green RN - 07/09/2014 10:33 AM EDT Instructions given to patient & phone given to Josette to schedule OV. * Telephone Encounter - David Naik Jr., MD - 07/09/2014 9:40 AM EDT Yes, resume the metoprolol Ok to breast feed while on it * Telephone Encounter - Rebecca Green RN - 07/09/2014 9:04 AM EDT Patient called because she has recently begun to have frequent palpitations again. She missed her f/u appt because her father & she had stopped her metoprolol after her twins were born. She said she still has the medication & wants to know if she should resume it. She is also going to reschedule her OV. documented in this encounter Plan of Treatment Upcoming Encounters Date Type Department Care Team (Late st Contact Info) Description 01/24/2024 3:40 PM EDT Office Visit Cardiology at [address] [address] Rangel Willams MD [facility] [address] documented as of this encounter Visit Diagnoses Not on filedocumented in this encounter Care Teams Commercial Sheet Metal Foreman Relationship Specialty Start Date End Date Apple Walters APRN PCP - General 01/14/14 06/19/16 documented as of this encounter
--- OUTSIDE RECORDS SUMMARY | 2023-12-27 19:49 | XMS_ITS | Encounter Summary ---
[place] [address] Care Team Providers Care Shot Fireman Name Role Phone Walters, Appledee dee Rizzo APRN Primary Care Provider +1- [phone] Encounter Details Date Type Department Care Team (Late st Contact Info) Description 11/21/2014 Telephone [place] [id number] Denise Nathan, RN Social History Tobacco Use [...] encounter Miscellaneous Notes * Telephone Encounter - Denise Nathan, RN - 11/21/2014 2:45 PM EDT Call to patient per cheyanne Watts Nurse to call Ghada and let her know that she can increase it from 100 mg three times per day to 100-100-300 for 5 days, then 100, 300, 300 for 5 days, then 300 three times per day until I see her again. She should be cautioned that it may make her drowsy or off-balance No answer left message for patient to call back awaiting call back at this time. documented in this encounter Plan of Treatment Upcoming Encounters Date Type Department Care Team (Late st Contact Info) Description 01/24/2024 3:40 PM EDT Office Visit Cardiology at [address] [address] Rangel Willams MD [facility] [place] [address] documented as of this encounter Visit Diagnoses Not on filedocumented in this encounter Care Teams Shot Fireman Relationship Specialty Start Date End Date Apple Walters APRN PCP - General 01/14/14 06/19/16 documented as of this encounter
--- OUTSIDE RECORDS SUMMARY | 2023-12-27 19:49 | XMS_ITS | Encounter Summary ---
Author Organization [facility] [place] [address] Care Team Providers Care Carton Liner Name Role Phone Unknown Primary Care Provider Unavailabl e Reason for Visit * Reason Onset Date Comments Advice Only 01/27/2015 PATIENT SEEN IN ED-EXTERALLY, SEEKING ADVICE Encounter Details Date Type Department Care Team (Late st Contact Info) Description 01/27/2015 Telephone Cardiology at [address] [address] Arnie Suresh MD [facility] [place] [address] Advice Only (PATIENT SEEN IN ED-EXTERALLY, SEEKING ADVICE) Social History Tobacco Use Types Packs/Day Years [...] encounter Miscellaneous Notes * Telephone Encounter - Arnie Suresh MD - 01/30/2015 9:40 AM EDT ED evaluation at [facility] noted - no arrhythmia recorded Will arrange for am ambulatory monitor prior to follow up * Telephone Encounter - Africa Shah - 01/27/2015 9:[address] Suresh, I reached Ms. Ervin today, to confirm an ablation follow up appointment, scheduled for her on March 06, 2015. She confirmed this appointment but also wanted to share concerns she's had since discharge. Ghada wonders if she should come sooner or speak with someone about this. She reports palpitations as well as syncope. A note was placed in the chart January 25, by Dr. Chambers. Also, I have requested records from her [facility] ED visit the other day. They should arrive today. In the meantime, please let us know if she should be seen sooner than scheduled, in light of her recent events. If you would like to speak with the patient directly, you can reach her at [phone]. Messages are fine, per the patient. Thank You, Africa documented in this encounter Plan of Treatment Upcoming Encounters Date Type Department Care Team (Late st Contact Info) Description 01/24/2024 3:40 PM EDT Office Visit Cardiology at [address] [address] Rangel Willams MD [facility] [place] [address] documented as of this encounter Visit Diagnoses Not on filedocumented in this encounter Care Teams Carton Liner Relationship Specialty Start Date End Date Unknown None PCP - General 06/20/16 02/19/17 documented as of this encounter
--- OUTSIDE RECORDS SUMMARY | 2023-12-27 19:49 | XMS_ITS | Encounter Summary ---
[facility] Organization [facility] [place] [address] Care Team Providers Care Beam Dyer Recessed Vat Name Role Phone RomeoSarahdee dee Rizzo APRN Primary Care Provider [phone] Encounter Details Date Type Department Care Team (Late st Contact Info) Description 10/10/2014 10:40 AM EDT Office Visit Cardiology at [address] [id number] CLINIC, Gabby Biggs C[employer] M[employer] OPERATOR [facility] [place] [address] Heart palpitations; SVT (supraventricular tachycardia) Discharge Disposition: Home Social History Tobacco Use [...] Sign Reading Time Taken Comments Blood Pressure 112/80 10/10/2014 10:48 AM EDT Pulse 105 10/10/2014 10:48 AM EDT Temperature - - Respiratory Rate - - Oxygen Saturation 99% 10/10/2014 10:48 AM EDT Inhaled Oxygen Concentration - - Weight 69.4 kg (153 lb) 10/10/2014 10:48 AM EDT Height 157.5 cm (5' 2) 10/10/2014 10:48 AM EDT Body Mass Index 27.98 10/10/2014 10:48 AM EDT documented in this encounter Progress Notes * Gabby Reese Kitty, C[employer] M[employer] OPERATOR - 10/10/2014 12:51 PM EDT Cardiac Electrophysiology Office Visit Subjective: Patient ID: Ghada Ervin is a 23 y.o. female. CC: Evaluation of palpitations and SVT HPI: 23 y.o. female with past medical history of palpitations, severe scoliosis, chronic back pain managed at the pain clinic, and ADD for which she takes Adderall. She first experienced significant palpitations with racing heart during her last . At the time she felt pre-syncopal with tunnel vision when she felt her heart racing. She is able to slow the episodes with vagal maneuvers, cold water being the most effective. She has been followed by Dr. Naik for this. She wore a heart monitor last fall, which showed both sinus tachycardia as well as an SVT around 200bpm (no strips of onset or termination due to artifact). She was treated with metoprolol succinate, up to 50mg daily. After delivery, she had weaned off it at one point due to feeling fatigued (and heart rates in the upper 40s/lower 50s). However, she restarted it after her palpitations increased. She states that she has had multiple episodes recently that are worse than usual. During an episode, she feels racing heart rates, dizziness, shortness of breath and at times near-syncope. She describes these episodes ascoming on suddenly. She describes less severe episodes, during which her heart rate is usually in the 130s-140s. She does not feel pre-syncopal with these. Patient Active Problem List Diagnosis ??? SVT (supraventricular tachycardia) ??? ADD (attention deficit disorder) ??? Scoliosis ??? Heart palpitations Overview Note: Echo: normal heart size and function, trivial MR and TR Loop recorder: SVT rate 212 BPM ??? Chronic pain syndrome ??? Fibromyalgia ??? Migraines ROS: Constitutional: - fatigue, - fever, - chills Respiratory: + shortness of breath, - cough, - apnea, - wheezing Cardiovascular: - chest pain, + palpitations, + unusual rates Neurological: + lightheadedness, + dizziness, + near-syncope, - weakness Psychiatric: + anxious (during an episode) Medications: Current Outpatient Rx Name Route Sig Dispense Refill ??? topiramate (TOPAMAX) 25 mg Tablet Oral Take 25 mg by mouth daily. ??? topiramate (TOPAMAX) 50 mg Tablet Oral Take 50 mg by mouth nightly. ??? oxyCODONE-acetaminophen (PERCOCET) 10-325 mg Tablet Oral Take 1 tablet by mouth every 6 hours as needed for Pain for up to 28 days. 112 tablet 0 ??? dextroamphetamine-amphetamine (ADDERALL) 20 mg Tablet Oral Take 20 mg by mouth daily. Indications: Attention-Deficit Hyperactivity Disorder ??? milnacipran (SAVELLA) 50 mg Tablet Oral Take 50 mg by mouth 2 times daily. ??? DISCONTD: topiramate (TOPAMAX) 25 mg Tablet Oral Take 50 mg by mouth daily. ??? omeprazole (PRILOSEC) 20 mg Capsule, Delayed Release(E.C.) Oral Take 20 mg by mouth daily. ??? metoprolol succinate (TOPROL-XL) 50 mg Tablet Sustained Release 24 hr Oral Take 1 tablet by mouth daily. 90 tablet 3 ??? Mometasone 50 mcg/actuation [place], Non-Aerosol Nasal 1 spray by Nasal route as needed. ??? DISCONTD: meloxicam (MOBIC) 7.5 mg Tablet Oral Take 7.5 mg by mouth daily. ??? DISCONTD: diclofenac (VOLTAREN) 25 mg Tablet, Delayed Release (E.C.) Oral Take 25 mg by mouth daily. ??? DISCONTD: promethazine (PHENERGAN) 12.5 mg Tablet Oral Take 12.5 mg by mouth every 6 hours as needed. ??? Oga-Mmtunecmxw-Xhlgtlsvly-Caf 72-921-85-30 mg Capsule Oral Take 1 tablet by mouth every 4 hours as needed. ??? Vit-Iron Fumarate-FA () 28-0.8 mg Tablet Oral Take 1 tablet by mouth daily. ??? calcium carbonate (TUMS) 200 mg calcium (500 mg) Tablet, Chewable Oral Take 2 tablets by mouth daily as needed. Objective: Vitals: Filed Vitals: 10/10/14 1048 BP: 112/80 Pulse: 105 Height: 157.5 cm (5' 2) Weight: 69.4 kg (153 lb) SpO2: 99% Physical Exam: General- No acute distress, sitting comfortably in exam room chair HEENT- Head atraumatic, normocephalic Skin- Warm and dry Cardiovascular- S1/S2 regular rate and rhythm. No murmur, rub or gallop Lungs- Clear to auscultation bilaterally Extremities- Pulses equal bilaterally. No edema noted Neuro- A&Ox3 Echo 02/03/14: Left ventricle: The left ventricle is normal in size. Left ventricular systolic function is normal.The estimated EF is 65%. Assessment of diastolic parameters indicates normal left ventricular diastolic function and normal filling pressures. Right ventricle: The right ventricle is normal in size. There is normal right ventricular wall thickness. The right ventricular systolic function is normal. Atria: The left atrial size is normal. Right atrial size is normal. The atrial septum is aneurysmal. No shunt across the atrial septum. Aortic valve: The aortic valve is trileaflet. The aortic cusps are thin and demonstrate good excursion. There is no aortic valve stenosis. No aortic regurgitation present. Mitral valve: The mitral leaflets and apparatus appear structurally normal. There is trace mitral regurgitation. Pulmonic valve: The pulmonic valve appears structurally normal. There is a trace or physiologic amount of pulmonic regurgitation Tricuspid valve: The tricuspid valve appears structurally normal. There is a trace tricuspid regurgitation. Right ventricular systolic pressure is normal. Assessment and Plan: 23 y.o. with medical history significant for sinus tachycardia and symptomatic supraventricular tachycardia with breakthrough on largest tolerated beta kaitlin dose. Her history is also significant for severe scoliosis s/p multiple procedures leading to chronic back pain, management with opioids att Pain Clinic. Plan: 1. We had a discussion regarding the more definitive treatment of ablation for her SVT. I explainedthe possible options of what her SVT is, although we could not be sure prior to performing the EPS.We discussed the success rate of the procedure depends on the ability of whether or not she is inducible on the day of the procedure. I reviewed possible procedure risks including, but not limited toinclude vascular access issues, bleeding, damage to heart and lungs requiring drainage tube, stroke, and heart attack. At this point, she would like to proceed with an ablation. Consent was reviewed and signed. Will be scanned into eDH. She was given an ablation booklet to read at home. 2. I explained to her that I believe that she has two separate issues, the SVT and the sinus tachycardia. I explained that the ablation would not address her sinus tachycardia, and that she may need to continue on medications for this in the future. I suspect that her Adderall is contributing to her sinus tachycardia. She would still like to move forward with the procedure given the severity of her symptoms when she is likely in SVT (rates >200bpm). 3. She will be set up for SVT ablation with general anesthesia (given her chronic pain). 4. Continue current dosing of metoprolol succinate 50mg daily. She will stop this 3 days prior to her procedure. 5. Follow up post-procedure. documented in this encounter Plan of Treatment Upcoming Encounters Date Type Department Care Team (Late st Contact Info) Description 01/24/2024 3:40 PM EDT Office Visit Cardiology at [address] [phone] Rangel Willams MD [facility] [place] [address] documented as of this encounter Procedures Procedure Name Priority Date/Time Associated Diagnosis Comments ELECTROPHYSIOLOGY PROCEDURE Routine 01/12/2015 12:15 PM EDT Heart palpitations SVT (supraventricular tachycardia) documented in this encounter Results * ELECTROPHYSIOLOGY PROCEDURE (01/12/2015 12:15 PM EDT) Anatomical Region Laterality Modality Other Impressions 01/12/2015 1:21 PM EDT : ? 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 Suresh was present and participated in all farfan portions. EBL: 30 cc to flush sheaths Narrative 01/12/2015 1:21 PM EDT Ablation of Atrioventicular Korina Re-Entrant Tachycardia: Electrophysiology Evaluation, Mapping, Ablation, and General anesthesia Indication: Symptomatic supraventricular Tachycardia Operators: Valentino Wilson M.D., Arnie JENKINS.[facility]. Procedure: The patient was brought to the biplane Electrophysiology Laboratory in the fasting sedated state. ??Continuous electrocardiographic monitoring was instituted. ??Moderate sedation was performed with incremental doses of midazolam and fentanyl. ??Both groins and the right neck were prepped and draped in the usual sterile fashion and 2% lidocaine with 0.5 % bupivicaine in a 2:3 mixture was instilled for local anesthesia. ??Venous access was obtained using the modified Seldinger technique, guided by ultrasonography. ??Catheters were positioned utilizing fluoroscopy. Site ??Sheath Catheter ?Access site ? Right atrium 10 Fr Trio 4 Fr Daig CRD quadripolar ??Left femoral vein His ??10 Fr Trio 5 Fr Daig CRD-2 quadripolar ??Left femoral vein Right ventricle 10 Fr Trio 4 Fr Daig CRD quadripolar ? Left femoral vein Coronary sinus 6 Fr 6 Fr Daig CS decapolar ?? Right internal jugular Ablation/rove 8 Fr SR0 8 Fr 6 mm tip, large curve Cryo Right femoral vein After all of the catheters were in position the patient was heparinized with a single bolus of 4000 units of heparin. A heparin infusion was not used. Programmed electrical stimulation, mapping, and ablation was performed as detailed below and stored on the computer network. ??At the termination of the procedure, the catheters and sheaths were removed, and hemostasis was obtained with manual compression. ??The patient tolerated the procedure well and was transported to a telemetry bed in good condition. Total fluoroscopy time: 18.5 minutes, DAP 1056 cGY/cm-2 RESULTS: Baseline Parameters: Intervals: Cycle length: ??806 ms DC 131 ms QRS 106 ms QT 419 ms AH 65 ms HV 44 ms Effective refractory periods: RA: ? 600/180 (at end of study) RVA: ? 600/310 AV node, antegrade: ??< 600/310 at beginning of study Conduction: AV Wenckebach: 360 ms VA Conduction: 1:1 at 600 ms Post Ablation Parameters: Intervals: Cycle length: 707 ms DC 124 ms AH 69 ms AV node ERP: 600/260 ms SUMMARY: 1. Baseline rhythm was sinus without pre-excitation at 806 ms. 2. Rapid ventricular pacing and ventricular extrastimuli protocols were performed. ? Decremental conduction was demonstrated. ? The retrograde atrial activation sequence was HBE, proximal coronary sinus, distal coronary sinus, and right atrium. 3. Rapid atrial pacing and atrial extrastimuli protocols were performed. ? Atrial pacing did not pre-excite the ventricle. ?? ? Atrio-ventricular Wenckebach occurred at 360 ms ? Effective refractory period of the AV node could not be evaluated at the beginning of the study as premature atrial beats at a coupling interval of 600/310 would induce non sustained SVT. 4. Supraventricular tachycardia (309 ms) was induced with premature atrial beats at 600/270 on and off dobutamine at 0,5 and 10 ucg/kg/min; the SVT was non sustained when off dobutamine and sustained when on the higher dose of dobutamine. Initially, maneuvers were difficult to perform as SVT would terminate, but on high dose dobutamine, the tachycardia was sustained enough to perform diagnostic maneuvers. ? During SVT, the AH interval was 251 ms, the HV interval was 38 ms and the VA interval was 35 ms to the proximal His. ? Atrial activation was earliest in the His position, followed by the proximal coronary sinus, distal coronary sinus, and finally RA. ? The atrial activation sequence was the same as during ventricular pacing. ? VPBs during SVT did not pre-excite the atrium when the His was refractory ? The His atrial electrogram preceded the ventricular electrogram during SVT ? The SVT was terminated with RVP at 250 ms. ? The SVT was terminated with ventricular pacing without atrial pre-excitation. ? Ventricular entrainment during SVT demonstrated a V-A-H-V response with termination.. ? PPI-TCL was >115ms SA-VA was > 85ms All consistent with AV korina reentrant tachycardia. 5. 6 cryoablation lesions were delivered to the tricuspid valve annulus at the level of the CS OS and up to the midseptal region carefully monitoring AV conduction. Supraventricular tachycardia was no longer inducible immediately after the first ablation which was delivered just above the location of the coronary sinus OS, on the septum with an approximately 1:4 A:V ratio. Lesion duration was 6 minutes. This initial location was surrounded with 5 additional cryoablation lesions, including one delivered to the roof of the coronary sinus OS. The Nav_X system wsa used to identify locations of these lesions in 3 D space. 6. Over an hour after the initial non-inducibility, pre and post-Dobutamine (10 mcg/minute), heart rate 90-100 bpm) supraventricular tachycardia was no longer inducible, with multiple attempts at rapid atrial pacing and premature beats. At the beginning of the study, it was easily inducible and also occurred spontaneously. Arnie Suresh MD EP PROCEDURE ORDERAB LES documented in this encounter Visit Diagnoses Diagnosis Heart palpitations Palpitations SVT (supraventricular tachycardia) Other specified cardiac dysrhythmias SVT (supraventricular tachycardia) Other specified cardiac dysrhythmias Heart palpitations Palpitations documented in this encounter Care Teams Beam Dyer Recessed Vat Relationship Specialty Start Date End Date Apple Walters APRN PCP - General 01/14/14 06/19/16 documented as of this encounter
--- OUTSIDE RECORDS SUMMARY | 2023-12-27 19:49 | XMS_ITS | Encounter Summary ---
Author Organization [facility] [place] [address] Care Team Providers Care Automotive Service Management Teacher Name Role Phone Apple Walters KIM Primary Care Provider [phone]- [phone] Encounter Details Date Type Department Care Team (Late st Contact Info) Description 03/25/2015 Orders [place] [phone] Jazzy Jean Social History Tobacco Use Types Packs/Day Years [...] PM EDT Office Visit Cardiology at [address] [phone] Rangel Willams MD [facility] [place] [address] documented as of this encounter Visit Diagnoses Not on filedocumented in this encounter Care Teams Automotive Service Management Teacher Relationship Specialty Start Date End Date Apple Walters APRN PCP - General 01/14/14 06/19/16 documented as of this encounter
--- OUTSIDE RECORDS SUMMARY | 2023-12-27 19:49 | XMS_ITS | Encounter Summary ---
Author Organization [facility] [place] [address] Care Team Providers Care Mine Car Repairer Name Role Phone Apple Quiñonez KIM Primary Care Provider +1- [phone] Encounter Details Date Type Department Care Team (Latest Contact Info) Description 01/12/2015 1:48 PM EDT - 01/13/2015 10:10 AM EDT Hospital Encounter [place] [phone] Greg Davis MD [facility] [place] [address] Ignacio Alicia MD [facility] [place] [address] Heart palpitations; SVT (supraventricular tachycardia) Discharge Disposition: [...] Sign Reading Time Taken Comments Blood Pressure 103/54 01/13/2015 7:40 AM EDT Pulse 95 01/13/2015 7:40 AM EDT Temperature 36.6 ??C (97.9 ??F) 01/13/2015 7:40 AM ED T Respiratory Rate 16 01/13/2015 7:40 AM EDT Oxygen Saturation 99% 01/13/2015 7:40 AM EDT Inhaled Oxygen Concentration - - Weight 71.8 kg (158 lb 3.2 oz) 01/12/2015 6:45 A M EDT Height 157.5 cm (5' 2.01) 01/12/2015 6:45 AM ED T Body Mass Index 28.93 01/12/2015 6:45 AM EDT documented in this encounter Discharge Summaries * Gabby Zaldivar, WIND FARM ENGINEER - 01/13/2015 8:56 AM EDT Cardiac Electrophysiology Discharge Summary Patient Name: Ghada Ervin Patient Age: 24 y.o. Language: [place] Race: White Ethnicity: Not nor Admit date: [...] Scale: 71.759 kg (158 lb 3.2 oz) (01/12/1545) Functional and Cognitive Status: Stable Admission Diagnoses: [...] month). Indications:Panic Disorder 0.5 mg Refills: 0 ssdzugkkha-vfyirolmjywkx-crtwjczs-codeine [id number] mg Cap Commonly known as: FIORICET WITH CODEINE Take 1 tablet by mouth every 4 hours as needed. 1 tablet Refills: 0 calcium carbonate 200 mg calcium (500 mg) Chew Commonly known as: TUMS Take 2 tablets by mouth daily as needed. 2 tablet Refills: 0 mometasone 50 mcg/actuation [place] Commonly known as: NASONEX 1 spray by [...] in 1 month. You will have a environmental monitoring technician (ZIO patch) ordered several weeks prior to [...] [facility]. The patient should be aware and informed [...] 1:15 PM Ignacia Watts APRN Pain Management [phone] Joint Appt NURSE VISIT, PAIN CLINIC Pain Management [phone] Discharge References/Attachments None documented in this encounter Discharge Instructions * Patient Instructions* Gabby Zaldivar APRN - 01/13/2015 8:53 AM EDT 1. Medications as prescribed. Use ice packs as often as you'd like over the access sites for discomfort. 2. Follow up with Dr. Alicia in 1 month. You will have a environmental monitoring technician (ZIO patch) ordered several weeks prior to [...] [facility]. The patient should be aware and informed [...] of this encounter Progress Notes * Tatiana oSto RN - 01/13/2015 9:35 AM EDT Patient Name: Ghada Ervin Patient Age: 24 y.o. Birthdate: 1990 Admit date: 01/12/2015 Attending Physician: Ignacio Alicia MD OFFICE OF CARE MANAGEMENT Yanique Soto RN Pager: [phone] Peripatologist Record reviewed and patient discussed with multidisciplinary team. No discharge needs identified atthis time. Peripatologist remains available as needed for coordination of care and discharge planning. Plan: CRC will continue to follow for coordination of care and to facilitate discharge planning. * Gabby Zaldivar Kitty, WIND FARM ENGINEER - 01/13/2015 8:44 AM EDT Cardiac Electrophysiology [...] home today. GABBY ZALDIVAR APRN 01/13/2015 Pager: [phone] * Giselle Guzman RN - 01/12/2015 2:18 [...] - 01/12/2015 6:53 AM EDT Ghada Ervin [id number] 01/12/2015 24 y.o. Cardiology EP History and [...] Outcome: Outcome (s) achieved Date Met: 01/13/15 01/12/15169901/13/15940 Safety Interventions Safety Precautions/Fall Reduction -- fall [...] Handling Outcome: Ongoing (Interventions Implemented as Appropriate) 01/12/15169901/12/15195101/12/152051 Safety Interventions Safety Precautions/Fall Reduction -- fall [...] clean dry and intact. Remained on bedside environmental monitoring technician reading NSR 70's. Ambulating in hallway with [...] Mutuality Outcome: Ongoing (Interventions Implemented as Appropriate) 01/12/15 1737 Individualization Patient Specific Goals decrease pain, mobilize, [...] Outcome: Ongoing (Interventions Implemented as Appropriate) 01/12/15 173 Safety Interventions Isolation Precautions standard precautions maintained Infection Prevention environmental surveillance;hydration promoted;nutrition promoted;promote handwashing;rest/sleep promoted Coping/Psychosocial Response Interventions Counseling reassurance provided;emotional support provided Goal: Discharge Needs Assessment Outcome: Ongoing (Interventions Implemented as Appropriate) 01/12/151736 Discharge Needs Assessment Concerns to be Addressed [...] PM EDT Office Visit Cardiology at [address] [address] Rangel Willams MD [facility] [place] [address] documented as of this encounter Procedures Procedure Name Priority Date/Time Associated Diagnosis Comments EKG 12-LEAD Routine 01/13/2015 7:43 AM EDT SVT (supraventricular tachycardia) NURSING INFORMATICS ANALYST SCAN 01/13/2015 12:00 AM EDT EKG 12-LEAD [...] (Bezet) 440 ms MUSE SYSTEM Calculated P [place] 29 degrees MUSE SYSTEM Calculated R [place] 3 degrees MUSE SYSTEM Calculated T [place] 18 degrees MUSE SYSTEM INTERPRETATION Normal sinus rhythm Incomplete right bundle branch block Nonspecific T wave abnormality Abnormal ECG When compared with ECG of 12-JAN-2015 07:17, No significant change was found Confirmed by Andres Anderson ([id number]) on 01/13/2015 6:09:23 PM MUSE SYSTEM 01/13/2015 7:43 AM EDT 01/13/2015 6:09 PM EDT Ignacio Alicia MD ECG ORDERABLES MUSE SYSTEM * SCAN DOC: NURSING INFORMATICS ANALYST (01/13/2015 12:00 AM EDT) Anatomical Region Laterality [...] (Bezet) 433 ms MUSE SYSTEM Calculated P [place] 0 degrees MUSE SYSTEM Calculated R [place] 9 degrees MUSE SYSTEM Calculated T [place] 10 degrees MUSE SYSTEM INTERPRETATION Normal sinus rhythm Incomplete right bundle branch block Borderline ECG No previous ECGs available Confirmed by Andres Anderson ([id number]) on 01/12/2015 4:28:07 PM MUSE SYSTEM 01/12/2015 7:17 AM EDT 01/12/2015 4:28 PM EDT Greg Davis MD ECG ORDERABLES MUSE SYSTEM * Differential, Automated (01/12/2015 6:39 [...] Hemoglobin 31.9 26.6 - 32.2 pg CERNER ELIJAHENNIUM Mean Cell Hemoglobin Concentration 33.3 32.0 - 36.5 gm/dL CERJOSÉA NTONIO NAVAENNIUM Platelet 250 145 - 370 x10(3)/mc L CERNER MILLENNIUM RDW Standard Deviation 46.5(H) 35.0 - 46.0 fL CERNER MILLENNIUM RDW coefficient of variation 13.2 10.9 - 14.4 % CERNER MILLENNIUM Mean Platelet Volume 10.8 9.0 - 12.0 fL CERJOSÉ ANTONIO NAVAENNIUM Blood specimen (specimen) 01/12/2015 6:39 AM EDT 01/12/2015 6:42 AM EDT Narrative Resulting Agency Comment Spec In Lab Ignacio Alicia MD HEMATOLOGY ORDERABLE S THERESA SANABRIAIUM * BMP w/fasting Glucose (01/12/2015 6:39 AM EDT) Glucose Fasting 89 65 - 99 mg/dL [facility] ELIJAHENNIUM Comment: ?Fasting* Glucose Interpretive Criteria Normal ?65-99 [...] of Diabetes Mellitus, Position Statement from the [place] [employer]. ??Diabetes Care, Volume 33, Supplement 1, Apr 2009 Blood Urea Nitrogen 18 8 - 18 mg/dL [facility] Creatinine 0.79 0.70 - 1.20 mg/dL CERNER MILLENNIUM Comment: Please note that the pediatric reference intervals supplied above were not validated at [facility] [place] [place]. Results from pediatric patients should be interpreted in conjunction to the patient's age, height and muscle mass. Sodium 140 135 - 145 mmol/L CERNER MILLENNIUM Potassium 4.0 3.5 - 5.0 mmol/L CERNER [...] the following links into your internet browser. [email or web address] [place], [place]kf Blood specimen (specimen) 01/12/2015 6:39 AM EDT 01/12/2015 6:43 AM EDT Narrative Resulting Agency Comment Spec In Lab Ignacio Alicia MD CHEMISTRY ORDERABLES MARISOLJOSÉ ANOTNIO NAVAFABYANDREW * Prothrombin Time (01/12/2015 6:39 AM EDT) Prothrombin Time 13.8 12.0 - 15.0 sec CERNER MILLENNIUM Comment: Transfusion Committee Guidelines: INR less than 2.0, PTT less than OR equal to 43.5 seconds, or Fibrinogen greater than or equal to 100 mg/dl indicate adequate procoagulant activity for hemostasis in patients without underlying bleeding disorders. International Normalization Ratio 1.0 0.9 - 1.1 THERESA HAWTHORNE Blood specimen (specimen) 01/12/2015 6:39 AM EDT 01/12/2015 6:43 AM EDT Narrative Resulting Agency Comment Spec In Lab Ignacio Alicia MD HEMATOLOGY ORDERABLE S THERESA HAWTHORNE * Beta HCG, quantitative (01/12/2015 6:39 AM EDT) Beta Human Chorionic Gonadotropin, Quantitative <1 mlU/ML THERESA HAWTHORNE Comment: REFERENCE RANGES NON- FEMALE: ??Less than [...] - 56,451 ?17 weeks ? 8,175 - 91,868 ?18 weeks ? 8,099 - 15,176 Blood specimen (specimen) 01/12/2015 6:39 AM EDT 01/12/2015 6:43 AM EDT Narrative Resulting Agency Comment Spec In Lab Ignacio Alicia MD CHEMISTRY ORDERABLES CERNER MILLENNIUM documented in this encounter Visit Diagnoses Diagnosis Heart palpitations Palpitations SVT (supraventricular tachycardia) Other specified cardiac dysrhythmias documented in this encounter Administered Medications Inactive Administered Medications - up to 3 most recent administrations Medication Order MAR Action Action Date Dose Rate Site BUpivacaine (PF) (MARCAINE) 0.5 % (5 mg/mL) injection 150 mg 150 mg (30 mL), Subcutaneous, ONCE, 1 dose, On Mon01/12/15 at 0945, EP (Intra-Procedure), Routine Given 01/12/2015 8:30 AM EDT 150 mg usuupvpfee-garlvrmjzjsrz-ojrlmfb e (FIORICET, ESGIC) per tablet 1 tablet [...] 0830 (Given - Provider: Ivett Oates RN) zglabdgefk-etqlvmkxfhlus-nv ffeine (FIORICET, ESGIC) per tablet 1 tablet [...] for omeprazole (PriLOSEC) capsule 20 mg, Routine 1627 (JUN Hold - Provider: Admin Adt - Reason: Transfer to a Procedural area)1628 (JUN Unhold - Provider: Admin Adt)2116 (Given - Provider: Edith Roman RN) gabapentin (NEURONTIN) capsule 300 mg (CANCELED) 300 mg, Oral, 3 TIMES DAILY, First dose on Mon01/12/15 at 1500, Until Discontinued, 300 mmg in the morning and afternoon and 900mg for the night time dose., Routine 1511 (Given - Provider: Giselle Guzman RN)1627 (JUN Hold - Provider: Admin Adt - Reason: Transfer to a Procedural area)1628 (JUN Unhold - Provider: Admin Adt)2116 (Given - Provider: Edith Roman RN) 0914 (Given - Provider: Giselle Guzman RN) gabapentin [...] Indication for (Active or Suspected): Prophylaxis 1627 (JUN Hold - Provider: Admin Adt - Reason: Transfer to a Procedural area)162 ([facility] Unhold - Provider: Admin Adt)2117 (Given - Provider: Edith Roman, ROBERT) oxyCODONE-acetaminophen (PERCOCET) 5-325 mg per tablet [...] Giselle Guzman RN - Reason: Patient/family refused)1627 ([facility] Hold - Provider: Admin Adt - Reason: Transfer to a Procedural area)1628 ([facility] Unhold - Provider: Admin Adt) 0914 (Given - Provider: Giselle Guzman RN) topiramate (TOPAMAX) tablet 50 mg (CANCELED) 50 mg, Oral, NIGHTLY, First dose on Mon01/12/15 at 2300, Until Discontinued, Routine 1627 ([facility] Hold - Provider: Admin Adt - Reason: Transfer to a Procedural area)162 ([facility] Unhold - Provider: Admin Adt)224 (Given - Provider: Edith Roman, ROBERT) PRN [...] Recovery 1244 (Given - Provider: Ivett Landon, ROBERT)1252 (Given - Provider: Ivett Landon, ROBERT)1308 (Given - Provider: Ivett Landon, RN) oxyCODONE-acetaminophen [...] - Reason: Transfer to a Procedural area)1628 (JUN Unhold - Provider: Admin Adt)2118 (Given - Provider: Edith Roman, ROBERT) documented in this encounter Care Teams Mine Car Repairer Relationship Specialty Start Date End Date Apple Quiñonez APRN PCP - General 01/14/14 06/19/16 documented as of this encounter
--- OUTSIDE RECORDS SUMMARY | 2023-12-27 19:49 | XMS_ITS | Encounter Summary ---
[place] [address] Care Team Providers Care [employer] Principal Name Role Phone Apple Walters APRN Primary Care Provider +1- [phone] Reason for Visit * MRI/CAT Scan (Routine) - Closed Specialty Diagnoses / Procedures Referred By Contac t Referred To Contact Radiology Diagnoses Lumbar pain with radiation down both legs Procedures PRG MRI LUMBAR SPINE W/O&W CONTRAST PRG MRI CERVICAL SPINE Luis Enrique Contreras MD [facility] [place] [address] [place] [address] Referral ID Status Reason Start Date Expiration Date Visits Re quested Visits Authorized [id number] Closed 02/19/2015 05/20/2015 2 2 Encounter Details Date Type Department Care Team (Latest Contact Info) Description 02/27/2015 1:36 PM EST - 02/27/2015 11:59 PM EST [place] [address] Luis Enrique Contreras MD [facility] [place] [address] Discharge Disposition: Home Social History Tobacco Use [...] Refills Start Date End Date pregabalin (LYRICA) 75 mg CapsuleIndications:f ibromyalgia Take 1 capsule by mouth 2 times daily. For 7 days, then increase to 2 tabs twice per day Indications: Fibromyalgia 106 tablet 0 02/27/2015 06/15/2015 oxyCODONE-acetaminop hen (PERCOCET) 10-325 mg TabletIndications:pa in Take 1 tablet by mouth every 6 hours as needed for Pain (no more than 4 per day) for up to 28 days. Indications: Pain 112 tablet 0 02/27/2015 03/27/2015 potassium chloride (KLOR-CON M20) 20 mEq Tab Sust.Rel. Particle/Crystal Take 20 mEq by mouth 2 times daily. 02/07/2018 gabapentin (NEURONTIN) 300 mg Capsule 300-300-300 for [...] PM EDT Office Visit Cardiology at [address] [address] Rangel Willams MD [facility] [place] [address] documented as of this encounter Procedures Procedure Name Priority Date/Time Associated Diagnosis Comments MRI LUMBAR SPINE WITHOUT CONTRAST Routine 02/27/2015 4:10 PM EST Lumbar pain with radiation down both legs Chronic low back pain Scoliosis MRI CERVICAL SPINE WO CONTRAST Routine 02/27/2015 4:10 PM EST Chronic pain syndrome Scoliosis Cervicalgia Radiculopathy of cervical region documented in this encounter Results * MRI [...] the clinical situation (Reference- Abivik et al, Spine 2001). Findings: (Prevalence in [...] in context of the clinical situation (Reference- Simeonk et al, [id number]). Findings: (Prevalence in patients without low back pain), discdegeneration (decreased T2 signal, height loss, bulge) (91%), disc T2-signal loss(83%), disc height loss (56%), disc bulge (64%), disc protrusion (32%), annularfissure (38%). Luis Enrique ANSARI MRI ORDERABLE S * MRI Cervical Spine WO Contrast (02/27/2015 4:10 PM EST) Anatomical Region Laterality Modality C-spine Magnetic Resonan ce Impressions 02/27/2015 8:02 PM EST IMPRESSION: Normal MRI of cervical spine Narrative 02/27/2015 8:02 PM EST EXAMINATION: MRI CERVICAL SPINE WO CONTRAST CLINICAL [...] the spinal canal, or neural foramen narrowing. Procedure Note Ayaan Castro MD - 02/27/2015 EXAMINATION: MRI CERVICAL SPINE WO CONTRAST CLINICAL HISTORY: increasing neck pain with bilateral radiculopathyhistory scoliosis fusion T3-T12 TECHNIQUE: MRI of the cervical spine was obtained per radiculopathyprotocol. No intravenous contrast. COMPARISON: Limited MRI of the cervical spine of 04/12/2007 FINDINGS: The study is mildly marred by patient motion. Vertebral height, alignment,and marrow signal are normal. Disc space heights are normally preserved. Thereis no disc herniation, encroachment upon the spinal canal, or neural foramen narrowing. IMPRESSION IMPRESSION: Normal MRI of cervical spine Luis Enrique ANSARI MRI ORDERABLE S documented in this encounter Visit Diagnoses Not on filedocumented in this encounter Care Teams [employer] Principal Relationship Specialty Start Date End Date Apple Walters APRN PCP - General 01/14/14 06/19/16 documented as of this encounter
--- OUTSIDE RECORDS SUMMARY | 2023-12-27 19:49 | XMS_ITS | Encounter Summary ---
Author Organization [facility] [place] [address] Care Team Providers Care Collection Card Clerk Name Role Phone Apple Walters Matthias ALVAREZ Primary Care Provider +1- [phone] Encounter Details Date Type Department Care Team (Late st Contact Info) Description 02/05/2015 3:30 PM EDT Clinical Support Cardiology at [address] [address] Arnie Suresh MD [facility] [place] [address] Palpitations Social History Tobacco Use Types Packs/Day Years [...] as of this encounter Progress Notes * Danyelle Alexander RN - 02/11/2015 10:38 AM EDT Patient instructed in the use of a 30 day event monitor-hand held. [facility]. Baseline strip shows sinus rhythm around 90 BPM. Full report at the end of service. documented in this encounter Plan of Treatment Upcoming Encounters Date Type Department Care Team (Late st Contact Info) Description 01/24/2024 3:40 PM EDT Office Visit Cardiology at [address] [address] Rangel Willams MD [facility] [place] [address] documented as of this encounter Visit Diagnoses Diagnosis Palpitations documented in this encounter Care Teams Collection Card Clerk Relationship Specialty Start Date End Date Apple Walters APRN PCP - General 01/14/14 06/19/16 documented as of this encounter
--- OUTSIDE RECORDS SUMMARY | 2023-12-27 19:49 | XMS_ITS | Encounter Summary ---
[place] [address] Care Team Providers Care Network Field Engineer Name Role Phone Apple Walters Matthias ALVAREZ Primary Care Provider [phone]- [phone] Encounter Details Date Type Department Care Team (Late st Contact Info) Description 01/25/2015 [place] [phone] Jaylin Chambers MD [facility] [place] [address] Social History Tobacco Use Types Packs/Day Years [...] encounter Miscellaneous Notes * Telephone Encounter - Jaylin Chambers MD - 01/25/2015 1:32 AM EDT Ms. Ervin is a 24 year old woman with a history of AVNRT s/p recent ablation (dicharged 01/12/15) who called to report she was up this morning watching a movie when her heart began to race and she began to have associated chest pain with radiation into her left axilla with associated mild lightheadedness. She checked her HR with a pulse ox monitor and it was in the 130's -140's. She tried vagal maneuvers, splashing cold water on her face, coughing and the HR only improved for a few seconds. Thepalpitations continue and she feels the chest pain worsening and is becoming anxious. She denies recent illness, fever, colds, new medications. She is not on a beta kaitlin post procedure. Given the p alpitations are continuing and she reports associated CP and lightheadedness I told her the only way to know what is going on with her heart rhythm is to be assessed in the ED. She will likely go to a local ED near [place]. She plans to call Dr. Suresh's office on Monday to make a follow up appointment. documented in this encounter Plan of Treatment Upcoming Encounters Date Type Department Care Team (Late st Contact Info) Description 01/24/2024 3:40 PM EDT Office Visit Cardiology at [address] [address] Rangel Willams MD [facility] [place] [address] documented as of this encounter Visit Diagnoses Not on filedocumented in this encounter Care Teams Network Field Engineer Relationship Specialty Start Date End Date Apple Walters APRN PCP - General 01/14/14 06/19/16 documented as of this encounter
--- OUTSIDE RECORDS SUMMARY | 2023-12-27 19:49 | XMS_ITS | Encounter Summary ---
Author Organization Formerly [facility] [place] [address] Care Team Providers Care Route Driver Name Role Phone Apple Walters APRN Primary Care Provider [phone]- [phone] Reason for Referral * Consultation (Routine) - Closed Specialty Diagnoses / Procedures Referred By Lang sanches Referred To Contact Rheumatology Diagnoses Fibromyalgia Arthralgia Ignacia Watts [facility] [place] [address] [facility] [address] Referral ID Status Reason Start Date Expiration Date V isits Requested Visits Authorized [id number] Closed Consult, Test & Treat 03/27/2015 03/26/2016 1 1 Reason for Visit * Reason Comments Pain Management Back Pain Bilateral Leg Pain Hip Pain Encounter Details Date Type Department Care Team (Late st Contact Info) Description 03/27/2015 1:00 PM EST Office [place] [address] Ignacia Watts [facility] [place] [address] Chronic pain syndrome; Scoliosis; terminal gauger current use of opiate analgesic; Chronic low back pain; Facet arthropathy, lumbosacral; Fibromyalgia; Arthralgia Social History Tobacco Use Types Packs/Day Years [...] Reading Time Taken Comments Blood Pressure 128/75 03/27/2015 12:49 PM EST Pulse 97 03/27/2015 12:49 PM EST Temperature - - Respiratory Rate - - Oxygen Saturation 100% 03/27/2015 12:49 PM EST Inhaled Oxygen Concentration - - Weight 71.7 kg (158 lb) 03/27/2015 12:49 PM EST Height 157.5 cm (5' 2) 03/27/2015 12:49 PM EST Body Mass Index 28.9 03/27/2015 12:49 PM EST documented in this encounter Progress Notes * Ignacia Watts APRN - 04/01/2015 7:25 PM ESTQuick Note: Urine results consistent with patient reported history on date of this test Ignacia Watts DNP, ANP-CS, CASE LINER Nurse Practitioner [facility] * Ignacia Watts APRN - 03/27/2015 1:07 PM EST PAIN CLINIC FOLLOW-UP Ghada Ervin [phone] Reason for follow-up: Medication management Chronic Opioid Therapy Pain Management Plan signed on 09/17/14 UDT: 01/02/15 findings reflect reported history taken on 01/02 The [place] and [place] Prescription Monitoring Program were checked [...] and was referred to neurology clinic . Has diagnosis of fibromyalgia, but has swollen painful finger joints- referred to rheumatology. 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 Diagnosed with hypokalemia and hypomagnesemia in ED last month related to syncopal episode. Interim history Saw headache specialist Dr. Ritchie, here in neurology- found out one of her migraine medications cause renal stones; had occipital injections and new nasal spray; follow up in 5 weeks, having brain MRI done 04/09. Waiting for insurance approval for Botox injections. Rheumatology on 03/30. Increased swelling knuckles, wrists. Cold is making it worsen. Tapered off gabapentin, on lyrica 150 mg bid- notices less sharp pains/twingy pains Current treatment: Percocet 10/325 no more than 4 per day Physical therapy: ongoing for generalized pain- has been dry needling recently which seems to help ([phone] Mario Desouza or Saira) Gabapentin 300-300-900 Counseling/therapy: Stephanie Banegas APRN (saw her recently, doing well, will call as needed) still sees psychiatrist monthly Savella 50 mg (2) bid xanax 0.5 mg no more than 10 per month for anxiety/sleep- knows not to combine with percocet Marijuana Pain Location: mid lumbar and thoracic spine, and b/l hips; low back left side is worsening- 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 dextroamphetamine-amphetamine (ADDERALL XR) 20 mg Capsule, Sust. Release 24 hr Take 20 mg by mouth every morning. Yes dihydroergotamine (MIGRANAL) 0.5 mg/pump act. (4 mg/mL) [place], Non-Aerosol Migranal nasal spray, 1 spray in each nostril, wait 15 minutes then repeat x 1 for a total of 4 sprays daily. Limit use to 2x weekly. Yes naproxen sodium (ANAPROX) 550 mg Tablet Take 1 tablet by mouth 2 times daily as needed. Yes hydrOXYzine (VISTARIL) 25 mg Capsule Take 1 capsule by mouth 2 times daily as needed. Yes cyproheptadine (PERIACTIN) 4 mg Tablet Take 1 tablet by mouth nightly. Yes promethazine (PHENERGAN) [address] 1 suppository rectally every 6 hours as needed forNausea. Yes promethazine (PHENERGAN) 25 mg Tablet Take 1 tablet by mouth every 6 hours as needed for Nausea forup to 7 days. Yes ondansetron (ZOFRAN) 8 mg Tablet Take [...] 10 per month). Indications: Panic Disorder Yes nitrofurantoin (MACRODANTIN) 100 mg Capsule Take 100 mg by mouth nightly. Yes topiramate (TOPAMAX) 50 mg Tablet Take 50 mg by mouth 2 times daily. Yes milnacipran (SAVELLA) 50 mg Tablet Take 50 mg by mouth 2 times daily. Yes omeprazole (PRILOSEC) 20 mg Capsule, Delayed Release(E.C.) Take 20 mg by mouth nightly. Yes Mometasone 50 mcg/actuation [place], Non-Aerosol 1 spray by Nasal route as needed. Yes Anp-Klifxdtnig-Dvuqjhrtri-Caf 67-297-39-30 mg Capsule Take 1 tablet by mouth every 4 hours as needed. Yes calcium carbonate (TUMS) 200 mg calcium (500 mg) Tablet, Chewable Take 2 tablets by mouth daily as needed. Yes oxyCODONE-acetaminophen (PERCOCET) 10-325 mg Tablet Take 1 tablet by mouth every 6 hours as needed for Pain (no more than 4 per day) for up to 28 days. Indications: Pain Review of Systems Constitutional Denies weight loss or gain, fevers, chills, nightsweats + headaches- Cardiovascular Denies chest pain, palpitations Respiratory Denies cough, SOB, PADRON;; no other URI symptoms GI/ Denies constipation, diarrhea, nausea, vomiting, GERD, incontinence; Musculoskeletal No weakness, falling Neurologic ,No seizures, memory loss. paresthesia Hormonal had tubal ligation in 06/08 Physical Exam Blood pressure 128/75, pulse 97, height 157.5 cm (5' 2), weight 71.668 kg (158 lb), SpO2 100 %, unknown if currently . Constitutional Seen alone, alert and oriented, appears [...] effects from therapy. No concerning behaviors. Plan/Recommendations//Discussion: 1. Discussed MBB-RFA for left sided low back pain- reviewed MRI results and procedure using anatomical model. She had lumbar RFA in [place] at least 3 years ago- doesn't remember if it helped. Discussed risks including infection, bleeding, damage to spinal cord. She is interested in trying procedure. Gave her brochures to read. Will schedule LEFT MBB target L4-5, L5-S1 2. Rheumatology consults pending in March 3. Renew percocet 10/325 NTE 4 per day. Urine screen today- last oxycodone this morning. 4. Will hold off tapering up lyrica dose as she is trying new migraine medications. 5. Discussed medical cannabis as alternative to halfway use of opioids since she is young and opioids have risk with osteoporosis, addiction, etc. She is worried that she won't be able to afford the cannabis. Will continue to explore non-opioid alternatives for her pain management. 6. RV with SAD 28 days 7. Discussed use of naloxone nasal spray in the event of symptoms of overdose of opioid medication.Patient information sheet given to patient. Prescribed: ??? Naloxone 2mg/2ml prefilled syringe, spray ?? into each nostril if overdose. Call 911. Repeat if necessary. #2 ??? MAD (Mucosal Atomization Device) nasal adapter Ghada had an opportunity to ask questions. Ignacia Watts DNP, ANP, CASE LINER documented in this encounter Miscellaneous Notes * Addendum Note - Ignacia Watts APRN - 03/27/2015 5:14 PM ESTAddended by: IGNACIA WATTS on: 03/27/2015 05:14 PM Modules accepted: Orders documented in this encounter Plan of Treatment Upcoming Encounters Date Type Department Care Team (Late st Contact Info) Description 01/24/2024 3:40 PM EDT Office Visit Cardiology at [address] [phone] Rangel Willams MD [facility] [place] [address] Scheduled Referrals Name Type Priority Associated Diagnoses Order Schedule Referral to Rheumatology Outpatient Referral Routine Fibromyalgia Arthralgia Ordered: 03/27/2015 documented as of this encounter Procedures Procedure Name Priority Date/Time Associated Diagnosis Comments DRUG SCREEN WITH CONFIRMATION, URINE (SEND OUT) Routine 03/27/2015 1:35 PM EST terminal gauger current use of opiate analgesic THC (MARIJUANA), URINE, CONFIRMATION Routine 03/27/2015 1:35 PM EST documented in this encounter Results * THC (Marijuana), Urine Confirmation (03/27/2015 1:35 PM EST) U THC Conf Test ? Result ?? Flag ??Unit ?? RefValue Drug of Abuse, THC Conf, U ??GC/MS Confirmation - ? Positive ?THC ??THC Carboxylic Acid ?42 ? ng/mL ??Cutoff:<3 ---ADDITIONAL INFORMATION----- This report is intended for use in clinical monitoring and management of patients. It is not intended for use in employment-relat ed drug testing. Test Performed by: [place] [address] Calciner Operator: Marla Banks, Ph.D. THERESA SANABRIAFORMERLY [facility] Urine specimen (specimen) 03/27/2015 1:35 PM EST 03/27/2015 2:09 PM EST Narrative Resulting Agency Comment Spec In Lab Nicolas Jennings MD LAB SEND OUT ORDERAB LES THERESA HAWTHORNE * Drug Screen with Confirmation, Urine (03/27/2015 1:35 PM EST) U CAM w/Conf Test ? Result ?? Flag ??Unit ?? RefValue --------- Pain Clinic Drug Screen, U ??Amphetamines ? Negative ? ng/mL ??Cutoff: 500 ??Barbiturates ? Negative ? ng/mL ??Cutoff: 200 ??Benzodiazepines ?Negative ? ng/mL ??Cutoff: 200 ??Cocaine Metabolite ? Negative ? ng/mL ??Cutoff: 150 ??Methadone ?Negative ? ng/mL ??Cutoff: 300 ??Opiates ?Negative ? ng/mL ??Cutoff: 300 ??Phencyclidine ?Negative ? [...] drug testing. ??Confirmation - Opiates ?? Positive Discrepancy noted between immunoassay result and LC-MS/MS result. The LC-MS/MS result is the definitive result. ??Codeine ?Negative ? ng/mL ??<100 ??Hydrocodone ?Negative ? ng/mL ??<100 ??Hydromorphone ?Negative ? ng/mL ??<100 ??Morphine ? Negative ? ng/mL ??<100 ??Oxycodone ?133 ?ng/mL ??<100 ??Oxymorphone ?1350 ? ng/mL ??<100 --ADDITIONAL INFORMATION------ This report is intended for use in clinical monitoring and management of patients. It is not intended for use in employment-relate d drug testing. Test Performed by: [place] [address] Calciner Operator: Marla Banks, Ph.D. THERESA ELIJAHFAVIOLA Urine specimen (specimen) 03/27/2015 1:35 PM EST 03/27/2015 2:09 PM EST Narrative Resulting Agency Comment Spec In Lab Nicolas Jennings MD URINE ORDERABLES Performing Organization Address City/State/[facility] Co de Phone Number THERESA HAWTHORNE documented in this encounter Visit Diagnoses Diagnosis Chronic pain syndrome Scoliosis Scoliosis (and kyphoscoliosis), idiopathic terminal gauger current use of opiate analgesic Encounter for long-term (current) use of other medications Chronic low back pain Lumbago Facet arthropathy, lumbosacral Lumbosacral spondylosis without myelopathy Fibromyalgia Mylagia and myositis, unspecified Arthralgia Pain in joint, site unspecified documented in this encounter Care Teams Route Driver Relationship Specialty Start Date End Date Apple Walters APRN PCP - General 01/14/14 06/19/16 documented as of this encounter
--- OUTSIDE RECORDS SUMMARY | 2023-12-27 19:49 | XMS_ITS | Encounter Summary ---
Author Organization [facility] [place] [address] Care Team Providers Care Try Out Person Name Role Phone Apple Walters APRN Primary Care Provider [phone]- [phone] Reason for Referral * Physical Therapy (Routine) - Declined by Patient Specialty Diagnoses / Procedures Referred By Contac t Referred To Contact Physical Therapy Diagnoses Chronic pain syndrome Scoliosis Fibromyalgia Ignacia Watts [facility] [place] [address] Referral ID Status Reason Start Date Expiration Date Visits Requested Visits Authorized [id number] Declined by Patient Evaluate and Treat 02/27/2015 08/26/2015 12 12 Reason for Visit * Reason Comments Flank Pain right side Neck Pain Back Pain low Encounter Details Date Type Department Care Team (Late st Contact Info) Description 02/27/2015 12:00 PM EST Office Visit Pain Management at [place] [phone] Ignacia Watts [facility] [address] Chronic pain syndrome; Scoliosis; Fibromyalgia; Chronic low back pain Social History Tobacco Use Types Packs/Day Years [...] Sign Reading Time Taken Comments Blood Pressure 109/53 02/27/2015 12:05 PM EST Pulse 106 02/27/2015 12:05 PM EST Temperature - - Respiratory Rate 16 02/27/2015 12:05 PM EST Oxygen Saturation 99% 02/27/2015 12:05 PM EST Inhaled Oxygen Concentration - - Weight 72.6 kg (160 lb) 02/27/2015 12:05 PM EST Height 157.5 cm (5' 2) 02/27/2015 12:05 PM EST Body Mass Index 29.26 02/27/2015 12:05 PM EST documented in this encounter Progress Notes * Ignacia Watts, OFFICE HELPER CLERICAL - 02/27/2015 12:10 PM EST PAIN CLINIC FOLLOW-UP Ghada Ervin [phone] Reason for follow-up: Medication management Chronic Opioid Therapy Pain Management Plan signed on 09/17/14 UDT: 01/02/15 findings reflect reported history taken on 01/02 The [place] and [place] Prescription Monitoring Program were checked and no [...] month related to syncopal episode. Interim history Developed abdominal pain RUQ across to umbilicus and right flank; went to [place] ED- CT abdomen,abdominal ultrasound, pelvic ultrasound, blood work, urine tests were all negative. ED provider said may be related to fibromyalgia. Provider in ED called me and we agreed for him to give her oxycodone 5 mg #20 for extra pain. She has been reading a book on fibromyalgia and trying to understand howher symptoms may be related. Has appointment with neurology for migraine management on 03/25 and rheumatology on 03/30. States this has been a difficult month for her. Hasn't been able to get to PT as much as usual. Hasn't seen her counselor recently. Current treatment: Percocet 10/325 no more than 4 per day Physical therapy: ongoing for generalized pain- has been dry needling recently which seems to help ([phone] Mario Desouza or Saira) Gabapentin 300-300-900 Counseling/therapy: KIM Ruffa 50 mg (2) bid xanax 0.5 mg no more than 10 per month for anxiety/sleep- knows not to combine with percocet Marijuana Pain Location: mid lumbar and thoracic spine, and b/l hips Pain Quality is described as constant, achy, constant shooting in the hips Pain Exacerbating/relieving activities: worse with driving, bending, lifting, better with heat and meds Rated as 7/10 on average, 10/10 at worst, at best [...] 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 ondansetron (ZOFRAN) 8 mg Tablet Take 8 mg by mouth every 8 hours as needed for Nausea. Yes oxyCODONE-acetaminophen (PERCOCET) 10-325 mg Tablet Take 1 tablet by mouth every 6 hours as needed for Pain (no more than 4 per day) for up to 28 days. Indications: Pain Yes magnesium 250 mg Tablet Take 250 [...] Take 100 mg by mouth nightly. Yes gabapentin (NEURONTIN) 300 mg Capsule 300-300-300 for 3 days, 300-300-600 for 3 days , then 300-300-900 Patient taking differently: 300-300-900 Yes topiramate (TOPAMAX) 25 mg Tablet Take 50 mg by mouth daily. Yes milnacipran (SAVELLA) 50 mg Tablet Take 50 mg by mouth 2 times daily. Yes omeprazole (PRILOSEC) 20 mg Capsule, Delayed Release(E.C.) Take 20 mg by mouth nightly. Yes Mometasone 50 mcg/actuation [place], Non-Aerosol 1 spray by Nasal route as needed. Yes Wqd-Wpgjpocise-Pnbvrlzibh-Caf 27-175-99-30 mg Capsule Take 1 tablet by mouth every 4 hours as needed. Yes pregabalin (LYRICA) 75 mg Capsule Take 1 capsule by mouth 2 times daily. For 7 days, then increase to 2 tabs twice per day Indications: Fibromyalgia topiramate (TOPAMAX) 50 mg Tablet Take 50 mg by mouth nightly. calcium carbonate (TUMS) 200 mg calcium (500 [...] ligation in 06/08 Physical Exam Blood pressure 109/53, pulse 106, resp. rate 16, height 157.5 cm (5' 2), weight 72.576 kg (160 lb), SpO2 99 %, unknown if currently . Constitutional Seen alone, alert and oriented, appears tired Psychiatric has good eye contact and a full range of affect. Lungs Unlabored respirations; lungs CTA Cardiac RRR without murmur Musculoskeletal Ambulates with out assistive device Assessment: 24 year old with chronic back pain related to scoliosis and Tejeda sonya placement/thoracic spinal fusion and fibromyalgia on percocet 10/325 4 times per day. New abdominal/flank symptoms worked upin ED but no etiology. Is pending neuro and rheumatology consult. She is meeting her functional goals and not experiencing any side effects from therapy. No concerning behaviors. Plan/Recommendations//Discussion: 1. Has MRI scheduled for today to re-evaluate her lumbar spine 2. Neuro and rheumatology consults pending in March 3. Renew percocet 10/325 NTE 4 per day. 4. Discussed switching from gabapentin to lyrica. Her mother uses lyrica with good effect for fibromyalgia. Gave her instructions to taper gabapentin by 1 tablet every 3 days. When off gabapentin, start lyrica 75 mg bid X 7 days, then 150 mg bid. Told her about potential of suicidal thoughts- she knows about this from previous anti-depressants. She knows the signs and will get help if she has thoughts of hurting herself. 5. Discussed medical cannabis as alternative to intermediate designer use of opioids since she is young and opioids have risk with osteoporosis, addiction, etc. She is worried that she won't be able to afford the cannabis. Will continue to explore non-opioid alternatives for her pain management. 6. RV with SAD 28 days 7. Will follow up with PCP regarding abdominal/flank pain, electrolyte deficiencies, and thyroid concerns. Ghada had an opportunity to ask questions. Ignacia Watts DNP, ANP, OFFICE HELPER CLERICAL documented in this encounter Plan of Treatment Upcoming Encounters Date Type Department Care Team (Late st Contact Info) Description 01/24/2024 3:40 PM EDT Office Visit Cardiology at [address] [phone] Rangel Willams MD [facility] [place] [address] Scheduled Referrals Name Type Priority Associated Diagnoses Orde r Schedule Referral to Physical Therapy Outpatient Referral Routine Chronic pain syndrome Scoliosis Fibromyalgia Ordered: 02/27/2015 documented as of this encounter Visit Diagnoses Diagnosis Chronic pain syndrome Scoliosis Scoliosis (and kyphoscoliosis), idiopathic Fibromyalgia Mylagia and myositis, unspecified Chronic low back pain Lumbago documented in this encounter Care Teams Try Out Person Relationship Specialty Start Date End Date Apple Walters APRN PCP - General 01/14/14 06/19/16 documented as of this encounter
--- OUTSIDE RECORDS SUMMARY | 2023-12-27 19:49 | XMS_ITS | Encounter Summary ---
[place] [address] Care Team Providers Care Edi Analyst Name Role Phone Apple Walters Matthias ALVAREZ Primary Care Provider +1- [phone] Encounter Details Date Type Department Care Team (Late st Contact Info) Description 02/10/2015 8:30 AM EDT Procedure visit Cardiology at [address] [phone] Palpitations Social History Tobacco Use Types Packs/Day [...] of this encounter Progress Notes * Danyelle Alexander, ROBERT - 02/11/2015 10:41 AM EDT Duplicate encounter, event monitor given on 02/05 documented in this encounter Plan of Treatment Upcoming Encounters Date Type Department Care Team (Late st Contact Info) Description 01/24/2024 3:40 PM EDT Office Visit Cardiology at [address] [phone] Rangel Willams MD [facility] [place] [address] documented as of this encounter Procedures Procedure Name Priority Date/Time Associated Diagnosis Comments CARDIAC EVENT MONITOR Routine 02/11/2015 10:37 AM EDT Palpitations documented in this encounter Results * Cardiac Event Monitor (02/11/2015 10:37 AM EDT) Anatomical Region Laterality Modality Other Narrative 05/20/2015 6:03 PM [facility] ?EVENT MONITOR REPORT Ordering Physician: ??Roberto Suresh MD Interpreting Physician: Renzo Dinero MD Baseline Date: 02/05/15 Indication for Event Monitor (handheld): ??Palpitations Quality of recordings submitted: [ x] Acceptable [ ??] Moderate artifact [ ??] Considerable artifact Rhythm interpretation: ??2 tracing(s) were submitted for interpretation, including the baseline tracing. Symptom ?Rhythm ? Rate Baseline was submitted during sinus rhythm at 84-97 bpm. ? Fast heart rhythm' ??was submitted during sinus rhythm, rate 88-137 bpm (5 separate 20 second recordings). Conclusion(s): ??Symptoms correlate with NSR or sinus tach. Renzo Dinero MD Arnie Suresh MD CARDIAC SERVICES ORD ERABLES documented in this encounter Visit Diagnoses Diagnosis Palpitations documented in this encounter Care Teams Edi Analyst Relationship Specialty Start Date End Date Apple Walters APRN PCP - General 01/14/14 06/19/16 documented as of this encounter
--- OUTSIDE RECORDS SUMMARY | 2023-12-27 19:49 | XMS_ITS | Encounter Summary ---
[place] [address] Care Team Providers Care Compensation And Hris Analyst Name Role Phone Apple Walters APRN Primary Care Provider [phone]- [phone] Encounter Details Date Type Department Care Team (Late st Contact Info) Description 11/26/2014 Telephone [place] [phone] Lupe Beavers LPN Social History Tobacco Use [...] Telephone Encounter - Lupe Ulloa LPN - 11/26/2014 3:23 PM EDT Received call from patient stating she has another Kidney infection. She was in severe pain during the weekend and wasn't able to call the Pain Clinic (not open) to advise she needed to take more than the prescribed Narcotic for pain control. She went to her MD today and confirmed the kidney infection. Her MD is willing to prescribe more pain medication as long as Ignacia Watts APRN approved. She knows she's going to run out of her medication early and needs more medication. Her pill count is#44. She thinks she has taken 8 extra pills since last week. Reviewed the Narcotic policy she signed in the Pain Clinic. Reviewed Ignacia Watts progress note 11/11/14 which states, I explained that in the future if she goes to ED, she should call us prior to using more than prescribed of her pain medicine. I explained if this happens again, we will stop prescribing opioids for her. Here reply was, I was just in so much pain. Reviewed with Ignacia Watts APRN. She will call patient dillon. documented in this encounter Plan of Treatment Upcoming Encounters Date Type Department Care Team (Late st Contact Info) Description 01/24/2024 3:40 PM EDT Office Visit Cardiology at [address] [phone] Rangel Willams MD [facility] [place] [address] documented as of this encounter Visit Diagnoses Not on filedocumented in this encounter Care Teams Compensation And Hris Analyst Relationship Specialty Start Date End Date Apple Walters APRN PCP - General 01/14/14 06/19/16 documented as of this encounter
--- OUTSIDE RECORDS SUMMARY | 2023-12-27 19:49 | XMS_ITS | Encounter Summary ---
Author Organization [facility] [place] [address] Care Team Providers Care Novelty Twister Tender Name Role Phone Apple Walters APRN Primary Care Provider +1- [phone] Encounter Details Date Type Department Care Team (Late st Contact Info) Description 11/21/2014 Telephone [place] [address] Ignacia Watts APRN [facility] [place] [address] Social History Tobacco Use Types Packs/Day Years [...] Telephone Encounter - Ignacia Watts APRN - 11/21/2014 2:37 PM EDT I discussed Ghada's gabapentin dose with with Apple Walters APRN and we agreed I would take over prescribing her gabapentin since it is part of her pain management. I checked with pharmacist andthere is no interaction with her Topamax. Ghada previously tolerated much higher doses with improved pain relief prior to her . I will ask the nurse to call Ghada and let her know that she can increase it from 100 mg three times per day to 100-100-300 for 5 days, then 100, 300, 300 for 5 days, then 300 three times per day until I see her again. She should be cautioned that it may make her drowsy or off-balance. Ignacia Watts APRN documented in this encounter Plan of Treatment Upcoming Encounters Date Type Department Care Team (Late st Contact Info) Description 01/24/2024 3:40 PM EDT Office Visit Cardiology at [address] [address] Rangel Willams MD [facility] [place] [address] documented as of this encounter Visit Diagnoses Not on filedocumented in this encounter Care Teams Novelty Twister Tender Relationship Specialty Start Date End Date Apple Walters APRN PCP - General 01/14/14 06/19/16 documented as of this encounter
--- OUTSIDE RECORDS SUMMARY | 2023-12-27 19:49 | XMS_ITS | Encounter Summary ---
[place] [address] Care Team Providers Care District Plant Supervisor Name Role Phone RomeoSarahdee dee Rizzo APRN Primary Care Provider +1- [phone] Encounter Details Date Type Department Care Team (Late st Contact Info) Description 02/19/2015 Telephone Cardiology at [address] [phone] Danyelle Alexander RN Social History Tobacco Use Types Packs/Day [...] encounter Miscellaneous Notes * Telephone Encounter - Danyelle Alexander RN - 02/19/2015 10:43 AM EDT Ghada downloaded her event monitor which contained several strips. She is concerned that all were taken at rest, and she feels like her heart rate just takes off making her feel dizzy, like she might pass out. Feeling limited by this, as it is happening a few times a day. Strips show sinus tachycardia up to 137 BPM. Encouraged her to continue to record, will send the data so far to Dr. Suresh to review. documented in this encounter Plan of Treatment Upcoming Encounters Date Type Department Care Team (Late st Contact Info) Description 01/24/2024 3:40 PM EDT Office Visit Cardiology at [address] [phone] Rangel Willams MD [facility] [place] [address] documented as of this encounter Visit Diagnoses Not on filedocumented in this encounter Care Teams District Plant Supervisor Relationship Specialty Start Date End Date Apple Walters APRN PCP - General 01/14/14 06/19/16 documented as of this encounter
--- OUTSIDE RECORDS SUMMARY | 2023-12-27 19:49 | XMS_ITS | Encounter Summary ---
Author Organization [facility] [place] [address] Care Team Providers Care Help Desk Intern Name Role Phone Apple Walters APRN Primary Care Provider +1- [phone] Encounter Details Date Type Department Care Team (Late st Contact Info) Description 01/30/2015 Orders Only [place] [phone] Carolyn Briscoe Social History Tobacco Use Types Packs/Day Years [...] PM EDT Office Visit Cardiology at [address] [phone] Rangel Willams MD [facility] [address] documented as of this encounter Visit Diagnoses Not on filedocumented in this encounter Care Teams Help Desk Intern Relationship Specialty Start Date End Date Apple Walters, AIR COMPRESSOR OPERATOR PCP - General 01/14/14 06/19/16 documented as of this encounter
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
--- OUTSIDE RECORDS SUMMARY | 2023-12-27 19:49 | XMS_ITS | Encounter Summary ---
Author Organization [facility] [place] [address] Care Team Providers Care Telephone Surveyor Name Role Phone Apple Walters Doug ALVAREZ Primary Care Provider +1- [phone] Encounter Details Date Type Department Care Team (Latest Contact Info) Description 03/25/2015 4:15 PM EST Laboratory Appointment Lab [address] [place] [address] Chronic migraine without aura without status migrainosus, [...] PM EDT Office Visit Cardiology at [address] [phone] Rangel Willams MD [facility] [place] [address] documented as of this encounter Procedures Procedure Name Priority Date/Time Associated Diagnosis Comments TSH Routine 03/25/2015 4:25 PM EST Chronic migraine without aura without status migrainosus, not intractable T4, FREE Routine 03/25/2015 4:25 PM EST documented in this encounter Results * T4, free (03/25/2015 4:25 PM EST) Free T4 1.25 0.93 - 1.70 ng/dL CERNER MILLENNIUM Blood specimen (specimen) Venous Draw / Unknown 03/25/2015 4:25 PM EST 03/26/2015 9:49 AM EST Narrative Resulting Agency Comment Spec In Lab Kristi Ritchie MD CHEMISTRY ORDERABLES Performing Organization Address [facility] Co de Phone Number CERNER MILLENNIUM * TSH (03/25/2015 4:25 PM EST) Thyroid Stimulating Hormone 0.39 0.27 - 4.20 mcIU/mL CERNER MILLENNIUM Blood specimen (specimen) 03/25/2015 4:25 PM EST 03/25/2015 4:31 PM EST Narrative Resulting Agency Comment Spec In Lab Kristi Ritchie MD CHEMISTRY ORDERABLES Performing Organization Address [facility] Co de Phone Number [facility] documented in this encounter Visit Diagnoses Diagnosis Chronic migraine without aura without status migrainosus, not intractable Chronic migraine without aura, without mention of intractable migraine without mention of status migrainosus documented in this encounter Care Teams Telephone Surveyor Relationship Specialty Start Date End Date Apple Walters APRN PCP - General 01/14/14 06/19/16 documented as of this encounter
--- OUTSIDE RECORDS SUMMARY | 2023-12-27 19:49 | XMS_ITS | Encounter Summary ---
Author Organization [facility] [place] [address] Care Team Providers Care Package Pick Up Name Role Phone Walters, [place] dee Rizzo APRN Primary Care Provider [phone]- [phone] Reason for Visit * Reason Comments Follow-up 4-6 wk F/U med check . No palpitations chest pain or SOB. with twins. Feeling tired. Close to date of . Encounter Details Date Type Department Care Team (Late st Contact Info) Description 05/08/2014 3:00 PM EST Follow-Up Cardiology at [address] [phone] David Naik Jr., MD [address] [place] [place] [id number] PSVT (paroxysmal supraventricular tachycardia) Social History Tobacco Use Types Packs/Day Years Used Date Smoking Tobacco: Former Cigarettes 0.5 8 Comments:quit 3 months ago Comments Yes Sex and Gender Information Value Date Recorded Sex Assigned at Not on file Gender Identity Not on file Sexual Orientation Not on file documented as of this encounter Last Filed Vital Signs Vital Sign Reading Time Taken Comments Blood Pressure 120/72 05/08/2014 3:06 PM EST sta nding Pulse 86 05/08/2014 2:59 PM EST apica l Temperature - - Respiratory Rate - - Oxygen Saturation - - Inhaled Oxygen Concentration - - Weight 82.5 kg (181 lb 14.4 oz) 05/08/2014 2:59 PM EST Height 157.5 cm (5' 2) 05/08/2014 2:59 PM EST Body Mass Index 33.27 05/08/2014 2:59 PM EST documented in this encounter Progress Notes * David Naik Jr., MD - 05/08/2014 3:21 PM EST Subjective: Patient ID: Ghada Ervin is a 23 y.o. female. Chief Complaint Patient presents with ??? Follow-up 4-6 wk F/U med check. No palpitations chest pain or SOB. with twins. Feeling tired. Close to date of . HPI She has had no palpitations on the current dose of medication. She is tired due to her but is keeping up with her chores and her 2 year old. She denies other symptoms. Review of Systems C section as above Allergies Allergen Reactions ??? Bee Pollen Anaphylaxis ??? Meperidine Hcl flushing, respiratory trouble, Anaphylaxis Current Outpatient Prescriptions Medication Sig Dispense Refill ??? omeprazole (PRILOSEC) 20 mg Capsule, Delayed Release(E.C.) Take 20 mg by mouth daily. ??? metoprolol succinate (TOPROL-XL) 50 mg Tablet Sustained Release 24 hr Take 1 tablet by mouth daily. 90 tablet 3 ??? promethazine (PHENERGAN) 12.5 mg Tablet Take 12.5 mg by mouth every 6 hours as needed. ??? Mometasone 50 mcg/actuation [place], Non-Aerosol 1 spray by Nasal route as needed. ??? Magnesium 250 mg Tablet Take 1 tablet by mouth daily. ??? Awg-Mdgvpcyivv-Zbdunuocqu-Caf 12-851-12-30 mg Capsule Take 1 tablet by mouth every 4 hours as needed. ??? pyridoxine (B-6) 100 mg Tablet Take 100 mg by mouth daily. ??? Vit-Iron Fumarate-FA () 28-0.8 mg Tablet Take 1 tablet by mouth daily. ??? acetaminophen (TYLENOL) 325 mg Tablet Take 650 mg by mouth every 4 hours as needed. ??? calcium carbonate (TUMS) 200 mg calcium (500 mg) Tablet, Chewable Take 2 tablets by mouth daily. ??? FLUoxetine (PROZAC) 20 mg Capsule Take 20 mg by mouth daily. ??? polyethylene glycol (MIRALAX) 17 gram Powder in Packet Take 17 g by mouth daily as needed. No current facility-administered medications for this visit. Patient Active Problem List Diagnosis ??? Heart palpitations Echo: normal heart size and function, trivial MR and TR Loop recorder: SVT rate 212 BPM ??? Chronic pain syndrome ??? Fibromyalgia ??? Migraines Objective: Physical Exam BP 120/72 Pulse 86 Ht 157.5 cm (5' 2) Wt 82.509 kg (181 lb 14.4 oz) BMI 33.26 kg/m2 NAD No JVD/HJR Chest clear Cor RR, 1/6 murmur Abd Ext no edema Assessment and Plan: Controlled SVT- continue metoprolol as is through delivery- will try tapering it off 4 weeks post Follow up 6 weeks documented in this encounter Plan of Treatment Upcoming Encounters Date Type Department Care Team (Late st Contact Info) Description 01/24/2024 3:40 PM EDT Office Visit Cardiology at [address] [phone] [facility] [address] documented as of this encounter Visit Diagnoses Diagnosis PSVT (paroxysmal supraventricular tachycardia) Paroxysmal supraventricular tachycardia documented in this encounter Care Teams Package Pick Up Relationship Specialty Start Date End Date Apple Walters APRN PCP - General 01/14/14 06/19/16 documented as of this encounter
--- OUTSIDE RECORDS SUMMARY | 2023-12-27 19:49 | XMS_ITS | Encounter Summary ---
[place] [address] Care Team Providers Care Investment Specialist Name Role Phone Apple Walters APRN Primary Care Provider [phone]- [phone] Encounter Details Date Type Department Care Team (Late st Contact Info) Description 11/25/2014 Telephone [place] [address] Carolyn Briscoe Social History Tobacco Use Types [...] encounter Miscellaneous Notes * Telephone Encounter - Carolyn Briscoe - 11/25/2014 8:57 AM EDT Ms. Ervin returned nurse, Sandra, call in regards to medication titration. I identified to Ms. Ervin that I was not a nurse and that I am relaying verbatim the recommendation Ignacia Watts APRN has indicated in her chart about titration of her gabapentin. I printed Ignacia's note and mailed it directly to Ms. Ervin as confirmation. documented in this encounter Plan of Treatment Upcoming Encounters Date Type Department Care Team (Late st Contact Info) Description 01/24/2024 3:40 PM EDT Office Visit Cardiology at [address] [phone] Rangel Willams MD [facility] [place] [address] documented as of this encounter Visit Diagnoses Not on filedocumented in this encounter Care Teams Investment Specialist Relationship Specialty Start Date End Date Apple Walters APRN PCP - General 01/14/14 06/19/16 documented as of this encounter
--- OUTSIDE RECORDS SUMMARY | 2023-12-27 19:49 | XMS_ITS | Encounter Summary ---
[place] [address] Care Team Providers Care Consulting Solution Manager Name Role Phone Apple Walters Matthias ALVAREZ Primary Care Provider +1- [phone] Reason for Visit * Reason Onset Date Comments Palpitations 08/28/2014 Encounter Details Date Type Department Care Team (Late st Contact Info) Description 08/28/2014 Telephone Cardiology at [address] [phone] Rebecca Green RN Palpitations Social History Tobacco Use Types Packs/Day Years Used Date Smoking Tobacco: Every Day Cigarettes 0.5 8 Comments:has a few cigarette s a day Comments Yes Sex and Gender Information Value Date Recorded Sex Assigned at Not on file Gender Identity Not on file Sexual Orientation Not on file documented as of this encounter Miscellaneous Notes * Telephone Encounter - Rebecca Green RN - 08/28/2014 3:51 PM EDT Called EP lab - given appt for 10/10 @ 1:10 p.m. Notified patient & she is okay with date. 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 Ablation They can check my notes and scanned strips in EDH * Telephone Encounter - Rebecca Green RN - 08/28/2014 3:08 PM EDT Patient called because she is having increasing episodes of palpitations with heart rates up . She is taking her meds as directed. She said you had discussed her going to [facility] for further evaluation & tx. She is willing to do that. These epidsodes are happening daily & sometimes several times a day. documented in this encounter Plan of Treatment Upcoming Encounters Date Type Department Care Team (Late st Contact Info) Description 01/24/2024 3:40 PM EDT Office Visit Cardiology at [address] [phone] Rangel Willams MD [facility] [place] [address] documented as of this encounter Visit Diagnoses Not on filedocumented in this encounter Care Teams Consulting Solution Manager Relationship Specialty Start Date End Date Apple Walters APRN PCP - General 01/14/14 06/19/16 documented as of this encounter
--- OUTSIDE RECORDS SUMMARY | 2023-12-27 19:49 | XMS_ITS | Encounter Summary ---
[place] [address] Care Team Providers Care Release Specialist Name Role Phone WaltersApple johnson Matthias ALVAREZ Primary Care Provider +1- [phone] Encounter Details Date Type Department Care Team ([facility] Contact Info) Description 10/13/2014 Telephone Cardiology at [address] [phone] David Naik Jr., MD [address] [place] [id number] Social History Tobacco Use Types Packs/Day Years Used Date Smoking Tobacco: Every Day Cigarettes 0.5 8 Smokeless Tobacco: Never Comments:has a few cigarette s a day Comments Yes Sex and Gender Information Value Date Recorded Sex Assigned at Not on file Gender Identity Not on file Sexual Orientation Not on file documented as of this encounter Miscellaneous Notes * Telephone Encounter - Tere Naik RN - 10/13/2014 4:34 PM EDT Pt called back. States her phones are not available now due to finances. We can reach her at her mom's. I told her we cancelled her appt but would follow up with her after the ablation. * Telephone Encounter - Tere Naik RN - 10/13/2014 4:29 PM EDT Tried to reach pt at her mother's house. No answer. Tried pt's home phone. Disconnected and her cell phone is not accepting messages at this time. Will try again. * Telephone Encounter - David Naik Jr., MD - 10/13/2014 3:28 PM EDT Ok to cancel the appt with me- I will follow up after the ablation * Telephone Encounter - Josette Aleman - 10/13/2014 11:51 AM EDT Pt called asking if she needs to keep her appt. for 10/16/14 as she was at [facility] for a consult with Dr Car about having an Ablation. She is waiting for them to call with the appt. Pt can be reached at [phone] and can speak to Mom. documented in this encounter Plan of Treatment Upcoming Encounters Date Type Department Care Team (Late st Contact Info) Description 01/24/2024 3:40 PM EDT Office Visit Cardiology at [address] [phone] Rangel Willams MD [facility] [place] [address] documented as of this encounter Visit Diagnoses Not on filedocumented in this encounter Care Teams Release Specialist Relationship Specialty Start Date End Date Apple Walters APRN PCP - General 01/14/14 06/19/16 documented as of this encounter
--- OUTSIDE RECORDS SUMMARY | 2023-12-27 19:49 | XMS_ITS | Encounter Summary ---
Author Organization [facility] [place] [address] Care Team Providers Care Solvent Mixer Name Role Phone Stephanie Quiñonez APRN Primary Care Provider +1- [phone] Reason for Referral * Diagnostic Test (Routine) - Specialty Diagnoses / Procedures Referred By Contac t Referred To Contact Radiology Diagnoses Lumbar pain with radiation down both legs Chronic low back pain Scoliosis Procedures MRI Lumbar Spine Without Contrast (GENERIC) Ignacia Watts APRN [facility] [place] [address] [place] [address] Referral ID Status Reason Start Date Expiration Date Visits Requested Visits Authorized [id number] Specialty Service Requested 01/21/2016 04/20/2016 1 1 Reason for Visit * MRI/CAT Scan (Routine) - Closed Specialty Diagnoses / Procedures Referred By Contac t Referred To Contact Radiology Diagnoses Lumbar pain with radiation down both legs Procedures PRG MRI LUMBAR SPINE W/O&W CONTRAST PRG MRI CERVICAL SPINE Luis Enrique Contreras MD [facility] [place] [address] [place] [address] Referral ID Status Reason Start Date Expiration Date Visits Re quested Visits Authorized [id number] Closed 02/19/2015 05/20/2015 2 2 Encounter Details Date Type Department Care Team (Latest Contact Info) Description 02/27/2015 1:34 PM EST - 02/27/2015 1:35 PM EST Hospital [place] [address] Luis Enrique Contreras MD [facility] [place] [address] Chronic pain syndrome; Scoliosis; Cervicalgia; Radiculopathy of cervical region; Lumbar pain with radiation down both legs; Chronic low back pain Discharge Disposition: Home Social History Tobacco Use [...] as of this encounter Progress Notes * Radha Burns RN - 02/27/2015 4:12 PM EST [facility] 02/27/15 1500 Ghada Ervin was here at [facility] for a MRI of her lumbar and cervical spine and was medicated with Ativan 2 mg for claustrophobia. Yoselin Burns RN [phone] * Radha Burns RN - 02/24/2015 10:39 AM EST VIR MRI PRE-SEDATION ASSESSMENT NOTE NAME: Ghada Ervin AGE: 24 y.o. : 1990 [address] [place] [id number] Female [phone] (home) Telephone Information: STEPHANIE QUIÑONEZ APRN None Allergies Allergen Reactions ??? Bee Pollen Anaphylaxis ??? Meperidine Hcl Anaphylaxis and Other (See Comments) flushing, respiratory trouble ??? [place] Other (See Comments) Flu like sx ??? Zoloft [Sertraline] Other (See Comments) Flu like sx Date/Time of call: February 24, 2015/10:39 AM/ PREVIOUS MRI SCAN? OSH 2-3 times HEIGHT: 5'2 WEIGHT: 155lb SCHEDULED SCAN: MRI Lumbar and Cervical Spine Without Contrast (40-80 min, head first, supine) SUBJECTIVE: I need sedation to help relax for the pain CAN YOU LAY FLAT? Yes, but it hurts after 15-20 min due to scoliosis and 2 Tejeda rods at T3-T12 DO YOU HAVE ANY PAIN ISSUES? Yes, back, taking percocet ASSESSMENT: appropriate for PO sedation per protocol PLAN: Ativan 1-2 mg PO Guidelines for MRI Pre-Procedures Laboratory Studies: GFR Date of lab draw 1. Creatinine studies (GFR level needed) within 90 days of scan ??? 70 yo or older if they are getting contrast ??? 50 years and older if they are diabetic and getting contrast ( XXX ) You must have a hydraulic lift driver present when you check in. This patient has been informed that they require a hydraulic lift driver to drive them home after this procedure. In the absence of a hydraulic lift driver, IR will not beable to sedate for your scan. Pt verbalized understanding of these instructions during the pre-procedure education via phone. Yes x [employer] of hydraulic lift driver: either MOM or friend Altaf Phone number PRIOR SCAN DATE/S SEDATION TYPE SUCCESSFUL OSH yes 02/27/15 MRI lumbar and cervical spine Ativan 2 mg po yes PT STATED TO FUR GLAZER THAT THE SEDATION WAS EFFECTIVE FOR SCAN: Y N COMMENTS: documented in this encounter Plan of Treatment Upcoming Encounters Date Type Department Care Team (Late st Contact Info) Description 01/24/2024 3:40 PM EDT Office Visit Cardiology at [address] [phone] Rangel Willams MD [facility] [place] [address] documented as of this encounter Procedures Procedure [...] the clinical situation (Reference- Abivik et al, [id number]). Findings: (Prevalence in patients without low back pain), discdegeneration (decreased T2 signal, height loss, bulge) (91%), disc T2-signal loss(83%), disc height loss (56%), disc bulge (64%), disc protrusion (32%), annularfissure (38%). Luis Enrique Contreras MD IMG MRI ORDERABLE S * MRI Cervical Spine [...] Normal MRI of cervical spine Luis Enrique Contreras MD IM MRI ORDERABLE S documented in this encounter Visit Diagnoses Diagnosis Chronic pain syndrome Scoliosis Scoliosis (and kyphoscoliosis), idiopathic Cervicalgia Radiculopathy of cervical region Brachial neuritis or radiculitis nos Lumbar pain with radiation down both legs Lumbago Chronic low back pain Lumbago documented in this encounter Administered Medications Inactive Administered Medications - up to 3 most recent administrations Medication Order MAR Action Action Date Dose Rate Site LORazepam (ATIVAN) tablet 1-2 mg 1-2 mg, Oral, ONCE PRN, 2 doses, Starting on Mon02/27/15 at 0741, Until Mon02/27/15 at 1409, Anxiety, Angio/IR (Day of Procedure), Routine Given 02/27/2015 2:09 PM EST 1 mg Given 02/27/2015 1:35 PM EST 1 mg documented in this encounter Care Teams Solvent Mixer Relationship Specialty Start Date End Date Stephanie Quiñonez APRN PCP - General 01/14/14 06/19/16 documented as of this encounter
--- OUTSIDE RECORDS SUMMARY | 2023-12-27 19:49 | XMS_ITS | Encounter Summary ---
[place] [address] Care Team Providers Care Director Life Sales Name Role Phone Apple Walters APRN Primary Care Provider [phone]- [phone] Reason for Referral * Consultation (Routine) - Closed Specialty Diagnoses / Procedures Referred By Lang sanches Referred To Contact Neurology Diagnoses Cervicalgia Intractable migraine with aura without status migrainosus Ignacia Watts AIRPORT MAINTENANCE LABORER [facility] [place] [address] [facility] Neu[facility] [address] [place] [phone] Referral ID Status Reason Start Date Expiration Date V isits Requested Visits Authorized [id number] Closed Consult, Test & Treat 01/02/2015 01/02/2016 1 1 Reason for Visit * Reason Comments Pain Management Back Pain Encounter Details Date Type Department Care Team (Late st Contact Info) Description 01/02/2015 12:45 PM EDT [place] [address] Ignacia Watts AIRPORT MAINTENANCE LABORER [facility] [address] Chronic pain syndrome; Scoliosis; Encounter for long-term (current) use of other medications; Cervicalgia; Radiculopathy of cervical region; Chronic, continuous use of opioids; Intractable migraine with aura without status migrainosus Discharge Disposition: Home Social History Tobacco Use [...] Sign Reading Time Taken Comments Blood Pressure 118/82 01/02/2015 1:04 PM EDT Pulse 105 01/02/2015 1:04 PM EDT Temperature - - Respiratory Rate - - Oxygen Saturation 100% 01/02/2015 1:04 PM EDT Inhaled Oxygen Concentration - - Weight 71.7 kg (158 lb) 01/02/2015 1:04 PM EDT Height 172.7 cm (5' 8) 01/02/2015 1:04 PM EDT Body Mass Index 24.02 01/02/2015 1:04 PM EDT documented in this encounter Progress Notes * Ignacia Watts APRN - 01/08/2015 6:22 PM EDTQuick Note: Urine results consistent with patient reported history on date of this test Ignacia Watts DNP, ANP-CS, AIRPORT MAINTENANCE LABORER Nurse Practitioner [facility] * Ignacia Watts APRN - 01/02/2015 1:14 PM EDT PAIN CLINIC FOLLOW-UP Ghada Ervin [id number] Reason for follow-up: Medication management Chronic Opioid Therapy Pain Management Plan signed on 09/17/14 UDT: 10/14/14 15 findings reflect reported history on 10/14 The [place] and [place] Prescription Monitoring Program were checked and no issues were found. Chief Complaint: Follow up chronic back pain due to thoracic fusion for scoliosis. History of Present Illness/Interval History: Ms. Ervin [...] meeting goals and not experiencing side effects. 01/02/15: Has significant migraine today and past 2 days; saw neurologist in [place] in past for migraines- uses topomax and fiorinal as needed. They seem to occur in clusters. Has sensitivity to light, noise, and nausea. Wonders if it is related to her neck pain- describes pain as coming up from neck, sub occipital area, bilateral around ears to frontal area; complains of stiffness in her neck,tries to get comfortable with various pillows.; has intermittent numbness of pinky and ring finger bilaterally- right worse than left; PT has been working on her trapezius muscles and dry needling without relief. Increasing gabapentin dose has helped her bilateral hip and low back discomfort- she is no longer dizzy from it. Continues to work with her therapist, Stephanie Banegas APRN on her anxiety and fibromyalgia and physical therapist for muscle spasms and fibromyalgia symptoms. Xanax was added to her regimen for acute panic episodes. She continues to care for her three children and lifts her 14 pound 2 year old multiple times in a day. Has not resumed smoking. 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 Has job applications in for several research center partner jobs. Current treatment: (40% relief with current regimen) Percocet 10/325 no more than 4 per day Physical therapy: ongoing for generalized pain- has been dry needling recently which seems to help Gabapentin 300-300-600 Pain Location: mid lumbar and thoracic spine, [...] is also walking daily with her childern ALPRAZolam (XANAX) 0.5 mg Tablet; nitrofurantoin (MACRODANTIN) 100 mg Capsule; gabapentin (NEURONTIN) 300 mg Capsule; topiramate (TOPAMAX) 25 mg Tablet; topiramate (TOPAMAX) 50 mg Tablet; milnacipran(SAVELLA) 50 mg Tablet; omeprazole (PRILOSEC) 20 mg Capsule, Delayed Release(E.C.); metoprolol succinate (TOPROL- XL) 50 mg Tablet Sustained Release 24 hr; Mometasone 50 mcg/actuation [place], Non-Aerosol calcium carbonate (TUMS) 200 mg calcium (500 mg) Tablet, Chewable; oxyCODONE- acetaminophen (PERCOCET) 10-325 mg Tablet; Hej-Dubmotwccu-Ppzwgnomnz-Caf 39-930-91-30 mg Capsule Review of Systems Constitutional Denies weight loss or gain, fevers, chills, nightsweats + headaches- see HPI Cardiovascular Denies chest pain, + palpitations.(is scheduled for cardiac ablation) Respiratory Denies cough, SOB, PADRON;; no other URI symptoms GI/ Denies constipation, diarrhea, nausea, vomiting, GERD, incontinence; see HPI for urinary symptoms Musculoskeletal No weakness, falling Neurologic Denies fainting spells, seizures, memory loss. Denies numbness or paresthesia Hormonal LMP 11/05- had tubal ligation in 06/08 Physical Exam Blood pressure 118/82, pulse 105, height 172.7 cm (5' 8), weight 71.668 kg (158 lb), last menstrual period 10/30/2014, SpO2 100 %. Constitutional Ghada Ervin is seen today dressed appropriately for the weather with good hygiene. Squinting eyes with bright light Psychiatric has good eye contact and a full range of affect. Lungs Unlabored respirations; lungs CTA Cardiac RRR without murmur Musculoskeletal Limited ROM with neck- flexion/extension- more pain on right side with extension; facet loading test + pain right side neck and arm symptoms on right side; +2 bilateral ulnar/forearm reflexes; full strength bilateral arms/hands and no Carranza's sign; no sensory changes bilateral UE Assessment 24 year old with chronic back pain related to scoliosis and Tejeda sonya placement/thoracic spinal fusion and fibromyalgia on percocet 10/325 4 times per day. She is meeting her functional goals and not experiencing any side effects from therapy. However, she has increasing neck pain with radiculopathy symptoms that may or may not be contributing to migraine headaches. Recommendations/Plan 1. Renewed percocet 10/325 NTE 4 per day for 28 days. UDT today 2. MRI cervical spine and lumbar spine- we originally ordered lumbar spine in Aug, 2014 since her last MRI was in 2012- but this was never done- she will do it locally. 3. She agrees to referral to neurology headache clinic at for migraines- question if better medication/injectio regimen for her 4. Follow up 28 days with me. 5. I will call her PT to coordinate care ([phone] Mario Desouza or Saira) 6. Explained that she should not take the xanax with her percocet as they can cause her to be too sedated and slow down breathing. She states she understands. Ghada had an opportunity to ask questions. Ignacia Watts, MICHAEL, ANP, AIRPORT MAINTENANCE LABORER documented in this encounter Plan of Treatment Upcoming Encounters Date Type Department Care Team (Late st Contact Info) Description 01/24/2024 3:40 PM EDT Office Visit Cardiology at [address] [address] Rangel Willams MD [facility] [place] [address] Scheduled Referrals Name Type Priority Associated Diagnoses Orde r Schedule Referral to Neurology Outpatient Referral Routine Cervicalgia Intractable migraine with aura without status migrainosus Ordered: 01/02/2015 documented as of this encounter Procedures Procedure Name Priority Date/Time Associated Diagnosis Comments DRUG SCREEN WITH CONFIRMATION, URINE (SEND OUT) Routine 01/02/2015 1:50 PM EDT Chronic, continuous use of opioids THC (MARIJUANA), URINE, CONFIRMATION Routine 01/02/2015 1:50 PM EDT BENZODIAZEPINE, URINE CONFIRMATION Routine 01/02/2015 1:50 PM EDT BARBITURATE, URINE, CONFIRMATION Routine 01/02/2015 1:50 PM EDT documented in this encounter Results * MRI Cervical Spine WO Contrast (02/27/2015 [...] IMPRESSION: Normal MRI of cervical spine Luis Enriqeu Contreras MD IMG MRI ORDERABLE S * Barbiturate, Urine Confirmation (01/02/2015 1:50 PM EDT) U Stacey Conf Test ?Result ?? Flag ??Unit ?? RefValue Drug of Abuse, Barbiturate Conf, U ??GC/MS Confirmation - ?Positive ?Barbiturate ??Amobarbital ? Negative ? ng/mL ??Cutoff: <100 ??Butalbital ?678 ?ng/mL ??Cutoff: <100 ??Pentobarbital ? Negative ? ng/mL ??Cutoff: <100 ??Phenobarbital ? Negative ? ng/mL ??Cutoff: <100 ??Secobarbital ?Negative ? ng/mL ??Cutoff: <100 ---ADDITIONAL INFORMATION----- This report is intended for use in clinical monitoring and management of patients. It is not intended for use in employment-relat ed drug testing. Test Performed by: [facility] [address], [place] [address] Caddy Master: Marla Banks, Ph.D. THERESA HAWTHORNE Urine specimen (specimen) 01/02/2015 1:50 PM EDT 01/02/2015 3:40 PM EDT Narrative Resulting Agency Comment Spec In Lab Luis Enrique Contreras MD LAB SEND OUT [facility] * Benzodiazepine, Urine Quantitative (01/02/2015 1:50 PM EDT) U Benzo Conf Test ?Result ?? Flag ??Unit ?? RefValue Drug of Abuse, Benzo Conf, U ??GC/MS Confirmation - ?Positive ?Benzodiazepine ??Lorazepam ? Negative ? ng/mL ??Cutoff: <100 ??Nordiazepam ? 148 ?ng/mL ??Cutoff: <100 ??Oxazepam ?417 ?ng/mL ??Cutoff: <100 ??Temazepam ? 316 ?ng/mL ??Cutoff: <100 ??WC-Fpfss-Mkceh zepam ? Negative ? ng/mL ??Cutoff: <100 ??6-TX-Ytwjhuunh m ? Negative ? ng/mL ??Cutoff: <100 ??5-LO-Obtrxbphx epam ?Negative ? ng/mL ??Cutoff: <50 ??Alpha OH-Alprazolam ? Negative ? ng/mL ??Cutoff: <100 ??Bntgg-AB-Uihxb olam ?Negative ? ng/mL ??Cutoff: <100 ---ADDITIONAL INFORMATION----- This report is intended for use in clinical monitoring and management of patients. It is not intended for use in employment-relat ed drug testing. Test Performed by: [place] [address] Caddy Master: Marla Banks, Ph.D. THERESA HAWTHORNE Urine specimen (specimen) 01/02/2015 1:50 PM EDT 01/02/2015 3:40 PM EDT Narrative Resulting Agency Comment Spec In Lab Luis Enrique Contreras MD LAB SEND OUT [facility] Organization Address City/State/ZIP Co de Phone Number THERESA HAWTHORNE * THC (Marijuana), Urine Confirmation (01/02/2015 1:50 PM EDT) U THC Conf Test ?Result ?? Flag ??Unit ?? RefValue Drug of Abuse, THC Conf, U ??GC/MS Confirmation - ?Positive ?THC ??THC Carboxylic Acid ? 101 ?ng/mL ??Cutoff:<3 ---ADDITIONAL INFORMATION----- This report is intended for use in clinical monitoring and management of patients. It is not intended for use in employment-relat ed drug testing. Test Performed by: [facility] [employer] [address] [address] Caddy Master: Marla Banks, Ph.D. THERESA HAWTHORNE Urine specimen (specimen) 01/02/2015 1:50 PM EDT 01/02/2015 3:40 PM EDT Narrative Resulting Agency Comment Spec In Lab Luis Enrique Contreras MD LAB SEND OUT [facility] [place] [facility] * Drug Screen with Confirmation, Urine (01/02/2015 1:50 PM EDT) U CAM w/Conf Test ?Result ?? Flag ??Unit ?? RefValue --------- Pain Clinic Drug Screen, U ??Amphetamines ?Negative ? ng/mL ??Cutoff: 500 ??Barbiturates ?Positive ? ng/mL ??Cutoff: 200 ??Benzodiazepines ? Positive ? ng/mL ??Cutoff: 200 ??Cocaine Metabolite ?Negative [...] ??Morphine ?Negative ? ng/mL ??<100 ??Oxycodone ? 1030 ? ng/mL ??<100 ??Oxymorphone ? 2730 ? ng/mL ??<100 --ADDITIONAL INFORMATION------ This report is intended for use in clinical monitoring and management of patients. It is not intended for use in employment-relate d drug testing. Test Performed by: [facility] [place] [address] Caddy Master: Marla Banks, Ph.D. THERESA HAWTHORNE Urine specimen (specimen) 01/02/2015 1:50 PM EDT 01/02/2015 3:40 PM EDT Narrative Resulting Agency Comment Spec In Lab Luis Enrique Contreras MD URINE ORDERABLES THERESA HAWTHORNE documented in this encounter Visit Diagnoses Diagnosis Chronic pain syndrome Scoliosis Scoliosis (and kyphoscoliosis), idiopathic Encounter for long-term (current) use of other medications Cervicalgia Radiculopathy of cervical region Brachial neuritis or radiculitis nos Chronic, continuous use of opioids Opioid type dependence, continuous Intractable migraine with aura without status migrainosus Migraine with aura, with intractable migraine, so stated, without mention of status migrainosus Chronic pain syndrome Scoliosis Scoliosis (and kyphoscoliosis), idiopathic Cervicalgia Radiculopathy of cervical region Brachial neuritis or radiculitis nos Lumbar pain with radiation down both legs Lumbago Chronic low back pain Lumbago documented in this encounter Care Teams Director Life Sales Relationship Specialty Start Date End Date Apple Walters APRN PCP - General 01/14/14 06/19/16 documented as of this encounter
--- OUTSIDE RECORDS SUMMARY | 2023-12-27 19:49 | XMS_ITS | Encounter Summary ---
Author Organization [facility] [place] [address] Care Team Providers Care Change Booth Attendant Name Role Phone Apple Walters APRN Primary Care Provider +1- [phone] Encounter Details Date Type Department Care Team (Late st Contact Info) Description 01/30/2015 1:15 PM EDT Office [place] [address] Ignacia Florentino WAREHOUSE DELIVERY DRIVER [facility] [place] [address] Chronic pain syndrome; Scoliosis; Chronic low back pain; Fibromyalgia Social History Tobacco Use [...] Sign Reading Time Taken Comments Blood Pressure 130/85 01/30/2015 1:28 PM EDT Pulse 90 01/30/2015 1:28 PM EDT Temperature - - Respiratory Rate - - Oxygen Saturation 99% 01/30/2015 1:28 PM EDT Inhaled Oxygen Concentration - - Weight 72 kg (158 lb 12.8 oz) 01/30/2015 1:28 PM EDT Height 157.5 cm (5' 2) 01/30/2015 1:28 PM EDT Body Mass Index 29.04 01/30/2015 1:28 PM EDT documented in this encounter Progress Notes * Ignacia Florentino APRN - 01/30/2015 1:55 PM EDT PAIN CLINIC FOLLOW-UP Ghada Ervin [id number] Reason for follow-up: Medication management Chronic Opioid Therapy Pain Management Plan signed on 09/17/14 UDT: 01/02/15 findings reflect reported history taken on 01/02 The [place] and [place] Prescription Monitoring Program were checked and no [...] migraines and was referred to neurology clinic but has not heard about appointment. 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 magnesium 250 mg Tablet Take 250 mg by mouth 2 times daily. Yes potassium chloride (KLOR-CON M20) 20 mEq Tab Sust.Rel. Particle/Crystal Take 20 mEq by mouth 2 times daily. Yes oxyCODONE-acetaminophen (PERCOCET) 10-325 mg Tablet Take 1 tablet by mouth every 6 hours as needed for Pain (no more than 4 per day) for up to 28 days. Indications: Pain Yes ALPRAZolam (XANAX) 0.5 mg Tablet Take [...] Take 50 mg by mouth daily. Yes topiramate (TOPAMAX) 50 mg Tablet Take 50 mg by mouth nightly. Yes milnacipran (SAVELLA) 50 mg Tablet Take 50 mg by mouth 2 times daily. Yes omeprazole (PRILOSEC) 20 mg Capsule, Delayed Release(E.C.) Take 20 mg by mouth nightly. Yes Mometasone 50 mcg/actuation [place], Non-Aerosol 1 spray by Nasal route as needed. Yes Hhn-Bnvuhklacd-Vozxnnvkzo-Caf 73-727-09-30 mg Capsule Take 1 tablet by mouth [...] GERD, incontinence; Musculoskeletal No weakness, falling Neurologic + syncopal episode (see interim hx) , No seizures, memory loss. paresthesia Hormonal LMP 01/06- had tubal ligation in 06/08 Physical Exam Blood pressure 130/85, pulse 90, height 157.5 cm (5' 2), weight 72.031 kg (158 lb 12.8 oz), SpO2 99 %, unknown if currently . Constitutional Ghada Ervin is seen today dressed appropriately for the weather with good hygiene. Psychiatric has good eye contact and a [...] from therapy. No concerning behaviors. Plan/Recommendations//Discussion: 1. Asked our secretarial staff to please follow up from last month: - MRI cervical spine and lumbar spine- - referral to neurology headache clinic at for migraines 2. Ask PCP about referral to rheumatology Dr. Bessie Patton (speciaizes in fibromyalgia diagnosis) 3. Renew percocet 10/325 NTE 4 per day 4. RV with SAD 28 days Ghada had an opportunity to ask questions. Ignacia Florentino, MICHAEL, ANP, WAREHOUSE DELIVERY DRIVER documented in this encounter Plan of Treatment Upcoming Encounters Date Type Department Care Team (Late st Contact Info) Description 01/24/2024 3:40 PM EDT Office Visit Cardiology at [address] [phone] Rangel Willams MD [facility] [place] [address] documented as of this encounter Visit Diagnoses Diagnosis Chronic pain syndrome Scoliosis Scoliosis (and kyphoscoliosis), idiopathic Chronic low back pain Lumbago Fibromyalgia Mylagia and myositis, unspecified documented in this encounter Care Teams Change Booth Attendant Relationship Specialty Start Date End Date Apple Walters APRN PCP - General 01/14/14 06/19/16 documented as of this encounter
--- OUTSIDE RECORDS SUMMARY | 2023-12-27 19:49 | XMS_ITS | Encounter Summary ---
Author Organization [facility] [place] [address] Care Team Providers Care Extension Service Specialist In Charge Name Role Phone Apple Walters APRN Primary Care Provider +1- [phone] Reason for Referral * Physical Therapy (Routine) - Closed Specialty Diagnoses / Procedures Referred By Lang sanches Referred To Contact Diagnoses Chronic pain syndrome Scoliosis Muscle pain Ignacia Florentino [facility] [address] Physical Therapy, [address] [address] Referral ID Status Reason Start Date Expiration Date V isits Requested Visits Authorized [id number] Closed Evaluate and Treat 12/05/2014 06/03/2015 12 12 Reason for Visit * Reason Comments Pain Management Back Pain Encounter Details Date Type Department Care Team ([facility] Contact Info) Description 12/05/2014 2:15 PM EDT Follow-[place] [address] Ignacia Florentino [facility] [address] Chronic pain syndrome; Scoliosis; Encounter for long-term (current) use of other medications; Muscle pain; Fibromyalgia Discharge Disposition: Home Social History Tobacco Use [...] Sign Reading Time Taken Comments Blood Pressure 134/67 12/05/2014 2:46 PM EDT Pulse 105 12/05/2014 2:46 PM EDT Temperature - - Respiratory Rate - - Oxygen Saturation 100% 12/05/2014 2:46 PM EDT Inhaled Oxygen Concentration - - Weight 70.3 kg (155 lb) 12/05/2014 2:46 PM EDT Height - - Body Mass Index 28.35 11/11/2014 1:20 PM EDT documented in this encounter Progress Notes * Ignacia Florentino APRN - 12/05/2014 2:45 PM EDT PAIN CLINIC FOLLOW-UP Ghaad Ervin [id number] Reason for follow-up: Medication management Chronic Opioid Therapy Pain Management Plan signed on 09/17/14 UDT: 10/14/14 findings reflect reported history on 10/14 The [place] and [place] Prescription Monitoring Program were checked and no [...] Contreras on 09/19/14. We agreed to prescribe opioidsas long as she is meeting goals and not experiencing side effects. Over the weekend of 11/23, she was seen again in the [facility] ED and diagnosed with UTI and kidney stone. i spoke with her urologist who was performing an IVP on 8l7. He did not want to prescribe additional pain medication since she was under a pain contract with us. I asked Ghada to come in early so we can evaluate her pain and use of percocet, as her prescription will run out early since she took extra for the renal related pain. Stone was removed on 11/28 through basket removal Has UTI- resistant to 2 antibiotics, now on nitrofuratoin 100 mg daily for 6 ; still very tired; Is scheduled to undergo ablation surgery at on 12/09/14 for SVT under general anesthesia. Ghada is working with her therapist, Stephanie Banegas APRN on her anxiety and fibromyalgia, although she had to cancel an appointment due to her illness. She is working with her physical therapist and under goes dry needling that really helps her muscle spasms and fibromyalgia symptoms. She continues to care for her three children and lifts her 14 pound 2 year old multiple times in a day. Ghada was very active in sports and misses being able to be so active. She increased her dose of gabapentin up to 300-300-600, but then she ran out. She was started on savella for fibromyalgia but doesn't think it helps. Gabapentin works best for her. Goals: 1. Quit smoking: Stopped as of 11/09/14 2. Walking with children: is walking and playing with them in yard daily; getting down on the floorto play with them. 3. Dancing; goes out intermittently to dance 4. Job- still working 7 hours per [...] had tubal ligation in 06/08 Physical Exam Last menstrual period 10/30/2014. Constitutional Ghada Ervin is seen today dressed [...] not experiencing any side effects from therapy. She is recovering from chronic UTI and kidney stone removal. Recommendations/Plan 1. Renewed percocet 10/325 NTE 4 per day for 28 days. 2. Encouraged to continue to be active- referral made to continue physical therapy as this is very helpful for her. 3. Prescribed gabapentin- gave her taper schedule up to 300-300-900. She will stop trazodone once she gets up to 600 mg at nightl. 4. Follow up 28 days with . Ghada had an opportunity to ask questions. Ignacia Florentino, MICHAEL, ANP, BOX PRINTER documented in this encounter Plan of Treatment Upcoming Encounters Date Type Department Care Team (Late st Contact Info) Description 01/24/2024 3:40 PM EDT Office Visit Cardiology at [address] [address] Rangel Willams MD [facility] [place] [address] Scheduled Referrals Name Type Priority Associated Diagnoses Orde r Schedule Referral to Physical Therapy Outpatient Referral Routine Chronic pain syndrome Scoliosis Muscle pain Ordered: 12/05/2014 documented as of this encounter Visit Diagnoses Diagnosis Chronic pain syndrome Scoliosis Scoliosis (and kyphoscoliosis), idiopathic Encounter for long-term (current) use of other medications Muscle pain Mylagia and myositis, unspecified Fibromyalgia Mylagia and myositis, unspecified documented in this encounter Care Teams Extension Service Specialist In Charge Relationship Specialty Start Date End Date Apple Walters APRN PCP - General 01/14/14 06/19/16 documented as of this encounter
--- OUTSIDE RECORDS SUMMARY | 2023-12-27 19:49 | XMS_ITS | Encounter Summary ---
Author Organization [facility] [place] [address] Care Team Providers Care Concrete Panel Installer Name Role Phone Apple Walters APRN Primary Care Provider +1- [phone] Encounter Details Date Type Department Care Team (Late st Contact Info) Description 11/27/2014 Telephone [place] [address] Ignacia Watts AIRPORT BAGGAGE SCREENER [facility] [place] [address] Social History Tobacco Use Types Packs/Day Years [...] Telephone Encounter - Ignacia Watts APRN - 11/27/2014 12:34 PM EDT Last night, I spoke with Ghada's urologist at [place], Dr. Greenberg. She has a kidney stone onthe left side at site of bladder/ureter. Also has UTI. He is performing IVP to remove stone on Monday, 11/28. He is not comfortable prescribing pain medicine for her since she is a chronic pain patientand has a contract with us. I spoke with Ghada this afternoon- she has taken approximately 8 extra percocet over the past 5 days for the increased back pain and spasms related to the stone/UTI. Yesterday, she counted 44 tabsleft, which means she would run out on 12/07. I will ask our receptionists to move her 12/09 appointment with me to 12/05 (Monday). I explained to Ghada that I cannot mail her a prescription and I need to re-evaluate her prior to prescribing. Ignacia Watts, DNP, ANP, AIRPORT BAGGAGE SCREENER documented in this encounter Plan of Treatment Upcoming Encounters Date Type Department Care Team (Late st Contact Info) Description 01/24/2024 3:40 PM EDT Office Visit Cardiology at [address] [address] Rangel Willams MD [facility] [place] [address] documented as of this encounter Visit Diagnoses Not on filedocumented in this encounter Care Teams Concrete Panel Installer Relationship Specialty Start Date End Date Apple Walters APRN PCP - General 01/14/14 06/19/16 documented as of this encounter
--- OUTSIDE RECORDS SUMMARY | 2023-12-27 19:49 | XMS_ITS | Encounter Summary ---
Author Organization [facility] [address] Care Team Providers Care Physical Scientist Name Role Phone Walters, Appled[place] dee Rizzo APRN Primary Care Provider [phone]- [phone] Reason for Visit * Reason Comments Follow-up f/u after csection f or twins and to check her palpitations. She did come off metoprolol herself but began having palps again and restarted the metoprolol Encounter Details Date Type Department Care Team (Late st Contact Info) Description 08/11/2014 11:30 AM EDT Follow-Up Cardiology at [address] [phone] David Naik Jr., MD [address] [place] [phone] PSVT (paroxysmal supraventricular tachycardia) Social History Tobacco [...] Sign Reading Time Taken Comments Blood Pressure 128/80 08/11/2014 11:48 AM EDT Pulse 81 08/11/2014 11:48 AM EDT Temperature - - Respiratory Rate - - Oxygen Saturation - - Inhaled Oxygen Concentration - - Weight 73.5 kg (162 lb) 08/11/2014 11:48 AM EDT Height 157.5 cm (5' 2) 08/11/2014 11:48 AM EDT Body Mass Index 29.63 08/11/2014 11:48 AM EDT documented in this encounter Progress Notes * David Naik Jr., MD - 08/11/2014 11:59 AM EDT Subjective: Patient ID: Ghada Ervin is a 23 y.o. female. Chief Complaint Patient presents with ??? Follow-up f/u after csection for twins and to check her palpitations. She did come off metoprolol herself butbegan having palps again and restarted the metoprolol HPI She felt tired after her delivery and tapered off the beta kaitlin. She did fine for a few weeks then started having palpitations again including some long episodes slow to respond to vagal maneuvers. She restarted metoprolol and has had only rare skipped beats since. She is less fatigued now. She denies other symptoms. Review of Systems denies other issues Allergies Allergen Reactions ??? Bee Pollen Anaphylaxis ??? Meperidine Hcl flushing, respiratory trouble, Anaphylaxis Current Outpatient Prescriptions Medication Sig Dispense Refill ??? PREDNISONE ORAL [...] hours as needed. ??? Mometasone 50 mcg/actuation [place], Non-Aerosol 1 spray by Nasal route as needed. ??? Jfz-Xhbopxfksp-Oynhjiedih-Caf 61-032-52-30 mg Capsule Take 1 tablet by mouth every 4 hours as needed. ??? Vit-Iron Fumarate-FA () 28-0.8 mg Tablet Take 1 tablet by mouth daily. ??? acetaminophen (TYLENOL) 325 mg Tablet Take 650 mg by mouth every 4 hours as needed. ??? calcium carbonate (TUMS) 200 mg calcium (500 mg) Tablet, Chewable Take 2 tablets by mouth daily. No current facility-administered medications for this visit. Patient Active Problem List Diagnosis ??? Heart palpitations Echo: normal heart size and function, trivial MR and TR Loop recorder: SVT rate 212 BPM ??? Chronic pain syndrome ??? Fibromyalgia ??? Migraines Objective: Physical Exam BP 128/80 Pulse 81 Ht 157.5 cm (5' 2) Wt 73.483 kg (162 lb) BMI 29.62 kg/m2 NAD No JVD/HJR Chest clear Cor RR, no murmur Abd benign Ext no edema EKG: NSR 81, normal Assessment and Plan: Reentrant SVT currently controlled with beta kaitlin. Reviewed options to consider EP testing and ablation (available now as she is not ) vs continuing beta kaitlin at this dose or trying lower dose. She would like to continue as is for now but will discuss with her family possibly doing ablation in the future. Follow up 2 months documented in this encounter Plan of Treatment Upcoming Encounters Date Type Department Care Team (Late st Contact Info) Description 01/24/2024 3:40 PM EDT Office Visit Cardiology at [address] [address] Rangel Willams MD [facility] [place] [address] documented as of this encounter Visit Diagnoses Diagnosis PSVT (paroxysmal supraventricular tachycardia) Paroxysmal supraventricular tachycardia documented in this encounter Care Teams Physical Scientist Relationship Specialty Start Date End Date Apple Walters APRN PCP - General 01/14/14 06/19/16 documented as of this encounter
--- OUTSIDE RECORDS SUMMARY | 2023-12-27 19:49 | XMS_ITS | Encounter Summary ---
Author Organization [facility] [place] [place] [address] Care Team Providers Care Manager Review Name Role Phone Apple Walters APRN Primary Care Provider +1- [phone] Encounter Details Date Type Department Care Team (Late st Contact Info) Description 02/25/2015 Telephone [place] [address] Ignacia Watts STRUCTURAL IRON WORKER [facility] [place] [address] Social History Tobacco Use Types Packs/Day Years [...] Telephone Encounter - Ignacia Watts APRN - 02/25/2015 3:27 PM EST Received call from [place] ED physicianGhada evaluated for RLQ/RUQ pain- ultrasound negativefor ovarian cyst, CT negative for appendicitis, pyelogram neg; Had previous renal stone on right side on CT scan back in October. In October, she had similar symptoms and underwent IVP for removal left distal calculus. He would like to prescribe oxycodone 5 mg on top of her usual chronic pain medicines. I agreed to this plan. I have a follow up with Ghada on Monday of this week. She has been consistent and compliant with her pain management plan and meeting her functional goals. Ignacia Watts APRN documented in this encounter Plan of Treatment Upcoming Encounters Date Type Department Care Team (Late st Contact Info) Description 01/24/2024 3:40 PM EDT Office Visit Cardiology at [address] [phone] Rangel Willams MD [facility] [place] [address] documented as of this encounter Visit Diagnoses Not on filedocumented in this encounter Care Teams Manager Review Relationship Specialty Start Date End Date Apple Walters APRN PCP - General 01/14/14 06/19/16 documented as of this encounter
--- OUTSIDE RECORDS SUMMARY | 2023-12-27 19:49 | XMS_ITS | Encounter Summary ---
Author Organization [facility] [place] [address] Care Team Providers Care Physical Education Instructor Name Role Phone WaltersApple johnson Doug ALVAREZ Primary Care Provider +1- [phone] Encounter Details Date Type Department Care Team (Late st Contact Info) Description 11/29/2014 [place] [address] Elise Boudreaux MD [facility] [place] [address] Social History Tobacco Use Types Packs/Day Years [...] encounter Miscellaneous Notes * Telephone Encounter - Elise Boudreaux MD - 11/29/2014 7:36 PM EDT Pain clinic note Pain Service contacted by Ms. Ervin. She reports that , due to her pain from her kidney stone, sheis requiring more percocet than originally planned for. Her urologist recommends she take more percocet than she previously had been taking, which will cause her to run out prior to her next appt with Ignacia Florentino. Patient reports that she just recently changed appointments to have an earlier appt with Ignacia. However, with the increase in percocet dosing (the urologist declines the patinet's request to give her more percocets to bridge her to her next pain clinic appt), she will not be able to have enough pills to get to even the earlier appt. Ms Ervin reports that she has enough percocetsto get through the weekend, and therefore has been advised to call back on Monday, to see if Ignacia has another earlier appt that can be arranged, so that she does not run out of pain medication. Patient understands and agrees. documented in this encounter Plan of Treatment Upcoming Encounters Date Type Department Care Team (Late st Contact Info) Description 01/24/2024 3:40 PM EDT Office Visit Cardiology at [address] [address] Rangel Willams MD [facility] [place] [address] documented as of this encounter Visit Diagnoses Not on filedocumented in this encounter Care Teams Physical Education Instructor Relationship Specialty Start Date End Date Apple Walters APRN PCP - General 01/14/14 06/19/16 documented as of this encounter
--- OUTSIDE RECORDS SUMMARY | 2023-12-27 19:49 | XMS_ITS | Encounter Summary ---
Author Organization [facility] [place] [address] Care Team Providers Care Line Operator Name Role Phone Apple Walters KIM Primary Care Provider +1- [phone] Encounter Details Date Type Department Care Team (Late st Contact Info) Description 02/04/2015 Orders Only Cardiology at [address] [phone] Arnie Suresh MD [facility] [place] [address] Palpitations Social History Tobacco Use Types Packs/Day [...] PM EDT Office Visit Cardiology at [address] [phone] Rangel Willams MD [facility] [address] Scheduled Orders Name Type Priority Associated Diagnoses Orde r Schedule Cardiac Event Monitor Cardiac Services Routine Palpitations Expected: 02/05/2015, Expires: 02/05/2016 documented as of this encounter Visit Diagnoses Diagnosis Palpitations documented in this encounter Care Teams Line Operator Relationship Specialty Start Date End Date Apple Walters APRN PCP - General 01/14/14 06/19/16 documented as of this encounter
--- OUTSIDE RECORDS SUMMARY | 2023-12-27 19:50 | XMS_ITS ---
[place] [address] Care Team Providers Care Closing Machine Operator Name Role Phone Alistair Ramos MD Primary Care Provider [phone] Dermatology Status:Enrolled (Active) Start date:03/31/2022 Enrollment date:03/31/2022 Enrollment reason:Enrolled - Currently Fills with Specialty Current support & services provided:Clinical Management, Refill Management Linked medications:ixekizumab (Active) Linked problems:Psoriasis (Active) Continued Care and Services Coordination
--- OUTSIDE RECORDS SUMMARY | 2023-12-27 19:50 | XMS_ITS | Encounter Summary ---
Author Organization [facility] [place] [address] Care Team Providers Care Extrusion Engineer Name Role Phone Apple Walters KIM Primary Care Provider +1- [phone] Encounter Details Date Type Department Care Team (Late st Contact Info) Description 02/03/2014 4:45 PM EDT Ancillary Appointment [facility] [address] [facility] [place] [phone] David Naik Jr., MD [address] [facility] [place] [address] Social History Tobacco Use Types Packs/Day Years [...] PM EDT Office Visit Cardiology at [address] [address] Rangel Willams MD [facility] [place] [address] documented as of this encounter Visit Diagnoses Not on filedocumented in this encounter Care Teams Extrusion Engineer Relationship Specialty Start Date End Date Apple Walters APRN PCP - General 01/14/14 06/19/16 documented as of this encounter
--- OUTSIDE RECORDS SUMMARY | 2023-12-27 19:50 | XMS_ITS | Encounter Summary ---
[place] [address] Care Team Providers Care Direct Marketing Coordinator Name Role Phone Apple Walters KIM Primary Care Provider +1- [phone] Reason for Visit * Reason Onset Date Comments Results 02/11/2014 [email or web address] Encounter Details Date Type Department Care Team (Late Contact Info) Description 02/11/2014 Telephone Cardiology at [address] [address] David Naik Jr., MD [address] [place], [place] [phone] Results ([email or web address]) Social History Tobacco Use Types Packs/Day Years Used Date Smoking Tobacco: Former Cigarettes 0.5 8 Comments:quit 3 months ago Comments Yes Sex and Gender Information Value Date Recorded Sex Assigned at Not on file Gender Identity Not on file Sexual Orientation Not on file documented as of this encounter Miscellaneous Notes * Telephone Encounter - David Naik Jr., MD - 03/19/2014 11:35 AM EST Loop recorder scanned documented in this encounter Plan of Treatment Upcoming Encounters Date Type Department Care Team (Late st Contact Info) Description 01/24/2024 3:40 PM EDT Office Visit Cardiology at [address] [address] Rangel Willams MD [facility] [place] [address] documented as of this encounter Visit Diagnoses Not on filedocumented in this encounter Care Teams Direct Marketing Coordinator Relationship Specialty Start Date End Date Apple Walters APRN PCP - General 01/14/14 06/19/16 documented as of this encounter
--- OUTSIDE RECORDS SUMMARY | 2023-12-27 19:50 | XMS_ITS | Encounter Summary ---
Author Organization [facility] [place] [address] Care Team Providers Care Hotel Services Supervisor Name Role Phone Vikki Oates APRN Primary Care Provider [phone] Encounter Details Date Type Department Care Team (Late st Contact Info) Description 05/06/2010 11:20 AM EST [place] [address] Michelle Curiel, [facility] [place] [address] Discharge Disposition: Home Social History Tobacco Use Types Packs/Day Years Used Date Smoking Tobacco: Never Assessed Sex and Gender Information Value Date Recorded Sex Assigned at Not on file Gender Identity Not on file Sexual Orientation Not on file documented as of this encounter Plan of Treatment Upcoming Encounters Date Type Department Care Team (Late st Contact Info) Description 01/24/2024 3:40 PM EDT Office Visit Cardiology at [address] [phone] Rangel Willams MD [facility] [place] [address] documented as of this encounter Visit Diagnoses Not on filedocumented in this encounter Care Teams Hotel Services Supervisor Relationship Specialty Start Date End Date Vikki Oates APRN [address] [place] [address] PCP - General 03/16/10 07/13/11 documented as of this encounter
--- OUTSIDE RECORDS SUMMARY | 2023-12-27 19:50 | XMS_ITS | Encounter Summary ---
Author Organization [facility] Address [address] [place] [address] Care Team Providers Care Meter Technician Name Role Phone Frances Sorensen MONICA Primary Care Provider [phone] Reason for Visit * Reason Onset Date Comments Appointment Related 12/10/2020 Encounter Details Date Type Department Care Team (Late st Contact Info) Description 12/10/2020 Telephone [facility] Rheumatology & Immunology - [facility] [address] [place], [place] [phone] Jonnathan Villalobos MD [address] [place] [address], [address] [place] [address] Appointment Related Social History Tobacco Use Types Packs/Day Years Used Date Smoking Tobacco: Every Day Cigarettes 0.5 15 Smokeless Tobacco: Never Alcohol Use Standard Drinks/Week Comments Not Currently 0 (1 standard drink = 0.6 oz pur e alcohol) Interpersonal Safety Answer Date Record ed Physically Hurt Never 06/04/2020 Verbally Threaten Not on file 06/04/2020 Sex and Gender Information Value Date Recorded Sex Assigned at Not on file Gender Identity Female 06/04/2020 14:16 EST Sexual Orientation Not on file documented as of this encounter Functional Status Functional Status Response Date of Assess ment Because of a physical, menta l, or emotional condition, does this person have difficulty doing errands alone such as visiting a doctor's office or shopping? Yes 07/24/2020 Cognitive Status Response Date of Assessm ent Because of a physical, menta l, or emotional condition, does this person have serious difficulty concentrating, remembering, or making decisions? Yes 07/24/2020 documented as of this encounter Miscellaneous Notes * Telephone Encounter - Steve Ledezma - 12/10/2020 1059 EDT Patient is requesting that her appt for tomorrow at 3:40pm be switched to a televideo appt. Please advise. documented in this encounter Plan of Treatment Not on file documented as of this encounter Visit Diagnoses Not on filedocumented in this encounter Additional Health Concerns Infection Onset Date Last Indicated Resolved Time COVID-19 02/23/2021 02/23/2021 03/15/2021 22:1 5 EST documented as of this encounter Care Teams Meter Technician Relationship Specialty Start Date End Date Frances Sorensen FNP [address] [phone] PCP - General 06/04/20 documented as of this encounter
--- OUTSIDE RECORDS SUMMARY | 2023-12-27 19:50 | XMS_ITS | Encounter Summary ---
Author Organization [facility] Address [address] [place] [address] Care Team Providers Care Showcase Maker Name Role Phone Frances Sorensen MONICA Primary Care Provider Reason for Visit * (Routine/Next Available) - Receiving Office to Obtain Authorization Specialty Diagnoses / Procedures Referred By Contac t Referred To Contact Procedures CT OUTSIDE IMAGES CHEST Imaging, External Referral ID Status Reason Start Date Expiration Date Visits Requested Visits Authorized [id number] Receiving Office to Obtain Authorization 07/28/2021 1 1 Encounter Details Date Type Department Care Team (Latest Contact Info) Description 07/28/2021 11:57 EDT - 07/28/2021 15:34 EDT Hospital Encounter [facility] [place] Discharge Disposition: Home or Self Care Social History Tobacco Use Types Packs/Day Years [...] 14:16 EST Sexual Orientation Not on file COVID-19 Exposure Response Date Recorded In the last 10 days, have yo u been in contact with someone who was confirmed or suspected to have Coronavirus/COVID-19? Unable to assess 07/28/2021 11:58 EDT documented as of this encounter Functional Status [...] Yes 07/24/2020 documented as of this encounter Medications at Time of Discharge Medication Sig Dispensed Refills Start Date End Date acetaminophen (TYLENOL) 325 mg tablet Take 325 mg by mouth every 6 hours as needed for Pain. Take 1-2 tabs ALBUTEROL SULFATE INHALATION Inhale as directed as needed. cyclobenzaprine (FLEXERIL) 5 mg tablet Take 5 mg by mouth 2 times daily as needed for Muscle Spasms. diphenhydrAMINE (BENADRYL) 25 mg capsule Take 25 mg by mouth. 07/14/19 20 DUCODYL, BISACODYL, ORAL Take by mouth as needed. EPINEPHrine (EPIPEN) 0.3 mg/0.3 mL injection Inject 0.3 mg into the muscle. 11/25/2020 esomeprazole (NEXIUM) 40 mg capsule Take 40 mg by mouth daily. fluticasone propionate (FLOVENT HFA INHALATION) Inhale 2 Puffs as directed twice a week. hydrOXYchloroQUINE (PLAQUENIL) 200 mg tabletIndications:Inflamm atory arthritis Take 2 Tabs by mouth daily. 60 Tab 3 07/24/2020 hydrOXYzine (ATARAX) 25 mg tablet Take 25 mg by mouth as needed for Itching. lisdexamfetamine (VYVANSE) 40 mg capsule Take 40 mg by mouth daily. 04/27/2021 lisinopriL (PRINIVIL) 10 mg tablet Take 10 mg by mouth daily. methadone HCl (METHADONE ORAL) Take 130 mg by mouth daily. Naproxen 375 mg tablet,delayed release (DR/EC) Take 375 mg by mouth 2 times daily as needed for Pain. OLANZapine (ZYPREXA) 15 mg tablet Take 15 mg by mouth daily. 04/26/2021 ondansetron (ZOFRAN) 4 mg tablet Take 8 mg by mouth as needed for Nausea. paroxetine (PAXIL-CR) 25 mg CR tablet Take 25 mg by mouth daily. polyethylene glycol 3350 (MIRALAX ORAL) Take by mouth as needed. predniSONE (DELTASONE) 20 mg tablet Take 40 mg by mouth. 11/25/2020 pregabalin (LYRICA) 150 mg capsule Take 150 mg by mouth 2 times daily. pregabalin (LYRICA) 75 mg capsule Take 75 mg by mouth daily. documented as of this encounter Discharge Disposition Disposition Code Departure Means Destination Home or Self Care documented in this encounter Plan of Treatment Not on file documented as of this encounter Procedures Procedure Name Priority Date/Time Associated Diagnosis Comments CT OUTSIDE IMAGES CHEST Routine 07/28/2021 11:57 EDT documented in this encounter Results * CT OUTSIDE IMAGES CHEST (07/28/2021 11:57 EDT) Narrative 07/28/2021 11:57 EDT This is a non-reportable exam. External Imaging IMG OTHER IMAGING OR DERABLES documented in this encounter Visit Diagnoses Not on filedocumented in this encounter Care Teams Showcase Maker Relationship Specialty Start Date End Date Frances Sorensen FNP [address] [place] [phone] PCP - General 06/04/20 documented as of this encounter
--- OUTSIDE RECORDS SUMMARY | 2023-12-27 19:50 | XMS_ITS | Encounter Summary ---
[place] [address] Care Team Providers Care Management Sme Name Role Phone Apple Walters KIM Primary Care Provider [phone]- [phone] Encounter Details Date Type Department Care Team (Late st Contact Info) Description 01/31/2014 Telephone Cardiology at [address] [phone] David Naik Jr., MD [address] [place] [place] [phone] Social History Tobacco Use Types Packs/Day Years Used Date Smoking Tobacco: Former Cigarettes 0.5 8 Comments:quit 3 months ago Comments Yes Sex and Gender Information Value Date Recorded Sex Assigned at Not on file Gender Identity Not on file Sexual Orientation Not on file documented as of this encounter Miscellaneous Notes * Telephone Encounter - Josette Aleman - 01/31/2014 10:03 AM EDT Pt is having an Echo on 02/03/14 and a MARY put on 02/11/14 both done at the [facility] and the results will depend on the next visit. documented in this encounter Plan of Treatment Upcoming Encounters Date Type Department Care Team (Late st Contact Info) Description 01/24/2024 3:40 PM EDT Office Visit Cardiology at [address] [phone] Rangel Willams MD [facility] [place] [address] documented as of this encounter Visit Diagnoses Not on filedocumented in this encounter Care Teams Management Sme Relationship Specialty Start Date End Date Apple Walters APRN PCP - General 01/14/14 06/19/16 documented as of this encounter
--- OUTSIDE RECORDS SUMMARY | 2023-12-27 19:50 | XMS_ITS | Encounter Summary ---
Author Organization [facility] Address [address] [place] [address] Care Team Providers Care Digital Imager Name Role Phone EduFrances MONICA Primary Care Provider [phone] Encounter Details Date Type Department Care Team (Late st Contact Info) Description 09/12/2022 Lab Requisition [facility] Pathology & Laboratory Medicine - [address] [address] Outr Resulting Lab, Provider Social History Tobacco Use Types Packs/Day Years [...] Yes 07/24/2020 documented as of this encounter Plan of Treatment Not on file documented as of this encounter Procedures Procedure Name Priority Date/Time Associated Diagnosis Comments HCV RNA DETECT QUANT Routine 09/12/2022 13:45 EDT documented in this encounter Results * HCV RNA DETECT QUANT (09/12/2022 13:45 EDT) HCV RNA Qualitative Undetected Undetected 09/14/2022 11:30 EDT [facility] Blood VENOUS BLOOD / Unknown 09/12/2022 13:45 EDT 09/12/2022 21:10 EDT Narrative [facility] - 09/14/2022 11:30 EDT The quantification range of this assay is 15 IU/mL to 100,000,000 IU/mL. Testing was performed using the Pretty HCV test ([employer] with the pretty [employer] System. Provider Outr Resulting Lab CHEMISTRY & BLOOD GAS ORDERABLES [facility] [address] [place] [address] documented in this encounter Visit Diagnoses Not on filedocumented in this encounter Care Teams Digital Imager Relationship Specialty Start Date End Date Frances Sorensen FNP [address] [place] [address] [place] [phone] PCP - General 06/04/20 documented as of this encounter
--- OUTSIDE RECORDS SUMMARY | 2023-12-27 19:50 | XMS_ITS | Encounter Summary ---
[place] [address] Care Team Providers Care Welding Supervisor Name Role Phone WaltersApple johnson Matthias ALVAREZ Primary Care Provider [phone] Encounter Details Date Type Department Care Team (Late Contact Info) Description 02/27/2014 Telephone Cardiology at [address] [phone] David Naik Jr., MD [address] [place] [address] [phone] Social History Tobacco Use Types Packs/Day Years Used Date Smoking Tobacco: Former Cigarettes 0.5 8 Comments:quit 3 months ago Comments Yes Sex and Gender Information Value Date Recorded Sex Assigned at Not on file Gender Identity Not on file Sexual Orientation Not on file documented as of this encounter Miscellaneous Notes * Telephone Encounter - Olga Pedro RN - 02/28/2014 1:09 PM EST Called patient and let her know, patient unable to make the appointment on 03/07, rescheduled for 03/12. * Telephone Encounter - Olga Pedro RN - 02/28/2014 10:54 AM EST Called and left message for patient to call back. Follow up appointment scheduled for Wednesday 03/07 at 8:50 am. * Telephone Encounter - Rebecca Green RN - 02/27/2014 8:37 AM EST Left message for patient to call. * Telephone Encounter - David Naik Jr., MD - 02/27/2014 8:23 AM EST Loop recorder showed SVT at 212 BPM Needs ov to discuss medications If she has an episode lasting more than 15 minutes should go to ER to get medication to stop it documented in this encounter Plan of Treatment Upcoming Encounters Date Type Department Care Team (Late st Contact Info) Description 01/24/2024 3:40 PM EDT Office Visit Cardiology at [address] [address] Rangel Willams MD [facility] [place] [place] [address] documented as of this encounter Visit Diagnoses Not on filedocumented in this encounter Care Teams Welding Supervisor Relationship Specialty Start Date End Date Apple Walters APRN PCP - General 01/14/14 06/19/16 documented as of this encounter
--- OUTSIDE RECORDS SUMMARY | 2023-12-27 19:50 | XMS_ITS | Encounter Summary ---
[place] [address] Care Team Providers Care Special Population Paraprofessional Name Role Phone WaltersSarahdee dee Rizzo APRN Primary Care Provider [phone] Encounter Details Date Type Department Care Team (Late Contact Info) Description 02/03/2014 Telephone Cardiology at [address] [phone] David Naik Jr., MD [address] [place] [address] [phone] Social History Tobacco Use Types Packs/Day Years Used Date Smoking Tobacco: Former Cigarettes 0.5 8 Comments:quit 3 months ago Comments Yes Sex and Gender Information Value Date Recorded Sex Assigned at Not on file Gender Identity Not on file Sexual Orientation Not on file documented as of this encounter Miscellaneous Notes * Telephone Encounter - Shari Zee RN - 02/03/2014 3:18 PM EDT Pt returned call to office and was updated on Echo results and awaiting loop recorder. * Telephone Encounter - Shari Zee RN - 02/03/2014 1:27 PM EDT Left message to call office. * Telephone Encounter - David Naik Jr., MD - 02/03/2014 1:03 PM EDT Echo: normal heart size and function, trivial MR and TR documented in this encounter Plan of Treatment Upcoming Encounters Date Type Department Care Team (Late st Contact Info) Description 01/24/2024 3:40 PM EDT Office Visit Cardiology at [address] [phone] Rangel Willams MD [facility] [place] [address] documented as of this encounter Visit Diagnoses Not on filedocumented in this encounter Care Teams Special Population Paraprofessional Relationship Specialty Start Date End Date Apple Walters APRN PCP - General 01/14/14 06/19/16 documented as of this encounter
--- OUTSIDE RECORDS SUMMARY | 2023-12-27 19:50 | XMS_ITS | Encounter Summary ---
Author Organization [facility] [place] [place] [address] Care Team Providers Care Process Expert Name Role Phone Vikki Oates APRN Primary Care Provider [phone] Encounter Details Date Type Department Care Team (Late st Contact Info) Description 06/25/2010 10:15 AM EST Office Visit [place] [phone] Michelle Curiel [facility] [address] Discharge Disposition: Home Social History Tobacco Use [...] 3:40 PM EDT Office Visit Cardiology at [address] [phone] Rangel Willams MD [facility] [address] documented as of this encounter Visit Diagnoses Not on filedocumented in this encounter Care Teams Process Expert Relationship Specialty Start Date End Date Vikki Oates APRN [address] [place] [id number] PCP - General 03/16/10 07/13/11 documented as of this encounter
--- OUTSIDE RECORDS SUMMARY | 2023-12-27 19:50 | XMS_ITS | Encounter Summary ---
Author Organization [facility] Address [address] [place] [address] Care Team Providers Care Supervisor Of Instruction Name Role Phone Frances Sorensen MONICA Primary Care Provider Reason for Visit * (Routine/Next Available) - Receiving Office to Obtain Authorization Specialty Diagnoses / Procedures Referred By Contac t Referred To Contact Procedures CT OUTSIDE IMAGES NEURO Imaging, External Referral ID Status Reason Start Date Expiration Date Visits Requested Visits Authorized [id number] Receiving Office to Obtain Authorization 07/28/2021 1 1 Encounter Details Date Type Department Care Team (Latest Contact Info) Description 07/28/2021 11:57 EDT - 07/28/2021 15:34 EDT Hospital Encounter [facility] Secondary [place] Discharge Disposition: Home or [...] Date/Time Associated Diagnosis Comments CT OUTSIDE IMAGES NEURO Routine 07/28/2021 11:57 EDT documented in this encounter Results * CT OUTSIDE IMAGES NEURO (07/28/2021 11:57 EDT) Narrative 07/28/2021 11:57 EDT This is a non-reportable exam. External Imaging IMG OTHER IMAGING OR DERABLES documented in this encounter Visit Diagnoses Not on filedocumented in this encounter Care Teams Supervisor Of Instruction Relationship Specialty Start Date End Date Frances Sorensen FNP [address] [place] [phone] PCP - General 06/04/20 documented as of this encounter
--- OUTSIDE RECORDS SUMMARY | 2023-12-27 19:50 | XMS_ITS | Encounter Summary ---
Author Organization [facility] Address [address] [place] [address] Care Team Providers Care Price Clerk Name Role Phone EduFrances MONICA Primary Care Provider [phone] Encounter Details Date Type Department Care Team (Late st Contact Info) Description 08/05/2023 Lab Requisition [facility] Pathology & [place] [address] Outr Resulting Lab, Provider Social History Tobacco [...] Procedure Name Priority Date/Time Associated Diagnosis Comments HIGH SENSITIVITY C-REACTIVE PROTEIN (CARDIOVASCULAR DISEASE) Routine 08/04/2023 16:30 EDT documented in this encounter Results * HIGH SENSITIVITY C-REACTIVE PROTEIN (CARDIOVASCULAR DISEASE) (08/04/2023 16:30 EDT) High Sensitivity CRP >15.00 See Note mg/L 08/05/2023 21:57 EDT [facility] Comment: Suggest ordering C-Reactive Protein Reference Range: ??Low Risk: ? <1.0 mg/L ??Average Risk: ?? 1.0 - 3.0 mg/L ??High Risk: ?>3.0 mg/L ??Indeterminate*: >10.0 mg/L ??*May be an indication of another source of inflammation or infection Blood VENOUS BLOOD / Unknown 08/04/2023 16:30 EDT 08/05/2023 21:25 EDT Provider Outr Resulting Lab CHEMISTRY & BLOOD GAS ORDERABLES Performing Organization Address [facility]/State/ZIP Co de Phone Number [facility] [address] [place] [address] documented in this encounter Visit Diagnoses Not on filedocumented in this encounter Care Teams Price Clerk Relationship Specialty Start Date End Date Frances Sorensen FNP [address] [place] [phone] PCP - General 06/04/20 documented as of this encounter
--- OUTSIDE RECORDS SUMMARY | 2023-12-27 19:50 | XMS_ITS | Encounter Summary ---
[place] [address] Care Team Providers Care County Home Demonstration Agent Name Role Phone Apple Walters APRN Primary Care Provider [phone] Reason for Visit * Reason Onset Date Comments Medication Refill 04/04/2014 Encounter Details Date Type Department Care Team (Late st Contact Info) Description 04/04/2014 Telephone Cardiology at [address] [phone] David Naik Jr., MD [address] [place], [place] [phone] Medication Refill Social History Tobacco Use Types Packs/Day Years Used Date Smoking Tobacco: Former Cigarettes 0.5 8 Comments:quit 3 months ago Comments Yes Sex and Gender Information Value Date Recorded Sex Assigned at Not on file Gender Identity Not on file Sexual Orientation Not on file documented as of this encounter Miscellaneous Notes * Telephone Encounter - Apple Hunt - 04/04/2014 1:50 PM EST Patient's metoprolol from 25 mg to 50 mg. She needs a refill please. She would like 90 day if possible and she [place] [facility] [place] If you have any questions please call her at [phone]. documented in this encounter Plan of Treatment Upcoming Encounters Date Type Department Care Team (Late st Contact Info) Description 01/24/2024 3:40 PM EDT Office Visit Cardiology at [address] [phone] Rangel Willams MD [facility] [place] [address] documented as of this encounter Visit Diagnoses Diagnosis Palpitations documented in this encounter Care Teams County Home Demonstration Agent Relationship Specialty Start Date End Date Apple Walters APRN PCP - General 01/14/14 06/19/16 documented as of this encounter
--- OUTSIDE RECORDS SUMMARY | 2023-12-27 19:50 | XMS_ITS | Encounter Summary ---
Author Organization [facility] Address [address] [place] [address] Care Team Providers Care Bag Machine Helper Name Role Phone Frances Sorensen MONICA Primary Care Provider [phone] Reason for Visit * Reason Onset Date Comments Paperwork request 06/21/2021 Encounter Details Date Type Department Care Team (Late st Contact Info) Description 06/21/2021 Telephone [facility] Rheumatology & Immunology - [facility] [address] [place], [place] [phone] Jonnathan Villalobos MD [address] [place] [address], [address] [place] [address] Paperwork request Social History Tobacco Use Types Packs/Day Years [...] encounter Miscellaneous Notes * Telephone Encounter - Rona Carr RN - 06/21/2021 1454 EST Message left for Kezia to call HIM as we do not do release of information here in the office. * Telephone Encounter - Dayan Engle - 06/21/2021 1436 EST Kezia calling from [facility] regarding the multiple faxed requests they have sent to get any records of appointments the patient has had from 05/14 till present which appears to only be one. A release formhas been attached, please fax this information to [phone] or [phone]. Patient has an upcoming hearing. Please call back with any questions. documented in this encounter Plan of Treatment Not on file documented as of this encounter Visit Diagnoses Not on filedocumented in this encounter Care Teams Bag Machine Helper Relationship Specialty Start Date End Date Frances Sorensen FNP [address] [place] [phone] PCP - General 06/04/20 documented as of this encounter
--- OUTSIDE RECORDS SUMMARY | 2023-12-27 19:50 | XMS_ITS | Encounter Summary ---
Author Organization [facility] Address [address] [place] [address] Care Team Providers Care Pad Making Machine Operator Name Role Phone Frances Sorensen MONICA Primary Care Provider [phone] Encounter Details Date Type Department Care Team (Late st Contact Info) Description 06/08/2022 Lab Requisition [facility] Pathology & Laboratory Medicine - [address] [address] Espinoza Rao MD [address] [place] [address] [phone] Nontoxic single thyroid nodule Social History Tobacco Use Types Packs/Day Years [...] Procedure Name Priority Date/Time Associated Diagnosis Comments NON WARP TYING MACHINE TENDER/FNA CYTOLOGY Today 06/07/2022 11:30 EST Nontoxic single thyroid nodule documented in this encounter Results * NON WARP TYING MACHINE TENDER/FNA CYTOLOGY (06/07/2022 11:30 EST) Note to Patient The following pathology results have been interpreted by your pathologist and may be available to you before your health provider has had the opportunity to review them. Please allow time for your provider to receive these results and explore management options, if applicable. 06/10/2022 16:19 [facility] Final Diagnosis A. THYROID, RIGHT, ULTRASOUND-GUID ED FINE NEEDLE ASPIRATION: - Benign follicular nodule. See comment. 06/10/2022 16:19 [facility] Diagnosis Comment The specimen consists of many variably sized groups of benign appearing follicular cells arranged in macro- and microfollicles. There is a background of watery colloid. There is no evidence of a papillary thyroid carcinoma. The features are consistent with a benign follicular nodule. The technical component of the specimen processing was performed at the [facility] Pathology Department, [address] [place] [address] (CLIA [id number]). The professional component of the specimen evaluation (slide review and issuing of the final diagnosis) was performed at [facility], [address] [place] [address] (CLIA License Number [id number]). 06/10/2022 16:19 [facility] Attestation By the signature below, the attending physician certifies that they have personally conducted a gross and/or microscopic examination of the described specimens and rendered or confirmed the above diagnosis. 06/10/2022 16:19 [facility] at 1619 Rapid Diagnosis A. RIGHT THYROID NODULE, ULTRASOUND GUIDED FINE NEEDLE ASPIRATION: Evaluation Episode 1: Pass 1: Adequate follicular cells for evaluation. Pass 2-3: To Afirma. The above rapid on site evaluation was performed by pathologist Dr. Nilo Douglas assisting Dr. Leyda Rao at [facility], [address] [place] [address]. 06/07/22; 11:30 AM. 06/10/2022 16:19 EST [facility] Clinical History Right thyroid nodule 06/10/2022 16:19 EST [facility] Gross Description A. 2 fixed prepared slides and 1 tube of Cytolyt processed by selective cellular enhancement were received. 1 FNAprotect tube for possible Afirma testing was also received and will be held for 60 days from date of collection. 06/10/2022 16:19 EST [facility] Performing Lab [facility] 06/10/2022 16:19 EST [facility] Scanned Images 06/10/2022 16:19 EST [facility] Fine Needle Aspirate ENTIRE RIGHT LOBE OF THYROID GLAND / Unknown 06/07/2022 11:30 EST 06/08/2022 6:42 EST Espinoza Rao MD PATHOLOGY ORDERABLES Performing Organization Address City/State/[facility] Co de Phone Number [facility] [address] [place] [address] [facility] [address] [place] [address] documented in this encounter Visit Diagnoses Diagnosis 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
--- OUTSIDE RECORDS SUMMARY | 2023-12-27 19:50 | XMS_ITS | Encounter Summary ---
Author Organization [facility] [place] [address] Care Team Providers Care Sneller Hand Name Role Phone Vikki Oates APRN Primary Care Provider [phone] Encounter Details Date Type Department Care Team (Late st Contact Info) Description 03/25/2010 8:40 AM EST Office Visit Psychiatry [place] [phone] Daxa Garcia, PhD [facility] [place] [address] Social History Tobacco Use Types Packs/Day Years [...] PM EDT Office Visit Cardiology at [address] [phone] Rangel Willams MD [facility] [address] documented as of this encounter Visit Diagnoses Not on filedocumented in this encounter Care Teams Sneller Hand Relationship Specialty Start Date End Date Vikki Oates APRN [address] [place] [phone] PCP - General 03/16/10 07/13/11 documented as of this encounter
--- OUTSIDE RECORDS SUMMARY | 2023-12-27 19:50 | XMS_ITS | Encounter Summary ---
[place] [address] Care Team Providers Care Security Technician Name Role Phone Stephanie Quiñonez KIM Primary Care Provider [phone] Reason for Visit * Reason Comments Establish Care Palpitations, Pregna nt with Twins Encounter Details Date Type Department Care Team (Late st Contact Info) Description 01/24/2014 11:00 AM EDT Office Visit Cardiology at [address] [address] David Naik Jr., MD [address] [place], [place] [id number] Palpitations (Primary Dx); Murmur Social History Tobacco Use Types Packs/Day Years Used Date Smoking Tobacco: Former Cigarettes 0.5 8 Comments:quit 3 months ago Comments Yes Sex and Gender Information Value Date Recorded Sex Assigned at Not on file Gender Identity Not on file Sexual Orientation Not on file documented as of this encounter Last Filed Vital Signs Vital Sign Reading Time Taken Comments Blood Pressure 112/60 01/24/2014 11:25 AM EDT left arm standing Pulse 80 01/24/2014 11:17 AM EDT per ekg Temperature - - Respiratory Rate - - Oxygen Saturation - - Inhaled Oxygen Concentration - - Weight 82.1 kg (181 lb) 01/24/2014 11:1 7 AM EDT Height 157.5 cm (5' 2) 01/24/2014 11:1 7 AM EDT Body Mass Index 33.11 01/24/2014 11:17 AM EDT documented in this encounter Progress Notes * David Naik Jr., MD - 01/24/2014 1:13 PM EDT Referring PCP: STEPHANIE QUIÑONEZ APRN Cardiology consultation History: Ghada Ervin is a 23 y.o. old female seen at the request of STEPHANIE QUIÑONEZ APRN for evaluation of palpitation. She denies past history of palpitations and had no problems with herpast . On 01/05 she developed palpitations associated with fatigue and dizziness. She used a pulse oximeter and it recorded a HR > 200. She went to the ER but the episode terminated beforeshe got there. It lasted 30-40 minutes. Labs and EKG were unremarkable except for a Mg of 1.6 whichwas replaced. Since then she has had rare brief episodes of palpitations with HR 140, not clearly responsive to valsalva. She has increased her fluid intake and cut back on caffeine. She can identifyno triggers for the episodes. She is no more tired than with her last and denies any other issues. Allergies Allergen Reactions ??? Bee Pollen Anaphylaxis ??? Meperidine Hcl flushing, respiratory trouble, Anaphylaxis Current Outpatient Prescriptions Medication Sig Dispense Refill ??? promethazine (PHENERGAN) 12.5 mg Tablet Take 12.5 mg by mouth every 6 hours as needed. ??? Mometasone 50 mcg/actuation Maxwell, Non-Aerosol 1 spray by Nasal route as needed. ??? Magnesium 250 mg Tablet Take 1 tablet by mouth daily. ??? Uuh-Jfwxadoofa-Xydkxtewgr-Caf 09-033-47-30 mg Capsule Take 1 tablet by mouth every 4 hours as needed. ??? pyridoxine (B-6) 100 mg Tablet Take 100 mg by mouth daily. ??? Vit-Iron Fumarate-FA () 28-0.8 mg Tablet Take 1 tablet by mouth daily. ??? acetaminophen (TYLENOL) 325 mg Tablet Take 650 mg by mouth every 4 hours as needed. ??? ranitidine (ZANTAC) 150 mg Tablet Take 150 mg by mouth 2 times daily. ??? calcium carbonate (TUMS) 200 mg calcium (500 mg) Tablet, Chewable Take 2 tablets by mouth daily. ??? FLUoxetine (PROZAC) 20 mg Capsule Take 20 mg by mouth daily. ??? polyethylene glycol (MIRALAX) 17 gram Powder in Packet Take 17 g by mouth daily as needed. ??? [DISCONTINUED] gabapentin (NEURONTIN) 400 mg Capsule Take 400 mg by mouth See Admin Instructions. 1 capsule in am and noon, and 2 capsules at HS ??? [DISCONTINUED] morphine (MS CONTIN) 30 mg Tablet Sustained Release Take 30 mg by mouth 2 times daily. ??? [DISCONTINUED] dextroamphetamine-amphetamine (ADDERALL XR) 20 mg Capsule, Sust. Release 24 hr Take 20 mg by mouth every morning. ??? [DISCONTINUED] dextroamphetamine-amphetamine (ADDERALL) 10 mg Tablet Take 10 mg by mouth every evening. ??? [DISCONTINUED] traZODone (DESYREL) 50 mg Tablet Take 50 mg by mouth nightly. ??? [DISCONTINUED] oxyCODONE 10 mg Tablet Take 10 mg by mouth 3 times daily as needed. ??? [DISCONTINUED] morphine (MS CONTIN) 15 mg Tablet Sustained Release Take 15 mg by mouth nightly. ??? [DISCONTINUED] OXYcodone-acetaminophen (PERCOCET) 7.5-325 mg Tablet Take 1 tablet by mouth 2 times daily as needed. ??? [DISCONTINUED] ALPRAZolam (XANAX) 2 mg Tablet Take 2 mg by mouth nightly as needed. Patient Active Problem List Diagnosis ??? Heart palpitations ??? Chronic pain syndrome ??? Fibromyalgia ??? Migraines Coronary risk factors: Smoking: former Diabetes:no Hypercholesterolemia:no Hypertension:no Family history of premature disease:no Cardiac tests: none SH: no tobacco, rare caffeine, no drugs ROS: denies other issues Physical Exam: BP 112/60 Pulse 80 Ht 157.5 cm (5' 2) Wt 82.101 kg (181 lb) BMI 33.10 kg/m2 General: WD, WN Skin: no rash HEENT: no xanthoma Neck: No JVD, HJR, or carotid abnormalities, thyroid normal Lungs: Clear Cor: RR, normal S1, S2. PMI not displaced. 1-2/6 ejection murmur upper sternum, no rub or gallop Abd: Ext: Pulses preserved, equal bilaterally, no edema, cyanosis or clubbing Musculoskeletal: no muscle tenderness, no joint deformities Neuro: grossly nonfocal Psych: normal affect, appropriate EKG: NSR 80, IVCD, no ST change Lab data: Unremarkable as above Assessment: 1) palpitations likely due to an SVT but need to catch an episode to be sure- will set up a loop recorder. In the interim reviewed cold pressor as well as valsalva as means to terminate an episode. Reviewed hydration and stimulant avoidance. Will try to avoid medication if possible given her but may need to start a beta kaitlin 2) murmur-likely flow murmur from but will assess for more serious valve disease with echo Plan: 1) A discussion was held concerning the patient's chief complaints, the presumptive diagnosis(es) and the options for further evaluation and management. Reviewed the assessment above and the recommendations below in detail. 2) medical therapy - continue as above pending testing 3) follow up depends on echo and loop recorder results documented in this encounter Plan of Treatment Upcoming Encounters Date Type Department Care Team (Late st Contact Info) Description 01/24/2024 3:40 PM EDT Office Visit Cardiology at [address] [address] Rangel Willams MD [facility] [place] [address] documented as of this encounter Visit Diagnoses Diagnosis Palpitations- Primary Murmur Undiagnosed cardiac murmurs documented in this encounter Care Teams Security Technician Relationship Specialty Start Date End Date Stephanie Quiñonez APRN PCP - General 01/14/14 06/19/16 documented as of this encounter
--- OUTSIDE RECORDS SUMMARY | 2023-12-27 19:50 | XMS_ITS | Encounter Summary ---
Author Organization [facility] Address [address] [place] [address] Care Team Providers Care Bulk Sausage Casing Tier Off Name Role Phone EduFrances MONICA Primary Care Provider [phone] Encounter Details Date Type Department Care Team (Late st Contact Info) Description 09/29/2021 Lab Requisition [facility] Pathology & Laboratory Medicine - [address] [address] Outr Resulting Lab, Provider Social History Tobacco [...] Associated Diagnosis Comments HCV RNA DETECT QUANT Today 09/28/2021 13:00 EDT HOLD SST Today 09/28/2021 13:00 EDT HOLD SST Today 09/28/2021 13:00 EDT HOLD SST Today 09/28/2021 13:00 EDT HEPATITIS B CORE ANTIBODY (TOTAL) Today 09/28/2021 13:00 EDT HEPATITIS B SURFACE ANTIGEN Today 09/28/2021 13:00 EDT documented in this encounter Results * HOLD SST (09/28/2021 13:00 EDT) Hold Hold 09/29/2021 17:46 EDT [facility] Blood VENOUS BLOOD / Unknown 09/28/2021 13:00 EDT 09/29/2021 16:41 EDT Provider Outr Resulting Lab LAB INFO SER VICE AND SUPPORT & PHONE RESULT Performing Organization Address [facility]/ZIP Co de Phone Number [facility] [address] [place] [address] * HOLD SST (09/28/2021 13:00 EDT) Hold Hold 09/29/2021 17:46 EDT [facility] Blood VENOUS BLOOD / Unknown 09/28/2021 13:00 EDT 09/29/2021 16:41 EDT Provider Outr Resulting Lab LAB INFO SER VICE AND SUPPORT & PHONE RESULT Performing Organization Address [facility]/ZIP Co de Phone Number [facility] [address] [place] [address] * HOLD SST (09/28/2021 13:00 EDT) Hold Hold 09/29/2021 17:46 EDT [facility] Blood VENOUS BLOOD / Unknown 09/28/2021 13:00 EDT 09/29/2021 16:39 EDT Provider Outr Resulting Lab LAB INFO SER VICE AND SUPPORT & PHONE RESULT Performing Organization Address [facility]/ZIP Co de Phone Number [facility] [address] [place] [address] * (ABNORMAL) HCV RNA DETECT QUANT (09/28/2021 13:00 EDT) Pathologist [facility] [place] HCV RNA Qualitative Detected( A) Undetected 09/30/2021 15:17 EDT [facility] HCV RNA Quantitative 346,000(H ) Undetected IU/mL 09/30/2021 15:17 EDT [facility] Blood VENOUS BLOOD / Unknown 09/28/2021 13:00 EDT 09/29/2021 16:39 EDT Narrative [facility] - 09/30/2021 15:17 EDT The quantification range of this assay is 15 IU/mL to 100,000,000 IU/mL. Testing was performed using the Pretty HCV test ([employer] with the pretty woohoo mobile marketing0 System. Provider Outr Resulting Lab CHEMISTRY & BLOOD GAS ORDERABLES Performing Organization Address [facility] Co de Phone Number [facility] [address] [place] [address] * HEPATITIS B CORE ANTIBODY (TOTAL) (09/28/2021 13:00 EDT) Pathologist [facility] [place] Hepatitis B Core Ab, Total Negative Negative 09/30/2021 10:01 EDT [facility] Blood VENOUS BLOOD / Unknown 09/28/2021 13:00 EDT 09/29/2021 16:39 EDT Provider Outr Resulting Lab CHEMISTRY & BLOOD GAS ORDERABLES Performing Organization Address [facility] Co de Phone Number [facility] [address] [place] [address] * HEPATITIS B SURFACE ANTIGEN (09/28/2021 13:00 EDT) Pathologist [facility] [place] Hep B Surface Ag Negative Negative 09/30/2021 11:34 EDT [facility] Blood VENOUS BLOOD / Unknown 09/28/2021 13:00 EDT 09/29/2021 16:39 EDT Provider Outr Resulting Lab CHEMISTRY & BLOOD GAS ORDERABLES [facility] [address] [place] [address] documented in this encounter Visit Diagnoses Not on filedocumented in this encounter Care Teams Bulk Sausage Casing Tier Off Relationship Specialty Start Date End Date Frances Sorensen FNP [address] [facility] [address] [place] [phone] PCP - General 06/04/20 documented as of this encounter
--- OUTSIDE RECORDS SUMMARY | 2023-12-27 19:50 | XMS_ITS | Encounter Summary ---
Author Organization [facility] Address [address] [place] [address] Care Team Providers Care Wheat Inspector Name Role Phone Frances Sorensen CLAIMS AGENT RIGHT OF WAY Primary Care Provider [phone] Encounter Details Date Type Department Care Team (Latest Contact Info) Description 07/28/2021 Travel Social History Tobacco Use Types Packs/Day [...] on filedocumented in this encounter Care Teams Wheat Inspector Relationship Specialty Start Date End Date Frances Sorensen FNP [address] [address] PCP - General 06/04/20 documented as of this encounter
--- OUTSIDE RECORDS SUMMARY | 2023-12-27 19:50 | XMS_ITS | Encounter Summary ---
Author Organization [facility] Address [address] [place] [address] Care Team Providers Care Floor Plan Adjuster Name Role Phone Frances Sorensen MONICA Primary Care Provider [phone] Reason for Visit * Reason Onset Date Comments Establish Care 01/13/2022 Encounter Details Date Type Department Care Team (Late st Contact Info) Description 12/28/2021 Telephone [facility] Rheumatology & Immunology - [facility] [address] [place], [place] [id number] Jonnathan Villalobos MD [address] [place] [address], [address] [place] [address] Establish Care Social History Tobacco Use Types Packs/Day [...] encounter Miscellaneous Notes * Telephone Encounter - Mer Mayberry - 01/13/2022 1325 EDT Reason for Call: Establish Care Summary/Symptoms: Phone number [phone] does not have VM set up at this time. has a recording that this is not a reachable number. Since patient is not set up with My Chart, I sent her an email through My personal email stating ifpadmaja is interested in making an appointment with [facility] Rheum, to please call [phone]. I requested that she did not reply to my personal email as it is not checked daily and I asked her to please verify her contact information with whomever she speaks to. I am considering this done at this time. Mer Mayberry 01/13/2022 13:26 * Telephone Encounter - Mer Mayberry - 01/11/2022 1354 EDT Reason for Call: Establish Care Summary/Symptoms: Unable to leave VM to call back to schedule as VM is not set up at this time. has a recording that states it is not reachable. Mer Mayberry 01/11/2022 13:55 * Telephone Encounter - Vilma Robles - 01/06/2022 1613 EDT Called no voicemail or mychart. Unable to leave message * Telephone Encounter - Dena Hernández RN - 12/28/2021 1245 EDT Spoke with [facility] Rheumatology, accepting new patients. Since pt has been seen in Rheum here at [facility] transferring care, does not need to have referral to Rheumatology. Can call [phone]. NPV appt available early March. * Telephone Encounter - Rosemarie Kamara - 12/28/2021 1113 EDT Patient would like to establish care at [facility] with Dr. Ibarra. documented in this encounter Plan of Treatment Not on file documented as of this encounter Visit Diagnoses Not on filedocumented in this encounter Care Teams Floor Plan Adjuster Relationship Specialty Start Date End Date Frances Sorensen FNP [address] [facility] [address] [place] [phone] PCP - General 06/04/20 documented as of this encounter
--- OUTSIDE RECORDS SUMMARY | 2023-12-27 19:50 | XMS_ITS | Encounter Summary ---
Author Organization [facility] Address [address] [place] [address] Care Team Providers Care Unit Manager Rn Name Role Phone EduFrances MONICA Primary Care Provider [phone] Encounter Details Date Type Department Care Team (Late st Contact Info) Description 09/29/2021 Lab Requisition [facility] Pathology & Laboratory Medicine - [address] [address] Outr Resulting Lab, Provider Social History Tobacco [...] Procedure Name Priority Date/Time Associated Diagnosis Comments HIV 1/2 ANTIGEN AND ANTIBODY, 4TH GENERATION Routine 09/28/2021 13:00 EDT documented in this encounter Results * HIV 1/2 ANTIGEN AND ANTIBODY, 4TH GENERATION (09/28/2021 13:00 EDT) HIV 1 and 2 Antibody/p24 Antigen, 4th Generation Negative Negative 09/30/2021 10:[address] [facility] Comment:If acute HIV-1 infec tion is suspected in a high risk patient, submit plasma specimen for HIV-1 RNA quantitation test. Blood VENOUS BLOOD / Unknown 09/28/2021 13:00 EDT 09/29/2021 17:18 EDT [address]arr[address] [facility] - 09/30/2021 10:16 EDT Fourth Generation assay performed on the [employer] XPT. Provider Outr Resulting Lab IMMUNOLOGY A ND SEROLOGY ORDERABLES [facility] [address] [place] [address] documented in this encounter Visit Diagnoses Not on filedocumented in this encounter Care Teams Unit Manager Rn Relationship Specialty Start Date End Date Frances Sorensen FNP [address] [place] [address] [address] [place] [phone] PCP - General 06/04/20 documented as of this encounter
--- OUTSIDE RECORDS SUMMARY | 2023-12-27 19:50 | XMS_ITS | Encounter Summary ---
Author Organization [facility] Address [address] [place] [address] Care Team Providers Care Frame Opener Name Role Phone Frances Sorensen MONICA Primary Care Provider [phone] Encounter Details Date Type Department Care Team (Late st Contact Info) Description 03/22/2021 Lab Requisition [facility] Pathology & Laboratory Medicine - [address] [address] Outr Resulting Lab, Provider Social History Tobacco [...] Exposure Response Date Recorded In the last month, have you been in contact with someone who was confirmed or suspected to have Coronavirus / COVID-19? Unable to assess 03/15/2021 20:11 EST documented as of this encounter Functional Status [...] Procedure Name Priority Date/Time Associated Diagnosis Comments LYME AB Routine 03/22/2021 9:50 EST documented in this encounter Results * LYME AB (03/22/2021 9:50 EST) Lyme Ab Negative Negative 03/23/2021 10:13 EST [facility] Blood VENOUS BLOOD / Unknown 03/22/2021 9:50 EST 03/22/2021 15:57 EST Provider Outr Resulting Lab IMMUNOLOGY A ND SEROLOGY ORDERABLES Performing Organization Address City/State/[facility] Co de Phone Number [facility] [address] [place] [address] documented in this encounter Visit Diagnoses Not on filedocumented in this encounter Care Teams Frame Opener Relationship Specialty Start Date End Date Frances Sorensen FNP [address] [place] [address] [address] [place] [phone] PCP - General 06/04/20 documented as of this encounter
--- OUTSIDE RECORDS SUMMARY | 2023-12-27 19:50 | XMS_ITS | Referral Summary ---
Author Organization [facility] Address [address] [place] [address] Care Team Providers Care High Wire Artist Name Role Phone Frances Sorensen MONICA Primary Care Provider [phone] Allergies Active Allergy Reactions Criticality Noted Date Comments Bee Pollen Anaphylaxis High 01/15/2014 Meperidine Anaphylaxis High 07/24/2020 [facility] Other (See Comments) 07/24/2020 Mental status change Venom-Honey Bee Anaphylaxis High 07/14/2019 Sertraline Other (See Comments) 07/24/2020 Mental status change Medications Medication Sig Dispensed Refills Start Date End Date Status methadone HCl (METHADONE ORAL) Take 130 mg by mouth daily. Active pregabalin (LYRICA) 150 mg capsule Take 150 mg by mouth 2 times daily. Active pregabalin (LYRICA) 75 mg capsule Take 75 mg by mouth daily. Active cyclobenzaprine (FLEXERIL) 5 mg tablet Take 5 mg by mouth 2 times daily as needed for Muscle Spasms. Active lisinopriL (PRINIVIL) 10 mg tablet Take 10 mg by mouth daily. Active paroxetine (PAXIL-CR) 25 mg CR tablet Take 25 mg by mouth daily. Active acetaminophen (TYLENOL) 325 mg tablet Take 325 mg by mouth every 6 hours as needed for Pain. Take 1-2 tabs Active Naproxen 375 mg tablet,delayed release (DR/EC) Take 375 mg by mouth 2 times daily as needed for Pain. Active hydrOXYzine (ATARAX) 25 mg tablet Take 25 mg by mouth as needed for Itching. Active ondansetron (ZOFRAN) 4 mg tablet Take 8 mg by mouth as needed for Nausea. Active esomeprazole (NEXIUM) 40 mg capsule Take 40 mg by mouth daily. Active fluticasone propionate (FLOVENT HFA INHALATION) Inhale 2 Puffs as directed twice a week. Active ALBUTEROL SULFATE INHALATION Inhale as directed as needed. Active polyethylene glycol 3350 (MIRALAX ORAL) Take by mouth as needed. Active DUCODYL, BISACODYL, ORAL Take by mouth as needed. Active hydrOXYchloroQUINE (PLAQUENIL) 200 mg tabletIndications:Inf lammatory arthritis Take 2 Tabs by mouth daily. 60 Tab 3 07/24/2020 Active aspirin 81 mg EC tablet 02/08/2022 Active betamethasone valerate (VALISONE) 0.1 % cream Apply topically 2 times daily. To affected area 02/09/2022 Active diphenhydrAMINE (BENADRYL) 25 mg capsule Take 25 mg by mouth. 07/14/2019 Active EPINEPHrine (EPIPEN) 0.3 mg/0.3 mL injection Inject 0.3 mg into the muscle. 11/25/2020 Active ferrous sulfate 325 mg (65 mg iron) tablet 02/15/2022 Active lisdexamfetamine (VYVANSE) 40 mg capsule Take 40 mg by mouth daily. 04/27/2021 Active OLANZapine (ZYPREXA) 15 mg tablet Take 15 mg by mouth daily. 04/26/2021 Active predniSONE (DELTASONE) 20 mg tablet Take 40 mg by mouth. 11/25/2020 Active famotidine (PEPCID) 10 mg tablet Take 10 mg by mouth 2 times daily as needed. Active glecaprevir-pibrentas vir (MAVYRET) 100-40 mg tablet Take 300 mg by mouth daily. Chronic Hep-C Active Senna 8.6 mg tablet Take 2 Tablets by mouth daily. Active Nebulizer & Compressor For Neb device 1 Vial by misc (non-drug; combo route) route every 4 to 6 hours as needed. Active metoprolol SUCCinate (TOPROL-XL) 25 mg tablet Take 50 mg by mouth daily. Active clopidogreL (PLAVIX) 75 mg tablet Take 75 mg by mouth daily. Active diclofenac sodium (VOLTAREN ARTHRITIS PAIN) gel Apply 2 g topically 4 times daily as needed for Pain. Active Active Problems Patient Care Coordination No te Formatting of this note migh t be different from the original. 2021 - Traditional [place] Medicaid web/trace# [id number] Matias Juan Carlos 03/16/2021 7:58 Problem Noted Date Diagnosed Date Cerebrovascular accident (CVA) ([facility]) 023 Chronic daily headache 05/12/2022 Community acquired bacterial pneumonia Constipation due to opioid therapy 05/12/2022 Depression 05/12/2022 Dyspepsia 05/12/2022 Dyspnea 05/12/2022 Encounter for deep vein thrombosis (DVT) prophyl axis 05/12/2022 Problem related to discharge planning 05/12/2022 Medication overuse headache 05/12/2022 Hepatitis C virus infection 05/12/2022 History of cerebral aneurysm repair 05/12/2022 History of section 05/12/2022 History of intravenous drug abuse 05/12/2022 Hypersomnia 05/12/2022 Migraine with aura 05/12/2022 Status migrainosus 05/12/2022 Nephrolithiasis 05/12/2022 Opioid dependence in remission ([facility]) 023 Patient non adherence 05/12/2022 Posttraumatic stress disorder 05/12/2022 Right hemiparesis ([facility]) 05/12/2022 Seizures ([facility]) 05/12/2022 Status post cystoscopy with ureteral stent place ment 05/12/2022 Status post thoracic spinal fusion 05/12/2022 Status post tubal ligation 05/12/2022 Acute focal neurological deficit 05/12/2022 Stroke-like symptoms 05/12/2022 Obesity 05/12/2022 Bipolar disorder ([facility]) 05/12/2022 Chronic anemia 05/12/2022 Psoriasis 05/12/2022 Tinea 05/12/2022 Sleep apnea 05/12/2022 Cocaine abuse ([facility]) 05/12/2022 Stress incontinence in female 05/12/2022 Altered consciousness 05/12/2022 Polyarthralgia 05/12/2022 Secondary amenorrhea 05/12/2022 Abnormal movements 05/11/2022 Acute febrile illness 05/11/2022 Acute right-sided muscle weakness 05/11/2022 Allergic reaction 05/11/2022 Altered mental status 05/11/2022 Asthma 05/11/2022 Exacerbation of asthma 05/11/2022 Atypical chest pain 05/11/2022 Back pain 05/11/2022 Blood bacterial culture positive 05/11/2022 Spondylosis without myelopat hy or radiculopathy, lumbosacral region 05/05/2021 Atrial septal defect 04/29/2021 Supraventricular tachycardia ([facility]) 2 Unspecified systolic (congestive) heart failure ([facility]) 04/29/2021 Insect bite (nonvenomous) of lower back and pelvis, initial encounter 03/22/2021 Other fatigue 03/22/2021 Hemiplegia, unspecified affe cting left nondominant side ([facility]) 03/15/2021 Bronchitis, not specified as acute or chronic Pneumonia due to coronavirus disease 2018 COVID-19 02/27/2021 Cough 02/23/2021 Unspecified acute lower respiratory infection Toxic effect of venom of bee s, accidental (unintentional), initial encounter 11/25/2020 Cerebral infarction due to e mbolism of unspecified cerebral artery ([facility]) 05/09/2020 Cerebral aneurysm, nonruptured 05/08/2020 PFO with atrial septal aneurysm 05/09/2019 Overview: SIOBHAN 09/12/2018: SUMMARY: 1. There is an aneurysmal inter-atrial septum present with a PFO noted by both color and agitated saline injections. 2. Global left ventricular systolic function is mildly reduced. Ejection fraction is estimated to be 50%. There is diffuse hypokinesis present. 3. The right ventricle is normal in size. Right ventricular global systolic function is normal. 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 Diagnostic cerebral angiogram.?? Vessels injected:?? Right internal carotid artery. 2.?? 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 06/01/15 Stage II coil embolization of paraclinoid aneurysm on the right HFrEF (heart failure with re duced ejection fraction) ([facility]) 09/24/2018 Overview: SIOBHAN on 09/12/18 which showed interatrial aneurysm [...] consistent with normal left sided filling pressure. Cerebrovascular accident ([facility]) 09/05/2018 Spondylosis of lumbar region without myelopathy or radiculopathy 04/21/2015 Chronic migraine without aur a without status migrainosus, not intractable 03/25/2015 Encounter for long-term (current) use of other m edications 10/14/2014 ADD (attention deficit disorder) 09/18/2014 Scoliosis 09/18/2014 Chronic pain disorder 01/15/2014 Fibromyalgia 01/15/2014 Heart palpitations 01/15/2014 Overview: Echo: normal heart size and function, trivial MR and TR Loop recorder: SVT rate 212 BPM Immunizations Name Administration Dates Next Due Historical Hepatitis A Vacci ne, Unspecified 11/04/2020,01/02/2019 Historical Hepatitis B Vacci ne, Unspecified 11/04/2020,01/02/2019 Historical Influenza Vaccine , Unspecified 05/21/2021,05/28/2019,04/27/2017,2016 Historical Pneumococcal Vacc ine, Unspecified 07/09/2018 Tdap Vaccine =>7YO IM 07/09/2018 Social History Tobacco Use Types Packs/Day Years [...] 14:16 EST Sexual Orientation Not on file Last Filed Vital Signs Vital Sign Reading Time Taken Comments Blood Pressure 132/93 07/24/2020 1155 EDT Pulse 114 07/24/2020 1155 EDT Temperature - - Respiratory Rate - - Oxygen Saturation - - Inhaled Oxygen Concentration - - Weight 118.8 kg (262 lb) 07/24/2020 1155 EDT Height 158.1 cm (5' 2.25) 07/24/2020 1155 EDT Body Mass Index 47.54 07/24/2020 1155 EDT Functional Status Functional Status Response Date of [...] concentrating, remembering, or making decisions? Yes 07/24/2020 Plan of Treatment Not on file Procedures Procedure Name Priority Date/Time Associated Diagnosis Comments HCV RNA DETECT QUANT Routine 09/12/2022 13:45 EDT from Last 3 Months or Most Recently Relevant to Health Maintenance Results * HCV RNA DETECT QUANT (09/12/2022 [...] was performed using the Pretty HCV test ([employer] with the pretty [employer] System. Provider Outr Resulting Lab CHEMISTRY & BLOOD GAS ORDERABLES [facility] [address] [place] [address] from Last 3 Months or Most Recently Relevant to Health Maintenance Care Teams High Wire Artist Relationship Specialty Start Date End Date Frances Sorensen FNP [address] [place] [phone] [facility] - General 06/04/20
--- OUTSIDE RECORDS SUMMARY | 2023-12-27 19:50 | XMS_ITS | Encounter Summary ---
Author Organization [facility] Address [address] [place] [address] Care Team Providers Care Senior Business Intelligence Analyst Name Role Phone Frances Sorensen MONICA Primary Care Provider [phone] Encounter Details Date Type Department Care Team (Late st Contact Info) Description 05/12/2022 Abstract [facility] [address], [place] [id number] Dayan Ibarra MD [address] [facility] [address] [place] [phone] Social History Tobacco Use Types Packs/Day Years [...] Yes 07/24/2020 documented as of this encounter Progress Notes * Laureano Cowan MA - 05/12/2022 0909 EST Abstraction done. jms documented in this encounter Plan of Treatment Not on file documented as of this encounter Visit Diagnoses Not on filedocumented in this encounter Historical Medications * This list may reflect changes made after this encounter. Medication Sig Dispensed Refills Start Date End Date diclofenac sodium (VOLTAREN ARTHRITIS PAIN) gel Apply 2 g topically 4 times daily as needed for Pain. clopidogreL (PLAVIX) 75 mg tablet Take 75 mg by mouth daily. metoprolol SUCCinate (TOPROL-XL) 25 mg tablet Take 50 mg by mouth daily. Nebulizer & Compressor For Neb device 1 Vial by misc (non-drug; combo route) route every 4 to 6 hours as needed. Senna 8.6 mg tablet Take 2 Tablets by mouth daily. glecaprevir-pibrentasvir (MAVYRET) 100-40 mg tablet Take 300 mg by mouth daily. Chronic Hep-C famotidine (PEPCID) 10 mg tablet Take 10 mg by mouth 2 times daily as needed. added in this encounter Care Teams Senior Business Intelligence Analyst Relationship Specialty Start Date End Date Frances Sorensen FNP [address] [place] [address] [address] [place] [phone] PCP - General 06/04/20 documented as of this encounter
--- OUTSIDE RECORDS SUMMARY | 2023-12-27 19:50 | XMS_ITS | Encounter Summary ---
Author Organization [facility] Address [address] [place] [address] Care Team Providers Care Cardiac Cath Rn Name Role Phone Frances Sorensen MONICA Primary Care Provider [phone] Encounter Details Date Type Department Care Team (Late st Contact Info) Description 06/30/2021 Lab Requisition [facility] Pathology & [place] [address] Outr Resulting Lab, Provider Social History Tobacco [...] Procedure Name Priority Date/Time Associated Diagnosis Comments ZZCOVID-19 TEST [facility] PCR Today 06/30/2021 11:00 EST COVID-19 TESTING Routine 06/30/2021 11:0 0 EST documented in this encounter Results * COVID-19 TEST [facility] PCR (06/30/2021 11:00 EST) Swab 06/30/2021 11:0 0 EST 06/30/2021 20:52 EST Provider Outr Resulting Lab MICROBIOLOGY - GENERAL ORDERABLES Performing Organization Address [facility] Co de Phone Number [facility] [address] [place] [address] * COVID-19 TESTING (06/30/2021 11:00 EST) COVID-19 rt-PCR Result Negative Negative 07/01/2021 13:44 EST [facility] Comment: This test has not been FDA cleared or approved. This test has been authorized by FDA under an EUA for use by authorized laboratories. This test has been authorized only for detection of nucleic acid from 2019-nCoV, not for any other viruses or pathogens. This test is only authorized for the duration of the declaration that circumstances exist justifying the authorization of emergency use of in vitro diagnostic tests for detection and/or diagnosis of 2019-nCoV under section 564(b)(1) of Act, 21 U.S.C ?? 360bbb-3(b) (1), unless the authorization is terminated or revoked sooner. Negative results do not preclude 2019-nCoV infection and should not be used as the sole basis for treatment or other patient management decisions. Negative results must be combined with clinical observations, patient history, and epidemiological information. Testing was performed using the pretty SARS-CoV-2 assay ([employer] on the Pretty 6800 System Performing Lab Pretty [address] [facility] 07/01/2021 13:44 EST [facility] Swab 06/30/2021 11:0 0 EST 06/30/2021 20:52 EST Provider Outr Resulting Lab MICROBIOLOGY - GENERAL ORDERABLES Performing Organization Address [facility] Co de Phone Number [facility] [address] [place] [address] documented in this encounter Visit Diagnoses Not on filedocumented in this encounter Care Teams Cardiac Cath Rn Relationship Specialty Start Date End Date Frances Sorensen FNP [address] [phone] PCP - General 06/04/20 documented as of this encounter
--- OUTSIDE RECORDS SUMMARY | 2023-12-27 19:50 | XMS_ITS | Encounter Summary ---
Author Organization [facility] Address [address] [place] [address] Care Team Providers Care Lining Setter Name Role Phone Frances Sorensen Primary Care Provider [phone] Reason for Visit * (Routine/Next Available) - Receiving Office to Obtain Authorization Specialty Diagnoses / Procedures Referred By Contac t Referred To Contact Procedures MR OUTSIDE IMAGES NEURO Unknown, Provider, Referral ID Status Reason Start Date Expiration Date Visits Requested Visits Authorized [id number] Receiving Office to Obtain Authorization 04/01/2021 1 1 Encounter Details Date Type Department Care Team (Latest Contact Info) Description 04/01/2021 19:18 EST Hospital Encounter [facility] Secondary Reads [place] Discharge Disposition: Home or [...] mg by mouth as needed for Itching. lisinopriL (PRINIVIL) 10 mg tablet Take 10 mg by mouth daily. methadone HCl (METHADONE ORAL) Take 130 mg by mouth daily. Naproxen 375 mg tablet,delayed release (DR/EC) Take 375 mg by mouth 2 times daily as needed for Pain. ondansetron (ZOFRAN) 4 mg tablet Take 8 [...] Procedure Name Priority Date/Time Associated Diagnosis Comments MR OUTSIDE IMAGES NEURO Routine 04/01/2021 19:18 EST documented in this encounter Results * MR OUTSIDE IMAGES NEURO (04/01/2021 19:18 EST) Narrative 04/01/2021 19:18 EST This is a non-reportable exam. Provider Unknown MD ANSARI OTHER IMAGING OR DERABLES documented in this encounter Visit Diagnoses Not on filedocumented in this encounter Care Teams Lining Setter Relationship Specialty Start Date End Date Frances Sorensen FNP [address] [place] [phone] PCP - General 06/04/20 documented as of this encounter
--- OUTSIDE RECORDS SUMMARY | 2023-12-27 19:50 | XMS_ITS | Encounter Summary ---
Author Organization [facility] Address [address] [place] [address] Care Team Providers Care Kennel Supervisor Name Role Phone EduFrances MONICA Primary Care Provider [phone] Encounter Details Date Type Department Care Team (Late st Contact Info) Description 09/29/2021 Lab Requisition [facility] Pathology & Laboratory Medicine - [address] [address] Outr Resulting Lab, Provider Social History Tobacco [...] Procedure Name Priority Date/Time Associated Diagnosis Comments PROLACTIN Routine 09/28/2021 13:00 EDT LH Routine 09/28/2021 13:00 EDT FSH Routine 09/28/2021 13:00 EDT documented in this encounter Results * LH (09/28/2021 13:00 EDT) Luteinizing Hormone 0.4 See Note mIU/mL 09/29/2021 18:41 EDT [facility] Comment: NOTE: Female Reference Ranges: Pre-Pubertal: ?<6.0 mIU/mL Menstruating: Follicular Phase(-12 to -4 days: ??1.9 - 12.5 mIU/mL Midcycle(-3 to +2 days): ?8.7 - 76.3 mIU/mL Luteal Phase(+4 to +12 days): ? 0.5 - 16.9 mIU/mL Post Menopausal: 15.9 - 54.0 mIU/mL Blood VENOUS BLOOD / Unknown 09/28/2021 13:00 EDT 09/29/2021 17:18 EDT Provider Outr Resulting Lab CHEMISTRY & BLOOD GAS ORDERABLES [facility] [address] [place] [address] * FSH (09/28/2021 13:00 EDT) FSH 1.6 See Note mIU/mL 09/29/2021 18:41 EDT [facility] Blood VENOUS BLOOD / Unknown 09/28/2021 13:00 EDT 09/29/2021 17:18 EDT Narrative [facility] - 09/29/2021 18:41 EDT NOTE: Female FSH Reference Ranges (>= 13 Menstruating): PHYSIOLOGICAL STATUS ? REFERENCE RANGE ? Follicular (-12 to -4 days): ?? 2.5 - 10.2 mIU/mL Midcycle (-3 to +2 days): ?3.4 - 33.4 mIU/mL Luteal (+4 to +12 days): ? 1.5 - 9.1 mIU/mL Postmenopausal: ?23.0 - 116.3 mIU/mL Reference Ranges for female patients <13 years old have not been established. Provider Outr Resulting Lab CHEMISTRY & BLOOD GAS ORDERABLES [facility] [address] [place] [address] * PROLACTIN (09/28/2021 13:00 EDT) Prolactin 10.3 See Note ng/mL 09/29/2021 18:42 EDT [facility] Comment: NOTE: Female Reference Ranges: PHYSIOLOGICAL STATUS ?EXPECTED RANGE ? Postmenopausal ?1.8 - 20.3 ng/mL ?9.7 - 208.5 ng/mL Non- ?2.8 - 29.2 ng/mL Reference Ranges for Prolactin in female patients <18 years old have not been established. Blood VENOUS BLOOD / Unknown 09/28/2021 13:00 EDT 09/29/2021 17:18 EDT Provider Outr Resulting Lab CHEMISTRY & BLOOD GAS ORDERABLES [facility] [address] [place] [address] documented in this encounter Visit Diagnoses Not on filedocumented in this encounter Care Teams Kennel Supervisor Relationship Specialty Start Date End Date Frances Sorensen FNP [address] [place] [address] [place] [phone] PCP - General 06/04/20 documented as of this encounter
--- OUTSIDE RECORDS SUMMARY | 2023-12-27 19:50 | XMS_ITS | Encounter Summary ---
Author Organization [facility] Address [address] [place] [address] Care Team Providers Care Lpta Name Role Phone Frances Sorensen Primary Care Provider [phone] Reason for Visit * (Routine/Next Available) - Receiving Office to Obtain Authorization Specialty Diagnoses / Procedures Referred By Contac t Referred To Contact Procedures MR OUTSIDE IMAGES NEURO Unknown, Provider, Referral ID Status Reason Start Date Expiration Date Visits Requested Visits Authorized [id number] Receiving Office to Obtain Authorization 1 1 1 Encounter Details Date Type Department Care Team (Latest Contact Info) Description 03/15/2021 19:28 EST Hospital Encounter [facility] Secondary Reads [place] Discharge Disposition: Home [...] Diagnosis Comments MR OUTSIDE IMAGES NEURO Routine 03/15/2021 19:28 EST documented in this encounter Results * MR OUTSIDE IMAGES NEURO (03/15/2021 19:28 EST) Narrative 03/15/2021 19:28 EST This is a non-reportable exam. Provider Unknown MD ANSARI OTHER IMAGING OR DERABLES documented in this encounter Visit Diagnoses Not on filedocumented in this encounter Additional Health Concerns Infection Onset Date Last Indicated Resolved Time COVID-19 02/23/2021 02/23/2021 03/15/2021 22:1 5 EST documented as of this encounter Care Teams Lpta Relationship Specialty Start Date End Date Frances Sorensen FNP [address] [place] [phone] PCP - General 06/04/20 documented as of this encounter
--- OUTSIDE RECORDS SUMMARY | 2023-12-27 19:50 | XMS_ITS | Encounter Summary ---
Author Organization [facility] [place] [address] Care Team Providers Care Dealer Accounts Investigator Name Role Phone Vikki Oates APRN Primary Care Provider [phone] Encounter Details Date Type Department Care Team (Late st Contact Info) Description 05/21/2010 2:15 PM EST Office [place] [phone] Michelle Curiel [facility] [place] [address] Discharge Disposition: Home Social History Tobacco Use [...] PM EDT Office Visit Cardiology at [address] [phone] Rangel Willams MD [facility] [place] [address] documented as of this encounter Visit Diagnoses Not on filedocumented in this encounter Care Teams Dealer Accounts Investigator Relationship Specialty Start Date End Date Vikki Oates APRN [address] [place] [phone] PCP - General 03/16/10 07/13/11 documented as of this encounter
--- OUTSIDE RECORDS SUMMARY | 2023-12-27 19:50 | XMS_ITS | Encounter Summary ---
Author Organization [facility] Address [address] [place] [address] Care Team Providers Care Employment Adjudicator Name Role Phone Frances Sorensen MONICA Primary Care Provider Encounter Details Date Type Department Care Team (Late st Contact Info) Description 05/22/2021 Lab Requisition [facility] Pathology & [place] [address] Outr Resulting Lab, Provider Social History Tobacco [...] Priority Date/Time Associated Diagnosis Comments ZZCOVID-19 TEST [facility] PCR Today 05/21/2021 13:45 EST COVID-19 TESTING Routine 05/21/2021 13:4 5 EST documented in this encounter Results * COVID-19 TEST [facility] PCR (05/21/2021 13:45 EST) Swab 05/21/2021 13:4 5 EST 05/22/2021 21:50 EST Provider Outr Resulting Lab MICROBIOLOGY - GENERAL ORDERABLES Performing Organization Address [facility] Co de Phone Number [facility] [address] [place] [address] * COVID-19 TESTING (05/21/2021 13:45 EST) COVID-19 rt-PCR Result Negative Negative 05/23/2021 12:08 EST [facility] Comment: This test has [...] performed using the pretty SARS-CoV-2 assay (Jaden [employer] on the Pretty 6800 System Performing Lab Pretty 6800 [facility] 05/23/2021 12:08 EST [facility] Swab 05/21/2021 13:4 5 EST 05/22/2021 21:50 EST Provider Outr Resulting Lab MICROBIOLOGY - GENERAL ORDERABLES Performing Organization Address [facility] Co de Phone Number [facility] [address] [place] [address] documented in this encounter Visit Diagnoses Not on filedocumented in this encounter Care Teams Employment Adjudicator Relationship Specialty Start Date End Date Frances Sorensen FNP [address] [phone] PCP - General 06/04/20 documented as of this encounter
--- OUTSIDE RECORDS SUMMARY | 2023-12-27 19:50 | XMS_ITS | Clinical Summary ---
Author Organization [facility] Address [address] [place] [address] Care Team Providers Care Story Analyst Name Role Phone Frances Sorensen MONICA Primary Care Provider [phone] Allergies Active Allergy Reactions Criticality Noted Date Comments Bee Pollen Anaphylaxis High 01/15/2014 Meperidine Anaphylaxis High 07/24/2020 [place] Other (See Comments) 07/24/2020 Mental status change [...] original. 2021 - Traditional [place] Medicaid web/trace# [id number] Matias Juan Carlos 03/16/2021 7:58 Problem Noted Date Diagnosed Date Cerebrovascular accident (CVA) ([facility]) 023 Chronic daily headache 05/12/2022 Community acquired [...] 05/12/2022 Nephrolithiasis 05/12/2022 Opioid dependence in remission ([facility]) 023 Patient non adherence 05/12/2022 Posttraumatic stress disorder 05/12/2022 Right hemiparesis ([facility]) 05/12/2022 Seizures ([facility]) 05/12/2022 Status post cystoscopy with ureteral stent place ment 05/12/2022 Status post thoracic spinal fusion 05/12/2022 Status post tubal ligation 05/12/2022 Acute focal neurological deficit 05/12/2022 Stroke-like symptoms 05/12/2022 Obesity 05/12/2022 Bipolar disorder ([facility]) 05/12/2022 Chronic anemia 05/12/2022 Psoriasis 05/12/2022 Tinea 05/12/2022 Sleep apnea 05/12/2022 Cocaine abuse ([facility]) 05/12/2022 Stress incontinence in female 05/12/2022 Altered [...] 05/05/2021 Atrial septal defect 04/29/2021 Supraventricular tachycardia ([facility]) 2 Unspecified systolic (congestive) heart failure ([facility]) 04/29/2021 Insect bite (nonvenomous) of lower back and pelvis, initial encounter 03/22/2021 Other fatigue 03/22/2021 Hemiplegia, unspecified affe cting left nondominant side ([facility]) 03/15/2021 Bronchitis, not specified as acute or chronic Pneumonia due to coronavirus disease 2018 COVID-19 02/27/2021 Cough 02/23/2021 Unspecified acute lower respiratory infection Toxic effect of venom of bee s, accidental (unintentional), initial encounter 11/25/2020 Cerebral infarction due to e mbolism of unspecified cerebral artery ([facility]) 05/09/2020 Cerebral aneurysm, nonruptured 05/08/2020 PFO [...] (heart failure with re duced ejection fraction) ([facility]) 09/24/2018 Overview: SIOBHAN on 09/12/18 which [...] Unspecified 07/09/2018 Tdap Vaccine =>6YO IM 07/09/2018 Surgical History Surgery Date Site/Laterality Comments SPINAL FUSION 04/24/2007 - 04/23/2008 T3-T12. For Scoliosis BUNIONECTOMY 04/24/2009 - 04/23/2010 Left SECTION 2 Medical History Medical History Date Comments Stroke ([facility]CC-CMS) Cerebral aneurysm Fibromyalgia Chronic hepatitis C virus infection ([facility]CMS) Scoliosis Migraines History of petit-mal seizures Childhood asthma Exercised-enduc ed MRSA infection 09/2008 Abcess of left a xirolandaa Family History Medical History Relation Comments Diabetes Father Heart Attack Father Hypertension Father Arthritis-Rheumatoid Mother Relation Status Comments Father Mother Social History Tobacco Use Types Packs/Day Years [...] 14:16 EST Sexual Orientation Not on file Obstetrics History Last Filed Vital Signs Vital Sign Reading Time Taken Comments Blood Pressure 132/93 07/24/2020 1155 EDT Pulse 114 07/24/2020 1155 EDT Temperature - - Respiratory Rate - - Oxygen Saturation - - Inhaled Oxygen Concentration - - Weight 118.8 kg (262 lb) 07/24/2020 1155 EDT Height 158.1 cm (5' 2.25) 07/24/2020 1155 EDT Body Mass Index 47.54 07/24/2020 1155 EDT Plan of Treatment Health Maintenance Due Date Last Done Comments Asthma Action Plan 1989 Lung Function Test (Spirometry) 1989 Pneumococcal Immunization (1 of 2 - PCV) 11/02/1995 07/09/2018 Hepatitis B Vaccine (3 of 3 - 19+ 3-dose series) 12/30/2020 11/04/2020, 01/02/2019 COVID-19 Vaccine ( - 2022-2 4 season) 2023 Hepatitis C Screen Completed 09/12/2022, 1 , 09/28/2021, Additional history exists Procedures Procedure Name Priority Date/Time Associated Diagnosis Comments HCV RNA DETECT QUANT Routine 09/12/2022 13:45 EDT from Last 3 Months or Most Recently Relevant to Health Maintenance Results * HCV RNA DETECT QUANT (09/12/2022 13:45 EDT) HCV RNA Qualitative Undetected Undetected 09/14/2022 11:[address] [facility] Blood VENOUS BLOOD / Unknown 09/12/2022 13:45 EDT 09/12/2022 21:10 EDT Narrative [facility] - 09/14/2022 11:30 EDT The quantification range of this assay is 15 IU/mL to 100,000,000 IU/mL. Testing was performed using the Pretty HCV test ([employer] with the pretty Poshmark0 System. Provider Outr Resulting Lab CHEMISTRY & BLOOD GAS ORDERABLES [facility] [address] [place] [address] from Last 3 Months or Most Recently Relevant to Health Maintenance Care Teams Story Analyst Relationship Specialty Start Date End Date Frances Sorensen FNP [address] [place] [phone] PCP - General 06/04/20
--- OUTSIDE RECORDS SUMMARY | 2023-12-27 19:50 | XMS_ITS | Encounter Summary ---
Author Organization [facility] Address [address] [place] [address] Care Team Providers Care Chemical Checker Name Role Phone Frances Sorensen MONICA Primary Care Provider [phone] Reason for Visit * (Routine/Next Available) - Receiving Office to Obtain Authorization Specialty Diagnoses / Procedures Referred By Contac t Referred To Contact Procedures MR OUTSIDE IMAGES NEURO Imaging, External Referral ID Status Reason Start Date Expiration Date Visits Requested Visits Authorized [id number] Receiving Office to Obtain Authorization 07/28/2021 1 1 Encounter Details Date Type Department Care Team (Latest Contact Info) Description 07/28/2021 15:35 EDT - 07/28/2021 23:59 EDT Hospital Encounter [facility] Secondary Reads [place] Discharge Disposition: Home [...] Diagnosis Comments MR OUTSIDE IMAGES NEURO Routine 07/28/2021 15:35 EDT documented in this encounter Results * MR OUTSIDE IMAGES NEURO (07/28/2021 15:35 EDT) Narrative 07/28/2021 15:35 EDT This is a non-reportable exam. External Imaging IMG OTHER IMAGING OR DERABLES documented in this encounter Visit Diagnoses Not on filedocumented in this encounter Care Teams Chemical Checker Relationship Specialty Start Date End Date Frances Sorensen FNP [address] [place] [phone] PCP - General 06/04/20 documented as of this encounter
--- OUTSIDE RECORDS SUMMARY | 2023-12-27 19:50 | XMS_ITS | Encounter Summary ---
Author Organization [facility] Address [address] [place] [address] Care Team Providers Care Meat Blender Name Role Phone Frances Sorensen MONICA Primary Care Provider [phone] Encounter Details Date Type Department Care Team (Latest Contact Info) Description 03/15/2021 Travel Social History Tobacco Use Types Packs/Day [...] documented as of this encounter Care Teams Meat Blender Relationship Specialty Start Date End Date Frances Sorensen FNP [address] [phone] PCP - General 06/04/20 documented as of this encounter
--- OUTSIDE RECORDS SUMMARY | 2023-12-27 19:50 | XMS_ITS | Encounter Summary ---
Author Organization [facility] Address [address] [place] [address] Care Team Providers Care Globe Changer Name Role Phone Frances Sorensen Primary Care Provider [phone] Reason for Visit * (Routine/Next Available) - Receiving Office to Obtain Authorization Specialty Diagnoses / Procedures Referred By Contac t Referred To Contact Procedures CT OUTSIDE IMAGES NEURO Unknown, Provider, Referral ID Status Reason Start Date Expiration Date Visits Requested Visits Authorized [id number] Receiving Office to Obtain Authorization 1 1 1 Encounter Details Date Type Department Care Team (Latest Contact Info) Description 03/15/2021 19:28 EST Hospital Encounter [facility] Secondary Reads [place] Discharge Disposition: [...] Diagnosis Comments CT OUTSIDE IMAGES NEURO Routine 03/15/2021 19:28 EST documented in this encounter Results * CT OUTSIDE IMAGES NEURO (03/15/2021 19:28 EST) Narrative 03/15/2021 19:28 EST This is a non-reportable exam. Provider Unknown MD ANSARI OTHER IMAGING OR DERABLES documented in this encounter Visit Diagnoses Not on filedocumented in this encounter Additional Health Concerns Infection Onset Date Last Indicated Resolved Time COVID-19 02/23/2021 02/23/2021 03/15/2021 22:1 5 EST documented as of this encounter Care Teams Globe Changer Relationship Specialty Start Date End Date Frances Sorensen FNP [address] [place] [phone] PCP - General 06/04/20 documented as of this encounter
--- OUTSIDE RECORDS SUMMARY | 2023-12-27 19:50 | XMS_ITS | Encounter Summary ---
Author Organization [facility] [place] [address] Care Team Providers Care Traveling Repair Accountant Name Role Phone WaltersSarahdee dee Rizzo APRN Primary Care Provider [phone] Encounter Details Date Type Department Care Team (Late Contact Info) Description 03/24/2014 Telephone Cardiology at [address] [phone] David Naik Jr., MD [address] [place] [id number] Social History Tobacco Use Types Packs/Day Years Used Date Smoking Tobacco: Former Cigarettes 0.5 8 Comments:quit 3 months ago Comments Yes Sex and Gender Information Value Date Recorded Sex Assigned at Not on file Gender Identity Not on file Sexual Orientation Not on file documented as of this encounter Miscellaneous Notes * Telephone Encounter - Josette Aleman - 04/10/2014 3:34 PM EST Pt came in and an appt was scheduled for her for 05/08/2014 at 3:00 pm at the [facility]. * Telephone Encounter - Josette Aleman - 03/31/2014 4:05 PM EST Pt was called and left a message to call us to make an appt for 4-6 weeks at the [facility]. * Telephone Encounter - David Naik Jr., MD - 03/31/2014 2:37 PM EST Ok, continue meds as is and schedule follow up 4-6 weeks * Telephone Encounter - Tere Naik RN - 03/31/2014 2:13 PM EST Pt called back. States that since the increase in metoprolol she hasn't had any palpitations. No f/u scheduled. * Telephone Encounter - Tere Naik RN - 03/31/2014 1:58 PM EST Left message for pt to call us. * Telephone Encounter - Rebecca Green RN - 03/24/2014 3:52 PM EST Spoke with patient & gave her Dr. Naik's instructions. * Telephone Encounter - David Naik Jr., MD - 03/24/2014 3:32 PM EST Increase metoprolol to 50mg QD Phone check 1 week * Telephone Encounter - Rebecca Green RN - 03/24/2014 3:26 PM EST Patient does not feel medication has made much difference in amount of palpitations - states she has had 3 episodes today. * Telephone Encounter - Apple Hunt - 03/24/2014 10:23 AM EST Patient was put on a low dose of metoprolol and told someone would call in a week. She has not heard back from anyone. She does not think it is making a difference and she is still having palpitations. Please call her back at [phone]. documented in this encounter Plan of Treatment Upcoming Encounters Date Type Department Care Team (Late st Contact Info) Description 01/24/2024 3:40 PM EDT Office Visit Cardiology at [address] [phone] Rangel Willams MD [facility] [place] [address] documented as of this encounter Visit Diagnoses Not on filedocumented in this encounter Care Teams Traveling Repair Accountant Relationship Specialty Start Date End Date Apple Walters APRN PCP - General 01/14/14 06/19/16 documented as of this encounter
--- OUTSIDE RECORDS SUMMARY | 2023-12-27 19:50 | XMS_ITS | Encounter Summary ---
Author Organization [facility] Address [address] [place] [address] Care Team Providers Care Underwriting Manager Name Role Phone Frances Sorensen Primary Care Provider [phone] Reason for Visit * (Routine/Next Available) - Receiving Office to Obtain Authorization Specialty Diagnoses / Procedures Referred By Contac t Referred To Contact Procedures CT OUTSIDE IMAGES NEURO Unknown, Provider, Referral ID Status Reason Start Date Expiration Date Visits Requested Visits Authorized [id number] Receiving Office to Obtain Authorization 1 1 1 Encounter Details Date Type Department Care Team (Latest Contact Info) Description 03/15/2021 19:29 EST - 03/15/2021 23:59 EST Hospital Encounter [facility] Secondary Reads [place] Discharge Disposition: Home [...] Comments CT OUTSIDE IMAGES NEURO Routine 03/15/2021 19:29 EST documented in this encounter Results * CT OUTSIDE IMAGES NEURO (03/15/2021 19:29 EST) Narrative 03/15/2021 19:29 EST This is a non-reportable exam. Provider Unknown MD ANSARI OTHER IMAGING OR DERABLES documented in this encounter Visit Diagnoses Not on filedocumented in this encounter Additional Health Concerns Infection Onset Date Last Indicated Resolved Time COVID-19 02/23/2021 02/23/2021 03/15/2021 22:1 5 EST documented as of this encounter Care Teams Underwriting Manager Relationship Specialty Start Date End Date Frances Sorensen FNP [address] [place] [address] [place] [phone] PCP - General 06/04/20 documented as of this encounter
--- OUTSIDE RECORDS SUMMARY | 2023-12-27 19:50 | XMS_ITS | Encounter Summary ---
Author Organization [facility] Address [address] [place] [address] Care Team Providers Care Riveter Helper Name Role Phone Frances Sorensen MONICA Primary Care Provider [phone] Encounter Details Date Type Department Care Team (Late st Contact Info) Description 02/23/2021 Lab Requisition [facility] Pathology & [place] [address] Outr Resulting Lab, Provider Social History Tobacco [...] Priority Date/Time Associated Diagnosis Comments ZZCOVID-19 TEST [facility] PCR Today 02/23/2021 11:00 EDT COVID-19 TESTING Routine 02/23/2021 11:0 0 EDT documented in this encounter Results * COVID-19 TEST [facility] PCR (02/23/2021 11:00 EDT) Swab ENTIRE NASOPHARYNX / Unknown 02/23/2021 11:00 EDT 02/23/2021 21:30 EDT Provider Outr Resulting Lab MICROBIOLOGY - GENERAL ORDERABLES Performing Organization Address [facility] Co de Phone Number [facility] [address] [place] [address] * (ABNORMAL) COVID-19 TESTING (02/23/2021 11:00 EDT) COVID-19 rt-PCR Result Positive( AA) Negative 02/24/2021 17:12 EDT [facility] Comment: This test [...] the authorization is terminated or revoked sooner. Testing was performed using the pretty SARS-CoV-2 assay ([employer] on the Pretty 6800 System Performing Lab Pretty 6800 [facility] 02/24/2021 17:12 EDT [facility] Swab 02/23/2021 11:0 0 EDT 02/23/2021 21:30 EDT Provider Outr Resulting Lab MICROBIOLOGY - GENERAL ORDERABLES Performing Organization Address City/[facility]/ZIP Co de Phone Number [facility] [address] [place] [address] documented in this encounter Visit Diagnoses Not on filedocumented in this encounter Additional Health Concerns Infection Onset Date Last Indicated Resolved Time COVID-19 02/23/2021 02/23/2021 03/15/2021 22:1 5 EST documented as of this encounter Care Teams Riveter Helper Relationship Specialty Start Date End Date Frances Sorensen FNP [address] [phone] PCP - General 06/04/20 documented as of this encounter
--- OUTSIDE RECORDS SUMMARY | 2023-12-27 19:50 | XMS_ITS | Encounter Summary ---
Author Organization [facility] Address [address] [place] [address] Care Team Providers Care Java Websphere Developer Name Role Phone Frances Sorensen Primary Care Provider [phone] Reason for Visit * (Routine/Next Available) - Receiving Office to Obtain Authorization Specialty Diagnoses / Procedures Referred By Contac t Referred To Contact Procedures CT OUTSIDE IMAGES NEURO Unknown, Provider, Referral ID Status Reason Start Date Expiration Date Visits Requested Visits Authorized [id number] Receiving Office to Obtain Authorization 04/01/2021 1 1 Encounter Details Date Type Department Care Team (Latest Contact Info) Description 04/01/2021 19:19 EST - 04/01/2021 23:59 EST Hospital Encounter [facility] Secondary Reads [place] Discharge Disposition: Home [...] Diagnosis Comments CT OUTSIDE IMAGES NEURO Routine 04/01/2021 19:19 EST documented in this encounter Results * CT OUTSIDE IMAGES NEURO (04/01/2021 19:19 EST) Narrative 04/01/2021 19:19 EST This is a non-reportable exam. Provider Unknown MD ANSARI OTHER IMAGING OR DERABLES documented in this encounter Visit Diagnoses Not on filedocumented in this encounter Care Teams Java Websphere Developer Relationship Specialty Start Date End Date Frances Sorensen FNP [address] [place] [phone] PCP - General 06/04/20 documented as of this encounter
--- OUTSIDE RECORDS SUMMARY | 2023-12-27 19:50 | XMS_ITS | Encounter Summary ---
Author Organization [facility] [place] [address] Care Team Providers Care Telescope Maintenance Name Role Phone Apple Walters Matthias ALVAREZ Primary Care Provider [phone] Reason for Visit * Reason Comments Follow-up returned MARY today; son erased 1 recording. Frequently feels like her heart is beating fast all the time. Dizziness feels dizziness as t imes Encounter Details Date Type Department Care Team (Late st Contact Info) Description 03/12/2014 3:00 PM EST Follow-Up Cardiology at [address] [phone] David Naik Jr., MD [address] [place], [place] [phone] PSVT (paroxysmal supraventricular tachycardia) Social History Tobacco [...] Sign Reading Time Taken Comments Blood Pressure 102/66 03/12/2014 3:02 PM EST Pulse 98 03/12/2014 3:02 PM EST regul ar Temperature - - Respiratory Rate - - Oxygen Saturation - - Inhaled Oxygen Concentration - - Weight 82.1 kg (181 lb) 03/12/2014 3:02 PM EST Height - - Body Mass Index 33.11 01/24/2014 11:17 AM EDT documented in this encounter Progress Notes * David Naik Jr., MD - 03/12/2014 3:17 PM EST Subjective: Patient ID: Ghada Ervin is a 23 y.o. female. Chief Complaint Patient presents with ??? Follow-up returned MARY today; son erased 1 recording. Frequently feels like her heart is beating fast all the time. ??? Dizziness feels dizziness as times HPI She has continued to have episodes of palpitations. On the loop recorder sometimes she has sinus tachycardia but she had 1 episode of SVT at 212 BPM. She has no other complaints. Review of Systems Denies other issues Allergies Allergen Reactions ??? Bee Pollen Anaphylaxis ??? Meperidine Hcl flushing, respiratory trouble, Anaphylaxis Current Outpatient Prescriptions Medication Sig Dispense Refill ??? promethazine (PHENERGAN) 12.5 mg Tablet Take 12.5 mg by mouth every 6 hours as needed. ??? Mometasone 50 mcg/actuation [place], Non-Aerosol 1 spray by Nasal route as needed. ??? Magnesium 250 mg Tablet Take 1 tablet by mouth daily. ??? Aut-Ggluuedjbh-Abyiseyqxt-Caf 20-321-31-30 mg Capsule Take 1 tablet by mouth [...] Fibromyalgia ??? Migraines Objective: Physical Exam BP 102/66 Pulse 98 Wt 82.101 kg (181 lb) NAD No JVD/HJR Chest clear Cor RR, 1/6 murmur Abd benign, Ext no edema Assessment and Plan: Reviewed risks and benefits of beta kaitlin use in - given the rate of her tachycardia there is decreased blood flow during an episode so the benefits clearly outweigh the risks. I will start her on a low dose, metoprolol 25 mg and check by phone to see how she is doing with it. The dose will be inched up as necessary. Plan would be to taper it off 2-3 months post delivery. documented in this encounter Plan of Treatment Upcoming Encounters Date Type Department Care Team (Late st Contact Info) Description 01/24/2024 3:40 PM EDT Office Visit Cardiology at [address] [phone] [facility] [place] [address] documented as of this encounter Visit Diagnoses Diagnosis PSVT (paroxysmal supraventricular tachycardia) Paroxysmal supraventricular tachycardia documented in this encounter Care Teams Telescope Maintenance Relationship Specialty Start Date End Date Apple Walters APRN PCP - General 01/14/14 06/19/16 documented as of this encounter
--- OUTSIDE RECORDS SUMMARY | 2023-12-27 19:50 | XMS_ITS | Encounter Summary ---
Author Organization [facility] [place] [address] Care Team Providers Care Membership Sales Representative Name Role Phone Apple Walters APRN Primary Care Provider [phone] Encounter Details Date Type Department Care Team (Late st Contact Info) Description 01/15/2014 Abstract Cardiology at [address] [phone] Olga Pedro RN Social History Tobacco Use Types Packs/Day [...] PM EDT Office Visit Cardiology at [address] [phone] Rangel Willams MD [facility] [place] [address] documented as of this encounter Visit Diagnoses Not on filedocumented in this encounter Care Teams Membership Sales Representative Relationship Specialty Start Date End Date Apple Walters APRN PCP - General 01/14/14 06/19/16 documented as of this encounter
--- OUTSIDE RECORDS SUMMARY | 2023-12-27 19:50 | XMS_ITS | Encounter Summary ---
Author Organization [facility] Address [address] [place] [address] Care Team Providers Care Senior Cyber Intelligence Analyst Name Role Phone EduFrances MONICA Primary Care Provider [phone] Encounter Details Date Type Department Care Team (Late st Contact Info) Description 02/15/2022 Lab Requisition [facility] Pathology & Laboratory Medicine - [address] [address] Outr Resulting Lab, Provider Social History Tobacco [...] Diagnosis Comments HCV RNA DETECT QUANT Routine 02/15/2022 10:50 EDT documented in this encounter Results * HCV RNA DETECT QUANT (02/15/2022 10:50 EDT) HCV RNA Qualitative Undetected Undetected 02/17/2022 12:52 EDT [facility] Blood VENOUS BLOOD / Unknown 02/15/2022 10:50 EDT 02/16/2022 16:53 EDT Narrative [facility] - 02/17/2022 12:52 EDT The quantification range of this assay is 15 IU/mL to 100,000,000 IU/mL. Testing was performed using the Pretty HCV test ([employer] with the pretty [employer] System. Provider Outr Resulting Lab CHEMISTRY & BLOOD GAS ORDERABLES [facility] [address] [place] [address] documented in this encounter Visit Diagnoses Not on filedocumented in this encounter Care Teams Senior Cyber Intelligence Analyst Relationship Specialty Start Date End Date Frances Sorensen FNP [address] [place] [phone] PCP - General 06/04/20 documented as of this encounter
--- OUTSIDE RECORDS SUMMARY | 2023-12-27 19:50 | XMS_ITS | Encounter Summary ---
Author Organization [facility] [place] [address] Care Team Providers Care Student Development Dean Name Role Phone Unavailable Primary Care Provider Unavailabl e Encounter Details Date Type Department Care Team (Late st Contact Info) Description 03/03/2010 11:15 AM EST Office Visit [place] [address] Michelle Curiel, [facility] [place] [address] Social History Tobacco Use Types Packs/Day Years [...] PM EDT Office Visit Cardiology at [address] [address] Rangel Willams MD [facility] [place] [address] documented as of this encounter Visit Diagnoses Not on filedocumented in this encounter
--- OUTSIDE RECORDS SUMMARY | 2023-12-27 19:51 | XMS_ITS | Encounter Summary ---
Author Organization [facility] Address [address] [place] [address] Care Team Providers Care Stonecutter Assistant Name Role Phone Unknown, Provider Primary Care Provider [phone] Reason for Visit * Reason Onset Date Comments Appointment Related 06/06/2019 Encounter Details Date Type Department Care Team (Late st Contact Info) Description 06/06/2019 Telephone [facility] Rheumatology & Immunology - [address] [address] Chad Rodriguez Chi, MD [address] [facility], [address] [place] [address] Appointment Related Social History Tobacco Use Types Packs/Day Years Used Date Smoking Tobacco: Never Assessed Sex and Gender Information Value Date Recorded Sex Assigned at Not on file Gender Identity Female 06/04/2020 14:16 EST Sexual Orientation Not on file documented as of this encounter Miscellaneous Notes * Telephone Encounter - Trisha Lorenz - 06/06/2019 1144 EST Classification Case Manager attempted to contact the patient 3 times with no luck. documented in this encounter Plan of Treatment Not on file documented as of this encounter Visit Diagnoses Not on filedocumented in this encounter Care Teams Stonecutter Assistant Relationship Specialty Start Date End Date Unknown, Provider, PCP - General 03/11/11 06/03/20 documented as of this encounter
--- OUTSIDE RECORDS SUMMARY | 2023-12-27 19:51 | XMS_ITS | Encounter Summary ---
Author Organization [facility] Address [address] [place] [address] Care Team Providers Care Vacuum Cleaner Operator Name Role Phone Frances Sorensen MONICA Primary Care Provider [phone] Encounter Details Date Type Department Care Team (Late st Contact Info) Description 12/02/2020 Lab Requisition [facility] Pathology & [place] [address] Outr Resulting Lab, Provider Social History Tobacco [...] Comments ZZCOVID-19 TEST [facility] PCR Today 12/02/2020 11:00 EDT COVID-19 TESTING Routine 12/02/2020 11:0 0 EDT documented in this encounter Results * COVID-19 TEST [facility] PCR (12/02/2020 11:00 EDT) Swab ENTIRE NASOPHARYNX / Unknown 12/02/2020 11:00 EDT 12/02/2020 21:03 EDT Provider Outr Resulting Lab MICROBIOLOGY - GENERAL ORDERABLES [facility] [address] [place] [address] * COVID-19 TESTING (12/02/2020 11:00 EDT) COVID-19 rt-PCR Result Negative Negative 12/03/2020 12:39 EDT [facility] Comment: This test has not [...] clinical observations, patient history, and epidemiological information. Performed on the [employer] Fusion instrument Performing Lab [place] [facility] 12/03/2020 12:39 EDT [facility] Swab 12/02/2020 11:0 0 EDT 12/02/2020 21:03 EDT Provider Outr Resulting Lab MICROBIOLOGY - GENERAL ORDERABLES [facility] [address] [place] [address] documented in this encounter Visit Diagnoses Not on filedocumented in this encounter Additional Health Concerns Infection Onset Date Last Indicated Resolved Time COVID-19 02/23/2021 02/23/2021 03/15/2021 22:1 5 EST documented as of this encounter Care Teams Vacuum Cleaner Operator Relationship Specialty Start Date End Date Frances Sorensen FNP [address] [facility] [address] [place] [phone] PCP - General 06/04/20 documented as of this encounter
--- OUTSIDE RECORDS SUMMARY | 2023-12-27 19:51 | XMS_ITS | Encounter Summary ---
Author Organization [facility] Address [address] [place] [address] Care Team Providers Care Archeology Faculty Member Name Role Phone Frances Sorensen Primary Care Provider [phone] Encounter Details Date Type Department Care Team (Latest Contact Info) Description 06/04/2020 Travel Social History Tobacco Use Types Packs/Day Years Used Date Smoking Tobacco: Never Assessed Interpersonal Safety Answer Date Record ed Physically [...] or suspected to have Coronavirus / COVID-19? No / Unsure 06/04/2020 14:14 EST documented as of this encounter Plan of Treatment Not on file documented as of this encounter Visit Diagnoses Not on filedocumented in this encounter Care Teams Archeology Faculty Member Relationship Specialty Start Date End Date Frances Sorensen FNP [address] [place] [phone] PCP - General 06/04/20 documented as of this encounter
--- OUTSIDE RECORDS SUMMARY | 2023-12-27 19:51 | XMS_ITS | Encounter Summary ---
Author Organization [facility] Address [address] [place] [address] Care Team Providers Care Exploration Engineer Name Role Phone Unknown, Provider Primary Care Provider Encounter Details Date Type Department Care Team (Late st Contact Info) Description 03/09/2011 Results Only [facility] Laboratory Services - [facility] [address] [place], [place] [id number] Stephanie Quiñonez, SAHRA [address] [place] [address] Social History Tobacco Use Types Packs/Day Years Used Date Smoking Tobacco: Never Assessed Sex and Gender Information Value Date Recorded Sex Assigned at Not on file Gender Identity Female 06/04/2020 14:16 EST Sexual Orientation Not on file documented as of this encounter Plan of Treatment Not on file documented as of this encounter Procedures Procedure Name Priority Date/Time Associated Diagnosis Comments PAP TEST- RESULT ONLY Routine 03/09/2011 0:00 EST documented in this encounter Results * PAP TEST- RESULT ONLY (03/09/2011 0:00 EST) Pathology Report: CYTOPATHOLOGY REPORT Reports generated via electronic interface contain original data; however they are lacking the format of the original report. Caution should be taken when reading/interpreti ng unformatted reports. Name: ? GHADA MOORE ? Accession #: ? [id number] : ? 1990 (Age: 20) ??F ?Collect Date: ? 03/09/2011 Location: ? [facility] ? Receive Date: ? 03/11/2011 Provider: ?STEPHANIE QUIÑONEZ VACUUM FRAME OPERATOR Copy to: ? Specimen/Source: ?Pap Test, Cervix/Endocervix, ThinPrep Imaging System with manual evaluation Last Menstrual Period: ? 01/30/2011 Hormonal/Contracep tive Status: ? Yes: LUTERA Condoms ? SPECIMEN ADEQUACY ? Satisfactory for Evaluation - transformation zone component present GENERAL CATEGORIZATION ? Negative for Intraepithelial Lesion or Malignancy ? Document reviewed and electronically signed by: ? AMILCAR Brock(ASCP) ? Report Date: ??03/16/2011 15:48 End of Report NAVID FISHER 03/09/2011 03/11/2011 Stephanie Quiñonez VACUUM FRAME OPERATOR PATHOLOGY ORDERABLES Performing Organization Address City/State/[facility] Co de Phone Number NAVID FISHER [address] [place] [address] documented in this encounter Visit Diagnoses Not on filedocumented in this encounter Care Teams Exploration Engineer Relationship Specialty Start Date End Date Unknown, Provider, PCP - General 03/11/11 06/03/20 documented as of this encounter
--- OUTSIDE RECORDS SUMMARY | 2023-12-27 19:51 | XMS_ITS | Encounter Summary ---
Author Organization [facility] Address [address] [place] [address] Care Team Providers Care Dental Floss Packer Name Role Phone Frances Sorensen MONICA Primary Care Provider [phone] Reason for Visit * Reason Onset Date Comments Appointment Related 07/24/2020 Encounter Details Date Type Department Care Team (Late st Contact Info) Description 07/24/2020 Telephone [facility] Rheumatology & Immunology - [facility] [address] [place], [place] [id number] Jonnathan Villalobos MD [address] [place] [address], [address] [place] [address] Appointment Related Social History Tobacco [...] have Coronavirus / COVID-19? No / Unsure 07/24/2020 13:27 EDT documented as of this encounter Functional [...] Miscellaneous Notes * Telephone Encounter - Ignacia Daniel - 07/24/2020 1052 EDT noted * Telephone Encounter - Umer Mo - 07/24/2020 1047 EDT Patient called to say she may be a few minutes late for her 11:20 appointment today. She will be fewer than 20 minutes late. documented in this encounter Plan of Treatment Not on file documented as of this encounter Visit Diagnoses Not on filedocumented in this encounter Care Teams Dental Floss Packer Relationship Specialty Start Date End Date Frances Sorensen FNP [address] [facility] [address] [place] [phone] PCP - General 06/04/20 documented as of this encounter
--- OUTSIDE RECORDS SUMMARY | 2023-12-27 19:51 | XMS_ITS | Encounter Summary ---
Author Organization [facility] Address [address] [place] [id number] Care Team Providers Care Glass Cut Off Supervisor Name Role Phone Frances Sorensen MONICA Primary Care Provider [phone] Reason for Referral * Radiology Services (Routine) - Closed Specialty Diagnoses / Procedures Referred By Contac t Referred To Contact Diagnoses Inflammatory arthritis Procedures XR HAND RIGHT 1-2 VIEWS Jonnathan Villalobos MD [address] [place] [phone] Referral ID Status Reason Start Date Expiration Date Visits Re quested Visits Authorized [id number] Closed 07/24/2020 1 1 * Radiology Services (Routine) - Closed Specialty Diagnoses / Procedures Referred By Contac t Referred To Contact Diagnoses Inflammatory arthritis Procedures XR HAND LEFT 1-2 VIEWS Jonnathan Villalobos MD [address] [place] [phone] Referral ID Status Reason Start Date Expiration Date Visits Re quested Visits Authorized [id number] Closed 07/24/2020 1 1 Reason for Visit * Reason Comments New Patient Visit alot of health issue s Joint Pain hands and feet Neck Pain T3 to T12 has a sonya * Referral (Routine) - Closed Specialty Diagnoses / Procedures Referred By Contac t Referred To Contact Rheumatology Diagnoses Pain in unspecified joint Frances Sorensen FNP [address] [facility] [address] [place] [address] [facility] Ep Rheumatology [address] [place] [id number] Referral ID Status Reason Start Date Expiration Date Visits Re quested Visits Authorized [id number] Closed 1 1 Encounter Details Date Type Department Care Team (Late st Contact Info) Description 07/24/2020 11:20 EDT Office Visit [facility] Rheumatology & Immunology - [address] [phone] Jonnathan Villalobos MD [address] [place] [address], [address] [place] [address] Polyarthralgia (Primary Dx); Inflammatory arthritis; Fibromyalgia; Chronic fatigue; Screening for viral disease; Chronic hepatitis C without hepatic coma (HCC-CMS) Social History Tobacco Use Types Packs/Day Years [...] 13:27 EDT documented as of this encounter Last Filed [...] Body Mass Index 47.54 07/24/2020 1155 EDT documented in this encounter Functional Status Functional Status Response [...] Yes 07/24/2020 documented as of this encounter Patient Instructions * Patient Instructions* Jonnathan Villalobos MD - 07/24/2020 11:20 EDT Please follow up with Bench Inspector to be started on treatment for Hepatitis C. Your joint pains are likely due to Hepatitis C related arthritis. - get lab work today (2nd floor) - get X rays today (3rd floor) - start Hydroxychloroquine 400mg daily - You will need to get eye exam by restaurant managing partner atleast once a year to look for any Hydroxychloroquine eye toxicity - use artificial tears - try Xylitol lozenges (Xylimelts), try sugar-free gum or citrus lozenges to help produce more saliva Return to visit in 3 months documented in this encounter Ordered Prescriptions Prescription Sig Dispensed Refills Start Date End Da te hydrOXYchloroQUINE (PLAQUENIL) 200 mg tabletIndications:Inflammat ory arthritis Take 2 Tabs by mouth daily. 60 Tab 3 07/24/2020 documented in this encounter Progress Notes * Jonnathan Villalobos MD - 07/24/2020 1120 EDT Division of Rheumatology and Clinical Immunology Date of Service: 07/24/20 Reason for Consult: Joint pain Referring Provider: Frances Sorensen FNP History of Present Illness: Ghada Ervin is a 29 y.o. female with PMHx as below. Reports having had multiple joint pains for many years. Reports worsening of pain in Neck, BL hand (MCPs, PIPs), wrists, feet since past 6 months. Pain is worse: Mornings, with activity Pain is better: nothing makes it better. Swelling in joints: hands (MCPs, PIPs). Morning Stiffness: 2 hours. Medications tried: Tylenol, Naproxen helps a little. Lyrica helps a little with sciatica, BL shoulder pain, and fibromyalgia. She has started doing [facility], which has not helped with pain yet, but she feels stronger. Has dry eyes, dry mouth. She uses eye drops. Reports severe fatigue, brain fog. Reports chronic poor sleep, does not feel refreshed after night's sleep. Does have anxiety, depression. Reports some redness with itching of skin over dorsum of hands (proximal phalanx), knees, ankles. <> Denies frequent sinusitis, cough, SOB, hemoptysis, chest pain, abdominal pain. <> Denies h/o Psoriasis, dactylitis (swelling in fingers lasts few hours), uveitis/eye inflammation. Denies family h/o Psoriasis, Ankylosing Spondylitis, Crohn's disease, Ulcerative colitis. <> Denies h/o photosensitivity, oral ulcers, serositis (pleuritis, pericarditis), hemolytic anemia, leukopenia/lymphopenia, thrombocytopenia, kidney disease. Has been 2 times, 3 live births (twins in 2nd preg), 0 miscarriages. Denies h/o DVT, artrerial thrombosis. <> Denies h/o skin thickening/tightening, finger tip ulcers, Raynaud's Phenomenon (fingers turning pale with cold exposure). Denies fever, weight loss. There are no active problems to display for this patient. Current Outpatient Medications Medication Sig ??? acetaminophen (TYLENOL) 500 mg tablet Take 500 mg by mouth as needed for Pain. ??? ALBUTEROL SULFATE INHALATION Inhale as directed as needed. ??? cyclobenzaprine (FLEXERIL) 5 mg tablet Take 5 mg by mouth 2 times daily as needed for Muscle Spasms. ??? DUCODYL, BISACODYL, ORAL Take by mouth as needed. ??? esomeprazole (NEXIUM) 40 mg capsule Take 40 mg by mouth daily. ??? fluticasone propionate (FLOVENT HFA INHALATION) Inhale 2 Puffs as directed twice a week. ??? hydrOXYzine (ATARAX) 25 mg tablet Take 25 mg by mouth as needed for Itching. ??? lisinopriL (PRINIVIL) 10 mg tablet Take 10 mg by mouth daily. ??? methadone HCl (METHADONE ORAL) Take 114 mg by mouth daily. ??? naproxen (NAPROSYN) 500 mg tablet Take 500 mg by mouth 2 times daily. ??? ondansetron (ZOFRAN) 4 mg tablet Take 8 mg by mouth as needed for Nausea. ??? paroxetine (PAXIL-CR) 25 mg CR tablet Take 25 mg by mouth daily. ??? polyethylene glycol 3350 (MIRALAX ORAL) Take by mouth as needed. ??? pregabalin (LYRICA) 150 mg capsule Take 150 mg by mouth 2 times daily. ??? pregabalin (LYRICA) 75 mg capsule Take 75 mg by mouth daily. ALLERGIES: Demerol [meperidine], [place], and Zoloft [sertraline] Past Medical History: Diagnosis Date ??? Cerebral aneurysm ??? Chronic hepatitis C virus infection (HCC-CMS) ??? Fibromyalgia ??? Scoliosis ??? Stroke (HCC-CMS) Past Surgical History: Procedure Laterality Date ??? BUNIONECTOMY Left 2009 ??? SECTION 2 ??? SPINAL FUSION 2008 T3-T12. For Scoliosis Family History Problem Relation Age of Onset ??? Arthritis-Rheumatoid Mother ??? Hypertension Father ??? Diabetes Father ??? Heart Attack Father Social History Socioeconomic History ??? Marital status: [...] Smoking status: Current Every Day Smoker Packs/day: 0.50 Years: 15.00 Pack years: 7.50 Types: Cigarettes ??? Smokeless tobacco: Never Used Substance and Sexual Activity ??? Alcohol use: Not Currently ??? Drug use: Not Currently Types: Marijuana Comment: Occasional Marijuna. Last used IV Heroin, Cocaine in 2017 ??? Sexual activity: Not on file Lifestyle ??? Physical activity Days per week: Not on file Minutes per session: Not on file ??? Stress: Not on file Relationships ??? Social connections Talks on phone: Not on file Gets together: Not on file Attends judaism service: Not on file Active member of [...] Social History Narrative ??? Not on file REVIEW OF SYSTEMS: 10 organ review of system was negative except as in HPI PHYSICAL EXAMINATION: BP (!) 132/93 (BP Cuff Location: Left arm, BP Patient Position: Sitting, BP Cuff Sizes: Adult, regular) Pulse (!) 114 Ht 158.1 cm (62.25) Wt (!) 118.8 kg (262 lb) LMP 07/20/2020 BMI 47.54 kg/m?? Constitutional: Not in distress Head: Normocephalic Eyes: No erythema. Conjunctiva moist Mouth: No oral ulcers. Mucosa moist. Lymph nodes: No cervical lymphadenopathy Cardiac: Normal rate, rhythm. Normal S1S2, no murmurs Pulmonary: Normal breath sounds on auscultation. Abdominal: No organomegaly, soft, nontender. Neurological: AOx3. Extremity: No edema Skin: no rashes. MSK Exam: Neck: Intact ROM Back: Intact ROM, B/L SI Joint Non-tender Shoulder: Intact ROM. No tenderness, swelling in b/l shoulders. Elbows: tenderness over BL lateral epicondyles. Wrists, Hands: has Moderate tenderness in BL MCPs, mild tenderness in BL wrists, BL PIPs. Minimal tenderness over BL #2-5 Proximal Phalanges. Possible mild warmth in these joints. No apparent joint swelling. Has difficulty making tight fists BL Hips: Intact ROM, no tenderness with ROM Knees: No joint swelling, tenderness, erythema. Intact ROM Ankles, Feet: Has moderate tenderness in BL ankles, BL MTPs. No swelling. Intact ROM. No skin tightness in hands. No nail pitting or onycholysis No Dactylitis, Enthesitis. Review of Outside Records/Tests: LABS Results for orders placed or performed in visit on 07/24/20 TSH Result Value Ref Range TSH 0.30 (L) 0.47 - 4.68 uIU/mL RHEUMATOID FACTOR Result Value Ref Range Rheumatoid Factor <8.6 <12.0 IU/mL C REACTIVE PROTEIN Result Value Ref Range C-Reactive Protein 21.8 (H) <10.0 mg/L SED. RATE:WESTERGREN Result Value Ref Range Sed. Rate Westergren 57 (H) 0 - 20 mm/hr COMPLETE BLOOD COUNT AND DIFFERENTIAL Result Value Ref Range WBC 8.66 4.00 - 12.40 K/cmm RBC 3.92 3.86 - 5.04 M/cmm Hemoglobin 10.2 (L) 11.6 - 15.2 gm/dL HCT 32.3 (L) 34.9 - 44.4 % MCV 82 81 - 98 fl MCH 26.0 (L) 26.7 - 33.3 pg Hypochromia 1+ MCHC 31.6 (L) 32.1 - 35.9 gm/dL RDW-CV 15.1 (H) <14.7 % RDW-SD 45.1 <50.4 fl Anisocytosis PLT 367 141 - 377 K/cmm MPV 11.2 9.5 - 12.7 fl Neutrophils 54.4 % Lymphocytes 36.4 % Monocytes 6.9 % Eosinophils 1.7 % Basophils 0.3 % Immature Grans 0.3 % Absolute Neutrophils 4.70 2.20 - 8.85 K/cmm Absolute Lymphocytes 3.15 1.09 - 3.30 K/cmm Absolute Monocytes 0.60 0.10 - 0.80 K/cmm Absolute Eosinophils 0.15 0.03 - 0.61 K/cmm Absolute Basophils 0.03 0.01 - 0.11 K/cmm Absolute Immature Grans 0.03 0.00 - 0.06 K/cmm Type of Differential: Auto COMPREHENSIVE METABOLIC PANEL (CMP) Result Value Ref Range Sodium 138 136 - 145 mEq/L Potassium 4.4 3.5 - 5.0 mEq/L Chloride 100 96 - 110 mEq/L CO2 Total 26 22 - 32 mEq/L Glucose 144 (H) 70 - 100 mg/dL BUN 21 10 - 26 mg/dL Creatinine 0.62 0.52 - 1.04 mg/dL eGFR 121 >60 mL/min/1.73m2 Total Protein 7.7 6.3 - 8.2 g/dL Albumin 3.8 3.4 - 4.9 g/dL Alkaline Phosphatase 188 (H) 38 - 126 U/L AST 49 (H) 15 - 46 U/L ALT 51 (H) <35 U/L Bilirubin, Total <0.5 <1.4 mg/dL Calcium 8.9 8.5 - 10.5 mg/dL Calculated Calcium 9.1 8.5 - 10.5 mg/dL IMAGING: XR HAND RIGHT 1-2 VIEWS, XR HAND LEFT 1-2 VIEWS 07/24/2020 ?? SIGNS AND SYMPTOMS/COMMENTS: Chronic hand pain, evaluate for inflammatory arthritis ?? COMPARISON: None available. ?? TECHNIQUE: PA and ball-catcher's views of the right and left hand were obtained. ?? FINDINGS: ?? Right hand: No evidence of fracture, dislocation, suspicious osseous lesion, or periarticular erosion. The joint spaces are preserved. No significant soft tissue abnormality. ?? Left main: No evidence of fracture, dislocation, suspicious osseous lesion, or periarticular erosion. The joint spaces are preserved. No significant soft tissue abnormality. ?? IMPRESSION ?? 1. Normal radiographs of the right and left hand. Diagnosis / Assessment: ICD-10-CM ICD-9-CM 1. Polyarthralgia M25.50 719.49 2. Inflammatory arthritis M19.90 714.9 3. Fibromyalgia M79.7 729.1 4. Chronic fatigue R53.82 780.79 5. Screening for viral disease Z11.59 V73.99 6. Chronic hepatitis C without hepatic coma ([facility]) B18.2 070.54 1) Polyarthralgia, Chronic Fatigue, Possible Inflammatory arthritis: - history is suggestive of both inflammatory and non-inflammatory arthritis -Synovitis noted on exam -given history of chronic hepatitis C, patient may have hepatitis C related arthritis -Some of patient's joint pains, chronic fatigue is likely due to fibromyalgia - Work up Labs: - (07/2020) ESR: Elevated, CRP: Elevated. Elevated ESR could be due to hypergammaglobulinemia that can be seen in hepatitis C - RF: (-), CCP: (pending) - ALFREDO, dsDNA, SM, MANAGER REPORT, SSA, SSB : Pending -C3, C4: Pending - Hep B & C screen: Pending -TSH: Low, free T3, T4 pending - Imaging: - X ray: -Hand BL: Normal (07/2020) - Monitoring Labs: - 07/2020: -CBC differential: Normocytic anemia, WBC, platelets -CMP: Mildly elevated liver enzymes, normal renal function - Given that patient has chronic hepatitis C, we cannot use immunosuppressive medications -We will need to wait for patient to complete hepatitis C treatment and then may consider immunosuppression if needed -Benefits and risks of hydroxychloroquine discussed -We will start patient on Hydroxychloroquine 400mg daily to help with inflammatory arthritis Recommendations/Evaluation: Patient Instructions Please follow up with Bench Inspector to be started on treatment for Hepatitis C. Your joint pains are likely due to Hepatitis C related arthritis. - get lab work today (2nd floor) - get X rays today (3rd floor) - start Hydroxychloroquine 400mg daily - You will need to get eye exam by restaurant managing partner atleast once a year to look for any Hydroxychloroquine eye toxicity - use artificial tears - try Xylitol lozenges (Xylimelts), try sugar-free gum or citrus lozenges to help produce more saliva Return to visit in 3 months I spent a total of 65 minutes on the date of this encounter meeting with the patient and reviewing documentation/coordinating care as described in the above note. No procedures were performed at the time of the visit. Jonnathan Villalobos MD documented in this encounter Plan of Treatment Not on file documented as of this encounter Procedures Procedure Name Priority Date/Time Associated Diagnosis Comments T3 FREE Add-On 07/24/2020 13:47 EDT Chronic fatigue T4 FREE Add-On 07/24/2020 13:47 EDT Chronic fatigue documented in this encounter Results * (ABNORMAL) T4 FREE (07/24/2020 13:47 EDT) T4, Free 2.3(H) 0.8 - 2.2 ng/dL 07/27/2020 0:59 EDT [facility] Blood VENOUS BLOOD / Unknown Venipuncture / Unknown 07/24/2020 13:47 EDT 07/24/2020 14:28 EDT Jonnathan Villalobos MD CHEMISTRY & BLOOD GA S ORDERABLES Performing Organization Address City/[facility]/ZIP Co de Phone Number [facility] [address] [place] [address] * (ABNORMAL) T3 FREE (07/24/2020 13:47 EDT) T3, Free 11.0(H) 2.8 - 5.3 pg/mL 07/27/2020 0:59 EDT [facility] Blood VENOUS BLOOD / Unknown Venipuncture / Unknown 07/24/2020 13:47 EDT 07/24/2020 14:28 EDT Jonnathan Villalobos MD CHEMISTRY & BLOOD GA S ORDERABLES Performing Organization Address [facility] Co de Phone Number [facility] [address] [place] [address] * HEPATITIS B SURFACE ANTIGEN (07/24/2020 13:47 EDT) Pathologist [facility] Hep B Surface Ag Negative Negative 07/27/2020 9:44 EDT [facility] Blood VENOUS BLOOD / Unknown Venipuncture / Unknown 07/24/2020 13:47 EDT 07/24/2020 14:28 EDT Jonnathan Villalobos MD CHEMISTRY & BLOOD GA S ORDERABLES Performing Organization Address [facility] Co de Phone Number [facility] [address] [place] [address] * HEPATITIS B CORE ANTIBODY (TOTAL) (07/24/2020 13:47 EDT) Pathologist [facility] Hepatitis B Core Ab, Total Negative Negative 07/27/2020 10:00 EDT [facility] Blood VENOUS BLOOD / Unknown Venipuncture / Unknown 07/24/2020 13:47 EDT 07/24/2020 14:27 EDT Jonnathan Villalobos MD CHEMISTRY & BLOOD GA S ORDERABLES Performing Organization Address [facility]/ZIP Co de Phone Number [facility] [address] [place] [address] * (ABNORMAL) HEPATITIS C AB W REFLEX TO HCV RNA BY PCR (07/24/2020 13:47 EDT) Hep C Antibody Reactive(A ) Negative 07/27/2020 11:02 EDT [facility] Comment: Supplemental testing for HCV RNA is ordered to rule out active HCV infection. Blood VENOUS BLOOD / Unknown Venipuncture / Unknown 07/24/2020 13:47 EDT 07/24/2020 14:27 EDT Jonnathan Villalobos MD CHEMISTRY & BLOOD GA S ORDERABLES Performing Organization Address [facility] Co de Phone Number [facility] [address] [place] [address] * (ABNORMAL) COMPREHENSIVE METABOLIC PANEL (CMP) (07/24/2020 13:47 EDT) Pathologist [facility] Sodium 138 136 - 145 mEq/L 07/24/2020 14:54 [facility] Potassium 4.4 3.5 - 5.0 mEq/L 07/24/2020 14:54 [facility] Chloride 100 96 - 110 mEq/L 07/24/2020 14:54 [facility] CO2 Total 26 22 - 32 mEq/L 07/24/2020 14:54 [facility] Glucose 144(H) 70 - 100 mg/dL 07/24/2020 14:54 [facility] BUN 21 10 - 26 mg/dL 07/24/2020 14:54 [facility] Creatinine 0.62 0.52 - 1.04 mg/dL 07/24/2020 14:54 [facility] eGFR 121 >60 mL/min/1.7 3m2 07/24/2020 14:54 [facility] Comment:eGFR calculated berkley pleitez CKD-EPI equation for non- Americans. Multiply eGFR by 1.16 for patients. Total Protein 7.7 6.3 - 8.2 g/dL 07/24/2020 14:54 [facility] Albumin 3.8 3.4 - 4.9 g/dL 07/24/2020 14:54 [facility] Alkaline Phosphatase 188(H) 38 - 126 U/L 07/24/2020 14:54 [facility] AST 49(H) 15 - 46 U/L 07/24/2020 14:54 [facility] ALT 51(H) <35 U/L 07/24/2020 14:54 [facility] Bilirubin, Total <0.5 <1.4 mg/dL 07/25/19 14:54 [facility] Calcium 8.9 8.5 - 10.5 mg/dL 07/24/2020 14:54 [facility] Calculated Calcium 9.1 8.5 - 10.5 mg/dL 07/24/2020 14:54 [facility] Blood VENOUS BLOOD / Unknown Venipuncture / Unknown 07/24/2020 13:47 EDT 07/24/2020 14:27 EDT Jonnathan Villalobos MD CHEMISTRY & BLOOD GA S ORDERABLES [facility] [address] [place] [address] * (ABNORMAL) COMPLETE BLOOD COUNT AND DIFFERENTIAL (07/24/2020 13:47 EDT) WBC 8.66 4.00 - 12.40 K/cmm 07/24/2020 14:38 [facility] RBC 3.92 3.86 - 5.04 M/cmm 07/24/2020 14:38 [facility] Hemoglobin 10.2(L) 11.6 - 15.2 gm/dL 07/24/2020 14:38 [facility] HCT 32.3(L) 34.9 - 44.4 % 07/24/2020 14:38 [facility] MCV 82 81 - 98 fl 07/24/2020 14:38 [facility] MCH 26.0(L) 26.7 - 33.3 pg 07/24/2020 14:38 [facility] Hypochromia 1+ 07/24/2020 14:38 [facility] MCHC 31.6(L) 32.1 - 35.9 gm/dL 07/24/2020 14:38 [facility] RDW-CV 15.1(H) <14.7 % 07/24/2020 14:38 [facility] RDW-SD 45.1 <50.4 fl 07/24/2020 14:38 [facility] Anisocytosis 07/24/2020 14:38 [facility] PLT 367 141 - 377 K/cmm 07/24/2020 14:38 [facility] MPV 11.2 9.5 - 12.7 fl 07/24/2020 14:38 [facility] % Neutrophils 54.4 % 07/24/2020 14:38 [facility] % Lymphocytes 36.4 % 07/24/2020 14:38 [facility] % Monocytes 6.9 % 07/24/2020 14:38 [facility] % Eosinophils 1.7 % 07/24/2020 14:38 [facility] % Basophils 0.3 % 07/24/2020 14:38 [facility] % Immature Grans 0.3 % 07/25/19 14:38 [facility] Absolute Neutrophils 4.70 2.20 - 8.85 K/cmm 07/24/2020 14:38 [facility] Absolute Lymphocytes 3.15 1.09 - 3.30 K/cmm 07/24/2020 14:38 [facility] Absolute Monocytes 0.60 0.10 - 0.80 K/cmm 07/24/2020 14:38 [facility] Absolute Eosinophils 0.15 0.03 - 0.61 K/cmm 07/24/2020 14:38 EDT [facility] ABS Basophils 0.03 0.01 - 0.11 K/cmm 07/24/2020 14:38 EDT [facility] Absolute Immature Grans 0.03 0.00 - 0.06 K/cmm 07/24/2020 14:38 EDT [facility] Type of Differential: Auto 07/24/2020 14:38 EDT [facility] Blood VENOUS BLOOD / Unknown Venipuncture / Unknown 07/24/2020 13:47 EDT 07/24/2020 14:26 EDT Jonnathan Villalobos MD PACKAGES & DNA PROBE ORDERABLES Performing Organization Address City/[facility] Co de Phone Number [facility] [address] [place] [address] * (ABNORMAL) SED. RATE:WESTERGREN (07/24/2020 13:47 EDT) Sed Rate 57(H) 0 - 20 mm/hr 07/24/2020 15:22 EDT [facility] Blood VENOUS BLOOD / Unknown Venipuncture / Unknown 07/24/2020 13:47 EDT 07/24/2020 14:26 EDT Jonnathan Villalobos MD HEMATOLOGY & PF4 ORD ERABLES Performing Organization Address City/[facility]/ZIP Co de Phone Number [facility] [address] [place] [address] * (ABNORMAL) C REACTIVE PROTEIN (07/24/2020 13:47 EDT) C-Reactive Protein 21.8(H) <10.0 mg/L 07/24/2020 14:55 EDT [facility] Blood VENOUS BLOOD / Unknown Venipuncture / Unknown 07/24/2020 13:47 EDT 07/24/2020 14:27 EDT Jonnathan Villalobos MD CHEMISTRY & BLOOD GA S ORDERABLES Performing Organization Address City/[facility]/ZIP Co de Phone Number [facility] [address] [place] [address] * CCP ANTIBODIES (07/24/2020 13:47 EDT) [facility] CCP Antibodies <2.5 <5.0 U/mL 07/27/2020 8:25 EDT [facility] Blood VENOUS BLOOD / Unknown Venipuncture / Unknown 07/24/2020 13:47 EDT 07/24/2020 14:27 EDT Jonnathan Villalobos MD IMMUNOLOGY AND SEROL OGY ORDERABLES Performing Organization Address [facility] Co de Phone Number [facility] [address] [place] [address] * RHEUMATOID FACTOR (07/24/2020 13:47 EDT) [facility] Rheumatoid Factor <8.6 <12.0 IU/mL 07/24/2020 14:55 EDT [facility] Blood VENOUS BLOOD / Unknown Venipuncture / Unknown 07/24/2020 13:47 EDT 07/24/2020 14:27 EDT Jonnathan Villalobos MD CHEMISTRY & BLOOD GA S ORDERABLES Performing Organization Address [facility] Co de Phone Number [facility] [address] [place] [address] * (ABNORMAL) TSH (07/24/2020 13:47 EDT) [facility] TSH 0.30(L) 0.47 - 4.68 uIU/mL 07/24/2020 15:37 EDT [facility] Blood VENOUS BLOOD / Unknown Venipuncture / Unknown 07/24/2020 13:47 EDT 07/24/2020 14:27 EDT Narrative [facility] - 07/24/2020 15:37 EDT The results of this assay can be falsely lowered due to the consumption of Biotin. Jonnathan Villalobos MD CHEMISTRY & BLOOD GA S ORDERABLES [facility] [address] [place] [address] * IGG (07/24/2020 13:47 EDT) IgG 1,521 610-1,616 mg/dL 07/27/2020 10:16 EDT [facility] Blood VENOUS BLOOD / Unknown Venipuncture / Unknown 07/24/2020 13:47 EDT 07/24/2020 14:27 EDT Jonnathan Villalobos MD CHEMISTRY & BLOOD GA S ORDERABLES Performing Organization Address City/[facility]/ZIP Co de Phone Number [facility] [address] [place] [address] * (ABNORMAL) IGM (07/24/2020 13:47 EDT) IgM 391(H) 35 - 242 mg/dL 07/27/2020 10:16 EDT [facility] Blood VENOUS BLOOD / Unknown Venipuncture / Unknown 07/24/2020 13:47 EDT 07/24/2020 14:27 EDT Jonnathan Villalobos MD CHEMISTRY & BLOOD GA S ORDERABLES Performing Organization Address City/[facility]/ZIP Co de Phone Number [facility] [address] [place] [phone] * IGA (07/24/2020 13:47 EDT) IgA 333 85 - 499 mg/dL 07/27/2020 10:16 EDT [facility] Blood VENOUS BLOOD / Unknown Venipuncture / Unknown 07/24/2020 13:47 EDT 07/24/2020 14:27 EDT Jonnathan Villalobos MD CHEMISTRY & BLOOD GA S ORDERABLES [facility] [address] [place] [address] * C4 COMPLEMENT (07/24/2020 13:47 EDT) C4 Complement 37 13 - 39 mg/dL 07/27/2020 10:16 EDT [facility] Blood VENOUS BLOOD / Unknown Venipuncture / Unknown 07/24/2020 13:47 EDT 07/24/2020 14:27 EDT Jonnathan Villalobos MD CHEMISTRY & BLOOD GA S ORDERABLES Performing Organization Address [facility] Co de Phone Number [facility] [address] [place] [address] * (ABNORMAL) C3 COMPLEMENT (07/24/2020 13:47 EDT) Pathologist [facility] C3 Complement 167(H) 81 - 157 mg/dL 07/27/2020 10:16 EDT [facility] Blood VENOUS BLOOD / Unknown Venipuncture / Unknown 07/24/2020 13:47 EDT 07/24/2020 14:27 EDT Jonnathan Villalobos MD CHEMISTRY & BLOOD GA S ORDERABLES Performing Organization Address [facility] de Phone Number [facility] [address] [place] [address] * SSB ANTIBODIES BY RICO (07/24/2020 13:47 EDT) SSB Antibody 1.8 <20.0 Units 07/28/2020 12:47 EDT [facility] Comment: ? Negative: <20.0 Units ? Weak Positive: 20.0 - 39.9 Units ? Moderate Positive: 40.0 - 80.0 Units ? Strong Positive: >80.0 Units Results were obtained with the Connectivity QUANTA Lite SS-B RICO. ??SS-B values obtained with different manufacturers' assay methods may not be used interchangeably. ??The magnitude of the reported IgG levels cannot be correlated to an endpoint titer. Blood VENOUS BLOOD / Unknown Venipuncture / Unknown 07/24/2020 13:47 EDT 07/24/2020 14:27 EDT Jonnathan Villalobos MD IMMUNOLOGY AND SERLORELEI REMY ORDERABLES Performing Organization Address [facility] de Phone Number [facility] [address] [place] [address] * SSA ANTIBODIES BY RICO (07/24/2020 13:47 EDT) SSA Antibody 6.9 <20.0 Units 07/28/2020 13:25 EDT [facility] Comment: ? Negative: <20.0 Units ? Weak Positive: 20.0 - 39.9 Units ? Moderate Positive: 40.0 - 80.0 Units ? Strong Positive: >80.0 Units Results were obtained with the Connectivity QUANTA Lite SS-A RICO. ??SS-A values obtained with different manufacturers' assay methods may not be used interchangeably. ??The magnitude of the reported IgG levels cannot be correlated to an endpoint titer. Blood VENOUS BLOOD / Unknown Venipuncture / Unknown 07/24/2020 13:47 EDT 07/24/2020 14:27 EDT Jonnathan Villalobos MD IMMUNOLOGY AND SEROL JONEL ORDERABLES Performing Organization Address [facility] de Phone Number [facility] [address] [place] [address] * MANAGER REPORT ANTIBODIES BY RICO (07/24/2020 13:47 EDT) MANAGER REPORT Antibody 2.1 <20.0 Units 07/28/2020 15:05 EDT [facility] Comment: ? Negative: <20.0 Units ? Weak Positive: 20.0 - 39.9 Units ? Moderate Positive: 40.0 - 80.0 Units ? Strong Positive: >80.0 Units Results were obtained with the [employer] Quanta Lite MANAGER REPORT RICO. MANAGER REPORT values obtained with different four roll calender operator's assay methods may not be used interchangeaby. ??The magnitude of the reported IgG levels cannot be be correlated to an endpoint titer. A positive result in the Quanta Lite MANAGER REPORT RICO indicates the presence of antibodies reactive with the MANAGER REPORT/Sm complex but cannot distinguish between anti-Sm and anti-MANAGER REPORT activity. Blood VENOUS BLOOD / Unknown Venipuncture / Unknown 07/24/2020 13:47 EDT 07/24/2020 14:28 EDT Jonnathan Villalobos MD IMMUNOLOGY AND SEROL JONEL ORDERABLES Performing Organization Address [facility] de Phone Number [facility] [address] [place] [address] * SM (WISDOM) ANTIBODY (07/24/2020 13:47 EDT) SM (Wisdom) Antibody 2.1 <20.0 Units 07/28/2020 15:03 EDT [facility] Comment: ? Negative: <20.0 Units ? Weak Positive: 20.0 - 39.9 Units ? Moderate Positive: 40.0 - 80.0 Units ? Strong Positive: >80.0 Units Results were obtained with the [employer]OVA QUANTA Lite Sm RICO. ??Sm values obtained with different manufacturers' assay methods may not be used interchangeably. ??The magnitude of the reported IgG levels cannot be correlated to an endpoint titer. Blood VENOUS BLOOD / Unknown Venipuncture / Unknown 07/24/2020 13:47 EDT 07/24/2020 14:27 EDT Jonnathan Villalobos MD IMMUNOLOGY AND SEROL JONEL ORDERABLES Performing Organization Address [facility] de Phone Number [facility] [address] [place] [address] * ANTI DNA (DOUBLE STRANDED) (07/24/2020 13:47 EDT) Anti-DNA (Double Stranded) <12.3 <30.0 IU/mL 07/28/2020 13:30 EDT [facility] Comment: ? Negative: ??<30.0 IU/mL ? Borderline Positive: ??30.0 - 75.0 IU/mL ? Positive: ??>75.0 IU/mL Results were obtained with the Connectivity QUANTA Lite dsDNA SC RICO assay on the [email or web address]. Blood VENOUS BLOOD / Unknown Venipuncture / Unknown 07/24/2020 13:47 EDT 07/24/2020 14:28 EDT Jonnathan Villalobos MD IMMUNOLOGY AND SEROL OGTrino ORDERABLES Performing Organization Address [facility]/ZIP Co de Phone Number [facility] [address] [place] [address] * ANTI NUCLEAR AB (ALFREDO), IFA (07/24/2020 13:47 EDT) Pathologist [facility] [place] Interpretation Negative Negative 2020 14:34 EDT [facility] Comment:No titer performed, [place]O Screen is negative. Blood VENOUS BLOOD / Unknown Venipuncture / Unknown 07/24/2020 13:47 EDT 07/24/2020 14:28 EDT Narrative [facility] - 07/27/2020 14:34 EDT Results were obtained with the Connectivity NOVA Lite HEp-2 [place]FR[place]O Kit by indirect immunofluorescence. Jonnathan Villalobos MD IMMUNOLOGY AND SEROL OGTrino ORDERABLES Performing Organization Address City/[facility]/ZIP Co de Phone Number [facility] [address] [place] [address] * XR HAND RIGHT 1-2 VIEWS (07/24/2020 13:09 EDT) Anatomical Region Laterality Modality Upper Extremities Right Computed Radio graphy 07/24/2020 13:2 3 EDT Impressions 07/24/2020 13:23 EDT 1. Normal radiographs of the right and left hand. I have personally reviewed the images and the above interpretation and agree with the findings. Narrative 07/24/2020 13:23 EDT XR HAND RIGHT 1-2 VIEWS, XR HAND LEFT 1-2 VIEWS ??07/24/2020 1:10 PM SIGNS AND SYMPTOMS/COMMENTS: Chronic hand pain, evaluate for inflammatory arthritis COMPARISON: None available. TECHNIQUE: PA and ball-catcher's views of the right and left hand were obtained. FINDINGS: Right hand: No evidence of fracture, dislocation, suspicious osseous lesion, or periarticular erosion. The joint spaces are preserved. No significant soft tissue abnormality. Left main: No evidence of fracture, dislocation, suspicious osseous lesion, or periarticular erosion. The joint spaces are preserved. No significant soft tissue abnormality. Procedure Note Johnny Frazier MD - 07/24/2020 XR HAND RIGHT 1-2 VIEWS, XR HAND LEFT 1-2 VIEWS 07/24/2020 1:10 PM SIGNS AND SYMPTOMS/COMMENTS: Chronic hand pain, evaluate for inflammatoryarthritis COMPARISON: None available. TECHNIQUE: PA and ball-catcher's views of the right and left hand wereobtained. FINDINGS: Right hand: No evidence of fracture, dislocation, suspicious osseouslesion, or periarticular erosion. The joint spaces are preserved. Nosignificant soft tissue abnormality. Left main: No evidence of fracture, dislocation, suspicious osseouslesion, or periarticular erosion. The joint spaces are preserved. Nosignificant soft tissue abnormality. IMPRESSION 1. Normal radiographs of the right and left hand. I have personally reviewed the images and the above interpretation andagree with the findings. Jonnathan Villalobos MD IMG DIAGNOSTIC IMAGI NG ORDERABLES * XR HAND LEFT 1-2 VIEWS (07/24/2020 13:09 EDT) Anatomical Region Laterality Modality Upper Extremities Left Computed Radio graphy 07/24/2020 13:2 3 EDT Impressions 07/24/2020 13:23 EDT 1. Normal radiographs of the right and left hand. I have personally reviewed the images and the above interpretation and agree with the findings. Narrative 07/24/2020 13:23 EDT XR HAND RIGHT 1-2 VIEWS, XR HAND LEFT 1-2 VIEWS ??07/24/2020 1:10 PM SIGNS AND SYMPTOMS/COMMENTS: Chronic hand pain, evaluate for inflammatory arthritis COMPARISON: None available. TECHNIQUE: PA and ball-catcher's views of the right and left hand were obtained. FINDINGS: Right hand: No evidence of fracture, dislocation, suspicious osseous lesion, or periarticular erosion. The joint spaces are preserved. No significant soft tissue abnormality. Left main: No evidence of fracture, dislocation, suspicious osseous lesion, or periarticular erosion. The joint spaces are preserved. No significant soft tissue abnormality. Procedure Note Johnny Frazier MD - 07/24/2020 XR HAND RIGHT 1-2 VIEWS, XR HAND LEFT 1-2 VIEWS 07/24/2020 1:10 PM SIGNS AND SYMPTOMS/COMMENTS: Chronic hand pain, evaluate for inflammatoryarthritis COMPARISON: None available. TECHNIQUE: PA and ball-catcher's views of the right and left hand wereobtained. FINDINGS: Right hand: No evidence of fracture, dislocation, suspicious osseouslesion, or periarticular erosion. The joint spaces are preserved. Nosignificant soft tissue abnormality. Left main: No evidence of fracture, dislocation, suspicious osseouslesion, or periarticular erosion. The joint spaces are preserved. Nosignificant soft tissue abnormality. IMPRESSION 1. Normal radiographs of the right and left hand. I have personally reviewed the images and the above interpretation andagree with the findings. Jonnathan Villalobos MD IMG DIAGNOSTIC IMAGI NG ORDERABLES documented in this encounter Visit Diagnoses Diagnosis Polyarthralgia- Primary Pain in joint, multiple sites Inflammatory arthritis Unspecified inflammatory polyarthropathy Fibromyalgia Mylagia and myositis, unspecified Chronic fatigue Other malaise and fatigue Screening for viral disease Special screening examination for unspecified viral disease Chronic hepatitis C without hepatic coma (HCC-CMS) Chronic hepatitis C without mention of hepatic coma Inflammatory arthritis Unspecified inflammatory polyarthropathy Inflammatory arthritis Unspecified inflammatory polyarthropathy documented in this encounter Historical Medications * This list may reflect changes made after this encounter. Medication Sig Dispensed Refills Start Date End Date DUCODYL, BISACODYL, ORAL Take by mouth as needed. polyethylene glycol 3350 (MIRALAX ORAL) Take by mouth as needed. ALBUTEROL SULFATE INHALATION Inhale as directed as needed. fluticasone propionate (FLOVENT HFA INHALATION) Inhale 2 Puffs as directed twice a week. esomeprazole (NEXIUM) 40 mg capsule Take 40 mg by mouth daily. ondansetron (ZOFRAN) 4 mg tablet Take 8 mg by mouth as needed for Nausea. hydrOXYzine (ATARAX) 25 mg tablet Take 25 mg by mouth as needed for Itching. Naproxen 375 mg tablet,delayed release (DR/EC) Take 375 mg by mouth 2 times daily as needed for Pain. acetaminophen (TYLENOL) 325 mg tablet Take 325 mg by mouth every 6 hours as needed for Pain. Take 1-2 tabs paroxetine (PAXIL-CR) 25 mg CR tablet Take 25 mg by mouth daily. lisinopriL (PRINIVIL) 10 mg tablet Take 10 mg by mouth daily. cyclobenzaprine (FLEXERIL) 5 mg tablet Take 5 mg by mouth 2 times daily as needed for Muscle Spasms. pregabalin (LYRICA) 75 mg capsule Take 75 mg by mouth daily. pregabalin (LYRICA) 150 mg capsule Take 150 mg by mouth 2 times daily. methadone HCl (METHADONE ORAL) Take 130 mg by mouth daily. added in this encounter Orders Equipment Count Last Ordered Date First Orde red Date GENERIC DME ORDER 2 07/24/2020 documented in this encounter Care Teams Glass Cut Off Supervisor Relationship Specialty Start Date End Date Frances Sorensen FNP [address] [place] [address] [place] [phone] PCP - General 06/04/20 documented as of this encounter
--- OUTSIDE RECORDS SUMMARY | 2023-12-27 19:51 | XMS_ITS | Encounter Summary ---
Author Organization [facility] Address [address] [place] [address] Care Team Providers Care Marketing Communications Coordinator Name Role Phone EduFrances MONICA Primary Care Provider [phone] Encounter Details Date Type Department Care Team (Late st Contact Info) Description 11/05/2020 Lab Requisition [facility] Pathology & [place] [address] Outr Resulting Lab, Provider Social History Tobacco [...] Diagnosis Comments HCV RNA DETECT QUANT Routine 11/05/2020 11:36 EDT HEPATITIS A TOTAL ANTIBODY W REFLEX Routine 11/05/2020 11:36 EDT HEPATITIS B SURFACE ANTIBODY Routine 11/05/2020 11:36 EDT HEPATITIS B SURFACE ANTIGEN Routine 11/05/2020 11:36 EDT documented in this encounter Results * (ABNORMAL) HCV RNA DETECT QUANT (11/05/2020 11:36 EDT) HCV RNA Qualitative Detected( A) Undetected 11/06/2020 13:06 EDT [facility] HCV RNA Quantitative 302,661(H ) Undetected IU/mL 11/06/2020 13:06 EDT [facility] Blood VENOUS BLOOD / Unknown 11/05/2020 11:36 EDT 11/05/2020 16:10 EDT Narrative [facility] - 11/06/2020 13:06 EDT The quantification range of this assay is 15 IU/mL to 100,000,000 IU/mL. ??Testing was performed on the BRANDAN Ampliprep/BRANDAN TaqMan HCV v2.0 ([employer] Provider Outr Resulting Lab CHEMISTRY & BLOOD GAS ORDERABLES [facility] [address] [place] [address] * HEPATITIS B SURFACE ANTIBODY (11/05/2020 11:36 EDT) Hep B Surface Ab, Quantitative 566.7 See Note mIU/mL 11/06/2020 8:19 EDT [facility] Comment: Reference Range for Hep B Surface Ab, Quant: Positive: >= 10.0 mIU/mL Negative: ??< 10.0 mIU/mL Patient is presumed to be immune to infection with Hepatitis B Virus. Hep B Surface Ab, Qualitative Positive See Note 11/06/2020 8:19 EDT [facility] Comment: Reference Range for Hep B Surface Ab, Qual: Unvaccinated: ??Negative Vaccinated: ??Positive Blood VENOUS BLOOD / Unknown 11/05/2020 11:36 EDT 11/05/2020 16:10 EDT Provider Outr Resulting Lab CHEMISTRY & BLOOD GAS ORDERABLES Performing Organization Address City/[facility]/[place] Co de Phone Number [facility] [address] [place] [address] * HEPATITIS B SURFACE ANTIGEN (11/05/2020 11:36 EDT) Hep B Surface Ag Negative Negative 11/06/2020 8:25 EDT [facility] Blood VENOUS BLOOD / Unknown 11/05/2020 11:36 EDT 11/05/2020 16:10 EDT Provider Outr Resulting Lab CHEMISTRY & BLOOD GAS ORDERABLES Performing Organization Address [facility] Co de Phone Number [facility] [address] [place] [address] * HEPATITIS A TOTAL ANTIBODY W REFLEX (11/05/2020 11:36 EDT) Hepatitis A Antibody, Total Negative Negative 11/06/2020 9:39 EDT [facility] Blood VENOUS BLOOD / Unknown 11/05/2020 11:36 EDT 11/05/2020 16:10 EDT Narrative [facility] - 11/06/2020 9:39 EDT The result of this assay can be falsely elevated (Positive) due to the consumption of Biotin. Provider Outr Resulting Lab CHEMISTRY & BLOOD GAS ORDERABLES Performing Organization Address [facility]/[place] Co de Phone Number [facility] [address] [place] [address] documented in this encounter Visit Diagnoses Not on filedocumented in this encounter Additional Health Concerns Infection Onset Date Last Indicated Resolved Time COVID-19 02/23/2021 02/23/2021 03/15/2021 22:1 5 EST documented as of this encounter Care Teams Marketing Communications Coordinator Relationship Specialty Start Date End Date Frances Sorensen FNP [address] [phone] PCP - General 06/04/20 documented as of this encounter
--- OUTSIDE RECORDS SUMMARY | 2023-12-27 19:51 | XMS_ITS | Encounter Summary ---
Author Organization [facility] Address [address] [place] [address] Care Team Providers Care [employer] Name Role Phone Unknown, Provider Primary Care Provider [phone] Frances Sorensen Primary Care Provider [phone] Encounter Details Date Type Department Care Team (Latest Contact Info) Description 05/21/2020 Lab Requisition [facility] Pathology & Laboratory Medicine - [facility] [address] [place] [address] Frances Sorensen FNP [address] [place] [phone] Encounter for general adult medical examination without abnormal findings; Encounter for screening for malignant neoplasm of cervix; Encounter for gynecological examination (general) (routine) without abnormal findings Social History Tobacco Use Types Packs/Day Years Used Date Smoking Tobacco: Never Assessed Interpersonal Safety Answer Date Record ed Physically Hurt Never 11/24/2019 Verbally Threaten Not on file 11/24/2019 Sex and Gender Information Value Date Recorded Sex Assigned at Not on file Gender Identity Female 06/04/2020 14:16 EST Sexual Orientation Not on file documented as of this encounter Plan of Treatment Not on file documented as of this encounter Procedures Procedure Name Priority Date/Time Associated Diagnosis Comments PAP TEST Today 05/19/2020 14:40 EST Encounter for general adult medical examination without abnormal findings Encounter for screening for malignant neoplasm of cervix Encounter for gynecological examination (general) (routine) without abnormal findings HPV DNA DETECTION WITH GENOTYPING, PCR Today 05/19/2020 14:40 EST Encounter for general adult medical examination without abnormal findings Encounter for screening for malignant neoplasm of cervix Encounter for gynecological examination (general) (routine) without abnormal findings documented in this encounter Results * HUMAN PAPILLOMAVIRUS (HPV) DETECTION-HIGH RISK TYPES (05/19/2020 14:40 EST) HPV other High Risk types, PCR Negative Negative 05/29/2020 15:24 [facility] Comment:No E6 or E7 mRNA is detected from HPV types 16,18,31,33,35,39,45,51,52,56,58,59,66, and 68 by freelance writer mediated amplification. Papanicolaou smear specimen (specimen) CERVIX UTERI STRUCTURE / Unknown 05/19/2020 14:40 EST 05/28/2020 15:54 EST Frances Sorensen CONTRACT RECRUITER MICROBIOLOGY - [facility] ORDERABLES Performing Organization Address City/State/[facility] Co de Phone Number [facility] [address] [place] [phone] * PAP TEST (05/19/2020 14:40 EST) Specimens A. Cervix and/or Endocervix , ThinPrep Imaging System with Manual Evaluation 05/29/2020 15:24 [facility] Specimen Adequacy Satisfactory for Evaluation - transformation zone component present 05/29/2020 15:24 [facility] General Categorization Negative for intraepithelial lesion or malignancy 05/29/2020 15:24 [facility] Descriptive Diagnosis Shift in melquiades present suggestive of bacterial vaginosis. 05/29/2020 15:24 [facility] Attestation . 05/29/2020 15:24 [facility] at 1524 Clinical History See below 05/29/19 15:24 [facility] HPV The result for the Human Papillomavirus (HPV) Detection-High Risk Types is Negative. No E6 or E7 mRNA is detected from HPV types 16,18,31,33,35,39 ,45,51,52,56,58,5 9,66, and 68 by freelance writer mediated amplification.Steffanie ting was performed on specimen [id number] and was resulted on 05/29/2020 1516 EST by MIESHA, LAB INSTRUMENT RESULTS IN 05/29/2020 15:24 EST [facility] Performing Lab [facility] 05/29/2020 15:24 EST [facility] Scanned Images 05/29/2020 15:24 EST [facility] Papanicolaou smear specimen (specimen) CERVIX UTERI STRUCTURE / Unknown 05/19/2020 14:40 EST 05/21/2020 10:45 EST Frances ANDERSON PATHOLOGY ORDERABLES [facility] [address] [place] [address] documented in this encounter Visit Diagnoses Diagnosis Encounter for general adult medical examination without abnormal findings Unspecified general medical examination Encounter for screening for malignant neoplasm of cervix Screening for malignant neoplasm of the cervix Encounter for gynecological examination (general) (routine) without abnormal findings documented in this encounter Additional Health Concerns Infection Onset Date Last Indicated Resolved Time COVID-19 02/23/2021 02/23/2021 03/15/2021 22:1 5 EST documented as of this encounter Care Teams Det[employer] Relationship Specialty Start Date End Date Unknown, Provider, PCP - General 03/11/11 06/03/20 Frances Sorensen FNP [address] [place] [phone] PCP - General 06/04/20 documented as of this encounter
--- OUTSIDE RECORDS SUMMARY | 2023-12-27 19:51 | XMS_ITS | Encounter Summary ---
Author Organization [facility] Address [address] [place] [address] Care Team Providers Care Watch Repairer Apprentice Name Role Phone Unknown, Provider Primary Care Provider Encounter Details Date Type Department Care Team (Late st Contact Info) Description 05/20/2014 Results Only [facility] Services - [facility] ([facility]) [address], [place] [id number] Macho Sandra MD [address] [place] [address] Social History Tobacco Use Types Packs/Day Years Used Date Smoking Tobacco: Never Assessed Sex and Gender Information Value Date Recorded Sex Assigned at Not on file Gender Identity Female 06/04/2020 14:16 EST Sexual Orientation Not on file documented as of this encounter Plan of Treatment Not on file documented as of this encounter Procedures Procedure Name Priority Date/Time Associated Diagnosis Comments SURGICAL PATHOLOGY Routine 05/20/2014 21 :26 EST documented in this encounter Results * SURGICAL PATHOLOGY (05/20/2014 21:26 EST) Pathology Report: SURGICAL PATHOLOGY REPORT Reports generated via electronic interface contain original data; however they are lacking the format of the original report. Caution should be taken when reading/interpret ing unformatted reports. Name: ? RICHARD MOOREY Charli ? Accession #: ? [id number] ? : ? 1990 (Age: 23) ??F ? Collect Date: ? 05/20/2014 ? Location: ? [facility] ? Receive Date: ? 05/20/2014 ? Provider: MACHO SANDRA MD Copy to: ? Final Pathologic Diagnosis: ? A. FALLOPIAN TUBE, LEFT, SEGMENTAL RESECTION: ? - Full cross section with no abnormalities. ? B. FALLOPIAN TUBE, RIGHT, SEGMENTAL RESECTION: ? - Full cross section with no abnormalities. C. MONOCHORIONIC DIAMNIONIC TWIN PLACENTA (GESTATIONAL AGE NOT PROVIDED): ? 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 ? - No other abnormalities. ? Document reviewed and electronically signed by: MARIA ACSTELLANOS MD Report ??Date: 05/23/2014 17:19 By the signature above, the attending physician certifies that he/she has personally conducted a gross and/or microscopic examination of the described specimens and rendered or confirmed the above diagnosis. Specimen(s) Received: A. ??Portion of left fallopian tube B. ??Portion of right fallopian tube C. ??Placenta, twin A tagged Clinical History: Previous ; desired sterilization; twin gestation, diamniotic/dichor ionic twin gestation; clinical diagnosis code: 654.21, 651.01, V25.2 Gross Description: A. ?Received in formalin labelled with proper patient identification (initials C, B) and portion of left fallopian tube is a tubular structure (1.9 cm in length and 0.7 cm in diameter). ??The serosal surface is ortiz-pink and smooth. ??Sectioning reveals a central pinpoint lumen. ??One authorization representative cross section is submitted as A1. B. ?Received in formalin labelled with proper patient identification (initials C, B) and portion of right fallopian tube is a tubular structure (4.0 cm in length and 0.6 cm in diameter). ??The serosal surface is ortiz-pink and smooth. ??Sectioning reveals a central pinpoint lumen. ??One authorization representative cross section is submitted as B1. C. ?Received in formalin labelled with proper patient identification (initials C, B) and twin placenta is a twin placenta with a fused placental disc (26.5 x 21.5 x 3.8 cm), attached membranes, including dividing membrane, and two attached segments of umbilical cord. The umbilical cord of baby A (22.2 cm in length x 0.9 cm in diameter) has one clamp and the umbilical cord of baby B (28.5 cm in length x 1.2 cm in diameter) has two clamps. After the cords and membranes are removed, the ovoid placental disc weighs 790 g. ? The membranes of baby A are pink, translucent, and insert at the disc margin. The umbilical cord of baby A is white, shiny and coiled, with three vessels, and inserts centrally, 4.0 cm from the nearest disc margin. ? The membranes of baby B are focally rough and insert at the disc margin. The umbilical cord of baby B is white, shiny and coiled, with three vessels, and inserts centrally, 7.0 cm from the nearest disc margin. ? The dividing membranes are pink and translucent. The surface is blue-de la torre with the usual arborizing vasculature. There is no evidence of anastomosing vessels between baby A and baby B. The maternal surface is red-brown with intact and complete cotyledons and a small amount of loosely attached blood clot. Sectioning reveals a dark red spongy cut surface, with no nodules or discrete lesions identified. ? Seed Expert sections are submitted as follows: BLOCK NOWAK C1- ??umbilical cord, baby A C2- ?? membranes, baby A C3- ??placental disc, baby A C4- ??placental disc, baby A C5- ??dividing membranes C6- ??umbilical cord, baby B C7- ?? membranes, baby B C8- ??placental disc, baby B C9- ??placental disc, baby B Dr. Arnold 05/21/2014 04:28 PM End of Report [facility] 05/20/2014 21:2 6 EST 05/20/2014 21:26 EST Macho Sandra MD PATHOLOGY ORDERABLES [facility] [address] [place] [address] documented in this encounter Visit Diagnoses Not on filedocumented in this encounter Care Teams Watch Repairer Apprentice Relationship Specialty Start Date End Date Unknown, Provider, PCP - General 03/11/11 06/03/20 documented as of this encounter
--- OUTSIDE RECORDS SUMMARY | 2023-12-27 19:51 | XMS_ITS | Data Portability ---
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 Problem list and active medications updated based on available history, patient report, and block and case maker input. [email or web address] Not available 09/22/2023 08:50:59 Plan of Treatment Reminders Order Date Submit Date Provider Last Modified By Organization Details Last Modified Time Details Appointments None recorded. Lab influenza virus A + B + SARS-CoV-2 (COVID19) Ag panel, rapid IA, upper respiratory specimen 2023 024 [email or web address] [facility], [address], [place], [address], 4 13:17:23 magnesium, serum or plasma 2023 024 [facility] (Registration ), [address] [place] [address] [place], [address], 4 08:50:55 iron + TIBC + ferritin, serum 2023 024 [facility] (Registration ), [address] [place] [address] [place], [address], 4 08:50:55 TSH, serum, reflex free T4 2023 024 [email or web address] [address] [place] [address] Dr [facility] [place], [address], 4 08:50:55 CMP, serum or plasma [address] [facility] (Registration ), [address] [place] [address] [place], [address], 4 08:19:22 HbA1c (hemoglobin A1c), blood 2023 024 [facility] [address] [place] [address] [place], [address], 4 08:50:55 CRP, high sensitivity , serum or plasma 2023 024 RODRICK [facility] (Registration ), [address] [place] [address] [place], [address], 4 08:35:53 vitamin B12, serum 2023 024 [facility] (Registration ), [address] [place] [address] Dr [facility] [place], [address], 4 08:50:55 glucose, fingerstick , blood [address], [address], [place], [address], 4 08:19:22 CBC [address] [facility] (Registration ), [address] [place] [address] [place], [address], 4 08:19:22 Referral sleep medicine referral 2023 024 [email or web address] [facility], [address] [place] [address] , [address], [place], [address], 4 08:34:13 neurologist referral 2023 024 [email or web address] Stefanie Villegas MD, [address] [place] [address] Dr [address], [place], [address], 4 15:20:03 Procedures None recorded. Surgeries None recorded. Imaging None recorded. Medication Orders albuterol sulfate HFA 90 mcg/actuati on aerosol inhaler 2023 024 [address] [place] [address] [address] [place], [address], 4 15:35:39 clopidogrel 75 mg tablet 2023 024 [facility] 93, [address] [place], [address], 4 15:26:48 Voltaren Arthritis Pain 1 % topical gel 2023 024 [address] [place] [address] [address] [place], [address], 4 11:59:58 Relistor 150 mg tablet 2023 024 [address] [place] [address] [address], [address] [place], [address], 4 11:59:57 Patient TargetsNo targets recorded. 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 I sent an inhaler for asthma. Call if you aren't getting better and think you may need steroids good luck with quitting smoking. [email or web address] Not available 05/16/2023 15:42:58 08/03/2023 [id number] upper respirator y infection (cold): care instructions [email or web address] Not available 08/03/2023 13:17:23 09/20/2023 [id number] 1 month follow up. SLEEP MEDICINE REFERRAL - expect a call within the next three weeks to schedule. RELISTOR - 3 tabs daily - start with 1 tab daily for one week, then advance if tolerating. CALL CARDIOLOGY to confirm next appointment. New NEUROLOGY REFERRAL placed. Please call and schedule follow up with DERMATOLOGY. VOLTAREN gel prescribed. Consider CARBIDE TOOL MAKER ([facility]) when ready. PLEASE sign up for the [facility] patient portals. You should have an email waiting in your email box from us today ([facility]) [email or web address] Not available 09/22/2023 08:30:23 Reason for Referral Neurologist Referral for Cer ebral infarction Referring Physician: [facility], Encounter Date: 09/20/2023 Sleep Medicine Referral for Sleep apnea Referring Physician: [facility], Encounter Date: 09/20/2023 Caramel Maker Referral for Se condary amenorrhea Referring Physician: [facility], Encounter Date: 10/11/2023 Results Created Date Observation Date Name Description Value Unit Range Abnormal Flag Note LastModifiedBy Organization Detail LastModifiedTime 08/03/19 24 08/03/2023 influ mariella virus A + B + SARS- CoV-2 (COVI D19) Ag panel , rapid IA, upper respi rator y speci men Influenza A negati ve Not Available [facility] [address], [place], [address], 08/03/2023 10:39:51 08/03/19 24 08/03/2023 influ mariella virus A + B + SARS- CoV-2 (COVI D19) Ag panel , rapid IA, upper respi rator y speci men Influenza B negati ve Not Available [facility] [address], [place], [address], 08/03/2023 10:39:51 08/03/19 24 08/03/2023 influ mariella virus A + B + SARS- CoV-2 (COVI D19) Ag panel , rapid IA, upper respi rator y speci men SARS-COV-2 negati ve Not Available [facility] [address], [place], [address], 08/03/2023 10:39:51 08/03/19 24 08/03/2023 influ mariella virus A + B + SARS- CoV-2 (COVI D19) Ag panel , rapid IA, upper respi rator y speci men Sample sent for PCR confirmation No Not Available [facility] [address], [place], [address], 08/03/2023 10:39:51 08/04/19 24 08/04/2023 COMPL ETE BLOOD COUNT NO DIFF WBC 11.07 10_3/ uL 4.4-10 .8 high Not Available [address] [facility] [place], [address] 08/04/2023 19:18:14 08/04/19 24 08/04/2023 COMPL ETE BLOOD COUNT NO DIFF RBC 4.70 10_6/ uL 3.93-5 .22 normal Not Available [address] [place] [facility] [place], [address] 08/04/2023 19:18:14 08/04/19 24 08/04/2023 COMPL ETE BLOOD COUNT NO DIFF HGB 13.0 g/dL 11.2-1 5.7 normal Not Available [address] [facility] [place], [address] 08/04/2023 19:18:14 08/04/19 24 08/04/2023 COMPL ETE BLOOD COUNT NO DIFF HCT 43.4 % 36.0-4 6.0 normal Not Available [address] [place], [address] 08/04/2023 19:18:14 08/04/19 24 08/04/2023 COMPL ETE BLOOD COUNT NO DIFF MCV 92 fL 80-95 normal Not Available Estelita [address] [place], [address] 08/04/2023 19:18:14 08/04/19 24 08/04/2023 COMPL ETE BLOOD COUNT NO DIFF MCH 27.7 pg 27.0-3 3.0 normal Not Available [address] [place], [address] 08/04/2023 19:18:14 08/04/19 24 08/04/2023 COMPL ETE BLOOD COUNT NO DIFF MCHC 30.0 % 32.0-3 6.0 low Not Available [address] [place], [address] 08/04/2023 19:18:14 08/04/19 24 08/04/2023 COMPL ETE BLOOD COUNT NO DIFF RDW 14.7 % 11.7-1 4.6 high Not Available [address] [place], [address] 08/04/2023 19:18:14 08/04/19 24 08/04/2023 COMPL ETE BLOOD COUNT NO DIFF platelet count 318 10_3/ uL 130-40 0 normal Not Available [address] [place], [address] 08/04/2023 19:18:14 08/04/19 24 08/04/2023 COMPL ETE BLOOD COUNT NO DIFF MPV 11.4 fL 8.0-11 .0 high Not Available [address] [place], [address] 08/04/2023 19:18:14 08/04/19 24 08/04/2023 HEMOG LOBIN A1C hemoglobin A1C 5.8 % <5.7 high Refer ence Range s <5.7 Shahla l 5.7-6 .4% Predi abete s 6.5% or great er Diagn ostic for diabe anthony (if confi rmed) Refer ences : 1. Ameri can Diabe anthony Assoc iatio n. Clas sific ation and Diagn osis of Diabe anthony. Diabe anthony Care 2019 Apr;4 2(Sup pleme nt 1):S1 3-s28 . Not Available [address] [place], [address] 08/04/2023 19:49:14 08/04/19 24 08/04/2023 IRON AND IBCT iron 38 ug/dL 50-170 low Not Available Estelita suarez [address] [place], [address] 08/04/2023 19:49:19 08/04/19 24 08/04/2023 IRON AND IBCT total iron binding capacity 377 ug/dL 250-45 0 normal Not Available [address] [place], [address] 08/04/2023 19:49:19 08/04/19 24 08/04/2023 IRON AND IBCT transferrin sat 10 % 15-50 low Not Available Tara hernandez [address] [place], [address] 08/04/2023 19:49:19 08/04/19 24 08/04/2023 COMPR EHENS ROCHELLE METAB OLIC PANEL calcium 9.5 mg/dL 8.5-10 .1 normal Not Available [address] [place], [address] 08/04/2023 20:09:15 08/04/19 24 08/04/2023 COMPR EHENS ROCHELLE METAB OLIC PANEL glucose 107 mg/dL 74-106 high Not Available Estelita suarez [address] [place], [address] 08/04/2023 20:09:15 08/04/19 24 08/04/2023 COMPR EHENS ROCHELLE METAB OLIC PANEL BUN 17 mg/dL 7-18 normal Not Available Estelita suarez [address] [place], [address] 08/04/2023 20:09:15 08/04/19 24 08/04/2023 COMPR EHENS ROCHELLE METAB OLIC PANEL creatinine 1.0 mg/dL 0.55-1 .02 normal Not Available [address] [place], [address] 08/04/2023 20:09:15 08/04/19 24 08/04/2023 COMPR EHENS ROCHELLE METAB OLIC PANEL estimated GFR 76.29 mL/min /1.73m 2 The eGFR is calcu lated from a serum creat inine using the CKD-E PI 2020 equat ion. Other varia bles requi red for the equat ion are gende r and age; this equat ion does not inclu de a race coeff icien t. This equat ion has simil ar overa ll perfo rmanc e to previ ous equat ions excep t value s may diffe r, in parti cular , in patie nts with highe r value s of eGFR and young er-ag ed adult s. Not Available [address] [place], [address] 08/04/2023 20:09:15 08/04/19 24 08/04/2023 COMPR EHENS ROCHELLE METAB OLIC PANEL total protein 7.9 g/dL 6.4-8. 2 normal Not Available [address] [place], [address] 08/04/2023 20:09:15 08/04/19 24 08/04/2023 COMPR EHENS ROCHELLE METAB OLIC PANEL albumin 3.2 g/dL 3.4-5. 0 low Not Available [address] [place], [address] 08/04/2023 20:09:15 08/04/19 24 08/04/2023 COMPR EHENS ROCHELLE METAB OLIC PANEL bilirubin, total 0.3 mg/dL 0.2-1. 0 normal Not Available [address] [place], [address] 08/04/2023 20:09:15 08/04/19 24 08/04/2023 COMPR EHENS ROCHELLE METAB OLIC PANEL alk phos 112 U/L 46-116 normal Not Available [address] [place], [address] 08/04/2023 20:09:15 08/04/19 24 08/04/2023 COMPR EHENS ROCHELLE METAB OLIC PANEL sodium 141 mmol/ L 136-14 5 normal Not Available [address] [place], [address] 08/04/2023 20:09:15 08/04/19 24 08/04/2023 COMPR EHENS ROCHELLE METAB OLIC PANEL potassium 4.4 mmol/ L 3.5-5. 1 normal Not Available [address] [place], [address] 08/04/2023 20:09:15 08/04/19 24 08/04/2023 COMPR EHENS ROCHELLE METAB OLIC PANEL chloride 103 mmol/ L 98-107 normal Not Available [address] [place], [address] 08/04/2023 20:09:15 08/04/19 24 08/04/2023 COMPR EHENS ROCHELLE METAB OLIC PANEL CO2 30.5 mmol/ L 21.0-3 2.0 normal Not Available [address] [place], [address] 08/04/2023 20:09:15 08/04/19 24 08/04/2023 COMPR EHENS ROCHELLE METAB OLIC PANEL anion gap 7.5 mmol/ L 3-11 normal Not Available [address] [place], [address] 08/04/2023 20:09:15 08/04/19 24 08/04/2023 COMPR EHENS ROCHELLE METAB OLIC PANEL AST 15 U/L 15-37 normal Not Available Estelita suarez [address] [place], [address] 08/04/2023 20:09:15 08/04/19 24 08/04/2023 COMPR EHENS ROCHELLE METAB OLIC PANEL ALT 23 U/L 14-59 normal Not Available Estelita suarez [address] [place], [address] 08/04/2023 20:09:15 08/04/19 24 08/04/2023 GENET TIN ferritin 41 NG/mL 8-252 normal Not Available Chela [address], [address] 08/04/2023 20:09:15 08/04/19 24 08/04/2023 MAGNE SIUM magnesium 2.0 mg/dL 1.8-2. 4 normal Not Available [address] [place], [address] 08/04/2023 20:09:16 08/04/19 24 08/04/2023 TSH (W/RE F FT4) TSH (w/ref FT4) 1.12 uIU/m L 0.36-3 .74 normal Not Available [address] [place], [address] 08/04/2023 20:09:16 08/04/19 24 08/04/2023 VITAM IN B12 vitamin B12 482 pg/mL 193-98 6 normal Not Available [address] [place], [address] 08/04/2023 20:09:16 08/04/19 24 08/05/2023 CRP, HIGH SENSI TIVIT Y CRP, high sensitivity >15.00 mg/L see note [facility] [facility] order ing [place] ctive Prote in Refer ence Range : Low Risk: <1.0 mg/L [place] ge Risk: 1.0 - 3.0 mg/L High Risk: >3.0 mg/L Indet ermin ate*: >10.0 mg/L *May be an indic ation of anoth er sourc e of infla mmati on or infec tion Test perfo rmed or refer red by [facility] [address], [place] [address] Not Available [address] [place], [address] 08/07/2023 08:35:53 08/04/19 24 08/04/2023 gluco se, finge rstic k, blood glucose 143 mg/dL 70-100 Not Available [facility] [address], [place], [address], 08/04/2023 16:42:46 10/04/19 24 10/04/2023 COMPL ETE BLOOD COUNT W/DIF F WBC 8.95 10_3/ uL 4.4-10 .8 normal Not Available [address] [place], [address] 10/04/2023 12:59:48 10/04/19 24 10/04/2023 COMPL ETE BLOOD COUNT W/DIF F RBC 3.83 10_6/ uL 3.93-5 .22 low Not Available [address] [place], [address] 10/04/2023 12:59:48 10/04/19 24 10/04/2023 COMPL ETE BLOOD COUNT W/DIF F HGB 11.3 g/dL 11.2-1 5.7 normal Not Available [address] [place], [address] 10/04/2023 12:59:48 10/04/19 24 10/04/2023 COMPL ETE BLOOD COUNT W/DIF F HCT 36.5 % 36.0-4 6.0 normal Not Available [address] [place], [address] 10/04/2023 12:59:48 10/04/19 24 10/04/2023 COMPL ETE BLOOD COUNT W/DIF F MCV 95 fL 80-95 normal Not Available Estelita [address] [place], [address] 10/04/2023 12:59:48 10/04/19 24 10/04/2023 COMPL ETE BLOOD COUNT W/DIF F MCH 29.5 pg 27.0-3 3.0 normal Not Available [address] [place], [address] 10/04/2023 12:59:48 10/04/19 24 10/04/2023 COMPL ETE BLOOD COUNT W/DIF F MCHC 31.0 % 32.0-3 6.0 low Not Available [address] [place], [address] 10/04/2023 12:59:48 10/04/19 24 10/04/2023 COMPL ETE BLOOD COUNT W/DIF F RDW 16.4 % 11.7-1 4.6 high Not Available [address] [place], [address] 10/04/2023 12:59:48 10/04/19 24 10/04/2023 COMPL ETE BLOOD COUNT W/DIF F platelet count 234 10_3/ uL 130-40 0 normal Not Available [address] [place], [address] 10/04/2023 12:59:48 10/04/19 24 10/04/2023 COMPL ETE BLOOD COUNT W/DIF F MPV 11.0 fL 8.0-11 .0 normal Not Available [address] [place], [address] 10/04/2023 12:59:48 10/04/19 24 10/04/2023 COMPL ETE BLOOD COUNT W/DIF F neutrophils % 69.4 % Not Available [address] [place], [address] 10/04/2023 12:59:48 10/04/19 24 10/04/2023 COMPL ETE BLOOD COUNT W/DIF F lymphocytes % 21.8 % Not Available [address] [place], [address] 10/04/2023 12:59:48 10/04/19 24 10/04/2023 COMPL ETE BLOOD COUNT W/DIF F monocytes % 6.1 % Not Available [address] [place], [address] 10/04/2023 12:59:48 10/04/19 24 10/04/2023 COMPL ETE BLOOD COUNT W/DIF F eosinophils % 1.7 % Not Available [address] [place], [address] 10/04/2023 12:59:48 10/04/19 24 10/04/2023 COMPL ETE BLOOD COUNT W/DIF F basophils % 0.3 % Not Available [address] [place], [address] 10/04/2023 12:59:48 10/04/19 24 10/04/2023 COMPL ETE BLOOD COUNT W/DIF F immature grans % 0.7 % Not Available [address] [place], [address] 10/04/2023 12:59:48 10/04/19 24 10/04/2023 COMPL ETE BLOOD COUNT W/DIF F nucleated RBC 0.0 % 0.0-0. 3 normal Not Available [address] [place], [address] 10/04/2023 12:59:48 10/04/19 24 10/04/2023 COMPL ETE BLOOD COUNT W/DIF F absolute neutrophil count 6.21 10_3/ uL 1.2-6. 7 normal Not Available [address] [place], [address] 10/04/2023 12:59:48 10/04/19 24 10/04/2023 COMPL ETE BLOOD COUNT W/DIF F absolute lymphocyte count 1.95 10_3/ uL 1.2-3. 4 normal Not Available [address] [place], [address] 10/04/2023 12:59:48 10/04/19 24 10/04/2023 COMPL ETE BLOOD COUNT W/DIF F absolute monocyte count 0.55 10_3/ uL 0.1-0. 8 normal Not Available [address] [place], [address] 10/04/2023 12:59:48 10/04/19 24 10/04/2023 COMPL ETE BLOOD COUNT W/DIF F absolute eosinophil count 0.15 10_3/ uL 0.0-0. 7 normal Not Available [address] [place], [address] 10/04/2023 12:59:48 10/04/19 24 10/04/2023 COMPL ETE BLOOD COUNT W/DIF F absolute basophil count 0.03 10_3/ uL 0.0-0. 2 normal Not Available [address] [place], [address] 10/04/2023 12:59:48 10/04/19 24 10/04/2023 PROTH ROMBI N TIME prothrombin time 9.7 sec 9.1-11 .1 normal Not Available [address] [place], [address] 10/04/2023 13:12:48 10/04/19 24 10/04/2023 PROTH ROMBI N TIME INR 1.0 0.9-1. 1 normal Recom lazara d INR thera peuti c range s for orall y admin ister ed drugs are as follo ws: -Javier dard Inten sity 2.0 to 3.0 -High er Inten sity 3.0 to 4.5 Not Available [address] [place], [address] 10/04/2023 13:12:48 10/04/19 24 10/04/2023 PTT ACTIV ATED PTT activated 25.2 sec 23.6-3 2.8 normal Hepar in Thera peuti c Range for PTT = 52-84 secon ds New Hepar in Thera peuti c Range 05/30 Not Available [address] [place], [address] 10/04/2023 13:12:49 10/04/19 24 10/04/2023 COMPR EHENS ROCHELLE METAB OLIC PANEL calcium 9.3 mg/dL 8.5-10 .1 normal Not Available [address] [place], [address] 10/04/2023 13:32:52 10/04/19 24 10/04/2023 COMPR EHENS ROCHELLE METAB OLIC PANEL glucose 196 mg/dL 74-106 high Not Available Estelita suarez [address] [place], [address] 10/04/2023 13:32:52 10/04/19 24 10/04/2023 COMPR EHENS ROCHELLE METAB OLIC PANEL BUN 23 mg/dL 7-18 high Not Available Estelita suarez [address] [place], [address] 10/04/2023 13:32:52 10/04/19 24 10/04/2023 COMPR EHENS ROCHELLE METAB OLIC PANEL creatinine 1.0 mg/dL 0.55-1 .02 normal Not Available [address] [place], [address] 10/04/2023 13:32:52 10/04/19 24 10/04/2023 COMPR EHENS ROCHELLE METAB OLIC PANEL estimated GFR 76.29 mL/min /1.73m 2 The eGFR is calcu lated from a serum creat inine using the CKD-E PI 2020 equat ion. Other varia bles requi red for the equat ion are gende r and age; this equat ion does not inclu de a race coeff icien t. This equat ion has simil ar overa ll perfo rmanc e to previ ous equat ions excep t value s may diffe r, in parti cular , in patie nts with highe r value s of eGFR and young er-ag ed adult s. Not Available [address] [place], [address] 10/04/2023 13:32:52 10/04/19 24 10/04/2023 COMPR EHENS ROCHELLE METAB OLIC PANEL total protein 8.0 g/dL 6.4-8. 2 normal Not Available [address] [place], [address] 10/04/2023 13:32:52 10/04/19 24 10/04/2023 COMPR EHENS ROCHELLE METAB OLIC PANEL albumin 3.0 g/dL 3.4-5. 0 low Not Available [address] [place], [address] 10/04/2023 13:32:52 10/04/19 24 10/04/2023 COMPR EHENS ROCHELLE METAB OLIC PANEL bilirubin, total 0.1 mg/dL 0.2-1. 0 low Not Available [address] [place], [address] 10/04/2023 13:32:52 10/04/19 24 10/04/2023 COMPR EHENS ROCHELLE METAB OLIC PANEL alk phos 134 U/L 46-116 high Not Available [address] [place], [address] 10/04/2023 13:32:52 10/04/19 24 10/04/2023 COMPR EHENS ROCHELLE METAB OLIC PANEL sodium 141 mmol/ L 136-14 5 normal Not Available [address] [place], [address] 10/04/2023 13:32:52 10/04/19 24 10/04/2023 COMPR EHENS ROCHELLE METAB OLIC PANEL potassium 4.8 mmol/ L 3.5-5. 1 normal Not Available [address] [place], [address] 10/04/2023 13:32:52 10/04/19 24 10/04/2023 COMPR EHENS ROCHELLE METAB OLIC PANEL chloride 103 mmol/ L 98-107 normal Not Available [address] [place], [address] 10/04/2023 13:32:52 10/04/19 24 10/04/2023 COMPR EHENS ROCHELLE METAB OLIC PANEL CO2 34.0 mmol/ L 21.0-3 2.0 high Not Available [address] [place], [address] 10/04/2023 13:32:52 10/04/19 24 10/04/2023 COMPR EHENS ROCHELLE METAB OLIC PANEL anion gap 4.0 mmol/ L 3-11 normal Not Available [address] [place], [address] 10/04/2023 13:32:52 10/04/19 24 10/04/2023 COMPR EHENS ROCHELLE METAB OLIC PANEL AST 23 U/L 15-37 normal Not Available Estelita suarez [address] [place], [address] 10/04/2023 13:32:52 10/04/19 24 10/04/2023 COMPR EHENS ROCHELLE METAB OLIC PANEL ALT 37 U/L 14-59 normal Not Available Estelita suarez [address] [place], [address] 10/04/2023 13:32:52 10/04/19 24 10/04/2023 HCG QUAL (SERU M) HCG qual (serum) Negati ve Sure- Rylie Serum hCG has a sensi tivit y of 10 mIU/m L in serum and is capab le of detec ting pregn nena as early as 1 day after the first misse d mense s. Not Available [address] [place], [address] 10/04/2023 13:35:50 10/04/19 24 10/04/2023 G B O Positi ve Not Available [address] [place], [address] 10/04/2023 13:54:52 10/04/19 24 10/04/2023 G abs NEGATI VE Not Available [address] [place], [address] 10/04/2023 13:54:52 10/04/19 24 10/04/2023 G B O Positi ve Not Available [address] [place], [address] 10/04/2023 13:56:53 10/04/19 24 10/04/2023 G abs NEGATI VE Not Available [address] [place], [address] 10/04/2023 13:56:53 10/04/19 24 10/04/2023 URINA LYSIS color Yellow yellow Not Available Estelita suarez [address] [place], [address] 10/04/2023 14:08:54 10/04/19 24 10/04/2023 URINA LYSIS clarity Sl Cloudy clear Not Available [address] [place], [address] 10/04/2023 14:08:54 10/04/19 24 10/04/2023 URINA LYSIS specific gravity >= 1.030 1.005- 1.025 high Not Available [address] [place], [address] 10/04/2023 14:08:54 10/04/19 24 10/04/2023 URINA LYSIS pH 6.0 5-8 normal Not Available Estelita suarez [address] [place], [id number] 10/04/2023 14:08:54 10/04/19 24 10/04/2023 URINA LYSIS leukocyte esterase Negati ve negati ve Not Available [address] [place], [id number] 10/04/2023 14:08:54 10/04/19 24 10/04/2023 URINA LYSIS nitrite Positi ve negati ve abnormal Not Available [address] [place], [id number] 10/04/2023 14:08:54 10/04/19 24 10/04/2023 URINA LYSIS protein Negati ve mg/dL neg-tr dee Not Available [address] [place], [id number] 10/04/2023 14:08:54 10/04/19 24 10/04/2023 URINA LYSIS glucose Negati ve mg/dL negati ve Not Available [address] [place], [id number] 10/04/2023 14:08:54 10/04/19 24 10/04/2023 URINA LYSIS ketones Negati ve mg/dL negati ve Not Available [address] [place], [id number] 10/04/2023 14:08:54 10/04/19 24 10/04/2023 URINA LYSIS urobilinogen 0.2 mg/dL up to 0.2 Not Available [address] [place], [id number] 10/04/2023 14:08:54 10/04/19 24 10/04/2023 URINA LYSIS bilirubin Negati ve negati ve Not Available [address] [place], [id number] 10/04/2023 14:08:54 10/04/19 24 10/04/2023 URINA LYSIS blood Negati ve negati ve Not Available [address] [place], [address] 10/04/2023 14:08:54 10/04/19 24 10/04/2023 URINA LYSIS color Yellow yellow Not Available Estelita suarez [address] [place], [address] 10/04/2023 14:16:57 10/04/19 24 10/04/2023 URINA LYSIS clarity Sl Cloudy clear Not Available Pb louie [address] [place], [address] 10/04/2023 14:16:57 10/04/19 24 10/04/2023 URINA LYSIS specific gravity >= 1.030 1.005- 1.025 high Not Available [address] [place], [address] 10/04/2023 14:16:57 10/04/19 24 10/04/2023 URINA LYSIS pH 6.0 5-8 normal Not Available Estelita suarez [address] [place], [address] 10/04/2023 14:16:57 10/04/19 24 10/04/2023 URINA LYSIS leukocyte esterase Negati ve negati ve Not Available [address] [place], [address] 10/04/2023 14:16:57 10/04/19 24 10/04/2023 URINA LYSIS nitrite Positi ve negati ve abnormal Not Available [address] [place], [address] 10/04/2023 14:16:57 10/04/19 24 10/04/2023 URINA LYSIS protein Negati ve mg/dL neg-tr dee Not Available [address] [place], [address] 10/04/2023 14:16:57 10/04/19 24 10/04/2023 URINA LYSIS glucose Negati ve mg/dL negati ve Not Available [address] [place], [address] 10/04/2023 14:16:57 10/04/19 24 10/04/2023 URINA LYSIS ketones Negati ve mg/dL negati ve Not Available [address] [place], [address] 10/04/2023 14:16:57 10/04/19 24 10/04/2023 URINA LYSIS urobilinogen 0.2 mg/dL up to 0.2 Not Available [address] [place], [address] 10/04/2023 14:16:57 10/04/19 24 10/04/2023 URINA LYSIS bilirubin Negati ve negati ve Not Available [address] [place], [address] 10/04/2023 14:16:57 10/04/19 24 10/04/2023 URINA LYSIS blood Negati ve negati ve Not Available [address] [place], [address] 10/04/2023 14:16:57 10/04/19 24 10/04/2023 MICRO SCOPI C FINDI NGS WBC 0-2 hpf 0-5 Not Available Estelita suarez [address] [place], [address] 10/04/2023 14:16:57 10/04/19 24 10/04/2023 MICRO SCOPI C FINDI NGS RBC 0-2 hpf 0-2 Not Available Estelita suarez [address] [place], [address] 10/04/2023 14:16:57 10/04/19 24 10/04/2023 MICRO SCOPI C FINDI NGS epithelial cells Many hpf negati ve Not Available [address] [place], [address] 10/04/2023 14:16:57 10/04/19 24 10/04/2023 MICRO SCOPI C FINDI NGS bacteria Many hpf negati ve Not Available [address] [place], [address] 10/04/2023 14:16:57 10/04/19 24 10/04/2023 MICRO SCOPI C FINDI NGS crystals Negati ve hpf negati ve Not Available [address] [place], [address] 10/04/2023 14:16:57 10/04/19 24 10/04/2023 MICRO SCOPI C FINDI NGS mucus Negati ve negati ve Not Available [address] [place], [address] 10/04/2023 14:16:57 10/04/19 24 10/04/2023 MICRO SCOPI C FINDI NGS casts Negati ve lpf negati ve Not Available [address] [place], [address] 10/04/2023 14:16:57 10/04/19 24 10/04/2023 MICRO SCOPI C FINDI NGS C S indicated? No/Sq. Contam inatio n Not Available [address] [place], [address] 10/04/2023 14:16:57 10/04/19 24 10/04/2023 URINE DRUG SCREE N ([facility] ) methadone Positi ve negati ve abnormal Not Available [address] [place], [address] 10/04/2023 14:26:57 10/04/19 24 10/04/2023 URINE DRUG SCREE N ([facility] ) benzodiazepi judi Negati ve negati ve Benzo diaze pines are exten sivel y metab olize d and the paren t compo und may not be detec eva in urine . If clini max suspi cion is high, pleas e notif y Lab for send- out testi ng. Not Available [address] [place], [address] 10/04/2023 14:26:57 10/04/19 24 10/04/2023 URINE DRUG SCREE N ([facility] ) cocaine Negati ve negati ve Not Available [address] [place], [address] 10/04/2023 14:26:57 10/04/19 24 10/04/2023 URINE DRUG SCREE N ([facility] ) amphetamines Negati ve negati ve Not Available [address] [place], [address] 10/04/2023 14:26:57 10/04/19 24 10/04/2023 URINE DRUG SCREE N ([facility] ) tetrahydroca nnabinol Negati ve negati ve Not Available [address] [place], [address] 10/04/2023 14:26:57 10/04/19 24 10/04/2023 URINE DRUG SCREE N ([facility] ) opiates Negati ve negati ve Not Available [address] [place], [address] 10/04/2023 14:26:57 10/04/19 24 10/04/2023 URINE DRUG SCREE N ([facility] ) barbiturates Negati ve negati ve Not Available [address] [place], [address] 10/04/2023 14:26:57 10/04/19 24 10/04/2023 URINE DRUG SCREE N ([facility] ) tricyclic antidepressa nts Negati ve negati ve T his test is not suita ble for legal purpo ses Cutof f terrance ntrat ions for each drug class are: MTD 300 ng/mL BZO 200 ng/mL BILLY 300 ng/mL * AMP 1000 ng/mL * THC 50 ng/mL OPI 300 ng/mL BAR 200 ng/mL TCA 1000 ng/mL *Ian mmend ed scree no cutof f terrance ntrat ions by the subst ance abuse and mentnestor corona healt h servi elvia admin istra tion. This test provi arnaud preli minar y resul ts. A more speci fic alter jordin metho d such as GC/MS is the prefe rred confi rmato ry metho d. Notif y the Labor atory withi n 72 hours of repor t date if you claudette e confi rmati on. Presc ribed medic ation s may give posit rochelle resul ts and must be consi dered prior to inter preta tion of these resul ts. Not Available [address] [place], [address] 10/04/2023 14:26:57 10/04/19 24 10/04/2023 CT imagi ng repor t Patien t Name: Lolis Ervin ramesh A Unit #: [id number] Loc: ER Orderi ng Provid er: Jesus Albertomyron on,Kalyan wna BEEHIVE KILN SUPERVISOR Accoun t #: [id number] Status : PRE ER Primar y Care Provid er: SYDNIE MARTEL NP Date of Exam: 09/22 06/17 Sex: F : 1990 Age: 32 Exam(s ) a CT:CT head cerv spine facial wo Exam(s ) CT HEAD CERV SPINE FACIAL WO EXAM: CT HEAD CERV SPINE FACIAL WO CLINIC AL HISTOR Y: Facial trauma last PM, On Antico agulat ion, trauma , C-spin e pain. TECHNI QUE: Imagin g Protoc ol: Axial comput ed tomogr aphy images with peace l and sagitt al reform atted images were create d and review ed COMPAR MAYITO: CT CT BRAIN NECK CTA from 2021 FINDIN GS: CT BRAIN: No skull fractu res eviden t but there is left side nasal bone fractu re demons trated . In the intrac ranial compar tment there is again noted a endova scular stent within the intrac averno us left event marketing intern al caroti d artery . There is also emboli zation [place] materi al noted in simila r locati on on the right side. There is no eviden ce of intrac ranial hemorr laurel, mass effect , or shift of midlin e struct ures. There are no extra- axial fluid collec tions. The ventri cles are not enlarg ed or shifte d and there is no blood within the ventri cular system nor within the basal cister ns. Area of abnorm al hypode nsity in the right fronta l lobe from prior infarc t appear s unchan ged. No new obviou s infarc ts eviden t. No hemorr laurel. CT MAXILL OFACIA L BONES: Left-s ided nasal bone fractu re eviden t. No eviden ce of orbita l blowou t fractu re or other facial fractu res. CT CERVIC AL SPINE: There is no eviden ce of fractu re nor listhe sis. No signif icant prever tebral soft tissue swelli ng. No facet malali gnment eviden t. No signif icant osseou s lesion s eviden t. IMPRES ASHLEY: No acute intrac ranial findin gs on this noninf used CT scan of the brain. Again noted is an endova scular stent in the intrac averno us left event marketing intern al caroti d artery and [place] materi al on the right side. Also again noted is eviden ce of previo us right fronta l lobe infarc t, unchan ged. Left-s ided nasal bone fractu re now eviden t. No other facial fractu res identi fied. No eviden ce of cervic al spine fractu re, malali gnment , nor acute compro mise of the cervic al spinal canal. Called by myself to ER physic romelia. RADIAT ION DOSE DELIVE RED: 2,571. 93mGy. cm Total DLP DATA REPOSI TORY: All CT scans at this facili ty are submit eva to the [facility] al Radiol ogy Data Regist ry (NRDR) Dose Index Regist ry (DIR) with the [place] of Radiol ogy (ACR). RADIAT ION OPTIMI ZATION : All CT scans at this facili ty use at least one of these dose optimi zation techni ques: automa eva exposu re contro l; mA and/or kV adjust ment per patien t size (inclu arnaud target ed exams where dose is matche d to clinic al indica tion); or iterat rochelle recons tructi on. 022: Total DLP = 0.00 mGy-cm Ordere d By: Kalyan Walters NP CC: ------ ------ ------ ------ ------ ------ ------ ------ ------ ------ ------ ------ ---- Dictat ed By: Cornelius Osborne M.D. 1516 1516 Transc ribed By: [place] CASE,Kimi benton 1516 This is privil eged, confid ential inform ation intend ed only for the provid er named. Any use or distri bution by any person other than this provid er is strict ly prohib ited. If you receiv e this report in error, please notify us immedi leónly at and return the origin al report to us at the addres s above. Thank- you. [email or web address] [facility] [address] [facility] [place], [address] 10/04/2023 15:32:21 12/27/19 24 12/27/2023 CT imagi ng repor t Patien t Name: Ervin Lolis A Unit #: [id number] Loc: ER Orderi ng Provid er: Orlin Mo DO Accoun t #: [id number] Status : PRE ER Primar y Care Provid er: SYDNIE MARTEL BEEHIVE KILN SUPERVISOR Date of Exam: 08/15 Sex: F : 1990 Age: 33 Exam(s ) a CT:CT head wo Exam(s ) CT HEAD WO EXAM: CT HEAD WO CLINIC AL HISTOR Y: hx of bleed and stroke , eval for bleed. TECHNI QUE: Imagin g Protoc ol: Axial comput ed tomogr aphy images with peace l and sagitt al reform atted images were create d and review ed COMPAR MAYITO: CT CT HEAD CERV SPINE FACIAL WO from 2023 FINDIN GS: There are no skull fractu res. There is no fluid in the visual ized parana michael sinuse s. Again noted is an endova scular stent throug hout the length of the left intra cavern ous event marketing intern al caroti d artery . There is also again noted marker device s in the proxim al and distal aspect s of the intra cavern ous right event marketing intern al caroti d artery as well as emboli zation coil materi al again noted within the intra cavern ous right event marketing intern al caroti d artery . There is no eviden ce of intrac ranial hemorr laurel, mass effect , or shift of midlin e struct ures. There are no extra- axial fluid collec tions. The ventri cles are not enlarg ed or shifte d and there is no blood within the ventri cular system nor within the basal cister ns. There is unchan ged abnorm al hypode nsity in the right fronta l lobe convex ity from prior infarc t, unchan ged. No new areas of obviou s new infarc t nor hemorr laurel in the brain, intra or extra- axial. Two findin gs in the orbits . IMPRES ASHLEY: No acute intrac ranial findin gs. Again noted is endova scular stent throug hout the length of the intrac averno us left event marketing intern al caroti d artery as well as emboli zation coil materi al within the intrac averno us right event marketing intern al caroti d artery . Right fronta l lobe convex ity infarc t again noted, unchan ged. No eviden ce of intrac ranial hemorr laurel, intra or extra- axial and no obviou s new infarc ts eviden t. RADIAT ION DOSE DELIVE RED: 921.25 mGy.cm Total DLP DATA REPOSI TORY: All CT scans at this facili ty are submit eva to the [facility] al Radiol ogy Data Regist ry (NRDR) Dose Index Regist ry (DIR) with the [place] of Radiol ogy (ACR). RADIAT ION OPTIMI ZATION : All CT scans at this facili ty use at least one of these dose optimi zation techni ques: automa eva exposu re contro l; mA and/or kV adjust ment per patien t size (inclu arnaud target ed exams where dose is matche d to clinic al indica tion); or iterat rochelle recons tructi on. 046: Total DLP = 0.00 mGy-cm Ordere d By: Orlin Mo DO CC: ------ ------ ------ ------ ------ ------ ------ ------ ------ ------ ------ ------ ---- Dictat ed By: Cornelius Osborne M.D. 1806 Transc ribed By: [place] CASE,Kimi benton 1806 This is privil eged, confid ential inform ation intend ed only for the provid er named. Any use or distri bution by any person other than this provid er is strict ly prohib ited. If you receiv e this report in error, please notify us immedi ately at and return the origin al report to us at the addres s above. Thank- you. INTERFACE [address] [place], [address] 12/27/2023 18:13:15 12/27/19 24 12/27/2023 CT imagi ng repor t Patien t Name: Lolis Ervin A Unit #: [id number] Loc: ER Orderi ng Provid er: Orlin Mo DO Accoun t #: [id number] Status : PRE ER Primar y Care Provid er: SYDNIE MARTEL BEEHIVE KILN SUPERVISOR Date of Exam: 08/15 Sex: F : 1990 Age: 33 Exam(s ) a CT:CT chest/ abd/pe l wo Exam(s ) CT CHEST/ ABD/PE L WO EXAM: CT CHEST/ ABD/PE L WO CLINIC AL HISTOR Y: acute renal failur e, chest pain. TECHNI QUE: Imagin g Protoc ol: Axial comput ed tomogr aphy images with peace l and sagitt al reform atted images were create d and review ed CONTRA ST MATERI AL: Intrav enous: none Oral: None COMPAR MAYITO: CT CT CHEST PE CTA from 2022 FINDIN GS: CHEST: Scolio sis and Harrin gton rods throug hout the thorac ic spinal column again noted. LUNGS: Right lung is clear. The infilt rate in the right lung which was eviden t on CT scan of 2022 has resolv ed, as has the right pleura l effusi on.. In additi on, the conflu ent infilt rate which was previo usly presen t in the left lower lobe has also resolv ed. Howeve r, presen tly there is ground -glass infilt rate throug hout the left lower lobe as well as in the left upper lobe includ ing the lingul ar segmen t. No associ ated left-s domingo pleura l effusi on. No signif icant focal findin gs in the trache a and mainst em bronch i. No bronch iectas is. MEDIAS TINUM: No obviou s hilar nor medias tinal adenop athy. No subcar inal adenop athy.P artial ly visual ized thyroi d unrema rkable . CARDIA C: Heart size is normal . There is no perica rdial effusi on.Max iber of the thorac ic aorta is within normal limits . OSSEOU S: Scolio sis and Harrin gton rods in the thorac ic spine. . ABDOME N: There is no ascite s. LIVER: There are no obviou s focal hepati c lesion s eviden t of this noninf used study. GALLBL ADDER/ BILIAR Y: No obviou s gallbl adder pathol ogy. CBD is not dilate d. PANCRE : No eviden ce of obviou s pancre atic mass nor dilata tion of the pancre atic duct. SPLEEN : There is spleno megaly . Cranio caudal measur ement of the spleen is 16.6 cm. ADRENA LS: There are no signif icant adrena l masses . KIDNEY S: No calcul i nor hydron ephros is. No obviou s solid renal masses . No cysts eviden t. ABDOMI NAL AORTA: Abdomi nal aorta is not enlarg ed. LYMPH NODES: There is no retrop eriton eal nor para-a ortic adenop athy. ABDOMI NAL WALL/G I: No eviden ce of signif icant anteri or abdomi nal wall nor inguin al hernia . No eviden ce of bowel obstru ction. PELVIS : LYMPH NODES: There is no intrap elvic nor inguin al adenop athy. GI: No eviden ce of append icitis .As abunda nt fecal materi al in the left side of the colon and sigmoi d. No eviden ce of signif icant divert icular diseas e. URINAR Y BLADDE R: No calcul i nor obviou s masses eviden t REPROD UCTIVE : Uterus size normal . Ovaria n size normal . Small calcif icatio ns are noted in both ovarie s. There is no fluid in the adnexa l region s and cul-de -sac. OSSEOU S: No fractu res. No signif icant osseou s lesion s. Subtle eviden ce of sacroi liitis . IMPRES ASHLEY: 1. Compar ed to prior CT scan of 2022 there has been cleari ng of the previo usly presen t conflu ent bilate ral lung infilt rates and right pleura l effusi on. Presen tly the right lung is clear, howeve r, there is now differ ent type of infilt rate throug hout the left lower lobe as well as the superi or lingul ar segmen t of the left lung, this being patchy /groun d-glas s. No associ ated pleura l effusi on. No signif icant secret ions eviden t in the trache a and mainst em bronch i. No intrat horaci c adenop athy at this time. 2. There is spleno megaly again noted. No adenop athy. The CT report s called by myself to ER physic romelia 2023 6:20 p.m. RADIAT ION DOSE DELIVE RED: 785.32 mGy.cm Total DLP DATA REPOSI TORY: All CT scans at this [facility] ty are submit eva to the [facility] al Radiol ogy Data Regist ry (NRDR) Dose Index Regist ry (DIR) with the [place] of Radiol ogy (ACR). RADIAT ION OPTIMI ZATION : All CT scans at this [facility] ty use at least one of these dose optimi zation techni ques: automa eva exposu re contro l; mA and/or kV adjust ment per patien t size (inclu arnaud target ed exams where dose is matche d to clinic al indica tion); or iterat rochelle recons tructi on. 047: Total DLP = 0.00 mGy-cm Ordere d By: Orlin Mo DO CC: ------ ------ ------ ------ ------ ------ ------ ------ ------ ------ ------ ------ ---- Dictat ed By: Cornelius Osborne M.D. 1826 Transc ribed By: [place] CASE,Kimi benton 1826 This is privil eged, confid ential inform ation intend ed only for the provid er named. Any use or distri bution by any person other than this [facility] er is strict ly prohib ited. If you receiv e this report in error, please notify us immedlucia taylor at [phone] and return the origin al report to us at the addres s above. Thank- you. INTERFACE [facility] [address] [place] [address] [place], [address] 12/27/2023 18:31:16 12/27/19 24 12/27/2023 x-ray imagi jay jay repor t Farnaz t Name: Lolis Ervin Unit #: [id number] Loc: ER Nini Modi er: Orlin Mo Accoun t #: [id number] Status : REG ER Primar y Care Provid er: JUAN PABLOSYDNIE BEEHIVE KILN SUPERVISOR Date of Exam: 08/15 Sex: F Admiss ion Date: : 1990 Age: 33 Exam(s ) XR PORTAB LE CHEST AP POST LINE EXAM: XR PORTAB LE CHEST AP POST LINE CLINIC AL HISTOR Y: s/p centra l line placem ent. TECHNI QUE: 2D digita l imagin g was perfor med. COMPAR MAYITO: CR,XR XR PORTAB LE CHEST AP from 2022 FINDIN GS: Single AP portab le view. Distal tip the newly placed right jugula r centra l line is at the SVC-RA juncti on Heart size is slight ly promin ent, unchan ged. No obviou s pulmon kalen infilt rates nor pleura l effusi ons. No pneumo thorax . Harrin gton rods again noted in the thorac ic spine. IMPRES ASHLEY: Distal tip of right jugula r centra l line is at the SVC-RA juncti on No acute pulmon kalen findin gs althou gh please note that CT scan perfor med today reveal ed subtle infilt rate in the left lower lobe and lingul ar segmen t of the upper lobe. No infilt rates in the right lung. No pleura l effusi ons. DATA REPOSI TORY: RADIAT ION DOSE DELIVE RED: Ordere d By: Orlin Mo DO CC: ------ ------ ------ ------ ------ ------ ------ ------ ------ ------ ------ ------ - Dictat ed By: Cornelius Osborne M.D. 1937 Transc ribed By: [place] CASE,Kimi benton 1937 This is privil eged, confid ential inform ation intend ed only for the provid er named. Any use or distri bution by any person other than this provid er is strict ly prohib ited. If you receiv e this report in error, please notify us immedi leónly at and return the origin al report to us at the addres s above. Thank- you. INTERFACE [facility] [address], [place], [address] 12/27/2023 19:42:21 Result Notes None recorded. Problems Name Problem SNOMED Code Status Onset Date Resolution Date Notes Provider Name and Address Organization Details Recorded Time Gastroes ophageal reflux disease without esophagi tis 532691024 Active 2010 [facility] 4 19:03:32 Migraine 95458790 Active 2003 [facility] 4 19:05:06 Anxiety disorder 448651850 Completed 201001/17/2023 Problem Code: F41.9; Problem Code Type: ICD-10; Not Available [facility] 4 05:35:52 Bipolar disorder 70658427 Active 2010 [facility] 4 19:03:01 Scoliosi s deformit y of spine 900064371 Active 2010 Spinal fusion 2008 [facility] 4 19:05:36 Paroxysm al supraven tricular tachycar rod 29847324 Active 2014 [facility] 4 19:05:11 Dysuria 90313652 Completed 201412/01/2014 Problem Code: R30.0; Problem Code Type: ICD-10; Not Available [facility] 3 05:06:29 History of urinary stone 530673232 Active 2014 [facility] 4 19:04:25 Hypomagn esemia 337948762 Active 2014 [facility] 4 19:04:32 Nervous system and sense organ diseases 550269136 Active 2015 Not Available [facility] 3 05:06:30 History of disorder of digestiv e system 284429433 Active 2015 Hx Hep C-- GT3, [facility] 4 19:06:25 Chronic pain 37879906 Active 2015 [facility] 4 19:03:18 Acute bronchit is 04003078 Completed 201607/14/2016 07/01/19 17 - Comments only - Marla Angelo MD - see patient instruct ions below. Problem Code: J20.9; Problem Code Type: ICD-10; Not Available [facility] 3 05:06:30 Otitis media of left ear 17021935498 67597 Completed 201610/10/2016 09/27/19 17 - Comments only - Gracia Velazco APRN - Start penicill in BID X 10 days. Continue using certrizi ne. Use nasonex twice daily. May add OTC deconges tant and tylenol as needed for pain. Problem Code: H66.92; Problem Code Type: ICD-10; Not Available [facility] 3 05:06:30 Cocaine abuse 62282872 Active 2017 [facility] 4 19:03:22 Insomnia disorder related to another mental disorder 82982704 Active 2017 [facility] 4 19:04:37 Tachycar rod 9641928 Completed 201701/17/2023 Problem Code: R00.0; Problem Code Type: ICD-10; Not Available [facility] 4 05:35:53 Opioid dependen ce in josé luis n 265469825 Active 2017 Methadon e therapy w/ BAART MONICA SPIVEY [address], [place], [address] , [facility] 4 08:44:14 Cardiomy opathy 33720083 Active 2018 [facility] 4 19:03:08 Cerebral infarcti on 738924542 Active 2018 [facility] 4 19:03:15 Atrial septal defect 35296419 Active 2018 [facility] 4 19:02:56 Disorder of tooth developm ent 681665530 Completed 201801/17/2023 Problem Code: K00.9; Problem Code Type: ICD-10; Not Available [facility] 4 05:35:54 Nausea and vomiting 83659958 Completed 201912/14/2019 Problem Code: R11.2; Problem Code Type: ICD-10; Not Available [facility] 3 05:06:32 Severe obesity 26621012929 104 Active 2020 [facility] 4 19:03:52 Constipa tion 98297746 Active 2020 Related to methadon e MONICA SPIVEY [address], [place], [address] , [facility] 4 08:39:24 Nasal congesti on 93016809 Completed 202007/28/2020 07/15/19 21 - Comments only - Frances ANDERSON - Experein cing some nasal congesti on., voice is more hoarse than patient norm. Requeste d that she follow COVID quaranti ne precauti ons out of caution and we will assist with setting up COVID test. Problem Code: R09.81; Problem Code Type: ICD-10; Not Available [facility] 3 05:06:32 Joint pain 76677590 Completed 202001/17/2023 Problem Code: M25.50; Problem Code Type: ICD-10; Not Available [facility] 4 05:35:54 Low back pain 962321703 Active 2020 [facility] 4 19:04:47 History of transien t ischemic attack 777750364 Completed 202001/16/2023 08/12/19 22 - Comments only - Frances Sorensen [employer] DEVELOPER - Was recently seen in the emergenc y room for concern for change in mental status. Work-up was essentia lly negative , there is concern for overmedi cation. Since then her methadon e dose has been cut in half to 45 mg daily, Lyrica has been reduced by 75 mg, cycloben zaprine and hydroxyz ine have been stopped. Ghada continue s to struggle with fatigue, she is working with speech therapy due to dysphagi a that was noted while in the hospital and will be working with physical therapy. Home health nursing and case manageme nt is also involved . Not Available [facility] 4 05:35:47 Non-toxi c uninodul ar goiter [id number] [facility] Psoriasi s 3386466 [facility] 2021 [facility] 4 19:05:21 Asthma 554677452 Active 2021 [facility] 4 19:02:50 Dermatop hytosis 25377172 Completed 202101/17/2023 Problem Code: B35.9; Problem Code Type: ICD-10; Not Available [facility] 4 05:35:51 Genuine stress incontin ence 49935053 Completed 202101/17/2023 Problem Code: N39.3; Problem Code Type: ICD-10; Not Available [facility] 4 05:35:53 Altered mental status 990067957 Active 2021 [facility] 4 19:[facility] Pain of joint of knee 9220057768 Active 2021 [facility] 4 19:05:15 Food insecuri ty 885002166 Completed 202109/22/2021 Problem Code: Z59.41; Problem Code Type: ICD-10; Not Available [facility] 3 05:06:34 Secondar y amenorrh ea 382803481 Active 2021 [facility] 4 19:05:47 Osteoart hritis 286434110 Active 2021 [facility] 4 19:04:55 Iron deficien cy anemia 72138637 Active 2021 [facility] 4 19:04:43 Adult health examinat ion Active 2021 [facility] 4 19:04:02 Lung field abnormal 409030995 Active 2021 1.5cm Rt lower [facility] 4 19:06:51 Prediabe anthony 341502433 Active 2021 [facility] 4 19:03:46 Cough 50159468 Completed 202206/25/2022 Problem Code: R05.8; Problem Code Type: ICD-10; Not Available [facility] 3 05:06:36 Staphylo coccal pneumoni a 87541915 Completed 202201/17/2023 Problem Code: J15.20; Problem Code Type: ICD-10; Not Available [facility] 4 05:35:51 Deep venous thrombos is of upper extremit y 387438602 Completed 202204/04/2023 01/18/20 23 - Comments only - Des Ramos MD - We reviewed the recommen dations after discharg e from [facility], which was 3 months of apixaban for a provoked UE DVT. Ghada has complete d this. Transiti on back to her previous stroke preventi on DAPT ASA/clop idogrel. Not Available [facility] 4 05:35:49 Sleep apnea 24449190 Active 2022 Clydeafia HuntCastillo null, [facility] 4 19:03:57 Disorder of kidney and/or ureter 266399445 Completed 202202/15/2023 Problem Code: N28.9; Problem Code Type: ICD-10; Not Available [facility] 4 05:35:52 Urinary tract infectio us disease 53507076 Completed 201707/12/2018 Problem Code: N39.0; Problem Code Type: ICD-10; Not Available [facility] 3 05:06:45 Disorder of respirat ory system 03688405 Completed 202108/11/2021 Problem Code: J98.8; Problem Code Type: ICD-10; Not Available [facility] 3 05:06:45 Anemia 920569427 Completed 201702/15/2022 Problem Code: D64.9; Problem Code Type: ICD-10; Not Available [facility] 3 05:06:46 Chest pain 94482062 Completed 201905/19/2020 Problem Code: R07.9; Problem Code Type: ICD-10; Not Available [facility] 3 05:06:46 Chronic rhinitis 33412374 Completed 202101/18/2023 05/22/19 22 - Comments only - Frances Sorensen [employer] V[employer] DEVELOPER - COVID-19 swab complete d today out of precauti on. Problem Code: J31.0; Problem Code Type: ICD-10; Not Available [facility] 3 05:06:47 Depressi ve disorder 06101820 Completed 201001/18/2023 02/20/20 18 - Improved - Susana Morales MSN [employer] SALES PROFESSIONAL - marked improvem ent in depressi on symptoms , wishes to continue on paxil and increase discusse d in relation to anxiety symptoms , see below. Not Available [facility] 3 05:06:47 Acute sinusiti s 16342894 Completed 202209/12/2022 Problem Code: J01.90; Problem Code Type: ICD-10; Not Available [facility] 3 05:06:47 Breast lump 87719522 Completed 201805/19/2020 Problem Code: N63.0; Problem Code Type: ICD-10; Not Available [facility] 3 05:06:48 Pain of left knee joint 78652796406 4107 Completed 201809/28/2021 Problem Code: M25.562; Problem Code Type: ICD-10; SYDNIE MARTEL, [employer] VBA DEVELOPER [address], [place], [address] [facility] 4 11:53:14 Dizzines s and giddines s 893794814 Completed 202009/28/2021 Problem Code: R42; Problem Code Type: ICD-10; Not Available [facility] 3 05:06:50 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 72973735 Completed 201009/28/2021 Problem Code: 722.2; Problem Code Type: ICD-9; Not Available [facility] 3 05:06:50 Adult health examinat ion Completed 202010/27/2020 Problem Code: Z00.00; Problem Code Type: ICD-10; [facility] Swelling 82354388 Completed 201809/28/2021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 Available Not Available Not Available ProAir RespiClic k 90 mcg/actua tion breath activated active Not Available Not Available No t Available Taltz Autoinjec tor 80 mg/mL subcutane ous Inject 1 ml per derm active Not Available Not Available No t Available Relistor 150 mg tablet Take by oral route for 30 days. active Not Available Not Available No t Available Mavyret 100 mg-40 mg tablet 3 tablet by mouth once a day 02/11 completed Not Available Not Available Not Available Voltaren Arthritis Pain 1 % topical gel Apply 1 a small amount to affected area four times a day as needed maximum total body dose (all combined areas): 32 g/day 2023 active Not Available Not Available Not Avai lable Vitals Date Recorded Body height Body mass index (BMI) Body weight Body temperature Respiratory rate Oxygen saturation Oxygen saturation in Arterial blood by Pulse oximetry Heart rate Systolic blood pressure Diastolic blood pressure Provider Name and Address Organization Details Last Updated DateTime 4 157.988 cm 50.7 kg/m2 746845. 27 g 98.2 [degF] 16 /min 98 % 98 % 68 /min 108 mm[Hg] 80 mm[Hg] SHERRILL WANG RN [facility], [facility] 4 15:14:02 Date Recorded Body height Body mass index (BMI) Body weight Body temperature Oxygen saturation Oxygen saturation in Arterial blood by Pulse oximetry Heart rate Systolic blood pressure Diastolic blood pressure Provider Name and Address Organization Details Last Updated DateTime 4 157.99 cm 43.3 kg/m2 506669. 78 g 98.1 [degF] 98 % 98 % 80 /min 151 mm[Hg] 80 mm[Hg] Susana Kumar MA [facility] 4 09:52:49 Date Recorded Body height Body mass index (BMI) Body weight Body temperature Respiratory rate Oxygen saturation Oxygen saturation in Arterial blood by Pulse oximetry Heart rate Systolic blood pressure Diastolic blood pressure Provider Name and Address Organization Details Last Updated DateTime 4 157.99 cm 43.1 kg/m2 879050. 39 g 97.8 [degF] 16 /min 96 % 96 % 95 /min 105 mm[Hg] 68 mm[Hg] SHERRILL WANG RN [facility], [facility] 4 15:40:20 Date Recorded Body height Body mass index (BMI) Body weight Body temperature Oxygen saturation Oxygen saturation in Arterial blood by Pulse oximetry Heart rate Systolic blood pressure Diastolic blood pressure Provider Name and Address Organization Details Last Updated DateTime 4 157.99 cm 45.2 kg/m2 345138. 5 g 97.7 [degF] 97 % 97 % 90 /min 120 mm[Hg] 62 mm[Hg] Susana Kumar MA [facility], [facility] 4 11:17:37 Social History Question Answer Notes LastModified by Organizat ion Details LastModified Time Tobacco Smoking Status Current Every Day Smoker SHERRILL WANG RN [facility], [facility], [facility] 08/04/2023 15:38:17 Date Care Plan Printed: 08/14/2023 Information not available 08/14/2023 Assigned Health Education Specialist: Soraya Granados RN Information not available 08/14/2023 Is [facility] The Lead Health Education Specialist? No [facility], Lucina Saldivar Is Lead [phone] Information not available 08/14/2023 Level Of Intensity: Quarterly Information not available 08/14/2023 Team Based Care: Yes Informat ion not available 08/14/2023 Hearing Barrier No Informati on not available 08/14/2023 Vision Barrier No Informatio n not available 08/14/2023 Social Barrier Yes Between Houses, Struggling With Addiction Information not available 08/14/2023 Medical Literacy Yes Informat ion not available 08/14/2023 Other Barriers To Care (See Note) No Information not available 08/14/2023 Learning Barrier Yes Ghada Is Often Very Sleepy/groggy From Her Meds, And This Impairs Her Learning Ability Information not available 08/14/2023 Last Care Team Meeting 09/01/2023 Discussed Today With [facility] Information not available 09/01/2023 Transportation Barrier Yes Does Not Have A License Information not available 08/14/2023 Financial Barrier Yes Does Not Work Info rmation not available 08/14/2023 Community Fuel Attendant Yes Information not available 08/14/2023 Dental Services No Informati on not available 08/14/2023 Diabetes Education No Information not available 08/14/2023 Food Resources Yes Informatio n not available 08/14/2023 Fuel Assistance No Informati on not available 08/14/2023 Hospice No Information not available 08/14/2023 Housing Yes Information not available 08/14/2023 Insurance Enrollment Yes Information not available 08/14/2023 Senior Living Care No Informatio n not available 08/14/2023 Meals On Wheels No Informati on not available 08/14/2023 Medication Assistance No Information not available 08/14/2023 Physical Activity Programs No Information not available 08/14/2023 Fdc No Informati on not available 08/14/2023 Social Security/Disabili ty No Information not available 08/14/2023 Transportation Yes Informatio n not available 08/14/2023 Chronic Disease Management No Information not available 08/14/2023 Chronic Pain Management No Information not available 08/14/2023 Diabetes Prevention Program No Information not available 08/14/2023 Diabetes Self Management Program No Information not available 08/14/2023 Diabetes Support Group No Information not available 08/14/2023 Health [employer] For HTN Control No Information not available 08/14/2023 Tobacco Cessation No Informa tion not available 08/14/2023 Weight Loss Program No Information not available 08/14/2023 WRAP No Information not available 08/14/2023 AHS (Occupational Physician) No Information not available 08/14/2023 Adult Protective Services No Information not available 08/14/2023 BAART Yes Information not available 08/14/2023 Community Behavioral Services No Information not available 08/14/2023 Community Restorative Justice No Information not available 08/14/2023 DCF Yes Information not available 08/14/2023 Department Of Labor No Information not available 08/14/2023 Economic Services No Informa tion not available 08/14/2023 EMS No Information not available 08/14/2023 [place] Support Services No Information not available 08/14/2023 HireAbility No Information not available 08/14/2023 [facility] No Information not available 08/14/2023 NECKA Yes Information not available 08/14/2023 NEKYS No Information not available 08/14/2023 RCT Yes Information not available 08/14/2023 [employer] No Information not available 08/14/2023 [employer] No Information not available 08/14/2023 School Counselor No Informat ion not available 08/14/2023 School Nurse No Information not available 08/14/2023 Umbrella No Information not available 08/14/2023 VCCi Yes Information not available 08/14/2023 [place] [facility] No Information not available 08/14/2023 Patrol Deputy Sheriff On Aging No Informat ion not available 08/14/2023 Designated Agency Yes Has Intake Appt On 08/31 Information not available 08/14/2023 Home Health Agency No Information not available 08/14/2023 Providers Yes Information not available 08/14/2023 SAS No Information not available 08/14/2023 Other Support System No Information not available 08/14/2023 What Was The Date Of Your Most Recent Tobacco Screening? 08/04/2023 Information not available 08/04/2023 How Much Tobacco Do You Smoke? 0.5 PPD Information not available 08/04/2023 Sex: Female Functional Status None recorded. Mental Status None recorded. Family History Relationship Description Onset Age of this Age Resolved Age Notes Mother Family history of acute medical disorder fibromyal emilie Notes:*Problem: Mother: Aliv e fibromyalgia Father: Alive Sisters: 2 Brothers: 1 Children: None Family History of: Hypertension: Yes dad, maternal GF Hyperlipidemia: Yes dad, maternal GF, several paternal aunts and 1 uncle Coronary heart disease: Yes paternal GM Diabetes mellitus: Yes dad, paternal GM, paternal aunts (2) Breast cancer: No Colorectal cancer: Yes paternal great uncle Alcoholism: Yes dad, maternal GF Mental illness: Yes depression dad, paternal GF bipolar, paternal aunts bipolar (2) Medical History No medical history recorded. Gynecological HistoryNo gynecological history recorded. Obstetrics History GPAL:G 0 P 0 0 0 0 Immunizations Vaccine Type Date Status Provider Name and Address Organization Details Recorded Time Hep A-Hep B 01/02/2019 completed Not Available [facility] 03/03/2023 06:19:39 Tdap 07/09/2018 completed Not Available [facility] 06:19:39 Influenza, split virus, quadrivalent, PF 05/21/2021 completed Not Available [facility] 03/03/2023 06:19:39 Influenza, split virus, quadrivalent, PF 05/28/2019 completed Not Available [facility] 03/03/2023 06:19:39 Influenza, split virus, quadrivalent, PF 02/15/2022 completed Not Available [facility] 03/03/2023 06:19:39 SARS-COV-2 (COVID-19) vaccine, UNSPECIFIED 10/19/2020 completed Not Available [facility] 03/03/2023 06:19:39 COVID-19, mRNA, LNP-S, bivalent, PF, 30 mcg/0.3 mL dose 02/15/2022 completed Not Available [facility] 03/03/20 06:19:39 pneumococcal polysaccharide PPV23 07/09/2018 completed Not Available [facility] 2022 06:19:39 Hep B, adult 11/04/2020 completed Not Available [facility] 03/03/2023 06:19:39 Hep B, unspecified formulation 11/04/2020 completed Not Available [facility] 03/03/2023 06:19:40 Hep B, unspecified formulation 01/02/2019 completed Not Available [facility] 03/03/2023 06:19:40 Hep A, adult 11/04/2020 completed Not Available [facility] 03/03/2023 06:19:40 Hep A, unspecified formulation 11/04/2020 completed Not Available [facility] 03/03/2023 06:19:40 Hep A, unspecified formulation 01/02/2019 completed Not Available [facility] 03/03/2023 06:19:40 influenza, unspecified formulation 04/27/2017 completed Not Available [facility] 03/03/2023 06:19:40 influenza, unspecified formulation 01/16/2017 completed Not Available [facility] 03/03/2023 06:19:40 Influenza, split virus, quadrivalent, PF 01/16/2023 completed Not Available [facility] 05/05/2023 05:31:47 Past Encounters Encounter ID Performer Location Encounter Start Date Encounter Closed Date Diagnosis/Indication Diagnosis SNOMED-CT Code Diagnosis ICD10 Code [id number] DES RAMOS [facility] [place] [address] 05/16/2023 14:58:47 05/16/2023 15:44:31 Cerebral infarction 773333002 I63.9 Cardiomyopathy 50683834 I42.9 Asthma 768421232 J45.90 9 Atrial septal defect 701 60760 Q21.10 Nicotine dependence 5629 4008 F17.325 [id number] SYDNIE MARTEL, [facility] [address] [place] [address] 08/03/2023 09:40:07 08/03/2023 11:39:35 Acute upper respiratory infection 98128240 J06.9 Oral piercing 271546000 Z18.89 [id number] [facility] [address] [place] [address] 08/04/2023 15:13:49 08/04/2023 16:27:08 Iron deficiency anemia 37272086 D50.9 Hypomagnesemia 768851466 E83.42 Fatigue 47638761 R53.83 [id number] SYDNIE MARTEL, [facility] [address] [place] [address] 09/20/2023 10:53:52 09/20/2023 12:09:38 Constipation 42252996 K59.00 Pain of le ft knee joint 6757074043 02516 M25.562 Pain of ri ght knee joint 4248435506 04053 M25.561 Cerebral infarction 4325 44562 I63.9 Cardiomyopathy 77128788 I42.9 Atrial septal defect 701 26876 Q21.10 Nicotine dependence 5629 4008 F17.200 Sleep apnea 87560755 G47 .30 Bipolar disorder 5059454 4 F31.9 Secondary amenorrhea 156 901961 N91.1 Goals Section Goal Description Status Start Date LastModified by Organization Details LastModified Time I want/need to stay sober so that I can be with my boys None Recorded Goal not achieved 024 CL[place] GRANADOS Information not available 08/14/2023 16:44:02 I need to get my Social Security Card None Recorded Goal not achieved 024 [place] GRANADOS Information not available 08/14/2023 16:44:50 I need to find permanent housing None Recorded Goal not achieved [place] G[facility]DOS Information not available 08/14/2023 16:45:18 I'd like to get a job None Recorded Goal not achieved [place] GRANADOS Information not available 08/14/2023 16:46:38 I want to start therapy again and get a psych provider. My mental health deserves some attention None Recorded Goal not achieved CLIFTON GRANADOS Information not available 10/05/2023 20:53:56 I want to be as healthy as I can None Recorded Goal not achieved CLIFT[facility] GRANADOS Information not available 08/14/2023 16:48:24 Health Concerns Section Related Observation LastModified by Organization Detai ls LastModified Time None Recorded Concern Status LastModified by Organization Details LastModified Time Cocaine abuse Active CLIFTON GRANADOS Not Available 16:44:02 Cerebral infarction Active CLIFT[facility] GRANADOS Not Availa ble 11/04/2023 21:26:31 Advance Directives Directive None Recorded Payers Encounter Date Sequence Insurance Name Policy Number Policy Hayes Covered Member ID Hayes Member ID Guarantor Name 05/16/2023 2 [employer] (MEDICAID) Ghada A Ervin [id number] Ghada A Ervin 05/16/2023 1 [place] [employer] [place] Ghada A Ervin [id number] 2 Ghada A Ervin 08/03/2023 2 [employer] (MEDICAID) Ghada A Ervin [id number] Ghada A Ervin 08/03/2023 1 [place] Ghada A Ervin [id number] 2 Ghada A Ervin 08/04/2023 2 [employer] (MEDICAID) Ghada A Ervin [id number] Ghada A Ervin 08/04/2023 1 [place] Ghada A Ervin [id number] 2 Ghada A Ervin 09/20/2023 2 [employer] (MEDICAID) Ghada A Ervin [id number] Ghada A Ervin 09/20/2023 1 [place] Ghada A Ervin [id number] 2 Ghada Ervin Notes Date Note Type Note Provider Name and Address Organization Details Recorded Time 05/16/2023 text/html HPI Notes: Here for follow up she is still taking apixaban, not clopidogrel. taking aspirin. She has no pain or swelling in the arm where she had the clot. she has had a little cold for the past week, runny nose, a little wheezey. no fevers, not SOB. Would like inhaler. saw cardiology PLACIDO Keller [facility] 05/16/2023 15:47:44 08/03/2023 text/html HPI Notes: Lolis chandler presents to [facility] for evaluation of acute URI symptoms, as well as overgrown cheek piercing. 3 days of URI symptoms, including congestion, cough, chills. Denies any recent sick contacts. Poor appetite, tolerating p.o. however. Denies any nausea vomiting diarrhea. Approximately 30 pound weight loss over the past 3 months, contributed to dieting and activity. Complex medical history to include cardiomyopathy, atrial septal defect, history of cerebral infarction, bipolar disorder, and asthma. Recent relapse to cocaine several weeks ago (?), Substance free since however. Denies any recent heroin use. Established with [facility] for methadone therapy. SYDNIE MARTEL, [employer] [address], [place], [address], [facility] 08/03/2023 13:04:59 08/04/2023 text/html HPI Notes: left ankle and foot swelling for a couple of weeks, painful and more swollen in the evening when she is on her feet during the day. She doesn't remember twisting it or other injury. She is taking aspirin and clopidogrel, off apixaban. hasn't heard back from cardiology they increased methadone from 70mg to 90mg because it was wearing off. She doesn't think it is too much, but states she is super tired she was using stimulants but has been off for a couple of weeks. states she has been very tired. balance feels off, but not all the time. fell at night a couple weeks ago. PLACIDO Keller - [facility]. 08/04/2023 17:31:44 09/20/2023 text/html HPI Notes: Lolis chandler presents to [facility] today to establish care with a new provider. She presents with [facility] case management assistant today. Complex medical history to include history of atrial septal defect, prior CVA, on long-term antiplatelet therapy, history of opioid and cocaine abuse, prediabetes, chronic pain. Ghada recently met with our case management assistant here at the clinic as well -reviewed care goals to include stable housing, continued support for sobriety, continue treatment for mental health. Tentative plan to start intensive outpatient treatment next week, and to establish with [facility] for ongoing substance abuse support and behavioral health treatment. Temporary stable housing? currently staying at the local senior care. Continued challenges with daytime fatigue and snoring at night. SYDNIE MARTEL, [employer]EL[employer] [address], [place], [address], [facility], [facility]. 09/22/2023 08:51:09 OBGyn Episode No OBEpisode recorded.
--- OUTSIDE RECORDS SUMMARY | 2023-12-27 19:51 | XMS_ITS | Encounter Summary ---
Author Organization [facility] Address [address] [place] [address] Care Team Providers Care Head Waiter Name Role Phone Frances Sorensen MONICA Primary Care Provider [phone] Encounter Details Date Type Department Care Team (Late st Contact Info) Description 07/24/2020 13:30 EDT Phlebotomy Only [facility] 2 Phlebotomy [address] [place] [address] [employer] Phlebotomy Inflammatory arthritis; Chronic fatigue; Screening for viral disease Social History Tobacco Use Types Packs/Day Years [...] Diagnosis Comments HCV RNA DETECT QUANT Today 07/24/2020 13:47 EDT Screening for viral disease SS-B (LA) ANTIBODY, IGG Routine 07/24/2020 13:47 EDT Inflammatory arthritis ZZHN SSA ANTIBODIES BY RICO Routine 07/24/2020 13:47 EDT Inflammatory arthritis SM (WISDOM) ANTIBODY, IGG Routine 07/24/2020 13:47 EDT Inflammatory arthritis CCP ANTIBODIES Routine 07/24/2020 13:47 EDT Inflammatory arthritis HEPATITIS C AB W REFLEX TO HCV RNA BY PCR Routine 07/24/2020 13:47 EDT Screening for viral disease RECREATION TEACHER ANTIBODY, IGG Routine 07/24/2020 13: 47 EDT Inflammatory arthritis DOUBLE STRANDED DNA ANTIBODY, IGG Routine 07/24/2020 13:47 EDT Inflammatory arthritis HEPATITIS B CORE ANTIBODY (TOTAL) Routine 07/24/2020 13:47 EDT Screening for viral disease IGA Routine 07/24/2020 13:47 EDT Inflammatory arthritis HEPATITIS B SURFACE ANTIGEN Routine 07/24/2020 13:47 EDT Screening for viral disease SED RATE Routine 07/24/2020 13:47 EDT Inflammatory arthritis COMPLETE BLOOD COUNT AND DIFFERENTIAL Routine 07/24/2020 13:47 EDT Inflammatory arthritis RHEUMATOID FACTOR Routine 07/24/2020 13: 47 EDT Inflammatory arthritis C3 COMPLEMENT Routine 07/24/2020 13:47 EDT Inflammatory arthritis C4 COMPLEMENT Routine 07/24/2020 13:47 EDT Inflammatory arthritis C REACTIVE PROTEIN Routine 07/24/2020 13 :47 EDT Inflammatory arthritis ANTI NUCLEAR AB (ALFREDO), IFA Routine 07/24/2020 13:47 EDT Inflammatory arthritis TSH Routine 07/24/2020 13:47 EDT Chronic fatigue IGM Routine 07/24/2020 13:47 EDT Inflammatory arthritis IGG Routine 07/24/2020 13:47 EDT Inflammatory arthritis COMPREHENSIVE METABOLIC PANEL (CMP) Routine 07/24/2020 13:47 EDT Inflammatory arthritis documented in this encounter Results * (ABNORMAL) HCV RNA DETECT QUANT (07/24/2020 13:47 EDT) [facility] HCV RNA Qualitative Detected( A) Undetected 07/29/2020 15:12 EDT [facility] HCV RNA Quantitative 223,723(H ) Undetected IU/mL 07/29/2020 15:12 EDT [facility] Blood VENOUS BLOOD / Unknown Venipuncture / Unknown 07/24/2020 13:47 EDT 07/24/2020 14:27 EDT Narrative [facility] - 07/29/2020 15:12 EDT The quantification range of this assay is 15 IU/mL to 100,000,000 IU/mL. ??Testing was performed on the BRANDAN Ampliprep/BRANDAN TaqMan HCV v2.0 ([employer] Jonnathan Villalobos MD CHEMISTRY & BLOOD GA S ORDERABLES [facility] [address] [place] [address] * HEPATITIS B SURFACE ANTIGEN (07/24/2020 13:47 EDT) [facility] Hep B Surface Ag Negative Negative 07/27/2020 9:44 EDT [facility] Blood VENOUS BLOOD / Unknown Venipuncture / Unknown 07/24/2020 13:47 EDT 07/24/2020 14:28 EDT Jonnathan Villalobos MD CHEMISTRY & BLOOD GA S ORDERABLES Performing Organization Address [facility] Co de Phone Number [facility] [address] [place] [address] * HEPATITIS B CORE ANTIBODY (TOTAL) (07/24/2020 13:47 EDT) Pathologist [facility] Hepatitis B Core Ab, Total Negative Negative 07/27/2020 10:00 EDT [facility] Blood VENOUS BLOOD / Unknown Venipuncture / Unknown 07/24/2020 13:47 EDT 07/24/2020 14:27 EDT Jonnathan Villalobos MD CHEMISTRY & BLOOD GA S ORDERABLES Performing Organization Address [facility] Co de Phone Number [facility] [address] [place] [address] * (ABNORMAL) HEPATITIS C AB W REFLEX TO HCV RNA BY PCR (07/24/2020 13:47 EDT) [facility] Hep C Antibody Reactive(A ) Negative 07/27/2020 11:02 EDT [facility] Comment: Supplemental testing for HCV RNA is ordered to rule out active HCV infection. Blood VENOUS BLOOD / Unknown Venipuncture / Unknown 07/24/2020 13:47 EDT 07/24/2020 14:27 EDT Jonnathan Villalobos MD CHEMISTRY & BLOOD GA S ORDERABLES Performing Organization Address [facility] Co de Phone Number [facility] [address] [place] [address] * (ABNORMAL) COMPREHENSIVE METABOLIC PANEL (CMP) (07/24/2020 13:47 EDT) [facility] Sodium 138 136 - 145 mEq/L 07/24/2020 14:54 [facility] Potassium 4.4 3.5 - 5.0 mEq/L 07/24/2020 14:54 [facility] Chloride 100 96 - 110 mEq/L 07/24/2020 14:54 [facility] CO2 Total 26 22 - 32 mEq/L 07/24/2020 14:54 [facility] Glucose 144(H) 70 - 100 mg/dL 07/24/2020 14:54 [facility] BUN 21 10 - 26 mg/dL 07/24/2020 14:54 [facility] Creatinine 0.62 0.52 - 1.04 mg/dL 07/24/2020 14:54 [facility] eGFR 121 >60 mL/min/1.7 3m2 07/24/2020 14:54 [facility] Comment:eGFR calculated berkley pleitez CKD-EPI equation for non- Americans. Multiply eGFR by 1.16 for patients. Total Protein 7.7 6.3 - 8.2 g/dL 07/24/2020 14:54 [facility] Albumin 3.8 3.4 - 4.9 g/dL 07/24/2020 14:54 [facility] Alkaline Phosphatase 188(H) 38 - 126 U/L 07/24/2020 14:54 [facility] AST 49(H) 15 - 46 U/L 07/24/2020 14:54 [facility] ALT 51(H) <35 U/L 07/24/2020 14:54 [facility] Bilirubin, Total <0.5 <1.4 mg/dL 07/25/19 14:54 [facility] Calcium 8.9 8.5 - 10.5 mg/dL 07/24/2020 14:54 [facility] Calculated Calcium 9.1 8.5 - 10.5 mg/dL 07/24/2020 14:54 [facility] Blood VENOUS BLOOD / Unknown Venipuncture / Unknown 07/24/2020 13:47 EDT 07/24/2020 14:27 EDT Jonnathan Villalobos MD CHEMISTRY & BLOOD GA S ORDERABLES [facility] [address] [place] [address] * (ABNORMAL) COMPLETE BLOOD COUNT AND DIFFERENTIAL (07/24/2020 13:47 EDT) WBC 8.66 4.00 - 12.40 K/cmm 07/24/2020 14:38 [facility] RBC 3.92 3.86 - 5.04 M/cmm 07/24/2020 14:38 [facility] Hemoglobin 10.2(L) 11.6 - 15.2 gm/dL 07/24/2020 14:38 [facility] HCT 32.3(L) 34.9 - 44.4 % 07/24/2020 14:38 [facility] MCV 82 81 - 98 fl 07/24/2020 14:38 [facility] MCH 26.0(L) 26.7 - 33.3 pg 07/24/2020 14:38 [facility] Hypochromia 1+ 07/24/2020 14:38 [facility] MCHC 31.6(L) 32.1 - 35.9 gm/dL 07/24/2020 14:38 [facility] RDW-CV 15.1(H) <14.7 % 07/24/2020 14:38 [facility] RDW-SD 45.1 <50.4 fl 07/24/2020 14:38 [facility] Anisocytosis 07/24/2020 14:38 [facility] PLT 367 141 - 377 K/cmm 07/24/2020 14:38 [facility] MPV 11.2 9.5 - 12.7 fl 07/24/2020 14:38 [facility] % Neutrophils 54.4 % 07/24/2020 14:38 [facility] % Lymphocytes 36.4 % 07/24/2020 14:38 [facility] % Monocytes 6.9 % 07/24/2020 14:38 [facility] % Eosinophils 1.7 % 07/24/2020 14:38 [facility] % Basophils 0.3 % 07/24/2020 14:38 [facility] % Immature Grans 0.3 % 07/25/19 14:38 [facility] Absolute Neutrophils 4.70 2.20 - 8.85 K/cmm 07/24/2020 14:38 [facility] Absolute Lymphocytes 3.15 1.09 - 3.30 K/cmm 07/24/2020 14:38 [facility] Absolute Monocytes 0.60 0.10 - 0.80 K/cmm 07/24/2020 14:38 [facility] Absolute Eosinophils 0.15 0.03 - 0.61 K/cmm 07/24/2020 14:38 [facility] ABS Basophils 0.03 0.01 - 0.11 K/cmm 07/24/2020 14:38 [facility] Absolute Immature Grans 0.03 0.00 - 0.06 K/cmm 07/24/2020 14:38 [facility] Type of Differential: Auto 07/24/2020 14:38 [facility] Blood VENOUS BLOOD / Unknown Venipuncture / Unknown 07/24/2020 13:47 EDT 07/24/2020 14:26 EDT Jonnathan Villalobos MD PACKAGES & DNA PROBE ORDERABLES [facility] [address] [place] [address] * (ABNORMAL) SED. RATE:JOSHUA (07/24/2020 13:47 EDT) Sed Rate 57(H) 0 - 20 mm/hr 07/24/2020 15:22 [facility] Blood VENOUS BLOOD / Unknown Venipuncture / Unknown 07/24/2020 13:47 EDT 07/24/2020 14:26 EDT Jonnathan Villalobos MD HEMATOLOGY & PF4 ORD ERABLES Performing Organization Address City/[facility] Co de Phone Number [facility] [address] [place] [address] * (ABNORMAL) C REACTIVE PROTEIN (07/24/2020 13:47 EDT) C-Reactive Protein 21.8(H) <10.0 mg/L 07/24/2020 14:55 EDT [facility] Blood VENOUS BLOOD / Unknown Venipuncture / Unknown 07/24/2020 13:47 EDT 07/24/2020 14:27 EDT Jonnathan Villalobos MD CHEMISTRY & BLOOD GA S ORDERABLES Performing Organization Address [facility]/ZIP Co de Phone Number [facility] [address] [place] [address] * CCP ANTIBODIES (07/24/2020 13:47 EDT) Pathologist [facility] CCP Antibodies <2.5 <5.0 U/mL 07/27/2020 8:25 EDT [facility] Blood VENOUS BLOOD / Unknown Venipuncture / Unknown 07/24/2020 13:47 EDT 07/24/2020 14:27 EDT Jonnathan Villalobos MD IMMUNOLOGY AND SEROL OGY ORDERABLES Performing Organization Address City/[facility] Co de Phone Number [facility] [address] [place] [address] * RHEUMATOID FACTOR (07/24/2020 13:47 EDT) Rheumatoid Factor <8.6 <12.0 IU/mL 07/24/2020 14:55 EDT [facility] Blood VENOUS BLOOD / Unknown Venipuncture / Unknown 07/24/2020 13:47 EDT 07/24/2020 14:27 EDT Jonnathan Villalobos MD CHEMISTRY & BLOOD GA S ORDERABLES Performing Organization Address City/[facility]/ZIP Co de Phone Number [facility] [address] [place] [address] * (ABNORMAL) TSH (07/24/2020 13:47 EDT) Pathologist [facility] TSH 0.30(L) 0.47 - 4.68 uIU/mL 07/24/2020 15:37 EDT [facility] Blood VENOUS BLOOD / Unknown Venipuncture / Unknown 07/24/2020 13:47 EDT 07/24/2020 14:27 EDT Narrative [facility] - 07/24/2020 15:37 EDT The results of this assay can be falsely lowered due to the consumption of Biotin. Jonnathan Villalobos MD CHEMISTRY & BLOOD GA S ORDERABLES Performing Organization Address City/[facility]/ZIP Co de Phone Number [facility] [address] [place] [address] * IGG (07/24/2020 13:47 EDT) Pathologist [facility] IgG 1,521 610-1,616 mg/dL 07/27/2020 10:16 EDT [facility] Blood VENOUS BLOOD / Unknown Venipuncture / Unknown 07/24/2020 13:47 EDT 07/24/2020 14:27 EDT Jonnathan Villalobos MD CHEMISTRY & BLOOD GA S ORDERABLES Performing Organization Address City/[facility] Co de Phone Number [facility] [address] [place] [address] * (ABNORMAL) IGM (07/24/2020 13:47 EDT) Pathologist [facility] IgM 391(H) 35 - 242 mg/dL 07/27/2020 10:16 EDT [facility] Blood VENOUS BLOOD / Unknown Venipuncture / Unknown 07/24/2020 13:47 EDT 07/24/2020 14:27 EDT Jonnathan Villalobos MD CHEMISTRY & BLOOD GA S ORDERABLES Performing Organization Address City/[facility]/ZIP Co de Phone Number [facility] [address] [place] [address] * IGA (07/24/2020 13:47 EDT) IgA 333 85 - 499 mg/dL 07/27/2020 10:16 EDT [facility] Blood VENOUS BLOOD / Unknown Venipuncture / Unknown 07/24/2020 13:47 EDT 07/24/2020 14:27 EDT Jonnathan Villalobos MD CHEMISTRY & BLOOD GA S ORDERABLES Performing Organization Address [facility] Co de Phone Number [facility] [address] [place] [address] * C4 COMPLEMENT (07/24/2020 13:47 EDT) C4 Complement 37 13 - 39 mg/dL 07/27/2020 10:16 EDT [facility] Blood VENOUS BLOOD / Unknown Venipuncture / Unknown 07/24/2020 13:47 EDT 07/24/2020 14:27 EDT Jonnathan Villalobos MD CHEMISTRY & BLOOD GA S ORDERABLES Performing Organization Address City/[facility] Co de Phone Number [facility] [address] [place] [address] * (ABNORMAL) C3 COMPLEMENT (07/24/2020 13:47 EDT) C3 Complement 167(H) 81 - 157 mg/dL 07/27/2020 10:16 EDT [facility] Blood VENOUS BLOOD / Unknown Venipuncture / Unknown 07/24/2020 13:47 EDT 07/24/2020 14:27 EDT Jonnathan Villalobos MD CHEMISTRY & BLOOD GA S ORDERABLES Performing Organization Address [facility] Co de Phone Number [facility] [address] [place] [address] * SSB ANTIBODIES BY RICO (07/24/2020 13:47 EDT) SSB Antibody 1.8 <20.0 Units 07/28/2020 12:47 EDT [facility] Comment: ? Negative: <20.0 Units ? Weak Positive: 20.0 - 39.9 Units ? Moderate Positive: 40.0 - 80.0 Units ? Strong Positive: >80.0 Units Results were obtained with the [employer]ite SS-B RICO. ??SS-B values obtained with different manufacturers' assay methods may not be used interchangeably. ??The magnitude of the reported IgG levels cannot be correlated to an endpoint titer. Blood VENOUS BLOOD / Unknown Venipuncture / Unknown 07/24/2020 13:47 EDT 07/24/2020 14:27 EDT Jonnathan Villalobos MD IMMUNOLOGY AND SEROL OGY ORDERABLES Performing Organization Address [facility] Co de Phone Number [facility] [address] [place] [address] * SSA ANTIBODIES BY RICO (07/24/2020 13:47 EDT) SSA Antibody 6.9 <20.0 Units 07/28/2020 13:25 EDT [facility] Comment: ? Negative: <20.0 Units ? Weak Positive: 20.0 - 39.9 Units ? Moderate Positive: 40.0 - 80.0 Units ? Strong Positive: >80.0 Units Results were obtained with the [employer] QUANT[employer] Lite SS-A RICO. ??SS-A values obtained with different manufacturers' assay methods may not be used interchangeably. ??The magnitude of the reported IgG levels cannot be correlated to an endpoint titer. Blood VENOUS BLOOD / Unknown Venipuncture / Unknown 07/24/2020 13:47 EDT 07/24/2020 14:27 EDT Jonnathan Villalobos MD IMMUNOLOGY AND SEROL OGY ORDERABLES Performing Organization Address [facility] de Phone Number [facility] [address] [place] [address] * RECREATION TEACHER ANTIBODIES BY RICO (07/24/2020 13:47 EDT) RECREATION TEACHER Antibody 2.1 <20.0 Units 07/28/2020 15:05 EDT [facility] Comment: ? Negative: <20.0 Units ? Weak Positive: 20.0 - 39.9 Units ? Moderate Positive: 40.0 - 80.0 Units ? Strong Positive: >80.0 Units Results were obtained with the [employer] Quanta Lite RECREATION TEACHER RICO. RECREATION TEACHER values obtained with different pillowcase cleaner's assay methods may not be used interchangeaby. ??The magnitude of the reported IgG levels cannot be be correlated to an endpoint titer. A positive result in the Quanta Lite RECREATION TEACHER RICO indicates the presence of antibodies reactive with the RECREATION TEACHER/Sm complex but cannot distinguish between anti-Sm and anti-RECREATION TEACHER activity. Blood VENOUS BLOOD / Unknown Venipuncture / Unknown 07/24/2020 13:47 EDT 07/24/2020 14:28 EDT Jonnathan Villalobos MD IMMUNOLOGY AND SEROL OGY ORDERABLES Performing Organization Address [facility] de Phone Number [facility] [address] [place] [address] * SM (WISDOM) ANTIBODY (07/24/2020 13:47 EDT) SM (Wisdom) Antibody 2.1 <20.0 Units 07/28/2020 15:03 EDT [facility] Comment: ? Negative: <20.0 Units ? Weak Positive: 20.0 - 39.9 Units ? Moderate Positive: 40.0 - 80.0 Units ? Strong Positive: >80.0 Units Results were obtained with the [employer] QUANT[employer] Lite Sm RICO. ??Sm values obtained with different manufacturers' assay methods may not be used interchangeably. ??The magnitude of the reported IgG levels cannot be correlated to an endpoint titer. Blood VENOUS BLOOD / Unknown Venipuncture / Unknown 07/24/2020 13:47 EDT 07/24/2020 14:27 EDT Jonnathan Villalobos MD IMMUNOLOGY AND SEROL JONEL ORDERABLES Performing Organization Address [facility] de Phone Number [facility] [address] [place] [address] * ANTI DNA (DOUBLE STRANDED) (07/24/2020 13:47 EDT) Anti-DNA (Double Stranded) <12.3 <30.0 IU/mL 07/28/2020 13:30 EDT [facility] Comment: ? Negative: ??<30.0 IU/mL ? Borderline Positive: ??30.0 - 75.0 IU/mL ? Positive: ??>75.0 IU/mL Results were obtained with the [employer] QUANTA Lite dsDNA SC RICO assay on the [employer]. Blood VENOUS BLOOD / Unknown Venipuncture / Unknown 07/24/2020 13:47 EDT 07/24/2020 14:28 EDT Jonnathan Villalobos MD IMMUNOLOGY AND SEROL JONEL ORDERABLES Performing Organization Address [facility] de Phone Number [facility] [address] [place] [address] * ANTI NUCLEAR AB (ALFREDO), IFA (07/24/2020 13:47 EDT) ALFREDO Interpretation Negative Negative 2020 14:34 EDT [facility] Comment:No titer performed, ALFREDO Screen is negative. Blood VENOUS BLOOD / Unknown Venipuncture / Unknown 07/24/2020 13:47 EDT 07/24/2020 14:28 EDT Narrative [facility] - 07/27/2020 14:34 EDT Results were obtained with the [employer] NOVA Lite HEp-2 ALFREDO Kit by indirect immunofluorescence. Jonnathan Villalobos MD IMMUNOLOGY AND SERLORELEI REMY ORDERABLES [facility] [address] [place] [address] documented in this encounter Visit Diagnoses Diagnosis Inflammatory arthritis Unspecified inflammatory polyarthropathy Chronic fatigue Other malaise and fatigue Screening for viral disease Special screening examination for unspecified viral disease documented in this encounter Care Teams Head Waiter Relationship Specialty Start Date End Date Frances Sorensen FNP [address] [facility] [address] [place] [phone] PCP - General 06/04/20 documented as of this encounter
--- OUTSIDE RECORDS SUMMARY | 2023-12-27 19:51 | XMS_ITS | Encounter Summary ---
Author Organization [facility] Address [address] [place] [address] Care Team Providers Care Weft Straightener Name Role Phone EduFrances MONICA Primary Care Provider [phone] Encounter Details Date Type Department Care Team (Late st Contact Info) Description 11/05/2020 Lab Requisition [facility] Pathology & Laboratory Medicine - [address] [address] Outr Resulting Lab, Provider Social History Tobacco [...] 1/2 ANTIGEN AND ANTIBODY, 4TH GENERATION Routine 11/05/2020 11:36 EDT documented in this encounter Results * HIV 1/2 ANTIGEN AND ANTIBODY, 4TH GENERATION (11/05/2020 11:36 EDT) HIV 1 and 2 Antibody/p24 Antigen, 4th Generation Negative Negative 11/06/2020 9:23 EDT [facility] Comment: If acute HIV-1 infection is suspected in a high risk ??patient, submit plasma specimen for HIV-1 RNA quantitation test. Fourth Generation assay performed on the [employer]. Blood VENOUS BLOOD / Unknown 11/05/2020 11:36 EDT 11/05/2020 16:12 EDT Provider Outr Resulting Lab IMMUNOLOGY A ND SEROLOGY ORDERABLES Performing Organization Address City/State/[facility] Co de Phone Number [facility] [address] [place] [address] documented in this encounter Visit Diagnoses Not on filedocumented in this encounter Additional Health Concerns Infection Onset Date Last Indicated Resolved Time COVID-19 02/23/2021 02/23/2021 03/15/2021 22:1 5 EST documented as of this encounter Care Teams Weft Straightener Relationship Specialty Start Date End Date Frances Sorensen FNP [address] [place] [address] [address] [place] [id number] PCP - General 06/04/20 documented as of this encounter
--- OUTSIDE RECORDS SUMMARY | 2023-12-27 19:51 | XMS_ITS | Encounter Summary ---
Author Organization [facility] Address [address] [place] [address] Care Team Providers Care Book Sewer Name Role Phone Frances Sorensen MONICA Primary Care Provider [phone] Encounter Details Date Type Department Care Team (Late st Contact Info) Description 08/21/2020 Lab Requisition [facility] Pathology & Laboratory Medicine - [address] [address] Outr Resulting Lab, Provider Social History Tobacco [...] Priority Date/Time Associated Diagnosis Comments ZZCOVID-19 TEST [facility] PCR Today 08/20/2020 14:00 EDT COVID-19 TESTING Routine 08/20/2020 14:0 0 EDT documented in this encounter Results * COVID-19 TEST [facility] PCR (08/20/2020 14:00 EDT) Swab ENTIRE NASOPHARYNX / Unknown 08/20/2020 14:00 EDT 08/21/2020 15:37 EDT Provider Outr Resulting Lab MICROBIOLOGY - GENERAL ORDERABLES [facility] [address] [place] [address] * COVID-19 TESTING (08/20/2020 14:00 EDT) COVID-19 rt-PCR Result Negative Negative 08/22/2020 10:59 EDT [facility] Comment: This test has [...] was performed using the pretty SARS-CoV-2 assay ([employer] on the Pretty [employer] System Performing Lab Pretty [address] [facility] 08/22/2020 10:59 EDT [facility] Swab 08/20/2020 14:0 0 EDT 08/21/2020 15:37 EDT Provider Outr Resulting Lab MICROBIOLOGY - GENERAL ORDERABLES [facility] [address] [place] [address] documented in this encounter Visit Diagnoses Not on filedocumented in this encounter Additional Health Concerns Infection Onset Date Last Indicated Resolved Time COVID-19 02/23/2021 02/23/2021 03/15/2021 22:1 5 EST documented as of this encounter Care Teams Book Sewer Relationship Specialty Start Date End Date Frances Sorensen FNP [address] [place] [phone] PCP - General 06/04/20 documented as of this encounter
--- OUTSIDE RECORDS SUMMARY | 2023-12-27 19:51 | XMS_ITS | Encounter Summary ---
Author Organization [facility] Address [address] [place] [address] Care Team Providers Care Ethyl Blender Name Role Phone Frances Sorensen MONICA Primary Care Provider [phone] Reason for Visit * Reason Onset Date Comments DME 07/27/2020 Encounter Details Date Type Department Care Team (Late st Contact Info) Description 07/27/2020 Telephone [facility] Rheumatology & Immunology - [address] [address] Lyla Rendon, ROBERT DME Social History Tobacco Use Types Packs/Day Years [...] encounter Miscellaneous Notes * Telephone Encounter - Lyla Rendon RN - 07/27/2020 1135 EDT Mailed pt orders for bilateral wrist splints and compressions arthritis gloves. documented in this encounter Plan of Treatment Not on file documented as of this encounter Visit Diagnoses Not on filedocumented in this encounter Care Teams Ethyl Blender Relationship Specialty Start Date End Date Frances Sorensen FNP [address] [place] [phone] PCP - General 06/04/20 documented as of this encounter
--- OUTSIDE RECORDS SUMMARY | 2023-12-27 19:51 | XMS_ITS | Encounter Summary ---
Author Organization [facility] Address [address] [place] [address] Care Team Providers Care Gospel Singer Name Role Phone Frances Sorensen MONICA Primary Care Provider [phone] Reason for Referral * Radiology Services (Routine) - Closed Specialty Diagnoses / Procedures Referred By Lang sanches Referred To Contact Diagnoses Inflammatory arthritis Procedures XR HAND LEFT 1-2 VIEWS Jonnathan Villalobos MD [address] [place] [phone] Referral ID Status Reason Start Date Expiration Date Visits Re quested Visits Authorized [id number] Closed 07/24/2020 1 1 Reason for Visit * Radiology Services (Routine) - Closed Specialty Diagnoses / Procedures Referred By Lang sanches Referred To Contact Diagnoses Inflammatory arthritis Procedures XR HAND LEFT 1-2 VIEWS Jonnathan Villalobos MD [address] [place] [phone] Referral ID Status Reason Start Date Expiration Date Visits Re quested Visits Authorized [id number] Closed 07/24/2020 1 1 Encounter Details Date Type Department Care Team (Latest Contact Info) Description 07/24/2020 13:01 EDT - 07/24/2020 23:59 EDT Hospital [facility] [place] [place] [address] Inflammatory arthritis Discharge Disposition: Home or Self Care Social [...] BISACODYL, ORAL Take by mouth as needed. esomeprazole (NEXIUM) 40 mg capsule Take 40 [...] (MIRALAX ORAL) Take by mouth as needed. pregabalin (LYRICA) 150 mg capsule Take 150 [...] Name Priority Date/Time Associated Diagnosis Comments XR HAND LEFT 1-2 VIEWS Routine 07/24/2020 13:09 EDT Inflammatory arthritis documented in this encounter Results * XR HAND LEFT 1-2 VIEWS (07/24/2020 [...] Diagnoses Diagnosis Inflammatory arthritis Unspecified inflammatory polyarthropathy documented in this encounter Care Teams Gospel Singer Relationship Specialty Start Date End Date Frances Sorensen FNP [address] [place] [address] [address] [place] [phone] PCP - General 06/04/20 documented as of this encounter
--- OUTSIDE RECORDS SUMMARY | 2023-12-27 19:51 | XMS_ITS | Encounter Summary ---
Author Organization [facility] Address [address] [place] [address] Care Team Providers Care Consumer Experience Consultant Name Role Phone Unknown, Provider Primary Care Provider [phone] Encounter Details Date Type Department Care Team (Late st Contact Info) Description 02/22/2012 Results Only [facility] [phone] Saira Caldwell, JOB SERVICE SPECIALIST [address] [facility] [address] Social History Tobacco Use Types Packs/Day Years [...] Diagnosis Comments PAP TEST- RESULT ONLY Routine 02/22/2012 0:00 EDT documented in this encounter Results * PAP TEST- RESULT ONLY (02/22/2012 0:00 EDT) Pathology Report: CYTOPATHOLOGY REPORT Reports generated via electronic interface contain original data; however they are lacking the format of the original report. Caution should be taken when reading/interpreti ng unformatted reports. Name: ? GHADA MOORE ? Accession #: ? [id number] : ? 1990 (Age: 21) ??F ?Collect Date: ? 02/22/2012 Location: ? [facility] ? Receive Date: ? 02/24/2012 Provider: ?SAIRA CALWDELL JOB SERVICE SPECIALIST Copy to: ? Specimen/Source: ?Pap Test, Cervix/Endocervix, ThinPrep Imaging System with manual evaluation Last Menstrual Period: ? Menstrual/Pregnanc y Status: ? SPECIMEN ADEQUACY ? Satisfactory for Evaluation - transformation zone component present GENERAL CATEGORIZATION ? Negative for Intraepithelial Lesion or Malignancy INTERPRETATION ? Shift in melquiades present suggestive of bacterial vaginosis. ? Document reviewed and electronically signed by: ? AMILCAR Leblanc(ASCP) ? Report Date: ??03/01/2012 09:43 End of Report NAVID FISHER 02/22/2012 02/24/2012 Saira Caldwell JOB SERVICE SPECIALIST PATHOLOGY ORDERABLES Performing Organization Address City/State/[facility] Co de Phone Number NAVID FISHER [address] [place] [address] documented in this encounter Visit Diagnoses Not on filedocumented in this encounter Care Teams Consumer Experience Consultant Relationship Specialty Start Date End Date Unknown, Provider, PCP - General 03/11/11 06/03/20 documented as of this encounter
--- OUTSIDE RECORDS SUMMARY | 2023-12-27 19:51 | XMS_ITS | Encounter Summary ---
Author Organization [facility] Address [address] [place] [address] Care Team Providers Care Frame Tender Name Role Phone Unknown, Provider Primary Care Provider [phone] Frances Sorensen Primary Care Provider [phone] Encounter Details Date Type Department Care Team (Late st Contact Info) Description 04/13/2020 Lab Requisition [facility] Pathology & Laboratory Medicine - [address] [address] Outr Resulting Lab, Provider Social History Tobacco [...] Comments ZZCOVID-19 TEST [facility] PCR Today 04/13/2020 0:20 EST COVID-19 TESTING Routine 04/13/2020 0:20 EST documented in this encounter Results * COVID-19 TEST [facility] PCR (04/13/2020 0:20 EST) Swab ENTIRE NASOPHARYNX / Unknown 04/13/2020 0:20 EST 04/13/2020 16:11 EST Provider Outr Resulting Lab MICROBIOLOGY - GENERAL ORDERABLES Performing Organization Address [facility] Co de Phone Number [facility] [address] [place] [address] * COVID-19 TESTING (04/13/2020 0:20 EST) COVID-19 rt-PCR Result Negative Negative 04/14/2020 18:55 EST [facility] Comment: Negative results do not preclude 2019-nCoV infection and should not be used as the sole basis for treatment or other patient management decisions. Negative results must be combined with clinical observations, patient history, and epidemiological information. This test was developed and its performance characteristics determined by [facility]. It has not been cleared or approved by the US Food and Drug Administration. FDA does not require this test to go through premarket FDA review. This test is used for clinical purposes. It should not be regarded as investigational or for research. This laboratory is certified under the Clinical Laboratory Improvement Amendments (CLIA) as qualified to perform high complexity clinical laboratory testing. This test is based on the CDC COVID-19 Emergency Use Authorization (EUA) assay, with minor modification as defined by the FDA Performed on the Shomo[employer] 7 Flex. Performing Lab Quantstudio 7 [facility] 04/14/2020 18:55 EST [facility] Swab 04/13/2020 0:20 EST 04/13/2020 16:11 EST Provider Outr Resulting Lab MICROBIOLOGY - GENERAL ORDERABLES Performing Organization Address [facility] Co de Phone Number [facility] [address] [place] [address] documented in this encounter Visit Diagnoses Not on filedocumented in this encounter Additional Health Concerns Infection Onset Date Last Indicated Resolved Time COVID-19 02/23/2021 02/23/2021 03/15/2021 22:1 5 EST documented as of this encounter Care Teams Frame Tender Relationship Specialty Start Date End Date Unknown, Provider, PCP - General 03/11/11 06/03/20 Frances Sorensen FNP [address] [place] [phone] PCP - General 06/04/20 documented as of this encounter
--- OUTSIDE RECORDS SUMMARY | 2023-12-27 19:51 | XMS_ITS | Encounter Summary ---
Author Organization [facility] Address [address] [place] [address] Care Team Providers Care Php Mysql Web Developer Name Role Phone Unknown, Provider Primary Care Provider [phone] Encounter Details Date Type Department Care Team (Late st Contact Info) Description 09/05/2018 Results Only Imaging [facility] [phone] Unknown, Provider, Social History Tobacco Use Types Packs/Day Years Used Date Smoking Tobacco: Never Assessed Sex and Gender Information Value Date Recorded Sex Assigned at Not on file Gender Identity Female 06/04/2020 14:16 EST Sexual Orientation Not on file documented as of this encounter Plan of Treatment Pending Results Name Type Priority Associated Diagnoses Date /Time OUTSIDE IMAGES - MR NEURO Imaging 09/05/2018 6:32 EDT documented as of this encounter Visit Diagnoses Not on filedocumented in this encounter Care Teams Php Mysql Web Developer Relationship Specialty Start Date End Date Unknown, Provider, PCP - General 03/11/11 06/03/20 documented as of this encounter
--- OUTSIDE RECORDS SUMMARY | 2023-12-27 19:51 | XMS_ITS | Encounter Summary ---
Author Organization [facility] Address [address] [place] [address] Care Team Providers Care Ledger Poster Name Role Phone Unknown, Provider Primary Care Provider Encounter Details Date Type Department Care Team (Latest Contact Info) Description 05/20/2014 14:48 EST - 05/20/2014 23:59 EST Hospital Encounter [address] [address] Unknown, Provider, Discharge Disposition: Home or Self Care Social History Tobacco Use Types Packs/Day Years Used Date Smoking Tobacco: Never Assessed Sex and Gender Information Value Date Recorded Sex Assigned at Not on file Gender Identity Female 06/04/2020 14:16 EST Sexual Orientation Not on file documented as of this encounter Discharge Disposition Disposition Code Departure Means Destination Home or Self [facility] documented in this encounter Plan of Treatment Not on file documented as of this encounter Visit Diagnoses Not on filedocumented in this encounter Care Teams Ledger Poster Relationship Specialty Start Date End Date Unknown, Provider, PCP - General 03/11/11 06/03/20 documented as of this encounter
--- OUTSIDE RECORDS SUMMARY | 2023-12-27 19:51 | XMS_ITS | Encounter Summary ---
Author Organization [facility] Address [address] [place] [address] Care Team Providers Care Bar Hostess Name Role Phone Unknown, Provider Primary Care Provider Frances Sorensen Primary Care Provider [phone] Encounter Details Date Type Department Care Team (Late st Contact Info) Description 05/20/[address] [facility] Pathology & Laboratory Medicine - [address] [address] Outr Resulting Lab, Provider Social History Tobacco [...] Procedure Name Priority Date/Time Associated Diagnosis Comments CHLAMYDIA/N. GONORRHOEAE AMPLIFIED NUCLEIC ACID, THINPREP Routine 05/19/2020 15:00 EST documented in this encounter Results * CHLAMYDIA/N. GONORRHOEAE AMPLIFIED RNA, THINPREP (05/19/2020 15:00 EST) Neisseria gonorrhoeae Result Negative Negative 05/21/2020 15:38 EST [facility] Chlamydia trachomatis Result Negative Negative 05/21/2020 15:38 EST [facility] Papanicolaou smear specimen (specimen) CERVIX UTERI STRUCTURE / Unknown 05/19/2020 15:00 EST 05/21/2020 7:57 EST Provider Outr Resulting Lab MICROBIOLOGY - GENERAL ORDERABLES [facility] [address] [place] [address] documented in this encounter Visit Diagnoses Not on filedocumented in this encounter Additional Health Concerns Infection Onset Date Last Indicated Resolved Time COVID-19 02/23/2021 02/23/2021 03/15/2021 22:1 5 EST documented as of this encounter Care Teams Bar Hostess Relationship Specialty Start Date End Date Unknown, Provider, PCP - General 03/11/11 06/03/20 Frances Sorensen FNP [address] [facility] [address] [place] [phone] PCP - General 06/04/20 documented as of this encounter
--- OUTSIDE RECORDS SUMMARY | 2023-12-27 19:51 | XMS_ITS | Encounter Summary ---
Author Organization [facility] Address [address] [place] [address] Care Team Providers Care Flavor Tank Tender Name Role Phone Frances Sorensen MONICA Primary Care Provider [phone] Reason for Referral * Radiology Services (Routine) - Closed Specialty Diagnoses / Procedures Referred By Lang sanches Referred To Contact Diagnoses Inflammatory arthritis Procedures XR HAND RIGHT 1-2 VIEWS Jonnathan Villalobos MD [address] [place] [phone] Referral ID Status Reason Start Date Expiration Date Visits Re quested Visits Authorized [id number] Closed 07/24/2020 1 1 Reason for Visit * Radiology Services (Routine) - Closed Specialty Diagnoses / Procedures Referred By Lang sanches Referred To Contact Diagnoses Inflammatory arthritis Procedures XR HAND RIGHT 1-2 VIEWS Jonnathan Villalobos MD [address] [place] [phone] Referral ID Status Reason Start Date Expiration Date Visits Re quested Visits Authorized [id number] Closed 07/24/2020 1 1 Encounter Details Date Type Department Care Team (Latest Contact Info) Description 07/24/2020 13:01 EDT - 07/24/2020 23:59 EDT Hospital Encounter [facility] Radiology [place] [address] Inflammatory arthritis Discharge Disposition: Home or Self [...] Priority Date/Time Associated Diagnosis Comments XR HAND RIGHT 1-2 VIEWS Routine 07/24/2020 13:09 EDT Inflammatory arthritis documented in this encounter Results * XR HAND RIGHT 1-2 VIEWS (07/24/2020 [...] polyarthropathy documented in this encounter Care Teams Flavor Tank Tender Relationship Specialty Start Date End Date Frances Sorensen FNP [address] [place] [address] [address] [place] [phone] PCP - General 06/04/20 documented as of this encounter
--- OUTSIDE RECORDS SUMMARY | 2023-12-27 19:51 | XMS_ITS | Encounter Summary ---
Author Organization [facility] Address [address] [place] [address] Care Team Providers Care Cigar Tobacco Rehandler Name Role Phone Frances Sorensen Primary Care Provider [phone] Encounter Details Date Type Department Care Team (Latest Contact Info) Description 07/24/2020 Travel Social History Tobacco Use Types Packs/Day [...] on filedocumented in this encounter Care Teams Cigar Tobacco Rehandler Relationship Specialty Start Date End Date Frances Sorensen FNP [address] [phone] PCP - General 06/04/20 documented as of this encounter
--- OUTSIDE RECORDS SUMMARY | 2023-12-27 19:51 | XMS_ITS | Encounter Summary ---
Author Organization [facility] Address [address] [place] [address] Care Team Providers Care Functional Support Analyst Name Role Phone Unknown, Provider Primary Care Provider Frances Sorensen Primary Care Provider [phone] Encounter Details Date Type Department Care Team (Late st Contact Info) Description 04/06/2020 Lab Requisition [facility] Pathology & Laboratory Medicine - [address] [address] Outr Resulting Lab, Provider Social History Tobacco [...] Comments ZZCOVID-19 TEST [facility] PCR Today 04/06/2020 11:22 EST COVID-19 TESTING Routine 04/06/2020 11:2 2 EST documented in this encounter Results * COVID-19 TEST [facility] PCR (04/06/2020 11:22 EST) Swab ENTIRE NASOPHARYNX / Unknown 04/06/2020 11:22 EST 04/06/2020 15:36 EST Provider Outr Resulting Lab MICROBIOLOGY - GENERAL ORDERABLES Performing Organization Address City/[facility] Co de Phone Number [facility] [address] [place] [address] * COVID-19 TESTING (04/06/2020 11:22 EST) COVID-19 rt-PCR Result Negative Negative 04/07/2020 17:25 EST [facility] Comment: Negative results do not preclude 2019-nCoV infection and should not be used as the sole basis for treatment or other patient management decisions. Negative results must be combined with clinical observations, patient history, and epidemiological information. This test was developed and its performance characteristics determined by [facility]. It has not been cleared or approved [...] defined by the FDA Performed on the Colored Solaro 7 Flex. Performing Lab Brozengostudio 7 [facility] 04/07/2020 17:25 EST [facility] Swab 04/06/2020 11:2 2 EST 04/06/2020 15:36 EST Provider Outr Resulting Lab MICROBIOLOGY - GENERAL ORDERABLES Performing Organization Address [facility] Co de Phone Number [facility] [address] [place] [address] documented in this encounter Visit Diagnoses Not on filedocumented in this encounter Additional Health Concerns Infection Onset Date Last Indicated Resolved Time COVID-19 02/23/2021 02/23/2021 03/15/2021 22:1 5 EST documented as of this encounter Care Teams Functional Support Analyst Relationship Specialty Start Date End Date Unknown, Provider, PCP - General 03/11/11 06/03/20 Frances Sorensen FNP [address] [place] [phone] PCP - General 06/04/20 documented as of this encounter
--- OUTSIDE RECORDS SUMMARY | 2023-12-27 19:51 | XMS_ITS | Encounter Summary ---
Author Organization [facility] Address [address] [place] [address] Care Team Providers Care Steamer Operator Name Role Phone EduFrances MONICA Primary Care Provider [phone] Encounter Details Date Type Department Care Team (Late st Contact Info) Description 11/05/2020 Lab Requisition [facility] Pathology & [place] [address] Outr Resulting Lab, Provider Social History Tobacco [...] Procedure Name Priority Date/Time Associated Diagnosis Comments HEPATITIS B CORE ANTIBODY (TOTAL) Routine 11/05/2020 11:36 EDT documented in this encounter Results * HEPATITIS B CORE ANTIBODY (TOTAL) (11/05/2020 11:36 EDT) Hepatitis B Core Ab, Total Negative Negative 11/06/2020 9:06 EDT [facility] Blood VENOUS BLOOD / Unknown 11/05/2020 11:36 EDT 11/05/2020 20:40 EDT Provider Outr Resulting Lab CHEMISTRY & BLOOD GAS ORDERABLES [facility] [address] [place] [address] documented in this encounter Visit Diagnoses Not on filedocumented in this encounter Additional Health Concerns Infection Onset Date Last Indicated Resolved Time COVID-19 02/23/2021 02/23/2021 03/15/2021 22:1 5 EST documented as of this encounter Care Teams Steamer Operator Relationship Specialty Start Date End Date Frances Sorensen FNP [address] [phone] PCP - General 06/04/20 documented as of this encounter
--- NOTE | 2023-12-27 20:09 | ED.GENADUL_ITS ---
Discharge Plan Disposition Patient Disposition: Transfer-Acute Inpatient Care Specific Acute Inpt Facility: [facility] Condition: Critical Discharge Details Clinical Impression: Septic shock, Acute renal failure, Pneumonia, Dehydration Primary Care Provider: SORAIDA ALMEIDA ED Provider: Woody Mo Home Meds and New Rx's Prescriptions: No Action ferrous sulfate 325 mg (65 mg iron) tablet 325 mg PO DAILY Taltz Autoinjector 80 mg/mL auto-injector 80 mg subcut Q4W escitalopram oxalate 10 mg tablet 10 mg PO DAILY aspirin 81 mg tablet,delayed release (DR/EC) 81 mg PO DAILY metoprolol succinate 25 mg tablet extended release 24 hr 50 mg PO BID diclofenac sodium [Voltaren Arthritis Pain] 1 % gel 2 g topical QID Rx Instructions: apply to single elbow, wrist or hand; for hand includes palm/fingers/back of hand albuterol sulfate 90 mcg/actuation HFA aerosol inhaler 2 puff inhalation Q6H PRN lisinopril 5 mg tablet 5 mg PO DAILY methadone 10 mg/5 mL solution 90 mg PO DAILY olanzapine 10 mg tablet 15 mg PO QHS Relistor 150 mg tablet 150 mg PO DAILY sennosides-docusate sodium [Senexon-S] 8.6-50 mg tablet 2 tab-cap PO DAILY clopidogrel [Plavix] 75 mg tablet 75 mg PO DAILY Qty: 60 0RF cyclobenzaprine 5 mg Tablet 5 mg PO BID acetaminophen 500 MG tablet 650 mg PO Q6H epinephrine 0.3 mg/0.3 mL auto-injector 0.3 mg IM ONCE PRN Rx Instructions: as a single dose; may repeat once pregabalin 150 mg capsule 150 mg PO BID Patient Comments: TAKE 1 CAP BY MOUTH TWO TIMES A DAY topiramate [Topamax] 50 mg tablet 50 mg PO BID Qty: 10 0RF HPI General Date/Time Provider Initiated Documentation: 12/27/23 16:48 . HPI Narrative: This is a 33-year-old female with a past medical history of patent mcdaniel ovale, PTSD, hepatitis C, asthma, kidney stone, previous ischemic stroke, previous hemorrhagic stroke, as well as intracranial clots, who is currently on Plavix 75 mg, plaque psoriasis on Ixekizumab, who presents today for evaluation of weakness. Patient states that at 3 AM last night she felt somewhat weak. She did not fall or hit her head, but she lowered herself to the ground secondary to the weakness. Throughout the rest of the day she continued to feel notably weak, she did not eat or drink much. She did not feel well. She does admit to taking some crack cocaine about a week ago, but denies any other drug use. Patient eventually called EMS, when EMS arrived the patient was hypotensive in the 40s to 50s systolic, heart rate was stable. She was a febrile. She is very weak, she was transported to the ER and given 500 cc of normal saline and route. Patient denies any headache or neck pain. She does admit to chest pain that began while driving here. She states that it feels like something heavy is on her chest. She denies fever or chills at home. She denies any dysuria. She denies any other complaints at this time. She denies taking any other new medications. No other modifying factors. Related Data Home Medications ?Medication ?Instructions ?Recorded ?Confirmed cyclobenzaprine 5 mg tablet 5 mg PO BID 07/14/19 10/04/23 clopidogrel 75 mg tablet (Plavix) 75 mg PO DAILY #60 tabs 04/01/21 10/04/23 acetaminophen 500 mg tablet 650 mg PO Q6H 07/28/21 10/04/23 epinephrine 0.3 mg/0.3 mL 0.3 mg IM ONCE PRN 07/28/21 10/04/23 injection, auto-injector pregabalin 150 mg capsule 150 mg PO BID 07/28/21 10/04/23 topiramate 50 mg tablet (Topamax) 50 mg PO BID #10 tabs 07/30/21 10/04/23 ferrous sulfate 325 mg (65 mg 325 mg PO DAILY 04/13/22 10/04/23 iron) tablet ixekizumab 80 mg/mL subcutaneous 80 mg subcut Q4W 01/09/23 10/04/23 auto-injector (Taltz Autoinjector) aspirin 81 mg tablet,delayed 81 mg PO DAILY 02/23/23 10/04/23 release escitalopram oxalate 10 mg tablet 10 mg PO DAILY 02/23/23 10/04/23 metoprolol succinate 25 mg 50 mg PO BID 02/23/23 10/04/23 tablet,extended release 24 hr albuterol sulfate 90 mcg/actuation 2 puff inhalation Q6H PRN 09/27/23 10/04/23 aerosol inhaler diclofenac sodium 1 % topical gel 2 g topical QID 09/27/23 10/04/23 (Voltaren Arthritis Pain) lisinopril 5 mg tablet 5 mg PO DAILY 09/27/23 10/04/23 methadone 10 mg/5 mL oral solution 90 mg PO DAILY 09/27/23 10/04/23 methylnaltrexone 150 mg tablet 150 mg PO DAILY 09/27/23 10/04/23 (Relistor) olanzapine 10 mg tablet 15 mg PO QHS 09/27/23 10/04/23 sennosides 8.6 mg-docusate sodium 2 tab-cap PO DAILY 09/27/23 10/04/23 50 mg tablet (Senexon-S) Previous Rx's ?Medication ?Instructions ?Recorded clopidogrel 75 mg tablet (Plavix) 75 mg PO DAILY #60 tabs 04/01/21 topiramate 50 mg tablet (Topamax) 50 mg PO BID #10 tabs 07/30/21 Allergies Allergy/AdvReac Type Severity Reaction Status Date / Time meperidine HCl (From Demerol) Allergy Severe Anaphylaxsi Verified 12/27/23 16:58 s venom-honey bee (bee venom Allergy Severe anaphylaxis Verified 12/27/23 16:58 (honey bee)) lithium AdvReac Mild NAUSEA Verified 12/27/23 16:58 sertraline HCl (From Zoloft) AdvReac Mild NIGHTMARES Verified 12/27/23 16:58 General Stated Complaint: AMS/LOC KALINA: 2 Review of Systems All systems reviewed & are unremarkable except as noted in HPI and below Exam Narrative Exam Narrative: 1.Const: Well-nourished, Well-developed, appearing stated age 2.Eyes: PERRL, no conjunctival injection, and symmetrical lids. 3.ENT: Atraumatic external nose and ears. Notably dry MM. Neck: Symmetric, trachea midline, No thyromegaly. No neck pain. Negative Kernig's and Brudzinski sign. 4.CVS: +S1/S2, No murmurs or gallops. Peripheral pulses 2+ and equal in all extremities. Brisk capillary refill in all extremities. 5.RESP: Unlabored respiratory effort. Clear to auscultation bilaterally. No wheezes rales or rhonchi 6.GI: Soft, Nontender/Nondistended, No hepatosplenomegaly. No guarding or rebound. 7.MSK: Normocephalic/Atraumatic, global diffuse weakness in all extremities, no focality. Mild tremulousness for the upper and lower extremities. 8.Skin: Warm, Dry. Multiple psoriatic lesions throughout her upper and lower extremities 9.Neuro: metal drawer II-XII grossly intact. Sensation grossly intact, no focal neurologic deficits. Global weakness without focal deficit. Speech is slightly slower than normal. 10.Psych: (AAO) x3. Appropriate mood and affect, however she does appear slightly diminished in her affect compared to normal Course Vital Signs Vital signs: Vital Signs Temperature 36.1 C L 12/27/23 16:40 Pulse 80 12/27/23 16:40 Respiratory Rate 16 12/27/23 16:40 Blood Pressure 90/50 L 12/27/23 16:40 Pulse Oximetry 96 12/27/23 16:40 Temperature 36.1 C L 12/27/23 16:40 Temperature Source Skin 12/27/23 16:40 Pulse 80 12/27/23 16:40 Respiratory Rate 16 12/27/23 16:40 Blood Pressure 90/50 L 12/27/23 16:40 Pulse Oximetry 96 12/27/23 16:40 Oxygen Delivery Method Room Air 12/27/23 16:40 Oxygen Flow Rate 0 12/27/23 16:40 Pain Level 4 12/27/23 16:40 Comment had been on oxygen by ems 12/27/23 16:40 Lab/Test Results Lab/Test Results: 12/27/23 19:32 Blood Blood Culture - Pending 12/27/23 19:39 Blood Blood Culture - Pending Laboratory Tests Range/Units 12/27/23 12/27/23 16:55 17:00 WBC (4.4-10.8) 10^3/uL 14.58 H RBC (3.93-5.22) 10^6/uL 4.22 Hgb (11.2-15.7) g/dL 12.1 Hct (36.0-46.0) % 39.6 MCV (80-95) fL 94 MCH (27.0-33.0) pg 28.7 MCHC (32.0-36.0) % 30.6 L RDW (11.7-14.6) % 14.9 H Plt Count (130-400) 10^3/uL 324 MPV (8.0-11.0) fL 10.3 Immature Gran % % 1.0 Neutrophils % % 84.5 Lymphocytes % % 8.8 Monocytes % % 4.9 Eosinophils % % 0.6 Basophils % % 0.2 Nucleated RBC % (0.0-0.3) % 0.0 Absolute Neutrophils (1.2-6.7) 10^3/uL 12.32 H Absolute Lymphocytes (1.2-3.4) 10^3/uL 1.28 Absolute Monocytes (0.1-0.8) 10^3/uL 0.71 Absolute Eosinophils (0.0-0.7) 10^3/uL 0.09 Absolute Basophils (0.0-0.2) 10^3/uL 0.03 PT (9.1-11.1) sec 10.7 INR (0.9-1.1) 1.1 APTT (23.6-32.8) sec 26.1 VBG pH (7.31-7.41) 7.22 L VBG pCO2 (41-51) mmHg 57 H VBG pO2 mmHg 31 VBG HCO3 (23-28) mmol/L 24 VBG Total CO2 (24-29) mmol/L 23 L VBG O2 Saturation % 50 VBG Base Excess (-2-3) mmol/L -4 L Sodium (136-145) mmol/L 137 Potassium (3.5-5.1) mmol/L 4.6 Chloride (98-107) mmol/L 102 Carbon Dioxide (21.0-32.0) mmol/L 25.3 Anion Gap (3-11) mmol/L 9.7 BUN (7-18) mg/dL 46 H Creatinine (0.55-1.02) mg/dL 5.1 H* Est GFR (CKD-EPI 2020) (mL/min/1.73m2) 10.73 Glucose (74-106) mg/dL 173 H Calcium (8.5-10.1) mg/dL 9.5 Total Bilirubin (0.2-1.0) mg/dL 0.33 AST (15-37) U/L 30 ALT (14-59) U/L 26 Alkaline Phosphatase (46-116) U/L 137 H Troponin I High Sens (< or =60) ng/L < 50 NT-Pro-B Natriuret Pep (<300) pg/mL 124 Total Protein (6.4-8.2) g/dL 8.1 Albumin (3.4-5.0) g/dL 2.8 L TSH (0.36-3.74) uIU/mL 0.77 Procedures Arterial Line Time Out Performed: Yes Size (Gauge): 18 Technique Used: guide wire technique Post-Procedure: line sutured into place and dry sterile dressing placed Patient Tolerated Procedure: well and no complications Complications: none Site: left Additional Comments: Procedure: Arterial Line Indication: Hemodynamic monitoring A time-out was completed verifying correct patient, procedure, site, positioning, and special equipment if applicable. Gonzalo?s test was performed to ensure adequate perfusion. The patient?s left wrist was prepped and draped in sterile fashion. 1% Lidocaine was used to anesthetize the area. The arterial line was introduced into the radial artery. The catheter was threaded over the guide wire and the needle was removed with appropriate pulsatile blood return. The catheter was then sutured in place to the skin and a sterile dressing applied. Perfusion to the extremity distal to the point of catheter insertion was checked and found to be adequate. Estimated Blood Loss: 3ml?s The patient tolerated the procedure well and there were no complications. Central Line Placement Right IJ: Time Out Performed: Yes Patient Placed on Monitor/Pulse Ox: Yes MD Prep: mask, gown and gloves Central Line Prep: Chlorhexidine scrub Local Anesthetic: Lidocaine 1% Amount of anesthesia used (mL): 3 Ultrasound Used for Placement: Yes Central Line Lumen Inserted: triple Post Procedure: good blood return, all ports aspirated, flushed, capped and sutured in place with 2-0 silk Post Procedure X-Ray: tip of catheter in good position Patient Tolerated Procedure: well and no complications Complications: none Medical Decision Making This is a 33-year-old female with a past medical history of patent mcdaniel ovale, PTSD, hepatitis C, asthma, kidney stone, previous ischemic stroke, previous hemorrhagic stroke, as well as intracranial clots, who is currently on Plavix 75 mg, plaque psoriasis on Ixekizumab, who presents today for evaluation of weakness. Patient states that at 3 AM last night she felt so mewhat weak. She did not fall or hit her head, but she lowered herself to the ground secondary to the weakness. Throughout the rest of the day she continued to feel notably weak, she did not eat or drink much. She did not feel well. She does admit to taking some crack cocaine about a week ago, but denies any other drug use. Patient eventually called EMS, when EMS arrived the patient was hypotensive in the 40s to 50s systolic, heart rate was stable. She was afebrile. She is very weak, she was transported to the ER and given 500 cc of normal saline and route. Patient denies any headache or neck pain. She does admit to chest pain that began while driving here. She states that it feels like something heavy is on her chest. She denies fever or chills at home. She denies any dysuria. She denies any other complaints at this time. She denies taking any other new medications. No other modifying factors. Exam demonstrates a hypotensive female, afebrile, no tachycardia. Global we akness, without specific focality. Lungs are relatively clear, no nuchal rigidity or neck stiffness. Patient is frankly hypotensive. Will bolus with an additional liter. Differential is broad but includes PE, less likely brain bleed. Hypotension from dehydration is certainly of concern. Sepsis less likely without fever but does remain on the differential. No calf tenderness, no pitting edema of the lower extremities. Will evaluate for these concerning etiologies monitor closely and reassess. 9:10 PM Laboratory workup has returned, patient has a white count of 14.5, left shift is present, procalcitonin mildly elevated, pending urinalysis still. Thyroid function normal no evidence of myxedema coma. CK is only 500. No evidence of rhabdo. VBG demonstrates a pH of 7.22, pCO2 57, mild respiratory acidosis, however the pH level seems a bit more pronounced with only the mildly elevated pCO2. Concern for potential metabolic component. Anion gap is normal at 9.7. Unexpectedly the patient's BUN is 46 and creatinine is 5.1 which is notably atypical for her, GFR is 10. Concern for acute renal failure, as well as renal tubular acidosis. Will start a bicarb drip to alkalinize the urine. Patient denies salicylate use. Still pending urinalysis at this time. Patient may have had an ischemic component of her kidneys from the crack cocaine that she use, however CT scan was performed and shows no acute process in the brain, no acute process in the abdomen. Chest does show evidence of multiple infiltrate and groundglass infiltrate throughout the left lower lobe as well as in the left upper lobe including the lingular segment concerning for infectious pneumonia. I did discuss this with radiology this does not appear to be consistent with a wedge infarct. Patient is not a candidate for CTA secondary to her severe renal dysfunction. Concern for septic shock is the cause of her symptomatology. Patient was bolused with a second liter of LR without significant improvement blood pressure initially went to the 90s, but then dropped back down to the 50s. Decision was made to place central line and art line. Art line was placed in the left wrist, central line in the right IJ. Levophed was started at 10. Will continue to fluid bolus and give the bicarb drip. Broad-spectrum antibiotics of vancomycin Zosyn and doxycycline have been started for coverage. We do not have any ICU beds available here at this time, discussed the case with [facility] critical care team, spoke with Dr. Herman, he agrees with the assessment and plan. Patient will be transferred for further management. At this time symptoms appear inconsistent with ischemic stroke, she is not a candidate for tPA either secondary to her current clinical assessment as well as her history of bleeds. Patient will be transferred to [facility] for further management. I have extensively reviewed the treatment plan with the patient. I have addressed all patient concerns at this time. I have also discussed the plan with the admitting physician and they agree with the current assessment and plan and have agreed to assume responsibility for the patient. All parties demonstrate verbal understanding and agreement with our assessment and plan at this time. The documentation in this chart was dictated using [employer] dictation software. Please excuse any dictation errors. As the [facility] team was literally landing, the patient did develop some mild neck pain. She did not have neck stiffness but she did have some achiness that she certainly did not before. During previous central line administration she was able to move her neck well for flexion extension rotation without any pain or achiness. This appears to be an acute change. Broad-spectrum antibiotics had already been administered. [facility] had arrived, and was ready to fly the patient down to [facility]. I did contact the [facility] team and let them know of the change in physical exam. Mental status remains notably stable. No indication for emergent intubation. Recommend further discussion of potential LP at [facility] for potential meningitis. EKG: Sinus rhythm, rate 79, QT 410, QRS 110, no STEMI. FINDINGS: Single AP portable view. Distal tip the newly placed right jugular central line is at the SVC-RA junction Heart size is slightly prominent, unchanged. No obvious pulmonary infiltrates nor pleural effusions. No pneumothorax. Tejeda rods again noted in the thoracic spine. IMPRESSION: Distal tip of right jugular central line is at the SVC-RA junction No acute pulmonary findings although please note that CT scan performed today revealed subtle infiltrate in the left lower lobe and lingular segment of the upper lobe. No infiltrates in the right lung. No pleural effusions. FINDINGS: CHEST: Scoliosis and Tejeda rods throughout the thoracic spinal column again noted. LUNGS: Right lung is clear. The infiltrate in the right lung which was evident on CT scan of 08/16/2022 has resolved, as has the right pleural effusion.. In addition, the confluent infiltrate which was previously present in the left lower lobe has also resolved. However, presently there is ground-glass infiltrate throughout the left lower lobe as well as in the left upper lobe including the lingular segment. No associated left-side pleural effusion. No significant focal findings in the trachea and mainstem bronchi. No bronchiectasis. MEDIASTINUM: No obvious hilar nor mediastinal adenopathy. No subcarinal adenopathy.Partially visualized thyroid unremarkable. CARDIAC: Heart size is normal. There is no pericardial effusion.Caliber of the thoracic aorta is within normal limits. OSSEOUS: Scoliosis and Tejeda rods in the thoracic spine.. ABDOMEN: There is no ascites. LIVER: There are no obvious focal hepatic lesions evident of this noninfused study. GALLBLADDER/BILIARY: No obvious gallbladder pathology. CBD is not dilated. PANCREAS: No evidence of obvious pancreatic mass nor dilatation of the pancreatic duct. SPLEEN: There is splenomegaly. Craniocaudal measurement of the spleen is 16.6 cm. ADRENALS: There are no significant adrenal masses. KIDNEYS: No calculi nor hydronephrosis. No obvious solid renal masses. No cysts evident. ABDOMINAL AORTA: Abdominal aorta is not enlarged. LYMPH NODES: There is no retroperitoneal nor para-aortic adenopathy. ABDOMINAL WALL/GI: No evidence of significant anterior abdominal wall nor inguinal hernia. No evidence of bowel obstruction. PELVIS: LYMPH NODES: There is no intrapelvic nor inguinal adenopathy. GI: No evidence of appendicitis.As abundant fecal material in the left side of the colon and sigmoid. No evidence of significant diverticular disease. URINARY BLADDER: No calculi nor obvious masses evident REPRODUCTIVE: Uterus size normal. Ovarian size normal. Small calcifications are noted in both ovaries. There is no fluid in the adnexal regions and cul-de-sac. OSSEOUS: No fractures. No significant osseous lesions. Subtle evidence of sacroiliitis. IMPRESSION: 1. Compared to prior CT scan of 08/16/2022 there has been clearing of the previously present confluent bilateral lung infiltrates and right pleural effusion. Presently the right lung is clear, however, there is now different type of infiltrate throughout the left lower lobe as well as the superior lingular segment of the left lung, this being patchy/ground-glass. No associated pleural effusion. No significant secretions evident in the trachea and mainstem bronchi. No intrathoracic adenopathy at this time. 2. There is splenomegaly again noted. No adenopathy. FINDINGS: There are no skull fractures. There is no fluid in the visualized paranasal sinuses. Again noted is an endovascular stent throughout the length of the left intra cavernous internal carotid artery. There is also again noted marker devices in the proximal and distal aspects of the intra cavernous right internal carotid artery as well as embolization coil material again noted within the intra cavernous right internal carotid artery. There is no evidence of intracranial hemorrhage, mass effect, or shift of midline structures. There are no extra-axial fluid collections. The ventricles are not enlarged or shifted and there is no blood within the ventricular system nor within the basal cisterns. There is unchanged abnormal hypodensity in the right frontal lobe convexity from prior infarct, unchanged. No new areas of obvious new infarct nor hemorrhage in the brain, intra or extra-axial. Two findings in the orbits. IMPRESSION: No acute intracranial findings. Again noted is endovascular stent throughout the length of the intracavernous left internal carotid artery as well as embolization coil material within the intracavernous right internal carotid artery. Right frontal lobe convexity infarct again noted, unchanged. No evidence of intracranial hemorrhage, intra or extra-axial and no obvious new infarcts evident. Quality:SDOH Health Related Social Needs: No Data to Display Critical Care Time Critical Care Time Critical Care Time: Yes Total Critical Care Time: 90 Attestation: Upon my evaluation, this patient had a high probability of imminent or life- threatening deterioration, which required my direct attention, intervention, and personal management. I have personally provided 90 minutes of critical care time exclusive of time spent on separately billable procedures. Time includes review of laboratory data, radiology results, discussion with consultants, and monitoring for potential decompensation. Interventions were performed as documented. [facility] All Active Problems (Updated 12/27/23 @ 23:49 by Woody Mo DO) Dehydration (Acute) Pneumonia (Acute) Acute renal failure (Acute) Septic shock (Acute) Nocturnal hypoxia (Acute) Asymptomatic bacteriuria (Acute) Encephalopathy acute (Acute) Dysphagia (Acute) Left hemiparesis (Acute) Nodule of right lobe of thyroid gland (Acute) Lumbosacral spondylosis without myelopathy (Acute) CVA (cerebrovascular accident) (Chronic) TIA (transient ischemic attack) (Acute) Opioid dependence (Chronic) QT prolongation (Acute) Pneumonia due to COVID-19 virus (Acute) Allergic reaction (Acute) Medication overuse headache (Acute) Chronic headache (Chronic) PFO (patent foramen ovale) (Chronic) Hypersomnia (Acute) Altered mental status (Acute) Abnormal movements (Acute) Right hemiparesis (Acute) Discharge planning issues (Acute) DVT prophylaxis (Acute) Back pain (Acute) Atypical chest pain (Acute) Acute focal neurological deficit (Acute) Stroke-like symptom (Acute) Acute right-sided muscle weakness (Acute) Acute CVA (cerebrovascular accident) (Acute) Status migrainosus (Acute) Stroke (Chronic) Dyspepsia (Acute) Acute febrile illness (Acute) Nephrolithiasis (Chronic) Scoliosis (Chronic) PTSD (post-traumatic stress disorder) (Chronic) History of intravenous drug abuse (Chronic) Depression (Chronic) Asthma (Chronic) Migraine headache with aura (Chronic ~2000) Hepatitis C infection (Chronic) Chronic daily headache (Chronic) Opioid dependence in controlled environment (Chronic) Medical History Migraine Personal history of urinary calculi Opioid dependence in remission Hx of hepatitis C Anxiety Arthralgia of multiple sites History of prediabetes Staphylococcal pneumonia DVT of upper extremity (deep vein thrombosis) Sleep apnea Renal insufficiency GERD (gastroesophageal reflux disease) Hypomagnesemia History of intracranial aneurysm Tachycardia Cardiomyopathy Cocaine abuse Insomnia related to another mental disorder Acute adjustment disorder with anxiety Bipolar 1 disorder Obesity Chronic constipation Polyarthralgia SOB (shortness of breath) Lumbar back pain Poor dentition Dental abscess Thyroid nodule Asthma, chronic Tinea Stress incontinence Knee joint pain Secondary amenorrhea Arthritis Anemia Lung nodule Prediabetes Hypoxia Brain TIA Bacterial pneumonia Atrial septal aneurysm Chronic systolic CHF (congestive heart failure) EF 50% in 08/2018 - [facility] [place] Seizures Aneurysm of ophthalmic artery L, s/p stent Intracranial aneurysm Spondylosis of lumbar spine SVT (supraventricular tachycardia) S/p ablation ADD (attention deficit disorder) Fibromyalgia Chronic pain Therapeutic opioid induced constipation Community acquired bacterial pneumonia Blood bacterial culture positive Surgical History History of bunionectomy of left great toe H/O lithotripsy Status post ablation operation for arrhythmia SVT History of S/P cystoscopy with ureteral stent placement History of cerebral aneurysm repair (~2014) rt paraphthalmic artery [place] [facility] [place] Status post thoracic spinal fusion S/P tubal ligation Family History Paternal Aunt Cerebral aneurysm Diabetes Hypertension Maternal Aunt Migraines Bipolar 1 disorder Maternal Grandmother Heart disease Hypertension Migraines Paternal Grandmother Heart disease Diabetes Father Diabetes Hypertension Hyperlipidemia Alcohol use disorder Depression Maternal Grandfather Hypertension Hyperlipidemia Alcohol use disorder Paternal Uncle Colon cancer Paternal Grandfather Hypertension Fibromyalgia Diabetes Bipolar 1 disorder Brother Migraines Mother Migraines Social History Smoking/Tobacco Use Status: Current every day Tobacco Type: cigarettes Quit status: considering quitting Smoking risk assessment performed?: Yes (0.5 ppd) Alcohol Intake: current Alcohol Intake frequency: holidays/special occasions only Alcohol type: wine Details: pt reports social use Drug use: Current Sobriety Substance use type: former substance user, marijuana, crack/cocaine, heroin, opiates and IV drugs Details: former heroin and cocaine user, pt states that she has been sober 3 years as of 07/2022. only drugs that she uses currently is marijuana Household members: none Number of Children: 3 Do you feel safe at home: Yes Do you feel safe in your relationship?: Yes History History 2 Para 3 Hx # Term Pregnancies 2 Multiple births Hx # Pregnancies Ectopic pregnancies AB induced Hx Number of Living Children 3 AB spontaneous
[2023-12-27 20:11] LABS: Troponin I < 50 ng/L (< or =60)
--- NOTE | 2023-12-27 20:11 | DI.VRAD_ITS ---
PROCEDURE INFORMATION: Exam: XR Chest Exam date and time: 12/27/2023 7:18 PM Age: 33 years old Clinical indication: Device placement; Prior surgery; Surgery date: 6+ months; Surgery type: Spine surgery; Patient HX: S/P central line placement TECHNIQUE: Imaging protocol: Radiologic exam of the chest. Views: 1 view. COMPARISON: CT CHEST/ABD/PEL WO 12/27/2023 5:40 PM FINDINGS: Tubes, catheters and devices: Right jugular central venous catheter is identified with its tip in the right atrium. Lungs: Unremarkable. No consolidation. Pleural spaces: Unremarkable. No pleural effusion. No pneumothorax. Heart/Mediastinum: Heart is prominent. Bones/joints: Surgical hardware is identified in the thoracic spine. IMPRESSION: 1. No evidence for acute infiltrates or effusions. 2. Right jugular central catheter as detailed above. 3. There is no evidence for pneumothorax. Dictated and Authenticated by: Talat Hodges MD. Ordering:ALBA Mckay MD
[2023-12-27] MEDS: Norepinephrine in D5W 8 MG/250 ML BAG 9.375 MG IV (20:13)
[2023-12-27] MEDS: PIPERACILLIN/TAZO 3.375 GM in Normal Saline 50 ML IVPB (20:14)
[2023-12-27] MEDS: DOXYCYCLINE 100 MG in Normal Saline 100 ML IVPB (20:15)
[2023-12-27 20:16] LABS: Procalcitonin 0.6 ng/mL
[2023-12-27 20:18] LABS: Creatine Kinase 511 U/L (26-192)
[2023-12-27 20:19] LABS: ETHANOL BLOOD < 3.0 mg/dL (<10)
[2023-12-27] MEDS: VANCOMYCIN 2,000 MG in Normal Saline 500 ML 333.3333 MG IVPB (20:34)
[2023-12-27] MEDS: Sodium Bicarbonate 50 MEQ/50 ML SYR 150 MEQ IVP (20:40)
--- NOTE | 2023-12-27 20:48 | NUR.NOTE ---
Nursing Note: Late entry Assumed care of the pt, pt was able to speak and tell me about the events that lead her to come to the hospital. the pt stated that past few days she has been feeling weak and increased falls, stated due to her weakness. pt has slurred speech, able to follow commands with upper extremities, but not able to life her leg, but could move them about the bed her legs, +sensation. pt lethargic and at times decreased rr with drop in SpO2 into the 80s, pt placed on 4L NC increased slightly but then swithed to air mask at 2L per MD, pt maintaining SpO2 at 100%. While at CT the pt BP dropped into the low 60s, pt had only 1 iv and x1 liter NS During CT pt had x2 periods of apnea and needed sternal rub to wake the pt. numerous attempt by this nurse to gain 2nd line unable and the Chely notified of need for central line and also a-line blood cultures x2 drawn and sent IV levo begun at 5mcg, improvement of BP. pt has 16fr spicer placed pt remains lethargic and difficult rouse, the pt did stated earlier ion my care that she missed her methadone dose.
[2023-12-27] MEDS: Normal Saline 500 ML IV (20:50)
[2023-12-27 21:24] LABS: Bilirubin Moderate (Negative); Blood Negative (Negative); Clarity Cloudy (Clear); Glucose Negative (Negative); Ketones Trace mg/dL (Negative); Leukocyte Esterase Negative (Negative); Nitrite Negative (Negative); Specific Gravity >= 1.030 (1.005-1.025); Urobilinogen 0.2 mg/dL (Up to 0.2)
[2023-12-27 21:45] LABS: *AMPHETAMINES SCREEN URINE Positive (Negative); *BARBITURATES SCREEN URINE Negative (Negative); *BENZODIAZEPINES SCREEN URINE Negative (Negative); Cannabinoids THC Negative (Negative); Cocaine Screen,Urine Positive (Negative); METHADONE URINE SCREEN Positive (Negative); OPIATES URINE SCREEN Negative (Negative)
[2023-12-27 21:46] LABS: Tricyclic Antidepressants Positive (Negative)
[2023-12-27 21:48] LABS: Bacteria Moderate HPF (Negative); C & S Indicated? No/Sq. Contamination; Casts 3-5 Hyaline LPF (Negative); Crystals Many Calcium Oxalate HPF (Negative); Epithelial Cells Many HPF (Negative); Mucus Negative (Negative); RBC 0-2 HPF (0-2); WBC 0-2 HPF (0-5)
== END 2023-12-27 21:53 | disposition short-term general hospital (02) ==
PROVIDERS: Emergency Provider Student in an Organized Health Care Education/Training Program; PCP Nurse Practitioner Family
DX: J18.9 Pneumonia, unspecified organism (principal); R65.21 Severe sepsis with septic shock; N17.9 Acute kidney failure, unspecified; E86.0 Dehydration; Z86.73 Personal history of transient ischemic attack (TIA), and cerebral infarction without residual deficits; Z79.01 Long term (current) use of anticoagulants; Z79.82 Long term (current) use of aspirin; Z98.1 Arthrodesis status
CPT/HCPCS: 36573; 36620; 71045; 71250; 80053; 80307; 82550; 82805; 82962; 84145; 87040; 93005; 96365; 96368; 96375; 99291; 99292; 70450; 74176; 80320; 81003; 81015; 83880; 84443; 84484; 85025; 85610; 85730; 93010; J2543; J3370

== ENCOUNTER 2024-07-10 12:06 | Emergency (ER) | payer MEDICARE, MEDICAID, SELFPAY ==
[2024-07-10] VITALS (33 sets, daily range): BP systolic 108–129; BP diastolic 56–82; PULSE 66–91; RESP 9–26; TEMP 36.2; O2SAT 91–100
--- NOTE | 2024-07-10 12:30 | RT.EKG_ITS ---
APPROVED REPORT Exam: Resting ECG Reason for Exam: syncope Patient Location: E HR:87 bpm ECG Measurements Heart Rate 87 AXIS MA 136 P 3 QRSd 100 QRS -23 QT 381 T 39 QTc 459 Conclusion Sinus rhythm, rate 87 No interval abnormalities No ectopy No STEMI No changes from prior
--- NOTE | 2024-07-10 12:52 | W.ED.GENAD ---
Discharge Plan Disposition Patient Disposition: Home Condition: Improving Discharge Details Clinical Impression: Vertigo, Dental infection Primary Care Provider: SORAIDA ALMEIDA ED Provider: Mony Kelly Home Meds and New Rx's Prescriptions: New meclizine 25 mg tablet 25 mg PO QID PRN (Reason: dizziness) Qty: 10 0RF penicillin V potassium 500 mg tablet 500 mg PO QID 6 Days Qty: 24 0RF Continued ferrous sulfate 325 mg (65 mg iron) tablet 325 mg PO DAILY Taltz Autoinjector 80 mg/mL auto-injector 80 mg subcut Q4W escitalopram oxalate 10 mg tablet 10 mg PO DAILY aspirin 81 mg tablet,delayed release (DR/EC) 81 mg PO DAILY metoprolol succinate 25 mg tablet extended release 24 hr 50 mg PO BID diclofenac sodium [Voltaren Arthritis Pain] 1 % gel 2 g topical QID Rx Instructions: apply to single elbow, wrist or hand; for hand includes palm/fingers/back of hand albuterol sulfate 90 mcg/actuation HFA aerosol inhaler 2 puff inhalation Q6H PRN lisinopril 5 mg tablet 5 mg PO DAILY methadone 10 mg/5 mL solution 90 mg PO DAILY olanzapine 10 mg tablet 15 mg PO QHS Relistor 150 mg tablet 150 mg PO DAILY sennosides-docusate sodium [Senexon-S] 8.6-50 mg tablet 2 tab-cap PO DAILY clopidogrel [Plavix] 75 mg tablet 75 mg PO DAILY Qty: 60 0RF hydroxyzine HCl 25 mg tablet 25 mg PO DAILY cyclobenzaprine 5 mg Tablet 5 mg PO BID acetaminophen 500 MG tablet 650 mg PO Q6H epinephrine 0.3 mg/0.3 mL auto-injector 0.3 mg IM ONCE PRN Rx Instructions: as a single dose; may repeat once pregabalin 150 mg capsule 150 mg PO BID Patient Comments: TAKE 1 CAP BY MOUTH TWO TIMES A DAY topiramate [Topamax] 50 mg tablet 50 mg PO BID Qty: 10 0RF Discharge Instructions Instructions: Tooth Abscess ED, Vertigo ED Additional Instructions: Your labs and exam are reassuring here today. I believe that your dizziness is associated with your recent illness and ear pain. I do not see evidence of stroke at this time or other more serious cause. I have prescribed Meclizine to help with the vertigo, this helped you while here. You may take this up to four times a day and may be taken as needed. In regard to your dental pain, I have prescribed antibiotics. I do not see an abscess at this time. I encourage you to call dentist and be evaluated as soon as possible, list of local dentists is attached. If you develop fevers/chills, headache, inability to stay hydrated or other new/worsenign symptoms, please seek care urgently once again. Otherwise, please call dentist and also follow up with primary care next week for reevaluation. Referrals: SORAIDA ALMEIDA CONTROL MANAGER [Primary Care Provider] - Discharge Data Discharge Date/Time-TO BE ENTERED AT DEPARTURE: 07/10/24 15:46 HPI General Date/Time Provider Initiated Documentation: 07/10/24 12:16. Limitations to Documentation: no limitations. Information obtained by: patient, RN notes reviewed and old records reviewed. History of Present Illness 33 year old F presents to the emergency department with the chief complaint of dizziness, fatigue, dental pain, described as moderate and similar to prior episodes, Quality is described as aching (front tooth), Patient reports no radiation. Patient started experiencing this day(s) and it has been constant. Immobilization improves symptom(s), Movement worsens symptoms (dizziness worse with movement) . Patient notes malaise and nausea/vomiting; denies chest pain, cough, diaphoresis, fever/chills, headaches, rash, shortness of breath and syncope. Patient did receive the following treatments prior to arrival, none Related Data Home Medications ?Medication ?Instructions ?Recorded ?Confirmed cyclobenzaprine 5 mg tablet 5 mg PO BID 07/14/19 07/10/24 clopidogrel 75 mg tablet (Plavix) 75 mg PO DAILY #60 tabs 04/01/21 07/10/24 acetaminophen 500 mg tablet 650 mg PO Q6H 07/28/21 07/10/24 epinephrine 0.3 mg/0.3 mL 0.3 mg IM ONCE PRN 07/28/21 07/10/24 injection, auto-injector pregabalin 150 mg capsule 150 mg PO BID 07/28/21 07/10/24 topiramate 50 mg tablet (Topamax) 50 mg PO BID #10 tabs 07/30/21 07/10/24 ferrous sulfate 325 mg (65 mg 325 mg PO DAILY 12/21/22 03/19/25 iron) tablet ixekizumab 80 mg/mL subcutaneous 80 mg subcut Q4W 01/09/23 07/10/24 auto-injector (Taltz Autoinjector) aspirin 81 mg tablet,delayed 81 mg PO DAILY 02/23/23 07/10/24 release escitalopram oxalate 10 mg tablet 10 mg PO DAILY 02/23/23 07/10/24 metoprolol succinate 25 mg 50 mg PO BID 02/23/23 07/10/24 tablet,extended release 24 hr albuterol sulfate 90 mcg/actuation 2 puff inhalation Q6H PRN 09/27/23 07/10/24 aerosol inhaler diclofenac sodium 1 % topical gel 2 g topical QID 09/27/23 07/10/24 (Voltaren Arthritis Pain) lisinopril 5 mg tablet 5 mg PO DAILY 09/27/23 07/10/24 methadone 10 mg/5 mL oral solution 90 mg PO DAILY 09/27/23 07/10/24 methylnaltrexone 150 mg tablet 150 mg PO DAILY 09/27/23 07/10/24 (Relistor) olanzapine 10 mg tablet 15 mg PO QHS 09/27/23 07/10/24 sennosides 8.6 mg-docusate sodium 2 tab-cap PO DAILY 09/27/23 07/10/24 50 mg tablet (Senexon-S) hydroxyzine HCl 25 mg tablet 25 mg PO DAILY 07/10/24 07/10/24 meclizine 25 mg tablet 25 mg PO QID PRN dizziness #10 tabs 07/10/24 penicillin V potassium 500 mg 500 mg PO QID 6 days #24 tabs 07/10/24 tablet Previous Rx's ?Medication ?Instructions ?Recorded clopidogrel 75 mg tablet (Plavix) 75 mg PO DAILY #60 tabs 04/01/21 topiramate 50 mg tablet (Topamax) 50 mg PO BID #10 tabs 07/30/21 meclizine 25 mg tablet 25 mg PO QID PRN dizziness #10 tabs 07/10/24 penicillin V potassium 500 mg 500 mg PO QID 6 days #24 tabs 07/10/24 tablet Allergies Allergy/AdvReac Type Severity Reaction Status Date / Time meperidine HCl (From Demerol) Allergy Severe Anaphylaxsi Verified 07/10/24 12:33 s venom-honey bee (bee venom Allergy Severe anaphylaxis Verified 07/10/24 12:33 (honey bee)) lithium AdvReac Mild NAUSEA Verified 07/10/24 12:33 sertraline HCl (From Zoloft) AdvReac Mild NIGHTMARES Verified 07/10/24 12:33 General Stated Complaint: Dizzy/Sync KALINA: 3 Review of Systems Constitutional Constitutional: Reports as per HPI, Denies chills, Reports fatigue, Denies fever(s), Denies frequent falls and Denies weakness Eyes Eyes: Reports as per HPI, Denies blurry vision and Denies change in vision ENT Ears, Nose, Mouth, and Throat: Denies neck pain Cardiovascular Cardiovascular: Reports as per HPI, Denies chest pain, Denies lightheadedness, Denies radiating jaw, neck or arm pain, Denies dyspnea and Denies dyspnea on exertion Respiratory Respiratory: Reports as per HPI, Denies chest congestion, Denies cough, Denies dyspnea and Denies dyspnea on exertion Gastrointestinal Gastrointestinal: Reports as per HPI, Denies abdominal pain, Denies change in bowel habits and Denies vomiting Musculoskeletal Musculoskeletal: Reports as per HPI, Denies back pain, Denies myalgias, Denies muscle cramps, Denies neck pain and Denies numbness Integumentary/Breasts Skin/Breast: Reports as per HPI and Denies rash Neurologic Neurologic: Reports as per HPI, Denies abnormal movements, Denies abnormal speech, Denies behavioral changes, Denies confusion, Denies frequent falls, Denies localized weakness, Denies numbness, Denies sensory deficit and Denies weakness Psychiatric Psychiatric: Denies behavioral changes and Denies confusion Endocrine Endocrine: Reports fatigue Exam Const General: cooperative, healthy appearing, uncomfortable, no acute distress, well developed and well groomed Nutritional Appearance: well nourished and obese Orientation: alert, awake and oriented x3 [facility] Head: normal to inspection, no palpable skull fracture, normocephalic and atraumatic Ears: hearing grossly normal bilaterally, external ears normal and TM's normal bilaterally General nose exam: external nose normal Mouth: oral mucosae normal and moist mucous membranes Throat: posterior oropharynx normal Eyes General: appearance normal, both eyes and all related structures Alignment and Position: alignment normal Periorbital: periorbital findings normal Eyelids: eyelids normal Sclera: sclerae normal Cornea: corneas normal Pupils: PERRL EOM: EOM intact bilaterally Neck Neck: normal visual inspection, full ROM, no lymphadenopathy and no meningeal signs Resp Effort & Inspection: normal respiratory effort, able to speak in complete sentences and no respiratory distress Auscultation: clear to auscultation bilaterally, no rales, no rhonchi and no wheezes Cardio Rate: regular rate Rhythm: regular rhythm Heart Sounds: S1 normal and S2 normal GI Inspection: normal to inspection and non-distended Palpation: soft, no hepatosplenomegaly, not firm, no guarding, not rigid and nontender Percussion: normal to percussion Auscultation: normal bowel sounds Back/Spine/Pelvis Cervical Spine: normal cervical lordosis and cervical ROM normal Skin General skin exam: no rashes or lesions noted Neuro General: patient alert, patient awake and patient oriented x3 Cranial Nerves: CN's II-XI intact bilaterally Cognition: normal cognition Speech: speech normal Gait: normal gait Motor: muscle tone normal throughout, strength 5/5 throughout, no pronator drift, no movement abnormalities noted and no fasciculations Sensory Exam: no sensory deficits noted Extrem General: normal to inspection, capillary refill normal, no pedal edema and no calf tenderness Course Vital Signs Vital signs: Vital Signs Temperature 36.2 C L 07/10/24 12:28 Pulse 82 07/10/24 12:28 Respiratory Rate 18 07/10/24 12:28 Blood Pressure 120/82 07/10/24 12:28 Pulse Oximetry 98 07/10/24 12:28 Temperature 36.2 C L 07/10/24 12:28 Temperature Source Oral 07/10/24 12:28 Pulse 82 07/10/24 12:28 Respiratory Rate 18 07/10/24 12:28 Blood Pressure 120/82 07/10/24 12:28 Blood Pressure Position Sitting 07/10/24 12:28 Pulse Oximetry 98 07/10/24 12:28 Pain Level 0 07/10/24 12:28 Medical Decision Making Patient is a pleasant 33-year-old female with past medical history significant for CVA, opioid dependence, chronic headaches, PFO, hypersomnia, GERD, cardiomyopathy, bipolar, PTSD, depression, asthma, hepatitis C, presented with chief complaint of dizziness with movement, fatigue. She reports the last time she had similar symptoms she was septic. Patient was seen here in December of last year and [place] [facility] [place] Patient had septic shock of unknown etiology, possibly associated with pneumonia vs. other etiology. At that time, patient had acute renal failure as well- she is concerned this ahs developed again. She has f/u with her PCP, states that her medications and medical issues have b3een stable. Denies URI symptoms. States that she started having left front tooth tenderness a few days ago, is concerned for possible absces. States she has poor dentition at baseline and is trying to schedule to have extraction. She attributes to chronic methadone use. Patient is on Plavix, no missed doses, on ixekizumab. She denies CP, SOB. No fevers/chills. States she has been very fatigued, slept most of yesterday. No sore throat, neck pain. Reports chronic CUADRA but no acute change in these. No change in bowel or bladder habits. S/p tubal ligation. On exam, patient appears non-toxic. Hemodynamically stable. Her neuro exam was concerning for some horizontal nystagmus after she moved and had recurrence of her dizziness which she describes as, room spinning. This suggests peripheral cause. She describes vertigo in the past. Lungs are clear, normal cardiac exam. She does have mild LE edema, non-pitting. She states this is chronic but slightly worse- associates with known CHF. She has slight erythema near the #9 tooth but no appreciable swelling or findings to suggest abscess. Poor dentition. Patient is otherwise neurologically intact and does not appear to be acutely septic. However, with her complex medical history will obtain labs. I do not see need for imaging at this point but may decide abuse based on laboratory results. Will give meclizine for vertigo. Labs reviewed. No leukocytosis. Stable H&H. CMP without significant abnormality. Patient was particularly concerned about kidney function with creatinine is 1. Her alk phos is slightly elevated at 128 this is baseline for the patient. Troponin within normal limits. Remains stable x 2. BNP is within normal limits, given her history of CHF and self-reported increased fatigue and lower extremity swelling, this very reassuring that she is not having any type of CHF exacerbation. I discussed these findings with the patient. She is feeling significantly improved after the p.o. meclizine. She and I were then able to ambulate about the department and while she has some slight room spinning with fast movements, overall she is feeling significantly better and does appear objectively improved. Seems to have more energy and feels ready for discharge at this point. With her history of CVA, I did consider this as a cause of her dizziness but exam is very reassuring this is the findings to suggest more of a peripheral cause. She is now endorsing that she has had slight illness for the past week which did include some left ear pain, further bolstering the likely source being a benign paroxysmal vertigo. She and I did discuss further imaging again, particularly given her history, and she would prefer to be discharged to home at this point with follow-up with her primary care. In regard to her poor dentition, will give her list for local dentist was able to call and schedule follow-up appointment. Will also prescribe penicillin she does have area of increased tenderness to begin a few days ago. Did not appreciate an abscess at this point, this may benefit her moving forward with a dentist. Again, return precautions were discussed with the patient. Prescribed penicillin and the meclizine. All of her questions and concerns were addressed and she is in agreement this plan. Encourage follow-up with primary care in 1 week. This documentation was generated using [employer] dictation system, please disregard any oddities of phrase or misspellings. Quality:SDOH Health Related Social Needs: No Data to Display PFSH All Active Problems (Updated 07/10/24 @ 15:23 by RICCO Dunne) Dental infection (Acute) Vertigo (Acute) Nocturnal hypoxia (Acute) Asymptomatic bacteriuria (Acute) Encephalopathy acute (Acute) Dysphagia (Acute) Left hemiparesis (Acute) Nodule of right lobe of thyroid gland (Acute) Lumbosacral spondylosis without myelopathy (Acute) CVA (cerebrovascular accident) (Chronic) TIA (transient ischemic attack) (Acute) Opioid dependence (Chronic) QT prolongation (Acute) Pneumonia due to COVID-19 virus (Acute) Allergic reaction (Acute) Medication overuse headache (Acute) Chronic headache (Chronic) PFO (patent foramen ovale) (Chronic) Hypersomnia (Acute) Altered mental status (Acute) Abnormal movements (Acute) Right hemiparesis (Acute) Discharge planning issues (Acute) DVT prophylaxis (Acute) Back pain (Acute) Atypical chest pain (Acute) Acute focal neurological deficit (Acute) Stroke-like symptom (Acute) Acute right-sided muscle weakness (Acute) Acute CVA (cerebrovascular accident) (Acute) Status migrainosus (Acute) Stroke (Chronic) Dyspepsia (Acute) Acute febrile illness (Acute) Nephrolithiasis (Chronic) Scoliosis (Chronic) PTSD (post-traumatic stress disorder) (Chronic) History of intravenous drug abuse (Chronic) Depression (Chronic) Asthma (Chronic) Migraine headache with aura (Chronic ~2000) Hepatitis C infection (Chronic) Chronic daily headache (Chronic) Opioid dependence in controlled environment (Chronic) Medical History Migraine Personal history of urinary calculi Opioid dependence in remission Hx of hepatitis C Anxiety Arthralgia of multiple sites History of prediabetes Staphylococcal pneumonia DVT of upper extremity (deep vein thrombosis) Sleep apnea Renal insufficiency GERD (gastroesophageal reflux disease) Hypomagnesemia History of intracranial aneurysm Tachycardia Cardiomyopathy Cocaine abuse Insomnia related to another mental disorder Acute adjustment disorder with anxiety Bipolar 1 disorder Obesity Chronic constipation Polyarthralgia SOB (shortness of breath) Lumbar back pain Poor dentition Dental abscess Thyroid nodule Asthma, chronic Tinea Stress incontinence Knee joint pain Secondary amenorrhea Arthritis Anemia Lung nodule Prediabetes Hypoxia Brain TIA Bacterial pneumonia Atrial septal aneurysm Chronic systolic CHF (congestive heart failure) [place] [facility] [place] Aneurysm of ophthalmic artery L, s/p stent Intracranial aneurysm Spondylosis of lumbar spine SVT (supraventricular tachycardia) S/p ablation ADD (attention deficit disorder) Fibromyalgia Chronic pain Therapeutic opioid induced constipation Community acquired bacterial pneumonia Blood bacterial culture positive Surgical History History of bunionectomy of left great toe H/O lithotripsy Status post ablation operation for arrhythmia SVT History of S/P cystoscopy with ureteral stent placement History of cerebral aneurysm repair (~2014) rt paraphthalmic artery [place] [facility] [place] Status post thoracic spinal fusion S/P tubal ligation Family History Paternal Aunt Cerebral aneurysm Diabetes Hypertension Maternal Aunt Migraines Bipolar 1 disorder Maternal Grandmother Heart disease Hypertension Migraines Paternal Grandmother Heart disease Diabetes Father Diabetes Hypertension Hyperlipidemia Alcohol use disorder Depression Maternal Grandfather Hypertension Hyperlipidemia Alcohol use disorder Paternal Uncle Colon cancer Paternal Grandfather Hypertension Fibromyalgia Diabetes Bipolar 1 disorder Brother Migraines Mother Migraines Social History Smoking/Tobacco Use Status: Current every day Tobacco Type: cigarettes Quit status: considering quitting Smoking risk assessment performed?: Yes (0.5 ppd) Alcohol Intake: current Alcohol Intake frequency: holidays/special occasions only Alcohol type: wine Details: pt reports social use Drug use: Current Sobriety Substance use type: former substance user, marijuana, crack/cocaine, heroin, opiates and IV drugs Details: former heroin and cocaine user, pt states that she has been sober 3 years as of 07/2022. only drugs that she uses currently is marijuana Household members: none Number of Children: 3 Do you feel safe at home: Yes Do you feel safe in your relationship?: Yes History History 2 Para 3 Hx # Term Pregnancies 2 Multiple births Hx # Pregnancies Ectopic pregnancies AB induced Hx Number of Living Children 3 AB spontaneous PAWSS Have you Been Recently Intoxicated or Drunk Within the Last 30 days?: No Have you Ever Experienced Previous Episodes of Alcohol Withdrawal?: No Have you ever Experienced Withdrawal Seizures?: No Have you ever Experienced Delirium Tremens(DT)s?: No Have you ever undergone Alcohol Rehabilitation Treatment (i.e, inpt ot outpatient treatment programs)?: No Have you ever Experienced Blackouts?: No Have you ever Combined Alcohol with other Downers within the last 90 days?: No Have you ever Combined Alcohol with any other Substance of Abuse during the last 90 days?: No Positive Blood Alcohol level on Presentation? [PCS.BAL]: No Evidence of Increased Autonomic Activity (i.e. HR>120, tremor, sweating, agitation, nausea)?: No Result: 0
[2024-07-10] MEDS: Meclizine 25 MG TAB PO (13:11)
[2024-07-10 13:12] LABS: Abs Immature Grans 0.03 10^3/uL (0.0-0.06); Absolute Basophil Count 0.04 10^3/uL (0.0-0.2); Absolute Eosinophil Count 0.15 10^3/uL (0.0-0.7); Absolute Lymphocyte Count 2.55 10^3/uL (1.2-3.4); Absolute Monocyte Count 0.51 10^3/uL (0.1-0.8); Absolute Neutrophil Count 5.83 10^3/uL (1.2-6.7); Basophils % 0.4 %; Eosinophils % 1.6 %; HCT 41.1 % (36.0-46.0); HGB 13.2 g/dL (11.2-15.7); Immature Grans % 0.3 %; MCH 30.6 pg (27.0-33.0); MCHC 32.1 % (32.0-36.0); MCV 95 fL (80-95); MPV 10.5 fL (8.0-11.0); Monocytes % 5.6 %; Neutrophils % 64.1 %; Platelet Count 286 10^3/uL (130-400); RBC 4.32 10^6/uL (3.93-5.22); RDW 12.8 % (11.7-14.6); RDW-SD 44.6 fL; WBC 9.11 10^3/uL (4.4-10.8)
[2024-07-10 13:24] LABS: Bilirubin Small (Negative); Blood Negative (Negative); Clarity Sl Cloudy (Clear); Glucose Negative (Negative); Ketones Trace mg/dL (Negative); Leukocyte Esterase Trace (Negative); Nitrite Negative (Negative); Specific Gravity >= 1.030 (1.005-1.025); pH 5.5 (5-8)
[2024-07-10 13:34] LABS: Bacteria Moderate HPF (Negative); C & S Indicated? No/Sq. Contamination; Casts Negative LPF (Negative); Crystals Negative HPF (Negative); Epithelial Cells Moderate HPF (Negative); Mucus Trace (Negative); Other Cells Negative (Negative); RBC Negative HPF (0-2)
[2024-07-10 13:35] LABS: ALT 36 U/L (14-59); AST 28 U/L (15-37); Albumin 3.3 g/dL (3.4-5.0); Alkaline Phosphatase 128 U/L (46-116); Anion Gap 8.1 mmol/L (3-11); BUN 27 mg/dL (7-18); Bilirubin, Total 0.5 mg/dL (0.2-1.0); CO2 28.9 mmol/L (21.0-32.0); Calcium 9.8 mg/dL (8.5-10.1); Chloride 103 mmol/L (98-107); Estimated GFR 75.81 (mL/min/1.73m2); Glucose 152 mg/dL (74-106); Magnesium 1.9 mg/dL (1.8-2.4); NT-proBNP 13 pg/mL (<300); Potassium 4.8 mmol/L (3.5-5.1); Sodium 140 mmol/L (136-145); Total Protein 7.8 g/dL (6.4-8.2)
[2024-07-10 13:36] LABS: Troponin I < 4 ng/L (<or=51)
[2024-07-10 14:17] LABS: Troponin I 5 ng/L (<or=51)
[2024-07-10] MEDS: Penicillin V POTASSIUM 500 MG TAB 1500 MG PO (15:40)
[2024-07-10] MEDS: Meclizine 25 MG TAB 75 MG PO (15:41)
== END 2024-07-10 15:46 | disposition home or self-care (01) ==
PROVIDERS: Emergency Provider Physician Assistant; PCP Nurse Practitioner Family
DX: R42 Dizziness and giddiness (principal); K04.7 Periapical abscess without sinus; F11.20 Opioid dependence, uncomplicated; F17.210 Nicotine dependence, cigarettes, uncomplicated; Z86.73 Personal history of transient ischemic attack (TIA), and cerebral infarction without residual deficits; Z86.718 Personal history of other venous thrombosis and embolism; Z79.82 Long term (current) use of aspirin; Z79.02 Long term (current) use of antithrombotics/antiplatelets
CPT/HCPCS: 80053; 93005; 99283; 81003; 81015; 83735; 83880; 84484; 85025; 93010

== ENCOUNTER 2024-12-12 11:14 | Outpatient (CLI) | payer MEDICARE, MEDICAID, SELFPAY ==
[2024-12-12 12:31] LABS: Folate > 20.0 ng/mL (8.6-20.0)
[2024-12-12 13:05] LABS: Iron 80 ug/dL (50-170); Total Iron Binding Capacity 389 ug/dL (250-450); Transferrin Sat 21 % (15-50)
[2024-12-12 13:24] LABS: Abs Immature Grans 0.04 10^3/uL (0.0-0.06); HCT 41.0 % (36.0-46.0); HGB 13.0 g/dL (11.2-15.7); Immature Grans % 0.6 %; MCH 30.3 pg (27.0-33.0); MCHC 31.7 % (32.0-36.0); MCV 96 fL (80-95); MPV 11.1 fL (8.0-11.0); Platelet Count 233 10^3/uL (130-400); RBC 4.29 10^6/uL (3.93-5.22); RDW 13.3 % (11.7-14.6); RDW-SD 46.7 fL; WBC 7.18 10^3/uL (4.4-10.8)
[2024-12-12 13:36] LABS: ALT 38 U/L (14-59); AST 24 U/L (15-37); Albumin 3.3 g/dL (3.4-5.0); Alkaline Phosphatase 133 U/L (46-116); Anion Gap 5.6 mmol/L (3-11); BUN 22 mg/dL (7-18); Bilirubin, Total 0.3 mg/dL (0.2-1.0); CO2 33.4 mmol/L (21.0-32.0); Calcium 10.1 mg/dL (8.5-10.1); Chloride 101 mmol/L (98-107); Estimated GFR 98.48 (mL/min/1.73m2); Glucose 226 mg/dL (74-106); Potassium 4.4 mmol/L (3.5-5.1); Sodium 140 mmol/L (136-145); Total Protein 7.5 g/dL (6.4-8.2)
[2024-12-12 13:47] LABS: Calculated LDL 137 mg/dL (<100); Cholesterol 227 mg/dL (<200); Ferritin 39 ng/mL (8-252); HDL Cholesterol 61 mg/dL (>or=50); Triglyceride 148 mg/dL (<150)
[2024-12-12 13:49] LABS: Hemoglobin A1C 6.1 % (<5.7)
[2024-12-12 19:00] LABS: HIV-1/2 Ag & Ab Screen Negative (Negative)
[2024-12-12 19:38] LABS: Hepatitis A Antibody IgM Negative (Negative); Hepatitis C Ab w Rflx HCV PCR Reactive (Negative)
[2024-12-14 17:00] LABS: TSH, Sensitive 0.7 mIU/L (0.3-4.2)
== END 2024-12-12 11:15 | disposition home or self-care (01) ==
LOC: LBO 11:16
PROVIDERS: PCP Nurse Practitioner Family; Visit Provider Nurse Practitioner Family
DX: I10 Essential (primary) hypertension (principal); D64.9 Anemia, unspecified; E03.9 Hypothyroidism, unspecified; Z86.19 Personal history of other infectious and parasitic diseases
CPT/HCPCS: 36415; 80053; 80061; 86704; 86706; 86709; 86803; 87340; 87389; 87522; 82728; 82746; 83036; 83540; 83550; 84443; 85025